=== PATIENT | female | born 1990 | race American Indian/Alaskan Native ===

== ENCOUNTER 2020-01-17 17:58 | Inpatient (IN) | payer OTHER ==
[2020-01-17] MEDS ORDERED: SODIUM CHLORIDE 0.9% 500 ML 500 ML IV ONE (18:25)
[2020-01-17] MEDS ORDERED: ACETAMINOPHEN 325 MG TAB PO ONE (18:28)
[2020-01-17 18:54] LABS: Basophils % (Auto) 0.3 % (0.0-1.8); Hematocrit 39.6 % (30.3-42.9); Hemoglobin 12.7 gm/dl (10.1-14.3); Lymphocytes % (Auto) 9.3 % (13.4-35.0); Mean Corpuscular HGB Conc 32 % (30-34); Mean Corpuscular Volume 81 fl (79-97); Monocytes # (Auto) 0.4 K/mm3 (0.0-0.8); Monocytes % (Auto) 3.7 % (0.0-7.3); Platelet Count 268 K/mm3 (140-440); Red Blood Count 4.92 M/mm3 (3.65-5.03); Red Cell Distribution Width 13.2 % (13.2-15.2)
[2020-01-17 19:08] LABS: Alanine Aminotransferase 26 units/L (7-56); Albumin 4.1 g/dL (3.9-5); BUN/Creatinine Ratio 14; Blood Urea Nitrogen 13 mg/dL (7-17); Calcium 9.5 mg/dL (8.4-10.2); Hemolysis Index 0
[2020-01-17 19:09] LABS: INR 1.22 (0.87-1.13)
--- NOTE | 2020-01-17 19:49 | XRay Report ---
CHEST 2 VIEWS INDICATION / CLINICAL INFORMATION: possible Sepsis. COMPARISON: None available. FINDINGS: SUPPORT DEVICES: None. HEART / MEDIASTINUM: No significant abnormality. LUNGS / PLEURA: There is airspace opacification in the left upper lobe. No pneumothorax. ADDITIONAL FINDINGS: No significant additional findings. IMPRESSION: 1. Airspace opacity in the left upper lobe suggestive of pneumonia. Signer Name: Kolby Denny MD Signed: 01/17/2020 7:45 PM Workstation Name: [id number]
--- NOTE | 2020-01-17 19:49 | XRay Report ---
XR foot 3+V RT INDICATION / CLINICAL INFORMATION: MAIN: wound to big toe, fever, r/o osteomyelitis. COMPARISON: None available. FINDINGS: BONES/JOINT(S): No acute fracture or subluxation. No significant degenerative changes. No radiographi c evidence of osteomyelitis. Developmental accessory navicular noted. SOFT TISSUES: Skin wound in the great toe. No soft tissue gas or radiopaque foreign body. ADDITIONAL FINDINGS: None. Signer Name: Kolby Denny MD Signed: 01/17/2020 7:45 PM Workstation Name: [id number]
[2020-01-17] MEDS ORDERED: SODIUM CHLORIDE 0.9% 500 ML 500 ML ONE (22:01)
[2020-01-17] MEDS ORDERED: ACETAMINOPHEN 325 MG TAB ONE (22:01)
[2020-01-17] MEDS ORDERED: SODIUM CHLORIDE 0.9% 100 ML IVPB IV STA (22:10)
[2020-01-17] MEDS ORDERED: INSULIN REGULAR, HUMAN 100 UNITS/1 ML IV ONE (22:10)
[2020-01-17] MEDS ORDERED: TETANUS,DIPH,PERTUSS(ACELL) VACCINE 0.5 ML SYRINGE IM ONE (22:11)
--- NOTE | 2020-01-17 22:12 | Emergency Department Report ---
ED General Adult HPI - General Chief complaint: Wound/Laceration Stated complaint: SORE UNDER BIG TOE Time Seen by Provider: 01/17/20 22:01 Source: patient, RN notes reviewed Mode of arrival: Ambulatory Limitations: No Limitations - History of Present Illness Initial comments: The patient is a 29-year-old female. She is not known to myself previously. She has a history of morbid obesity and diabetes. She states that she is not today. She presents to the ER today with a complaint of subacute wound to the plantar aspect of her right great toe. She dropped boxes on the toe about a week and a half ago by accident. She was reportedly seen at an outpatient urgent care center, and she came to the ER today for persistent wound. She apparently received antibiotics. She is not sure of her tetanus vaccination status. There is no complaint of headache, neck pain, chest pain, abdominal pain, shortness of breath, fever and/or cough. As far as she knows, she denies exposure to coronavirus positive patients. The wound is constant, minimally painful, does not radiate anywhere, and does not have exacerbating or relieving factors. -: Gradual, days(s) Location: right, lower extremity Severity scale (0 -10): 0 Consistency: constant, other Improves with: other - Related Data Previous Rx's Medication Instructions Recorded Last Taken Type Azithromycin [Zithromax Z-MAGALY] 250 mg PO DAILY 4 Days #4 pkg 09/12/18 Unknown Rx Cetirizine HCl [ZyrTEC] 10 mg PO QAM 14 Days #14 capsule 09/12/18 Unknown Rx Fluticasone [Flonase] 1 spray NS QDAY 14 Days #1 bottle 09/12/18 Unknown Rx traMADoL [Ultram 50 MG tab] 50 mg PO Q6HR PRN #12 tablet 09/12/18 Unknown Rx Allergies Allergy/AdvReac Type Severity Reaction Status Date / Time No Known Allergies Allergy Verified 09/12/18 00:37 ED Review of Systems ROS: Stated complaint: SORE UNDER BIG TOE Other details as noted in HPI Comment: See history of present illness ED Past Medical Hx - Past Medical History Hx Diabetes: Yes Additional medical history: Obesity. Sinusitis - Surgical History Past Surgical History?: No - Social History Smoking Status: Never Smoker Substance Use Type: None - Medications Home Medications: Home Medications Medication Instructions Recorded Confirmed Last Taken Type Azithromycin [Zithromax Z-MAGALY] 250 mg PO DAILY 4 Days #4 pkg 09/12/18 Unknown Rx Cetirizine HCl [ZyrTEC] 10 mg PO QAM 14 Days #14 capsule 09/12/18 Unknown Rx Fluticasone [Flonase] 1 spray NS QDAY 14 Days #1 bottle 09/12/18 Unknown Rx traMADoL [Ultram 50 MG tab] 50 mg PO Q6HR PRN #12 tablet 09/12/18 Unknown Rx ED Physical Exam - General Limitations: No Limitations General appearance: alert, obese - Head Head exam: Present: atraumatic, normocephalic - Eye Eye exam: Present: normal appearance, EOMI. Absent: nystagmus - ENT ENT exam: Present: normal exam, normal orophraynx, mucous membranes moist, normal external ear exam - Neck Neck exam: Present: normal inspection, full ROM. Absent: tenderness, meningi smus - Respiratory Respiratory exam: Present: normal lung sounds bilaterally. Absent: respiratory distress - Cardiovascular Cardiovascular Exam: Present: normal rhythm, tachycardia, normal heart sounds. Absent: systolic murmur, diastolic murmur, rubs, gallop - GI/Abdominal GI/Abdominal exam: Present: soft. Absent: distended, guarding, rebound, rigid, pulsatile mass - Extremities Exam Extremities exam: Present: full ROM, other (2+ pulses noted in the bilateral upper and lower extremities. There is no palpable cord. negative Homans sign. Muscular compartments are soft. The pelvis is stable.). Absent: normal inspection (On the plantar aspect of the right great toe, there is a circumferential wound, approximately 1.5 x 1.5 cm. There is beefy tissue, without surrounding redness, pus or streaking. The toe itself is nontender.), pedal edema, calf tenderness - Back Exam Back exam: Present: normal inspection, full ROM. Absent: CVA tenderness (L), paraspinal tenderness, vertebral tenderness - Neurological Exam Neurological exam: Present: alert, other (There is no facial droop. The tongue is midline. Extraocular movements are intact bilaterally. There is 5 out of 5 strength in bilateral upper and lower extremities. Sensation is intact to light touch bilateral upper and lower extremities. There is a normal gait.). Absent: motor sensory deficit - Psychiatric Psychiatric exam: Present: normal affect, normal mood - Skin Skin exam: Present: warm ED Course Vital Signs 01/17/20 01/17/20 18:27 21:57 Temperature 103.0 F H 103.1 F H Pulse Rate 145 H Respiratory 20 Rate Blood Pressure 169/103 [Right] O2 Sat by Pulse 98 Oximetry - Reevaluation(s) Reevaluation #1: 01/17/20 22:09 Patient is morbidly obese, however, when ideal body weight is calculated, it translates as the followin lbs [place] Body Weight-->77.5643 Therefore, we will use 77.5643 kg as ideal body weight to dose our resuscitation fluid for sepsis. 01/17/20 22:40 ED Medical Decision Making - Lab Data Result diagrams: 01/17/20 18:28 01/17/20 18:28 Vital Signs 01/17/20 01/17/20 18:27 21:57 Temperature 103.0 F H 103.1 F H Pulse Rate 145 H Respiratory 20 Rate Blood Pressure 169/103 [Right] O2 Sat by Pulse 98 Oximetry Lab Results 01/17/20 01/17/20 01/17/20 Range/Units 18:28 18:28 18:28 WBC 11.0 (4.5-11.0) K/mm3 RBC 4.92 (3.65-5.03) M/mm3 Hgb 12.7 (10.1-14.3) gm/dl Hct 39.6 (30.3-42.9) % MCV 81 (79-97) fl MCH 26 L (28-32) pg MCHC 32 (30-34) % RDW 13.2 (13.2-15.2) % Plt Count 268 (140-440) K/mm3 Lymph % (Auto) 9.3 L (13.4-35.0) % Caldwell % (Auto) 3.7 (0.0-7.3) % Eos % (Auto) 0.0 (0.0-4.3) % Baso % (Auto) 0.3 (0.0-1.8) % Lymph # 1.0 L (1.2-5.4) K/mm3 Caldwell # 0.4 (0.0-0.8) K/mm3 Eos # 0.0 (0.0-0.4) K/mm3 Baso # 0.0 (0.0-0.1) K/mm3 Seg Neutrophils % 86.7 H (40.0-70.0) % Seg Neutrophils # 9.6 H (1.8-7.7) K/mm3 PT 15.6 H (12.2-14.9) Sec. INR 1.22 H (0.87-1.13) VBG pH (7.320-7.420) Sodium 126 L (137-145) mmol/L Potassium 4.0 (3.6-5.0) mmol/L Chloride 89.3 L (98-107) mmol/L Carbon Dioxide 19 L (22-30) mmol/L Anion Gap 22 mmol/L BUN 13 (7-17) mg/dL Creatinine 0.9 (0.7-1.2) mg/dL Estimated GFR > 60 ml/min BUN/Creatinine Ratio 14 % Glucose 397 H (65-100) mg/dL Lactic Acid (0.7-2.0) mmol/L Calcium 9.5 (8.4-10.2) mg/dL Total Bilirubin 0.40 (0.1-1.2) mg/dL AST 27 (5-40) units/L ALT 26 (7-56) units/L Alkaline Phosphatase 57 (35-129) units/L Total Protein 9.0 H (6.3-8.2) g/dL Albumin 4.1 (3.9-5) g/dL Albumin/Globulin Ratio 0.8 % 01/17/20 01/17/20 Range/Units 18:28 18:28 WBC (4.5-11.0) K/mm3 RBC (3.65-5.03) M/mm3 Hgb (10.1-14.3) gm/dl Hct (30.3-42.9) % MCV (79-97) fl MCH (28-32) pg MCHC (30-34) % RDW (13.2-15.2) % Plt Count (140-440) K/mm3 Lymph % (Auto) (13.4-35.0) % Caldwell % (Auto) (0.0-7.3) % Eos % (Auto) (0.0-4.3) % Baso % (Auto) (0.0-1.8) % Lymph # (1.2-5.4) K/mm3 Caldwell # (0.0-0.8) K/mm3 Eos # (0.0-0.4) K/mm3 Baso # (0.0-0.1) K/mm3 Seg Neutrophils % (40.0-70.0) % Seg Neutrophils # (1.8-7.7) K/mm3 PT (12.2-14.9) Sec. INR (0.87-1.13) VBG pH 7.409 (7.320-7.420) Sodium (137-145) mmol/L Potassium (3.6-5.0) mmol/L Chloride (98-107) mmol/L Carbon Dioxide (22-30) mmol/L Anion Gap mmol/L BUN (7-17) mg/dL Creatinine (0.7-1.2) mg/dL Estimated GFR ml/min BUN/Creatinine Ratio % Glucose (65-100) mg/dL Lactic Acid 3.40 H* (0.7-2.0) mmol/L Calcium (8.4-10.2) mg/dL Total Bilirubin (0.1-1.2) mg/dL AST (5-40) units/L ALT (7-56) units/L Alkaline Phosphatase (35-129) units/L Total Protein (6.3-8.2) g/dL Albumin (3.9-5) g/dL Albumin/Globulin Ratio % - EKG Data -: EKG Interpreted by De EKG shows normal: sinus rhythm Rate: tachycardia - EKG Data 01/17/20 22:37 Sinus rhythm, tachycardia, QTC prolonged, motion artifact, high left ventricular voltage, poor R wave progression, the EKG is abnormal, it is not a STEMI, there is no prior for comparison - Radiology Data Radiology results: report reviewed, image reviewed Print Report Referring Physician: ED DOC Patient Name: SANGEETHA SHIPMAN Date of : 1990 Sex: Female Report Date: 2020-01-17 Report Status: Finalized Findings [facility] [address] [place] [address] XRay Report Signed Patient: SANGEETHA SHIPMAN MR#: [id number] : 1990 Acct:[id number] Age/Sex: 29 / F ADM Date: 01/17/20 Loc: ED Attending Dr: Ordering Physician: BRITNEY BOCANEGRA Date of Service: 01/17/20 Procedure(s): XR foot 3+V RT Accession Number(s): [id number] cc: BRITNEY BOCANEGRA Fluoro Time In Minutes: XR foot 3+V RT INDICATION / CLINICAL INFORMATION: MAIN: wound to big toe, fever, r/o osteomyelitis. COMPARISON: None available. FINDINGS: BONES/JOINT(S): No acute fracture or subluxation. No significant degenerative changes. No radiographic evidence of osteomyelitis. Developmental accessory navicular noted. SOFT TISSUES: Skin wound in the great toe. No soft tissue gas or radiopaque foreign body. ADDITIONAL FINDINGS: None. Signer Name: Kolby Denny MD Signed: 01/17/2020 7:45 PM Workstation Name: [id number] Transcribed By: FRANKLIN Dictated By: Kolby Denny MD Electronically Authenticated By: Kolby Denny MD Signed Date/Time: 01/17/201944 DD/ 43 T D/TT: Report Date: 2020-01-17 Report Status: Finalized [facility] [address] [place] [address] XRay Report Signed Patient: SANGEETHA SHIPMAN MR#: [id number] : 1990 Acct:[id number] Age/Sex: 29 / F ADM Date: 01/17/20 Loc: ED Attending Dr: Ordering Physician: LORENZO PHILIP MD Date of Service: 01/17/20 Procedure(s): XR chest routine 2V Accession Number(s): [id number] cc: LORENZO PHILIP MD Fluoro Time In Minutes: CHEST 2 VIEWS INDICATION / CLINICAL INFORMATION: possible Sepsis. COMPARISON: None available. FINDINGS: SUPPORT DEVICES: None. HEART / MEDIASTINUM: No significant abnormality. LUNGS / PLEURA: There is airspace opacification in the left upper lobe. No pneumothorax. ADDITIONAL FIND INGS: No significant additional findings. IMPRESSION: 1. Airspace opacity in the left upper lobe suggestive of pneumonia. Signer Name: Kolby Denny MD Signed: 01/17/2020 7:45 PM Workstation Name: [id number] Transcribed By: FRANKLIN Dictated By: Kolby Denny MD Electronically Authenticated By: Kolby Denny MD Signed Date/Time: 01/17/201944 DD/ 44 TD/TT: - Medical Decision Making Differential diagnosis, including but not limited to: Subacute wound, diabetes, dehydration, hyperglycemia, subclinical pneumonia, urinary tract infection, bacteremia Assessment and plan: 29-year-old female with a primary complaint of subacute minimally painful wound to the plantar aspect of the right great toe. The wound itself does not appear to be superinfected. The patient does not endorse additional symptoms. However, she is found to be tachycardic, febrile, laboratory studies sent prior to my evaluation demonstrate hyperglycemia with pseudohyponatremia, minimal anion gap acidosis, and a left-sided pulmonary infiltrate. Given the magnitude of her abnormal vital signs, concomitant diabetes, metabolic derangement, patient meets criteria for hospitalization. We will treat her empirically for community-acquired pneumonia. She does not endorse any sick contacts or exposures to individuals with coronavirus. She is also given a tetanus vaccination. Explained plan of care to patient, who verbalized understanding. Case is presented to hospital physician, Dr. Taylor Zhu, who has accepted the patient to the medical service. Critical Care Time: Yes Critical care time in (mins) excluding proc time.: 35 Critical care attestation.: If time is entered above; I have spent that time in minutes in the direct care of this critically ill patient, excluding procedure time. ED Disposition Clinical Impression: SIRS (systemic inflammatory response syndrome), Hyponatremia, Hyperglycemia, Pneumonia, Open wound of great toe Disposition: OP ADMIT IP TO THIS HOSP Is pt being admited?: Yes Condition: Serious Instructions: Bacterial Pneumonia (ED) Referrals: PRIMARY CARE, [Primary Care Provider] - 3-5 Days
[2020-01-17] MEDS ORDERED: ONDANSETRON 4 MG/2 ML INJ IV PRN (23:06)
[2020-01-17] MEDS ORDERED: DEXTROSE 50% IN WATER (25GM) 50 ML SYRINGE IV PRN (23:06)
[2020-01-17] MEDS ORDERED: MAGNESIUM HYDROXIDE (MOM) ORAL LIQD UDC PO PRN (23:06)
[2020-01-17] MEDS ORDERED: SODIUM CHLORIDE 0.9% IV ONE (23:15)
--- NOTE | 2020-01-17 23:20 | History and Physical Report ---
History of Present Illness Date of examination: 01/17/20 Date of admission: 01/17/2020 Chief complaint: Right great Toe wound History of present illness: 29-year-old female with known history of diabetes mellitus presenting to the emergency room today complaining of pain on the right big toe. Patient had an injury to the right big toe about 2 to 3 weeks ago when an object fell on the toe. She has gone to an urgent care facility where she was given some antibiot ics namely Bactrim to the right big toe wound. She has noticed that the wound has not improved and she has been having progressive pain. She denies any fever or chills, no nausea vomiting, no cough or shortness of breath, no chest pain. She denies any sick contacts and no recent travel. Work-up in the emergency room reveals hyperglycemia chest x-ray also reveals a right-sided pneumonia with accompanying sepsis. Patient started on empiric IV antibiotics. Past History Past Medical History: diabetes Past Surgical History: No surgical history Social history: no significant social history Family history: hypertension (Mother has Hypertension) Medications and Allergies Allergies Allergy/AdvReac Type Severity Reaction Status Date / Time No Known Allergies Allergy Verified 09/12/18 00:37 Home Medications Medication Instructions Recorded Confirmed Last Taken Type glipiZIDE-Metformin 5-500 mg 500 mg PO BID 01/17/20 01/17/20 Unknown History Active Meds: Active Medications Levofloxacin/Dextrose (Levaquin 750mg/150ml) 750 mg in 150 mls @ 100 mls/hr IV ONCE ONE; Protocol Stop: 01/17/20 23:39 Last Admin: 01/17/20 22:38 Dose: 100 mls/hr Documented by: Sodium Chloride (Nacl 0.9% 1000 Ml) 2,350 mls @ 0 mls/hr IV ONCE ONE Stop: 01/17/20 23:16 Review of Systems Constitutional: no fever, no chills Cardiovascular: no chest pain, no palpitations Respiratory: no cough, no shortness of breath Gastrointestinal: no abdominal pain, no nausea, no vomiting, no diarrhea Genitourinary Female: no dysuria, no hematuria Musculoskeletal: other (Pain on great toe) Integumentary: no rash, no pruritis Neurological: no headaches, no confusion Exam - Constitutional Vitals: Temp Pulse Resp BP Pulse Ox 103.1 F H 126 H 37 H 117/84 98 01/17/20 21:57 01/17/20 23:00 01/17/20 23:00 01/17/20 23:00 01/17/20 23:00 General appearance: Present: no acute distress, well-nourished, obese - EENT Eyes: Present: PERRL, EOM intact ENT: hearing intact, clear oral mucosa, dentition normal - Neck Neck: Present: supple, normal ROM - Respiratory Respiratory effort: normal Respiratory: bilateral: CTA - Cardiovascular Rhythm: regular Heart Sounds: Present: S1 & S2 - Extremities Extremities: no ischemia, pulses intact, pulses symmetrical, No edema, Full ROM Extremity abnormal: ulceration (On plantar aspect of right great toe.) Peripheral Pulses: within normal limits - Abdominal General gastrointestinal: Present: soft, non-tender, non-distended - Integumentary Integumentary: Present: clear, warm, dry - Musculoskeletal Musculoskeletal: strength equal bilaterally - Psychiatric Psychiatric: appropriate mood/affect, intact judgment & insight, cooperative - Neurologic Neurologic: CNII-XII intact, moves all extremities Results - Labs CBC & Chem 7: 01/17/20 18:28 01/17/20 18:28 Labs: Abnormal lab results 01/17/20 01/17/20 01/17/20 Range/Units 18:28 18:28 18:28 MCH 26 L (28-32) pg Lymph % (Auto) 9.3 L (13.4-35.0) % Lymph # 1.0 L (1.2-5.4) K/mm3 Seg Neutrophils % 86.7 H (40.0-70.0) % Seg Neutrophils # 9.6 H (1.8-7.7) K/mm3 PT 15.6 H (12.2-14.9) Sec. INR 1.22 H (0.87-1.13) Sodium 126 L (137-145) mmol/L Chloride 89.3 L (98-107) mmol/L Carbon Dioxide 19 L (22-30) mmol/L Glucose 397 H (65-100) mg/dL Lactic Acid (0.7-2.0) mmol/L Total Protein 9.0 H (6.3-8.2) g/dL 01/17/20 Range/Units 18:28 MCH (28-32) pg Lymph % (Auto) (13.4-35.0) % Lymph # (1.2-5.4) K/mm3 Seg Neutrophils % (40.0-70.0) % Seg Neutrophils # (1.8-7.7) K/mm3 PT (12.2-14.9) Sec. INR (0.87-1.13) Sodium (137-145) mmol/L Chloride (98-107) mmol/L Carbon Dioxide (22-30) mmol/L Glucose (65-100) mg/dL Lactic Acid 3.40 H* (0.7-2.0) mmol/L Total Protein (6.3-8.2) g/dL Assessment and Plan - Patient Problems (1) Open wound of great toe Current Visit: Yes Status: Acute Plan to address problem: We will place a consult to wound care team for evaluation and recommendation. X-ray of the foot did not suggest any osteomyelitis. Patient was also given a tetanus injection. Will place patient on empiric IV antibiotics (2) Pneumonia Current Visit: Yes Status: Acute Plan to address problem: Patient placed on empiric IV antibiotics. We await blood culture result. (3) Hyperglycemia Current Visit: Yes Status: Acute Plan to address problem: We will monitor blood glucose closely. We will also placed on IV fluid. (4) Hyponatremia Current Visit: Yes Status: Acute Plan to address problem: Possibly secondary to the hyperglycemia. Will monitor chemistry. We will also continue IV fluid. (5) DVT prophylaxis Current Visit: Yes Status: Acute Plan to address problem: Patient placed on subcutaneous heparin (6) Full code status Current Visit: Yes Status: Acute
[2020-01-17 23:33] LABS: C-Reactive Protein 16.6 mg/dL (0.00-1.30)
[2020-01-17] MEDS ORDERED: SODIUM CHLORIDE 0.9% 100 ML IVPB IV SCH (23:45)
[2020-01-18] MEDS: INSULIN REGULAR, HUMAN 100 UNITS/1 ML SUB-Q SCH ×5 (00:39→23:03)
[2020-01-18] MEDS ORDERED: INSULIN REGULAR, HUMAN 100 UNITS/1 ML ONE (00:39)
[2020-01-18 01:07] LABS: Bilirubin,Urine NEG (Negative); Blood,Urine NEG (Negative); Color,Urine Yellow (Yellow); Hyaline Casts,Urine 1 /LPF; Mucus,Urine FEW /HPF; Urobilinogen,Urine < 2.0 mg/dL (<2.0)
[2020-01-18] MEDS ORDERED: MAGNESIUM SULFATE 2 GM/50 ML BAG IV ONE (01:44)
[2020-01-18] MEDS: ACETAMINOPHEN 325 MG TAB PO PRN ×3 (03:06→23:01)
[2020-01-18] MEDS ORDERED: VANCOMYCIN 2,000 MG in SODIUM CHLORIDE 0.9% 500 ML 500 ML IV SCH ×2 (06:00→18:00)
[2020-01-18] MEDS ORDERED: VANCOMYCIN PHARMACY TO DOSE IV SCH (06:00)
[2020-01-18] MEDS: HEPARIN 5,000 UNIT/1 ML VIAL SUB-Q SCH ×3 (06:28→23:02)
[2020-01-18] MEDS: SODIUM CHLORIDE 0.9% 1000 ML 1,000 ML IV SCH (08:56)
[2020-01-18] MEDS: cefTRIAXone/NS 2 GM/100 ML 2 GM/100 ML BAG IV SCH (09:00)
[2020-01-18] MEDS: AZITHROMYCIN 500 MG in SODIUM CHLORIDE 0.9% 250ML 250 ML IV SCH (09:00)
[2020-01-18 09:05] LABS: BUN/Creatinine Ratio 13; Blood Urea Nitrogen 10 mg/dL (7-17); Calcium 8.4 mg/dL (8.4-10.2); Hemolysis Index 5
[2020-01-18 09:14] LABS: Basophils % (Auto) 0.4 % (0.0-1.8); Eosinophils % (Auto) 0.1 % (0.0-4.3); Hematocrit 33.8 % (30.3-42.9); Lymphocytes # (Auto) 1.2 K/mm3 (1.2-5.4); Lymphocytes % (Auto) 16.6 % (13.4-35.0); Mean Corpuscular HGB Conc 33 % (30-34); Mean Corpuscular Volume 81 fl (79-97); Monocytes # (Auto) 0.2 K/mm3 (0.0-0.8); Monocytes % (Auto) 2.8 % (0.0-7.3); Platelet Count 219 K/mm3 (140-440); Red Blood Count 4.18 M/mm3 (3.65-5.03); Red Cell Distribution Width 12.7 % (13.2-15.2)
--- NOTE | 2020-01-18 13:57 | Progress Note ---
Assessment and Plan /Open wound of great toe, right X-ray of the foot did not suggest any osteomyelitis. Patient was also given a tetanus injection. Continue on empiric IV antibiotics Wound consult requested, will follow culture /Pneumonia, left upper lobe Patient placed on empiric IV antibiotics. We await blood culture result. /Possible sepsis with fever elevated lactic acid Likely from left upper lobe pneumonia and infected right diabetic wound Continue antibiotics for now, will consult ID /Diabetes mellitus type 2 with hyperglycemia We will monitor blood glucose closely. Continue on IV fluid. Place on SSI with regular Accu-Chek / Hyponatremia Possibly secondary to the hyperglycemia. Will monitor chemistry. We will also continue IV fluid. / DVT prophylaxis Patient placed on subcutaneous heparin / Full code status Physical exam: GENERAL: well-developed and obese -[place] female lying on bed appeared to be in no discomfort. HEENT: Normocephalic. Atraumatic. No conjunctival congestion or icterus. Patient has moist mucous membranes. NECK: Supple. Trachea midline. CHEST/LUNGS: Clear to auscultated bilaterally, breathing nonlabored. No wheezes crackles or rhonchi. HEART/CARDIOVASCULAR: Regular in rate and rhythm. S1 and S2 positive. ABDOMEN: Abdomen is soft, nontender. Patient has normal bowel sounds. SKIN: There is no rash. Warm and dry. NEURO: No focal motor deficit. Follows command. MUSCULOSKELETAL: No joint effusion or tenderness. EXTRIMITY: No edema, no cyanosis or clubbing. Right foot with wound dressing PSYCH: Cooperative. Subjective Date of service: 01/18/20 Interval history: Patient seen and examined. Medical records and medication list reviewed. No acute event overnight noted by the RN. Patient denies any chest pain or difficulty breathing. Patient is tolerating diet. Status post wound care today for her diabetes foot Discussed plan of care at bedside with patient. Objective - Constitutional Vitals: Vital Signs - 12hr 01/18/20 01/18/20 01/18/20 02:56 04:06 12:18 Temperature 101.5 F H 99.8 F H 100.7 F H Pulse Rate 108 H 109 H Respiratory 20 22 Rate Blood Pressure 175/92 Blood Pressure 150/89 [Right] O2 Sat by Pulse 98 95 Oximetry - Labs CBC & Chem 7: 01/19/20 13:09 01/18/20 08:30 Labs: Abnormal lab results 03/01/17/20 01/17/20 Range/Units 18:28 18:28 18:28 MCH 26 L (28-32) pg RDW (13.2-15.2) % Lymph % (Auto) 9.3 L (13.4-35.0) % Lymph # 1.0 L (1.2-5.4) K/mm3 Seg Neutrophils % 86.7 H (40.0-70.0) % Seg Neutrophils # 9.6 H (1.8-7.7) K/mm3 PT 15.6 H (12.2-14.9) Sec. INR 1.22 H (0.87-1.13) Sodium 126 L (137-145) mmol/L Chloride 89.3 L (98-107) mmol/L Carbon Dioxide 19 L (22-30) mmol/L Glucose 397 H (65-100) mg/dL POC Glucose (70-105) Hemoglobin A1c (4-6) % Lactic Acid (0.7-2.0) mmol/L Magnesium (1.7-2.3) mg/dL C-Reactive Protein (0.00-1.30) mg/dL Total Protein 9.0 H (6.3-8.2) g/dL 01/17/20 01/17/20 01/17/20 Range/Units 18:28 22:58 22:58 MCH (28-32) pg RDW (13.2-15.2) % Lymph % (Auto) (13.4-35.0) % Lymph # (1.2-5.4) K/mm3 Seg Neutrophils % (40.0-70.0) % Seg Neutrophils # (1.8-7.7) K/mm3 PT (12.2-14.9) Sec. INR (0.87-1.13) Sodium (137-145) mmol/L Chloride (98-107) mmol/L Carbon Dioxide (22-30) mmol/L Glucose (65-100) mg/dL POC Glucose (70-105) Hemoglobin A1c (4-6) % Lactic Acid 3.40 H* 2.30 H* (0.7-2.0) mmol/L Magnesium 1.50 L (1.7-2.3) mg/dL C-Reactive Protein 16.60 H (0.00-1.30) mg/dL Total Protein (6.3-8.2) g/dL 01/18/20 01/18/20 01/18/20 Range/Units 00:46 06:34 08:30 MCH 26 L (28-32) pg RDW 12.7 L (13.2-15.2) % Lymph % (Auto) (13.4-35.0) % Lymph # (1.2-5.4) K/mm3 Seg Neutrophils % 80.1 H (40.0-70.0) % Seg Neutrophils # (1.8-7.7) K/mm3 PT (12.2-14.9) Sec. INR (0.87-1.13) Sodium (137-145) mmol/L Chloride (98-107) mmol/L Carbon Dioxide (22-30) mmol/L Glucose (65-100) mg/dL POC Glucose 338 H 266 H (70-105) Hemoglobin A1c (4-6) % Lactic Acid (0.7-2.0) mmol/L Magnesium (1.7-2.3) mg/dL C-Reactive Protein (0.00-1.30) mg/dL Total Protein (6.3-8.2) g/dL 01/18/20 01/18/20 01/18/20 Range/Units 08:30 08:35 12:30 MCH (28-32) pg RDW (13.2-15.2) % Lymph % (Auto) (13.4-35.0) % Lymph # (1.2-5.4) K/mm3 Seg Neutrophils % (40.0-70.0) % Seg Neutrophils # (1.8-7.7) K/mm3 PT (12.2-14.9) Sec. INR (0.87-1.13) Sodium 135 L D (137-145) mmol/L Chloride (98-107) mmol/L Carbon Dioxide (22-30) mmol/L Glucose 250 H (65-100) mg/dL POC Glucose 224 H 213 H (70-105) Hemoglobin A1c (4-6) % Lactic Acid (0.7-2.0) mmol/L Magnesium (1.7-2.3) mg/dL C-Reactive Protein (0.00-1.30) mg/dL Total Protein (6.3-8.2) g/dL 01/18/20 Range/Units 12:47 MCH (28-32) pg RDW (13.2-15.2) % Lymph % (Auto) (13.4-35.0) % Lymph # (1.2-5.4) K/mm3 Seg Neutrophils % (40.0-70.0) % Seg Neutrophils # (1.8-7.7) K/mm3 PT (12.2-14.9) Sec. INR (0.87-1.13) Sodium (137-145) mmol/L Chloride (98-107) mmol/L Carbon Dioxide (22-30) mmol/L Glucose (65-100) mg/dL POC Glucose (70-105) Hemoglobin A1c 11.6 H (4-6) % Lactic Acid (0.7-2.0) mmol/L Magnesium (1.7-2.3) mg/dL C-Reactive Protein (0.00-1.30) mg/dL Total Protein (6.3-8.2) g/dL
[2020-01-18] MEDS: VANCOMYCIN 2,000 MG in SODIUM CHLORIDE 0.9% 500 ML 500 ML IV SCH (18:33)
[2020-01-18] MEDS: hydrALAZINE 20 MG/1 ML INJ IV PRN (23:02)
[2020-01-19] MEDS: SODIUM CHLORIDE 0.9% 1000 ML 1,000 ML IV SCH ×2 (02:07→13:15)
[2020-01-19] MEDS: VANCOMYCIN 2,000 MG in SODIUM CHLORIDE 0.9% 500 ML 500 ML IV SCH ×2 (06:17→17:33)
[2020-01-19] MEDS: INSULIN REGULAR, HUMAN 100 UNITS/1 ML SUB-Q SCH ×4 (06:17→22:08)
[2020-01-19] MEDS: HEPARIN 5,000 UNIT/1 ML VIAL SUB-Q SCH ×3 (06:18→22:03)
[2020-01-19] MEDS: hydrALAZINE 20 MG/1 ML INJ IV PRN ×3 (06:18→22:30)
[2020-01-19] MEDS: ACETAMINOPHEN 325 MG TAB PO PRN ×4 (09:16→22:05)
[2020-01-19] MEDS: cefTRIAXone/NS 2 GM/100 ML 2 GM/100 ML BAG IV SCH (09:21)
[2020-01-19] MEDS: AZITHROMYCIN 500 MG in SODIUM CHLORIDE 0.9% 250ML 250 ML IV SCH (09:21)
[2020-01-19] MEDS: amLODIPine 10 MG TAB PO SCH (11:53)
[2020-01-19] MEDS: hydrALAZINE 25 MG TAB PO SCH ×2 (13:15→22:06)
--- NOTE | 2020-01-19 14:02 | XRay Report ---
CHEST 1 VIEW INDICATION / CLINICAL INFORMATION: pna. COMPARISON: 01/17/2020 FINDINGS: Exam limited by very low lung volumes and AP, portable technique. No discernible change in heart size . No appreciable pleural fluid. No pneumothorax. Bibasilar atelectatic changes are present, and the d iaphragm is elevated. Left upper lung zone streaky opacity persists without definite change. IMPRESSION: Limited evaluation without definite change in comparison to 01/17/2020. Signer Name: Maico Larios MD Signed: 01/19/2020 1:58 PM Workstation Name: [id number]
[2020-01-19 14:13] LABS: Hematocrit 36.8 % (30.3-42.9); Hemoglobin 11.7 gm/dl (10.1-14.3); Mean Corpuscular HGB Conc 32 % (30-34); Mean Corpuscular Volume 82 fl (79-97); Platelet Count 230 K/mm3 (140-440); Red Blood Count 4.52 M/mm3 (3.65-5.03); Red Cell Distribution Width 13.2 % (13.2-15.2)
--- NOTE | 2020-01-19 15:02 | Progress Note ---
Assessment and Plan /Possible sepsis with high-grade fever elevated lactic acid Likely from left upper lobe pneumonia and infected right diabetic wound Also need to rule out COVID 19 Continue antibiotics for now, consulted ID /COVID -19 rule out -Continue to have high fever with low white count -Discussed with ID and wanted to rule out COVID19 for her -Placed on droplet precaution, ordered influenza test /Open wound of great toe, right X-ray of the foot did not suggest any osteomyelitis. Patient was also given a tetanus injection. Continue on empiric IV antibiotics Wound consult requested, will follow culture /Pneumonia, left upper lobe Patient placed on empiric IV antibiotics. We await blood culture result. /Diabetes mellitus type 2 with hyperglycemia We will monitor blood glucose closely. Continue on IV fluid. Place on SSI with regular Accu-Chek / Hyponatremia Possibly secondary to the hyperglycemia. Will monitor chemistry. We will also continue IV fluid. / DVT prophylaxis Patient placed on subcutaneous heparin / Full code status 01/18 continue to spike high-grade temp, need to rule out covid19, ordered for flu test, consulted ID Physical exam: GENERAL: well-developed and obese -[place] female lying on bed appeared to be in mild discomfort. Appears very lethargic HEENT: Normocephalic. Atraumatic. No conjunctival congestion or icterus. Patient has moist mucous membranes. NECK: Supple. Trachea midline. CHEST/LUNGS: Coarse breath sounds auscultated, breathing slightly labored. Posi tive for Rales, HEART/CARDIOVASCULAR: Regular in rate and rhythm. S1 and S2 positive. ABDOMEN: Abdomen is soft, nontender. Patient has normal bowel sounds. SKIN: There is no rash. Warm and dry. NEURO: No focal motor deficit. Follows command. MUSCULOSKELETAL: No joint effusion or tenderness. EXTRIMITY: No edema, no cyanosis or clubbing. Right foot with wound dressing PSYCH: Cooperative. Subjective Date of service: 01/19/20 Interval history: Patient seen and examined. Medical records and medication list reviewed. No acute event overnight noted by the RN. Patient continued to spike high-grade, discussed with ID Transfer the patient to isolation Discussed plan of care at bedside with patient. Objective - Constitutional Vitals: Vital Signs - 12hr 01/19/20 01/19/20 01/19/20 05:29 09:16 09:34 Temperature 100.8 F H 102.8 F H Pulse Rate 116 H Respiratory 20 18 Rate Blood Pressure 185/104 186/90 O2 Sat by Pulse 92 90 Oximetry 01/19/20 11:38 Temperature 99.7 F H Pulse Rate 117 H Respiratory 20 Rate Blood Pressure 160/93 O2 Sat by Pulse 92 Oximetry - Labs CBC & Chem 7: 01/19/20 13:09 01/18/20 08:30 Labs: Abnormal lab results 01/18/20 01/18/20 01/19/20 Range/Units 16:56 22:03 06:15 MCH (28-32) pg POC Glucose 270 H 239 H 248 H (70-105) 01/19/20 01/19/20 Range/Units 11:48 13:09 MCH 26 L (28-32) pg POC Glucose 268 H (70-105)
[2020-01-19] MEDS: MORPHINE 2 MG/1 ML INJ IV PRN (22:10)
[2020-01-20] MEDS: hydrALAZINE 20 MG/1 ML INJ IV PRN (05:09)
[2020-01-20] MEDS: MORPHINE 2 MG/1 ML INJ IV PRN ×2 (05:10→23:03)
[2020-01-20] MEDS: hydrALAZINE 25 MG TAB PO SCH ×3 (05:11→23:01)
[2020-01-20] MEDS: ACETAMINOPHEN 325 MG TAB PO PRN ×3 (05:12→23:03)
[2020-01-20] MEDS: HEPARIN 5,000 UNIT/1 ML VIAL SUB-Q SCH ×4 (05:12→23:02)
[2020-01-20] MEDS: VANCOMYCIN 2,000 MG in SODIUM CHLORIDE 0.9% 500 ML 500 ML IV SCH ×2 (05:16→23:00)
[2020-01-20] MEDS: INSULIN REGULAR, HUMAN 100 UNITS/1 ML SUB-Q SCH ×4 (09:55→23:04)
[2020-01-20] MEDS: cefTRIAXone/NS 2 GM/100 ML 2 GM/100 ML BAG IV SCH (09:56)
[2020-01-20] MEDS: amLODIPine 10 MG TAB PO SCH (10:00)
[2020-01-20] MEDS: carvediloL 6.25 MG TAB PO SCH ×2 (10:00→23:02)
--- NOTE | 2020-01-20 13:03 | Consultation ---
History of Present Illness - Reason for Consult Consult date: 01/20/20 - History of Present Illness 29-year-old female past medical history diabetes admitted to the hospital with pain in the right great toe. She also prior to the onset of the symptoms she had an object fall on the toe approximately 3 weeks prior to admission. After the development of the wound she went to an urgent care facility and was given Bactrim, however this did not improve the wound at that time and the pain is be en getting worse. She denies any purulent discharge, but does complain of a mild odor coming from the wound. She otherwise denies any shortness of breath, cough, or other symptoms. Persistently febrile, now 101.7 degrees with a white count of 8. She is currently tachycardic. She is currently receiving vancomycin and ceftriaxone. Her influenza test was negative. Imaging personally reviewed: Chest x-ray left upper lobe pneumonia Foot x-ray: No obvious osteomyelitis seen. Review of Systems: Bold if positive, otherwise negative General: fevers, chills, rigors HEENT: visual disturbance, diplopia, eye pain Respiratory: cough, sputum, hemoptysis, shortness of breath Cardiovascular: chest pain, syncope Gastrointestinal: nausea, vomiting, diarrhea, abdominal pain Genitourinary: dysuria, hematuria, flank pain Musculoskeletal: neck pain, back pain, joint pain, edema Neurologic: headaches, seizures Hematologic: easy bruising or bleeding Endocrine: night sweats, acute weight loss Skin: rash, jaundice, redness Psychiatric: suicidal, homicidal ideation Past History Past Medical History: diabetes Past Surgical History: No surgical history Social history: no significant social history Family history: hypertension (Mother has Hypertension) Medications and Allergies Allergies Allergy/AdvReac Type Severity Reaction Status Date / Time No Known Allergies Allergy Verified 09/12/18 00:37 Home Medications Medication Instructions Recorded Confirmed Last Taken Type glipiZIDE-Metformin 5-500 mg 500 mg PO BID 01/17/20 01/17/20 Unknown History Active Meds: Active Medications Acetaminophen (Tylenol) 650 mg PO Q4H PRN PRN Reason: Pain MILD(1-3)/Fever >100.5/COLLINS Last Admin: 01/20/20 05:12 Dose: 650 mg Documented by: Amlodipine Besylate (Amlodipine) 10 mg PO QDAY [facility] Last Admin: 01/20/20 10:00 Dose: 10 mg Documented by: Carvedilol (Coreg) 6.25 mg PO BID [facility] Last Admin: 01/20/20 10:00 Dose: 6.25 mg Documented by: Dextrose (D50w (25gm) Syringe) 0 ml IV Q30MIN PRN; Protocol PRN Reason: Hypoglycemia Heparin Sodium (Porcine) (Heparin) 5,000 unit SUB-Q Q8HR [facility] Last Admin: 01/20/20 05:12 Dose: 5,000 unit Documented by: Hydralazine HCl (Apresoline) 10 mg IV Q6H PRN PRN Reason: Hypertension Last Admin: 01/20/20 05:09 Dose: 10 mg Documented by: Hydralazine HCl (Apresoline) 50 mg PO Q8HR [facility] Last Admin: 01/20/20 05:11 Dose: 50 mg Documented by: Sodium Chloride (Nacl 0.9% 1000 Ml) 1,000 mls @ 125 mls/hr IV DIRECT [facility] Last Admin: 01/19/20 13:15 Dose: 125 mls/hr Documented by: Ceftriaxone Sodium (Rocephin/Ns 2 Gm/100 Ml) 2 gm in 100 mls @ 200 mls/hr IV Q24HR [facility]; Protocol Last Admin: 01/20/20 09:56 Dose: 200 mls/hr Documented by: Vancomycin HCl 2,000 mg/ (Sodium Chloride) 540 mls @ 250 mls/hr IV Q12HR@0600,1800 [facility] Last Admin: 01/20/20 05:16 Dose: 250 mls/hr Documented by: Insulin Human Regular (Humulin R) 0 units SUB-Q ACHS [facility]; Protocol Last Admin: 01/20/20 09:55 Dose: 3 units Documented by: Magnesium Hydroxide (Milk Of Magnesia) 30 ml PO Q4H PRN PRN Reason: Constipation Morphine Sulfate (Morphine) 2 mg IV Q4H PRN PRN Reason: Pain, Moderate (4-6) Last Admin: 01/20/20 05:10 Dose: 2 mg Documented by: Ondansetron HCl (Zofran) 4 mg IV Q8H PRN PRN Reason: Nausea And Vomiting Sodium Chloride (Sodium Chloride Flush Syringe 10 Ml) 10 ml IV BID [facility] Last Admin: 01/20/20 10:01 Dose: Not Given Documented by: Sodium Chloride (Sodium Chloride Flush Syringe 10 Ml) 10 ml IV PRN PRN PRN Reason: LINE FLUSH Physical Examination - Physical Exam Narrative exam: Physical Exam: Constitutional: Alert, cooperative. No acute distress Head, Ears, Nose: Normocephalic, atraumatic. External ears, nose normal Eyes: Conjunctivae/corneas clear. No icterus. No ptosis. Neck: Supple, no meningeal signs Oral: dentition fair, no thrush Cardiovascular: S1, S2 normal. Respiratory: Good air entry, clear to auscultation bilaterally GI: Soft, non-tender; bowel sounds normal. No peritoneal signs. Musculoskeletal: Right hallux wound, left foot callus Skin: No rash or abscess Hem/Lymphatic: No palpable cervical or supraclavicular nodes. No lymphangitis Psych: Mood ok. Affect normal Neurological: Awake, alert, oriented. No gross abnormality - Constitutional Vitals: Vital Signs Temp Pulse Resp BP Pulse Ox 101.7 F H 113 H 24 141/87 92 01/20/20 12:01 01/20/20 12:01 01/20/20 12:01 01/20/20 12:01 01/20/20 12:01 Temperature -Last 24 Hours Temperature 101.7 F Temperature 98.4 F Temperature 100.9 F Temperature 98.1 F Temperature 101.9 F Results - Labs CBC & Chem 7: 01/19/20 13:09 01/18/20 08:30 Labs: Abnormal lab results 01/19/20 01/19/20 01/19/20 Range/Units 13:09 17:44 21:09 MCH 26 L (28-32) pg POC Glucose 214 H 261 H (70-105) 01/20/20 01/20/20 Range/Units 09:03 12:10 MCH (28-32) pg POC Glucose 241 H 284 H (70-105) Assessment and Plan Cultures: Blood culture 01/17/2020 no growth to date Urine culture 01/17/2020 no growth to date A/P: 29-year-old female past medical history diabetes admitted with acute sepsis secondary to right foot wound versus pneumonia. #Acute sepsis: Present with fevers and tachycardia. Secondary to her foot wound versus pneumonia. #COVID-19 rule out: Given her nonresponse to broad-spectrum antibiotics, with a normal white count and persistent fevers with pneumonia on the x-ray and negative flu test, patient should be ruled out for COVID-19. D[address] with Dr. Manzo, who placed her back on contact and droplet precautions. Please ensure DPH survey is filled out. #Pneumonia: Would escalate ceftriaxone to cefepime in light of nonresponse during fevers. #Right foot wound: Would obtain MRI (patient should wear a mask during all transport during COVID-19 rule out) to rule out osteomyelitis or abscess in the toe in light of her ongoing fevers and elevated CRP #Diabetes: tight glycemic control for best outcomes. Recs: -Stop ceftriaxone -Start cefepime 2 g every 8 hours -continue vancomycin dosed per pharmacy -Obtain MRI of the right foot -Continue droplet and contact precautions -Please ensure DPH survey form filled out for COVID-19 rule out, follow-up test results. - Patient may be discharged when medically stable if testing swabs have been obtained. Upon discharge patient should self-quarantine at home until COVID testing returns. If negative, self-quarantine may end. If positive patient should self-quarantine for 14 days from symptom beginning. Public health and infection prevention will follow up with patients to notify them of their test results. Patients should return to hospital regardless if they have worsening fevers or respiratory status. Thank you for the consult, will continue to follow MD [facility] ([facility] M: [phone] O: [phone] F: [phone]
[2020-01-20] MEDS: CEFEPIME/NS 2 GM/100 ML 2 GM/100 ML BAG IV SCH ×2 (14:24→23:01)
[2020-01-20] MEDS: HYDROXYCHLOROQUINE 200 MG TAB PO SCH (14:24)
[2020-01-20] MEDS: SODIUM CHLORIDE 0.9% 1000 ML 1,000 ML IV SCH ×2 (14:29→23:00)
--- NOTE | 2020-01-20 14:32 | Progress Note ---
Assessment and Plan /Possible sepsis with high-grade fever elevated lactic acid Likely from left upper lobe pneumonia and infected right diabetic wound Also need to rule out COVID 19 Continue antibiotics for now, consulted ID /Acute hypoxic respiratory failure Due to underlying pneumonia, continue nebs and supplemental O2 /COVID -19 rule out -Continue to have high fever with low white count -Discussed with ID and wanted to rule out COVID19 for her -Placed on droplet precaution, negative influenza test /Open wound of great toe, right X-ray of the foot did not suggest any osteomyelitis. Patient was also given a tetanus injection. Continue on empiric IV antibiotics Wound consult requested, will follow culture /Pneumonia, left upper lobe Patient placed on empiric IV antibiotics. We await blood culture result. /Diabetes mellitus type 2 with hyperglycemia We will monitor blood glucose closely. Continue on IV fluid. Place on SSI with regular Accu-Chek / Hyponatremia Possibly secondary to the hyperglycemia. Will monitor chemistry. We will also continue IV fluid. / DVT prophylaxis Patient placed on subcutaneous heparin / Full code status 01/18 continue to spike high-grade temp, need to rule out covid19, ordered for flu test, consulted ID 01/19 filled out COVID 19 form, negative flu test, changed IV antibiotics to cefepime and vancomycin. Also started on Plaquenil Physical exam: GENERAL: well-developed and obese -[place] female lying on bed appeared to be in mild discomfort. Appears very lethargic HEENT: Normocephalic. Atraumatic. No conjunctival congestion or icterus. Patient has moist mucous membranes. NECK: Supple. Trachea midline. CHEST/LUNGS: Coarse breath sounds auscultated, breathing slightly labored. Positive for Rales, HEART/CARDIOVASCULAR: Regular in rate and rhythm. S1 and S2 positive. ABDOMEN: Abdomen is soft, nontender. Patient has normal bowel sounds. SKIN: There is no rash. Warm and dry. NEURO: No focal motor deficit. Follows command. MUSCULOSKELETAL: No joint effusion or tenderness. EXTRIMITY: No edema, no cyanosis or clubbing. Right foot with wound dressing PSYCH: Cooperative. Subjective Date of service: 01/20/20 Interval history: Patient seen and examined. Medical records and medication list reviewed. Patient continued to spike high-grade, discussed with ID Discussed plan of care at bedside with patient. Objective - Constitutional Vitals: Vital Signs - 12hr 0301/20/20 01/20/20 04:38 05:09 05:11 Temperature 100.9 F H Pulse Rate 130 H 130 H 130 H Respiratory 22 Rate Blood Pressure 166/94 166/94 Blood Pressure 166/94 [Right] O2 Sat by Pulse 91 Oximetry 01/20/20 01/20/20 01/20/20 05:39 10:00 12:01 Temperature 98.4 F 101.7 F H Pulse Rate 126 H 128 H 113 H Respiratory 18 24 Rate Blood Pressure 151/71 167/90 141/87 Blood Pressure [Right] O2 Sat by Pulse 91 92 Oximetry 01/20/20 13:09 Temperature Pulse Rate 113 H Respiratory Rate Blood Pressure 141/87 Blood Pressure [Right] O2 Sat by Pulse Oximetry - Labs CBC & Chem 7: 01/19/20 13:09 01/18/20 08:30 Labs: Abnormal lab results 01/19/20 01/19/20 01/20/20 Range/Units 17:44 21:09 09:03 POC Glucose 214 H 261 H 241 H (70-105) 01/20/20 Range/Units 12:10 POC Glucose 284 H (70-105)
[2020-01-21] MEDS: HYDROXYCHLOROQUINE 200 MG TAB PO SCH ×2 (02:45→17:01)
[2020-01-21] MEDS: VANCOMYCIN 2,000 MG in SODIUM CHLORIDE 0.9% 500 ML 500 ML IV SCH ×3 (06:12→22:44)
[2020-01-21] MEDS: CEFEPIME/NS 2 GM/100 ML 2 GM/100 ML BAG IV SCH ×3 (06:13→22:44)
[2020-01-21] MEDS: ACETAMINOPHEN 325 MG TAB PO PRN ×2 (06:14→17:39)
[2020-01-21] MEDS: HEPARIN 5,000 UNIT/1 ML VIAL SUB-Q SCH ×3 (06:14→22:42)
[2020-01-21] MEDS: hydrALAZINE 25 MG TAB PO SCH ×3 (06:14→22:43)
[2020-01-21] MEDS: MORPHINE 2 MG/1 ML INJ IV PRN (06:15)
[2020-01-21] MEDS: INSULIN REGULAR, HUMAN 100 UNITS/1 ML SUB-Q SCH ×4 (10:44→22:42)
[2020-01-21] MEDS: amLODIPine 10 MG TAB PO SCH (11:10)
[2020-01-21] MEDS: carvediloL 6.25 MG TAB PO SCH ×2 (11:11→22:43)
[2020-01-21 12:03] LABS: Hematocrit 36.2 % (30.3-42.9); Hemoglobin 11.6 gm/dl (10.1-14.3); Mean Corpuscular HGB Conc 32 % (30-34); Mean Corpuscular Volume 80 fl (79-97); Platelet Count 237 K/mm3 (140-440); Red Cell Distribution Width 13.4 % (13.2-15.2)
[2020-01-21 12:23] LABS: BUN/Creatinine Ratio 14; Blood Urea Nitrogen 10 mg/dL (7-17); Calcium 8.5 mg/dL (8.4-10.2); Hemolysis Index 10
--- NOTE | 2020-01-21 13:27 | Progress Note ---
Assessment and Plan /Sepsis with high-grade fever elevated lactic acid Likely from left upper lobe pneumonia and infected right diabetic wound Also need to rule out COVID 19 Continue antibiotics for now, consulted ID /Acute hypoxic respiratory failure Due to underlying pneumonia, continue nebs and supplemental O2 /COVID -19 rule out -Continue to have high fever with low white count -Discussed with ID and wanted to rule out COVID19 for her -Placed on droplet precaution, negative influenza test /Open wound of great toe, right X-ray of the foot did not suggest any osteomyelitis. Patient was also given a tetanus injection. Continue on empiric IV antibiotics Wound consult requested, MRI ordered- pending /Pneumonia, left upper lobe Patient placed on empiric IV antibiotics. We await blood culture result. /Diabetes mellitus type 2 with hyperglycemia We will monitor blood glucose closely. Continue on IV fluid. Place on SSI with regular Accu-Chek / Hyponatremia Possibly secondary to the hyperglycemia. Will monitor chemistry. We will also continue IV fluid. / DVT prophylaxis Patient placed on subcutaneous heparin / Full code status 01/18 continue to spike high-grade temp, need to rule out covid19, ordered for flu test, consulted ID 01/19 filled out COVID 19 form, negative flu test, changed IV antibiotics to cefepime and vancomycin. Also started on Plaquenil 01/20 spiking fever, COVID 19 result pending, cont plaquenil, pending MRI right foot Physical exam: GENERAL: well-developed and obese -[place] female lying on bed appeared to be in mild discomfort. Appears very lethargic HEENT: Normocephalic. Atraumatic. No conjunctival congestion or icterus. Patient has moist mucous membranes. NECK: Supple. Trachea midline. CHEST/LUNGS: Coarse breath sounds auscultated, breathing slightly labored. Positive for Rales, HEART/CARDIOVASCULAR: Regular in rate and rhythm. S1 and S2 positive. ABDOMEN: Abdomen is soft, nontender. Patient has normal bowel sounds. SKIN: There is no rash. Warm and dry. NEURO: No focal motor deficit. Follows command. MUSCULOSKELETAL: No joint effusion or tenderness. EXTRIMITY: No edema, no cyanosis or clubbing. Right foot with wound dressing PSYCH: Cooperative. Subjective Date of service: 01/21/20 Interval history: Patient seen and examined. Medical records and medication list reviewed. Patient continued to spike high-grade, discussed with ID Discussed plan of care at bedside with patient. pending COVID 19 result Objective - Constitutional Vitals: Vital Signs - 12hr 01/21/20 01/21/20 01/21/20 03:21 05:40 06:14 Temperature 99.7 F H Pulse Rate 116 H 113 H Respiratory 24 Rate Blood Pressure 184/95 184/95 O2 Sat by Pulse 91 93 Oximetry 01/21/20 01/21/20 01/21/20 06:15 10:56 11:08 Temperature 100.1 F H Pulse Rate 115 H Respiratory 20 Rate Blood Pressure 164/95 O2 Sat by Pulse 97 Oximetry 01/21/20 01/21/20 01/21/20 11:10 11:11 12:00 Temperature Pulse Rate 115 H 115 H Respiratory Rate Blood Pressure 164/95 164/95 O2 Sat by Pulse 95 Oximetry 01/21/20 12:15 Temperature 101.0 F H Pulse Rate 102 H Respiratory 22 Rate Blood Pressure 166/89 O2 Sat by Pulse 90 Oximetry - Labs CBC & Chem 7: 01/21/20 11:41 01/21/20 11:41 Labs: Abnormal lab results 01/20/20 01/20/20 01/20/20 Range/Units 17:00 19:43 22:39 MCH (28-32) pg Sodium (137-145) mmol/L Potassium (3.6-5.0) mmol/L Chloride (98-107) mmol/L Carbon Dioxide (22-30) mmol/L Glucose (65-100) mg/dL POC Glucose 272 H 248 H (70-105) Vancomycin Trough 4.0 L (5.0-20.0) ug/mL 01/21/20 01/21/20 01/21/20 Range/Units 09:29 11:41 11:41 MCH 26 L (28-32) pg Sodium 132 L (137-145) mmol/L Potassium 3.5 L (3.6-5.0) mmol/L Chloride 97.0 L (98-107) mmol/L Carbon Dioxide 19 L (22-30) mmol/L Glucose 274 H (65-100) mg/dL POC Glucose 238 H (70-105) Vancomycin Trough (5.0-20.0) ug/mL 01/21/20 Range/Units 12:27 MCH (28-32) pg Sodium (137-145) mmol/L Potassium (3.6-5.0) mmol/L Chloride (98-107) mmol/L Carbon Dioxide (22-30) mmol/L Glucose (65-100) mg/dL POC Glucose 264 H (70-105) Vancomycin Trough (5.0-20.0) ug/mL
--- NOTE | 2020-01-21 14:07 | Progress Note ---
Assessment and Plan Cultures: Blood culture 01/17/2020 no growth to date Urine culture 01/17/2020 no growth to date A/P: 29-year-old female past medical history diabetes admitted with acute sepsis secondary to right foot wound versus pneumonia. #Acute sepsis: Present with fevers and tachycardia. Secondary to her foot wound versus pneumonia. #COVID-19 rule out: Given her nonresponse to broad-spectrum antibiotics, with a normal white count and persistent fevers with pneumonia on the x-ray and negative flu test, patient should be ruled out for COVID-19. [address] with Dr[address] Manzo, who placed her back on contact and droplet precautions. Please ensure DPH survey is filled out. #Pneumonia: Would escalate ceftriaxone to cefepime in light of nonresponse during fevers. #Right foot wound: Would obtain MRI (patient should wear a mask during all transport during COVID-19 rule out) to rule out osteomyelitis or abscess in the toe in light of her ongoing fevers and elevated CRP #Diabetes: tight glycemic control for best outcomes. Recs: -Continue cefepime 2 g every 8 hours -continue vancomycin dosed per pharmacy -Obtain MRI of the right foot - pending COVID test results -Continue droplet and contact precautions -Please ensure DPH survey form filled out for COVID-19 rule out, follow-up test results. -She is still fevering despite broad spectrum antibiotics, furthering my clinical suspicion of COVID-19. She lacks significant risk factors for TB at 29 years old without significant travel. - Patient may be discharged when medically stable if testing swabs have been obtained. Upon discharge patient should self-quarantine at home until COVID testing returns. If negative, self-quarantine may end. If positive patient should self-quarantine for 14 days from symptom beginning. Public health and infection prevention will follow up with patients to notify them of their test results. Patients should return to hospital regardless if they have worsening fevers or respiratory status. Thank you for the consult, will continue to follow Yuki Beltrán MD [facility] ([facility] M: [phone] O: [phone] F: [phone] Subjective Date of service: 01/21/20 Interval history: Continues to be febrile with a normal white count. Reports some shortness of breath. Objective - Exam Narrative Exam: Physical Exam: Constitutional: Alert, cooperative. No acute distress Eyes: Conjunctivae/corneas clear. No icterus. No ptosis. Neck: Supple, no meningeal signs Oral: dentition fair, no thrush Cardiovascular: S1, S2 normal. Respiratory: Good air entry, clear to auscultation bilaterally GI: Soft, non-tender; bowel sounds normal. No peritoneal signs. Musculoskeletal: Right hallux wound, left foot callus Skin: No rash or abscess Hem/Lymphatic: No palpable cervical or supraclavicular nodes. No lymphangitis Psych: Mood ok. Affect normal Neurological: Awake, alert, oriented. No gross abnormality - Constitutional Vitals: Vital Signs Temp Pulse Resp BP Pulse Ox 101.0 F H 102 H 22 166/89 90 01/21/20 12:15 01/21/20 12:15 01/21/20 12:15 01/21/20 12:15 01/21/20 12:15 Temperature -Last 24 Hours Temperature 101.0 F Temperature 100.1 F Temperature 99.7 F Temperature 101.1 F Temperature 99.8 F - Labs CBC & Chem 7: 01/21/20 11:41 01/21/20 11:41 Labs: Abnormal lab results 01/20/20 01/20/20 01/20/20 Range/Units 17:00 19:43 22:39 MCH (28-32) pg Sodium (137-145) mmol/L Potassium (3.6-5.0) mmol/L Chloride (98-107) mmol/L Carbon Dioxide (22-30) mmol/L Glucose (65-100) mg/dL POC Glucose 272 H 248 H (70-105) Vancomycin Trough 4.0 L (5.0-20.0) ug/mL 01/21/20 01/21/20 01/21/20 Range/Units 09:29 11:41 11:41 MCH 26 L (28-32) pg Sodium 132 L (137-145) mmol/L Potassium 3.5 L (3.6-5.0) mmol/L Chloride 97.0 L (98-107) mmol/L Carbon Dioxide 19 L (22-30) mmol/L Glucose 274 H (65-100) mg/dL POC Glucose 238 H (70-105) Vancomycin Trough (5.0-20.0) ug/mL 01/21/20 Range/Units 12:27 MCH (28-32) pg Sodium (137-145) mmol/L Potassium (3.6-5.0) mmol/L Chloride (98-107) mmol/L Carbon Dioxide (22-30) mmol/L Glucose (65-100) mg/dL POC Glucose 264 H (70-105) Vancomycin Trough (5.0-20.0) ug/mL
[2020-01-21] MEDS: SODIUM CHLORIDE 0.9% 1000 ML 1,000 ML IV SCH (17:39)
[2020-01-22] MEDS: ACETAMINOPHEN 325 MG TAB PO PRN ×2 (00:22→06:15)
[2020-01-22] MEDS: HYDROXYCHLOROQUINE 200 MG TAB PO SCH ×3 (01:41→14:00)
[2020-01-22] MEDS: hydrALAZINE 25 MG TAB PO SCH ×3 (06:16→21:58)
[2020-01-22] MEDS: VANCOMYCIN 2,000 MG in SODIUM CHLORIDE 0.9% 500 ML 500 ML IV SCH ×3 (06:16→21:58)
[2020-01-22] MEDS: CEFEPIME/NS 2 GM/100 ML 2 GM/100 ML BAG IV SCH ×3 (06:17→21:57)
[2020-01-22] MEDS: HEPARIN 5,000 UNIT/1 ML VIAL SUB-Q SCH ×3 (06:23→21:57)
[2020-01-22] MEDS ORDERED: carvediloL 6.25 MG TAB PO SCH (08:34)
[2020-01-22] MEDS: INSULIN NPH/REGULAR 70/30 INJ SUB-Q SCH ×2 (09:30→17:36)
[2020-01-22] MEDS: carvediloL 12.5 MG TAB PO SCH ×2 (09:55→21:56)
[2020-01-22] MEDS: INSULIN REGULAR, HUMAN 100 UNITS/1 ML SUB-Q SCH ×4 (09:55→21:57)
[2020-01-22] MEDS: amLODIPine 10 MG TAB PO SCH (11:00)
--- NOTE | 2020-01-22 13:16 | Progress Note ---
Assessment and Plan Cultures: Blood culture 01/17/2020 no growth to date Urine culture 01/17/2020 no growth to date A/P: 29-year-old female past medical history diabetes admitted with acute sepsis secondary to right foot wound versus pneumonia. #Acute sepsis: Present with fevers and tachycardia. Secondary to her foot wound versus pneumonia. #COVID-19 rule out: Given her nonresponse to broad-spectrum antibiotics, with a normal white count and persistent fevers with pneumonia on the x-ray and negative flu test, patient should be ruled out for COVID-19. Discuss[address] with Dr[address] Manzo, who placed her back on contact and droplet precautions. Please ensure [facility] survey is filled out. #Pneumonia: Would escalate ceftriaxone to cefepime in light of nonresponse during fevers. #Right foot wound: Would obtain MRI (patient should wear a mask during all transport during COVID-19 rule out) to rule out osteomyelitis or abscess in the toe in light of her ongoing fevers and elevated CRP #Diabetes: tight glycemic control for best outcomes. Recs: -Continue cefepime 2 g every 8 hours -continue vancomycin dosed per pharmacy -Obtain MRI of the right foot - pending COVID test results. Given high concern for COVID-19, ok to defer for now. -Continue droplet and contact precautions -Follow up [facility] for test results for COVID-19 -She is still fevering despite broad spectrum antibiotics, furthering my clinical suspicion of COVID-19. She lacks significant risk factors for TB at 29 years old without significant travel. - Patient may be discharged when medically stable if testing swabs have been obtained. Upon discharge patient should self-quarantine at home until COVID testing returns. If negative, self-quarantine may end. If positive patient should self-quarantine for 14 days from symptom beginning. Public health and infection prevention will follow up with patients to notify them of their test results. Patients should return to hospital regardless if they have worsening fevers or respiratory status. Thank you for the consult, will continue to follow MD [facility] M: [phone] O: [phone] F: [phone] Subjective Date of service: 01/22/20 Interval history: Remains febrile despite broad spectrum antibiotics. Normal white count. Objective - Exam Narrative Exam: Physical Exam: Constitutional: Alert, cooperative. No acute distress Neck: Supple, no meningeal signs Oral: dentition fair, no thrush Cardiovascular: S1, S2 normal. Respiratory: Good air entry, clear to auscultation bilaterally GI: Soft, non-tender; bowel sounds normal. No peritoneal signs. Musculoskeletal: Right hallux wound, left foot callus Skin: No rash or abscess Hem/Lymphatic: No palpable cervical or supraclavicular nodes. No lymphangitis Psych: Mood ok. Affect normal Neurological: Awake, alert, oriented. No gross abnormality - Constitutional Vitals: Vital Signs Temp Pulse Resp BP Pulse Ox 100.0 F H 110 H 36 H 172/91 85 01/22/20 04:23 01/22/20 06:16 01/22/20 04:23 01/22/20 06:16 01/22/20 04:23 Temperature -Last 24 Hours Temperature 100.0 F Temperature 100.2 F Temperature 102.2 F - Labs CBC & Chem 7: 01/21/20 11:41 01/21/20 11:41 Labs: Abnormal lab results 01/21/20 01/21/20 01/22/20 Range/Units 16:55 22:39 09:05 POC Glucose 261 H 243 H 258 H (70-105) 01/22/20 Range/Units 12:57 POC Glucose 252 H (70-105)
--- NOTE | 2020-01-22 15:37 | Progress Note ---
Assessment and Plan /Sepsis with high-grade fever elevated lactic acid Likely from left upper lobe pneumonia and infected right diabetic wound Also need to rule out COVID 19 Continue antibiotics for now, consulted ID /Acute hypoxic respiratory failure Due to underlying pneumonia, continue nebs and supplemental O2 Patient currently on 100% FiO2 /COVID -19 rule out -Continue to have high fever with low white count -Discussed with ID and wanted to rule out COVID19 for her -Placed on droplet precaution, negative influenza test /Open wound of great toe, right X-ray of the foot did not suggest any osteomyelitis. Patient was also given a tetanus injection. Continue on empiric IV antibiotics Wound consult requested, MRI ordered- pending /Hypertension, uncontrolled Continue current medication, continue to adjust medications to keep systolic blood pressure less than 160 /Pneumonia, left upper lobe Patient placed on empiric IV antibiotics. Negative blood culture result. /Diabetes mellitus type 2 with hyperglycemia We will monitor blood glucose closely. Continue on IV fluid. Place on SSI with regular Accu-Chek / Hyponatremia Possibly secondary to the hyperglycemia. Will monitor chemistry. We will also continue IV fluid. / DVT prophylaxis Patient placed on subcutaneous heparin / Full code status 01/18 continue to spike high-grade temp, need to rule out covid19, ordered for flu test, consulted ID 01/19 filled out COVID 19 form, negative flu test, changed IV antibiotics to cefepime and vancomycin. Also started on Plaquenil 01/20 spiking fever, COVID 19 result pending, cont plaquenil, pending MRI right foot 01/21 refusing Plaquenil as she developed a rash, oxygen requirement increased to 100% FiO2, consulted pulmonary, pending covid 19 result. Pending MRI right foot The high probability of a clinically significant, sudden or life threatening deterioration of the [respiratory] system(s) required my full and direct attention, intervention and personal management. The aggregate critical care time was [] minutes. This time is in addition to time spent performing reported procedures but includes the following: [x] Data Review and interpretation [x] Patient assessment and monitoring of vital signs [x] Documentation [x] Medication orders and management Physical exam: GENERAL: well-developed and obese -[place] female lying on bed appeared to be in mild discomfort. Appears very lethargic HEENT: Normocephalic. Atraumatic. No conjunctival congestion or icterus. Patient has moist mucous membranes. NECK: Supple. Trachea midline. CHEST/LUNGS: Coarse breath sounds auscultated, breathing slightly labored. Positive for Rales, HEART/CARDIOVASCULAR: Regular in rate and rhythm. S1 and S2 positive. ABDOMEN: Abdomen is soft, nontender. Patient has normal bowel sounds. SKIN: Positive rash on her right thigh. Warm and dry. NEURO: No focal motor deficit. Follows command. MUSCULOSKELETAL: No joint effusion or tenderness. EXTRIMITY: No edema, no cyanosis or clubbing. Right foot with wound dressing PSYCH: Cooperative. Subjective Date of service: 01/22/20 Interval history: Patient seen and examined. Medical records and medication list reviewed. Patient continued to spike high-grade fever, developed a rash on her right thigh and the sweats she is refusing to take Plaquenil Discussed plan of care at bedside with patient. pending COVID 19 result, patient placed on 100% FiO2 Objective - Constitutional Vitals: Vital Signs - 12hr 01/22/20 01/22/20 01/22/20 04:23 06:16 11:52 Temperature 100.0 F H 98.5 F Pulse Rate 110 H 110 H 100 H Respiratory 36 H 22 Rate Blood Pressure 172/91 172/91 148/74 O2 Sat by Pulse 85 90 Oximetry - Labs CBC & Chem 7: 01/21/20 11:41 01/23/20 10:36 Labs: Abnormal lab results 01/21/20 01/21/20 01/22/20 Range/Units 16:55 22:39 09:05 POC Glucose 261 H 243 H 258 H (70-105) 01/22/20 Range/Units 12:57 POC Glucose 252 H (70-105)
[2020-01-22] MEDS: MORPHINE 2 MG/1 ML INJ IV PRN ×2 (17:36→21:58)
[2020-01-22] MEDS: SODIUM CHLORIDE 0.9% 1000 ML 1,000 ML IV SCH (17:38)
[2020-01-22] MEDS: hydrALAZINE 20 MG/1 ML INJ IV PRN (18:43)
--- NOTE | 2020-01-22 21:05 | Consultation ---
History of Present Illness Consult date: 01/22/20 Requesting physician: LICHA ALLISON Reason for consult: pneumonia (R/O COVID-19) History of present illness: PCCM CONSULT NOTE (Full dictation # [id number]) Please see dictated notes for full details Past History Past Medical History: diabetes Past Surgical History: No surgical history Social history: no significant social history Family history: hypertension (Mother has Hypertension) Medications and Allergies Allergies Allergy/AdvReac Type Severity Reaction Status Date / Time No Known Allergies Allergy Verified 09/12/18 00:37 Home Medications Medication Instructions Recorded Confirmed Last Taken Type glipiZIDE-Metformin 5-500 mg 500 mg PO BID 01/17/20 01/17/20 Unknown History Active Meds: Active Medications Acetaminophen (Tylenol) 650 mg PO Q4H PRN PRN Reason: Pain MILD(1-3)/Fever >100.5/COLLINS Last Admin: 01/22/20 06:15 Dose: 650 mg Documented by: Amlodipine Besylate (Amlodipine) 10 mg PO QDAY [facility] Last Admin: 01/22/20 11:00 Dose: 10 mg Documented by: Carvedilol (Coreg) 12.5 mg PO BID [facility] Last Admin: 01/22/20 09:55 Dose: 12.5 mg Documented by: Dextrose (D50w (25gm) Syringe) 0 ml IV Q30MIN PRN; Protocol PRN Reason: Hypoglycemia Heparin Sodium (Porcine) (Heparin) 5,000 unit SUB-Q Q8HR [facility] Last Admin: 01/22/20 13:32 Dose: 5,000 unit Documented by: Hydralazine HCl (Apresoline) 10 mg IV Q6H PRN PRN Reason: Hypertension Last Admin: 01/22/20 18:43 Dose: 10 mg Documented by: Hydralazine HCl (Apresoline) 50 mg PO Q8HR [facility] Last Admin: 01/22/20 13:32 Dose: 50 mg Documented by: Hydroxychloroquine Sulfate (Plaquenil) 200 mg PO Q12H [facility] Stop: 01/25/20 13:59 Last Admin: 01/22/20 14:00 Dose: Not Given Documented by: Sodium Chloride (Nacl 0.9% 1000 Ml) 1,000 mls @ 125 mls/hr IV DIRECT [facility] Last Admin: 01/22/20 17:38 Dose: 125 mls/hr Documented by: Cefepime HCl (Cefepime/Ns 2 Gm/100 Ml) 2 gm in 100 mls @ 200 mls/hr IV Q8HR [facility]; Protocol Last Admin: 01/22/20 13:30 Dose: 200 mls/hr Documented by: Vancomycin HCl 2,000 mg/ (Sodium Chloride) 540 mls @ 250 mls/hr IV Q8HR [facility] Last Admin: 01/22/20 15:32 Dose: 250 mls/hr Documented by: Insulin Human Isoph/Insulin Regular (Humulin 70/30) 8 unit SUB-Q BIDDIAB [facility] Last Admin: 01/22/20 17:36 Dose: 8 unit Documented by: Insulin Human Regular (Humulin R) 0 units SUB-Q ACHS [facility]; Protocol Last Admin: 01/22/20 17:35 Dose: 6 units Documented by: Magnesium Hydroxide (Milk Of Magnesia) 30 ml PO Q4H PRN PRN Reason: Constipation Morphine Sulfate (Morphine) 2 mg IV Q4H PRN PRN Reason: Pain, Moderate (4-6) Last Admin: 01/22/20 17:36 Dose: 2 mg Documented by: Ondansetron HCl (Zofran) 4 mg IV Q8H PRN PRN Reason: Nausea And Vomiting Sodium Chloride (Sodium Chloride Flush Syringe 10 Ml) 10 ml IV BID [facility] Last Admin: 01/22/20 09:56 Dose: 10 ml Documented by: Sodium Chloride (Sodium Chloride Flush Syringe 10 Ml) 10 ml IV PRN PRN PRN Reason: LINE FLUSH Physical Examination Vital signs: Vital Signs Temp Pulse Resp BP Pulse Ox 103.0 F H 145 H 20 169/103 98 01/17/20 18:27 01/17/20 18:27 01/17/20 18:27 01/17/20 18:27 01/17/20 18:27 Results - Laboratory Findings CBC and BMP: 01/21/20 11:41 01/23/20 10:36 PT/INR, D-dimer PT 15.6 Sec. (12.2-14.9) H 01/17/20 18:28 INR 1.22 (0.87-1.13) H 01/17/20 18:28 Abnormal lab findings: Abnormal Labs 03/19/20 03/19/20 03/19/20 18:28 18:28 18:28 MCH 26 L RDW Lymph % (Auto) 9.3 L Lymph # 1.0 L Seg Neutrophils % 86.7 H Seg Neutrophils # 9.6 H PT 15.6 H INR 1.22 H Sodium 126 L Potassium Chloride 89.3 L Carbon Dioxide 19 L Glucose 397 H POC Glucose Hemoglobin A1c Lactic Acid Magnesium C-Reactive Protein Total Protein 9.0 H Vancomycin Trough 01/17/20 01/17/20 01/17/20 18:28 22:58 22:58 MCH RDW Lymph % (Auto) Lymph # Seg Neutrophils % Seg Neutrophils # PT INR Sodium Potassium Chloride Carbon Dioxide Glucose POC Glucose Hemoglobin A1c Lactic Acid 3.40 H* 2.30 H* Magnesium 1.50 L C-Reactive Protein 16.60 H Total Protein Vancomycin Trough 01/18/20 01/18/20 01/18/20 00:46 06:34 08:30 MCH 26 L RDW 12.7 L Lymph % (Auto) Lymph # Seg Neutrophils % 80.1 H Seg Neutrophils # PT INR Sodium Potassium Chloride Carbon Dioxide Glucose POC Glucose 338 H 266 H Hemoglobin A1c Lactic Acid Magnesium C-Reactive Protein Total Protein Vancomycin Trough 01/18/20 01/18/20 01/18/20 08:30 08:35 12:30 MCH RDW Lymph % (Auto) Lymph # Seg Neutrophils % Seg Neutrophils # PT INR Sodium 135 L D Potassium Chloride Carbon Dioxide Glucose 250 H POC Glucose 224 H 213 H Hemoglobin A1c Lactic Acid Magnesium C-Reactive Protein Total Protein Vancomycin Trough 01/18/20 01/18/20 01/18/20 12:47 16:56 22:03 MCH RDW Lymph % (Auto) Lymph # Seg Neutrophils % Seg Neutrophils # PT INR Sodium Potassium Chloride Carbon Dioxide Glucose POC Glucose 270 H 239 H Hemoglobin A1c 11.6 H Lactic Acid Magnesium C-Reactive Protein Total Protein Vancomycin Trough 01/19/20 01/19/20 01/19/20 06:15 11:48 13:09 MCH 26 L RDW Lymph % (Auto) Lymph # Seg Neutrophils % Seg Neutrophils # PT INR Sodium Potassium Chloride Carbon Dioxide Glucose POC Glucose 248 H 268 H Hemoglobin A1c Lactic Acid Magnesium C-Reactive Protein Total Protein Vancomycin Trough 01/19/20 01/19/20 01/20/20 17:44 21:09 09:03 MCH RDW Lymph % (Auto) Lymph # Seg Neutrophils % Seg Neutrophils # PT INR Sodium Potassium Chloride Carbon Dioxide Glucose POC Glucose 214 H 261 H 241 H Hemoglobin A1c Lactic Acid Magnesium C-Reactive Protein Total Protein Vancomycin Trough 01/20/20 01/20/20 01/20/20 12:10 17:00 19:43 MCH RDW Lymph % (Auto) Lymph # Seg Neutrophils % Seg Neutrophils # PT INR Sodium Potassium Chloride Carbon Dioxide Glucose POC Glucose 284 H 272 H Hemoglobin A1c Lactic Acid Magnesium C-Reactive Protein Total Protein Vancomycin Trough 4.0 L 01/20/20 01/21/20 01/21/20 22:39 09:29 11:41 MCH 26 L RDW Lymph % (Auto) Lymph # Seg Neutrophils % Seg Neutrophils # PT INR Sodium Potassium Chloride Carbon Dioxide Glucose POC Glucose 248 H 238 H Hemoglobin A1c Lactic Acid Magnesium C-Reactive Protein Total Protein Vancomycin Trough 01/21/20 01/21/20 01/21/20 11:41 12:27 16:55 MCH RDW Lymph % (Auto) Lymph # Seg Neutrophils % Seg Neutrophils # PT INR Sodium 132 L Potassium 3.5 L Chloride 97.0 L Carbon Dioxide 19 L Glucose 274 H POC Glucose 264 H 261 H Hemoglobin A1c Lactic Acid Magnesium C-Reactive Protein Total Protein Vancomycin Trough 01/21/20 01/22/20 01/22/20 22:39 09:05 12:57 MCH RDW Lymph % (Auto) Lymph # Seg Neutrophils % Seg Neutrophils # PT INR Sodium Potassium Chloride Carbon Dioxide Glucose POC Glucose 243 H 258 H 252 H Hemoglobin A1c Lactic Acid Magnesium C-Reactive Protein Total Protein Vancomycin Trough 01/22/20 17:14 MCH RDW Lymph % (Auto) Lymph # Seg Neutrophils % Seg Neutrophils # PT INR Sodium Potassium Chloride Carbon Dioxide Glucose POC Glucose 306 H Hemoglobin A1c Lactic Acid Magnesium C-Reactive Protein Total Protein Vancomycin Trough
[2020-01-23] MEDS: HYDROXYCHLOROQUINE 200 MG TAB PO SCH ×2 (03:35→14:24)
[2020-01-23] MEDS: MORPHINE 2 MG/1 ML INJ IV PRN ×3 (05:09→22:35)
[2020-01-23] MEDS: hydrALAZINE 25 MG TAB PO SCH ×3 (05:09→22:34)
[2020-01-23] MEDS: CEFEPIME/NS 2 GM/100 ML 2 GM/100 ML BAG IV SCH ×3 (05:09→22:38)
[2020-01-23] MEDS: HEPARIN 5,000 UNIT/1 ML VIAL SUB-Q SCH ×3 (05:10→22:33)
[2020-01-23] MEDS: amLODIPine 10 MG TAB PO SCH (10:02)
[2020-01-23] MEDS: carvediloL 12.5 MG TAB PO SCH (10:03)
[2020-01-23] MEDS: SODIUM CHLORIDE 0.9% 1000 ML 1,000 ML IV SCH (10:05)
[2020-01-23] MEDS: INSULIN NPH/REGULAR 70/30 INJ SUB-Q SCH ×2 (10:07→17:31)
[2020-01-23 11:42] LABS: BUN/Creatinine Ratio 17; Blood Urea Nitrogen 12 mg/dL (7-17); Calcium 8.3 mg/dL (8.4-10.2); Hemolysis Index 4
--- NOTE | 2020-01-23 11:49 | Progress Note ---
Assessment and Plan /Sepsis with high-grade fever elevated lactic acid Likely from left upper lobe pneumonia and infected right diabetic wound Also need to rule out COVID 19 Continue antibiotics for now, consulted ID /Acute hypoxic respiratory failure Due to underlying pneumonia, continue nebs and supplemental O2 Patient currently on 80% FiO2 /COVID -19 rule out -Continue to have high fever with low white count -Discussed with ID and wanted to rule out COVID19 for her -Placed on droplet precaution, negative influenza test /Open wound of great toe, right X-ray of the foot did not suggest any osteomyelitis. Patient was also given a tetanus injection. Continue on empiric IV antibiotics Wound consult requested, MRI ordered- pending /Hypertension, uncontrolled Continue current medication, continue to adjust medications to keep systolic blood pressure less than 160 /Pneumonia, left upper lobe Patient placed on empiric IV antibiotics. Negative blood culture result. /Diabetes mellitus type 2 with hyperglycemia We will monitor blood glucose closely. Continue on IV fluid. Place on SSI with regular Accu-Chek / Hyponatremia Possibly secondary to the hyperglycemia. Will monitor chemistry. We will also continue IV fluid. / DVT prophylaxis Patient placed on subcutaneous heparin / Full code status 01/18 continue to spike high-grade temp, need to rule out covid19, ordered for flu test, consulted ID 01/19 filled out COVID 19 form, negative flu test, changed IV antibiotics to cefepime and vancomycin. Also started on Plaquenil 01/20 spiking fever, COVID 19 result pending, cont plaquenil, pending MRI right foot 01/21 refusing Plaquenil as she developed a rash, oxygen requirement increased to 100% FiO2, consulted pulmonary, pending covid 19 result. Pending MRI right foot 01/22 patient on 80% FiO2 today. The high probability of a clinically significant, sudden or life threatening deterioration of the [respiratory] system(s) required my full and direct attention, intervention and personal management. The aggregate critical care t clay was [] minutes. This time is in addition to time spent performing reported procedures but includes the following: [x] Data Review and interpretation [x] Patient assessment and monitoring of vital signs [x] Documentation [x] Medication orders and management Physical exam: GENERAL: well-developed and obese -[place] female lying on bed appeared to be in mild discomfort. Appears very lethargic HEENT: Normocephalic. Atraumatic. No conjunctival congestion or icterus. Patient has moist mucous membranes. NECK: Supple. Trachea midline. CHEST/LUNGS: Coarse breath sounds auscultated, breathing slightly labored. Positive for Rales, HEART/CARDIOVASCULAR: Regular in rate and rhythm. S1 and S2 positive. ABDOMEN: Abdomen is soft, nontender. Patient has normal bowel sounds. SKIN: Positive rash on her right/left thigh. Warm and dry. NEURO: No focal motor deficit. Follows command. MUSCULOSKELETAL: No joint effusion or tenderness. EXTRIMITY: No edema, no cyanosis or clubbing. Right foot with wound dressing PSYCH: Cooperative. Subjective Date of service: 01/23/20 Interval history: Patient seen and examined. Medical records and medication list reviewed. Patient continued to spike high-grade fever, developed a rash on her right thigh and the sweats she is refusing to take Plaquenil Discussed plan of care at bedside with patient. pending COVID 19 result, patient now on placed on 80% FiO2 Objective - Constitutional Vitals: Vital Signs - 12hr 01/23/20 01/23/20 01/23/20 00:40 02:00 04:29 Temperature 100.0 F H Pulse Rate 88 108 H Respiratory 32 H Rate Blood Pressure 154/68 Blood Pressure 158/84 [Right] O2 Sat by Pulse 88 92 Oximetry 01/23/20 01/23/20 01/23/20 09:46 11:03 11:07 Temperature 98.7 F Pulse Rate 119 H 94 H Respiratory 18 24 Rate Blood Pressure 167/98 151/83 Blood Pressure [Right] O2 Sat by Pulse 97 97 97 Oximetry - Labs CBC & Chem 7: 01/21/20 11:41 01/24/20 06:03 Labs: Abnormal lab results 01/22/20 01/22/20 01/22/20 Range/Units 12:57 17:14 21:30 Potassium (3.6-5.0) mmol/L Carbon Dioxide (22-30) mmol/L Glucose (65-100) mg/dL POC Glucose 252 H 306 H 217 H (70-105) Calcium (8.4-10.2) mg/dL 01/23/20 01/23/20 01/23/20 Range/Units 09:03 10:36 11:12 Potassium 3.0 L (3.6-5.0) mmol/L Carbon Dioxide 21 L (22-30) mmol/L Glucose 266 H (65-100) mg/dL POC Glucose 156 H 244 H (70-105) Calcium 8.3 L (8.4-10.2) mg/dL
[2020-01-23] MEDS ORDERED: carvediloL 12.5 MG TAB PO SCH (11:50)
[2020-01-23] MEDS ORDERED: carvediloL 12.5 MG TAB PO ONE (13:00)
[2020-01-23] MEDS: INSULIN REGULAR, HUMAN 100 UNITS/1 ML SUB-Q SCH ×4 (13:24→22:59)
[2020-01-23] MEDS: VANCOMYCIN 2,000 MG in SODIUM CHLORIDE 0.9% 500 ML 500 ML IV SCH ×2 (14:00→23:41)
[2020-01-23] MEDS ORDERED: POTASSIUM CHLORIDE 20 MEQ PACKET FEEDTUBE ONE (15:00)
[2020-01-23] MEDS ORDERED: POTASSIUM CHLORIDE ER 20 MEQ TAB PO ONE (15:00)
--- NOTE | 2020-01-23 21:14 | Progress Note ---
Assessment and Plan Severe Sepsis Left upper lobe pneumonia Diabetes II Morbid obesity Febrile illness R/O COVID-19 infection Diabetic foot ulcer Hyponatremia Lactic acidosis - prn CXR's - prn BIPAP (as a bridge to possible intubation) - continue HFNC via vapotherm system - continue contact and droplet precautions while awaiting Covid result - continue to wean supplemental oxygen to keep O2 sats > 90% - continue Bronchodilators (JURGEN) with pulm hygiene per RT - avoid nephrotoxins, renally dose all medications - prn analgesia per pain score - mobility protocols to prevent pressure ulcers - accuchecks with glycemic control per SSI for target blood glucose < 180 mg/dL - continued smoking abstinence strongly counseled at the bedside - home oxygen evaluation at discharge - GI & VTE prophylaxis - Flu & pneumovax per protocol - continue other care per attending / other consultants ... re-evaluate in am & prn Subjective Date of service: 01/23/20 Principal diagnosis: Severe Sepsis; LEV PNA; DM II; Morbid obesity; R/O COVID-19 infection Interval history: Patient is seen today for: Severe Sepsis; LEV pneumonia; Diabetes II; Morbid obesity; Febrile illness R/O COVID-19 infection; Diabetic foot ulcer; Hyponatremia; Lactic acidosis Seen and examined at bedside; 24hour events reviewed; nursing and respiratory care staff consulted; no adverse overnight events reported to me; rtesting peacefully in bed; looks and sounds stronger; she is still weak; still coughing; no hemoptysis; No chest pains or palpitations Objective Vital Signs - 12hr 01/23/20 01/23/20 01/23/20 09:46 11:03 11:07 Temperature 98.7 F Pulse Rate 119 H 94 H Respiratory 18 24 Rate Blood Pressure 167/98 151/83 O2 Sat by Pulse 97 97 97 Oximetry 01/23/20 01/23/20 01/23/20 13:28 13:29 14:15 Temperature Pulse Rate 94 H 94 H Respiratory Rate Blood Pressure 151/83 151/83 O2 Sat by Pulse 99 Oximetry 01/23/20 01/23/20 01/23/20 17:03 20:00 20:44 Temperature 99.5 F Pulse Rate 106 H Respiratory 26 H Rate Blood Pressure 166/87 O2 Sat by Pulse 92 95 92 Oximetry Constitutional: alert, other (young obese AAF, normocephalic with mildly increased resp effort at rest) Eyes: non-icteric ENT: oropharynx moist Neck: supple, no lymphadenopathy, no JVD Effort: mildly labored Ascultation: Bilateral: diminished breath sounds, rales (bases) Percussion: Bilateral: not dull Cardiovascular: regular rate and rhythm Gastrointestinal: normoactive bowel sounds, soft, non-tender, non-distended Integumentary: normal Extremities: no cyanosis, no edema, pulses normal, no ischemia or petechiae Neurologic: normal mental status, non-focal exam, pupils equal and round, CN II- XII normal Psychiatric: mood appropriate, affect normal CBC and BMP: 01/21/20 11:41 01/24/20 06:03 ABG, PT/INR, D-dimer: PT/INR, D-dimer PT 15.6 Sec. (12.2-14.9) H 01/17/20 18:28 INR 1.22 (0.87-1.13) H 01/17/20 18:28 Abnormal lab findings: Abnormal Labs 01/17/20 01/17/20 01/17/20 18:28 18:28 18:28 MCH 26 L RDW Lymph % (Auto) 9.3 L Lymph # 1.0 L Seg Neutrophils % 86.7 H Seg Neutrophils # 9.6 H PT 15.6 H INR 1.22 H Sodium 126 L Potassium Chloride 89.3 L Carbon Dioxide 19 L Glucose 397 H POC Glucose Hemoglobin A1c Lactic Acid Calcium Magnesium C-Reactive Protein Total Protein 9.0 H Vancomycin Trough 01/17/20 01/17/20 01/17/20 18:28 22:58 22:58 MCH RDW Lymph % (Auto) Lymph # Seg Neutrophils % Seg Neutrophils # PT INR Sodium Potassium Chloride Carbon Dioxide Glucose POC Glucose Hemoglobin A1c Lactic Acid 3.40 H* 2.30 H* Calcium Magnesium 1.50 L C-Reactive Protein 16.60 H Total Protein Vancomycin Trough 01/18/20 01/18/20 01/18/20 00:46 06:34 08:30 MCH 26 L RDW 12.7 L Lymph % (Auto) Lymph # Seg Neutrophils % 80.1 H Seg Neutrophils # PT INR Sodium Potassium Chloride Carbon Dioxide Glucose POC Glucose 338 H 266 H Hemoglobin A1c Lactic Acid Calcium Magnesium C-Reactive Protein Total Protein Vancomycin Trough 01/18/20 01/18/20 01/18/20 08:30 08:35 12:30 MCH RDW Lymph % (Auto) Lymph # Seg Neutrophils % Seg Neutrophils # PT INR Sodium 135 L D Potassium Chloride Carbon Dioxide Glucose 250 H POC Glucose 224 H 213 H Hemoglobin A1c Lactic Acid Calcium Magnesium C-Reactive Protein Total Protein Vancomycin Trough 01/18/20 01/18/20 01/18/20 12:47 16:56 22:03 MCH RDW Lymph % (Auto) Lymph # Seg Neutrophils % Seg Neutrophils # PT INR Sodium Potassium Chloride Carbon Dioxide Glucose POC Glucose 270 H 239 H Hemoglobin A1c 11.6 H Lactic Acid Calcium Magnesium C-Reactive Protein Total Protein Vancomycin Trough 01/19/20 01/19/20 01/19/20 06:15 11:48 13:09 MCH 26 L RDW Lymph % (Auto) Lymph # Seg Neutrophils % Seg Neutrophils # PT INR Sodium Potassium Chloride Carbon Dioxide Glucose POC Glucose 248 H 268 H Hemoglobin A1c Lactic Acid Calcium Magnesium C-Reactive Protein Total Protein Vancomycin Trough 01/19/20 01/19/20 01/20/20 17:44 21:09 09:03 MCH RDW Lymph % (Auto) Lymph # Seg Neutrophils % Seg Neutrophils # PT INR Sodium Potassium Chloride Carbon Dioxide Glucose POC Glucose 214 H 261 H 241 H Hemoglobin A1c Lactic Acid Calcium Magnesium C-Reactive Protein Total Protein Vancomycin Trough 01/20/20 01/20/20 01/20/20 12:10 17:00 19:43 MCH RDW Lymph % (Auto) Lymph # Seg Neutrophils % Seg Neutrophils # PT INR Sodium Potassium Chloride Carbon Dioxide Glucose POC Glucose 284 H 272 H Hemoglobin A1c Lactic Acid Calcium Magnesium C-Reactive Protein Total Protein Vancomycin Trough 4.0 L 01/20/20 01/21/20 01/21/20 22:39 09:29 11:41 MCH 26 L RDW Lymph % (Auto) Lymph # Seg Neutrophils % Seg Neutrophils # PT INR Sodium Potassium Chloride Carbon Dioxide Glucose POC Glucose 248 H 238 H Hemoglobin A1c Lactic Acid Calcium Magnesium C-Reactive Protein Total Protein Vancomycin Trough 01/21/20 01/21/20 01/21/20 11:41 12:27 16:55 MCH RDW Lymph % (Auto) Lymph # Seg Neutrophils % Seg Neutrophils # PT INR Sodium 132 L Potassium 3.5 L Chloride 97.0 L Carbon Dioxide 19 L Glucose 274 H POC Glucose 264 H 261 H Hemoglobin A1c Lactic Acid Calcium Magnesium C-Reactive Protein Total Protein Vancomycin Trough 01/21/20 01/22/20 01/22/20 22:39 09:05 12:57 MCH RDW Lymph % (Auto) Lymph # Seg Neutrophils % Seg Neutrophils # PT INR Sodium Potassium Chloride Carbon Dioxide Glucose POC Glucose 243 H 258 H 252 H Hemoglobin A1c Lactic Acid Calcium Magnesium C-Reactive Protein Total Protein Vancomycin Trough 01/22/20 01/22/20 01/23/20 17:14 21:30 09:03 MCH RDW Lymph % (Auto) Lymph # Seg Neutrophils % Seg Neutrophils # PT INR Sodium Potassium Chloride Carbon Dioxide Glucose POC Glucose 306 H 217 H 156 H Hemoglobin A1c Lactic Acid Calcium Magnesium C-Reactive Protein Total Protein Vancomycin Trough 01/23/20 01/23/20 01/23/20 10:36 11:12 17:11 MCH RDW Lymph % (Auto) Lymph # Seg Neutrophils % Seg Neutrophils # PT INR Sodium Potassium 3.0 L Chloride Carbon Dioxide 21 L Glucose 266 H POC Glucose 244 H 238 H Hemoglobin A1c Lactic Acid Calcium 8.3 L Magnesium C-Reactive Protein Total Protein Vancomycin Trough Chest x-ray: image reviewed Allied health notes reviewed: nursing
[2020-01-23] MEDS ORDERED: carvediloL 25 MG TAB PO SCH (22:00)
[2020-01-23] MEDS: carvediloL 25 MG TAB PO SCH (22:35)
[2020-01-24] MEDS: HYDROXYCHLOROQUINE 200 MG TAB PO SCH ×2 (01:34→14:19)
--- NOTE | 2020-01-24 05:18 | Consultation ---
PULMONARY CRITICAL CARE CONSULTATION NOTE CONSULTING PHYSICIAN: Dr. Manzo. REASON FOR CONSULTATION: Acute hypoxemic respiratory failure. CHIEF COMPLAINT AND HISTORY OF PRESENT ILLNESS: The patient is now 29-year-old -[place] female with past medical history of obesity essentially as well as a history of diabetes who came into the Emergency Room on or about of of this month complaining of a subacute wound in the plantar aspect of her right great toe. She stated she had dropped some boxes on the toe about a week and a half ago, she was seen as an outpatient in urgent care center. She received antibiotics, was not sure of her tetanus vaccination status. At the time, she denied headache, neck pain, chest pain, abdominal pain, shortness of breath, fevers or cough. She also described herself as a never smoker. She was admitted to the hospital with systemic inflammatory response syndrome, hyponatremia, hyperglycemia and pneumonia that was found on her chest x-ray and had been remaining under management in the hospital 3rd floor. While in the hospital, she developed persistent fevers. Infectious Disease consultation was placed. She was essentially diagnosed with sepsis. She had ruled out for influenza and it was felt that given her nonresponse to broad spectrum antibiotics, a normal white count, persistent fevers, pneumonia, negative flu test, she should be ruled out for COVID-19. We were ultimately consulted today to assist with management. When I stopped by to see her, she was resting in bed on high flow nasal cannula 100% FiO2 via Vapotherm system. I came rather late to the room, so she was drowsy. However, when I insisted on her responding to my questions, she would wake up more and respond appropriately. She denied any chest pains at that time. She admitted to some shortness of breath. She denied nausea, vomiting, or overt aspiration prior to admission or since admission. She denied contact with anyone with known COVID-19 infection. She denied travel out of the [place]. Otherwise, her history is as mentioned above. This really is as much of the history of this presentation as I have. PAST MEDICAL HISTORY: Diabetes, obesity. PAST SURGICAL HISTORY: As far as I can tell, she denies any. MEDICATIONS: She was on at the time I stopped by to see her were reviewed. Pertinent medications include the following: Tylenol 650 mg p.o. q. 4 hours p.r.n. mild pain or fevers, amlodipine 10 mg p.o. daily, Coreg 12.5 mg p.o. b.i.d., heparin 5000 units subcutaneous q. 8 hours, hydralazine 10 mg IV q. 6 hours p.r.n. elevated blood pressure as well as hydralazine 50 mg p.o. q. 8 hours. She was on Plaquenil 200 mg p.o. q. 12 hours, cefepime 2 g IV q. 8 hours, vancomycin 2 grams IV q. 8 hours, insulin via sliding scale as well as 70/30 insulin 8 units subcutaneous b.i.d. Morphine sulfate 2 mg IV q. 4 hours p.r.n. moderate pain, Zofran 4 mg IV q. 8 hours p.r.n. nausea and vomiting. ALLERGIES: No known drug allergies. DIET: Morbidly obese lady, BMI of 42.2 kilograms per meter squared. Denies acute weight loss or gain in the preceding few weeks to months. FAMILY AND SOCIAL HISTORY: There is a family history I believe of diabetes. She describes herself as a never smoker. Denies illicit drug use or abuse. Denies alcohol use or abuse. Family history otherwise noncontributory. REVIEW OF SYSTEMS: No loss of consciousness. No new onset seizures. No new onset focal weakness. No gross hematochezia or melena. No gross hematuria or dysuria. No hematemesis. No hemoptysis. She denies palpitations. She denies heat or cold intolerance. Denies polydipsia or polyuria. Complete 13-system review of systems obtained. Pertinent positives and/or negatives as in body of history above, otherwise they are noncontributory. PHYSICAL EXAMINATION: VITAL SIGNS: On examination at presentation in the Emergency Room, she was with a fever of 103.0 degrees Fahrenheit, pulse of 145, respiratory rate as high as 29 and blood pressure 169/103, O2 sats were 98%, inspired oxygen concentration at that time was not recorded. When I stopped by to see her, her O2 sats were 99% that was on 100% high flow nasal cannula. Unfortunately, I could not check the pulse oximeter at that time, her breathing was nonlabored. GENERAL: We have a young, morbidly obese -[place] female, normocephalic, atraumatic, talking to me with uninterrupted sentences, but with mildly increased respiratory effort at rest. HEAD, EYES, EARS, NOSE AND THROAT: She is anicteric. No conjunctival erythema. Oropharynx is moist. Mallampati #4 oropharynx. No gross jugular venous distention, no thyromegaly. She has a large neck circumference. Grossly, there were no palpable lymph nodes in the supraclavicular or submandibular lymph node chains. Neck was supple. LUNGS: Auscultation of both lung choi, really just diminished bilateral breath sounds. No active wheezing, no rhonchi at the time of my evaluation. HEART: Heart sounds 1 and 2 are heard. They were regular in rate and rhythm at the time of my evaluation without overt rubs or murmurs. ABDOMEN: Soft, full, protuberant, but not distended. Bowel sounds are positive, nontender, no palpable hepatosplenomegaly. EXTREMITIES: Without overt digital clubbing or cyanosis. No pedal edema. Pedal pulses were 2+ bilaterally. She had a wound dressing to her right foot. NEUROLOGIC: Pupils are equal, round, about 4 mm, reactive to light. Extraocular muscle movements were intact. She moved all 4 extremities spontaneously. PSYCHIATRIC: Her mood was depressed. Her affect was flat. LABORATORY DATA: From my review are as follows: Admission white cell count 11,000, hemoglobin 12.7, hematocrit 39.6, platelet count was 268. Lymphocyte count was low at 9.3. INR was 1.22. Serum sodium was 126, potassium 4.0, chloride 89, bicarbonate 19, BUN 13, creatinine 0.9, glucose was 397. Lactic acid level was 3.4 at presentation. The CRP level was significantly elevated at 16.6. Urinalysis was negative for nitrites and leukocyte esterase. Again, rapid Flu test was negative for influenza A and B. Most recent serum chemistries showed a serum bicarbonate of 19. Sugars were still running in the 200s. White count remained at 7700. Blood cultures, urine cultures, sputum culture, no growth to date. I have reviewed the chest x-ray. I have also reviewed the radiologist's interpretation. I do see some sort of perihilar predominant infiltrate, left hilar region, in particular, in the left upper lobe. The most recent chest x-ray, which was done a few days ago; it is a rotated film, rotated to the right; however, there is a persistent suggestion of a left upper lobe infiltrate/left perihilar infiltrate and I cannot rule out a right lower lobe infiltrate also. ASSESSMENT: 1. Sepsis syndrome, severe sepsis I should say at presentation. 2. Left upper lobe pneumonia at presentation. 3. Diabetes, poorly controlled. 4. Morbid obesity. 5. Febrile illness, possibly due to the pneumonia. 6. Diabetic foot ulcer. 7. Hyponatremia at presentation. 8. Lactic acidosis. PLAN: It certainly would have been beneficial to evaluate her better with a CT scan of her chest, however, with a possibility of a COVID-19 infection and the current state of understanding of the disease, I feel like I will be exposing healthcare and other ancillary staff to possible dissemination and for that reason we will continue to treat her with a chest x-ray picture. Hopefully, her oxygenation improves. If she does not wean from the supplemental oxygen in due course, then in short course I will order an arterial blood gas. For tonight, she will remain on 100% FiO2. I will avoid bilevel positive airway pressure ventilation therapy in light of the risk of aerosolization of a possible COVID-19 infection. We will continue to await the test results. We will continue anti-infective medications per the Infectious Disease physician's recommendations. Weight loss has been counseled. Continued tobacco abstinence has been counseled. Elective intubation or semi-elective intubation will be the route we will go if she does not improve on the high flow nasal cannula. Electrolytes will be followed and corrected as necessary. Conservative volume management strategies will be observed so as not to develop pulmonary edema. We will trend the procalcitonin level. Perhaps the elevated procalcitonin such as this is less likely a COVID infection. The data is still coming in. Magnesium will be supplemented. She is appropriately on DVT prophylaxis. She will be placed on GI prophylaxis. We will continue empiric hydroxychloroquine therapy. Flu and pneumonia vaccination will be addressed per protocol. Thank you very much for the consult Dr. Manzo. We will follow along and make further recommendations as picture progresses/becomes clearer. She is critically ill on life-sustaining interventions including the 100% oxygen via high flow nasal cannula and at risk of further decompensation including the risk of from cardiopulmonary system decompensation. At this time, I spent about 35 minutes of critical care time without overlap and excluding any procedural time that may be necessary. JOB# [id number] CHANNING/JÚNIOR HUBBARD
[2020-01-24] MEDS: HEPARIN 5,000 UNIT/1 ML VIAL SUB-Q SCH ×3 (05:40→21:56)
[2020-01-24] MEDS: hydrALAZINE 25 MG TAB PO SCH ×3 (05:41→21:58)
[2020-01-24] MEDS: MORPHINE 2 MG/1 ML INJ IV PRN ×4 (05:42→22:12)
[2020-01-24] MEDS: CEFEPIME/NS 2 GM/100 ML 2 GM/100 ML BAG IV SCH ×3 (05:42→21:56)
[2020-01-24] MEDS: VANCOMYCIN 2,000 MG in SODIUM CHLORIDE 0.9% 500 ML 500 ML IV SCH (06:39)
[2020-01-24 06:51] LABS: BUN/Creatinine Ratio 16; Blood Urea Nitrogen 11 mg/dL (7-17); Calcium 8.2 mg/dL (8.4-10.2); Hemolysis Index 2
[2020-01-24] MEDS: INSULIN NPH/REGULAR 70/30 INJ SUB-Q SCH (08:31)
[2020-01-24] MEDS: INSULIN REGULAR, HUMAN 100 UNITS/1 ML SUB-Q SCH ×3 (08:31→21:59)
[2020-01-24] MEDS: amLODIPine 10 MG TAB PO SCH (10:03)
[2020-01-24] MEDS: carvediloL 25 MG TAB PO SCH ×2 (10:03→21:58)
[2020-01-24] MEDS: FAMOTIDINE 20 MG TAB PO SCH (10:04)
[2020-01-24] MEDS ORDERED: INSULIN NPH/REGULAR 70/30 INJ SUB-Q SCH (10:59)
[2020-01-24] MEDS ORDERED: POTASSIUM CHLORIDE ER 20 MEQ TAB PO ONE (10:59)
[2020-01-24 13:10] LABS: ABG Base Excess -1.2 mmol/L (-2.0-3.0); ABG HCO3 22.2 mmol/L (20.0-26.0); ABG Methemoglobin 0.6 % (0.0-1.5); ABG PCO2 30.2 mm Hg; ABG PH 7.485 pH Units (7.350-7.450); ABG PO2 63.4 mm Hg (80.0-90.0)
[2020-01-24] MEDS: LISINOPRIL 20 MG TAB PO SCH (13:11)
[2020-01-24] MEDS: SODIUM CHLORIDE 0.9% 1000 ML 1,000 ML IV SCH (14:19)
--- NOTE | 2020-01-24 17:12 | Progress Note ---
Assessment and Plan /Sepsis with high-grade fever elevated lactic acid Likely from left upper lobe pneumonia and infected right diabetic wound Also need to rule out COVID 19 Continue antibiotics for now, consulted ID /Acute hypoxic respiratory failure Due to underlying pneumonia, continue nebs and supplemental O2 Patient currently on 80% FiO2 /COVID -19 rule out -Continue to have high fever with low white count -Discussed with ID and wanted to rule out COVID19 for her -Placed on droplet precaution, negative influenza test /Open wound of great toe, right X-ray of the foot did not suggest any osteomyelitis. Patient was also given a tetanus injection. Continue on empiric IV antibiotics Wound consult requested, MRI ordered- pending /Hypertension, uncontrolled Continue current medication, continue to adjust medications to keep systolic blood pressure less than 160 /Pneumonia, left upper lobe Patient placed on empiric IV antibiotics. Negative blood culture result. /Diabetes mellitus type 2 with hyperglycemia We will monitor blood glucose closely. Continue on IV fluid. Place on SSI with regular Accu-Chek / Hyponatremia Possibly secondary to the hyperglycemia. Will monitor chemistry. We will also continue IV fluid. / DVT prophylaxis Patient placed on subcutaneous heparin / Full code status 01/18 continue to spike high-grade temp, need to rule out covid19, ordered for flu test, consulted ID 01/19 filled out COVID 19 form, negative flu test, changed IV antibiotics to cefepime and vancomycin. Also started on Plaquenil 01/20 spiking fever, COVID 19 result pending, cont plaquenil, pending MRI right foot 01/21 refusing Plaquenil as she developed a rash, oxygen requirement increased to 100% FiO2, consulted pulmonary, pending covid 19 result. Pending MRI right foot 01/22 patient on 80% FiO2 today. 01/23 patient remained on 80% FiO2. Covid 19 test still pending. Unable to tolerate Plaquenil as she developed a rash The high probability of a clinically significant, sudden or life threatening deterioration of the [respiratory] system(s) required my full and direct attention, intervention and personal management. The aggregate critical care time was [25] minutes. This time is in addition to time spent performing reported procedures but includes the following: [x] Data Review and interpretation [x] Patient assessment and monitoring of vital signs [x] Documentation [x] Medication orders and management Physical exam: GENERAL: well-developed and obese -Lao female lying on bed appeared to be in mild discomfort. Appears very lethargic HEENT: Normocephalic. Atraumatic. No conjunctival congestion or icterus. Patient has moist mucous membranes. NECK: Supple. Trachea midline. CHEST/LUNGS: Coarse breath sounds auscultated, breathing slightly labored. Positive for Rales, HEART/CARDIOVASCULAR: Regular in rate and rhythm. S1 and S2 positive. ABDOMEN: Abdomen is soft, nontender. Patient has normal bowel sounds. SKIN: Positive rash on her right/left thigh. Warm and dry. NEURO: No focal motor deficit. Follows command. MUSCULOSKELETAL: No joint effusion or tenderness. EXTRIMITY: No edema, no cyanosis or clubbing. Right foot with wound dressing PSYCH: Cooperative. Subjective Date of service: 01/24/20 Principal diagnosis: Severe Sepsis; LEV PNA; DM II; Morbid obesity; R/O COVID-19 infection Interval history: Patient seen and examined. Medical records and medication list reviewed. Patient continued to spike high-grade fever, developed a rash on her right thigh and the sweats she is refusing to take Plaquenil Discussed plan of care at bedside with patient. pending COVID 19 result, patient now on placed on 80% FiO2 Objective - Constitutional Vitals: Vital Signs - 12hr 01/24/20 01/24/20 01/24/20 05:21 05:41 10:03 Temperature 99.1 F Pulse Rate 111 H 107 H 107 H Respiratory 22 Rate Blood Pressure 168/94 178/98 178/98 O2 Sat by Pulse 95 Oximetry 01/24/20 01/24/20 01/24/20 10:04 12:03 14:20 Temperature 98.5 F Pulse Rate Respiratory 20 20 20 Rate Blood Pressure 142/83 O2 Sat by Pulse Oximetry - Labs CBC & Chem 7: 01/21/20 11:41 01/24/20 06:03 Labs: Abnormal lab results 01/23/20 01/23/20 01/24/20 Range/Units 17:11 22:57 06:03 ABG pH (7.350-7.450) pH Units ABG pO2 (80.0-90.0) mm Hg ABG Hemoglobin (12.0-16.0) gm/dl Potassium 3.2 L (3.6-5.0) mmol/L Carbon Dioxide 19 L (22-30) mmol/L Glucose 231 H (65-100) mg/dL POC Glucose 238 H 228 H (70-105) Calcium 8.2 L (8.4-10.2) mg/dL 01/24/20 01/24/20 Range/Units 12:12 12:50 ABG pH 7.485 H (7.350-7.450) pH Units ABG pO2 63.4 L (80.0-90.0) mm Hg ABG Hemoglobin 5.0 L (12.0-16.0) gm/dl Potassium (3.6-5.0) mmol/L Carbon Dioxide (22-30) mmol/L Glucose (65-100) mg/dL POC Glucose 210 H (70-105) Calcium (8.4-10.2) mg/dL
[2020-01-25] MEDS: VANCOMYCIN 2,000 MG in SODIUM CHLORIDE 0.9% 500 ML 500 ML IV SCH ×6 (03:53→21:59)
[2020-01-25] MEDS: HEPARIN 5,000 UNIT/1 ML VIAL SUB-Q SCH ×3 (05:31→21:25)
[2020-01-25] MEDS: CEFEPIME/NS 2 GM/100 ML 2 GM/100 ML BAG IV SCH ×3 (05:31→21:24)
[2020-01-25] MEDS: hydrALAZINE 25 MG TAB PO SCH ×3 (05:34→22:10)
[2020-01-25] MEDS ORDERED: HYDROXYCHLOROQUINE 200 MG TAB PO SCH (06:00)
--- NOTE | 2020-01-25 08:32 | Progress Note ---
Assessment and Plan - Patient Problems (1) Pneumonia Current Visit: Yes Status: Acute Plan to address problem: Patient currently with a left lower lobe pneumonia. Treated with cefepime. Patient remains febrile. Actual source unknown foot versus lung disease. Versus acute viral illness. (2) SIRS (systemic inflammatory response syndrome) Current Visit: Yes Status: Acute (3) Open wound of great toe Current Visit: Yes Status: Acute Plan to address problem: Patient diabetic foot wound. Being treated local wound care plus vancomycin. (4) Hypertension Current Visit: Yes Status: Acute Plan to address problem: Blood pressure suboptimal on Coreg and amlodipine. We will follow-up in a.m. If remains suboptimal control will add agent. (5) Uncontrolled diabetes mellitus Current Visit: Yes Status: Acute Plan to address problem: Much better control since increasing NPH insulin to 12 units twice daily. (6) Hypokalemia Current Visit: Yes Status: Acute Plan to address problem: Persistent hypokalemia. We will treat IV today follow-up a.m. (7) COVID-19 virus detected Current Visit: Yes Status: Acute Plan to address problem: Patient continues to be on quarantine for [place] 19 detection. Most likely source of her fever. Patient at high risk given diabetes pneumonia and recent diabetic foot wound. Subjective Date of service: 01/25/20 Principal diagnosis: Severe Sepsis; LEV PNA; DM II; Morbid obesity; R/O COVID-19 infection Interval history: pt today remains febrile at 102. No new concerns overnight. Objective - Constitutional Vitals: Vital Signs - 12hr 01/24/20 01/24/20 01/24/20 21:31 21:58 22:33 Temperature 99.4 F Pulse Rate 137 H 137 H Respiratory 20 Rate Blood Pressure 195/92 195/92 O2 Sat by Pulse 96 94 Oximetry 01/25/20 01/25/20 01/25/20 02:00 05:10 05:34 Temperature 99.7 F H Pulse Rate 105 H 102 H Respiratory 22 Rate Blood Pressure 158/82 158/85 O2 Sat by Pulse 93 96 Oximetry General appearance: Present: mild distress - EENT Eyes: PERRL, EOM intact ENT: hearing intact, clear oral mucosa Ears: bilateral: normal - Respiratory Respiratory effort: normal Respiratory: bilateral: diminished Extremities: pulses intact, No edema, normal color, Full ROM - Gastrointestinal General gastrointestinal: Present: soft, non-tender, non-distended, normal bowel sounds - Musculoskeletal Musculoskeletal: other (Surgical site bandage.) - Psychiatric Psychiatric: memory intact, appropriate mood/affect, intact judgment & insight - Labs CBC & Chem 7: 01/26/20 05:40 01/26/20 05:40 Labs: Abnormal lab results 01/24/20 01/24/20 01/24/20 Range/Units 12:12 12:50 19:01 ABG pH 7.485 H (7.350-7.450) pH Units ABG pO2 63.4 L (80.0-90.0) mm Hg ABG Hemoglobin 5.0 L (12.0-16.0) gm/dl POC Glucose 210 H 183 H (70-105) 01/24/20 Range/Units 21:49 ABG pH (7.350-7.450) pH Units ABG pO2 (80.0-90.0) mm Hg ABG Hemoglobin (12.0-16.0) gm/dl POC Glucose 193 H (70-105)
[2020-01-25] MEDS: LISINOPRIL 20 MG TAB PO SCH (09:49)
[2020-01-25] MEDS: carvediloL 25 MG TAB PO SCH ×2 (09:49→21:25)
[2020-01-25] MEDS: amLODIPine 10 MG TAB PO SCH (09:50)
[2020-01-25] MEDS: FAMOTIDINE 20 MG TAB PO SCH (09:50)
[2020-01-25] MEDS: INSULIN NPH/REGULAR 70/30 INJ SUB-Q SCH ×2 (09:52→17:01)
[2020-01-25] MEDS: INSULIN REGULAR, HUMAN 100 UNITS/1 ML SUB-Q SCH ×4 (09:53→23:29)
--- NOTE | 2020-01-25 13:20 | Progress Note ---
Assessment and Plan Severe Sepsis Left upper lobe pneumonia Diabetes II Morbid obesity Febrile illness R/O COVID-19 infection Diabetic foot ulcer Hyponatremia Lactic acidosis - ABG with pO2 in low 60's but O2 sats 95% - prn CXR's - prn BIPAP (as a bridge to possible intubation) - continue HFNC via vapotherm system - continue contact and droplet precautions while awaiting Covid result - continue to wean supplemental oxygen to keep O2 sats > 90% - prn Bronchodilators (JURGEN) with pulm hygiene per RT - avoid nephrotoxins, renally dose all medications - prn analgesia per pain score - mobility protocols to prevent pressure ulcers - accuchecks with glycemic control per SSI for target blood glucose < 180 mg/dL - continued smoking abstinence strongly counseled at the bedside - home oxygen evaluation at discharge - GI & VTE prophylaxis - Flu & pneumovax per protocol - continue other care per attending / other consultants ... re-evaluate in am & prn Subjective Date of service: 01/25/20 Principal diagnosis: Severe Sepsis; LEV PNA; DM II; Morbid obesity; R/O COVID-19 infection Interval history: LATE ENTRY NOTE FOR DOS 01/24/2020 Patient is seen today for: Severe Sepsis; LEV pneumonia; Diabetes II; Morbid obesity; Febrile illness R/O COVID-19 infection; Diabetic foot ulcer; Hyponatremia; Lactic acidosis Seen and examined at bedside; 24hour events reviewed; nursing and respiratory care staff consulted; no adverse overnight events reported to me; rtesting peacefully in bed; looks even stronger; FiO2 at 80% but room to wean further. Objective Vital Signs - 12hr 01/25/20 01/25/20 01/25/20 02:00 05:10 05:34 Temperature 99.7 F H Pulse Rate 105 H 102 H Respiratory 22 Rate Blood Pressure 158/82 158/85 O2 Sat by Pulse 93 96 Oximetry 01/25/20 09:49 Temperature Pulse Rate Respiratory Rate Blood Pressure 158/85 O2 Sat by Pulse Oximetry Constitutional: alert, other (young obese AAF, normocephalic with mildly increased resp effort at rest) Eyes: non-icteric ENT: oropharynx moist Neck: supple, no lymphadenopathy, no JVD Effort: mildly labored Ascultation: Bilateral: diminished breath sounds, rales (bases) Percussion: Bilateral: not dull Cardiovascular: regular rate and rhythm Gastrointestinal: normoactive bowel sounds, soft, non-tender, non-distended Integumentary: normal Extremities: no cyanosis, no edema, pulses normal, no ischemia or petechiae Neurologic: normal mental status, non-focal exam, pupils equal and round, CN II- XII normal Psychiatric: mood appropriate, affect normal CBC and BMP: 01/21/20 11:41 01/24/20 06:03 ABG, PT/INR, D-dimer: ABG ABG pH 7.485 pH Units (7.350-7.450) H 01/24/20 12:50 ABG pCO2 30.2 mm Hg 01/24/20 12:50 ABG pO2 63.4 mm Hg (80.0-90.0) L 01/24/20 12:50 ABG O2 Saturation 98.0 % (95.0-99.0) 01/24/20 12:50 PT/INR, D-dimer PT 15.6 Sec. (12.2-14.9) H 01/17/20 18:28 INR 1.22 (0.87-1.13) H 01/17/20 18:28 Abnormal lab findings: Abnormal Labs 01/17/20 01/17/20 01/17/20 18:28 18:28 18:28 MCH 26 L RDW Lymph % (Auto) 9.3 L Lymph # 1.0 L Seg Neutrophils % 86.7 H Seg Neutrophils # 9.6 H PT 15.6 H INR 1.22 H ABG pH ABG pO2 ABG Hemoglobin Sodium 126 L Potassium Chloride 89.3 L Carbon Dioxide 19 L Glucose 397 H POC Glucose Hemoglobin A1c Lactic Acid Calcium Magnesium C-Reactive Protein Total Protein 9.0 H Vancomycin Trough 01/17/20 01/17/20 01/17/20 18:28 22:58 22:58 MCH RDW Lymph % (Auto) Lymph # Seg Neutrophils % Seg Neutrophils # PT INR ABG pH ABG pO2 ABG Hemoglobin Sodium Potassium Chloride Carbon Dioxide Glucose POC Glucose Hemoglobin A1c Lactic Acid 3.40 H* 2.30 H* Calcium Magnesium 1.50 L C-Reactive Protein 16.60 H Total Protein Vancomycin Trough 01/18/20 01/18/20 01/18/20 00:46 06:34 08:30 MCH 26 L RDW 12.7 L Lymph % (Auto) Lymph # Seg Neutrophils % 80.1 H Seg Neutrophils # PT INR ABG pH ABG pO2 ABG Hemoglobin Sodium Potassium Chloride Carbon Dioxide Glucose POC Glucose 338 H 266 H Hemoglobin A1c Lactic Acid Calcium Magnesium C-Reactive Protein Total Protein Vancomycin Trough 01/18/20 01/18/20 01/18/20 08:30 08:35 12:30 MCH RDW Lymph % (Auto) Lymph # Seg Neutrophils % Seg Neutrophils # PT INR ABG pH ABG pO2 ABG Hemoglobin Sodium 135 L D Potassium Chloride Carbon Dioxide Glucose 250 H POC Glucose 224 H 213 H Hemoglobin A1c Lactic Acid Calcium Magnesium C-Reactive Protein Total Protein Vancomycin Trough 01/18/20 01/18/20 01/18/20 12:47 16:56 22:03 MCH RDW Lymph % (Auto) Lymph # Seg Neutrophils % Seg Neutrophils # PT INR ABG pH ABG pO2 ABG Hemoglobin Sodium Potassium Chloride Carbon Dioxide Glucose POC Glucose 270 H 239 H Hemoglobin A1c 11.6 H Lactic Acid Calcium Magnesium C-Reactive Protein Total Protein Vancomycin Trough 01/19/20 01/19/20 01/19/20 06:15 11:48 13:09 MCH 26 L RDW Lymph % (Auto) Lymph # Seg Neutrophils % Seg Neutrophils # PT INR ABG pH ABG pO2 ABG Hemoglobin Sodium Potassium Chloride Carbon Dioxide Glucose POC Glucose 248 H 268 H Hemoglobin A1c Lactic Acid Calcium Magnesium C-Reactive Protein Total Protein Vancomycin Trough 01/19/20 01/19/20 01/20/20 17:44 21:09 09:03 MCH RDW Lymph % (Auto) Lymph # Seg Neutrophils % Seg Neutrophils # PT INR ABG pH ABG pO2 ABG Hemoglobin Sodium Potassium Chloride Carbon Dioxide Glucose POC Glucose 214 H 261 H 241 H Hemoglobin A1c Lactic Acid Calcium Magnesium C-Reactive Protein Total Protein Vancomycin Trough 01/20/20 01/20/20 01/20/20 12:10 17:00 19:43 MCH RDW Lymph % (Auto) Lymph # Seg Neutrophils % Seg Neutrophils # PT INR ABG pH ABG pO2 ABG Hemoglobin Sodium Potassium Chloride Carbon Dioxide Glucose POC Glucose 284 H 272 H Hemoglobin A1c Lactic Acid Calcium Magnesium C-Reactive Protein Total Protein Vancomycin Trough 4.0 L 01/20/20 01/21/20 01/21/20 22:39 09:29 11:41 MCH 26 L RDW Lymph % (Auto) Lymph # Seg Neutrophils % Seg Neutrophils # PT INR ABG pH ABG pO2 ABG Hemoglobin Sodium Potassium Chloride Carbon Dioxide Glucose POC Glucose 248 H 238 H Hemoglobin A1c Lactic Acid Calcium Magnesium C-Reactive Protein Total Protein Vancomycin Trough 01/21/20 01/21/20 01/21/20 11:41 12:27 16:55 MCH RDW Lymph % (Auto) Lymph # Seg Neutrophils % Seg Neutrophils # PT INR ABG pH ABG pO2 ABG Hemoglobin Sodium 132 L Potassium 3.5 L Chloride 97.0 L Carbon Dioxide 19 L Glucose 274 H POC Glucose 264 H 261 H Hemoglobin A1c Lactic Acid Calcium Magnesium C-Reactive Protein Total Protein Vancomycin Trough 01/21/20 01/22/20 01/22/20 22:39 09:05 12:57 MCH RDW Lymph % (Auto) Lymph # Seg Neutrophils % Seg Neutrophils # PT INR ABG pH ABG pO2 ABG Hemoglobin Sodium Potassium Chloride Carbon Dioxide Glucose POC Glucose 243 H 258 H 252 H Hemoglobin A1c Lactic Acid Calcium Magnesium C-Reactive Protein Total Protein Vancomycin Trough 01/22/20 01/22/20 01/23/20 17:14 21:30 09:03 MCH RDW Lymph % (Auto) Lymph # Seg Neutrophils % Seg Neutrophils # PT INR ABG pH ABG pO2 ABG Hemoglobin Sodium Potassium Chloride Carbon Dioxide Glucose POC Glucose 306 H 217 H 156 H Hemoglobin A1c Lactic Acid Calcium Magnesium C-Reactive Protein Total Protein Vancomycin Trough 01/23/20 01/23/20 01/23/20 10:36 11:12 17:11 MCH RDW Lymph % (Auto) Lymph # Seg Neutrophils % Seg Neutrophils # PT INR ABG pH ABG pO2 ABG Hemoglobin Sodium Potassium 3.0 L Chloride Carbon Dioxide 21 L Glucose 266 H POC Glucose 244 H 238 H Hemoglobin A1c Lactic Acid Calcium 8.3 L Magnesium C-Reactive Protein Total Protein Vancomycin Trough 01/23/20 01/24/20 01/24/20 22:57 06:03 12:12 MCH RDW Lymph % (Auto) Lymph # Seg Neutrophils % Seg Neutrophils # PT INR ABG pH ABG pO2 ABG Hemoglobin Sodium Potassium 3.2 L Chloride Carbon Dioxide 19 L Glucose 231 H POC Glucose 228 H 210 H Hemoglobin A1c Lactic Acid Calcium 8.2 L Magnesium C-Reactive Protein Total Protein Vancomycin Trough 01/24/20 01/24/20 01/24/20 12:50 19:01 21:49 MCH RDW Lymph % (Auto) Lymph # Seg Neutrophils % Seg Neutrophils # PT INR ABG pH 7.485 H ABG pO2 63.4 L ABG Hemoglobin 5.0 L Sodium Potassium Chloride Carbon Dioxide Glucose POC Glucose 183 H 193 H Hemoglobin A1c Lactic Acid Calcium Magnesium C-Reactive Protein Total Protein Vancomycin Trough 01/25/20 09:13 MCH RDW Lymph % (Auto) Lymph # Seg Neutrophils % Seg Neutrophils # PT INR ABG pH ABG pO2 ABG Hemoglobin Sodium Potassium Chloride Carbon Dioxide Glucose POC Glucose 196 H Hemoglobin A1c Lactic Acid Calcium Magnesium C-Reactive Protein Total Protein Vancomycin Trough Allied health notes reviewed: nursing
--- NOTE | 2020-01-25 13:22 | Progress Note ---
Assessment and Plan Severe Sepsis Left upper lobe pneumonia Diabetes II Morbid obesity Febrile illness R/O COVID-19 infection Diabetic foot ulcer Hyponatremia Lactic acidosis - continue contact and droplet precautions - continue to wean supplemental oxygen to keep O2 sats > 90% - prn CXR's - prn BIPAP (as a bridge to possible intubation) - continue HFNC via vapotherm system - prn Bronchodilators (JURGEN) with pulm hygiene per RT - avoid nephrotoxins, renally dose all medications - prn analgesia per pain score - mobility protocols to prevent pressure ulcers - accuchecks with glycemic control per SSI for target blood glucose < 180 mg/dL - continued smoking abstinence strongly counseled at the bedside - home oxygen evaluation at discharge - GI & VTE prophylaxis - Flu & pneumovax per protocol - continue other care per attending / other consultants ... re-evaluate in am & prn Subjective Date of service: 01/25/20 Principal diagnosis: Severe Sepsis; LEV PNA; DM II; Morbid obesity; R/O COVID-19 infection Interval history: Patient is seen today for: Severe Sepsis; LEV pneumonia; Diabetes II; Morbid obesity; Febrile illness R/O COVID-19 infection; Diabetic foot ulcer; Hyponatremia; Lactic acidosis Seen and examined at bedside; 24hour events reviewed; nursing and respiratory care staff consulted; no adverse overnight events reported to me; rtesting peacefully in bed; COVID result positive Objective Vital Signs - 12hr 01/25/20 01/25/20 01/25/20 02:00 05:10 05:34 Temperature 99.7 F H Pulse Rate 105 H 102 H Respiratory 22 Rate Blood Pressure 158/82 158/85 O2 Sat by Pulse 93 96 Oximetry 01/25/20 09:49 Temperature Pulse Rate Respiratory Rate Blood Pressure 158/85 O2 Sat by Pulse Oximetry Constitutional: alert, other (young obese AAF, normocephalic with mildly increased resp effort at rest) Eyes: non-icteric ENT: oropharynx moist Neck: supple, no lymphadenopathy, no JVD Effort: mildly labored Ascultation: Bilateral: diminished breath sounds, rales (bases) Percussion: Bilateral: not dull Cardiovascular: regular rate and rhythm Gastrointestinal: normoactive bowel sounds, soft, non-tender, non-distended Integumentary: normal Extremities: no cyanosis, no edema, pulses normal, no ischemia or petechiae Neurologic: normal mental status, non-focal exam, pupils equal and round, CN II- XII normal Psychiatric: mood appropriate, affect normal CBC and BMP: 01/26/20 05:40 01/28/20 10:00 ABG, PT/INR, D-dimer: ABG ABG pH 7.485 pH Units (7.350-7.450) H 01/24/20 12:50 ABG pCO2 30.2 mm Hg 01/24/20 12:50 ABG pO2 63.4 mm Hg (80.0-90.0) L 01/24/20 12:50 ABG O2 Saturation 98.0 % (95.0-99.0) 01/24/20 12:50 PT/INR, D-dimer PT 15.6 Sec. (12.2-14.9) H 01/17/20 18:28 INR 1.22 (0.87-1.13) H 01/17/20 18:28 Abnormal lab findings: Abnormal Labs 01/17/20 01/17/20 01/17/20 18:28 18:28 18:28 MCH 26 L RDW Lymph % (Auto) 9.3 L Lymph # 1.0 L Seg Neutrophils % 86.7 H Seg Neutrophils # 9.6 H PT 15.6 H INR 1.22 H ABG pH ABG pO2 ABG Hemoglobin Sodium 126 L Potassium Chloride 89.3 L Carbon Dioxide 19 L Glucose 397 H POC Glucose Hemoglobin A1c Lactic Acid Calcium Magnesium C-Reactive Protein Total Protein 9.0 H Vancomycin Trough 01/17/20 01/17/20 01/17/20 18:28 22:58 22:58 MCH RDW Lymph % (Auto) Lymph # Seg Neutrophils % Seg Neutrophils # PT INR ABG pH ABG pO2 ABG Hemoglobin Sodium Potassium Chloride Carbon Dioxide Glucose POC Glucose Hemoglobin A1c Lactic Acid 3.40 H* 2.30 H* Calcium Magnesium 1.50 L C-Reactive Protein 16.60 H Total Protein Vancomycin Trough 01/18/20 01/18/20 01/18/20 00:46 06:34 08:30 MCH 26 L RDW 12.7 L Lymph % (Auto) Lymph # Seg Neutrophils % 80.1 H Seg Neutrophils # PT INR ABG pH ABG pO2 ABG Hemoglobin Sodium Potassium Chloride Carbon Dioxide Glucose POC Glucose 338 H 266 H Hemoglobin A1c Lactic Acid Calcium Magnesium C-Reactive Protein Total Protein Vancomycin Trough 01/18/20 01/18/20 01/18/20 08:30 08:35 12:30 MCH RDW Lymph % (Auto) Lymph # Seg Neutrophils % Seg Neutrophils # PT INR ABG pH ABG pO2 ABG Hemoglobin Sodium 135 L D Potassium Chloride Carbon Dioxide Glucose 250 H POC Glucose 224 H 213 H Hemoglobin A1c Lactic Acid Calcium Magnesium C-Reactive Protein Total Protein Vancomycin Trough 01/18/20 01/18/20 01/18/20 12:47 16:56 22:03 MCH RDW Lymph % (Auto) Lymph # Seg Neutrophils % Seg Neutrophils # PT INR ABG pH ABG pO2 ABG Hemoglobin Sodium Potassium Chloride Carbon Dioxide Glucose POC Glucose 270 H 239 H Hemoglobin A1c 11.6 H Lactic Acid Calcium Magnesium C-Reactive Protein Total Protein Vancomycin Trough 01/19/20 01/19/20 01/19/20 06:15 11:48 13:09 MCH 26 L RDW Lymph % (Auto) Lymph # Seg Neutrophils % Seg Neutrophils # PT INR ABG pH ABG pO2 ABG Hemoglobin Sodium Potassium Chloride Carbon Dioxide Glucose POC Glucose 248 H 268 H Hemoglobin A1c Lactic Acid Calcium Magnesium C-Reactive Protein Total Protein Vancomycin Trough 01/19/20 01/19/20 01/20/20 17:44 21:09 09:03 MCH RDW Lymph % (Auto) Lymph # Seg Neutrophils % Seg Neutrophils # PT INR ABG pH ABG pO2 ABG Hemoglobin Sodium Potassium Chloride Carbon Dioxide Glucose POC Glucose 214 H 261 H 241 H Hemoglobin A1c Lactic Acid Calcium Magnesium C-Reactive Protein Total Protein Vancomycin Trough 01/20/20 01/20/20 01/20/20 12:10 17:00 19:43 MCH RDW Lymph % (Auto) Lymph # Seg Neutrophils % Seg Neutrophils # PT INR ABG pH ABG pO2 ABG Hemoglobin Sodium Potassium Chloride Carbon Dioxide Glucose POC Glucose 284 H 272 H Hemoglobin A1c Lactic Acid Calcium Magnesium C-Reactive Protein Total Protein Vancomycin Trough 4.0 L 01/20/20 01/21/20 01/21/20 22:39 09:29 11:41 MCH 26 L RDW Lymph % (Auto) Lymph # Seg Neutrophils % Seg Neutrophils # PT INR ABG pH ABG pO2 ABG Hemoglobin Sodium Potassium Chloride Carbon Dioxide Glucose POC Glucose 248 H 238 H Hemoglobin A1c Lactic Acid Calcium Magnesium C-Reactive Protein Total Protein Vancomycin Trough 01/21/20 01/21/20 01/21/20 11:41 12:27 16:55 MCH RDW Lymph % (Auto) Lymph # Seg Neutrophils % Seg Neutrophils # PT INR ABG pH ABG pO2 ABG Hemoglobin Sodium 132 L Potassium 3.5 L Chloride 97.0 L Carbon Dioxide 19 L Glucose 274 H POC Glucose 264 H 261 H Hemoglobin A1c Lactic Acid Calcium Magnesium C-Reactive Protein Total Protein Vancomycin Trough 01/21/20 01/22/20 01/22/20 22:39 09:05 12:57 MCH RDW Lymph % (Auto) Lymph # Seg Neutrophils % Seg Neutrophils # PT INR ABG pH ABG pO2 ABG Hemoglobin Sodium Potassium Chloride Carbon Dioxide Glucose POC Glucose 243 H 258 H 252 H Hemoglobin A1c Lactic Acid Calcium Magnesium C-Reactive Protein Total Protein Vancomycin Trough 01/22/20 01/22/20 01/23/20 17:14 21:30 09:03 MCH RDW Lymph % (Auto) Lymph # Seg Neutrophils % Seg Neutrophils # PT INR ABG pH ABG pO2 ABG Hemoglobin Sodium Potassium Chloride Carbon Dioxide Glucose POC Glucose 306 H 217 H 156 H Hemoglobin A1c Lactic Acid Calcium Magnesium C-Reactive Protein Total Protein Vancomycin Trough 01/23/20 01/23/20 01/23/20 10:36 11:12 17:11 MCH RDW Lymph % (Auto) Lymph # Seg Neutrophils % Seg Neutrophils # PT INR ABG pH ABG pO2 ABG Hemoglobin Sodium Potassium 3.0 L Chloride Carbon Dioxide 21 L Glucose 266 H POC Glucose 244 H 238 H Hemoglobin A1c Lactic Acid Calcium 8.3 L Magnesium C-Reactive Protein Total Protein Vancomycin Trough 01/23/20 01/24/20 01/24/20 22:57 06:03 12:12 MCH RDW Lymph % (Auto) Lymph # Seg Neutrophils % Seg Neutrophils # PT INR ABG pH ABG pO2 ABG Hemoglobin Sodium Potassium 3.2 L Chloride Carbon Dioxide 19 L Glucose 231 H POC Glucose 228 H 210 H Hemoglobin A1c Lactic Acid Calcium 8.2 L Magnesium C-Reactive Protein Total Protein Vancomycin Trough 01/24/20 01/24/20 01/24/20 12:50 19:01 21:49 MCH RDW Lymph % (Auto) Lymph # Seg Neutrophils % Seg Neutrophils # PT INR ABG pH 7.485 H ABG pO2 63.4 L ABG Hemoglobin 5.0 L Sodium Potassium Chloride Carbon Dioxide Glucose POC Glucose 183 H 193 H Hemoglobin A1c Lactic Acid Calcium Magnesium C-Reactive Protein Total Protein Vancomycin Trough 01/25/20 09:13 MCH RDW Lymph % (Auto) Lymph # Seg Neutrophils % Seg Neutrophils # PT INR ABG pH ABG pO2 ABG Hemoglobin Sodium Potassium Chloride Carbon Dioxide Glucose POC Glucose 196 H Hemoglobin A1c Lactic Acid Calcium Magnesium C-Reactive Protein Total Protein Vancomycin Trough Allied health notes reviewed: nursing
--- NOTE | 2020-01-25 14:00 | Progress Note ---
Assessment and Plan Cultures: Blood culture 01/17/2020 no growth to date Urine culture 01/17/2020 no growth to date A/P: 29-year-old female past medical history diabetes admitted with acute sepsis secondary to right foot wound versus pneumonia. #Acute sepsis: Present with fevers and tachycardia. Secondary to her foot wound versus pneumonia. #COVID-19: Coronavirus testing has returned positive. #Pneumonia: Would escalate ceftriaxone to cefepime in light of nonresponse during fevers. #Right foot wound: Will need MRI when more stable to rule out osteomyelitis of the toe. Continue empiric vancomycin and cefepime for now. #Diabetes: tight glycemic control for best outcomes. Recs: -Continue cefepime 2 g every 8 hours -continue vancomycin dosed per pharmacy -Obtain MRI of the right foot -not urgent given present situation, can defer for now while treating for COVID-19. -Continue droplet and contact precautions -Ordered ferritin, CRP, d-dimer for risk stratification. These may be elevated in the setting of her foot wound. Thank you for the consult, will continue to follow Yuki Beltrán MD [facility] ([facility] M: [phone] O: [phone] F: [phone] Subjective Date of service: 01/25/20 Principal diagnosis: Severe Sepsis; LEV PNA; DM II; Morbid obesity; R/O COVID-19 infection Interval history: Afebrile, resting on high flow oxygen. Coronavirus testing has returned positive. Objective - Exam Narrative Exam: Physical Exam: Constitutional: Alert, cooperative. No acute distress Oral: dentition fair, no thrush Cardiovascular: S1, S2 normal. Respiratory: Good air entry, clear to auscultation bilaterally GI: Soft, non-tender; bowel sounds normal. No peritoneal signs. Musculoskeletal: Right hallux wound, left foot callus Skin: No rash or abscess Hem/Lymphatic: No palpable cervical or supraclavicular nodes. No lymphangitis Psych: Mood ok. Affect normal Neurological: Awake, alert, oriented. No gross abnormality - Constitutional Vitals: Vital Signs Temp Pulse Resp BP Pulse Ox 99.7 F H 102 H 22 158/85 96 01/25/20 05:10 01/25/20 05:34 01/25/20 05:10 01/25/20 09:49 01/25/20 05:10 Temperature -Last 24 Hours Temperature 99.7 F Temperature 99.4 F Temperature 100.0 F - Labs CBC & Chem 7: 01/21/20 11:41 01/24/20 06:03 Labs: Abnormal lab results 01/24/20 01/24/20 01/25/20 Range/Units 19:01 21:49 09:13 POC Glucose 183 H 193 H 196 H (70-105)
[2020-01-25] MEDS: MORPHINE 2 MG/1 ML INJ IV PRN (14:53)
[2020-01-25] MEDS: ACETAMINOPHEN 325 MG TAB PO PRN (21:53)
[2020-01-26] MEDS: ACETAMINOPHEN 325 MG TAB PO PRN ×3 (01:53→22:31)
[2020-01-26] MEDS: VANCOMYCIN 2,000 MG in SODIUM CHLORIDE 0.9% 500 ML 500 ML IV SCH ×3 (05:24→21:34)
[2020-01-26] MEDS: hydrALAZINE 25 MG TAB PO SCH ×3 (05:31→21:32)
[2020-01-26] MEDS: HEPARIN 5,000 UNIT/1 ML VIAL SUB-Q SCH ×3 (05:33→21:31)
[2020-01-26 06:58] LABS: Hematocrit 32.8 % (30.3-42.9); Hemoglobin 10.6 gm/dl (10.1-14.3); Mean Corpuscular HGB Conc 32 % (30-34); Mean Corpuscular Volume 79 fl (79-97); Platelet Count 261 K/mm3 (140-440); Red Blood Count 4.15 M/mm3 (3.65-5.03); Red Cell Distribution Width 12.9 % (13.2-15.2)
[2020-01-26] MEDS: CEFEPIME/NS 2 GM/100 ML 2 GM/100 ML BAG IV SCH ×3 (07:01→21:34)
[2020-01-26 07:10] LABS: BUN/Creatinine Ratio 16; Blood Urea Nitrogen 13 mg/dL (7-17); Hemolysis Index 0
[2020-01-26] MEDS: INSULIN NPH/REGULAR 70/30 INJ SUB-Q SCH ×2 (09:23→17:23)
[2020-01-26] MEDS: POTASSIUM CHLORIDE 10 MEQ 10 MEQ/100 ML BAG IV SCH ×2 (09:23→10:43)
[2020-01-26] MEDS: LISINOPRIL 20 MG TAB PO SCH (09:24)
[2020-01-26] MEDS: carvediloL 25 MG TAB PO SCH ×2 (09:24→21:32)
[2020-01-26] MEDS: amLODIPine 10 MG TAB PO SCH (09:24)
[2020-01-26] MEDS: FAMOTIDINE 20 MG TAB PO SCH (09:25)
[2020-01-26] MEDS: MORPHINE 2 MG/1 ML INJ IV PRN ×2 (09:25→22:31)
[2020-01-26] MEDS: INSULIN REGULAR, HUMAN 100 UNITS/1 ML SUB-Q SCH ×4 (09:26→22:30)
[2020-01-26 10:44] LABS: Band Neutrophils # (Manual) 0.8 K/mm3; Basophils % (Manual) 0 % (0.0-1.8); Total Cells Counted 100
[2020-01-26 10:45] LABS: Platelet Estimate Consistent w Auto; RBC Morphology Normal
--- NOTE | 2020-01-26 14:04 | Progress Note ---
Assessment and Plan Severe Sepsis Left upper lobe pneumonia Diabetes II Morbid obesity Febrile illness POSITIVE COVID-19 infection Diabetic foot ulcer Hyponatremia Lactic acidosis - prn CXR AND ABG WILL ORDER FOR TUESDAY -CONTINUE TO MONITOR RESPIRATORY STATUS CLOSELY- she is at risk for acute decompensation - continue HFNC via vapotherm system - continue contact , airborne and droplet precautions fro POSITIVE COVID - continue to wean supplemental oxygen to keep O2 sats > 90% - prn Bronchodilators (JURGEN) with pulm hygiene per RT - avoid nephrotoxins, renally dose all medications - prn analgesia per pain score - mobility protocols to prevent pressure ulcers - accuchecks with glycemic control per SSI for target blood glucose < 180 mg/dL - GI & VTE prophylaxis - Flu & pneumovax per protocol - continue other care per attending / other consultants ... re-evaluate in am & prn Subjective Date of service: 01/26/20 Principal diagnosis: Severe Sepsis; LEV PNA; DM II; Morbid obesity; R/O COVID-19 infection Interval history: Patient is seen today for: Severe Sepsis; LEV pneumonia; Diabetes II; Morbid obesity; Febrile illness, POSITIVE COVID-19 infection; Diabetic foot ulcer; Hyponatremia; Lactic acidosis Seen and examined at bedside; 24hour events reviewed; nursing and respiratory care staff consulted; no adverse overnight events reported to me; resting peacefully in bed; looks even stronger; FiO2 at 50%on High flow oxygen. States she is feeling better No diarrhea, no vomiting, no fevers overnight Objective Vital Signs - 12hr 01/26/20 01/26/20 01/26/20 03:10 03:13 05:29 Temperature 100 F H Pulse Rate 91 H Respiratory Rate Blood Pressure O2 Sat by Pulse 94 96 Oximetry 01/26/20 01/26/20 01/26/20 05:31 05:35 09:15 Temperature 99.5 F Pulse Rate 96 H 100 H Respiratory Rate Blood Pressure 122/67 146/87 O2 Sat by Pulse Oximetry 01/26/20 01/26/20 01/26/20 09:24 12:54 13:11 Temperature 101.2 F H Pulse Rate 100 H 93 H 93 H Respiratory 22 Rate Blood Pressure 146/87 129/79 129/79 O2 Sat by Pulse 97 Oximetry Constitutional: alert, other (young obese AAF, normocephalic with mildly increased resp effort at rest) Eyes: non-icteric ENT: oropharynx moist Neck: supple, no lymphadenopathy, no JVD Effort: mildly labored Ascultation: Bilateral: diminished breath sounds, rales (bases) Percussion: Bilateral: not dull Cardiovascular: regular rate and rhythm Gastrointestinal: normoactive bowel sounds, soft, non-tender, non-distended Integumentary: normal Extremities: no cyanosis, no edema, pulses normal, no ischemia or petechiae Neurologic: normal mental status, non-focal exam, pupils equal and round, CN II- XII normal Psychiatric: mood appropriate, affect normal CBC and BMP: 01/26/20 05:40 01/27/20 05:14 ABG, PT/INR, D-dimer: ABG ABG pH 7.485 pH Units (7.350-7.450) H 01/24/20 12:50 ABG pCO2 30.2 mm Hg 01/24/20 12:50 ABG pO2 63.4 mm Hg (80.0-90.0) L 01/24/20 12:50 ABG O2 Saturation 98.0 % (95.0-99.0) 01/24/20 12:50 PT/INR, D-dimer PT 15.6 Sec. (12.2-14.9) H 01/17/20 18:28 INR 1.22 (0.87-1.13) H 01/17/20 18:28 D-Dimer 2624.11 ng/mlDDU (0-234) H 01/26/20 05:40 Abnormal lab findings: Abnormal Labs 01/17/20 01/17/20 01/17/20 18:28 18:28 18:28 WBC MCH 26 L RDW Lymph % (Auto) 9.3 L Lymph # 1.0 L Seg Neutrophils % 86.7 H Seg Neuts % (Manual) Lymphocytes % (Manual) Nucleated RBC % Seg Neutrophils # 9.6 H Seg Neutrophils # Man Lymphocytes # (Manual) PT 15.6 H INR 1.22 H D-Dimer ABG pH ABG pO2 ABG Hemoglobin Sodium 126 L Potassium Chloride 89.3 L Carbon Dioxide 19 L Glucose 397 H POC Glucose Hemoglobin A1c Lactic Acid Calcium Magnesium Ferritin C-Reactive Protein Total Protein 9.0 H Vancomycin Trough 01/17/20 01/17/20 01/17/20 18:28 22:58 22:58 WBC MCH RDW Lymph % (Auto) Lymph # Seg Neutrophils % Seg Neuts % (Manual) Lymphocytes % (Manual) Nucleated RBC % Seg Neutrophils # Seg Neutrophils # Man Lymphocytes # (Manual) PT INR D-Dimer ABG pH ABG pO2 ABG Hemoglobin Sodium Potassium Chloride Carbon Dioxide Glucose POC Glucose Hemoglobin A1c Lactic Acid 3.40 H* 2.30 H* Calcium Magnesium 1.50 L Ferritin C-Reactive Protein 16.60 H Total Protein Vancomycin Trough 01/18/20 01/18/20 01/18/20 00:46 06:34 08:30 WBC MCH 26 L RDW 12.7 L Lymph % (Auto) Lymph # Seg Neutrophils % 80.1 H Seg Neuts % (Manual) Lymphocytes % (Manual) Nucleated RBC % Seg Neutrophils # Seg Neutrophils # Man Lymphocytes # (Manual) PT INR D-Dimer ABG pH ABG pO2 ABG Hemoglobin Sodium Potassium Chloride Carbon Dioxide Glucose POC Glucose 338 H 266 H Hemoglobin A1c Lactic Acid Calcium Magnesium Ferritin C-Reactive Protein Total Protein Vancomycin Trough 01/18/20 01/18/20 01/18/20 08:30 08:35 12:30 WBC MCH RDW Lymph % (Auto) Lymph # Seg Neutrophils % Seg Neuts % (Manual) Lymphocytes % (Manual) Nucleated RBC % Seg Neutrophils # Seg Neutrophils # Man Lymphocytes # (Manual) PT INR D-Dimer ABG pH ABG pO2 ABG Hemoglobin Sodium 135 L D Potassium Chloride Carbon Dioxide Glucose 250 H POC Glucose 224 H 213 H Hemoglobin A1c Lactic Acid Calcium Magnesium Ferritin C-Reactive Protein Total Protein Vancomycin Trough 01/18/20 01/18/20 01/18/20 12:47 16:56 22:03 WBC MCH RDW Lymph % (Auto) Lymph # Seg Neutrophils % Seg Neuts % (Manual) Lymphocytes % (Manual) Nucleated RBC % Seg Neutrophils # Seg Neutrophils # Man Lymphocytes # (Manual) PT INR D-Dimer ABG pH ABG pO2 ABG Hemoglobin Sodium Potassium Chloride Carbon Dioxide Glucose POC Glucose 270 H 239 H Hemoglobin A1c 11.6 H Lactic Acid Calcium Magnesium Ferritin C-Reactive Protein Total Protein Vancomycin Trough 01/19/20 01/19/20 01/19/20 06:15 11:48 13:09 WBC MCH 26 L RDW Lymph % (Auto) Lymph # Seg Neutrophils % Seg Neuts % (Manual) Lymphocytes % (Manual) Nucleated RBC % Seg Neutrophils # Seg Neutrophils # Man Lymphocytes # (Manual) PT INR D-Dimer ABG pH ABG pO2 ABG Hemoglobin Sodium Potassium Chloride Carbon Dioxide Glucose POC Glucose 248 H 268 H Hemoglobin A1c Lactic Acid Calcium Magnesium Ferritin C-Reactive Protein Total Protein Vancomycin Trough 01/19/20 01/19/20 01/20/20 17:44 21:09 09:03 WBC MCH RDW Lymph % (Auto) Lymph # Seg Neutrophils % Seg Neuts % (Manual) Lymphocytes % (Manual) Nucleated RBC % Seg Neutrophils # Seg Neutrophils # Man Lymphocytes # (Manual) PT INR D-Dimer ABG pH ABG pO2 ABG Hemoglobin Sodium Potassium Chloride Carbon Dioxide Glucose POC Glucose 214 H 261 H 241 H Hemoglobin A1c Lactic Acid Calcium Magnesium Ferritin C-Reactive Protein Total Protein Vancomycin Trough 01/20/20 01/20/20 01/20/20 12:10 17:00 19:43 WBC MCH RDW Lymph % (Auto) Lymph # Seg Neutrophils % Seg Neuts % (Manual) Lymphocytes % (Manual) Nucleated RBC % Seg Neutrophils # Seg Neutrophils # Man Lymphocytes # (Manual) PT INR D-Dimer ABG pH ABG pO2 ABG Hemoglobin Sodium Potassium Chloride Carbon Dioxide Glucose POC Glucose 284 H 272 H Hemoglobin A1c Lactic Acid Calcium Magnesium Ferritin C-Reactive Protein Total Protein Vancomycin Trough 4.0 L 01/20/20 01/21/20 01/21/20 22:39 09:29 11:41 WBC MCH 26 L RDW Lymph % (Auto) Lymph # Seg Neutrophils % Seg Neuts % (Manual) Lymphocytes % (Manual) Nucleated RBC % Seg Neutrophils # Seg Neutrophils # Man Lymphocytes # (Manual) PT INR D-Dimer ABG pH ABG pO2 ABG Hemoglobin Sodium Potassium Chloride Carbon Dioxide Glucose POC Glucose 248 H 238 H Hemoglobin A1c Lactic Acid Calcium Magnesium Ferritin C-Reactive Protein Total Protein Vancomycin Trough 01/21/20 01/21/20 01/21/20 11:41 12:27 16:55 WBC MCH RDW Lymph % (Auto) Lymph # Seg Neutrophils % Seg Neuts % (Manual) Lymphocytes % (Manual) Nucleated RBC % Seg Neutrophils # Seg Neutrophils # Man Lymphocytes # (Manual) PT INR D-Dimer ABG pH ABG pO2 ABG Hemoglobin Sodium 132 L Potassium 3.5 L Chloride 97.0 L Carbon Dioxide 19 L Glucose 274 H POC Glucose 264 H 261 H Hemoglobin A1c Lactic Acid Calcium Magnesium Ferritin C-Reactive Protein Total Protein Vancomycin Trough 01/21/20 01/22/2020 22:39 09:05 12:57 WBC MCH RDW Lymph % (Auto) Lymph # Seg Neutrophils % Seg Neuts % (Manual) Lymphocytes % (Manual) Nucleated RBC % Seg Neutrophils # Seg Neutrophils # Man Lymphocytes # (Manual) PT INR D-Dimer ABG pH ABG pO2 ABG Hemoglobin Sodium Potassium Chloride Carbon Dioxide Glucose POC Glucose 243 H 258 H 252 H Hemoglobin A1c Lactic Acid Calcium Magnesium Ferritin C-Reactive Protein Total Protein Vancomycin Trough 01/22/20 01/22/20 01/23/20 17:14 21:30 09:03 WBC MCH RDW Lymph % (Auto) Lymph # Seg Neutrophils % Seg Neuts % (Manual) Lymphocytes % (Manual) Nucleated RBC % Seg Neutrophils # Seg Neutrophils # Man Lymphocytes # (Manual) PT INR D-Dimer ABG pH ABG pO2 ABG Hemoglobin Sodium Potassium Chloride Carbon Dioxide Glucose POC Glucose 306 H 217 H 156 H Hemoglobin A1c Lactic Acid Calcium Magnesium Ferritin C-Reactive Protein Total Protein Vancomycin Trough 01/23/20 01/23/20 01/23/20 10:36 11:12 17:11 WBC MCH RDW Lymph % (Auto) Lymph # Seg Neutrophils % Seg Neuts % (Manual) Lymphocytes % (Manual) Nucleated RBC % Seg Neutrophils # Seg Neutrophils # Man Lymphocytes # (Manual) PT INR D-Dimer ABG pH ABG pO2 ABG Hemoglobin Sodium Potassium 3.0 L Chloride Carbon Dioxide 21 L Glucose 266 H POC Glucose 244 H 238 H Hemoglobin A1c Lactic Acid Calcium 8.3 L Magnesium Ferritin C-Reactive Protein Total Protein Vancomycin Trough 01/23/20 01/24/20 01/24/20 22:57 06:03 12:12 WBC MCH RDW Lymph % (Auto) Lymph # Seg Neutrophils % Seg Neuts % (Manual) Lymphocytes % (Manual) Nucleated RBC % Seg Neutrophils # Seg Neutrophils # Man Lymphocytes # (Manual) PT INR D-Dimer ABG pH ABG pO2 ABG Hemoglobin Sodium Potassium 3.2 L Chloride Carbon Dioxide 19 L Glucose 231 H POC Glucose 228 H 210 H Hemoglobin A1c Lactic Acid Calcium 8.2 L Magnesium Ferritin C-Reactive Protein Total Protein Vancomycin Trough 01/24/20 01/24/20 01/24/20 12:50 19:01 21:49 WBC MCH RDW Lymph % (Auto) Lymph # Seg Neutrophils % Seg Neuts % (Manual) Lymphocytes % (Manual) Nucleated RBC % Seg Neutrophils # Seg Neutrophils # Man Lymphocytes # (Manual) PT INR D-Dimer ABG pH 7.485 H ABG pO2 63.4 L ABG Hemoglobin 5.0 L Sodium Potassium Chloride Carbon Dioxide Glucose POC Glucose 183 H 193 H Hemoglobin A1c Lactic Acid Calcium Magnesium Ferritin C-Reactive Protein Total Protein Vancomycin Trough 01/25/20 01/25/20 01/25/20 09:13 16:58 22:23 WBC MCH RDW Lymph % (Auto) Lymph # Seg Neutrophils % Seg Neuts % (Manual) Lymphocytes % (Manual) Nucleated RBC % Seg Neutrophils # Seg Neutrophils # Man Lymphocytes # (Manual) PT INR D-Dimer ABG pH ABG pO2 ABG Hemoglobin Sodium Potassium Chloride Carbon Dioxide Glucose POC Glucose 196 H 231 H 159 H Hemoglobin A1c Lactic Acid Calcium Magnesium Ferritin C-Reactive Protein Total Protein Vancomycin Trough 01/26/20 01/26/20 01/26/20 05:40 05:40 05:40 WBC 16.4 H MCH 26 L RDW 12.9 L Lymph % (Auto) Lymph # Seg Neutrophils % Seg Neuts % (Manual) 90.0 H Lymphocytes % (Manual) 1.0 L Nucleated RBC % 1.0 H Seg Neutrophils # Seg Neutrophils # Man 14.8 H Lymphocytes # (Manual) 0.2 L PT INR D-Dimer 2624.11 H ABG pH ABG pO2 ABG Hemoglobin Sodium 135 L Potassium 2.7 L* Chloride Carbon Dioxide 21 L Glucose 132 H POC Glucose Hemoglobin A1c Lactic Acid Calcium 8.0 L Magnesium Ferritin C-Reactive Protein Total Protein Vancomycin Trough 01/26/20 01/26/20 01/26/20 05:40 05:40 08:58 WBC MCH RDW Lymph % (Auto) Lymph # Seg Neutrophils % Seg Neuts % (Manual) Lymphocytes % (Manual) Nucleated RBC % Seg Neutrophils # Seg Neutrophils # Man Lymphocytes # (Manual) PT INR D-Dimer ABG pH ABG pO2 ABG Hemoglobin Sodium Potassium Chloride Carbon Dioxide Glucose POC Glucose 131 H Hemoglobin A1c Lactic Acid Calcium Magnesium Ferritin 2758.0 H C-Reactive Protein 26.90 H Total Protein Vancomycin Trough 01/26/20 13:00 WBC MCH RDW Lymph % (Auto) Lymph # Seg Neutrophils % Seg Neuts % (Manual) Lymphocytes % (Manual) Nucleated RBC % Seg Neutrophils # Seg Neutrophils # Man Lymphocytes # (Manual) PT INR D-Dimer ABG pH ABG pO2 ABG Hemoglobin Sodium Potassium Chloride Carbon Dioxide Glucose POC Glucose 136 H Hemoglobin A1c Lactic Acid Calcium Magnesium Ferritin C-Reactive Protein Total Protein Vancomycin Trough Chest x-ray: image reviewed Allied health notes reviewed: nursing
--- NOTE | 2020-01-26 14:41 | Progress Note ---
Assessment and Plan - Patient Problems (1) Pneumonia Current Visit: Yes Status: Acute Plan to address problem: Patient currently with a left lower lobe pneumonia. Treated with cefepime. Patient remains febrile. Actual source unknown foot versus lung disease. Versus acute viral illness. Still has persistent leukocytosis at 16. (2) SIRS (systemic inflammatory response syndrome) Current Visit: Yes Status: Acute (3) Open wound of great toe Current Visit: Yes Status: Acute Plan to address problem: Patient diabetic foot wound. Being treated local wound care plus vancomycin. When patient more stable obtain MRI. (4) Hypertension Current Visit: Yes Status: Acute Plan to address problem: Fair control with Coreg amlodipine. (5) Uncontrolled diabetes mellitus Current Visit: Yes Status: Acute Plan to address problem: Will need to improve glycemic control. Better since increasing 7030 to 12 units twice daily. Will advance tomorrow depending on results. (6) Hypokalemia Current Visit: Yes Status: Acute Plan to address problem: Hypokalemia we will treat IV today. Also given additional p.o. Recheck a.m. (7) COVID-19 virus detected Current Visit: Yes Status: Acute Plan to address problem: Patient continues to be on quarantine for [place] 19 detection. Most likely source of her fever. Patient at high risk given diabetes pneumonia and recent diabetic foot wound. Subjective Principal diagnosis: Severe Sepsis; LEV PNA; DM II; Morbid obesity; R/O COVID-19 infection Interval history: No new events overnight. Patient T-max 101. Pain control. Objective - Constitutional Vitals: Vital Signs - 12hr 01/26/20 01/26/20 01/26/20 03:10 03:13 05:29 Temperature 100 F H Pulse Rate 91 H Respiratory Rate Blood Pressure O2 Sat by Pulse 94 96 Oximetry 01/26/20 01/26/20 01/26/20 05:31 05:35 09:15 Temperature 99.5 F Pulse Rate 96 H 100 H Respiratory Rate Blood Pressure 122/67 146/87 O2 Sat by Pulse Oximetry 01/26/20 01/26/20 01/26/20 09:24 12:54 13:11 Temperature 101.2 F H Pulse Rate 100 H 93 H 93 H Respiratory 22 Rate Blood Pressure 146/87 129/79 129/79 O2 Sat by Pulse 97 Oximetry General appearance: Present: no acute distress - EENT Eyes: PERRL, EOM intact ENT: hearing intact, clear oral mucosa, dentition normal - Neck Neck: supple, normal ROM - Respiratory Respiratory: bilateral: diminished - Cardiovascular Rhythm: regular Extremities: pulses intact, No edema, normal color, Full ROM Extremity abnormal: other (Foot wound bandaged. Surgical site bandaged.) - Musculoskeletal Musculoskeletal: 1, strength equal bilaterally - Psychiatric Psychiatric: memory intact, appropriate mood/affect, intact judgment & insight - Labs CBC & Chem 7: 01/26/20 05:40 01/26/20 05:40 Labs: Abnormal lab results 01/25/20 01/25/20 01/26/20 Range/Units 16:58 22:23 05:40 WBC 16.4 H (4.5-11.0) K/mm3 MCH 26 L (28-32) pg RDW 12.9 L (13.2-15.2) % Seg Neuts % (Manual) 90.0 H (40.0-70.0) % Lymphocytes % (Manual) 1.0 L (13.4-35.0) % Nucleated RBC % 1.0 H (0.0-0.9) % Seg Neutrophils # Man 14.8 H (1.8-7.7) K/mm3 Lymphocytes # (Manual) 0.2 L (1.2-5.4) K/mm3 D-Dimer (0-234) ng/mlDDU Sodium (137-145) mmol/L Potassium (3.6-5.0) mmol/L Carbon Dioxide (22-30) mmol/L Glucose (65-100) mg/dL POC Glucose 231 H 159 H (70-105) Calcium (8.4-10.2) mg/dL Ferritin (13.0-400.0) ng/mL C-Reactive Protein (0.00-1.30) mg/dL 01/26/20 01/26/20 01/26/20 Range/Units 05:40 05:40 05:40 WBC (4.5-11.0) K/mm3 MCH (28-32) pg RDW (13.2-15.2) % Seg Neuts % (Manual) (40.0-70.0) % Lymphocytes % (Manual) (13.4-35.0) % Nucleated RBC % (0.0-0.9) % Seg Neutrophils # Man (1.8-7.7) K/mm3 Lymphocytes # (Manual) (1.2-5.4) K/mm3 D-Dimer 2624.11 H (0-234) ng/mlDDU Sodium 135 L (137-145) mmol/L Potassium 2.7 L* (3.6-5.0) mmol/L Carbon Dioxide 21 L (22-30) mmol/L Glucose 132 H (65-100) mg/dL POC Glucose (70-105) Calcium 8.0 L (8.4-10.2) mg/dL Ferritin 2758.0 H (13.0-400.0) ng/mL C-Reactive Protein (0.00-1.30) mg/dL 01/26/20 01/26/20 01/26/20 Range/Units 05:40 08:58 13:00 WBC (4.5-11.0) K/mm3 MCH (28-32) pg RDW (13.2-15.2) % Seg Neuts % (Manual) (40.0-70.0) % Lymphocytes % (Manual) (13.4-35.0) % Nucleated RBC % (0.0-0.9) % Seg Neutrophils # Man (1.8-7.7) K/mm3 Lymphocytes # (Manual) (1.2-5.4) K/mm3 D-Dimer (0-234) ng/mlDDU Sodium (137-145) mmol/L Potassium (3.6-5.0) mmol/L Carbon Dioxide (22-30) mmol/L Glucose (65-100) mg/dL POC Glucose 131 H 136 H (70-105) Calcium (8.4-10.2) mg/dL Ferritin (13.0-400.0) ng/mL C-Reactive Protein 26.90 H (0.00-1.30) mg/dL
[2020-01-26] MEDS ORDERED: POTASSIUM CHLORIDE ER 20 MEQ TAB PO ONE (14:42)
[2020-01-27] MEDS: CEFEPIME/NS 2 GM/100 ML 2 GM/100 ML BAG IV SCH ×3 (05:10→23:14)
[2020-01-27] MEDS: HEPARIN 5,000 UNIT/1 ML VIAL SUB-Q SCH ×3 (05:11→23:14)
[2020-01-27] MEDS: hydrALAZINE 25 MG TAB PO SCH ×3 (05:11→23:13)
[2020-01-27] MEDS: ACETAMINOPHEN 325 MG TAB PO PRN ×3 (05:11→19:27)
[2020-01-27] MEDS: VANCOMYCIN 2,000 MG in SODIUM CHLORIDE 0.9% 500 ML 500 ML IV SCH ×2 (06:56→15:47)
[2020-01-27 07:24] LABS: Calcium 7.6 mg/dL (8.4-10.2)
[2020-01-27] MEDS: INSULIN NPH/REGULAR 70/30 INJ SUB-Q SCH ×2 (08:05→17:06)
[2020-01-27] MEDS: INSULIN REGULAR, HUMAN 100 UNITS/1 ML SUB-Q SCH ×4 (08:24→22:50)
[2020-01-27] MEDS: FAMOTIDINE 20 MG TAB PO SCH (09:59)
[2020-01-27] MEDS: carvediloL 25 MG TAB PO SCH ×2 (09:59→23:13)
[2020-01-27] MEDS: LISINOPRIL 20 MG TAB PO SCH (09:59)
[2020-01-27] MEDS: amLODIPine 10 MG TAB PO SCH (10:00)
[2020-01-27] MEDS: MORPHINE 2 MG/1 ML INJ IV PRN (10:08)
--- NOTE | 2020-01-27 10:40 | Progress Note ---
Assessment and Plan Severe Sepsis Left upper lobe pneumonia Diabetes II Morbid obesity Febrile illness POSITIVE COVID-19 infection Diabetic foot ulcer Hyponatremia Lactic acidosis - prn CXR AND ABG WILL ORDER FOR TUESDAY -CONTINUE TO MONITOR RESPIRATORY STATUS CLOSELY- she is at risk for acute decompensation - continue HFNC via vapotherm system - continue contact , airborne and droplet precautions for POSITIVE COVID-19 -Order d-dimer, ferritin , CRP and LDH as biomarkers to evaluate/predict risk for preogression to ARDS - continue to wean supplemental oxygen to keep O2 sats > 90% - prn Bronchodilators (JURGEN) with pulm hygiene per RT - avoid nephrotoxins, renally dose all medications - prn analgesia per pain score - mobility protocols to prevent pressure ulcers - accuchecks with glycemic control per SSI for target blood glucose < 180 mg/dL - GI & VTE prophylaxis - Flu & pneumovax per protocol - continue other care per attending / other consultants ... re-evaluate in am & prn Subjective Date of service: 01/27/20 Principal diagnosis: Severe Sepsis; LEV PNA; DM II; Morbid obesity; R/O COVID-19 infection Interval history: Patient is seen today for: Severe Sepsis; LEV pneumonia; Diabetes II; Morbid obesity; Febrile illness, POSITIVE COVID-19 infection; Diabetic foot ulcer; Hyponatremia; Lactic acidosis Seen and examined at bedside; 24hour events reviewed; nursing and respiratory care staff consulted; no adverse overnight events reported to me; resting peacefully in bed; looks even stronger; FiO2 at 50% on High flow oxygen. States she is feeling better No diarrhea, no vomiting, no fevers overnight Objective Vital Signs - 12hr 01/27/20 01/27/20 01/27/20 03:53 05:11 08:00 Temperature 102.9 F H Pulse Rate 109 H 109 H Respiratory 28 H Rate Blood Pressure 115/58 115/58 O2 Sat by Pulse 93 98 Oximetry 01/27/20 08:13 Temperature Pulse Rate Respiratory 20 Rate Blood Pressure O2 Sat by Pulse 94 Oximetry Constitutional: alert, other (young obese AAF, normocephalic with mildly increased resp effort at rest) Eyes: non-icteric ENT: oropharynx moist Neck: supple, no lymphadenopathy, no JVD Effort: mildly labored Ascultation: Bilateral: diminished breath sounds, rales (bases) Percussion: Bilateral: not dull Cardiovascular: regular rate and rhythm Gastrointestinal: normoactive bowel sounds, soft, non-tender, non-distended Integumentary: normal Extremities: no cyanosis, no edema, pulses normal, no ischemia or petechiae Neurologic: normal mental status, non-focal exam, pupils equal and round, CN II- XII normal Psychiatric: mood appropriate, affect normal CBC and BMP: 01/29/20 07:29 01/29/20 07:29 ABG, PT/INR, D-dimer: ABG ABG pH 7.485 pH Units (7.350-7.450) H 01/24/20 12:50 ABG pCO2 30.2 mm Hg 01/24/20 12:50 ABG pO2 63.4 mm Hg (80.0-90.0) L 01/24/20 12:50 ABG O2 Saturation 98.0 % (95.0-99.0) 01/24/20 12:50 PT/INR, D-dimer PT 15.6 Sec. (12.2-14.9) H 01/17/20 18:28 INR 1.22 (0.87-1.13) H 01/17/20 18:28 D-Dimer 2624.11 ng/mlDDU (0-234) H 01/26/20 05:40 Abnormal lab findings: Abnormal Labs 01/17/20 01/17/20 01/17/20 18:28 18:28 18:28 WBC MCH 26 L RDW Lymph % (Auto) 9.3 L Lymph # 1.0 L Seg Neutrophils % 86.7 H Seg Neuts % (Manual) Lymphocytes % (Manual) Nucleated RBC % Seg Neutrophils # 9.6 H Seg Neutrophils # Man Lymphocytes # (Manual) PT 15.6 H INR 1.22 H D-Dimer ABG pH ABG pO2 ABG Hemoglobin Sodium 126 L Potassium Chloride 89.3 L Carbon Dioxide 19 L BUN Creatinine Glucose 397 H POC Glucose Hemoglobin A1c Lactic Acid Calcium Magnesium Ferritin C-Reactive Protein Total Protein 9.0 H Vancomycin Trough 01/17/20 01/17/20 01/17/20 18:28 22:58 22:58 WBC MCH RDW Lymph % (Auto) Lymph # Seg Neutrophils % Seg Neuts % (Manual) Lymphocytes % (Manual) Nucleated RBC % Seg Neutrophils # Seg Neutrophils # Man Lymphocytes # (Manual) PT INR D-Dimer ABG pH ABG pO2 ABG Hemoglobin Sodium Potassium Chloride Carbon Dioxide BUN Creatinine Glucose POC Glucose Hemoglobin A1c Lactic Acid 3.40 H* 2.30 H* Calcium Magnesium 1.50 L Ferritin C-Reactive Protein 16.60 H Total Protein Vancomycin Trough 01/18/20 01/18/20 01/18/20 00:46 06:34 08:30 WBC MCH 26 L RDW 12.7 L Lymph % (Auto) Lymph # Seg Neutrophils % 80.1 H Seg Neuts % (Manual) Lymphocytes % (Manual) Nucleated RBC % Seg Neutrophils # Seg Neutrophils # Man Lymphocytes # (Manual) PT INR D-Dimer ABG pH ABG pO2 ABG Hemoglobin Sodium Potassium Chloride Carbon Dioxide BUN Creatinine Glucose POC Glucose 338 H 266 H Hemoglobin A1c Lactic Acid Calcium Magnesium Ferritin C-Reactive Protein Total Protein Vancomycin Trough 01/18/20 01/18/20 01/18/20 08:30 08:35 12:30 WBC MCH RDW Lymph % (Auto) Lymph # Seg Neutrophils % Seg Neuts % (Manual) Lymphocytes % (Manual) Nucleated RBC % Seg Neutrophils # Seg Neutrophils # Man Lymphocytes # (Manual) PT INR D-Dimer ABG pH ABG pO2 ABG Hemoglobin Sodium 135 L D Potassium Chloride Carbon Dioxide BUN Creatinine Glucose 250 H POC Glucose 224 H 213 H Hemoglobin A1c Lactic Acid Calcium Magnesium Ferritin C-Reactive Protein Total Protein Vancomycin Trough 01/18/20 01/18/20 01/18/20 12:47 16:56 22:03 WBC MCH RDW Lymph % (Auto) Lymph # Seg Neutrophils % Seg Neuts % (Manual) Lymphocytes % (Manual) Nucleated RBC % Seg Neutrophils # Seg Neutrophils # Man Lymphocytes # (Manual) PT INR D-Dimer ABG pH ABG pO2 ABG Hemoglobin Sodium Potassium Chloride Carbon Dioxide BUN Creatinine Glucose POC Glucose 270 H 239 H Hemoglobin A1c 11.6 H Lactic Acid Calcium Magnesium Ferritin C-Reactive Protein Total Protein Vancomycin Trough 01/19/20 01/19/20 01/19/20 06:15 11:48 13:09 WBC MCH 26 L RDW Lymph % (Auto) Lymph # Seg Neutrophils % Seg Neuts % (Manual) Lymphocytes % (Manual) Nucleated RBC % Seg Neutrophils # Seg Neutrophils # Man Lymphocytes # (Manual) PT INR D-Dimer ABG pH ABG pO2 ABG Hemoglobin Sodium Potassium Chloride Carbon Dioxide BUN Creatinine Glucose POC Glucose 248 H 268 H Hemoglobin A1c Lactic Acid Calcium Magnesium Ferritin C-Reactive Protein Total Protein Vancomycin Trough 01/19/20 01/19/20 01/20/20 17:44 21:09 09:03 WBC MCH RDW Lymph % (Auto) Lymph # Seg Neutrophils % Seg Neuts % (Manual) Lymphocytes % (Manual) Nucleated RBC % Seg Neutrophils # Seg Neutrophils # Man Lymphocytes # (Manual) PT INR D-Dimer ABG pH ABG pO2 ABG Hemoglobin Sodium Potassium Chloride Carbon Dioxide BUN Creatinine Glucose POC Glucose 214 H 261 H 241 H Hemoglobin A1c Lactic Acid Calcium Magnesium Ferritin C-Reactive Protein Total Protein Vancomycin Trough 01/20/20 01/20/20 01/20/20 12:10 17:00 19:43 WBC MCH RDW Lymph % (Auto) Lymph # Seg Neutrophils % Seg Neuts % (Manual) Lymphocytes % (Manual) Nucleated RBC % Seg Neutrophils # Seg Neutrophils # Man Lymphocytes # (Manual) PT INR D-Dimer ABG pH ABG pO2 ABG Hemoglobin Sodium Potassium Chloride Carbon Dioxide BUN Creatinine Glucose POC Glucose 284 H 272 H Hemoglobin A1c Lactic Acid Calcium Magnesium Ferritin C-Reactive Protein Total Protein Vancomycin Trough 4.0 L 01/20/20 01/21/20 01/21/20 22:39 09:29 11:41 WBC MCH 26 L RDW Lymph % (Auto) Lymph # Seg Neutrophils % Seg Neuts % (Manual) Lymphocytes % (Manual) Nucleated RBC % Seg Neutrophils # Seg Neutrophils # Man Lymphocytes # (Manual) PT INR D-Dimer ABG pH ABG pO2 ABG Hemoglobin Sodium Potassium Chloride Carbon Dioxide BUN Creatinine Glucose POC Glucose 248 H 238 H Hemoglobin A1c Lactic Acid Calcium Magnesium Ferritin C-Reactive Protein Total Protein Vancomycin Trough 01/21/20 01/21/20 01/21/20 11:41 12:27 16:55 WBC MCH RDW Lymph % (Auto) Lymph # Seg Neutrophils % Seg Neuts % (Manual) Lymphocytes % (Manual) Nucleated RBC % Seg Neutrophils # Seg Neutrophils # Man Lymphocytes # (Manual) PT INR D-Dimer ABG pH ABG pO2 ABG Hemoglobin Sodium 132 L Potassium 3.5 L Chloride 97.0 L Carbon Dioxide 19 L BUN Creatinine Glucose 274 H POC Glucose 264 H 261 H Hemoglobin A1c Lactic Acid Calcium Magnesium Ferritin C-Reactive Protein Total Protein Vancomycin Trough 01/21/20 01/22/20 01/22/20 22:39 09:05 12:57 WBC MCH RDW Lymph % (Auto) Lymph # Seg Neutrophils % Seg Neuts % (Manual) Lymphocytes % (Manual) Nucleated RBC % Seg Neutrophils # Seg Neutrophils # Man Lymphocytes # (Manual) PT INR D-Dimer ABG pH ABG pO2 ABG Hemoglobin Sodium Potassium Chloride Carbon Dioxide BUN Creatinine Glucose POC Glucose 243 H 258 H 252 H Hemoglobin A1c Lactic Acid Calcium Magnesium Ferritin C-Reactive Protein Total Protein Vancomycin Trough 01/22/20 01/22/20 01/23/20 17:14 21:30 09:03 WBC MCH RDW Lymph % (Auto) Lymph # Seg Neutrophils % Seg Neuts % (Manual) Lymphocytes % (Manual) Nucleated RBC % Seg Neutrophils # Seg Neutrophils # Man Lymphocytes # (Manual) PT INR D-Dimer ABG pH ABG pO2 ABG Hemoglobin Sodium Potassium Chloride Carbon Dioxide BUN Creatinine Glucose POC Glucose 306 H 217 H 156 H Hemoglobin A1c Lactic Acid Calcium Magnesium Ferritin C-Reactive Protein Total Protein Vancomycin Trough 01/23/20 01/23/20 01/23/20 10:36 11:12 17:11 WBC MCH RDW Lymph % (Auto) Lymph # Seg Neutrophils % Seg Neuts % (Manual) Lymphocytes % (Manual) Nucleated RBC % Seg Neutrophils # Seg Neutrophils # Man Lymphocytes # (Manual) PT INR D-Dimer ABG pH ABG pO2 ABG Hemoglobin Sodium Potassium 3.0 L Chloride Carbon Dioxide 21 L BUN Creatinine Glucose 266 H POC Glucose 244 H 238 H Hemoglobin A1c Lactic Acid Calcium 8.3 L Magnesium Ferritin C-Reactive Protein Total Protein Vancomycin Trough 01/23/20 01/24/20 01/24/20 22:57 06:03 12:12 WBC MCH RDW Lymph % (Auto) Lymph # Seg Neutrophils % Seg Neuts % (Manual) Lymphocytes % (Manual) Nucleated RBC % Seg Neutrophils # Seg Neutrophils # Man Lymphocytes # (Manual) PT INR D-Dimer ABG pH ABG pO2 ABG Hemoglobin Sodium Potassium 3.2 L Chloride Carbon Dioxide 19 L BUN Creatinine Glucose 231 H POC Glucose 228 H 210 H Hemoglobin A1c Lactic Acid Calcium 8.2 L Magnesium Ferritin C-Reactive Protein Total Protein Vancomycin Trough 01/24/20 01/24/20 01/24/20 12:50 19:01 21:49 WBC MCH RDW Lymph % (Auto) Lymph # Seg Neutrophils % Seg Neuts % (Manual) Lymphocytes % (Manual) Nucleated RBC % Seg Neutrophils # Seg Neutrophils # Man Lymphocytes # (Manual) PT INR D-Dimer ABG pH 7.485 H ABG pO2 63.4 L ABG Hemoglobin 5.0 L Sodium Potassium Chloride Carbon Dioxide BUN Creatinine Glucose POC Glucose 183 H 193 H Hemoglobin A1c Lactic Acid Calcium Magnesium Ferritin C-Reactive Protein Total Protein Vancomycin Trough 01/25/20 01/25/20 01/25/20 09:13 16:58 22:23 WBC MCH RDW Lymph % (Auto) Lymph # Seg Neutrophils % Seg Neuts % (Manual) Lymphocytes % (Manual) Nucleated RBC % Seg Neutrophils # Seg Neutrophils # Man Lymphocytes # (Manual) PT INR D-Dimer ABG pH ABG pO2 ABG Hemoglobin Sodium Potassium Chloride Carbon Dioxide BUN Creatinine Glucose POC Glucose 196 H 231 H 159 H Hemoglobin A1c Lactic Acid Calcium Magnesium Ferritin C-Reactive Protein Total Protein Vancomycin Trough 01/26/20 01/26/20 01/26/20 05:40 05:40 05:40 WBC 16.4 H MCH 26 L RDW 12.9 L Lymph % (Auto) Lymph # Seg Neutrophils % Seg Neuts % (Manual) 90.0 H Lymphocytes % (Manual) 1.0 L Nucleated RBC % 1.0 H Seg Neutrophils # Seg Neutrophils # Man 14.8 H Lymphocytes # (Manual) 0.2 L PT INR D-Dimer 2624.11 H ABG pH ABG pO2 ABG Hemoglobin Sodium 135 L Potassium 2.7 L* Chloride Carbon Dioxide 21 L BUN Creatinine Glucose 132 H POC Glucose Hemoglobin A1c Lactic Acid Calcium 8.0 L Magnesium Ferritin C-Reactive Protein Total Protein Vancomycin Trough 01/26/20 01/26/20 01/26/20 05:40 05:40 08:58 WBC MCH RDW Lymph % (Auto) Lymph # Seg Neutrophils % Seg Neuts % (Manual) Lymphocytes % (Manual) Nucleated RBC % Seg Neutrophils # Seg Neutrophils # Man Lymphocytes # (Manual) PT INR D-Dimer ABG pH ABG pO2 ABG Hemoglobin Sodium Potassium Chloride Carbon Dioxide BUN Creatinine Glucose POC Glucose 131 H Hemoglobin A1c Lactic Acid Calcium Magnesium Ferritin 2758.0 H C-Reactive Protein 26.90 H Total Protein Vancomycin Trough 01/26/20 01/26/20 01/26/20 13:00 16:30 21:22 WBC MCH RDW Lymph % (Auto) Lymph # Seg Neutrophils % Seg Neuts % (Manual) Lymphocytes % (Manual) Nucleated RBC % Seg Neutrophils # Seg Neutrophils # Man Lymphocytes # (Manual) PT INR D-Dimer ABG pH ABG pO2 ABG Hemoglobin Sodium Potassium Chloride Carbon Dioxide BUN Creatinine Glucose POC Glucose 136 H 146 H 139 H Hemoglobin A1c Lactic Acid Calcium Magnesium Ferritin C-Reactive Protein Total Protein Vancomycin Trough 01/27/20 01/27/20 05:14 07:37 WBC MCH RDW Lymph % (Auto) Lymph # Seg Neutrophils % Seg Neuts % (Manual) Lymphocytes % (Manual) Nucleated RBC % Seg Neutrophils # Seg Neutrophils # Man Lymphocytes # (Manual) PT INR D-Dimer ABG pH ABG pO2 ABG Hemoglobin Sodium 135 L Potassium 3.4 L D Chloride Carbon Dioxide 17 L BUN 24 H Creatinine 1.4 H D Glucose 143 H POC Glucose 133 H Hemoglobin A1c Lactic Acid Calcium 7.6 L Magnesium Ferritin C-Reactive Protein Total Protein Vancomycin Trough Allied health notes reviewed: nursing
--- NOTE | 2020-01-27 16:27 | Progress Note ---
Assessment and Plan - Patient Problems (1) Pneumonia Current Visit: Yes Status: Acute Plan to address problem: Patient currently with a left lower lobe pneumonia. Treated with cefepime. Patient remains febrile. Actual source unknown foot versus lung disease. Versus acute viral illness. We will follow-up labs in a.m. (2) SIRS (systemic inflammatory response syndrome) Current Visit: Yes Status: Acute Plan to address problem: Continue supportive care and treatment for community-acquired pneumonia. Continues to be febrile. Most likely secondary to the acute viral illness. (3) Open wound of great toe Current Visit: Yes Status: Acute Plan to address problem: Patient diabetic foot wound. Being treated local wound care plus vancomycin. When patient more stable obtain MRI. (4) Hypertension Current Visit: Yes Status: Acute Plan to address problem: Fair control with Coreg amlodipine. (5) Uncontrolled diabetes mellitus Current Visit: Yes Status: Acute Plan to address problem: Optimal control of blood sugar. Continue present management. (6) Hypokalemia Current Visit: Yes Status: Acute Plan to address problem: Hypokalemia we will treat IV today. Also given additional p.o. Recheck a.m. (7) COVID-19 virus detected Current Visit: Yes Status: Acute Plan to address problem: Continue treatment with Plaquenil. Subjective Date of service: 01/27/20 Principal diagnosis: Severe Sepsis; LEV PNA; DM II; Morbid obesity; R/O COVID-19 infection Interval history: Patient at present remains febrile on high flow O2. Renal function did improve. Otherwise hospital course unremarkable. Temp 102.9. Objective - Constitutional Vitals: Vital Signs - 12hr 01/27/20 01/27/20 01/27/20 05:11 08:00 08:13 Temperature Pulse Rate 109 H Respiratory 20 Rate Blood Pressure 115/58 Blood Pressure [Left] O2 Sat by Pulse 98 94 Oximetry 01/27/20 01/27/20 01/27/20 10:02 11:56 12:44 Temperature 99.3 F 99.3 F Pulse Rate 107 H 89 88 Respiratory 20 20 98 H Rate Blood Pressure 142/74 107/53 Blood Pressure 107/53 [Left] O2 Sat by Pulse 97 99 Oximetry 01/27/20 13:29 Temperature Pulse Rate 94 H Respiratory Rate Blood Pressure 109/58 Blood Pressure [Left] O2 Sat by Pulse Oximetry General appearance: Present: no acute distress - EENT Eyes: PERRL Ears: bilateral: normal - Neck Neck: supple, normal ROM - Respiratory Respiratory effort: normal Respiratory: bilateral: diminished - Cardiovascular Rhythm: regular Heart Sounds: Present: S1 & S2. Absent: gallop, rub - Gastrointestinal General gastrointestinal: Present: soft, non-tender, non-distended, normal bowel sounds - Integumentary Integumentary: clear, warm, dry - Musculoskeletal Musculoskeletal: generalized weakness - Neurologic Neurologic: moves all extremities - Labs CBC & Chem 7: 01/26/20 05:40 01/27/20 05:14 Labs: Abnormal lab results 01/26/20 01/26/20 01/27/20 Range/Units 16:30 21:22 05:14 Sodium 135 L (137-145) mmol/L Potassium 3.4 L D (3.6-5.0) mmol/L Carbon Dioxide 17 L (22-30) mmol/L BUN 24 H (7-17) mg/dL Creatinine 1.4 H D (0.7-1.2) mg/dL Glucose 143 H (65-100) mg/dL POC Glucose 146 H 139 H (70-105) Calcium 7.6 L (8.4-10.2) mg/dL 01/27/20 01/27/20 Range/Units 07:37 12:05 Sodium (137-145) mmol/L Potassium (3.6-5.0) mmol/L Carbon Dioxide (22-30) mmol/L BUN (7-17) mg/dL Creatinine (0.7-1.2) mg/dL Glucose (65-100) mg/dL POC Glucose 133 H 141 H (70-105) Calcium (8.4-10.2) mg/dL
--- NOTE | 2020-01-27 22:25 | Progress Note ---
Assessment and Plan Cultures: Blood culture 01/17/2020 no growth to date Urine culture 01/17/2020 no growth to date A/P: 29-year-old female past medical history diabetes admitted with acute sepsis secondary to right foot wound versus pneumonia. #Acute sepsis: still fever. Secondary to her foot wound versus pneumonia. #Severe COVID-19 pneumonia: Coronavirus testing has returned positive. Very high inflammatory markers - ferritin 2758. Risk for cytokine storm secondary to COVID and high risk for ARDS #Right foot wound: Will need MRI when more stable to rule out osteomyelitis of the toe. Continue empiric vancomycin and cefepime for now. #Diabetes: tight glycemic control for best outcomes. #CIPRIANO: renally adjust abx #Morbid obesity Recs: Continuos pulse oximetry Pulmonary on board ContinueCOVID isolationprecautions per [facility] protocol Start hydroxychloroquine 400 mg PO BID for 1 day then 200 mg PO BID for 4 days (total 5 days) with zinc 220 mg PO qday Obtain serial Ferritin, LDH, D-Dimer, CRP every 48h Daily QT monitoring - stop plaqenil if QT interval >500 Obtain IL-6 (sent out) to evaluate cytokine release syndrome due to COVID and consider IV tocilizumab (Actemra) (off-label use) Continue cefepime 2 g every 8 hours Continue vancomycin dosed per pharmacy Obtain MRI of the right foot -not urgent given present situation, can defer for now while treating for COVID-19. Thank you for the consult, we will continue to follow. Janett Duffy MD Infectious Diseases Card Room Manager [facility] ([facility]) M [phone] O [phone] Subjective Date of service: 01/27/20 Principal diagnosis: Severe Sepsis; LEV PNA; DM II; Morbid obesity; R/O COVID-19 infection Interval history: Remains stable on FIO2 20L 50% still low grade fever Objective - Exam Narrative Exam: Constitutional: Alert, cooperative on HFO2 Oral: limited due to lack opf PPE Cardiovascular: Respiratory: GI: Soft, obese Musculoskeletal: Right hallux wound, left foot callus Skin: Hem/Lymphatic: Psych: Mood ok. Affect normal Neurological: Awake, alert, oriented. No gross abnormality - Constitutional Vitals: Vital Signs Temp Pulse Resp BP Pulse Ox 100.5 F H 95 H 22 116/59 96 01/27/20 21:27 01/27/20 21:27 01/27/20 21:27 01/27/20 21:27 01/27/20 21:27 Temperature -Last 24 Hours Temperature 100.5 F Temperature 99.3 F Temperature 99.3 F Temperature 102.9 F - Labs CBC & Chem 7: 01/26/20 05:40 01/27/20 05:14 Labs: Abnormal lab results 01/26/20 01/27/20 01/27/20 Range/Units 21:22 05:14 07:37 Sodium 135 L (137-145) mmol/L Potassium 3.4 L D (3.6-5.0) mmol/L Carbon Dioxide 17 L (22-30) mmol/L BUN 24 H (7-17) mg/dL Creatinine 1.4 H D (0.7-1.2) mg/dL Glucose 143 H (65-100) mg/dL POC Glucose 139 H 133 H (70-105) Calcium 7.6 L (8.4-10.2) mg/dL 01/27/20 01/27/20 Range/Units 12:05 17:37 Sodium (137-145) mmol/L Potassium (3.6-5.0) mmol/L Carbon Dioxide (22-30) mmol/L BUN (7-17) mg/dL Creatinine (0.7-1.2) mg/dL Glucose (65-100) mg/dL POC Glucose 141 H 153 H (70-105) Calcium (8.4-10.2) mg/dL
[2020-01-27] MEDS: HYDROXYCHLOROQUINE 200 MG TAB PO SCH (23:13)
[2020-01-28] MEDS: VANCOMYCIN 2,000 MG in SODIUM CHLORIDE 0.9% 500 ML 500 ML IV SCH (00:27)
[2020-01-28 02:15] LABS: C-Reactive Protein 15.6 mg/dL (0.00-1.30)
[2020-01-28] MEDS: HEPARIN 5,000 UNIT/1 ML VIAL SUB-Q SCH ×3 (05:46→23:10)
[2020-01-28] MEDS: CEFEPIME/NS 2 GM/100 ML 2 GM/100 ML BAG IV SCH ×2 (05:46→13:09)
[2020-01-28] MEDS: hydrALAZINE 25 MG TAB PO SCH ×3 (05:47→23:10)
[2020-01-28] MEDS: ACETAMINOPHEN 325 MG TAB PO PRN (05:47)
[2020-01-28] MEDS: INSULIN REGULAR, HUMAN 100 UNITS/1 ML SUB-Q SCH ×4 (07:30→23:09)
[2020-01-28] MEDS ORDERED: ZINC SULFATE 220 MG CAP PO SCH (10:00)
[2020-01-28] MEDS: INSULIN NPH/REGULAR 70/30 INJ SUB-Q SCH ×2 (10:18→17:21)
[2020-01-28] MEDS: HYDROXYCHLOROQUINE 200 MG TAB PO SCH ×2 (10:19→23:10)
[2020-01-28] MEDS: LISINOPRIL 20 MG TAB PO SCH (10:19)
[2020-01-28] MEDS: amLODIPine 10 MG TAB PO SCH (10:20)
[2020-01-28] MEDS: carvediloL 25 MG TAB PO SCH ×2 (10:20→23:09)
[2020-01-28] MEDS: FAMOTIDINE 20 MG TAB PO SCH (10:21)
[2020-01-28 11:26] LABS: Calcium 7.5 mg/dL (8.4-10.2)
[2020-01-28] MEDS ORDERED: VANCOMYCIN 2,000 MG in SODIUM CHLORIDE 0.9% 500 ML 500 ML IV SCH (12:00)
[2020-01-28] MEDS: MORPHINE 2 MG/1 ML INJ IV PRN (12:35)
--- NOTE | 2020-01-28 14:16 | Progress Note ---
Assessment and Plan Severe Sepsis Left upper lobe pneumonia Diabetes II Morbid obesity Febrile illness R/O COVID-19 infection Diabetic foot ulcer Hyponatremia Lactic acidosis - tentatively discharge home once FiO2 requirements </= 32% - continue contact and droplet precautions - continue to wean supplemental oxygen to keep O2 sats > 90% - prn CXR's - continue HFNC via vapotherm system - prn Bronchodilators (JURGEN) with pulm hygiene per RT - avoid nephrotoxins, renally dose all medications - prn analgesia per pain score - mobility protocols to prevent pressure ulcers - accuchecks with glycemic control per SSI for target blood glucose < 180 mg/dL - continued smoking abstinence strongly counseled at the bedside - home oxygen evaluation at discharge - GI & VTE prophylaxis - Flu & pneumovax per protocol - continue other care per attending / other consultants ... re-evaluate in am & prn Subjective Date of service: 01/28/20 Principal diagnosis: Severe Sepsis; LEV PNA; DM II; Morbid obesity; R/O COVID-19 infection Interval history: Patient is seen today for: Severe Sepsis; LEV pneumonia; Diabetes II; Morbid obesity; Febrile illness R/O COVID-19 infection; Diabetic foot ulcer; Hyponatremia; Lactic acidosis Seen and examined at bedside; 24hour events reviewed; nursing and respiratory care staff consulted; no adverse overnight events reported to me; rtesting peacefully in bed; denies hemoptysis; feels a little better; remains on HFNC @ 55% FiO2 Objective Vital Signs - 12hr 01/28/20 01/28/20 01/28/20 03:37 04:50 07:20 Temperature 101.1 F H 99.9 F H Pulse Rate 105 H Respiratory 28 H 20 Rate Blood Pressure 132/83 O2 Sat by Pulse 96 95 Oximetry 01/28/20 01/28/20 01/28/20 08:00 10:19 10:20 Temperature Pulse Rate 105 H 105 H Respiratory Rate Blood Pressure 132/83 132/83 O2 Sat by Pulse 96 Oximetry 01/28/20 01/28/20 12:31 13:08 Temperature 99.9 F H Pulse Rate 89 Respiratory 22 Rate Blood Pressure 106/57 106/57 O2 Sat by Pulse 98 Oximetry Constitutional: alert, other (young obese AAF, normocephalic with mildly increased resp effort at rest) Eyes: non-icteric ENT: oropharynx moist Neck: supple, no lymphadenopathy, no JVD Effort: mildly labored Ascultation: Bilateral: diminished breath sounds, rales (scant in bases) Percussion: Bilateral: not dull Cardiovascular: regular rate and rhythm Gastrointestinal: normoactive bowel sounds, soft, non-tender, non-distended Integumentary: normal Extremities: no cyanosis, no edema, pulses normal, no ischemia or petechiae Neurologic: normal mental status, non-focal exam, pupils equal and round, CN II- XII normal Psychiatric: mood appropriate, affect normal CBC and BMP: 01/29/20 07:29 01/29/20 07:29 ABG, PT/INR, D-dimer: ABG ABG pH 7.485 pH Units (7.350-7.450) H 01/24/20 12:50 ABG pCO2 30.2 mm Hg 01/24/20 12:50 ABG pO2 63.4 mm Hg (80.0-90.0) L 01/24/20 12:50 ABG O2 Saturation 98.0 % (95.0-99.0) 01/24/20 12:50 PT/INR, D-dimer PT 15.6 Sec. (12.2-14.9) H 01/17/20 18:28 INR 1.22 (0.87-1.13) H 01/17/20 18:28 D-Dimer 2675.43 ng/mlDDU (0-234) H 01/27/20 23:53 Abnormal lab findings: Abnormal Labs 01/17/20 01/17/20 01/17/20 18:28 18:28 18:28 WBC MCH 26 L RDW Lymph % (Auto) 9.3 L Lymph # 1.0 L Seg Neutrophils % 86.7 H Seg Neuts % (Manual) Lymphocytes % (Manual) Nucleated RBC % Seg Neutrophils # 9.6 H Seg Neutrophils # Man Lymphocytes # (Manual) PT 15.6 H INR 1.22 H D-Dimer ABG pH ABG pO2 ABG Hemoglobin Sodium 126 L Potassium Chloride 89.3 L Carbon Dioxide 19 L BUN Creatinine Glucose 397 H POC Glucose Hemoglobin A1c Lactic Acid Calcium Magnesium Ferritin Lactate Dehydrogenase C-Reactive Protein Total Protein 9.0 H Vancomycin Trough Random Vancomycin 01/17/20 01/17/20 01/17/20 18:28 22:58 22:58 WBC MCH RDW Lymph % (Auto) Lymph # Seg Neutrophils % Seg Neuts % (Manual) Lymphocytes % (Manual) Nucleated RBC % Seg Neutrophils # Seg Neutrophils # Man Lymphocytes # (Manual) PT INR D-Dimer ABG pH ABG pO2 ABG Hemoglobin Sodium Potassium Chloride Carbon Dioxide BUN Creatinine Glucose POC Glucose Hemoglobin A1c Lactic Acid 3.40 H* 2.30 H* Calcium Magnesium 1.50 L Ferritin Lactate Dehydrogenase C-Reactive Protein 16.60 H Total Protein Vancomycin Trough Random Vancomycin 01/18/20 01/18/20 01/18/20 00:46 06:34 08:30 WBC MCH 26 L RDW 12.7 L Lymph % (Auto) Lymph # Seg Neutrophils % 80.1 H Seg Neuts % (Manual) Lymphocytes % (Manual) Nucleated RBC % Seg Neutrophils # Seg Neutrophils # Man Lymphocytes # (Manual) PT INR D-Dimer ABG pH ABG pO2 ABG Hemoglobin Sodium Potassium Chloride Carbon Dioxide BUN Creatinine Glucose POC Glucose 338 H 266 H Hemoglobin A1c Lactic Acid Calcium Magnesium Ferritin Lactate Dehydrogenase C-Reactive Protein Total Protein Vancomycin Trough Random Vancomycin 01/18/20 01/18/20 01/18/20 08:30 08:35 12:30 WBC MCH RDW Lymph % (Auto) Lymph # Seg Neutrophils % Seg Neuts % (Manual) Lymphocytes % (Manual) Nucleated RBC % Seg Neutrophils # Seg Neutrophils # Man Lymphocytes # (Manual) PT INR D-Dimer ABG pH ABG pO2 ABG Hemoglobin Sodium 135 L D Potassium Chloride Carbon Dioxide BUN Creatinine Glucose 250 H POC Glucose 224 H 213 H Hemoglobin A1c Lactic Acid Calcium Magnesium Ferritin Lactate Dehydrogenase C-Reactive Protein Total Protein Vancomycin Trough Random Vancomycin 01/18/20 01/18/20 01/18/20 12:47 16:56 22:03 WBC MCH RDW Lymph % (Auto) Lymph # Seg Neutrophils % Seg Neuts % (Manual) Lymphocytes % (Manual) Nucleated RBC % Seg Neutrophils # Seg Neutrophils # Man Lymphocytes # (Manual) PT INR D-Dimer ABG pH ABG pO2 ABG Hemoglobin Sodium Potassium Chloride Carbon Dioxide BUN Creatinine Glucose POC Glucose 270 H 239 H Hemoglobin A1c 11.6 H Lactic Acid Calcium Magnesium Ferritin Lactate Dehydrogenase C-Reactive Protein Total Protein Vancomycin Trough Random Vancomycin 01/19/20 01/19/20 01/19/20 06:15 11:48 13:09 WBC MCH 26 L RDW Lymph % (Auto) Lymph # Seg Neutrophils % Seg Neuts % (Manual) Lymphocytes % (Manual) Nucleated RBC % Seg Neutrophils # Seg Neutrophils # Man Lymphocytes # (Manual) PT INR D-Dimer ABG pH ABG pO2 ABG Hemoglobin Sodium Potassium Chloride Carbon Dioxide BUN Creatinine Glucose POC Glucose 248 H 268 H Hemoglobin A1c Lactic Acid Calcium Magnesium Ferritin Lactate Dehydrogenase C-Reactive Protein Total Protein Vancomycin Trough Random Vancomycin 01/19/20 01/19/20 01/20/20 17:44 21:09 09:03 WBC MCH RDW Lymph % (Auto) Lymph # Seg Neutrophils % Seg Neuts % (Manual) Lymphocytes % (Manual) Nucleated RBC % Seg Neutrophils # Seg Neutrophils # Man Lymphocytes # (Manual) PT INR D-Dimer ABG pH ABG pO2 ABG Hemoglobin Sodium Potassium Chloride Carbon Dioxide BUN Creatinine Glucose POC Glucose 214 H 261 H 241 H Hemoglobin A1c Lactic Acid Calcium Magnesium Ferritin Lactate Dehydrogenase C-Reactive Protein Total Protein Vancomycin Trough Random Vancomycin 01/20/20 01/20/20 01/20/20 12:10 17:00 19:43 WBC MCH RDW Lymph % (Auto) Lymph # Seg Neutrophils % Seg Neuts % (Manual) Lymphocytes % (Manual) Nucleated RBC % Seg Neutrophils # Seg Neutrophils # Man Lymphocytes # (Manual) PT INR D-Dimer ABG pH ABG pO2 ABG Hemoglobin Sodium Potassium Chloride Carbon Dioxide BUN Creatinine Glucose POC Glucose 284 H 272 H Hemoglobin A1c Lactic Acid Calcium Magnesium Ferritin Lactate Dehydrogenase C-Reactive Protein Total Protein Vancomycin Trough 4.0 L Random Vancomycin 01/20/20 01/21/20 01/21/20 22:39 09:29 11:41 WBC MCH 26 L RDW Lymph % (Auto) Lymph # Seg Neutrophils % Seg Neuts % (Manual) Lymphocytes % (Manual) Nucleated RBC % Seg Neutrophils # Seg Neutrophils # Man Lymphocytes # (Manual) PT INR D-Dimer ABG pH ABG pO2 ABG Hemoglobin Sodium Potassium Chloride Carbon Dioxide BUN Creatinine Glucose POC Glucose 248 H 238 H Hemoglobin A1c Lactic Acid Calcium Magnesium Ferritin Lactate Dehydrogenase C-Reactive Protein Total Protein Vancomycin Trough Random Vancomycin 01/21/20 01/21/20 01/21/20 11:41 12:27 16:55 WBC MCH RDW Lymph % (Auto) Lymph # Seg Neutrophils % Seg Neuts % (Manual) Lymphocytes % (Manual) Nucleated RBC % Seg Neutrophils # Seg Neutrophils # Man Lymphocytes # (Manual) PT INR D-Dimer ABG pH ABG pO2 ABG Hemoglobin Sodium 132 L Potassium 3.5 L Chloride 97.0 L Carbon Dioxide 19 L BUN Creatinine Glucose 274 H POC Glucose 264 H 261 H Hemoglobin A1c Lactic Acid Calcium Magnesium Ferritin Lactate Dehydrogenase C-Reactive Protein Total Protein Vancomycin Trough Random Vancomycin 01/21/20 01/22/20 01/22/20 22:39 09:05 12:57 WBC MCH RDW Lymph % (Auto) Lymph # Seg Neutrophils % Seg Neuts % (Manual) Lymphocytes % (Manual) Nucleated RBC % Seg Neutrophils # Seg Neutrophils # Man Lymphocytes # (Manual) PT INR D-Dimer ABG pH ABG pO2 ABG Hemoglobin Sodium Potassium Chloride Carbon Dioxide BUN Creatinine Glucose POC Glucose 243 H 258 H 252 H Hemoglobin A1c Lactic Acid Calcium Magnesium Ferritin Lactate Dehydrogenase C-Reactive Protein Total Protein Vancomycin Trough Random Vancomycin 01/22/20 01/22/20 01/23/20 17:14 21:30 09:03 WBC MCH RDW Lymph % (Auto) Lymph # Seg Neutrophils % Seg Neuts % (Manual) Lymphocytes % (Manual) Nucleated RBC % Seg Neutrophils # Seg Neutrophils # Man Lymphocytes # (Manual) PT INR D-Dimer ABG pH ABG pO2 ABG Hemoglobin Sodium Potassium Chloride Carbon Dioxide BUN Creatinine Glucose POC Glucose 306 H 217 H 156 H Hemoglobin A1c Lactic Acid Calcium Magnesium Ferritin Lactate Dehydrogenase C-Reactive Protein Total Protein Vancomycin Trough Random Vancomycin 01/23/20 01/23/20 01/23/20 10:36 11:12 17:11 WBC MCH RDW Lymph % (Auto) Lymph # Seg Neutrophils % Seg Neuts % (Manual) Lymphocytes % (Manual) Nucleated RBC % Seg Neutrophils # Seg Neutrophils # Man Lymphocytes # (Manual) PT INR D-Dimer ABG pH ABG pO2 ABG Hemoglobin Sodium Potassium 3.0 L Chloride Carbon Dioxide 21 L BUN Creatinine Glucose 266 H POC Glucose 244 H 238 H Hemoglobin A1c Lactic Acid Calcium 8.3 L Magnesium Ferritin Lactate Dehydrogenase C-Reactive Protein Total Protein Vancomycin Trough Random Vancomycin 01/23/20 01/24/20 01/24/20 22:57 06:03 12:12 WBC MCH RDW Lymph % (Auto) Lymph # Seg Neutrophils % Seg Neuts % (Manual) Lymphocytes % (Manual) Nucleated RBC % Seg Neutrophils # Seg Neutrophils # Man Lymphocytes # (Manual) PT INR D-Dimer ABG pH ABG pO2 ABG Hemoglobin Sodium Potassium 3.2 L Chloride Carbon Dioxide 19 L BUN Creatinine Glucose 231 H POC Glucose 228 H 210 H Hemoglobin A1c Lactic Acid Calcium 8.2 L Magnesium Ferritin Lactate Dehydrogenase C-Reactive Protein Total Protein Vancomycin Trough Random Vancomycin 01/24/20 01/24/20 01/24/20 12:50 19:01 21:49 WBC MCH RDW Lymph % (Auto) Lymph # Seg Neutrophils % Seg Neuts % (Manual) Lymphocytes % (Manual) Nucleated RBC % Seg Neutrophils # Seg Neutrophils # Man Lymphocytes # (Manual) PT INR D-Dimer ABG pH 7.485 H ABG pO2 63.4 L ABG Hemoglobin 5.0 L Sodium Potassium Chloride Carbon Dioxide BUN Creatinine Glucose POC Glucose 183 H 193 H Hemoglobin A1c Lactic Acid Calcium Magnesium Ferritin Lactate Dehydrogenase C-Reactive Protein Total Protein Vancomycin Trough Random Vancomycin 01/25/20 01/25/20 01/25/20 09:13 16:58 22:23 WBC MCH RDW Lymph % (Auto) Lymph # Seg Neutrophils % Seg Neuts % (Manual) Lymphocytes % (Manual) Nucleated RBC % Seg Neutrophils # Seg Neutrophils # Man Lymphocytes # (Manual) PT INR D-Dimer ABG pH ABG pO2 ABG Hemoglobin Sodium Potassium Chloride Carbon Dioxide BUN Creatinine Glucose POC Glucose 196 H 231 H 159 H Hemoglobin A1c Lactic Acid Calcium Magnesium Ferritin Lactate Dehydrogenase C-Reactive Protein Total Protein Vancomycin Trough Random Vancomycin 01/26/20 01/26/20 01/26/20 05:40 05:40 05:40 WBC 16.4 H MCH 26 L RDW 12.9 L Lymph % (Auto) Lymph # Seg Neutrophils % Seg Neuts % (Manual) 90.0 H Lymphocytes % (Manual) 1.0 L Nucleated RBC % 1.0 H Seg Neutrophils # Seg Neutrophils # Man 14.8 H Lymphocytes # (Manual) 0.2 L PT INR D-Dimer 2624.11 H ABG pH ABG pO2 ABG Hemoglobin Sodium 135 L Potassium 2.7 L* Chloride Carbon Dioxide 21 L BUN Creatinine Glucose 132 H POC Glucose Hemoglobin A1c Lactic Acid Calcium 8.0 L Magnesium Ferritin Lactate Dehydrogenase C-Reactive Protein Total Protein Vancomycin Trough Random Vancomycin 01/26/20 01/26/20 01/26/20 05:40 05:40 08:58 WBC MCH RDW Lymph % (Auto) Lymph # Seg Neutrophils % Seg Neuts % (Manual) Lymphocytes % (Manual) Nucleated RBC % Seg Neutrophils # Seg Neutrophils # Man Lymphocytes # (Manual) PT INR D-Dimer ABG pH ABG pO2 ABG Hemoglobin Sodium Potassium Chloride Carbon Dioxide BUN Creatinine Glucose POC Glucose 131 H Hemoglobin A1c Lactic Acid Calcium Magnesium Ferritin 2758.0 H Lactate Dehydrogenase C-Reactive Protein 26.90 H Total Protein Vancomycin Trough Random Vancomycin 01/26/20 01/26/20 01/26/20 13:00 16:30 21:22 WBC MCH RDW Lymph % (Auto) Lymph # Seg Neutrophils % Seg Neuts % (Manual) Lymphocytes % (Manual) Nucleated RBC % Seg Neutrophils # Seg Neutrophils # Man Lymphocytes # (Manual) PT INR D-Dimer ABG pH ABG pO2 ABG Hemoglobin Sodium Potassium Chloride Carbon Dioxide BUN Creatinine Glucose POC Glucose 136 H 146 H 139 H Hemoglobin A1c Lactic Acid Calcium Magnesium Ferritin Lactate Dehydrogenase C-Reactive Protein Total Protein Vancomycin Trough Random Vancomycin 01/27/20 01/27/20 01/27/20 05:14 07:37 12:05 WBC MCH RDW Lymph % (Auto) Lymph # Seg Neutrophils % Seg Neuts % (Manual) Lymphocytes % (Manual) Nucleated RBC % Seg Neutrophils # Seg Neutrophils # Man Lymphocytes # (Manual) PT INR D-Dimer ABG pH ABG pO2 ABG Hemoglobin Sodium 135 L Potassium 3.4 L D Chloride Carbon Dioxide 17 L BUN 24 H Creatinine 1.4 H D Glucose 143 H POC Glucose 133 H 141 H Hemoglobin A1c Lactic Acid Calcium 7.6 L Magnesium Ferritin Lactate Dehydrogenase C-Reactive Protein Total Protein Vancomycin Trough Random Vancomycin 01/27/20 01/27/20 01/27/20 17:37 22:14 23:53 WBC MCH RDW Lymph % (Auto) Lymph # Seg Neutrophils % Seg Neuts % (Manual) Lymphocytes % (Manual) Nucleated RBC % Seg Neutrophils # Seg Neutrophils # Man Lymphocytes # (Manual) PT INR D-Dimer 2675.43 H ABG pH ABG pO2 ABG Hemoglobin Sodium Potassium Chloride Carbon Dioxide BUN Creatinine Glucose POC Glucose 153 H 124 H Hemoglobin A1c Lactic Acid Calcium Magnesium Ferritin Lactate Dehydrogenase C-Reactive Protein Total Protein Vancomycin Trough Random Vancomycin 01/27/20 01/27/20 01/28/20 23:53 23:53 08:36 WBC MCH RDW Lymph % (Auto) Lymph # Seg Neutrophils % Seg Neuts % (Manual) Lymphocytes % (Manual) Nucleated RBC % Seg Neutrophils # Seg Neutrophils # Man Lymphocytes # (Manual) PT INR D-Dimer ABG pH ABG pO2 ABG Hemoglobin Sodium Potassium Chloride Carbon Dioxide BUN Creatinine Glucose POC Glucose 165 H Hemoglobin A1c Lactic Acid Calcium Magnesium Ferritin 3523.0 H Lactate Dehydrogenase 1132 H C-Reactive Protein 15.60 H Total Protein Vancomycin Trough Random Vancomycin 01/28/20 01/28/20 01/28/20 10:00 10:00 12:42 WBC MCH RDW Lymph % (Auto) Lymph # Seg Neutrophils % Seg Neuts % (Manual) Lymphocytes % (Manual) Nucleated RBC % Seg Neutrophils # Seg Neutrophils # Man Lymphocytes # (Manual) PT INR D-Dimer ABG pH ABG pO2 ABG Hemoglobin Sodium 131 L Potassium 3.5 L Chloride Carbon Dioxide 16 L BUN 51 H Creatinine 3.5 H D Glucose 180 H POC Glucose 188 H Hemoglobin A1c Lactic Acid Calcium 7.5 L Magnesium Ferritin Lactate Dehydrogenase C-Reactive Protein Total Protein Vancomycin Trough Random Vancomycin 65.8 H Allied health notes reviewed: nursing
--- NOTE | 2020-01-28 17:25 | Progress Note ---
Assessment and Plan Assessment and plan: 29-year-old female with known history of diabetes mellitus presenting to the emergency room today complaining of pain on the right big toe. Patient had an injury to the right big toe about 2 to 3 weeks ago when an object fell on the toe. She has gone to an urgent care facility where she was given some antibiotics namely Bactrim to the right big toe wound. She has noticed that the wound has not improved and she has been having progressive pain. She denies any fever or chills, no nausea vomiting, no cough or shortness of breath, no chest pain. She denies any sick contacts and no recent travel. Work-up in the emergency room reveals hyperglycemia chest x-ray also reveals a right-sided pneumonia with accompanying sepsis. Patient started on empiric IV antibiotics. - Patient Problems (1) Pneumonia Current Visit: Yes Status: Acute Plan to address problem: Patient currently with a left lower lobe pneumonia. Treated with cefepime. Patient remains febrile. Actual source unknown foot versus lung disease. Versus acute viral illness. We will follow-up labs in a.m. Still febrile. (2) SIRS (systemic inflammatory response syndrome) Current Visit: Yes Status: Acute Plan to address problem: Continue supportive care and treatment for community-acquired pneumonia. Continues to be febrile. Most likely secondary to the acute viral illness. (3) Open wound of great toe Current Visit: Yes Status: Acute Plan to address problem: Patient diabetic foot wound. Being treated local wound care plus vancomycin. When patient more stable obtain MRI. (4) Hypertension Current Visit: Yes Status: Acute Plan to address problem: Fair control with Coreg amlodipine. (5) Uncontrolled diabetes mellitus Current Visit: Yes Status: Acute Plan to address problem: Optimal control of blood sugar. Continue present management. (6) Hypokalemia Current Visit: Yes Status: Acute Plan to address problem: Hypokalemia we will treat IV today. Also given additional p.o. Recheck a.m. (7) COVID-19 virus detected Current Visit: Yes Status: Acute Plan to address problem: Continue treatment with Plaquenil. Continuos pulse oximetry and exercise oximetry (2 min walking in the room, if ok ok to d/c) f/u COVID test - pending Continue COVID isolation precautions per [facility] protocol Continue cefepime total 3 days Continue azithromycin total 5 days ok to change to po Obtain serial Ferritin, LDH, D-Dimer, CRP every 48h Home quarantine for 14 days from initial symptoms (own bedroom, toilet, utensils), educate that viral shedding may last 21 days (8) poor p.o. intake: Encourage p.o. intake. We will also change insulin to sliding scale at this point to prevent hypoglycemia. 9) acute on chronic respiratory failure question underlining morbid obesity hypoventilation syndrome Continues on high flow oxygen. 10) acute kidney injury secondary to vasomotor nephropathy: Nephrology consult. Start gentle hydration. History Interval history: Patient seen and examined resting appears lethargic per nursing staff poor appetite. Lower extremity edema bilaterally more on the right than left. Denies any pain. Mildly short of breath Hospitalist Physical - Physical exam Narrative exam: VITAL SIGNS: Reviewed. GENERAL: The patient appears normally developed, lethargic, morbidly obese, Vital signs as documented. HEAD: No signs of head trauma. EYES: Pupils are equal. Extraocular motions intact. EARS: Hearing grossly intact. MOUTH: Oropharynx is normal. NECK: No adenopathy, no JVD. CHEST: Chest with diminished breath sounds bilaterally. No wheezes, rales, or rhonchi. CARDIAC: Regular rate and rhythm. S1 and S2, without murmurs, gallops, or rubs. VASCULAR: + Edema. Peripheral pulses normal and equal in all extremities. ABDOMEN: Soft, non tender and non distended. No rebound or guarding, and no masses palpated. Bowel Sounds normal. MUSCULOSKELETAL: Right hallux wound, left foot callus, Good range of motion of all major joints. Extremities without clubbing, cyanosis +edema. NEUROLOGIC EXAM: Alert and oriented x 3 No focal sensory or strength deficits. Speech normal. Follows commands. PSYCHIATRIC: Mood normal. SKIN: Right hallux wound, left foot callus, detail exam as documented in skin assessment - Constitutional Vitals: Temp Pulse Resp BP Pulse Ox 99.9 F H 89 22 106/57 95 01/28/20 12:31 01/28/20 12:31 01/28/20 12:31 01/28/20 13:08 01/28/20 14:00 General appearance: Present: no acute distress Results - Labs CBC & Chem 7: 01/26/20 05:40 01/28/20 10:00 Labs: Laboratory Last Values WBC 16.4 K/mm3 (4.5-11.0) H 01/26/20 05:40 RBC 4.15 M/mm3 (3.65-5.03) 01/26/20 05:40 Hgb 10.6 gm/dl (10.1-14.3) 01/26/20 05:40 Hct 32.8 % (30.3-42.9) 01/26/20 05:40 MCV 79 fl (79-97) 01/26/20 05:40 MCH 26 pg (28-32) L 01/26/20 05:40 MCHC 32 % (30-34) 01/26/20 05:40 RDW 12.9 % (13.2-15.2) L 01/26/20 05:40 Plt Count 261 K/mm3 (140-440) 01/26/20 05:40 Lymph % (Auto) 16.6 % (13.4-35.0) 01/18/20 08:30 [place] % (Auto) 2.8 % (0.0-7.3) 01/18/20 08:30 Eos % (Auto) 0.1 % (0.0-4.3) 01/18/20 08:30 Baso % (Auto) 0.4 % (0.0-1.8) 01/18/20 08:30 Lymph # 1.2 K/mm3 (1.2-5.4) 01/18/20 08:30 [place] # 0.2 K/mm3 (0.0-0.8) 01/18/20 08:30 Eos # 0.0 K/mm3 (0.0-0.4) 01/18/20 08:30 Baso # 0.0 K/mm3 (0.0-0.1) 01/18/20 08:30 Add Manual Diff Complete 01/26/20 05:40 Total Counted 100 01/26/20 05:40 Seg Neutrophils % [employer] Machine [employer]ic 01/26/20 05:40 Seg Neuts % (Manual) 90.0 % (40.0-70.0) H 01/26/20 05:40 Band Neutrophils % 5.0 % 01/26/20 05:40 Lymphocytes % (Manual) 1.0 % (13.4-35.0) L 01/26/20 05:40 Reactive Lymphs % (Man) 0 % 01/26/20 05:40 Monocytes % (Manual) 2.0 % (0.0-7.3) 01/26/20 05:40 Eosinophils % (Manual) 2.0 % (0.0-4.3) 01/26/20 05:40 Basophils % (Manual) 0 % (0.0-1.8) 01/26/20 05:40 Metamyelocytes % 0 % 01/26/20 05:40 Myelocytes % 0 % 01/26/20 05:40 Promyelocytes % 0 % 01/26/20 05:40 Blast Cells % 0 % 01/26/20 05:40 Nucleated RBC % 1.0 % (0.0-0.9) H 01/26/20 05:40 Seg Neutrophils # 5.9 K/mm3 (1.8-7.7) 01/18/20 08:30 Seg Neutrophils # Man 14.8 K/mm3 (1.8-7.7) H 01/26/20 05:40 Band Neutrophils # 0.8 K/mm3 01/26/20 05:40 Lymphocytes # (Manual) 0.2 K/mm3 (1.2-5.4) L 01/26/20 05:40 Abs React Lymphs (Man) 0.0 K/mm3 01/26/20 05:40 Monocytes # (Manual) 0.3 K/mm3 (0.0-0.8) 01/26/20 05:40 Eosinophils # (Manual) 0.3 K/mm3 (0.0-0.4) 01/26/20 05:40 Basophils # (Manual) 0.0 K/mm3 (0.0-0.1) 01/26/20 05:40 Metamyelocytes # 0.0 K/mm3 01/26/20 05:40 Myelocytes # 0.0 K/mm3 01/26/20 05:40 Promyelocytes # 0.0 K/mm3 01/26/20 05:40 Blast Cells # 0.0 K/mm3 01/26/20 05:40 WBC Morphology Not Reportable 01/26/20 05:40 Hypersegmented Neuts Not Reportable 01/26/20 05:40 Hyposegmented Neuts Not Reportable 01/26/20 05:40 Hypogranular Neuts Not Reportable 01/26/20 05:40 Smudge Cells Not Reportable 01/26/20 05:40 Toxic Granulation Not Reportable 01/26/20 05:40 Toxic Vacuolation Not Reportable 01/26/20 05:40 Dohle Bodies Not Reportable 01/26/20 05:40 Pelger-Huet Anomaly Not Reportable 01/26/20 05:40 Barbie Rods Not Reportable 01/26/20 05:40 Platelet Estimate Consistent w auto 01/26/20 05:40 Clumped Platelets Not Reportable 01/26/20 05:40 Plt Clumps, EDTA Not Reportable 01/26/20 05:40 Large Platelets Not Reportable 01/26/20 05:40 Giant Platelets Not Reportable 01/26/20 05:40 Platelet Satelliting Not Reportable 01/26/20 05:40 Plt Morphology Comment Not Reportable 01/26/20 05:40 RBC Morphology Normal 01/26/20 05:40 Dimorphic RBCs Not Reportable 01/26/20 05:40 Polychromasia Not Reportable 01/26/20 05:40 Hypochromasia Not Reportable 01/26/20 05:40 Poikilocytosis Not Reportable 01/26/20 05:40 Anisocytosis Not Reportable 01/26/20 05:40 Microcytosis Not Reportable 01/26/20 05:40 Macrocytosis Not Reportable 01/26/20 05:40 Spherocytes Not Reportable 01/26/20 05:40 Pappenheimer Bodies Not Reportable 01/26/20 05:40 Sickle Cells Not Reportable 01/26/20 05:40 Target Cells Not Reportable 01/26/20 05:40 Tear Drop Cells Not Reportable 01/26/20 05:40 Ovalocytes Not Reportable 01/26/20 05:40 Helmet Cells Not Reportable 01/26/20 05:40 [place] Bodies Not Reportable 01/26/20 05:40 Reading Rings Not Reportable 01/26/20 05:40 Pauline Cells Not Reportable 01/26/20 05:40 Bite Cells Not Reportable 01/26/20 05:40 Crenated Cell Not Reportable 01/26/20 05:40 Elliptocytes Not Reportable 01/26/20 05:40 Acanthocytes (Spur) Not Reportable 01/26/20 05:40 Rouleaux Not Reportable 01/26/20 05:40 Hemoglobin C Crystals Not Reportable 01/26/20 05:40 Schistocytes Not Reportable 01/26/20 05:40 Malaria parasites Not Reportable 01/26/20 05:40 ESR 70 mm/Hr (0-20) 01/17/20 22:58 Ras Bodies Not Reportable 01/26/20 05:40 Hem Pathologist Commnt No 01/26/20 05:40 PT 15.6 Sec. (12.2-14.9) H 01/17/20 18:28 INR 1.22 (0.87-1.13) H 01/17/20 18:28 D-Dimer 2675.43 ng/mlDDU (0-234) H 01/27/20 23:53 ABG pH 7.485 pH Units (7.350-7.450) H 01/24/20 12:50 ABG pCO2 30.2 mm Hg 01/24/20 12:50 ABG pO2 63.4 mm Hg (80.0-90.0) L 01/24/20 12:50 ABG HCO3 22.2 mmol/L (20.0-26.0) 01/24/20 12:50 ABG O2 Saturation 98.0 % (95.0-99.0) 01/24/20 12:50 ABG O2 Content 6.9 (0.0-44) 01/24/20 12:50 ABG Base Excess -1.2 mmol/L (-2.0-3.0) 01/24/20 12:50 ABG Hemoglobin 5.0 gm/dl (12.0-16.0) L 01/24/20 12:50 ABG Carboxyhemoglobin 1.2 % (0.0-5.0) 01/24/20 12:50 ABG Methemoglobin 0.6 % (0.0-1.5) 01/24/20 12:50 VBG pH 7.409 (7.320-7.420) 01/17/20 18:28 Oxyhemoglobin 96.2 % (95.0-99.0) 01/24/20 12:50 FiO2 80 % 01/24/20 12:50 Sodium 131 mmol/L (137-145) L 01/28/20 10:00 Potassium 3.5 mmol/L (3.6-5.0) L 01/28/20 10:00 Chloride 99.9 mmol/L (98-107) 01/28/20 10:00 Carbon Dioxide 16 mmol/L (22-30) L 01/28/20 10:00 Anion Gap 19 mmol/L 01/28/20 10:00 BUN 51 mg/dL (7-17) H 01/28/20 10:00 Creatinine 3.5 mg/dL (0.7-1.2) H D 01/28/20 10:00 Estimated GFR 19 ml/min 01/28/20 10:00 BUN/Creatinine Ratio 15 % 01/28/20 10:00 Glucose 180 mg/dL (65-100) H 01/28/20 10:00 POC Glucose 161 (70-105) H 01/28/20 17:27 Hemoglobin A1c 11.6 % (4-6) H 01/18/20 12:47 Lactic Acid 1.30 mmol/L (0.7-2.0) 01/18/20 08:30 Calcium 7.5 mg/dL (8.4-10.2) L 01/28/20 10:00 Magnesium 1.50 mg/dL (1.7-2.3) L 01/17/20 22:58 Ferritin 3523.0 ng/mL (13.0-400.0) H 01/27/20 23:53 Total Bilirubin 0.40 mg/dL (0.1-1.2) 01/17/20 18:28 AST 27 units/L (5-40) 01/17/20 18:28 ALT 26 units/L (7-56) 01/17/20 18:28 Alkaline Phosphatase 57 units/L (35-129) 01/17/20 18:28 Lactate Dehydrogenase 1132 units/L (91-180) H 01/27/20 23:53 Total Creatine Kinase 122 units/L (30-135) 01/17/20 22:58 C-Reactive Protein 15.60 mg/dL (0.00-1.30) H 01/27/20 23:53 Total Protein 9.0 g/dL (6.3-8.2) H 01/17/20 18:28 Albumin 4.1 g/dL (3.9-5) 01/17/20 18:28 Albumin/Globulin Ratio 0.8 % 01/17/20 18:28 Procalcitonin 0.27 ng/mL (<0.15) 01/23/20 10:36 Urine Color Yellow (Yellow) 01/18/20 00:32 Urine Turbidity Slightly-cloudy (Clear) 01/18/20 00:32 Urine pH 5.0 (5.0-7.0) 01/18/20 00:32 Ur Specific [place] 1.011 (1.003-1.030) 01/18/20 00:32 Urine Protein 100 mg/dl mg/dL (Negative) 01/18/20 00:32 Urine Glucose (UA) >=500 mg/dL (Negative) 01/18/20 00:32 Urine Ketones Tr mg/dL (Negative) 01/18/20 00:32 Urine Blood Neg (Negative) 01/18/20 00:32 Urine Nitrite Neg (Negative) 01/18/20 00:32 Urine Bilirubin Neg (Negative) 01/18/20 00:32 Urine Urobilinogen < 2.0 mg/dL (<2.0) 01/18/20 00:32 Ur Leukocyte Esterase Neg (Negative) 01/18/20 00:32 Urine WBC (Auto) 2.0 /HPF (0.0-6.0) 01/18/20 00:32 Urine RBC (Auto) 4.0 /HPF (0.0-6.0) 01/18/20 00:32 U Epithel Cells (Auto) 2.0 /HPF (0-13.0) 01/18/20 00:32 Hyaline Casts 1 /LPF 01/18/20 00:32 Urine Mucus Few /HPF 01/18/20 00:32 Urine Yeast (Budding) Few /HPF 01/18/20 00:32 Vancomycin Trough 5.7 ug/mL (5.0-20.0) 01/25/20 13:06 Random Vancomycin 65.8 ug/mL (0-40.0) H 01/28/20 10:00 Influenza A (Rapid) Negative (Negative) 01/19/20 01:10 Influenza B (Rapid) Negative (Negative) 01/19/20 01:10 AFB Identification 01/20/20 04:00 Miscellaneous Test See scanned result 01/18/20 Unknown [place]/IV: Voiding Method Toilet IV Catheter Type [right ac] Peripheral IV IV Catheter Type [Right Hand] Peripheral IV IV Catheter Type [Right Upper INT / Saline Lock arm] IV Catheter Type [Left Hand] INT / Saline Lock Active Medications - Current Medications Current Medications: Generic Name Dose Route Start Last Admin Trade Name Freq PRN Reason Stop Dose Admin Acetaminophen 650 mg 01/17/20 23:06 01/28/20 05:47 Tylenol PO 650 mg Q4H PRN Administration Pain MILD(1-3)/Fever >100.5/COLLINS Amlodipine Besylate 10 mg 01/19/20 12:00 01/28/20 10:20 Amlodipine PO 10 mg QDAY COBY Administration Carvedilol 25 mg 01/23/20 22:00 01/28/20 10:20 Coreg PO 25 mg Q12HR COBY Administration Dextrose 0 ml 01/17/20 23:06 D50w (25gm) Syringe IV Q30MIN PRN Hypoglycemia Protocol Famotidine 20 mg 01/24/20 10:00 01/28/20 10:21 Pepcid PO 20 mg QDAY COBY Administration Heparin Sodium (Porcine) 5,000 unit 01/18/20 06:00 01/28/20 14:23 Heparin SUB-Q 5,000 unit Q8HR COBY Administration Hydralazine HCl 10 mg 01/18/20 22:14 01/22/20 18:43 Apresoline IV 10 mg Q6H PRN Administration Hypertension Hydralazine HCl 50 mg 01/19/20 14:00 01/28/20 13:08 Apresoline PO Not Given Q8HR COBY Hydroxychloroquine Sulfate 200 mg 01/28/20 23:00 Plaquenil PO 02/01/20 22:59 BID COBY Sodium Chloride 1,000 mls @ 125 mls/hr 01/17/20 23:15 01/24/20 14:19 Nacl 0.9% 1000 Ml IV 125 mls/hr DIRECT COBY Administration Cefepime HCl 2 gm in 100 mls @ 200 mls/hr 01/29/20 10:00 Cefepime/Ns 2 Gm/100 Ml IV Q24HR COBY Protocol Sodium Chloride 1,000 mls @ 75 mls/hr 01/28/20 17:30 Nacl 0.9% 1000 Ml IV DIRECT COBY Insulin Human Isoph/Insulin Regular 12 unit 01/25/20 09:00 01/28/20 17:21 Humulin 70/30 SUB-Q Not Given BIDDIAB COBY Insulin Human Regular 0 units 01/19/20 11:30 01/28/20 16:30 Humulin R SUB-Q 2 units ACHS COBY Administration Protocol Lisinopril 20 mg 01/24/20 12:00 01/28/20 10:19 Zestril PO 20 mg QDAY COBY Administration Magnesium Hydroxide 30 ml 01/17/20 23:06 Milk Of Magnesia PO Q4H PRN Constipation Morphine Sulfate 2 mg 01/17/20 23:06 01/28/20 12:35 Morphine IV 2 mg Q4H PRN Administration Pain, Moderate (4-6) Ondansetron HCl 4 mg 01/17/20 23:06 Zofran IV Q8H PRN Nausea And Vomiting Sodium Chloride 10 ml 01/18/20 10:00 01/28/20 10:20 Sodium Chloride Flush Syringe 10 Ml IV 10 ml BID COBY Administration Sodium Chloride 10 ml 01/17/20 23:06 Sodium Chloride Flush Syringe 10 Ml IV PRN PRN LINE FLUSH Zinc Sulfate 220 mg 01/28/20 10:00 01/28/20 10:18 Zinc Sulfate PO 220 mg QDAY COBY Administration Nutrition/Malnutrition Assess - Dietary Evaluation Nutrition/Malnutrition Findings: Nutrition Notes Start: 01/18/20 13:13 Freq: Status: Active Protocol: Document 01/24/20 12:43 LM (Rec: 01/24/20 12:48 LM [id number]) Nutrition Notes Initial or Follow up Reassessment Current Diagnosis Diabetes,Sepsis Other Pertinent Diagnosis suspected COVID-19, LEV pneu, (R) great toe wound Labs/Tests K 3.2 BG 231 Pertinent Medications Humulin Height 6 ft Weight 141 kg [place] Body Weight (kg) 72.72 BMI 42.1 Weight Status Morbidly Obese Subjective/Other Information Pt stated that she is eating as much as she can. pt stated she ate 2 bowls of cereal this AM. Pt does not like ONS, will d/c. Encouraged pt to eat so she can get better. Burn Absent Trauma Absent Minimum of two criteria No physical signs of malnutrition #2 Nutrition Diagnosis Inadequate protein-energy intake Diagnosis Progress(for reassessment Continues documentation) #1 Nutrition Diagnosis Increased nutrient needs ( specify in comment below) Diagnosis Progress(for reassessment Continues documentation) Is patient on ventilator? No Is Patient Ambulatory and/or Out of Bed Yes REE-(Lester-St. Jeor-ambulatory/OOB) [ 2914.600 NUTR.MSJOOB] Kcal/Kg value to use for calculation 15 Approximate Energy Requirements Using 2115 kcal/Kg Calculation Used for Recommendations Kcal/kg Additional Notes Pro needs 1.25-1.5g/kg adjBW: 134-161g/day Fluid needs 1ml/kcal Nutrition Intervention Change Diet Order: Continue current diet order Add Supplement/Snack (indicate name/kcal D/C /protein ) Goal #1 PO intake of meals plus ONS to meet at least 75% of nutrient needs Goal #2 Wound healing Anticipated Discharge Needs: consistent CHO Follow-Up By: 01/29/20 Additional Comments F/U for PO intakes
--- NOTE | 2020-01-28 18:37 | Progress Note ---
Assessment and Plan Cultures: Blood culture 01/17/2020 no growth to date Urine culture 01/17/2020 no growth to date Sputum normal resp dulce A/P: 29-year-old female past medical history diabetes admitted with acute sepsis secondary to right foot wound versus pneumonia. #Acute sepsis: still fever. Secondary to her foot wound versus pneumonia. #Severe COVID-19 pneumonia: Coronavirus testing has returned positive. Very high inflammatory markers - ferritin 2758. Risk for cytokine storm secondary to COVID and high risk for ARDS #Right foot wound: Will need MRI when more stable to rule out osteomyelitis of the toe. Continue empiric vancomycin and cefepime for now. #Diabetes: tight glycemic control for best outcomes. #CIPRIANO: renally adjust abx #Morbid obesity Recs: Continuos pulse oximetry ContinueCOVID isolationprecautions per [facility] protocol Continue hydroxychloroquine 400 mg PO BID for 1 day then 200 mg PO BID for 4 days (total 5 days) with zinc 220 mg PO qday Obtain serial Ferritin, LDH, D-Dimer, CRP every 48h Daily EKG - QT monitoring - stop plaqenil if QT interval >500 Obtain IL-6 (sent out) to evaluate cytokine release syndrome due to COVID and consider IV tocilizumab (Actemra) (off-label use) Continue cefepime 2 g every 8 hours Stop vancomycin - sputum grew normal resp dulce Obtain MRI of the right foot -not urgent given present situation, can defer for now while treating for COVID-19. Thank you for the consult, we will continue to follow. Janett Duffy MD Infectious Diseases Food Preparation Kitchen Aide [facility] ([facility]) M [phone] O [phone] Subjective Date of service: 01/28/20 Principal diagnosis: Severe Sepsis; LEV PNA; DM II; Morbid obesity; R/O COVID-19 infection Interval history: Remains stable on FIO2 10L 40% still low grade fever Objective - Exam Narrative Exam: Constitutional: Alert, cooperative on HFO2 Oral: limited due to lack opf PPE Cardiovascular: Respiratory: GI: Soft, obese Musculoskeletal: Right hallux wound, left foot callus Skin: Hem/Lymphatic: Psych: Mood ok. Affect normal Neurological: Awake, alert, oriented. No gross abnormality - Constitutional Vitals: Vital Signs Temp Pulse Resp BP Pulse Ox 99.9 F H 89 22 106/57 95 01/28/20 12:31 01/28/20 12:31 01/28/20 12:31 01/28/20 13:08 01/28/20 14:00 Temperature -Last 24 Hours Temperature 99.9 F Temperature 99.9 F Temperature 101.1 F Temperature 100.5 F - Labs CBC & Chem 7: 01/26/20 05:40 01/28/20 10:00 Labs: Abnormal lab results 01/27/20 01/27/20 01/27/20 Range/Units 22:14 23:53 23:53 D-Dimer 2675.43 H (0-234) ng/mlDDU Sodium (137-145) mmol/L Potassium (3.6-5.0) mmol/L Carbon Dioxide (22-30) mmol/L BUN (7-17) mg/dL Creatinine (0.7-1.2) mg/dL Glucose (65-100) mg/dL POC Glucose 124 H (70-105) Calcium (8.4-10.2) mg/dL Ferritin (13.0-400.0) ng/mL Lactate Dehydrogenase 1132 H (91-180) units/L C-Reactive Protein 15.60 H (0.00-1.30) mg/dL Random Vancomycin (0-40.0) ug/mL 01/27/20 01/28/20 01/28/20 Range/Units 23:53 08:36 10:00 D-Dimer (0-234) ng/mlDDU Sodium 131 L (137-145) mmol/L Potassium 3.5 L (3.6-5.0) mmol/L Carbon Dioxide 16 L (22-30) mmol/L BUN 51 H (7-17) mg/dL Creatinine 3.5 H D (0.7-1.2) mg/dL Glucose 180 H (65-100) mg/dL POC Glucose 165 H (70-105) Calcium 7.5 L (8.4-10.2) mg/dL Ferritin 3523.0 H (13.0-400.0) ng/mL Lactate Dehydrogenase (91-180) units/L C-Reactive Protein (0.00-1.30) mg/dL Random Vancomycin (0-40.0) ug/mL 03/30/20 03/30/20 03/30/20 Range/Units 10:00 12:42 17:27 D-Dimer (0-234) ng/mlDDU Sodium (137-145) mmol/L Potassium (3.6-5.0) mmol/L Carbon Dioxide (22-30) mmol/L BUN (7-17) mg/dL Creatinine (0.7-1.2) mg/dL Glucose (65-100) mg/dL POC Glucose 188 H 161 H (70-105) Calcium (8.4-10.2) mg/dL Ferritin (13.0-400.0) ng/mL Lactate Dehydrogenase (91-180) units/L C-Reactive Protein (0.00-1.30) mg/dL Random Vancomycin 65.8 H (0-40.0) ug/mL
[2020-01-28] MEDS: SODIUM CHLORIDE 0.9% 1000 ML 1,000 ML IV SCH (23:09)
[2020-01-29] MEDS: hydrALAZINE 25 MG TAB PO SCH ×2 (06:31→14:00)
[2020-01-29] MEDS: ACETAMINOPHEN 325 MG TAB PO PRN ×2 (06:34→22:43)
[2020-01-29] MEDS: SODIUM CHLORIDE 0.9% 1000 ML 1,000 ML IV SCH (06:34)
[2020-01-29] MEDS: HEPARIN 5,000 UNIT/1 ML VIAL SUB-Q SCH ×3 (06:34→22:05)
[2020-01-29 07:48] LABS: Hematocrit 29.5 % (30.3-42.9); Hemoglobin 9.6 gm/dl (10.1-14.3); Mean Corpuscular HGB Conc 32 % (30-34); Mean Corpuscular Volume 79 fl (79-97); Platelet Count 187 K/mm3 (140-440); Red Blood Count 3.72 M/mm3 (3.65-5.03); Red Cell Distribution Width 13.7 % (13.2-15.2)
[2020-01-29 08:14] LABS: Calcium 7.6 mg/dL (8.4-10.2)
[2020-01-29] MEDS: INSULIN REGULAR, HUMAN 100 UNITS/1 ML SUB-Q SCH ×4 (08:32→22:05)
[2020-01-29] MEDS: INSULIN NPH/REGULAR 70/30 INJ SUB-Q SCH ×2 (08:56→17:00)
[2020-01-29] MEDS: amLODIPine 10 MG TAB PO SCH (11:17)
[2020-01-29] MEDS: CEFEPIME/NS 2 GM/100 ML 2 GM/100 ML BAG IV SCH (11:18)
[2020-01-29] MEDS: ZINC SULFATE 220 MG CAP PO SCH (11:19)
[2020-01-29] MEDS: FAMOTIDINE 20 MG TAB PO SCH (11:20)
[2020-01-29] MEDS: carvediloL 25 MG TAB PO SCH ×2 (11:20→22:06)
[2020-01-29] MEDS: HYDROXYCHLOROQUINE 200 MG TAB PO SCH ×2 (11:21→22:05)
[2020-01-29 13:03] LABS: C-Reactive Protein 13.3 mg/dL (0.00-1.30)
--- NOTE | 2020-01-29 14:32 | Progress Note ---
Assessment and Plan Severe Sepsis Left upper lobe pneumonia Diabetes II Morbid obesity Febrile illness (COVID-19 infection) Diabetic foot ulcer Hyponatremia Lactic acidosis - continue contact, droplet and airborne precautions - continue surgical evaluation re: ? abscess as source of fevers - tentatively discharge home once FiO2 requirements </= 32% - continue to wean supplemental oxygen to keep O2 sats > 90% - prn CXR's - continue HFNC via vapotherm system - prn Bronchodilators (JURGEN) with pulm hygiene per RT - avoid nephrotoxins, renally dose all medications - prn analgesia per pain score - mobility protocols to prevent pressure ulcers - accuchecks with glycemic control per SSI for target blood glucose < 180 mg/dL - continued smoking abstinence strongly counseled at the bedside - home oxygen evaluation at discharge - GI & VTE prophylaxis - Flu & pneumovax per protocol - continue other care per attending / other consultants ... re-evaluate in am & prn Subjective Date of service: 01/29/20 Principal diagnosis: Severe Sepsis; LEV PNA; DM II; Morbid obesity; R/O COVID-19 infection Interval history: Patient is seen today for: Severe Sepsis; LEV pneumonia; Diabetes II; Morbid obesity; Febrile illness R/O COVID-19 infection; Diabetic foot ulcer; Hyponatre carmelita; Lactic acidosis Seen and examined at bedside; 24hour events reviewed; nursing and respiratory care staff consulted; no adverse overnight events reported to me; rtesting peacefully in bed; still with mostly low grade fevers; COVID is positive; No N/V; denies chest pains; no hemoptysis Objective Vital Signs - 12hr 01/29/20 01/29/20 01/29/20 05:53 10:14 10:22 Temperature 97.7 F Pulse Rate 81 Respiratory 24 Rate Blood Pressure 112/63 O2 Sat by Pulse 99 98 98 Oximetry 01/29/20 01/29/20 11:17 11:20 Temperature Pulse Rate 69 69 Respiratory Rate Blood Pressure 111/64 111/64 O2 Sat by Pulse Oximetry Constitutional: alert, other (young obese AAF, normocephalic with mildly increased resp effort at rest) Eyes: non-icteric ENT: oropharynx moist Neck: supple, no lymphadenopathy, no JVD Effort: mildly labored Ascultation: Bilateral: diminished breath sounds, rales (scant in bases) Percussion: Bilateral: not dull Cardiovascular: regular rate and rhythm Gastrointestinal: normoactive bowel sounds, soft, non-tender, non-distended Integumentary: normal Extremities: no cyanosis, no edema, pulses normal, no ischemia or petechiae Neurologic: normal mental status, non-focal exam, pupils equal and round, CN II- XII normal Psychiatric: mood appropriate, affect normal CBC and BMP: 01/29/20 07:29 01/30/20 05:19 ABG, PT/INR, D-dimer: ABG ABG pH 7.485 pH Units (7.350-7.450) H 01/24/20 12:50 ABG pCO2 30.2 mm Hg 01/24/20 12:50 ABG pO2 63.4 mm Hg (80.0-90.0) L 01/24/20 12:50 ABG O2 Saturation 98.0 % (95.0-99.0) 01/24/20 12:50 PT/INR, D-dimer PT 15.6 Sec. (12.2-14.9) H 01/17/20 18:28 INR 1.22 (0.87-1.13) H 01/17/20 18:28 D-Dimer 1499 ng/mlDDU (0-234) H 01/29/20 11:54 Abnormal lab findings: Abnormal Labs 01/17/20 01/17/20 01/17/20 18:28 18:28 18:28 WBC Hgb Hct MCH 26 L RDW Lymph % (Auto) 9.3 L Lymph # 1.0 L Seg Neutrophils % 86.7 H Seg Neuts % (Manual) Lymphocytes % (Manual) Nucleated RBC % Seg Neutrophils # 9.6 H Seg Neutrophils # Man Lymphocytes # (Manual) PT 15.6 H INR 1.22 H D-Dimer ABG pH ABG pO2 ABG Hemoglobin Sodium 126 L Potassium Chloride 89.3 L Carbon Dioxide 19 L BUN Creatinine Glucose 397 H POC Glucose Hemoglobin A1c Lactic Acid Calcium Magnesium Ferritin Lactate Dehydrogenase C-Reactive Protein Total Protein 9.0 H Vancomycin Trough Random Vancomycin 01/17/20 01/17/20 01/17/20 18:28 22:58 22:58 WBC Hgb Hct MCH RDW Lymph % (Auto) Lymph # Seg Neutrophils % Seg Neuts % (Manual) Lymphocytes % (Manual) Nucleated RBC % Seg Neutrophils # Seg Neutrophils # Man Lymphocytes # (Manual) PT INR D-Dimer ABG pH ABG pO2 ABG Hemoglobin Sodium Potassium Chloride Carbon Dioxide BUN Creatinine Glucose POC Glucose Hemoglobin A1c Lactic Acid 3.40 H* 2.30 H* Calcium Magnesium 1.50 L Ferritin Lactate Dehydrogenase C-Reactive Protein 16.60 H Total Protein Vancomycin Trough Random Vancomycin 01/18/20 01/18/20 01/18/20 00:46 06:34 08:30 WBC Hgb Hct MCH 26 L RDW 12.7 L Lymph % (Auto) Lymph # Seg Neutrophils % 80.1 H Seg Neuts % (Manual) Lymphocytes % (Manual) Nucleated RBC % Seg Neutrophils # Seg Neutrophils # Man Lymphocytes # (Manual) PT INR D-Dimer ABG pH ABG pO2 ABG Hemoglobin Sodium Potassium Chloride Carbon Dioxide BUN Creatinine Glucose POC Glucose 338 H 266 H Hemoglobin A1c Lactic Acid Calcium Magnesium Ferritin Lactate Dehydrogenase C-Reactive Protein Total Protein Vancomycin Trough Random Vancomycin 01/18/20 01/18/20 01/18/20 08:30 08:35 12:30 WBC Hgb Hct MCH RDW Lymph % (Auto) Lymph # Seg Neutrophils % Seg Neuts % (Manual) Lymphocytes % (Manual) Nucleated RBC % Seg Neutrophils # Seg Neutrophils # Man Lymphocytes # (Manual) PT INR D-Dimer ABG pH ABG pO2 ABG Hemoglobin Sodium 135 L D Potassium Chloride Carbon Dioxide BUN Creatinine Glucose 250 H POC Glucose 224 H 213 H Hemoglobin A1c Lactic Acid Calcium Magnesium Ferritin Lactate Dehydrogenase C-Reactive Protein Total Protein Vancomycin Trough Random Vancomycin 01/18/20 01/18/20 01/18/20 12:47 16:56 22:03 WBC Hgb Hct MCH RDW Lymph % (Auto) Lymph # Seg Neutrophils % Seg Neuts % (Manual) Lymphocytes % (Manual) Nucleated RBC % Seg Neutrophils # Seg Neutrophils # Man Lymphocytes # (Manual) PT INR D-Dimer ABG pH ABG pO2 ABG Hemoglobin Sodium Potassium Chloride Carbon Dioxide BUN Creatinine Glucose POC Glucose 270 H 239 H Hemoglobin A1c 11.6 H Lactic Acid Calcium Magnesium Ferritin Lactate Dehydrogenase C-Reactive Protein Total Protein Vancomycin Trough Random Vancomycin 01/19/20 01/19/20 01/19/20 06:15 11:48 13:09 WBC Hgb Hct MCH 26 L RDW Lymph % (Auto) Lymph # Seg Neutrophils % Seg Neuts % (Manual) Lymphocytes % (Manual) Nucleated RBC % Seg Neutrophils # Seg Neutrophils # Man Lymphocytes # (Manual) PT INR D-Dimer ABG pH ABG pO2 ABG Hemoglobin Sodium Potassium Chloride Carbon Dioxide BUN Creatinine Glucose POC Glucose 248 H 268 H Hemoglobin A1c Lactic Acid Calcium Magnesium Ferritin Lactate Dehydrogenase C-Reactive Protein Total Protein Vancomycin Trough Random Vancomycin 01/19/20 01/19/20 01/20/20 17:44 21:09 09:03 WBC Hgb Hct MCH RDW Lymph % (Auto) Lymph # Seg Neutrophils % Seg Neuts % (Manual) Lymphocytes % (Manual) Nucleated RBC % Seg Neutrophils # Seg Neutrophils # Man Lymphocytes # (Manual) PT INR D-Dimer ABG pH ABG pO2 ABG Hemoglobin Sodium Potassium Chloride Carbon Dioxide BUN Creatinine Glucose POC Glucose 214 H 261 H 241 H Hemoglobin A1c Lactic Acid Calcium Magnesium Ferritin Lactate Dehydrogenase C-Reactive Protein Total Protein Vancomycin Trough Random Vancomycin 01/20/20 01/20/20 01/20/20 12:10 17:00 19:43 WBC Hgb Hct MCH RDW Lymph % (Auto) Lymph # Seg Neutrophils % Seg Neuts % (Manual) Lymphocytes % (Manual) Nucleated RBC % Seg Neutrophils # Seg Neutrophils # Man Lymphocytes # (Manual) PT INR D-Dimer ABG pH ABG pO2 ABG Hemoglobin Sodium Potassium Chloride Carbon Dioxide BUN Creatinine Glucose POC Glucose 284 H 272 H Hemoglobin A1c Lactic Acid Calcium Magnesium Ferritin Lactate Dehydrogenase C-Reactive Protein Total Protein Vancomycin Trough 4.0 L Random Vancomycin 01/20/20 01/21/20 01/21/20 22:39 09:29 11:41 WBC Hgb Hct MCH 26 L RDW Lymph % (Auto) Lymph # Seg Neutrophils % Seg Neuts % (Manual) Lymphocytes % (Manual) Nucleated RBC % Seg Neutrophils # Seg Neutrophils # Man Lymphocytes # (Manual) PT INR D-Dimer ABG pH ABG pO2 ABG Hemoglobin Sodium Potassium Chloride Carbon Dioxide BUN Creatinine Glucose POC Glucose 248 H 238 H Hemoglobin A1c Lactic Acid Calcium Magnesium Ferritin Lactate Dehydrogenase C-Reactive Protein Total Protein Vancomycin Trough Random Vancomycin 01/21/20 01/21/20 01/21/20 11:41 12:27 16:55 WBC Hgb Hct MCH RDW Lymph % (Auto) Lymph # Seg Neutrophils % Seg Neuts % (Manual) Lymphocytes % (Manual) Nucleated RBC % Seg Neutrophils # Seg Neutrophils # Man Lymphocytes # (Manual) PT INR D-Dimer ABG pH ABG pO2 ABG Hemoglobin Sodium 132 L Potassium 3.5 L Chloride 97.0 L Carbon Dioxide 19 L BUN Creatinine Glucose 274 H POC Glucose 264 H 261 H Hemoglobin A1c Lactic Acid Calcium Magnesium Ferritin Lactate Dehydrogenase C-Reactive Protein Total Protein Vancomycin Trough Random Vancomycin 01/21/20 01/22/20 01/22/20 22:39 09:05 12:57 WBC Hgb Hct MCH RDW Lymph % (Auto) Lymph # Seg Neutrophils % Seg Neuts % (Manual) Lymphocytes % (Manual) Nucleated RBC % Seg Neutrophils # Seg Neutrophils # Man Lymphocytes # (Manual) PT INR D-Dimer ABG pH ABG pO2 ABG Hemoglobin Sodium Potassium Chloride Carbon Dioxide BUN Creatinine Glucose POC Glucose 243 H 258 H 252 H Hemoglobin A1c Lactic Acid Calcium Magnesium Ferritin Lactate Dehydrogenase C-Reactive Protein Total Protein Vancomycin Trough Random Vancomycin 01/22/20 01/22/20 01/23/20 17:14 21:30 09:03 WBC Hgb Hct MCH RDW Lymph % (Auto) Lymph # Seg Neutrophils % Seg Neuts % (Manual) Lymphocytes % (Manual) Nucleated RBC % Seg Neutrophils # Seg Neutrophils # Man Lymphocytes # (Manual) PT INR D-Dimer ABG pH ABG pO2 ABG Hemoglobin Sodium Potassium Chloride Carbon Dioxide BUN Creatinine Glucose POC Glucose 306 H 217 H 156 H Hemoglobin A1c Lactic Acid Calcium Magnesium Ferritin Lactate Dehydrogenase C-Reactive Protein Total Protein Vancomycin Trough Random Vancomycin 01/23/20 01/23/20 01/23/20 10:36 11:12 17:11 WBC Hgb Hct MCH RDW Lymph % (Auto) Lymph # Seg Neutrophils % Seg Neuts % (Manual) Lymphocytes % (Manual) Nucleated RBC % Seg Neutrophils # Seg Neutrophils # Man Lymphocytes # (Manual) PT INR D-Dimer ABG pH ABG pO2 ABG Hemoglobin Sodium Potassium 3.0 L Chloride Carbon Dioxide 21 L BUN Creatinine Glucose 266 H POC Glucose 244 H 238 H Hemoglobin A1c Lactic Acid Calcium 8.3 L Magnesium Ferritin Lactate Dehydrogenase C-Reactive Protein Total Protein Vancomycin Trough Random Vancomycin 01/23/20 01/24/20 01/24/20 22:57 06:03 12:12 WBC Hgb Hct MCH RDW Lymph % (Auto) Lymph # Seg Neutrophils % Seg Neuts % (Manual) Lymphocytes % (Manual) Nucleated RBC % Seg Neutrophils # Seg Neutrophils # Man Lymphocytes # (Manual) PT INR D-Dimer ABG pH ABG pO2 ABG Hemoglobin Sodium Potassium 3.2 L Chloride Carbon Dioxide 19 L BUN Creatinine Glucose 231 H POC Glucose 228 H 210 H Hemoglobin A1c Lactic Acid Calcium 8.2 L Magnesium Ferritin Lactate Dehydrogenase C-Reactive Protein Total Protein Vancomycin Trough Random Vancomycin 01/24/20 01/24/20 01/24/20 12:50 19:01 21:49 WBC Hgb Hct MCH RDW Lymph % (Auto) Lymph # Seg Neutrophils % Seg Neuts % (Manual) Lymphocytes % (Manual) Nucleated RBC % Seg Neutrophils # Seg Neutrophils # Man Lymphocytes # (Manual) PT INR D-Dimer ABG pH 7.485 H ABG pO2 63.4 L ABG Hemoglobin 5.0 L Sodium Potassium Chloride Carbon Dioxide BUN Creatinine Glucose POC Glucose 183 H 193 H Hemoglobin A1c Lactic Acid Calcium Magnesium Ferritin Lactate Dehydrogenase C-Reactive Protein Total Protein Vancomycin Trough Random Vancomycin 01/25/20 01/25/20 01/25/20 09:13 16:58 22:23 WBC Hgb Hct MCH RDW Lymph % (Auto) Lymph # Seg Neutrophils % Seg Neuts % (Manual) Lymphocytes % (Manual) Nucleated RBC % Seg Neutrophils # Seg Neutrophils # Man Lymphocytes # (Manual) PT INR D-Dimer ABG pH ABG pO2 ABG Hemoglobin Sodium Potassium Chloride Carbon Dioxide BUN Creatinine Glucose POC Glucose 196 H 231 H 159 H Hemoglobin A1c Lactic Acid Calcium Magnesium Ferritin Lactate Dehydrogenase C-Reactive Protein Total Protein Vancomycin Trough Random Vancomycin 01/26/20 01/26/20 01/26/20 05:40 05:40 05:40 WBC 16.4 H Hgb Hct MCH 26 L RDW 12.9 L Lymph % (Auto) Lymph # Seg Neutrophils % Seg Neuts % (Manual) 90.0 H Lymphocytes % (Manual) 1.0 L Nucleated RBC % 1.0 H Seg Neutrophils # Seg Neutrophils # Man 14.8 H Lymphocytes # (Manual) 0.2 L PT INR D-Dimer 2624.11 H ABG pH ABG pO2 ABG Hemoglobin Sodium 135 L Potassium 2.7 L* Chloride Carbon Dioxide 21 L BUN Creatinine Glucose 132 H POC Glucose Hemoglobin A1c Lactic Acid Calcium 8.0 L Magnesium Ferritin Lactate Dehydrogenase C-Reactive Protein Total Protein Vancomycin Trough Random Vancomycin 01/26/20 01/26/20 01/26/20 05:40 05:40 08:58 WBC Hgb Hct MCH RDW Lymph % (Auto) Lymph # Seg Neutrophils % Seg Neuts % (Manual) Lymphocytes % (Manual) Nucleated RBC % Seg Neutrophils # Seg Neutrophils # Man Lymphocytes # (Manual) PT INR D-Dimer ABG pH ABG pO2 ABG Hemoglobin Sodium Potassium Chloride Carbon Dioxide BUN Creatinine Glucose POC Glucose 131 H Hemoglobin A1c Lactic Acid Calcium Magnesium Ferritin 2758.0 H Lactate Dehydrogenase C-Reactive Protein 26.90 H Total Protein Vancomycin Trough Random Vancomycin 01/26/20 01/26/20 01/26/20 13:00 16:30 21:22 WBC Hgb Hct MCH RDW Lymph % (Auto) Lymph # Seg Neutrophils % Seg Neuts % (Manual) Lymphocytes % (Manual) Nucleated RBC % Seg Neutrophils # Seg Neutrophils # Man Lymphocytes # (Manual) PT INR D-Dimer ABG pH ABG pO2 ABG Hemoglobin Sodium Potassium Chloride Carbon Dioxide BUN Creatinine Glucose POC Glucose 136 H 146 H 139 H Hemoglobin A1c Lactic Acid Calcium Magnesium Ferritin Lactate Dehydrogenase C-Reactive Protein Total Protein Vancomycin Trough Random Vancomycin 01/27/20 01/27/20 01/27/20 05:14 07:37 12:05 WBC Hgb Hct MCH RDW Lymph % (Auto) Lymph # Seg Neutrophils % Seg Neuts % (Manual) Lymphocytes % (Manual) Nucleated RBC % Seg Neutrophils # Seg Neutrophils # Man Lymphocytes # (Manual) PT INR D-Dimer ABG pH ABG pO2 ABG Hemoglobin Sodium 135 L Potassium 3.4 L D Chloride Carbon Dioxide 17 L BUN 24 H Creatinine 1.4 H D Glucose 143 H POC Glucose 133 H 141 H Hemoglobin A1c Lactic Acid Calcium 7.6 L Magnesium Ferritin Lactate Dehydrogenase C-Reactive Protein Total Protein Vancomycin Trough Random Vancomycin 01/27/20 01/27/20 01/27/20 17:37 22:14 23:53 WBC Hgb Hct MCH RDW Lymph % (Auto) Lymph # Seg Neutrophils % Seg Neuts % (Manual) Lymphocytes % (Manual) Nucleated RBC % Seg Neutrophils # Seg Neutrophils # Man Lymphocytes # (Manual) PT INR D-Dimer 2675.43 H ABG pH ABG pO2 ABG Hemoglobin Sodium Potassium Chloride Carbon Dioxide BUN Creatinine Glucose POC Glucose 153 H 124 H Hemoglobin A1c Lactic Acid Calcium Magnesium Ferritin Lactate Dehydrogenase C-Reactive Protein Total Protein Vancomycin Trough Random Vancomycin 01/27/20 01/27/20 01/28/20 23:53 23:53 08:36 WBC Hgb Hct MCH RDW Lymph % (Auto) Lymph # Seg Neutrophils % Seg Neuts % (Manual) Lymphocytes % (Manual) Nucleated RBC % Seg Neutrophils # Seg Neutrophils # Man Lymphocytes # (Manual) PT INR D-Dimer ABG pH ABG pO2 ABG Hemoglobin Sodium Potassium Chloride Carbon Dioxide BUN Creatinine Glucose POC Glucose 165 H Hemoglobin A1c Lactic Acid Calcium Magnesium Ferritin 3523.0 H Lactate Dehydrogenase 1132 H C-Reactive Protein 15.60 H Total Protein Vancomycin Trough Random Vancomycin 01/28/20 01/28/20 01/28/20 10:00 10:00 12:42 WBC Hgb Hct MCH RDW Lymph % (Auto) Lymph # Seg Neutrophils % Seg Neuts % (Manual) Lymphocytes % (Manual) Nucleated RBC % Seg Neutrophils # Seg Neutrophils # Man Lymphocytes # (Manual) PT INR D-Dimer ABG pH ABG pO2 ABG Hemoglobin Sodium 131 L Potassium 3.5 L Chloride Carbon Dioxide 16 L BUN 51 H Creatinine 3.5 H D Glucose 180 H POC Glucose 188 H Hemoglobin A1c Lactic Acid Calcium 7.5 L Magnesium Ferritin Lactate Dehydrogenase C-Reactive Protein Total Protein Vancomycin Trough Random Vancomycin 65.8 H 01/28/20 01/28/20 01/29/20 17:27 22:06 07:29 WBC 17.0 H Hgb 9.6 L Hct 29.5 L MCH 26 L RDW Lymph % (Auto) Lymph # Seg Neutrophils % Seg Neuts % (Manual) Lymphocytes % (Manual) Nucleated RBC % Seg Neutrophils # Seg Neutrophils # Man Lymphocytes # (Manual) PT INR D-Dimer ABG pH ABG pO2 ABG Hemoglobin Sodium Potassium Chloride Carbon Dioxide BUN Creatinine Glucose POC Glucose 161 H 158 H Hemoglobin A1c Lactic Acid Calcium Magnesium Ferritin Lactate Dehydrogenase C-Reactive Protein Total Protein Vancomycin Trough Random Vancomycin 01/29/20 01/29/20 01/29/20 07:29 11:54 11:54 WBC Hgb Hct MCH RDW Lymph % (Auto) Lymph # Seg Neutrophils % Seg Neuts % (Manual) Lymphocytes % (Manual) Nucleated RBC % Seg Neutrophils # Seg Neutrophils # Man Lymphocytes # (Manual) PT INR D-Dimer 1499 H ABG pH ABG pO2 ABG Hemoglobin Sodium 133 L Potassium Chloride Carbon Dioxide 15 L BUN 69 H Creatinine 4.1 H Glucose 161 H POC Glucose Hemoglobin A1c Lactic Acid Calcium 7.6 L Magnesium Ferritin > 2000.0 H Lactate Dehydrogenase C-Reactive Protein Total Protein Vancomycin Trough Random Vancomycin 01/29/20 11:54 WBC Hgb Hct MCH RDW Lymph % (Auto) Lymph # Seg Neutrophils % Seg Neuts % (Manual) Lymphocytes % (Manual) Nucleated RBC % Seg Neutrophils # Seg Neutrophils # Man Lymphocytes # (Manual) PT INR D-Dimer ABG pH ABG pO2 ABG Hemoglobin Sodium Potassium Chloride Carbon Dioxide BUN Creatinine Glucose POC Glucose Hemoglobin A1c Lactic Acid Calcium Magnesium Ferritin Lactate Dehydrogenase 946 H C-Reactive Protein 13.30 H Total Protein Vancomycin Trough Random Vancomycin Allied health notes reviewed: nursing
--- NOTE | 2020-01-29 16:05 | Progress Note ---
Assessment and Plan Assessment and plan: 29-year-old female with known history of diabetes mellitus presenting to the emergency room today complaining of pain on the right big toe. Patient had an injury to the right big toe about 2 to 3 weeks ago when an object fell on the toe. She has gone to an urgent care facility where she was given some antibiotics namely Bactrim to the right big toe wound. She has noticed that the wound has not improved and she has been having progressive pain. She denies any fever or chills, no nausea vomiting, no cough or shortness of breath, no chest pain. She denies any sick contacts and no recent travel. Work-up in the emergency room reveals hyperglycemia chest x-ray also reveals a right-sided pneumonia with accompanying sepsis. Patient started on empiric IV antibiotics. 01/28: In addition to treatment as noted below patient was noted to have indurated area in the left thigh, Concerning for abscess development. Will obtain CT of the lower extremity - Patient Problems (1) Pneumonia Current Visit: Yes Status: Acute Plan to address problem: Patient currently with a left lower lobe pneumonia. Treated with cefepime. Patient remains febrile. Actual source unknown foot versus lung disease. Versus acute viral illness. We will follow-up labs in a.m. Still febrile. (2) SIRS (systemic inflammatory response syndrome) Current Visit: Yes Status: Acute Plan to address problem: Continue supportive care and treatment for community-acquired pneumonia. Continues to be febrile. Most likely secondary to the acute viral illness. (3) Open wound of great toe Current Visit: Yes Status: Acute Plan to address problem: Patient diabetic foot wound. Being treated local wound care plus vancomycin. When patient more stable obtain MRI. (4) Hypertension Current Visit: Yes Status: Acute Plan to address problem: Fair control with Coreg amlodipine. (5) Uncontrolled diabetes mellitus Current Visit: Yes Status: Acute Plan to address problem: Optimal control of blood sugar. Continue present management. (6) Hypokalemia Current Visit: Yes Status: Acute Plan to address problem: Hypokalemia we will treat IV today. Also given additional p.o. Recheck a.m. (7) COVID-19 virus detected Current Visit: Yes Status: Acute Plan to address problem: Continue treatment with Plaquenil. Continuos pulse oximetry and exercise oximetry (2 min walking in the room, if ok ok to d/c) f/u COVID test - pending Continue COVID isolation precautions per PSYCHIATRIC protocol Continue cefepime total 3 days Continue azithromycin total 5 days ok to change to po Obtain serial Ferritin, LDH, D-Dimer, CRP every 48h Home quarantine for 14 days from initial symptoms (own bedroom, toilet, utensils), educate that viral shedding may last 21 days (8) poor p.o. intake: Encourage p.o. intake. We will also change insulin to sl iding scale at this point to prevent hypoglycemia. 9) acute on chronic respiratory failure question underlining morbid obesity hypoventilation syndrome Continues on high flow oxygen. 10) acute kidney injury secondary to vasomotor nephropathy: Nephrology consult. Continue gentle hydration. History Interval history: Patient seen and examined resting appears lethargic per nursing staff poor appetite. This morning noted to have tenderness and induration with excoriation of the left thigh close to the groin concerning for possible abscess. She denies shortness of breath but reports neck pain which she states is chronic Hospitalist Physical - Physical exam Narrative exam: VITAL SIGNS: Reviewed. GENERAL: The patient appears normally developed, lethargic, morbidly obese, Vital signs as documented. HEAD: No signs of head trauma. EYES: Pupils are equal. Extraocular motions intact. EARS: Hearing grossly intact. MOUTH: Oropharynx is normal. NECK: No adenopathy, no JVD. CHEST: Chest with diminished breath sounds bilaterally. No wheezes, rales, or rhonchi. CARDIAC: Regular rate and rhythm. S1 and S2, without murmurs, gallops, or rubs. VASCULAR: + Edema. Peripheral pulses normal and equal in all extremities. ABDOMEN: Soft, non tender and non distended. No rebound or guarding, and no masses palpated. Bowel Sounds normal. MUSCULOSKELETAL: Maceration in the left thigh with induration right hallux wound, left foot callus, Good range of motion of all major joints. Extremities without clubbing, cyanosis +edema. NEUROLOGIC EXAM: Alert and oriented x 3 No focal sensory or strength deficits. Speech normal. Follows commands. PSYCHIATRIC: Mood normal. SKIN: Right hallux wound, left foot callus, detail exam as documented in skin assessment - Constitutional Vitals: Temp Pulse Resp BP Pulse Ox 97.8 F 74 20 94/63 99 01/29/20 12:47 01/29/20 14:00 01/29/20 12:47 01/29/20 14:00 01/29/20 12:47 General appearance: Present: no acute distress Results - Labs CBC & Chem 7: 01/29/20 07:29 01/29/20 07:29 Labs: Laboratory Last Values WBC 17.0 K/mm3 (4.5-11.0) H 01/29/20 07:29 RBC 3.72 M/mm3 (3.65-5.03) 01/29/20 07:29 Hgb 9.6 gm/dl (10.1-14.3) L 01/29/20 07:29 Hct 29.5 % (30.3-42.9) L 01/29/20 07:29 MCV 79 fl (79-97) 01/29/20 07:29 MCH 26 pg (28-32) L 01/29/20 07:29 MCHC 32 % (30-34) 01/29/20 07:29 RDW 13.7 % (13.2-15.2) 01/29/20 07:29 Plt Count 187 K/mm3 (140-440) 01/29/20 07:29 Lymph % (Auto) 16.6 % (13.4-35.0) 01/18/20 08:30 [place] % (Auto) 2.8 % (0.0-7.3) 01/18/20 08:30 Eos % (Auto) 0.1 % (0.0-4.3) 01/18/20 08:30 Baso % (Auto) 0.4 % (0.0-1.8) 01/18/20 08:30 Lymph # 1.2 K/mm3 (1.2-5.4) 01/18/20 08:30 [place] # 0.2 K/mm3 (0.0-0.8) 01/18/20 08:30 Eos # 0.0 K/mm3 (0.0-0.4) 01/18/20 08:30 Baso # 0.0 K/mm3 (0.0-0.1) 01/18/20 08:30 Add Manual Diff Complete 01/26/20 05:40 Total Counted 100 01/26/20 05:40 Seg Neutrophils % Health Service Coordinator 01/26/20 05:40 Seg Neuts % (Manual) 90.0 % (40.0-70.0) H 01/26/20 05:40 Band Neutrophils % 5.0 % 01/26/20 05:40 Lymphocytes % (Manual) 1.0 % (13.4-35.0) L 01/26/20 05:40 Reactive Lymphs % (Man) 0 % 01/26/20 05:40 Monocytes % (Manual) 2.0 % (0.0-7.3) 01/26/20 05:40 Eosinophils % (Manual) 2.0 % (0.0-4.3) 01/26/20 05:40 Basophils % (Manual) 0 % (0.0-1.8) 01/26/20 05:40 Metamyelocytes % 0 % 01/26/20 05:40 Myelocytes % 0 % 01/26/20 05:40 Promyelocytes % 0 % 01/26/20 05:40 Blast Cells % 0 % 01/26/20 05:40 Nucleated RBC % 1.0 % (0.0-0.9) H 01/26/20 05:40 Seg Neutrophils # 5.9 K/mm3 (1.8-7.7) 01/18/20 08:30 Seg Neutrophils # Man 14.8 K/mm3 (1.8-7.7) H 01/26/20 05:40 Band Neutrophils # 0.8 K/mm3 01/26/20 05:40 Lymphocytes # (Manual) 0.2 K/mm3 (1.2-5.4) L 01/26/20 05:40 Abs React Lymphs (Man) 0.0 K/mm3 01/26/20 05:40 Monocytes # (Manual) 0.3 K/mm3 (0.0-0.8) 01/26/20 05:40 Eosinophils # (Manual) 0.3 K/mm3 (0.0-0.4) 01/26/20 05:40 Basophils # (Manual) 0.0 K/mm3 (0.0-0.1) 01/26/20 05:40 Metamyelocytes # 0.0 K/mm3 01/26/20 05:40 Myelocytes # 0.0 K/mm3 01/26/20 05:40 Promyelocytes # 0.0 K/mm3 01/26/20 05:40 Blast Cells # 0.0 K/mm3 01/26/20 05:40 WBC Morphology Not Reportable 01/26/20 05:40 Hypersegmented Neuts Not Reportable 01/26/20 05:40 Hyposegmented Neuts Not Reportable 01/26/20 05:40 Hypogranular Neuts Not Reportable 01/26/20 05:40 Smudge Cells Not Reportable 01/26/20 05:40 Toxic Granulation Not Reportable 01/26/20 05:40 Toxic Vacuolation Not Reportable 01/26/20 05:40 Dohle Bodies Not Reportable 01/26/20 05:40 Pelger-Huet Anomaly Not Reportable 01/26/20 05:40 Barbie Rods Not Reportable 01/26/20 05:40 Platelet Estimate Consistent w auto 01/26/20 05:40 Clumped Platelets Not Reportable 01/26/20 05:40 Plt Clumps, EDTA Not Reportable 01/26/20 05:40 Large Platelets Not Reportable 01/26/20 05:40 Giant Platelets Not Reportable 01/26/20 05:40 Platelet Satelliting Not Reportable 01/26/20 05:40 Plt Morphology Comment Not Reportable 01/26/20 05:40 RBC Morphology Normal 01/26/20 05:40 Dimorphic RBCs Not Reportable 01/26/20 05:40 Polychromasia Not Reportable 01/26/20 05:40 Hypochromasia Not Reportable 01/26/20 05:40 Poikilocytosis Not Reportable 01/26/20 05:40 Anisocytosis Not Reportable 01/26/20 05:40 Microcytosis Not Reportable 01/26/20 05:40 Macrocytosis Not Reportable 01/26/20 05:40 Spherocytes Not Reportable 01/26/20 05:40 Pappenheimer Bodies Not Reportable 01/26/20 05:40 Sickle Cells Not Reportable 01/26/20 05:40 Target Cells Not Reportable 01/26/20 05:40 Tear Drop Cells Not Reportable 01/26/20 05:40 Ovalocytes Not Reportable 01/26/20 05:40 Helmet Cells Not Reportable 01/26/20 05:40 [place] Bodies Not Reportable 01/26/20 05:40 Adrian Rings Not Reportable 01/26/20 05:40 [place] Cells Not Reportable 01/26/20 05:40 Bite Cells Not Reportable 01/26/20 05:40 Crenated Cell Not Reportable 01/26/20 05:40 Elliptocytes Not Reportable 01/26/20 05:40 Acanthocytes (Spur) Not Reportable 01/26/20 05:40 Rouleaux Not Reportable 01/26/20 05:40 Hemoglobin C Crystals Not Reportable 01/26/20 05:40 Schistocytes Not Reportable 01/26/20 05:40 Malaria parasites Not Reportable 01/26/20 05:40 ESR 70 mm/Hr (0-20) 01/17/20 22:58 Ras Bodies Not Reportable 01/26/20 05:40 Hem Pathologist Commnt No 01/26/20 05:40 PT 15.6 Sec. (12.2-14.9) H 01/17/20 18:28 INR 1.22 (0.87-1.13) H 01/17/20 18:28 D-Dimer 1499 ng/mlDDU (0-234) H 01/29/20 11:54 ABG pH 7.485 pH Units (7.350-7.450) H 01/24/20 12:50 ABG pCO2 30.2 mm Hg 01/24/20 12:50 ABG pO2 63.4 mm Hg (80.0-90.0) L 01/24/20 12:50 ABG HCO3 22.2 mmol/L (20.0-26.0) 01/24/20 12:50 ABG O2 Saturation 98.0 % (95.0-99.0) 01/24/20 12:50 ABG O2 Content 6.9 (0.0-44) 01/24/20 12:50 ABG Base Excess -1.2 mmol/L (-2.0-3.0) 01/24/20 12:50 ABG Hemoglobin 5.0 gm/dl (12.0-16.0) L 01/24/20 12:50 ABG Carboxyhemoglobin 1.2 % (0.0-5.0) 01/24/20 12:50 ABG Methemoglobin 0.6 % (0.0-1.5) 01/24/20 12:50 VBG pH 7.409 (7.320-7.420) 01/17/20 18:28 Oxyhemoglobin 96.2 % (95.0-99.0) 01/24/20 12:50 FiO2 80 % 01/24/20 12:50 Sodium 133 mmol/L (137-145) L 01/29/20 07:29 Potassium 3.9 mmol/L (3.6-5.0) 01/29/20 07:29 Chloride 100.2 mmol/L (98-107) 01/29/20 07:29 Carbon Dioxide 15 mmol/L (22-30) L 01/29/20 07:29 Anion Gap 22 mmol/L 01/29/20 07:29 BUN 69 mg/dL (7-17) H 01/29/20 07:29 Creatinine 4.1 mg/dL (0.7-1.2) H 01/29/20 07:29 Estimated GFR 15 ml/min 01/29/20 07:29 BUN/Creatinine Ratio 17 % 01/29/20 07:29 Glucose 161 mg/dL (65-100) H 01/29/20 07:29 POC Glucose 170 (70-105) H 01/29/20 08:20 Hemoglobin A1c 11.6 % (4-6) H 01/18/20 12:47 Lactic Acid 1.30 mmol/L (0.7-2.0) 01/18/20 08:30 Calcium 7.6 mg/dL (8.4-10.2) L 01/29/20 07:29 Magnesium 1.50 mg/dL (1.7-2.3) L 01/17/20 22:58 Ferritin > 2000.0 ng/mL (13.0-400.0) H 01/29/20 11:54 Total Bilirubin 0.40 mg/dL (0.1-1.2) 01/17/20 18:28 AST 27 units/L (5-40) 01/17/20 18:28 ALT 26 units/L (7-56) 01/17/20 18:28 Alkaline Phosphatase 57 units/L (35-129) 01/17/20 18:28 Lactate Dehydrogenase 946 units/L (91-180) H 01/29/20 11:54 Total Creatine Kinase 122 units/L (30-135) 01/17/20 22:58 C-Reactive Protein 13.30 mg/dL (0.00-1.30) H 01/29/20 11:54 Total Protein 9.0 g/dL (6.3-8.2) H 01/17/20 18:28 Albumin 4.1 g/dL (3.9-5) 01/17/20 18:28 Albumin/Globulin Ratio 0.8 % 01/17/20 18:28 Procalcitonin 0.27 ng/mL (<0.15) 01/23/20 10:36 Urine Color Yellow (Yellow) 01/18/20 00:32 Urine Turbidity Slightly-cloudy (Clear) 01/18/20 00:32 Urine pH 5.0 (5.0-7.0) 01/18/20 00:32 Ur Specific [place] 1.011 (1.003-1.030) 01/18/20 00:32 Urine Protein 100 mg/dl mg/dL (Negative) 01/18/20 00:32 Urine Glucose (UA) >=500 mg/dL (Negative) 01/18/20 00:32 Urine Ketones Tr mg/dL (Negative) 01/18/20 00:32 Urine Blood Neg (Negative) 01/18/20 00:32 Urine Nitrite Neg (Negative) 01/18/20 00:32 Urine Bilirubin Neg (Negative) 01/18/20 00:32 Urine Urobilinogen < 2.0 mg/dL (<2.0) 01/18/20 00:32 Ur Leukocyte Esterase Neg (Negative) 01/18/20 00:32 Urine WBC (Auto) 2.0 /HPF (0.0-6.0) 01/18/20 00:32 Urine RBC (Auto) 4.0 /HPF (0.0-6.0) 01/18/20 00:32 U Epithel Cells (Auto) 2.0 /HPF (0-13.0) 01/18/20 00:32 Hyaline Casts 1 /LPF 01/18/20 00:32 Urine Mucus Few /HPF 01/18/20 00:32 Urine Yeast (Budding) Few /HPF 01/18/20 00:32 Vancomycin Trough 5.7 ug/mL (5.0-20.0) 01/25/20 13:06 Random Vancomycin 65.8 ug/mL (0-40.0) H 01/28/20 10:00 Influenza A (Rapid) Negative (Negative) 01/19/20 01:10 Influenza B (Rapid) Negative (Negative) 01/19/20 01:10 AFB Identification 01/20/20 04:00 Miscellaneous Test See scanned result 01/18/20 Unknown Goldstein/IV: Voiding Method Toilet IV Catheter Type [right ac] Peripheral IV IV Catheter Type [Right Wrist] INT / Saline Lock IV Catheter Type [Right Hand] INT / Saline Lock IV Catheter Type [Right Upper INT / Saline Lock arm] IV Catheter Type [Left Hand] INT / Saline Lock Active Medications - Current Medications Current Medications: Generic Name Dose Route Start Last Admin Trade Name Freq PRN Reason Stop Dose Admin Acetaminophen 650 mg 01/17/20 23:06 01/29/20 06:34 Tylenol PO 650 mg Q4H PRN Administration Pain MILD(1-3)/Fever >100.5/COLLINS Amlodipine Besylate 10 mg 01/19/20 12:00 01/29/20 11:17 Amlodipine PO Not Given QDAY COBY Carvedilol 25 mg 01/23/20 22:00 01/29/20 11:20 Coreg PO 25 mg Q12HR COBY Administration Dextrose 0 ml 01/17/20 23:06 D50w (25gm) Syringe IV Q30MIN PRN Hypoglycemia Protocol Famotidine 20 mg 01/24/20 10:00 01/29/20 11:20 Pepcid PO 20 mg QDAY COBY Administration Heparin Sodium (Porcine) 5,000 unit 01/18/20 06:00 01/29/20 14:00 Heparin SUB-Q 5,000 unit Q8HR COBY Administration Hydralazine HCl 10 mg 01/18/20 22:14 01/22/20 18:43 Apresoline IV 10 mg Q6H PRN Administration Hypertension Hydralazine HCl 50 mg 01/19/20 14:00 01/29/20 14:00 Apresoline PO Not Given Q8HR COBY Hydroxychloroquine Sulfate 200 mg 01/28/20 23:00 01/29/20 11:21 Plaquenil PO 02/01/20 22:59 200 mg BID COBY Administration Cefepime HCl 2 gm in 100 mls @ 200 mls/hr 01/29/20 10:00 01/29/20 11:18 Cefepime/Ns 2 Gm/100 Ml IV 200 mls/hr Q24HR COBY Administration Protocol Sodium Chloride 1,000 mls @ 75 mls/hr 01/28/20 17:30 01/29/20 06:34 Nacl 0.9% 1000 Ml IV 75 mls/hr DIRECT COBY Administration Insulin Human Isoph/Insulin Regular 12 unit 01/25/20 09:00 01/29/20 08:56 Humulin 70/30 SUB-Q Not Given BIDDIAB COBY Insulin Human Regular 0 units 01/19/20 11:30 01/29/20 11:30 Humulin R SUB-Q Not Given ACHS [facility] Protocol Magnesium Hydroxide 30 ml 01/17/20 23:06 Milk Of Magnesia PO Q4H PRN Constipation Morphine Sulfate 2 mg 01/17/20 23:06 01/28/20 12:35 Morphine IV 2 mg Q4H PRN Administration Pain, Moderate (4-6) Nystatin 1 applic 01/29/20 14:00 Nystop TP BID COBY Ondansetron HCl 4 mg 01/17/20 23:06 Zofran IV Q8H PRN Nausea And Vomiting Sodium Chloride 10 ml 01/18/20 10:00 01/29/20 11:20 Sodium Chloride Flush Syringe 10 Ml IV 10 ml BID COBY Administration Sodium Chloride 10 ml 01/17/20 23:06 Sodium Chloride Flush Syringe 10 Ml IV PRN PRN LINE FLUSH Zinc Sulfate 220 mg 01/29/20 12:00 01/29/20 11:19 Zinc Sulfate PO 220 mg DAILY@1200 COBY Administration Nutrition/Malnutrition Assess - Dietary Evaluation Nutrition/Malnutrition Findings: Nutrition Notes Start: 01/18/20 13:13 Freq: Status: Active Protocol: Document 01/29/20 12:28 LM (Rec: 01/29/20 12:36 LM [id number]) Nutrition Notes Initial or Follow up Reassessment Current Diagnosis Diabetes,Sepsis Other Pertinent Diagnosis COVID-19 positive, LEV pnue, ( R) great toe wound Current Diet Consistent CHO Labs/Tests Na 133 BUN 69 Cr 4.1 BG 161 Pertinent Medications Humulin NaCl at 75ml/hr Height 6 ft Weight 141 kg [place] Body Weight (kg) 72.72 BMI 42.1 Weight Status Morbidly Obese Subjective/Other Information Pt was difficult to understand as pt not feeling well. Pt could not say how much of breakfast she ate. 0% intake of breakfast documented in chart. Spoke to pt about trying ONS to provide more nutrition for her and pt agreed. Will also add soup to prefeences. Burn Absent Trauma Absent Minimum of two criteria No physical signs of malnutrition #2 Nutrition Diagnosis Inadequate protein-energy intake Diagnosis Progress(for reassessment Continues documentation) #1 Nutrition Diagnosis Increased nutrient needs ( specify in comment below) Diagnosis Progress(for reassessment Continues documentation) Is patient on ventilator? No Is Patient Ambulatory and/or Out of Bed Yes REE-([place] Jeor-ambulatory/OOB) [ 2914.600 NUTR.MSJOOB] Kcal/Kg value to use for calculation 15 Approximate Energy Requirements Using 2115 kcal/Kg Calculation Used for Recommendations Kcal/kg Additional Notes Pro needs 1.25-1.5g/kg adjBW: 134-161g/day Fluid needs 1ml/kcal Nutrition Intervention Change Diet Order: Continue current diet order Add Supplement/Snack (indicate name/kcal Ensure Enlive BID /protein ) Provides kCal: 700 Provides Protein (gm) 40 Goal #1 PO intake of meals plus ONS to meet at least 75% of nutrient needs Goal #2 Wound healing Anticipated Discharge Needs: consistent CHO Follow-Up By: 01/31/20 Additional Comments F/U for PO/ONS intakes
--- NOTE | 2020-01-29 16:44 | Progress Note ---
Assessment and Plan Cultures: Blood culture 01/17/2020 no growth to date Urine culture 01/17/2020 no growth to date Sputum normal resp dulce A/P: 29-year-old female past medical history diabetes admitted with acute sepsis secondary to right foot wound versus pneumonia. #Acute sepsis: fever resolved, now leukoctosis increasing. Secondary to her foot wound versus pneumonia. #Severe COVID-19 pneumonia: Coronavirus testing has returned positive. Very high inflammatory markers - ferritin 2758. Ferritin elevated, CRP/LDH improving. Risk for cytokine storm secondary to COVID and high risk for ARDS #Acute respiratory failure: improving, now on [place] O2 #Right foot wound: Will need MRI when more stable to rule out osteomyelitis of the toe. Continue empiric vancomycin and cefepime for now. #Diabetes: tight glycemic control for best outcomes. #CIPRIANO: renally adjust abx #Morbid obesity Recs: Continuos pulse oximetry ContinueCOVID isolationprecautions per [facility] protocol Continue hydroxychloroquine 200 mg PO BID for 4 days (total 5 days) with zinc 220 mg PO qday Obtain serial Ferritin, LDH, D-Dimer, CRP every 48h Daily EKG - QT monitoring - stop plaqenil if QT interval >500 Obtain IL-6 (sent out) to evaluate cytokine release syndrome due to COVID and consider IV tocilizumab (Actemra) (off-label use) Continue cefepime 2 g every 8 hours Obtain MRI of the right foot -not urgent given present situation, can defer for now while treating for COVID-19. Thank you for the consult, we will continue to follow. Janett Duffy MD Infectious Diseases Condenser Operator [facility] ([facility]) M [phone] O [phone] Subjective Date of service: 01/29/20 Principal diagnosis: Severe Sepsis; LEV PNA; DM II; Morbid obesity; R/O COVID-19 infection Interval history: Remains better, now on [place] O2 3 L, no fever Objective - Exam Narrative Exam: Constitutional: Alert, cooperative on HFO2 Oral: limited due to lack opf PPE Cardiovascular: Respiratory: GI: Soft, obese Musculoskeletal: Right hallux wound, left foot callus Skin: Hem/Lymphatic: Psych: Mood ok. Affect normal Neurological: Awake, alert, oriented. No gross abnormality - Constitutional Vitals: Vital Signs Temp Pulse Resp BP Pulse Ox 97.7 F 79 24 97/57 100 01/29/20 16:03 01/29/20 16:03 01/29/20 16:03 01/29/20 16:03 01/29/20 16:03 Temperature -Last 24 Hours Temperature 97.7 F Temperature 97.8 F Temperature 97.7 F Temperature 98.3 F Temperature 99.3 F - Labs CBC & Chem 7: 01/29/20 07:29 01/29/20 07:29 Labs: Abnormal lab results 01/28/20 01/28/20 01/29/20 Range/Units 17:27 22:06 07:29 WBC 17.0 H (4.5-11.0) K/mm3 Hgb 9.6 L (10.1-14.3) gm/dl Hct 29.5 L (30.3-42.9) % MCH 26 L (28-32) pg D-Dimer (0-234) ng/mlDDU Sodium (137-145) mmol/L Carbon Dioxide (22-30) mmol/L BUN (7-17) mg/dL Creatinine (0.7-1.2) mg/dL Glucose (65-100) mg/dL POC Glucose 161 H 158 H (70-105) Calcium (8.4-10.2) mg/dL Ferritin (13.0-400.0) ng/mL Lactate Dehydrogenase (91-180) units/L C-Reactive Protein (0.00-1.30) mg/dL 01/29/20 01/29/20 01/29/20 Range/Units 07:29 08:20 11:54 WBC (4.5-11.0) K/mm3 Hgb (10.1-14.3) gm/dl Hct (30.3-42.9) % MCH (28-32) pg D-Dimer (0-234) ng/mlDDU Sodium 133 L (137-145) mmol/L Carbon Dioxide 15 L (22-30) mmol/L BUN 69 H (7-17) mg/dL Creatinine 4.1 H (0.7-1.2) mg/dL Glucose 161 H (65-100) mg/dL POC Glucose 170 H (70-105) Calcium 7.6 L (8.4-10.2) mg/dL Ferritin > 2000.0 H (13.0-400.0) ng/mL Lactate Dehydrogenase (91-180) units/L C-Reactive Protein (0.00-1.30) mg/dL 01/29/20 01/29/20 Range/Units 11:54 11:54 WBC (4.5-11.0) K/mm3 Hgb (10.1-14.3) gm/dl Hct (30.3-42.9) % MCH (28-32) pg D-Dimer 1499 H (0-234) ng/mlDDU Sodium (137-145) mmol/L Carbon Dioxide (22-30) mmol/L BUN (7-17) mg/dL Creatinine (0.7-1.2) mg/dL Glucose (65-100) mg/dL POC Glucose (70-105) Calcium (8.4-10.2) mg/dL Ferritin (13.0-400.0) ng/mL Lactate Dehydrogenase 946 H (91-180) units/L C-Reactive Protein 13.30 H (0.00-1.30) mg/dL
[2020-01-29] MEDS: NYSTATIN POWDER 15 GM TP SCH ×2 (18:07→22:06)
--- NOTE | 2020-01-29 18:31 | Consultation ---
History of Present Illness - Reason for Consult Consult date: 01/29/20 acute renal failure Requesting physician: DARYA TAPIA - History of Present Illness This is a 29yo F with past medical history of T2DM, obesity, who presents to [facility] with complaints of R big toe pain. As per patient a object fell on ther R big toe about 2-3weeks ago, she went to urgent care facility and was treated with Bactrim, however wound has not improved and pain persisted. In ER Foot XR s howed no obvious osteomyelitis, however CXR showed left upper lobe pneumonia. Patient was admitted for IV ABXs treatment. Pt initially did not have fever or chills, denied nausea vomiting, no cough or shortness of breath, no chest pain. She denies any sick contacts and no recent travel. However hospital course was complicated by persistent fever despite empiric IV ABXs treatment. Further work up was obtained, incl, influenza which was negative, however COVID19 came back positive. Initial inflammatory parameters were significantly elevated, incl. ferritin > 3000ng/ml, LDH > 1000U/L, CRP > 26mg/dl, pt was initiated on hydroxychloroquine/Azithromycin along with cefepime. Course was complicated by acute renal failure with BUN/Cr rising rapidly for the last 3 days upto 69/4.1mg/dl from admission Cr of 0.7mg/dl, renal consult is requested for management of CIPRIANO. Pt denies prior history of renal disease, no recent NSAIDs use or IV contrast exposure. Past History Past Medical History: diabetes Past Surgical History: No surgical history Social history: no significant social history Family history: hypertension (Mother has Hypertension) Medications and Allergies Allergies Allergy/AdvReac Type Severity Reaction Status Date / Time No Known Allergies Allergy Verified 09/12/18 00:37 Home Medications Medication Instructions Recorded Confirmed Last Taken Type glipiZIDE-Metformin 5-500 mg 500 mg PO BID 01/17/20 01/17/20 Unknown History Active Meds: Active Medications Acetaminophen (Tylenol) 650 mg PO Q4H PRN PRN Reason: Pain MILD(1-3)/Fever >100.5/COLLINS Last Admin: 01/29/20 06:34 Dose: 650 mg Documented by: Amlodipine Besylate (Amlodipine) 10 mg PO QDAY COBY Last Admin: 01/29/20 11:17 Dose: Not Given Documented by: Carvedilol (Coreg) 25 mg PO Q12HR [facility] Last Admin: 01/29/20 11:20 Dose: 25 mg Documented by: Dextrose (D50w (25gm) Syringe) 0 ml IV Q30MIN PRN; Protocol PRN Reason: Hypoglycemia Famotidine (Pepcid) 20 mg PO QDAY [facility] Last Admin: 01/29/20 11:20 Dose: 20 mg Documented by: Heparin Sodium (Porcine) (Heparin) 5,000 unit SUB-Q Q8HR [facility] Last Admin: 01/29/20 14:00 Dose: 5,000 unit Documented by: Hydralazine HCl (Apresoline) 10 mg IV Q6H PRN PRN Reason: Hypertension Last Admin: 01/22/20 18:43 Dose: 10 mg Documented by: Hydralazine HCl (Apresoline) 50 mg PO Q8HR [facility] Last Admin: 01/29/20 14:00 Dose: Not Given Documented by: Hydroxychloroquine Sulfate (Plaquenil) 200 mg PO BID [facility] Stop: 02/01/20 22:59 Last Admin: 01/29/20 11:21 Dose: 200 mg Documented by: Cefepime HCl (Cefepime/Ns 2 Gm/100 Ml) 2 gm in 100 mls @ 200 mls/hr IV Q24HR [facility]; Protocol Last Admin: 01/29/20 11:18 Dose: 200 mls/hr Documented by: Sodium Chloride (Nacl 0.9% 1000 Ml) 1,000 mls @ 75 mls/hr IV DIRECT [facility] Last Admin: 01/29/20 06:34 Dose: 75 mls/hr Documented by: Insulin Human Isoph/Insulin Regular (Humulin 70/30) 12 unit SUB-Q BIDDIAB [facility] Last Admin: 01/29/20 17:00 Dose: Not Given Documented by: Insulin Human Regular (Humulin R) 0 units SUB-Q ACHS [facility]; Protocol Last Admin: 01/29/20 16:30 Dose: Not Given Documented by: Magnesium Hydroxide (Milk Of Magnesia) 30 ml PO Q4H PRN PRN Reason: Constipation Morphine Sulfate (Morphine) 2 mg IV Q4H PRN PRN Reason: Pain, Moderate (4-6) Last Admin: 01/28/20 12:35 Dose: 2 mg Documented by: Nystatin (Nystop) 1 applic TP BID [facility] Last Admin: 01/29/20 18:07 Dose: Not Given Documented by: Ondansetron HCl (Zofran) 4 mg IV Q8H PRN PRN Reason: Nausea And Vomiting Sodium Chloride (Sodium Chloride Flush Syringe 10 Ml) 10 ml IV BID [facility] Last Admin: 01/29/20 11:20 Dose: 10 ml Documented by: Sodium Chloride (Sodium Chloride Flush Syringe 10 Ml) 10 ml IV PRN PRN PRN Reason: LINE FLUSH Zinc Sulfate (Zinc Sulfate) 220 mg PO DAILY@1200 [facility] Last Admin: 01/29/20 11:19 Dose: 220 mg Documented by: Review of Systems All systems: negative Constitutional: fever, chills, fatigue, weakness, malaise, poor appetite Exam - Vital Signs Vital signs: Vital Signs Temp Pulse Resp BP Pulse Ox 103.0 F H 145 H 20 169/103 98 01/17/20 18:27 01/17/20 18:27 01/17/20 18:27 01/17/20 18:27 01/17/20 18:27 - General Appearance General appearance: well-developed, well-nourished, appears stated age, obese EENT: ATNC, PERRL, mucous membranes moist Neck: Present: neck supple Respiratory: Decreased Breath Sounds Heart: regular, S1S2 Gastrointestinal: Present: normoactive bowel sounds, obese Integumentary: no rash, other (no edema ) Neurologic: no focal deficit, alert and oriented x3, strength 5/5, CN 3-12 intact Psychiatric: mood/affect appropriate, cooperative Results - Lab Results 01/29/20 07:29 01/29/20 07:29 Most recent lab results ABG pH 7.485 pH Units (7.350-7.450) H 01/24/20 12:50 ABG pCO2 30.2 mm Hg 01/24/20 12:50 ABG pO2 63.4 mm Hg (80.0-90.0) L 01/24/20 12:50 ABG HCO3 22.2 mmol/L (20.0-26.0) 01/24/20 12:50 ABG O2 Saturation 98.0 % (95.0-99.0) 01/24/20 12:50 Calcium 7.6 mg/dL (8.4-10.2) L 01/29/20 07:29 Magnesium 1.50 mg/dL (1.7-2.3) L 01/17/20 22:58 Laboratory Tests 01/26/20 01/26/20 01/26/20 05:40 05:40 05:40 D-Dimer 2624.11 H Ferritin 2758.0 H Lactate Dehydrogenase C-Reactive Protein 26.90 H Random Vancomycin 01/27/20 01/27/20 01/27/20 23:53 23:53 23:53 D-Dimer 2675.43 H Ferritin 3523.0 H Lactate Dehydrogenase 1132 H C-Reactive Protein 15.60 H Random Vancomycin 01/28/20 01/29/20 01/29/20 10:00 11:54 11:54 D-Dimer 1499 H Ferritin > 2000.0 H Lactate Dehydrogenase C-Reactive Protein Random Vancomycin 65.8 H 01/29/20 11:54 D-Dimer Ferritin Lactate Dehydrogenase 946 H C-Reactive Protein 13.30 H Random Vancomycin Assessment and Plan - Patient Problems (1) Acute kidney injury (CIPRIANO) with acute tubular necrosis (ATN) Current Visit: Yes Status: Acute Plan to address problem: Acute kidney injury most likely secondary to acute tubular necrosis in the setting of severe sepsis secondary to COVID pneumonia. Acute vancomycin toxicity to be considered as differential. Pt remains at high risk for cytokine storm and ARDS given severely elevated inflammatory parameters, if renal function declines further and patient develops oliguria will need to consider renal replacement therapy. BP remains boderline low, will d/c antihypertensives, cont IV NS at 125ml/hr, check repeat UA, urine lytes, urine P/C ratio. cont ABXs as per ID. Supportive care for ATN avoid nephrtoxins ( jassi. hold vanco and redose when trough is < 15) aviod IV contrast/NSAIDS. Will monitor lytes/renal parameters closely and make further recommendations. (2) Acidosis Current Visit: Yes Status: Acute Plan to address problem: start Na bicarb 1300mg po bid. if worsening met acidosis seen will cosider IV bicarb. Low threshold for renal replacement therapy if refractory met acidosis develops. (3) COVID-19 virus detected Current Visit: Yes Status: Acute Plan to address problem: management as per ID (4) Pneumonia Current Visit: Yes Status: Acute Plan to address problem: on empiric treatment with hydroxychloroquin/Azithromycin along with cefepime, dose renally adjusted. (5) Type 2 diabetes mellitus with hyperglycemia Current Visit: Yes Status: Acute Plan to address problem: DM mangement as per primary attending
[2020-01-29] MEDS: SODIUM BICARBONATE 650 MG TAB PO SCH (22:04)
[2020-01-30] MEDS: SODIUM CHLORIDE 0.9% 1000 ML 1,000 ML IV SCH (02:53)
[2020-01-30 06:06] LABS: Albumin 1.8 g/dL (3.9-5); Calcium 7.6 mg/dL (8.4-10.2)
[2020-01-30] MEDS: HEPARIN 5,000 UNIT/1 ML VIAL SUB-Q SCH ×3 (06:50→21:36)
[2020-01-30] MEDS: INSULIN REGULAR, HUMAN 100 UNITS/1 ML SUB-Q SCH ×4 (08:50→22:00)
[2020-01-30] MEDS: MORPHINE 2 MG/1 ML INJ IV PRN ×2 (08:51→20:39)
--- NOTE | 2020-01-30 09:21 | Progress Note ---
Assessment and Plan Assessment and plan: 29-year-old female with known history of diabetes mellitus presenting to the emergency room today complaining of pain on the right big toe. Patient had an injury to the right big toe about 2 to 3 weeks ago when an object fell on the toe. She has gone to an urgent care facility where she was given some antibiotics namely Bactrim to the right big toe wound. She has noticed that the wound has not improved and she has been having progressive pain. She denies any fever or chills, no nausea vomiting, no cough or shortness of breath, no chest pain. She denies any sick contacts and no recent travel. Work-up in the emergency room reveals hyperglycemia chest x-ray also reveals a left-sided pneumonia with accompanying sepsis. Patient started on empiric IV antibiotics. She is also given a tetanus vacc ination. Per the ED doctor the wound itself did not appear overtly superinfected. Although however the patient was tachycardic and febrile and as part of sepsis work-up as her labs indicated hyperglycemia with pseudohyponatremia, minimal anion gap acidosis, and a left-sided pulmonary infiltrate. Given the magnitude of her abnormal vital signs, concomitant diabetes, metabolic derangement, daily maciel meets criteria for hospitalization. We will treat her empirically for community-acquired pneumonia. She does not endorse any sick contacts or exposures to individuals with coronavirus. Nevertheless her test was sent and patient returned COVID positive. January 24 the patient results for COVID 19 came back positive. 01/28: In addition to treatment as noted below patient was noted to have indura cruz area in the left thigh, Concerning for abscess development. Will obtain CT of the lower extremity 01/29: Patient noted hypotensive. She is refusing her p.o. week to be placed she sustained a fall overnight while trying to walk to the bathroom. CT of the lower extremity still pending we will proceed with consult to surgeons. We will discontinue all blood pressure medications give a bolus of fluid while mindful of possible developing ARDS. We will also obtain repeated chest x-ray as patient appears more toxic today. COVID 19 induced pneumonia Multiple Organ Failure Severe Sepsis Diabetic foot wound nonhealing Acute on chronic respiratory failure with possible morbid obesity hypoventilation syndrome Acute kidney injury secondary to vasomotor nephropathy Metabolic Acidosis Hypokalemia Presumed thigh abscess. Hyponatremia Diabetes mellitus with uncontrolled blood sugar Morbid obesity Hypertension monitor closely for septic shock Malnutrition: Decreased p.o. intake Severe Protein calorie Plan -Continue current work-up as dictated by infectious disease doctors will include Plaquenil and zinc combination. -Very high inflammatory markers - ferritin 2758. Ferritin elevated, CRP/LDH improving. Risk for cytokine storm secondary to COVID and high risk for ARDS -Patient may need to be on BiPAP if respiratory status is not improving and she continues to get weaker. -Patient will likely need dialysis this has been discussed with family. -Patient started on vancomycin. While awaiting CT. -Continue isolation and droplet precautions. Continuous pulse oximetry and telemetry. -Obtain surgical consultation for thigh -Tight diabetic control -To the wound care -MRI of the right foot outpatient deferred due to COVID 19 treatment and nonemergent at this time -Replace electrolytes as needed -We will give a bolus of fluid while awaiting nephrology input -Obtain serial Ferritin, LDH, D-Dimer, CRP every 48h -Daily EKG - QT monitoring - stop plaqenil if QT interval >500 -Obtain IL-6 (sent out) to evaluate cytokine release syndrome due to COVID and consider IV tocilizumab (Actemra) (off-label use) -Weight loss recommendations on discharge The high probability of a clinically significant, sudden or life threatening deterioration of the [pulmonary, renal, ] system(s) required my full and direct attention, intervention and personal management. The aggregate critical care time was [35] minutes. This time is in addition to time spent performing reported procedures but includes the following: [x] Data Review and interpretation [x] Patient assessment and monitoring of vital signs [x] Documentation [x] Medication orders and management History Interval history: Patient seen and examined resting appears lethargic per nursing staff poor appetite. She unfortunately continues to decline. I did speak with the family today advised them of patient's status. They also spoke with office machinery or equipment installer about impending dialysis. Patient again refusing CT scan very agitated despite attempt to give sedative medication. While she understands the need for return she states that she is comfortable. Hospitalist Physical - Physical exam Narrative exam: VITAL SIGNS: Reviewed. GENERAL: The patient appears normally developed, lethargic, morbidly obese, Vital signs as documented. HEAD: No signs of head trauma. EYES: Pupils are equal. Extraocular motions intact. EARS: Hearing grossly intact. MOUTH: Oropharynx is normal. NECK: No adenopathy, no JVD. CHEST: Chest with diminished breath sounds bilaterally. No wheezes, rales, or rhonchi. CARDIAC: Regular rate and rhythm. S1 and S2, without murmurs, gallops, or rubs. VASCULAR: + Edema. Peripheral pulses normal and equal in all extremities. ABDOMEN: Soft, non tender and non distended. No rebound or guarding, and no masses palpated. Bowel Sounds normal. MUSCULOSKELETAL: Maceration in the left thigh with induration persist. Right hallux wound, left foot callus, Good range of motion of all major joints. Extremities without clubbing, cyanosis +edema. NEUROLOGIC EXAM: Alert and oriented x 3 No focal sensory or strength deficits. Speech normal. Follows commands. PSYCHIATRIC: Mood normal. SKIN: Right hallux wound, left foot callus, detail exam as documented in skin assessment - Constitutional Vitals: Temp Pulse Resp BP Pulse Ox 99.6 F 78 22 99/53 98 01/30/20 06:04 01/30/20 06:04 01/30/20 06:04 01/30/20 06:04 01/30/20 07:47 General appearance: Present: no acute distress Results - Labs CBC & Chem 7: 01/29/20 07:29 01/30/20 05:19 Labs: Laboratory Last Values WBC 17.0 K/mm3 (4.5-11.0) H 01/29/20 07:29 RBC 3.72 M/mm3 (3.65-5.03) 01/29/20 07:29 Hgb 9.6 gm/dl (10.1-14.3) L 01/29/20 07:29 Hct 29.5 % (30.3-42.9) L 01/29/20 07:29 MCV 79 fl (79-97) 01/29/20 07:29 MCH 26 pg (28-32) L 01/29/20 07:29 MCHC 32 % (30-34) 01/29/20 07:29 RDW 13.7 % (13.2-15.2) 01/29/20 07:29 Plt Count 187 K/mm3 (140-440) 01/29/20 07:29 Lymph % (Auto) 16.6 % (13.4-35.0) 01/18/20 08:30 Travis % (Auto) 2.8 % (0.0-7.3) 01/18/20 08:30 Eos % (Auto) 0.1 % (0.0-4.3) 01/18/20 08:30 Baso % (Auto) 0.4 % (0.0-1.8) 01/18/20 08:30 Lymph # 1.2 K/mm3 (1.2-5.4) 01/18/20 08:30 Travis # 0.2 K/mm3 (0.0-0.8) 01/18/20 08:30 Eos # 0.0 K/mm3 (0.0-0.4) 01/18/20 08:30 Baso # 0.0 K/mm3 (0.0-0.1) 01/18/20 08:30 Add Manual Diff Complete 01/26/20 05:40 Total Counted 100 01/26/20 05:40 Seg Neutrophils % Director Financial Planning 01/26/20 05:40 Seg Neuts % (Manual) 90.0 % (40.0-70.0) H 01/26/20 05:40 Band Neutrophils % 5.0 % 01/26/20 05:40 Lymphocytes % (Manual) 1.0 % (13.4-35.0) L 01/26/20 05:40 Reactive Lymphs % (Man) 0 % 01/26/20 05:40 Monocytes % (Manual) 2.0 % (0.0-7.3) 01/26/20 05:40 Eosinophils % (Manual) 2.0 % (0.0-4.3) 01/26/20 05:40 Basophils % (Manual) 0 % (0.0-1.8) 01/26/20 05:40 Metamyelocytes % 0 % 01/26/20 05:40 Myelocytes % 0 % 01/26/20 05:40 Promyelocytes % 0 % 01/26/20 05:40 Blast Cells % 0 % 01/26/20 05:40 Nucleated RBC % 1.0 % (0.0-0.9) H 01/26/20 05:40 Seg Neutrophils # 5.9 K/mm3 (1.8-7.7) 01/18/20 08:30 Seg Neutrophils # Man 14.8 K/mm3 (1.8-7.7) H 01/26/20 05:40 Band Neutrophils # 0.8 K/mm3 01/26/20 05:40 Lymphocytes # (Manual) 0.2 K/mm3 (1.2-5.4) L 01/26/20 05:40 Abs React Lymphs (Man) 0.0 K/mm3 01/26/20 05:40 Monocytes # (Manual) 0.3 K/mm3 (0.0-0.8) 01/26/20 05:40 Eosinophils # (Manual) 0.3 K/mm3 (0.0-0.4) 01/26/20 05:40 Basophils # (Manual) 0.0 K/mm3 (0.0-0.1) 01/26/20 05:40 Metamyelocytes # 0.0 K/mm3 01/26/20 05:40 Myelocytes # 0.0 K/mm3 01/26/20 05:40 Promyelocytes # 0.0 K/mm3 01/26/20 05:40 Blast Cells # 0.0 K/mm3 01/26/20 05:40 WBC Morphology Not Reportable 01/26/20 05:40 Hypersegmented Neuts Not Reportable 01/26/20 05:40 Hyposegmented Neuts Not Reportable 01/26/20 05:40 Hypogranular Neuts Not Reportable 01/26/20 05:40 Smudge Cells Not Reportable 01/26/20 05:40 Toxic Granulation Not Reportable 01/26/20 05:40 Toxic Vacuolation Not Reportable 01/26/20 05:40 Dohle Bodies Not Reportable 01/26/20 05:40 Pelger-Huet Anomaly Not Reportable 01/26/20 05:40 Barbie Rods Not Reportable 01/26/20 05:40 Platelet Estimate Consistent w auto 01/26/20 05:40 Clumped Platelets Not Reportable 01/26/20 05:40 Plt Clumps, EDTA Not Reportable 01/26/20 05:40 Large Platelets Not Reportable 01/26/20 05:40 Giant Platelets Not Reportable 01/26/20 05:40 Platelet Satelliting Not Reportable 01/26/20 05:40 Plt Morphology Comment Not Reportable 01/26/20 05:40 RBC Morphology Normal 01/26/20 05:40 Dimorphic RBCs Not Reportable 01/26/20 05:40 Polychromasia Not Reportable 01/26/20 05:40 Hypochromasia Not Reportable 01/26/20 05:40 Poikilocytosis Not Reportable 01/26/20 05:40 Anisocytosis Not Reportable 01/26/20 05:40 Microcytosis Not Reportable 01/26/20 05:40 Macrocytosis Not Reportable 01/26/20 05:40 Spherocytes Not Reportable 01/26/20 05:40 Pappenheimer Bodies Not Reportable 01/26/20 05:40 Sickle Cells Not Reportable 01/26/20 05:40 Target Cells Not Reportable 01/26/20 05:40 Tear Drop Cells Not Reportable 01/26/20 05:40 Ovalocytes Not Reportable 01/26/20 05:40 Helmet Cells Not Reportable 01/26/20 05:40 [place] Bodies Not Reportable 01/26/20 05:40 [place] Rings Not Reportable 01/26/20 05:40 [place] Cells Not Reportable 01/26/20 05:40 Bite Cells Not Reportable 01/26/20 05:40 Crenated Cell Not Reportable 01/26/20 05:40 Elliptocytes Not Reportable 01/26/20 05:40 Acanthocytes (Spur) Not Reportable 01/26/20 05:40 Rouleaux Not Reportable 01/26/20 05:40 Hemoglobin C Crystals Not Reportable 01/26/20 05:40 Schistocytes Not Reportable 01/26/20 05:40 Malaria parasites Not Reportable 01/26/20 05:40 ESR 70 mm/Hr (0-20) 01/17/20 22:58 Ras Bodies Not Reportable 01/26/20 05:40 Hem Pathologist Commnt No 01/26/20 05:40 PT 15.6 Sec. (12.2-14.9) H 01/17/20 18:28 INR 1.22 (0.87-1.13) H 01/17/20 18:28 D-Dimer 1499 ng/mlDDU (0-234) H 01/29/20 11:54 ABG pH 7.485 pH Units (7.350-7.450) H 01/24/20 12:50 ABG pCO2 30.2 mm Hg 01/24/20 12:50 ABG pO2 63.4 mm Hg (80.0-90.0) L 01/24/20 12:50 ABG HCO3 22.2 mmol/L (20.0-26.0) 01/24/20 12:50 ABG O2 Saturation 98.0 % (95.0-99.0) 01/24/20 12:50 ABG O2 Content 6.9 (0.0-44) 01/24/20 12:50 ABG Base Excess -1.2 mmol/L (-2.0-3.0) 01/24/20 12:50 ABG Hemoglobin 5.0 gm/dl (12.0-16.0) L 01/24/20 12:50 ABG Carboxyhemoglobin 1.2 % (0.0-5.0) 01/24/20 12:50 ABG Methemoglobin 0.6 % (0.0-1.5) 01/24/20 12:50 VBG pH 7.409 (7.320-7.420) 01/17/20 18:28 Oxyhemoglobin 96.2 % (95.0-99.0) 01/24/20 12:50 FiO2 80 % 01/24/20 12:50 Sodium 134 mmol/L (137-145) L 01/30/20 05:19 Potassium 3.6 mmol/L (3.6-5.0) 01/30/20 05:19 Chloride 99.6 mmol/L (98-107) 01/30/20 05:19 Carbon Dioxide 14 mmol/L (22-30) L 01/30/20 05:19 Anion Gap 24 mmol/L 01/30/20 05:19 BUN 87 mg/dL (7-17) H 01/30/20 05:19 Creatinine 4.4 mg/dL (0.7-1.2) H 01/30/20 05:19 Estimated GFR 14 ml/min 01/30/20 05:19 BUN/Creatinine Ratio 20 % 01/30/20 05:19 Glucose 172 mg/dL (65-100) H 01/30/20 05:19 POC Glucose 153 (70-105) H 01/30/20 08:04 Hemoglobin A1c 11.6 % (4-6) H 01/18/20 12:47 Lactic Acid 1.30 mmol/L (0.7-2.0) 01/18/20 08:30 Calcium 7.6 mg/dL (8.4-10.2) L 01/30/20 05:19 Magnesium 1.50 mg/dL (1.7-2.3) L 01/17/20 22:58 Ferritin > 2000.0 ng/mL (13.0-400.0) H 01/29/20 11:54 Total Bilirubin 0.40 mg/dL (0.1-1.2) 01/30/20 05:19 AST 152 units/L (5-40) H 01/30/20 05:19 ALT 124 units/L (7-56) H 01/30/20 05:19 Alkaline Phosphatase 121 units/L (35-129) 01/30/20 05:19 Lactate Dehydrogenase 946 units/L (91-180) H 01/29/20 11:54 Total Creatine Kinase 122 units/L (30-135) 01/17/20 22:58 C-Reactive Protein 13.30 mg/dL (0.00-1.30) H 01/29/20 11:54 Total Protein 5.5 g/dL (6.3-8.2) L 01/30/20 05:19 Albumin 1.8 g/dL (3.9-5) L 01/30/20 05:19 Albumin/Globulin Ratio 0.5 % 01/30/20 05:19 Procalcitonin 0.27 ng/mL (<0.15) 01/23/20 10:36 Urine Color Yellow (Yellow) 01/18/20 00:32 Urine Turbidity Slightly-cloudy (Clear) 01/18/20 00:32 Urine pH 5.0 (5.0-7.0) 01/18/20 00:32 Ur Specific [place] 1.011 (1.003-1.030) 01/18/20 00:32 Urine Protein 100 mg/dl mg/dL (Negative) 01/18/20 00:32 Urine Glucose (UA) >=500 mg/dL (Negative) 01/18/20 00:32 Urine Ketones Tr mg/dL (Negative) 01/18/20 00:32 Urine Blood Neg (Negative) 01/18/20 00:32 Urine Nitrite Neg (Negative) 01/18/20 00:32 Urine Bilirubin Neg (Negative) 01/18/20 00:32 Urine Urobilinogen < 2.0 mg/dL (<2.0) 01/18/20 00:32 Ur Leukocyte Esterase Neg (Negative) 01/18/20 00:32 Urine WBC (Auto) 2.0 /HPF (0.0-6.0) 01/18/20 00:32 Urine RBC (Auto) 4.0 /HPF (0.0-6.0) 01/18/20 00:32 U Epithel Cells (Auto) 2.0 /HPF (0-13.0) 01/18/20 00:32 Hyaline Casts 1 /LPF 01/18/20 00:32 Urine Mucus Few /HPF 01/18/20 00:32 Urine Yeast (Budding) Few /HPF 01/18/20 00:32 Vancomycin Trough 45.4 ug/mL (5.0-20.0) H 01/30/20 05:19 Random Vancomycin 65.8 ug/mL (0-40.0) H 01/28/20 10:00 Influenza A (Rapid) Negative (Negative) 01/19/20 01:10 Influenza B (Rapid) Negative (Negative) 01/19/20 01:10 AFB Identification 01/20/20 04:00 Miscellaneous Test See scanned result 01/18/20 Unknown Goldstein/IV: Voiding Method Incontinent IV Catheter Type [right ac] Peripheral IV IV Catheter Type [Right Peripheral IV Forearm] IV Catheter Type [Right Wrist] INT / Saline Lock IV Catheter Type [Right Hand] INT / Saline Lock IV Catheter Type [Right Upper INT / Saline Lock arm] IV Catheter Type [Left Hand] INT / Saline Lock Active Medications - Current Medications Current Medications: Generic Name Dose Route Start Last Admin Trade Name Freq PRN Reason Stop Dose Admin Acetaminophen 650 mg 01/17/20 23:06 01/29/20 22:43 Tylenol PO 650 mg Q4H PRN Administration Pain MILD(1-3)/Fever >100.5/COLLINS Dextrose 0 ml 01/17/20 23:06 D50w (25gm) Syringe IV Q30MIN PRN Hypoglycemia Protocol Famotidine 20 mg 01/24/20 10:00 01/29/20 11:20 Pepcid PO 20 mg QDAY COBY Administration Heparin Sodium (Porcine) 5,000 unit 01/18/20 06:00 01/30/20 06:50 Heparin SUB-Q 5,000 unit Q8HR COBY Administration Hydralazine HCl 10 mg 01/18/20 22:14 01/22/20 18:43 Apresoline IV 10 mg Q6H PRN Administration Hypertension Hydroxychloroquine Sulfate 200 mg 01/28/20 23:00 01/29/20 22:05 Plaquenil PO 02/01/20 22:59 200 mg BID COBY Administration Cefepime HCl 2 gm in 100 mls @ 200 mls/hr 01/29/20 10:00 01/29/20 11:18 Cefepime/Ns 2 Gm/100 Ml IV 200 mls/hr Q24HR COBY Administration Protocol Sodium Chloride 1,000 mls @ 125 mls/hr 01/28/20 17:30 01/30/20 02:53 Nacl 0.9% 1000 Ml IV 125 mls/hr DIRECT COBY Infusion Sodium Chloride 1,000 mls @ 999 mls/hr 01/30/20 09:16 Nacl 0.9% 1000 Ml IV 01/30/20 10:16 BOLUS ONE Insulin Human Isoph/Insulin Regular 12 unit 01/25/20 09:00 01/29/20 17:00 Humulin 70/30 SUB-Q Not Given [facility]AB [facility] Insulin Human Regular 0 units 01/19/20 11:30 01/30/20 08:50 Humulin R SUB-Q 2 units ACHS COBY Administration Protocol Magnesium Hydroxide 30 ml 01/17/20 23:06 Milk Of Magnesia PO Q4H PRN Constipation Morphine Sulfate 2 mg 01/17/20 23:06 01/30/20 08:51 Morphine IV 2 mg Q4H PRN Administration Pain, Moderate (4-6) Nystatin 1 applic 01/29/20 14:00 01/29/20 22:06 Nystop TP 1 applic BID COBY Administration Ondansetron HCl 4 mg 01/17/20 23:06 Zofran IV Q8H PRN Nausea And Vomiting Sodium Bicarbonate 1,300 mg 01/29/20 22:00 01/29/20 22:04 Sodium Bicarbonate PO 1,300 mg BID COBY Administration Sodium Chloride 10 ml 01/18/20 10:00 01/29/20 22:07 Sodium Chloride Flush Syringe 10 Ml IV 10 ml BID COBY Administration Sodium Chloride 10 ml 01/17/20 23:06 Sodium Chloride Flush Syringe 10 Ml IV PRN PRN LINE FLUSH Zinc Sulfate 220 mg 01/29/20 12:00 01/29/20 11:19 Zinc Sulfate PO 02/01/20 20:00 220 mg DAILY@1200 COBY Administration Nutrition/Malnutrition Assess - Dietary Evaluation Nutrition/Malnutrition Findings: Nutrition Notes Start: 01/18/20 13:13 Freq: Status: Active Protocol: Document 01/29/20 12:28 LM (Rec: 01/29/20 12:36 LM [id number]) Nutrition Notes Initial or Follow up Reassessment Current Diagnosis Diabetes,Sepsis Other Pertinent Diagnosis COVID-19 positive, LEV pnue, ( R) great toe wound Current Diet Consistent CHO Labs/Tests Na 133 BUN 69 Cr 4.1 BG 161 Pertinent Medications Humulin NaCl at 75ml/hr Height 6 ft Weight 141 kg [place] Body Weight (kg) 72.72 BMI 42.1 Weight Status Morbidly Obese Subjective/Other Information Pt was difficult to understand as pt not feeling well. Pt could not say how much of breakfast she ate. 0% intake of breakfast documented in chart. Spoke to pt about trying ONS to provide more nutrition for her and pt agreed. Will also add soup to prefeences. Burn Absent Trauma Absent Minimum of two criteria No physical signs of malnutrition #2 Nutrition Diagnosis Inadequate protein-energy intake Diagnosis Progress(for reassessment Continues documentation) #1 Nutrition Diagnosis Increased nutrient needs ( specify in comment below) Diagnosis Progress(for reassessment Continues documentation) Is patient on ventilator? No Is Patient Ambulatory and/or Out of Bed Yes REE-([facility]-ambulatory/OOB) [ 2914.600 [id number]] Kcal/Kg value to use for calculation 15 Approximate Energy Requirements Using 2115 kcal/Kg Calculation Used for Recommendations Kcal/kg Additional Notes Pro needs 1.25-1.5g/kg adjBW: 134-161g/day Fluid needs 1ml/kcal Nutrition Intervention Change Diet Order: Continue current diet order Add Supplement/Snack (indicate name/kcal Ensure Enlive BID /protein ) Provides kCal: 700 Provides Protein (gm) 40 Goal #1 PO intake of meals plus ONS to meet at least 75% of nutrient needs Goal #2 Wound healing Anticipated Discharge Needs: consistent CHO Follow-Up By: 01/31/20 Additional Comments F/U for PO/ONS intakes
[2020-01-30] MEDS ORDERED: SODIUM CHLORIDE 0.9% 1000 ML 1,000 ML IV ONE (09:30)
[2020-01-30] MEDS: SODIUM BICARBONATE 650 MG TAB PO SCH ×2 (10:32→21:36)
[2020-01-30] MEDS: FAMOTIDINE 20 MG TAB PO SCH (10:32)
[2020-01-30] MEDS: CEFEPIME/NS 2 GM/100 ML 2 GM/100 ML BAG IV SCH (10:33)
[2020-01-30] MEDS: HYDROXYCHLOROQUINE 200 MG TAB PO SCH ×2 (10:33→21:37)
[2020-01-30] MEDS: INSULIN NPH/REGULAR 70/30 INJ SUB-Q SCH ×2 (10:38→18:48)
[2020-01-30] MEDS: NYSTATIN POWDER 15 GM TP SCH ×2 (10:40→22:00)
--- NOTE | 2020-01-30 11:03 | Consultation ---
History of Present Illness Consult date: 01/30/20 Reason for consult: other (left thigh abscess) - History of present illness History of present illness: 29 year old diabetic female presented about 2 weeks ago with right great toe wound. Upon work up and evaluation she has been diagnosed with pneumonia and resulted COVID+. During this admission she has been found to have a left upper thigh swelling that may have underlying abscess. She has been having change in mentation as of late and uncooperative and agitated. She did not cooperate to allow a CT scan to be done. She is currently none verbal but occasionally follows simple commands. She does not offer any details into the history of this thigh wound. Past History Past Medical History: diabetes Past Surgical History: No surgical history Social history: no significant social history Family history: hypertension (Mother has Hypertension) Medications and Allergies Allergies Allergy/AdvReac Type Severity Reaction Status Date / Time No Known Allergies Allergy Verified 09/12/18 00:37 Home Medications Medication Instructions Recorded Confirmed Last Taken Type glipiZIDE-Metformin 5-500 mg 500 mg PO BID 01/17/20 01/17/20 Unknown History Active Meds: Active Medications Acetaminophen (Tylenol) 650 mg PO Q4H PRN PRN Reason: Pain MILD(1-3)/Fever >100.5/COLLINS Last Admin: 01/29/20 22:43 Dose: 650 mg Documented by: Dextrose (D50w (25gm) Syringe) 0 ml IV Q30MIN PRN; Protocol PRN Reason: Hypoglycemia Famotidine (Pepcid) 20 mg PO QDAY [facility] Last Admin: 01/30/20 10:32 Dose: 20 mg Documented by: Heparin Sodium (Porcine) (Heparin) 5,000 unit SUB-Q Q8HR [facility] Last Admin: 01/30/20 06:50 Dose: 5,000 unit Documented by: Hydralazine HCl (Apresoline) 10 mg IV Q6H PRN PRN Reason: Hypertension Last Admin: 01/22/20 18:43 Dose: 10 mg Documented by: Hydroxychloroquine Sulfate (Plaquenil) 200 mg PO BID [facility] Stop: 02/01/20 22:59 Last Admin: 01/30/20 10:33 Dose: 200 mg Documented by: Cefepime HCl (Cefepime/Ns 2 Gm/100 Ml) 2 gm in 100 mls @ 200 mls/hr IV Q24HR [facility]; Protocol Last Admin: 01/30/20 10:33 Dose: 200 mls/hr Documented by: Sodium Chloride (Nacl 0.9% 1000 Ml) 1,000 mls @ 125 mls/hr IV DIRECT [facility] Last Infusion: 01/30/20 02:53 Dose: 125 mls/hr Documented by: Insulin Human Isoph/Insulin Regular (Humulin 70/30) 12 unit SUB-Q BIDDIAB [facility] Last Admin: 01/30/20 10:38 Dose: 12 unit Documented by: Insulin Human Regular (Humulin R) 0 units SUB-Q ACHS [facility]; Protocol Last Admin: 01/30/20 08:50 Dose: 2 units Documented by: Magnesium Hydroxide (Milk Of Magnesia) 30 ml PO Q4H PRN PRN Reason: Constipation Morphine Sulfate (Morphine) 2 mg IV Q4H PRN PRN Reason: Pain, Moderate (4-6) Last Admin: 01/30/20 08:51 Dose: 2 mg Documented by: Nystatin (Nystop) 1 applic TP BID [facility] Last Admin: 01/30/20 10:40 Dose: 1 applic Documented by: Ondansetron HCl (Zofran) 4 mg IV Q8H PRN PRN Reason: Nausea And Vomiting Sodium Bicarbonate (Sodium Bicarbonate) 1,300 mg PO BID [facility] Last Admin: 01/30/20 10:32 Dose: 1,300 mg Documented by: Sodium Chloride (Sodium Chloride Flush Syringe 10 Ml) 10 ml IV BID [facility] Last Admin: 01/30/20 10:34 Dose: 10 ml Documented by: Sodium Chloride (Sodium Chloride Flush Syringe 10 Ml) 10 ml IV PRN PRN PRN Reason: LINE FLUSH Zinc Sulfate (Zinc Sulfate) 220 mg PO DAILY@1200 [facility] Stop: 02/01/20 20:00 Last Admin: 01/29/20 11:19 Dose: 220 mg Documented by: Review of Systems ROS unobtainable: due to mental status Exam Vital Signs Temp Pulse Resp BP Pulse Ox 103.0 F H 145 H 20 169/103 98 01/17/20 18:27 01/17/20 18:27 01/17/20 18:27 01/17/20 18:27 01/17/20 18:27 - General physical appearance Positive: moderate distress, obese - Respiratory Positive: normal expansion, normal respiratory effort - Cardiovascular Heart Sounds: Present: S1 & S2 - Abdomen Abdomen: Present: soft. Absent: tender - Integumentary other (suboptimal view as patient would not follow requests to allow full visualisation of left thigh. I was able to see a large flucutant desquamating wound on her left upper inner thigh. i could not appreciate any drainage or odor. ) Results - Labs 01/29/20 07:29 01/30/20 05:19 Abnormal lab results 01/29/20 01/29/20 01/29/20 Range/Units 08:20 11:54 11:54 D-Dimer 1499 H (0-234) ng/mlDDU Sodium (137-145) mmol/L Carbon Dioxide (22-30) mmol/L BUN (7-17) mg/dL Creatinine (0.7-1.2) mg/dL Glucose (65-100) mg/dL POC Glucose 170 H (70-105) Calcium (8.4-10.2) mg/dL Ferritin > 2000.0 H (13.0-400.0) ng/mL AST (5-40) units/L ALT (7-56) units/L Lactate Dehydrogenase (91-180) units/L C-Reactive Protein (0.00-1.30) mg/dL Total Protein (6.3-8.2) g/dL Albumin (3.9-5) g/dL Vancomycin Trough (5.0-20.0) ug/mL 01/29/20 01/29/20 01/29/20 Range/Units 11:54 12:55 16:19 D-Dimer (0-234) ng/mlDDU Sodium (137-145) mmol/L Carbon Dioxide (22-30) mmol/L BUN (7-17) mg/dL Creatinine (0.7-1.2) mg/dL Glucose (65-100) mg/dL POC Glucose 142 H 146 H (70-105) Calcium (8.4-10.2) mg/dL Ferritin (13.0-400.0) ng/mL AST (5-40) units/L ALT (7-56) units/L Lactate Dehydrogenase 946 H (91-180) units/L C-Reactive Protein 13.30 H (0.00-1.30) mg/dL Total Protein (6.3-8.2) g/dL Albumin (3.9-5) g/dL Vancomycin Trough (5.0-20.0) ug/mL 01/29/20 01/30/20 01/30/20 Range/Units 22:13 05:19 05:19 D-Dimer (0-234) ng/mlDDU Sodium 134 L (137-145) mmol/L Carbon Dioxide 14 L (22-30) mmol/L BUN 87 H (7-17) mg/dL Creatinine 4.4 H (0.7-1.2) mg/dL Glucose 172 H (65-100) mg/dL POC Glucose 142 H (70-105) Calcium 7.6 L (8.4-10.2) mg/dL Ferritin (13.0-400.0) ng/mL AST 152 H (5-40) units/L ALT 124 H (7-56) units/L Lactate Dehydrogenase (91-180) units/L C-Reactive Protein (0.00-1.30) mg/dL Total Protein 5.5 L (6.3-8.2) g/dL Albumin 1.8 L (3.9-5) g/dL Vancomycin Trough 45.4 H (5.0-20.0) ug/mL 01/30/20 Range/Units 08:04 D-Dimer (0-234) ng/mlDDU Sodium (137-145) mmol/L Carbon Dioxide (22-30) mmol/L BUN (7-17) mg/dL Creatinine (0.7-1.2) mg/dL Glucose (65-100) mg/dL POC Glucose 153 H (70-105) Calcium (8.4-10.2) mg/dL Ferritin (13.0-400.0) ng/mL AST (5-40) units/L ALT (7-56) units/L Lactate Dehydrogenase (91-180) units/L C-Reactive Protein (0.00-1.30) mg/dL Total Protein (6.3-8.2) g/dL Albumin (3.9-5) g/dL Vancomycin Trough (5.0-20.0) ug/mL Diabetes panel 01/30/20 Range/Units 05:19 Sodium 134 L (137-145) mmol/L Potassium 3.6 (3.6-5.0) mmol/L Chloride 99.6 (98-107) mmol/L Carbon Dioxide 14 L (22-30) mmol/L BUN 87 H (7-17) mg/dL Creatinine 4.4 H (0.7-1.2) mg/dL Glucose 172 H (65-100) mg/dL Calcium 7.6 L (8.4-10.2) mg/dL AST 152 H (5-40) units/L ALT 124 H (7-56) units/L Alkaline Phosphatase 121 (35-129) units/L Total Protein 5.5 L (6.3-8.2) g/dL Albumin 1.8 L (3.9-5) g/dL Calcium panel 01/30/20 Range/Units 05:19 Calcium 7.6 L (8.4-10.2) mg/dL Albumin 1.8 L (3.9-5) g/dL Pituitary panel 01/30/20 Range/Units 05:19 Sodium 134 L (137-145) mmol/L Potassium 3.6 (3.6-5.0) mmol/L Chloride 99.6 (98-107) mmol/L Carbon Dioxide 14 L (22-30) mmol/L BUN 87 H (7-17) mg/dL Creatinine 4.4 H (0.7-1.2) mg/dL Glucose 172 H (65-100) mg/dL Calcium 7.6 L (8.4-10.2) mg/dL Adrenal panel 01/30/20 Range/Units 05:19 Sodium 134 L (137-145) mmol/L Potassium 3.6 (3.6-5.0) mmol/L Chloride 99.6 (98-107) mmol/L Carbon Dioxide 14 L (22-30) mmol/L BUN 87 H (7-17) mg/dL Creatinine 4.4 H (0.7-1.2) mg/dL Glucose 172 H (65-100) mg/dL Calcium 7.6 L (8.4-10.2) mg/dL Total Bilirubin 0.40 (0.1-1.2) mg/dL AST 152 H (5-40) units/L ALT 124 H (7-56) units/L Alkaline Phosphatase 121 (35-129) units/L Total Protein 5.5 L (6.3-8.2) g/dL Albumin 1.8 L (3.9-5) g/dL Assessment and Plan Left thigh wound concerning for abscess. May be contributing to her septic picture. Since unable to get CT scan to better evaluate the area, will take to OR for examination under anesthesia and probable incision and drainage. i spoke with Dr. Medrano (anesthesia) about her COVID+ status so that the OR could properly prepare and make the appropriate plans to safely take care of the patient, and decrease risk of COVID exposure to staff and others in the area. i spoke with the patients and mother who will give telephone consent for the patient since she currently is showing altered mental status. She remains hemodynamically stable. will take to Or tomorrow. continue abx
--- NOTE | 2020-01-30 13:33 | Progress Note ---
Assessment and Plan - Patient Problems (1) Acute kidney injury (CIPRIANO) with acute tubular necrosis (ATN) Current Visit: Yes Status: Acute Plan to address problem: Acute kidney injury most likely secondary to acute tubular necrosis in the setting of severe sepsis secondary to COVID19 pneumonia. Acute vancomycin toxicity to be considered as differential. Pt remains at high risk for cytokine storm and ARDS given severely elevated inflammatory parametersno emergent indication for HD at present, however low threshold for HD, if renal function declines further and patient develops oliguria, worsening fluid overload, met acidosis. Discussed with patient's spouse regarding indication, risks and benefits of HD who understands and agrees with HD. BP remains boderline low, hold antihypertensives, cont IV NS boluses along with maintenance IV NS at 125ml/hr, to maintain MAP > 65mmhg. check repeat UA, urine lytes, urine P/C ratio. cont ABXs as per ID. Supportive care for ATN avoid nephrotoxins ( hold vanco and redose when trough is < 15) aviod IV contrast/NSAIDS. Will monitor lytes/renal parameters closely and make further recommendations. (2) Acidosis Current Visit: Yes Status: Acute Plan to address problem: start Na bicarb 1300mg po bid. if worsening met acidosis seen will cosider IV bicarb. Low threshold for renal replacement therapy if refractory met acidosis develops. (3) COVID-19 virus detected Current Visit: Yes Status: Acute Plan to address problem: management as per ID (4) Pneumonia Current Visit: Yes Status: Acute Plan to address problem: on empiric treatment with hydroxychloroquin/Azithromycin along with cefepime, dose renally adjusted. (5) Type 2 diabetes mellitus with hyperglycemia Current Visit: Yes Status: Acute Plan to address problem: DM mangement as per primary attending Subjective Date of service: 01/30/20 Principal diagnosis: Severe Sepsis; LEV PNA; DM II; Morbid obesity; R/O COVID-19 infection Interval history: patient is awake, however with waxing and waning mental status, following simple commands. Objective - Vital Signs Vital signs: Vital Signs - 12hr 01/30/20 01/30/20 01/30/20 04:43 06:04 07:47 Temperature 99.6 F Pulse Rate 95 H 78 Respiratory 22 22 Rate Blood Pressure 99/53 Blood Pressure 122/68 [Right] O2 Sat by Pulse 98 98 98 Oximetry - General Appearance General appearance: well-developed, appears stated age, moderate distress EENT: ATNC, PERRL, mucous membranes moist Neck: no JVD Respiratory: Present: Rales, Decreased Breath Sounds Cardiology: regular, S1S2 Gastrointestinal: normoactive bowel sounds, obese Integumentary: no rash, other (no edema ) Neurologic: no focal deficit, confused, disoriented - Lab 01/29/20 07:29 01/30/20 05:19 Most recent lab results ABG pH 7.485 pH Units (7.350-7.450) H 01/24/20 12:50 ABG pCO2 30.2 mm Hg 01/24/20 12:50 ABG pO2 63.4 mm Hg (80.0-90.0) L 01/24/20 12:50 ABG HCO3 22.2 mmol/L (20.0-26.0) 01/24/20 12:50 ABG O2 Saturation 98.0 % (95.0-99.0) 01/24/20 12:50 Calcium 7.6 mg/dL (8.4-10.2) L 01/30/20 05:19 Magnesium 1.50 mg/dL (1.7-2.3) L 01/17/20 22:58 Medications & Allergies - Medications Allergies/Adverse Reactions: Allergies No Known Allergies Allergy (Verified 09/12/18 00:37) Home Medications: Home Medications Medication Instructions Recorded Confirmed Last Taken Type glipiZIDE-Metformin 5-500 mg 500 mg PO BID 01/17/20 01/17/20 Unknown History Active Medications: Generic Name Dose Route Start Last Admin Trade Name Efrem PRN Reason Stop Dose Admin Acetaminophen 650 mg 01/17/20 23:06 01/29/20 22:43 Tylenol PO 650 mg Q4H PRN Administration Pain MILD(1-3)/Fever >100.5/COLLINS Dextrose 0 ml 01/17/20 23:06 D50w (25gm) Syringe IV Q30MIN PRN Hypoglycemia Protocol Famotidine 20 mg 01/24/20 10:00 01/30/20 10:32 Pepcid PO 20 mg QDAY [facility] Administration Heparin Sodium (Porcine) 5,000 unit 01/18/20 06:00 01/30/20 06:50 Heparin SUB-Q 5,000 unit Q8HR [facility] Administration Hydralazine HCl 10 mg 01/18/20 22:14 01/22/20 18:43 Apresoline IV 10 mg Q6H PRN Administration Hypertension Hydroxychloroquine Sulfate 200 mg 01/28/20 23:00 01/30/20 10:33 Plaquenil PO 02/01/20 22:59 200 mg BID [facility] Administration Cefepime HCl 2 gm in 100 mls @ 200 mls/hr 01/29/20 10:00 01/30/20 10:33 Cefepime/Ns 2 Gm/100 Ml IV 200 mls/hr Q24HR [facility] Administration Protocol Sodium Chloride 1,000 mls @ 125 mls/hr 01/28/20 17:30 01/30/20 02:53 Nacl 0.9% 1000 Ml IV 125 mls/hr DIRECT [facility] Infusion Insulin Human Isoph/Insulin Regular 12 unit 01/25/20 09:00 01/30/20 10:38 Humulin 70/30 SUB-Q 12 unit BIDDIAB [facility] Administration Insulin Human Regular 0 units 01/19/20 11:30 01/30/20 12:48 Humulin R SUB-Q Not Given ACHS [facility] Protocol Magnesium Hydroxide 30 ml 01/17/20 23:06 Milk Of Magnesia PO Q4H PRN Constipation Morphine Sulfate 2 mg 01/17/20 23:06 01/30/20 08:51 Morphine IV 2 mg Q4H PRN Administration Pain, Moderate (4-6) Nystatin 1 applic 01/29/20 14:00 01/30/20 10:40 Nystop TP 1 applic BID [facility] Administration Ondansetron HCl 4 mg 01/17/20 23:06 Zofran IV Q8H PRN Nausea And Vomiting Sodium Bicarbonate 1,300 mg 01/29/20 22:00 01/30/20 10:32 Sodium Bicarbonate PO 1,300 mg BID [facility] Administration Sodium Chloride 10 ml 01/18/20 10:00 01/30/20 10:34 Sodium Chloride Flush Syringe 10 Ml IV 10 ml BID [facility] Administration Sodium Chloride 10 ml 01/17/20 23:06 Sodium Chloride Flush Syringe 10 Ml IV PRN PRN LINE FLUSH Zinc Sulfate 220 mg 01/29/20 12:00 01/29/20 11:19 Zinc Sulfate PO 02/01/20 20:00 220 mg DAILY@1200 [facility] Administration
[2020-01-30] MEDS ORDERED: LORazepam 2 MG/ML VIAL IV ONE (13:51)
--- NOTE | 2020-01-30 14:15 | Progress Note ---
Assessment and Plan Severe Sepsis Left upper lobe pneumonia Diabetes II Morbid obesity Febrile illness (COVID-19 infection) Diabetic foot ulcer Hyponatremia Lactic acidosis - continue contact, droplet and airborne precautions - continue surgical evaluation re: ? abscess as source of fevers - tentatively discharge home once FiO2 requirements </= 32% and other issues resolved - continue to wean supplemental oxygen to keep O2 sats > 90% - prn CXR's - continue HFNC via vapotherm system - prn Bronchodilators (JURGEN) with pulm hygiene per RT - avoid nephrotoxins, renally dose all medications - prn analgesia per pain score - mobility protocols to prevent pressure ulcers - accuchecks with glycemic control per SSI for target blood glucose < 180 mg/dL - continued smoking abstinence strongly counseled at the bedside - home oxygen evaluation at discharge - GI & VTE prophylaxis - Flu & pneumovax per protocol - continue other care per attending / other consultants ... re-evaluate in am & prn Subjective Date of service: 01/30/20 Principal diagnosis: Severe Sepsis; LEV PNA; DM II; Morbid obesity; R/O COVID-19 infection Interval history: Patient is seen today for: Severe Sepsis; LEV pneumonia; Diabetes II; Morbid obesity; Febrile illness R/O COVID-19 infection; Diabetic foot ulcer; Hyponatremia; Lactic acidosis Seen and examined at bedside; 24hour events reviewed; nursing and respiratory care staff consulted; no adverse overnight events reported to me; resting peacefully in bed; surgery evaluation ongoing; remains on supplemental oxygen; refusing certain interventions / unable to tolerate Objective Vital Signs - 12hr 01/30/20 01/30/20 01/30/20 04:43 06:04 07:47 Temperature 99.6 F Pulse Rate 95 H 78 Respiratory 22 22 Rate Blood Pressure 99/53 Blood Pressure 122/68 [Right] O2 Sat by Pulse 98 98 98 Oximetry 01/30/20 12:14 Temperature 99.0 F Pulse Rate 77 Respiratory 24 Rate Blood Pressure 112/75 Blood Pressure [Right] O2 Sat by Pulse 96 Oximetry Constitutional: alert, other (young obese AAF, normocephalic with mildly increased resp effort at rest) Eyes: non-icteric ENT: oropharynx moist Neck: supple, no lymphadenopathy, no JVD Effort: mildly labored Ascultation: Bilateral: diminished breath sounds, rales (scant in bases) Percussion: Bilateral: not dull Cardiovascular: regular rate and rhythm Gastrointestinal: normoactive bowel sounds, soft, non-tender, non-distended Integumentary: normal Extremities: no cyanosis, no edema, pulses normal, no ischemia or petechiae Neurologic: normal mental status, non-focal exam, pupils equal and round, CN II- XII normal Psychiatric: mood appropriate, affect normal CBC and BMP: 01/31/20 03:49 01/31/20 03:49 ABG, PT/INR, D-dimer: ABG ABG pH 7.485 pH Units (7.350-7.450) H 01/24/20 12:50 ABG pCO2 30.2 mm Hg 01/24/20 12:50 ABG pO2 63.4 mm Hg (80.0-90.0) L 01/24/20 12:50 ABG O2 Saturation 98.0 % (95.0-99.0) 01/24/20 12:50 PT/INR, D-dimer PT 15.6 Sec. (12.2-14.9) H 01/17/20 18:28 INR 1.22 (0.87-1.13) H 01/17/20 18:28 D-Dimer 1499 ng/mlDDU (0-234) H 01/29/20 11:54 Abnormal lab findings: Abnormal Labs 01/17/20 01/17/20 01/17/20 18:28 18:28 18:28 WBC Hgb Hct MCH 26 L RDW Lymph % (Auto) 9.3 L Lymph # 1.0 L Seg Neutrophils % 86.7 H Seg Neuts % (Manual) Lymphocytes % (Manual) Nucleated RBC % Seg Neutrophils # 9.6 H Seg Neutrophils # Man Lymphocytes # (Manual) PT 15.6 H INR 1.22 H D-Dimer ABG pH ABG pO2 ABG Hemoglobin Sodium 126 L Potassium Chloride 89.3 L Carbon Dioxide 19 L BUN Creatinine Glucose 397 H POC Glucose Hemoglobin A1c Lactic Acid Calcium Magnesium Ferritin AST ALT Lactate Dehydrogenase C-Reactive Protein Total Protein 9.0 H Albumin Vancomycin Trough Random Vancomycin 01/17/20 01/17/20 01/17/20 18:28 22:58 22:58 WBC Hgb Hct MCH RDW Lymph % (Auto) Lymph # Seg Neutrophils % Seg Neuts % (Manual) Lymphocytes % (Manual) Nucleated RBC % Seg Neutrophils # Seg Neutrophils # Man Lymphocytes # (Manual) PT INR D-Dimer ABG pH ABG pO2 ABG Hemoglobin Sodium Potassium Chloride Carbon Dioxide BUN Creatinine Glucose POC Glucose Hemoglobin A1c Lactic Acid 3.40 H* 2.30 H* Calcium Magnesium 1.50 L Ferritin AST ALT Lactate Dehydrogenase C-Reactive Protein 16.60 H Total Protein Albumin Vancomycin Trough Random Vancomycin 01/18/20 01/18/20 01/18/20 00:46 06:34 08:30 WBC Hgb Hct MCH 26 L RDW 12.7 L Lymph % (Auto) Lymph # Seg Neutrophils % 80.1 H Seg Neuts % (Manual) Lymphocytes % (Manual) Nucleated RBC % Seg Neutrophils # Seg Neutrophils # Man Lymphocytes # (Manual) PT INR D-Dimer ABG pH ABG pO2 ABG Hemoglobin Sodium Potassium Chloride Carbon Dioxide BUN Creatinine Glucose POC Glucose 338 H 266 H Hemoglobin A1c Lactic Acid Calcium Magnesium Ferritin AST ALT Lactate Dehydrogenase C-Reactive Protein Total Protein Albumin Vancomycin Trough Random Vancomycin 01/18/20 01/18/20 01/18/20 08:30 08:35 12:30 WBC Hgb Hct MCH RDW Lymph % (Auto) Lymph # Seg Neutrophils % Seg Neuts % (Manual) Lymphocytes % (Manual) Nucleated RBC % Seg Neutrophils # Seg Neutrophils # Man Lymphocytes # (Manual) PT INR D-Dimer ABG pH ABG pO2 ABG Hemoglobin Sodium 135 L D Potassium Chloride Carbon Dioxide BUN Creatinine Glucose 250 H POC Glucose 224 H 213 H Hemoglobin A1c Lactic Acid Calcium Magnesium Ferritin AST ALT Lactate Dehydrogenase C-Reactive Protein Total Protein Albumin Vancomycin Trough Random Vancomycin 01/18/20 01/18/20 01/18/20 12:47 16:56 22:03 WBC Hgb Hct MCH RDW Lymph % (Auto) Lymph # Seg Neutrophils % Seg Neuts % (Manual) Lymphocytes % (Manual) Nucleated RBC % Seg Neutrophils # Seg Neutrophils # Man Lymphocytes # (Manual) PT INR D-Dimer ABG pH ABG pO2 ABG Hemoglobin Sodium Potassium Chloride Carbon Dioxide BUN Creatinine Glucose POC Glucose 270 H 239 H Hemoglobin A1c 11.6 H Lactic Acid Calcium Magnesium Ferritin AST ALT Lactate Dehydrogenase C-Reactive Protein Total Protein Albumin Vancomycin Trough Random Vancomycin 01/19/20 01/19/20 01/19/20 06:15 11:48 13:09 WBC Hgb Hct MCH 26 L RDW Lymph % (Auto) Lymph # Seg Neutrophils % Seg Neuts % (Manual) Lymphocytes % (Manual) Nucleated RBC % Seg Neutrophils # Seg Neutrophils # Man Lymphocytes # (Manual) PT INR D-Dimer ABG pH ABG pO2 ABG Hemoglobin Sodium Potassium Chloride Carbon Dioxide BUN Creatinine Glucose POC Glucose 248 H 268 H Hemoglobin A1c Lactic Acid Calcium Magnesium Ferritin AST ALT Lactate Dehydrogenase C-Reactive Protein Total Protein Albumin Vancomycin Trough Random Vancomycin 01/19/20 01/19/20 01/20/20 17:44 21:09 09:03 WBC Hgb Hct MCH RDW Lymph % (Auto) Lymph # Seg Neutrophils % Seg Neuts % (Manual) Lymphocytes % (Manual) Nucleated RBC % Seg Neutrophils # Seg Neutrophils # Man Lymphocytes # (Manual) PT INR D-Dimer ABG pH ABG pO2 ABG Hemoglobin Sodium Potassium Chloride Carbon Dioxide BUN Creatinine Glucose POC Glucose 214 H 261 H 241 H Hemoglobin A1c Lactic Acid Calcium Magnesium Ferritin AST ALT Lactate Dehydrogenase C-Reactive Protein Total Protein Albumin Vancomycin Trough Random Vancomycin 01/20/20 01/20/20 01/20/20 12:10 17:00 19:43 WBC Hgb Hct MCH RDW Lymph % (Auto) Lymph # Seg Neutrophils % Seg Neuts % (Manual) Lymphocytes % (Manual) Nucleated RBC % Seg Neutrophils # Seg Neutrophils # Man Lymphocytes # (Manual) PT INR D-Dimer ABG pH ABG pO2 ABG Hemoglobin Sodium Potassium Chloride Carbon Dioxide BUN Creatinine Glucose POC Glucose 284 H 272 H Hemoglobin A1c Lactic Acid Calcium Magnesium Ferritin AST ALT Lactate Dehydrogenase C-Reactive Protein Total Protein Albumin Vancomycin Trough 4.0 L Random Vancomycin 01/20/20 01/21/20 01/21/20 22:39 09:29 11:41 WBC Hgb Hct MCH 26 L RDW Lymph % (Auto) Lymph # Seg Neutrophils % Seg Neuts % (Manual) Lymphocytes % (Manual) Nucleated RBC % Seg Neutrophils # Seg Neutrophils # Man Lymphocytes # (Manual) PT INR D-Dimer ABG pH ABG pO2 ABG Hemoglobin Sodium Potassium Chloride Carbon Dioxide BUN Creatinine Glucose POC Glucose 248 H 238 H Hemoglobin A1c Lactic Acid Calcium Magnesium Ferritin AST ALT Lactate Dehydrogenase C-Reactive Protein Total Protein Albumin Vancomycin Trough Random Vancomycin 01/21/20 01/21/20 01/21/20 11:41 12:27 16:55 WBC Hgb Hct MCH RDW Lymph % (Auto) Lymph # Seg Neutrophils % Seg Neuts % (Manual) Lymphocytes % (Manual) Nucleated RBC % Seg Neutrophils # Seg Neutrophils # Man Lymphocytes # (Manual) PT INR D-Dimer ABG pH ABG pO2 ABG Hemoglobin Sodium 132 L Potassium 3.5 L Chloride 97.0 L Carbon Dioxide 19 L BUN Creatinine Glucose 274 H POC Glucose 264 H 261 H Hemoglobin A1c Lactic Acid Calcium Magnesium Ferritin AST ALT Lactate Dehydrogenase C-Reactive Protein Total Protein Albumin Vancomycin Trough Random Vancomycin 01/21/20 01/22/20 01/22/20 22:39 09:05 12:57 WBC Hgb Hct MCH RDW Lymph % (Auto) Lymph # Seg Neutrophils % Seg Neuts % (Manual) Lymphocytes % (Manual) Nucleated RBC % Seg Neutrophils # Seg Neutrophils # Man Lymphocytes # (Manual) PT INR D-Dimer ABG pH ABG pO2 ABG Hemoglobin Sodium Potassium Chloride Carbon Dioxide BUN Creatinine Glucose POC Glucose 243 H 258 H 252 H Hemoglobin A1c Lactic Acid Calcium Magnesium Ferritin AST ALT Lactate Dehydrogenase C-Reactive Protein Total Protein Albumin Vancomycin Trough Random Vancomycin 01/22/20 01/22/20 01/23/20 17:14 21:30 09:03 WBC Hgb Hct MCH RDW Lymph % (Auto) Lymph # Seg Neutrophils % Seg Neuts % (Manual) Lymphocytes % (Manual) Nucleated RBC % Seg Neutrophils # Seg Neutrophils # Man Lymphocytes # (Manual) PT INR D-Dimer ABG pH ABG pO2 ABG Hemoglobin Sodium Potassium Chloride Carbon Dioxide BUN Creatinine Glucose POC Glucose 306 H 217 H 156 H Hemoglobin A1c Lactic Acid Calcium Magnesium Ferritin AST ALT Lactate Dehydrogenase C-Reactive Protein Total Protein Albumin Vancomycin Trough Random Vancomycin 01/23/20 01/23/20 01/23/20 10:36 11:12 17:11 WBC Hgb Hct MCH RDW Lymph % (Auto) Lymph # Seg Neutrophils % Seg Neuts % (Manual) Lymphocytes % (Manual) Nucleated RBC % Seg Neutrophils # Seg Neutrophils # Man Lymphocytes # (Manual) PT INR D-Dimer ABG pH ABG pO2 ABG Hemoglobin Sodium Potassium 3.0 L Chloride Carbon Dioxide 21 L BUN Creatinine Glucose 266 H POC Glucose 244 H 238 H Hemoglobin A1c Lactic Acid Calcium 8.3 L Magnesium Ferritin AST ALT Lactate Dehydrogenase C-Reactive Protein Total Protein Albumin Vancomycin Trough Random Vancomycin 01/23/20 01/24/20 01/24/20 22:57 06:03 12:12 WBC Hgb Hct MCH RDW Lymph % (Auto) Lymph # Seg Neutrophils % Seg Neuts % (Manual) Lymphocytes % (Manual) Nucleated RBC % Seg Neutrophils # Seg Neutrophils # Man Lymphocytes # (Manual) PT INR D-Dimer ABG pH ABG pO2 ABG Hemoglobin Sodium Potassium 3.2 L Chloride Carbon Dioxide 19 L BUN Creatinine Glucose 231 H POC Glucose 228 H 210 H Hemoglobin A1c Lactic Acid Calcium 8.2 L Magnesium Ferritin AST ALT Lactate Dehydrogenase C-Reactive Protein Total Protein Albumin Vancomycin Trough Random Vancomycin 01/24/20 01/24/20 01/24/20 12:50 19:01 21:49 WBC Hgb Hct MCH RDW Lymph % (Auto) Lymph # Seg Neutrophils % Seg Neuts % (Manual) Lymphocytes % (Manual) Nucleated RBC % Seg Neutrophils # Seg Neutrophils # Man Lymphocytes # (Manual) PT INR D-Dimer ABG pH 7.485 H ABG pO2 63.4 L ABG Hemoglobin 5.0 L Sodium Potassium Chloride Carbon Dioxide BUN Creatinine Glucose POC Glucose 183 H 193 H Hemoglobin A1c Lactic Acid Calcium Magnesium Ferritin AST ALT Lactate Dehydrogenase C-Reactive Protein Total Protein Albumin Vancomycin Trough Random Vancomycin 01/25/20 01/25/20 01/25/20 09:13 16:58 22:23 WBC Hgb Hct MCH RDW Lymph % (Auto) Lymph # Seg Neutrophils % Seg Neuts % (Manual) Lymphocytes % (Manual) Nucleated RBC % Seg Neutrophils # Seg Neutrophils # Man Lymphocytes # (Manual) PT INR D-Dimer ABG pH ABG pO2 ABG Hemoglobin Sodium Potassium Chloride Carbon Dioxide BUN Creatinine Glucose POC Glucose 196 H 231 H 159 H Hemoglobin A1c Lactic Acid Calcium Magnesium Ferritin AST ALT Lactate Dehydrogenase C-Reactive Protein Total Protein Albumin Vancomycin Trough Random Vancomycin 01/26/20 01/26/20 01/26/20 05:40 05:40 05:40 WBC 16.4 H Hgb Hct MCH 26 L RDW 12.9 L Lymph % (Auto) Lymph # Seg Neutrophils % Seg Neuts % (Manual) 90.0 H Lymphocytes % (Manual) 1.0 L Nucleated RBC % 1.0 H Seg Neutrophils # Seg Neutrophils # Man 14.8 H Lymphocytes # (Manual) 0.2 L PT INR D-Dimer 2624.11 H ABG pH ABG pO2 ABG Hemoglobin Sodium 135 L Potassium 2.7 L* Chloride Carbon Dioxide 21 L BUN Creatinine Glucose 132 H POC Glucose Hemoglobin A1c Lactic Acid Calcium 8.0 L Magnesium Ferritin AST ALT Lactate Dehydrogenase C-Reactive Protein Total Protein Albumin Vancomycin Trough Random Vancomycin 01/26/20 01/26/20 01/26/20 05:40 05:40 08:58 WBC Hgb Hct MCH RDW Lymph % (Auto) Lymph # Seg Neutrophils % Seg Neuts % (Manual) Lymphocytes % (Manual) Nucleated RBC % Seg Neutrophils # Seg Neutrophils # Man Lymphocytes # (Manual) PT INR D-Dimer ABG pH ABG pO2 ABG Hemoglobin Sodium Potassium Chloride Carbon Dioxide BUN Creatinine Glucose POC Glucose 131 H Hemoglobin A1c Lactic Acid Calcium Magnesium Ferritin 2758.0 H AST ALT Lactate Dehydrogenase C-Reactive Protein 26.90 H Total Protein Albumin Vancomycin Trough Random Vancomycin 01/26/20 01/26/20 01/26/20 13:00 16:30 21:22 WBC Hgb Hct MCH RDW Lymph % (Auto) Lymph # Seg Neutrophils % Seg Neuts % (Manual) Lymphocytes % (Manual) Nucleated RBC % Seg Neutrophils # Seg Neutrophils # Man Lymphocytes # (Manual) PT INR D-Dimer ABG pH ABG pO2 ABG Hemoglobin Sodium Potassium Chloride Carbon Dioxide BUN Creatinine Glucose POC Glucose 136 H 146 H 139 H Hemoglobin A1c Lactic Acid Calcium Magnesium Ferritin AST ALT Lactate Dehydrogenase C-Reactive Protein Total Protein Albumin Vancomycin Trough Random Vancomycin 01/27/20 01/27/20 01/27/20 05:14 07:37 12:05 WBC Hgb Hct MCH RDW Lymph % (Auto) Lymph # Seg Neutrophils % Seg Neuts % (Manual) Lymphocytes % (Manual) Nucleated RBC % Seg Neutrophils # Seg Neutrophils # Man Lymphocytes # (Manual) PT INR D-Dimer ABG pH ABG pO2 ABG Hemoglobin Sodium 135 L Potassium 3.4 L D Chloride Carbon Dioxide 17 L BUN 24 H Creatinine 1.4 H D Glucose 143 H POC Glucose 133 H 141 H Hemoglobin A1c Lactic Acid Calcium 7.6 L Magnesium Ferritin AST ALT Lactate Dehydrogenase C-Reactive Protein Total Protein Albumin Vancomycin Trough Random Vancomycin 01/27/20 01/27/20 01/27/20 17:37 22:14 23:53 WBC Hgb Hct MCH RDW Lymph % (Auto) Lymph # Seg Neutrophils % Seg Neuts % (Manual) Lymphocytes % (Manual) Nucleated RBC % Seg Neutrophils # Seg Neutrophils # Man Lymphocytes # (Manual) PT INR D-Dimer 2675.43 H ABG pH ABG pO2 ABG Hemoglobin Sodium Potassium Chloride Carbon Dioxide BUN Creatinine Glucose POC Glucose 153 H 124 H Hemoglobin A1c Lactic Acid Calcium Magnesium Ferritin AST ALT Lactate Dehydrogenase C-Reactive Protein Total Protein Albumin Vancomycin Trough Random Vancomycin 01/27/20 01/27/20 01/28/20 23:53 23:53 08:36 WBC Hgb Hct MCH RDW Lymph % (Auto) Lymph # Seg Neutrophils % Seg Neuts % (Manual) Lymphocytes % (Manual) Nucleated RBC % Seg Neutrophils # Seg Neutrophils # Man Lymphocytes # (Manual) PT INR D-Dimer ABG pH ABG pO2 ABG Hemoglobin Sodium Potassium Chloride Carbon Dioxide BUN Creatinine Glucose POC Glucose 165 H Hemoglobin A1c Lactic Acid Calcium Magnesium Ferritin 3523.0 H AST ALT Lactate Dehydrogenase 1132 H C-Reactive Protein 15.60 H Total Protein Albumin Vancomycin Trough Random Vancomycin 01/28/20 01/28/20 01/28/20 10:00 10:00 12:42 WBC Hgb Hct MCH RDW Lymph % (Auto) Lymph # Seg Neutrophils % Seg Neuts % (Manual) Lymphocytes % (Manual) Nucleated RBC % Seg Neutrophils # Seg Neutrophils # Man Lymphocytes # (Manual) PT INR D-Dimer ABG pH ABG pO2 ABG Hemoglobin Sodium 131 L Potassium 3.5 L Chloride Carbon Dioxide 16 L BUN 51 H Creatinine 3.5 H D Glucose 180 H POC Glucose 188 H Hemoglobin A1c Lactic Acid Calcium 7.5 L Magnesium Ferritin AST ALT Lactate Dehydrogenase C-Reactive Protein Total Protein Albumin Vancomycin Trough Random Vancomycin 65.8 H 01/28/20 01/28/20 01/29/20 17:27 22:06 07:29 WBC 17.0 H Hgb 9.6 L Hct 29.5 L MCH 26 L RDW Lymph % (Auto) Lymph # Seg Neutrophils % Seg Neuts % (Manual) Lymphocytes % (Manual) Nucleated RBC % Seg Neutrophils # Seg Neutrophils # Man Lymphocytes # (Manual) PT INR D-Dimer ABG pH ABG pO2 ABG Hemoglobin Sodium Potassium Chloride Carbon Dioxide BUN Creatinine Glucose POC Glucose 161 H 158 H Hemoglobin A1c Lactic Acid Calcium Magnesium Ferritin AST ALT Lactate Dehydrogenase C-Reactive Protein Total Protein Albumin Vancomycin Trough Random Vancomycin 01/29/20 01/29/20 01/29/20 07:29 08:20 11:54 WBC Hgb Hct MCH RDW Lymph % (Auto) Lymph # Seg Neutrophils % Seg Neuts % (Manual) Lymphocytes % (Manual) Nucleated RBC % Seg Neutrophils # Seg Neutrophils # Man Lymphocytes # (Manual) PT INR D-Dimer ABG pH ABG pO2 ABG Hemoglobin Sodium 133 L Potassium Chloride Carbon Dioxide 15 L BUN 69 H Creatinine 4.1 H Glucose 161 H POC Glucose 170 H Hemoglobin A1c Lactic Acid Calcium 7.6 L Magnesium Ferritin > 2000.0 H AST ALT Lactate Dehydrogenase C-Reactive Protein Total Protein Albumin Vancomycin Trough Random Vancomycin 01/29/20 01/29/20 01/29/20 11:54 11:54 12:55 WBC Hgb Hct MCH RDW Lymph % (Auto) Lymph # Seg Neutrophils % Seg Neuts % (Manual) Lymphocytes % (Manual) Nucleated RBC % Seg Neutrophils # Seg Neutrophils # Man Lymphocytes # (Manual) PT INR D-Dimer 1499 H ABG pH ABG pO2 ABG Hemoglobin Sodium Potassium Chloride Carbon Dioxide BUN Creatinine Glucose POC Glucose 142 H Hemoglobin A1c Lactic Acid Calcium Magnesium Ferritin AST ALT Lactate Dehydrogenase 946 H C-Reactive Protein 13.30 H Total Protein Albumin Vancomycin Trough Random Vancomycin 01/29/20 01/29/20 01/30/20 16:19 22:13 05:19 WBC Hgb Hct MCH RDW Lymph % (Auto) Lymph # Seg Neutrophils % Seg Neuts % (Manual) Lymphocytes % (Manual) Nucleated RBC % Seg Neutrophils # Seg Neutrophils # Man Lymphocytes # (Manual) PT INR D-Dimer ABG pH ABG pO2 ABG Hemoglobin Sodium Potassium Chloride Carbon Dioxide BUN Creatinine Glucose POC Glucose 146 H 142 H Hemoglobin A1c Lactic Acid Calcium Magnesium Ferritin AST ALT Lactate Dehydrogenase C-Reactive Protein Total Protein Albumin Vancomycin Trough 45.4 H Random Vancomycin 01/30/20 01/30/20 01/30/20 05:19 08:04 12:21 WBC Hgb Hct MCH RDW Lymph % (Auto) Lymph # Seg Neutrophils % Seg Neuts % (Manual) Lymphocytes % (Manual) Nucleated RBC % Seg Neutrophils # Seg Neutrophils # Man Lymphocytes # (Manual) PT INR D-Dimer ABG pH ABG pO2 ABG Hemoglobin Sodium 134 L Potassium Chloride Carbon Dioxide 14 L BUN 87 H Creatinine 4.4 H Glucose 172 H POC Glucose 153 H 147 H Hemoglobin A1c Lactic Acid Calcium 7.6 L Magnesium Ferritin AST 152 H ALT 124 H Lactate Dehydrogenase C-Reactive Protein Total Protein 5.5 L Albumin 1.8 L Vancomycin Trough Random Vancomycin Allied health notes reviewed: nursing
[2020-01-30] MEDS: ZINC SULFATE 220 MG CAP PO SCH (14:16)
--- NOTE | 2020-01-30 14:57 | Event Note ---
Date: 01/30/20 Was consulted to see patient with questionable thigh abscess. She has been found to be COVID+ and had been scheduled to get a CT scan since yesterday to evaluate the area to determine if there is an abscess and if it needs to be surgically drained. I was to see and evaluate the patient after the CT was performed. Part of the delay in getting the CT completed was figuring out when to bring her down since the scanner would need to be down for two hours in order to disinfect it. I was urgently called to CT scan while the patient was in there because she was being extremely uncooperative and posing some danger to herself and the equipment maintenance technician staff. I went to talk to the patient who despite expressing understanding for the need for the exam, which would facilitate surgical evaluation she refused to be still to allow the scan to be completed. she was taking off her mask, coughing, swinging her arms around and refused to lie still on her back. It was decided the procedure could not be performed and she was taken back to her room. I spoke with Dr. Hernandes about her current state and cannot properly evaluate her at this time. Will attempt re-evaluation at another time. Recommending continue abx.
--- NOTE | 2020-01-30 15:46 | Progress Note ---
Assessment and Plan Cultures: Blood culture 01/17/2020 no growth to date Urine culture 01/17/2020 no growth to date Sputum normal resp dulce A/P: 29-year-old female past medical history diabetes admitted with acute sepsis secondary to right foot wound versus pneumonia. #Acute sepsis: fever resolved, now leukoctosis increasing. Secondary to her left tight abscess versus pneumonia. #Severe COVID-19 pneumonia: Coronavirus testing has returned positive. Very high inflammatory markers - ferritin 2758. Ferritin elevated, CRP/LDH improving. Risk for cytokine storm secondary to COVID and high risk for ARDS #Acute respiratory failure: improving, now on NC O2. Refusing plaquenil and other meds #Left thigh abscess: surgery on board #Right foot wound: Will need MRI when more stable to rule out osteomyelitis of the toe. Continue empiric vancomycin and cefepime for now. #Diabetes: tight glycemic control for best outcomes. #CIPRIANO: renally adjust abx #Morbid obesity Recs: surgery on board, I believe likely needs I+D restart vancomycin for left thigh abscess Continue cefepime 2 g every 8 hours Continuos pulse oximetry ContinueCOVID isolationprecautions per [facility] protocol Continue hydroxychloroquine 200 mg PO BID for 4 days (total 5 days) with zinc 220 mg PO qday Day 3 of 5 Obtain serial Ferritin, LDH, D-Dimer, CRP every 48h Daily EKG - QT monitoring - stop plaqenil if QT interval >500 Obtain IL-6 (sent out) to evaluate cytokine release syndrome due to COVID and consider IV tocilizumab (Actemra) (off-label use) Obtain MRI of the right foot -not urgent given present situation, can defer for now while treating for COVID-19. Thank you for the consult, we will continue to follow. Janett Duffy MD Infectious Diseases [facility] ([facility]) M [phone] O [phone] Subjective Date of service: 01/30/20 Principal diagnosis: Severe Sepsis; LEV PNA; DM II; Morbid obesity; R/O COVID-19 infection Interval history: Remains agitated refusing meds, on NC O2 3 L, no fever x 24h Objective - Exam Narrative Exam: Constitutional: Alert, cooperative on HFO2 Oral: limited due to lack opf PPE Cardiovascular: Respiratory: GI: Soft, obese Musculoskeletal: Right hallux wound, left foot callus. Left thigh large induration, skin sloughing Skin: Hem/Lymphatic: Psych: Mood ok. Affect normal Neurological: Awake, alert, oriented. No gross abnormality - Constitutional Vitals: Vital Signs Temp Pulse Resp BP Pulse Ox 99.0 F 77 24 112/75 98 01/30/20 12:14 01/30/20 12:14 01/30/20 12:14 01/30/20 12:14 01/30/20 14:25 Temperature -Last 24 Hours Temperature 99.0 F Temperature 99.6 F Temperature 97.4 F Temperature 97.7 F - Labs CBC & Chem 7: 01/29/20 07:29 01/30/20 05:19 Labs: Abnormal lab results 01/29/20 01/29/20 01/29/20 Range/Units 12:55 16:19 22:13 Sodium (137-145) mmol/L Carbon Dioxide (22-30) mmol/L BUN (7-17) mg/dL Creatinine (0.7-1.2) mg/dL Glucose (65-100) mg/dL POC Glucose 142 H 146 H 142 H (70-105) Calcium (8.4-10.2) mg/dL AST (5-40) units/L ALT (7-56) units/L Total Protein (6.3-8.2) g/dL Albumin (3.9-5) g/dL Vancomycin Trough (5.0-20.0) ug/mL 01/30/20 01/30/20 01/30/20 Range/Units 05:19 05:19 08:04 Sodium 134 L (137-145) mmol/L Carbon Dioxide 14 L (22-30) mmol/L BUN 87 H (7-17) mg/dL Creatinine 4.4 H (0.7-1.2) mg/dL Glucose 172 H (65-100) mg/dL POC Glucose 153 H (70-105) Calcium 7.6 L (8.4-10.2) mg/dL AST 152 H (5-40) units/L ALT 124 H (7-56) units/L Total Protein 5.5 L (6.3-8.2) g/dL Albumin 1.8 L (3.9-5) g/dL Vancomycin Trough 45.4 H (5.0-20.0) ug/mL 01/30/20 Range/Units 12:21 Sodium (137-145) mmol/L Carbon Dioxide (22-30) mmol/L BUN (7-17) mg/dL Creatinine (0.7-1.2) mg/dL Glucose (65-100) mg/dL POC Glucose 147 H (70-105) Calcium (8.4-10.2) mg/dL AST (5-40) units/L ALT (7-56) units/L Total Protein (6.3-8.2) g/dL Albumin (3.9-5) g/dL Vancomycin Trough (5.0-20.0) ug/mL
[2020-01-30] MEDS ORDERED: VANCOMYCIN/NS 1 GM/250 ML 1 GM/250 ML BAG IV SCH (16:00)
[2020-01-30] MEDS ORDERED: VANCOMYCIN PHARMACY TO DOSE IV SCH (17:00)
[2020-01-31 05:37] LABS: Hematocrit 31.7 % (30.3-42.9); Hemoglobin 10.1 gm/dl (10.1-14.3); Mean Corpuscular HGB Conc 32 % (30-34); Mean Corpuscular Volume 79 fl (79-97); Platelet Count 219 K/mm3 (140-440); Red Blood Count 3.99 M/mm3 (3.65-5.03); Red Cell Distribution Width 14.2 % (13.2-15.2)
[2020-01-31] MEDS: HEPARIN 5,000 UNIT/1 ML VIAL SUB-Q SCH ×3 (05:46→22:56)
[2020-01-31 05:57] LABS: Albumin 1.7 g/dL (3.9-5); Calcium 7.6 mg/dL (8.4-10.2)
[2020-01-31 06:02] LABS: C-Reactive Protein 11.1 mg/dL (0.00-1.30)
[2020-01-31] MEDS ORDERED: SODIUM CHLORIDE 0.9% 100 ML IV PRN (07:12)
[2020-01-31] MEDS: INSULIN NPH/REGULAR 70/30 INJ SUB-Q SCH ×2 (08:14→18:04)
[2020-01-31] MEDS ORDERED: VANCOMYCIN PHARMACY TO DOSE IV SCH (09:00)
[2020-01-31] MEDS ORDERED: [UNRECOGNIZED DRUG - REMARK] IV ONE (09:00)
[2020-01-31] MEDS ORDERED: HEPARIN/NS 5000 UNIT/500ML 500 ML IR ONE (09:08)
[2020-01-31] MEDS: INSULIN REGULAR, HUMAN 100 UNITS/1 ML SUB-Q SCH ×4 (09:14→22:56)
[2020-01-31] MEDS: fentaNYL 100 MCG/2 ML INJ ONE ×2 (09:33→09:50)
[2020-01-31] MEDS: MIDAZOLAM 2 MG/2 ML INJ ONE ×2 (09:33→09:45)
[2020-01-31] MEDS: SODIUM CHLORIDE 0.9% 250ML 250 ML ONE (09:34)
[2020-01-31] MEDS: LIDOCAINE 1%/EPINEPHRINE 1:100,000 VIAL (20 ML) INFILTRATI ONE ×2 (09:34→09:56)
[2020-01-31] MEDS: SODIUM CHLORIDE 0.9% 1000 ML 1,000 ML IV SCH ×2 (09:45→12:59)
[2020-01-31] MEDS: HEPARIN 10,000 UNITS/10 ML VIAL ONE ×2 (11:02→11:03)
[2020-01-31] MEDS: CEFEPIME/NS 2 GM/100 ML 2 GM/100 ML BAG IV SCH ×2 (11:07→12:58)
[2020-01-31] MEDS: FAMOTIDINE 20 MG TAB PO SCH (11:08)
[2020-01-31] MEDS: HYDROXYCHLOROQUINE 200 MG TAB PO SCH ×2 (11:08→22:57)
[2020-01-31] MEDS: SODIUM BICARBONATE 650 MG TAB PO SCH ×2 (11:08→22:56)
[2020-01-31] MEDS: NYSTATIN POWDER 15 GM TP SCH ×2 (11:08→22:56)
--- NOTE | 2020-01-31 11:11 | Operative Report ---
Operative Report Operative Report: Exam: Ultrasound-guided placement of Vas-Cath Clinical indication: Patient with Coban 19, acute renal failure with volume retention Date: 01/31/2020 Procedure: Following an explanation of the risks, benefits and alternatives; written informed consent was obtained from the patient's spouse as the patient has altered mental status. The patient was brought to the angiographic suite. Following the administration of 1 mg of Versed for anxiolysis, the patient was prepped and draped exposing the right groin. Initial ultrasound evaluation of the right groin demonstrated a patent right common femoral vein. 1% lidocaine was used for anesthesia. Under ultrasound guidance, the right common femoral vein was cannulated with a 7 cm 18-gauge needle. A 0.035 guidewire was advanced centrally. The needle was removed and following serial dilation over the guidewire, a 30 cm dialysis catheter with the pigtail was advanced over the guidewire centrally. The guidewire was removed. Nonpulsatile blood return from all 3 ports. The dialysis ports were flushed and locked with appropriate volumes of heparin. The pigtail was flushed with sterile saline. The catheter was securely fastened to the skin surface using 2-0 Ethilon suture and a sterile dressing applied. The patient tolerated the procedure well. There were no immediate postprocedure complications. Conscious sedation was not utilized secondary to patient's altered mental status. Continuous cardiopulmonary monitoring was utilized under the guidance of radiologic nursing. Impression: Ultrasound-guided placement of 30 cm Vas-Cath via the right common femoral vein with pigtail.
--- NOTE | 2020-01-31 13:59 | Progress Note ---
Assessment and Plan Assessment and plan: 29-year-old female with known history of diabetes mellitus presenting to the emergency room today complaining of pain on the right big toe. Patient had an injury to the right big toe about 2 to 3 weeks ago when an object fell on the toe. She has gone to an urgent care facility where she was given some antibiotics namely Bactrim to the right big toe wound. She has noticed that the wound has not improved and she has been having progressive pain. She denies any fever or chills, no nausea vomiting, no cough or shortness of breath, no chest pain. She denies any sick contacts and no recent travel. Work-up in the emergency room reveals hyperglycemia chest x-ray also reveals a left-sided pneumonia with accompanying sepsis. Patient started on empiric IV antibiotics. She is also given a tetanus vacc ination. Per the ED doctor the wound itself did not appear overtly superinfected. Although however the patient was tachycardic and febrile and as part of sepsis work-up as her labs indicated hyperglycemia with pseudohyponatremia, minimal anion gap acidosis, and a left-sided pulmonary infiltrate. Given the magnitude of her abnormal vital signs, concomitant diabetes, metabolic derangement, daily maciel meets criteria for hospitalization. We will treat her empirically for community-acquired pneumonia. She does not endorse any sick contacts or exposures to individuals with coronavirus. Nevertheless her test was sent and patient returned COVID positive. January 24 the patient results for COVID 19 came back positive. 01/28: In addition to treatment as noted below patient was noted to have indura cruz area in the left thigh, Concerning for abscess development. Will obtain CT of the lower extremity 01/29: Patient noted hypotensive. She is refusing her p.o. week to be placed she sustained a fall overnight while trying to walk to the bathroom. CT of the lower extremity still pending we will proceed with consult to surgeons. We will discontinue all blood pressure medications give a bolus of fluid while mindful of possible developing ARDS. We will also obtain repeated chest x-ray as patient appears more toxic today. COVID 19 induced pneumonia Multiple Organ Failure Severe Sepsis Diabetic foot wound nonhealing Acute on chronic respiratory failure with possible morbid obesity hypoventilation syndrome Acute kidney injury secondary to vasomotor nephropathy Metabolic Acidosis Hypokalemia Presumed thigh abscess. Hyponatremia Diabetes mellitus with uncontrolled blood sugar Morbid obesity Hypertension monitor closely for septic shock Malnutrition: Decreased p.o. intake Severe Protein calorie Plan -Continue current work-up as dictated by infectious disease doctors will include Plaquenil and zinc combination. -Patient to begin dialysis today right-sided common femoral catheter placed for dialysis. -Very high inflammatory markers - ferritin 2758. Ferritin elevated, CRP/LDH improving. Risk for cytokine storm secondary to COVID and high risk for ARDS -Patient may need to be on BiPAP if respiratory status is not improving and she continues to get weaker. -Patient will likely need dialysis this has been discussed with family. -Patient started on vancomycin. While awaiting CT. -Continue isolation and droplet precautions. Continuous pulse oximetry and telemetry. -Obtain surgical consultation for thigh -Tight diabetic control -To the wound care -MRI of the right foot outpatient deferred due to COVID 19 treatment and nonemergent at this time -Replace electrolytes as needed -We will give a bolus of fluid while awaiting nephrology input -Obtain serial Ferritin, LDH, D-Dimer, CRP every 48h -Daily EKG - QT monitoring - stop plaqenil if QT interval >500 -Obtain IL-6 (sent out) to evaluate cytokine release syndrome due to COVID and consider IV tocilizumab (Actemra) (off-label use) -Weight loss recommendations on discharge Family updated The high probability of a clinically significant, sudden or life threatening deterioration of the [pulmonary, renal, ] system(s) required my full and direct attention, intervention and personal management. The aggregate critical care time was [35] minutes. This time is in addition to time spent performing reported procedures but includes the following: [x] Data Review and interpretation [x] Patient assessment and monitoring of vital signs [x] Documentation [x] Medication orders and management History Interval history: Patient seen and examined still lethargic, obtain Dialysis Catheter today and is expected to start on this consider temporary dialysis today. Also she will be going for I&D of the thigh abscess today. Hospitalist Physical - Physical exam Narrative exam: VITAL SIGNS: Reviewed. GENERAL: The patient appears normally developed, lethargic, morbidly obese, Vital signs as documented. HEAD: No signs of head trauma. EYES: Pupils are equal. Extraocular motions intact. EARS: Hearing grossly intact. MOUTH: Oropharynx is normal. NECK: No adenopathy, no JVD. CHEST: Chest with diminished breath sounds bilaterally. No wheezes, rales, or rhonchi. CARDIAC: Regular rate and rhythm. S1 and S2, without murmurs, gallops, or rubs. VASCULAR: + Edema. Peripheral pulses normal and equal in all extremities. ABDOMEN: Soft, non tender and non distended. No rebound or guarding, and no masses palpated. Bowel Sounds normal. MUSCULOSKELETAL: Maceration in the left thigh with induration persist. Right hallux wound, left foot callus, Good range of motion of all major joints. E xtremities without clubbing, cyanosis +edema. NEUROLOGIC EXAM: Lethargic but awake and oriented x 3 No focal sensory or strength deficits. Speech normal. Follows commands. PSYCHIATRIC: Mood normal. SKIN: Right hallux wound, left foot callus, detail exam as documented in skin assessment - Constitutional Vitals: Temp Pulse Resp BP Pulse Ox 97.4 F L 80 18 101/59 99 01/31/20 05:05 01/31/20 05:05 01/31/20 05:05 01/31/20 05:05 01/31/20 10:14 General appearance: Present: no acute distress Results - Labs CBC & Chem 7: 01/31/20 03:49 01/31/20 03:49 Labs: Laboratory Last Values WBC 16.1 K/mm3 (4.5-11.0) H 01/31/20 03:49 RBC 3.99 M/mm3 (3.65-5.03) 01/31/20 03:49 Hgb 10.1 gm/dl (10.1-14.3) 01/31/20 03:49 Hct 31.7 % (30.3-42.9) 01/31/20 03:49 MCV 79 fl (79-97) 01/31/20 03:49 MCH 25 pg (28-32) L 01/31/20 03:49 MCHC 32 % (30-34) 01/31/20 03:49 RDW 14.2 % (13.2-15.2) 01/31/20 03:49 Plt Count 219 K/mm3 (140-440) 01/31/20 03:49 Lymph % (Auto) 16.6 % (13.4-35.0) 01/18/20 08:30 [place] % (Auto) 2.8 % (0.0-7.3) 01/18/20 08:30 Eos % (Auto) 0.1 % (0.0-4.3) 01/18/20 08:30 Baso % (Auto) 0.4 % (0.0-1.8) 01/18/20 08:30 Lymph # 1.2 K/mm3 (1.2-5.4) 01/18/20 08:30 [place] # 0.2 K/mm3 (0.0-0.8) 01/18/20 08:30 Eos # 0.0 K/mm3 (0.0-0.4) 01/18/20 08:30 Baso # 0.0 K/mm3 (0.0-0.1) 01/18/20 08:30 Add Manual Diff Complete 01/26/20 05:40 Total Counted 100 01/26/20 05:40 Seg Neutrophils % [place] [employer] 01/26/20 05:40 Seg Neuts % (Manual) 90.0 % (40.0-70.0) H 01/26/20 05:40 Band Neutrophils % 5.0 % 01/26/20 05:40 Lymphocytes % (Manual) 1.0 % (13.4-35.0) L 01/26/20 05:40 Reactive Lymphs % (Man) 0 % 01/26/20 05:40 Monocytes % (Manual) 2.0 % (0.0-7.3) 01/26/20 05:40 Eosinophils % (Manual) 2.0 % (0.0-4.3) 01/26/20 05:40 Basophils % (Manual) 0 % (0.0-1.8) 01/26/20 05:40 Metamyelocytes % 0 % 01/26/20 05:40 Myelocytes % 0 % 01/26/20 05:40 Promyelocytes % 0 % 01/26/20 05:40 Blast Cells % 0 % 01/26/20 05:40 Nucleated RBC % 1.0 % (0.0-0.9) H 01/26/20 05:40 Seg Neutrophils # 5.9 K/mm3 (1.8-7.7) 01/18/20 08:30 Seg Neutrophils # Man 14.8 K/mm3 (1.8-7.7) H 01/26/20 05:40 Band Neutrophils # 0.8 K/mm3 01/26/20 05:40 Lymphocytes # (Manual) 0.2 K/mm3 (1.2-5.4) L 01/26/20 05:40 Abs React Lymphs (Man) 0.0 K/mm3 01/26/20 05:40 Monocytes # (Manual) 0.3 K/mm3 (0.0-0.8) 01/26/20 05:40 Eosinophils # (Manual) 0.3 K/mm3 (0.0-0.4) 01/26/20 05:40 Basophils # (Manual) 0.0 K/mm3 (0.0-0.1) 01/26/20 05:40 Metamyelocytes # 0.0 K/mm3 01/26/20 05:40 Myelocytes # 0.0 K/mm3 01/26/20 05:40 Promyelocytes # 0.0 K/mm3 01/26/20 05:40 Blast Cells # 0.0 K/mm3 01/26/20 05:40 WBC Morphology Not Reportable 01/26/20 05:40 Hypersegmented Neuts Not Reportable 01/26/20 05:40 Hyposegmented Neuts Not Reportable 01/26/20 05:40 Hypogranular Neuts Not Reportable 01/26/20 05:40 Smudge Cells Not Reportable 01/26/20 05:40 Toxic Granulation Not Reportable 01/26/20 05:40 Toxic Vacuolation Not Reportable 01/26/20 05:40 Dohle Bodies Not Reportable 01/26/20 05:40 Pelger-Huet Anomaly Not Reportable 01/26/20 05:40 Barbie Rods Not Reportable 01/26/20 05:40 Platelet Estimate Consistent w auto 01/26/20 05:40 Clumped Platelets Not Reportable 01/26/20 05:40 Plt Clumps, EDTA Not Reportable 01/26/20 05:40 Large Platelets Not Reportable 01/26/20 05:40 Giant Platelets Not Reportable 01/26/20 05:40 Platelet Satelliting Not Reportable 01/26/20 05:40 Plt Morphology Comment Not Reportable 01/26/20 05:40 RBC Morphology Normal 01/26/20 05:40 Dimorphic RBCs Not Reportable 01/26/20 05:40 Polychromasia Not Reportable 01/26/20 05:40 Hypochromasia Not Reportable 01/26/20 05:40 Poikilocytosis Not Reportable 01/26/20 05:40 Anisocytosis Not Reportable 01/26/20 05:40 Microcytosis Not Reportable 01/26/20 05:40 Macrocytosis Not Reportable 01/26/20 05:40 Spherocytes Not Reportable 01/26/20 05:40 Pappenheimer Bodies Not Reportable 01/26/20 05:40 Sickle Cells Not Reportable 01/26/20 05:40 Target Cells Not Reportable 01/26/20 05:40 Tear Drop Cells Not Reportable 01/26/20 05:40 Ovalocytes Not Reportable 01/26/20 05:40 Helmet Cells Not Reportable 01/26/20 05:40 [place]urst Bodies Not Reportable 01/26/20 05:40 Boomer Rings Not Reportable 01/26/20 05:40 [place] Cells Not Reportable 01/26/20 05:40 Bite Cells Not Reportable 01/26/20 05:40 Crenated Cell Not Reportable 01/26/20 05:40 Elliptocytes Not Reportable 01/26/20 05:40 Acanthocytes (Spur) Not Reportable 01/26/20 05:40 Rouleaux Not Reportable 01/26/20 05:40 Hemoglobin C Crystals Not Reportable 01/26/20 05:40 Schistocytes Not Reportable 01/26/20 05:40 Malaria parasites Not Reportable 01/26/20 05:40 ESR 70 mm/Hr (0-20) 01/17/20 22:58 Ras Bodies Not Reportable 01/26/20 05:40 Hem Pathologist Commnt No 01/26/20 05:40 PT 15.6 Sec. (12.2-14.9) H 01/17/20 18:28 INR 1.22 (0.87-1.13) H 01/17/20 18:28 D-Dimer 801.37 ng/mlDDU (0-234) H 01/31/20 03:49 ABG pH 7.485 pH Units (7.350-7.450) H 01/24/20 12:50 ABG pCO2 30.2 mm Hg 01/24/20 12:50 ABG pO2 63.4 mm Hg (80.0-90.0) L 01/24/20 12:50 ABG HCO3 22.2 mmol/L (20.0-26.0) 01/24/20 12:50 ABG O2 Saturation 98.0 % (95.0-99.0) 01/24/20 12:50 ABG O2 Content 6.9 (0.0-44) 01/24/20 12:50 ABG Base Excess -1.2 mmol/L (-2.0-3.0) 01/24/20 12:50 ABG Hemoglobin 5.0 gm/dl (12.0-16.0) L 01/24/20 12:50 ABG Carboxyhemoglobin 1.2 % (0.0-5.0) 01/24/20 12:50 ABG Methemoglobin 0.6 % (0.0-1.5) 01/24/20 12:50 VBG pH 7.409 (7.320-7.420) 01/17/20 18:28 Oxyhemoglobin 96.2 % (95.0-99.0) 01/24/20 12:50 FiO2 80 % 01/24/20 12:50 Sodium 134 mmol/L (137-145) L 01/31/20 03:49 Potassium 3.9 mmol/L (3.6-5.0) 01/31/20 03:49 Chloride 106.0 mmol/L (98-107) 01/31/20 03:49 Carbon Dioxide 13 mmol/L (22-30) L 01/31/20 03:49 Anion Gap 19 mmol/L 01/31/20 03:49 BUN 97 mg/dL (7-17) H 01/31/20 03:49 Creatinine 4.8 mg/dL (0.7-1.2) H 01/31/20 03:49 Estimated GFR 13 ml/min 01/31/20 03:49 BUN/Creatinine Ratio 20 % 01/31/20 03:49 Glucose 123 mg/dL (65-100) H 01/31/20 03:49 POC Glucose 136 (70-105) H 01/31/20 11:48 Hemoglobin A1c 11.6 % (4-6) H 01/18/20 12:47 Lactic Acid 1.30 mmol/L (0.7-2.0) 01/18/20 08:30 Calcium 7.6 mg/dL (8.4-10.2) L 01/31/20 03:49 Magnesium 1.50 mg/dL (1.7-2.3) L 01/17/20 22:58 Ferritin 3101.0 ng/mL (13.0-400.0) H 01/31/20 03:49 Total Bilirubin 0.50 mg/dL (0.1-1.2) 01/31/20 03:49 AST 112 units/L (5-40) H 01/31/20 03:49 ALT 112 units/L (7-56) H 01/31/20 03:49 Alkaline Phosphatase 145 units/L (35-129) H 01/31/20 03:49 Lactate Dehydrogenase 896 units/L (91-180) H 01/31/20 03:49 Total Creatine Kinase 122 units/L (30-135) 01/17/20 22:58 C-Reactive Protein 11.10 mg/dL (0.00-1.30) H 01/31/20 03:49 Total Protein 5.5 g/dL (6.3-8.2) L 01/31/20 03:49 Albumin 1.7 g/dL (3.9-5) L 01/31/20 03:49 Albumin/Globulin Ratio 0.4 % 01/31/20 03:49 Procalcitonin 0.27 ng/mL (<0.15) 01/23/20 10:36 HCG, Qual Negative (Negative) 01/31/20 03:49 Urine Color Yellow (Yellow) 01/18/20 00:32 Urine Turbidity Slightly-cloudy (Clear) 01/18/20 00:32 Urine pH 5.0 (5.0-7.0) 01/18/20 00:32 Ur Specific [place] 1.011 (1.003-1.030) 01/18/20 00:32 Urine Protein 100 mg/dl mg/dL (Negative) 01/18/20 00:32 Urine Glucose (UA) >=500 mg/dL (Negative) 01/18/20 00:32 Urine Ketones Tr mg/dL (Negative) 01/18/20 00:32 Urine Blood Neg (Negative) 01/18/20 00:32 Urine Nitrite Neg (Negative) 01/18/20 00:32 Urine Bilirubin Neg (Negative) 01/18/20 00:32 Urine Urobilinogen < 2.0 mg/dL (<2.0) 01/18/20 00:32 Ur Leukocyte Esterase Neg (Negative) 01/18/20 00:32 Urine WBC (Auto) 2.0 /HPF (0.0-6.0) 01/18/20 00:32 Urine RBC (Auto) 4.0 /HPF (0.0-6.0) 01/18/20 00:32 U Epithel Cells (Auto) 2.0 /HPF (0-13.0) 01/18/20 00:32 Hyaline Casts 1 /LPF 01/18/20 00:32 Urine Mucus Few /HPF 01/18/20 00:32 Urine Yeast (Budding) Few /HPF 01/18/20 00:32 Vancomycin Trough 45.4 ug/mL (5.0-20.0) H 01/30/20 05:19 Random Vancomycin 65.8 ug/mL (0-40.0) H 01/28/20 10:00 Influenza A (Rapid) Negative (Negative) 01/19/20 01:10 Influenza B (Rapid) Negative (Negative) 01/19/20 01:10 AFB Identification 01/20/20 04:00 Miscellaneous Test See scanned result 01/18/20 Unknown [place]/IV: Voiding Method Incontinent IV Catheter Type [right ac] Peripheral IV IV Catheter Type [Right Peripheral IV Forearm] IV Catheter Type [Right Wrist] INT / Saline Lock IV Catheter Type [Right Hand] INT / Saline Lock IV Catheter Type [Right Upper INT / Saline Lock arm] IV Catheter Type [Left Hand] INT / Saline Lock Active Medications - Current Medications Current Medications: Generic Name Dose Route Start Last Admin Trade Name Freq PRN Reason Stop Dose Admin Acetaminophen 650 mg 01/17/20 23:06 01/29/20 22:43 Tylenol PO 650 mg Q4H PRN Administration Pain MILD(1-3)/Fever >100.5/COLLINS Dextrose 0 ml 01/17/20 23:06 D50w (25gm) Syringe IV Q30MIN PRN Hypoglycemia Protocol Famotidine 20 mg 01/24/20 10:00 01/31/20 11:08 Pepcid PO Not Given QDAY COBY Heparin Sodium (Porcine) 5,000 unit 01/18/20 06:00 01/31/20 05:46 Heparin SUB-Q 5,000 unit Q8HR COBY Administration Hydralazine HCl 10 mg 01/18/20 22:14 01/22/20 18:43 Apresoline IV 10 mg Q6H PRN Administration Hypertension Hydroxychloroquine Sulfate 200 mg 01/28/20 23:00 01/31/20 11:08 Plaquenil PO 02/01/20 22:59 Not Given BID COBY Cefepime HCl 2 gm in 100 mls @ 200 mls/hr 01/29/20 10:00 01/31/20 12:58 Cefepime/Ns 2 Gm/100 Ml IV 200 mls/hr Q24HR COBY Administration Protocol Sodium Chloride 1,000 mls @ 125 mls/hr 01/28/20 17:30 01/31/20 12:59 Nacl 0.9% 1000 Ml IV 125 mls/hr DIRECT COBY Administration Sodium Chloride 100 mls @ 999 mls/hr 01/31/20 07:12 Nacl 0.9% IV KIRSTEN PRN Hypotension Insulin Human Isoph/Insulin Regular 12 unit 01/25/20 09:00 01/31/20 08:14 Humulin 70/30 SUB-Q Not Given BIDDIAB COBY Insulin Human Regular 0 units 01/19/20 11:30 01/31/20 09:14 Humulin R SUB-Q Not Given ACHS [facility] Protocol Magnesium Hydroxide 30 ml 01/17/20 23:06 Milk Of Magnesia PO Q4H PRN Constipation Morphine Sulfate 2 mg 01/17/20 23:06 01/30/20 20:39 Morphine IV 2 mg Q4H PRN Administration Pain, Moderate (4-6) Nystatin 1 applic 01/29/20 14:00 01/31/20 11:08 Nystop TP Not Given BID [facility] Ondansetron HCl 4 mg 01/17/20 23:06 01/30/20 20:47 Zofran IV 4 mg Q8H PRN Administration Nausea And Vomiting Sodium Bicarbonate 1,300 mg 01/29/20 22:00 01/31/20 11:08 Sodium Bicarbonate PO Not Given BID COBY Sodium Chloride 10 ml 01/18/20 10:00 01/31/20 11:08 Sodium Chloride Flush Syringe 10 Ml IV Not Given BID COBY Sodium Chloride 10 ml 01/17/20 23:06 Sodium Chloride Flush Syringe 10 Ml IV PRN PRN LINE FLUSH Zinc Sulfate 220 mg 01/29/20 12:00 01/30/20 14:16 Zinc Sulfate PO 02/01/20 20:00 Not Given DAILY@1200 [facility] Nutrition/Malnutrition Assess - Dietary Evaluation Nutrition/Malnutrition Findings: Nutrition Notes Start: 01/18/20 13:13 Freq: Status: Active Protocol: Document 01/31/20 13:40 LM (Rec: 01/31/20 13:48 LM [id number]) Nutrition Notes Initial or Follow up Brief Note Current Diagnosis Diabetes,Sepsis Other Pertinent Diagnosis COVID-19 positive, LEV pnue, ( R) great toe wound Current Diet NPO Labs/Tests Na 134 BUN 97 Cr 4.8 Pertinent Medications NaCl at 125ml/hr Height 6 ft Weight 147.9 kg [place] Body Weight (kg) 72.72 BMI 44.1 Weight change and time frame wt gain notes Weight Status Morbidly Obese Subjective/Other Information Unable to speak to pt. Per RN notes pt in r&d lab technician for procedure. Noticed 0% intakes in chart recordeed yesterday. Percent of energy/protein needs met: 0%/0% Burn Absent Trauma Absent Minimum of two criteria No physical signs of malnutrition #2 Nutrition Diagnosis Inadequate protein-energy intake Diagnosis Progress(for reassessment Continues documentation) #1 Nutrition Diagnosis Increased nutrient needs ( specify in comment below) Diagnosis Progress(for reassessment Continues documentation) Is patient on ventilator? No Is Patient Ambulatory and/or Out of Bed Yes REE-([place] Jeor-ambulatory/OOB) [ 3004.300 [id number]] Kcal/Kg value to use for calculation 14 Approximate Energy Requirements Using 1 kcal/Kg Calculation Used for Recommendations Kcal/kg Additional Notes Pro needs 1.25-1.5g/kg adjBW: 134-161g/day Fluid needs 1ml/kcal Nutrition Intervention Change Diet Order: diet advancement when medically feasuble Goal #1 diet advancement Anticipated Discharge Needs: consistent CHO Follow-Up By: 02/04/20 Additional Comments F/U for diet advancement/ intakes, ONS needs
--- NOTE | 2020-01-31 14:27 | Progress Note ---
Assessment and Plan Severe Sepsis Left upper lobe pneumonia Diabetes II Morbid obesity Febrile illness POSITIVE COVID-19 infection Diabetic foot ulcer Hyponatremia Lactic acidosis CIPRIANO- on HD Thigh abscess COVID 19 induced pneumonia -CONTINUE TO MONITOR RESPIRATORY STATUS CLOSELY- she is at risk for acute decompensation HD to be done now and then patient is to proceed to OR for I and D I anticipate she will require on going mechanical ventilatory support post procedure -Very high inflammatory markers - ferritin 2758; CRP/LDH trending down Risk for cytokine storm secondary to COVID and high risk for ARDS -Recommend the discontinuation of Vancomycin and use of other antibiotics that cover MRSA- Anecdotal evidence that COVID 19 patients appear to do worse with Vancomycin -Conservative fluid management- use vasopressors including midodrine to support blood pressure. -ABG, CXR in am -Aspiration precautions -Accuchecks with glycemic control, keep blood glucose 140-180 mg/dL while critically ill -Avoid hypoglycemia -Avoid nephrotoxins, adjust and dose all medications fro GFR and CrCL -VTE prophylaxis -Wound care -Replace electrolytes as needed -Serial Ferritin, LDH, D-Dimer, CRP every 48h -Daily EKG - QT monitoring - stop plaqenil if QT interval >500 -Obtain IL-6 (sent out) to evaluate cytokine release syndrome due to COVID and consider IV tocilizumab (Actemra) (off-label use)- per ID recommendations -COVID-19 precautions per [facility] protocol -All other care per Attending and consultants CONDITION: CRITICAL PROGNOSIS: GUARDED CODE STATUS: FULL CODE The high probability of a clinically significant, sudden or life threatening deterioration of the [pulmonary, renal, neurology, endocrine ] system(s) required my full and direct attention, intervention and personal management. The aggregate critical care time was [35] minutes. This time is in addition to time spent performing reported procedures but includes the following: [x] Data Review and interpretation [x] Patient assessment and monitoring of vital signs [x] Documentation [x] Medication orders and management Subjective Date of service: 01/31/20 Principal diagnosis: Severe Sepsis; LEV PNA; DM II; Morbid obesity; R/O COVID-19 infection Interval history: Patient is seen today for: Severe Sepsis; LEV pneumonia; Diabetes II; Morbid obesity; Febrile illness, POSITIVE COVID-19 infection; Diabetic foot ulcer; Hyponatremia; Lactic acidosis Seen and examined at bedside; 24hour events reviewed; nursing and respiratory care staff consulted; no adverse overnight events reported to me;agitation with confusion; FiO2 at 50% on High flow oxygen. RIght femoral trialysis catheter, about to initiate HD. Scheduled for ID today of large left thigh abscess; generalized edema No diarrhea, no vomiting, no fevers overnight Objective Vital Signs - 12hr 01/31/20 01/31/20 01/31/20 05:05 10:14 13:55 Temperature 97.4 F L Pulse Rate 80 84 Respiratory 18 Rate Blood Pressure 101/59 133/77 O2 Sat by Pulse 96 99 Oximetry 01/31/20 01/31/20 14:00 14:15 Temperature Pulse Rate 76 83 Respiratory Rate Blood Pressure 144/64 144/69 O2 Sat by Pulse Oximetry Constitutional: agitated, appears uncomfortable, other (young obese AAF, normocephalic with mildly increased resp effort at rest) Eyes: non-icteric ENT: oropharynx moist Neck: supple, no lymphadenopathy, no JVD Effort: mildly labored Ascultation: Bilateral: diminished breath sounds, rales (scant in bases) Percussion: Bilateral: not dull Cardiovascular: regular rate and rhythm Gastrointestinal: normoactive bowel sounds, soft, non-tender, non-distended Integumentary: normal Extremities: no cyanosis, no edema, pulses normal, no ischemia or petechiae, edema Neurologic: non-focal exam, pupils equal and round, other (confusion with agitation) Psychiatric: other (unable to assess) CBC and BMP: 01/31/20 03:49 01/31/20 03:49 ABG, PT/INR, D-dimer: ABG ABG pH 7.485 pH Units (7.350-7.450) H 01/24/20 12:50 ABG pCO2 30.2 mm Hg 01/24/20 12:50 ABG pO2 63.4 mm Hg (80.0-90.0) L 01/24/20 12:50 ABG O2 Saturation 98.0 % (95.0-99.0) 01/24/20 12:50 PT/INR, D-dimer PT 15.6 Sec. (12.2-14.9) H 01/17/20 18:28 INR 1.22 (0.87-1.13) H 01/17/20 18:28 D-Dimer 801.37 ng/mlDDU (0-234) H 01/31/20 03:49 Abnormal lab findings: Abnormal Labs 01/17/20 01/17/20 01/17/20 18:28 18:28 18:28 WBC Hgb Hct MCH 26 L RDW Lymph % (Auto) 9.3 L Lymph # 1.0 L Seg Neutrophils % 86.7 H Seg Neuts % (Manual) Lymphocytes % (Manual) Nucleated RBC % Seg Neutrophils # 9.6 H Seg Neutrophils # Man Lymphocytes # (Manual) PT 15.6 H INR 1.22 H D-Dimer ABG pH ABG pO2 ABG Hemoglobin Sodium 126 L Potassium Chloride 89.3 L Carbon Dioxide 19 L BUN Creatinine Glucose 397 H POC Glucose Hemoglobin A1c Lactic Acid Calcium Magnesium Ferritin AST ALT Alkaline Phosphatase Lactate Dehydrogenase C-Reactive Protein Total Protein 9.0 H Albumin Vancomycin Trough Random Vancomycin 01/17/20 01/17/20 01/17/20 18:28 22:58 22:58 WBC Hgb Hct MCH RDW Lymph % (Auto) Lymph # Seg Neutrophils % Seg Neuts % (Manual) Lymphocytes % (Manual) Nucleated RBC % Seg Neutrophils # Seg Neutrophils # Man Lymphocytes # (Manual) PT INR D-Dimer ABG pH ABG pO2 ABG Hemoglobin Sodium Potassium Chloride Carbon Dioxide BUN Creatinine Glucose POC Glucose Hemoglobin A1c Lactic Acid 3.40 H* 2.30 H* Calcium Magnesium 1.50 L Ferritin AST ALT Alkaline Phosphatase Lactate Dehydrogenase C-Reactive Protein 16.60 H Total Protein Albumin Vancomycin Trough Random Vancomycin 01/18/20 01/18/20 01/18/20 00:46 06:34 08:30 WBC Hgb Hct MCH 26 L RDW 12.7 L Lymph % (Auto) Lymph # Seg Neutrophils % 80.1 H Seg Neuts % (Manual) Lymphocytes % (Manual) Nucleated RBC % Seg Neutrophils # Seg Neutrophils # Man Lymphocytes # (Manual) PT INR D-Dimer ABG pH ABG pO2 ABG Hemoglobin Sodium Potassium Chloride Carbon Dioxide BUN Creatinine Glucose POC Glucose 338 H 266 H Hemoglobin A1c Lactic Acid Calcium Magnesium Ferritin AST ALT Alkaline Phosphatase Lactate Dehydrogenase C-Reactive Protein Total Protein Albumin Vancomycin Trough Random Vancomycin 01/18/20 01/18/20 01/18/20 08:30 08:35 12:30 WBC Hgb Hct MCH RDW Lymph % (Auto) Lymph # Seg Neutrophils % Seg Neuts % (Manual) Lymphocytes % (Manual) Nucleated RBC % Seg Neutrophils # Seg Neutrophils # Man Lymphocytes # (Manual) PT INR D-Dimer ABG pH ABG pO2 ABG Hemoglobin Sodium 135 L D Potassium Chloride Carbon Dioxide BUN Creatinine Glucose 250 H POC Glucose 224 H 213 H Hemoglobin A1c Lactic Acid Calcium Magnesium Ferritin AST ALT Alkaline Phosphatase Lactate Dehydrogenase C-Reactive Protein Total Protein Albumin Vancomycin Trough Random Vancomycin 01/18/20 01/18/20 01/18/20 12:47 16:56 22:03 WBC Hgb Hct MCH RDW Lymph % (Auto) Lymph # Seg Neutrophils % Seg Neuts % (Manual) Lymphocytes % (Manual) Nucleated RBC % Seg Neutrophils # Seg Neutrophils # Man Lymphocytes # (Manual) PT INR D-Dimer ABG pH ABG pO2 ABG Hemoglobin Sodium Potassium Chloride Carbon Dioxide BUN Creatinine Glucose POC Glucose 270 H 239 H Hemoglobin A1c 11.6 H Lactic Acid Calcium Magnesium Ferritin AST ALT Alkaline Phosphatase Lactate Dehydrogenase C-Reactive Protein Total Protein Albumin Vancomycin Trough Random Vancomycin 01/19/20 01/19/20 01/19/20 06:15 11:48 13:09 WBC Hgb Hct MCH 26 L RDW Lymph % (Auto) Lymph # Seg Neutrophils % Seg Neuts % (Manual) Lymphocytes % (Manual) Nucleated RBC % Seg Neutrophils # Seg Neutrophils # Man Lymphocytes # (Manual) PT INR D-Dimer ABG pH ABG pO2 ABG Hemoglobin Sodium Potassium Chloride Carbon Dioxide BUN Creatinine Glucose POC Glucose 248 H 268 H Hemoglobin A1c Lactic Acid Calcium Magnesium Ferritin AST ALT Alkaline Phosphatase Lactate Dehydrogenase C-Reactive Protein Total Protein Albumin Vancomycin Trough Random Vancomycin 01/19/20 01/19/20 01/20/20 17:44 21:09 09:03 WBC Hgb Hct MCH RDW Lymph % (Auto) Lymph # Seg Neutrophils % Seg Neuts % (Manual) Lymphocytes % (Manual) Nucleated RBC % Seg Neutrophils # Seg Neutrophils # Man Lymphocytes # (Manual) PT INR D-Dimer ABG pH ABG pO2 ABG Hemoglobin Sodium Potassium Chloride Carbon Dioxide BUN Creatinine Glucose POC Glucose 214 H 261 H 241 H Hemoglobin A1c Lactic Acid Calcium Magnesium Ferritin AST ALT Alkaline Phosphatase Lactate Dehydrogenase C-Reactive Protein Total Protein Albumin Vancomycin Trough Random Vancomycin 01/20/20 01/20/20 01/20/20 12:10 17:00 19:43 WBC Hgb Hct MCH RDW Lymph % (Auto) Lymph # Seg Neutrophils % Seg Neuts % (Manual) Lymphocytes % (Manual) Nucleated RBC % Seg Neutrophils # Seg Neutrophils # Man Lymphocytes # (Manual) PT INR D-Dimer ABG pH ABG pO2 ABG Hemoglobin Sodium Potassium Chloride Carbon Dioxide BUN Creatinine Glucose POC Glucose 284 H 272 H Hemoglobin A1c Lactic Acid Calcium Magnesium Ferritin AST ALT Alkaline Phosphatase Lactate Dehydrogenase C-Reactive Protein Total Protein Albumin Vancomycin Trough 4.0 L Random Vancomycin 01/20/20 01/21/20 01/21/20 22:39 09:29 11:41 WBC Hgb Hct MCH 26 L RDW Lymph % (Auto) Lymph # Seg Neutrophils % Seg Neuts % (Manual) Lymphocytes % (Manual) Nucleated RBC % Seg Neutrophils # Seg Neutrophils # Man Lymphocytes # (Manual) PT INR D-Dimer ABG pH ABG pO2 ABG Hemoglobin Sodium Potassium Chloride Carbon Dioxide BUN Creatinine Glucose POC Glucose 248 H 238 H Hemoglobin A1c Lactic Acid Calcium Magnesium Ferritin AST ALT Alkaline Phosphatase Lactate Dehydrogenase C-Reactive Protein Total Protein Albumin Vancomycin Trough Random Vancomycin 01/21/20 01/21/20 01/21/20 11:41 12:27 16:55 WBC Hgb Hct MCH RDW Lymph % (Auto) Lymph # Seg Neutrophils % Seg Neuts % (Manual) Lymphocytes % (Manual) Nucleated RBC % Seg Neutrophils # Seg Neutrophils # Man Lymphocytes # (Manual) PT INR D-Dimer ABG pH ABG pO2 ABG Hemoglobin Sodium 132 L Potassium 3.5 L Chloride 97.0 L Carbon Dioxide 19 L BUN Creatinine Glucose 274 H POC Glucose 264 H 261 H Hemoglobin A1c Lactic Acid Calcium Magnesium Ferritin AST ALT Alkaline Phosphatase Lactate Dehydrogenase C-Reactive Protein Total Protein Albumin Vancomycin Trough Random Vancomycin 01/21/20 01/22/20 01/22/20 22:39 09:05 12:57 WBC Hgb Hct MCH RDW Lymph % (Auto) Lymph # Seg Neutrophils % Seg Neuts % (Manual) Lymphocytes % (Manual) Nucleated RBC % Seg Neutrophils # Seg Neutrophils # Man Lymphocytes # (Manual) PT INR D-Dimer ABG pH ABG pO2 ABG Hemoglobin Sodium Potassium Chloride Carbon Dioxide BUN Creatinine Glucose POC Glucose 243 H 258 H 252 H Hemoglobin A1c Lactic Acid Calcium Magnesium Ferritin AST ALT Alkaline Phosphatase Lactate Dehydrogenase C-Reactive Protein Total Protein Albumin Vancomycin Trough Random Vancomycin 01/22/20 01/22/20 01/23/20 17:14 21:30 09:03 WBC Hgb Hct MCH RDW Lymph % (Auto) Lymph # Seg Neutrophils % Seg Neuts % (Manual) Lymphocytes % (Manual) Nucleated RBC % Seg Neutrophils # Seg Neutrophils # Man Lymphocytes # (Manual) PT INR D-Dimer ABG pH ABG pO2 ABG Hemoglobin Sodium Potassium Chloride Carbon Dioxide BUN Creatinine Glucose POC Glucose 306 H 217 H 156 H Hemoglobin A1c Lactic Acid Calcium Magnesium Ferritin AST ALT Alkaline Phosphatase Lactate Dehydrogenase C-Reactive Protein Total Protein Albumin Vancomycin Trough Random Vancomycin 01/23/20 01/23/20 01/23/20 10:36 11:12 17:11 WBC Hgb Hct MCH RDW Lymph % (Auto) Lymph # Seg Neutrophils % Seg Neuts % (Manual) Lymphocytes % (Manual) Nucleated RBC % Seg Neutrophils # Seg Neutrophils # Man Lymphocytes # (Manual) PT INR D-Dimer ABG pH ABG pO2 ABG Hemoglobin Sodium Potassium 3.0 L Chloride Carbon Dioxide 21 L BUN Creatinine Glucose 266 H POC Glucose 244 H 238 H Hemoglobin A1c Lactic Acid Calcium 8.3 L Magnesium Ferritin AST ALT Alkaline Phosphatase Lactate Dehydrogenase C-Reactive Protein Total Protein Albumin Vancomycin Trough Random Vancomycin 01/23/20 01/24/20 01/24/20 22:57 06:03 12:12 WBC Hgb Hct MCH RDW Lymph % (Auto) Lymph # Seg Neutrophils % Seg Neuts % (Manual) Lymphocytes % (Manual) Nucleated RBC % Seg Neutrophils # Seg Neutrophils # Man Lymphocytes # (Manual) PT INR D-Dimer ABG pH ABG pO2 ABG Hemoglobin Sodium Potassium 3.2 L Chloride Carbon Dioxide 19 L BUN Creatinine Glucose 231 H POC Glucose 228 H 210 H Hemoglobin A1c Lactic Acid Calcium 8.2 L Magnesium Ferritin AST ALT Alkaline Phosphatase Lactate Dehydrogenase C-Reactive Protein Total Protein Albumin Vancomycin Trough Random Vancomycin 01/24/20 01/24/20 01/24/20 12:50 19:01 21:49 WBC Hgb Hct MCH RDW Lymph % (Auto) Lymph # Seg Neutrophils % Seg Neuts % (Manual) Lymphocytes % (Manual) Nucleated RBC % Seg Neutrophils # Seg Neutrophils # Man Lymphocytes # (Manual) PT INR D-Dimer ABG pH 7.485 H ABG pO2 63.4 L ABG Hemoglobin 5.0 L Sodium Potassium Chloride Carbon Dioxide BUN Creatinine Glucose POC Glucose 183 H 193 H Hemoglobin A1c Lactic Acid Calcium Magnesium Ferritin AST ALT Alkaline Phosphatase Lactate Dehydrogenase C-Reactive Protein Total Protein Albumin Vancomycin Trough Random Vancomycin 01/25/20 01/25/20 01/25/20 09:13 16:58 22:23 WBC Hgb Hct MCH RDW Lymph % (Auto) Lymph # Seg Neutrophils % Seg Neuts % (Manual) Lymphocytes % (Manual) Nucleated RBC % Seg Neutrophils # Seg Neutrophils # Man Lymphocytes # (Manual) PT INR D-Dimer ABG pH ABG pO2 ABG Hemoglobin Sodium Potassium Chloride Carbon Dioxide BUN Creatinine Glucose POC Glucose 196 H 231 H 159 H Hemoglobin A1c Lactic Acid Calcium Magnesium Ferritin AST ALT Alkaline Phosphatase Lactate Dehydrogenase C-Reactive Protein Total Protein Albumin Vancomycin Trough Random Vancomycin 01/26/20 01/26/20 01/26/20 05:40 05:40 05:40 WBC 16.4 H Hgb Hct MCH 26 L RDW 12.9 L Lymph % (Auto) Lymph # Seg Neutrophils % Seg Neuts % (Manual) 90.0 H Lymphocytes % (Manual) 1.0 L Nucleated RBC % 1.0 H Seg Neutrophils # Seg Neutrophils # Man 14.8 H Lymphocytes # (Manual) 0.2 L PT INR D-Dimer 2624.11 H ABG pH ABG pO2 ABG Hemoglobin Sodium 135 L Potassium 2.7 L* Chloride Carbon Dioxide 21 L BUN Creatinine Glucose 132 H POC Glucose Hemoglobin A1c Lactic Acid Calcium 8.0 L Magnesium Ferritin AST ALT Alkaline Phosphatase Lactate Dehydrogenase C-Reactive Protein Total Protein Albumin Vancomycin Trough Random Vancomycin 01/26/20 01/26/20 01/26/20 05:40 05:40 08:58 WBC Hgb Hct MCH RDW Lymph % (Auto) Lymph # Seg Neutrophils % Seg Neuts % (Manual) Lymphocytes % (Manual) Nucleated RBC % Seg Neutrophils # Seg Neutrophils # Man Lymphocytes # (Manual) PT INR D-Dimer ABG pH ABG pO2 ABG Hemoglobin Sodium Potassium Chloride Carbon Dioxide BUN Creatinine Glucose POC Glucose 131 H Hemoglobin A1c Lactic Acid Calcium Magnesium Ferritin 2758.0 H AST ALT Alkaline Phosphatase Lactate Dehydrogenase C-Reactive Protein 26.90 H Total Protein Albumin Vancomycin Trough Random Vancomycin 01/26/20 01/26/20 01/26/20 13:00 16:30 21:22 WBC Hgb Hct MCH RDW Lymph % (Auto) Lymph # Seg Neutrophils % Seg Neuts % (Manual) Lymphocytes % (Manual) Nucleated RBC % Seg Neutrophils # Seg Neutrophils # Man Lymphocytes # (Manual) PT INR D-Dimer ABG pH ABG pO2 ABG Hemoglobin Sodium Potassium Chloride Carbon Dioxide BUN Creatinine Glucose POC Glucose 136 H 146 H 139 H Hemoglobin A1c Lactic Acid Calcium Magnesium Ferritin AST ALT Alkaline Phosphatase Lactate Dehydrogenase C-Reactive Protein Total Protein Albumin Vancomycin Trough Random Vancomycin 01/27/20 01/27/20 01/27/20 05:14 07:37 12:05 WBC Hgb Hct MCH RDW Lymph % (Auto) Lymph # Seg Neutrophils % Seg Neuts % (Manual) Lymphocytes % (Manual) Nucleated RBC % Seg Neutrophils # Seg Neutrophils # Man Lymphocytes # (Manual) PT INR D-Dimer ABG pH ABG pO2 ABG Hemoglobin Sodium 135 L Potassium 3.4 L D Chloride Carbon Dioxide 17 L BUN 24 H Creatinine 1.4 H D Glucose 143 H POC Glucose 133 H 141 H Hemoglobin A1c Lactic Acid Calcium 7.6 L Magnesium Ferritin AST ALT Alkaline Phosphatase Lactate Dehydrogenase C-Reactive Protein Total Protein Albumin Vancomycin Trough Random Vancomycin 01/27/20 01/27/20 01/27/20 17:37 22:14 23:53 WBC Hgb Hct MCH RDW Lymph % (Auto) Lymph # Seg Neutrophils % Seg Neuts % (Manual) Lymphocytes % (Manual) Nucleated RBC % Seg Neutrophils # Seg Neutrophils # Man Lymphocytes # (Manual) PT INR D-Dimer 2675.43 H ABG pH ABG pO2 ABG Hemoglobin Sodium Potassium Chloride Carbon Dioxide BUN Creatinine Glucose POC Glucose 153 H 124 H Hemoglobin A1c Lactic Acid Calcium Magnesium Ferritin AST ALT Alkaline Phosphatase Lactate Dehydrogenase C-Reactive Protein Total Protein Albumin Vancomycin Trough Random Vancomycin 01/27/20 01/27/20 01/28/20 23:53 23:53 08:36 WBC Hgb Hct MCH RDW Lymph % (Auto) Lymph # Seg Neutrophils % Seg Neuts % (Manual) Lymphocytes % (Manual) Nucleated RBC % Seg Neutrophils # Seg Neutrophils # Man Lymphocytes # (Manual) PT INR D-Dimer ABG pH ABG pO2 ABG Hemoglobin Sodium Potassium Chloride Carbon Dioxide BUN Creatinine Glucose POC Glucose 165 H Hemoglobin A1c Lactic Acid Calcium Magnesium Ferritin 3523.0 H AST ALT Alkaline Phosphatase Lactate Dehydrogenase 1132 H C-Reactive Protein 15.60 H Total Protein Albumin Vancomycin Trough Random Vancomycin 01/28/20 01/28/20 01/28/20 10:00 10:00 12:42 WBC Hgb Hct MCH RDW Lymph % (Auto) Lymph # Seg Neutrophils % Seg Neuts % (Manual) Lymphocytes % (Manual) Nucleated RBC % Seg Neutrophils # Seg Neutrophils # Man Lymphocytes # (Manual) PT INR D-Dimer ABG pH ABG pO2 ABG Hemoglobin Sodium 131 L Potassium 3.5 L Chloride Carbon Dioxide 16 L BUN 51 H Creatinine 3.5 H D Glucose 180 H POC Glucose 188 H Hemoglobin A1c Lactic Acid Calcium 7.5 L Magnesium Ferritin AST ALT Alkaline Phosphatase Lactate Dehydrogenase C-Reactive Protein Total Protein Albumin Vancomycin Trough Random Vancomycin 65.8 H 01/28/20 01/28/20 01/29/20 17:27 22:06 07:29 WBC 17.0 H Hgb 9.6 L Hct 29.5 L MCH 26 L RDW Lymph % (Auto) Lymph # Seg Neutrophils % Seg Neuts % (Manual) Lymphocytes % (Manual) Nucleated RBC % Seg Neutrophils # Seg Neutrophils # Man Lymphocytes # (Manual) PT INR D-Dimer ABG pH ABG pO2 ABG Hemoglobin Sodium Potassium Chloride Carbon Dioxide BUN Creatinine Glucose POC Glucose 161 H 158 H Hemoglobin A1c Lactic Acid Calcium Magnesium Ferritin AST ALT Alkaline Phosphatase Lactate Dehydrogenase C-Reactive Protein Total Protein Albumin Vancomycin Trough Random Vancomycin 01/29/20 01/29/20 01/29/20 07:29 08:20 11:54 WBC Hgb Hct MCH RDW Lymph % (Auto) Lymph # Seg Neutrophils % Seg Neuts % (Manual) Lymphocytes % (Manual) Nucleated RBC % Seg Neutrophils # Seg Neutrophils # Man Lymphocytes # (Manual) PT INR D-Dimer ABG pH ABG pO2 ABG Hemoglobin Sodium 133 L Potassium Chloride Carbon Dioxide 15 L BUN 69 H Creatinine 4.1 H Glucose 161 H POC Glucose 170 H Hemoglobin A1c Lactic Acid Calcium 7.6 L Magnesium Ferritin > 2000.0 H AST ALT Alkaline Phosphatase Lactate Dehydrogenase C-Reactive Protein Total Protein Albumin Vancomycin Trough Random Vancomycin 01/29/20 01/29/20 01/29/20 11:54 11:54 12:55 WBC Hgb Hct MCH RDW Lymph % (Auto) Lymph # Seg Neutrophils % Seg Neuts % (Manual) Lymphocytes % (Manual) Nucleated RBC % Seg Neutrophils # Seg Neutrophils # Man Lymphocytes # (Manual) PT INR D-Dimer 1499 H ABG pH ABG pO2 ABG Hemoglobin Sodium Potassium Chloride Carbon Dioxide BUN Creatinine Glucose POC Glucose 142 H Hemoglobin A1c Lactic Acid Calcium Magnesium Ferritin AST ALT Alkaline Phosphatase Lactate Dehydrogenase 946 H C-Reactive Protein 13.30 H Total Protein Albumin Vancomycin Trough Random Vancomycin 01/29/20 01/29/20 01/30/20 16:19 22:13 05:19 WBC Hgb Hct MCH RDW Lymph % (Auto) Lymph # Seg Neutrophils % Seg Neuts % (Manual) Lymphocytes % (Manual) Nucleated RBC % Seg Neutrophils # Seg Neutrophils # Man Lymphocytes # (Manual) PT INR D-Dimer ABG pH ABG pO2 ABG Hemoglobin Sodium Potassium Chloride Carbon Dioxide BUN Creatinine Glucose POC Glucose 146 H 142 H Hemoglobin A1c Lactic Acid Calcium Magnesium Ferritin AST ALT Alkaline Phosphatase Lactate Dehydrogenase C-Reactive Protein Total Protein Albumin Vancomycin Trough 45.4 H Random Vancomycin 01/30/20 01/30/20 01/30/20 05:19 08:04 12:21 WBC Hgb Hct MCH RDW Lymph % (Auto) Lymph # Seg Neutrophils % Seg Neuts % (Manual) Lymphocytes % (Manual) Nucleated RBC % Seg Neutrophils # Seg Neutrophils # Man Lymphocytes # (Manual) PT INR D-Dimer ABG pH ABG pO2 ABG Hemoglobin Sodium 134 L Potassium Chloride Carbon Dioxide 14 L BUN 87 H Creatinine 4.4 H Glucose 172 H POC Glucose 153 H 147 H Hemoglobin A1c Lactic Acid Calcium 7.6 L Magnesium Ferritin AST 152 H ALT 124 H Alkaline Phosphatase Lactate Dehydrogenase C-Reactive Protein Total Protein 5.5 L Albumin 1.8 L Vancomycin Trough Random Vancomycin 01/30/20 01/30/20 01/31/20 16:51 22:54 03:49 WBC Hgb Hct MCH RDW Lymph % (Auto) Lymph # Seg Neutrophils % Seg Neuts % (Manual) Lymphocytes % (Manual) Nucleated RBC % Seg Neutrophils # Seg Neutrophils # Man Lymphocytes # (Manual) PT INR D-Dimer 801.37 H ABG pH ABG pO2 ABG Hemoglobin Sodium Potassium Chloride Carbon Dioxide BUN Creatinine Glucose POC Glucose 119 H 129 H Hemoglobin A1c Lactic Acid Calcium Magnesium Ferritin AST ALT Alkaline Phosphatase Lactate Dehydrogenase C-Reactive Protein Total Protein Albumin Vancomycin Trough Random Vancomycin 01/31/20 01/31/20 01/31/20 03:49 03:49 03:49 WBC 16.1 H Hgb Hct MCH 25 L RDW Lymph % (Auto) Lymph # Seg Neutrophils % Seg Neuts % (Manual) Lymphocytes % (Manual) Nucleated RBC % Seg Neutrophils # Seg Neutrophils # Man Lymphocytes # (Manual) PT INR D-Dimer ABG pH ABG pO2 ABG Hemoglobin Sodium 134 L Potassium Chloride Carbon Dioxide 13 L BUN 97 H Creatinine 4.8 H Glucose 123 H POC Glucose Hemoglobin A1c Lactic Acid Calcium 7.6 L Magnesium Ferritin 3101.0 H AST 112 H ALT 112 H Alkaline Phosphatase 145 H Lactate Dehydrogenase 896 H C-Reactive Protein 11.10 H Total Protein 5.5 L Albumin 1.7 L Vancomycin Trough Random Vancomycin 01/31/20 01/31/20 08:00 11:48 WBC Hgb Hct MCH RDW Lymph % (Auto) Lymph # Seg Neutrophils % Seg Neuts % (Manual) Lymphocytes % (Manual) Nucleated RBC % Seg Neutrophils # Seg Neutrophils # Man Lymphocytes # (Manual) PT INR D-Dimer ABG pH ABG pO2 ABG Hemoglobin Sodium Potassium Chloride Carbon Dioxide BUN Creatinine Glucose POC Glucose 133 H 136 H Hemoglobin A1c Lactic Acid Calcium Magnesium Ferritin AST ALT Alkaline Phosphatase Lactate Dehydrogenase C-Reactive Protein Total Protein Albumin Vancomycin Trough Random Vancomycin Allied health notes reviewed: nursing
[2020-01-31] MEDS ORDERED: GLYCOPYRROLATE 0.4 MG/2 ML INJ ONE (16:08)
[2020-01-31] MEDS ORDERED: LIDOCAINE MPF (2%) 20 MG/1 ML VIAL 5 ML ONE (16:08)
[2020-01-31] MEDS ORDERED: SUCCINYLCHOLINE CHLORIDE 200 MG/10 ML INJ MDV ONE (16:08)
[2020-01-31] MEDS ORDERED: PHENYLEPHRINE/NS 1,000 MCG/10 ML SYRINGE (OR USE) IV ONE (16:08)
[2020-01-31] MEDS ORDERED: ONDANSETRON 4 MG/2 ML INJ ONE (16:08)
[2020-01-31] MEDS ORDERED: ROCURONIUM 50 MG/5 ML INJ IV ONE (16:08)
[2020-01-31] MEDS ORDERED: propofoL 200 MG/20 ML VIAL IV ONE (16:09)
[2020-01-31] MEDS ORDERED: fentaNYL 250 MCG/5 ML INJ ONE (16:09)
--- NOTE | 2020-01-31 16:24 | Progress Note ---
Assessment and Plan - Patient Problems (1) Acute kidney injury (CIPRIANO) with acute tubular necrosis (ATN) Current Visit: Yes Status: Acute Plan to address problem: Acute kidney injury most likely secondary to acute tubular necrosis in the setting of severe sepsis secondary to COVID19 pneumonia. Acute vancomycin toxicity to be considered as differential. Pt remains at high risk for cytokine storm and ARDS given severely elevated inflammatory parameters. indication for HD at present, with worsening azotemia, change in mental status possible uremic encephalopathy along with progressive fluid overload, met acidosis. Discussed with patient's spouse regarding indication, risks and benefits of HD who understands and agrees with HD. IR consulted for vascath placement, initiation of HD today. BP remains boderline low, hold antihypertensives, cont IV NS boluses along with maintenance IV NS at 125ml/hr, to maintain MAP > 65mmhg. cont ABXs as per ID. Supportive care for ATN avoid nephrotoxins ( hold vanco and redose when trough is < 15) aviod IV contrast/NSAIDS. Will monitor lytes/renal parameters closely and make further recommendations. (2) Acidosis Current Visit: Yes Status: Acute Plan to address problem: cont Na bicarb 1300mg po bid. to correct met acidosis with HD (3) COVID-19 virus detected Current Visit: Yes Status: Acute Plan to address problem: management as per ID (4) Pneumonia Current Visit: Yes Status: Acute Plan to address problem: on empiric treatment with hydroxychloroquin/Azithromycin along with cefepime, dose renally adjusted. (5) Type 2 diabetes mellitus with hyperglycemia Current Visit: Yes Status: Acute Plan to address problem: DM mangement as per primary attending (6) Metabolic encephalopathy Current Visit: Yes Status: Acute Subjective Date of service: 01/31/20 Principal diagnosis: Severe Sepsis; LEV PNA; DM II; Morbid obesity; R/O COVID-19 infection Interval history: patient is awake, however with waxing and waning mental status, appearing more toxic today. Cannot consent to HD since pt appears confused, disoriented. discussed with HD with her spouse and verbal consent obtained. Objective - Vital Signs Vital signs: Vital Signs - 12hr 01/31/20 01/31/20 01/31/20 05:05 10:14 11:41 Temperature 97.4 F L Pulse Rate 80 82 Respiratory 18 20 Rate Blood Pressure 101/59 95/56 O2 Sat by Pulse 96 99 95 Oximetry 01/31/20 01/31/20 01/31/20 13:50 13:55 14:00 Temperature 97.0 F L Pulse Rate 95 H 84 76 Respiratory 18 Rate Blood Pressure 118/78 133/77 144/64 O2 Sat by Pulse Oximetry 01/31/20 01/31/20 01/31/20 14:15 14:30 14:45 Temperature Pulse Rate 83 85 84 Respiratory Rate Blood Pressure 144/69 121/62 116/66 O2 Sat by Pulse Oximetry 01/31/20 01/31/20 01/31/20 15:00 15:15 15:30 Temperature Pulse Rate 84 87 92 H Respiratory Rate Blood Pressure 111/62 118/61 94/58 O2 Sat by Pulse Oximetry 01/31/20 01/31/20 15:45 16:00 Temperature Pulse Rate 88 91 H Respiratory Rate Blood Pressure 108/53 115/50 O2 Sat by Pulse Oximetry - General Appearance General appearance: well-developed, well-nourished, appears stated age, obese EENT: ATNC, PERRL, mucous membranes moist Neck: no JVD Respiratory: Present: Decreased Breath Sounds Cardiology: regular, S1S2 Gastrointestinal: normoactive bowel sounds, obese Integumentary: no rash, other (no edema ) Neurologic: no focal deficit, confused, disoriented, strength 5/5, CN 3-12 intact - Lab 01/31/20 03:49 01/31/20 03:49 Most recent lab results ABG pH 7.485 pH Units (7.350-7.450) H 01/24/20 12:50 ABG pCO2 30.2 mm Hg 01/24/20 12:50 ABG pO2 63.4 mm Hg (80.0-90.0) L 01/24/20 12:50 ABG HCO3 22.2 mmol/L (20.0-26.0) 01/24/20 12:50 ABG O2 Saturation 98.0 % (95.0-99.0) 01/24/20 12:50 Calcium 7.6 mg/dL (8.4-10.2) L 01/31/20 03:49 Magnesium 1.50 mg/dL (1.7-2.3) L 01/17/20 22:58 Medications & Allergies - Medications Allergies/Adverse Reactions: Allergies No Known Allergies Allergy (Verified 09/12/18 00:37) Home Medications: Home Medications Medication Instructions Recorded Confirmed Last Taken Type glipiZIDE-Metformin 5-500 mg 500 mg PO BID 01/17/20 01/17/20 Unknown History Active Medications: Generic Name Dose Route Start Last Admin Trade Name Freq PRN Reason Stop Dose Admin Acetaminophen 650 mg 01/17/20 23:06 01/29/20 22:43 Tylenol PO 650 mg Q4H PRN Administration Pain MILD(1-3)/Fever >100.5/COLLINS Dextrose 0 ml 01/17/20 23:06 D50w (25gm) Syringe IV Q30MIN PRN Hypoglycemia Protocol Famotidine 20 mg 01/24/20 10:00 01/31/20 11:08 Pepcid PO Not Given QDAY COBY Heparin Sodium (Porcine) 5,000 unit 01/18/20 06:00 01/31/20 05:46 Heparin SUB-Q 5,000 unit Q8HR COBY Administration Hydralazine HCl 10 mg 01/18/20 22:14 01/22/20 18:43 Apresoline IV 10 mg Q6H PRN Administration Hypertension Hydroxychloroquine Sulfate 200 mg 01/28/20 23:00 01/31/20 11:08 Plaquenil PO 02/01/20 22:59 Not Given BID COBY Cefepime HCl 2 gm in 100 mls @ 200 mls/hr 01/29/20 10:00 01/31/20 12:58 Cefepime/Ns 2 Gm/100 Ml IV 200 mls/hr Q24HR COBY Administration Protocol Sodium Chloride 1,000 mls @ 125 mls/hr 01/28/20 17:30 01/31/20 12:59 Nacl 0.9% 1000 Ml IV 125 mls/hr DIRECT COBY Administration Sodium Chloride 100 mls @ 999 mls/hr 01/31/20 07:12 Nacl 0.9% IV KIRSTEN PRN Hypotension Insulin Human Isoph/Insulin Regular 12 unit 01/25/20 09:00 01/31/20 08:14 Humulin 70/30 SUB-Q Not Given BIDDIAB COBY Insulin Human Regular 0 units 01/19/20 11:30 01/31/20 09:14 Humulin R SUB-Q Not Given ACHS COBY Protocol Magnesium Hydroxide 30 ml 01/17/20 23:06 Milk Of Magnesia PO Q4H PRN Constipation Morphine Sulfate 2 mg 01/17/20 23:06 01/30/20 20:39 Morphine IV 2 mg Q4H PRN Administration Pain, Moderate (4-6) Nystatin 1 applic 01/29/20 14:00 01/31/20 11:08 Nystop TP Not Given BID [facility] Ondansetron HCl 4 mg 01/17/20 23:06 01/30/20 20:47 Zofran IV 4 mg Q8H PRN Administration Nausea And Vomiting Sodium Bicarbonate 1,300 mg 01/29/20 22:00 01/31/20 11:08 Sodium Bicarbonate PO Not Given BID [facility] Sodium Chloride 10 ml 01/18/20 10:00 01/31/20 11:08 Sodium Chloride Flush Syringe 10 Ml IV Not Given BID [facility] Sodium Chloride 10 ml 01/17/20 23:06 Sodium Chloride Flush Syringe 10 Ml IV PRN PRN LINE FLUSH Zinc Sulfate 220 mg 01/29/20 12:00 01/30/20 14:16 Zinc Sulfate PO 02/01/20 20:00 Not Given DAILY@1200 [facility]
[2020-01-31] MEDS: ZINC SULFATE 220 MG CAP PO SCH (17:07)
[2020-01-31] MEDS ORDERED: LIDOCAINE (1%) 10 MG/1 ML VIAL 20 ML MDV ONE (17:50)
[2020-01-31] MEDS ORDERED: BUPIVACAINE/PF (0.5%) 5 MG/1 ML 30 ML VIAL INFILTRATI ONE ×2 (17:50→18:00)
[2020-01-31] MEDS ORDERED: HYDROGEN PEROXIDE 118 ML SOLUTION ONE (17:54)
[2020-01-31] MEDS ORDERED: SODIUM CHLORIDE 0.9% IRR 1,500 ML BOTTLE IR ONE (18:00)
[2020-01-31] MEDS ORDERED: EPINEPHrine/PF (1:1,000) 1 MG/1 ML INJ IV ONE (18:00)
[2020-01-31] MEDS ORDERED: LIDOCAINE (1%) 10 MG/1 ML VIAL 20 ML MDV INFILTRATI ONE (18:00)
[2020-01-31] MEDS ORDERED: EPINEPHrine 1:10,000 1 MG/10 ML SYRINGE ONE ×2 (18:01→19:56)
[2020-01-31] MEDS ORDERED: SODIUM CHLORIDE 0.9% 100 ML ONE (18:02)
[2020-01-31] MEDS ORDERED: MIDAZOLAM 5 MG/5 ML INJ MDV IV ONE (19:52)
[2020-01-31] MEDS ORDERED: SODIUM CHLORIDE 0.9% 200 ML ONE (19:59)
[2020-01-31] MEDS ORDERED: SODIUM BICARB 8.4% 50 MEQ/50 ML VIAL IV ONE (19:59)
[2020-01-31] MEDS ORDERED: NORepinephrine/NS 4 MG-250 ML 4 MG/250 ML BAG IV ONE (20:00)
[2020-01-31] MEDS ORDERED: SODIUM BICARB 8.4% 50 MEQ/50 ML SYRINGE IV ONE (20:00)
--- NOTE | 2020-01-31 20:00 | Operative Report ---
Operative Report Operative Report: Date: January 31, 2020 Surgeon: Kaur Lynch MD Procedure: incision and drainage of left thigh abscess Preop diagnosis: Left thigh abscess Postop diagnosis: Same as preop Anesthesia:GETA Complications: None immediate EBL: 50 mL Indication: 29-year-old female presented to ED 2 weeks ago with nonhealing toe ulcer. On this admission was found to have pneumonia and be coronavirus positive. Over the last several days patient was noted to have left thigh swelling concerning for abscess. I was consulted yesterday for evaluation. Patient was unable to have CAT scan due to agitation and altered mental status likely due to sepsis. Patient has renal insufficiency, borderline hypotension, leukocytosis of 17,000. It was felt that this thigh wound or abscess were the likely major source of infection and the cause of her overall sepsis. Consent was obtained over the phone from her as the patient continues to have altered mental status for communication. Details of procedure: Patient was brought into an OR suite that was set up with airborne droplet precautions. All personnel with the patient were wearing N95 masks and appropriate PPE. Patient was intubated on her patient bed, and then transferred to the OR bed. Patient was then placed in stirrups in her thigh and perineal area were prepped and draped in sterile fashion. There was noted to be a 4 x 4 centimeter area of desquamated tissue and skin in her medial upper/posterior thigh. This area had obvious fluctuance. There was significant induration and swelling advancing superiorly to the anterior portion of her thigh with a 2 x 2 centimeter segment of blistered skin. Over the area of fluctuance the skin was incised and there was immediate expression of foul- smelling copious purulent material. This was suctioned. The overlying skin measuring about 10 x 6 cm was excised as it was not seen as being viable. An abscess cavity was observed to extend all the way to her anterior thigh along the medial aspect. At his furthest dimension it measured approximately 20 cm from the closest skin edge. The cavity was about 2cm deep from the skin surface. Purulent fatty tissue, fibrinous exudate was sharply excised. The muscle was intact and there were no signs of gross necrotizing fasciitis. There was gross manipulation of the subcutaneous tissue, and breaking up the abscess cavity pockets until no more purulent material or liquid could be expressed. The cavity and wound bed was then irrigated with a pulse lavage followed by hydrogen peroxide. The cavity was inspected hemostasis was adequate, there was no gross evidence of nonviable tissue. The cavity and wound bed were then packed with iodoform gauze, and Betadine soaked Kerlix followed by sterile dressing. The patient was awoken and extubated and will be recovered in the operating room. All counts were correct. Specimens: Necrotic skin sent to pathology for evaluation and culture
[2020-01-31] MEDS ORDERED: SODIUM CHLORIDE*PRIMING MACHINE ONLY FOR DIALYSIS MC ONE (20:37)
[2020-01-31] MEDS ORDERED: MINERAL OIL/PETROLATUM, WHITE OPHTH OINT 3.5 GM OU PRN (21:48)
[2020-01-31] MEDS ORDERED: fentaNYL 100 MCG/2 ML INJ IV PRN (21:48)
[2020-01-31] MEDS ORDERED: LIP THERAPY VASELINE TP PRN (21:48)
--- NOTE | 2020-01-31 22:05 | Event Note ---
Date: 01/31/20 Patient extubated immediately post op and recovered in OR given COVID19+ status. Initial vitals were normotensive without pressor support, SpO2 mid-low 90s on NRB. However, after approx. 30mins of recovery, patient had precipitous drop in SpO2 and BP, with lowest noted to be mid-70s despite 100% O2 and CPAP with anesthesia face mask. Patient was re-intubated and SpO2 improved to >90% on 100% FiO2. Hypotension persisted despite small bolus dose of pressors. Norepinephrine gtt started at 20mcg/min via R groin trialysis catheter. Patient received ICU bed assignment and was transported to ICU w/ AMBU/filter, monitors, and accompanied by anesthesia staff and SENIOR CUSTOMER SERVICE REPRESENTATIVE. BP improved and stabilized and norepinephrine gtt was ultimately titrated down to 10mcg/min by arrival to ICU. Placed on vent by RT. CXR ordered. Sedation orders per ICU MD. Handoff given to ICU team. See anes record.
--- NOTE | 2020-01-31 22:06 | Post Anesthesia Evaluation ---
- Post Anesthesia Evaluation Patient Participated: No Airway Patent: Yes (intubated) Stable Respiratory Function: Yes Nausea/Vomiting: No Pain Manageable: Yes Adequeate Hydration: Yes Anesthesia Complications: No Patient on Ventilator: Yes (500x20, FiO2 60%, Peep 6)
--- NOTE | 2020-01-31 22:14 | Anesthesia Consultation ---
Anesthesia Consult and Med Hx Date of service: 01/31/20 - Airway Intubation Access Assessment: Possibly Difficult (uncooperative with airway exam) - Pre-Operative Health Status ASA Pre-Surgery Classification: ASA4, Emergency Proposed Anesthetic Plan: General - Pulmonary Hx Respiratory Symptoms: Yes (PNA 2/2 COVID-19; 4L NC on arrival to OR) Home Oxygen Therapy: No Hx Pneumonia: Yes - Cardiovascular System Hx Hypertension: Yes Hx Heart Attack/AMI: No Hx Percutaneous Transluminal Coronary Angioplasty (PTCA): No Hx Cardia Arrhythmia: No - Central Nervous System CVA: No Hx Psychiatric Problems: No (?encephalopathy) - Endocrine Hx Renal Disease: Yes (acute renal failure not yet on HD but expected in near future) Hx Non-Insulin Dependent Diabetes: Yes - Hematic Hx Anemia: Yes - Other Systems Hx Obesity: Yes (BMI 44) - Additional Comments Anesthesia Medical History Comments: COVID-19+ with worsening leukocytosis, encephalopathy, and recent labile BP concerning for sepsis 2/2 left thigh ab scess. O2 requirements decreasing in recent days and was on room air yesterday. Had several low pressure readings last 2 days but improved today after IVF. OR and anesthesia staff preparing for airborne, droplet, and contact precautions intraoperatively. Discussed anesthetic plan and risks, including risk of postop mechanical ventilation and/or ICU admission given overall clinical picture with patient's prior to procedure. She verbalized understanding and gave consent for anesthesia.
--- NOTE | 2020-01-31 22:14 | Anesthesia Day of Surgery ---
Anesthesia Day of Surgery - Day of Surgery Patient Examined: Yes Patient H&P Reviewed: Yes Patient is NPO: Yes
--- NOTE | 2020-01-31 22:44 | XRay Report ---
CHEST 1 VIEW 10:18 PM INDICATION / CLINICAL INFORMATION: ETT placement. COMPARISON: 01/19/20. FINDINGS: SUPPORT DEVICES: There is a new endotracheal tube with the tip approximately 5 cm above the luis. HEART / MEDIASTINUM: Unchanged. LUNGS / PLEURA: Patchy parenchymal disease in the left mid to lower lung and in the right lower lung is again identified, but has shown significant improvement. There is a possible small right pleural e ffusion. No pneumothorax. ADDITIONAL FINDINGS: No significant additional findings. IMPRESSION: 1. Endotracheal tube in good position. 2. Bilateral parenchymal opacities have improved since 01/19/20. Signer Name: Milind Cano MD Signed: 01/31/2020 10:39 PM Workstation Name: [id number]
[2020-01-31 22:45] LABS: ABG Base Excess -11.6 mmol/L (-2.0-3.0); ABG HCO3 15.2 mmol/L (20.0-26.0); ABG PCO2 37.5 mm Hg; ABG PH 7.226 pH Units (7.350-7.450); ABG PO2 77.9 mm Hg (80.0-90.0)
[2020-01-31] MEDS: fentaNYL DRIP Premix 2,000 MCG/100 ML BAG IV SCH (22:47)
[2020-01-31 22:48] LABS: ABG Methemoglobin 0.7 % (0.0-1.5); ABG Oxygen Saturation 93.5 % (95.0-99.0)
[2020-01-31] MEDS: NORepinephrine/NS 4 MG-250 ML 4 MG/250 ML BAG IV SCH (23:09)
--- NOTE | 2020-02-01 01:15 | Event Note ---
Date: 02/01/20 Post I and D with decompensation post operatively. Arrived to the ICU on MVS. Discussed with RT and RN Acidemia on ABG Minute ventilation adjusted, follow up ABG ordered CXR ordered VAP bundle addressed, orders placed.
[2020-02-01] MEDS: NORepinephrine/NS 4 MG-250 ML 4 MG/250 ML BAG IV SCH ×4 (03:02→19:28)
--- NOTE | 2020-02-01 05:27 | XRay Report ---
CHEST 1 VIEW 4:01 AM INDICATION / CLINICAL INFORMATION: Follow-up respiratory failure. COMPARISON: Yesterday. FINDINGS: SUPPORT DEVICES: The position of the endotracheal tube has not changed. There is a new nasogastric tu be with the tip not well seen. HEART / MEDIASTINUM: Unchanged. LUNGS / PLEURA: There is moderately severe diffuse bilateral parenchymal disease, left greater than r ight, mildly increased. No pneumothorax. ADDITIONAL FINDINGS: No significant additional findings. IMPRESSION: Increasing bilateral pleuroparenchymal disease. Signer Name: Milind Cano MD Signed: 02/01/2020 5:23 AM Workstation Name: [id number]
--- NOTE | 2020-02-01 05:28 | XRay Report ---
ABDOMEN 1 VIEW 4:04 AM INDICATION / CLINICAL INFORMATION: NG tube placement. COMPARISON: None available. FINDINGS: TUBES / LINES: There is a nasogastric tube with the tip overlying the proximal stomach and the proxim al sidehole near the gastroesophageal junction. BOWEL GAS PATTERN: No significant abnormality. FREE AIR / EXTRALUMINAL GAS: None seen. ADDITIONAL FINDINGS: No significant additional findings. IMPRESSION: Nasogastric tube tip overlies the proximal stomach. The tube should be advanced further i nto the stomach. Signer Name: Milind Cano MD Signed: 02/01/2020 5:24 AM Workstation Name: [email or web address]
[2020-02-01 05:29] LABS: Hematocrit 28.1 % (30.3-42.9); Mean Corpuscular HGB Conc 32 % (30-34); Mean Corpuscular Volume 80 fl (79-97); Platelet Count 225 K/mm3 (140-440); Red Blood Count 3.53 M/mm3 (3.65-5.03); Red Cell Distribution Width 14.6 % (13.2-15.2)
[2020-02-01] MEDS: HEPARIN 5,000 UNIT/1 ML VIAL SUB-Q SCH ×3 (06:00→21:29)
[2020-02-01 06:20] LABS: ABG Base Excess -11.2 mmol/L (-2.0-3.0); ABG HCO3 14.2 mmol/L (20.0-26.0); ABG Methemoglobin 0.7 % (0.0-1.5); ABG Oxygen Saturation 98.1 % (95.0-99.0); ABG PCO2 30.3 mm Hg; ABG PH 7.29 pH Units (7.350-7.450)
[2020-02-01] MEDS: SODIUM CHLORIDE 0.9% 250ML 250 ML ONE (08:08)
--- NOTE | 2020-02-01 08:41 | Progress Note ---
Assessment and Plan Assessment and plan: 29-year-old female with known history of diabetes mellitus presenting to the emergency room today complaining of pain on the right big toe. Patient had an injury to the right big toe about 2 to 3 weeks ago when an object fell on the toe. She has gone to an urgent care facility where she was given some antibiotics namely Bactrim to the right big toe wound. She has noticed that the wound has not improved and she has been having progressive pain. She denies any fever or chills, no nausea vomiting, no cough or shortness of breath, no chest pain. She denies any sick contacts and no recent travel. Work-up in the emergency room reveals hyperglycemia chest x-ray also reveals a left-sided pneumonia with accompanying sepsis. Patient started on empiric IV antibiotics. She is also given a tetanus vacc ination. Per the ED doctor the wound itself did not appear overtly superinfected. Although however the patient was tachycardic and febrile and as part of sepsis work-up as her labs indicated hyperglycemia with pseudohyponatremia, minimal anion gap acidosis, and a left-sided pulmonary infiltrate. Given the magnitude of her abnormal vital signs, concomitant diabetes, metabolic derangement, daily maciel meets criteria for hospitalization. We will treat her empirically for community-acquired pneumonia. She does not endorse any sick contacts or exposures to individuals with coronavirus. Nevertheless her test was sent and patient returned COVID positive. January 24 the patient results for COVID 19 came back positive. 01/28: In addition to treatment as noted below patient was noted to have indura cruz area in the left thigh, Concerning for abscess development. Will obtain CT of the lower extremity 01/29: Patient noted hypotensive. She is refusing her p.o. week to be placed she sustained a fall overnight while trying to walk to the bathroom. CT of the lower extremity still pending we will proceed with consult to surgeons. We will discontinue all blood pressure medications give a bolus of fluid while mindful of possible developing ARDS. We will also obtain repeated chest x-ray as patient appears more toxic today. 01/31: Patient reintubated about 30 minutes after surgical procedure due to decompensation with hypotension and hypoxemia despite 100% oxygen and CPAP. Patient remains currently on the vent. We will continue dialysis. While wirer helper assist with managing ventilator. We will continue to adjust blood sugar for better control. Patient is critically ill this has been conveyed to the family prior. COVID 19 induced pneumonia Acute on chronic respiratory failure with postoperative decompensation now requiring mechanical ventilation Acute metabolic encephalopathy Left thigh abscess status post I&D Multiple Organ Failure Severe Sepsis Diabetic foot wound nonhealing Morbid obesity hypoventilation syndrome Acute kidney injury secondary to vasomotor nephropathy Metabolic Acidosis Hypokalemia-resolved Presumed thigh abscess. Anemia Hyponatremia-resolving Diabetes mellitus with uncontrolled blood sugar Morbid obesity Hypertension monitor closely for septic shock Malnutrition: Decreased p.o. intake Severe Protein calorie Plan -Continue current work-up as dictated by infectious disease doctors will include Plaquenil and zinc combination. -Per surgery POD#1 s/p extensive I&D of left thigh abscess with sepsis and showing signs of multisystem organ insufficiency requiring ventilator support, possible dialysis, and vasopressers. wound vac was placed with wound care nurse. Next vac change scheduled for Tuesday. Continue abx and supportive care. -right-sided common femoral catheter placed for dialysis. -Very high inflammatory markers - ferritin [id number]. Ferritin elevated, CRP/LDH improving. Risk for cytokine storm secondary to COVID and high risk for ARDS -Patient may need to be on BiPAP if respiratory status is not improving and she continues to get weaker. -Continue vancomycin . -Follow culture from surgical procedure -Continue isolation and droplet precautions. Continuous pulse oximetry and telemetry. -Tight diabetic control -To the wound care -MRI of the right foot outpatient deferred due to COVID 19 treatment and nonem ergent at this time -Replace electrolytes as needed -Obtain serial Ferritin, LDH, D-Dimer, CRP every 48h -Daily EKG - QT monitoring - stop plaqenil if QT interval >500 -Obtain IL-6 (sent out) to evaluate cytokine release syndrome due to COVID and consider IV tocilizumab (Actemra) (off-label use) -Weight loss recommendations on discharge Family updated The high probability of a clinically significant, sudden or life threatening deterioration of the [pulmonary, renal, ] system(s) required my full and direct attention, intervention and personal management. The aggregate critical care time was [35] minutes. This time is in addition to time spent performing reported procedures but includes the following: [x] Data Review and interpretation [x] Patient assessment and monitoring of vital signs [x] Documentation [x] Medication orders and management History Interval history: Patient seen and examined intubated overnight post i/d Hospitalist Physical - Physical exam Narrative exam: VITAL SIGNS: Reviewed. GENERAL: The patient appears normally developed, on mechanical ventilator Vital signs as documented. HEAD: No signs of head trauma. EYES: unable to examin MOUTH: ETT in place CHEST: unable to examin, observed from window rise of chest wall CARDIAC: unable to examin, telemetry denotes, SR MUSCULOSKELETAL: dressing around site of I/D Extremities without clubbing, cyanosis +edema. NEUROLOGIC EXAM: SEDATED Exam is limited due to PPE deficiency. - Constitutional Vitals: Temp Pulse Resp BP Pulse Ox 98.9 F 92 H 25 H 96/47 100 02/01/20 03:29 02/01/20 08:31 02/01/20 08:01 02/01/20 08:31 02/01/20 08:31 General appearance: Present: no acute distress Results - Labs CBC & Chem 7: 02/01/20 03:49 02/01/20 03:49 Labs: Laboratory Last Values WBC 19.3 K/mm3 (4.5-11.0) H 02/01/20 03:49 RBC 3.53 M/mm3 (3.65-5.03) L 02/01/20 03:49 Hgb 9.0 gm/dl (10.1-14.3) L 02/01/20 03:49 Hct 28.1 % (30.3-42.9) L 02/01/20 03:49 MCV 80 fl (79-97) 02/01/20 03:49 MCH 26 pg (28-32) L 02/01/20 03:49 MCHC 32 % (30-34) 02/01/20 03:49 RDW 14.6 % (13.2-15.2) 02/01/20 03:49 Plt Count 225 K/mm3 (140-440) 02/01/20 03:49 Lymph % (Auto) 16.6 % (13.4-35.0) 01/18/20 08:30 [place] % (Auto) 2.8 % (0.0-7.3) 01/18/20 08:30 Eos % (Auto) 0.1 % (0.0-4.3) 01/18/20 08:30 Baso % (Auto) 0.4 % (0.0-1.8) 01/18/20 08:30 Lymph # 1.2 K/mm3 (1.2-5.4) 01/18/20 08:30 [place] # 0.2 K/mm3 (0.0-0.8) 01/18/20 08:30 Eos # 0.0 K/mm3 (0.0-0.4) 01/18/20 08:30 Baso # 0.0 K/mm3 (0.0-0.1) 01/18/20 08:30 Add Manual Diff Complete 01/26/20 05:40 Total Counted 100 01/26/20 05:40 Seg Neutrophils % Surveying Technician 01/26/20 05:40 Seg Neuts % (Manual) 90.0 % (40.0-70.0) H 01/26/20 05:40 Band Neutrophils % 5.0 % 01/26/20 05:40 Lymphocytes % (Manual) 1.0 % (13.4-35.0) L 01/26/20 05:40 Reactive Lymphs % (Man) 0 % 01/26/20 05:40 Monocytes % (Manual) 2.0 % (0.0-7.3) 01/26/20 05:40 Eosinophils % (Manual) 2.0 % (0.0-4.3) 01/26/20 05:40 Basophils % (Manual) 0 % (0.0-1.8) 01/26/20 05:40 Metamyelocytes % 0 % 01/26/20 05:40 Myelocytes % 0 % 01/26/20 05:40 Promyelocytes % 0 % 01/26/20 05:40 Blast Cells % 0 % 01/26/20 05:40 Nucleated RBC % 1.0 % (0.0-0.9) H 01/26/20 05:40 Seg Neutrophils # 5.9 K/mm3 (1.8-7.7) 01/18/20 08:30 Seg Neutrophils # Man 14.8 K/mm3 (1.8-7.7) H 01/26/20 05:40 Band Neutrophils # 0.8 K/mm3 01/26/20 05:40 Lymphocytes # (Manual) 0.2 K/mm3 (1.2-5.4) L 01/26/20 05:40 Abs React Lymphs (Man) 0.0 K/mm3 01/26/20 05:40 Monocytes # (Manual) 0.3 K/mm3 (0.0-0.8) 01/26/20 05:40 Eosinophils # (Manual) 0.3 K/mm3 (0.0-0.4) 01/26/20 05:40 Basophils # (Manual) 0.0 K/mm3 (0.0-0.1) 01/26/20 05:40 Metamyelocytes # 0.0 K/mm3 01/26/20 05:40 Myelocytes # 0.0 K/mm3 01/26/20 05:40 Promyelocytes # 0.0 K/mm3 01/26/20 05:40 Blast Cells # 0.0 K/mm3 01/26/20 05:40 WBC Morphology Not Reportable 01/26/20 05:40 Hypersegmented Neuts Not Reportable 01/26/20 05:40 Hyposegmented Neuts Not Reportable 01/26/20 05:40 Hypogranular Neuts Not Reportable 01/26/20 05:40 Smudge Cells Not Reportable 01/26/20 05:40 Toxic Granulation Not Reportable 01/26/20 05:40 Toxic Vacuolation Not Reportable 01/26/20 05:40 Dohle Bodies Not Reportable 01/26/20 05:40 Pelger-Huet Anomaly Not Reportable 01/26/20 05:40 Barbie Rods Not Reportable 01/26/20 05:40 Platelet Estimate Consistent w auto 01/26/20 05:40 Clumped Platelets Not Reportable 01/26/20 05:40 Plt Clumps, EDTA Not Reportable 01/26/20 05:40 Large Platelets Not Reportable 01/26/20 05:40 Giant Platelets Not Reportable 01/26/20 05:40 Platelet Satelliting Not Reportable 01/26/20 05:40 Plt Morphology Comment Not Reportable 01/26/20 05:40 RBC Morphology Normal 01/26/20 05:40 Dimorphic RBCs Not Reportable 01/26/20 05:40 Polychromasia Not Reportable 01/26/20 05:40 Hypochromasia Not Reportable 01/26/20 05:40 Poikilocytosis Not Reportable 01/26/20 05:40 Anisocytosis Not Reportable 01/26/20 05:40 Microcytosis Not Reportable 01/26/20 05:40 Macrocytosis Not Reportable 01/26/20 05:40 Spherocytes Not Reportable 01/26/20 05:40 Pappenheimer Bodies Not Reportable 01/26/20 05:40 Sickle Cells Not Reportable 01/26/20 05:40 Target Cells Not Reportable 01/26/20 05:40 Tear Drop Cells Not Reportable 01/26/20 05:40 Ovalocytes Not Reportable 01/26/20 05:40 Helmet Cells Not Reportable 01/26/20 05:40 [place] Bodies Not Reportable 01/26/20 05:40 [place] Rings Not Reportable 01/26/20 05:40 [place] Cells Not Reportable 01/26/20 05:40 Bite Cells Not Reportable 01/26/20 05:40 Crenated Cell Not Reportable 01/26/20 05:40 Elliptocytes Not Reportable 01/26/20 05:40 Acanthocytes (Spur) Not Reportable 01/26/20 05:40 Rouleaux Not Reportable 01/26/20 05:40 Hemoglobin C Crystals Not Reportable 01/26/20 05:40 Schistocytes Not Reportable 01/26/20 05:40 Malaria parasites Not Reportable 01/26/20 05:40 ESR 70 mm/Hr (0-20) 01/17/20 22:58 Ras Bodies Not Reportable 01/26/20 05:40 Hem Pathologist Commnt No 01/26/20 05:40 PT 15.6 Sec. (12.2-14.9) H 01/17/20 18:28 INR 1.22 (0.87-1.13) H 01/17/20 18:28 D-Dimer 801.37 ng/mlDDU (0-234) H 01/31/20 03:49 ABG pH 7.290 pH Units (7.350-7.450) L 02/01/20 04:30 ABG pCO2 30.3 mm Hg 02/01/20 04:30 ABG pO2 120.0 mm Hg (80.0-90.0) H 02/01/20 04:30 ABG HCO3 14.2 mmol/L (20.0-26.0) L 02/01/20 04:30 ABG O2 Saturation 98.1 % (95.0-99.0) 02/01/20 04:30 ABG O2 Content 12.8 (0.0-44) 02/01/20 04:30 ABG Base Excess -11.2 mmol/L (-2.0-3.0) L 02/01/20 04:30 ABG Hemoglobin 9.3 gm/dl (12.0-16.0) L 02/01/20 04:30 ABG Carboxyhemoglobin 1.4 % (0.0-5.0) 02/01/20 04:30 ABG Methemoglobin 0.7 % (0.0-1.5) 02/01/20 04:30 VBG pH 7.409 (7.320-7.420) 01/17/20 18:28 Oxyhemoglobin 96.1 % (95.0-99.0) 02/01/20 04:30 FiO2 50 % 02/01/20 04:30 Sodium 135 mmol/L (137-145) L 02/01/20 03:49 Potassium 4.6 mmol/L (3.6-5.0) 02/01/20 03:49 Chloride 100.9 mmol/L (98-107) 02/01/20 03:49 Carbon Dioxide 13 mmol/L (22-30) L 02/01/20 03:49 Anion Gap 26 mmol/L 02/01/20 03:49 BUN 79 mg/dL (7-17) H 02/01/20 03:49 Creatinine 4.1 mg/dL (0.7-1.2) H 02/01/20 03:49 Estimated GFR 15 ml/min 02/01/20 03:49 BUN/Creatinine Ratio 19 % 02/01/20 03:49 Glucose 198 mg/dL (65-100) H 02/01/20 03:49 POC Glucose 179 (70-105) H 01/31/20 21:37 Hemoglobin A1c 11.6 % (4-6) H 01/18/20 12:47 Lactic Acid 1.30 mmol/L (0.7-2.0) 01/18/20 08:30 Calcium 7.0 mg/dL (8.4-10.2) L 02/01/20 03:49 Magnesium 1.50 mg/dL (1.7-2.3) L 01/17/20 22:58 Ferritin 3101.0 ng/mL (13.0-400.0) H 01/31/20 03:49 Total Bilirubin 0.50 mg/dL (0.1-1.2) 01/31/20 03:49 AST 112 units/L (5-40) H 01/31/20 03:49 ALT 112 units/L (7-56) H 01/31/20 03:49 Alkaline Phosphatase 145 units/L (35-129) H 01/31/20 03:49 Lactate Dehydrogenase 896 units/L (91-180) H 01/31/20 03:49 Total Creatine Kinase 122 units/L (30-135) 01/17/20 22:58 C-Reactive Protein 11.10 mg/dL (0.00-1.30) H 01/31/20 03:49 Total Protein 5.5 g/dL (6.3-8.2) L 01/31/20 03:49 Albumin 1.7 g/dL (3.9-5) L 01/31/20 03:49 Albumin/Globulin Ratio 0.4 % 01/31/20 03:49 Procalcitonin 0.27 ng/mL (<0.15) 01/23/20 10:36 HCG, Qual Negative (Negative) 01/31/20 03:49 Urine Color Yellow (Yellow) 01/18/20 00:32 Urine Turbidity Slightly-cloudy (Clear) 01/18/20 00:32 Urine pH 5.0 (5.0-7.0) 01/18/20 00:32 Ur Specific [place] 1.011 (1.003-1.030) 01/18/20 00:32 Urine Protein 100 mg/dl mg/dL (Negative) 01/18/20 00:32 Urine Glucose (UA) >=500 mg/dL (Negative) 01/18/20 00:32 Urine Ketones Tr mg/dL (Negative) 01/18/20 00:32 Urine Blood Neg (Negative) 01/18/20 00:32 Urine Nitrite Neg (Negative) 01/18/20 00:32 Urine Bilirubin Neg (Negative) 01/18/20 00:32 Urine Urobilinogen < 2.0 mg/dL (<2.0) 01/18/20 00:32 Ur Leukocyte Esterase Neg (Negative) 01/18/20 00:32 Urine WBC (Auto) 2.0 /HPF (0.0-6.0) 01/18/20 00:32 Urine RBC (Auto) 4.0 /HPF (0.0-6.0) 01/18/20 00:32 U Epithel Cells (Auto) 2.0 /HPF (0-13.0) 01/18/20 00:32 Hyaline Casts 1 /LPF 01/18/20 00:32 Urine Mucus Few /HPF 01/18/20 00:32 Urine Yeast (Budding) Few /HPF 01/18/20 00:32 Vancomycin Trough 45.4 ug/mL (5.0-20.0) H 01/30/20 05:19 Random Vancomycin 30.6 ug/mL (0-40.0) 02/01/20 03:49 Influenza A (Rapid) Negative (Negative) 01/19/20 01:10 Influenza B (Rapid) Negative (Negative) 01/19/20 01:10 AFB Identification 01/20/20 04:00 Miscellaneous Test See scanned result 01/18/20 Unknown Microbiology: Microbiology 01/31/20 Unknown Thigh - Left Surgical Biopsy Culture - Preliminary Goldstein/IV: Voiding Method Incontinent IV Catheter Type [right ac] Peripheral IV IV Catheter Type [Right vascath Femoral] IV Catheter Type [Right Peripheral IV Forearm] IV Catheter Type [Right Wrist] INT / Saline Lock IV Catheter Type [Right Hand] INT / Saline Lock IV Catheter Type [Right Upper INT / Saline Lock arm] IV Catheter Type [Left Hand] INT / Saline Lock Active Medications - Current Medications Current Medications: Generic Name Dose Route Start Last Admin Trade Name Freq PRN Reason Stop Dose Admin Acetaminophen 650 mg 01/17/20 23:06 01/29/20 22:43 Tylenol PO 650 mg Q4H PRN Administration Pain MILD(1-3)/Fever >100.5/COLLINS Dextrose 0 ml 01/17/20 23:06 D50w (25gm) Syringe IV Q30MIN PRN Hypoglycemia Protocol Famotidine 20 mg 01/24/20 10:00 01/31/20 11:08 Pepcid PO Not Given QDAY COBY Fentanyl 50 mcg 01/31/20 21:48 Sublimaze IV Q10MIN PRN ANALGESIA Heparin Sodium (Porcine) 5,000 unit 01/18/20 06:00 02/01/20 06:00 Heparin SUB-Q 5,000 unit Q8HR COBY Administration Hydralazine HCl 10 mg 01/18/20 22:14 01/22/20 18:43 Apresoline IV 10 mg Q6H PRN Administration Hypertension Hydrophilic Ointment 1 applic 01/31/20 21:48 Vaseline Lip Therapy TP Q2HR PRN Dry Lips Hydroxychloroquine Sulfate 200 mg 01/28/20 23:00 01/31/20 22:57 Plaquenil PO 02/01/20 22:59 200 mg BID COBY Administration Cefepime HCl 2 gm in 100 mls @ 200 mls/hr 01/29/20 10:00 01/31/20 12:58 Cefepime/Ns 2 Gm/100 Ml IV 200 mls/hr Q24HR COBY Administration Protocol Sodium Chloride 100 mls @ 999 mls/hr 01/31/20 07:12 Nacl 0.9% IV KIRSTEN PRN Hypotension Fentanyl Citrate 2,000 mcg in 100 mls @ 7.395 mls/hr 01/31/20 22:00 01/31/20 23:10 Fentanyl Drip Premix IV 1 mcg/kg/hr TITR COBY 7.395 mls/hr Titration Protocol 1 MCG/KG/HR Norepinephrine 4 mg in 250 mls @ 7.5 mls/hr 01/31/20 23:45 02/01/20 06:45 Levophed Drip 4 Mg/Ns 250 Ml IV 12 mcg/min TITR COBY 45 mls/hr Titration Protocol 2 MCG/MIN Insulin Human Isoph/Insulin Regular 12 unit 01/25/20 09:00 01/31/20 18:04 Humulin 70/30 SUB-Q Not Given BIDDIAB [facility] Insulin Human Regular 0 units 02/01/20 12:00 Humulin R SUB-Q Q6HR [facility] Protocol Magnesium Hydroxide 30 ml 01/17/20 23:06 Milk Of Magnesia PO Q4H PRN Constipation Morphine Sulfate 2 mg 01/17/20 23:06 01/30/20 20:39 Morphine IV 2 mg Q4H PRN Administration Pain, Moderate (4-6) Multi-Ingred Cream/Lotion/Oil/Oint 1 applic 01/31/20 21:48 Artificial Tears Ophth Oint OU Q4HR PRN Dry Eye(s) Nystatin 1 applic 01/29/20 14:00 01/31/20 22:56 Nystop TP 1 applic BID COBY Administration Ondansetron HCl 4 mg 01/17/20 23:06 01/30/20 20:47 Zofran IV 4 mg Q8H PRN Administration Nausea And Vomiting Sodium Bicarbonate 1,300 mg 01/29/20 22:00 01/31/20 22:56 Sodium Bicarbonate PO 1,300 mg BID COBY Administration Sodium Chloride 10 ml 01/18/20 10:00 01/31/20 22:59 Sodium Chloride Flush Syringe 10 Ml IV 10 ml BID COBY Administration Sodium Chloride 10 ml 01/17/20 23:06 Sodium Chloride Flush Syringe 10 Ml IV PRN PRN LINE FLUSH Zinc Sulfate 220 mg 01/29/20 12:00 01/31/20 17:07 Zinc Sulfate PO 02/01/20 20:00 Not Given DAILY@1200 [facility] Nutrition/Malnutrition Assess - Dietary Evaluation Nutrition/Malnutrition Findings: Nutrition Notes Start: 01/18/20 13:13 Freq: Status: Active Protocol: Document 01/31/20 13:40 LM (Rec: 01/31/20 13:48 LM [id number]) Nutrition Notes Initial or Follow up Brief Note Current Diagnosis Diabetes,Sepsis Other Pertinent Diagnosis COVID-19 positive, LEV pnue, ( R) great toe wound Current Diet NPO Labs/Tests Na 134 BUN 97 Cr 4.8 Pertinent Medications NaCl at 125ml/hr Height 6 ft Weight 147.9 kg [place] Body Weight (kg) 72.72 BMI 44.1 Weight change and time frame wt gain notes Weight Status Morbidly Obese Subjective/Other Information Unable to speak to pt. Per RN notes pt in labor operator for procedure. Noticed 0% intakes in chart recordeed yesterday. Percent of energy/protein needs met: 0%/0% Burn Absent Trauma Absent Minimum of two criteria No physical signs of malnutrition #2 Nutrition Diagnosis Inadequate protein-energy intake Diagnosis Progress(for reassessment Continues documentation) #1 Nutrition Diagnosis Increased nutrient needs ( specify in comment below) Diagnosis Progress(for reassessment Continues documentation) Is patient on ventilator? No Is Patient Ambulatory and/or Out of Bed Yes REE-([place]-St. Jeor-ambulatory/OOB) [ [id number] [id number]] Kcal/Kg value to use for calculation 14 Approximate Energy Requirements Using 1 kcal/Kg Calculation Used for Recommendations Kcal/kg Additional Notes Pro needs 1.25-1.5g/kg adjBW: 134-161g/day Fluid needs 1ml/kcal Nutrition Intervention Change Diet Order: diet advancement when medically feasuble Goal #1 diet advancement Anticipated Discharge Needs: consistent CHO Follow-Up By: 02/04/20 Additional Comments F/U for diet advancement/ intakes, ONS needs
[2020-02-01] MEDS: HYDROXYCHLOROQUINE 200 MG TAB PO SCH ×2 (09:06→21:30)
[2020-02-01] MEDS: FAMOTIDINE 20 MG TAB PO SCH (09:06)
[2020-02-01] MEDS: NYSTATIN POWDER 15 GM TP SCH ×2 (09:06→21:30)
[2020-02-01] MEDS: SODIUM BICARBONATE 650 MG TAB PO SCH (09:06)
[2020-02-01] MEDS: CEFEPIME/NS 2 GM/100 ML 2 GM/100 ML BAG IV SCH (09:07)
[2020-02-01] MEDS: fentaNYL DRIP Premix 2,000 MCG/100 ML BAG IV SCH (09:35)
[2020-02-01] MEDS ORDERED: SODIUM BICARBONATE 325 MG TAB FEEDTUBE PRN (09:53)
[2020-02-01] MEDS ORDERED: SIMPLE SYRUP 15 ML FEEDTUBE PRN ×2 (09:53)
[2020-02-01] MEDS ORDERED: LIPASE 10,500/PROTEASE 25,000/AMYLASE 43,750 (UNITS) DR CAP FEEDTUBE PRN (09:53)
[2020-02-01] MEDS: INSULIN NPH/REGULAR 70/30 INJ SUB-Q SCH ×2 (10:08→17:52)
[2020-02-01] MEDS ORDERED: SODIUM CHLORIDE 0.9% 100 ML IV PRN (10:26)
--- NOTE | 2020-02-01 10:37 | Progress Note ---
Assessment and Plan Severe Sepsis with septic shock; SOFA >2 Acute hypoxemic respiratory failure on MVS Left upper lobe pneumonia ; COVID 19 induced pneumonia Diabetes II Morbid obesity Febrile illness POSITIVE COVID-19 infection Diabetic foot ulcer Lactic acidosis CIPRIANO-secondary to ATN, vasomotor nephropathy on HD Thigh abscess s/p I and D -VAP bundle addressed -Lung protective measures, Monitor airway pressures -Wean vasopressor support for MAP>65 -Daily SAT and SBT as tolerated and per protocol -Titrate sedation to RASS of -1 -Adjust minute ventilation for better gas exchange, give 2 amps of Bicarbonate- pH 7.2 -Increase RR to 30, follow up ABG at 2pm -Very high inflammatory markers - ferritin 2758; CRP/LDH Risk for cytokine storm secondary to COVID and high risk for ARDS -Serial Ferritin, LDH, D-Dimer, CRP every 48h -Daily EKG - QT monitoring - stop plaqenil if QT interval >500 -Recommend the discontinuation of Vancomycin and use of other antibiotics that cover MRSA- Anecdotal evidence that COVID 19 patients appear to do worse with Vancomycin -Conservative fluid management- use vasopressors including midodrine to support blood pressure. -ABG, CXR in am -Aspiration precautions, HOB >40 -Accuchecks with glycemic control, keep blood glucose 140-180 mg/dL while critically ill -Avoid hypoglycemia -Avoid nephrotoxins, adjust and dose all medications for GFR and CrCL -Supportive HD per renal service -VTE prophylaxis- heparin -Stress ulcer prophylaxis- Famotidine -Wound care per Surgery service -Replace electrolytes as needed -Obtain IL-6 (sent out) to evaluate cytokine release syndrome due to COVID and consider IV tocilizumab (Actemra) (off-label use)- per ID recommendations -COVID-19 precautions per [facility] protocol -All other care per Attending and consultants CONDITION: CRITICAL PROGNOSIS: GUARDED CODE STATUS: FULL CODE The high probability of a clinically significant, sudden or life threatening deterioration of the pulmonary, cardiovascular, renal, neurology, system(s) required my full and direct attention, intervention and personal management. The aggregate critical care time was [45] minutes. This time is in addition to time spent performing reported procedures but includes the following: [x] Data Review and interpretation [x] Patient assessment and monitoring of vital signs [x] Documentation [x] Medication orders and management Subjective Date of service: 02/01/20 Principal diagnosis: Severe Sepsis; LEV PNA; DM II; Morbid obesity; R/O COVID-19 infection Interval history: Patient is seen today for: Severe Sepsis with septic shock ; LEV pneumonia; Acute hypoxemic respiratory failure on MVS; Diabetes II; Morbid obesity; Febrile illness; POSITIVE COVID-19 infection; Diabetic foot ulcer; Hyponatremia; Lactic acidosis Seen and examined at bedside; 24hour events reviewed; nursing and respiratory care staff consulted; no adverse overnight events reported to me; POD#1 s/p extensive I&D of left thigh abscess with sepsis and showing signs of multi-system organ failure; critically ill orally intubated on MVS; on HD , and vasopressor support. Norepinephrine at 14mcg; Fentanyl at 1mcg. No urine output, has a right femoral trialysis catheter. Currently on Zosyn, received one dose of Vancomycin- therapeutic level is markedly increased. pH 7.29- metabolic acidosis. Vitals, labs, medications, chart and imaging reviewed. Objective Vital Signs - 12hr 01/31/20 01/31/20 01/31/20 22:45 23:00 23:15 Temperature Pulse Rate 92 H 89 88 Respiratory 30 H 27 H 23 Rate Blood Pressure 118/68 118/65 113/59 O2 Sat by Pulse 99 99 99 Oximetry 01/31/20 01/31/20 02/01/20 23:31 23:45 00:00 Temperature 98.8 F Pulse Rate 82 82 81 Respiratory 22 21 20 Rate Blood Pressure 95/51 92/52 90/49 O2 Sat by Pulse 100 100 100 Oximetry 02/01/20 02/01/20 02/01/20 00:15 00:30 00:45 Temperature Pulse Rate 81 82 80 Respiratory 20 20 26 H Rate Blood Pressure 94/50 95/51 96/49 O2 Sat by Pulse 100 100 100 Oximetry 02/01/20 02/01/20 02/01/20 01:00 01:15 01:30 Temperature Pulse Rate 80 80 82 Respiratory 25 H 25 H 25 H Rate Blood Pressure 94/52 99/53 108/62 O2 Sat by Pulse 100 100 100 Oximetry 02/01/20 02/01/20 02/01/20 01:45 02:00 02:15 Temperature Pulse Rate 79 82 81 Respiratory 25 H 25 H 25 H Rate Blood Pressure 106/53 98/52 92/50 O2 Sat by Pulse 100 100 100 Oximetry 02/01/20 02/01/20 02/01/20 02:30 02:45 03:00 Temperature Pulse Rate 81 80 79 Respiratory 25 H 25 H 25 H Rate Blood Pressure 82/42 77/40 86/40 O2 Sat by Pulse 100 100 100 Oximetry 02/01/20 02/01/20 02/01/20 03:15 03:29 03:30 Temperature 98.9 F Pulse Rate 79 79 Respiratory 25 H 25 H Rate Blood Pressure 90/46 92/49 O2 Sat by Pulse 100 100 Oximetry 02/01/20 02/01/20 02/01/20 03:45 04:01 04:15 Temperature Pulse Rate 79 82 80 Respiratory 24 25 H 25 H Rate Blood Pressure 88/46 98/53 93/46 O2 Sat by Pulse 100 100 100 Oximetry 02/01/20 02/01/20 02/01/20 04:30 04:45 05:00 Temperature Pulse Rate 80 80 80 Respiratory 25 H 25 H 25 H Rate Blood Pressure 93/47 91/44 93/46 O2 Sat by Pulse 100 100 100 Oximetry 02/01/20 02/01/20 02/01/20 05:15 05:30 05:35 Temperature Pulse Rate 80 81 80 Respiratory 25 H 25 H Rate Blood Pressure 91/45 97/46 O2 Sat by Pulse 100 100 100 Oximetry 02/01/20 02/01/20 02/01/20 05:45 06:01 06:15 Temperature Pulse Rate 81 82 82 Respiratory 25 H 25 H 25 H Rate Blood Pressure 90/48 96/46 96/48 O2 Sat by Pulse 100 100 100 Oximetry 02/01/20 02/01/20 02/01/20 06:30 06:45 07:00 Temperature Pulse Rate 82 83 82 Respiratory 25 H 25 H 26 H Rate Blood Pressure 92/48 83/40 84/39 O2 Sat by Pulse 100 100 100 Oximetry 02/01/20 02/01/20 02/01/20 07:15 07:30 07:45 Temperature Pulse Rate 81 82 83 Respiratory 25 H 25 H 25 H Rate Blood Pressure 92/48 96/48 96/47 O2 Sat by Pulse 100 100 100 Oximetry 02/01/20 02/01/20 02/01/20 08:01 08:15 08:31 Temperature Pulse Rate 92 H 92 H 86 Respiratory 25 H 29 H 25 H Rate Blood Pressure 96/47 96/47 96/47 O2 Sat by Pulse 100 100 Oximetry 02/01/20 02/01/20 02/01/20 08:45 09:01 09:15 Temperature Pulse Rate 84 85 88 Respiratory 25 H 25 H 26 H Rate Blood Pressure 81/38 103/48 111/56 O2 Sat by Pulse 100 99 Oximetry 02/01/20 02/01/20 02/01/20 09:30 09:45 10:01 Temperature Pulse Rate 90 84 84 Respiratory 20 25 H 25 H Rate Blood Pressure 101/61 103/53 102/50 O2 Sat by Pulse 98 98 99 Oximetry 02/01/20 10:15 Temperature Pulse Rate 85 Respiratory 25 H Rate Blood Pressure 98/47 O2 Sat by Pulse 99 Oximetry Constitutional: other (young obese AAF, normocephalic, orally intubated on MVS) Eyes: non-icteric ENT: oropharynx dry Neck: supple, no lymphadenopathy, no JVD Effort: mildly labored Ascultation: Bilateral: diminished breath sounds, rales (scant in bases) Percussion: Bilateral: not dull Cardiovascular: regular rate and rhythm, other (S1,S2) Gastrointestinal: normoactive bowel sounds, soft, non-tender, non-distended Integumentary: other (Thigh abscess s/p I and D) Extremities: no cyanosis, no edema, pulses normal, no ischemia or petechiae Neurologic: pupils equal and round, other (sedated, encephalopathic) Psychiatric: other (unable to assess) CBC and BMP: 02/02/20 04:30 02/02/20 04:30 ABG, PT/INR, D-dimer: ABG ABG pH 7.290 pH Units (7.350-7.450) L 02/01/20 04:30 ABG pCO2 30.3 mm Hg 02/01/20 04:30 ABG pO2 120.0 mm Hg (80.0-90.0) H 02/01/20 04:30 ABG O2 Saturation 98.1 % (95.0-99.0) 02/01/20 04:30 PT/INR, D-dimer PT 15.6 Sec. (12.2-14.9) H 01/17/20 18:28 INR 1.22 (0.87-1.13) H 03/19/20 18:28 D-Dimer 801.37 ng/mlDDU (0-234) H 01/31/20 03:49 Abnormal lab findings: Abnormal Labs 01/17/20 01/17/20 01/17/20 18:28 18:28 18:28 WBC RBC Hgb Hct MCH 26 L RDW Lymph % (Auto) 9.3 L Lymph # 1.0 L Seg Neutrophils % 86.7 H Seg Neuts % (Manual) Lymphocytes % (Manual) Nucleated RBC % Seg Neutrophils # 9.6 H Seg Neutrophils # Man Lymphocytes # (Manual) PT 15.6 H INR 1.22 H D-Dimer ABG pH ABG pO2 ABG HCO3 ABG O2 Saturation ABG Base Excess ABG Hemoglobin Oxyhemoglobin Sodium 126 L Potassium Chloride 89.3 L Carbon Dioxide 19 L BUN Creatinine Glucose 397 H POC Glucose Hemoglobin A1c Lactic Acid Calcium Magnesium Ferritin AST ALT Alkaline Phosphatase Lactate Dehydrogenase C-Reactive Protein Total Protein 9.0 H Albumin Vancomycin Trough Random Vancomycin 01/17/20 01/17/20 01/17/20 18:28 22:58 22:58 WBC RBC Hgb Hct MCH RDW Lymph % (Auto) Lymph # Seg Neutrophils % Seg Neuts % (Manual) Lymphocytes % (Manual) Nucleated RBC % Seg Neutrophils # Seg Neutrophils # Man Lymphocytes # (Manual) PT INR D-Dimer ABG pH ABG pO2 ABG HCO3 ABG O2 Saturation ABG Base Excess ABG Hemoglobin Oxyhemoglobin Sodium Potassium Chloride Carbon Dioxide BUN Creatinine Glucose POC Glucose Hemoglobin A1c Lactic Acid 3.40 H* 2.30 H* Calcium Magnesium 1.50 L Ferritin AST ALT Alkaline Phosphatase Lactate Dehydrogenase C-Reactive Protein 16.60 H Total Protein Albumin Vancomycin Trough Random Vancomycin 01/18/20 01/18/20 01/18/20 00:46 06:34 08:30 WBC RBC Hgb Hct MCH 26 L RDW 12.7 L Lymph % (Auto) Lymph # Seg Neutrophils % 80.1 H Seg Neuts % (Manual) Lymphocytes % (Manual) Nucleated RBC % Seg Neutrophils # Seg Neutrophils # Man Lymphocytes # (Manual) PT INR D-Dimer ABG pH ABG pO2 ABG HCO3 ABG O2 Saturation ABG Base Excess ABG Hemoglobin Oxyhemoglobin Sodium Potassium Chloride Carbon Dioxide BUN Creatinine Glucose POC Glucose 338 H 266 H Hemoglobin A1c Lactic Acid Calcium Magnesium Ferritin AST ALT Alkaline Phosphatase Lactate Dehydrogenase C-Reactive Protein Total Protein Albumin Vancomycin Trough Random Vancomycin 01/18/20 01/18/20 01/18/20 08:30 08:35 12:30 WBC RBC Hgb Hct MCH RDW Lymph % (Auto) Lymph # Seg Neutrophils % Seg Neuts % (Manual) Lymphocytes % (Manual) Nucleated RBC % Seg Neutrophils # Seg Neutrophils # Man Lymphocytes # (Manual) PT INR D-Dimer ABG pH ABG pO2 ABG HCO3 ABG O2 Saturation ABG Base Excess ABG Hemoglobin Oxyhemoglobin Sodium 135 L D Potassium Chloride Carbon Dioxide BUN Creatinine Glucose 250 H POC Glucose 224 H 213 H Hemoglobin A1c Lactic Acid Calcium Magnesium Ferritin AST ALT Alkaline Phosphatase Lactate Dehydrogenase C-Reactive Protein Total Protein Albumin Vancomycin Trough Random Vancomycin 01/18/20 01/18/20 01/18/20 12:47 16:56 22:03 WBC RBC Hgb Hct MCH RDW Lymph % (Auto) Lymph # Seg Neutrophils % Seg Neuts % (Manual) Lymphocytes % (Manual) Nucleated RBC % Seg Neutrophils # Seg Neutrophils # Man Lymphocytes # (Manual) PT INR D-Dimer ABG pH ABG pO2 ABG HCO3 ABG O2 Saturation ABG Base Excess ABG Hemoglobin Oxyhemoglobin Sodium Potassium Chloride Carbon Dioxide BUN Creatinine Glucose POC Glucose 270 H 239 H Hemoglobin A1c 11.6 H Lactic Acid Calcium Magnesium Ferritin AST ALT Alkaline Phosphatase Lactate Dehydrogenase C-Reactive Protein Total Protein Albumin Vancomycin Trough Random Vancomycin 01/19/20 01/19/20 01/19/20 06:15 11:48 13:09 WBC RBC Hgb Hct MCH 26 L RDW Lymph % (Auto) Lymph # Seg Neutrophils % Seg Neuts % (Manual) Lymphocytes % (Manual) Nucleated RBC % Seg Neutrophils # Seg Neutrophils # Man Lymphocytes # (Manual) PT INR D-Dimer ABG pH ABG pO2 ABG HCO3 ABG O2 Saturation ABG Base Excess ABG Hemoglobin Oxyhemoglobin Sodium Potassium Chloride Carbon Dioxide BUN Creatinine Glucose POC Glucose 248 H 268 H Hemoglobin A1c Lactic Acid Calcium Magnesium Ferritin AST ALT Alkaline Phosphatase Lactate Dehydrogenase C-Reactive Protein Total Protein Albumin Vancomycin Trough Random Vancomycin 01/19/20 01/19/20 01/20/20 17:44 21:09 09:03 WBC RBC Hgb Hct MCH RDW Lymph % (Auto) Lymph # Seg Neutrophils % Seg Neuts % (Manual) Lymphocytes % (Manual) Nucleated RBC % Seg Neutrophils # Seg Neutrophils # Man Lymphocytes # (Manual) PT INR D-Dimer ABG pH ABG pO2 ABG HCO3 ABG O2 Saturation ABG Base Excess ABG Hemoglobin Oxyhemoglobin Sodium Potassium Chloride Carbon Dioxide BUN Creatinine Glucose POC Glucose 214 H 261 H 241 H Hemoglobin A1c Lactic Acid Calcium Magnesium Ferritin AST ALT Alkaline Phosphatase Lactate Dehydrogenase C-Reactive Protein Total Protein Albumin Vancomycin Trough Random Vancomycin 01/20/20 01/20/20 01/20/20 12:10 17:00 19:43 WBC RBC Hgb Hct MCH RDW Lymph % (Auto) Lymph # Seg Neutrophils % Seg Neuts % (Manual) Lymphocytes % (Manual) Nucleated RBC % Seg Neutrophils # Seg Neutrophils # Man Lymphocytes # (Manual) PT INR D-Dimer ABG pH ABG pO2 ABG HCO3 ABG O2 Saturation ABG Base Excess ABG Hemoglobin Oxyhemoglobin Sodium Potassium Chloride Carbon Dioxide BUN Creatinine Glucose POC Glucose 284 H 272 H Hemoglobin A1c Lactic Acid Calcium Magnesium Ferritin AST ALT Alkaline Phosphatase Lactate Dehydrogenase C-Reactive Protein Total Protein Albumin Vancomycin Trough 4.0 L Random Vancomycin 01/20/20 01/21/20 01/21/20 22:39 09:29 11:41 WBC RBC Hgb Hct MCH 26 L RDW Lymph % (Auto) Lymph # Seg Neutrophils % Seg Neuts % (Manual) Lymphocytes % (Manual) Nucleated RBC % Seg Neutrophils # Seg Neutrophils # Man Lymphocytes # (Manual) PT INR D-Dimer ABG pH ABG pO2 ABG HCO3 ABG O2 Saturation ABG Base Excess ABG Hemoglobin Oxyhemoglobin Sodium Potassium Chloride Carbon Dioxide BUN Creatinine Glucose POC Glucose 248 H 238 H Hemoglobin A1c Lactic Acid Calcium Magnesium Ferritin AST ALT Alkaline Phosphatase Lactate Dehydrogenase C-Reactive Protein Total Protein Albumin Vancomycin Trough Random Vancomycin 01/21/20 01/21/20 01/21/20 11:41 12:27 16:55 WBC RBC Hgb Hct MCH RDW Lymph % (Auto) Lymph # Seg Neutrophils % Seg Neuts % (Manual) Lymphocytes % (Manual) Nucleated RBC % Seg Neutrophils # Seg Neutrophils # Man Lymphocytes # (Manual) PT INR D-Dimer ABG pH ABG pO2 ABG HCO3 ABG O2 Saturation ABG Base Excess ABG Hemoglobin Oxyhemoglobin Sodium 132 L Potassium 3.5 L Chloride 97.0 L Carbon Dioxide 19 L BUN Creatinine Glucose 274 H POC Glucose 264 H 261 H Hemoglobin A1c Lactic Acid Calcium Magnesium Ferritin AST ALT Alkaline Phosphatase Lactate Dehydrogenase C-Reactive Protein Total Protein Albumin Vancomycin Trough Random Vancomycin 01/21/20 01/22/20 01/22/20 22:39 09:05 12:57 WBC RBC Hgb Hct MCH RDW Lymph % (Auto) Lymph # Seg Neutrophils % Seg Neuts % (Manual) Lymphocytes % (Manual) Nucleated RBC % Seg Neutrophils # Seg Neutrophils # Man Lymphocytes # (Manual) PT INR D-Dimer ABG pH ABG pO2 ABG HCO3 ABG O2 Saturation ABG Base Excess ABG Hemoglobin Oxyhemoglobin Sodium Potassium Chloride Carbon Dioxide BUN Creatinine Glucose POC Glucose 243 H 258 H 252 H Hemoglobin A1c Lactic Acid Calcium Magnesium Ferritin AST ALT Alkaline Phosphatase Lactate Dehydrogenase C-Reactive Protein Total Protein Albumin Vancomycin Trough Random Vancomycin 01/22/20 01/22/20 01/23/20 17:14 21:30 09:03 WBC RBC Hgb Hct MCH RDW Lymph % (Auto) Lymph # Seg Neutrophils % Seg Neuts % (Manual) Lymphocytes % (Manual) Nucleated RBC % Seg Neutrophils # Seg Neutrophils # Man Lymphocytes # (Manual) PT INR D-Dimer ABG pH ABG pO2 ABG HCO3 ABG O2 Saturation ABG Base Excess ABG Hemoglobin Oxyhemoglobin Sodium Potassium Chloride Carbon Dioxide BUN Creatinine Glucose POC Glucose 306 H 217 H 156 H Hemoglobin A1c Lactic Acid Calcium Magnesium Ferritin AST ALT Alkaline Phosphatase Lactate Dehydrogenase C-Reactive Protein Total Protein Albumin Vancomycin Trough Random Vancomycin 01/23/20 01/23/20 01/23/20 10:36 11:12 17:11 WBC RBC Hgb Hct MCH RDW Lymph % (Auto) Lymph # Seg Neutrophils % Seg Neuts % (Manual) Lymphocytes % (Manual) Nucleated RBC % Seg Neutrophils # Seg Neutrophils # Man Lymphocytes # (Manual) PT INR D-Dimer ABG pH ABG pO2 ABG HCO3 ABG O2 Saturation ABG Base Excess ABG Hemoglobin Oxyhemoglobin Sodium Potassium 3.0 L Chloride Carbon Dioxide 21 L BUN Creatinine Glucose 266 H POC Glucose 244 H 238 H Hemoglobin A1c Lactic Acid Calcium 8.3 L Magnesium Ferritin AST ALT Alkaline Phosphatase Lactate Dehydrogenase C-Reactive Protein Total Protein Albumin Vancomycin Trough Random Vancomycin 01/23/20 01/24/20 01/24/20 22:57 06:03 12:12 WBC RBC Hgb Hct MCH RDW Lymph % (Auto) Lymph # Seg Neutrophils % Seg Neuts % (Manual) Lymphocytes % (Manual) Nucleated RBC % Seg Neutrophils # Seg Neutrophils # Man Lymphocytes # (Manual) PT INR D-Dimer ABG pH ABG pO2 ABG HCO3 ABG O2 Saturation ABG Base Excess ABG Hemoglobin Oxyhemoglobin Sodium Potassium 3.2 L Chloride Carbon Dioxide 19 L BUN Creatinine Glucose 231 H POC Glucose 228 H 210 H Hemoglobin A1c Lactic Acid Calcium 8.2 L Magnesium Ferritin AST ALT Alkaline Phosphatase Lactate Dehydrogenase C-Reactive Protein Total Protein Albumin Vancomycin Trough Random Vancomycin 01/24/20 01/24/20 01/24/20 12:50 19:01 21:49 WBC RBC Hgb Hct MCH RDW Lymph % (Auto) Lymph # Seg Neutrophils % Seg Neuts % (Manual) Lymphocytes % (Manual) Nucleated RBC % Seg Neutrophils # Seg Neutrophils # Man Lymphocytes # (Manual) PT INR D-Dimer ABG pH 7.485 H ABG pO2 63.4 L ABG HCO3 ABG O2 Saturation ABG Base Excess ABG Hemoglobin 5.0 L Oxyhemoglobin Sodium Potassium Chloride Carbon Dioxide BUN Creatinine Glucose POC Glucose 183 H 193 H Hemoglobin A1c Lactic Acid Calcium Magnesium Ferritin AST ALT Alkaline Phosphatase Lactate Dehydrogenase C-Reactive Protein Total Protein Albumin Vancomycin Trough Random Vancomycin 01/25/20 01/25/20 01/25/20 09:13 16:58 22:23 WBC RBC Hgb Hct MCH RDW Lymph % (Auto) Lymph # Seg Neutrophils % Seg Neuts % (Manual) Lymphocytes % (Manual) Nucleated RBC % Seg Neutrophils # Seg Neutrophils # Man Lymphocytes # (Manual) PT INR D-Dimer ABG pH ABG pO2 ABG HCO3 ABG O2 Saturation ABG Base Excess ABG Hemoglobin Oxyhemoglobin Sodium Potassium Chloride Carbon Dioxide BUN Creatinine Glucose POC Glucose 196 H 231 H 159 H Hemoglobin A1c Lactic Acid Calcium Magnesium Ferritin AST ALT Alkaline Phosphatase Lactate Dehydrogenase C-Reactive Protein Total Protein Albumin Vancomycin Trough Random Vancomycin 01/26/20 01/26/20 01/26/20 05:40 05:40 05:40 WBC 16.4 H RBC Hgb Hct MCH 26 L RDW 12.9 L Lymph % (Auto) Lymph # Seg Neutrophils % Seg Neuts % (Manual) 90.0 H Lymphocytes % (Manual) 1.0 L Nucleated RBC % 1.0 H Seg Neutrophils # Seg Neutrophils # Man 14.8 H Lymphocytes # (Manual) 0.2 L PT INR D-Dimer 2624.11 H ABG pH ABG pO2 ABG HCO3 ABG O2 Saturation ABG Base Excess ABG Hemoglobin Oxyhemoglobin Sodium 135 L Potassium 2.7 L* Chloride Carbon Dioxide 21 L BUN Creatinine Glucose 132 H POC Glucose Hemoglobin A1c Lactic Acid Calcium 8.0 L Magnesium Ferritin AST ALT Alkaline Phosphatase Lactate Dehydrogenase C-Reactive Protein Total Protein Albumin Vancomycin Trough Random Vancomycin 01/26/20 01/26/20 01/26/20 05:40 05:40 08:58 WBC RBC Hgb Hct MCH RDW Lymph % (Auto) Lymph # Seg Neutrophils % Seg Neuts % (Manual) Lymphocytes % (Manual) Nucleated RBC % Seg Neutrophils # Seg Neutrophils # Man Lymphocytes # (Manual) PT INR D-Dimer ABG pH ABG pO2 ABG HCO3 ABG O2 Saturation ABG Base Excess ABG Hemoglobin Oxyhemoglobin Sodium Potassium Chloride Carbon Dioxide BUN Creatinine Glucose POC Glucose 131 H Hemoglobin A1c Lactic Acid Calcium Magnesium Ferritin 2758.0 H AST ALT Alkaline Phosphatase Lactate Dehydrogenase C-Reactive Protein 26.90 H Total Protein Albumin Vancomycin Trough Random Vancomycin 01/26/20 01/26/20 01/26/20 13:00 16:30 21:22 WBC RBC Hgb Hct MCH RDW Lymph % (Auto) Lymph # Seg Neutrophils % Seg Neuts % (Manual) Lymphocytes % (Manual) Nucleated RBC % Seg Neutrophils # Seg Neutrophils # Man Lymphocytes # (Manual) PT INR D-Dimer ABG pH ABG pO2 ABG HCO3 ABG O2 Saturation ABG Base Excess ABG Hemoglobin Oxyhemoglobin Sodium Potassium Chloride Carbon Dioxide BUN Creatinine Glucose POC Glucose 136 H 146 H 139 H Hemoglobin A1c Lactic Acid Calcium Magnesium Ferritin AST ALT Alkaline Phosphatase Lactate Dehydrogenase C-Reactive Protein Total Protein Albumin Vancomycin Trough Random Vancomycin 01/27/20 01/27/20 01/27/20 05:14 07:37 12:05 WBC RBC Hgb Hct MCH RDW Lymph % (Auto) Lymph # Seg Neutrophils % Seg Neuts % (Manual) Lymphocytes % (Manual) Nucleated RBC % Seg Neutrophils # Seg Neutrophils # Man Lymphocytes # (Manual) PT INR D-Dimer ABG pH ABG pO2 ABG HCO3 ABG O2 Saturation ABG Base Excess ABG Hemoglobin Oxyhemoglobin Sodium 135 L Potassium 3.4 L D Chloride Carbon Dioxide 17 L BUN 24 H Creatinine 1.4 H D Glucose 143 H POC Glucose 133 H 141 H Hemoglobin A1c Lactic Acid Calcium 7.6 L Magnesium Ferritin AST ALT Alkaline Phosphatase Lactate Dehydrogenase C-Reactive Protein Total Protein Albumin Vancomycin Trough Random Vancomycin 01/27/20 01/27/20 01/27/20 17:37 22:14 23:53 WBC RBC Hgb Hct MCH RDW Lymph % (Auto) Lymph # Seg Neutrophils % Seg Neuts % (Manual) Lymphocytes % (Manual) Nucleated RBC % Seg Neutrophils # Seg Neutrophils # Man Lymphocytes # (Manual) PT INR D-Dimer 2675.43 H ABG pH ABG pO2 ABG HCO3 ABG O2 Saturation ABG Base Excess ABG Hemoglobin Oxyhemoglobin Sodium Potassium Chloride Carbon Dioxide BUN Creatinine Glucose POC Glucose 153 H 124 H Hemoglobin A1c Lactic Acid Calcium Magnesium Ferritin AST ALT Alkaline Phosphatase Lactate Dehydrogenase C-Reactive Protein Total Protein Albumin Vancomycin Trough Random Vancomycin 01/27/20 01/27/20 01/28/20 23:53 23:53 08:36 WBC RBC Hgb Hct MCH RDW Lymph % (Auto) Lymph # Seg Neutrophils % Seg Neuts % (Manual) Lymphocytes % (Manual) Nucleated RBC % Seg Neutrophils # Seg Neutrophils # Man Lymphocytes # (Manual) PT INR D-Dimer ABG pH ABG pO2 ABG HCO3 ABG O2 Saturation ABG Base Excess ABG Hemoglobin Oxyhemoglobin Sodium Potassium Chloride Carbon Dioxide BUN Creatinine Glucose POC Glucose 165 H Hemoglobin A1c Lactic Acid Calcium Magnesium Ferritin 3523.0 H AST ALT Alkaline Phosphatase Lactate Dehydrogenase 1132 H C-Reactive Protein 15.60 H Total Protein Albumin Vancomycin Trough Random Vancomycin 01/28/20 01/28/20 01/28/20 10:00 10:00 12:42 WBC RBC Hgb Hct MCH RDW Lymph % (Auto) Lymph # Seg Neutrophils % Seg Neuts % (Manual) Lymphocytes % (Manual) Nucleated RBC % Seg Neutrophils # Seg Neutrophils # Man Lymphocytes # (Manual) PT INR D-Dimer ABG pH ABG pO2 ABG HCO3 ABG O2 Saturation ABG Base Excess ABG Hemoglobin Oxyhemoglobin Sodium 131 L Potassium 3.5 L Chloride Carbon Dioxide 16 L BUN 51 H Creatinine 3.5 H D Glucose 180 H POC Glucose 188 H Hemoglobin A1c Lactic Acid Calcium 7.5 L Magnesium Ferritin AST ALT Alkaline Phosphatase Lactate Dehydrogenase C-Reactive Protein Total Protein Albumin Vancomycin Trough Random Vancomycin 65.8 H 01/28/20 01/28/20 01/29/20 17:27 22:06 07:29 WBC 17.0 H RBC Hgb 9.6 L Hct 29.5 L MCH 26 L RDW Lymph % (Auto) Lymph # Seg Neutrophils % Seg Neuts % (Manual) Lymphocytes % (Manual) Nucleated RBC % Seg Neutrophils # Seg Neutrophils # Man Lymphocytes # (Manual) PT INR D-Dimer ABG pH ABG pO2 ABG HCO3 ABG O2 Saturation ABG Base Excess ABG Hemoglobin Oxyhemoglobin Sodium Potassium Chloride Carbon Dioxide BUN Creatinine Glucose POC Glucose 161 H 158 H Hemoglobin A1c Lactic Acid Calcium Magnesium Ferritin AST ALT Alkaline Phosphatase Lactate Dehydrogenase C-Reactive Protein Total Protein Albumin Vancomycin Trough Random Vancomycin 01/29/20 01/29/20 01/29/20 07:29 08:20 11:54 WBC RBC Hgb Hct MCH RDW Lymph % (Auto) Lymph # Seg Neutrophils % Seg Neuts % (Manual) Lymphocytes % (Manual) Nucleated RBC % Seg Neutrophils # Seg Neutrophils # Man Lymphocytes # (Manual) PT INR D-Dimer ABG pH ABG pO2 ABG HCO3 ABG O2 Saturation ABG Base Excess ABG Hemoglobin Oxyhemoglobin Sodium 133 L Potassium Chloride Carbon Dioxide 15 L BUN 69 H Creatinine 4.1 H Glucose 161 H POC Glucose 170 H Hemoglobin A1c Lactic Acid Calcium 7.6 L Magnesium Ferritin > 2000.0 H AST ALT Alkaline Phosphatase Lactate Dehydrogenase C-Reactive Protein Total Protein Albumin Vancomycin Trough Random Vancomycin 01/29/20 01/29/20 01/29/20 11:54 11:54 12:55 WBC RBC Hgb Hct MCH RDW Lymph % (Auto) Lymph # Seg Neutrophils % Seg Neuts % (Manual) Lymphocytes % (Manual) Nucleated RBC % Seg Neutrophils # Seg Neutrophils # Man Lymphocytes # (Manual) PT INR D-Dimer 1499 H ABG pH ABG pO2 ABG HCO3 ABG O2 Saturation ABG Base Excess ABG Hemoglobin Oxyhemoglobin Sodium Potassium Chloride Carbon Dioxide BUN Creatinine Glucose POC Glucose 142 H Hemoglobin A1c Lactic Acid Calcium Magnesium Ferritin AST ALT Alkaline Phosphatase Lactate Dehydrogenase 946 H C-Reactive Protein 13.30 H Total Protein Albumin Vancomycin Trough Random Vancomycin 01/29/20 01/29/20 01/30/20 16:19 22:13 05:19 WBC RBC Hgb Hct MCH RDW Lymph % (Auto) Lymph # Seg Neutrophils % Seg Neuts % (Manual) Lymphocytes % (Manual) Nucleated RBC % Seg Neutrophils # Seg Neutrophils # Man Lymphocytes # (Manual) PT INR D-Dimer ABG pH ABG pO2 ABG HCO3 ABG O2 Saturation ABG Base Excess ABG Hemoglobin Oxyhemoglobin Sodium Potassium Chloride Carbon Dioxide BUN Creatinine Glucose POC Glucose 146 H 142 H Hemoglobin A1c Lactic Acid Calcium Magnesium Ferritin AST ALT Alkaline Phosphatase Lactate Dehydrogenase C-Reactive Protein Total Protein Albumin Vancomycin Trough 45.4 H Random Vancomycin 01/30/20 01/30/20 01/30/20 05:19 08:04 12:21 WBC RBC Hgb Hct MCH RDW Lymph % (Auto) Lymph # Seg Neutrophils % Seg Neuts % (Manual) Lymphocytes % (Manual) Nucleated RBC % Seg Neutrophils # Seg Neutrophils # Man Lymphocytes # (Manual) PT INR D-Dimer ABG pH ABG pO2 ABG HCO3 ABG O2 Saturation ABG Base Excess ABG Hemoglobin Oxyhemoglobin Sodium 134 L Potassium Chloride Carbon Dioxide 14 L BUN 87 H Creatinine 4.4 H Glucose 172 H POC Glucose 153 H 147 H Hemoglobin A1c Lactic Acid Calcium 7.6 L Magnesium Ferritin AST 152 H ALT 124 H Alkaline Phosphatase Lactate Dehydrogenase C-Reactive Protein Total Protein 5.5 L Albumin 1.8 L Vancomycin Trough Random Vancomycin 01/30/20 01/30/20 01/31/20 16:51 22:54 03:49 WBC RBC Hgb Hct MCH RDW Lymph % (Auto) Lymph # Seg Neutrophils % Seg Neuts % (Manual) Lymphocytes % (Manual) Nucleated RBC % Seg Neutrophils # Seg Neutrophils # Man Lymphocytes # (Manual) PT INR D-Dimer 801.37 H ABG pH ABG pO2 ABG HCO3 ABG O2 Saturation ABG Base Excess ABG Hemoglobin Oxyhemoglobin Sodium Potassium Chloride Carbon Dioxide BUN Creatinine Glucose POC Glucose 119 H 129 H Hemoglobin A1c Lactic Acid Calcium Magnesium Ferritin AST ALT Alkaline Phosphatase Lactate Dehydrogenase C-Reactive Protein Total Protein Albumin Vancomycin Trough Random Vancomycin 01/31/20 01/31/20 01/31/20 03:49 03:49 03:49 WBC 16.1 H RBC Hgb Hct MCH 25 L RDW Lymph % (Auto) Lymph # Seg Neutrophils % Seg Neuts % (Manual) Lymphocytes % (Manual) Nucleated RBC % Seg Neutrophils # Seg Neutrophils # Man Lymphocytes # (Manual) PT INR D-Dimer ABG pH ABG pO2 ABG HCO3 ABG O2 Saturation ABG Base Excess ABG Hemoglobin Oxyhemoglobin Sodium 134 L Potassium Chloride Carbon Dioxide 13 L BUN 97 H Creatinine 4.8 H Glucose 123 H POC Glucose Hemoglobin A1c Lactic Acid Calcium 7.6 L Magnesium Ferritin 3101.0 H AST 112 H ALT 112 H Alkaline Phosphatase 145 H Lactate Dehydrogenase 896 H C-Reactive Protein 11.10 H Total Protein 5.5 L Albumin 1.7 L Vancomycin Trough Random Vancomycin 01/31/20 01/31/20 01/31/20 08:00 11:48 16:14 WBC RBC Hgb Hct MCH RDW Lymph % (Auto) Lymph # Seg Neutrophils % Seg Neuts % (Manual) Lymphocytes % (Manual) Nucleated RBC % Seg Neutrophils # Seg Neutrophils # Man Lymphocytes # (Manual) PT INR D-Dimer ABG pH ABG pO2 ABG HCO3 ABG O2 Saturation ABG Base Excess ABG Hemoglobin Oxyhemoglobin Sodium Potassium Chloride Carbon Dioxide BUN Creatinine Glucose POC Glucose 133 H 136 H 151 H Hemoglobin A1c Lactic Acid Calcium Magnesium Ferritin AST ALT Alkaline Phosphatase Lactate Dehydrogenase C-Reactive Protein Total Protein Albumin Vancomycin Trough Random Vancomycin 01/31/20 01/31/20 02/01/20 21:37 22:35 03:49 WBC 19.3 H RBC 3.53 L Hgb 9.0 L Hct 28.1 L MCH 26 L RDW Lymph % (Auto) Lymph # Seg Neutrophils % Seg Neuts % (Manual) Lymphocytes % (Manual) Nucleated RBC % Seg Neutrophils # Seg Neutrophils # Man Lymphocytes # (Manual) PT INR D-Dimer ABG pH 7.226 L ABG pO2 77.9 L ABG HCO3 15.2 L ABG O2 Saturation 93.5 L ABG Base Excess -11.6 L ABG Hemoglobin Oxyhemoglobin 91.5 L Sodium Potassium Chloride Carbon Dioxide BUN Creatinine Glucose POC Glucose 179 H Hemoglobin A1c Lactic Acid Calcium Magnesium Ferritin AST ALT Alkaline Phosphatase Lactate Dehydrogenase C-Reactive Protein Total Protein Albumin Vancomycin Trough Random Vancomycin 02/01/20 02/01/20 03:49 04:30 WBC RBC Hgb Hct MCH RDW Lymph % (Auto) Lymph # Seg Neutrophils % Seg Neuts % (Manual) Lymphocytes % (Manual) Nucleated RBC % Seg Neutrophils # Seg Neutrophils # Man Lymphocytes # (Manual) PT INR D-Dimer ABG pH 7.290 L ABG pO2 120.0 H ABG HCO3 14.2 L ABG O2 Saturation ABG Base Excess -11.2 L ABG Hemoglobin 9.3 L Oxyhemoglobin Sodium 135 L Potassium Chloride Carbon Dioxide 13 L BUN 79 H Creatinine 4.1 H Glucose 198 H POC Glucose Hemoglobin A1c Lactic Acid Calcium 7.0 L Magnesium Ferritin AST ALT Alkaline Phosphatase Lactate Dehydrogenase C-Reactive Protein Total Protein Albumin Vancomycin Trough Random Vancomycin Chest x-ray: image reviewed Allied health notes reviewed: nursing
[2020-02-01] MEDS ORDERED: SODIUM BICARB 8.4% 50 MEQ/50 ML SYRINGE IV ONE (12:00)
[2020-02-01 12:30] LABS: Hepatitis B Surface Antigen Non-Reactive (Negative); Hepatitis C Virus Antibody Non-Reactive (NonReactive)
[2020-02-01] MEDS: INSULIN REGULAR, HUMAN 100 UNITS/1 ML SUB-Q SCH ×2 (12:44→17:52)
[2020-02-01] MEDS: ZINC SULFATE 220 MG CAP PO SCH (12:46)
--- NOTE | 2020-02-01 13:33 | Progress Note ---
Assessment and Plan - Patient Problems (1) Acute kidney injury (CIPRIANO) with acute tubular necrosis (ATN) Current Visit: Yes Status: Acute Plan to address problem: Acute kidney injury most likely secondary to acute tubular necrosis in the setting of severe sepsis secondary to COVID19 pneumonia. Acute vancomycin toxicity to be considered as differential. Pt remains at high risk for cytokine storm and ARDS given severely elevated inflammatory parameters. Pt was initiated on HD on 01/31/20 due to progressive renal failure, azotemia, uremic encephalopathy, worsening respiratory failure. Will arrange second HD today. Supportive care for ATN avoid nephrotoxins ( hold vanco and redose when trough is < 15 if indicated) aviod IV contrast/NSAIDS. Will monitor lytes/renal parameters closely and make further recommendations. (2) Acidosis Current Visit: Yes Status: Acute Plan to address problem: to be corrected with HD (3) COVID-19 virus detected Current Visit: Yes Status: Acute Plan to address problem: management as per ID (4) Acute respiratory failure with hypoxia Current Visit: Yes Status: Acute Plan to address problem: CXR shows increasing bilateral pleuroparenchymal disease, another HD arranged today with UF of 2L today. ventilator management as per ICU team (5) Pneumonia Current Visit: Yes Status: Acute Plan to address problem: on empiric treatment with hydroxychloroquin/Azithromycin along with cefepime, dose renally adjusted. (6) Type 2 diabetes mellitus with hyperglycemia Current Visit: Yes Status: Acute Plan to address problem: DM mangement as per primary attending (7) Metabolic encephalopathy Current Visit: Yes Status: Acute Plan to address problem: uremic enecphalopathy contributing, initiated on HD (8) Abscess of left thigh Current Visit: Yes Status: Acute Plan to address problem: s/p I&D, cont ABXs treatment as per ID recommendations Subjective Date of service: 02/01/20 Principal diagnosis: Severe Sepsis; LEV PNA; DM II; Morbid obesity; R/O COVID-19 infection Interval history: pt is intubated, sedated, now transferred to the ICU. Objective - Vital Signs Vital signs: Vital Signs - 12hr 02/01/20 02/01/20 02/01/20 01:30 01:45 02:00 Temperature Pulse Rate 82 79 82 Pulse Rate [ From Monitor] Respiratory 25 H 25 H 25 H Rate Blood Pressure 108/62 106/53 98/52 O2 Sat by Pulse 100 100 100 Oximetry 04/03/20 04/03/20 04/03/20 02:15 02:30 02:45 Temperature Pulse Rate 81 81 80 Pulse Rate [ From Monitor] Respiratory 25 H 25 H 25 H Rate Blood Pressure 92/50 82/42 77/40 O2 Sat by Pulse 100 100 100 Oximetry 02/01/20 02/01/20 02/01/20 03:00 03:15 03:29 Temperature 98.9 F Pulse Rate 79 79 Pulse Rate [ From Monitor] Respiratory 25 H 25 H Rate Blood Pressure 86/40 90/46 O2 Sat by Pulse 100 100 Oximetry 02/01/20 02/01/20 02/01/20 03:30 03:45 04:01 Temperature Pulse Rate 79 79 82 Pulse Rate [ From Monitor] Respiratory 25 H 24 25 H Rate Blood Pressure 92/49 88/46 98/53 O2 Sat by Pulse 100 100 100 Oximetry 02/01/20 02/01/20 02/01/20 04:15 04:30 04:45 Temperature Pulse Rate 80 80 80 Pulse Rate [ From Monitor] Respiratory 25 H 25 H 25 H Rate Blood Pressure 93/46 93/47 91/44 O2 Sat by Pulse 100 100 100 Oximetry 02/01/20 02/01/20 02/01/20 05:00 05:15 05:30 Temperature Pulse Rate 80 80 81 Pulse Rate [ From Monitor] Respiratory 25 H 25 H 25 H Rate Blood Pressure 93/46 91/45 97/46 O2 Sat by Pulse 100 100 100 Oximetry 02/01/20 02/01/20 02/01/20 05:35 05:45 06:01 Temperature Pulse Rate 80 81 82 Pulse Rate [ From Monitor] Respiratory 25 H 25 H Rate Blood Pressure 90/48 96/46 O2 Sat by Pulse 100 100 100 Oximetry 02/01/20 02/01/20 02/01/20 06:15 06:30 06:45 Temperature Pulse Rate 82 82 83 Pulse Rate [ From Monitor] Respiratory 25 H 25 H 25 H Rate Blood Pressure 96/48 92/48 83/40 O2 Sat by Pulse 100 100 100 Oximetry 02/01/20 02/01/20 02/01/20 07:00 07:15 07:30 Temperature Pulse Rate 82 81 82 Pulse Rate [ From Monitor] Respiratory 26 H 25 H 25 H Rate Blood Pressure 84/39 92/48 96/48 O2 Sat by Pulse 100 100 100 Oximetry 02/01/20 02/01/20 02/01/20 07:45 08:00 08:01 Temperature 98.3 F Pulse Rate 83 92 H Pulse Rate [ 92 H From Monitor] Respiratory 25 H 25 H 25 H Rate Blood Pressure 96/47 96/47 O2 Sat by Pulse 100 100 100 Oximetry 02/01/20 02/01/20 02/01/20 08:15 08:31 08:45 Temperature Pulse Rate 92 H 86 84 Pulse Rate [ From Monitor] Respiratory 29 H 25 H 25 H Rate Blood Pressure 96/47 96/47 81/38 O2 Sat by Pulse 100 Oximetry 02/01/20 02/01/20 02/01/20 09:01 09:15 09:30 Temperature Pulse Rate 85 88 90 Pulse Rate [ From Monitor] Respiratory 25 H 26 H 20 Rate Blood Pressure 103/48 111/56 101/61 O2 Sat by Pulse 100 99 98 Oximetry 02/01/20 02/01/20 02/01/20 09:45 10:01 10:15 Temperature Pulse Rate 84 84 85 Pulse Rate [ From Monitor] Respiratory 25 H 25 H 25 H Rate Blood Pressure 103/53 102/50 98/47 O2 Sat by Pulse 98 99 99 Oximetry 02/01/20 02/01/20 02/01/20 10:30 10:45 11:00 Temperature Pulse Rate 86 85 94 H Pulse Rate [ From Monitor] Respiratory 25 H 26 H 14 Rate Blood Pressure 104/52 107/52 106/58 O2 Sat by Pulse 99 99 98 Oximetry 02/01/20 02/01/20 02/01/20 11:15 11:24 11:31 Temperature 99.9 F H Pulse Rate 84 85 Pulse Rate [ From Monitor] Respiratory 30 H 30 H Rate Blood Pressure 100/54 105/54 O2 Sat by Pulse 99 99 Oximetry 02/01/20 02/01/20 02/01/20 11:45 12:01 12:15 Temperature Pulse Rate 88 88 93 H Pulse Rate [ From Monitor] Respiratory 30 H 30 H 20 Rate Blood Pressure 114/59 110/60 115/62 O2 Sat by Pulse 99 99 98 Oximetry 02/01/20 12:31 Temperature Pulse Rate 91 H Pulse Rate [ From Monitor] Respiratory 30 H Rate Blood Pressure 104/59 O2 Sat by Pulse 98 Oximetry - General Appearance General appearance: well-developed, sedated on ventilator, intubated EENT: ATNC, mucous membranes moist Neck: no JVD Respiratory: Present: Decreased Breath Sounds Cardiology: regular, S1S2 Gastrointestinal: normoactive bowel sounds Integumentary: no rash, other (no edema ) Neurologic: other (intubated. sedated ) - Lab 02/01/20 03:49 02/01/20 03:49 Most recent lab results ABG pH 7.290 pH Units (7.350-7.450) L 02/01/20 04:30 ABG pCO2 30.3 mm Hg 02/01/20 04:30 ABG pO2 120.0 mm Hg (80.0-90.0) H 02/01/20 04:30 ABG HCO3 14.2 mmol/L (20.0-26.0) L 02/01/20 04:30 ABG O2 Saturation 98.1 % (95.0-99.0) 02/01/20 04:30 Calcium 7.0 mg/dL (8.4-10.2) L 02/01/20 03:49 Magnesium 1.50 mg/dL (1.7-2.3) L 01/17/20 22:58 Medications & Allergies - Medications Allergies/Adverse Reactions: Allergies No Known Allergies Allergy (Verified 09/12/18 00:37) Home Medications: Home Medications Medication Instructions Recorded Confirmed Last Taken Type glipiZIDE-Metformin 5-500 mg 500 mg PO BID 01/17/20 01/17/20 Unknown History Active Medications: Generic Name Dose Route Start Last Admin Trade Name Freq PRN Reason Stop Dose Admin Acetaminophen 650 mg 01/17/20 23:06 01/29/20 22:43 Tylenol PO 650 mg Q4H PRN Administration Pain MILD(1-3)/Fever >100.5/COLLINS Lipase/Protease/Amylase 1 each 02/01/20 09:[address] 10,500 Unit FEEDTUBE PRN PRN For Clogged Feeding Tube Dextrose 0 ml 01/17/20 23:06 D50w (25gm) Syringe IV Q30MIN PRN Hypoglycemia Protocol Famotidine 20 mg 01/24/20 10:00 02/01/20 09:06 Pepcid PO 20 mg QDAY COBY Administration Fentanyl 50 mcg 01/31/20 21:48 Sublimaze IV Q10MIN PRN ANALGESIA Heparin Sodium (Porcine) 5,000 unit 01/18/20 06:00 02/01/20 06:00 Heparin SUB-Q 5,000 unit Q8HR COBY Administration Hydralazine HCl 10 mg 01/18/20 22:14 01/22/20 18:43 Apresoline IV 10 mg Q6H PRN Administration Hypertension Hydrophilic Ointment 1 applic 01/31/20 21:48 Vaseline Lip Therapy TP Q2HR PRN Dry Lips Hydroxychloroquine Sulfate 200 mg 01/28/20 23:00 02/01/20 09:06 Plaquenil PO 02/01/20 22:59 200 mg BID COBY Administration Fentanyl Citrate 2,000 mcg in 100 mls @ 7.395 mls/hr 01/31/20 22:00 02/01/20 11:27 Fentanyl Drip Premix IV 0 mcg/kg/hr TITR COBY 0 mls/hr Titration Protocol 1 MCG/KG/HR Norepinephrine 4 mg in 250 mls @ 7.5 mls/hr 01/31/20 23:45 02/01/20 09:26 Levophed Drip 4 Mg/Ns 250 Ml IV 14 mcg/min TITR COBY 52.5 mls/hr Administration Protocol 2 MCG/MIN Sodium Chloride 100 mls @ 999 mls/hr 02/01/20 10:26 Nacl 0.9% IV KIRSTEN PRN Hypotension Piperacillin Sod/Tazobactam Sod 2.25 gm in 50 mls @ 100 mls/hr 02/01/20 14:00 Zosyn/Ns 2.25 Gm/50ml IV Q8HR COUNTS INCLUDE 234 BEDS AT THE [facility] Protocol Insulin Human Isoph/Insulin Regular 12 unit 01/25/20 09:00 02/01/20 10:08 Humulin 70/30 SUB-Q Not Given BIDDIAB COUNTS INCLUDE 234 BEDS AT THE [facility] Insulin Human Regular 0 units 02/01/20 12:00 02/01/20 12:44 Humulin R SUB-Q 2 units Q6HR COUNTS INCLUDE 234 BEDS AT THE [facility] Administration Protocol Magnesium Hydroxide 30 ml 01/17/20 23:06 Milk Of Magnesia PO Q4H PRN Constipation Morphine Sulfate 2 mg 01/17/20 23:06 01/30/20 20:39 Morphine IV 2 mg Q4H PRN Administration Pain, Moderate (4-6) Multi-Ingred Cream/Lotion/Oil/Oint 1 applic 01/31/20 21:48 Artificial Tears Ophth Oint OU Q4HR PRN Dry Eye(s) Nystatin 1 applic 01/29/20 14:00 02/01/20 09:06 Nystop TP 1 applic BID COBY Administration Ondansetron HCl 4 mg 01/17/20 23:06 01/30/20 20:47 Zofran IV 4 mg Q8H PRN Administration Nausea And Vomiting Simple Syrup 15 ml 02/01/20 09:53 Simple Syrup FEEDTUBE PRN PRN Hypoglycemia Simple Syrup 30 ml 02/01/20 09:53 Simple Syrup FEEDTUBE PRN PRN Hypoglycemia Sodium Bicarbonate 1,300 mg 01/29/20 22:00 02/01/20 09:06 Sodium Bicarbonate PO 1,300 mg BID COBY Administration Sodium Bicarbonate 325 mg 02/01/20 09:53 Sodium Bicarbonate FEEDTUBE PRN PRN For Clogged Feeding Tube Sodium Chloride 10 ml 01/18/20 10:00 02/01/20 09:07 Sodium Chloride Flush Syringe 10 Ml IV 10 ml BID COBY Administration Sodium Chloride 10 ml 01/17/20 23:06 Sodium Chloride Flush Syringe 10 Ml IV PRN PRN LINE FLUSH Zinc Sulfate 220 mg 01/29/20 12:00 02/01/20 12:46 Zinc Sulfate PO 02/01/20 20:00 220 mg DAILY@1200 COBY Administration
--- NOTE | 2020-02-01 13:40 | Progress Note ---
Assessment and Plan POD#1 s/p extensive I&D of left thigh abscess with sepsis and showing signs of multisystem organ insufficiency requiring ventilator support, possible dialysis, and vasopressers. wound vac was placed with wound care nurse. Next vac change scheduled for Tuesday. Continue abx and supportive care. Subjective Date of service: 02/01/20 Narrative: no acute events overnight. Pt continues to be on the vent and requiring pressers. Objective Vital Signs - 12hr 02/01/20 02/01/20 02/01/20 01:45 02:00 02:15 Temperature Pulse Rate 79 82 81 Pulse Rate [ From Monitor] Respiratory 25 H 25 H 25 H Rate Blood Pressure 106/53 98/52 92/50 O2 Sat by Pulse 100 100 100 Oximetry 02/01/20 02/01/20 02/01/20 02:30 02:45 03:00 Temperature Pulse Rate 81 80 79 Pulse Rate [ From Monitor] Respiratory 25 H 25 H 25 H Rate Blood Pressure 82/42 77/40 86/40 O2 Sat by Pulse 100 100 100 Oximetry 02/01/20 02/01/20 02/01/20 03:15 03:29 03:30 Temperature 98.9 F Pulse Rate 79 79 Pulse Rate [ From Monitor] Respiratory 25 H 25 H Rate Blood Pressure 90/46 92/49 O2 Sat by Pulse 100 100 Oximetry 02/01/20 02/01/20 02/01/20 03:45 04:01 04:15 Temperature Pulse Rate 79 82 80 Pulse Rate [ From Monitor] Respiratory 24 25 H 25 H Rate Blood Pressure 88/46 98/53 93/46 O2 Sat by Pulse 100 100 100 Oximetry 02/01/20 02/01/20 02/01/20 04:30 04:45 05:00 Temperature Pulse Rate 80 80 80 Pulse Rate [ From Monitor] Respiratory 25 H 25 H 25 H Rate Blood Pressure 93/47 91/44 93/46 O2 Sat by Pulse 100 100 100 Oximetry 02/01/20 02/01/20 02/01/20 05:15 05:30 05:35 Temperature Pulse Rate 80 81 80 Pulse Rate [ From Monitor] Respiratory 25 H 25 H Rate Blood Pressure 91/45 97/46 O2 Sat by Pulse 100 100 100 Oximetry 02/01/20 02/01/20 02/01/20 05:45 06:01 06:15 Temperature Pulse Rate 81 82 82 Pulse Rate [ From Monitor] Respiratory 25 H 25 H 25 H Rate Blood Pressure 90/48 96/46 96/48 O2 Sat by Pulse 100 100 100 Oximetry 02/01/20 02/01/20 02/01/20 06:30 06:45 07:00 Temperature Pulse Rate 82 83 82 Pulse Rate [ From Monitor] Respiratory 25 H 25 H 26 H Rate Blood Pressure 92/48 83/40 84/39 O2 Sat by Pulse 100 100 100 Oximetry 02/01/20 02/01/20 02/01/20 07:15 07:30 07:45 Temperature Pulse Rate 81 82 83 Pulse Rate [ From Monitor] Respiratory 25 H 25 H 25 H Rate Blood Pressure 92/48 96/48 96/47 O2 Sat by Pulse 100 100 100 Oximetry 02/01/20 02/01/20 02/01/20 08:00 08:01 08:15 Temperature 98.3 F Pulse Rate 92 H 92 H Pulse Rate [ 92 H From Monitor] Respiratory 25 H 25 H 29 H Rate Blood Pressure 96/47 96/47 O2 Sat by Pulse 100 100 Oximetry 02/01/20 02/01/20 02/01/20 08:31 08:45 09:01 Temperature Pulse Rate 86 84 85 Pulse Rate [ From Monitor] Respiratory 25 H 25 H 25 H Rate Blood Pressure 96/47 81/38 103/48 O2 Sat by Pulse 100 100 Oximetry 02/01/20 02/01/20 02/01/20 09:15 09:30 09:45 Temperature Pulse Rate 88 90 84 Pulse Rate [ From Monitor] Respiratory 26 H 20 25 H Rate Blood Pressure 111/56 101/61 103/53 O2 Sat by Pulse 99 98 98 Oximetry 02/01/20 02/01/20 02/01/20 10:01 10:15 10:30 Temperature Pulse Rate 84 85 86 Pulse Rate [ From Monitor] Respiratory 25 H 25 H 25 H Rate Blood Pressure 102/50 98/47 104/52 O2 Sat by Pulse 99 99 99 Oximetry 02/01/20 02/01/20 02/01/20 10:45 11:00 11:15 Temperature Pulse Rate 85 94 H 84 Pulse Rate [ From Monitor] Respiratory 26 H 14 30 H Rate Blood Pressure 107/52 106/58 100/54 O2 Sat by Pulse 99 98 99 Oximetry 04/03/20 04/03/20 04/03/20 11:24 11:31 11:45 Temperature 99.9 F H Pulse Rate 85 88 Pulse Rate [ From Monitor] Respiratory 30 H 30 H Rate Blood Pressure 105/54 114/59 O2 Sat by Pulse 99 99 Oximetry 02/01/20 02/01/20 02/01/20 12:01 12:15 12:31 Temperature Pulse Rate 88 93 H 91 H Pulse Rate [ From Monitor] Respiratory 30 H 20 30 H Rate Blood Pressure 110/60 115/62 104/59 O2 Sat by Pulse 99 98 98 Oximetry - General physical appearance no distress, other (non-coommunicative on vent. responds to painful stimuli) - Integumentary other (wound examined and found to have no purulent drainage, no non viable tissue, or odor. A wound vac was placed with good suction at 125mmHg continuous. ) - Labs 02/01/20 03:49 02/01/20 03:49 Diabetes panel 02/01/20 Range/Units 03:49 Sodium 135 L (137-145) mmol/L Potassium 4.6 (3.6-5.0) mmol/L Chloride 100.9 (98-107) mmol/L Carbon Dioxide 13 L (22-30) mmol/L BUN 79 H (7-17) mg/dL Creatinine 4.1 H (0.7-1.2) mg/dL Glucose 198 H (65-100) mg/dL Calcium 7.0 L (8.4-10.2) mg/dL Calcium panel 02/01/20 Range/Units 03:49 Calcium 7.0 L (8.4-10.2) mg/dL Pituitary panel 02/01/20 Range/Units 03:49 Sodium 135 L (137-145) mmol/L Potassium 4.6 (3.6-5.0) mmol/L Chloride 100.9 (98-107) mmol/L Carbon Dioxide 13 L (22-30) mmol/L BUN 79 H (7-17) mg/dL Creatinine 4.1 H (0.7-1.2) mg/dL Glucose 198 H (65-100) mg/dL Calcium 7.0 L (8.4-10.2) mg/dL Adrenal panel 02/01/20 Range/Units 03:49 Sodium 135 L (137-145) mmol/L Potassium 4.6 (3.6-5.0) mmol/L Chloride 100.9 (98-107) mmol/L Carbon Dioxide 13 L (22-30) mmol/L BUN 79 H (7-17) mg/dL Creatinine 4.1 H (0.7-1.2) mg/dL Glucose 198 H (65-100) mg/dL Calcium 7.0 L (8.4-10.2) mg/dL
[2020-02-01] MEDS: PIPERACIL-TAZO 2.25 GM/50 ML 2.25 GM/50 ML BAG IV SCH ×2 (14:32→21:29)
--- NOTE | 2020-02-01 16:32 | Progress Note ---
Assessment and Plan Cultures: Blood culture 01/17/2020 no growth to date Urine culture 01/17/2020 no growth to date Sputum normal resp dulce A/P: 29-year-old female past medical history diabetes admitted with acute sepsis secondary to right foot wound versus pneumonia. #Acute sepsis: fever resolved, now leukoctosis increasing. Secondary to her left tight abscess versus pneumonia. #Severe COVID-19 pneumonia: Coronavirus testing has returned positive. Very high inflammatory markers - ferritin [id number]. Ferritin elevated, CRP/LDH improving. Risk for cytokine storm secondary to COVID and high risk for ARDS #Acute respiratory failure: now intubated #Left thigh abscess: surgery on board #Right foot wound: Will need MRI when more stable to rule out osteomyelitis of the toe. Continue empiric vancomycin and cefepime for now. #Diabetes: tight glycemic control for best outcomes. #CIPRIANO: renally adjust abx, worsening #Morbid obesity Recs: f/u OR culture Continue vancomycin for left thigh abscess -renally adjusted Add zosyn renally adjusted Stop cefepime Continuos pulse oximetry ContinueCOVID isolationprecautions per [facility] protocol Continue hydroxychloroquine 200 mg PO BID for 4 days (total 5 days) with zinc 220 mg PO qday Day 3 of 5 Obtain serial Ferritin, LDH, D-Dimer, CRP every 48h Daily EKG - QT monitoring - stop plaqenil if QT interval >500 Thank you for the consult, we will continue to follow. Janett Duffy MD Infectious Diseases [employer] [place] [employer] [facility] ([facility]) M [phone] O [phone] Subjective Date of service: 02/01/20 Principal diagnosis: Severe Sepsis; LEV PNA; DM II; Morbid obesity; R/O COVID-19 infection Interval history: transferred to ICU after OR intubated Objective - Exam Narrative Exam: Constitutional: sedated intuabted Oral: limited due to lack opf PPE Cardiovascular: Respiratory: GI: Soft, obese Musculoskeletal: Right hallux wound, left foot callus. Left thigh large induration, skin sloughing Skin: Hem/Lymphatic: Psych: Mood ok. Affect normal Neurological: Awake, alert, oriented. No gross abnormality - Constitutional Vitals: Vital Signs Temp Pulse Resp BP Pulse Ox 99.9 F H 100 H 34 H 114/54 100 02/01/20 11:24 02/01/20 16:01 02/01/20 16:01 02/01/20 16:01 02/01/20 16:01 Temperature -Last 24 Hours Temperature 99.9 F Temperature 98.3 F Temperature 98.9 F Temperature 98.8 F Temperature 97.4 F - Labs CBC & Chem 7: 02/01/20 03:49 02/01/20 03:49 Labs: Abnormal lab results 01/31/20 01/31/20 02/01/20 Range/Units 21:37 22:35 03:49 WBC 19.3 H (4.5-11.0) K/mm3 RBC 3.53 L (3.65-5.03) M/mm3 Hgb 9.0 L (10.1-14.3) gm/dl Hct 28.1 L (30.3-42.9) % MCH 26 L (28-32) pg ABG pH 7.226 L (7.350-7.450) pH Units ABG pO2 77.9 L (80.0-90.0) mm Hg ABG HCO3 15.2 L (20.0-26.0) mmol/L ABG O2 Saturation 93.5 L (95.0-99.0) % ABG Base Excess -11.6 L (-2.0-3.0) mmol/L ABG Hemoglobin (12.0-16.0) gm/dl Oxyhemoglobin 91.5 L (95.0-99.0) % Sodium (137-145) mmol/L Carbon Dioxide (22-30) mmol/L BUN (7-17) mg/dL Creatinine (0.7-1.2) mg/dL Glucose (65-100) mg/dL POC Glucose 179 H (70-105) Calcium (8.4-10.2) mg/dL 02/01/20 02/01/20 02/01/20 Range/Units 03:49 04:30 08:13 WBC (4.5-11.0) K/mm3 RBC (3.65-5.03) M/mm3 Hgb (10.1-14.3) gm/dl Hct (30.3-42.9) % MCH (28-32) pg ABG pH 7.290 L (7.350-7.450) pH Units ABG pO2 120.0 H (80.0-90.0) mm Hg ABG HCO3 14.2 L (20.0-26.0) mmol/L ABG O2 Saturation (95.0-99.0) % ABG Base Excess -11.2 L (-2.0-3.0) mmol/L ABG Hemoglobin 9.3 L (12.0-16.0) gm/dl Oxyhemoglobin (95.0-99.0) % Sodium 135 L (137-145) mmol/L Carbon Dioxide 13 L (22-30) mmol/L BUN 79 H (7-17) mg/dL Creatinine 4.1 H (0.7-1.2) mg/dL Glucose 198 H (65-100) mg/dL POC Glucose 153 H (70-105) Calcium 7.0 L (8.4-10.2) mg/dL 02/01/20 Range/Units 11:29 WBC (4.5-11.0) K/mm3 RBC (3.65-5.03) M/mm3 Hgb (10.1-14.3) gm/dl Hct (30.3-42.9) % MCH (28-32) pg ABG pH (7.350-7.450) pH Units ABG pO2 (80.0-90.0) mm Hg ABG HCO3 (20.0-26.0) mmol/L ABG O2 Saturation (95.0-99.0) % ABG Base Excess (-2.0-3.0) mmol/L ABG Hemoglobin (12.0-16.0) gm/dl Oxyhemoglobin (95.0-99.0) % Sodium (137-145) mmol/L Carbon Dioxide (22-30) mmol/L BUN (7-17) mg/dL Creatinine (0.7-1.2) mg/dL Glucose (65-100) mg/dL POC Glucose 181 H (70-105) Calcium (8.4-10.2) mg/dL
[2020-02-01] MEDS ORDERED: SODIUM CHLORIDE*PRIMING MACHINE ONLY FOR DIALYSIS MC ONE (21:25)
[2020-02-02] MEDS: fentaNYL DRIP Premix 2,000 MCG/100 ML BAG IV SCH ×2 (00:47→16:31)
[2020-02-02] MEDS: INSULIN REGULAR, HUMAN 100 UNITS/1 ML SUB-Q SCH ×5 (00:49→23:40)
[2020-02-02] MEDS: NORepinephrine/NS 4 MG-250 ML 4 MG/250 ML BAG IV SCH ×3 (00:49→12:56)
--- NOTE | 2020-02-02 03:15 | XRay Report ---
CHEST 1 VIEW INDICATION / CLINICAL INFORMATION: follow up respiratory failure. COMPARISON: 02/01/2020 FINDINGS: SUPPORT DEVICES: Stable, satisfactory device positioning. HEART / MEDIASTINUM: Stable. LUNGS / PLEURA: Bilateral pleural-parenchymal opacities have improved. Faint residual left upper lobe airspace disease. No pneumothorax. ADDITIONAL FINDINGS: No significant additional findings. IMPRESSION: 1. Radiographic improvement of the chest. Signer Name: Colin Quevedo MD Signed: 02/02/2020 3:10 AM Workstation Name: [facility] [employer]
[2020-02-02 04:53] LABS: ABG HCO3 20.5 mmol/L (20.0-26.0); ABG Methemoglobin 0.5 % (0.0-1.5); ABG Oxygen Saturation 97.2 % (95.0-99.0); ABG PCO2 30.3 mm Hg; ABG PH 7.447 pH Units (7.350-7.450); ABG PO2 86.3 mm Hg (80.0-90.0)
[2020-02-02 05:28] LABS: Hematocrit 24.9 % (30.3-42.9); Hemoglobin 8.4 gm/dl (10.1-14.3); Mean Corpuscular HGB Conc 34 % (30-34); Mean Corpuscular Volume 77 fl (79-97); Platelet Count 270 K/mm3 (140-440); Red Blood Count 3.24 M/mm3 (3.65-5.03)
[2020-02-02 05:48] LABS: C-Reactive Protein 11.5 mg/dL (0.00-1.30); Calcium 7.2 mg/dL (8.4-10.2)
[2020-02-02] MEDS: HEPARIN 5,000 UNIT/1 ML VIAL SUB-Q SCH ×3 (06:09→21:41)
[2020-02-02] MEDS: PIPERACIL-TAZO 2.25 GM/50 ML 2.25 GM/50 ML BAG IV SCH ×3 (06:09→21:44)
[2020-02-02] MEDS: INSULIN NPH/REGULAR 70/30 INJ SUB-Q SCH ×2 (09:00→17:57)
[2020-02-02] MEDS ORDERED: SODIUM CHLORIDE 0.9% 100 ML IV PRN (09:01)
[2020-02-02] MEDS: FAMOTIDINE 20 MG TAB PO SCH (09:23)
[2020-02-02] MEDS: NYSTATIN POWDER 15 GM TP SCH ×2 (09:23→21:44)
--- NOTE | 2020-02-02 10:10 | Progress Note ---
Assessment and Plan Assessment and plan: 29-year-old female with known history of diabetes mellitus presenting to the emergency room today complaining of pain on the right big toe. Patient had an injury to the right big toe about 2 to 3 weeks ago when an object fell on the toe. She has gone to an urgent care facility where she was given some antibiotics namely Bactrim to the right big toe wound. She has noticed that the wound has not improved and she has been having progressive pain. She denies any fever or chills, no nausea vomiting, no cough or shortness of breath, no chest pain. She denies any sick contacts and no recent travel. Work-up in the emergency room reveals hyperglycemia chest x-ray also reveals a left-sided pneumonia with accompanying sepsis. Patient started on empiric IV antibiotics. She is also given a tetanus vacc ination. Per the ED doctor the wound itself did not appear overtly superinfected. Although however the patient was tachycardic and febrile and as part of sepsis work-up as her labs indicated hyperglycemia with pseudohyponatremia, minimal anion gap acidosis, and a left-sided pulmonary infiltrate. Given the magnitude of her abnormal vital signs, concomitant diabetes, metabolic derangement, daily maciel meets criteria for hospitalization. We will treat her empirically for community-acquired pneumonia. She does not endorse any sick contacts or exposures to individuals with coronavirus. Nevertheless her test was sent and patient returned COVID positive. January 24 the patient results for COVID 19 came back positive. 01/28: In addition to treatment as noted below patient was noted to have indura cruz area in the left thigh, Concerning for abscess development. Will obtain CT of the lower extremity 01/29: Patient noted hypotensive. She is refusing her p.o. week to be placed she sustained a fall overnight while trying to walk to the bathroom. CT of the lower extremity still pending we will proceed with consult to surgeons. We will discontinue all blood pressure medications give a bolus of fluid while mindful of possible developing ARDS. We will also obtain repeated chest x-ray as patient appears more toxic today. 01/31: Patient reintubated about 30 minutes after surgical procedure due to decompensation with hypotension and hypoxemia despite 100% oxygen and CPAP. Patient remains currently on the vent. We will continue dialysis. While it support specialist assist with managing ventilator. We will continue to adjust blood sugar for better control. Patient is critically ill this has been conveyed to the family prior. /: Mild improvement in inflammatory markers and chest x-ray. Otherwise patient still remains on mechanical ventilation still at high risk for ARDS mitigation processes are in place and plan. Continue aggressive management. She unfortunately still with low-grade intermittent fevers. Despite improvement in WBC. COVID 19 induced pneumonia Acute on chronic respiratory failure with postoperative decompensation now requiring mechanical ventilation Acute metabolic encephalopathy Left thigh abscess status post I&D Multiple Organ Failure Severe Sepsis Diabetic foot wound nonhealing Morbid obesity hypoventilation syndrome Acute kidney injury secondary to vasomotor nephropathy Metabolic Acidosis Hypokalemia-resolved Presumed thigh abscess. Anemia Hyponatremia-resolving Diabetes mellitus with uncontrolled blood sugar Morbid obesity Hypertension monitor closely for septic shock Malnutrition: Decreased p.o. intake Severe Protein calorie Plan -Continue current work-up as dictated by infectious disease doctors will include Plaquenil and zinc combination. -Per surgery POD#2 s/p extensive I&D of left thigh abscess with sepsis and showing signs of multisystem organ insufficiency requiring ventilator support, possible dialysis, and vasopressers. wound vac was placed with wound care nurse. Next vac change scheduled for Tuesday. Continue abx and supportive care. -right-sided common femoral catheter placed for dialysis. -Very high inflammatory markers - ferritin [id number]. Ferritin elevated, CRP/LDH improving. Risk for cytokine storm secondary to COVID and high risk for ARDS -Patient may need to be on BiPAP if respiratory status is not improving and she continues to get weaker. -Continue vancomycin . -Follow culture from surgical procedure -Continue isolation and droplet precautions. Continuous pulse oximetry and telemetry. -Tight diabetic control -To the wound care -MRI of the right foot outpatient deferred due to COVID 19 treatment and nonemergent at this time -Replace electrolytes as needed -Obtain serial Ferritin, LDH, D-Dimer, CRP every 48h -Daily EKG - QT monitoring - stop plaqenil if QT interval >500 -Obtain IL-6 (sent out) to evaluate cytokine release syndrome due to COVID -Weight loss recommendations on discharge Family updated The high probability of a clinically significant, sudden or life threatening det erioration of the [pulmonary, renal, ] system(s) required my full and direct attention, intervention and personal management. The aggregate critical care time was [35] minutes. This time is in addition to time spent performing reported procedures but includes the following: [x] Data Review and interpretation [x] Patient assessment and monitoring of vital signs [x] Documentation [x] Medication orders and management History Interval history: Patient seen and examined remains intubated, but improving hemodynamics with reduction noted in levophed. Hospitalist Physical - Physical exam Narrative exam: VITAL SIGNS: Reviewed. GENERAL: The patient appears normally developed, on mechanical ventilator Vital signs as documented. HEAD: No signs of head trauma. EYES: unable to examin MOUTH: ETT in place CHEST: unable to examin, observed from window rise of chest wall CARDIAC: unable to examin, telemetry denotes, SR MUSCULOSKELETAL: dressing around site of I/D Extremities without clubbing, cyanosis +edema. NEUROLOGIC EXAM: SEDATED Exam is limited due to PPE deficiency. - Constitutional Vitals: Temp Pulse Resp BP Pulse Ox 99.8 F H 77 30 H 147/72 99 02/02/20 08:00 02/02/20 09:59 02/02/20 09:45 02/02/20 09:45 02/02/20 09:45 General appearance: Present: no acute distress Results - Labs CBC & Chem 7: 02/02/20 04:30 02/02/20 04:30 Labs: Laboratory Last Values WBC 17.3 K/mm3 (4.5-11.0) H 02/02/20 04:30 RBC 3.24 M/mm3 (3.65-5.03) L 02/02/20 04:30 Hgb 8.4 gm/dl (10.1-14.3) L 02/02/20 04:30 Hct 24.9 % (30.3-42.9) L 02/02/20 04:30 MCV 77 fl (79-97) L 02/02/20 04:30 MCH 26 pg (28-32) L 02/02/20 04:30 MCHC 34 % (30-34) 02/02/20 04:30 RDW 14.0 % (13.2-15.2) 02/02/20 04:30 Plt Count 270 K/mm3 (140-440) 02/02/20 04:30 Lymph % (Auto) 16.6 % (13.4-35.0) 01/18/20 08:30 Jerauld % (Auto) 2.8 % (0.0-7.3) 01/18/20 08:30 Eos % (Auto) 0.1 % (0.0-4.3) 01/18/20 08:30 Baso % (Auto) 0.4 % (0.0-1.8) 01/18/20 08:30 Lymph # 1.2 K/mm3 (1.2-5.4) 01/18/20 08:30 Jerauld # 0.2 K/mm3 (0.0-0.8) 01/18/20 08:30 Eos # 0.0 K/mm3 (0.0-0.4) 01/18/20 08:30 Baso # 0.0 K/mm3 (0.0-0.1) 01/18/20 08:30 Add Manual Diff Complete 01/26/20 05:40 Total Counted 100 01/26/20 05:40 Seg Neutrophils % Batch Records Clerk 01/26/20 05:40 Seg Neuts % (Manual) 90.0 % (40.0-70.0) H 01/26/20 05:40 Band Neutrophils % 5.0 % 01/26/20 05:40 Lymphocytes % (Manual) 1.0 % (13.4-35.0) L 01/26/20 05:40 Reactive Lymphs % (Man) 0 % 01/26/20 05:40 Monocytes % (Manual) 2.0 % (0.0-7.3) 01/26/20 05:40 Eosinophils % (Manual) 2.0 % (0.0-4.3) 01/26/20 05:40 Basophils % (Manual) 0 % (0.0-1.8) 01/26/20 05:40 Metamyelocytes % 0 % 01/26/20 05:40 Myelocytes % 0 % 01/26/20 05:40 Promyelocytes % 0 % 01/26/20 05:40 Blast Cells % 0 % 01/26/20 05:40 Nucleated RBC % 1.0 % (0.0-0.9) H 01/26/20 05:40 Seg Neutrophils # 5.9 K/mm3 (1.8-7.7) 01/18/20 08:30 Seg Neutrophils # Man 14.8 K/mm3 (1.8-7.7) H 01/26/20 05:40 Band Neutrophils # 0.8 K/mm3 01/26/20 05:40 Lymphocytes # (Manual) 0.2 K/mm3 (1.2-5.4) L 01/26/20 05:40 Abs React Lymphs (Man) 0.0 K/mm3 01/26/20 05:40 Monocytes # (Manual) 0.3 K/mm3 (0.0-0.8) 01/26/20 05:40 Eosinophils # (Manual) 0.3 K/mm3 (0.0-0.4) 01/26/20 05:40 Basophils # (Manual) 0.0 K/mm3 (0.0-0.1) 01/26/20 05:40 Metamyelocytes # 0.0 K/mm3 01/26/20 05:40 Myelocytes # 0.0 K/mm3 01/26/20 05:40 Promyelocytes # 0.0 K/mm3 01/26/20 05:40 Blast Cells # 0.0 K/mm3 01/26/20 05:40 WBC Morphology Not Reportable 01/26/20 05:40 Hypersegmented Neuts Not Reportable 01/26/20 05:40 Hyposegmented Neuts Not Reportable 01/26/20 05:40 Hypogranular Neuts Not Reportable 01/26/20 05:40 Smudge Cells Not Reportable 01/26/20 05:40 Toxic Granulation Not Reportable 01/26/20 05:40 Toxic Vacuolation Not Reportable 01/26/20 05:40 Dohle Bodies Not Reportable 01/26/20 05:40 Pelger-Huet Anomaly Not Reportable 01/26/20 05:40 Barbie Rods Not Reportable 01/26/20 05:40 Platelet Estimate Consistent w auto 01/26/20 05:40 Clumped Platelets Not Reportable 01/26/20 05:40 Plt Clumps, EDTA Not Reportable 01/26/20 05:40 Large Platelets Not Reportable 01/26/20 05:40 Giant Platelets Not Reportable 01/26/20 05:40 Platelet Satelliting Not Reportable 01/26/20 05:40 Plt Morphology Comment Not Reportable 01/26/20 05:40 RBC Morphology Normal 01/26/20 05:40 Dimorphic RBCs Not Reportable 01/26/20 05:40 Polychromasia Not Reportable 01/26/20 05:40 Hypochromasia Not Reportable 01/26/20 05:40 Poikilocytosis Not Reportable 01/26/20 05:40 Anisocytosis Not Reportable 01/26/20 05:40 Microcytosis Not Reportable 01/26/20 05:40 Macrocytosis Not Reportable 01/26/20 05:40 Spherocytes Not Reportable 01/26/20 05:40 Pappenheimer Bodies Not Reportable 01/26/20 05:40 Sickle Cells Not Reportable 01/26/20 05:40 Target Cells Not Reportable 01/26/20 05:40 Tear Drop Cells Not Reportable 01/26/20 05:40 Ovalocytes Not Reportable 01/26/20 05:40 Helmet Cells Not Reportable 01/26/20 05:40 [place] Bodies Not Reportable 01/26/20 05:40 Bryan Rings Not Reportable 01/26/20 05:40 Gifford Cells Not Reportable 01/26/20 05:40 Bite Cells Not Reportable 01/26/20 05:40 Crenated Cell Not Reportable 01/26/20 05:40 Elliptocytes Not Reportable 01/26/20 05:40 Acanthocytes (Spur) Not Reportable 01/26/20 05:40 Rouleaux Not Reportable 01/26/20 05:40 Hemoglobin C Crystals Not Reportable 01/26/20 05:40 Schistocytes Not Reportable 01/26/20 05:40 Malaria parasites Not Reportable 01/26/20 05:40 ESR 70 mm/Hr (0-20) 01/17/20 22:58 Ras Bodies Not Reportable 01/26/20 05:40 Hem Pathologist Commnt No 01/26/20 05:40 PT 15.6 Sec. (12.2-14.9) H 01/17/20 18:28 INR 1.22 (0.87-1.13) H 01/17/20 18:28 D-Dimer 795.93 ng/mlDDU (0-234) H 02/02/20 04:30 ABG pH 7.447 pH Units (7.350-7.450) 02/02/20 04:17 ABG pCO2 30.3 mm Hg 02/02/20 04:17 ABG pO2 86.3 mm Hg (80.0-90.0) 02/02/20 04:17 ABG HCO3 20.5 mmol/L (20.0-26.0) 02/02/20 04:17 ABG O2 Saturation 97.2 % (95.0-99.0) 02/02/20 04:17 ABG O2 Content 11.5 (0.0-44) 02/02/20 04:17 ABG Base Excess -3.0 mmol/L (-2.0-3.0) L 02/02/20 04:17 ABG Hemoglobin 8.5 gm/dl (12.0-16.0) L 02/02/20 04:17 ABG Carboxyhemoglobin 1.2 % (0.0-5.0) 02/02/20 04:17 ABG Methemoglobin 0.5 % (0.0-1.5) 02/02/20 04:17 VBG pH 7.409 (7.320-7.420) 01/17/20 18:28 Oxyhemoglobin 95.4 % (95.0-99.0) 02/02/20 04:17 FiO2 50 % 02/02/20 04:17 Sodium 141 mmol/L (137-145) 02/02/20 04:30 Potassium 3.8 mmol/L (3.6-5.0) 02/02/20 04:30 Chloride 105.7 mmol/L (98-107) 02/02/20 04:30 Carbon Dioxide 17 mmol/L (22-30) L 02/02/20 04:30 Anion Gap 22 mmol/L 02/02/20 04:30 BUN 61 mg/dL (7-17) H 02/02/20 04:30 Creatinine 4.1 mg/dL (0.7-1.2) H 02/02/20 04:30 Estimated GFR 15 ml/min 02/02/20 04:30 BUN/Creatinine Ratio 15 % 02/02/20 04:30 Glucose 244 mg/dL (65-100) H 02/02/20 04:30 POC Glucose 274 (70-105) H 02/02/20 05:34 Hemoglobin A1c 11.6 % (4-6) H 01/18/20 12:47 Lactic Acid 1.30 mmol/L (0.7-2.0) 01/18/20 08:30 Calcium 7.2 mg/dL (8.4-10.2) L 02/02/20 04:30 Magnesium 1.50 mg/dL (1.7-2.3) L 01/17/20 22:58 Ferritin 1978.0 ng/mL (13.0-400.0) H 02/02/20 04:30 Total Bilirubin 0.50 mg/dL (0.1-1.2) 01/31/20 03:49 AST 112 units/L (5-40) H 01/31/20 03:49 ALT 112 units/L (7-56) H 01/31/20 03:49 Alkaline Phosphatase 145 units/L (35-129) H 01/31/20 03:49 Lactate Dehydrogenase 841 units/L (91-180) H 02/02/20 04:30 Total Creatine Kinase 122 units/L (30-135) 01/17/20 22:58 C-Reactive Protein 11.50 mg/dL (0.00-1.30) H 02/02/20 04:30 Total Protein 5.5 g/dL (6.3-8.2) L 01/31/20 03:49 Albumin 1.7 g/dL (3.9-5) L 01/31/20 03:49 Albumin/Globulin Ratio 0.4 % 01/31/20 03:49 Procalcitonin 0.27 ng/mL (<0.15) 01/23/20 10:36 HCG, Qual Negative (Negative) 01/31/20 03:49 Urine Color Yellow (Yellow) 01/18/20 00:32 Urine Turbidity Slightly-cloudy (Clear) 01/18/20 00:32 Urine pH 5.0 (5.0-7.0) 01/18/20 00:32 Ur Specific [place] 1.011 (1.003-1.030) 01/18/20 00:32 Urine Protein 100 mg/dl mg/dL (Negative) 01/18/20 00:32 Urine Glucose (UA) >=500 mg/dL (Negative) 01/18/20 00:32 Urine Ketones Tr mg/dL (Negative) 01/18/20 00:32 Urine Blood Neg (Negative) 01/18/20 00:32 Urine Nitrite Neg (Negative) 01/18/20 00:32 Urine Bilirubin Neg (Negative) 01/18/20 00:32 Urine Urobilinogen < 2.0 mg/dL (<2.0) 01/18/20 00:32 Ur Leukocyte Esterase Neg (Negative) 01/18/20 00:32 Urine WBC (Auto) 2.0 /HPF (0.0-6.0) 01/18/20 00:32 Urine RBC (Auto) 4.0 /HPF (0.0-6.0) 01/18/20 00:32 U Epithel Cells (Auto) 2.0 /HPF (0-13.0) 01/18/20 00:32 Hyaline Casts 1 /LPF 01/18/20 00:32 Urine Mucus Few /HPF 01/18/20 00:32 Urine Yeast (Budding) Few /HPF 01/18/20 00:32 Vancomycin Trough 45.4 ug/mL (5.0-20.0) H 01/30/20 05:19 Random Vancomycin 30.6 ug/mL (0-40.0) 02/01/20 03:49 Hepatitis A IgM Ab Non-reactive (NonReactive) 02/01/20 10:57 Hep Bs Antigen Non-reactive (Negative) 02/01/20 10:57 Hep B Core IgM Ab Non-reactive (NonReactive) 02/01/20 10:57 Hepatitis C Antibody Non-reactive (NonReactive) 02/01/20 10:57 Influenza A (Rapid) Negative (Negative) 01/19/20 01:10 Influenza B (Rapid) Negative (Negative) 01/19/20 01:10 AFB Identification 01/20/20 04:00 Miscellaneous Test See scanned result 01/18/20 Unknown Goldstein/IV: Voiding Method External Female Catheter IV Catheter Type [right ac] Peripheral IV IV Catheter Type [Right vascath Femoral] IV Catheter Type [Right Peripheral IV Forearm] IV Catheter Type [Right Wrist] INT / Saline Lock IV Catheter Type [Right Hand] INT / Saline Lock IV Catheter Type [Right Upper INT / Saline Lock arm] IV Catheter Type [Left Hand] INT / Saline Lock Active Medications - Current Medications Current Medications: Generic Name Dose Route Start Last Admin Trade Name Freq PRN Reason Stop Dose Admin Acetaminophen 650 mg 01/17/20 23:06 01/29/20 22:43 Tylenol PO 650 mg Q4H PRN Administration Pain MILD(1-3)/Fever >100.5/COLLINS Lipase/Protease/Amylase 1 each 02/01/20 09:[address] 10,500 Unit FEEDTUBE PRN PRN For Clogged Feeding Tube Dextrose 0 ml 01/17/20 23:06 D50w (25gm) Syringe IV Q30MIN PRN Hypoglycemia Protocol Famotidine 20 mg 01/24/20 10:00 02/02/20 09:23 Pepcid PO 20 mg QDAY COBY Administration Fentanyl 50 mcg 01/31/20 21:48 Sublimaze IV Q10MIN PRN ANALGESIA Heparin Sodium (Porcine) 5,000 unit 01/18/20 06:00 02/02/20 06:09 Heparin SUB-Q 5,000 unit Q8HR COBY Administration Hydralazine HCl 10 mg 01/18/20 22:14 01/22/20 18:43 Apresoline IV 10 mg Q6H PRN Administration Hypertension Hydrophilic Ointment 1 applic 01/31/20 21:48 Vaseline Lip Therapy TP Q2HR PRN Dry Lips Fentanyl Citrate 2,000 mcg in 100 mls @ 7.395 mls/hr 01/31/20 22:00 02/02/20 00:47 Fentanyl Drip Premix IV 1 mcg/kg/hr TITR COBY 7.395 mls/hr Administration Protocol 1 MCG/KG/HR Norepinephrine 4 mg in 250 mls @ 7.5 mls/hr 01/31/20 23:45 02/02/20 06:09 Levophed Drip 4 Mg/Ns 250 Ml IV 14 mcg/min TITR COBY 52.5 mls/hr Administration Protocol 2 MCG/MIN Sodium Chloride 100 mls @ 999 mls/hr 02/01/20 10:26 Nacl 0.9% IV KIRSTEN PRN Hypotension Piperacillin Sod/Tazobactam Sod 2.25 gm in 50 mls @ 100 mls/hr 02/01/20 14:00 02/02/20 06:09 Zosyn/Ns 2.25 Gm/50ml IV 100 mls/hr Q8HR COBY Administration Protocol Insulin Human Isoph/Insulin Regular 12 unit 01/25/20 09:00 02/02/20 09:00 Humulin 70/30 SUB-Q 12 unit BIDDIAB COBY Administration Insulin Human Regular 0 units 02/01/20 12:00 02/02/20 06:09 Humulin R SUB-Q 4 units Q6HR COBY Administration Protocol Magnesium Hydroxide 30 ml 01/17/20 23:06 Milk Of Magnesia PO Q4H PRN Constipation Morphine Sulfate 2 mg 01/17/20 23:06 01/30/20 20:39 Morphine IV 2 mg Q4H PRN Administration Pain, Moderate (4-6) Multi-Ingred Cream/Lotion/Oil/Oint 1 applic 01/31/20 21:48 Artificial Tears Ophth Oint OU Q4HR PRN Dry Eye(s) Nystatin 1 applic 01/29/20 14:00 02/02/20 09:23 Nystop TP 1 applic BID COBY Administration Ondansetron HCl 4 mg 01/17/20 23:06 01/30/20 20:47 Zofran IV 4 mg Q8H PRN Administration Nausea And Vomiting Simple Syrup 15 ml 02/01/20 09:53 Simple Syrup FEEDTUBE PRN PRN Hypoglycemia Simple Syrup 30 ml 02/01/20 09:53 Simple Syrup FEEDTUBE PRN PRN Hypoglycemia Sodium Bicarbonate 325 mg 02/01/20 09:53 Sodium Bicarbonate FEEDTUBE PRN PRN For Clogged Feeding Tube Sodium Chloride 10 ml 01/18/20 10:00 02/02/20 09:23 Sodium Chloride Flush Syringe 10 Ml IV 10 ml BID COBY Administration Sodium Chloride 10 ml 01/17/20 23:06 Sodium Chloride Flush Syringe 10 Ml IV PRN PRN LINE FLUSH Nutrition/Malnutrition Assess - Dietary Evaluation Nutrition/Malnutrition Findings: Nutrition Notes Start: 01/18/20 13:13 Freq: Status: Active Protocol: Document 02/01/20 08:31 LM (Rec: 02/01/20 08:41 LM [id number]) Nutrition Notes Need for Assessment generated from: MD Order Initial or Follow up Reassessment Current Diagnosis Diabetes,Sepsis Other Pertinent Diagnosis COVID-19 positive, LEV pnue, ( R) great toe wound Current Diet NPO Labs/Tests Na 135 BG 198 Pertinent Medications Levophed Height 6 ft Weight 147.9 kg [place] Body Weight (kg) 72.72 BMI 44.1 Weight Status Morbidly Obese Subjective/Other Information MD consult to evaluate nutritional intake and TF. Pt extubated on 01/31/20. Already following pt. Burn Absent Trauma Absent Current % PO Negligible Minimum of two criteria No physical signs of malnutrition #3 Nutrition Diagnosis Inadequate oral intake Etiology Mechanical vent As Evidenced by Signs and Symptoms Pt unable to consume PO #2 Nutrition Diagnosis Inadequate protein-energy intake Diagnosis Progress(for reassessment Continues documentation) #1 Nutrition Diagnosis Increased nutrient needs ( specify in comment below) Diagnosis Progress(for reassessment Continues documentation) Is patient on ventilator? Yes Is Patient Ambulatory and/or Out of Bed Yes REE-([place]-St. Jeor-ambulatory/OOB) [ 3004.300 [id number]] Kcal/Kg value to use for calculation 14 Approximate Energy Requirements Using 1 kcal/Kg Calculation Used for Recommendations Kcal/kg Additional Notes Protein: 183g (up to 2.5g/kg using IBW 73kg Fluid needs 1ml/kcal Nutrition Intervention Change Diet Order: TF Nutrition Support: Vital HP 1.0 at 75ml/hr Flush 50 ml q6h for hyponatremia Flush 50 ml q4h once resolved Kcal 1,800 Protein (gm) 158 Fluid (mL) 1,505 Goal #1 TF start/tolerance Anticipated Discharge Needs: unable to determine at this time Follow-Up By: 02/04/20 Additional Comments F/U for TF start/tolerance
--- NOTE | 2020-02-02 16:27 | Progress Note ---
Assessment and Plan Acute Hypoxemic Respiratory failure Severe Sepsis COVID-19 infection Left upper lobe pneumonia Diabetes II Morbid obesity Febrile illness Diabetic foot ulcer Hyponatremia Lactic acidosis - Very high inflammatory markers - ferritin 2758; CRP/LDH trending down (At risk for cytokine storm secondary to COVID and high risk for ARDS) - Conservative fluid management (use vasopressors including midodrine to support blood pressure). - ABG, CXR reviewed - VAP bundle addressed (continue aspiration precautions) - continue to wean supplemental oxygen to keep O2 sats > 90% - continue daily SAT's and SBT assessment - continue Bronchodilators (JURGEN) with pulm hygiene per RT - sedation target for RASS 0 to -1 - Accuchecks with glycemic control, keep blood glucose 140-180 mg/dL while critically ill (Avoid hypoglycemia) - Avoid nephrotoxins, adjust and dose all medications fro GFR and CrCL - continue GI & VTE prophylaxis - continue wound care per RN / WCT - continue QT monitoring while on plaqenil (Stop if QT interval > 500) - Follow IL-6 (sent out) to evaluate cytokine release syndrome due to COVID and consider IV tocilizumab (Actemra) (off-label use)- per ID recommendations - COVID-19 precautions per [facility] protocol - continue contact, droplet and airborne precautions - continue surgical evaluation re: ? abscess as source of fevers - prn analgesia per CPOT score - mobility protocols to prevent pressure ulcers - continued smoking abstinence strongly counseled at the bedside prior to decomp ensation - GI & VTE prophylaxis - Flu & pneumovax per protocol - continue other care per attending / other consultants ... re-evaluate in am & prn CONDITION: CRITICAL PROGNOSIS: GUARDED CODE STATUS: FULL CODE The high probability of a clinically significant, sudden or life threatening deterioration of the [pulmonary, renal, neurology, endocrine ] system(s) required my full and direct attention, intervention and personal management. The aggregate critical care time was [35] minutes. This time is in addition to time spent performing reported procedures but includes the following: [x] Data Review and interpretation [x] Patient assessment and monitoring of vital signs [x] Documentation [x] Medication orders and management Subjective Date of service: 02/02/20 Principal diagnosis: Severe Sepsis; LEV PNA; DM II; COVID-19 infection; CIPRIANO Interval history: Patient is seen today for: Acute Hypoxemic Respiratory failure; Severe Sepsis; LEV pneumonia; Diabetes II; Morbid obesity; COVID-19 infection; Diabetic foot ulcer; Hyponatremia; Lactic acidosis Seen and examined at bedside; 24hour events reviewed; nursing and respiratory care staff consulted; no adverse overnight events reported to me; resting peacefully in bed; now on MVS; Objective Vital Signs - 12hr 02/02/20 02/02/20 02/02/20 04:30 04:45 05:01 Temperature Pulse Rate 85 81 82 Pulse Rate [ From Monitor] Respiratory 30 H 30 H 30 H Rate Blood Pressure 139/65 141/68 141/70 O2 Sat by Pulse 100 99 97 Oximetry O2 Sat by Pulse Oximetry [ Anterior Bilateral Throughout] 02/02/20 02/02/20 02/02/20 05:15 05:31 05:45 Temperature Pulse Rate 84 84 82 Pulse Rate [ From Monitor] Respiratory 30 H 30 H 30 H Rate Blood Pressure 150/70 145/69 152/72 O2 Sat by Pulse 99 99 99 Oximetry O2 Sat by Pulse Oximetry [ Anterior Bilateral Throughout] 02/02/20 02/02/20 02/02/20 06:00 06:01 06:15 Temperature Pulse Rate 75 87 74 Pulse Rate [ From Monitor] Respiratory 30 H 30 H Rate Blood Pressure 120/58 126/66 O2 Sat by Pulse 99 99 Oximetry O2 Sat by Pulse Oximetry [ Anterior Bilateral Throughout] 02/02/20 02/02/20 02/02/20 06:31 06:45 07:01 Temperature Pulse Rate 77 75 81 Pulse Rate [ From Monitor] Respiratory 30 H 30 H 29 H Rate Blood Pressure 154/72 160/76 158/76 O2 Sat by Pulse 98 99 97 Oximetry O2 Sat by Pulse Oximetry [ Anterior Bilateral Throughout] 02/02/20 02/02/20 02/02/20 07:15 07:31 07:45 Temperature Pulse Rate 84 77 76 Pulse Rate [ From Monitor] Respiratory 30 H 30 H 30 H Rate Blood Pressure 159/74 157/74 157/73 O2 Sat by Pulse 99 97 99 Oximetry O2 Sat by Pulse Oximetry [ Anterior Bilateral Throughout] 02/02/20 02/02/20 02/02/20 08:00 08:01 08:15 Temperature 99.8 F H Pulse Rate 76 87 Pulse Rate [ 78 From Monitor] Respiratory 30 H 30 H 12 Rate Blood Pressure 155/77 158/80 O2 Sat by Pulse 99 97 98 Oximetry O2 Sat by Pulse Oximetry [ Anterior Bilateral Throughout] 02/02/20 02/02/20 02/02/20 08:24 08:31 08:45 Temperature Pulse Rate 89 87 84 Pulse Rate [ From Monitor] Respiratory 20 30 H Rate Blood Pressure 183/87 183/87 142/67 O2 Sat by Pulse 99 98 98 Oximetry O2 Sat by Pulse Oximetry [ Anterior Bilateral Throughout] 02/02/20 02/02/20 02/02/20 09:01 09:15 09:31 Temperature Pulse Rate 82 80 81 Pulse Rate [ From Monitor] Respiratory 30 H 30 H 30 H Rate Blood Pressure 144/73 150/72 146/71 O2 Sat by Pulse 98 99 99 Oximetry O2 Sat by Pulse Oximetry [ Anterior Bilateral Throughout] 02/02/20 02/02/20 02/02/20 09:45 09:59 10:01 Temperature Pulse Rate 80 77 78 Pulse Rate [ From Monitor] Respiratory 30 H 30 H Rate Blood Pressure 147/72 147/75 O2 Sat by Pulse 99 99 Oximetry O2 Sat by Pulse Oximetry [ Anterior Bilateral Throughout] 02/02/20 02/02/20 02/02/20 10:15 10:20 10:31 Temperature 99.8 F H Pulse Rate 78 76 76 Pulse Rate [ From Monitor] Respiratory 30 H 18 30 H Rate Blood Pressure 150/74 150/74 150/74 O2 Sat by Pulse 99 100 Oximetry O2 Sat by Pulse 100 Oximetry [ Anterior Bilateral Throughout] 02/02/20 02/02/20 02/02/20 10:45 11:01 11:15 Temperature Pulse Rate 77 81 81 Pulse Rate [ From Monitor] Respiratory 30 H 30 H 30 H Rate Blood Pressure 147/75 142/71 119/68 O2 Sat by Pulse 100 99 100 Oximetry O2 Sat by Pulse Oximetry [ Anterior Bilateral Throughout] 02/02/20 02/02/20 02/02/20 11:31 11:45 12:00 Temperature 99.1 F Pulse Rate 80 81 81 Pulse Rate [ 80 From Monitor] Respiratory 30 H 30 H 30 H Rate Blood Pressure 121/68 122/68 O2 Sat by Pulse 100 100 100 Oximetry O2 Sat by Pulse Oximetry [ Anterior Bilateral Throughout] 02/02/20 02/02/20 02/02/20 12:01 12:15 12:26 Temperature Pulse Rate 82 82 81 Pulse Rate [ From Monitor] Respiratory 30 H 30 H Rate Blood Pressure 119/66 119/66 O2 Sat by Pulse 100 100 100 Oximetry O2 Sat by Pulse Oximetry [ Anterior Bilateral Throughout] 02/02/20 02/02/20 02/02/20 12:31 12:45 13:00 Temperature Pulse Rate 83 84 82 Pulse Rate [ From Monitor] Respiratory 30 H 18 15 Rate Blood Pressure 119/66 119/66 115/73 O2 Sat by Pulse 100 99 Oximetry O2 Sat by Pulse Oximetry [ Anterior Bilateral Throughout] 02/02/20 02/02/20 02/02/20 13:15 13:30 13:45 Temperature Pulse Rate 82 79 79 Pulse Rate [ From Monitor] Respiratory 30 H 30 H 30 H Rate Blood Pressure 99/54 122/63 111/59 O2 Sat by Pulse 100 100 100 Oximetry O2 Sat by Pulse Oximetry [ Anterior Bilateral Throughout] 02/02/20 02/02/20 02/02/20 14:00 14:15 14:32 Temperature Pulse Rate 87 78 81 Pulse Rate [ From Monitor] Respiratory 30 H 30 H Rate Blood Pressure 122/67 125/68 124/64 O2 Sat by Pulse 100 100 99 Oximetry O2 Sat by Pulse Oximetry [ Anterior Bilateral Throughout] Constitutional: alert, other (young obese AAF, normocephalic with mildly increased resp effort at rest) Eyes: non-icteric ENT: oropharynx moist Neck: supple, no lymphadenopathy, no JVD Effort: mildly labored Ascultation: Bilateral: diminished breath sounds, rales (scant in bases) Percussion: Bilateral: not dull Cardiovascular: regular rate and rhythm Gastrointestinal: normoactive bowel sounds, soft, non-tender, non-distended Integumentary: normal Extremities: no cyanosis, no edema, pulses normal, no ischemia or petechiae Neurologic: normal mental status, non-focal exam, pupils equal and round, CN II- XII normal Psychiatric: mood appropriate, affect normal CBC and BMP: 02/02/20 04:30 02/02/20 04:30 ABG, PT/INR, D-dimer: ABG ABG pH 7.447 pH Units (7.350-7.450) 02/02/20 04:17 ABG pCO2 30.3 mm Hg 02/02/20 04:17 ABG pO2 86.3 mm Hg (80.0-90.0) 02/02/20 04:17 ABG O2 Saturation 97.2 % (95.0-99.0) 02/02/20 04:17 PT/INR, D-dimer PT 15.6 Sec. (12.2-14.9) H 01/17/20 18:28 INR 1.22 (0.87-1.13) H 01/17/20 18:28 D-Dimer 795.93 ng/mlDDU (0-234) H 02/02/20 04:30 Abnormal lab findings: Abnormal Labs 01/17/20 01/17/20 01/17/20 18:28 18:28 18:28 WBC RBC Hgb Hct MCV MCH 26 L RDW Lymph % (Auto) 9.3 L Lymph # 1.0 L Seg Neutrophils % 86.7 H Seg Neuts % (Manual) Lymphocytes % (Manual) Nucleated RBC % Seg Neutrophils # 9.6 H Seg Neutrophils # Man Lymphocytes # (Manual) PT 15.6 H INR 1.22 H D-Dimer ABG pH ABG pO2 ABG HCO3 ABG O2 Saturation ABG Base Excess ABG Hemoglobin Oxyhemoglobin Sodium 126 L Potassium Chloride 89.3 L Carbon Dioxide 19 L BUN Creatinine Glucose 397 H POC Glucose Hemoglobin A1c Lactic Acid Calcium Magnesium Ferritin AST ALT Alkaline Phosphatase Lactate Dehydrogenase C-Reactive Protein Total Protein 9.0 H Albumin Vancomycin Trough Random Vancomycin 01/17/20 01/17/20 01/17/20 18:28 22:58 22:58 WBC RBC Hgb Hct MCV MCH RDW Lymph % (Auto) Lymph # Seg Neutrophils % Seg Neuts % (Manual) Lymphocytes % (Manual) Nucleated RBC % Seg Neutrophils # Seg Neutrophils # Man Lymphocytes # (Manual) PT INR D-Dimer ABG pH ABG pO2 ABG HCO3 ABG O2 Saturation ABG Base Excess ABG Hemoglobin Oxyhemoglobin Sodium Potassium Chloride Carbon Dioxide BUN Creatinine Glucose POC Glucose Hemoglobin A1c Lactic Acid 3.40 H* 2.30 H* Calcium Magnesium 1.50 L Ferritin AST ALT Alkaline Phosphatase Lactate Dehydrogenase C-Reactive Protein 16.60 H Total Protein Albumin Vancomycin Trough Random Vancomycin 01/18/20 01/18/20 01/18/20 00:46 06:34 08:30 WBC RBC Hgb Hct MCV MCH 26 L RDW 12.7 L Lymph % (Auto) Lymph # Seg Neutrophils % 80.1 H Seg Neuts % (Manual) Lymphocytes % (Manual) Nucleated RBC % Seg Neutrophils # Seg Neutrophils # Man Lymphocytes # (Manual) PT INR D-Dimer ABG pH ABG pO2 ABG HCO3 ABG O2 Saturation ABG Base Excess ABG Hemoglobin Oxyhemoglobin Sodium Potassium Chloride Carbon Dioxide BUN Creatinine Glucose POC Glucose 338 H 266 H Hemoglobin A1c Lactic Acid Calcium Magnesium Ferritin AST ALT Alkaline Phosphatase Lactate Dehydrogenase C-Reactive Protein Total Protein Albumin Vancomycin Trough Random Vancomycin 01/18/20 01/18/20 01/18/20 08:30 08:35 12:30 WBC RBC Hgb Hct MCV MCH RDW Lymph % (Auto) Lymph # Seg Neutrophils % Seg Neuts % (Manual) Lymphocytes % (Manual) Nucleated RBC % Seg Neutrophils # Seg Neutrophils # Man Lymphocytes # (Manual) PT INR D-Dimer ABG pH ABG pO2 ABG HCO3 ABG O2 Saturation ABG Base Excess ABG Hemoglobin Oxyhemoglobin Sodium 135 L D Potassium Chloride Carbon Dioxide BUN Creatinine Glucose 250 H POC Glucose 224 H 213 H Hemoglobin A1c Lactic Acid Calcium Magnesium Ferritin AST ALT Alkaline Phosphatase Lactate Dehydrogenase C-Reactive Protein Total Protein Albumin Vancomycin Trough Random Vancomycin 01/18/20 01/18/20 01/18/20 12:47 16:56 22:03 WBC RBC Hgb Hct MCV MCH RDW Lymph % (Auto) Lymph # Seg Neutrophils % Seg Neuts % (Manual) Lymphocytes % (Manual) Nucleated RBC % Seg Neutrophils # Seg Neutrophils # Man Lymphocytes # (Manual) PT INR D-Dimer ABG pH ABG pO2 ABG HCO3 ABG O2 Saturation ABG Base Excess ABG Hemoglobin Oxyhemoglobin Sodium Potassium Chloride Carbon Dioxide BUN Creatinine Glucose POC Glucose 270 H 239 H Hemoglobin A1c 11.6 H Lactic Acid Calcium Magnesium Ferritin AST ALT Alkaline Phosphatase Lactate Dehydrogenase C-Reactive Protein Total Protein Albumin Vancomycin Trough Random Vancomycin 01/19/20 01/19/20 01/19/20 06:15 11:48 13:09 WBC RBC Hgb Hct MCV MCH 26 L RDW Lymph % (Auto) Lymph # Seg Neutrophils % Seg Neuts % (Manual) Lymphocytes % (Manual) Nucleated RBC % Seg Neutrophils # Seg Neutrophils # Man Lymphocytes # (Manual) PT INR D-Dimer ABG pH ABG pO2 ABG HCO3 ABG O2 Saturation ABG Base Excess ABG Hemoglobin Oxyhemoglobin Sodium Potassium Chloride Carbon Dioxide BUN Creatinine Glucose POC Glucose 248 H 268 H Hemoglobin A1c Lactic Acid Calcium Magnesium Ferritin AST ALT Alkaline Phosphatase Lactate Dehydrogenase C-Reactive Protein Total Protein Albumin Vancomycin Trough Random Vancomycin 01/19/20 01/19/20 01/20/20 17:44 21:09 09:03 WBC RBC Hgb Hct MCV MCH RDW Lymph % (Auto) Lymph # Seg Neutrophils % Seg Neuts % (Manual) Lymphocytes % (Manual) Nucleated RBC % Seg Neutrophils # Seg Neutrophils # Man Lymphocytes # (Manual) PT INR D-Dimer ABG pH ABG pO2 ABG HCO3 ABG O2 Saturation ABG Base Excess ABG Hemoglobin Oxyhemoglobin Sodium Potassium Chloride Carbon Dioxide BUN Creatinine Glucose POC Glucose 214 H 261 H 241 H Hemoglobin A1c Lactic Acid Calcium Magnesium Ferritin AST ALT Alkaline Phosphatase Lactate Dehydrogenase C-Reactive Protein Total Protein Albumin Vancomycin Trough Random Vancomycin 01/20/20 01/20/20 01/20/20 12:10 17:00 19:43 WBC RBC Hgb Hct MCV MCH RDW Lymph % (Auto) Lymph # Seg Neutrophils % Seg Neuts % (Manual) Lymphocytes % (Manual) Nucleated RBC % Seg Neutrophils # Seg Neutrophils # Man Lymphocytes # (Manual) PT INR D-Dimer ABG pH ABG pO2 ABG HCO3 ABG O2 Saturation ABG Base Excess ABG Hemoglobin Oxyhemoglobin Sodium Potassium Chloride Carbon Dioxide BUN Creatinine Glucose POC Glucose 284 H 272 H Hemoglobin A1c Lactic Acid Calcium Magnesium Ferritin AST ALT Alkaline Phosphatase Lactate Dehydrogenase C-Reactive Protein Total Protein Albumin Vancomycin Trough 4.0 L Random Vancomycin 01/20/20 01/21/20 01/21/20 22:39 09:29 11:41 WBC RBC Hgb Hct MCV MCH 26 L RDW Lymph % (Auto) Lymph # Seg Neutrophils % Seg Neuts % (Manual) Lymphocytes % (Manual) Nucleated RBC % Seg Neutrophils # Seg Neutrophils # Man Lymphocytes # (Manual) PT INR D-Dimer ABG pH ABG pO2 ABG HCO3 ABG O2 Saturation ABG Base Excess ABG Hemoglobin Oxyhemoglobin Sodium Potassium Chloride Carbon Dioxide BUN Creatinine Glucose POC Glucose 248 H 238 H Hemoglobin A1c Lactic Acid Calcium Magnesium Ferritin AST ALT Alkaline Phosphatase Lactate Dehydrogenase C-Reactive Protein Total Protein Albumin Vancomycin Trough Random Vancomycin 01/21/20 01/21/20 01/21/20 11:41 12:27 16:55 WBC RBC Hgb Hct MCV MCH RDW Lymph % (Auto) Lymph # Seg Neutrophils % Seg Neuts % (Manual) Lymphocytes % (Manual) Nucleated RBC % Seg Neutrophils # Seg Neutrophils # Man Lymphocytes # (Manual) PT INR D-Dimer ABG pH ABG pO2 ABG HCO3 ABG O2 Saturation ABG Base Excess ABG Hemoglobin Oxyhemoglobin Sodium 132 L Potassium 3.5 L Chloride 97.0 L Carbon Dioxide 19 L BUN Creatinine Glucose 274 H POC Glucose 264 H 261 H Hemoglobin A1c Lactic Acid Calcium Magnesium Ferritin AST ALT Alkaline Phosphatase Lactate Dehydrogenase C-Reactive Protein Total Protein Albumin Vancomycin Trough Random Vancomycin 01/21/20 01/22/20 01/22/20 22:39 09:05 12:57 WBC RBC Hgb Hct MCV MCH RDW Lymph % (Auto) Lymph # Seg Neutrophils % Seg Neuts % (Manual) Lymphocytes % (Manual) Nucleated RBC % Seg Neutrophils # Seg Neutrophils # Man Lymphocytes # (Manual) PT INR D-Dimer ABG pH ABG pO2 ABG HCO3 ABG O2 Saturation ABG Base Excess ABG Hemoglobin Oxyhemoglobin Sodium Potassium Chloride Carbon Dioxide BUN Creatinine Glucose POC Glucose 243 H 258 H 252 H Hemoglobin A1c Lactic Acid Calcium Magnesium Ferritin AST ALT Alkaline Phosphatase Lactate Dehydrogenase C-Reactive Protein Total Protein Albumin Vancomycin Trough Random Vancomycin 01/22/20 01/22/20 01/23/20 17:14 21:30 09:03 WBC RBC Hgb Hct MCV MCH RDW Lymph % (Auto) Lymph # Seg Neutrophils % Seg Neuts % (Manual) Lymphocytes % (Manual) Nucleated RBC % Seg Neutrophils # Seg Neutrophils # Man Lymphocytes # (Manual) PT INR D-Dimer ABG pH ABG pO2 ABG HCO3 ABG O2 Saturation ABG Base Excess ABG Hemoglobin Oxyhemoglobin Sodium Potassium Chloride Carbon Dioxide BUN Creatinine Glucose POC Glucose 306 H 217 H 156 H Hemoglobin A1c Lactic Acid Calcium Magnesium Ferritin AST ALT Alkaline Phosphatase Lactate Dehydrogenase C-Reactive Protein Total Protein Albumin Vancomycin Trough Random Vancomycin 01/23/20 01/23/20 01/23/20 10:36 11:12 17:11 WBC RBC Hgb Hct MCV MCH RDW Lymph % (Auto) Lymph # Seg Neutrophils % Seg Neuts % (Manual) Lymphocytes % (Manual) Nucleated RBC % Seg Neutrophils # Seg Neutrophils # Man Lymphocytes # (Manual) PT INR D-Dimer ABG pH ABG pO2 ABG HCO3 ABG O2 Saturation ABG Base Excess ABG Hemoglobin Oxyhemoglobin Sodium Potassium 3.0 L Chloride Carbon Dioxide 21 L BUN Creatinine Glucose 266 H POC Glucose 244 H 238 H Hemoglobin A1c Lactic Acid Calcium 8.3 L Magnesium Ferritin AST ALT Alkaline Phosphatase Lactate Dehydrogenase C-Reactive Protein Total Protein Albumin Vancomycin Trough Random Vancomycin 01/23/20 01/24/20 01/24/20 22:57 06:03 12:12 WBC RBC Hgb Hct MCV MCH RDW Lymph % (Auto) Lymph # Seg Neutrophils % Seg Neuts % (Manual) Lymphocytes % (Manual) Nucleated RBC % Seg Neutrophils # Seg Neutrophils # Man Lymphocytes # (Manual) PT INR D-Dimer ABG pH ABG pO2 ABG HCO3 ABG O2 Saturation ABG Base Excess ABG Hemoglobin Oxyhemoglobin Sodium Potassium 3.2 L Chloride Carbon Dioxide 19 L BUN Creatinine Glucose 231 H POC Glucose 228 H 210 H Hemoglobin A1c Lactic Acid Calcium 8.2 L Magnesium Ferritin AST ALT Alkaline Phosphatase Lactate Dehydrogenase C-Reactive Protein Total Protein Albumin Vancomycin Trough Random Vancomycin 01/24/20 01/24/20 01/24/20 12:50 19:01 21:49 WBC RBC Hgb Hct MCV MCH RDW Lymph % (Auto) Lymph # Seg Neutrophils % Seg Neuts % (Manual) Lymphocytes % (Manual) Nucleated RBC % Seg Neutrophils # Seg Neutrophils # Man Lymphocytes # (Manual) PT INR D-Dimer ABG pH 7.485 H ABG pO2 63.4 L ABG HCO3 ABG O2 Saturation ABG Base Excess ABG Hemoglobin 5.0 L Oxyhemoglobin Sodium Potassium Chloride Carbon Dioxide BUN Creatinine Glucose POC Glucose 183 H 193 H Hemoglobin A1c Lactic Acid Calcium Magnesium Ferritin AST ALT Alkaline Phosphatase Lactate Dehydrogenase C-Reactive Protein Total Protein Albumin Vancomycin Trough Random Vancomycin 01/25/20 01/25/20 01/25/20 09:13 16:58 22:23 WBC RBC Hgb Hct MCV MCH RDW Lymph % (Auto) Lymph # Seg Neutrophils % Seg Neuts % (Manual) Lymphocytes % (Manual) Nucleated RBC % Seg Neutrophils # Seg Neutrophils # Man Lymphocytes # (Manual) PT INR D-Dimer ABG pH ABG pO2 ABG HCO3 ABG O2 Saturation ABG Base Excess ABG Hemoglobin Oxyhemoglobin Sodium Potassium Chloride Carbon Dioxide BUN Creatinine Glucose POC Glucose 196 H 231 H 159 H Hemoglobin A1c Lactic Acid Calcium Magnesium Ferritin AST ALT Alkaline Phosphatase Lactate Dehydrogenase C-Reactive Protein Total Protein Albumin Vancomycin Trough Random Vancomycin 01/26/20 01/26/20 01/26/20 05:40 05:40 05:40 WBC 16.4 H RBC Hgb Hct MCV MCH 26 L RDW 12.9 L Lymph % (Auto) Lymph # Seg Neutrophils % Seg Neuts % (Manual) 90.0 H Lymphocytes % (Manual) 1.0 L Nucleated RBC % 1.0 H Seg Neutrophils # Seg Neutrophils # Man 14.8 H Lymphocytes # (Manual) 0.2 L PT INR D-Dimer 2624.11 H ABG pH ABG pO2 ABG HCO3 ABG O2 Saturation ABG Base Excess ABG Hemoglobin Oxyhemoglobin Sodium 135 L Potassium 2.7 L* Chloride Carbon Dioxide 21 L BUN Creatinine Glucose 132 H POC Glucose Hemoglobin A1c Lactic Acid Calcium 8.0 L Magnesium Ferritin AST ALT Alkaline Phosphatase Lactate Dehydrogenase C-Reactive Protein Total Protein Albumin Vancomycin Trough Random Vancomycin 01/26/20 01/26/20 01/26/20 05:40 05:40 08:58 WBC RBC Hgb Hct MCV MCH RDW Lymph % (Auto) Lymph # Seg Neutrophils % Seg Neuts % (Manual) Lymphocytes % (Manual) Nucleated RBC % Seg Neutrophils # Seg Neutrophils # Man Lymphocytes # (Manual) PT INR D-Dimer ABG pH ABG pO2 ABG HCO3 ABG O2 Saturation ABG Base Excess ABG Hemoglobin Oxyhemoglobin Sodium Potassium Chloride Carbon Dioxide BUN Creatinine Glucose POC Glucose 131 H Hemoglobin A1c Lactic Acid Calcium Magnesium Ferritin 2758.0 H AST ALT Alkaline Phosphatase Lactate Dehydrogenase C-Reactive Protein 26.90 H Total Protein Albumin Vancomycin Trough Random Vancomycin 01/26/20 01/26/20 01/26/20 13:00 16:30 21:22 WBC RBC Hgb Hct MCV MCH RDW Lymph % (Auto) Lymph # Seg Neutrophils % Seg Neuts % (Manual) Lymphocytes % (Manual) Nucleated RBC % Seg Neutrophils # Seg Neutrophils # Man Lymphocytes # (Manual) PT INR D-Dimer ABG pH ABG pO2 ABG HCO3 ABG O2 Saturation ABG Base Excess ABG Hemoglobin Oxyhemoglobin Sodium Potassium Chloride Carbon Dioxide BUN Creatinine Glucose POC Glucose 136 H 146 H 139 H Hemoglobin A1c Lactic Acid Calcium Magnesium Ferritin AST ALT Alkaline Phosphatase Lactate Dehydrogenase C-Reactive Protein Total Protein Albumin Vancomycin Trough Random Vancomycin 01/27/20 01/27/20 01/27/20 05:14 07:37 12:05 WBC RBC Hgb Hct MCV MCH RDW Lymph % (Auto) Lymph # Seg Neutrophils % Seg Neuts % (Manual) Lymphocytes % (Manual) Nucleated RBC % Seg Neutrophils # Seg Neutrophils # Man Lymphocytes # (Manual) PT INR D-Dimer ABG pH ABG pO2 ABG HCO3 ABG O2 Saturation ABG Base Excess ABG Hemoglobin Oxyhemoglobin Sodium 135 L Potassium 3.4 L D Chloride Carbon Dioxide 17 L BUN 24 H Creatinine 1.4 H D Glucose 143 H POC Glucose 133 H 141 H Hemoglobin A1c Lactic Acid Calcium 7.6 L Magnesium Ferritin AST ALT Alkaline Phosphatase Lactate Dehydrogenase C-Reactive Protein Total Protein Albumin Vancomycin Trough Random Vancomycin 01/27/20 01/27/20 01/27/20 17:37 22:14 23:53 WBC RBC Hgb Hct MCV MCH RDW Lymph % (Auto) Lymph # Seg Neutrophils % Seg Neuts % (Manual) Lymphocytes % (Manual) Nucleated RBC % Seg Neutrophils # Seg Neutrophils # Man Lymphocytes # (Manual) PT INR D-Dimer 2675.43 H ABG pH ABG pO2 ABG HCO3 ABG O2 Saturation ABG Base Excess ABG Hemoglobin Oxyhemoglobin Sodium Potassium Chloride Carbon Dioxide BUN Creatinine Glucose POC Glucose 153 H 124 H Hemoglobin A1c Lactic Acid Calcium Magnesium Ferritin AST ALT Alkaline Phosphatase Lactate Dehydrogenase C-Reactive Protein Total Protein Albumin Vancomycin Trough Random Vancomycin 01/27/20 01/27/20 01/28/20 23:53 23:53 08:36 WBC RBC Hgb Hct MCV MCH RDW Lymph % (Auto) Lymph # Seg Neutrophils % Seg Neuts % (Manual) Lymphocytes % (Manual) Nucleated RBC % Seg Neutrophils # Seg Neutrophils # Man Lymphocytes # (Manual) PT INR D-Dimer ABG pH ABG pO2 ABG HCO3 ABG O2 Saturation ABG Base Excess ABG Hemoglobin Oxyhemoglobin Sodium Potassium Chloride Carbon Dioxide BUN Creatinine Glucose POC Glucose 165 H Hemoglobin A1c Lactic Acid Calcium Magnesium Ferritin 3523.0 H AST ALT Alkaline Phosphatase Lactate Dehydrogenase 1132 H C-Reactive Protein 15.60 H Total Protein Albumin Vancomycin Trough Random Vancomycin 01/28/20 01/28/20 01/28/20 10:00 10:00 12:42 WBC RBC Hgb Hct MCV MCH RDW Lymph % (Auto) Lymph # Seg Neutrophils % Seg Neuts % (Manual) Lymphocytes % (Manual) Nucleated RBC % Seg Neutrophils # Seg Neutrophils # Man Lymphocytes # (Manual) PT INR D-Dimer ABG pH ABG pO2 ABG HCO3 ABG O2 Saturation ABG Base Excess ABG Hemoglobin Oxyhemoglobin Sodium 131 L Potassium 3.5 L Chloride Carbon Dioxide 16 L BUN 51 H Creatinine 3.5 H D Glucose 180 H POC Glucose 188 H Hemoglobin A1c Lactic Acid Calcium 7.5 L Magnesium Ferritin AST ALT Alkaline Phosphatase Lactate Dehydrogenase C-Reactive Protein Total Protein Albumin Vancomycin Trough Random Vancomycin 65.8 H 01/28/20 01/28/20 01/29/20 17:27 22:06 07:29 WBC 17.0 H RBC Hgb 9.6 L Hct 29.5 L MCV MCH 26 L RDW Lymph % (Auto) Lymph # Seg Neutrophils % Seg Neuts % (Manual) Lymphocytes % (Manual) Nucleated RBC % Seg Neutrophils # Seg Neutrophils # Man Lymphocytes # (Manual) PT INR D-Dimer ABG pH ABG pO2 ABG HCO3 ABG O2 Saturation ABG Base Excess ABG Hemoglobin Oxyhemoglobin Sodium Potassium Chloride Carbon Dioxide BUN Creatinine Glucose POC Glucose 161 H 158 H Hemoglobin A1c Lactic Acid Calcium Magnesium Ferritin AST ALT Alkaline Phosphatase Lactate Dehydrogenase C-Reactive Protein Total Protein Albumin Vancomycin Trough Random Vancomycin 01/29/20 01/29/20 01/29/20 07:29 08:20 11:54 WBC RBC Hgb Hct MCV MCH RDW Lymph % (Auto) Lymph # Seg Neutrophils % Seg Neuts % (Manual) Lymphocytes % (Manual) Nucleated RBC % Seg Neutrophils # Seg Neutrophils # Man Lymphocytes # (Manual) PT INR D-Dimer ABG pH ABG pO2 ABG HCO3 ABG O2 Saturation ABG Base Excess ABG Hemoglobin Oxyhemoglobin Sodium 133 L Potassium Chloride Carbon Dioxide 15 L BUN 69 H Creatinine 4.1 H Glucose 161 H POC Glucose 170 H Hemoglobin A1c Lactic Acid Calcium 7.6 L Magnesium Ferritin > 2000.0 H AST ALT Alkaline Phosphatase Lactate Dehydrogenase C-Reactive Protein Total Protein Albumin Vancomycin Trough Random Vancomycin 01/29/20 01/29/20 01/29/20 11:54 11:54 12:55 WBC RBC Hgb Hct MCV MCH RDW Lymph % (Auto) Lymph # Seg Neutrophils % Seg Neuts % (Manual) Lymphocytes % (Manual) Nucleated RBC % Seg Neutrophils # Seg Neutrophils # Man Lymphocytes # (Manual) PT INR D-Dimer 1499 H ABG pH ABG pO2 ABG HCO3 ABG O2 Saturation ABG Base Excess ABG Hemoglobin Oxyhemoglobin Sodium Potassium Chloride Carbon Dioxide BUN Creatinine Glucose POC Glucose 142 H Hemoglobin A1c Lactic Acid Calcium Magnesium Ferritin AST ALT Alkaline Phosphatase Lactate Dehydrogenase 946 H C-Reactive Protein 13.30 H Total Protein Albumin Vancomycin Trough Random Vancomycin 01/29/20 01/29/20 01/30/20 16:19 22:13 05:19 WBC RBC Hgb Hct MCV MCH RDW Lymph % (Auto) Lymph # Seg Neutrophils % Seg Neuts % (Manual) Lymphocytes % (Manual) Nucleated RBC % Seg Neutrophils # Seg Neutrophils # Man Lymphocytes # (Manual) PT INR D-Dimer ABG pH ABG pO2 ABG HCO3 ABG O2 Saturation ABG Base Excess ABG Hemoglobin Oxyhemoglobin Sodium Potassium Chloride Carbon Dioxide BUN Creatinine Glucose POC Glucose 146 H 142 H Hemoglobin A1c Lactic Acid Calcium Magnesium Ferritin AST ALT Alkaline Phosphatase Lactate Dehydrogenase C-Reactive Protein Total Protein Albumin Vancomycin Trough 45.4 H Random Vancomycin 01/30/20 01/30/20 01/30/20 05:19 08:04 12:21 WBC RBC Hgb Hct MCV MCH RDW Lymph % (Auto) Lymph # Seg Neutrophils % Seg Neuts % (Manual) Lymphocytes % (Manual) Nucleated RBC % Seg Neutrophils # Seg Neutrophils # Man Lymphocytes # (Manual) PT INR D-Dimer ABG pH ABG pO2 ABG HCO3 ABG O2 Saturation ABG Base Excess ABG Hemoglobin Oxyhemoglobin Sodium 134 L Potassium Chloride Carbon Dioxide 14 L BUN 87 H Creatinine 4.4 H Glucose 172 H POC Glucose 153 H 147 H Hemoglobin A1c Lactic Acid Calcium 7.6 L Magnesium Ferritin AST 152 H ALT 124 H Alkaline Phosphatase Lactate Dehydrogenase C-Reactive Protein Total Protein 5.5 L Albumin 1.8 L Vancomycin Trough Random Vancomycin 01/30/20 01/30/20 01/31/20 16:51 22:54 03:49 WBC RBC Hgb Hct MCV MCH RDW Lymph % (Auto) Lymph # Seg Neutrophils % Seg Neuts % (Manual) Lymphocytes % (Manual) Nucleated RBC % Seg Neutrophils # Seg Neutrophils # Man Lymphocytes # (Manual) PT INR D-Dimer 801.37 H ABG pH ABG pO2 ABG HCO3 ABG O2 Saturation ABG Base Excess ABG Hemoglobin Oxyhemoglobin Sodium Potassium Chloride Carbon Dioxide BUN Creatinine Glucose POC Glucose 119 H 129 H Hemoglobin A1c Lactic Acid Calcium Magnesium Ferritin AST ALT Alkaline Phosphatase Lactate Dehydrogenase C-Reactive Protein Total Protein Albumin Vancomycin Trough Random Vancomycin 01/31/20 01/31/20 01/31/20 03:49 03:49 03:49 WBC 16.1 H RBC Hgb Hct MCV MCH 25 L RDW Lymph % (Auto) Lymph # Seg Neutrophils % Seg Neuts % (Manual) Lymphocytes % (Manual) Nucleated RBC % Seg Neutrophils # Seg Neutrophils # Man Lymphocytes # (Manual) PT INR D-Dimer ABG pH ABG pO2 ABG HCO3 ABG O2 Saturation ABG Base Excess ABG Hemoglobin Oxyhemoglobin Sodium 134 L Potassium Chloride Carbon Dioxide 13 L BUN 97 H Creatinine 4.8 H Glucose 123 H POC Glucose Hemoglobin A1c Lactic Acid Calcium 7.6 L Magnesium Ferritin 3101.0 H AST 112 H ALT 112 H Alkaline Phosphatase 145 H Lactate Dehydrogenase 896 H C-Reactive Protein 11.10 H Total Protein 5.5 L Albumin 1.7 L Vancomycin Trough Random Vancomycin 01/31/20 01/31/20 01/31/20 08:00 11:48 16:14 WBC RBC Hgb Hct MCV MCH RDW Lymph % (Auto) Lymph # Seg Neutrophils % Seg Neuts % (Manual) Lymphocytes % (Manual) Nucleated RBC % Seg Neutrophils # Seg Neutrophils # Man Lymphocytes # (Manual) PT INR D-Dimer ABG pH ABG pO2 ABG HCO3 ABG O2 Saturation ABG Base Excess ABG Hemoglobin Oxyhemoglobin Sodium Potassium Chloride Carbon Dioxide BUN Creatinine Glucose POC Glucose 133 H 136 H 151 H Hemoglobin A1c Lactic Acid Calcium Magnesium Ferritin AST ALT Alkaline Phosphatase Lactate Dehydrogenase C-Reactive Protein Total Protein Albumin Vancomycin Trough Random Vancomycin 01/31/20 01/31/20 02/01/20 21:37 22:35 03:49 WBC 19.3 H RBC 3.53 L Hgb 9.0 L Hct 28.1 L MCV MCH 26 L RDW Lymph % (Auto) Lymph # Seg Neutrophils % Seg Neuts % (Manual) Lymphocytes % (Manual) Nucleated RBC % Seg Neutrophils # Seg Neutrophils # Man Lymphocytes # (Manual) PT INR D-Dimer ABG pH 7.226 L ABG pO2 77.9 L ABG HCO3 15.2 L ABG O2 Saturation 93.5 L ABG Base Excess -11.6 L ABG Hemoglobin Oxyhemoglobin 91.5 L Sodium Potassium Chloride Carbon Dioxide BUN Creatinine Glucose POC Glucose 179 H Hemoglobin A1c Lactic Acid Calcium Magnesium Ferritin AST ALT Alkaline Phosphatase Lactate Dehydrogenase C-Reactive Protein Total Protein Albumin Vancomycin Trough Random Vancomycin 02/01/20 02/01/20 02/01/20 03:49 04:30 08:13 WBC RBC Hgb Hct MCV MCH RDW Lymph % (Auto) Lymph # Seg Neutrophils % Seg Neuts % (Manual) Lymphocytes % (Manual) Nucleated RBC % Seg Neutrophils # Seg Neutrophils # Man Lymphocytes # (Manual) PT INR D-Dimer ABG pH 7.290 L ABG pO2 120.0 H ABG HCO3 14.2 L ABG O2 Saturation ABG Base Excess -11.2 L ABG Hemoglobin 9.3 L Oxyhemoglobin Sodium 135 L Potassium Chloride Carbon Dioxide 13 L BUN 79 H Creatinine 4.1 H Glucose 198 H POC Glucose 153 H Hemoglobin A1c Lactic Acid Calcium 7.0 L Magnesium Ferritin AST ALT Alkaline Phosphatase Lactate Dehydrogenase C-Reactive Protein Total Protein Albumin Vancomycin Trough Random Vancomycin 02/01/20 02/02/20 02/02/20 11:29 00:05 04:17 WBC RBC Hgb Hct MCV MCH RDW Lymph % (Auto) Lymph # Seg Neutrophils % Seg Neuts % (Manual) Lymphocytes % (Manual) Nucleated RBC % Seg Neutrophils # Seg Neutrophils # Man Lymphocytes # (Manual) PT INR D-Dimer ABG pH ABG pO2 ABG HCO3 ABG O2 Saturation ABG Base Excess -3.0 L ABG Hemoglobin 8.5 L Oxyhemoglobin Sodium Potassium Chloride Carbon Dioxide BUN Creatinine Glucose POC Glucose 181 H 214 H Hemoglobin A1c Lactic Acid Calcium Magnesium Ferritin AST ALT Alkaline Phosphatase Lactate Dehydrogenase C-Reactive Protein Total Protein Albumin Vancomycin Trough Random Vancomycin 02/02/20 02/02/20 02/02/20 04:30 04:30 04:30 WBC RBC Hgb Hct MCV MCH RDW Lymph % (Auto) Lymph # Seg Neutrophils % Seg Neuts % (Manual) Lymphocytes % (Manual) Nucleated RBC % Seg Neutrophils # Seg Neutrophils # Man Lymphocytes # (Manual) PT INR D-Dimer 795.93 H ABG pH ABG pO2 ABG HCO3 ABG O2 Saturation ABG Base Excess ABG Hemoglobin Oxyhemoglobin Sodium Potassium Chloride Carbon Dioxide 17 L BUN 61 H Creatinine 4.1 H Glucose 244 H POC Glucose Hemoglobin A1c Lactic Acid Calcium 7.2 L Magnesium Ferritin 1978.0 H AST ALT Alkaline Phosphatase Lactate Dehydrogenase 841 H C-Reactive Protein 11.50 H Total Protein Albumin Vancomycin Trough Random Vancomycin 02/02/20 02/02/20 02/02/20 04:30 05:34 12:26 WBC 17.3 H RBC 3.24 L Hgb 8.4 L Hct 24.9 L MCV 77 L MCH 26 L RDW Lymph % (Auto) Lymph # Seg Neutrophils % Seg Neuts % (Manual) Lymphocytes % (Manual) Nucleated RBC % Seg Neutrophils # Seg Neutrophils # Man Lymphocytes # (Manual) PT INR D-Dimer ABG pH ABG pO2 ABG HCO3 ABG O2 Saturation ABG Base Excess ABG Hemoglobin Oxyhemoglobin Sodium Potassium Chloride Carbon Dioxide BUN Creatinine Glucose POC Glucose 274 H 254 H Hemoglobin A1c Lactic Acid Calcium Magnesium Ferritin AST ALT Alkaline Phosphatase Lactate Dehydrogenase C-Reactive Protein Total Protein Albumin Vancomycin Trough Random Vancomycin Allied health notes reviewed: nursing
[2020-02-02] MEDS ORDERED: SODIUM CHLORIDE*PRIMING MACHINE ONLY FOR DIALYSIS MC ONE (17:04)
--- NOTE | 2020-02-02 20:05 | Progress Note ---
Assessment and Plan - Patient Problems (1) Acute kidney injury (CIPRIANO) with acute tubular necrosis (ATN) Current Visit: Yes Status: Acute Plan to address problem: patient dialysis dependent. Next planned hemodialysis will be on Tuesday. We will continue to reevaluate on a daily basis (2) Acute respiratory failure with hypoxia Current Visit: Yes Status: Acute Plan to address problem: ventilator management by pulmonary (3) Type 2 diabetes mellitus with hyperglycemia Current Visit: Yes Status: Acute Plan to address problem: sugar control by primary attending (4) Pneumonia due to COVID-19 virus Current Visit: Yes Status: Acute Plan to address problem: continue antibiotics Subjective Date of service: 02/02/20 Principal diagnosis: Severe Sepsis; LEV PNA; DM II; COVID-19 infection; CIPRIANO Interval history: patient seen lying in bed. Intubated on ventilator. Receiving dialysis with 2.5 L ultrafiltration Objective - Exam Narrative Exam: in no acute distress HEENT: Normocephalic atraumatic, pupils equal round reactive to light Normal oropharynx, Neck: Supple, no venous distention, no goiter CVS: S1S2 RRR Adkins Adkins, rub or gallop Lungs: Clear to auscultation, no use of accessory muscles of respiration Abdomen: Full, soft, nontender, no organomegaly no bruit, bowel sounds are present Extremities: No edema, no cyanosis or clubbing Urinary: Deferred Musculo-skeletal: No joint deformities or swelling Neuro: Awake, alert, no focal deficits - Vital Signs Vital signs: Vital Signs - 12hr 02/02/20 02/02/20 02/02/20 08:15 08:24 08:31 Temperature Pulse Rate 87 89 87 Pulse Rate [ From Monitor] Respiratory 12 20 Rate Blood Pressure 158/80 183/87 183/87 O2 Sat by Pulse 98 99 98 Oximetry O2 Sat by Pulse Oximetry [ Anterior Bilateral Throughout] 02/02/20 02/02/20 02/02/20 08:45 09:01 09:15 Temperature Pulse Rate 84 82 80 Pulse Rate [ From Monitor] Respiratory 30 H 30 H 30 H Rate Blood Pressure 142/67 144/73 150/72 O2 Sat by Pulse 98 98 99 Oximetry O2 Sat by Pulse Oximetry [ Anterior Bilateral Throughout] 02/02/20 02/02/20 02/02/20 09:31 09:45 09:59 Temperature Pulse Rate 81 80 77 Pulse Rate [ From Monitor] Respiratory 30 H 30 H Rate Blood Pressure 146/71 147/72 O2 Sat by Pulse 99 99 Oximetry O2 Sat by Pulse Oximetry [ Anterior Bilateral Throughout] 02/02/20 02/02/20 02/02/20 10:01 10:15 10:20 Temperature 99.8 F H Pulse Rate 78 78 76 Pulse Rate [ From Monitor] Respiratory 30 H 30 H 18 Rate Blood Pressure 147/75 150/74 150/74 O2 Sat by Pulse 99 99 Oximetry O2 Sat by Pulse 100 Oximetry [ Anterior Bilateral Throughout] 02/02/20 02/02/20 02/02/20 10:30 10:31 10:45 Temperature Pulse Rate 76 76 77 Pulse Rate [ From Monitor] Respiratory 30 H 30 H Rate Blood Pressure 147/75 150/74 138/78 O2 Sat by Pulse 100 100 Oximetry O2 Sat by Pulse Oximetry [ Anterior Bilateral Throughout] 02/02/20 02/02/20 02/02/20 11:00 11:01 11:15 Temperature Pulse Rate 81 81 80 Pulse Rate [ From Monitor] Respiratory 30 H 30 H Rate Blood Pressure 142/71 142/71 119/58 O2 Sat by Pulse 99 100 Oximetry O2 Sat by Pulse Oximetry [ Anterior Bilateral Throughout] 02/02/20 02/02/20 02/02/20 11:30 11:31 11:45 Temperature Pulse Rate 81 80 81 Pulse Rate [ From Monitor] Respiratory 30 H 30 H Rate Blood Pressure 121/69 121/68 121/68 O2 Sat by Pulse 100 100 Oximetry O2 Sat by Pulse Oximetry [ Anterior Bilateral Throughout] 02/02/20 02/02/20 02/02/20 12:00 12:01 12:15 Temperature 99.1 F Pulse Rate 81 82 81 Pulse Rate [ 80 From Monitor] Respiratory 30 H 30 H 30 H Rate Blood Pressure 122/68 119/66 119/66 O2 Sat by Pulse 100 100 100 Oximetry O2 Sat by Pulse Oximetry [ Anterior Bilateral Throughout] 02/02/20 02/02/20 02/02/20 12:26 12:30 12:31 Temperature Pulse Rate 81 84 83 Pulse Rate [ From Monitor] Respiratory 30 H Rate Blood Pressure 124/66 119/66 O2 Sat by Pulse 100 Oximetry O2 Sat by Pulse Oximetry [ Anterior Bilateral Throughout] 02/02/20 02/02/20 02/02/20 12:45 13:00 13:15 Temperature Pulse Rate 81 82 82 Pulse Rate [ From Monitor] Respiratory 18 15 30 H Rate Blood Pressure 120/65 115/73 99/54 O2 Sat by Pulse 100 99 100 Oximetry O2 Sat by Pulse Oximetry [ Anterior Bilateral Throughout] 02/02/20 02/02/20 02/02/20 13:20 13:30 13:45 Temperature 99.7 F H Pulse Rate 83 82 79 Pulse Rate [ From Monitor] Respiratory 18 30 H Rate Blood Pressure 98/54 122/63 111/59 O2 Sat by Pulse 100 100 Oximetry O2 Sat by Pulse 100 Oximetry [ Anterior Bilateral Throughout] 02/02/20 02/02/20 02/02/20 14:00 14:15 14:30 Temperature Pulse Rate 87 78 79 Pulse Rate [ From Monitor] Respiratory 30 H 30 H 30 H Rate Blood Pressure 122/67 125/68 124/64 O2 Sat by Pulse 100 100 100 Oximetry O2 Sat by Pulse Oximetry [ Anterior Bilateral Throughout] 02/02/20 02/02/20 02/02/20 14:32 14:45 15:00 Temperature Pulse Rate 81 88 81 Pulse Rate [ From Monitor] Respiratory 30 H 30 H Rate Blood Pressure 124/64 140/63 121/60 O2 Sat by Pulse 99 98 98 Oximetry O2 Sat by Pulse Oximetry [ Anterior Bilateral Throughout] 02/02/20 02/02/20 02/02/20 15:15 15:30 15:45 Temperature Pulse Rate 78 76 76 Pulse Rate [ From Monitor] Respiratory 30 H 30 H 30 H Rate Blood Pressure 128/63 130/63 121/63 O2 Sat by Pulse 98 98 98 Oximetry O2 Sat by Pulse Oximetry [ Anterior Bilateral Throughout] 02/02/20 02/02/20 02/02/20 16:00 16:15 16:31 Temperature 99.6 F Pulse Rate 78 77 100 H Pulse Rate [ 77 From Monitor] Respiratory 30 H 30 H 28 H Rate Blood Pressure 130/65 132/66 175/71 O2 Sat by Pulse 98 99 99 Oximetry O2 Sat by Pulse Oximetry [ Anterior Bilateral Throughout] 02/02/20 02/02/20 02/02/20 16:45 17:00 17:15 Temperature Pulse Rate 88 83 80 Pulse Rate [ From Monitor] Respiratory 30 H 30 H 30 H Rate Blood Pressure 123/63 126/66 122/66 O2 Sat by Pulse 95 96 96 Oximetry O2 Sat by Pulse Oximetry [ Anterior Bilateral Throughout] 02/02/20 02/02/20 02/02/20 17:30 17:45 17:53 Temperature Pulse Rate 78 81 79 Pulse Rate [ From Monitor] Respiratory 30 H 30 H Rate Blood Pressure 126/67 128/67 129/68 O2 Sat by Pulse 96 98 98 Oximetry O2 Sat by Pulse Oximetry [ Anterior Bilateral Throughout] 02/02/20 02/02/20 02/02/20 18:00 18:15 18:30 Temperature Pulse Rate 81 79 77 Pulse Rate [ From Monitor] Respiratory 30 H 30 H 30 H Rate Blood Pressure 121/70 117/63 120/63 O2 Sat by Pulse 98 98 98 Oximetry O2 Sat by Pulse Oximetry [ Anterior Bilateral Throughout] 02/02/20 02/02/20 02/02/20 18:45 19:00 19:15 Temperature Pulse Rate 78 78 79 Pulse Rate [ From Monitor] Respiratory 30 H 30 H 30 H Rate Blood Pressure 122/63 121/64 124/63 O2 Sat by Pulse 98 98 98 Oximetry O2 Sat by Pulse Oximetry [ Anterior Bilateral Throughout] 02/02/20 02/02/20 02/02/20 19:30 19:40 19:45 Temperature Pulse Rate 79 77 81 Pulse Rate [ From Monitor] Respiratory 30 H 30 H Rate Blood Pressure 123/63 118/63 O2 Sat by Pulse 98 98 Oximetry O2 Sat by Pulse Oximetry [ Anterior Bilateral Throughout] - Lab 02/02/20 04:30 02/02/20 04:30 Most recent lab results ABG pH 7.447 pH Units (7.350-7.450) 02/02/20 04:17 ABG pCO2 30.3 mm Hg 02/02/20 04:17 ABG pO2 86.3 mm Hg (80.0-90.0) 02/02/20 04:17 ABG HCO3 20.5 mmol/L (20.0-26.0) 02/02/20 04:17 ABG O2 Saturation 97.2 % (95.0-99.0) 02/02/20 04:17 Calcium 7.2 mg/dL (8.4-10.2) L 02/02/20 04:30 Magnesium 1.50 mg/dL (1.7-2.3) L 01/17/20 22:58 Medications & Allergies - Medications Allergies/Adverse Reactions: Allergies No Known Allergies Allergy (Verified 09/12/18 00:37) Home Medications: Home Medications Medication Instructions Recorded Confirmed Last Taken Type glipiZIDE-Metformin 5-500 mg 500 mg PO BID 01/17/20 01/17/20 Unknown History Active Medications: Generic Name Dose Route Start Last Admin Trade Name Freq PRN Reason Stop Dose Admin Acetaminophen 650 mg 01/17/20 23:06 01/29/20 22:43 Tylenol PO 650 mg Q4H PRN Administration Pain MILD(1-3)/Fever >100.5/COLLINS Lipase/Protease/Amylase 1 each 02/01/20 09:[address] 10,500 Unit FEEDTUBE PRN PRN For Clogged Feeding Tube Dextrose 0 ml 01/17/20 23:06 D50w (25gm) Syringe IV Q30MIN PRN Hypoglycemia Protocol Famotidine 20 mg 01/24/20 10:00 02/02/20 09:23 Pepcid PO 20 mg QDAY COBY Administration Fentanyl 50 mcg 01/31/20 21:48 Sublimaze IV Q10MIN PRN ANALGESIA Heparin Sodium (Porcine) 5,000 unit 01/18/20 06:00 02/02/20 13:01 Heparin SUB-Q 5,000 unit Q8HR COBY Administration Hydralazine HCl 10 mg 01/18/20 22:14 01/22/20 18:43 Apresoline IV 10 mg Q6H PRN Administration Hypertension Hydrophilic Ointment 1 applic 01/31/20 21:48 Vaseline Lip Therapy TP Q2HR PRN Dry Lips Fentanyl Citrate 2,000 mcg in 100 mls @ 7.395 mls/hr 01/31/20 22:00 02/02/20 16:31 Fentanyl Drip Premix IV 2 mcg/kg/hr TITR COBY 14.79 mls/hr Administration Protocol 1 MCG/KG/HR Norepinephrine 4 mg in 250 mls @ 7.5 mls/hr 01/31/20 23:45 02/02/20 16:32 Levophed Drip 4 Mg/Ns 250 Ml IV 2 mcg/min TITR COBY 7.5 mls/hr Titration Protocol 2 MCG/MIN Sodium Chloride 100 mls @ 999 mls/hr 02/01/20 10:26 Nacl 0.9% IV KIRSTEN PRN Hypotension Piperacillin Sod/Tazobactam Sod 2.25 gm in 50 mls @ 100 mls/hr 02/01/20 14:00 02/02/20 13:01 Zosyn/Ns 2.25 Gm/50ml IV 100 mls/hr Q8HR COBY Administration Protocol Insulin Human Isoph/Insulin Regular 15 unit 02/02/20 17:00 02/02/20 17:57 Humulin 70/30 SUB-Q 15 unit BIDDIAB COBY Administration Insulin Human Regular 0 units 02/01/20 12:00 02/02/20 17:57 Humulin R SUB-Q 4 units Q6HR COBY Administration Protocol Magnesium Hydroxide 30 ml 01/17/20 23:06 Milk Of Magnesia PO Q4H PRN Constipation Morphine Sulfate 2 mg 01/17/20 23:06 01/30/20 20:39 Morphine IV 2 mg Q4H PRN Administration Pain, Moderate (4-6) Multi-Ingred Cream/Lotion/Oil/Oint 1 applic 01/31/20 21:48 Artificial Tears Ophth Oint OU Q4HR PRN Dry Eye(s) Nystatin 1 applic 01/29/20 14:00 02/02/20 09:23 Nystop TP 1 applic BID COBY Administration Ondansetron HCl 4 mg 01/17/20 23:06 01/30/20 20:47 Zofran IV 4 mg Q8H PRN Administration Nausea And Vomiting Simple Syrup 15 ml 02/01/20 09:53 Simple Syrup FEEDTUBE PRN PRN Hypoglycemia Simple Syrup 30 ml 02/01/20 09:53 Simple Syrup FEEDTUBE PRN PRN Hypoglycemia Sodium Bicarbonate 325 mg 02/01/20 09:53 Sodium Bicarbonate FEEDTUBE PRN PRN For Clogged Feeding Tube Sodium Chloride 10 ml 01/18/20 10:00 02/02/20 09:23 Sodium Chloride Flush Syringe 10 Ml IV 10 ml BID COBY Administration Sodium Chloride 10 ml 01/17/20 23:06 Sodium Chloride Flush Syringe 10 Ml IV PRN PRN LINE FLUSH
[2020-02-03 05:05] LABS: ABG Base Excess 0.5 mmol/L (-2.0-3.0); ABG HCO3 22.9 mmol/L (20.0-26.0); ABG Methemoglobin 0.5 % (0.0-1.5); ABG Oxygen Saturation 96.9 % (95.0-99.0); ABG PCO2 28.7 mm Hg; ABG PH 7.52 pH Units (7.350-7.450); ABG PO2 73.8 mm Hg (80.0-90.0)
[2020-02-03] MEDS: HEPARIN 5,000 UNIT/1 ML VIAL SUB-Q SCH ×3 (05:09→21:16)
[2020-02-03] MEDS: PIPERACIL-TAZO 2.25 GM/50 ML 2.25 GM/50 ML BAG IV SCH ×3 (05:17→21:23)
[2020-02-03] MEDS: INSULIN REGULAR, HUMAN 100 UNITS/1 ML SUB-Q SCH ×4 (05:21→23:43)
--- NOTE | 2020-02-03 07:05 | XRay Report ---
CHEST 1 VIEW INDICATION / CLINICAL INFORMATION: follow up respiratory failure. COMPARISON: 02/02/2020 FINDINGS: SUPPORT DEVICES: Stable, satisfactory device positioning. HEART / MEDIASTINUM: Stable. LUNGS / PLEURA: Atelectasis in the right lower lung has completely resolved. There is mild residual opacity in the left upper lobe. No pneumothorax. ADDITIONAL FINDINGS: No significant additional findings. IMPRESSION: 1. Mild residual disease in the left upper lobe. Signer Name: Colin Quevedo MD Signed: 02/03/2020 7:00 AM Workstation Name: [id number]
[2020-02-03] MEDS: NYSTATIN POWDER 15 GM TP SCH ×2 (09:20→21:24)
[2020-02-03] MEDS: FAMOTIDINE 20 MG TAB PO SCH (09:20)
[2020-02-03] MEDS: INSULIN NPH/REGULAR 70/30 INJ SUB-Q SCH ×2 (09:20→17:50)
--- NOTE | 2020-02-03 09:54 | Progress Note ---
Assessment and Plan Cultures: Blood culture 01/17/2020 no growth to date Urine culture 01/17/2020 no growth to date Sputum normal resp dulce OR culture no growth today A/P: 29-year-old female past medical history diabetes admitted with acute sepsis secondary to right foot wound versus pneumonia. #Acute sepsis: fever resolved, now leukoctosis improving. Secondary to her left tight abscess versus pneumonia. #Severe COVID-19 pneumonia: Coronavirus testing has returned positive. Very high inflammatory markers - ferritin [id number]. Ferritin improving. Risk for cytokine storm secondary to COVID and high risk for ARDS #Acute respiratory failure: intubated now on CPAP #Left thigh abscess: surgery on board #Right foot wound: Will need MRI when more stable to rule out osteomyelitis of the toe. Continue empiric vancomycin and cefepime for now. #Diabetes: tight glycemic control for best outcomes. #CIPRIANO: renally adjust abx, worsening #Morbid obesity Recs: f/u OR culture Stop vancomycin Continue zosyn renally adjusted Day 3 of 7 Continuos pulse oximetry ContinueCOVID isolationprecautions per [facility] protocol Stop hydroxychloroquine 200 mg PO BID for 4 days (total 5 days) with zinc 220 mg PO qday Day 5 of 5 Obtain serial Ferritin, LDH, D-Dimer, CRP every 48h Daily EKG - QT monitoring - stop plaqenil if QT interval >500 May need prolonged O2 supplementation - home O2 Thank you for the consult, we will continue to follow. Janett Duffy MD Infectious Diseases Instructional Services Specialist [facility] ([facility]) M [phone] O [phone] Subjective Date of service: 02/03/20 Principal diagnosis: Severe Sepsis; LEV PNA; DM II; COVID-19 infection; CIPRIANO Interval history: Remains intubated no fever for 48h Objective - Exam Narrative Exam: Constitutional: sedated intuabted Oral: limited due to lack opf PPE Cardiovascular: Respiratory: GI: Soft, obese Musculoskeletal: Right hallux wound, left foot callus. Left thigh large induration, skin sloughing Skin: Hem/Lymphatic: Psych: Mood ok. Affect normal Neurological: Awake, alert, oriented. No gross abnormality - Constitutional Vitals: Vital Signs Temp Pulse Resp BP Pulse Ox 99.5 F 93 H 22 135/66 100 02/03/20 08:00 02/03/20 09:00 02/03/20 09:00 02/03/20 09:00 02/03/20 09:00 Temperature -Last 24 Hours Temperature 99.5 F Temperature 99.6 F Temperature 99.6 F Temperature 99.6 F Temperature 99.6 F Temperature 99.6 F Temperature 99.7 F Temperature 99.1 F Temperature 99.8 F - Labs CBC & Chem 7: 02/02/20 04:30 02/02/20 04:30 Labs: Abnormal lab results 01/28/20 02/02/20 02/02/20 Range/Units 10:00 12:26 18:06 ABG pH (7.350-7.450) pH Units ABG pO2 (80.0-90.0) mm Hg ABG Hemoglobin (12.0-16.0) gm/dl POC Glucose 254 H 285 H (70-105) Miscellaneous Test Flexitest 1 H 02/02/20 02/03/20 02/03/20 Range/Units 23:37 04:40 04:56 ABG pH 7.520 H (7.350-7.450) pH Units ABG pO2 73.8 L (80.0-90.0) mm Hg ABG Hemoglobin 8.6 L (12.0-16.0) gm/dl POC Glucose 239 H 227 H (70-105) Miscellaneous Test
[2020-02-03 11:01] LABS: ABG Base Excess -0.8 mmol/L (-2.0-3.0); ABG HCO3 23.4 mmol/L (20.0-26.0); ABG Methemoglobin 0.4 % (0.0-1.5); ABG Oxygen Saturation 97.4 % (95.0-99.0); ABG PCO2 36.4 mm Hg; ABG PH 7.425 pH Units (7.350-7.450); ABG PO2 92.5 mm Hg (80.0-90.0)
[2020-02-03] MEDS: fentaNYL DRIP Premix 2,000 MCG/100 ML BAG IV SCH (13:24)
--- NOTE | 2020-02-03 13:31 | Progress Note ---
Assessment and Plan Assessment and plan: 29-year-old female with known history of diabetes mellitus presenting to the emergency room today complaining of pain on the right big toe. Patient had an injury to the right big toe about 2 to 3 weeks ago when an object fell on the toe. She has gone to an urgent care facility where she was given some antibiotics namely Bactrim to the right big toe wound. She has noticed that the wound has not improved and she has been having progressive pain. She denies any fever or chills, no nausea vomiting, no cough or shortness of breath, no chest pain. She denies any sick contacts and no recent travel. Work-up in the emergency room reveals hyperglycemia chest x-ray also reveals a left-sided pneumonia with accompanying sepsis. Patient started on empiric IV antibiotics. She is also given a tetanus vacc ination. Per the ED doctor the wound itself did not appear overtly superinfected. Although however the patient was tachycardic and febrile and as part of sepsis work-up as her labs indicated hyperglycemia with pseudohyponatremia, minimal anion gap acidosis, and a left-sided pulmonary infiltrate. Given the magnitude of her abnormal vital signs, concomitant diabetes, metabolic derangement, daily maciel meets criteria for hospitalization. We will treat her empirically for community-acquired pneumonia. She does not endorse any sick contacts or exposures to individuals with coronavirus. Nevertheless her test was sent and patient returned COVID positive. January 24 the patient results for COVID 19 came back positive. 01/28: In addition to treatment as noted below patient was noted to have indura cruz area in the left thigh, Concerning for abscess development. Will obtain CT of the lower extremity 01/29: Patient noted hypotensive. She is refusing her p.o. week to be placed she sustained a fall overnight while trying to walk to the bathroom. CT of the lower extremity still pending we will proceed with consult to surgeons. We will discontinue all blood pressure medications give a bolus of fluid while mindful of possible developing ARDS. We will also obtain repeated chest x-ray as patient appears more toxic today. 01/31: Patient reintubated about 30 minutes after surgical procedure due to decompensation with hypotension and hypoxemia despite 100% oxygen and CPAP. Patient remains currently on the vent. We will continue dialysis. While rib stiffener and heel dipper assist with managing ventilator. We will continue to adjust blood sugar for better control. Patient is critically ill this has been conveyed to the family prior. 02/01: Mild improvement in inflammatory markers and chest x-ray. Otherwise patient still remains on mechanical ventilation still at high risk for ARDS mitigation processes are in place and plan. Continue aggressive management. She unfortunately still with low-grade intermittent fevers. Despite improvement in WBC. 02/02: Clinically stable wound VAC remains in place and functioning. Trial of CPAP today. Will recheck labs in a.m. inflammatory markers continue to improve ferritin is down to the 1900 range. COVID 19 induced pneumonia Acute on chronic respiratory failure with postoperative decompensation now requiring mechanical ventilation Acute metabolic encephalopathy Left thigh abscess status post I&D Multiple Organ Failure Severe Sepsis Diabetic foot wound nonhealing Morbid obesity hypoventilation syndrome Acute kidney injury secondary to vasomotor nephropathy Metabolic Acidosis Hypokalemia-resolved Presumed thigh abscess. Anemia Hyponatremia-resolving Diabetes mellitus with uncontrolled blood sugar Morbid obesity Hypertension monitor closely for septic shock Malnutrition: Decreased p.o. intake Severe Protein calorie Plan -Continue current work-up as dictated by infectious disease doctors will include Plaquenil and zinc combination. -Per surgery POD#2 s/p extensive I&D of left thigh abscess with sepsis and showing signs of multisystem organ insufficiency requiring ventilator support, possible dialysis, and vasopressers. wound vac was placed with wound care nurse. Next vac change scheduled for Tuesday. Continue abx and supportive care. -right-sided common femoral catheter placed for dialysis. -Very high inflammatory markers - ferritin [id number]. Ferritin elevated, CRP/LDH improving. Risk for cytokine storm secondary to COVID and high risk for ARDS -Patient may need to be on BiPAP if respiratory status is not improving and she continues to get weaker. -Continue vancomycin . -Follow culture from surgical procedure -Continue isolation and droplet precautions. Continuous pulse oximetry and telemetry. -Tight diabetic control -To the wound care -MRI of the right foot outpatient deferred due to COVID 19 treatment and nonemergent at this time -Replace electrolytes as needed -Obtain serial Ferritin, LDH, D-Dimer, CRP every 48h -Daily EKG - QT monitoring - stop plaqenil if QT interval >500 -Obtain IL-6 (sent out) to evaluate cytokine release syndrome due to COVID -Weight loss recommendations on discharge Family updated The high probability of a clinically significant, sudden or life threatening deterioration of the [pulmonary, renal, ] system(s) required my full and direct attention, intervention and personal management. The aggregate critical care time was [35] minutes. This time is in addition to time spent performing reported procedures but includes the following: [x] Data Review and interpretation [x] Patient assessment and monitoring of vital signs [x] Documentation [x] Medication orders and management History Interval history: Patient seen and examined remains intubated, today been tried on CPAP cultures remain with no growth Hospitalist Physical - Physical exam Narrative exam: VITAL SIGNS: Reviewed. GENERAL: The patient appears normally developed, on mechanical ventilator Vital signs as documented. HEAD: No signs of head trauma. EYES: unable to examin MOUTH: ETT in place CHEST: unable to examin, observed from window rise of chest wall CARDIAC: unable to examin, telemetry denotes, SR MUSCULOSKELETAL: dressing around site of I/D and wound VAC is in place Extremities without clubbing, cyanosis +edema. NEUROLOGIC EXAM: SEDATED Exam is limited due to PPE deficiency. - Constitutional Vitals: Temp Pulse Resp BP Pulse Ox 98.9 F 91 H 26 H 142/71 100 02/03/20 12:00 02/03/20 13:00 02/03/20 13:00 02/03/20 13:00 02/03/20 13:00 General appearance: Present: no acute distress Results - Labs CBC & Chem 7: 02/02/20 04:30 02/02/20 04:30 Labs: Laboratory Last Values WBC 17.3 K/mm3 (4.5-11.0) H 02/02/20 04:30 RBC 3.24 M/mm3 (3.65-5.03) L 02/02/20 04:30 Hgb 8.4 gm/dl (10.1-14.3) L 02/02/20 04:30 Hct 24.9 % (30.3-42.9) L 02/02/20 04:30 MCV 77 fl (79-97) L 02/02/20 04:30 MCH 26 pg (28-32) L 02/02/20 04:30 MCHC 34 % (30-34) 02/02/20 04:30 RDW 14.0 % (13.2-15.2) 02/02/20 04:30 Plt Count 270 K/mm3 (140-440) 02/02/20 04:30 Lymph % (Auto) 16.6 % (13.4-35.0) 01/18/20 08:30 [place] % (Auto) 2.8 % (0.0-7.3) 01/18/20 08:30 Eos % (Auto) 0.1 % (0.0-4.3) 01/18/20 08:30 Baso % (Auto) 0.4 % (0.0-1.8) 01/18/20 08:30 Lymph # 1.2 K/mm3 (1.2-5.4) 01/18/20 08:30 [place] # 0.2 K/mm3 (0.0-0.8) 01/18/20 08:30 Eos # 0.0 K/mm3 (0.0-0.4) 01/18/20 08:30 Baso # 0.0 K/mm3 (0.0-0.1) 01/18/20 08:30 Add Manual Diff Complete 01/26/20 05:40 Total Counted 100 01/26/20 05:40 Seg Neutrophils % Scale Attendant 01/26/20 05:40 Seg Neuts % (Manual) 90.0 % (40.0-70.0) H 01/26/20 05:40 Band Neutrophils % 5.0 % 01/26/20 05:40 Lymphocytes % (Manual) 1.0 % (13.4-35.0) L 01/26/20 05:40 Reactive Lymphs % (Man) 0 % 01/26/20 05:40 Monocytes % (Manual) 2.0 % (0.0-7.3) 01/26/20 05:40 Eosinophils % (Manual) 2.0 % (0.0-4.3) 01/26/20 05:40 Basophils % (Manual) 0 % (0.0-1.8) 01/26/20 05:40 Metamyelocytes % 0 % 01/26/20 05:40 Myelocytes % 0 % 01/26/20 05:40 Promyelocytes % 0 % 01/26/20 05:40 Blast Cells % 0 % 01/26/20 05:40 Nucleated RBC % 1.0 % (0.0-0.9) H 01/26/20 05:40 Seg Neutrophils # 5.9 K/mm3 (1.8-7.7) 01/18/20 08:30 Seg Neutrophils # Man 14.8 K/mm3 (1.8-7.7) H 01/26/20 05:40 Band Neutrophils # 0.8 K/mm3 01/26/20 05:40 Lymphocytes # (Manual) 0.2 K/mm3 (1.2-5.4) L 01/26/20 05:40 Abs React Lymphs (Man) 0.0 K/mm3 01/26/20 05:40 Monocytes # (Manual) 0.3 K/mm3 (0.0-0.8) 01/26/20 05:40 Eosinophils # (Manual) 0.3 K/mm3 (0.0-0.4) 01/26/20 05:40 Basophils # (Manual) 0.0 K/mm3 (0.0-0.1) 01/26/20 05:40 Metamyelocytes # 0.0 K/mm3 01/26/20 05:40 Myelocytes # 0.0 K/mm3 01/26/20 05:40 Promyelocytes # 0.0 K/mm3 01/26/20 05:40 Blast Cells # 0.0 K/mm3 01/26/20 05:40 WBC Morphology Not Reportable 01/26/20 05:40 Hypersegmented Neuts Not Reportable 01/26/20 05:40 Hyposegmented Neuts Not Reportable 01/26/20 05:40 Hypogranular Neuts Not Reportable 01/26/20 05:40 Smudge Cells Not Reportable 01/26/20 05:40 Toxic Granulation Not Reportable 01/26/20 05:40 Toxic Vacuolation Not Reportable 01/26/20 05:40 Dohle Bodies Not Reportable 01/26/20 05:40 Pelger-Huet Anomaly Not Reportable 01/26/20 05:40 Barbie Rods Not Reportable 01/26/20 05:40 Platelet Estimate Consistent w auto 01/26/20 05:40 Clumped Platelets Not Reportable 01/26/20 05:40 Plt Clumps, EDTA Not Reportable 01/26/20 05:40 Large Platelets Not Reportable 01/26/20 05:40 Giant Platelets Not Reportable 01/26/20 05:40 Platelet Satelliting Not Reportable 01/26/20 05:40 Plt Morphology Comment Not Reportable 01/26/20 05:40 RBC Morphology Normal 01/26/20 05:40 Dimorphic RBCs Not Reportable 01/26/20 05:40 Polychromasia Not Reportable 01/26/20 05:40 Hypochromasia Not Reportable 01/26/20 05:40 Poikilocytosis Not Reportable 01/26/20 05:40 Anisocytosis Not Reportable 01/26/20 05:40 Microcytosis Not Reportable 01/26/20 05:40 Macrocytosis Not Reportable 01/26/20 05:40 Spherocytes Not Reportable 01/26/20 05:40 Pappenheimer Bodies Not Reportable 01/26/20 05:40 Sickle Cells Not Reportable 01/26/20 05:40 Target Cells Not Reportable 01/26/20 05:40 Tear Drop Cells Not Reportable 01/26/20 05:40 Ovalocytes Not Reportable 01/26/20 05:40 Helmet Cells Not Reportable 01/26/20 05:40 [place] Bodies Not Reportable 01/26/20 05:40 [place] Rings Not Reportable 01/26/20 05:40 [place] Cells Not Reportable 01/26/20 05:40 Bite Cells Not Reportable 01/26/20 05:40 Crenated Cell Not Reportable 01/26/20 05:40 Elliptocytes Not Reportable 01/26/20 05:40 Acanthocytes (Spur) Not Reportable 01/26/20 05:40 Rouleaux Not Reportable 01/26/20 05:40 Hemoglobin C Crystals Not Reportable 01/26/20 05:40 Schistocytes Not Reportable 01/26/20 05:40 Malaria parasites Not Reportable 01/26/20 05:40 ESR 70 mm/Hr (0-20) 01/17/20 22:58 Ras Bodies Not Reportable 01/26/20 05:40 Hem Pathologist Commnt No 01/26/20 05:40 PT 15.6 Sec. (12.2-14.9) H 01/17/20 18:28 INR 1.22 (0.87-1.13) H 01/17/20 18:28 D-Dimer 795.93 ng/mlDDU (0-234) H 02/02/20 04:30 ABG pH 7.425 pH Units (7.350-7.450) 02/03/20 10:41 ABG pCO2 36.4 mm Hg 02/03/20 10:41 ABG pO2 92.5 mm Hg (80.0-90.0) H 02/03/20 10:41 ABG HCO3 23.4 mmol/L (20.0-26.0) 02/03/20 10:41 ABG O2 Saturation 97.4 % (95.0-99.0) 02/03/20 10:41 ABG O2 Content 10.8 (0.0-44) 02/03/20 10:41 ABG Base Excess -0.8 mmol/L (-2.0-3.0) 02/03/20 10:41 ABG Hemoglobin 7.9 gm/dl (12.0-16.0) L 02/03/20 10:41 ABG Carboxyhemoglobin 1.6 % (0.0-5.0) 02/03/20 10:41 ABG Methemoglobin 0.4 % (0.0-1.5) 02/03/20 10:41 VBG pH 7.409 (7.320-7.420) 01/17/20 18:28 Oxyhemoglobin 95.4 % (95.0-99.0) 02/03/20 10:41 FiO2 40 % 02/03/20 10:41 Sodium 141 mmol/L (137-145) 02/02/20 04:30 Potassium 3.8 mmol/L (3.6-5.0) 02/02/20 04:30 Chloride 105.7 mmol/L (98-107) 02/02/20 04:30 Carbon Dioxide 17 mmol/L (22-30) L 02/02/20 04:30 Anion Gap 22 mmol/L 02/02/20 04:30 BUN 61 mg/dL (7-17) H 02/02/20 04:30 Creatinine 4.1 mg/dL (0.7-1.2) H 02/02/20 04:30 Estimated GFR 15 ml/min 02/02/20 04:30 BUN/Creatinine Ratio 15 % 02/02/20 04:30 Glucose 244 mg/dL (65-100) H 02/02/20 04:30 POC Glucose 268 (70-105) H 02/03/20 12:09 Hemoglobin A1c 11.6 % (4-6) H 01/18/20 12:47 Lactic Acid 1.30 mmol/L (0.7-2.0) 01/18/20 08:30 Calcium 7.2 mg/dL (8.4-10.2) L 02/02/20 04:30 Magnesium 1.50 mg/dL (1.7-2.3) L 01/17/20 22:58 Ferritin 1978.0 ng/mL (13.0-400.0) H 02/02/20 04:30 Total Bilirubin 0.50 mg/dL (0.1-1.2) 01/31/20 03:49 AST 112 units/L (5-40) H 01/31/20 03:49 ALT 112 units/L (7-56) H 01/31/20 03:49 Alkaline Phosphatase 145 units/L (35-129) H 01/31/20 03:49 Lactate Dehydrogenase 841 units/L (91-180) H 02/02/20 04:30 Total Creatine Kinase 122 units/L (30-135) 01/17/20 22:58 C-Reactive Protein 11.50 mg/dL (0.00-1.30) H 02/02/20 04:30 Total Protein 5.5 g/dL (6.3-8.2) L 01/31/20 03:49 Albumin 1.7 g/dL (3.9-5) L 01/31/20 03:49 Albumin/Globulin Ratio 0.4 % 01/31/20 03:49 Procalcitonin 0.27 ng/mL (<0.15) 01/23/20 10:36 HCG, Qual Negative (Negative) 01/31/20 03:49 Urine Color Yellow (Yellow) 01/18/20 00:32 Urine Turbidity Slightly-cloudy (Clear) 01/18/20 00:32 Urine pH 5.0 (5.0-7.0) 01/18/20 00:32 Ur Specific [place] 1.011 (1.003-1.030) 01/18/20 00:32 Urine Protein 100 mg/dl mg/dL (Negative) 01/18/20 00:32 Urine Glucose (UA) >=500 mg/dL (Negative) 01/18/20 00:32 Urine Ketones Tr mg/dL (Negative) 01/18/20 00:32 Urine Blood Neg (Negative) 01/18/20 00:32 Urine Nitrite Neg (Negative) 01/18/20 00:32 Urine Bilirubin Neg (Negative) 01/18/20 00:32 Urine Urobilinogen < 2.0 mg/dL (<2.0) 01/18/20 00:32 Ur Leukocyte Esterase Neg (Negative) 01/18/20 00:32 Urine WBC (Auto) 2.0 /HPF (0.0-6.0) 01/18/20 00:32 Urine RBC (Auto) 4.0 /HPF (0.0-6.0) 01/18/20 00:32 U Epithel Cells (Auto) 2.0 /HPF (0-13.0) 01/18/20 00:32 Hyaline Casts 1 /LPF 01/18/20 00:32 Urine Mucus Few /HPF 01/18/20 00:32 Urine Yeast (Budding) Few /HPF 01/18/20 00:32 Vancomycin Trough 45.4 ug/mL (5.0-20.0) H 01/30/20 05:19 Random Vancomycin 30.6 ug/mL (0-40.0) 02/01/20 03:49 Hepatitis A IgM Ab Non-reactive (NonReactive) 02/01/20 10:57 Hep Bs Antigen Non-reactive (Negative) 02/01/20 10:57 Hep B Core IgM Ab Non-reactive (NonReactive) 02/01/20 10:57 Hepatitis C Antibody Non-reactive (NonReactive) 02/01/20 10:57 Influenza A (Rapid) Negative (Negative) 01/19/20 01:10 Influenza B (Rapid) Negative (Negative) 01/19/20 01:10 AFB Identification 01/20/20 04:00 Miscellaneous Test Flexitest 1 H 01/28/20 10:00 Microbiology: Microbiology 01/31/20 Unknown Thigh - Left Surgical Biopsy Culture - Preliminary Goldstein/IV: Voiding Method Condom Catheter IV Catheter Type [right ac] Peripheral IV IV Catheter Type [Right vascath Femoral] IV Catheter Type [Right Peripheral IV Forearm] IV Catheter Type [Right Wrist] INT / Saline Lock IV Catheter Type [Right Hand] INT / Saline Lock IV Catheter Type [Right Upper INT / Saline Lock arm] IV Catheter Type [Left Hand] INT / Saline Lock Active Medications - Current Medications Current Medications: Generic Name Dose Route Start Last Admin Trade Name Freq PRN Reason Stop Dose Admin Acetaminophen 650 mg 01/17/20 23:06 01/29/20 22:43 Tylenol PO 650 mg Q4H PRN Administration Pain MILD(1-3)/Fever >100.5/COLLINS Lipase/Protease/Amylase 1 each 02/01/20 09:[address] 10,500 Unit FEEDTUBE PRN PRN For Clogged Feeding Tube Dextrose 0 ml 01/17/20 23:06 D50w (25gm) Syringe IV Q30MIN PRN Hypoglycemia Protocol Famotidine 20 mg 01/24/20 10:00 02/03/20 09:20 Pepcid PO 20 mg QDAY COBY Administration Fentanyl 50 mcg 01/31/20 21:48 Sublimaze IV Q10MIN PRN ANALGESIA Heparin Sodium (Porcine) 5,000 unit 01/18/20 06:00 02/03/20 13:14 Heparin SUB-Q 5,000 unit Q8HR COBY Administration Hydralazine HCl 10 mg 01/18/20 22:14 01/22/20 18:43 Apresoline IV 10 mg Q6H PRN Administration Hypertension Hydrophilic Ointment 1 applic 01/31/20 21:48 Vaseline Lip Therapy TP Q2HR PRN Dry Lips Fentanyl Citrate 2,000 mcg in 100 mls @ 7.395 mls/hr 01/31/20 22:00 02/03/20 13:24 Fentanyl Drip Premix IV 0.14 mcg/kg/hr TITR COBY 1 mls/hr Administration Protocol 1 MCG/KG/HR Norepinephrine 4 mg in 250 mls @ 7.5 mls/hr 01/31/20 23:45 02/02/20 20:15 Levophed Drip 4 Mg/Ns 250 Ml IV 0 mcg/min TITR COBY 0 mls/hr Titration Protocol 2 MCG/MIN Sodium Chloride 100 mls @ 999 mls/hr 02/01/20 10:26 Nacl 0.9% IV KIRSTEN PRN Hypotension Piperacillin Sod/Tazobactam Sod 2.25 gm in 50 mls @ 100 mls/hr 02/01/20 14:00 02/03/20 13:14 Zosyn/Ns 2.25 Gm/50ml IV 02/07/20 23:59 100 mls/hr Q8HR COBY Administration Protocol Insulin Human Isoph/Insulin Regular 15 unit 02/02/20 17:00 02/03/20 09:20 Humulin 70/30 SUB-Q 15 unit BIDDIAB COBY Administration Insulin Human Regular 0 units 02/01/20 12:00 02/03/20 12:00 Humulin R SUB-Q 4 units Q6HR COBY Administration Protocol Magnesium Hydroxide 30 ml 01/17/20 23:06 Milk Of Magnesia PO Q4H PRN Constipation Morphine Sulfate 2 mg 01/17/20 23:06 01/30/20 20:39 Morphine IV 2 mg Q4H PRN Administration Pain, Moderate (4-6) Multi-Ingred Cream/Lotion/Oil/Oint 1 applic 01/31/20 21:48 Artificial Tears Ophth Oint OU Q4HR PRN Dry Eye(s) Nystatin 1 applic 01/29/20 14:00 02/03/20 09:20 Nystop TP 1 applic BID COBY Administration Ondansetron HCl 4 mg 01/17/20 23:06 01/30/20 20:47 Zofran IV 4 mg Q8H PRN Administration Nausea And Vomiting Simple Syrup 15 ml 02/01/20 09:53 Simple Syrup FEEDTUBE PRN PRN Hypoglycemia Simple Syrup 30 ml 02/01/20 09:53 Simple Syrup FEEDTUBE PRN PRN Hypoglycemia Sodium Bicarbonate 325 mg 02/01/20 09:53 Sodium Bicarbonate FEEDTUBE PRN PRN For Clogged Feeding Tube Sodium Chloride 10 ml 01/18/20 10:00 02/03/20 09:20 Sodium Chloride Flush Syringe 10 Ml IV 10 ml BID COBY Administration Sodium Chloride 10 ml 01/17/20 23:06 02/03/20 05:18 Sodium Chloride Flush Syringe 10 Ml IV 10 ml PRN PRN Administration LINE FLUSH Nutrition/Malnutrition Assess - Dietary Evaluation Nutrition/Malnutrition Findings: Nutrition Notes Start: 01/18/20 13:13 Freq: Status: Active Protocol: Document 02/01/20 08:31 LM (Rec: 02/01/20 08:41 LM [id number]) Nutrition Notes Need for Assessment generated from: MD Order Initial or Follow up Reassessment Current Diagnosis Diabetes,Sepsis Other Pertinent Diagnosis COVID-19 positive, LEV pnue, ( R) great toe wound Current Diet NPO Labs/Tests Na 135 BG 198 Pertinent Medications Levophed Height 6 ft Weight 147.9 kg [place] Body Weight (kg) 72.72 BMI 44.1 Weight Status Morbidly Obese Subjective/Other Information MD consult to evaluate nutritional intake and TF. Pt extubated on 01/31/20. Already following pt. Burn Absent Trauma Absent Current % PO Negligible Minimum of two criteria No physical signs of malnutrition #3 Nutrition Diagnosis Inadequate oral intake Etiology Mechanical vent As Evidenced by Signs and Symptoms Pt unable to consume PO #2 Nutrition Diagnosis Inadequate protein-energy intake Diagnosis Progress(for reassessment Continues documentation) #1 Nutrition Diagnosis Increased nutrient needs ( specify in comment below) Diagnosis Progress(for reassessment Continues documentation) Is patient on ventilator? Yes Is Patient Ambulatory and/or Out of Bed Yes [facility] [ 3004.300 [id number]] Kcal/Kg value to use for calculation 14 Approximate Energy Requirements Using 2071 kcal/Kg Calculation Used for Recommendations Kcal/kg Additional Notes Protein: 183g (up to 2.5g/kg using IBW 73kg Fluid needs 1ml/kcal Nutrition Intervention Change Diet Order: TF Nutrition Support: Vital HP 1.0 at 75ml/hr Flush 50 ml q6h for hyponatremia Flush 50 ml q4h once resolved Kcal 1,800 Protein (gm) 158 Fluid (mL) 1,505 Goal #1 TF start/tolerance Anticipated Discharge Needs: unable to determine at this time Follow-Up By: 02/04/20 Additional Comments F/U for TF start/tolerance
--- NOTE | 2020-02-03 14:40 | XRay Report ---
ABDOMEN 2 VIEW(S) INDICATION / CLINICAL INFORMATION: NGT placement. COMPARISON: 2 days prior FINDINGS: TUBES / LINES: NG tube curled in the proximal stomach. BOWEL GAS PATTERN: Mild gaseous distention of bowel loops in the visualized upper abdomen. FREE AIR / EXTRALUMINAL GAS: None seen. ADDITIONAL FINDINGS: No significant additional findings. IMPRESSION: 1. NG tube as above. Signer Name: Raleigh Layne MD Signed: 02/03/2020 2:36 PM Workstation Name: [id number] [employer]
--- NOTE | 2020-02-03 15:07 | Progress Note ---
Assessment and Plan - Patient Problems (1) Acute kidney injury (CIPRIANO) with acute tubular necrosis (ATN) Current Visit: Yes Status: Acute Plan to address problem: Patient dialysis dependent. kidney indices stable. Next planned hemodialysis will be tomorrow. We will continue to reevaluate on a daily basis (2) Acute respiratory failure with hypoxia Current Visit: Yes Status: Acute Plan to address problem: ventilator management by pulmonary. Wean ongoing (3) Type 2 diabetes mellitus with hyperglycemia Current Visit: Yes Status: Acute Plan to address problem: sugar control by primary attending (4) Pneumonia due to COVID-19 virus Current Visit: Yes Status: Acute Plan to address problem: continue antibiotics Subjective Date of service: 02/03/20 Principal diagnosis: Severe Sepsis; LEV PNA; DM II; COVID-19 infection; CIPRIANO Interval history: patient seen lying in bed. Intubated on ventilator. Awake, following my movements. On CPAP Objective - Exam Narrative Exam: obese young -[place] female lying in bed in no acute distress HEENT: Normocephalic atraumatic, pupils equal round reactive to light ETT intact Neck: Supple, no venous distention, no goiter CVS: S1S2 RRR Adkins Adkins, rub or gallop Lungs: Clear to auscultation, Abdomen: Obese soft, nontender, no organomegaly no bruit, bowel sounds are present Extremities: Mild edema, no cyanosis or clubbing Urinary: Deferred Musculo-skeletal: No joint deformities or swelling Neuro: Awake, following my movements - Vital Signs Vital signs: Vital Signs - 12hr 02/03/20 02/03/20 02/03/20 03:15 03:30 03:45 Temperature 99.6 F Pulse Rate 110 H 97 H 88 Pulse Rate [ 79 From Monitor] Respiratory 28 H 17 30 H Rate Blood Pressure 116/64 123/65 114/54 O2 Sat by Pulse 100 100 98 Oximetry 02/03/20 02/03/20 02/03/20 04:00 04:15 04:30 Temperature Pulse Rate 87 85 83 Pulse Rate [ From Monitor] Respiratory 30 H 30 H 30 H Rate Blood Pressure 109/57 111/54 116/62 O2 Sat by Pulse 98 98 98 Oximetry 02/03/20 02/03/20 02/03/20 04:45 05:00 05:15 Temperature Pulse Rate 81 83 83 Pulse Rate [ From Monitor] Respiratory 30 H 30 H 30 H Rate Blood Pressure 118/62 125/65 122/62 O2 Sat by Pulse 99 98 98 Oximetry 02/03/20 02/03/20 02/03/20 05:30 05:31 05:35 Temperature 99.6 F Pulse Rate 82 74 Pulse Rate [ 79 From Monitor] Respiratory 30 H Rate Blood Pressure 123/64 123/64 O2 Sat by Pulse 98 97 Oximetry 02/03/20 02/03/20 02/03/20 05:45 06:00 06:15 Temperature Pulse Rate 81 78 85 Pulse Rate [ From Monitor] Respiratory 30 H 30 H 30 H Rate Blood Pressure 122/63 125/64 150/75 O2 Sat by Pulse 97 98 99 Oximetry 02/03/20 02/03/20 02/03/20 06:30 06:45 07:00 Temperature Pulse Rate 81 81 80 Pulse Rate [ From Monitor] Respiratory 31 H 25 H 29 H Rate Blood Pressure 125/65 126/66 130/68 O2 Sat by Pulse 99 99 99 Oximetry 02/03/20 02/03/20 02/03/20 07:15 07:30 07:45 Temperature Pulse Rate 68 79 84 Pulse Rate [ From Monitor] Respiratory 30 H 30 H 30 H Rate Blood Pressure 126/66 129/66 127/68 O2 Sat by Pulse 99 99 99 Oximetry 02/03/20 02/03/20 02/03/20 08:00 08:04 08:07 Temperature 99.5 F Pulse Rate 80 92 H 95 H Pulse Rate [ 90 From Monitor] Respiratory 13 19 Rate Blood Pressure 145/80 145/80 145/80 O2 Sat by Pulse 100 100 100 Oximetry 02/03/20 02/03/20 02/03/20 08:15 08:30 08:45 Temperature Pulse Rate 92 H 93 H 92 H Pulse Rate [ From Monitor] Respiratory 22 23 22 Rate Blood Pressure 151/74 135/65 137/66 O2 Sat by Pulse 100 100 100 Oximetry 02/03/20 02/03/20 02/03/20 09:00 09:15 09:30 Temperature Pulse Rate 93 H 87 99 H Pulse Rate [ From Monitor] Respiratory 22 23 23 Rate Blood Pressure 135/66 132/66 O2 Sat by Pulse 100 100 100 Oximetry 02/03/20 02/03/20 02/03/20 09:46 10:00 10:16 Temperature Pulse Rate 87 88 85 Pulse Rate [ From Monitor] Respiratory 23 24 23 Rate Blood Pressure 133/64 139/67 133/67 O2 Sat by Pulse 98 98 98 Oximetry 02/03/20 02/03/20 02/03/20 10:30 10:42 10:46 Temperature Pulse Rate 88 88 87 Pulse Rate [ From Monitor] Respiratory 25 H 23 26 H Rate Blood Pressure 135/66 142/70 142/70 O2 Sat by Pulse 99 98 99 Oximetry 02/03/20 02/03/20 02/03/20 11:00 11:16 11:30 Temperature Pulse Rate 91 H 85 92 H Pulse Rate [ From Monitor] Respiratory 25 H 21 17 Rate Blood Pressure 134/67 139/70 141/69 O2 Sat by Pulse 99 99 99 Oximetry 02/03/20 02/03/20 02/03/20 11:46 12:00 12:16 Temperature 98.9 F Pulse Rate 83 86 84 Pulse Rate [ 86 From Monitor] Respiratory 21 23 24 Rate Blood Pressure 135/70 142/69 134/67 O2 Sat by Pulse 100 99 100 Oximetry 02/03/20 02/03/20 02/03/20 12:30 12:46 13:00 Temperature Pulse Rate 84 85 91 H Pulse Rate [ From Monitor] Respiratory 22 21 26 H Rate Blood Pressure 135/69 141/73 142/71 O2 Sat by Pulse 99 100 100 Oximetry 02/03/20 02/03/20 02/03/20 13:16 13:30 13:32 Temperature Pulse Rate 134 H 120 H 121 H Pulse Rate [ From Monitor] Respiratory 20 36 H Rate Blood Pressure 175/83 141/72 141/72 O2 Sat by Pulse 98 96 95 Oximetry 02/03/20 02/03/20 02/03/20 13:46 14:00 14:16 Temperature Pulse Rate 112 H 95 H 92 H Pulse Rate [ From Monitor] Respiratory 30 H 30 H 30 H Rate Blood Pressure 154/73 118/61 127/65 O2 Sat by Pulse 96 95 96 Oximetry - Lab 02/02/20 04:30 02/02/20 04:30 Most recent lab results ABG pH 7.425 pH Units (7.350-7.450) 02/03/20 10:41 ABG pCO2 36.4 mm Hg 02/03/20 10:41 ABG pO2 92.5 mm Hg (80.0-90.0) H 02/03/20 10:41 ABG HCO3 23.4 mmol/L (20.0-26.0) 02/03/20 10:41 ABG O2 Saturation 97.4 % (95.0-99.0) 02/03/20 10:41 Calcium 7.2 mg/dL (8.4-10.2) L 02/02/20 04:30 Magnesium 1.50 mg/dL (1.7-2.3) L 01/17/20 22:58 Medications & Allergies - Medications Allergies/Adverse Reactions: Allergies No Known Allergies Allergy (Verified 09/12/18 00:37) Home Medications: Home Medications Medication Instructions Recorded Confirmed Last Taken Type glipiZIDE-Metformin 5-500 mg 500 mg PO BID 01/17/20 01/17/20 Unknown History Active Medications: Generic Name Dose Route Start Last Admin Trade Name Freq PRN Reason Stop Dose Admin Acetaminophen 650 mg 01/17/20 23:06 01/29/20 22:43 Tylenol PO 650 mg Q4H PRN Administration Pain MILD(1-3)/Fever >100.5/COLLINS Lipase/Protease/Amylase 1 each 02/01/20 09:[address] 10,500 Unit FEEDTUBE PRN PRN For Clogged Feeding Tube Dextrose 0 ml 01/17/20 23:06 D50w (25gm) Syringe IV Q30MIN PRN Hypoglycemia Protocol Famotidine 20 mg 01/24/20 10:00 02/03/20 09:20 Pepcid PO 20 mg QDAY COBY Administration Fentanyl 50 mcg 01/31/20 21:48 Sublimaze IV Q10MIN PRN ANALGESIA Heparin Sodium (Porcine) 5,000 unit 01/18/20 06:00 02/03/20 13:14 Heparin SUB-Q 5,000 unit Q8HR COBY Administration Hydralazine HCl 10 mg 01/18/20 22:14 01/22/20 18:43 Apresoline IV 10 mg Q6H PRN Administration Hypertension Hydrophilic Ointment 1 applic 01/31/20 21:48 Vaseline Lip Therapy TP Q2HR PRN Dry Lips Fentanyl Citrate 2,000 mcg in 100 mls @ 7.395 mls/hr 01/31/20 22:00 02/03/20 13:24 Fentanyl Drip Premix IV 0.14 mcg/kg/hr TITR COBY 1 mls/hr Administration Protocol 1 MCG/KG/HR Norepinephrine 4 mg in 250 mls @ 7.5 mls/hr 01/31/20 23:45 02/02/20 20:15 Levophed Drip 4 Mg/Ns 250 Ml IV 0 mcg/min TITR COBY 0 mls/hr Titration Protocol 2 MCG/MIN Sodium Chloride 100 mls @ 999 mls/hr 02/01/20 10:26 Nacl 0.9% IV KIRSTEN PRN Hypotension Piperacillin Sod/Tazobactam Sod 2.25 gm in 50 mls @ 100 mls/hr 02/01/20 14:00 02/03/20 13:14 Zosyn/Ns 2.25 Gm/50ml IV 02/07/20 23:59 100 mls/hr Q8HR [facility] Administration Protocol Insulin Human Isoph/Insulin Regular 15 unit 02/02/20 17:00 02/03/20 09:20 Humulin 70/30 SUB-Q 15 unit BIDDIAB [facility] Administration Insulin Human Regular 0 units 02/01/20 12:00 02/03/20 12:00 Humulin R SUB-Q 4 units Q6HR [facility] Administration Protocol Magnesium Hydroxide 30 ml 01/17/20 23:06 Milk Of Magnesia PO Q4H PRN Constipation Morphine Sulfate 2 mg 01/17/20 23:06 01/30/20 20:39 Morphine IV 2 mg Q4H PRN Administration Pain, Moderate (4-6) Multi-Ingred Cream/Lotion/Oil/Oint 1 applic 01/31/20 21:48 Artificial Tears Ophth Oint OU Q4HR PRN Dry Eye(s) Nystatin 1 applic 01/29/20 14:00 02/03/20 09:20 Nystop TP 1 applic BID COBY Administration Ondansetron HCl 4 mg 01/17/20 23:06 01/30/20 20:47 Zofran IV 4 mg Q8H PRN Administration Nausea And Vomiting Simple Syrup 15 ml 02/01/20 09:53 Simple Syrup FEEDTUBE PRN PRN Hypoglycemia Simple Syrup 30 ml 02/01/20 09:53 Simple Syrup FEEDTUBE PRN PRN Hypoglycemia Sodium Bicarbonate 325 mg 02/01/20 09:53 Sodium Bicarbonate FEEDTUBE PRN PRN For Clogged Feeding Tube Sodium Chloride 10 ml 01/18/20 10:00 02/03/20 09:20 Sodium Chloride Flush Syringe 10 Ml IV 10 ml BID COBY Administration Sodium Chloride 10 ml 01/17/20 23:06 02/03/20 05:18 Sodium Chloride Flush Syringe 10 Ml IV 10 ml PRN PRN Administration LINE FLUSH
--- NOTE | 2020-02-03 16:16 | Progress Note ---
Assessment and Plan Acute Hypoxemic Respiratory failure Severe Sepsis COVID-19 infection Left upper lobe pneumonia Diabetes II Morbid obesity Febrile illness Diabetic foot ulcer Hyponatremia Lactic acidosis - VAP bundle addressed (continue aspiration precautions) - continue to wean supplemental oxygen to keep O2 sats > 90% - continue daily SAT's and SBT assessment - continue Bronchodilators (JURGEN) with pulm hygiene per RT - continue to wean per pulmonary driven protocols - COVID-19 precautions per [facility] protocol - continue contact, droplet and airborne precautions - continue QT monitoring while on plaqenil (Stop if QT interval > 500) - Follow IL-6 (sent out) to evaluate cytokine release syndrome due to COVID and consider IV tocilizumab (Actemra) (off-label use)- per ID recommendations - Very high inflammatory markers - ferritin 2758; CRP/LDH trending down (At risk for cytokine storm secondary to COVID and high risk for ARDS) - Conservative fluid management (use vasopressors including midodrine to support blood pressure). - ABG, CXR reviewed - sedation target for RASS 0 to -1 - Accuchecks with glycemic control, keep blood glucose 140-180 mg/dL while critically ill (Avoid hypoglycemia) - Avoid nephrotoxins, adjust and dose all medications fro GFR and CrCL - continue GI & VTE prophylaxis - continue wound care per RN / WCT - continue surgical evaluation - prn analgesia per CPOT score - mobility protocols to prevent pressure ulcers - continued smoking abstinence strongly counseled at the bedside prior to decompensation - GI & VTE prophylaxis - Flu & pneumovax per protocol - continue other care per attending / other consultants ... re-evaluate in am & prn CONDITION: CRITICAL PROGNOSIS: GUARDED CODE STATUS: FULL CODE The high probability of a clinically significant, sudden or life threatening deterioration of the [pulmonary, renal, neurology, endocrine ] system(s) required my full and direct attention, intervention and personal management. The aggregate critical care time was [32] minutes. This time is in addition to time spent performing reported procedures but includes the following: [x] Data Review and interpretation [x] Patient assessment and monitoring of vital signs [x] Documentation [x] Medication orders and management Subjective Date of service: 02/03/20 Principal diagnosis: Severe Sepsis; LEV PNA; DM II; COVID-19 infection; CIPRIANO Interval history: Patient is seen today for: Acute Hypoxemic Respiratory failure; Severe Sepsis; LEV pneumonia; Diabetes II; Morbid obesity; COVID-19 infection; Diabetic foot ulcer; Hyponatremia; Lactic acidosis Seen and examined at bedside; 24hour events reviewed; nursing and respiratory care staff consulted; no adverse overnight events reported to me; resting peacefully in bed; now on MVS; trolerated bedside SBT for a short time; sedasted; no N/V/F/C PUI?: No COVID19: Positive Objective Vital Signs - 12hr 02/03/20 02/03/20 02/03/20 04:30 04:45 05:00 Temperature Pulse Rate 83 81 83 Pulse Rate [ From Monitor] Respiratory 30 H 30 H 30 H Rate Blood Pressure 116/62 118/62 125/65 O2 Sat by Pulse 98 99 98 Oximetry 02/03/20 02/03/20 02/03/20 05:15 05:30 05:31 Temperature Pulse Rate 83 82 74 Pulse Rate [ 79 From Monitor] Respiratory 30 H 30 H Rate Blood Pressure 122/62 123/64 123/64 O2 Sat by Pulse 98 98 97 Oximetry 02/03/20 02/03/20 02/03/20 05:35 05:45 06:00 Temperature 99.6 F Pulse Rate 81 78 Pulse Rate [ From Monitor] Respiratory 30 H 30 H Rate Blood Pressure 122/63 125/64 O2 Sat by Pulse 97 98 Oximetry 02/03/20 02/03/20 02/03/20 06:15 06:30 06:45 Temperature Pulse Rate 85 81 81 Pulse Rate [ From Monitor] Respiratory 30 H 31 H 25 H Rate Blood Pressure 150/75 125/65 126/66 O2 Sat by Pulse 99 99 99 Oximetry 02/03/20 02/03/20 02/03/20 07:00 07:15 07:30 Temperature Pulse Rate 80 68 79 Pulse Rate [ From Monitor] Respiratory 29 H 30 H 30 H Rate Blood Pressure 130/68 126/66 129/66 O2 Sat by Pulse 99 99 99 Oximetry 02/03/20 02/03/20 02/03/20 07:45 08:00 08:04 Temperature 99.5 F Pulse Rate 84 80 92 H Pulse Rate [ 90 From Monitor] Respiratory 30 H 13 Rate Blood Pressure 127/68 145/80 145/80 O2 Sat by Pulse 99 100 100 Oximetry 02/03/20 02/03/20 02/03/20 08:07 08:15 08:30 Temperature Pulse Rate 95 H 92 H 93 H Pulse Rate [ From Monitor] Respiratory 19 22 23 Rate Blood Pressure 145/80 151/74 135/65 O2 Sat by Pulse 100 100 100 Oximetry 02/03/20 02/03/20 02/03/20 08:45 09:00 09:15 Temperature Pulse Rate 92 H 93 H 87 Pulse Rate [ From Monitor] Respiratory 22 22 23 Rate Blood Pressure 137/66 135/66 132/66 O2 Sat by Pulse 100 100 100 Oximetry 02/03/20 02/03/20 02/03/20 09:30 09:46 10:00 Temperature Pulse Rate 99 H 87 88 Pulse Rate [ From Monitor] Respiratory 23 23 24 Rate Blood Pressure 133/64 139/67 O2 Sat by Pulse 100 98 98 Oximetry 02/03/20 02/03/20 02/03/20 10:16 10:30 10:42 Temperature Pulse Rate 85 88 88 Pulse Rate [ From Monitor] Respiratory 23 25 H 23 Rate Blood Pressure 133/67 135/66 142/70 O2 Sat by Pulse 98 99 98 Oximetry 02/03/20 02/03/20 02/03/20 10:46 11:00 11:16 Temperature Pulse Rate 87 91 H 85 Pulse Rate [ From Monitor] Respiratory 26 H 25 H 21 Rate Blood Pressure 142/70 134/67 139/70 O2 Sat by Pulse 99 99 99 Oximetry 02/03/20 02/03/20 02/03/20 11:30 11:46 12:00 Temperature 98.9 F Pulse Rate 92 H 83 86 Pulse Rate [ 86 From Monitor] Respiratory 17 21 23 Rate Blood Pressure 141/69 135/70 142/69 O2 Sat by Pulse 99 100 99 Oximetry 02/03/20 02/03/20 02/03/20 12:16 12:30 12:46 Temperature Pulse Rate 84 84 85 Pulse Rate [ From Monitor] Respiratory 24 22 21 Rate Blood Pressure 134/67 135/69 141/73 O2 Sat by Pulse 100 99 100 Oximetry 02/03/20 02/03/20 02/03/20 13:00 13:16 13:30 Temperature Pulse Rate 91 H 134 H 120 H Pulse Rate [ From Monitor] Respiratory 26 H 20 36 H Rate Blood Pressure 142/71 175/83 141/72 O2 Sat by Pulse 100 98 96 Oximetry 02/03/20 02/03/2020 13:32 13:46 14:00 Temperature Pulse Rate 121 H 112 H 95 H Pulse Rate [ From Monitor] Respiratory 30 H 30 H Rate Blood Pressure 141/72 154/73 118/61 O2 Sat by Pulse 95 96 95 Oximetry 02/03/20 02/03/20 02/03/20 14:16 14:30 14:46 Temperature Pulse Rate 92 H 88 85 Pulse Rate [ From Monitor] Respiratory 30 H 30 H 30 H Rate Blood Pressure 127/65 114/58 115/60 O2 Sat by Pulse 96 96 97 Oximetry 02/03/20 02/03/20 02/03/20 15:00 15:16 15:30 Temperature Pulse Rate 83 84 82 Pulse Rate [ From Monitor] Respiratory 30 H 30 H 30 H Rate Blood Pressure 120/63 122/67 128/69 O2 Sat by Pulse 98 98 99 Oximetry 02/03/20 02/03/20 15:46 16:00 Temperature Pulse Rate 83 78 Pulse Rate [ 83 From Monitor] Respiratory 30 H 30 H Rate Blood Pressure 129/71 132/72 O2 Sat by Pulse 100 100 Oximetry Constitutional: alert, other (young obese AAF, normocephalic with mildly increased resp effort at rest) Eyes: non-icteric ENT: oropharynx moist, other (ETT 23 cm UZAIR) Neck: supple, no lymphadenopathy, no JVD Effort: mildly labored Ascultation: Bilateral: diminished breath sounds, rales (scant in bases) Percussion: Bilateral: not dull Cardiovascular: regular rate and rhythm Gastrointestinal: normoactive bowel sounds, soft, non-tender, non-distended Integumentary: normal Extremities: no cyanosis, no edema, pulses normal, no ischemia or petechiae Neurologic: normal mental status, non-focal exam, pupils equal and round, CN II- XII normal Psychiatric: mood appropriate, affect normal CBC and BMP: 02/07/20 05:05 02/07/20 05:05 ABG, PT/INR, D-dimer: ABG ABG pH 7.425 pH Units (7.350-7.450) 02/03/20 10:41 ABG pCO2 36.4 mm Hg 02/03/20 10:41 ABG pO2 92.5 mm Hg (80.0-90.0) H 02/03/20 10:41 ABG O2 Saturation 97.4 % (95.0-99.0) 02/03/20 10:41 PT/INR, D-dimer PT 15.6 Sec. (12.2-14.9) H 01/17/20 18:28 INR 1.22 (0.87-1.13) H 01/17/20 18:28 D-Dimer 795.93 ng/mlDDU (0-234) H 02/02/20 04:30 Abnormal lab findings: Abnormal Labs 01/17/20 01/17/20 01/17/20 18:28 18:28 18:28 WBC RBC Hgb Hct MCV MCH 26 L RDW Lymph % (Auto) 9.3 L Lymph # 1.0 L Seg Neutrophils % 86.7 H Seg Neuts % (Manual) Lymphocytes % (Manual) Nucleated RBC % Seg Neutrophils # 9.6 H Seg Neutrophils # Man Lymphocytes # (Manual) PT 15.6 H INR 1.22 H D-Dimer ABG pH ABG pO2 ABG HCO3 ABG O2 Saturation ABG Base Excess ABG Hemoglobin Oxyhemoglobin Sodium 126 L Potassium Chloride 89.3 L Carbon Dioxide 19 L BUN Creatinine Glucose 397 H POC Glucose Hemoglobin A1c Lactic Acid Calcium Magnesium Ferritin AST ALT Alkaline Phosphatase Lactate Dehydrogenase C-Reactive Protein Total Protein 9.0 H Albumin Vancomycin Trough Random Vancomycin Miscellaneous Test 01/17/20 01/17/20 01/17/20 18:28 22:58 22:58 WBC RBC Hgb Hct MCV MCH RDW Lymph % (Auto) Lymph # Seg Neutrophils % Seg Neuts % (Manual) Lymphocytes % (Manual) Nucleated RBC % Seg Neutrophils # Seg Neutrophils # Man Lymphocytes # (Manual) PT INR D-Dimer ABG pH ABG pO2 ABG HCO3 ABG O2 Saturation ABG Base Excess ABG Hemoglobin Oxyhemoglobin Sodium Potassium Chloride Carbon Dioxide BUN Creatinine Glucose POC Glucose Hemoglobin A1c Lactic Acid 3.40 H* 2.30 H* Calcium Magnesium 1.50 L Ferritin AST ALT Alkaline Phosphatase Lactate Dehydrogenase C-Reactive Protein 16.60 H Total Protein Albumin Vancomycin Trough Random Vancomycin Miscellaneous Test 01/18/20 01/18/20 01/18/20 00:46 06:34 08:30 WBC RBC Hgb Hct MCV MCH 26 L RDW 12.7 L Lymph % (Auto) Lymph # Seg Neutrophils % 80.1 H Seg Neuts % (Manual) Lymphocytes % (Manual) Nucleated RBC % Seg Neutrophils # Seg Neutrophils # Man Lymphocytes # (Manual) PT INR D-Dimer ABG pH ABG pO2 ABG HCO3 ABG O2 Saturation ABG Base Excess ABG Hemoglobin Oxyhemoglobin Sodium Potassium Chloride Carbon Dioxide BUN Creatinine Glucose POC Glucose 338 H 266 H Hemoglobin A1c Lactic Acid Calcium Magnesium Ferritin AST ALT Alkaline Phosphatase Lactate Dehydrogenase C-Reactive Protein Total Protein Albumin Vancomycin Trough Random Vancomycin Miscellaneous Test 01/18/20 01/18/20 01/18/20 08:30 08:35 12:30 WBC RBC Hgb Hct MCV MCH RDW Lymph % (Auto) Lymph # Seg Neutrophils % Seg Neuts % (Manual) Lymphocytes % (Manual) Nucleated RBC % Seg Neutrophils # Seg Neutrophils # Man Lymphocytes # (Manual) PT INR D-Dimer ABG pH ABG pO2 ABG HCO3 ABG O2 Saturation ABG Base Excess ABG Hemoglobin Oxyhemoglobin Sodium 135 L D Potassium Chloride Carbon Dioxide BUN Creatinine Glucose 250 H POC Glucose 224 H 213 H Hemoglobin A1c Lactic Acid Calcium Magnesium Ferritin AST ALT Alkaline Phosphatase Lactate Dehydrogenase C-Reactive Protein Total Protein Albumin Vancomycin Trough Random Vancomycin Miscellaneous Test 01/18/20 01/18/20 01/18/20 12:47 16:56 22:03 WBC RBC Hgb Hct MCV MCH RDW Lymph % (Auto) Lymph # Seg Neutrophils % Seg Neuts % (Manual) Lymphocytes % (Manual) Nucleated RBC % Seg Neutrophils # Seg Neutrophils # Man Lymphocytes # (Manual) PT INR D-Dimer ABG pH ABG pO2 ABG HCO3 ABG O2 Saturation ABG Base Excess ABG Hemoglobin Oxyhemoglobin Sodium Potassium Chloride Carbon Dioxide BUN Creatinine Glucose POC Glucose 270 H 239 H Hemoglobin A1c 11.6 H Lactic Acid Calcium Magnesium Ferritin AST ALT Alkaline Phosphatase Lactate Dehydrogenase C-Reactive Protein Total Protein Albumin Vancomycin Trough Random Vancomycin Miscellaneous Test 01/19/20 01/19/20 01/19/20 06:15 11:48 13:09 WBC RBC Hgb Hct MCV MCH 26 L RDW Lymph % (Auto) Lymph # Seg Neutrophils % Seg Neuts % (Manual) Lymphocytes % (Manual) Nucleated RBC % Seg Neutrophils # Seg Neutrophils # Man Lymphocytes # (Manual) PT INR D-Dimer ABG pH ABG pO2 ABG HCO3 ABG O2 Saturation ABG Base Excess ABG Hemoglobin Oxyhemoglobin Sodium Potassium Chloride Carbon Dioxide BUN Creatinine Glucose POC Glucose 248 H 268 H Hemoglobin A1c Lactic Acid Calcium Magnesium Ferritin AST ALT Alkaline Phosphatase Lactate Dehydrogenase C-Reactive Protein Total Protein Albumin Vancomycin Trough Random Vancomycin Miscellaneous Test 01/19/20 01/19/20 01/20/20 17:44 21:09 09:03 WBC RBC Hgb Hct MCV MCH RDW Lymph % (Auto) Lymph # Seg Neutrophils % Seg Neuts % (Manual) Lymphocytes % (Manual) Nucleated RBC % Seg Neutrophils # Seg Neutrophils # Man Lymphocytes # (Manual) PT INR D-Dimer ABG pH ABG pO2 ABG HCO3 ABG O2 Saturation ABG Base Excess ABG Hemoglobin Oxyhemoglobin Sodium Potassium Chloride Carbon Dioxide BUN Creatinine Glucose POC Glucose 214 H 261 H 241 H Hemoglobin A1c Lactic Acid Calcium Magnesium Ferritin AST ALT Alkaline Phosphatase Lactate Dehydrogenase C-Reactive Protein Total Protein Albumin Vancomycin Trough Random Vancomycin Miscellaneous Test 01/20/20 01/20/20 01/20/20 12:10 17:00 19:43 WBC RBC Hgb Hct MCV MCH RDW Lymph % (Auto) Lymph # Seg Neutrophils % Seg Neuts % (Manual) Lymphocytes % (Manual) Nucleated RBC % Seg Neutrophils # Seg Neutrophils # Man Lymphocytes # (Manual) PT INR D-Dimer ABG pH ABG pO2 ABG HCO3 ABG O2 Saturation ABG Base Excess ABG Hemoglobin Oxyhemoglobin Sodium Potassium Chloride Carbon Dioxide BUN Creatinine Glucose POC Glucose 284 H 272 H Hemoglobin A1c Lactic Acid Calcium Magnesium Ferritin AST ALT Alkaline Phosphatase Lactate Dehydrogenase C-Reactive Protein Total Protein Albumin Vancomycin Trough 4.0 L Random Vancomycin Miscellaneous Test 01/20/20 01/21/20 01/21/20 22:39 09:29 11:41 WBC RBC Hgb Hct MCV MCH 26 L RDW Lymph % (Auto) Lymph # Seg Neutrophils % Seg Neuts % (Manual) Lymphocytes % (Manual) Nucleated RBC % Seg Neutrophils # Seg Neutrophils # Man Lymphocytes # (Manual) PT INR D-Dimer ABG pH ABG pO2 ABG HCO3 ABG O2 Saturation ABG Base Excess ABG Hemoglobin Oxyhemoglobin Sodium Potassium Chloride Carbon Dioxide BUN Creatinine Glucose POC Glucose 248 H 238 H Hemoglobin A1c Lactic Acid Calcium Magnesium Ferritin AST ALT Alkaline Phosphatase Lactate Dehydrogenase C-Reactive Protein Total Protein Albumin Vancomycin Trough Random Vancomycin Miscellaneous Test 01/21/20 01/21/20 01/21/20 11:41 12:27 16:55 WBC RBC Hgb Hct MCV MCH RDW Lymph % (Auto) Lymph # Seg Neutrophils % Seg Neuts % (Manual) Lymphocytes % (Manual) Nucleated RBC % Seg Neutrophils # Seg Neutrophils # Man Lymphocytes # (Manual) PT INR D-Dimer ABG pH ABG pO2 ABG HCO3 ABG O2 Saturation ABG Base Excess ABG Hemoglobin Oxyhemoglobin Sodium 132 L Potassium 3.5 L Chloride 97.0 L Carbon Dioxide 19 L BUN Creatinine Glucose 274 H POC Glucose 264 H 261 H Hemoglobin A1c Lactic Acid Calcium Magnesium Ferritin AST ALT Alkaline Phosphatase Lactate Dehydrogenase C-Reactive Protein Total Protein Albumin Vancomycin Trough Random Vancomycin Miscellaneous Test 01/21/20 01/22/20 01/22/20 22:39 09:05 12:57 WBC RBC Hgb Hct MCV MCH RDW Lymph % (Auto) Lymph # Seg Neutrophils % Seg Neuts % (Manual) Lymphocytes % (Manual) Nucleated RBC % Seg Neutrophils # Seg Neutrophils # Man Lymphocytes # (Manual) PT INR D-Dimer ABG pH ABG pO2 ABG HCO3 ABG O2 Saturation ABG Base Excess ABG Hemoglobin Oxyhemoglobin Sodium Potassium Chloride Carbon Dioxide BUN Creatinine Glucose POC Glucose 243 H 258 H 252 H Hemoglobin A1c Lactic Acid Calcium Magnesium Ferritin AST ALT Alkaline Phosphatase Lactate Dehydrogenase C-Reactive Protein Total Protein Albumin Vancomycin Trough Random Vancomycin Miscellaneous Test 01/22/20 01/22/20 01/23/20 17:14 21:30 09:03 WBC RBC Hgb Hct MCV MCH RDW Lymph % (Auto) Lymph # Seg Neutrophils % Seg Neuts % (Manual) Lymphocytes % (Manual) Nucleated RBC % Seg Neutrophils # Seg Neutrophils # Man Lymphocytes # (Manual) PT INR D-Dimer ABG pH ABG pO2 ABG HCO3 ABG O2 Saturation ABG Base Excess ABG Hemoglobin Oxyhemoglobin Sodium Potassium Chloride Carbon Dioxide BUN Creatinine Glucose POC Glucose 306 H 217 H 156 H Hemoglobin A1c Lactic Acid Calcium Magnesium Ferritin AST ALT Alkaline Phosphatase Lactate Dehydrogenase C-Reactive Protein Total Protein Albumin Vancomycin Trough Random Vancomycin Miscellaneous Test 01/23/20 01/23/20 01/23/20 10:36 11:12 17:11 WBC RBC Hgb Hct MCV MCH RDW Lymph % (Auto) Lymph # Seg Neutrophils % Seg Neuts % (Manual) Lymphocytes % (Manual) Nucleated RBC % Seg Neutrophils # Seg Neutrophils # Man Lymphocytes # (Manual) PT INR D-Dimer ABG pH ABG pO2 ABG HCO3 ABG O2 Saturation ABG Base Excess ABG Hemoglobin Oxyhemoglobin Sodium Potassium 3.0 L Chloride Carbon Dioxide 21 L BUN Creatinine Glucose 266 H POC Glucose 244 H 238 H Hemoglobin A1c Lactic Acid Calcium 8.3 L Magnesium Ferritin AST ALT Alkaline Phosphatase Lactate Dehydrogenase C-Reactive Protein Total Protein Albumin Vancomycin Trough Random Vancomycin Miscellaneous Test 01/23/20 01/24/20 01/24/20 22:57 06:03 12:12 WBC RBC Hgb Hct MCV MCH RDW Lymph % (Auto) Lymph # Seg Neutrophils % Seg Neuts % (Manual) Lymphocytes % (Manual) Nucleated RBC % Seg Neutrophils # Seg Neutrophils # Man Lymphocytes # (Manual) PT INR D-Dimer ABG pH ABG pO2 ABG HCO3 ABG O2 Saturation ABG Base Excess ABG Hemoglobin Oxyhemoglobin Sodium Potassium 3.2 L Chloride Carbon Dioxide 19 L BUN Creatinine Glucose 231 H POC Glucose 228 H 210 H Hemoglobin A1c Lactic Acid Calcium 8.2 L Magnesium Ferritin AST ALT Alkaline Phosphatase Lactate Dehydrogenase C-Reactive Protein Total Protein Albumin Vancomycin Trough Random Vancomycin Miscellaneous Test 01/24/20 01/24/20 01/24/20 12:50 19:01 21:49 WBC RBC Hgb Hct MCV MCH RDW Lymph % (Auto) Lymph # Seg Neutrophils % Seg Neuts % (Manual) Lymphocytes % (Manual) Nucleated RBC % Seg Neutrophils # Seg Neutrophils # Man Lymphocytes # (Manual) PT INR D-Dimer ABG pH 7.485 H ABG pO2 63.4 L ABG HCO3 ABG O2 Saturation ABG Base Excess ABG Hemoglobin 5.0 L Oxyhemoglobin Sodium Potassium Chloride Carbon Dioxide BUN Creatinine Glucose POC Glucose 183 H 193 H Hemoglobin A1c Lactic Acid Calcium Magnesium Ferritin AST ALT Alkaline Phosphatase Lactate Dehydrogenase C-Reactive Protein Total Protein Albumin Vancomycin Trough Random Vancomycin Miscellaneous Test 01/25/20 01/25/20 01/25/20 09:13 16:58 22:23 WBC RBC Hgb Hct MCV MCH RDW Lymph % (Auto) Lymph # Seg Neutrophils % Seg Neuts % (Manual) Lymphocytes % (Manual) Nucleated RBC % Seg Neutrophils # Seg Neutrophils # Man Lymphocytes # (Manual) PT INR D-Dimer ABG pH ABG pO2 ABG HCO3 ABG O2 Saturation ABG Base Excess ABG Hemoglobin Oxyhemoglobin Sodium Potassium Chloride Carbon Dioxide BUN Creatinine Glucose POC Glucose 196 H 231 H 159 H Hemoglobin A1c Lactic Acid Calcium Magnesium Ferritin AST ALT Alkaline Phosphatase Lactate Dehydrogenase C-Reactive Protein Total Protein Albumin Vancomycin Trough Random Vancomycin Miscellaneous Test 01/26/20 01/26/20 01/26/20 05:40 05:40 05:40 WBC 16.4 H RBC Hgb Hct MCV MCH 26 L RDW 12.9 L Lymph % (Auto) Lymph # Seg Neutrophils % Seg Neuts % (Manual) 90.0 H Lymphocytes % (Manual) 1.0 L Nucleated RBC % 1.0 H Seg Neutrophils # Seg Neutrophils # Man 14.8 H Lymphocytes # (Manual) 0.2 L PT INR D-Dimer 2624.11 H ABG pH ABG pO2 ABG HCO3 ABG O2 Saturation ABG Base Excess ABG Hemoglobin Oxyhemoglobin Sodium 135 L Potassium 2.7 L* Chloride Carbon Dioxide 21 L BUN Creatinine Glucose 132 H POC Glucose Hemoglobin A1c Lactic Acid Calcium 8.0 L Magnesium Ferritin AST ALT Alkaline Phosphatase Lactate Dehydrogenase C-Reactive Protein Total Protein Albumin Vancomycin Trough Random Vancomycin Miscellaneous Test 01/26/20 01/26/20 01/26/20 05:40 05:40 08:58 WBC RBC Hgb Hct MCV MCH RDW Lymph % (Auto) Lymph # Seg Neutrophils % Seg Neuts % (Manual) Lymphocytes % (Manual) Nucleated RBC % Seg Neutrophils # Seg Neutrophils # Man Lymphocytes # (Manual) PT INR D-Dimer ABG pH ABG pO2 ABG HCO3 ABG O2 Saturation ABG Base Excess ABG Hemoglobin Oxyhemoglobin Sodium Potassium Chloride Carbon Dioxide BUN Creatinine Glucose POC Glucose 131 H Hemoglobin A1c Lactic Acid Calcium Magnesium Ferritin 2758.0 H AST ALT Alkaline Phosphatase Lactate Dehydrogenase C-Reactive Protein 26.90 H Total Protein Albumin Vancomycin Trough Random Vancomycin Miscellaneous Test 01/26/20 01/26/20 01/26/20 13:00 16:30 21:22 WBC RBC Hgb Hct MCV MCH RDW Lymph % (Auto) Lymph # Seg Neutrophils % Seg Neuts % (Manual) Lymphocytes % (Manual) Nucleated RBC % Seg Neutrophils # Seg Neutrophils # Man Lymphocytes # (Manual) PT INR D-Dimer ABG pH ABG pO2 ABG HCO3 ABG O2 Saturation ABG Base Excess ABG Hemoglobin Oxyhemoglobin Sodium Potassium Chloride Carbon Dioxide BUN Creatinine Glucose POC Glucose 136 H 146 H 139 H Hemoglobin A1c Lactic Acid Calcium Magnesium Ferritin AST ALT Alkaline Phosphatase Lactate Dehydrogenase C-Reactive Protein Total Protein Albumin Vancomycin Trough Random Vancomycin Miscellaneous Test 01/27/20 01/27/20 01/27/20 05:14 07:37 12:05 WBC RBC Hgb Hct MCV MCH RDW Lymph % (Auto) Lymph # Seg Neutrophils % Seg Neuts % (Manual) Lymphocytes % (Manual) Nucleated RBC % Seg Neutrophils # Seg Neutrophils # Man Lymphocytes # (Manual) PT INR D-Dimer ABG pH ABG pO2 ABG HCO3 ABG O2 Saturation ABG Base Excess ABG Hemoglobin Oxyhemoglobin Sodium 135 L Potassium 3.4 L D Chloride Carbon Dioxide 17 L BUN 24 H Creatinine 1.4 H D Glucose 143 H POC Glucose 133 H 141 H Hemoglobin A1c Lactic Acid Calcium 7.6 L Magnesium Ferritin AST ALT Alkaline Phosphatase Lactate Dehydrogenase C-Reactive Protein Total Protein Albumin Vancomycin Trough Random Vancomycin Miscellaneous Test 01/27/20 01/27/20 01/27/20 17:37 22:14 23:53 WBC RBC Hgb Hct MCV MCH RDW Lymph % (Auto) Lymph # Seg Neutrophils % Seg Neuts % (Manual) Lymphocytes % (Manual) Nucleated RBC % Seg Neutrophils # Seg Neutrophils # Man Lymphocytes # (Manual) PT INR D-Dimer 2675.43 H ABG pH ABG pO2 ABG HCO3 ABG O2 Saturation ABG Base Excess ABG Hemoglobin Oxyhemoglobin Sodium Potassium Chloride Carbon Dioxide BUN Creatinine Glucose POC Glucose 153 H 124 H Hemoglobin A1c Lactic Acid Calcium Magnesium Ferritin AST ALT Alkaline Phosphatase Lactate Dehydrogenase C-Reactive Protein Total Protein Albumin Vancomycin Trough Random Vancomycin Miscellaneous Test 01/27/20 01/27/20 01/28/20 23:53 23:53 08:36 WBC RBC Hgb Hct MCV MCH RDW Lymph % (Auto) Lymph # Seg Neutrophils % Seg Neuts % (Manual) Lymphocytes % (Manual) Nucleated RBC % Seg Neutrophils # Seg Neutrophils # Man Lymphocytes # (Manual) PT INR D-Dimer ABG pH ABG pO2 ABG HCO3 ABG O2 Saturation ABG Base Excess ABG Hemoglobin Oxyhemoglobin Sodium Potassium Chloride Carbon Dioxide BUN Creatinine Glucose POC Glucose 165 H Hemoglobin A1c Lactic Acid Calcium Magnesium Ferritin 3523.0 H AST ALT Alkaline Phosphatase Lactate Dehydrogenase 1132 H C-Reactive Protein 15.60 H Total Protein Albumin Vancomycin Trough Random Vancomycin Miscellaneous Test 01/28/20 01/28/20 01/28/20 10:00 10:00 10:00 WBC RBC Hgb Hct MCV MCH RDW Lymph % (Auto) Lymph # Seg Neutrophils % Seg Neuts % (Manual) Lymphocytes % (Manual) Nucleated RBC % Seg Neutrophils # Seg Neutrophils # Man Lymphocytes # (Manual) PT INR D-Dimer ABG pH ABG pO2 ABG HCO3 ABG O2 Saturation ABG Base Excess ABG Hemoglobin Oxyhemoglobin Sodium 131 L Potassium 3.5 L Chloride Carbon Dioxide 16 L BUN 51 H Creatinine 3.5 H D Glucose 180 H POC Glucose Hemoglobin A1c Lactic Acid Calcium 7.5 L Magnesium Ferritin AST ALT Alkaline Phosphatase Lactate Dehydrogenase C-Reactive Protein Total Protein Albumin Vancomycin Trough Random Vancomycin 65.8 H Miscellaneous Test Flexitest 1 H 01/28/20 01/28/20 01/28/20 12:42 17:27 22:06 WBC RBC Hgb Hct MCV MCH RDW Lymph % (Auto) Lymph # Seg Neutrophils % Seg Neuts % (Manual) Lymphocytes % (Manual) Nucleated RBC % Seg Neutrophils # Seg Neutrophils # Man Lymphocytes # (Manual) PT INR D-Dimer ABG pH ABG pO2 ABG HCO3 ABG O2 Saturation ABG Base Excess ABG Hemoglobin Oxyhemoglobin Sodium Potassium Chloride Carbon Dioxide BUN Creatinine Glucose POC Glucose 188 H 161 H 158 H Hemoglobin A1c Lactic Acid Calcium Magnesium Ferritin AST ALT Alkaline Phosphatase Lactate Dehydrogenase C-Reactive Protein Total Protein Albumin Vancomycin Trough Random Vancomycin Miscellaneous Test 01/29/20 01/29/20 01/29/20 07:29 07:29 08:20 WBC 17.0 H RBC Hgb 9.6 L Hct 29.5 L MCV MCH 26 L RDW Lymph % (Auto) Lymph # Seg Neutrophils % Seg Neuts % (Manual) Lymphocytes % (Manual) Nucleated RBC % Seg Neutrophils # Seg Neutrophils # Man Lymphocytes # (Manual) PT INR D-Dimer ABG pH ABG pO2 ABG HCO3 ABG O2 Saturation ABG Base Excess ABG Hemoglobin Oxyhemoglobin Sodium 133 L Potassium Chloride Carbon Dioxide 15 L BUN 69 H Creatinine 4.1 H Glucose 161 H POC Glucose 170 H Hemoglobin A1c Lactic Acid Calcium 7.6 L Magnesium Ferritin AST ALT Alkaline Phosphatase Lactate Dehydrogenase C-Reactive Protein Total Protein Albumin Vancomycin Trough Random Vancomycin Miscellaneous Test 01/29/20 01/29/20 01/29/20 11:54 11:54 11:54 WBC RBC Hgb Hct MCV MCH RDW Lymph % (Auto) Lymph # Seg Neutrophils % Seg Neuts % (Manual) Lymphocytes % (Manual) Nucleated RBC % Seg Neutrophils # Seg Neutrophils # Man Lymphocytes # (Manual) PT INR D-Dimer 1499 H ABG pH ABG pO2 ABG HCO3 ABG O2 Saturation ABG Base Excess ABG Hemoglobin Oxyhemoglobin Sodium Potassium Chloride Carbon Dioxide BUN Creatinine Glucose POC Glucose Hemoglobin A1c Lactic Acid Calcium Magnesium Ferritin > 2000.0 H AST ALT Alkaline Phosphatase Lactate Dehydrogenase 946 H C-Reactive Protein 13.30 H Total Protein Albumin Vancomycin Trough Random Vancomycin Miscellaneous Test 01/29/20 01/29/20 01/29/20 12:55 16:19 22:13 WBC RBC Hgb Hct MCV MCH RDW Lymph % (Auto) Lymph # Seg Neutrophils % Seg Neuts % (Manual) Lymphocytes % (Manual) Nucleated RBC % Seg Neutrophils # Seg Neutrophils # Man Lymphocytes # (Manual) PT INR D-Dimer ABG pH ABG pO2 ABG HCO3 ABG O2 Saturation ABG Base Excess ABG Hemoglobin Oxyhemoglobin Sodium Potassium Chloride Carbon Dioxide BUN Creatinine Glucose POC Glucose 142 H 146 H 142 H Hemoglobin A1c Lactic Acid Calcium Magnesium Ferritin AST ALT Alkaline Phosphatase Lactate Dehydrogenase C-Reactive Protein Total Protein Albumin Vancomycin Trough Random Vancomycin Miscellaneous Test 01/30/20 01/30/20 01/30/20 05:19 05:19 08:04 WBC RBC Hgb Hct MCV MCH RDW Lymph % (Auto) Lymph # Seg Neutrophils % Seg Neuts % (Manual) Lymphocytes % (Manual) Nucleated RBC % Seg Neutrophils # Seg Neutrophils # Man Lymphocytes # (Manual) PT INR D-Dimer ABG pH ABG pO2 ABG HCO3 ABG O2 Saturation ABG Base Excess ABG Hemoglobin Oxyhemoglobin Sodium 134 L Potassium Chloride Carbon Dioxide 14 L BUN 87 H Creatinine 4.4 H Glucose 172 H POC Glucose 153 H Hemoglobin A1c Lactic Acid Calcium 7.6 L Magnesium Ferritin AST 152 H ALT 124 H Alkaline Phosphatase Lactate Dehydrogenase C-Reactive Protein Total Protein 5.5 L Albumin 1.8 L Vancomycin Trough 45.4 H Random Vancomycin Miscellaneous Test 01/30/20 01/30/20 01/30/20 12:21 16:51 22:54 WBC RBC Hgb Hct MCV MCH RDW Lymph % (Auto) Lymph # Seg Neutrophils % Seg Neuts % (Manual) Lymphocytes % (Manual) Nucleated RBC % Seg Neutrophils # Seg Neutrophils # Man Lymphocytes # (Manual) PT INR D-Dimer ABG pH ABG pO2 ABG HCO3 ABG O2 Saturation ABG Base Excess ABG Hemoglobin Oxyhemoglobin Sodium Potassium Chloride Carbon Dioxide BUN Creatinine Glucose POC Glucose 147 H 119 H 129 H Hemoglobin A1c Lactic Acid Calcium Magnesium Ferritin AST ALT Alkaline Phosphatase Lactate Dehydrogenase C-Reactive Protein Total Protein Albumin Vancomycin Trough Random Vancomycin Miscellaneous Test 01/31/20 01/31/20 01/31/20 03:49 03:49 03:49 WBC RBC Hgb Hct MCV MCH RDW Lymph % (Auto) Lymph # Seg Neutrophils % Seg Neuts % (Manual) Lymphocytes % (Manual) Nucleated RBC % Seg Neutrophils # Seg Neutrophils # Man Lymphocytes # (Manual) PT INR D-Dimer 801.37 H ABG pH ABG pO2 ABG HCO3 ABG O2 Saturation ABG Base Excess ABG Hemoglobin Oxyhemoglobin Sodium 134 L Potassium Chloride Carbon Dioxide 13 L BUN 97 H Creatinine 4.8 H Glucose 123 H POC Glucose Hemoglobin A1c Lactic Acid Calcium 7.6 L Magnesium Ferritin 3101.0 H AST 112 H ALT 112 H Alkaline Phosphatase 145 H Lactate Dehydrogenase 896 H C-Reactive Protein 11.10 H Total Protein 5.5 L Albumin 1.7 L Vancomycin Trough Random Vancomycin Miscellaneous Test 01/31/20 01/31/20 01/31/20 03:49 08:00 11:48 WBC 16.1 H RBC Hgb Hct MCV MCH 25 L RDW Lymph % (Auto) Lymph # Seg Neutrophils % Seg Neuts % (Manual) Lymphocytes % (Manual) Nucleated RBC % Seg Neutrophils # Seg Neutrophils # Man Lymphocytes # (Manual) PT INR D-Dimer ABG pH ABG pO2 ABG HCO3 ABG O2 Saturation ABG Base Excess ABG Hemoglobin Oxyhemoglobin Sodium Potassium Chloride Carbon Dioxide BUN Creatinine Glucose POC Glucose 133 H 136 H Hemoglobin A1c Lactic Acid Calcium Magnesium Ferritin AST ALT Alkaline Phosphatase Lactate Dehydrogenase C-Reactive Protein Total Protein Albumin Vancomycin Trough Random Vancomycin Miscellaneous Test 01/31/20 01/31/20 01/31/20 16:14 21:37 22:35 WBC RBC Hgb Hct MCV MCH RDW Lymph % (Auto) Lymph # Seg Neutrophils % Seg Neuts % (Manual) Lymphocytes % (Manual) Nucleated RBC % Seg Neutrophils # Seg Neutrophils # Man Lymphocytes # (Manual) PT INR D-Dimer ABG pH 7.226 L ABG pO2 77.9 L ABG HCO3 15.2 L ABG O2 Saturation 93.5 L ABG Base Excess -11.6 L ABG Hemoglobin Oxyhemoglobin 91.5 L Sodium Potassium Chloride Carbon Dioxide BUN Creatinine Glucose POC Glucose 151 H 179 H Hemoglobin A1c Lactic Acid Calcium Magnesium Ferritin AST ALT Alkaline Phosphatase Lactate Dehydrogenase C-Reactive Protein Total Protein Albumin Vancomycin Trough Random Vancomycin Miscellaneous Test 02/01/20 02/01/20 02/01/20 03:49 03:49 04:30 WBC 19.3 H RBC 3.53 L Hgb 9.0 L Hct 28.1 L MCV MCH 26 L RDW Lymph % (Auto) Lymph # Seg Neutrophils % Seg Neuts % (Manual) Lymphocytes % (Manual) Nucleated RBC % Seg Neutrophils # Seg Neutrophils # Man Lymphocytes # (Manual) PT INR D-Dimer ABG pH 7.290 L ABG pO2 120.0 H ABG HCO3 14.2 L ABG O2 Saturation ABG Base Excess -11.2 L ABG Hemoglobin 9.3 L Oxyhemoglobin Sodium 135 L Potassium Chloride Carbon Dioxide 13 L BUN 79 H Creatinine 4.1 H Glucose 198 H POC Glucose Hemoglobin A1c Lactic Acid Calcium 7.0 L Magnesium Ferritin AST ALT Alkaline Phosphatase Lactate Dehydrogenase C-Reactive Protein Total Protein Albumin Vancomycin Trough Random Vancomycin Miscellaneous Test 02/01/20 02/01/20 02/02/20 08:13 11:29 00:05 WBC RBC Hgb Hct MCV MCH RDW Lymph % (Auto) Lymph # Seg Neutrophils % Seg Neuts % (Manual) Lymphocytes % (Manual) Nucleated RBC % Seg Neutrophils # Seg Neutrophils # Man Lymphocytes # (Manual) PT INR D-Dimer ABG pH ABG pO2 ABG HCO3 ABG O2 Saturation ABG Base Excess ABG Hemoglobin Oxyhemoglobin Sodium Potassium Chloride Carbon Dioxide BUN Creatinine Glucose POC Glucose 153 H 181 H 214 H Hemoglobin A1c Lactic Acid Calcium Magnesium Ferritin AST ALT Alkaline Phosphatase Lactate Dehydrogenase C-Reactive Protein Total Protein Albumin Vancomycin Trough Random Vancomycin Miscellaneous Test 02/02/20 02/02/20 02/02/20 04:17 04:30 04:30 WBC RBC Hgb Hct MCV MCH RDW Lymph % (Auto) Lymph # Seg Neutrophils % Seg Neuts % (Manual) Lymphocytes % (Manual) Nucleated RBC % Seg Neutrophils # Seg Neutrophils # Man Lymphocytes # (Manual) PT INR D-Dimer 795.93 H ABG pH ABG pO2 ABG HCO3 ABG O2 Saturation ABG Base Excess -3.0 L ABG Hemoglobin 8.5 L Oxyhemoglobin Sodium Potassium Chloride Carbon Dioxide BUN Creatinine Glucose POC Glucose Hemoglobin A1c Lactic Acid Calcium Magnesium Ferritin 1978.0 H AST ALT Alkaline Phosphatase Lactate Dehydrogenase C-Reactive Protein Total Protein Albumin Vancomycin Trough Random Vancomycin Miscellaneous Test 02/02/20 02/02/20 02/02/20 04:30 04:30 05:34 WBC 17.3 H RBC 3.24 L Hgb 8.4 L Hct 24.9 L MCV 77 L MCH 26 L RDW Lymph % (Auto) Lymph # Seg Neutrophils % Seg Neuts % (Manual) Lymphocytes % (Manual) Nucleated RBC % Seg Neutrophils # Seg Neutrophils # Man Lymphocytes # (Manual) PT INR D-Dimer ABG pH ABG pO2 ABG HCO3 ABG O2 Saturation ABG Base Excess ABG Hemoglobin Oxyhemoglobin Sodium Potassium Chloride Carbon Dioxide 17 L BUN 61 H Creatinine 4.1 H Glucose 244 H POC Glucose 274 H Hemoglobin A1c Lactic Acid Calcium 7.2 L Magnesium Ferritin AST ALT Alkaline Phosphatase Lactate Dehydrogenase 841 H C-Reactive Protein 11.50 H Total Protein Albumin Vancomycin Trough Random Vancomycin Miscellaneous Test 02/02/20 02/02/20 02/02/20 12:26 18:06 23:37 WBC RBC Hgb Hct MCV MCH RDW Lymph % (Auto) Lymph # Seg Neutrophils % Seg Neuts % (Manual) Lymphocytes % (Manual) Nucleated RBC % Seg Neutrophils # Seg Neutrophils # Man Lymphocytes # (Manual) PT INR D-Dimer ABG pH ABG pO2 ABG HCO3 ABG O2 Saturation ABG Base Excess ABG Hemoglobin Oxyhemoglobin Sodium Potassium Chloride Carbon Dioxide BUN Creatinine Glucose POC Glucose 254 H 285 H 239 H Hemoglobin A1c Lactic Acid Calcium Magnesium Ferritin AST ALT Alkaline Phosphatase Lactate Dehydrogenase C-Reactive Protein Total Protein Albumin Vancomycin Trough Random Vancomycin Miscellaneous Test 02/03/20 02/03/20 02/03/20 04:40 04:56 10:41 WBC RBC Hgb Hct MCV MCH RDW Lymph % (Auto) Lymph # Seg Neutrophils % Seg Neuts % (Manual) Lymphocytes % (Manual) Nucleated RBC % Seg Neutrophils # Seg Neutrophils # Man Lymphocytes # (Manual) PT INR D-Dimer ABG pH 7.520 H ABG pO2 73.8 L 92.5 H ABG HCO3 ABG O2 Saturation ABG Base Excess ABG Hemoglobin 8.6 L 7.9 L Oxyhemoglobin Sodium Potassium Chloride Carbon Dioxide BUN Creatinine Glucose POC Glucose 227 H Hemoglobin A1c Lactic Acid Calcium Magnesium Ferritin AST ALT Alkaline Phosphatase Lactate Dehydrogenase C-Reactive Protein Total Protein Albumin Vancomycin Trough Random Vancomycin Miscellaneous Test 02/03/20 12:09 WBC RBC Hgb Hct MCV MCH RDW Lymph % (Auto) Lymph # Seg Neutrophils % Seg Neuts % (Manual) Lymphocytes % (Manual) Nucleated RBC % Seg Neutrophils # Seg Neutrophils # Man Lymphocytes # (Manual) PT INR D-Dimer ABG pH ABG pO2 ABG HCO3 ABG O2 Saturation ABG Base Excess ABG Hemoglobin Oxyhemoglobin Sodium Potassium Chloride Carbon Dioxide BUN Creatinine Glucose POC Glucose 268 H Hemoglobin A1c Lactic Acid Calcium Magnesium Ferritin AST ALT Alkaline Phosphatase Lactate Dehydrogenase C-Reactive Protein Total Protein Albumin Vancomycin Trough Random Vancomycin Miscellaneous Test Chest x-ray: image reviewed Allied health notes reviewed: nursing
[2020-02-04] MEDS: fentaNYL DRIP Premix 2,000 MCG/100 ML BAG IV SCH ×2 (03:46→18:52)
--- NOTE | 2020-02-04 03:47 | XRay Report ---
CHEST 1 VIEW INDICATION / CLINICAL INFORMATION: follow up respiratory failure. COMPARISON: 02/03/2020 FINDINGS: SUPPORT DEVICES: Stable, satisfactory device positioning. HEART / MEDIASTINUM: Stable. LUNGS / PLEURA: The left upper lobe opacity has improved. There are hazy densities in both lower hemithoraces, atelectasis versus pleural effusion No pneumotho rax. ADDITIONAL FINDINGS: No significant additional findings. IMPRESSION: 1. Mild bibasilar pleural-parenchymal opacities. Signer Name: Colin Quevedo MD Signed: 02/04/2020 3:43 AM Workstation Name: [id number]
[2020-02-04 04:22] LABS: ABG Base Excess -1.6 mmol/L (-2.0-3.0); ABG HCO3 21.2 mmol/L (20.0-26.0); ABG Methemoglobin 0.6 % (0.0-1.5); ABG Oxygen Saturation 98.1 % (95.0-99.0); ABG PCO2 28.8 mm Hg; ABG PH 7.484 pH Units (7.350-7.450); ABG PO2 104.8 mm Hg (80.0-90.0)
[2020-02-04] MEDS: HEPARIN 5,000 UNIT/1 ML VIAL SUB-Q SCH ×3 (05:04→21:42)
[2020-02-04] MEDS: PIPERACIL-TAZO 2.25 GM/50 ML 2.25 GM/50 ML BAG IV SCH ×2 (05:06→18:52)
[2020-02-04] MEDS: INSULIN REGULAR, HUMAN 100 UNITS/1 ML SUB-Q SCH ×5 (05:07→18:53)
[2020-02-04 05:33] LABS: Hemoglobin 7.4 gm/dl (10.1-14.3); Mean Corpuscular HGB Conc 32 % (30-34); Mean Corpuscular Volume 79 fl (79-97); Platelet Count 195 K/mm3 (140-440); Red Blood Count 2.92 M/mm3 (3.65-5.03); Red Cell Distribution Width 13.5 % (13.2-15.2)
[2020-02-04 06:22] LABS: C-Reactive Protein 6.2 mg/dL (0.00-1.30); Calcium 8.3 mg/dL (8.4-10.2)
--- NOTE | 2020-02-04 08:21 | Progress Note ---
Assessment and Plan Assessment and plan: 29-year-old female with known history of diabetes mellitus presenting to the emergency room today complaining of pain on the right big toe. Patient had an injury to the right big toe about 2 to 3 weeks ago when an object fell on the toe. She has gone to an urgent care facility where she was given some antibiotics namely Bactrim to the right big toe wound. She has noticed that the wound has not improved and she has been having progressive pain. She denies any fever or chills, no nausea vomiting, no cough or shortness of breath, no chest pain. She denies any sick contacts and no recent travel. Work-up in the emergency room reveals hyperglycemia chest x-ray also reveals a left-sided pneumonia with accompanying sepsis. Patient started on empiric IV antibiotics. She is also given a tetanus vacc ination. Per the ED doctor the wound itself did not appear overtly superinfected. Although however the patient was tachycardic and febrile and as part of sepsis work-up as her labs indicated hyperglycemia with pseudohyponatremia, minimal anion gap acidosis, and a left-sided pulmonary infiltrate. Given the magnitude of her abnormal vital signs, concomitant diabetes, metabolic derangement, daily maciel meets criteria for hospitalization. We will treat her empirically for community-acquired pneumonia. She does not endorse any sick contacts or exposures to individuals with coronavirus. Nevertheless her test was sent and patient returned COVID positive. January 24 the patient results for COVID 19 came back positive. 01/28: In addition to treatment as noted below patient was noted to have indura cruz area in the left thigh, Concerning for abscess development. Will obtain CT of the lower extremity 01/29: Patient noted hypotensive. She is refusing her p.o. week to be placed she sustained a fall overnight while trying to walk to the bathroom. CT of the lower extremity still pending we will proceed with consult to surgeons. We will discontinue all blood pressure medications give a bolus of fluid while mindful of possible developing ARDS. We will also obtain repeated chest x-ray as patient appears more toxic today. 01/31: Patient reintubated about 30 minutes after surgical procedure due to decompensation with hypotension and hypoxemia despite 100% oxygen and CPAP. Patient remains currently on the vent. We will continue dialysis. While fire inspector assist with managing ventilator. We will continue to adjust blood sugar for better control. Patient is critically ill this has been conveyed to the family prior. 02/01: Mild improvement in inflammatory markers and chest x-ray. Otherwise patient still remains on mechanical ventilation still at high risk for ARDS mitigation processes are in place and plan. Continue aggressive management. She unfortunately still with low-grade intermittent fevers. Despite improvement in WBC. 02/02: Clinically stable wound VAC remains in place and functioning. Trial of CPAP today. Will recheck labs in a.m. inflammatory markers continue to improve ferritin is down to the 1900 range. 02/03: Inflammatory markers appear to be improving. There is some mild trickling down of hemoglobin we will continue to monitor this. Patient continues to tolerate dialysis. COVID 19 induced pneumonia Acute on chronic respiratory failure with postoperative decompensation now requi ring mechanical ventilation Acute metabolic encephalopathy Left thigh abscess status post I&D Multiple Organ Failure Severe Sepsis Diabetic foot wound nonhealing Morbid obesity hypoventilation syndrome Acute kidney injury secondary to vasomotor nephropathy Metabolic Acidosis Hypokalemia-resolved Presumed thigh abscess. Anemia Hyponatremia-resolving Diabetes mellitus with uncontrolled blood sugar Morbid obesity Hypertension monitor closely for septic shock Malnutrition: Decreased p.o. intake Severe Protein calorie Plan -Continue current work-up as dictated by infectious disease doctors will include Plaquenil and zinc combination. -Per surgery POD#2 s/p extensive I&D of left thigh abscess with sepsis and showing signs of multisystem organ insufficiency requiring ventilator support, possible dialysis, and vasopressers. wound vac was placed with wound care nurse. Next vac change scheduled for Tuesday. Continue abx and supportive care. -right-sided common femoral catheter placed for dialysis. -Very high inflammatory markers - ferritin [id number]. Ferritin elevated, CRP/LDH improving. Risk for cytokine storm secondary to COVID and high risk for ARDS -Patient may need to be on BiPAP if respiratory status is not improving and she continues to get weaker. -Continue vancomycin . -Follow culture from surgical procedure -Continue isolation and droplet precautions. Continuous pulse oximetry and telemetry. -Tight diabetic control -To the wound care -MRI of the right foot outpatient deferred due to COVID 19 treatment and nonemergent at this time -Replace electrolytes as needed -Obtain serial Ferritin, LDH, D-Dimer, CRP every 48h -Daily EKG - QT monitoring - stop plaqenil if QT interval >500 -Obtain IL-6 (sent out) to evaluate cytokine release syndrome due to COVID -Weight loss recommendations on discharge Family updated The high probability of a clinically significant, sudden or life threatening deterioration of the [pulmonary, renal, ] system(s) required my full and direct attention, intervention and personal management. The aggregate critical care time was [35] minutes. This time is in addition to time spent performing reported procedures but includes the following: [x] Data Review and interpretation [x] Patient assessment and monitoring of vital signs [x] Documentation [x] Medication orders and management Hospitalist Physical - Constitutional Vitals: Temp Pulse Resp BP Pulse Ox 98.6 F 67 30 H 134/71 100 02/04/20 04:00 02/04/20 05:30 02/04/20 05:30 02/04/20 05:30 02/04/20 05:30 General appearance: Present: no acute distress Results - Labs CBC & Chem 7: 02/04/20 04:42 02/04/20 04:42 Labs: Laboratory Last Values WBC 13.7 K/mm3 (4.5-11.0) H 02/04/20 04:42 RBC 2.92 M/mm3 (3.65-5.03) L 02/04/20 04:42 Hgb 7.4 gm/dl (10.1-14.3) L 02/04/20 04:42 Hct 23.0 % (30.3-42.9) L 02/04/20 04:42 MCV 79 fl (79-97) 02/04/20 04:42 MCH 25 pg (28-32) L 02/04/20 04:42 MCHC 32 % (30-34) 02/04/20 04:42 RDW 13.5 % (13.2-15.2) 02/04/20 04:42 Plt Count 195 K/mm3 (140-440) 02/04/20 04:42 Lymph % (Auto) 16.6 % (13.4-35.0) 01/18/20 08:30 Appling % (Auto) 2.8 % (0.0-7.3) 01/18/20 08:30 Eos % (Auto) 0.1 % (0.0-4.3) 01/18/20 08:30 Baso % (Auto) 0.4 % (0.0-1.8) 01/18/20 08:30 Lymph # 1.2 K/mm3 (1.2-5.4) 01/18/20 08:30 App[place] # 0.2 K/mm3 (0.0-0.8) 01/18/20 08:30 Eos # 0.0 K/mm3 (0.0-0.4) 01/18/20 08:30 Baso # 0.0 K/mm3 (0.0-0.1) 01/18/20 08:30 Add Manual Diff Complete 01/26/20 05:40 Total Counted 100 01/26/20 05:40 Seg Neutrophils % Relish Blender 01/26/20 05:40 Seg Neuts % (Manual) 90.0 % (40.0-70.0) H 01/26/20 05:40 Band Neutrophils % 5.0 % 01/26/20 05:40 Lymphocytes % (Manual) 1.0 % (13.4-35.0) L 01/26/20 05:40 Reactive Lymphs % (Man) 0 % 01/26/20 05:40 Monocytes % (Manual) 2.0 % (0.0-7.3) 01/26/20 05:40 Eosinophils % (Manual) 2.0 % (0.0-4.3) 01/26/20 05:40 Basophils % (Manual) 0 % (0.0-1.8) 01/26/20 05:40 Metamyelocytes % 0 % 01/26/20 05:40 Myelocytes % 0 % 01/26/20 05:40 Promyelocytes % 0 % 01/26/20 05:40 Blast Cells % 0 % 01/26/20 05:40 Nucleated RBC % 1.0 % (0.0-0.9) H 01/26/20 05:40 Seg Neutrophils # 5.9 K/mm3 (1.8-7.7) 01/18/20 08:30 Seg Neutrophils # Man 14.8 K/mm3 (1.8-7.7) H 01/26/20 05:40 Band Neutrophils # 0.8 K/mm3 01/26/20 05:40 Lymphocytes # (Manual) 0.2 K/mm3 (1.2-5.4) L 01/26/20 05:40 Abs React Lymphs (Man) 0.0 K/mm3 01/26/20 05:40 Monocytes # (Manual) 0.3 K/mm3 (0.0-0.8) 01/26/20 05:40 Eosinophils # (Manual) 0.3 K/mm3 (0.0-0.4) 01/26/20 05:40 Basophils # (Manual) 0.0 K/mm3 (0.0-0.1) 01/26/20 05:40 Metamyelocytes # 0.0 K/mm3 01/26/20 05:40 Myelocytes # 0.0 K/mm3 01/26/20 05:40 Promyelocytes # 0.0 K/mm3 01/26/20 05:40 Blast Cells # 0.0 K/mm3 01/26/20 05:40 WBC Morphology Not Reportable 01/26/20 05:40 Hypersegmented Neuts Not Reportable 01/26/20 05:40 Hyposegmented Neuts Not Reportable 01/26/20 05:40 Hypogranular Neuts Not Reportable 01/26/20 05:40 Smudge Cells Not Reportable 01/26/20 05:40 Toxic Granulation Not Reportable 01/26/20 05:40 Toxic Vacuolation Not Reportable 01/26/20 05:40 Dohle Bodies Not Reportable 01/26/20 05:40 Pelger-Huet Anomaly Not Reportable 01/26/20 05:40 Barbie Rods Not Reportable 01/26/20 05:40 Platelet Estimate Consistent w auto 01/26/20 05:40 Clumped Platelets Not Reportable 01/26/20 05:40 Plt Clumps, EDTA Not Reportable 01/26/20 05:40 Large Platelets Not Reportable 01/26/20 05:40 Giant Platelets Not Reportable 01/26/20 05:40 Platelet Satelliting Not Reportable 01/26/20 05:40 Plt Morphology Comment Not Reportable 01/26/20 05:40 RBC Morphology Normal 01/26/20 05:40 Dimorphic RBCs Not Reportable 01/26/20 05:40 Polychromasia Not Reportable 01/26/20 05:40 Hypochromasia Not Reportable 01/26/20 05:40 Poikilocytosis Not Reportable 01/26/20 05:40 Anisocytosis Not Reportable 01/26/20 05:40 Microcytosis Not Reportable 01/26/20 05:40 Macrocytosis Not Reportable 01/26/20 05:40 Spherocytes Not Reportable 01/26/20 05:40 Pappenheimer Bodies Not Reportable 01/26/20 05:40 Sickle Cells Not Reportable 01/26/20 05:40 Target Cells Not Reportable 01/26/20 05:40 Tear Drop Cells Not Reportable 01/26/20 05:40 Ovalocytes Not Reportable 01/26/20 05:40 Helmet Cells Not Reportable 01/26/20 05:40 Abernathy-Clarence Bodies Not Reportable 01/26/20 05:40 Colcord Rings Not Reportable 01/26/20 05:40 Pauline Cells Not Reportable 01/26/20 05:40 Bite Cells Not Reportable 01/26/20 05:40 Crenated Cell Not Reportable 01/26/20 05:40 Elliptocytes Not Reportable 01/26/20 05:40 Acanthocytes (Spur) Not Reportable 01/26/20 05:40 Rouleaux Not Reportable 01/26/20 05:40 Hemoglobin C Crystals Not Reportable 01/26/20 05:40 Schistocytes Not Reportable 01/26/20 05:40 Malaria parasites Not Reportable 01/26/20 05:40 ESR 70 mm/Hr (0-20) 01/17/20 22:58 Ras Bodies Not Reportable 01/26/20 05:40 Hem Pathologist Commnt No 01/26/20 05:40 PT 15.6 Sec. (12.2-14.9) H 01/17/20 18:28 INR 1.22 (0.87-1.13) H 01/17/20 18:28 D-Dimer 694.19 ng/mlDDU (0-234) H 02/04/20 04:42 ABG pH 7.484 pH Units (7.350-7.450) H 02/04/20 Unknown ABG pCO2 28.8 mm Hg 02/04/20 Unknown ABG pO2 104.8 mm Hg (80.0-90.0) H 02/04/20 Unknown ABG HCO3 21.2 mmol/L (20.0-26.0) 02/04/20 Unknown ABG O2 Saturation 98.1 % (95.0-99.0) 02/04/20 Unknown ABG O2 Content 13.0 (0.0-44) 02/04/20 Unknown ABG Base Excess -1.6 mmol/L (-2.0-3.0) 02/04/20 Unknown ABG Hemoglobin 9.5 gm/dl (12.0-16.0) L 02/04/20 Unknown ABG Carboxyhemoglobin 1.3 % (0.0-5.0) 02/04/20 Unknown ABG Methemoglobin 0.6 % (0.0-1.5) 02/04/20 Unknown VBG pH 7.409 (7.320-7.420) 01/17/20 18:28 Oxyhemoglobin 96.2 % (95.0-99.0) 02/04/20 Unknown FiO2 40 % 02/04/20 Unknown Sodium 140 mmol/L (137-145) 02/04/20 04:42 Potassium 4.0 mmol/L (3.6-5.0) 02/04/20 04:42 Chloride 102.4 mmol/L (98-107) 02/04/20 04:42 Carbon Dioxide 17 mmol/L (22-30) L 02/04/20 04:42 Anion Gap 25 mmol/L 02/04/20 04:42 BUN 80 mg/dL (7-17) H 02/04/20 04:42 Creatinine 5.8 mg/dL (0.7-1.2) H 02/04/20 04:42 Estimated GFR 10 ml/min 02/04/20 04:42 BUN/Creatinine Ratio 14 % 02/04/20 04:42 Glucose 209 mg/dL (65-100) H 02/04/20 04:42 POC Glucose 216 (70-105) H 02/04/20 04:31 Hemoglobin A1c 11.6 % (4-6) H 01/18/20 12:47 Lactic Acid 1.30 mmol/L (0.7-2.0) 01/18/20 08:30 Calcium 8.3 mg/dL (8.4-10.2) L D 02/04/20 04:42 Magnesium 1.50 mg/dL (1.7-2.3) L 01/17/20 22:58 Ferritin 1660.0 ng/mL (13.0-400.0) H 02/04/20 04:42 Total Bilirubin 0.50 mg/dL (0.1-1.2) 01/31/20 03:49 AST 112 units/L (5-40) H 01/31/20 03:49 ALT 112 units/L (7-56) H 01/31/20 03:49 Alkaline Phosphatase 145 units/L (35-129) H 01/31/20 03:49 Lactate Dehydrogenase 972 units/L (91-180) H 02/04/20 04:42 Total Creatine Kinase 122 units/L (30-135) 01/17/20 22:58 C-Reactive Protein 6.20 mg/dL (0.00-1.30) H 02/04/20 04:42 Total Protein 5.5 g/dL (6.3-8.2) L 01/31/20 03:49 Albumin 1.7 g/dL (3.9-5) L 01/31/20 03:49 Albumin/Globulin Ratio 0.4 % 01/31/20 03:49 Procalcitonin 0.27 ng/mL (<0.15) 01/23/20 10:36 HCG, Qual Negative (Negative) 01/31/20 03:49 Urine Color Yellow (Yellow) 01/18/20 00:32 Urine Turbidity Slightly-cloudy (Clear) 01/18/20 00:32 Urine pH 5.0 (5.0-7.0) 01/18/20 00:32 Ur Specific Beeler 1.011 (1.003-1.030) 01/18/20 00:32 Urine Protein 100 mg/dl mg/dL (Negative) 01/18/20 00:32 Urine Glucose (UA) >=500 mg/dL (Negative) 01/18/20 00:32 Urine Ketones Tr mg/dL (Negative) 01/18/20 00:32 Urine Blood Neg (Negative) 01/18/20 00:32 Urine Nitrite Neg (Negative) 01/18/20 00:32 Urine Bilirubin Neg (Negative) 01/18/20 00:32 Urine Urobilinogen < 2.0 mg/dL (<2.0) 01/18/20 00:32 Ur Leukocyte Esterase Neg (Negative) 01/18/20 00:32 Urine WBC (Auto) 2.0 /HPF (0.0-6.0) 01/18/20 00:32 Urine RBC (Auto) 4.0 /HPF (0.0-6.0) 01/18/20 00:32 U Epithel Cells (Auto) 2.0 /HPF (0-13.0) 01/18/20 00:32 Hyaline Casts 1 /LPF 01/18/20 00:32 Urine Mucus Few /HPF 01/18/20 00:32 Urine Yeast (Budding) Few /HPF 01/18/20 00:32 Vancomycin Trough 45.4 ug/mL (5.0-20.0) H 01/30/20 05:19 Random Vancomycin 30.6 ug/mL (0-40.0) 02/01/20 03:49 Hepatitis A IgM Ab Non-reactive (NonReactive) 02/01/20 10:57 Hep Bs Antigen Non-reactive (Negative) 02/01/20 10:57 Hep B Core IgM Ab Non-reactive (NonReactive) 02/01/20 10:57 Hepatitis C Antibody Non-reactive (NonReactive) 02/01/20 10:57 Influenza A (Rapid) Negative (Negative) 01/19/20 01:10 Influenza B (Rapid) Negative (Negative) 01/19/20 01:10 AFB Identification 01/20/20 04:00 Miscellaneous Test Flexitest 1 H 01/28/20 10:00 Microbiology: Microbiology 01/31/20 Unknown Thigh - Left Surgical Biopsy Culture - Preliminary Goldstein/IV: Voiding Method Condom Catheter IV Catheter Type [right ac] Peripheral IV IV Catheter Type [Right vascath Femoral] IV Catheter Type [Right Peripheral IV Forearm] IV Catheter Type [Right Wrist] INT / Saline Lock IV Catheter Type [Right Hand] INT / Saline Lock IV Catheter Type [Right Upper INT / Saline Lock arm] IV Catheter Type [Left Hand] INT / Saline Lock Active Medications - Current Medications Current Medications: Generic Name Dose Route Start Last Admin Trade Name Freq PRN Reason Stop Dose Admin Acetaminophen 650 mg 01/17/20 23:06 01/29/20 22:43 Tylenol PO 650 mg Q4H PRN Administration Pain MILD(1-3)/Fever >100.5/COLLINS Lipase/Protease/Amylase 1 each 02/01/20 09:53 Pancreacee 10,500 Unit FEEDTUBE PRN PRN For Clogged Feeding Tube Dextrose 0 ml 01/17/20 23:06 D50w (25gm) Syringe IV Q30MIN PRN Hypoglycemia Protocol Famotidine 20 mg 01/24/20 10:00 02/03/20 09:20 Pepcid PO 20 mg QDAY COBY Administration Fentanyl 50 mcg 01/31/20 21:48 Sublimaze IV Q10MIN PRN ANALGESIA Heparin Sodium (Porcine) 5,000 unit 01/18/20 06:00 02/04/20 05:04 Heparin SUB-Q 5,000 unit Q8HR COBY Administration Hydralazine HCl 10 mg 01/18/20 22:14 01/22/20 18:43 Apresoline IV 10 mg Q6H PRN Administration Hypertension Hydrophilic Ointment 1 applic 01/31/20 21:48 Vaseline Lip Therapy TP Q2HR PRN Dry Lips Fentanyl Citrate 2,000 mcg in 100 mls @ 7.395 mls/hr 01/31/20 22:00 02/04/20 03:46 Fentanyl Drip Premix IV 1 mcg/kg/hr TITR COBY 7.395 mls/hr Administration Protocol 1 MCG/KG/HR Norepinephrine 4 mg in 250 mls @ 7.5 mls/hr 01/31/20 23:45 02/02/20 20:15 Levophed Drip 4 Mg/Ns 250 Ml IV 0 mcg/min TITR COBY 0 mls/hr Titration Protocol 2 MCG/MIN Sodium Chloride 100 mls @ 999 mls/hr 02/01/20 10:26 Nacl 0.9% IV KIRSTEN PRN Hypotension Piperacillin Sod/Tazobactam Sod 2.25 gm in 50 mls @ 100 mls/hr 02/01/20 14:00 02/04/20 05:06 Zosyn/Ns 2.25 Gm/50ml IV 02/07/20 23:59 100 mls/hr Q8HR [facility] Administration Protocol Insulin Human Isoph/Insulin Regular 20 unit 02/04/20 08:16 Humulin 70/30 SUB-Q BIDDIAB [facility] Insulin Human Regular 0 units 02/01/20 12:00 02/04/20 05:07 Humulin R SUB-Q 3 units Q6HR [facility] Administration Protocol Magnesium Hydroxide 30 ml 01/17/20 23:06 Milk Of Magnesia PO Q4H PRN Constipation Morphine Sulfate 2 mg 01/17/20 23:06 01/30/20 20:39 Morphine IV 2 mg Q4H PRN Administration Pain, Moderate (4-6) Multi-Ingred Cream/Lotion/Oil/Oint 1 applic 01/31/20 21:48 Artificial Tears Ophth Oint OU Q4HR PRN Dry Eye(s) Nystatin 1 applic 01/29/20 14:00 02/03/20 21:24 Nystop TP 1 applic BID COBY Administration Ondansetron HCl 4 mg 01/17/20 23:06 01/30/20 20:47 Zofran IV 4 mg Q8H PRN Administration Nausea And Vomiting Simple Syrup 15 ml 02/01/20 09:53 Simple Syrup FEEDTUBE PRN PRN Hypoglycemia Simple Syrup 30 ml 02/01/20 09:53 Simple Syrup FEEDTUBE PRN PRN Hypoglycemia Sodium Bicarbonate 325 mg 02/01/20 09:53 Sodium Bicarbonate FEEDTUBE PRN PRN For Clogged Feeding Tube Sodium Chloride 10 ml 01/18/20 10:00 02/03/20 21:23 Sodium Chloride Flush Syringe 10 Ml IV 10 ml BID COBY Administration Sodium Chloride 10 ml 01/17/20 23:06 02/04/20 05:07 Sodium Chloride Flush Syringe 10 Ml IV 10 ml PRN PRN Administration LINE FLUSH Nutrition/Malnutrition Assess - Dietary Evaluation Nutrition/Malnutrition Findings: Nutrition Notes Start: 01/18/20 13:13 Freq: Status: Active Protocol: Document 02/01/20 08:31 LM (Rec: 02/01/20 08:41 LM [id number]) Nutrition Notes Need for Assessment generated from: MD Order Initial or Follow up Reassessment Current Diagnosis Diabetes,Sepsis Other Pertinent Diagnosis COVID-19 positive, LEV pnue, ( R) great toe wound Current Diet NPO Labs/Tests Na 135 BG 198 Pertinent Medications Levophed Height 6 ft Weight 147.9 kg Elsie Body Weight (kg) 72.72 BMI 44.1 Weight Status Morbidly Obese Subjective/Other Information MD consult to evaluate nutritional intake and TF. Pt extubated on 01/31/20. Already following pt. Burn Absent Trauma Absent Current % PO Negligible Minimum of two criteria No physical signs of malnutrition #3 Nutrition Diagnosis Inadequate oral intake Etiology Mechanical vent As Evidenced by Signs and Symptoms Pt unable to consume PO #2 Nutrition Diagnosis Inadequate protein-energy intake Diagnosis Progress(for reassessment Continues documentation) #1 Nutrition Diagnosis Increased nutrient needs ( specify in comment below) Diagnosis Progress(for reassessment Continues documentation) Is patient on ventilator? Yes Is Patient Ambulatory and/or Out of Bed Yes REE-([place]-St. Jeor-ambulatory/OOB) [ 3004.300 [id number]] Kcal/Kg value to use for calculation 14 Approximate Energy Requirements Using 2071 kcal/Kg Calculation Used for Recommendations Kcal/kg Additional Notes Protein: 183g (up to 2.5g/kg using IBW 73kg Fluid needs 1ml/kcal Nutrition Intervention Change Diet Order: TF Nutrition Support: Vital HP 1.0 at 75ml/hr Flush 50 ml q6h for hyponatremia Flush 50 ml q4h once resolved Kcal 1,800 Protein (gm) 158 Fluid (mL) 1,505 Goal #1 TF start/tolerance Anticipated Discharge Needs: unable to determine at this time Follow-Up By: 02/04/20 Additional Comments F/U for TF start/tolerance
[2020-02-04] MEDS ORDERED: INSULIN NPH/REGULAR 70/30 INJ SUB-Q ONE (09:00)
[2020-02-04] MEDS ORDERED: SODIUM CHLORIDE 0.9% 100 ML IV PRN (09:10)
--- NOTE | 2020-02-04 09:40 | Progress Note ---
Assessment and Plan Severe Sepsis with septic shock; SOFA >2 Acute hypoxemic respiratory failure on MVS Left upper lobe pneumonia ; COVID 19 induced pneumonia Diabetes II Morbid obesity Febrile illness POSITIVE COVID-19 infection Diabetic foot ulcer Lactic acidosis CIPRIANO-secondary to ATN, vasomotor nephropathy on HD Thigh abscess s/p I and D More awake and alert, with improvements in oxygenation and radiographically SBT today post HD SBT in the morning, if she tolerates it well, get weaning parameters, will plan to liberate from MVS if she meets criteria Stop fentanyl and use intermittent dosing Adjusted insulin therapy in discussion with clinical pharmacist for better glycemic control- increased lantus and scheduled insulin Continue all critical care as documented below -VAP bundle addressed -Lung protective measures, Monitor airway pressures -Daily SAT and SBT as tolerated and per protocol -Titrate sedation to RASS of -1 -Very high inflammatory markers - ferritin 2758; CRP/LDH -much improved Risk for cytokine storm secondary to COVID and high risk for ARDS IL-6 elevated 105 -Serial Ferritin, LDH, D-Dimer, CRP every 48h -Conservative fluid management- use vasopressors including midodrine to support blood pressure as indicated. -ABG, CXR in am -Aspiration precautions, HOB >40 -Accuchecks with glycemic control, keep blood glucose 140-180 mg/dL while critically ill -Avoid hypoglycemia -Avoid nephrotoxins, adjust and dose all medications for GFR and CrCL -Supportive HD per renal service -VTE prophylaxis- heparin -Stress ulcer prophylaxis- Famotidine -Wound care per Surgery service- has a wound vac -Replace electrolytes as needed -COVID-19 precautions per [facility] protocol -All other care per Attending and consultants CONDITION: CRITICAL PROGNOSIS: GUARDED CODE STATUS: FULL CODE The high probability of a clinically significant, sudden or life threatening deterioration of the pulmonary, cardiovascular, renal, neurology, system(s) required my full and direct attention, intervention and personal management. The aggregate critical care time was [35] minutes. This time is in addition to time spent performing reported procedures but includes the following: [x] Data Review and interpretation [x] Patient assessment and monitoring of vital signs [x] Documentation [x] Medication orders and management Subjective Date of service: 02/04/20 Principal diagnosis: Severe Sepsis; LEV PNA; DM II; Morbid obesity; R/O COVID-19 infection Interval history: Patient is seen today for: Severe Sepsis with septic shock ; LEV pneumonia; Acute hypoxemic respiratory failure on MVS; Diabetes II; Morbid obesity; Febrile illness; POSITIVE COVID-19 infection; Diabetic foot ulcer; Hyponatremia; Lactic acidosis Seen and examined at bedside; 24hour events reviewed; nursing and respiratory care staff consulted; no adverse overnight events reported to me; 02/01/2020 POD#1 s/p extensive I&D of left thigh abscess with sepsis and showing signs of multi-system organ failure; critically ill orally intubated on MVS; on HD , and vasopressor support. Norepinephrine at 14mcg; Fentanyl at 1mcg. No urine output, has a right femoral trialysis catheter. Currently on Zosyn, received one dose of Vancomycin- therapeutic level is markedly increased. pH 7.29- metabolic acidosis. 02/04/2020 Vitals, labs, medications, chart and imaging reviewed. Remains orally intubated ETT 7.5cm at 22cm at the [facility] 14/450/6/40% ..pA02 104.8 Poor glycemic control with blood glucose>200 On Zosyn D4/7 Ferritin down to 1660, D-dimer down to 694, CRP down to 6.2, sligh elevation of LDH to 972 Fentanyl at 1mcg with RASS -1 Norepinephrine off ( 02/02/2020) CXR alveolar infiltrates improving For HD today Objective Vital Signs - 12hr 02/03/20 02/03/20 02/03/20 21:46 22:00 22:12 Temperature Pulse Rate 80 78 78 Pulse Rate [ From Monitor] Respiratory 30 H 30 H 30 H Rate Blood Pressure 130/67 129/66 129/67 O2 Sat by Pulse 99 99 99 Oximetry 02/03/20 02/03/20 02/03/20 22:16 22:30 22:46 Temperature Pulse Rate 77 79 77 Pulse Rate [ From Monitor] Respiratory 30 H 30 H 30 H Rate Blood Pressure 129/67 133/71 130/68 O2 Sat by Pulse 99 100 100 Oximetry 02/03/20 02/03/20 02/03/20 23:00 23:16 23:30 Temperature Pulse Rate 75 77 70 Pulse Rate [ From Monitor] Respiratory 30 H 30 H 30 H Rate Blood Pressure 131/69 133/70 139/76 O2 Sat by Pulse 100 100 100 Oximetry 02/03/20 02/03/20 02/04/20 23:46 23:50 00:00 Temperature 98.8 F Pulse Rate 72 72 Pulse Rate [ 83 From Monitor] Respiratory 30 H 30 H 30 H Rate Blood Pressure 131/72 131/69 O2 Sat by Pulse 100 100 100 Oximetry 02/04/20 02/04/20 02/04/20 00:16 00:30 00:46 Temperature Pulse Rate 74 72 71 Pulse Rate [ From Monitor] Respiratory 30 H 30 H 30 H Rate Blood Pressure 133/72 136/73 134/72 O2 Sat by Pulse 100 100 100 Oximetry 02/04/20 02/04/20 02/04/20 00:55 01:00 01:16 Temperature Pulse Rate 72 71 71 Pulse Rate [ From Monitor] Respiratory 30 H 30 H Rate Blood Pressure 138/69 130/71 126/70 O2 Sat by Pulse 100 100 100 Oximetry 02/04/20 02/04/20 02/04/20 01:25 01:30 01:46 Temperature Pulse Rate 71 72 71 Pulse Rate [ 83 From Monitor] Respiratory 30 H 30 H 30 H Rate Blood Pressure 123/67 125/68 O2 Sat by Pulse 100 100 100 Oximetry 02/04/20 02/04/20 02/04/20 02:00 02:16 02:30 Temperature Pulse Rate 83 70 70 Pulse Rate [ From Monitor] Respiratory 30 H 30 H 30 H Rate Blood Pressure 148/76 135/67 129/69 O2 Sat by Pulse 100 100 100 Oximetry 02/04/20 02/04/20 02/04/20 02:46 03:00 03:16 Temperature Pulse Rate 69 67 71 Pulse Rate [ From Monitor] Respiratory 30 H 30 H 30 H Rate Blood Pressure 127/66 129/66 124/65 O2 Sat by Pulse 100 100 100 Oximetry 02/04/20 02/04/20 02/04/20 03:30 03:46 04:00 Temperature 98.6 F Pulse Rate 71 77 75 Pulse Rate [ From Monitor] Respiratory 30 H 30 H 30 H Rate Blood Pressure 123/66 133/68 147/75 O2 Sat by Pulse 100 100 100 Oximetry 02/04/20 02/04/20 02/04/20 04:16 04:30 04:46 Temperature Pulse Rate 69 67 72 Pulse Rate [ From Monitor] Respiratory 30 H 30 H 30 H Rate Blood Pressure 147/75 129/65 131/71 O2 Sat by Pulse 100 100 100 Oximetry 02/04/20 02/04/20 02/04/20 05:00 05:01 05:15 Temperature Pulse Rate 71 78 68 Pulse Rate [ 83 From Monitor] Respiratory 30 H 30 H Rate Blood Pressure 129/69 135/72 O2 Sat by Pulse 99 100 100 Oximetry 02/04/20 02/04/20 02/04/20 05:16 05:30 05:46 Temperature Pulse Rate 68 67 67 Pulse Rate [ From Monitor] Respiratory 30 H 30 H 30 H Rate Blood Pressure 135/75 134/71 130/68 O2 Sat by Pulse 100 100 100 Oximetry 02/04/20 02/04/20 02/04/20 06:00 06:16 06:30 Temperature Pulse Rate 69 72 69 Pulse Rate [ From Monitor] Respiratory 30 H 30 H 30 H Rate Blood Pressure 141/72 132/68 132/68 O2 Sat by Pulse 100 100 100 Oximetry 02/04/20 02/04/20 02/04/20 06:46 07:00 07:16 Temperature Pulse Rate 69 71 73 Pulse Rate [ From Monitor] Respiratory 30 H 30 H 30 H Rate Blood Pressure 132/72 132/72 127/67 O2 Sat by Pulse 100 100 100 Oximetry 02/04/20 02/04/20 02/04/20 07:30 07:46 08:00 Temperature 98.8 F Pulse Rate 68 69 92 H Pulse Rate [ From Monitor] Respiratory 30 H 30 H 30 H Rate Blood Pressure 131/74 140/73 138/73 O2 Sat by Pulse 100 100 100 Oximetry 02/04/20 08:30 Temperature Pulse Rate 93 H Pulse Rate [ From Monitor] Respiratory 17 Rate Blood Pressure 154/98 O2 Sat by Pulse 100 Oximetry Constitutional: other (young obese AAF, normocephalic, orally intubated on MVS) Eyes: non-icteric ENT: oropharynx dry Neck: supple, no lymphadenopathy, no JVD Effort: mildly labored Ascultation: Bilateral: diminished breath sounds, rales (scant in bases) Percussion: Bilateral: not dull Cardiovascular: regular rate and rhythm, other (S1,S2) Gastrointestinal: normoactive bowel sounds, soft, non-tender, non-distended Integumentary: other (Thigh abscess s/p I and D) Extremities: no cyanosis, no edema, pulses normal, no ischemia or petechiae Neurologic: pupils equal and round, other (sedated, encephalopathic) Psychiatric: other (unable to assess) CBC and BMP: 02/05/20 03:51 02/05/20 03:51 ABG, PT/INR, D-dimer: ABG ABG pH 7.484 pH Units (7.350-7.450) H 02/04/20 Unknown ABG pCO2 28.8 mm Hg 02/04/20 Unknown ABG pO2 104.8 mm Hg (80.0-90.0) H 02/04/20 Unknown ABG O2 Saturation 98.1 % (95.0-99.0) 02/04/20 Unknown PT/INR, D-dimer PT 15.6 Sec. (12.2-14.9) H 01/17/20 18:28 INR 1.22 (0.87-1.13) H 01/17/20 18:28 D-Dimer 694.19 ng/mlDDU (0-234) H 02/04/20 04:42 Abnormal lab findings: Abnormal Labs 01/17/20 01/17/20 01/17/20 18:28 18:28 18:28 WBC RBC Hgb Hct MCV MCH 26 L RDW Lymph % (Auto) 9.3 L Lymph # 1.0 L Seg Neutrophils % 86.7 H Seg Neuts % (Manual) Lymphocytes % (Manual) Nucleated RBC % Seg Neutrophils # 9.6 H Seg Neutrophils # Man Lymphocytes # (Manual) PT 15.6 H INR 1.22 H D-Dimer ABG pH ABG pO2 ABG HCO3 ABG O2 Saturation ABG Base Excess ABG Hemoglobin Oxyhemoglobin Sodium 126 L Potassium Chloride 89.3 L Carbon Dioxide 19 L BUN Creatinine Glucose 397 H POC Glucose Hemoglobin A1c Lactic Acid Calcium Magnesium Ferritin AST ALT Alkaline Phosphatase Lactate Dehydrogenase C-Reactive Protein Total Protein 9.0 H Albumin Vancomycin Trough Random Vancomycin Miscellaneous Test 01/17/20 01/17/20 01/17/20 18:28 22:58 22:58 WBC RBC Hgb Hct MCV MCH RDW Lymph % (Auto) Lymph # Seg Neutrophils % Seg Neuts % (Manual) Lymphocytes % (Manual) Nucleated RBC % Seg Neutrophils # Seg Neutrophils # Man Lymphocytes # (Manual) PT INR D-Dimer ABG pH ABG pO2 ABG HCO3 ABG O2 Saturation ABG Base Excess ABG Hemoglobin Oxyhemoglobin Sodium Potassium Chloride Carbon Dioxide BUN Creatinine Glucose POC Glucose Hemoglobin A1c Lactic Acid 3.40 H* 2.30 H* Calcium Magnesium 1.50 L Ferritin AST ALT Alkaline Phosphatase Lactate Dehydrogenase C-Reactive Protein 16.60 H Total Protein Albumin Vancomycin Trough Random Vancomycin Miscellaneous Test 01/18/20 01/18/20 01/18/20 00:46 06:34 08:30 WBC RBC Hgb Hct MCV MCH 26 L RDW 12.7 L Lymph % (Auto) Lymph # Seg Neutrophils % 80.1 H Seg Neuts % (Manual) Lymphocytes % (Manual) Nucleated RBC % Seg Neutrophils # Seg Neutrophils # Man Lymphocytes # (Manual) PT INR D-Dimer ABG pH ABG pO2 ABG HCO3 ABG O2 Saturation ABG Base Excess ABG Hemoglobin Oxyhemoglobin Sodium Potassium Chloride Carbon Dioxide BUN Creatinine Glucose POC Glucose 338 H 266 H Hemoglobin A1c Lactic Acid Calcium Magnesium Ferritin AST ALT Alkaline Phosphatase Lactate Dehydrogenase C-Reactive Protein Total Protein Albumin Vancomycin Trough Random Vancomycin Miscellaneous Test 01/18/20 01/18/20 01/18/20 08:30 08:35 12:30 WBC RBC Hgb Hct MCV MCH RDW Lymph % (Auto) Lymph # Seg Neutrophils % Seg Neuts % (Manual) Lymphocytes % (Manual) Nucleated RBC % Seg Neutrophils # Seg Neutrophils # Man Lymphocytes # (Manual) PT INR D-Dimer ABG pH ABG pO2 ABG HCO3 ABG O2 Saturation ABG Base Excess ABG Hemoglobin Oxyhemoglobin Sodium 135 L D Potassium Chloride Carbon Dioxide BUN Creatinine Glucose 250 H POC Glucose 224 H 213 H Hemoglobin A1c Lactic Acid Calcium Magnesium Ferritin AST ALT Alkaline Phosphatase Lactate Dehydrogenase C-Reactive Protein Total Protein Albumin Vancomycin Trough Random Vancomycin Miscellaneous Test 01/18/20 01/18/20 01/18/20 12:47 16:56 22:03 WBC RBC Hgb Hct MCV MCH RDW Lymph % (Auto) Lymph # Seg Neutrophils % Seg Neuts % (Manual) Lymphocytes % (Manual) Nucleated RBC % Seg Neutrophils # Seg Neutrophils # Man Lymphocytes # (Manual) PT INR D-Dimer ABG pH ABG pO2 ABG HCO3 ABG O2 Saturation ABG Base Excess ABG Hemoglobin Oxyhemoglobin Sodium Potassium Chloride Carbon Dioxide BUN Creatinine Glucose POC Glucose 270 H 239 H Hemoglobin A1c 11.6 H Lactic Acid Calcium Magnesium Ferritin AST ALT Alkaline Phosphatase Lactate Dehydrogenase C-Reactive Protein Total Protein Albumin Vancomycin Trough Random Vancomycin Miscellaneous Test 01/19/20 01/19/20 01/19/20 06:15 11:48 13:09 WBC RBC Hgb Hct MCV MCH 26 L RDW Lymph % (Auto) Lymph # Seg Neutrophils % Seg Neuts % (Manual) Lymphocytes % (Manual) Nucleated RBC % Seg Neutrophils # Seg Neutrophils # Man Lymphocytes # (Manual) PT INR D-Dimer ABG pH ABG pO2 ABG HCO3 ABG O2 Saturation ABG Base Excess ABG Hemoglobin Oxyhemoglobin Sodium Potassium Chloride Carbon Dioxide BUN Creatinine Glucose POC Glucose 248 H 268 H Hemoglobin A1c Lactic Acid Calcium Magnesium Ferritin AST ALT Alkaline Phosphatase Lactate Dehydrogenase C-Reactive Protein Total Protein Albumin Vancomycin Trough Random Vancomycin Miscellaneous Test 01/19/20 01/19/20 01/20/20 17:44 21:09 09:03 WBC RBC Hgb Hct MCV MCH RDW Lymph % (Auto) Lymph # Seg Neutrophils % Seg Neuts % (Manual) Lymphocytes % (Manual) Nucleated RBC % Seg Neutrophils # Seg Neutrophils # Man Lymphocytes # (Manual) PT INR D-Dimer ABG pH ABG pO2 ABG HCO3 ABG O2 Saturation ABG Base Excess ABG Hemoglobin Oxyhemoglobin Sodium Potassium Chloride Carbon Dioxide BUN Creatinine Glucose POC Glucose 214 H 261 H 241 H Hemoglobin A1c Lactic Acid Calcium Magnesium Ferritin AST ALT Alkaline Phosphatase Lactate Dehydrogenase C-Reactive Protein Total Protein Albumin Vancomycin Trough Random Vancomycin Miscellaneous Test 01/20/20 01/20/20 01/20/20 12:10 17:00 19:43 WBC RBC Hgb Hct MCV MCH RDW Lymph % (Auto) Lymph # Seg Neutrophils % Seg Neuts % (Manual) Lymphocytes % (Manual) Nucleated RBC % Seg Neutrophils # Seg Neutrophils # Man Lymphocytes # (Manual) PT INR D-Dimer ABG pH ABG pO2 ABG HCO3 ABG O2 Saturation ABG Base Excess ABG Hemoglobin Oxyhemoglobin Sodium Potassium Chloride Carbon Dioxide BUN Creatinine Glucose POC Glucose 284 H 272 H Hemoglobin A1c Lactic Acid Calcium Magnesium Ferritin AST ALT Alkaline Phosphatase Lactate Dehydrogenase C-Reactive Protein Total Protein Albumin Vancomycin Trough 4.0 L Random Vancomycin Miscellaneous Test 01/20/20 01/21/20 01/21/20 22:39 09:29 11:41 WBC RBC Hgb Hct MCV MCH 26 L RDW Lymph % (Auto) Lymph # Seg Neutrophils % Seg Neuts % (Manual) Lymphocytes % (Manual) Nucleated RBC % Seg Neutrophils # Seg Neutrophils # Man Lymphocytes # (Manual) PT INR D-Dimer ABG pH ABG pO2 ABG HCO3 ABG O2 Saturation ABG Base Excess ABG Hemoglobin Oxyhemoglobin Sodium Potassium Chloride Carbon Dioxide BUN Creatinine Glucose POC Glucose 248 H 238 H Hemoglobin A1c Lactic Acid Calcium Magnesium Ferritin AST ALT Alkaline Phosphatase Lactate Dehydrogenase C-Reactive Protein Total Protein Albumin Vancomycin Trough Random Vancomycin Miscellaneous Test 01/21/20 01/21/20 01/21/20 11:41 12:27 16:55 WBC RBC Hgb Hct MCV MCH RDW Lymph % (Auto) Lymph # Seg Neutrophils % Seg Neuts % (Manual) Lymphocytes % (Manual) Nucleated RBC % Seg Neutrophils # Seg Neutrophils # Man Lymphocytes # (Manual) PT INR D-Dimer ABG pH ABG pO2 ABG HCO3 ABG O2 Saturation ABG Base Excess ABG Hemoglobin Oxyhemoglobin Sodium 132 L Potassium 3.5 L Chloride 97.0 L Carbon Dioxide 19 L BUN Creatinine Glucose 274 H POC Glucose 264 H 261 H Hemoglobin A1c Lactic Acid Calcium Magnesium Ferritin AST ALT Alkaline Phosphatase Lactate Dehydrogenase C-Reactive Protein Total Protein Albumin Vancomycin Trough Random Vancomycin Miscellaneous Test 01/21/20 01/22/20 01/22/20 22:39 09:05 12:57 WBC RBC Hgb Hct MCV MCH RDW Lymph % (Auto) Lymph # Seg Neutrophils % Seg Neuts % (Manual) Lymphocytes % (Manual) Nucleated RBC % Seg Neutrophils # Seg Neutrophils # Man Lymphocytes # (Manual) PT INR D-Dimer ABG pH ABG pO2 ABG HCO3 ABG O2 Saturation ABG Base Excess ABG Hemoglobin Oxyhemoglobin Sodium Potassium Chloride Carbon Dioxide BUN Creatinine Glucose POC Glucose 243 H 258 H 252 H Hemoglobin A1c Lactic Acid Calcium Magnesium Ferritin AST ALT Alkaline Phosphatase Lactate Dehydrogenase C-Reactive Protein Total Protein Albumin Vancomycin Trough Random Vancomycin Miscellaneous Test 01/22/20 01/22/20 01/23/20 17:14 21:30 09:03 WBC RBC Hgb Hct MCV MCH RDW Lymph % (Auto) Lymph # Seg Neutrophils % Seg Neuts % (Manual) Lymphocytes % (Manual) Nucleated RBC % Seg Neutrophils # Seg Neutrophils # Man Lymphocytes # (Manual) PT INR D-Dimer ABG pH ABG pO2 ABG HCO3 ABG O2 Saturation ABG Base Excess ABG Hemoglobin Oxyhemoglobin Sodium Potassium Chloride Carbon Dioxide BUN Creatinine Glucose POC Glucose 306 H 217 H 156 H Hemoglobin A1c Lactic Acid Calcium Magnesium Ferritin AST ALT Alkaline Phosphatase Lactate Dehydrogenase C-Reactive Protein Total Protein Albumin Vancomycin Trough Random Vancomycin Miscellaneous Test 01/23/20 01/23/20 01/23/20 10:36 11:12 17:11 WBC RBC Hgb Hct MCV MCH RDW Lymph % (Auto) Lymph # Seg Neutrophils % Seg Neuts % (Manual) Lymphocytes % (Manual) Nucleated RBC % Seg Neutrophils # Seg Neutrophils # Man Lymphocytes # (Manual) PT INR D-Dimer ABG pH ABG pO2 ABG HCO3 ABG O2 Saturation ABG Base Excess ABG Hemoglobin Oxyhemoglobin Sodium Potassium 3.0 L Chloride Carbon Dioxide 21 L BUN Creatinine Glucose 266 H POC Glucose 244 H 238 H Hemoglobin A1c Lactic Acid Calcium 8.3 L Magnesium Ferritin AST ALT Alkaline Phosphatase Lactate Dehydrogenase C-Reactive Protein Total Protein Albumin Vancomycin Trough Random Vancomycin Miscellaneous Test 01/23/20 01/24/20 01/24/20 22:57 06:03 12:12 WBC RBC Hgb Hct MCV MCH RDW Lymph % (Auto) Lymph # Seg Neutrophils % Seg Neuts % (Manual) Lymphocytes % (Manual) Nucleated RBC % Seg Neutrophils # Seg Neutrophils # Man Lymphocytes # (Manual) PT INR D-Dimer ABG pH ABG pO2 ABG HCO3 ABG O2 Saturation ABG Base Excess ABG Hemoglobin Oxyhemoglobin Sodium Potassium 3.2 L Chloride Carbon Dioxide 19 L BUN Creatinine Glucose 231 H POC Glucose 228 H 210 H Hemoglobin A1c Lactic Acid Calcium 8.2 L Magnesium Ferritin AST ALT Alkaline Phosphatase Lactate Dehydrogenase C-Reactive Protein Total Protein Albumin Vancomycin Trough Random Vancomycin Miscellaneous Test 01/24/20 01/24/20 01/24/20 12:50 19:01 21:49 WBC RBC Hgb Hct MCV MCH RDW Lymph % (Auto) Lymph # Seg Neutrophils % Seg Neuts % (Manual) Lymphocytes % (Manual) Nucleated RBC % Seg Neutrophils # Seg Neutrophils # Man Lymphocytes # (Manual) PT INR D-Dimer ABG pH 7.485 H ABG pO2 63.4 L ABG HCO3 ABG O2 Saturation ABG Base Excess ABG Hemoglobin 5.0 L Oxyhemoglobin Sodium Potassium Chloride Carbon Dioxide BUN Creatinine Glucose POC Glucose 183 H 193 H Hemoglobin A1c Lactic Acid Calcium Magnesium Ferritin AST ALT Alkaline Phosphatase Lactate Dehydrogenase C-Reactive Protein Total Protein Albumin Vancomycin Trough Random Vancomycin Miscellaneous Test 01/25/20 01/25/20 01/25/20 09:13 16:58 22:23 WBC RBC Hgb Hct MCV MCH RDW Lymph % (Auto) Lymph # Seg Neutrophils % Seg Neuts % (Manual) Lymphocytes % (Manual) Nucleated RBC % Seg Neutrophils # Seg Neutrophils # Man Lymphocytes # (Manual) PT INR D-Dimer ABG pH ABG pO2 ABG HCO3 ABG O2 Saturation ABG Base Excess ABG Hemoglobin Oxyhemoglobin Sodium Potassium Chloride Carbon Dioxide BUN Creatinine Glucose POC Glucose 196 H 231 H 159 H Hemoglobin A1c Lactic Acid Calcium Magnesium Ferritin AST ALT Alkaline Phosphatase Lactate Dehydrogenase C-Reactive Protein Total Protein Albumin Vancomycin Trough Random Vancomycin Miscellaneous Test 01/26/20 01/26/20 01/26/20 05:40 05:40 05:40 WBC 16.4 H RBC Hgb Hct MCV MCH 26 L RDW 12.9 L Lymph % (Auto) Lymph # Seg Neutrophils % Seg Neuts % (Manual) 90.0 H Lymphocytes % (Manual) 1.0 L Nucleated RBC % 1.0 H Seg Neutrophils # Seg Neutrophils # Man 14.8 H Lymphocytes # (Manual) 0.2 L PT INR D-Dimer 2624.11 H ABG pH ABG pO2 ABG HCO3 ABG O2 Saturation ABG Base Excess ABG Hemoglobin Oxyhemoglobin Sodium 135 L Potassium 2.7 L* Chloride Carbon Dioxide 21 L BUN Creatinine Glucose 132 H POC Glucose Hemoglobin A1c Lactic Acid Calcium 8.0 L Magnesium Ferritin AST ALT Alkaline Phosphatase Lactate Dehydrogenase C-Reactive Protein Total Protein Albumin Vancomycin Trough Random Vancomycin Miscellaneous Test 01/26/20 01/26/20 01/26/20 05:40 05:40 08:58 WBC RBC Hgb Hct MCV MCH RDW Lymph % (Auto) Lymph # Seg Neutrophils % Seg Neuts % (Manual) Lymphocytes % (Manual) Nucleated RBC % Seg Neutrophils # Seg Neutrophils # Man Lymphocytes # (Manual) PT INR D-Dimer ABG pH ABG pO2 ABG HCO3 ABG O2 Saturation ABG Base Excess ABG Hemoglobin Oxyhemoglobin Sodium Potassium Chloride Carbon Dioxide BUN Creatinine Glucose POC Glucose 131 H Hemoglobin A1c Lactic Acid Calcium Magnesium Ferritin 2758.0 H AST ALT Alkaline Phosphatase Lactate Dehydrogenase C-Reactive Protein 26.90 H Total Protein Albumin Vancomycin Trough Random Vancomycin Miscellaneous Test 01/26/20 01/26/20 01/26/20 13:00 16:30 21:22 WBC RBC Hgb Hct MCV MCH RDW Lymph % (Auto) Lymph # Seg Neutrophils % Seg Neuts % (Manual) Lymphocytes % (Manual) Nucleated RBC % Seg Neutrophils # Seg Neutrophils # Man Lymphocytes # (Manual) PT INR D-Dimer ABG pH ABG pO2 ABG HCO3 ABG O2 Saturation ABG Base Excess ABG Hemoglobin Oxyhemoglobin Sodium Potassium Chloride Carbon Dioxide BUN Creatinine Glucose POC Glucose 136 H 146 H 139 H Hemoglobin A1c Lactic Acid Calcium Magnesium Ferritin AST ALT Alkaline Phosphatase Lactate Dehydrogenase C-Reactive Protein Total Protein Albumin Vancomycin Trough Random Vancomycin Miscellaneous Test 01/27/20 01/27/20 01/27/20 05:14 07:37 12:05 WBC RBC Hgb Hct MCV MCH RDW Lymph % (Auto) Lymph # Seg Neutrophils % Seg Neuts % (Manual) Lymphocytes % (Manual) Nucleated RBC % Seg Neutrophils # Seg Neutrophils # Man Lymphocytes # (Manual) PT INR D-Dimer ABG pH ABG pO2 ABG HCO3 ABG O2 Saturation ABG Base Excess ABG Hemoglobin Oxyhemoglobin Sodium 135 L Potassium 3.4 L D Chloride Carbon Dioxide 17 L BUN 24 H Creatinine 1.4 H D Glucose 143 H POC Glucose 133 H 141 H Hemoglobin A1c Lactic Acid Calcium 7.6 L Magnesium Ferritin AST ALT Alkaline Phosphatase Lactate Dehydrogenase C-Reactive Protein Total Protein Albumin Vancomycin Trough Random Vancomycin Miscellaneous Test 01/27/20 01/27/20 01/27/20 17:37 22:14 23:53 WBC RBC Hgb Hct MCV MCH RDW Lymph % (Auto) Lymph # Seg Neutrophils % Seg Neuts % (Manual) Lymphocytes % (Manual) Nucleated RBC % Seg Neutrophils # Seg Neutrophils # Man Lymphocytes # (Manual) PT INR D-Dimer 2675.43 H ABG pH ABG pO2 ABG HCO3 ABG O2 Saturation ABG Base Excess ABG Hemoglobin Oxyhemoglobin Sodium Potassium Chloride Carbon Dioxide BUN Creatinine Glucose POC Glucose 153 H 124 H Hemoglobin A1c Lactic Acid Calcium Magnesium Ferritin AST ALT Alkaline Phosphatase Lactate Dehydrogenase C-Reactive Protein Total Protein Albumin Vancomycin Trough Random Vancomycin Miscellaneous Test 01/27/20 01/27/20 01/28/20 23:53 23:53 08:36 WBC RBC Hgb Hct MCV MCH RDW Lymph % (Auto) Lymph # Seg Neutrophils % Seg Neuts % (Manual) Lymphocytes % (Manual) Nucleated RBC % Seg Neutrophils # Seg Neutrophils # Man Lymphocytes # (Manual) PT INR D-Dimer ABG pH ABG pO2 ABG HCO3 ABG O2 Saturation ABG Base Excess ABG Hemoglobin Oxyhemoglobin Sodium Potassium Chloride Carbon Dioxide BUN Creatinine Glucose POC Glucose 165 H Hemoglobin A1c Lactic Acid Calcium Magnesium Ferritin 3523.0 H AST ALT Alkaline Phosphatase Lactate Dehydrogenase 1132 H C-Reactive Protein 15.60 H Total Protein Albumin Vancomycin Trough Random Vancomycin Miscellaneous Test 01/28/20 01/28/20 01/28/20 10:00 10:00 10:00 WBC RBC Hgb Hct MCV MCH RDW Lymph % (Auto) Lymph # Seg Neutrophils % Seg Neuts % (Manual) Lymphocytes % (Manual) Nucleated RBC % Seg Neutrophils # Seg Neutrophils # Man Lymphocytes # (Manual) PT INR D-Dimer ABG pH ABG pO2 ABG HCO3 ABG O2 Saturation ABG Base Excess ABG Hemoglobin Oxyhemoglobin Sodium 131 L Potassium 3.5 L Chloride Carbon Dioxide 16 L BUN 51 H Creatinine 3.5 H D Glucose 180 H POC Glucose Hemoglobin A1c Lactic Acid Calcium 7.5 L Magnesium Ferritin AST ALT Alkaline Phosphatase Lactate Dehydrogenase C-Reactive Protein Total Protein Albumin Vancomycin Trough Random Vancomycin 65.8 H Miscellaneous Test Flexitest 1 H 01/28/20 01/28/20 01/28/20 12:42 17:27 22:06 WBC RBC Hgb Hct MCV MCH RDW Lymph % (Auto) Lymph # Seg Neutrophils % Seg Neuts % (Manual) Lymphocytes % (Manual) Nucleated RBC % Seg Neutrophils # Seg Neutrophils # Man Lymphocytes # (Manual) PT INR D-Dimer ABG pH ABG pO2 ABG HCO3 ABG O2 Saturation ABG Base Excess ABG Hemoglobin Oxyhemoglobin Sodium Potassium Chloride Carbon Dioxide BUN Creatinine Glucose POC Glucose 188 H 161 H 158 H Hemoglobin A1c Lactic Acid Calcium Magnesium Ferritin AST ALT Alkaline Phosphatase Lactate Dehydrogenase C-Reactive Protein Total Protein Albumin Vancomycin Trough Random Vancomycin Miscellaneous Test 01/29/20 01/29/20 01/29/20 07:29 07:29 08:20 WBC 17.0 H RBC Hgb 9.6 L Hct 29.5 L MCV MCH 26 L RDW Lymph % (Auto) Lymph # Seg Neutrophils % Seg Neuts % (Manual) Lymphocytes % (Manual) Nucleated RBC % Seg Neutrophils # Seg Neutrophils # Man Lymphocytes # (Manual) PT INR D-Dimer ABG pH ABG pO2 ABG HCO3 ABG O2 Saturation ABG Base Excess ABG Hemoglobin Oxyhemoglobin Sodium 133 L Potassium Chloride Carbon Dioxide 15 L BUN 69 H Creatinine 4.1 H Glucose 161 H POC Glucose 170 H Hemoglobin A1c Lactic Acid Calcium 7.6 L Magnesium Ferritin AST ALT Alkaline Phosphatase Lactate Dehydrogenase C-Reactive Protein Total Protein Albumin Vancomycin Trough Random Vancomycin Miscellaneous Test 01/29/20 01/29/20 01/29/20 11:54 11:54 11:54 WBC RBC Hgb Hct MCV MCH RDW Lymph % (Auto) Lymph # Seg Neutrophils % Seg Neuts % (Manual) Lymphocytes % (Manual) Nucleated RBC % Seg Neutrophils # Seg Neutrophils # Man Lymphocytes # (Manual) PT INR D-Dimer 1499 H ABG pH ABG pO2 ABG HCO3 ABG O2 Saturation ABG Base Excess ABG Hemoglobin Oxyhemoglobin Sodium Potassium Chloride Carbon Dioxide BUN Creatinine Glucose POC Glucose Hemoglobin A1c Lactic Acid Calcium Magnesium Ferritin > 2000.0 H AST ALT Alkaline Phosphatase Lactate Dehydrogenase 946 H C-Reactive Protein 13.30 H Total Protein Albumin Vancomycin Trough Random Vancomycin Miscellaneous Test 01/29/20 01/29/20 01/29/20 12:55 16:19 22:13 WBC RBC Hgb Hct MCV MCH RDW Lymph % (Auto) Lymph # Seg Neutrophils % Seg Neuts % (Manual) Lymphocytes % (Manual) Nucleated RBC % Seg Neutrophils # Seg Neutrophils # Man Lymphocytes # (Manual) PT INR D-Dimer ABG pH ABG pO2 ABG HCO3 ABG O2 Saturation ABG Base Excess ABG Hemoglobin Oxyhemoglobin Sodium Potassium Chloride Carbon Dioxide BUN Creatinine Glucose POC Glucose 142 H 146 H 142 H Hemoglobin A1c Lactic Acid Calcium Magnesium Ferritin AST ALT Alkaline Phosphatase Lactate Dehydrogenase C-Reactive Protein Total Protein Albumin Vancomycin Trough Random Vancomycin Miscellaneous Test 01/30/20 01/30/20 01/30/20 05:19 05:19 08:04 WBC RBC Hgb Hct MCV MCH RDW Lymph % (Auto) Lymph # Seg Neutrophils % Seg Neuts % (Manual) Lymphocytes % (Manual) Nucleated RBC % Seg Neutrophils # Seg Neutrophils # Man Lymphocytes # (Manual) PT INR D-Dimer ABG pH ABG pO2 ABG HCO3 ABG O2 Saturation ABG Base Excess ABG Hemoglobin Oxyhemoglobin Sodium 134 L Potassium Chloride Carbon Dioxide 14 L BUN 87 H Creatinine 4.4 H Glucose 172 H POC Glucose 153 H Hemoglobin A1c Lactic Acid Calcium 7.6 L Magnesium Ferritin AST 152 H ALT 124 H Alkaline Phosphatase Lactate Dehydrogenase C-Reactive Protein Total Protein 5.5 L Albumin 1.8 L Vancomycin Trough 45.4 H Random Vancomycin Miscellaneous Test 01/30/20 01/30/20 01/30/20 12:21 16:51 22:54 WBC RBC Hgb Hct MCV MCH RDW Lymph % (Auto) Lymph # Seg Neutrophils % Seg Neuts % (Manual) Lymphocytes % (Manual) Nucleated RBC % Seg Neutrophils # Seg Neutrophils # Man Lymphocytes # (Manual) PT INR D-Dimer ABG pH ABG pO2 ABG HCO3 ABG O2 Saturation ABG Base Excess ABG Hemoglobin Oxyhemoglobin Sodium Potassium Chloride Carbon Dioxide BUN Creatinine Glucose POC Glucose 147 H 119 H 129 H Hemoglobin A1c Lactic Acid Calcium Magnesium Ferritin AST ALT Alkaline Phosphatase Lactate Dehydrogenase C-Reactive Protein Total Protein Albumin Vancomycin Trough Random Vancomycin Miscellaneous Test 01/31/20 01/31/20 01/31/20 03:49 03:49 03:49 WBC RBC Hgb Hct MCV MCH RDW Lymph % (Auto) Lymph # Seg Neutrophils % Seg Neuts % (Manual) Lymphocytes % (Manual) Nucleated RBC % Seg Neutrophils # Seg Neutrophils # Man Lymphocytes # (Manual) PT INR D-Dimer 801.37 H ABG pH ABG pO2 ABG HCO3 ABG O2 Saturation ABG Base Excess ABG Hemoglobin Oxyhemoglobin Sodium 134 L Potassium Chloride Carbon Dioxide 13 L BUN 97 H Creatinine 4.8 H Glucose 123 H POC Glucose Hemoglobin A1c Lactic Acid Calcium 7.6 L Magnesium Ferritin 3101.0 H AST 112 H ALT 112 H Alkaline Phosphatase 145 H Lactate Dehydrogenase 896 H C-Reactive Protein 11.10 H Total Protein 5.5 L Albumin 1.7 L Vancomycin Trough Random Vancomycin Miscellaneous Test 01/31/20 01/31/20 01/31/20 03:49 08:00 11:48 WBC 16.1 H RBC Hgb Hct MCV MCH 25 L RDW Lymph % (Auto) Lymph # Seg Neutrophils % Seg Neuts % (Manual) Lymphocytes % (Manual) Nucleated RBC % Seg Neutrophils # Seg Neutrophils # Man Lymphocytes # (Manual) PT INR D-Dimer ABG pH ABG pO2 ABG HCO3 ABG O2 Saturation ABG Base Excess ABG Hemoglobin Oxyhemoglobin Sodium Potassium Chloride Carbon Dioxide BUN Creatinine Glucose POC Glucose 133 H 136 H Hemoglobin A1c Lactic Acid Calcium Magnesium Ferritin AST ALT Alkaline Phosphatase Lactate Dehydrogenase C-Reactive Protein Total Protein Albumin Vancomycin Trough Random Vancomycin Miscellaneous Test 01/31/20 01/31/20 01/31/20 16:14 21:37 22:35 WBC RBC Hgb Hct MCV MCH RDW Lymph % (Auto) Lymph # Seg Neutrophils % Seg Neuts % (Manual) Lymphocytes % (Manual) Nucleated RBC % Seg Neutrophils # Seg Neutrophils # Man Lymphocytes # (Manual) PT INR D-Dimer ABG pH 7.226 L ABG pO2 77.9 L ABG HCO3 15.2 L ABG O2 Saturation 93.5 L ABG Base Excess -11.6 L ABG Hemoglobin Oxyhemoglobin 91.5 L Sodium Potassium Chloride Carbon Dioxide BUN Creatinine Glucose POC Glucose 151 H 179 H Hemoglobin A1c Lactic Acid Calcium Magnesium Ferritin AST ALT Alkaline Phosphatase Lactate Dehydrogenase C-Reactive Protein Total Protein Albumin Vancomycin Trough Random Vancomycin Miscellaneous Test 02/01/20 02/01/20 02/01/20 03:49 03:49 04:30 WBC 19.3 H RBC 3.53 L Hgb 9.0 L Hct 28.1 L MCV MCH 26 L RDW Lymph % (Auto) Lymph # Seg Neutrophils % Seg Neuts % (Manual) Lymphocytes % (Manual) Nucleated RBC % Seg Neutrophils # Seg Neutrophils # Man Lymphocytes # (Manual) PT INR D-Dimer ABG pH 7.290 L ABG pO2 120.0 H ABG HCO3 14.2 L ABG O2 Saturation ABG Base Excess -11.2 L ABG Hemoglobin 9.3 L Oxyhemoglobin Sodium 135 L Potassium Chloride Carbon Dioxide 13 L BUN 79 H Creatinine 4.1 H Glucose 198 H POC Glucose Hemoglobin A1c Lactic Acid Calcium 7.0 L Magnesium Ferritin AST ALT Alkaline Phosphatase Lactate Dehydrogenase C-Reactive Protein Total Protein Albumin Vancomycin Trough Random Vancomycin Miscellaneous Test 02/01/20 02/01/20 02/02/20 08:13 11:29 00:05 WBC RBC Hgb Hct MCV MCH RDW Lymph % (Auto) Lymph # Seg Neutrophils % Seg Neuts % (Manual) Lymphocytes % (Manual) Nucleated RBC % Seg Neutrophils # Seg Neutrophils # Man Lymphocytes # (Manual) PT INR D-Dimer ABG pH ABG pO2 ABG HCO3 ABG O2 Saturation ABG Base Excess ABG Hemoglobin Oxyhemoglobin Sodium Potassium Chloride Carbon Dioxide BUN Creatinine Glucose POC Glucose 153 H 181 H 214 H Hemoglobin A1c Lactic Acid Calcium Magnesium Ferritin AST ALT Alkaline Phosphatase Lactate Dehydrogenase C-Reactive Protein Total Protein Albumin Vancomycin Trough Random Vancomycin Miscellaneous Test 02/02/20 02/02/20 02/02/20 04:17 04:30 04:30 WBC RBC Hgb Hct MCV MCH RDW Lymph % (Auto) Lymph # Seg Neutrophils % Seg Neuts % (Manual) Lymphocytes % (Manual) Nucleated RBC % Seg Neutrophils # Seg Neutrophils # Man Lymphocytes # (Manual) PT INR D-Dimer 795.93 H ABG pH ABG pO2 ABG HCO3 ABG O2 Saturation ABG Base Excess -3.0 L ABG Hemoglobin 8.5 L Oxyhemoglobin Sodium Potassium Chloride Carbon Dioxide BUN Creatinine Glucose POC Glucose Hemoglobin A1c Lactic Acid Calcium Magnesium Ferritin 1978.0 H AST ALT Alkaline Phosphatase Lactate Dehydrogenase C-Reactive Protein Total Protein Albumin Vancomycin Trough Random Vancomycin Miscellaneous Test 02/02/20 02/02/20 02/02/20 04:30 04:30 05:34 WBC 17.3 H RBC 3.24 L Hgb 8.4 L Hct 24.9 L MCV 77 L MCH 26 L RDW Lymph % (Auto) Lymph # Seg Neutrophils % Seg Neuts % (Manual) Lymphocytes % (Manual) Nucleated RBC % Seg Neutrophils # Seg Neutrophils # Man Lymphocytes # (Manual) PT INR D-Dimer ABG pH ABG pO2 ABG HCO3 ABG O2 Saturation ABG Base Excess ABG Hemoglobin Oxyhemoglobin Sodium Potassium Chloride Carbon Dioxide 17 L BUN 61 H Creatinine 4.1 H Glucose 244 H POC Glucose 274 H Hemoglobin A1c Lactic Acid Calcium 7.2 L Magnesium Ferritin AST ALT Alkaline Phosphatase Lactate Dehydrogenase 841 H C-Reactive Protein 11.50 H Total Protein Albumin Vancomycin Trough Random Vancomycin Miscellaneous Test 02/02/20 02/02/20 02/02/20 12:26 18:06 23:37 WBC RBC Hgb Hct MCV MCH RDW Lymph % (Auto) Lymph # Seg Neutrophils % Seg Neuts % (Manual) Lymphocytes % (Manual) Nucleated RBC % Seg Neutrophils # Seg Neutrophils # Man Lymphocytes # (Manual) PT INR D-Dimer ABG pH ABG pO2 ABG HCO3 ABG O2 Saturation ABG Base Excess ABG Hemoglobin Oxyhemoglobin Sodium Potassium Chloride Carbon Dioxide BUN Creatinine Glucose POC Glucose 254 H 285 H 239 H Hemoglobin A1c Lactic Acid Calcium Magnesium Ferritin AST ALT Alkaline Phosphatase Lactate Dehydrogenase C-Reactive Protein Total Protein Albumin Vancomycin Trough Random Vancomycin Miscellaneous Test 02/03/20 02/03/20 02/03/20 04:40 04:56 10:41 WBC RBC Hgb Hct MCV MCH RDW Lymph % (Auto) Lymph # Seg Neutrophils % Seg Neuts % (Manual) Lymphocytes % (Manual) Nucleated RBC % Seg Neutrophils # Seg Neutrophils # Man Lymphocytes # (Manual) PT INR D-Dimer ABG pH 7.520 H ABG pO2 73.8 L 92.5 H ABG HCO3 ABG O2 Saturation ABG Base Excess ABG Hemoglobin 8.6 L 7.9 L Oxyhemoglobin Sodium Potassium Chloride Carbon Dioxide BUN Creatinine Glucose POC Glucose 227 H Hemoglobin A1c Lactic Acid Calcium Magnesium Ferritin AST ALT Alkaline Phosphatase Lactate Dehydrogenase C-Reactive Protein Total Protein Albumin Vancomycin Trough Random Vancomycin Miscellaneous Test 02/03/20 02/03/20 02/03/20 12:09 17:23 23:41 WBC RBC Hgb Hct MCV MCH RDW Lymph % (Auto) Lymph # Seg Neutrophils % Seg Neuts % (Manual) Lymphocytes % (Manual) Nucleated RBC % Seg Neutrophils # Seg Neutrophils # Man Lymphocytes # (Manual) PT INR D-Dimer ABG pH ABG pO2 ABG HCO3 ABG O2 Saturation ABG Base Excess ABG Hemoglobin Oxyhemoglobin Sodium Potassium Chloride Carbon Dioxide BUN Creatinine Glucose POC Glucose 268 H 255 H 239 H Hemoglobin A1c Lactic Acid Calcium Magnesium Ferritin AST ALT Alkaline Phosphatase Lactate Dehydrogenase C-Reactive Protein Total Protein Albumin Vancomycin Trough Random Vancomycin Miscellaneous Test 02/04/20 02/04/20 02/04/20 04:31 04:42 04:42 WBC RBC Hgb Hct MCV MCH RDW Lymph % (Auto) Lymph # Seg Neutrophils % Seg Neuts % (Manual) Lymphocytes % (Manual) Nucleated RBC % Seg Neutrophils # Seg Neutrophils # Man Lymphocytes # (Manual) PT INR D-Dimer 694.19 H ABG pH ABG pO2 ABG HCO3 ABG O2 Saturation ABG Base Excess ABG Hemoglobin Oxyhemoglobin Sodium Potassium Chloride Carbon Dioxide BUN Creatinine Glucose POC Glucose 216 H Hemoglobin A1c Lactic Acid Calcium Magnesium Ferritin 1660.0 H AST ALT Alkaline Phosphatase Lactate Dehydrogenase C-Reactive Protein Total Protein Albumin Vancomycin Trough Random Vancomycin Miscellaneous Test 02/04/20 02/04/20 02/04/20 04:42 04:42 Unknown WBC 13.7 H RBC 2.92 L Hgb 7.4 L Hct 23.0 L MCV MCH 25 L RDW Lymph % (Auto) Lymph # Seg Neutrophils % Seg Neuts % (Manual) Lymphocytes % (Manual) Nucleated RBC % Seg Neutrophils # Seg Neutrophils # Man Lymphocytes # (Manual) PT INR D-Dimer ABG pH 7.484 H ABG pO2 104.8 H ABG HCO3 ABG O2 Saturation ABG Base Excess ABG Hemoglobin 9.5 L Oxyhemoglobin Sodium Potassium Chloride Carbon Dioxide 17 L BUN 80 H Creatinine 5.8 H Glucose 209 H POC Glucose Hemoglobin A1c Lactic Acid Calcium 8.3 L D Magnesium Ferritin AST ALT Alkaline Phosphatase Lactate Dehydrogenase 972 H C-Reactive Protein 6.20 H Total Protein Albumin Vancomycin Trough Random Vancomycin Miscellaneous Test Allied health notes reviewed: nursing
[2020-02-04] MEDS: INSULIN NPH/REGULAR 70/30 INJ SUB-Q SCH ×2 (10:37→18:54)
[2020-02-04] MEDS: FAMOTIDINE 20 MG TAB PO SCH (10:38)
[2020-02-04] MEDS: NYSTATIN POWDER 15 GM TP SCH ×2 (10:38→21:42)
--- NOTE | 2020-02-04 11:20 | Progress Note ---
Assessment and Plan - Patient Problems (1) Acute kidney injury (CIPRIANO) with acute tubular necrosis (ATN) Current Visit: Yes Status: Acute Plan to address problem: No signs of renal recovery noted at present time. Will plan to maintain on MWF inpatient HD schedule, and assess daily for need of extra isolated UF sessions in order to optimize her volume control. (2) Acute respiratory failure with hypoxia Current Visit: Yes Status: Acute Plan to address problem: Remains intubated. Management per pulmonology. (3) Pneumonia due to COVID-19 virus Current Visit: Yes Status: Acute Plan to address problem: Management per ID recommendations. (4) Type 2 diabetes mellitus with hyperglycemia Current Visit: Yes Status: Acute Plan to address problem: DM management per primary attending Subjective Date of service: 02/04/20 Principal diagnosis: Severe Sepsis; LEV PNA; DM II; Morbid obesity; R/O COVID-19 infection Interval history: No acute changes from a renal standpoint. No signs of renal recovery at present time. Will plan for HD today. Objective - Vital Signs Vital signs: Vital Signs - 12hr 02/03/20 02/03/20 02/03/20 23:30 23:46 23:50 Temperature 98.8 F Pulse Rate 70 72 Pulse Rate [ 83 From Monitor] Respiratory 30 H 30 H 30 H Rate Blood Pressure 139/76 131/72 O2 Sat by Pulse 100 100 100 Oximetry 02/04/20 02/04/20 02/04/20 00:00 00:16 00:30 Temperature Pulse Rate 72 74 72 Pulse Rate [ From Monitor] Respiratory 30 H 30 H 30 H Rate Blood Pressure 131/69 133/72 136/73 O2 Sat by Pulse 100 100 100 Oximetry 02/04/20 02/04/20 02/04/20 00:46 00:55 01:00 Temperature Pulse Rate 71 72 71 Pulse Rate [ From Monitor] Respiratory 30 H 30 H Rate Blood Pressure 134/72 138/69 130/71 O2 Sat by Pulse 100 100 100 Oximetry 02/04/20 02/04/20 02/04/20 01:16 01:25 01:30 Temperature Pulse Rate 71 71 72 Pulse Rate [ 83 From Monitor] Respiratory 30 H 30 H 30 H Rate Blood Pressure 126/70 123/67 O2 Sat by Pulse 100 100 100 Oximetry 02/04/20 02/04/20 02/04/20 01:46 02:00 02:16 Temperature Pulse Rate 71 83 70 Pulse Rate [ From Monitor] Respiratory 30 H 30 H 30 H Rate Blood Pressure 125/68 148/76 135/67 O2 Sat by Pulse 100 100 100 Oximetry 02/04/20 02/04/20 02/04/20 02:30 02:46 03:00 Temperature Pulse Rate 70 69 67 Pulse Rate [ From Monitor] Respiratory 30 H 30 H 30 H Rate Blood Pressure 129/69 127/66 129/66 O2 Sat by Pulse 100 100 100 Oximetry 02/04/20 02/04/20 02/04/20 03:16 03:30 03:46 Temperature Pulse Rate 71 71 77 Pulse Rate [ From Monitor] Respiratory 30 H 30 H 30 H Rate Blood Pressure 124/65 123/66 133/68 O2 Sat by Pulse 100 100 100 Oximetry 02/04/20 02/04/20 02/04/20 04:00 04:16 04:30 Temperature 98.6 F Pulse Rate 75 69 67 Pulse Rate [ From Monitor] Respiratory 30 H 30 H 30 H Rate Blood Pressure 147/75 147/75 129/65 O2 Sat by Pulse 100 100 100 Oximetry 02/04/20 02/04/20 02/04/20 04:46 05:00 05:01 Temperature Pulse Rate 72 71 78 Pulse Rate [ From Monitor] Respiratory 30 H 30 H Rate Blood Pressure 131/71 129/69 135/72 O2 Sat by Pulse 100 99 100 Oximetry 02/04/20 02/04/20 02/04/20 05:15 05:16 05:30 Temperature Pulse Rate 68 68 67 Pulse Rate [ 83 From Monitor] Respiratory 30 H 30 H 30 H Rate Blood Pressure 135/75 134/71 O2 Sat by Pulse 100 100 100 Oximetry 02/04/20 02/04/20 02/04/20 05:46 06:00 06:16 Temperature Pulse Rate 67 69 72 Pulse Rate [ From Monitor] Respiratory 30 H 30 H 30 H Rate Blood Pressure 130/68 141/72 132/68 O2 Sat by Pulse 100 100 100 Oximetry 02/04/20 02/04/20 02/04/20 06:30 06:46 07:00 Temperature Pulse Rate 69 69 71 Pulse Rate [ From Monitor] Respiratory 30 H 30 H 30 H Rate Blood Pressure 132/68 132/72 132/72 O2 Sat by Pulse 100 100 100 Oximetry 02/04/20 02/04/2002/03/20 07:16 07:30 07:46 Temperature Pulse Rate 73 68 69 Pulse Rate [ From Monitor] Respiratory 30 H 30 H 30 H Rate Blood Pressure 127/67 131/74 140/73 O2 Sat by Pulse 100 100 100 Oximetry 02/04/20 02/04/20 02/04/20 08:00 08:16 08:30 Temperature 98.8 F Pulse Rate 92 H 70 89 Pulse Rate [ 91 H From Monitor] Respiratory 21 30 H 11 L Rate Blood Pressure 138/73 136/68 134/70 O2 Sat by Pulse 99 100 100 Oximetry 02/04/20 02/04/20 02/04/20 08:46 09:00 09:16 Temperature Pulse Rate 88 92 H 88 Pulse Rate [ From Monitor] Respiratory 18 19 16 Rate Blood Pressure 156/75 150/73 158/75 O2 Sat by Pulse 100 100 100 Oximetry 02/04/20 02/04/20 02/04/20 09:30 09:46 10:00 Temperature Pulse Rate 86 94 H 100 H Pulse Rate [ From Monitor] Respiratory 20 21 19 Rate Blood Pressure 157/68 145/70 148/69 O2 Sat by Pulse 100 100 99 Oximetry 02/04/20 02/04/20 02/04/20 10:16 10:30 10:46 Temperature Pulse Rate 86 91 H 86 Pulse Rate [ From Monitor] Respiratory 21 22 19 Rate Blood Pressure 133/66 131/68 141/69 O2 Sat by Pulse 99 99 99 Oximetry 02/04/20 11:00 Temperature Pulse Rate 88 Pulse Rate [ From Monitor] Respiratory 20 Rate Blood Pressure 148/69 O2 Sat by Pulse 100 Oximetry - General Appearance General appearance: obese, intubated EENT: ATNC Neck: no JVD Respiratory: Present: Decreased Breath Sounds Cardiology: regular, S1S2 Gastrointestinal: normal Integumentary: no rash Musculoskeletal: deferred - Lab 02/04/20 04:42 02/04/20 04:42 Most recent lab results ABG pH 7.484 pH Units (7.350-7.450) H 02/04/20 Unknown ABG pCO2 28.8 mm Hg 02/04/20 Unknown ABG pO2 104.8 mm Hg (80.0-90.0) H 02/04/20 Unknown ABG HCO3 21.2 mmol/L (20.0-26.0) 02/04/20 Unknown ABG O2 Saturation 98.1 % (95.0-99.0) 02/04/20 Unknown Calcium 8.3 mg/dL (8.4-10.2) L D 02/04/20 04:42 Magnesium 1.50 mg/dL (1.7-2.3) L 01/17/20 22:58 - Allied health notes Allied health notes reviewed: nursing Medications & Allergies - Medications Allergies/Adverse Reactions: Allergies No Known Allergies Allergy (Verified 09/12/18 00:37) Home Medications: Home Medications Medication Instructions Recorded Confirmed Last Taken Type glipiZIDE-Metformin 5-500 mg 500 mg PO BID 01/17/20 01/17/20 Unknown History Active Medications: Generic Name Dose Route Start Last Admin Trade Name Freq PRN Reason Stop Dose Admin Acetaminophen 650 mg 01/17/20 23:06 01/29/20 22:43 Tylenol PO 650 mg Q4H PRN Administration Pain MILD(1-3)/Fever >100.5/COLLINS Lipase/Protease/Amylase 1 each 02/01/20 09:[address] 10,500 Unit FEEDTUBE PRN PRN For Clogged Feeding Tube Dextrose 0 ml 01/17/20 23:06 D50w (25gm) Syringe IV Q30MIN PRN Hypoglycemia Protocol Famotidine 20 mg 01/24/20 10:00 02/04/20 10:38 Pepcid PO 20 mg QDAY COBY Administration Fentanyl 50 mcg 01/31/20 21:48 Sublimaze IV Q10MIN PRN ANALGESIA Heparin Sodium (Porcine) 5,000 unit 01/18/20 06:00 02/04/20 05:04 Heparin SUB-Q 5,000 unit Q8HR COBY Administration Hydralazine HCl 10 mg 01/18/20 22:14 01/22/20 18:43 Apresoline IV 10 mg Q6H PRN Administration Hypertension Hydrophilic Ointment 1 applic 01/31/20 21:48 Vaseline Lip Therapy TP Q2HR PRN Dry Lips Fentanyl Citrate 2,000 mcg in 100 mls @ 7.395 mls/hr 01/31/20 22:00 02/04/20 03:46 Fentanyl Drip Premix IV 1 mcg/kg/hr TITR COBY 7.395 mls/hr Administration Protocol 1 MCG/KG/HR Norepinephrine 4 mg in 250 mls @ 7.5 mls/hr 01/31/20 23:45 02/02/20 20:15 Levophed Drip 4 Mg/Ns 250 Ml IV 0 mcg/min TITR COBY 0 mls/hr Titration Protocol 2 MCG/MIN Sodium Chloride 100 mls @ 999 mls/hr 02/01/20 10:26 Nacl 0.9% IV KIRSTEN PRN Hypotension Piperacillin Sod/Tazobactam Sod 2.25 gm in 50 mls @ 100 mls/hr 02/01/20 14:00 02/04/20 05:06 Zosyn/Ns 2.25 Gm/50ml IV 02/07/20 23:59 100 mls/hr Q8HR COBY Administration Protocol Sodium Chloride 100 mls @ 999 mls/hr 02/04/20 09:10 Nacl 0.9% IV KIRSTEN PRN Hypotension Insulin Human Isoph/Insulin Regular 20 unit 02/04/20 17:00 Humulin 70/30 SUB-Q BIDDIAB COBY Insulin Human Regular 0 units 02/01/20 12:00 02/04/20 05:07 Humulin R SUB-Q 3 units Q6HR [facility] Administration Protocol Insulin Human Regular 5 units 02/04/20 12:00 Humulin R SUB-Q Q6HR COBY Magnesium Hydroxide 30 ml 01/17/20 23:06 Milk Of Magnesia PO Q4H PRN Constipation Morphine Sulfate 2 mg 01/17/20 23:06 01/30/20 20:39 Morphine IV 2 mg Q4H PRN Administration Pain, Moderate (4-6) Multi-Ingred Cream/Lotion/Oil/Oint 1 applic 01/31/20 21:48 Artificial Tears Ophth Oint OU Q4HR PRN Dry Eye(s) Nystatin 1 applic 01/29/20 14:00 02/04/20 10:38 Nystop TP 1 applic BID COBY Administration Ondansetron HCl 4 mg 01/17/20 23:06 01/30/20 20:47 Zofran IV 4 mg Q8H PRN Administration Nausea And Vomiting Simple Syrup 15 ml 02/01/20 09:53 Simple Syrup FEEDTUBE PRN PRN Hypoglycemia Simple Syrup 30 ml 02/01/20 09:53 Simple Syrup FEEDTUBE PRN PRN Hypoglycemia Sodium Bicarbonate 325 mg 02/01/20 09:53 Sodium Bicarbonate FEEDTUBE PRN PRN For Clogged Feeding Tube Sodium Chloride 10 ml 01/18/20 10:00 02/04/20 10:37 Sodium Chloride Flush Syringe 10 Ml IV 10 ml BID CBOY Administration Sodium Chloride 10 ml 01/17/20 23:06 02/04/20 05:07 Sodium Chloride Flush Syringe 10 Ml IV 10 ml PRN PRN Administration LINE FLUSH
--- NOTE | 2020-02-04 16:38 | Progress Note ---
Assessment and Plan Cultures: Blood culture 01/17/2020 no growth to date Urine culture 01/17/2020 no growth to date Sputum normal resp dulce OR culture no growth today A/P: 29-year-old female past medical history diabetes admitted with acute sepsis secondary to right foot wound versus pneumonia. #Acute sepsis: fever resolved, now leukoctosis improving. Secondary to her left tight abscess versus pneumonia. #Severe COVID-19 pneumonia: Coronavirus testing has returned positive. Very high inflammatory markers - ferritin [id number]. Ferritin improving. Risk for cytokine storm secondary to COVID and high risk for ARDS. IL-6 elevated 105. #Acute respiratory failure: intubated now on CPAP #Left thigh abscess: surgery on board #Right foot wound: Will need MRI when more stable to rule out osteomyelitis of the toe. Continue empiric vancomycin and cefepime for now. #Diabetes: tight glycemic control for best outcomes. #CIPRIANO: renally adjust abx, worsening on HD #Morbid obesity Recs: Continue zosyn renally adjusted Day 4 7 Continuos pulse oximetry ContinueCOVID isolationprecautions per [facility] protocol S/p plaquenil Day May need home O2 supplementation will follow Janett Duffy MD Infectious Diseases [employer] [facility] ([facility]) M [phone] O [phone] Subjective Date of service: 02/04/20 Principal diagnosis: Severe Sepsis; LEV PNA; DM II; Morbid obesity; R/O COVID-19 infection Interval history: Remains intubated no fever Objective - Exam Narrative Exam: Constitutional: sedated intuabted Oral: limited due to lack opf PPE Cardiovascular: Respiratory: GI: Soft, obese Musculoskeletal: Right hallux wound, left foot callus. Left thigh large induration, skin sloughing Skin: Hem/Lymphatic: Psych: sedated Neurological: sedated - Constitutional Vitals: Vital Signs Temp Pulse Resp BP Pulse Ox 97.8 F 80 19 121/69 100 02/04/20 15:31 02/04/20 16:30 02/04/20 15:31 02/04/20 16:30 02/04/20 16:26 Temperature -Last 24 Hours Temperature 97.8 F Temperature 97.8 F Temperature 98.8 F Temperature 98.6 F Temperature 98.8 F Temperature 98.9 F - Labs CBC & Chem 7: 02/04/20 04:42 02/04/20 04:42 Labs: Abnormal lab results 02/03/20 02/03/20 02/04/20 Range/Units 17:23 23:41 04:31 WBC (4.5-11.0) K/mm3 RBC (3.65-5.03) M/mm3 Hgb (10.1-14.3) gm/dl Hct (30.3-42.9) % MCH (28-32) pg D-Dimer (0-234) ng/mlDDU ABG pH (7.350-7.450) pH Units ABG pO2 (80.0-90.0) mm Hg ABG Hemoglobin (12.0-16.0) gm/dl Carbon Dioxide (22-30) mmol/L BUN (7-17) mg/dL Creatinine (0.7-1.2) mg/dL Glucose (65-100) mg/dL POC Glucose 255 H 239 H 216 H (70-105) Calcium (8.4-10.2) mg/dL Ferritin (13.0-400.0) ng/mL Lactate Dehydrogenase (91-180) units/L C-Reactive Protein (0.00-1.30) mg/dL 02/04/20 02/04/20 02/04/20 Range/Units 04:42 04:42 04:42 WBC (4.5-11.0) K/mm3 RBC (3.65-5.03) M/mm3 Hgb (10.1-14.3) gm/dl Hct (30.3-42.9) % MCH (28-32) pg D-Dimer 694.19 H (0-234) ng/mlDDU ABG pH (7.350-7.450) pH Units ABG pO2 (80.0-90.0) mm Hg ABG Hemoglobin (12.0-16.0) gm/dl Carbon Dioxide 17 L (22-30) mmol/L BUN 80 H (7-17) mg/dL Creatinine 5.8 H (0.7-1.2) mg/dL Glucose 209 H (65-100) mg/dL POC Glucose (70-105) Calcium 8.3 L D (8.4-10.2) mg/dL Ferritin 1660.0 H (13.0-400.0) ng/mL Lactate Dehydrogenase 972 H (91-180) units/L C-Reactive Protein 6.20 H (0.00-1.30) mg/dL 02/04/20 02/04/20 02/04/20 Range/Units 04:42 12:03 Unknown WBC 13.7 H (4.5-11.0) K/mm3 RBC 2.92 L (3.65-5.03) M/mm3 Hgb 7.4 L (10.1-14.3) gm/dl Hct 23.0 L (30.3-42.9) % MCH 25 L (28-32) pg D-Dimer (0-234) ng/mlDDU ABG pH 7.484 H (7.350-7.450) pH Units ABG pO2 104.8 H (80.0-90.0) mm Hg ABG Hemoglobin 9.5 L (12.0-16.0) gm/dl Carbon Dioxide (22-30) mmol/L BUN (7-17) mg/dL Creatinine (0.7-1.2) mg/dL Glucose (65-100) mg/dL POC Glucose 248 H (70-105) Calcium (8.4-10.2) mg/dL Ferritin (13.0-400.0) ng/mL Lactate Dehydrogenase (91-180) units/L C-Reactive Protein (0.00-1.30) mg/dL
--- NOTE | 2020-02-04 17:37 | Progress Note ---
Assessment and Plan Assessment and plan: 29-year-old female with known history of diabetes mellitus presenting to the emergency room today complaining of pain on the right big toe. Patient had an injury to the right big toe about 2 to 3 weeks ago when an object fell on the toe. She has gone to an urgent care facility where she was given some antibiotics namely Bactrim to the right big toe wound. She has noticed that the wound has not improved and she has been having progressive pain. She denies any fever or chills, no nausea vomiting, no cough or shortness of breath, no chest pain. She denies any sick contacts and no recent travel. Work-up in the emergency room reveals hyperglycemia chest x-ray also reveals a left-sided pneumonia with accompanying sepsis. Patient started on empiric IV antibiotics. She is also given a tetanus vacc ination. Per the ED doctor the wound itself did not appear overtly superinfected. Although however the patient was tachycardic and febrile and as part of sepsis work-up as her labs indicated hyperglycemia with pseudohyponatremia, minimal anion gap acidosis, and a left-sided pulmonary infiltrate. Given the magnitude of her abnormal vital signs, concomitant diabetes, metabolic derangement, daily maciel meets criteria for hospitalization. We will treat her empirically for community-acquired pneumonia. She does not endorse any sick contacts or exposures to individuals with coronavirus. Nevertheless her test was sent and patient returned COVID positive. January 24 the patient results for COVID 19 came back positive. 01/28: In addition to treatment as noted below patient was noted to have indura cruz area in the left thigh, Concerning for abscess development. Will obtain CT of the lower extremity 01/29: Patient noted hypotensive. She is refusing her p.o. week to be placed she sustained a fall overnight while trying to walk to the bathroom. CT of the lower extremity still pending we will proceed with consult to surgeons. We will discontinue all blood pressure medications give a bolus of fluid while mindful of possible developing ARDS. We will also obtain repeated chest x-ray as patient appears more toxic today. 01/31: Patient reintubated about 30 minutes after surgical procedure due to decompensation with hypotension and hypoxemia despite 100% oxygen and CPAP. Patient remains currently on the vent. We will continue dialysis. While oil recovery unit operator assist with managing ventilator. We will continue to adjust blood sugar for better control. Patient is critically ill this has been conveyed to the family prior. 02/01: Mild improvement in inflammatory markers and chest x-ray. Otherwise patient still remains on mechanical ventilation still at high risk for ARDS mitigation processes are in place and plan. Continue aggressive management. She unfortunately still with low-grade intermittent fevers. Despite improvement in WBC. 02/02: Clinically stable wound VAC remains in place and functioning. Trial of CPAP today. Will recheck labs in a.m. inflammatory markers continue to improve ferritin is down to the 1900 range. 02/03: Inflammatory markers appear to be improving. There is some mild trickling down of hemoglobin we will continue to monitor this. Patient continues to tolerate dialysis. COVID 19 induced pneumonia Acute on chronic respiratory failure with postoperative decompensation now requi ring mechanical ventilation Acute metabolic encephalopathy Left thigh abscess status post I&D Multiple Organ Failure Severe Sepsis Diabetic foot wound nonhealing Morbid obesity hypoventilation syndrome Acute kidney injury secondary to vasomotor nephropathy Metabolic Acidosis Hypokalemia-resolved Presumed thigh abscess. Anemia Hyponatremia-resolving Diabetes mellitus with uncontrolled blood sugar Morbid obesity Hypertension monitor closely for septic shock Malnutrition: Decreased p.o. intake Severe Protein calorie ?Bundle Branch block- await EKG Plan -Continue current work-up as dictated by infectious disease doctors will include Plaquenil and zinc combination. -s/p extensive I&D of left thigh abscess with sepsis and showing signs of multis ystem organ insufficiency requiring ventilator support, possible dialysis, and vasopressers. wound vac was placed with wound care nurse. Next vac change scheduled for Tuesday. Continue abx and supportive care. -right-sided common femoral catheter placed for dialysis. -Very high inflammatory markers - ferritin [id number]. Ferritin elevated, CRP/LDH improving. Risk for cytokine storm secondary to COVID and high risk for ARDS -Patient may need to be on BiPAP if respiratory status is not improving and she continues to get weaker. -Continue vancomycin . -Follow culture from surgical procedure -Continue isolation and droplet precautions. Continuous pulse oximetry and telemetry. -Tight diabetic control -To the wound care -MRI of the right foot outpatient deferred due to COVID 19 treatment and nonemergent at this time -Replace electrolytes as needed -Obtain serial Ferritin, LDH, D-Dimer, CRP every 48h -Daily EKG - QT monitoring - stop plaqenil if QT interval >500 -Obtain IL-6 (sent out) to evaluate cytokine release syndrome due to COVID -Weight loss recommendations on discharge Family updated The high probability of a clinically significant, sudden or life threatening deterioration of the [pulmonary, renal, ] system(s) required my full and direct attention, intervention and personal management. The aggregate critical care time was [35] minutes. This time is in addition to time spent performing reported procedures but includes the following: [x] Data Review and interpretation [x] Patient assessment and monitoring of vital signs [x] Documentation [x] Medication orders and management History Interval history: Patient seen and examined remains intubated, continues to tolerated daily trail of CPAP, tires after few hrs, but follows command. there was concern of Bundle branch block. Stat EKG ordered, awaiting result Hospitalist Physical - Physical exam Narrative exam: VITAL SIGNS: Reviewed. GENERAL: The patient appears normally developed, on mechanical ventilator Vital signs as documented. HEAD: No signs of head trauma. EYES: unable to examin MOUTH: ETT in place CHEST: unable to examin, observed from window rise of chest wall CARDIAC: unable to examin, telemetry denotes, SR MUSCULOSKELETAL: dressing around site of I/D and wound VAC is in place Extremities without clubbing, cyanosis +edema. NEUROLOGIC EXAM: SEDATED Exam is limited due to PPE deficiency. - Constitutional Vitals: Temp Pulse Resp BP Pulse Ox 97.8 F 79 30 H 111/63 100 02/04/20 15:31 02/04/20 17:15 02/04/20 17:00 02/04/20 17:15 02/04/20 17:00 General appearance: Present: no acute distress Results - Labs CBC & Chem 7: 02/04/20 04:42 02/04/20 04:42 Labs: Laboratory Last Values WBC 13.7 K/mm3 (4.5-11.0) H 02/04/20 04:42 RBC 2.92 M/mm3 (3.65-5.03) L 02/04/20 04:42 Hgb 7.4 gm/dl (10.1-14.3) L 02/04/20 04:42 Hct 23.0 % (30.3-42.9) L 02/04/20 04:42 MCV 79 fl (79-97) 02/04/20 04:42 MCH 25 pg (28-32) L 02/04/20 04:42 MCHC 32 % (30-34) 02/04/20 04:42 RDW 13.5 % (13.2-15.2) 02/04/20 04:42 Plt Count 195 K/mm3 (140-440) 02/04/20 04:42 Lymph % (Auto) 16.6 % (13.4-35.0) 01/18/20 08:30 [place] % (Auto) 2.8 % (0.0-7.3) 01/18/20 08:30 Eos % (Auto) 0.1 % (0.0-4.3) 01/18/20 08:30 Baso % (Auto) 0.4 % (0.0-1.8) 01/18/20 08:30 Lymph # 1.2 K/mm3 (1.2-5.4) 01/18/20 08:30 [place] # 0.2 K/mm3 (0.0-0.8) 01/18/20 08:30 Eos # 0.0 K/mm3 (0.0-0.4) 01/18/20 08:30 Baso # 0.0 K/mm3 (0.0-0.1) 01/18/20 08:30 Add Manual Diff Complete 01/26/20 05:40 Total Counted 100 01/26/20 05:40 Seg Neutrophils % Poultry Husbandman 01/26/20 05:40 Seg Neuts % (Manual) 90.0 % (40.0-70.0) H 01/26/20 05:40 Band Neutrophils % 5.0 % 01/26/20 05:40 Lymphocytes % (Manual) 1.0 % (13.4-35.0) L 01/26/20 05:40 Reactive Lymphs % (Man) 0 % 01/26/20 05:40 Monocytes % (Manual) 2.0 % (0.0-7.3) 01/26/20 05:40 Eosinophils % (Manual) 2.0 % (0.0-4.3) 01/26/20 05:40 Basophils % (Manual) 0 % (0.0-1.8) 01/26/20 05:40 Metamyelocytes % 0 % 01/26/20 05:40 Myelocytes % 0 % 01/26/20 05:40 Promyelocytes % 0 % 01/26/20 05:40 Blast Cells % 0 % 01/26/20 05:40 Nucleated RBC % 1.0 % (0.0-0.9) H 01/26/20 05:40 Seg Neutrophils # 5.9 K/mm3 (1.8-7.7) 01/18/20 08:30 Seg Neutrophils # Man 14.8 K/mm3 (1.8-7.7) H 01/26/20 05:40 Band Neutrophils # 0.8 K/mm3 01/26/20 05:40 Lymphocytes # (Manual) 0.2 K/mm3 (1.2-5.4) L 01/26/20 05:40 Abs React Lymphs (Man) 0.0 K/mm3 01/26/20 05:40 Monocytes # (Manual) 0.3 K/mm3 (0.0-0.8) 01/26/20 05:40 Eosinophils # (Manual) 0.3 K/mm3 (0.0-0.4) 01/26/20 05:40 Basophils # (Manual) 0.0 K/mm3 (0.0-0.1) 01/26/20 05:40 Metamyelocytes # 0.0 K/mm3 01/26/20 05:40 Myelocytes # 0.0 K/mm3 01/26/20 05:40 Promyelocytes # 0.0 K/mm3 01/26/20 05:40 Blast Cells # 0.0 K/mm3 01/26/20 05:40 WBC Morphology Not Reportable 01/26/20 05:40 Hypersegmented Neuts Not Reportable 01/26/20 05:40 Hyposegmented Neuts Not Reportable 01/26/20 05:40 Hypogranular Neuts Not Reportable 01/26/20 05:40 Smudge Cells Not Reportable 01/26/20 05:40 Toxic Granulation Not Reportable 01/26/20 05:40 Toxic Vacuolation Not Reportable 01/26/20 05:40 Dohle Bodies Not Reportable 01/26/20 05:40 Pelger-Huet Anomaly Not Reportable 01/26/20 05:40 Barbie Rods Not Reportable 01/26/20 05:40 Platelet Estimate Consistent w auto 01/26/20 05:40 Clumped Platelets Not Reportable 01/26/20 05:40 Plt Clumps, EDTA Not Reportable 01/26/20 05:40 Large Platelets Not Reportable 01/26/20 05:40 Giant Platelets Not Reportable 01/26/20 05:40 Platelet Satelliting Not Reportable 01/26/20 05:40 Plt Morphology Comment Not Reportable 01/26/20 05:40 RBC Morphology Normal 01/26/20 05:40 Dimorphic RBCs Not Reportable 01/26/20 05:40 Polychromasia Not Reportable 01/26/20 05:40 Hypochromasia Not Reportable 01/26/20 05:40 Poikilocytosis Not Reportable 01/26/20 05:40 Anisocytosis Not Reportable 01/26/20 05:40 Microcytosis Not Reportable 01/26/20 05:40 Macrocytosis Not Reportable 01/26/20 05:40 Spherocytes Not Reportable 01/26/20 05:40 Pappenheimer Bodies Not Reportable 01/26/20 05:40 Sickle Cells Not Reportable 01/26/20 05:40 Target Cells Not Reportable 01/26/20 05:40 Tear Drop Cells Not Reportable 01/26/20 05:40 Ovalocytes Not Reportable 01/26/20 05:40 Helmet Cells Not Reportable 01/26/20 05:40 [place] Bodies Not Reportable 01/26/20 05:40 [place] Rings Not Reportable 01/26/20 05:40 Pauline Cells Not Reportable 01/26/20 05:40 Bite Cells Not Reportable 01/26/20 05:40 Crenated Cell Not Reportable 01/26/20 05:40 Elliptocytes Not Reportable 01/26/20 05:40 Acanthocytes (Spur) Not Reportable 01/26/20 05:40 Rouleaux Not Reportable 01/26/20 05:40 Hemoglobin C Crystals Not Reportable 01/26/20 05:40 Schistocytes Not Reportable 01/26/20 05:40 Malaria parasites Not Reportable 01/26/20 05:40 ESR 70 mm/Hr (0-20) 01/17/20 22:58 Ras Bodies Not Reportable 01/26/20 05:40 Hem Pathologist Commnt No 01/26/20 05:40 PT 15.6 Sec. (12.2-14.9) H 01/17/20 18:28 INR 1.22 (0.87-1.13) H 01/17/20 18:28 D-Dimer 694.19 ng/mlDDU (0-234) H 02/04/20 04:42 ABG pH 7.484 pH Units (7.350-7.450) H 02/04/20 Unknown ABG pCO2 28.8 mm Hg 02/04/20 Unknown ABG pO2 104.8 mm Hg (80.0-90.0) H 02/04/20 Unknown ABG HCO3 21.2 mmol/L (20.0-26.0) 02/04/20 Unknown ABG O2 Saturation 98.1 % (95.0-99.0) 02/04/20 Unknown ABG O2 Content 13.0 (0.0-44) 02/04/20 Unknown ABG Base Excess -1.6 mmol/L (-2.0-3.0) 02/04/20 Unknown ABG Hemoglobin 9.5 gm/dl (12.0-16.0) L 02/04/20 Unknown ABG Carboxyhemoglobin 1.3 % (0.0-5.0) 02/04/20 Unknown ABG Methemoglobin 0.6 % (0.0-1.5) 02/04/20 Unknown VBG pH 7.409 (7.320-7.420) 01/17/20 18:28 Oxyhemoglobin 96.2 % (95.0-99.0) 02/04/20 Unknown FiO2 40 % 02/04/20 Unknown Sodium 140 mmol/L (137-145) 02/04/20 04:42 Potassium 4.0 mmol/L (3.6-5.0) 02/04/20 04:42 Chloride 102.4 mmol/L (98-107) 02/04/20 04:42 Carbon Dioxide 17 mmol/L (22-30) L 02/04/20 04:42 Anion Gap 25 mmol/L 02/04/20 04:42 BUN 80 mg/dL (7-17) H 02/04/20 04:42 Creatinine 5.8 mg/dL (0.7-1.2) H 02/04/20 04:42 Estimated GFR 10 ml/min 02/04/20 04:42 BUN/Creatinine Ratio 14 % 02/04/20 04:42 Glucose 209 mg/dL (65-100) H 02/04/20 04:42 POC Glucose 248 (70-105) H 02/04/20 12:03 Hemoglobin A1c 11.6 % (4-6) H 01/18/20 12:47 Lactic Acid 1.30 mmol/L (0.7-2.0) 01/18/20 08:30 Calcium 8.3 mg/dL (8.4-10.2) L D 02/04/20 04:42 Magnesium 1.50 mg/dL (1.7-2.3) L 01/17/20 22:58 Ferritin 1660.0 ng/mL (13.0-400.0) H 02/04/20 04:42 Total Bilirubin 0.50 mg/dL (0.1-1.2) 01/31/20 03:49 AST 112 units/L (5-40) H 01/31/20 03:49 ALT 112 units/L (7-56) H 01/31/20 03:49 Alkaline Phosphatase 145 units/L (35-129) H 01/31/20 03:49 Lactate Dehydrogenase 972 units/L (91-180) H 02/04/20 04:42 Total Creatine Kinase 122 units/L (30-135) 01/17/20 22:58 C-Reactive Protein 6.20 mg/dL (0.00-1.30) H 02/04/20 04:42 Total Protein 5.5 g/dL (6.3-8.2) L 01/31/20 03:49 Albumin 1.7 g/dL (3.9-5) L 01/31/20 03:49 Albumin/Globulin Ratio 0.4 % 01/31/20 03:49 Procalcitonin 0.27 ng/mL (<0.15) 01/23/20 10:36 HCG, Qual Negative (Negative) 01/31/20 03:49 Urine Color Yellow (Yellow) 01/18/20 00:32 Urine Turbidity Slightly-cloudy (Clear) 01/18/20 00:32 Urine pH 5.0 (5.0-7.0) 01/18/20 00:32 Ur Specific [place] 1.011 (1.003-1.030) 01/18/20 00:32 Urine Protein 100 mg/dl mg/dL (Negative) 01/18/20 00:32 Urine Glucose (UA) >=500 mg/dL (Negative) 01/18/20 00:32 Urine Ketones Tr mg/dL (Negative) 01/18/20 00:32 Urine Blood Neg (Negative) 01/18/20 00:32 Urine Nitrite Neg (Negative) 01/18/20 00:32 Urine Bilirubin Neg (Negative) 01/18/20 00:32 Urine Urobilinogen < 2.0 mg/dL (<2.0) 01/18/20 00:32 Ur Leukocyte Esterase Neg (Negative) 01/18/20 00:32 Urine WBC (Auto) 2.0 /HPF (0.0-6.0) 01/18/20 00:32 Urine RBC (Auto) 4.0 /HPF (0.0-6.0) 01/18/20 00:32 U Epithel Cells (Auto) 2.0 /HPF (0-13.0) 01/18/20 00:32 Hyaline Casts 1 /LPF 01/18/20 00:32 Urine Mucus Few /HPF 01/18/20 00:32 Urine Yeast (Budding) Few /HPF 01/18/20 00:32 Vancomycin Trough 45.4 ug/mL (5.0-20.0) H 01/30/20 05:19 Random Vancomycin 30.6 ug/mL (0-40.0) 02/01/20 03:49 Hepatitis A IgM Ab Non-reactive (NonReactive) 02/01/20 10:57 Hep Bs Antigen Non-reactive (Negative) 02/01/20 10:57 Hep B Core IgM Ab Non-reactive (NonReactive) 02/01/20 10:57 Hepatitis C Antibody Non-reactive (NonReactive) 02/01/20 10:57 Influenza A (Rapid) Negative (Negative) 01/19/20 01:10 Influenza B (Rapid) Negative (Negative) 01/19/20 01:10 AFB Identification 01/20/20 04:00 Miscellaneous Test Flexitest 1 H 01/28/20 10:00 Microbiology: Microbiology 01/31/20 Unknown Thigh - Left Surgical Biopsy Culture - Preliminary Goldstein/IV: Voiding Method Condom Catheter IV Catheter Type [right ac] Peripheral IV IV Catheter Type [Right trialysis Femoral] IV Catheter Type [Right Peripheral IV Forearm] IV Catheter Type [Right Wrist] INT / Saline Lock IV Catheter Type [Right Hand] INT / Saline Lock IV Catheter Type [Right Upper INT / Saline Lock arm] IV Catheter Type [Left Hand] INT / Saline Lock Active Medications - Current Medications Current Medications: Generic Name Dose Route Start Last Admin Trade Name Freq PRN Reason Stop Dose Admin Acetaminophen 650 mg 01/17/20 23:06 01/29/20 22:43 Tylenol PO 650 mg Q4H PRN Administration Pain MILD(1-3)/Fever >100.5/COLLINS Lipase/Protease/Amylase 1 each 02/01/20 09:[address] 10,500 Unit FEEDTUBE PRN PRN For Clogged Feeding Tube Dextrose 0 ml 01/17/20 23:06 D50w (25gm) Syringe IV Q30MIN PRN Hypoglycemia Protocol Famotidine 20 mg 01/24/20 10:00 02/04/20 10:38 Pepcid PO 20 mg QDAY COBY Administration Fentanyl 50 mcg 01/31/20 21:48 Sublimaze IV Q10MIN PRN ANALGESIA Heparin Sodium (Porcine) 5,000 unit 01/18/20 06:00 02/04/20 15:36 Heparin SUB-Q 5,000 unit Q8HR COBY Administration Hydralazine HCl 10 mg 01/18/20 22:14 01/22/20 18:43 Apresoline IV 10 mg Q6H PRN Administration Hypertension Hydrophilic Ointment 1 applic 01/31/20 21:48 Vaseline Lip Therapy TP Q2HR PRN Dry Lips Fentanyl Citrate 2,000 mcg in 100 mls @ 7.395 mls/hr 01/31/20 22:00 02/04/20 03:46 Fentanyl Drip Premix IV 1 mcg/kg/hr TITR COBY 7.395 mls/hr Administration Protocol 1 MCG/KG/HR Norepinephrine 4 mg in 250 mls @ 7.5 mls/hr 01/31/20 23:45 02/02/20 20:15 Levophed Drip 4 Mg/Ns 250 Ml IV 0 mcg/min TITR COBY 0 mls/hr Titration Protocol 2 MCG/MIN Sodium Chloride 100 mls @ 999 mls/hr 02/01/20 10:26 Nacl 0.9% IV KIRSTEN PRN Hypotension Piperacillin Sod/Tazobactam Sod 2.25 gm in 50 mls @ 100 mls/hr 02/01/20 14:00 02/04/20 05:06 Zosyn/Ns 2.25 Gm/50ml IV 02/07/20 23:59 100 mls/hr Q8HR COBY Administration Protocol Sodium Chloride 100 mls @ 999 mls/hr 02/04/20 09:10 Nacl 0.9% IV KIRSTEN PRN Hypotension Insulin Human Isoph/Insulin Regular 20 unit 02/04/20 17:00 Humulin 70/30 SUB-Q BIDDIAB COBY Insulin Human Regular 0 units 02/01/20 12:00 02/04/20 15:35 Humulin R SUB-Q 4 units Q6HR COBY Administration Protocol Insulin Human Regular 5 units 02/04/20 12:00 02/04/20 15:36 Humulin R SUB-Q 5 units Q6HR COBY Administration Magnesium Hydroxide 30 ml 01/17/20 23:06 Milk Of Magnesia PO Q4H PRN Constipation Morphine Sulfate 2 mg 01/17/20 23:06 01/30/20 20:39 Morphine IV 2 mg Q4H PRN Administration Pain, Moderate (4-6) Multi-Ingred Cream/Lotion/Oil/Oint 1 applic 01/31/20 21:48 Artificial Tears Ophth Oint OU Q4HR PRN Dry Eye(s) Nystatin 1 applic 01/29/20 14:00 02/04/20 10:38 Nystop TP 1 applic BID COBY Administration Ondansetron HCl 4 mg 01/17/20 23:06 01/30/20 20:47 Zofran IV 4 mg Q8H PRN Administration Nausea And Vomiting Simple Syrup 15 ml 02/01/20 09:53 Simple Syrup FEEDTUBE PRN PRN Hypoglycemia Simple Syrup 30 ml 02/01/20 09:53 Simple Syrup FEEDTUBE PRN PRN Hypoglycemia Sodium Bicarbonate 325 mg 02/01/20 09:53 Sodium Bicarbonate FEEDTUBE PRN PRN For Clogged Feeding Tube Sodium Chloride 10 ml 01/18/20 10:00 02/04/20 10:37 Sodium Chloride Flush Syringe 10 Ml IV 10 ml BID COBY Administration Sodium Chloride 10 ml 01/17/20 23:06 02/04/20 05:07 Sodium Chloride Flush Syringe 10 Ml IV 10 ml PRN PRN Administration LINE FLUSH Nutrition/Malnutrition Assess - Dietary Evaluation Nutrition/Malnutrition Findings: Nutrition Notes Start: 01/18/20 13:13 Freq: Status: Active Protocol: Document 02/04/20 12:57 LM (Rec: 02/04/20 13:02 LM [id number]) Nutrition Notes Initial or Follow up Reassessment Current Diagnosis Diabetes,Sepsis Other Pertinent Diagnosis COVID-19 positive, LEV pnue, ( R) great toe wound Current Diet Vital HP 1.0 at 75ml/hr Labs/Tests Na 140 BUN 80 Cr 5.8 BG 209 Pertinent Medications Humulin Height 6 ft Weight 147.9 kg [place] Body Weight (kg) 72.72 BMI 44.1 Weight Status Morbidly Obese Subjective/Other Information Per RN pt is tolerating TF at goal. Na now in normal range. Percent of energy/protein needs met: 87%/86% Burn Absent Trauma Absent Current % PO Negligible Minimum of two criteria No physical signs of malnutrition #3 Nutrition Diagnosis Inadequate oral intake Diagnosis Progress(for reassessment Continues documentation) #2 Nutrition Diagnosis Inadequate protein-energy intake Diagnosis Progress(for reassessment Continues documentation) #1 Nutrition Diagnosis Increased nutrient needs ( specify in comment below) Diagnosis Progress(for reassessment Continues documentation) Is patient on ventilator? Yes Is Patient Ambulatory and/or Out of Bed Yes REE-([place]. Jeor-ambulatory/OOB) [ 3004.300 [id number]] Kcal/Kg value to use for calculation 14 Approximate Energy Requirements Using 1 kcal/Kg Calculation Used for Recommendations Kcal/kg Additional Notes Protein: 183g (up to 2.5g/kg using IBW 73kg Fluid needs 1ml/kcal Nutrition Intervention Change Diet Order: Continue TF Nutrition Support: Vital HP 1.0 at 75ml/hr Flush 50 ml q4h Kcal 1,800 Protein (gm) 158 Fluid (mL) 1,505 Goal #1 TF tolerance Goal #2 Meet at least 75% of energy and protein needs via TF Goal #3 Wound healing Anticipated Discharge Needs: unable to determine at this time Follow-Up By: 02/11/20 Additional Comments F/U for TF tolerance
[2020-02-04] MEDS ORDERED: SODIUM CHLORIDE*PRIMING MACHINE ONLY FOR DIALYSIS MC ONE (21:38)
[2020-02-05] MEDS: PIPERACIL-TAZO 2.25 GM/50 ML 2.25 GM/50 ML BAG IV SCH ×4 (00:14→21:51)
[2020-02-05] MEDS: INSULIN REGULAR, HUMAN 100 UNITS/1 ML SUB-Q SCH ×10 (00:15→23:49)
--- NOTE | 2020-02-05 03:45 | XRay Report ---
CHEST 1 VIEW INDICATION / CLINICAL INFORMATION: follow up respiratory failure. COMPARISON: 02/04/2020 FINDINGS: SUPPORT DEVICES: The endotracheal tube remains in satisfactory position. HEART / MEDIASTINUM: No significant abnormality. LUNGS / PLEURA: Mild hazy opacity is seen in both lower thoraces, no new disease. No pneumothorax. ADDITIONAL FINDINGS: No significant additional findings. IMPRESSION: 1. Bibasilar inhomogeneous densities are unchanged. Signer Name: Colin Quevedo MD Signed: 02/05/2020 3:40 AM Workstation Name: [id number]
[2020-02-05 04:08] LABS: Hematocrit 23.4 % (30.3-42.9); Hemoglobin 7.6 gm/dl (10.1-14.3); Mean Corpuscular HGB Conc 33 % (30-34); Mean Corpuscular Volume 79 fl (79-97); Platelet Count 184 K/mm3 (140-440); Red Blood Count 2.98 M/mm3 (3.65-5.03); Red Cell Distribution Width 13.4 % (13.2-15.2)
[2020-02-05 04:30] LABS: Calcium 8.3 mg/dL (8.4-10.2)
[2020-02-05 05:42] LABS: ABG Base Excess -0.1 mmol/L (-2.0-3.0); ABG HCO3 22.9 mmol/L (20.0-26.0); ABG Methemoglobin 0.4 % (0.0-1.5); ABG Oxygen Saturation 98.3 % (95.0-99.0); ABG PCO2 30.2 mm Hg; ABG PH 7.497 pH Units (7.350-7.450); ABG PO2 111.6 mm Hg (80.0-90.0)
[2020-02-05] MEDS: HEPARIN 5,000 UNIT/1 ML VIAL SUB-Q SCH ×3 (05:59→21:48)
[2020-02-05] MEDS: fentaNYL DRIP Premix 2,000 MCG/100 ML BAG IV SCH (06:08)
[2020-02-05] MEDS: FAMOTIDINE 20 MG TAB PO SCH (09:07)
[2020-02-05] MEDS: INSULIN NPH/REGULAR 70/30 INJ SUB-Q SCH ×2 (09:07→18:57)
[2020-02-05] MEDS: NYSTATIN POWDER 15 GM TP SCH ×2 (09:09→21:43)
[2020-02-05] MEDS ORDERED: SODIUM CHLORIDE 0.9% 100 ML IV PRN (11:31)
[2020-02-05] MEDS: MORPHINE 2 MG/1 ML INJ IV PRN (11:49)
[2020-02-05] MEDS ORDERED: fentaNYL 100 MCG/2 ML INJ IV PRN (12:00)
--- NOTE | 2020-02-05 13:48 | Progress Note ---
Assessment and Plan 29 year old diabetic female with sepsis and multi system organ failure. Sources of sepsis include pneumonia COVID+ and left thigh abscess that required extensive incision and drainage. stable with intermittent low grade fever showing overall clinical improvement with decreasing leukocytosis. 1. next wound vac change scheduled for tuesday, continue abx 2. continue supportive measures for renal failure and pneumonia per primary Subjective Date of service: 02/05/20 Patient Reports: Positive: other Narrative: Pt self extubated this morning. She continues to be non-verbal but follows simple commands at times. Objective Vital Signs - 12hr 02/05/20 02/05/20 02/05/20 01:45 02:00 02:16 Temperature Pulse Rate 78 76 83 Pulse Rate [ From Monitor] Respiratory 30 H 30 H 27 H Rate Blood Pressure 112/55 113/55 140/84 O2 Sat by Pulse 100 100 100 Oximetry 02/05/20 02/05/20 02/05/20 02:30 02:45 03:00 Temperature Pulse Rate 82 80 82 Pulse Rate [ From Monitor] Respiratory 30 H 30 H 22 Rate Blood Pressure 118/60 119/59 127/68 O2 Sat by Pulse 100 100 100 Oximetry 02/05/20 02/05/20 02/05/20 03:15 03:30 03:45 Temperature Pulse Rate 88 81 Pulse Rate [ From Monitor] Respiratory 24 30 H Rate Blood Pressure 128/62 125/67 114/60 O2 Sat by Pulse 100 100 100 Oximetry 02/05/20 02/05/20 02/05/20 04:00 04:15 04:30 Temperature 100 F H Pulse Rate 81 86 81 Pulse Rate [ 81 From Monitor] Respiratory 30 H 30 H 27 H Rate Blood Pressure 117/61 113/59 116/62 O2 Sat by Pulse 100 100 100 Oximetry 02/05/20 02/05/20 02/05/20 04:45 04:52 05:00 Temperature Pulse Rate 77 85 84 Pulse Rate [ From Monitor] Respiratory 30 H 29 H Rate Blood Pressure 121/63 121/63 120/62 O2 Sat by Pulse 100 100 100 Oximetry 02/05/20 02/05/20 02/05/20 05:15 05:30 05:45 Temperature Pulse Rate 79 80 79 Pulse Rate [ From Monitor] Respiratory 29 H 24 29 H Rate Blood Pressure 123/64 124/67 130/66 O2 Sat by Pulse 100 100 100 Oximetry 02/05/20 02/05/20 02/05/20 06:00 06:15 06:30 Temperature Pulse Rate 77 82 78 Pulse Rate [ From Monitor] Respiratory 29 H 30 H 30 H Rate Blood Pressure 128/64 127/62 126/62 O2 Sat by Pulse 100 100 100 Oximetry 02/05/20 02/05/20 02/05/20 06:45 07:00 07:15 Temperature Pulse Rate 79 85 75 Pulse Rate [ From Monitor] Respiratory 30 H 27 H 30 H Rate Blood Pressure 123/63 120/61 113/65 O2 Sat by Pulse 100 100 100 Oximetry 02/05/20 02/05/20 02/05/20 07:30 07:45 08:00 Temperature 100.1 F H Pulse Rate 83 82 82 Pulse Rate [ From Monitor] Respiratory 30 H 30 H 30 H Rate Blood Pressure 118/67 128/65 137/67 O2 Sat by Pulse 100 100 100 Oximetry 02/05/20 02/05/20 02/05/20 08:16 08:30 08:45 Temperature Pulse Rate 89 90 91 H Pulse Rate [ From Monitor] Respiratory 26 H 30 H 30 H Rate Blood Pressure 138/61 130/60 137/68 O2 Sat by Pulse 100 100 100 Oximetry 02/05/20 02/05/20 09:07 09:10 Temperature Pulse Rate 113 H Pulse Rate [ From Monitor] Respiratory Rate Blood Pressure 154/85 O2 Sat by Pulse 100 100 Oximetry - General physical appearance no distress - Respiratory normal expansion, normal respiratory effort - Integumentary other (wound vac removed with wound care nurse. wound bed clean with no purulent drainage. skin edges in tact. desquamation on anterior thigh. vac replaced with good suction) - Labs 02/05/20 03:51 02/05/20 03:51 Diabetes panel 02/05/20 Range/Units 03:51 Sodium 141 (137-145) mmol/L Potassium 3.9 (3.6-5.0) mmol/L Chloride 101.8 (98-107) mmol/L Carbon Dioxide 19 L (22-30) mmol/L BUN 65 H (7-17) mg/dL Creatinine 5.9 H (0.7-1.2) mg/dL Glucose 167 H (65-100) mg/dL Calcium 8.3 L (8.4-10.2) mg/dL Calcium panel 02/05/20 Range/Units 03:51 Calcium 8.3 L (8.4-10.2) mg/dL Pituitary panel 02/05/20 Range/Units 03:51 Sodium 141 (137-145) mmol/L Potassium 3.9 (3.6-5.0) mmol/L Chloride 101.8 (98-107) mmol/L Carbon Dioxide 19 L (22-30) mmol/L BUN 65 H (7-17) mg/dL Creatinine 5.9 H (0.7-1.2) mg/dL Glucose 167 H (65-100) mg/dL Calcium 8.3 L (8.4-10.2) mg/dL Adrenal panel 02/05/20 Range/Units 03:51 Sodium 141 (137-145) mmol/L Potassium 3.9 (3.6-5.0) mmol/L Chloride 101.8 (98-107) mmol/L Carbon Dioxide 19 L (22-30) mmol/L BUN 65 H (7-17) mg/dL Creatinine 5.9 H (0.7-1.2) mg/dL Glucose 167 H (65-100) mg/dL Calcium 8.3 L (8.4-10.2) mg/dL
--- NOTE | 2020-02-05 14:33 | Progress Note ---
Assessment and Plan Severe Sepsis with septic shock; SOFA >2 Acute hypoxemic respiratory failure s/p MVS Left upper lobe pneumonia ; COVID 19 induced pneumonia Diabetes II Morbid obesity Febrile illness POSITIVE COVID-19 infection Diabetic foot ulcer Lactic acidosis CIPRIANO-secondary to ATN, vasomotor nephropathy on HD Thigh abscess s/p I and D More awake and alert, with improvements in oxygenation and radiographically Supplemtnal oxygen Swallow evaluation -Very high inflammatory markers - ferritin 2758; CRP/LDH -much improved Risk for cytokine storm secondary to COVID and high risk for ARDS IL-6 elevated 105 -Serial Ferritin, LDH, D-Dimer, CRP every 48h -Conservative fluid management- use vasopressors including midodrine to support blood pressure as indicated. -ABG, CXR in am -Aspiration precautions, HOB >40 -Accuchecks with glycemic control, keep blood glucose 140-180 mg/dL while critically ill -Avoid hypoglycemia -Avoid nephrotoxins, adjust and dose all medications for GFR and CrCL -Supportive HD per renal service -VTE prophylaxis- heparin -Stress ulcer prophylaxis- Famotidine -Wound care per Surgery service- has a wound vac -Replace electrolytes as needed -COVID-19 precautions per [facility] protocol -All other care per Attending and consultants CONDITION: CRITICAL PROGNOSIS: GUARDED CODE STATUS: FULL CODE Subjective Date of service: 02/05/20 Principal diagnosis: Severe Sepsis; LEV PNA; DM II; Morbid obesity; R/O COVID-19 infection Interval history: Patient is seen today for: Severe Sepsis with septic shock ; LEV pneumonia; Acute hypoxemic respiratory failure on MVS; Diabetes II; Morbid obesity; Febrile illness; POSITIVE COVID-19 infection; Diabetic foot ulcer; Hyponatremia; Lactic acidosis Seen and examined at bedside; 24hour events reviewed; nursing and respiratory care staff consulted; no adverse overnight events reported to me; 02/01/2020 POD#1 s/p extensive I&D of left thigh abscess with sepsis and showing signs of multi-system organ failure; critically ill orally intubated on MVS; on HD , and vasopressor support. Norepinephrine at 14mcg; Fentanyl at 1mcg. No urine output, has a right femoral trialysis catheter. Currently on Zosyn, received one dose of Vancomycin- therapeutic level is markedly increased. pH 7.29- metabolic acidosis. 02/04/2020 Vitals, labs, medications, chart and imaging reviewed. Remains orally intubated ETT 7.5cm at 22cm at the [facility] AC-PRVC 14/450/6/40% ..pA02 104.8 Poor glycemic control with blood glucose>200 On Zosyn D4/7 Ferritin down to 1660, D-dimer down to 694, CRP down to 6.2, sligh elevation of LDH to 972 Fentanyl at 1mcg with RASS -1 Norepinephrine off ( 02/02/2020) CXR alveolar infiltrates improving For HD today 02/05/2020 Self extubated, doing well on supplemental oxygen via Venturi mask at 35% Discussed with renal re extra session of Objective Vital Signs - 12hr 02/05/20 02/05/20 02/05/20 02:45 03:00 03:15 Temperature Pulse Rate 80 82 Pulse Rate [ From Monitor] Respiratory 30 H 22 Rate Blood Pressure 119/59 127/68 128/62 O2 Sat by Pulse 100 100 100 Oximetry 02/05/20 02/05/20 02/05/20 03:30 03:45 04:00 Temperature 100 F H Pulse Rate 88 81 81 Pulse Rate [ 81 From Monitor] Respiratory 24 30 H 30 H Rate Blood Pressure 125/67 114/60 117/61 O2 Sat by Pulse 100 100 100 Oximetry 02/05/20 02/05/20 02/05/20 04:15 04:30 04:45 Temperature Pulse Rate 86 81 77 Pulse Rate [ From Monitor] Respiratory 30 H 27 H 30 H Rate Blood Pressure 113/59 116/62 121/63 O2 Sat by Pulse 100 100 100 Oximetry 02/05/20 02/05/20 02/05/20 04:52 05:00 05:15 Temperature Pulse Rate 85 84 79 Pulse Rate [ From Monitor] Respiratory 29 H 29 H Rate Blood Pressure 121/63 120/62 123/64 O2 Sat by Pulse 100 100 100 Oximetry 02/05/20 02/05/20 02/05/20 05:30 05:45 06:00 Temperature Pulse Rate 80 79 77 Pulse Rate [ From Monitor] Respiratory 24 29 H 29 H Rate Blood Pressure 124/67 130/66 128/64 O2 Sat by Pulse 100 100 100 Oximetry 02/05/20 02/05/20 02/05/20 06:15 06:30 06:45 Temperature Pulse Rate 82 78 79 Pulse Rate [ From Monitor] Respiratory 30 H 30 H 30 H Rate Blood Pressure 127/62 126/62 123/63 O2 Sat by Pulse 100 100 100 Oximetry 02/05/20 02/05/20 02/05/20 07:00 07:15 07:30 Temperature Pulse Rate 85 75 83 Pulse Rate [ From Monitor] Respiratory 27 H 30 H 30 H Rate Blood Pressure 120/61 113/65 118/67 O2 Sat by Pulse 100 100 100 Oximetry 02/05/20 02/05/20 02/05/20 07:45 08:00 08:16 Temperature 100.1 F H Pulse Rate 82 82 89 Pulse Rate [ From Monitor] Respiratory 30 H 30 H 26 H Rate Blood Pressure 128/65 137/67 138/61 O2 Sat by Pulse 100 100 100 Oximetry 02/05/20 02/05/20 02/05/20 08:30 08:45 09:07 Temperature Pulse Rate 90 91 H 113 H Pulse Rate [ From Monitor] Respiratory 30 H 30 H Rate Blood Pressure 130/60 137/68 154/85 O2 Sat by Pulse 100 100 100 Oximetry 02/05/20 09:10 Temperature Pulse Rate Pulse Rate [ From Monitor] Respiratory Rate Blood Pressure O2 Sat by Pulse 100 Oximetry Constitutional: other (young obese AAF, normocephalic, extubated on supplemtnal oxygen via Venturi mask) Eyes: non-icteric ENT: oropharynx dry Neck: supple, no lymphadenopathy, no JVD Effort: mildly labored Ascultation: Bilateral: diminished breath sounds, rales (scant in bases) Percussion: Bilateral: not dull Cardiovascular: regular rate and rhythm, other (S1,S2) Gastrointestinal: normoactive bowel sounds, soft, non-tender, non-distended Integumentary: other (Thigh abscess s/p I and D) Extremities: no cyanosis, no edema, pulses normal, no ischemia or petechiae Neurologic: normal mental status, non-focal exam, pupils equal and round, CN II- XII normal, motor strength normal and Psychiatric: mood appropriate, affect normal CBC and BMP: 02/09/20 05:27 02/09/20 05:27 ABG, PT/INR, D-dimer: ABG ABG pH 7.497 pH Units (7.350-7.450) H 02/05/20 Unknown ABG pCO2 30.2 mm Hg 02/05/20 Unknown ABG pO2 111.6 mm Hg (80.0-90.0) H 02/05/20 Unknown ABG O2 Saturation 98.3 % (95.0-99.0) 02/05/20 Unknown PT/INR, D-dimer PT 15.6 Sec. (12.2-14.9) H 01/17/20 18:28 INR 1.22 (0.87-1.13) H 01/17/20 18:28 D-Dimer 694.19 ng/mlDDU (0-234) H 02/04/20 04:42 Abnormal lab findings: Abnormal Labs 01/17/20 01/17/20 01/17/20 18:28 18:28 18:28 WBC RBC Hgb Hct MCV MCH 26 L RDW Lymph % (Auto) 9.3 L Lymph # 1.0 L Seg Neutrophils % 86.7 H Seg Neuts % (Manual) Lymphocytes % (Manual) Nucleated RBC % Seg Neutrophils # 9.6 H Seg Neutrophils # Man Lymphocytes # (Manual) PT 15.6 H INR 1.22 H D-Dimer ABG pH ABG pO2 ABG HCO3 ABG O2 Saturation ABG Base Excess ABG Hemoglobin Oxyhemoglobin Sodium 126 L Potassium Chloride 89.3 L Carbon Dioxide 19 L BUN Creatinine Glucose 397 H POC Glucose Hemoglobin A1c Lactic Acid Calcium Magnesium Ferritin AST ALT Alkaline Phosphatase Lactate Dehydrogenase C-Reactive Protein Total Protein 9.0 H Albumin Vancomycin Trough Random Vancomycin Miscellaneous Test 01/17/20 01/17/20 01/17/20 18:28 22:58 22:58 WBC RBC Hgb Hct MCV MCH RDW Lymph % (Auto) Lymph # Seg Neutrophils % Seg Neuts % (Manual) Lymphocytes % (Manual) Nucleated RBC % Seg Neutrophils # Seg Neutrophils # Man Lymphocytes # (Manual) PT INR D-Dimer ABG pH ABG pO2 ABG HCO3 ABG O2 Saturation ABG Base Excess ABG Hemoglobin Oxyhemoglobin Sodium Potassium Chloride Carbon Dioxide BUN Creatinine Glucose POC Glucose Hemoglobin A1c Lactic Acid 3.40 H* 2.30 H* Calcium Magnesium 1.50 L Ferritin AST ALT Alkaline Phosphatase Lactate Dehydrogenase C-Reactive Protein 16.60 H Total Protein Albumin Vancomycin Trough Random Vancomycin Miscellaneous Test 01/18/20 01/18/20 01/18/20 00:46 06:34 08:30 WBC RBC Hgb Hct MCV MCH 26 L RDW 12.7 L Lymph % (Auto) Lymph # Seg Neutrophils % 80.1 H Seg Neuts % (Manual) Lymphocytes % (Manual) Nucleated RBC % Seg Neutrophils # Seg Neutrophils # Man Lymphocytes # (Manual) PT INR D-Dimer ABG pH ABG pO2 ABG HCO3 ABG O2 Saturation ABG Base Excess ABG Hemoglobin Oxyhemoglobin Sodium Potassium Chloride Carbon Dioxide BUN Creatinine Glucose POC Glucose 338 H 266 H Hemoglobin A1c Lactic Acid Calcium Magnesium Ferritin AST ALT Alkaline Phosphatase Lactate Dehydrogenase C-Reactive Protein Total Protein Albumin Vancomycin Trough Random Vancomycin Miscellaneous Test 01/18/20 01/18/20 01/18/20 08:30 08:35 12:30 WBC RBC Hgb Hct MCV MCH RDW Lymph % (Auto) Lymph # Seg Neutrophils % Seg Neuts % (Manual) Lymphocytes % (Manual) Nucleated RBC % Seg Neutrophils # Seg Neutrophils # Man Lymphocytes # (Manual) PT INR D-Dimer ABG pH ABG pO2 ABG HCO3 ABG O2 Saturation ABG Base Excess ABG Hemoglobin Oxyhemoglobin Sodium 135 L D Potassium Chloride Carbon Dioxide BUN Creatinine Glucose 250 H POC Glucose 224 H 213 H Hemoglobin A1c Lactic Acid Calcium Magnesium Ferritin AST ALT Alkaline Phosphatase Lactate Dehydrogenase C-Reactive Protein Total Protein Albumin Vancomycin Trough Random Vancomycin Miscellaneous Test 01/18/20 01/18/20 01/18/20 12:47 16:56 22:03 WBC RBC Hgb Hct MCV MCH RDW Lymph % (Auto) Lymph # Seg Neutrophils % Seg Neuts % (Manual) Lymphocytes % (Manual) Nucleated RBC % Seg Neutrophils # Seg Neutrophils # Man Lymphocytes # (Manual) PT INR D-Dimer ABG pH ABG pO2 ABG HCO3 ABG O2 Saturation ABG Base Excess ABG Hemoglobin Oxyhemoglobin Sodium Potassium Chloride Carbon Dioxide BUN Creatinine Glucose POC Glucose 270 H 239 H Hemoglobin A1c 11.6 H Lactic Acid Calcium Magnesium Ferritin AST ALT Alkaline Phosphatase Lactate Dehydrogenase C-Reactive Protein Total Protein Albumin Vancomycin Trough Random Vancomycin Miscellaneous Test 01/19/20 01/19/20 01/19/20 06:15 11:48 13:09 WBC RBC Hgb Hct MCV MCH 26 L RDW Lymph % (Auto) Lymph # Seg Neutrophils % Seg Neuts % (Manual) Lymphocytes % (Manual) Nucleated RBC % Seg Neutrophils # Seg Neutrophils # Man Lymphocytes # (Manual) PT INR D-Dimer ABG pH ABG pO2 ABG HCO3 ABG O2 Saturation ABG Base Excess ABG Hemoglobin Oxyhemoglobin Sodium Potassium Chloride Carbon Dioxide BUN Creatinine Glucose POC Glucose 248 H 268 H Hemoglobin A1c Lactic Acid Calcium Magnesium Ferritin AST ALT Alkaline Phosphatase Lactate Dehydrogenase C-Reactive Protein Total Protein Albumin Vancomycin Trough Random Vancomycin Miscellaneous Test 01/19/20 01/19/20 01/20/20 17:44 21:09 09:03 WBC RBC Hgb Hct MCV MCH RDW Lymph % (Auto) Lymph # Seg Neutrophils % Seg Neuts % (Manual) Lymphocytes % (Manual) Nucleated RBC % Seg Neutrophils # Seg Neutrophils # Man Lymphocytes # (Manual) PT INR D-Dimer ABG pH ABG pO2 ABG HCO3 ABG O2 Saturation ABG Base Excess ABG Hemoglobin Oxyhemoglobin Sodium Potassium Chloride Carbon Dioxide BUN Creatinine Glucose POC Glucose 214 H 261 H 241 H Hemoglobin A1c Lactic Acid Calcium Magnesium Ferritin AST ALT Alkaline Phosphatase Lactate Dehydrogenase C-Reactive Protein Total Protein Albumin Vancomycin Trough Random Vancomycin Miscellaneous Test 01/20/20 01/20/20 01/20/20 12:10 17:00 19:43 WBC RBC Hgb Hct MCV MCH RDW Lymph % (Auto) Lymph # Seg Neutrophils % Seg Neuts % (Manual) Lymphocytes % (Manual) Nucleated RBC % Seg Neutrophils # Seg Neutrophils # Man Lymphocytes # (Manual) PT INR D-Dimer ABG pH ABG pO2 ABG HCO3 ABG O2 Saturation ABG Base Excess ABG Hemoglobin Oxyhemoglobin Sodium Potassium Chloride Carbon Dioxide BUN Creatinine Glucose POC Glucose 284 H 272 H Hemoglobin A1c Lactic Acid Calcium Magnesium Ferritin AST ALT Alkaline Phosphatase Lactate Dehydrogenase C-Reactive Protein Total Protein Albumin Vancomycin Trough 4.0 L Random Vancomycin Miscellaneous Test 01/20/20 01/21/20 01/21/20 22:39 09:29 11:41 WBC RBC Hgb Hct MCV MCH 26 L RDW Lymph % (Auto) Lymph # Seg Neutrophils % Seg Neuts % (Manual) Lymphocytes % (Manual) Nucleated RBC % Seg Neutrophils # Seg Neutrophils # Man Lymphocytes # (Manual) PT INR D-Dimer ABG pH ABG pO2 ABG HCO3 ABG O2 Saturation ABG Base Excess ABG Hemoglobin Oxyhemoglobin Sodium Potassium Chloride Carbon Dioxide BUN Creatinine Glucose POC Glucose 248 H 238 H Hemoglobin A1c Lactic Acid Calcium Magnesium Ferritin AST ALT Alkaline Phosphatase Lactate Dehydrogenase C-Reactive Protein Total Protein Albumin Vancomycin Trough Random Vancomycin Miscellaneous Test 01/21/20 01/21/20 01/21/20 11:41 12:27 16:55 WBC RBC Hgb Hct MCV MCH RDW Lymph % (Auto) Lymph # Seg Neutrophils % Seg Neuts % (Manual) Lymphocytes % (Manual) Nucleated RBC % Seg Neutrophils # Seg Neutrophils # Man Lymphocytes # (Manual) PT INR D-Dimer ABG pH ABG pO2 ABG HCO3 ABG O2 Saturation ABG Base Excess ABG Hemoglobin Oxyhemoglobin Sodium 132 L Potassium 3.5 L Chloride 97.0 L Carbon Dioxide 19 L BUN Creatinine Glucose 274 H POC Glucose 264 H 261 H Hemoglobin A1c Lactic Acid Calcium Magnesium Ferritin AST ALT Alkaline Phosphatase Lactate Dehydrogenase C-Reactive Protein Total Protein Albumin Vancomycin Trough Random Vancomycin Miscellaneous Test 01/21/20 01/22/20 01/22/20 22:39 09:05 12:57 WBC RBC Hgb Hct MCV MCH RDW Lymph % (Auto) Lymph # Seg Neutrophils % Seg Neuts % (Manual) Lymphocytes % (Manual) Nucleated RBC % Seg Neutrophils # Seg Neutrophils # Man Lymphocytes # (Manual) PT INR D-Dimer ABG pH ABG pO2 ABG HCO3 ABG O2 Saturation ABG Base Excess ABG Hemoglobin Oxyhemoglobin Sodium Potassium Chloride Carbon Dioxide BUN Creatinine Glucose POC Glucose 243 H 258 H 252 H Hemoglobin A1c Lactic Acid Calcium Magnesium Ferritin AST ALT Alkaline Phosphatase Lactate Dehydrogenase C-Reactive Protein Total Protein Albumin Vancomycin Trough Random Vancomycin Miscellaneous Test 01/22/20 01/22/20 01/23/20 17:14 21:30 09:03 WBC RBC Hgb Hct MCV MCH RDW Lymph % (Auto) Lymph # Seg Neutrophils % Seg Neuts % (Manual) Lymphocytes % (Manual) Nucleated RBC % Seg Neutrophils # Seg Neutrophils # Man Lymphocytes # (Manual) PT INR D-Dimer ABG pH ABG pO2 ABG HCO3 ABG O2 Saturation ABG Base Excess ABG Hemoglobin Oxyhemoglobin Sodium Potassium Chloride Carbon Dioxide BUN Creatinine Glucose POC Glucose 306 H 217 H 156 H Hemoglobin A1c Lactic Acid Calcium Magnesium Ferritin AST ALT Alkaline Phosphatase Lactate Dehydrogenase C-Reactive Protein Total Protein Albumin Vancomycin Trough Random Vancomycin Miscellaneous Test 01/23/20 01/23/20 01/23/20 10:36 11:12 17:11 WBC RBC Hgb Hct MCV MCH RDW Lymph % (Auto) Lymph # Seg Neutrophils % Seg Neuts % (Manual) Lymphocytes % (Manual) Nucleated RBC % Seg Neutrophils # Seg Neutrophils # Man Lymphocytes # (Manual) PT INR D-Dimer ABG pH ABG pO2 ABG HCO3 ABG O2 Saturation ABG Base Excess ABG Hemoglobin Oxyhemoglobin Sodium Potassium 3.0 L Chloride Carbon Dioxide 21 L BUN Creatinine Glucose 266 H POC Glucose 244 H 238 H Hemoglobin A1c Lactic Acid Calcium 8.3 L Magnesium Ferritin AST ALT Alkaline Phosphatase Lactate Dehydrogenase C-Reactive Protein Total Protein Albumin Vancomycin Trough Random Vancomycin Miscellaneous Test 01/23/20 01/24/20 01/24/20 22:57 06:03 12:12 WBC RBC Hgb Hct MCV MCH RDW Lymph % (Auto) Lymph # Seg Neutrophils % Seg Neuts % (Manual) Lymphocytes % (Manual) Nucleated RBC % Seg Neutrophils # Seg Neutrophils # Man Lymphocytes # (Manual) PT INR D-Dimer ABG pH ABG pO2 ABG HCO3 ABG O2 Saturation ABG Base Excess ABG Hemoglobin Oxyhemoglobin Sodium Potassium 3.2 L Chloride Carbon Dioxide 19 L BUN Creatinine Glucose 231 H POC Glucose 228 H 210 H Hemoglobin A1c Lactic Acid Calcium 8.2 L Magnesium Ferritin AST ALT Alkaline Phosphatase Lactate Dehydrogenase C-Reactive Protein Total Protein Albumin Vancomycin Trough Random Vancomycin Miscellaneous Test 01/24/20 01/24/20 01/24/20 12:50 19:01 21:49 WBC RBC Hgb Hct MCV MCH RDW Lymph % (Auto) Lymph # Seg Neutrophils % Seg Neuts % (Manual) Lymphocytes % (Manual) Nucleated RBC % Seg Neutrophils # Seg Neutrophils # Man Lymphocytes # (Manual) PT INR D-Dimer ABG pH 7.485 H ABG pO2 63.4 L ABG HCO3 ABG O2 Saturation ABG Base Excess ABG Hemoglobin 5.0 L Oxyhemoglobin Sodium Potassium Chloride Carbon Dioxide BUN Creatinine Glucose POC Glucose 183 H 193 H Hemoglobin A1c Lactic Acid Calcium Magnesium Ferritin AST ALT Alkaline Phosphatase Lactate Dehydrogenase C-Reactive Protein Total Protein Albumin Vancomycin Trough Random Vancomycin Miscellaneous Test 01/25/20 01/25/20 01/25/20 09:13 16:58 22:23 WBC RBC Hgb Hct MCV MCH RDW Lymph % (Auto) Lymph # Seg Neutrophils % Seg Neuts % (Manual) Lymphocytes % (Manual) Nucleated RBC % Seg Neutrophils # Seg Neutrophils # Man Lymphocytes # (Manual) PT INR D-Dimer ABG pH ABG pO2 ABG HCO3 ABG O2 Saturation ABG Base Excess ABG Hemoglobin Oxyhemoglobin Sodium Potassium Chloride Carbon Dioxide BUN Creatinine Glucose POC Glucose 196 H 231 H 159 H Hemoglobin A1c Lactic Acid Calcium Magnesium Ferritin AST ALT Alkaline Phosphatase Lactate Dehydrogenase C-Reactive Protein Total Protein Albumin Vancomycin Trough Random Vancomycin Miscellaneous Test 01/26/20 01/26/20 01/26/20 05:40 05:40 05:40 WBC 16.4 H RBC Hgb Hct MCV MCH 26 L RDW 12.9 L Lymph % (Auto) Lymph # Seg Neutrophils % Seg Neuts % (Manual) 90.0 H Lymphocytes % (Manual) 1.0 L Nucleated RBC % 1.0 H Seg Neutrophils # Seg Neutrophils # Man 14.8 H Lymphocytes # (Manual) 0.2 L PT INR D-Dimer 2624.11 H ABG pH ABG pO2 ABG HCO3 ABG O2 Saturation ABG Base Excess ABG Hemoglobin Oxyhemoglobin Sodium 135 L Potassium 2.7 L* Chloride Carbon Dioxide 21 L BUN Creatinine Glucose 132 H POC Glucose Hemoglobin A1c Lactic Acid Calcium 8.0 L Magnesium Ferritin AST ALT Alkaline Phosphatase Lactate Dehydrogenase C-Reactive Protein Total Protein Albumin Vancomycin Trough Random Vancomycin Miscellaneous Test 01/26/20 01/26/20 01/26/20 05:40 05:40 08:58 WBC RBC Hgb Hct MCV MCH RDW Lymph % (Auto) Lymph # Seg Neutrophils % Seg Neuts % (Manual) Lymphocytes % (Manual) Nucleated RBC % Seg Neutrophils # Seg Neutrophils # Man Lymphocytes # (Manual) PT INR D-Dimer ABG pH ABG pO2 ABG HCO3 ABG O2 Saturation ABG Base Excess ABG Hemoglobin Oxyhemoglobin Sodium Potassium Chloride Carbon Dioxide BUN Creatinine Glucose POC Glucose 131 H Hemoglobin A1c Lactic Acid Calcium Magnesium Ferritin 2758.0 H AST ALT Alkaline Phosphatase Lactate Dehydrogenase C-Reactive Protein 26.90 H Total Protein Albumin Vancomycin Trough Random Vancomycin Miscellaneous Test 01/26/20 01/26/20 01/26/20 13:00 16:30 21:22 WBC RBC Hgb Hct MCV MCH RDW Lymph % (Auto) Lymph # Seg Neutrophils % Seg Neuts % (Manual) Lymphocytes % (Manual) Nucleated RBC % Seg Neutrophils # Seg Neutrophils # Man Lymphocytes # (Manual) PT INR D-Dimer ABG pH ABG pO2 ABG HCO3 ABG O2 Saturation ABG Base Excess ABG Hemoglobin Oxyhemoglobin Sodium Potassium Chloride Carbon Dioxide BUN Creatinine Glucose POC Glucose 136 H 146 H 139 H Hemoglobin A1c Lactic Acid Calcium Magnesium Ferritin AST ALT Alkaline Phosphatase Lactate Dehydrogenase C-Reactive Protein Total Protein Albumin Vancomycin Trough Random Vancomycin Miscellaneous Test 01/27/20 01/27/20 01/27/20 05:14 07:37 12:05 WBC RBC Hgb Hct MCV MCH RDW Lymph % (Auto) Lymph # Seg Neutrophils % Seg Neuts % (Manual) Lymphocytes % (Manual) Nucleated RBC % Seg Neutrophils # Seg Neutrophils # Man Lymphocytes # (Manual) PT INR D-Dimer ABG pH ABG pO2 ABG HCO3 ABG O2 Saturation ABG Base Excess ABG Hemoglobin Oxyhemoglobin Sodium 135 L Potassium 3.4 L D Chloride Carbon Dioxide 17 L BUN 24 H Creatinine 1.4 H D Glucose 143 H POC Glucose 133 H 141 H Hemoglobin A1c Lactic Acid Calcium 7.6 L Magnesium Ferritin AST ALT Alkaline Phosphatase Lactate Dehydrogenase C-Reactive Protein Total Protein Albumin Vancomycin Trough Random Vancomycin Miscellaneous Test 01/27/20 01/27/20 01/27/20 17:37 22:14 23:53 WBC RBC Hgb Hct MCV MCH RDW Lymph % (Auto) Lymph # Seg Neutrophils % Seg Neuts % (Manual) Lymphocytes % (Manual) Nucleated RBC % Seg Neutrophils # Seg Neutrophils # Man Lymphocytes # (Manual) PT INR D-Dimer 2675.43 H ABG pH ABG pO2 ABG HCO3 ABG O2 Saturation ABG Base Excess ABG Hemoglobin Oxyhemoglobin Sodium Potassium Chloride Carbon Dioxide BUN Creatinine Glucose POC Glucose 153 H 124 H Hemoglobin A1c Lactic Acid Calcium Magnesium Ferritin AST ALT Alkaline Phosphatase Lactate Dehydrogenase C-Reactive Protein Total Protein Albumin Vancomycin Trough Random Vancomycin Miscellaneous Test 01/27/20 01/27/20 01/28/20 23:53 23:53 08:36 WBC RBC Hgb Hct MCV MCH RDW Lymph % (Auto) Lymph # Seg Neutrophils % Seg Neuts % (Manual) Lymphocytes % (Manual) Nucleated RBC % Seg Neutrophils # Seg Neutrophils # Man Lymphocytes # (Manual) PT INR D-Dimer ABG pH ABG pO2 ABG HCO3 ABG O2 Saturation ABG Base Excess ABG Hemoglobin Oxyhemoglobin Sodium Potassium Chloride Carbon Dioxide BUN Creatinine Glucose POC Glucose 165 H Hemoglobin A1c Lactic Acid Calcium Magnesium Ferritin 3523.0 H AST ALT Alkaline Phosphatase Lactate Dehydrogenase 1132 H C-Reactive Protein 15.60 H Total Protein Albumin Vancomycin Trough Random Vancomycin Miscellaneous Test 01/28/20 01/28/20 01/28/20 10:00 10:00 10:00 WBC RBC Hgb Hct MCV MCH RDW Lymph % (Auto) Lymph # Seg Neutrophils % Seg Neuts % (Manual) Lymphocytes % (Manual) Nucleated RBC % Seg Neutrophils # Seg Neutrophils # Man Lymphocytes # (Manual) PT INR D-Dimer ABG pH ABG pO2 ABG HCO3 ABG O2 Saturation ABG Base Excess ABG Hemoglobin Oxyhemoglobin Sodium 131 L Potassium 3.5 L Chloride Carbon Dioxide 16 L BUN 51 H Creatinine 3.5 H D Glucose 180 H POC Glucose Hemoglobin A1c Lactic Acid Calcium 7.5 L Magnesium Ferritin AST ALT Alkaline Phosphatase Lactate Dehydrogenase C-Reactive Protein Total Protein Albumin Vancomycin Trough Random Vancomycin 65.8 H Miscellaneous Test Flexitest 1 H 01/28/20 01/28/20 01/28/20 12:42 17:27 22:06 WBC RBC Hgb Hct MCV MCH RDW Lymph % (Auto) Lymph # Seg Neutrophils % Seg Neuts % (Manual) Lymphocytes % (Manual) Nucleated RBC % Seg Neutrophils # Seg Neutrophils # Man Lymphocytes # (Manual) PT INR D-Dimer ABG pH ABG pO2 ABG HCO3 ABG O2 Saturation ABG Base Excess ABG Hemoglobin Oxyhemoglobin Sodium Potassium Chloride Carbon Dioxide BUN Creatinine Glucose POC Glucose 188 H 161 H 158 H Hemoglobin A1c Lactic Acid Calcium Magnesium Ferritin AST ALT Alkaline Phosphatase Lactate Dehydrogenase C-Reactive Protein Total Protein Albumin Vancomycin Trough Random Vancomycin Miscellaneous Test 01/29/20 01/29/20 01/29/20 07:29 07:29 08:20 WBC 17.0 H RBC Hgb 9.6 L Hct 29.5 L MCV MCH 26 L RDW Lymph % (Auto) Lymph # Seg Neutrophils % Seg Neuts % (Manual) Lymphocytes % (Manual) Nucleated RBC % Seg Neutrophils # Seg Neutrophils # Man Lymphocytes # (Manual) PT INR D-Dimer ABG pH ABG pO2 ABG HCO3 ABG O2 Saturation ABG Base Excess ABG Hemoglobin Oxyhemoglobin Sodium 133 L Potassium Chloride Carbon Dioxide 15 L BUN 69 H Creatinine 4.1 H Glucose 161 H POC Glucose 170 H Hemoglobin A1c Lactic Acid Calcium 7.6 L Magnesium Ferritin AST ALT Alkaline Phosphatase Lactate Dehydrogenase C-Reactive Protein Total Protein Albumin Vancomycin Trough Random Vancomycin Miscellaneous Test 01/29/20 01/29/20 01/29/20 11:54 11:54 11:54 WBC RBC Hgb Hct MCV MCH RDW Lymph % (Auto) Lymph # Seg Neutrophils % Seg Neuts % (Manual) Lymphocytes % (Manual) Nucleated RBC % Seg Neutrophils # Seg Neutrophils # Man Lymphocytes # (Manual) PT INR D-Dimer 1499 H ABG pH ABG pO2 ABG HCO3 ABG O2 Saturation ABG Base Excess ABG Hemoglobin Oxyhemoglobin Sodium Potassium Chloride Carbon Dioxide BUN Creatinine Glucose POC Glucose Hemoglobin A1c Lactic Acid Calcium Magnesium Ferritin > 2000.0 H AST ALT Alkaline Phosphatase Lactate Dehydrogenase 946 H C-Reactive Protein 13.30 H Total Protein Albumin Vancomycin Trough Random Vancomycin Miscellaneous Test 01/29/20 01/29/20 01/29/20 12:55 16:19 22:13 WBC RBC Hgb Hct MCV MCH RDW Lymph % (Auto) Lymph # Seg Neutrophils % Seg Neuts % (Manual) Lymphocytes % (Manual) Nucleated RBC % Seg Neutrophils # Seg Neutrophils # Man Lymphocytes # (Manual) PT INR D-Dimer ABG pH ABG pO2 ABG HCO3 ABG O2 Saturation ABG Base Excess ABG Hemoglobin Oxyhemoglobin Sodium Potassium Chloride Carbon Dioxide BUN Creatinine Glucose POC Glucose 142 H 146 H 142 H Hemoglobin A1c Lactic Acid Calcium Magnesium Ferritin AST ALT Alkaline Phosphatase Lactate Dehydrogenase C-Reactive Protein Total Protein Albumin Vancomycin Trough Random Vancomycin Miscellaneous Test 01/30/20 01/30/20 01/30/20 05:19 05:19 08:04 WBC RBC Hgb Hct MCV MCH RDW Lymph % (Auto) Lymph # Seg Neutrophils % Seg Neuts % (Manual) Lymphocytes % (Manual) Nucleated RBC % Seg Neutrophils # Seg Neutrophils # Man Lymphocytes # (Manual) PT INR D-Dimer ABG pH ABG pO2 ABG HCO3 ABG O2 Saturation ABG Base Excess ABG Hemoglobin Oxyhemoglobin Sodium 134 L Potassium Chloride Carbon Dioxide 14 L BUN 87 H Creatinine 4.4 H Glucose 172 H POC Glucose 153 H Hemoglobin A1c Lactic Acid Calcium 7.6 L Magnesium Ferritin AST 152 H ALT 124 H Alkaline Phosphatase Lactate Dehydrogenase C-Reactive Protein Total Protein 5.5 L Albumin 1.8 L Vancomycin Trough 45.4 H Random Vancomycin Miscellaneous Test 01/30/20 01/30/20 01/30/20 12:21 16:51 22:54 WBC RBC Hgb Hct MCV MCH RDW Lymph % (Auto) Lymph # Seg Neutrophils % Seg Neuts % (Manual) Lymphocytes % (Manual) Nucleated RBC % Seg Neutrophils # Seg Neutrophils # Man Lymphocytes # (Manual) PT INR D-Dimer ABG pH ABG pO2 ABG HCO3 ABG O2 Saturation ABG Base Excess ABG Hemoglobin Oxyhemoglobin Sodium Potassium Chloride Carbon Dioxide BUN Creatinine Glucose POC Glucose 147 H 119 H 129 H Hemoglobin A1c Lactic Acid Calcium Magnesium Ferritin AST ALT Alkaline Phosphatase Lactate Dehydrogenase C-Reactive Protein Total Protein Albumin Vancomycin Trough Random Vancomycin Miscellaneous Test 01/31/20 01/31/20 01/31/20 03:49 03:49 03:49 WBC RBC Hgb Hct MCV MCH RDW Lymph % (Auto) Lymph # Seg Neutrophils % Seg Neuts % (Manual) Lymphocytes % (Manual) Nucleated RBC % Seg Neutrophils # Seg Neutrophils # Man Lymphocytes # (Manual) PT INR D-Dimer 801.37 H ABG pH ABG pO2 ABG HCO3 ABG O2 Saturation ABG Base Excess ABG Hemoglobin Oxyhemoglobin Sodium 134 L Potassium Chloride Carbon Dioxide 13 L BUN 97 H Creatinine 4.8 H Glucose 123 H POC Glucose Hemoglobin A1c Lactic Acid Calcium 7.6 L Magnesium Ferritin 3101.0 H AST 112 H ALT 112 H Alkaline Phosphatase 145 H Lactate Dehydrogenase 896 H C-Reactive Protein 11.10 H Total Protein 5.5 L Albumin 1.7 L Vancomycin Trough Random Vancomycin Miscellaneous Test 01/31/20 01/31/20 01/31/20 03:49 08:00 11:48 WBC 16.1 H RBC Hgb Hct MCV MCH 25 L RDW Lymph % (Auto) Lymph # Seg Neutrophils % Seg Neuts % (Manual) Lymphocytes % (Manual) Nucleated RBC % Seg Neutrophils # Seg Neutrophils # Man Lymphocytes # (Manual) PT INR D-Dimer ABG pH ABG pO2 ABG HCO3 ABG O2 Saturation ABG Base Excess ABG Hemoglobin Oxyhemoglobin Sodium Potassium Chloride Carbon Dioxide BUN Creatinine Glucose POC Glucose 133 H 136 H Hemoglobin A1c Lactic Acid Calcium Magnesium Ferritin AST ALT Alkaline Phosphatase Lactate Dehydrogenase C-Reactive Protein Total Protein Albumin Vancomycin Trough Random Vancomycin Miscellaneous Test 01/31/20 01/31/20 01/31/20 16:14 21:37 22:35 WBC RBC Hgb Hct MCV MCH RDW Lymph % (Auto) Lymph # Seg Neutrophils % Seg Neuts % (Manual) Lymphocytes % (Manual) Nucleated RBC % Seg Neutrophils # Seg Neutrophils # Man Lymphocytes # (Manual) PT INR D-Dimer ABG pH 7.226 L ABG pO2 77.9 L ABG HCO3 15.2 L ABG O2 Saturation 93.5 L ABG Base Excess -11.6 L ABG Hemoglobin Oxyhemoglobin 91.5 L Sodium Potassium Chloride Carbon Dioxide BUN Creatinine Glucose POC Glucose 151 H 179 H Hemoglobin A1c Lactic Acid Calcium Magnesium Ferritin AST ALT Alkaline Phosphatase Lactate Dehydrogenase C-Reactive Protein Total Protein Albumin Vancomycin Trough Random Vancomycin Miscellaneous Test 02/01/20 02/01/20 02/01/20 03:49 03:49 04:30 WBC 19.3 H RBC 3.53 L Hgb 9.0 L Hct 28.1 L MCV MCH 26 L RDW Lymph % (Auto) Lymph # Seg Neutrophils % Seg Neuts % (Manual) Lymphocytes % (Manual) Nucleated RBC % Seg Neutrophils # Seg Neutrophils # Man Lymphocytes # (Manual) PT INR D-Dimer ABG pH 7.290 L ABG pO2 120.0 H ABG HCO3 14.2 L ABG O2 Saturation ABG Base Excess -11.2 L ABG Hemoglobin 9.3 L Oxyhemoglobin Sodium 135 L Potassium Chloride Carbon Dioxide 13 L BUN 79 H Creatinine 4.1 H Glucose 198 H POC Glucose Hemoglobin A1c Lactic Acid Calcium 7.0 L Magnesium Ferritin AST ALT Alkaline Phosphatase Lactate Dehydrogenase C-Reactive Protein Total Protein Albumin Vancomycin Trough Random Vancomycin Miscellaneous Test 02/01/20 02/01/20 02/02/20 08:13 11:29 00:05 WBC RBC Hgb Hct MCV MCH RDW Lymph % (Auto) Lymph # Seg Neutrophils % Seg Neuts % (Manual) Lymphocytes % (Manual) Nucleated RBC % Seg Neutrophils # Seg Neutrophils # Man Lymphocytes # (Manual) PT INR D-Dimer ABG pH ABG pO2 ABG HCO3 ABG O2 Saturation ABG Base Excess ABG Hemoglobin Oxyhemoglobin Sodium Potassium Chloride Carbon Dioxide BUN Creatinine Glucose POC Glucose 153 H 181 H 214 H Hemoglobin A1c Lactic Acid Calcium Magnesium Ferritin AST ALT Alkaline Phosphatase Lactate Dehydrogenase C-Reactive Protein Total Protein Albumin Vancomycin Trough Random Vancomycin Miscellaneous Test 02/02/20 02/02/20 02/02/20 04:17 04:30 04:30 WBC RBC Hgb Hct MCV MCH RDW Lymph % (Auto) Lymph # Seg Neutrophils % Seg Neuts % (Manual) Lymphocytes % (Manual) Nucleated RBC % Seg Neutrophils # Seg Neutrophils # Man Lymphocytes # (Manual) PT INR D-Dimer 795.93 H ABG pH ABG pO2 ABG HCO3 ABG O2 Saturation ABG Base Excess -3.0 L ABG Hemoglobin 8.5 L Oxyhemoglobin Sodium Potassium Chloride Carbon Dioxide BUN Creatinine Glucose POC Glucose Hemoglobin A1c Lactic Acid Calcium Magnesium Ferritin 1978.0 H AST ALT Alkaline Phosphatase Lactate Dehydrogenase C-Reactive Protein Total Protein Albumin Vancomycin Trough Random Vancomycin Miscellaneous Test 02/02/20 02/02/2002/01/20 04:30 04:30 05:34 WBC 17.3 H RBC 3.24 L Hgb 8.4 L Hct 24.9 L MCV 77 L MCH 26 L RDW Lymph % (Auto) Lymph # Seg Neutrophils % Seg Neuts % (Manual) Lymphocytes % (Manual) Nucleated RBC % Seg Neutrophils # Seg Neutrophils # Man Lymphocytes # (Manual) PT INR D-Dimer ABG pH ABG pO2 ABG HCO3 ABG O2 Saturation ABG Base Excess ABG Hemoglobin Oxyhemoglobin Sodium Potassium Chloride Carbon Dioxide 17 L BUN 61 H Creatinine 4.1 H Glucose 244 H POC Glucose 274 H Hemoglobin A1c Lactic Acid Calcium 7.2 L Magnesium Ferritin AST ALT Alkaline Phosphatase Lactate Dehydrogenase 841 H C-Reactive Protein 11.50 H Total Protein Albumin Vancomycin Trough Random Vancomycin Miscellaneous Test 02/02/20 02/02/20 02/02/20 12:26 18:06 23:37 WBC RBC Hgb Hct MCV MCH RDW Lymph % (Auto) Lymph # Seg Neutrophils % Seg Neuts % (Manual) Lymphocytes % (Manual) Nucleated RBC % Seg Neutrophils # Seg Neutrophils # Man Lymphocytes # (Manual) PT INR D-Dimer ABG pH ABG pO2 ABG HCO3 ABG O2 Saturation ABG Base Excess ABG Hemoglobin Oxyhemoglobin Sodium Potassium Chloride Carbon Dioxide BUN Creatinine Glucose POC Glucose 254 H 285 H 239 H Hemoglobin A1c Lactic Acid Calcium Magnesium Ferritin AST ALT Alkaline Phosphatase Lactate Dehydrogenase C-Reactive Protein Total Protein Albumin Vancomycin Trough Random Vancomycin Miscellaneous Test 02/03/20 02/03/20 02/03/20 04:40 04:56 10:41 WBC RBC Hgb Hct MCV MCH RDW Lymph % (Auto) Lymph # Seg Neutrophils % Seg Neuts % (Manual) Lymphocytes % (Manual) Nucleated RBC % Seg Neutrophils # Seg Neutrophils # Man Lymphocytes # (Manual) PT INR D-Dimer ABG pH 7.520 H ABG pO2 73.8 L 92.5 H ABG HCO3 ABG O2 Saturation ABG Base Excess ABG Hemoglobin 8.6 L 7.9 L Oxyhemoglobin Sodium Potassium Chloride Carbon Dioxide BUN Creatinine Glucose POC Glucose 227 H Hemoglobin A1c Lactic Acid Calcium Magnesium Ferritin AST ALT Alkaline Phosphatase Lactate Dehydrogenase C-Reactive Protein Total Protein Albumin Vancomycin Trough Random Vancomycin Miscellaneous Test 02/03/20 02/03/20 02/03/20 12:09 17:23 23:41 WBC RBC Hgb Hct MCV MCH RDW Lymph % (Auto) Lymph # Seg Neutrophils % Seg Neuts % (Manual) Lymphocytes % (Manual) Nucleated RBC % Seg Neutrophils # Seg Neutrophils # Man Lymphocytes # (Manual) PT INR D-Dimer ABG pH ABG pO2 ABG HCO3 ABG O2 Saturation ABG Base Excess ABG Hemoglobin Oxyhemoglobin Sodium Potassium Chloride Carbon Dioxide BUN Creatinine Glucose POC Glucose 268 H 255 H 239 H Hemoglobin A1c Lactic Acid Calcium Magnesium Ferritin AST ALT Alkaline Phosphatase Lactate Dehydrogenase C-Reactive Protein Total Protein Albumin Vancomycin Trough Random Vancomycin Miscellaneous Test 02/04/20 02/04/20 02/04/20 04:31 04:42 04:42 WBC RBC Hgb Hct MCV MCH RDW Lymph % (Auto) Lymph # Seg Neutrophils % Seg Neuts % (Manual) Lymphocytes % (Manual) Nucleated RBC % Seg Neutrophils # Seg Neutrophils # Man Lymphocytes # (Manual) PT INR D-Dimer 694.19 H ABG pH ABG pO2 ABG HCO3 ABG O2 Saturation ABG Base Excess ABG Hemoglobin Oxyhemoglobin Sodium Potassium Chloride Carbon Dioxide BUN Creatinine Glucose POC Glucose 216 H Hemoglobin A1c Lactic Acid Calcium Magnesium Ferritin 1660.0 H AST ALT Alkaline Phosphatase Lactate Dehydrogenase C-Reactive Protein Total Protein Albumin Vancomycin Trough Random Vancomycin Miscellaneous Test 02/04/20 02/04/20 02/04/20 04:42 04:42 12:03 WBC 13.7 H RBC 2.92 L Hgb 7.4 L Hct 23.0 L MCV MCH 25 L RDW Lymph % (Auto) Lymph # Seg Neutrophils % Seg Neuts % (Manual) Lymphocytes % (Manual) Nucleated RBC % Seg Neutrophils # Seg Neutrophils # Man Lymphocytes # (Manual) PT INR D-Dimer ABG pH ABG pO2 ABG HCO3 ABG O2 Saturation ABG Base Excess ABG Hemoglobin Oxyhemoglobin Sodium Potassium Chloride Carbon Dioxide 17 L BUN 80 H Creatinine 5.8 H Glucose 209 H POC Glucose 248 H Hemoglobin A1c Lactic Acid Calcium 8.3 L D Magnesium Ferritin AST ALT Alkaline Phosphatase Lactate Dehydrogenase 972 H C-Reactive Protein 6.20 H Total Protein Albumin Vancomycin Trough Random Vancomycin Miscellaneous Test 02/04/20 02/04/20 02/04/20 17:42 23:48 Unknown WBC RBC Hgb Hct MCV MCH RDW Lymph % (Auto) Lymph # Seg Neutrophils % Seg Neuts % (Manual) Lymphocytes % (Manual) Nucleated RBC % Seg Neutrophils # Seg Neutrophils # Man Lymphocytes # (Manual) PT INR D-Dimer ABG pH 7.484 H ABG pO2 104.8 H ABG HCO3 ABG O2 Saturation ABG Base Excess ABG Hemoglobin 9.5 L Oxyhemoglobin Sodium Potassium Chloride Carbon Dioxide BUN Creatinine Glucose POC Glucose 209 H 166 H Hemoglobin A1c Lactic Acid Calcium Magnesium Ferritin AST ALT Alkaline Phosphatase Lactate Dehydrogenase C-Reactive Protein Total Protein Albumin Vancomycin Trough Random Vancomycin Miscellaneous Test 02/05/20 02/05/20 02/05/20 03:51 03:51 05:43 WBC 13.9 H RBC 2.98 L Hgb 7.6 L Hct 23.4 L MCV MCH 26 L RDW Lymph % (Auto) Lymph # Seg Neutrophils % Seg Neuts % (Manual) Lymphocytes % (Manual) Nucleated RBC % Seg Neutrophils # Seg Neutrophils # Man Lymphocytes # (Manual) PT INR D-Dimer ABG pH ABG pO2 ABG HCO3 ABG O2 Saturation ABG Base Excess ABG Hemoglobin Oxyhemoglobin Sodium Potassium Chloride Carbon Dioxide 19 L BUN 65 H Creatinine 5.9 H Glucose 167 H POC Glucose 148 H Hemoglobin A1c Lactic Acid Calcium 8.3 L Magnesium Ferritin AST ALT Alkaline Phosphatase Lactate Dehydrogenase C-Reactive Protein Total Protein Albumin Vancomycin Trough Random Vancomycin Miscellaneous Test 02/05/20 02/05/20 12:34 Unknown WBC RBC Hgb Hct MCV MCH RDW Lymph % (Auto) Lymph # Seg Neutrophils % Seg Neuts % (Manual) Lymphocytes % (Manual) Nucleated RBC % Seg Neutrophils # Seg Neutrophils # Man Lymphocytes # (Manual) PT INR D-Dimer ABG pH 7.497 H ABG pO2 111.6 H ABG HCO3 ABG O2 Saturation ABG Base Excess ABG Hemoglobin 7.4 L Oxyhemoglobin Sodium Potassium Chloride Carbon Dioxide BUN Creatinine Glucose POC Glucose 267 H Hemoglobin A1c Lactic Acid Calcium Magnesium Ferritin AST ALT Alkaline Phosphatase Lactate Dehydrogenase C-Reactive Protein Total Protein Albumin Vancomycin Trough Random Vancomycin Miscellaneous Test Allied health notes reviewed: nursing
--- NOTE | 2020-02-05 15:28 | Progress Note ---
Assessment and Plan Cultures: Blood culture 01/17/2020 no growth to date Urine culture 01/17/2020 no growth to date Sputum normal resp dulce OR culture no growth today A/P: 29-year-old female past medical history diabetes admitted with acute sepsis secondary to right foot wound versus pneumonia. #Acute sepsis: noted low grade fever, now leukoctosis improving. Secondary to her left tight abscess versus pneumonia. #Severe COVID-19 pneumonia: Coronavirus testing has returned positive. Very high inflammatory markers - ferritin [id number]. Markers down. IL-6 elevated 105. S/p plaquenil Day 5 of 5 #Acute respiratory failure:self extubated #Left thigh abscess: surgery on board s/p I+D #Right foot wound: Will need MRI when more stable to rule out osteomyelitis of the toe. Continue empiric vancomycin and cefepime for now. #Diabetes: uncontrolled #CIPRIANO: renally adjust abx, worsening on HD #Morbid obesity Recs: Continue zosyn renally adjusted Day Continuos pulse oximetry ContinueCOVID isolationprecautions per [facility] protocol May need home O2 supplementation will follow Janett Duffy MD Infectious Diseases [employer] [facility], [place], [facility] ([facility]) M [phone] O [phone] Subjective Date of service: 02/05/20 Principal diagnosis: Severe Sepsis; LEV PNA; DM II; Morbid obesity; R/O COVID-19 infection Interval history: Alert self extubated on NC 02 temp 100.1 Objective - Exam Narrative Exam: Constitutional: alert in NAD on NC Oral: limited due to lack opf PPE Cardiovascular: Respiratory: GI: Soft, obese Musculoskeletal: Right hallux wound, left foot callus. Left thigh large induration, skin sloughing Skin: Hem/Lymphatic: Psych: alert Neurological: alert - Constitutional Vitals: Vital Signs Temp Pulse Resp BP Pulse Ox 100.1 F H 113 H 30 H 154/85 100 02/05/20 08:00 02/05/20 09:07 02/05/20 08:45 02/05/20 09:07 02/05/20 09:10 Temperature -Last 24 Hours Temperature 100.1 F Temperature 100 F Temperature 99.6 F Temperature 100 F Temperature 99.0 F Temperature 98.4 F - Labs CBC & Chem 7: 02/05/20 03:51 02/05/20 03:51 Labs: Abnormal lab results 02/04/20 02/04/20 02/05/20 Range/Units 17:42 23:48 03:51 WBC 13.9 H (4.5-11.0) K/mm3 RBC 2.98 L (3.65-5.03) M/mm3 Hgb 7.6 L (10.1-14.3) gm/dl Hct 23.4 L (30.3-42.9) % MCH 26 L (28-32) pg ABG pH (7.350-7.450) pH Units ABG pO2 (80.0-90.0) mm Hg ABG Hemoglobin (12.0-16.0) gm/dl Carbon Dioxide (22-30) mmol/L BUN (7-17) mg/dL Creatinine (0.7-1.2) mg/dL Glucose (65-100) mg/dL POC Glucose 209 H 166 H (70-105) Calcium (8.4-10.2) mg/dL 02/05/20 02/05/20 02/05/20 Range/Units 03:51 05:43 12:34 WBC (4.5-11.0) K/mm3 RBC (3.65-5.03) M/mm3 Hgb (10.1-14.3) gm/dl Hct (30.3-42.9) % MCH (28-32) pg ABG pH (7.350-7.450) pH Units ABG pO2 (80.0-90.0) mm Hg ABG Hemoglobin (12.0-16.0) gm/dl Carbon Dioxide 19 L (22-30) mmol/L BUN 65 H (7-17) mg/dL Creatinine 5.9 H (0.7-1.2) mg/dL Glucose 167 H (65-100) mg/dL POC Glucose 148 H 267 H (70-105) Calcium 8.3 L (8.4-10.2) mg/dL 02/05/20 Range/Units Unknown WBC (4.5-11.0) K/mm3 RBC (3.65-5.03) M/mm3 Hgb (10.1-14.3) gm/dl Hct (30.3-42.9) % MCH (28-32) pg ABG pH 7.497 H (7.350-7.450) pH Units ABG pO2 111.6 H (80.0-90.0) mm Hg ABG Hemoglobin 7.4 L (12.0-16.0) gm/dl Carbon Dioxide (22-30) mmol/L BUN (7-17) mg/dL Creatinine (0.7-1.2) mg/dL Glucose (65-100) mg/dL POC Glucose (70-105) Calcium (8.4-10.2) mg/dL
--- NOTE | 2020-02-05 16:35 | Progress Note ---
Assessment and Plan - Patient Problems (1) Acute kidney injury (CIPRIANO) with acute tubular necrosis (ATN) Current Visit: Yes Status: Acute Plan to address problem: No signs of renal recovery noted at present time. Will plan to maintain on MWF inpatient HD schedule, and assess daily for need of extra isolated UF sessions in order to optimize her volume control. (2) Acute respiratory failure with hypoxia Current Visit: Yes Status: Acute Plan to address problem: Patient self extubated. Management per pulmonology. Will do extra isolated UF session today to further optimize her volume/respiratory status. (3) Pneumonia due to COVID-19 virus Current Visit: Yes Status: Acute Plan to address problem: Management per ID recommendations. (4) Type 2 diabetes mellitus with hyperglycemia Current Visit: Yes Status: Acute Plan to address problem: DM management per primary attending Subjective Date of service: 02/05/20 Principal diagnosis: Severe Sepsis; LEV PNA; DM II; Morbid obesity; R/O COVID-19 infection Interval history: Patient self extubated. Plan for isolated UF session to optimize her volume status. Objective - Vital Signs Vital signs: Vital Signs - 12hr 02/05/20 02/05/20 02/05/20 04:45 04:52 05:00 Temperature Pulse Rate 77 85 84 Respiratory 30 H 29 H Rate Blood Pressure 121/63 121/63 120/62 O2 Sat by Pulse 100 100 100 Oximetry 02/05/20 02/05/20 02/05/20 05:15 05:30 05:45 Temperature Pulse Rate 79 80 79 Respiratory 29 H 24 29 H Rate Blood Pressure 123/64 124/67 130/66 O2 Sat by Pulse 100 100 100 Oximetry 02/05/20 02/05/20 02/05/20 06:00 06:15 06:30 Temperature Pulse Rate 77 82 78 Respiratory 29 H 30 H 30 H Rate Blood Pressure 128/64 127/62 126/62 O2 Sat by Pulse 100 100 100 Oximetry 02/05/20 02/05/20 02/05/20 06:45 07:00 07:15 Temperature Pulse Rate 79 85 75 Respiratory 30 H 27 H 30 H Rate Blood Pressure 123/63 120/61 113/65 O2 Sat by Pulse 100 100 100 Oximetry 02/05/20 02/05/20 02/05/20 07:30 07:45 08:00 Temperature 100.1 F H Pulse Rate 83 82 82 Respiratory 30 H 30 H 30 H Rate Blood Pressure 118/67 128/65 137/67 O2 Sat by Pulse 100 100 100 Oximetry 02/05/20 02/05/20 02/05/20 08:16 08:30 08:45 Temperature Pulse Rate 89 90 91 H Respiratory 26 H 30 H 30 H Rate Blood Pressure 138/61 130/60 137/68 O2 Sat by Pulse 100 100 100 Oximetry 02/05/20 02/05/20 02/05/20 09:00 09:07 09:10 Temperature Pulse Rate 147 H 113 H Respiratory 18 Rate Blood Pressure 137/68 154/85 O2 Sat by Pulse 100 100 100 Oximetry 02/05/20 02/05/20 02/05/20 09:15 09:30 09:45 Temperature Pulse Rate 105 H 110 H 111 H Respiratory 30 H 25 H 31 H Rate Blood Pressure 137/66 149/67 135/63 O2 Sat by Pulse 100 100 100 Oximetry 02/05/20 02/05/20 02/05/20 10:00 10:15 10:30 Temperature Pulse Rate 105 H 104 H 100 H Respiratory 31 H 30 H 31 H Rate Blood Pressure 133/67 130/66 125/66 O2 Sat by Pulse 100 100 100 Oximetry 02/05/20 02/05/20 02/05/20 10:45 11:00 11:15 Temperature Pulse Rate 96 H 95 H 92 H Respiratory 34 H 34 H 34 H Rate Blood Pressure 131/62 125/62 129/64 O2 Sat by Pulse 97 96 97 Oximetry 02/05/20 02/05/20 02/05/20 11:30 11:45 12:00 Temperature Pulse Rate 102 H 101 H 99 H Respiratory 24 28 H 17 Rate Blood Pressure 133/69 131/63 137/64 O2 Sat by Pulse 97 98 100 Oximetry 02/05/20 02/05/20 02/05/20 12:15 12:30 12:45 Temperature Pulse Rate 94 H 98 H 90 Respiratory 26 H 21 26 H Rate Blood Pressure 143/71 144/68 142/73 O2 Sat by Pulse 100 97 100 Oximetry 02/05/20 02/05/20 02/05/20 13:00 13:15 13:30 Temperature Pulse Rate 88 89 Respiratory 29 H 28 H Rate Blood Pressure 139/71 129/67 128/63 O2 Sat by Pulse 100 100 100 Oximetry 04/05/1902/05/20 02/05/20 13:45 14:00 14:15 Temperature Pulse Rate 91 H 96 H 91 H Respiratory 29 H 24 30 H Rate Blood Pressure 134/63 129/60 123/61 O2 Sat by Pulse 100 100 100 Oximetry 02/05/20 02/05/20 02/05/20 14:30 14:45 15:00 Temperature Pulse Rate 89 92 H 89 Respiratory 30 H 31 H 30 H Rate Blood Pressure 123/66 135/69 125/61 O2 Sat by Pulse 100 100 99 Oximetry 02/05/20 02/05/20 02/05/20 15:15 15:30 15:45 Temperature Pulse Rate 87 87 86 Respiratory 31 H 30 H 28 H Rate Blood Pressure 124/64 126/66 126/66 O2 Sat by Pulse 100 100 100 Oximetry 02/05/20 02/05/20 16:00 16:15 Temperature Pulse Rate 89 89 Respiratory 27 H 30 H Rate Blood Pressure 135/66 137/65 O2 Sat by Pulse 100 100 Oximetry - General Appearance General appearance: appears stated age EENT: ATNC Neck: no JVD Respiratory: Present: Decreased Breath Sounds Cardiology: regular Gastrointestinal: normal Integumentary: no rash Musculoskeletal: deferred - Lab 02/05/20 03:51 02/05/20 03:51 Most recent lab results ABG pH 7.497 pH Units (7.350-7.450) H 02/05/20 Unknown ABG pCO2 30.2 mm Hg 02/05/20 Unknown ABG pO2 111.6 mm Hg (80.0-90.0) H 02/05/20 Unknown ABG HCO3 22.9 mmol/L (20.0-26.0) 02/05/20 Unknown ABG O2 Saturation 98.3 % (95.0-99.0) 02/05/20 Unknown Calcium 8.3 mg/dL (8.4-10.2) L 02/05/20 03:51 Magnesium 1.50 mg/dL (1.7-2.3) L 01/17/20 22:58 Medications & Allergies - Medications Allergies/Adverse Reactions: Allergies No Known Allergies Allergy (Verified 09/12/18 00:37) Home Medications: Home Medications Medication Instructions Recorded Confirmed Last Taken Type glipiZIDE-Metformin 5-500 mg 500 mg PO BID 01/17/20 01/17/20 Unknown History Active Medications: Generic Name Dose Route Start Last Admin Trade Name Freq PRN Reason Stop Dose Admin Acetaminophen 650 mg 01/17/20 23:06 01/29/20 22:43 Tylenol PO 650 mg Q4H PRN Administration Pain MILD(1-3)/Fever >100.5/COLLINS Lipase/Protease/Amylase 1 each 02/01/20 09:[address] 10,500 Unit FEEDTUBE PRN PRN For Clogged Feeding Tube Dextrose 0 ml 01/17/20 23:06 D50w (25gm) Syringe IV Q30MIN PRN Hypoglycemia Protocol Famotidine 20 mg 01/24/20 10:00 02/05/20 09:07 Pepcid PO 20 mg QDAY COBY Administration Fentanyl 12.5 mcg 02/05/20 12:00 Sublimaze IV Q4H PRN AGITATION/ANXIETY Heparin Sodium (Porcine) 5,000 unit 01/18/20 06:00 02/05/20 13:09 Heparin SUB-Q 5,000 unit Q8HR COBY Administration Hydralazine HCl 10 mg 01/18/20 22:14 01/22/20 18:43 Apresoline IV 10 mg Q6H PRN Administration Hypertension Hydrophilic Ointment 1 applic 01/31/20 21:48 Vaseline Lip Therapy TP Q2HR PRN Dry Lips Norepinephrine 4 mg in 250 mls @ 7.5 mls/hr 01/31/20 23:45 02/02/20 20:15 Levophed Drip 4 Mg/Ns 250 Ml IV 0 mcg/min TITR COBY 0 mls/hr Titration Protocol 2 MCG/MIN Piperacillin Sod/Tazobactam Sod 2.25 gm in 50 mls @ 100 mls/hr 02/01/20 14:00 02/05/20 13:09 Zosyn/Ns 2.25 Gm/50ml IV 02/07/20 23:59 100 mls/hr Q8HR COBY Administration Protocol Sodium Chloride 100 mls @ 999 mls/hr 02/04/20 09:10 Nacl 0.9% IV KIRSTEN PRN Hypotension Sodium Chloride 100 mls @ 999 mls/hr 02/05/20 11:31 Nacl 0.9% IV KIRSTEN PRN Hypotension Insulin Human Isoph/Insulin Regular 20 unit 02/04/20 17:00 02/05/20 09:07 Humulin 70/30 SUB-Q 20 unit BIDDIAB COBY Administration Insulin Human Regular 0 units 02/01/20 12:00 02/05/20 12:25 Humulin R SUB-Q 6 units Q6HR COBY Administration Protocol Insulin Human Regular 5 units 02/04/20 12:00 02/05/20 12:25 Humulin R SUB-Q 5 units Q6HR COBY Administration Magnesium Hydroxide 30 ml 01/17/20 23:06 Milk Of Magnesia PO Q4H PRN Constipation Morphine Sulfate 2 mg 01/17/20 23:06 02/05/20 11:49 Morphine IV 2 mg Q4H PRN Administration Pain, Moderate (4-6) Multi-Ingred Cream/Lotion/Oil/Oint 1 applic 01/31/20 21:48 Artificial Tears Ophth Oint OU Q4HR PRN Dry Eye(s) Nystatin 1 applic 01/29/20 14:00 02/05/20 09:09 Nystop TP 1 applic BID COBY Administration Ondansetron HCl 4 mg 01/17/20 23:06 01/30/20 20:47 Zofran IV 4 mg Q8H PRN Administration Nausea And Vomiting Simple Syrup 15 ml 02/01/20 09:53 Simple Syrup FEEDTUBE PRN PRN Hypoglycemia Simple Syrup 30 ml 02/01/20 09:53 Simple Syrup FEEDTUBE PRN PRN Hypoglycemia Sodium Bicarbonate 325 mg 02/01/20 09:53 Sodium Bicarbonate FEEDTUBE PRN PRN For Clogged Feeding Tube Sodium Chloride 10 ml 01/18/20 10:00 02/05/20 09:08 Sodium Chloride Flush Syringe 10 Ml IV 10 ml BID COBY Administration Sodium Chloride 10 ml 01/17/20 23:06 02/04/20 05:07 Sodium Chloride Flush Syringe 10 Ml IV 10 ml PRN PRN Administration LINE FLUSH
--- NOTE | 2020-02-05 17:10 | Progress Note ---
Assessment and Plan Assessment and plan: 29-year-old female with known history of diabetes mellitus presenting to the emergency room today complaining of pain on the right big toe. Patient had an injury to the right big toe about 2 to 3 weeks ago when an object fell on the toe. She has gone to an urgent care facility where she was given some antibiotics namely Bactrim to the right big toe wound. She has noticed that the wound has not improved and she has been having progressive pain. She denies any fever or chills, no nausea vomiting, no cough or shortness of breath, no chest pain. She denies any sick contacts and no recent travel. Work-up in the emergency room reveals hyperglycemia chest x-ray also reveals a left-sided pneumonia with accompanying sepsis. Patient started on empiric IV antibiotics. She is also given a tetanus vacc ination. Per the ED doctor the wound itself did not appear overtly superinfected. Although however the patient was tachycardic and febrile and as part of sepsis work-up as her labs indicated hyperglycemia with pseudohyponatremia, minimal anion gap acidosis, and a left-sided pulmonary infiltrate. Given the magnitude of her abnormal vital signs, concomitant diabetes, metabolic derangement, daily maciel meets criteria for hospitalization. We will treat her empirically for community-acquired pneumonia. She does not endorse any sick contacts or exposures to individuals with coronavirus. Nevertheless her test was sent and patient returned COVID positive. January 24 the patient results for COVID 19 came back positive. 01/28: In addition to treatment as noted below patient was noted to have indura cruz area in the left thigh, Concerning for abscess development. Will obtain CT of the lower extremity 01/29: Patient noted hypotensive. She is refusing her p.o. week to be placed she sustained a fall overnight while trying to walk to the bathroom. CT of the lower extremity still pending we will proceed with consult to surgeons. We will discontinue all blood pressure medications give a bolus of fluid while mindful of possible developing ARDS. We will also obtain repeated chest x-ray as patient appears more toxic today. 01/31: Patient reintubated about 30 minutes after surgical procedure due to decompensation with hypotension and hypoxemia despite 100% oxygen and CPAP. Patient remains currently on the vent. We will continue dialysis. While beef pluck trimmer assist with managing ventilator. We will continue to adjust blood sugar for better control. Patient is critically ill this has been conveyed to the family prior. 02/01: Mild improvement in inflammatory markers and chest x-ray. Otherwise patient still remains on mechanical ventilation still at high risk for ARDS mitigation processes are in place and plan. Continue aggressive management. She unfortunately still with low-grade intermittent fevers. Despite improvement in WBC. 02/02: Clinically stable wound VAC remains in place and functioning. Trial of CPAP today. Will recheck labs in a.m. inflammatory markers continue to improve ferritin is down to the 1900 range. 02/03: Inflammatory markers appear to be improving. There is some mild trickling down of hemoglobin we will continue to monitor this. Patient continues to tolerate dialysis. 02/04: Extubated, updated family. Continue aggressive management, wound care nurse dressed wound change dressing noted today good viable wound bed noted. As patient continues to improve we will consider transfer to [facility] in a.m. Infl ammatory markers now improving. COVID 19 induced pneumonia Acute on chronic respiratory failure with postoperative decompensation now requiring mechanical ventilation Acute metabolic encephalopathy Left thigh abscess status post I&D Multiple Organ Failure Severe Sepsis Diabetic foot wound nonhealing Morbid obesity hypoventilation syndrome Acute kidney injury secondary to vasomotor nephropathy Metabolic Acidosis Hypokalemia-resolved Presumed thigh abscess. Anemia Hyponatremia-resolving Diabetes mellitus with uncontrolled blood sugar Morbid obesity Hypertension monitor closely for septic shock Malnutrition: Decreased p.o. intake Severe Protein calorie ?Bundle Branch block- await EKG Plan -Continue current work-up as dictated by infectious disease doctors will include Plaquenil and zinc combination. -s/p extensive I&D of left thigh abscess with sepsis and showing signs of multisystem organ insufficiency requiring ventilator support, possible dialysis, and vasopressers. wound vac was placed with wound care nurse. Next vac change scheduled for Tuesday. Continue abx and supportive care. -right-sided common femoral catheter placed for dialysis. -Very high inflammatory markers - ferritin . Ferritin elevated, CRP/LDH improving. Risk for cytokine storm secondary to COVID and high risk for ARDS -Patient may need to be on BiPAP if respiratory status is not improving and she continues to get weaker. -Vancomycin has been discontinued. -Follow culture from surgical procedure -Continue isolation and droplet precautions. Continuous pulse oximetry and telemetry. -Tight diabetic control -To the wound care -MRI of the right foot outpatient deferred due to COVID 19 treatment and noneme rgent at this time -Replace electrolytes as needed -Obtain serial Ferritin, LDH, D-Dimer, CRP every 48h -Daily EKG - QT monitoring - stop plaqenil if QT interval >500 -Obtain IL-6 (sent out) to evaluate cytokine release syndrome due to COVID -Weight loss recommendations on discharge Family updated The high probability of a clinically significant, sudden or life threatening deterioration of the [pulmonary, renal, ] system(s) required my full and direct attention, intervention and personal management. The aggregate critical care time was [35] minutes. This time is in addition to time spent performing reported procedures but includes the following: [x] Data Review and interpretation [x] Patient assessment and monitoring of vital signs [x] Documentation [x] Medication orders and management History Interval history: Patient seen and examined remains, extubated, Hospitalist Physical - Physical exam Narrative exam: VITAL SIGNS: Reviewed. GENERAL: The patient appears normally developed, on mechanical ventilator Vital signs as documented. HEAD: No signs of head trauma. EYES: unable to examine MOUTH: orophyreanglea area normal CHEST: unable to examin, observed from window rise of chest wall CARDIAC: unable to examin, telemetry denotes, SR MUSCULOSKELETAL: dressing around site of I/D and wound VAC is in place Extremities without clubbing, cyanosis +edema. NEUROLOGIC EXAM: SEDATED Exam is limited due to PPE deficiency. - Constitutional Vitals: Temp Pulse Resp BP Pulse Ox 100.1 F H 89 30 H 137/65 100 02/05/20 08:00 02/05/20 16:15 02/05/20 16:15 02/05/20 16:15 02/05/20 16:15 General appearance: Present: no acute distress Results - Labs CBC & Chem 7: 02/05/20 03:51 02/05/20 03:51 Labs: Laboratory Last Values WBC 13.9 K/mm3 (4.5-11.0) H 02/05/20 03:51 RBC 2.98 M/mm3 (3.65-5.03) L 02/05/20 03:51 Hgb 7.6 gm/dl (10.1-14.3) L 02/05/20 03:51 Hct 23.4 % (30.3-42.9) L 02/05/20 03:51 MCV 79 fl (79-97) 02/05/20 03:51 MCH 26 pg (28-32) L 02/05/20 03:51 MCHC 33 % (30-34) 02/05/20 03:51 RDW 13.4 % (13.2-15.2) 02/05/20 03:51 Plt Count 184 K/mm3 (140-440) 02/05/20 03:51 Lymph % (Auto) 16.6 % (13.4-35.0) 01/18/20 08:30 [place] % (Auto) 2.8 % (0.0-7.3) 01/18/20 08:30 Eos % (Auto) 0.1 % (0.0-4.3) 01/18/20 08:30 Baso % (Auto) 0.4 % (0.0-1.8) 01/18/20 08:30 Lymph # 1.2 K/mm3 (1.2-5.4) 01/18/20 08:30 Greenlee # 0.2 K/mm3 (0.0-0.8) 01/18/20 08:30 Eos # 0.0 K/mm3 (0.0-0.4) 01/18/20 08:30 Baso # 0.0 K/mm3 (0.0-0.1) 01/18/20 08:30 Add Manual Diff Complete 01/26/20 05:40 Total Counted 100 01/26/20 05:40 Seg Neutrophils % [place] Operator 01/26/20 05:40 Seg Neuts % (Manual) 90.0 % (40.0-70.0) H 01/26/20 05:40 Band Neutrophils % 5.0 % 01/26/20 05:40 Lymphocytes % (Manual) 1.0 % (13.4-35.0) L 01/26/20 05:40 Reactive Lymphs % (Man) 0 % 01/26/20 05:40 Monocytes % (Manual) 2.0 % (0.0-7.3) 01/26/20 05:40 Eosinophils % (Manual) 2.0 % (0.0-4.3) 01/26/20 05:40 Basophils % (Manual) 0 % (0.0-1.8) 01/26/20 05:40 Metamyelocytes % 0 % 01/26/20 05:40 Myelocytes % 0 % 01/26/20 05:40 Promyelocytes % 0 % 01/26/20 05:40 Blast Cells % 0 % 01/26/20 05:40 Nucleated RBC % 1.0 % (0.0-0.9) H 01/26/20 05:40 Seg Neutrophils # 5.9 K/mm3 (1.8-7.7) 01/18/20 08:30 Seg Neutrophils # Man 14.8 K/mm3 (1.8-7.7) H 01/26/20 05:40 Band Neutrophils # 0.8 K/mm3 01/26/20 05:40 Lymphocytes # (Manual) 0.2 K/mm3 (1.2-5.4) L 01/26/20 05:40 Abs React Lymphs (Man) 0.0 K/mm3 01/26/20 05:40 Monocytes # (Manual) 0.3 K/mm3 (0.0-0.8) 01/26/20 05:40 Eosinophils # (Manual) 0.3 K/mm3 (0.0-0.4) 01/26/20 05:40 Basophils # (Manual) 0.0 K/mm3 (0.0-0.1) 01/26/20 05:40 Metamyelocytes # 0.0 K/mm3 01/26/20 05:40 Myelocytes # 0.0 K/mm3 01/26/20 05:40 Promyelocytes # 0.0 K/mm3 01/26/20 05:40 Blast Cells # 0.0 K/mm3 01/26/20 05:40 WBC Morphology Not Reportable 01/26/20 05:40 Hypersegmented Neuts Not Reportable 01/26/20 05:40 Hyposegmented Neuts Not Reportable 01/26/20 05:40 Hypogranular Neuts Not Reportable 01/26/20 05:40 Smudge Cells Not Reportable 01/26/20 05:40 Toxic Granulation Not Reportable 01/26/20 05:40 Toxic Vacuolation Not Reportable 01/26/20 05:40 Dohle Bodies Not Reportable 01/26/20 05:40 Pelger-Huet Anomaly Not Reportable 01/26/20 05:40 Barbie Rods Not Reportable 01/26/20 05:40 Platelet Estimate Consistent w auto 01/26/20 05:40 Clumped Platelets Not Reportable 01/26/20 05:40 Plt Clumps, EDTA Not Reportable 01/26/20 05:40 Large Platelets Not Reportable 01/26/20 05:40 Giant Platelets Not Reportable 01/26/20 05:40 Platelet Satelliting Not Reportable 01/26/20 05:40 Plt Morphology Comment Not Reportable 01/26/20 05:40 RBC Morphology Normal 01/26/20 05:40 Dimorphic RBCs Not Reportable 01/26/20 05:40 Polychromasia Not Reportable 01/26/20 05:40 Hypochromasia Not Reportable 01/26/20 05:40 Poikilocytosis Not Reportable 01/26/20 05:40 Anisocytosis Not Reportable 01/26/20 05:40 Microcytosis Not Reportable 01/26/20 05:40 Macrocytosis Not Reportable 01/26/20 05:40 Spherocytes Not Reportable 01/26/20 05:40 Pappenheimer Bodies Not Reportable 01/26/20 05:40 Sickle Cells Not Reportable 01/26/20 05:40 Target Cells Not Reportable 01/26/20 05:40 Tear Drop Cells Not Reportable 01/26/20 05:40 Ovalocytes Not Reportable 01/26/20 05:40 Helmet Cells Not Reportable 01/26/20 05:40 [place] Bodies Not Reportable 01/26/20 05:40 [place] Rings Not Reportable 01/26/20 05:40 [place] Cells Not Reportable 01/26/20 05:40 Bite Cells Not Reportable 01/26/20 05:40 Crenated Cell Not Reportable 01/26/20 05:40 Elliptocytes Not Reportable 01/26/20 05:40 Acanthocytes (Spur) Not Reportable 01/26/20 05:40 Rouleaux Not Reportable 01/26/20 05:40 Hemoglobin C Crystals Not Reportable 01/26/20 05:40 Schistocytes Not Reportable 01/26/20 05:40 Malaria parasites Not Reportable 01/26/20 05:40 ESR 70 mm/Hr (0-20) 01/17/20 22:58 Ras Bodies Not Reportable 01/26/20 05:40 Hem Pathologist Commnt No 01/26/20 05:40 PT 15.6 Sec. (12.2-14.9) H 01/17/20 18:28 INR 1.22 (0.87-1.13) H 01/17/20 18:28 D-Dimer 694.19 ng/mlDDU (0-234) H 02/04/20 04:42 ABG pH 7.497 pH Units (7.350-7.450) H 02/05/20 Unknown ABG pCO2 30.2 mm Hg 02/05/20 Unknown ABG pO2 111.6 mm Hg (80.0-90.0) H 02/05/20 Unknown ABG HCO3 22.9 mmol/L (20.0-26.0) 02/05/20 Unknown ABG O2 Saturation 98.3 % (95.0-99.0) 02/05/20 Unknown ABG O2 Content 10.3 (0.0-44) 02/05/20 Unknown ABG Base Excess -0.1 mmol/L (-2.0-3.0) 02/05/20 Unknown ABG Hemoglobin 7.4 gm/dl (12.0-16.0) L 02/05/20 Unknown ABG Carboxyhemoglobin 1.3 % (0.0-5.0) 02/05/20 Unknown ABG Methemoglobin 0.4 % (0.0-1.5) 02/05/20 Unknown VBG pH 7.409 (7.320-7.420) 01/17/20 18:28 Oxyhemoglobin 96.7 % (95.0-99.0) 02/05/20 Unknown FiO2 40 % 02/05/20 Unknown Sodium 141 mmol/L (137-145) 02/05/20 03:51 Potassium 3.9 mmol/L (3.6-5.0) 02/05/20 03:51 Chloride 101.8 mmol/L (98-107) 02/05/20 03:51 Carbon Dioxide 19 mmol/L (22-30) L 02/05/20 03:51 Anion Gap 24 mmol/L 02/05/20 03:51 BUN 65 mg/dL (7-17) H 02/05/20 03:51 Creatinine 5.9 mg/dL (0.7-1.2) H 02/05/20 03:51 Estimated GFR 10 ml/min 02/05/20 03:51 BUN/Creatinine Ratio 11 % 02/05/20 03:51 Glucose 167 mg/dL (65-100) H 02/05/20 03:51 POC Glucose 267 (70-105) H 02/05/20 12:34 Hemoglobin A1c 11.6 % (4-6) H 01/18/20 12:47 Lactic Acid 1.30 mmol/L (0.7-2.0) 01/18/20 08:30 Calcium 8.3 mg/dL (8.4-10.2) L 02/05/20 03:51 Magnesium 1.50 mg/dL (1.7-2.3) L 01/17/20 22:58 Ferritin 1660.0 ng/mL (13.0-400.0) H 02/04/20 04:42 Total Bilirubin 0.50 mg/dL (0.1-1.2) 01/31/20 03:49 AST 112 units/L (5-40) H 01/31/20 03:49 ALT 112 units/L (7-56) H 01/31/20 03:49 Alkaline Phosphatase 145 units/L (35-129) H 01/31/20 03:49 Lactate Dehydrogenase 972 units/L (91-180) H 02/04/20 04:42 Total Creatine Kinase 122 units/L (30-135) 01/17/20 22:58 C-Reactive Protein 6.20 mg/dL (0.00-1.30) H 02/04/20 04:42 Total Protein 5.5 g/dL (6.3-8.2) L 01/31/20 03:49 Albumin 1.7 g/dL (3.9-5) L 01/31/20 03:49 Albumin/Globulin Ratio 0.4 % 01/31/20 03:49 Procalcitonin 0.27 ng/mL (<0.15) 01/23/20 10:36 HCG, Qual Negative (Negative) 01/31/20 03:49 Urine Color Yellow (Yellow) 01/18/20 00:32 Urine Turbidity Slightly-cloudy (Clear) 01/18/20 00:32 Urine pH 5.0 (5.0-7.0) 01/18/20 00:32 Ur Specific [place] 1.011 (1.003-1.030) 01/18/20 00:32 Urine Protein 100 mg/dl mg/dL (Negative) 01/18/20 00:32 Urine Glucose (UA) >=500 mg/dL (Negative) 01/18/20 00:32 Urine Ketones Tr mg/dL (Negative) 01/18/20 00:32 Urine Blood Neg (Negative) 01/18/20 00:32 Urine Nitrite Neg (Negative) 01/18/20 00:32 Urine Bilirubin Neg (Negative) 01/18/20 00:32 Urine Urobilinogen < 2.0 mg/dL (<2.0) 01/18/20 00:32 Ur Leukocyte Esterase Neg (Negative) 01/18/20 00:32 Urine WBC (Auto) 2.0 /HPF (0.0-6.0) 01/18/20 00:32 Urine RBC (Auto) 4.0 /HPF (0.0-6.0) 01/18/20 00:32 U Epithel Cells (Auto) 2.0 /HPF (0-13.0) 01/18/20 00:32 Hyaline Casts 1 /LPF 01/18/20 00:32 Urine Mucus Few /HPF 01/18/20 00:32 Urine Yeast (Budding) Few /HPF 01/18/20 00:32 Vancomycin Trough 45.4 ug/mL (5.0-20.0) H 01/30/20 05:19 Random Vancomycin 30.6 ug/mL (0-40.0) 02/01/20 03:49 Hepatitis A IgM Ab Non-reactive (NonReactive) 02/01/20 10:57 Hep Bs Antigen Non-reactive (Negative) 02/01/20 10:57 Hep B Core IgM Ab Non-reactive (NonReactive) 02/01/20 10:57 Hepatitis C Antibody Non-reactive (NonReactive) 02/01/20 10:57 Influenza A (Rapid) Negative (Negative) 01/19/20 01:10 Influenza B (Rapid) Negative (Negative) 01/19/20 01:10 AFB Identification 01/20/20 04:00 Miscellaneous Test Flexitest 1 H 01/28/20 10:00 Microbiology: Microbiology 01/31/20 Unknown Thigh - Left Surgical Biopsy Culture - Preliminary Goldstein/IV: Voiding Method Condom Catheter IV Catheter Type [right ac] Peripheral IV IV Catheter Type [Right trialysis Femoral] IV Catheter Type [Right Peripheral IV Forearm] IV Catheter Type [Right Wrist] INT / Saline Lock IV Catheter Type [Right Hand] INT / Saline Lock IV Catheter Type [Right Upper INT / Saline Lock arm] IV Catheter Type [Left Hand] INT / Saline Lock Active Medications - Current Medications Current Medications: Generic Name Dose Route Start Last Admin Trade Name Freq PRN Reason Stop Dose Admin Acetaminophen 650 mg 01/17/20 23:06 01/29/20 22:43 Tylenol PO 650 mg Q4H PRN Administration Pain MILD(1-3)/Fever >100.5/COLLINS Lipase/Protease/Amylase 1 each 02/01/20 09:[address] 10,500 Unit FEEDTUBE PRN PRN For Clogged Feeding Tube Dextrose 0 ml 01/17/20 23:06 D50w (25gm) Syringe IV Q30MIN PRN Hypoglycemia Protocol Famotidine 20 mg 01/24/20 10:00 02/05/20 09:07 Pepcid PO 20 mg QDAY COBY Administration Fentanyl 12.5 mcg 02/05/20 12:00 Sublimaze IV Q4H PRN AGITATION/ANXIETY Heparin Sodium (Porcine) 5,000 unit 01/18/20 06:00 02/05/20 13:09 Heparin SUB-Q 5,000 unit Q8HR COBY Administration Hydralazine HCl 10 mg 01/18/20 22:14 01/22/20 18:43 Apresoline IV 10 mg Q6H PRN Administration Hypertension Hydrophilic Ointment 1 applic 01/31/20 21:48 Vaseline Lip Therapy TP Q2HR PRN Dry Lips Norepinephrine 4 mg in 250 mls @ 7.5 mls/hr 01/31/20 23:45 02/02/20 20:15 Levophed Drip 4 Mg/Ns 250 Ml IV 0 mcg/min TITR COBY 0 mls/hr Titration Protocol 2 MCG/MIN Piperacillin Sod/Tazobactam Sod 2.25 gm in 50 mls @ 100 mls/hr 02/01/20 14:00 02/05/20 13:09 Zosyn/Ns 2.25 Gm/50ml IV 02/07/20 23:59 100 mls/hr Q8HR COBY Administration Protocol Sodium Chloride 100 mls @ 999 mls/hr 02/04/20 09:10 Nacl 0.9% IV KIRSTEN PRN Hypotension Sodium Chloride 100 mls @ 999 mls/hr 02/05/20 11:31 Nacl 0.9% IV KIRSTEN PRN Hypotension Insulin Human Isoph/Insulin Regular 20 unit 02/04/20 17:00 02/05/20 09:07 Humulin 70/30 SUB-Q 20 unit BIDDIAB COBY Administration Insulin Human Regular 0 units 02/01/20 12:00 02/05/20 12:25 Humulin R SUB-Q 6 units Q6HR COBY Administration Protocol Insulin Human Regular 5 units 02/04/20 12:00 02/05/20 12:25 Humulin R SUB-Q 5 units Q6HR COBY Administration Magnesium Hydroxide 30 ml 01/17/20 23:06 Milk Of Magnesia PO Q4H PRN Constipation Morphine Sulfate 2 mg 01/17/20 23:06 02/05/20 11:49 Morphine IV 2 mg Q4H PRN Administration Pain, Moderate (4-6) Multi-Ingred Cream/Lotion/Oil/Oint 1 applic 01/31/20 21:48 Artificial Tears Ophth Oint OU Q4HR PRN Dry Eye(s) Nystatin 1 applic 01/29/20 14:00 02/05/20 09:09 Nystop TP 1 applic BID COBY Administration Ondansetron HCl 4 mg 01/17/20 23:06 01/30/20 20:47 Zofran IV 4 mg Q8H PRN Administration Nausea And Vomiting Simple Syrup 15 ml 02/01/20 09:53 Simple Syrup FEEDTUBE PRN PRN Hypoglycemia Simple Syrup 30 ml 02/01/20 09:53 Simple Syrup FEEDTUBE PRN PRN Hypoglycemia Sodium Bicarbonate 325 mg 02/01/20 09:53 Sodium Bicarbonate FEEDTUBE PRN PRN For Clogged Feeding Tube Sodium Chloride 10 ml 01/18/20 10:00 02/05/20 09:08 Sodium Chloride Flush Syringe 10 Ml IV 10 ml BID COBY Administration Sodium Chloride 10 ml 01/17/20 23:06 02/04/20 05:07 Sodium Chloride Flush Syringe 10 Ml IV 10 ml PRN PRN Administration LINE FLUSH Nutrition/Malnutrition Assess - Dietary Evaluation Nutrition/Malnutrition Findings: Nutrition Notes Start: 01/18/20 13:13 Freq: Status: Active Protocol: Document 02/04/20 12:57 LM (Rec: 02/04/20 13:02 LM [id number]) Nutrition Notes Initial or Follow up Reassessment Current Diagnosis Diabetes,Sepsis Other Pertinent Diagnosis COVID-19 positive, LEV pnue, ( R) great toe wound Current Diet Vital HP 1.0 at 75ml/hr Labs/Tests Na 140 BUN 80 Cr 5.8 BG 209 Pertinent Medications Humulin Height 6 ft Weight 147.9 kg [place] Body Weight (kg) 72.72 BMI 44.1 Weight Status Morbidly Obese Subjective/Other Information Per RN pt is tolerating TF at goal. Na now in normal range. Percent of energy/protein needs met: 87%/86% Burn Absent Trauma Absent Current % PO Negligible Minimum of two criteria No physical signs of malnutrition #3 Nutrition Diagnosis Inadequate oral intake Diagnosis Progress(for reassessment Continues documentation) #2 Nutrition Diagnosis Inadequate protein-energy intake Diagnosis Progress(for reassessment Continues documentation) #1 Nutrition Diagnosis Increased nutrient needs ( specify in comment below) Diagnosis Progress(for reassessment Continues documentation) Is patient on ventilator? Yes Is Patient Ambulatory and/or Out of Bed Yes REE-(Herkimer-St. Jeor-ambulatory/OOB) [ 3004.300 [id number]] Kcal/Kg value to use for calculation 14 Approximate Energy Requirements Using 1 kcal/Kg Calculation Used for Recommendations Kcal/kg Additional Notes Protein: 183g (up to 2.5g/kg using IBW 73kg Fluid needs 1ml/kcal Nutrition Intervention Change Diet Order: Continue TF Nutrition Support: Vital HP 1.0 at 75ml/hr Flush 50 ml q4h Kcal 1,800 Protein (gm) 158 Fluid (mL) 1,505 Goal #1 TF tolerance Goal #2 Meet at least 75% of energy and protein needs via TF Goal #3 Wound healing Anticipated Discharge Needs: unable to determine at this time Follow-Up By: 02/11/20 Additional Comments F/U for TF tolerance
[2020-02-06 04:19] LABS: Hematocrit 25.7 % (30.3-42.9); Mean Corpuscular HGB Conc 31 % (30-34); Mean Corpuscular Volume 81 fl (79-97); Platelet Count 169 K/mm3 (140-440); Red Blood Count 3.16 M/mm3 (3.65-5.03); Red Cell Distribution Width 13.6 % (13.2-15.2)
[2020-02-06 04:36] LABS: C-Reactive Protein 0.5 mg/dL (0.00-1.30); Calcium 8.4 mg/dL (8.4-10.2)
[2020-02-06] MEDS: PIPERACIL-TAZO 2.25 GM/50 ML 2.25 GM/50 ML BAG IV SCH ×3 (05:40→23:06)
[2020-02-06] MEDS: HEPARIN 5,000 UNIT/1 ML VIAL SUB-Q SCH ×3 (05:40→23:07)
[2020-02-06] MEDS: INSULIN REGULAR, HUMAN 100 UNITS/1 ML SUB-Q SCH ×8 (06:07→23:09)
[2020-02-06] MEDS: INSULIN NPH/REGULAR 70/30 INJ SUB-Q SCH ×2 (09:06→23:06)
[2020-02-06] MEDS: FAMOTIDINE 20 MG TAB PO SCH (09:06)
[2020-02-06] MEDS: NYSTATIN POWDER 15 GM TP SCH ×2 (09:07→23:14)
--- NOTE | 2020-02-06 09:54 | Progress Note ---
Assessment and Plan - Patient Problems (1) Acute kidney injury (CIPRIANO) with acute tubular necrosis (ATN) Current Visit: Yes Status: Acute Plan to address problem: No signs of renal recovery noted at present time. Will plan to maintain on [facility] inpatient HD schedule, and assess daily for need of extra isolated UF sessions in order to optimize her volume control. Tolerated isolated UF session yesterday with removal of 3L UF. (2) Acute respiratory failure with hypoxia Current Visit: Yes Status: Acute Plan to address problem: Patient self extubated. Management per pulmonology. s/p extra isolated UF session yesterday to further optimize her volume/respi ratory status. (3) Pneumonia due to COVID-19 virus Current Visit: Yes Status: Acute Plan to address problem: Management per ID recommendations. (4) Type 2 diabetes mellitus with hyperglycemia Current Visit: Yes Status: Acute Plan to address problem: DM management per primary attending Subjective Principal diagnosis: Severe Sepsis; LEV PNA; DM II; Morbid obesity; R/O COVID-19 infection Interval history: Patient self extubated. s/p isolated UF session to optimize her volume status, with removal of 3L UF. Tolerated well, and plan for HD today per [facility] inpatient schedule. COVID19: Positive Objective - Vital Signs Vital signs: Vital Signs - 12hr 02/05/20 02/05/20 02/05/20 22:00 22:15 22:30 Temperature Pulse Rate 81 83 84 Pulse Rate [ 85 From Monitor] Respiratory 28 H 27 H 28 H Rate Blood Pressure 134/66 120/67 129/64 O2 Sat by Pulse 99 100 99 Oximetry 02/05/20 02/05/20 02/05/20 22:45 23:00 23:15 Temperature Pulse Rate 86 86 86 Pulse Rate [ From Monitor] Respiratory 27 H 30 H 31 H Rate Blood Pressure 128/63 129/61 126/60 O2 Sat by Pulse 99 100 100 Oximetry 02/05/20 02/05/20 02/05/20 23:30 23:45 23:46 Temperature Pulse Rate 84 82 83 Pulse Rate [ From Monitor] Respiratory 31 H 24 29 H Rate Blood Pressure 128/63 135/65 135/65 O2 Sat by Pulse 100 100 100 Oximetry 02/06/20 02/06/20 02/06/20 00:00 00:16 00:30 Temperature 99.3 F Pulse Rate 84 83 81 Pulse Rate [ From Monitor] Respiratory 24 32 H 29 H Rate Blood Pressure 126/61 126/61 126/61 O2 Sat by Pulse 100 100 100 Oximetry 02/06/20 02/06/20 02/06/20 00:46 01:00 01:16 Temperature Pulse Rate 84 84 82 Pulse Rate [ 82 From Monitor] Respiratory 33 H 20 32 H Rate Blood Pressure 126/61 128/66 128/66 O2 Sat by Pulse 100 100 100 Oximetry 02/06/20 02/06/20 02/06/20 01:30 01:46 02:00 Temperature Pulse Rate 84 84 76 Pulse Rate [ From Monitor] Respiratory 32 H 32 H 28 H Rate Blood Pressure 128/66 128/66 118/67 O2 Sat by Pulse 100 100 100 Oximetry 02/06/20 02/06/20 02/06/20 03:00 03:14 04:00 Temperature 99.0 F Pulse Rate 84 79 Pulse Rate [ 87 From Monitor] Respiratory 28 H 29 H Rate Blood Pressure 122/68 137/71 O2 Sat by Pulse 100 100 Oximetry 02/06/20 02/06/20 02/06/20 05:00 06:00 07:00 Temperature Pulse Rate 87 88 84 Pulse Rate [ From Monitor] Respiratory 31 H 19 39 H Rate Blood Pressure 137/71 147/72 128/63 O2 Sat by Pulse 100 98 100 Oximetry 02/06/20 02/06/20 02/06/20 08:00 08:38 09:00 Temperature 99.7 F H Pulse Rate 88 90 Pulse Rate [ From Monitor] Respiratory 37 H 28 H Rate Blood Pressure 139/67 139/67 O2 Sat by Pulse 100 98 100 Oximetry - General Appearance General appearance: well-developed, obese EENT: ATNC Neck: no JVD Respiratory: Present: Decreased Breath Sounds Cardiology: regular Gastrointestinal: normal Integumentary: no rash Neurologic: other (remain lethargic ) Musculoskeletal: deferred - Lab 02/06/20 03:38 02/06/20 03:38 Most recent lab results ABG pH 7.497 pH Units (7.350-7.450) H 02/05/20 Unknown ABG pCO2 30.2 mm Hg 02/05/20 Unknown ABG pO2 111.6 mm Hg (80.0-90.0) H 02/05/20 Unknown ABG HCO3 22.9 mmol/L (20.0-26.0) 02/05/20 Unknown ABG O2 Saturation 98.3 % (95.0-99.0) 02/05/20 Unknown Calcium 8.4 mg/dL (8.4-10.2) 02/06/20 03:38 Magnesium 1.50 mg/dL (1.7-2.3) L 01/17/20 22:58 - Allied health notes Allied health notes reviewed: nursing Medications & Allergies - Medications Allergies/Adverse Reactions: Allergies No Known Allergies Allergy (Verified 09/12/18 00:37) Home Medications: Home Medications Medication Instructions Recorded Confirmed Last Taken Type glipiZIDE-Metformin 5-500 mg 500 mg PO BID 01/17/20 01/17/20 Unknown History Active Medications: Generic Name Dose Route Start Last Admin Trade Name Freq PRN Reason Stop Dose Admin Acetaminophen 650 mg 01/17/20 23:06 01/29/20 22:43 Tylenol PO 650 mg Q4H PRN Administration Pain MILD(1-3)/Fever >100.5/COLLINS Lipase/Protease/Amylase 1 each 02/01/20 09:[address] 10,500 Unit FEEDTUBE PRN PRN For Clogged Feeding Tube Dextrose 0 ml 01/17/20 23:06 D50w (25gm) Syringe IV Q30MIN PRN Hypoglycemia Protocol Famotidine 20 mg 01/24/20 10:00 02/06/20 09:06 Pepcid PO 20 mg QDAY COBY Administration Fentanyl 12.5 mcg 02/05/20 12:00 Sublimaze IV Q4H PRN AGITATION/ANXIETY Heparin Sodium (Porcine) 5,000 unit 01/18/20 06:00 02/06/20 05:40 Heparin SUB-Q 5,000 unit Q8HR COBY Administration Hydralazine HCl 10 mg 01/18/20 22:14 01/22/20 18:43 Apresoline IV 10 mg Q6H PRN Administration Hypertension Hydrophilic Ointment 1 applic 01/31/20 21:48 Vaseline Lip Therapy TP Q2HR PRN Dry Lips Norepinephrine 4 mg in 250 mls @ 7.5 mls/hr 01/31/20 23:45 02/02/20 20:15 Levophed Drip 4 Mg/Ns 250 Ml IV 0 mcg/min TITR COBY 0 mls/hr Titration Protocol 2 MCG/MIN Piperacillin Sod/Tazobactam Sod 2.25 gm in 50 mls @ 100 mls/hr 02/01/20 14:00 02/06/20 05:40 Zosyn/Ns 2.25 Gm/50ml IV 02/07/20 23:59 100 mls/hr Q8HR COBY Administration Protocol Sodium Chloride 100 mls @ 999 mls/hr 02/04/20 09:10 Nacl 0.9% IV KIRSTEN PRN Hypotension Sodium Chloride 100 mls @ 999 mls/hr 02/05/20 11:31 Nacl 0.9% IV KIRSTEN PRN Hypotension Insulin Human Isoph/Insulin Regular 20 unit 02/04/20 17:00 02/06/20 09:06 Humulin 70/30 SUB-Q 02/06/20 12:00 20 unit BIDDIAB COBY Administration Insulin Human Isoph/Insulin Regular 5 unit 02/06/20 10:00 02/06/20 09:05 Humulin 70/30 SUB-Q 02/06/20 10:01 5 unit ONCE ONE Administration Insulin Human Isoph/Insulin Regular 25 unit 02/06/20 22:00 Humulin 70/30 SUB-Q BID COBY Insulin Human Regular 0 units 02/01/20 12:00 02/06/20 06:07 Humulin R SUB-Q 4 units Q6HR COBY Administration Protocol Insulin Human Regular 5 units 02/04/20 12:00 02/06/20 06:08 Humulin R SUB-Q 5 units Q6HR COBY Administration Magnesium Hydroxide 30 ml 01/17/20 23:06 Milk Of Magnesia PO Q4H PRN Constipation Morphine Sulfate 2 mg 01/17/20 23:06 02/05/20 11:49 Morphine IV 2 mg Q4H PRN Administration Pain, Moderate (4-6) Multi-Ingred Cream/Lotion/Oil/Oint 1 applic 01/31/20 21:48 Artificial Tears Ophth Oint OU Q4HR PRN Dry Eye(s) Nystatin 1 applic 01/29/20 14:00 02/06/20 09:07 Nystop TP 1 applic BID COBY Administration Ondansetron HCl 4 mg 01/17/20 23:06 01/30/20 20:47 Zofran IV 4 mg Q8H PRN Administration Nausea And Vomiting Simple Syrup 15 ml 02/01/20 09:53 Simple Syrup FEEDTUBE PRN PRN Hypoglycemia Simple Syrup 30 ml 02/01/20 09:53 Simple Syrup FEEDTUBE PRN PRN Hypoglycemia Sodium Bicarbonate 325 mg 02/01/20 09:53 Sodium Bicarbonate FEEDTUBE PRN PRN For Clogged Feeding Tube Sodium Chloride 10 ml 01/18/20 10:00 02/06/20 09:06 Sodium Chloride Flush Syringe 10 Ml IV 10 ml BID COBY Administration Sodium Chloride 10 ml 01/17/20 23:06 02/04/20 05:07 Sodium Chloride Flush Syringe 10 Ml IV 10 ml PRN PRN Administration LINE FLUSH
[2020-02-06] MEDS ORDERED: INSULIN NPH/REGULAR 70/30 INJ SUB-Q ONE (10:00)
--- NOTE | 2020-02-06 11:18 | Progress Note ---
Assessment and Plan Severe Sepsis with septic shock; SOFA >2 Acute hypoxemic respiratory failure s/p MVS Left upper lobe pneumonia ; COVID 19 induced pneumonia Diabetes II Morbid obesity Febrile illness POSITIVE COVID-19 infection Diabetic foot ulcer Lactic acidosis CIPRIANO-secondary to ATN, vasomotor nephropathy on HD Thigh abscess s/p I and D _Wean supplemental oxygen fro O2 sast >92% -Very high inflammatory markers - ferritin 2758; CRP/LDH -much improved IL-6 elevated 105 -Serial Ferritin, LDH, D-Dimer, CRP -Conservative fluid management -ABG, CXR prn -Aspiration precautions, HOB >40 -Accuchecks with glycemic control, keep blood glucose 140-180 mg/dL while critically ill -Avoid hypoglycemia -Avoid nephrotoxins, adjust and dose all medications for GFR and CrCL -Supportive HD per renal service -VTE prophylaxis- heparin -Stress ulcer prophylaxis- Famotidine -Wound care per Surgery service- has a wound vac -Replace electrolytes as needed -COVID-19 precautions per [facility] protocol -All other care per Attending and consultants -Can transfer out of the ICU for ongoing care CONDITION: CRITICAL PROGNOSIS: GUARDED CODE STATUS: FULL CODE Subjective Date of service: 02/06/20 Principal diagnosis: Severe Sepsis; LEV PNA; DM II; Morbid obesity; R/O COVID-19 infection Interval history: Patient is seen today for: Severe Sepsis with septic shock ; LEV pneumonia; Acute hypoxemic respiratory failure s/p MVS; Diabetes II; Morbid obesity; Febrile illness; POSITIVE COVID-19 infection; Diabetic foot ulcer; Hyponatremia; Lactic acidosis Seen and examined at bedside; 24hour events reviewed; nursing and respiratory care staff consulted; no adverse overnight events reported to me; 02/01/2020 POD#1 s/p extensive I&D of left thigh abscess with sepsis and showing signs of multi-system organ failure; critically ill orally intubated on MVS; on HD , and vasopressor support. Norepinephrine at 14mcg; Fentanyl at 1mcg. No urine output, has a right femoral trialysis catheter. Currently on Zosyn, received one dose of Vancomycin- therapeutic level is markedly increased. pH 7.29- metabolic acidosis. 02/04/2020 Vitals, labs, medications, chart and imaging reviewed. Remains orally intubated ETT 7.5cm at 22cm at the [facility] /6/40% ..pA02 104.8 Poor glycemic control with blood glucose>200 On Zosyn D4/7 Ferritin down to 1660, D-dimer down to 694, CRP down to 6.2, sligh elevation of LDH to 972 Fentanyl at 1mcg with RASS -1 Norepinephrine off ( 02/02/2020) CXR alveolar infiltrates improving For HD today 02/06/2020 -Remains on supplemental oxygen. Asking when she can go home. Denies any chest pain or shortness of breath No diarrhea or vomiting. Scheduled for HD today. Wound vac to thigh COVID19: Positive Objective Vital Signs - 12hr 02/05/20 02/05/20 02/05/20 23:30 23:45 23:46 Temperature Pulse Rate 84 82 83 Pulse Rate [ From Monitor] Respiratory 31 H 24 29 H Rate Blood Pressure 128/63 135/65 135/65 O2 Sat by Pulse 100 100 100 Oximetry 02/06/20 02/06/20 02/06/20 00:00 00:16 00:30 Temperature 99.3 F Pulse Rate 84 83 81 Pulse Rate [ From Monitor] Respiratory 24 32 H 29 H Rate Blood Pressure 126/61 126/61 126/61 O2 Sat by Pulse 100 100 100 Oximetry 02/06/20 02/06/20 02/06/20 00:46 01:00 01:16 Temperature Pulse Rate 84 84 82 Pulse Rate [ 82 From Monitor] Respiratory 33 H 20 32 H Rate Blood Pressure 126/61 128/66 128/66 O2 Sat by Pulse 100 100 100 Oximetry 02/06/20 02/06/20 02/06/20 01:30 01:46 02:00 Temperature Pulse Rate 84 84 76 Pulse Rate [ From Monitor] Respiratory 32 H 32 H 28 H Rate Blood Pressure 128/66 128/66 118/67 O2 Sat by Pulse 100 100 100 Oximetry 02/06/20 02/06/20 02/06/20 03:00 03:14 04:00 Temperature 99.0 F Pulse Rate 84 79 Pulse Rate [ 87 From Monitor] Respiratory 28 H 29 H Rate Blood Pressure 122/68 137/71 O2 Sat by Pulse 100 100 Oximetry 02/06/20 02/06/20 02/06/20 05:00 06:00 07:00 Temperature Pulse Rate 87 88 84 Pulse Rate [ From Monitor] Respiratory 31 H 19 39 H Rate Blood Pressure 137/71 147/72 128/63 O2 Sat by Pulse 100 98 100 Oximetry 02/06/20 02/06/20 02/06/20 08:00 08:38 09:00 Temperature 99.7 F H Pulse Rate 88 90 Pulse Rate [ 88 From Monitor] Respiratory 37 H 28 H Rate Blood Pressure 139/67 139/67 O2 Sat by Pulse 100 98 100 Oximetry 02/06/20 10:00 Temperature Pulse Rate 91 H Pulse Rate [ From Monitor] Respiratory 15 Rate Blood Pressure 137/63 O2 Sat by Pulse 99 Oximetry Constitutional: other (young obese AAF, normocephalic, awake, alert on oxygen via NC at 4L) Eyes: non-icteric ENT: oropharynx dry Neck: supple, no lymphadenopathy, no JVD Effort: mildly labored Ascultation: Bilateral: diminished breath sounds, rales (scant in bases) Percussion: Bilateral: not dull Cardiovascular: regular rate and rhythm, other (S1,S2) Gastrointestinal: normoactive bowel sounds, soft, non-tender, non-distended Integumentary: other (Thigh abscess s/p I and D with wound vac) Extremities: no cyanosis, no edema, pulses normal, no ischemia or petechiae Neurologic: normal mental status, non-focal exam, pupils equal and round, CN II- XII normal, motor strength normal and Psychiatric: mood appropriate, affect normal CBC and BMP: 02/09/20 05:27 02/09/20 05:27 ABG, PT/INR, D-dimer: ABG ABG pH 7.497 pH Units (7.350-7.450) H 02/05/20 Unknown ABG pCO2 30.2 mm Hg 02/05/20 Unknown ABG pO2 111.6 mm Hg (80.0-90.0) H 02/05/20 Unknown ABG O2 Saturation 98.3 % (95.0-99.0) 02/05/20 Unknown PT/INR, D-dimer PT 15.6 Sec. (12.2-14.9) H 01/17/20 18:28 INR 1.22 (0.87-1.13) H 01/17/20 18:28 D-Dimer 1067.61 ng/mlDDU (0-234) H 02/06/20 03:38 Abnormal lab findings: Abnormal Labs 01/17/20 01/17/20 01/17/20 18:28 18:28 18:28 WBC RBC Hgb Hct MCV MCH 26 L RDW Lymph % (Auto) 9.3 L Lymph # 1.0 L Seg Neutrophils % 86.7 H Seg Neuts % (Manual) Lymphocytes % (Manual) Nucleated RBC % Seg Neutrophils # 9.6 H Seg Neutrophils # Man Lymphocytes # (Manual) PT 15.6 H INR 1.22 H D-Dimer ABG pH ABG pO2 ABG HCO3 ABG O2 Saturation ABG Base Excess ABG Hemoglobin Oxyhemoglobin Sodium 126 L Potassium Chloride 89.3 L Carbon Dioxide 19 L BUN Creatinine Glucose 397 H POC Glucose Hemoglobin A1c Lactic Acid Calcium Magnesium Ferritin AST ALT Alkaline Phosphatase Lactate Dehydrogenase C-Reactive Protein Total Protein 9.0 H Albumin Vancomycin Trough Random Vancomycin Miscellaneous Test 01/17/20 01/17/20 01/17/20 18:28 22:58 22:58 WBC RBC Hgb Hct MCV MCH RDW Lymph % (Auto) Lymph # Seg Neutrophils % Seg Neuts % (Manual) Lymphocytes % (Manual) Nucleated RBC % Seg Neutrophils # Seg Neutrophils # Man Lymphocytes # (Manual) PT INR D-Dimer ABG pH ABG pO2 ABG HCO3 ABG O2 Saturation ABG Base Excess ABG Hemoglobin Oxyhemoglobin Sodium Potassium Chloride Carbon Dioxide BUN Creatinine Glucose POC Glucose Hemoglobin A1c Lactic Acid 3.40 H* 2.30 H* Calcium Magnesium 1.50 L Ferritin AST ALT Alkaline Phosphatase Lactate Dehydrogenase C-Reactive Protein 16.60 H Total Protein Albumin Vancomycin Trough Random Vancomycin Miscellaneous Test 01/18/20 01/18/20 01/18/20 00:46 06:34 08:30 WBC RBC Hgb Hct MCV MCH 26 L RDW 12.7 L Lymph % (Auto) Lymph # Seg Neutrophils % 80.1 H Seg Neuts % (Manual) Lymphocytes % (Manual) Nucleated RBC % Seg Neutrophils # Seg Neutrophils # Man Lymphocytes # (Manual) PT INR D-Dimer ABG pH ABG pO2 ABG HCO3 ABG O2 Saturation ABG Base Excess ABG Hemoglobin Oxyhemoglobin Sodium Potassium Chloride Carbon Dioxide BUN Creatinine Glucose POC Glucose 338 H 266 H Hemoglobin A1c Lactic Acid Calcium Magnesium Ferritin AST ALT Alkaline Phosphatase Lactate Dehydrogenase C-Reactive Protein Total Protein Albumin Vancomycin Trough Random Vancomycin Miscellaneous Test 01/18/20 01/18/20 01/18/20 08:30 08:35 12:30 WBC RBC Hgb Hct MCV MCH RDW Lymph % (Auto) Lymph # Seg Neutrophils % Seg Neuts % (Manual) Lymphocytes % (Manual) Nucleated RBC % Seg Neutrophils # Seg Neutrophils # Man Lymphocytes # (Manual) PT INR D-Dimer ABG pH ABG pO2 ABG HCO3 ABG O2 Saturation ABG Base Excess ABG Hemoglobin Oxyhemoglobin Sodium 135 L D Potassium Chloride Carbon Dioxide BUN Creatinine Glucose 250 H POC Glucose 224 H 213 H Hemoglobin A1c Lactic Acid Calcium Magnesium Ferritin AST ALT Alkaline Phosphatase Lactate Dehydrogenase C-Reactive Protein Total Protein Albumin Vancomycin Trough Random Vancomycin Miscellaneous Test 01/18/20 01/18/20 01/18/20 12:47 16:56 22:03 WBC RBC Hgb Hct MCV MCH RDW Lymph % (Auto) Lymph # Seg Neutrophils % Seg Neuts % (Manual) Lymphocytes % (Manual) Nucleated RBC % Seg Neutrophils # Seg Neutrophils # Man Lymphocytes # (Manual) PT INR D-Dimer ABG pH ABG pO2 ABG HCO3 ABG O2 Saturation ABG Base Excess ABG Hemoglobin Oxyhemoglobin Sodium Potassium Chloride Carbon Dioxide BUN Creatinine Glucose POC Glucose 270 H 239 H Hemoglobin A1c 11.6 H Lactic Acid Calcium Magnesium Ferritin AST ALT Alkaline Phosphatase Lactate Dehydrogenase C-Reactive Protein Total Protein Albumin Vancomycin Trough Random Vancomycin Miscellaneous Test 01/19/20 01/19/20 01/19/20 06:15 11:48 13:09 WBC RBC Hgb Hct MCV MCH 26 L RDW Lymph % (Auto) Lymph # Seg Neutrophils % Seg Neuts % (Manual) Lymphocytes % (Manual) Nucleated RBC % Seg Neutrophils # Seg Neutrophils # Man Lymphocytes # (Manual) PT INR D-Dimer ABG pH ABG pO2 ABG HCO3 ABG O2 Saturation ABG Base Excess ABG Hemoglobin Oxyhemoglobin Sodium Potassium Chloride Carbon Dioxide BUN Creatinine Glucose POC Glucose 248 H 268 H Hemoglobin A1c Lactic Acid Calcium Magnesium Ferritin AST ALT Alkaline Phosphatase Lactate Dehydrogenase C-Reactive Protein Total Protein Albumin Vancomycin Trough Random Vancomycin Miscellaneous Test 01/19/20 01/19/20 01/20/20 17:44 21:09 09:03 WBC RBC Hgb Hct MCV MCH RDW Lymph % (Auto) Lymph # Seg Neutrophils % Seg Neuts % (Manual) Lymphocytes % (Manual) Nucleated RBC % Seg Neutrophils # Seg Neutrophils # Man Lymphocytes # (Manual) PT INR D-Dimer ABG pH ABG pO2 ABG HCO3 ABG O2 Saturation ABG Base Excess ABG Hemoglobin Oxyhemoglobin Sodium Potassium Chloride Carbon Dioxide BUN Creatinine Glucose POC Glucose 214 H 261 H 241 H Hemoglobin A1c Lactic Acid Calcium Magnesium Ferritin AST ALT Alkaline Phosphatase Lactate Dehydrogenase C-Reactive Protein Total Protein Albumin Vancomycin Trough Random Vancomycin Miscellaneous Test 01/20/20 01/20/20 01/20/20 12:10 17:00 19:43 WBC RBC Hgb Hct MCV MCH RDW Lymph % (Auto) Lymph # Seg Neutrophils % Seg Neuts % (Manual) Lymphocytes % (Manual) Nucleated RBC % Seg Neutrophils # Seg Neutrophils # Man Lymphocytes # (Manual) PT INR D-Dimer ABG pH ABG pO2 ABG HCO3 ABG O2 Saturation ABG Base Excess ABG Hemoglobin Oxyhemoglobin Sodium Potassium Chloride Carbon Dioxide BUN Creatinine Glucose POC Glucose 284 H 272 H Hemoglobin A1c Lactic Acid Calcium Magnesium Ferritin AST ALT Alkaline Phosphatase Lactate Dehydrogenase C-Reactive Protein Total Protein Albumin Vancomycin Trough 4.0 L Random Vancomycin Miscellaneous Test 01/20/20 01/21/20 01/21/20 22:39 09:29 11:41 WBC RBC Hgb Hct MCV MCH 26 L RDW Lymph % (Auto) Lymph # Seg Neutrophils % Seg Neuts % (Manual) Lymphocytes % (Manual) Nucleated RBC % Seg Neutrophils # Seg Neutrophils # Man Lymphocytes # (Manual) PT INR D-Dimer ABG pH ABG pO2 ABG HCO3 ABG O2 Saturation ABG Base Excess ABG Hemoglobin Oxyhemoglobin Sodium Potassium Chloride Carbon Dioxide BUN Creatinine Glucose POC Glucose 248 H 238 H Hemoglobin A1c Lactic Acid Calcium Magnesium Ferritin AST ALT Alkaline Phosphatase Lactate Dehydrogenase C-Reactive Protein Total Protein Albumin Vancomycin Trough Random Vancomycin Miscellaneous Test 01/21/20 01/21/20 01/21/20 11:41 12:27 16:55 WBC RBC Hgb Hct MCV MCH RDW Lymph % (Auto) Lymph # Seg Neutrophils % Seg Neuts % (Manual) Lymphocytes % (Manual) Nucleated RBC % Seg Neutrophils # Seg Neutrophils # Man Lymphocytes # (Manual) PT INR D-Dimer ABG pH ABG pO2 ABG HCO3 ABG O2 Saturation ABG Base Excess ABG Hemoglobin Oxyhemoglobin Sodium 132 L Potassium 3.5 L Chloride 97.0 L Carbon Dioxide 19 L BUN Creatinine Glucose 274 H POC Glucose 264 H 261 H Hemoglobin A1c Lactic Acid Calcium Magnesium Ferritin AST ALT Alkaline Phosphatase Lactate Dehydrogenase C-Reactive Protein Total Protein Albumin Vancomycin Trough Random Vancomycin Miscellaneous Test 01/21/20 01/22/20 01/22/20 22:39 09:05 12:57 WBC RBC Hgb Hct MCV MCH RDW Lymph % (Auto) Lymph # Seg Neutrophils % Seg Neuts % (Manual) Lymphocytes % (Manual) Nucleated RBC % Seg Neutrophils # Seg Neutrophils # Man Lymphocytes # (Manual) PT INR D-Dimer ABG pH ABG pO2 ABG HCO3 ABG O2 Saturation ABG Base Excess ABG Hemoglobin Oxyhemoglobin Sodium Potassium Chloride Carbon Dioxide BUN Creatinine Glucose POC Glucose 243 H 258 H 252 H Hemoglobin A1c Lactic Acid Calcium Magnesium Ferritin AST ALT Alkaline Phosphatase Lactate Dehydrogenase C-Reactive Protein Total Protein Albumin Vancomycin Trough Random Vancomycin Miscellaneous Test 01/22/20 01/22/20 01/23/20 17:14 21:30 09:03 WBC RBC Hgb Hct MCV MCH RDW Lymph % (Auto) Lymph # Seg Neutrophils % Seg Neuts % (Manual) Lymphocytes % (Manual) Nucleated RBC % Seg Neutrophils # Seg Neutrophils # Man Lymphocytes # (Manual) PT INR D-Dimer ABG pH ABG pO2 ABG HCO3 ABG O2 Saturation ABG Base Excess ABG Hemoglobin Oxyhemoglobin Sodium Potassium Chloride Carbon Dioxide BUN Creatinine Glucose POC Glucose 306 H 217 H 156 H Hemoglobin A1c Lactic Acid Calcium Magnesium Ferritin AST ALT Alkaline Phosphatase Lactate Dehydrogenase C-Reactive Protein Total Protein Albumin Vancomycin Trough Random Vancomycin Miscellaneous Test 01/23/20 01/23/20 01/23/20 10:36 11:12 17:11 WBC RBC Hgb Hct MCV MCH RDW Lymph % (Auto) Lymph # Seg Neutrophils % Seg Neuts % (Manual) Lymphocytes % (Manual) Nucleated RBC % Seg Neutrophils # Seg Neutrophils # Man Lymphocytes # (Manual) PT INR D-Dimer ABG pH ABG pO2 ABG HCO3 ABG O2 Saturation ABG Base Excess ABG Hemoglobin Oxyhemoglobin Sodium Potassium 3.0 L Chloride Carbon Dioxide 21 L BUN Creatinine Glucose 266 H POC Glucose 244 H 238 H Hemoglobin A1c Lactic Acid Calcium 8.3 L Magnesium Ferritin AST ALT Alkaline Phosphatase Lactate Dehydrogenase C-Reactive Protein Total Protein Albumin Vancomycin Trough Random Vancomycin Miscellaneous Test 01/23/20 01/24/20 01/24/20 22:57 06:03 12:12 WBC RBC Hgb Hct MCV MCH RDW Lymph % (Auto) Lymph # Seg Neutrophils % Seg Neuts % (Manual) Lymphocytes % (Manual) Nucleated RBC % Seg Neutrophils # Seg Neutrophils # Man Lymphocytes # (Manual) PT INR D-Dimer ABG pH ABG pO2 ABG HCO3 ABG O2 Saturation ABG Base Excess ABG Hemoglobin Oxyhemoglobin Sodium Potassium 3.2 L Chloride Carbon Dioxide 19 L BUN Creatinine Glucose 231 H POC Glucose 228 H 210 H Hemoglobin A1c Lactic Acid Calcium 8.2 L Magnesium Ferritin AST ALT Alkaline Phosphatase Lactate Dehydrogenase C-Reactive Protein Total Protein Albumin Vancomycin Trough Random Vancomycin Miscellaneous Test 01/24/20 01/24/20 01/24/20 12:50 19:01 21:49 WBC RBC Hgb Hct MCV MCH RDW Lymph % (Auto) Lymph # Seg Neutrophils % Seg Neuts % (Manual) Lymphocytes % (Manual) Nucleated RBC % Seg Neutrophils # Seg Neutrophils # Man Lymphocytes # (Manual) PT INR D-Dimer ABG pH 7.485 H ABG pO2 63.4 L ABG HCO3 ABG O2 Saturation ABG Base Excess ABG Hemoglobin 5.0 L Oxyhemoglobin Sodium Potassium Chloride Carbon Dioxide BUN Creatinine Glucose POC Glucose 183 H 193 H Hemoglobin A1c Lactic Acid Calcium Magnesium Ferritin AST ALT Alkaline Phosphatase Lactate Dehydrogenase C-Reactive Protein Total Protein Albumin Vancomycin Trough Random Vancomycin Miscellaneous Test 01/25/20 01/25/20 01/25/20 09:13 16:58 22:23 WBC RBC Hgb Hct MCV MCH RDW Lymph % (Auto) Lymph # Seg Neutrophils % Seg Neuts % (Manual) Lymphocytes % (Manual) Nucleated RBC % Seg Neutrophils # Seg Neutrophils # Man Lymphocytes # (Manual) PT INR D-Dimer ABG pH ABG pO2 ABG HCO3 ABG O2 Saturation ABG Base Excess ABG Hemoglobin Oxyhemoglobin Sodium Potassium Chloride Carbon Dioxide BUN Creatinine Glucose POC Glucose 196 H 231 H 159 H Hemoglobin A1c Lactic Acid Calcium Magnesium Ferritin AST ALT Alkaline Phosphatase Lactate Dehydrogenase C-Reactive Protein Total Protein Albumin Vancomycin Trough Random Vancomycin Miscellaneous Test 01/26/20 01/26/20 01/26/20 05:40 05:40 05:40 WBC 16.4 H RBC Hgb Hct MCV MCH 26 L RDW 12.9 L Lymph % (Auto) Lymph # Seg Neutrophils % Seg Neuts % (Manual) 90.0 H Lymphocytes % (Manual) 1.0 L Nucleated RBC % 1.0 H Seg Neutrophils # Seg Neutrophils # Man 14.8 H Lymphocytes # (Manual) 0.2 L PT INR D-Dimer 2624.11 H ABG pH ABG pO2 ABG HCO3 ABG O2 Saturation ABG Base Excess ABG Hemoglobin Oxyhemoglobin Sodium 135 L Potassium 2.7 L* Chloride Carbon Dioxide 21 L BUN Creatinine Glucose 132 H POC Glucose Hemoglobin A1c Lactic Acid Calcium 8.0 L Magnesium Ferritin AST ALT Alkaline Phosphatase Lactate Dehydrogenase C-Reactive Protein Total Protein Albumin Vancomycin Trough Random Vancomycin Miscellaneous Test 01/26/20 01/26/20 01/26/20 05:40 05:40 08:58 WBC RBC Hgb Hct MCV MCH RDW Lymph % (Auto) Lymph # Seg Neutrophils % Seg Neuts % (Manual) Lymphocytes % (Manual) Nucleated RBC % Seg Neutrophils # Seg Neutrophils # Man Lymphocytes # (Manual) PT INR D-Dimer ABG pH ABG pO2 ABG HCO3 ABG O2 Saturation ABG Base Excess ABG Hemoglobin Oxyhemoglobin Sodium Potassium Chloride Carbon Dioxide BUN Creatinine Glucose POC Glucose 131 H Hemoglobin A1c Lactic Acid Calcium Magnesium Ferritin 2758.0 H AST ALT Alkaline Phosphatase Lactate Dehydrogenase C-Reactive Protein 26.90 H Total Protein Albumin Vancomycin Trough Random Vancomycin Miscellaneous Test 01/26/20 01/26/20 01/26/20 13:00 16:30 21:22 WBC RBC Hgb Hct MCV MCH RDW Lymph % (Auto) Lymph # Seg Neutrophils % Seg Neuts % (Manual) Lymphocytes % (Manual) Nucleated RBC % Seg Neutrophils # Seg Neutrophils # Man Lymphocytes # (Manual) PT INR D-Dimer ABG pH ABG pO2 ABG HCO3 ABG O2 Saturation ABG Base Excess ABG Hemoglobin Oxyhemoglobin Sodium Potassium Chloride Carbon Dioxide BUN Creatinine Glucose POC Glucose 136 H 146 H 139 H Hemoglobin A1c Lactic Acid Calcium Magnesium Ferritin AST ALT Alkaline Phosphatase Lactate Dehydrogenase C-Reactive Protein Total Protein Albumin Vancomycin Trough Random Vancomycin Miscellaneous Test 01/27/20 01/27/20 01/27/20 05:14 07:37 12:05 WBC RBC Hgb Hct MCV MCH RDW Lymph % (Auto) Lymph # Seg Neutrophils % Seg Neuts % (Manual) Lymphocytes % (Manual) Nucleated RBC % Seg Neutrophils # Seg Neutrophils # Man Lymphocytes # (Manual) PT INR D-Dimer ABG pH ABG pO2 ABG HCO3 ABG O2 Saturation ABG Base Excess ABG Hemoglobin Oxyhemoglobin Sodium 135 L Potassium 3.4 L D Chloride Carbon Dioxide 17 L BUN 24 H Creatinine 1.4 H D Glucose 143 H POC Glucose 133 H 141 H Hemoglobin A1c Lactic Acid Calcium 7.6 L Magnesium Ferritin AST ALT Alkaline Phosphatase Lactate Dehydrogenase C-Reactive Protein Total Protein Albumin Vancomycin Trough Random Vancomycin Miscellaneous Test 01/27/20 01/27/20 01/27/20 17:37 22:14 23:53 WBC RBC Hgb Hct MCV MCH RDW Lymph % (Auto) Lymph # Seg Neutrophils % Seg Neuts % (Manual) Lymphocytes % (Manual) Nucleated RBC % Seg Neutrophils # Seg Neutrophils # Man Lymphocytes # (Manual) PT INR D-Dimer 2675.43 H ABG pH ABG pO2 ABG HCO3 ABG O2 Saturation ABG Base Excess ABG Hemoglobin Oxyhemoglobin Sodium Potassium Chloride Carbon Dioxide BUN Creatinine Glucose POC Glucose 153 H 124 H Hemoglobin A1c Lactic Acid Calcium Magnesium Ferritin AST ALT Alkaline Phosphatase Lactate Dehydrogenase C-Reactive Protein Total Protein Albumin Vancomycin Trough Random Vancomycin Miscellaneous Test 01/27/20 01/27/20 01/28/20 23:53 23:53 08:36 WBC RBC Hgb Hct MCV MCH RDW Lymph % (Auto) Lymph # Seg Neutrophils % Seg Neuts % (Manual) Lymphocytes % (Manual) Nucleated RBC % Seg Neutrophils # Seg Neutrophils # Man Lymphocytes # (Manual) PT INR D-Dimer ABG pH ABG pO2 ABG HCO3 ABG O2 Saturation ABG Base Excess ABG Hemoglobin Oxyhemoglobin Sodium Potassium Chloride Carbon Dioxide BUN Creatinine Glucose POC Glucose 165 H Hemoglobin A1c Lactic Acid Calcium Magnesium Ferritin 3523.0 H AST ALT Alkaline Phosphatase Lactate Dehydrogenase 1132 H C-Reactive Protein 15.60 H Total Protein Albumin Vancomycin Trough Random Vancomycin Miscellaneous Test 01/28/20 01/28/20 01/28/20 10:00 10:00 10:00 WBC RBC Hgb Hct MCV MCH RDW Lymph % (Auto) Lymph # Seg Neutrophils % Seg Neuts % (Manual) Lymphocytes % (Manual) Nucleated RBC % Seg Neutrophils # Seg Neutrophils # Man Lymphocytes # (Manual) PT INR D-Dimer ABG pH ABG pO2 ABG HCO3 ABG O2 Saturation ABG Base Excess ABG Hemoglobin Oxyhemoglobin Sodium 131 L Potassium 3.5 L Chloride Carbon Dioxide 16 L BUN 51 H Creatinine 3.5 H D Glucose 180 H POC Glucose Hemoglobin A1c Lactic Acid Calcium 7.5 L Magnesium Ferritin AST ALT Alkaline Phosphatase Lactate Dehydrogenase C-Reactive Protein Total Protein Albumin Vancomycin Trough Random Vancomycin 65.8 H Miscellaneous Test Flexitest 1 H 01/28/20 01/28/20 01/28/20 12:42 17:27 22:06 WBC RBC Hgb Hct MCV MCH RDW Lymph % (Auto) Lymph # Seg Neutrophils % Seg Neuts % (Manual) Lymphocytes % (Manual) Nucleated RBC % Seg Neutrophils # Seg Neutrophils # Man Lymphocytes # (Manual) PT INR D-Dimer ABG pH ABG pO2 ABG HCO3 ABG O2 Saturation ABG Base Excess ABG Hemoglobin Oxyhemoglobin Sodium Potassium Chloride Carbon Dioxide BUN Creatinine Glucose POC Glucose 188 H 161 H 158 H Hemoglobin A1c Lactic Acid Calcium Magnesium Ferritin AST ALT Alkaline Phosphatase Lactate Dehydrogenase C-Reactive Protein Total Protein Albumin Vancomycin Trough Random Vancomycin Miscellaneous Test 01/29/20 01/29/20 01/29/20 07:29 07:29 08:20 WBC 17.0 H RBC Hgb 9.6 L Hct 29.5 L MCV MCH 26 L RDW Lymph % (Auto) Lymph # Seg Neutrophils % Seg Neuts % (Manual) Lymphocytes % (Manual) Nucleated RBC % Seg Neutrophils # Seg Neutrophils # Man Lymphocytes # (Manual) PT INR D-Dimer ABG pH ABG pO2 ABG HCO3 ABG O2 Saturation ABG Base Excess ABG Hemoglobin Oxyhemoglobin Sodium 133 L Potassium Chloride Carbon Dioxide 15 L BUN 69 H Creatinine 4.1 H Glucose 161 H POC Glucose 170 H Hemoglobin A1c Lactic Acid Calcium 7.6 L Magnesium Ferritin AST ALT Alkaline Phosphatase Lactate Dehydrogenase C-Reactive Protein Total Protein Albumin Vancomycin Trough Random Vancomycin Miscellaneous Test 01/29/20 01/29/20 01/29/20 11:54 11:54 11:54 WBC RBC Hgb Hct MCV MCH RDW Lymph % (Auto) Lymph # Seg Neutrophils % Seg Neuts % (Manual) Lymphocytes % (Manual) Nucleated RBC % Seg Neutrophils # Seg Neutrophils # Man Lymphocytes # (Manual) PT INR D-Dimer 1499 H ABG pH ABG pO2 ABG HCO3 ABG O2 Saturation ABG Base Excess ABG Hemoglobin Oxyhemoglobin Sodium Potassium Chloride Carbon Dioxide BUN Creatinine Glucose POC Glucose Hemoglobin A1c Lactic Acid Calcium Magnesium Ferritin > 2000.0 H AST ALT Alkaline Phosphatase Lactate Dehydrogenase 946 H C-Reactive Protein 13.30 H Total Protein Albumin Vancomycin Trough Random Vancomycin Miscellaneous Test 01/29/20 01/29/20 01/29/20 12:55 16:19 22:13 WBC RBC Hgb Hct MCV MCH RDW Lymph % (Auto) Lymph # Seg Neutrophils % Seg Neuts % (Manual) Lymphocytes % (Manual) Nucleated RBC % Seg Neutrophils # Seg Neutrophils # Man Lymphocytes # (Manual) PT INR D-Dimer ABG pH ABG pO2 ABG HCO3 ABG O2 Saturation ABG Base Excess ABG Hemoglobin Oxyhemoglobin Sodium Potassium Chloride Carbon Dioxide BUN Creatinine Glucose POC Glucose 142 H 146 H 142 H Hemoglobin A1c Lactic Acid Calcium Magnesium Ferritin AST ALT Alkaline Phosphatase Lactate Dehydrogenase C-Reactive Protein Total Protein Albumin Vancomycin Trough Random Vancomycin Miscellaneous Test 01/30/20 01/30/20 01/30/20 05:19 05:19 08:04 WBC RBC Hgb Hct MCV MCH RDW Lymph % (Auto) Lymph # Seg Neutrophils % Seg Neuts % (Manual) Lymphocytes % (Manual) Nucleated RBC % Seg Neutrophils # Seg Neutrophils # Man Lymphocytes # (Manual) PT INR D-Dimer ABG pH ABG pO2 ABG HCO3 ABG O2 Saturation ABG Base Excess ABG Hemoglobin Oxyhemoglobin Sodium 134 L Potassium Chloride Carbon Dioxide 14 L BUN 87 H Creatinine 4.4 H Glucose 172 H POC Glucose 153 H Hemoglobin A1c Lactic Acid Calcium 7.6 L Magnesium Ferritin AST 152 H ALT 124 H Alkaline Phosphatase Lactate Dehydrogenase C-Reactive Protein Total Protein 5.5 L Albumin 1.8 L Vancomycin Trough 45.4 H Random Vancomycin Miscellaneous Test 01/30/20 01/30/20 01/30/20 12:21 16:51 22:54 WBC RBC Hgb Hct MCV MCH RDW Lymph % (Auto) Lymph # Seg Neutrophils % Seg Neuts % (Manual) Lymphocytes % (Manual) Nucleated RBC % Seg Neutrophils # Seg Neutrophils # Man Lymphocytes # (Manual) PT INR D-Dimer ABG pH ABG pO2 ABG HCO3 ABG O2 Saturation ABG Base Excess ABG Hemoglobin Oxyhemoglobin Sodium Potassium Chloride Carbon Dioxide BUN Creatinine Glucose POC Glucose 147 H 119 H 129 H Hemoglobin A1c Lactic Acid Calcium Magnesium Ferritin AST ALT Alkaline Phosphatase Lactate Dehydrogenase C-Reactive Protein Total Protein Albumin Vancomycin Trough Random Vancomycin Miscellaneous Test 01/31/20 01/31/20 01/31/20 03:49 03:49 03:49 WBC RBC Hgb Hct MCV MCH RDW Lymph % (Auto) Lymph # Seg Neutrophils % Seg Neuts % (Manual) Lymphocytes % (Manual) Nucleated RBC % Seg Neutrophils # Seg Neutrophils # Man Lymphocytes # (Manual) PT INR D-Dimer 801.37 H ABG pH ABG pO2 ABG HCO3 ABG O2 Saturation ABG Base Excess ABG Hemoglobin Oxyhemoglobin Sodium 134 L Potassium Chloride Carbon Dioxide 13 L BUN 97 H Creatinine 4.8 H Glucose 123 H POC Glucose Hemoglobin A1c Lactic Acid Calcium 7.6 L Magnesium Ferritin 3101.0 H AST 112 H ALT 112 H Alkaline Phosphatase 145 H Lactate Dehydrogenase 896 H C-Reactive Protein 11.10 H Total Protein 5.5 L Albumin 1.7 L Vancomycin Trough Random Vancomycin Miscellaneous Test 01/31/20 01/31/20 01/31/20 03:49 08:00 11:48 WBC 16.1 H RBC Hgb Hct MCV MCH 25 L RDW Lymph % (Auto) Lymph # Seg Neutrophils % Seg Neuts % (Manual) Lymphocytes % (Manual) Nucleated RBC % Seg Neutrophils # Seg Neutrophils # Man Lymphocytes # (Manual) PT INR D-Dimer ABG pH ABG pO2 ABG HCO3 ABG O2 Saturation ABG Base Excess ABG Hemoglobin Oxyhemoglobin Sodium Potassium Chloride Carbon Dioxide BUN Creatinine Glucose POC Glucose 133 H 136 H Hemoglobin A1c Lactic Acid Calcium Magnesium Ferritin AST ALT Alkaline Phosphatase Lactate Dehydrogenase C-Reactive Protein Total Protein Albumin Vancomycin Trough Random Vancomycin Miscellaneous Test 01/31/20 01/31/20 01/31/20 16:14 21:37 22:35 WBC RBC Hgb Hct MCV MCH RDW Lymph % (Auto) Lymph # Seg Neutrophils % Seg Neuts % (Manual) Lymphocytes % (Manual) Nucleated RBC % Seg Neutrophils # Seg Neutrophils # Man Lymphocytes # (Manual) PT INR D-Dimer ABG pH 7.226 L ABG pO2 77.9 L ABG HCO3 15.2 L ABG O2 Saturation 93.5 L ABG Base Excess -11.6 L ABG Hemoglobin Oxyhemoglobin 91.5 L Sodium Potassium Chloride Carbon Dioxide BUN Creatinine Glucose POC Glucose 151 H 179 H Hemoglobin A1c Lactic Acid Calcium Magnesium Ferritin AST ALT Alkaline Phosphatase Lactate Dehydrogenase C-Reactive Protein Total Protein Albumin Vancomycin Trough Random Vancomycin Miscellaneous Test 02/01/20 02/01/20 02/01/20 03:49 03:49 04:30 WBC 19.3 H RBC 3.53 L Hgb 9.0 L Hct 28.1 L MCV MCH 26 L RDW Lymph % (Auto) Lymph # Seg Neutrophils % Seg Neuts % (Manual) Lymphocytes % (Manual) Nucleated RBC % Seg Neutrophils # Seg Neutrophils # Man Lymphocytes # (Manual) PT INR D-Dimer ABG pH 7.290 L ABG pO2 120.0 H ABG HCO3 14.2 L ABG O2 Saturation ABG Base Excess -11.2 L ABG Hemoglobin 9.3 L Oxyhemoglobin Sodium 135 L Potassium Chloride Carbon Dioxide 13 L BUN 79 H Creatinine 4.1 H Glucose 198 H POC Glucose Hemoglobin A1c Lactic Acid Calcium 7.0 L Magnesium Ferritin AST ALT Alkaline Phosphatase Lactate Dehydrogenase C-Reactive Protein Total Protein Albumin Vancomycin Trough Random Vancomycin Miscellaneous Test 02/01/20 02/01/20 02/02/20 08:13 11:29 00:05 WBC RBC Hgb Hct MCV MCH RDW Lymph % (Auto) Lymph # Seg Neutrophils % Seg Neuts % (Manual) Lymphocytes % (Manual) Nucleated RBC % Seg Neutrophils # Seg Neutrophils # Man Lymphocytes # (Manual) PT INR D-Dimer ABG pH ABG pO2 ABG HCO3 ABG O2 Saturation ABG Base Excess ABG Hemoglobin Oxyhemoglobin Sodium Potassium Chloride Carbon Dioxide BUN Creatinine Glucose POC Glucose 153 H 181 H 214 H Hemoglobin A1c Lactic Acid Calcium Magnesium Ferritin AST ALT Alkaline Phosphatase Lactate Dehydrogenase C-Reactive Protein Total Protein Albumin Vancomycin Trough Random Vancomycin Miscellaneous Test 02/02/20 02/02/20 02/02/20 04:17 04:30 04:30 WBC RBC Hgb Hct MCV MCH RDW Lymph % (Auto) Lymph # Seg Neutrophils % Seg Neuts % (Manual) Lymphocytes % (Manual) Nucleated RBC % Seg Neutrophils # Seg Neutrophils # Man Lymphocytes # (Manual) PT INR D-Dimer 795.93 H ABG pH ABG pO2 ABG HCO3 ABG O2 Saturation ABG Base Excess -3.0 L ABG Hemoglobin 8.5 L Oxyhemoglobin Sodium Potassium Chloride Carbon Dioxide BUN Creatinine Glucose POC Glucose Hemoglobin A1c Lactic Acid Calcium Magnesium Ferritin 1978.0 H AST ALT Alkaline Phosphatase Lactate Dehydrogenase C-Reactive Protein Total Protein Albumin Vancomycin Trough Random Vancomycin Miscellaneous Test 02/02/20 02/02/20 02/02/20 04:30 04:30 05:34 WBC 17.3 H RBC 3.24 L Hgb 8.4 L Hct 24.9 L MCV 77 L MCH 26 L RDW Lymph % (Auto) Lymph # Seg Neutrophils % Seg Neuts % (Manual) Lymphocytes % (Manual) Nucleated RBC % Seg Neutrophils # Seg Neutrophils # Man Lymphocytes # (Manual) PT INR D-Dimer ABG pH ABG pO2 ABG HCO3 ABG O2 Saturation ABG Base Excess ABG Hemoglobin Oxyhemoglobin Sodium Potassium Chloride Carbon Dioxide 17 L BUN 61 H Creatinine 4.1 H Glucose 244 H POC Glucose 274 H Hemoglobin A1c Lactic Acid Calcium 7.2 L Magnesium Ferritin AST ALT Alkaline Phosphatase Lactate Dehydrogenase 841 H C-Reactive Protein 11.50 H Total Protein Albumin Vancomycin Trough Random Vancomycin Miscellaneous Test 02/02/20 02/02/20 02/02/20 12:26 18:06 23:37 WBC RBC Hgb Hct MCV MCH RDW Lymph % (Auto) Lymph # Seg Neutrophils % Seg Neuts % (Manual) Lymphocytes % (Manual) Nucleated RBC % Seg Neutrophils # Seg Neutrophils # Man Lymphocytes # (Manual) PT INR D-Dimer ABG pH ABG pO2 ABG HCO3 ABG O2 Saturation ABG Base Excess ABG Hemoglobin Oxyhemoglobin Sodium Potassium Chloride Carbon Dioxide BUN Creatinine Glucose POC Glucose 254 H 285 H 239 H Hemoglobin A1c Lactic Acid Calcium Magnesium Ferritin AST ALT Alkaline Phosphatase Lactate Dehydrogenase C-Reactive Protein Total Protein Albumin Vancomycin Trough Random Vancomycin Miscellaneous Test 02/03/20 02/03/20 02/03/20 04:40 04:56 10:41 WBC RBC Hgb Hct MCV MCH RDW Lymph % (Auto) Lymph # Seg Neutrophils % Seg Neuts % (Manual) Lymphocytes % (Manual) Nucleated RBC % Seg Neutrophils # Seg Neutrophils # Man Lymphocytes # (Manual) PT INR D-Dimer ABG pH 7.520 H ABG pO2 73.8 L 92.5 H ABG HCO3 ABG O2 Saturation ABG Base Excess ABG Hemoglobin 8.6 L 7.9 L Oxyhemoglobin Sodium Potassium Chloride Carbon Dioxide BUN Creatinine Glucose POC Glucose 227 H Hemoglobin A1c Lactic Acid Calcium Magnesium Ferritin AST ALT Alkaline Phosphatase Lactate Dehydrogenase C-Reactive Protein Total Protein Albumin Vancomycin Trough Random Vancomycin Miscellaneous Test 02/03/20 02/03/20 02/03/20 12:09 17:23 23:41 WBC RBC Hgb Hct MCV MCH RDW Lymph % (Auto) Lymph # Seg Neutrophils % Seg Neuts % (Manual) Lymphocytes % (Manual) Nucleated RBC % Seg Neutrophils # Seg Neutrophils # Man Lymphocytes # (Manual) PT INR D-Dimer ABG pH ABG pO2 ABG HCO3 ABG O2 Saturation ABG Base Excess ABG Hemoglobin Oxyhemoglobin Sodium Potassium Chloride Carbon Dioxide BUN Creatinine Glucose POC Glucose 268 H 255 H 239 H Hemoglobin A1c Lactic Acid Calcium Magnesium Ferritin AST ALT Alkaline Phosphatase Lactate Dehydrogenase C-Reactive Protein Total Protein Albumin Vancomycin Trough Random Vancomycin Miscellaneous Test 02/04/20 02/04/20 02/04/20 04:31 04:42 04:42 WBC RBC Hgb Hct MCV MCH RDW Lymph % (Auto) Lymph # Seg Neutrophils % Seg Neuts % (Manual) Lymphocytes % (Manual) Nucleated RBC % Seg Neutrophils # Seg Neutrophils # Man Lymphocytes # (Manual) PT INR D-Dimer 694.19 H ABG pH ABG pO2 ABG HCO3 ABG O2 Saturation ABG Base Excess ABG Hemoglobin Oxyhemoglobin Sodium Potassium Chloride Carbon Dioxide BUN Creatinine Glucose POC Glucose 216 H Hemoglobin A1c Lactic Acid Calcium Magnesium Ferritin 1660.0 H AST ALT Alkaline Phosphatase Lactate Dehydrogenase C-Reactive Protein Total Protein Albumin Vancomycin Trough Random Vancomycin Miscellaneous Test 02/04/20 02/04/20 02/04/20 04:42 04:42 12:03 WBC 13.7 H RBC 2.92 L Hgb 7.4 L Hct 23.0 L MCV MCH 25 L RDW Lymph % (Auto) Lymph # Seg Neutrophils % Seg Neuts % (Manual) Lymphocytes % (Manual) Nucleated RBC % Seg Neutrophils # Seg Neutrophils # Man Lymphocytes # (Manual) PT INR D-Dimer ABG pH ABG pO2 ABG HCO3 ABG O2 Saturation ABG Base Excess ABG Hemoglobin Oxyhemoglobin Sodium Potassium Chloride Carbon Dioxide 17 L BUN 80 H Creatinine 5.8 H Glucose 209 H POC Glucose 248 H Hemoglobin A1c Lactic Acid Calcium 8.3 L D Magnesium Ferritin AST ALT Alkaline Phosphatase Lactate Dehydrogenase 972 H C-Reactive Protein 6.20 H Total Protein Albumin Vancomycin Trough Random Vancomycin Miscellaneous Test 02/04/20 02/04/20 02/04/20 17:42 23:48 Unknown WBC RBC Hgb Hct MCV MCH RDW Lymph % (Auto) Lymph # Seg Neutrophils % Seg Neuts % (Manual) Lymphocytes % (Manual) Nucleated RBC % Seg Neutrophils # Seg Neutrophils # Man Lymphocytes # (Manual) PT INR D-Dimer ABG pH 7.484 H ABG pO2 104.8 H ABG HCO3 ABG O2 Saturation ABG Base Excess ABG Hemoglobin 9.5 L Oxyhemoglobin Sodium Potassium Chloride Carbon Dioxide BUN Creatinine Glucose POC Glucose 209 H 166 H Hemoglobin A1c Lactic Acid Calcium Magnesium Ferritin AST ALT Alkaline Phosphatase Lactate Dehydrogenase C-Reactive Protein Total Protein Albumin Vancomycin Trough Random Vancomycin Miscellaneous Test 02/05/20 02/05/20 02/05/20 03:51 03:51 05:43 WBC 13.9 H RBC 2.98 L Hgb 7.6 L Hct 23.4 L MCV MCH 26 L RDW Lymph % (Auto) Lymph # Seg Neutrophils % Seg Neuts % (Manual) Lymphocytes % (Manual) Nucleated RBC % Seg Neutrophils # Seg Neutrophils # Man Lymphocytes # (Manual) PT INR D-Dimer ABG pH ABG pO2 ABG HCO3 ABG O2 Saturation ABG Base Excess ABG Hemoglobin Oxyhemoglobin Sodium Potassium Chloride Carbon Dioxide 19 L BUN 65 H Creatinine 5.9 H Glucose 167 H POC Glucose 148 H Hemoglobin A1c Lactic Acid Calcium 8.3 L Magnesium Ferritin AST ALT Alkaline Phosphatase Lactate Dehydrogenase C-Reactive Protein Total Protein Albumin Vancomycin Trough Random Vancomycin Miscellaneous Test 02/05/20 02/05/20 02/05/20 12:34 18:55 23:48 WBC RBC Hgb Hct MCV MCH RDW Lymph % (Auto) Lymph # Seg Neutrophils % Seg Neuts % (Manual) Lymphocytes % (Manual) Nucleated RBC % Seg Neutrophils # Seg Neutrophils # Man Lymphocytes # (Manual) PT INR D-Dimer ABG pH ABG pO2 ABG HCO3 ABG O2 Saturation ABG Base Excess ABG Hemoglobin Oxyhemoglobin Sodium Potassium Chloride Carbon Dioxide BUN Creatinine Glucose POC Glucose 267 H 166 H 241 H Hemoglobin A1c Lactic Acid Calcium Magnesium Ferritin AST ALT Alkaline Phosphatase Lactate Dehydrogenase C-Reactive Protein Total Protein Albumin Vancomycin Trough Random Vancomycin Miscellaneous Test 02/05/20 02/06/20 02/06/20 Unknown 03:38 03:38 WBC RBC Hgb Hct MCV MCH RDW Lymph % (Auto) Lymph # Seg Neutrophils % Seg Neuts % (Manual) Lymphocytes % (Manual) Nucleated RBC % Seg Neutrophils # Seg Neutrophils # Man Lymphocytes # (Manual) PT INR D-Dimer 1067.61 H ABG pH 7.497 H ABG pO2 111.6 H ABG HCO3 ABG O2 Saturation ABG Base Excess ABG Hemoglobin 7.4 L Oxyhemoglobin Sodium Potassium Chloride Carbon Dioxide BUN Creatinine Glucose POC Glucose Hemoglobin A1c Lactic Acid Calcium Magnesium Ferritin 1277.0 H AST ALT Alkaline Phosphatase Lactate Dehydrogenase C-Reactive Protein Total Protein Albumin Vancomycin Trough Random Vancomycin Miscellaneous Test 02/06/20 02/06/20 02/06/20 03:38 03:38 06:04 WBC 13.8 H RBC 3.16 L Hgb 8.0 L Hct 25.7 L MCV MCH 25 L RDW Lymph % (Auto) Lymph # Seg Neutrophils % Seg Neuts % (Manual) Lymphocytes % (Manual) Nucleated RBC % Seg Neutrophils # Seg Neutrophils # Man Lymphocytes # (Manual) PT INR D-Dimer ABG pH ABG pO2 ABG HCO3 ABG O2 Saturation ABG Base Excess ABG Hemoglobin Oxyhemoglobin Sodium Potassium Chloride Carbon Dioxide 21 L BUN 66 H Creatinine 6.0 H Glucose 213 H POC Glucose 232 H Hemoglobin A1c Lactic Acid Calcium Magnesium Ferritin AST ALT Alkaline Phosphatase Lactate Dehydrogenase 48 L C-Reactive Protein Total Protein Albumin Vancomycin Trough Random Vancomycin Miscellaneous Test Allied health notes reviewed: nursing
--- NOTE | 2020-02-06 14:19 | Progress Note ---
Assessment and Plan Cultures: Blood culture 01/17/2020 no growth to date Urine culture 01/17/2020 no growth to date Sputum normal resp dulce OR culture no growth today A/P: 29-year-old female past medical history diabetes admitted with acute sepsis secondary to right foot wound versus pneumonia. #Acute sepsis: nfeer resolved, now leukoctosis improving. Secondary to her left tight abscess versus pneumonia. #Severe COVID-19 pneumonia: Coronavirus testing has returned positive. Very high inflammatory markers - ferritin 2758. Markers down. IL-6 elevated 105. S/p plaquenil Day 5 #Acute respiratory failure:self extubated on venturi mask #Left thigh abscess: surgery on board s/p I+D #Right foot wound: Will need MRI when more stable to rule out osteomyelitis of the toe #Diabetes: uncontrolled #CIPRIANO: renally adjust abx, worsening on HD #Morbid obesity Recs: Continue zosyn renally adjusted Day Continuos pulse oximetry ContinueCOVID isolationprecautions per [facility] protocol will follow Janett Duffy MD Infectious Diseases [employer] Picture [employer] [facility] ([facility]) M [phone] O [phone] Subjective Date of service: 02/06/20 Principal diagnosis: Severe Sepsis; LEV PNA; DM II; Morbid obesity; R/O COVID-19 infection Interval history: Alert self extubated on 02/04 no fever on 24h, on venturi mask 15L 40% PUI?: No COVID19: Positive Objective - Exam Narrative Exam: Constitutional: alert on venturi mask Oral: limited due to lack opf PPE Cardiovascular: Respiratory: GI: Soft, obese Musculoskeletal: Right hallux wound, left foot callus. Left thigh surgical wound Skin: Hem/Lymphatic: Psych: alert Neurological: alert - Constitutional Vitals: Vital Signs Temp Pulse Resp BP Pulse Ox 99.7 F H 91 H 15 137/63 99 02/06/20 08:00 02/06/20 10:00 02/06/20 10:00 02/06/20 10:00 02/06/20 10:00 Temperature -Last 24 Hours Temperature 99.7 F Temperature 99.0 F Temperature 99.3 F Temperature 98.9 F Temperature 98.5 F Temperature 98.5 F Temperature 98.5 F - Labs CBC & Chem 7: 02/06/20 03:38 02/06/20 03:38 Labs: Abnormal lab results 02/05/20 02/05/20 02/06/20 Range/Units 18:55 23:48 03:38 WBC (4.5-11.0) K/mm3 RBC (3.65-5.03) M/mm3 Hgb (10.1-14.3) gm/dl Hct (30.3-42.9) % MCH (28-32) pg D-Dimer 1067.61 H (0-234) ng/mlDDU Carbon Dioxide (22-30) mmol/L BUN (7-17) mg/dL Creatinine (0.7-1.2) mg/dL Glucose (65-100) mg/dL POC Glucose 166 H 241 H (70-105) Ferritin (13.0-400.0) ng/mL Lactate Dehydrogenase (91-180) units/L 02/06/20 02/06/20 02/06/20 Range/Units 03:38 03:38 03:38 WBC 13.8 H (4.5-11.0) K/mm3 RBC 3.16 L (3.65-5.03) M/mm3 Hgb 8.0 L (10.1-14.3) gm/dl Hct 25.7 L (30.3-42.9) % MCH 25 L (28-32) pg D-Dimer (0-234) ng/mlDDU Carbon Dioxide 21 L (22-30) mmol/L BUN 66 H (7-17) mg/dL Creatinine 6.0 H (0.7-1.2) mg/dL Glucose 213 H (65-100) mg/dL POC Glucose (70-105) Ferritin 1277.0 H (13.0-400.0) ng/mL Lactate Dehydrogenase 48 L (91-180) units/L 02/06/20 Range/Units 06:04 WBC (4.5-11.0) K/mm3 RBC (3.65-5.03) M/mm3 Hgb (10.1-14.3) gm/dl Hct (30.3-42.9) % MCH (28-32) pg D-Dimer (0-234) ng/mlDDU Carbon Dioxide (22-30) mmol/L BUN (7-17) mg/dL Creatinine (0.7-1.2) mg/dL Glucose (65-100) mg/dL POC Glucose 232 H (70-105) Ferritin (13.0-400.0) ng/mL Lactate Dehydrogenase (91-180) units/L
--- NOTE | 2020-02-06 15:34 | Progress Note ---
Assessment and Plan Assessment and plan: 29-year-old female with known history of diabetes mellitus presenting to the emergency room today complaining of pain on the right big toe. Patient had an injury to the right big toe about 2 to 3 weeks ago when an object fell on the toe. She has gone to an urgent care facility where she was given some antibiotics namely Bactrim to the right big toe wound. She has noticed that the wound has not improved and she has been having progressive pain. She denies any fever or chills, no nausea vomiting, no cough or shortness of breath, no chest pain. She denies any sick contacts and no recent travel. Work-up in the emergency room reveals hyperglycemia chest x-ray also reveals a left-sided pneumonia with accompanying sepsis. Patient started on empiric IV antibiotics. She is also given a tetanus vacc ination. Per the ED doctor the wound itself did not appear overtly superinfected. Although however the patient was tachycardic and febrile and as part of sepsis work-up as her labs indicated hyperglycemia with pseudohyponatremia, minimal anion gap acidosis, and a left-sided pulmonary infiltrate. Given the magnitude of her abnormal vital signs, concomitant diabetes, metabolic derangement, daily maciel meets criteria for hospitalization. We will treat her empirically for community-acquired pneumonia. She does not endorse any sick contacts or exposures to individuals with coronavirus. Nevertheless her test was sent and patient returned COVID positive. January 24 the patient results for COVID 19 came back positive. 01/28: In addition to treatment as noted below patient was noted to have indura cruz area in the left thigh, Concerning for abscess development. Will obtain CT of the lower extremity 01/29: Patient noted hypotensive. She is refusing her p.o. week to be placed she sustained a fall overnight while trying to walk to the bathroom. CT of the lower extremity still pending we will proceed with consult to surgeons. We will discontinue all blood pressure medications give a bolus of fluid while mindful of possible developing ARDS. We will also obtain repeated chest x-ray as patient appears more toxic today. 01/31: Patient reintubated about 30 minutes after surgical procedure due to decompensation with hypotension and hypoxemia despite 100% oxygen and CPAP. Patient remains currently on the vent. We will continue dialysis. While real estate analyst assist with managing ventilator. We will continue to adjust blood sugar for better control. Patient is critically ill this has been conveyed to the family prior. 02/01: Mild improvement in inflammatory markers and chest x-ray. Otherwise patient still remains on mechanical ventilation still at high risk for ARDS mitigation processes are in place and plan. Continue aggressive management. She unfortunately still with low-grade intermittent fevers. Despite improvement in WBC. 02/02: Clinically stable wound VAC remains in place and functioning. Trial of CPAP today. Will recheck labs in a.m. inflammatory markers continue to improve ferritin is down to the 1900 range. 02/03: Inflammatory markers appear to be improving. There is some mild trickling down of hemoglobin we will continue to monitor this. Patient continues to tolerate dialysis. 02/04: Extubated, updated family. Continue aggressive management, wound care nurse dressed wound change dressing noted today good viable wound bed noted. As patient continues to improve we will consider transfer to [facility] in a.m. Infl ammatory markers now improving. 02/05: Continues to improve, awaiting to have speech testing done. Patient doing well on oxygen post extubation. Continue aggressive wound management. Discussed with CM about transfer to [facility] if they will accept because patient has a long recovery ahead. COVID 19 induced pneumonia Acute on chronic respiratory failure with postoperative decompensation now requiring mechanical ventilation Acute metabolic encephalopathy Left thigh abscess status post I&D Multiple Organ Failure Severe Sepsis Diabetic foot wound nonhealing Morbid obesity hypoventilation syndrome Acute kidney injury secondary to vasomotor nephropathy Metabolic Acidosis Hypokalemia-resolved Presumed thigh abscess. Anemia Hyponatremia-resolving Diabetes mellitus with uncontrolled blood sugar Morbid obesity Hypertension monitor closely for septic shock Malnutrition: Decreased p.o. intake Severe Protein calorie ?Bundle Branch block- await EKG Plan -Continue current work-up as dictated by infectious disease doctors will include Plaquenil and zinc combination. -s/p extensive I&D of left thigh abscess with sepsis and showing signs of multisystem organ insufficiency requiring ventilator support, possible dialysis, and vasopressers. wound vac was placed with wound care nurse. Next vac change scheduled for Tuesday. Continue abx and supportive care. -right-sided common femoral catheter placed for dialysis. -Very high inflammatory markers - ferritin . Ferritin elevated, CRP/LDH improving. Risk for cytokine storm secondary to COVID and high risk for ARDS -Patient may need to be on BiPAP if respiratory status is not improving and she continues to get weaker. -Vancomycin has been discontinued. -Follow culture from surgical procedure -Continue isolation and droplet precautions. Continuous pulse oximetry and telemetry. -Tight diabetic control -To the wound care -MRI of the right foot outpatient deferred due to COVID 19 treatment and nonemergent at this time -Replace electrolytes as needed -Obtain serial Ferritin, LDH, D-Dimer, CRP every 48h -Daily EKG - QT monitoring - stop plaqenil if QT interval >500 -Obtain IL-6 (sent out) to evaluate cytokine release syndrome due to COVID -Weight loss recommendations on discharge Family updated The high probability of a clinically significant, sudden or life threatening deterioration of the [pulmonary, renal, ] system(s) required my full and direct attention, intervention and personal management. The aggregate critical care time was [35] minutes. This time is in addition to time spent performing reported procedures but includes the following: [x] Data Review and interpretation [x] Patient assessment and monitoring of vital signs [x] Documentation [x] Medication orders and management History Interval history: Patient seen and examined remains, self extubated yesterday and is stable at this time, will transfer to floor. PUI?: No COVID19: Positive Hospitalist Physical - Physical exam Narrative exam: VITAL SIGNS: Reviewed. GENERAL: The patient appears normally developed, on mechanical ventilator Vital signs as documented. HEAD: No signs of head trauma. EYES: unable to examine MOUTH: orophyrangyael site is normal CHEST: unable to examine, observed from window rise of chest wall CARDIAC: unable to examine, telemetry denotes, SR MUSCULOSKELETAL: dressing around site of I/D and wound VAC is in place Extremities without clubbing, cyanosis +edema. NEUROLOGIC EXAM: SEDATED Exam is limited due to PPE deficiency. - Constitutional Vitals: Temp Pulse Resp BP Pulse Ox 99.7 F H 91 H 15 137/63 99 02/06/20 08:00 02/06/20 10:00 02/06/20 10:00 02/06/20 10:00 02/06/20 10:00 General appearance: Present: no acute distress Results - Labs CBC & Chem 7: 02/06/20 03:38 02/06/20 03:38 Labs: Laboratory Last Values WBC 13.8 K/mm3 (4.5-11.0) H 02/06/20 03:38 RBC 3.16 M/mm3 (3.65-5.03) L 02/06/20 03:38 Hgb 8.0 gm/dl (10.1-14.3) L 02/06/20 03:38 Hct 25.7 % (30.3-42.9) L 02/06/20 03:38 MCV 81 fl (79-97) 02/06/20 03:38 MCH 25 pg (28-32) L 02/06/20 03:38 MCHC 31 % (30-34) 02/06/20 03:38 RDW 13.6 % (13.2-15.2) 02/06/20 03:38 Plt Count 169 K/mm3 (140-440) 02/06/20 03:38 Lymph % (Auto) 16.6 % (13.4-35.0) 01/18/20 08:30 [place] % (Auto) 2.8 % (0.0-7.3) 01/18/20 08:30 Eos % (Auto) 0.1 % (0.0-4.3) 01/18/20 08:30 Baso % (Auto) 0.4 % (0.0-1.8) 01/18/20 08:30 Lymph # 1.2 K/mm3 (1.2-5.4) 01/18/20 08:30 [place] # 0.2 K/mm3 (0.0-0.8) 01/18/20 08:30 Eos # 0.0 K/mm3 (0.0-0.4) 01/18/20 08:30 Baso # 0.0 K/mm3 (0.0-0.1) 01/18/20 08:30 Add Manual Diff Complete 01/26/20 05:40 Total Counted 100 01/26/20 05:40 Seg Neutrophils % Blow Down Helper 01/26/20 05:40 Seg Neuts % (Manual) 90.0 % (40.0-70.0) H 01/26/20 05:40 Band Neutrophils % 5.0 % 01/26/20 05:40 Lymphocytes % (Manual) 1.0 % (13.4-35.0) L 01/26/20 05:40 Reactive Lymphs % (Man) 0 % 01/26/20 05:40 Monocytes % (Manual) 2.0 % (0.0-7.3) 01/26/20 05:40 Eosinophils % (Manual) 2.0 % (0.0-4.3) 01/26/20 05:40 Basophils % (Manual) 0 % (0.0-1.8) 01/26/20 05:40 Metamyelocytes % 0 % 01/26/20 05:40 Myelocytes % 0 % 01/26/20 05:40 Promyelocytes % 0 % 01/26/20 05:40 Blast Cells % 0 % 01/26/20 05:40 Nucleated RBC % 1.0 % (0.0-0.9) H 01/26/20 05:40 Seg Neutrophils # 5.9 K/mm3 (1.8-7.7) 01/18/20 08:30 Seg Neutrophils # Man 14.8 K/mm3 (1.8-7.7) H 01/26/20 05:40 Band Neutrophils # 0.8 K/mm3 01/26/20 05:40 Lymphocytes # (Manual) 0.2 K/mm3 (1.2-5.4) L 01/26/20 05:40 Abs React Lymphs (Man) 0.0 K/mm3 01/26/20 05:40 Monocytes # (Manual) 0.3 K/mm3 (0.0-0.8) 01/26/20 05:40 Eosinophils # (Manual) 0.3 K/mm3 (0.0-0.4) 01/26/20 05:40 Basophils # (Manual) 0.0 K/mm3 (0.0-0.1) 01/26/20 05:40 Metamyelocytes # 0.0 K/mm3 01/26/20 05:40 Myelocytes # 0.0 K/mm3 01/26/20 05:40 Promyelocytes # 0.0 K/mm3 01/26/20 05:40 Blast Cells # 0.0 K/mm3 01/26/20 05:40 WBC Morphology Not Reportable 01/26/20 05:40 Hypersegmented Neuts Not Reportable 01/26/20 05:40 Hyposegmented Neuts Not Reportable 01/26/20 05:40 Hypogranular Neuts Not Reportable 01/26/20 05:40 Smudge Cells Not Reportable 01/26/20 05:40 Toxic Granulation Not Reportable 01/26/20 05:40 Toxic Vacuolation Not Reportable 01/26/20 05:40 Dohle Bodies Not Reportable 01/26/20 05:40 Pelger-Huet Anomaly Not Reportable 01/26/20 05:40 Barbie Rods Not Reportable 01/26/20 05:40 Platelet Estimate Consistent w auto 01/26/20 05:40 Clumped Platelets Not Reportable 01/26/20 05:40 Plt Clumps, EDTA Not Reportable 01/26/20 05:40 Large Platelets Not Reportable 01/26/20 05:40 Giant Platelets Not Reportable 01/26/20 05:40 Platelet Satelliting Not Reportable 01/26/20 05:40 Plt Morphology Comment Not Reportable 01/26/20 05:40 RBC Morphology Normal 01/26/20 05:40 Dimorphic RBCs Not Reportable 01/26/20 05:40 Polychromasia Not Reportable 01/26/20 05:40 Hypochromasia Not Reportable 01/26/20 05:40 Poikilocytosis Not Reportable 01/26/20 05:40 Anisocytosis Not Reportable 01/26/20 05:40 Microcytosis Not Reportable 01/26/20 05:40 Macrocytosis Not Reportable 01/26/20 05:40 Spherocytes Not Reportable 01/26/20 05:40 Pappenheimer Bodies Not Reportable 01/26/20 05:40 Sickle Cells Not Reportable 01/26/20 05:40 Target Cells Not Reportable 01/26/20 05:40 Tear Drop Cells Not Reportable 01/26/20 05:40 Ovalocytes Not Reportable 01/26/20 05:40 Helmet Cells Not Reportable 01/26/20 05:40 [place] Bodies Not Reportable 01/26/20 05:40 [place] Rings Not Reportable 01/26/20 05:40 Pauline Cells Not Reportable 01/26/20 05:40 Bite Cells Not Reportable 01/26/20 05:40 Crenated Cell Not Reportable 01/26/20 05:40 Elliptocytes Not Reportable 01/26/20 05:40 Acanthocytes (Spur) Not Reportable 01/26/20 05:40 Rouleaux Not Reportable 01/26/20 05:40 Hemoglobin C Crystals Not Reportable 01/26/20 05:40 Schistocytes Not Reportable 01/26/20 05:40 Malaria parasites Not Reportable 01/26/20 05:40 ESR 70 mm/Hr (0-20) 01/17/20 22:58 Ras Bodies Not Reportable 01/26/20 05:40 Hem Pathologist Commnt No 01/26/20 05:40 PT 15.6 Sec. (12.2-14.9) H 01/17/20 18:28 INR 1.22 (0.87-1.13) H 01/17/20 18:28 D-Dimer 1067.61 ng/mlDDU (0-234) H 02/06/20 03:38 ABG pH 7.497 pH Units (7.350-7.450) H 02/05/20 Unknown ABG pCO2 30.2 mm Hg 02/05/20 Unknown ABG pO2 111.6 mm Hg (80.0-90.0) H 02/05/20 Unknown ABG HCO3 22.9 mmol/L (20.0-26.0) 02/05/20 Unknown ABG O2 Saturation 98.3 % (95.0-99.0) 02/05/20 Unknown ABG O2 Content 10.3 (0.0-44) 02/05/20 Unknown ABG Base Excess -0.1 mmol/L (-2.0-3.0) 02/05/20 Unknown ABG Hemoglobin 7.4 gm/dl (12.0-16.0) L 02/05/20 Unknown ABG Carboxyhemoglobin 1.3 % (0.0-5.0) 02/05/20 Unknown ABG Methemoglobin 0.4 % (0.0-1.5) 02/05/20 Unknown VBG pH 7.409 (7.320-7.420) 01/17/20 18:28 Oxyhemoglobin 96.7 % (95.0-99.0) 02/05/20 Unknown FiO2 40 % 02/05/20 Unknown Sodium 138 mmol/L (137-145) 02/06/20 03:38 Potassium 4.4 mmol/L (3.6-5.0) 02/06/20 03:38 Chloride 98.5 mmol/L (98-107) 02/06/20 03:38 Carbon Dioxide 21 mmol/L (22-30) L 02/06/20 03:38 Anion Gap 23 mmol/L 02/06/20 03:38 BUN 66 mg/dL (7-17) H 02/06/20 03:38 Creatinine 6.0 mg/dL (0.7-1.2) H 02/06/20 03:38 Estimated GFR 10 ml/min 02/06/20 03:38 BUN/Creatinine Ratio 11 % 02/06/20 03:38 Glucose 213 mg/dL (65-100) H 02/06/20 03:38 POC Glucose 232 (70-105) H 02/06/20 06:04 Hemoglobin A1c 11.6 % (4-6) H 01/18/20 12:47 Lactic Acid 1.30 mmol/L (0.7-2.0) 01/18/20 08:30 Calcium 8.4 mg/dL (8.4-10.2) 02/06/20 03:38 Magnesium 1.50 mg/dL (1.7-2.3) L 01/17/20 22:58 Ferritin 1277.0 ng/mL (13.0-400.0) H 02/06/20 03:38 Total Bilirubin 0.50 mg/dL (0.1-1.2) 01/31/20 03:49 AST 112 units/L (5-40) H 01/31/20 03:49 ALT 112 units/L (7-56) H 01/31/20 03:49 Alkaline Phosphatase 145 units/L (35-129) H 01/31/20 03:49 Lactate Dehydrogenase 48 units/L (91-180) L 02/06/20 03:38 Total Creatine Kinase 122 units/L (30-135) 01/17/20 22:58 C-Reactive Protein 0.50 mg/dL (0.00-1.30) 02/06/20 03:38 Total Protein 5.5 g/dL (6.3-8.2) L 01/31/20 03:49 Albumin 1.7 g/dL (3.9-5) L 01/31/20 03:49 Albumin/Globulin Ratio 0.4 % 01/31/20 03:49 Procalcitonin 0.27 ng/mL (<0.15) 01/23/20 10:36 HCG, Qual Negative (Negative) 01/31/20 03:49 Urine Color Yellow (Yellow) 01/18/20 00:32 Urine Turbidity Slightly-cloudy (Clear) 01/18/20 00:32 Urine pH 5.0 (5.0-7.0) 01/18/20 00:32 Ur Specific [place] 1.011 (1.003-1.030) 01/18/20 00:32 Urine Protein 100 mg/dl mg/dL (Negative) 01/18/20 00:32 Urine Glucose (UA) >=500 mg/dL (Negative) 01/18/20 00:32 Urine Ketones Tr mg/dL (Negative) 01/18/20 00:32 Urine Blood Neg (Negative) 01/18/20 00:32 Urine Nitrite Neg (Negative) 01/18/20 00:32 Urine Bilirubin Neg (Negative) 01/18/20 00:32 Urine Urobilinogen < 2.0 mg/dL (<2.0) 01/18/20 00:32 Ur Leukocyte Esterase Neg (Negative) 01/18/20 00:32 Urine WBC (Auto) 2.0 /HPF (0.0-6.0) 01/18/20 00:32 Urine RBC (Auto) 4.0 /HPF (0.0-6.0) 01/18/20 00:32 U Epithel Cells (Auto) 2.0 /HPF (0-13.0) 01/18/20 00:32 Hyaline Casts 1 /LPF 01/18/20 00:32 Urine Mucus Few /HPF 01/18/20 00:32 Urine Yeast (Budding) Few /HPF 01/18/20 00:32 Vancomycin Trough 45.4 ug/mL (5.0-20.0) H 01/30/20 05:19 Random Vancomycin 30.6 ug/mL (0-40.0) 02/01/20 03:49 Hepatitis A IgM Ab Non-reactive (NonReactive) 02/01/20 10:57 Hep Bs Antigen Non-reactive (Negative) 02/01/20 10:57 Hep B Core IgM Ab Non-reactive (NonReactive) 02/01/20 10:57 Hepatitis C Antibody Non-reactive (NonReactive) 02/01/20 10:57 Influenza A (Rapid) Negative (Negative) 01/19/20 01:10 Influenza B (Rapid) Negative (Negative) 01/19/20 01:10 AFB Identification 01/20/20 04:00 Miscellaneous Test Flexitest 1 H 01/28/20 10:00 Microbiology: Microbiology 01/31/20 Unknown Thigh - Left Surgical Biopsy Culture - Preliminary Goldstein/IV: Voiding Method Condom Catheter IV Catheter Type [right ac] Peripheral IV IV Catheter Type [Right trialysis Femoral] IV Catheter Type [Right Peripheral IV Forearm] IV Catheter Type [Right Wrist] INT / Saline Lock IV Catheter Type [Right Hand] INT / Saline Lock IV Catheter Type [Right Upper INT / Saline Lock arm] IV Catheter Type [Left Hand] INT / Saline Lock Active Medications - Current Medications Current Medications: Generic Name Dose Route Start Last Admin Trade Name Freq PRN Reason Stop Dose Admin Acetaminophen 650 mg 01/17/20 23:06 01/29/20 22:43 Tylenol PO 650 mg Q4H PRN Administration Pain MILD(1-3)/Fever >100.5/COLLINS Lipase/Protease/Amylase 1 each 02/01/20 09:[address] 10,500 Unit FEEDTUBE PRN PRN For Clogged Feeding Tube Dextrose 0 ml 01/17/20 23:06 D50w (25gm) Syringe IV Q30MIN PRN Hypoglycemia Protocol Famotidine 20 mg 01/24/20 10:00 02/06/20 09:06 Pepcid PO 20 mg QDAY COBY Administration Fentanyl 12.5 mcg 02/05/20 12:00 Sublimaze IV Q4H PRN AGITATION/ANXIETY Heparin Sodium (Porcine) 5,000 unit 01/18/20 06:00 02/06/20 14:37 Heparin SUB-Q 5,000 unit Q8HR COBY Administration Hydralazine HCl 10 mg 01/18/20 22:14 01/22/20 18:43 Apresoline IV 10 mg Q6H PRN Administration Hypertension Hydrophilic Ointment 1 applic 01/31/20 21:48 Vaseline Lip Therapy TP Q2HR PRN Dry Lips Norepinephrine 4 mg in 250 mls @ 7.5 mls/hr 01/31/20 23:45 02/02/20 20:15 Levophed Drip 4 Mg/Ns 250 Ml IV 0 mcg/min TITR COBY 0 mls/hr Titration Protocol 2 MCG/MIN Piperacillin Sod/Tazobactam Sod 2.25 gm in 50 mls @ 100 mls/hr 02/01/20 14:00 02/06/20 05:40 Zosyn/Ns 2.25 Gm/50ml IV 02/07/20 23:59 100 mls/hr Q8HR COBY Administration Protocol Sodium Chloride 100 mls @ 999 mls/hr 02/05/20 11:31 Nacl 0.9% IV KIRSTEN PRN Hypotension Insulin Human Isoph/Insulin Regular 25 unit 02/06/20 22:00 Humulin 70/30 SUB-Q BID COBY Insulin Human Regular 0 units 02/01/20 12:00 02/06/20 12:16 Humulin R SUB-Q 4 units Q6HR COBY Administration Protocol Insulin Human Regular 5 units 02/04/20 12:00 02/06/20 12:17 Humulin R SUB-Q 5 units Q6HR COBY Administration Magnesium Hydroxide 30 ml 01/17/20 23:06 Milk Of Magnesia PO Q4H PRN Constipation Morphine Sulfate 2 mg 01/17/20 23:06 02/05/20 11:49 Morphine IV 2 mg Q4H PRN Administration Pain, Moderate (4-6) Multi-Ingred Cream/Lotion/Oil/Oint 1 applic 01/31/20 21:48 Artificial Tears Ophth Oint OU Q4HR PRN Dry Eye(s) Nystatin 1 applic 01/29/20 14:00 02/06/20 09:07 Nystop TP 1 applic BID COBY Administration Ondansetron HCl 4 mg 01/17/20 23:06 01/30/20 20:47 Zofran IV 4 mg Q8H PRN Administration Nausea And Vomiting Simple Syrup 15 ml 02/01/20 09:53 Simple Syrup FEEDTUBE PRN PRN Hypoglycemia Simple Syrup 30 ml 02/01/20 09:53 Simple Syrup FEEDTUBE PRN PRN Hypoglycemia Sodium Bicarbonate 325 mg 02/01/20 09:53 Sodium Bicarbonate FEEDTUBE PRN PRN For Clogged Feeding Tube Sodium Chloride 10 ml 01/18/20 10:00 02/06/20 09:06 Sodium Chloride Flush Syringe 10 Ml IV 10 ml BID COBY Administration Sodium Chloride 10 ml 01/17/20 23:06 02/04/20 05:07 Sodium Chloride Flush Syringe 10 Ml IV 10 ml PRN PRN Administration LINE FLUSH Nutrition/Malnutrition Assess - Dietary Evaluation Nutrition/Malnutrition Findings: Nutrition Notes Start: 01/18/20 13:13 Freq: Status: Active Protocol: Document 02/04/20 12:57 LM (Rec: 02/04/20 13:02 LM [id number]) Nutrition Notes Initial or Follow up Reassessment Current Diagnosis Diabetes,Sepsis Other Pertinent Diagnosis COVID-19 positive, LEV pnue, ( R) great toe wound Current Diet Vital HP 1.0 at 75ml/hr Labs/Tests Na 140 BUN 80 Cr 5.8 BG 209 Pertinent Medications Humulin Height 6 ft Weight 147.9 kg [place] Body Weight (kg) 72.72 BMI 44.1 Weight Status Morbidly Obese Subjective/Other Information Per RN pt is tolerating TF at goal. Na now in normal range. Percent of energy/protein needs met: 87%/86% Burn Absent Trauma Absent Current % PO Negligible Minimum of two criteria No physical signs of malnutrition #3 Nutrition Diagnosis Inadequate oral intake Diagnosis Progress(for reassessment Continues documentation) #2 Nutrition Diagnosis Inadequate protein-energy intake Diagnosis Progress(for reassessment Continues documentation) #1 Nutrition Diagnosis Increased nutrient needs ( specify in comment below) Diagnosis Progress(for reassessment Continues documentation) Is patient on ventilator? Yes Is Patient Ambulatory and/or Out of Bed Yes REE-(Upson-St. Jeor-ambulatory/OOB) [ 3004.300 [id number]] Kcal/Kg value to use for calculation 14 Approximate Energy Requirements Using 1 kcal/Kg Calculation Used for Recommendations Kcal/kg Additional Notes Protein: 183g (up to 2.5g/kg using IBW 73kg Fluid needs 1ml/kcal Nutrition Intervention Change Diet Order: Continue TF Nutrition Support: Vital HP 1.0 at 75ml/hr Flush 50 ml q4h Kcal 1,800 Protein (gm) 158 Fluid (mL) 1,505 Goal #1 TF tolerance Goal #2 Meet at least 75% of energy and protein needs via TF Goal #3 Wound healing Anticipated Discharge Needs: unable to determine at this time Follow-Up By: 02/11/20 Additional Comments F/U for TF tolerance
[2020-02-07 05:41] LABS: Hematocrit 26.6 % (30.3-42.9); Hemoglobin 8.3 gm/dl (10.1-14.3); Mean Corpuscular HGB Conc 31 % (30-34); Mean Corpuscular Volume 81 fl (79-97); Platelet Count 173 K/mm3 (140-440); Red Cell Distribution Width 13.3 % (13.2-15.2)
[2020-02-07] MEDS: PIPERACIL-TAZO 2.25 GM/50 ML 2.25 GM/50 ML BAG IV SCH ×4 (05:55→22:58)
[2020-02-07] MEDS: INSULIN REGULAR, HUMAN 100 UNITS/1 ML SUB-Q SCH ×6 (05:55→17:18)
[2020-02-07] MEDS: HEPARIN 5,000 UNIT/1 ML VIAL SUB-Q SCH ×3 (05:56→22:56)
[2020-02-07 06:07] LABS: Calcium 8.6 mg/dL (8.4-10.2)
--- NOTE | 2020-02-07 08:03 | Progress Note ---
Assessment and Plan Assessment and plan: 29-year-old female with known history of diabetes mellitus presenting to the emergency room today complaining of pain on the right big toe. Patient had an injury to the right big toe about 2 to 3 weeks ago when an object fell on the toe. She has gone to an urgent care facility where she was given some antibiotics namely Bactrim to the right big toe wound. She has noticed that the wound has not improved and she has been having progressive pain. She denies any fever or chills, no nausea vomiting, no cough or shortness of breath, no chest pain. She denies any sick contacts and no recent travel. Work-up in the emergency room reveals hyperglycemia chest x-ray also reveals a left-sided pneumonia with accompanying sepsis. Patient started on empiric IV antibiotics. She is also given a tetanus vacc ination. Per the ED doctor the wound itself did not appear overtly superinfected. Although however the patient was tachycardic and febrile and as part of sepsis work-up as her labs indicated hyperglycemia with pseudohyponatremia, minimal anion gap acidosis, and a left-sided pulmonary infiltrate. Given the magnitude of her abnormal vital signs, concomitant diabetes, metabolic derangement, daily maciel meets criteria for hospitalization. We will treat her empirically for community-acquired pneumonia. She does not endorse any sick contacts or exposures to individuals with coronavirus. Nevertheless her test was sent and patient returned COVID positive. January 24 the patient results for COVID 19 came back positive. 01/28: In addition to treatment as noted below patient was noted to have indura cruz area in the left thigh, Concerning for abscess development. Will obtain CT of the lower extremity 01/29: Patient noted hypotensive. She is refusing her p.o. week to be placed she sustained a fall overnight while trying to walk to the bathroom. CT of the lower extremity still pending we will proceed with consult to surgeons. We will discontinue all blood pressure medications give a bolus of fluid while mindful of possible developing ARDS. We will also obtain repeated chest x-ray as patient appears more toxic today. 01/31: Patient reintubated about 30 minutes after surgical procedure due to decompensation with hypotension and hypoxemia despite 100% oxygen and CPAP. Patient remains currently on the vent. We will continue dialysis. While learning design specialist assist with managing ventilator. We will continue to adjust blood sugar for better control. Patient is critically ill this has been conveyed to the family prior. 02/01: Mild improvement in inflammatory markers and chest x-ray. Otherwise patient still remains on mechanical ventilation still at high risk for ARDS mitigation processes are in place and plan. Continue aggressive management. She unfortunately still with low-grade intermittent fevers. Despite improvement in WBC. 02/02: Clinically stable wound VAC remains in place and functioning. Trial of CPAP today. Will recheck labs in a.m. inflammatory markers continue to improve ferritin is down to the 1900 range. 02/03: Inflammatory markers appear to be improving. There is some mild trickling down of hemoglobin we will continue to monitor this. Patient continues to tolerate dialysis. 02/04: Extubated, updated family. Continue aggressive management, wound care nurse dressed wound change dressing noted today good viable wound bed noted. As patient continues to improve we will consider transfer to [facility] in a.m. Infl ammatory markers now improving. 02/05: Continues to improve, awaiting to have speech testing done. Patient doing well on oxygen post extubation. Continue aggressive wound management. Discussed with CM about transfer to [facility] if they will accept because patient has a long recovery ahead. 02/06 : On 2 L nasal cannula oxygen , saturating 94-95% Discussed extensively with Ms. Anh Varma at [phone] She has numerous questions and concerns , addressed all of them discharge planning per case management. possible LTAC placement COVID 19 induced pneumonia Acute on chronic respiratory failure with postoperative decompensation now requiring mechanical ventilation Acute metabolic encephalopathy Left thigh abscess status post I&D Multiple Organ Failure Severe Sepsis Diabetic foot wound nonhealing Morbid obesity hypoventilation syndrome Acute kidney injury secondary to vasomotor nephropathy Metabolic Acidosis Hypokalemia-resolved Presumed thigh abscess. Anemia Hyponatremia-resolving Diabetes mellitus with uncontrolled blood sugar Morbid obesity Hypertension monitor closely for septic shock Malnutrition: Decreased p.o. intake Severe Protein calorie ?Bundle Branch block- await EKG Plan -Continue current work-up as dictated by infectious disease doctors will include Plaquenil and zinc combination. -s/p extensive I&D of left thigh abscess with sepsis and showing signs of multisystem organ insufficiency requiring ventilator support, possible dialysis, and vasopressers. wound vac was placed with wound care nurse. Next vac change scheduled for Tuesday. Continue abx and supportive care. -right-sided common femoral catheter placed for dialysis. -Very high inflammatory markers - ferritin . Ferritin elevated, CRP/LDH improving. Risk for cytokine storm secondary to COVID and high risk for ARDS -Patient may need to be on BiPAP if respiratory status is not improving and she continues to get weaker. -Vancomycin has been discontinued. -Follow culture from surgical procedure -Continue isolation and droplet precautions. Continuous pulse oximetry and telemetry. -Tight diabetic control -To the wound care -MRI of the right foot outpatient deferred due to COVID 19 treatment and no nemergent at this time -Replace electrolytes as needed -Obtain serial Ferritin, LDH, D-Dimer, CRP every 48h -Daily EKG - QT monitoring - stop plaqenil if QT interval >500 -Obtain IL-6 (sent out) to evaluate cytokine release syndrome due to COVID -Weight loss recommendations on discharge Family updated The high probability of a clinically significant, sudden or life threatening deterioration of the [pulmonary, renal, ] system(s) required my full and direct attention, intervention and personal management. The aggregate critical care time was [35] minutes. This time is in addition to time spent performing reported procedures but includes the following: [x] Data Review and interpretation [x] Patient assessment and monitoring of vital signs [x] Documentation [x] Medication orders and management History Interval history: Patient seen and examined at the bedside Isolation precautions, PPE protocols observed Patient complains of mild shortness of breath and generalized weakness Alert and awake, responds appropriately Mild distress Vital signs reviewed PUI?: No COVID19: Positive Hospitalist Physical - Constitutional Vitals: Temp Pulse Resp BP Pulse Ox 99.0 F 88 18 146/81 95 02/07/20 05:15 02/07/20 05:15 02/07/20 05:15 02/07/20 05:15 02/07/20 05:15 General appearance: Present: mild distress, well-nourished, obese (Morbidly obese) - EENT Eyes: Present: PERRL, EOM intact - Neck Neck: Present: supple, normal ROM - Respiratory Respiratory effort: normal Respiratory: bilateral: diminished, rhonchi, negative: rales, wheezing - Cardiovascular Rhythm: regular Heart Sounds: Present: S1 & S2 - Extremities Extremities: no ischemia, No edema - Abdominal General gastrointestinal: soft, non-tender, non-distended, normal bowel sounds - Integumentary Integumentary: Present: clear, warm - Psychiatric Psychiatric: appropriate mood/affect, cooperative - Neurologic Neurologic: moves all extremities Results - Labs CBC & Chem 7: 02/07/20 05:05 02/07/20 05:05 Labs: Laboratory Last Values WBC 15.0 K/mm3 (4.5-11.0) H 02/07/20 05:05 RBC 3.30 M/mm3 (3.65-5.03) L 02/07/20 05:05 Hgb 8.3 gm/dl (10.1-14.3) L 02/07/20 05:05 Hct 26.6 % (30.3-42.9) L 02/07/20 05:05 MCV 81 fl (79-97) 02/07/20 05:05 MCH 25 pg (28-32) L 02/07/20 05:05 MCHC 31 % (30-34) 02/07/20 05:05 RDW 13.3 % (13.2-15.2) 02/07/20 05:05 Plt Count 173 K/mm3 (140-440) 02/07/20 05:05 Lymph % (Auto) 16.6 % (13.4-35.0) 01/18/20 08:30 Arthur % (Auto) 2.8 % (0.0-7.3) 01/18/20 08:30 Eos % (Auto) 0.1 % (0.0-4.3) 01/18/20 08:30 Baso % (Auto) 0.4 % (0.0-1.8) 01/18/20 08:30 Lymph # 1.2 K/mm3 (1.2-5.4) 01/18/20 08:30 Arthur # 0.2 K/mm3 (0.0-0.8) 01/18/20 08:30 Eos # 0.0 K/mm3 (0.0-0.4) 01/18/20 08:30 Baso # 0.0 K/mm3 (0.0-0.1) 01/18/20 08:30 Add Manual Diff Complete 01/26/20 05:40 Total Counted 100 01/26/20 05:40 Seg Neutrophils % Chief Engineer Production 01/26/20 05:40 Seg Neuts % (Manual) 90.0 % (40.0-70.0) H 01/26/20 05:40 Band Neutrophils % 5.0 % 01/26/20 05:40 Lymphocytes % (Manual) 1.0 % (13.4-35.0) L 01/26/20 05:40 Reactive Lymphs % (Man) 0 % 01/26/20 05:40 Monocytes % (Manual) 2.0 % (0.0-7.3) 01/26/20 05:40 Eosinophils % (Manual) 2.0 % (0.0-4.3) 01/26/20 05:40 Basophils % (Manual) 0 % (0.0-1.8) 01/26/20 05:40 Metamyelocytes % 0 % 01/26/20 05:40 Myelocytes % 0 % 01/26/20 05:40 Promyelocytes % 0 % 01/26/20 05:40 Blast Cells % 0 % 01/26/20 05:40 Nucleated RBC % 1.0 % (0.0-0.9) H 01/26/20 05:40 Seg Neutrophils # 5.9 K/mm3 (1.8-7.7) 01/18/20 08:30 Seg Neutrophils # Man 14.8 K/mm3 (1.8-7.7) H 01/26/20 05:40 Band Neutrophils # 0.8 K/mm3 01/26/20 05:40 Lymphocytes # (Manual) 0.2 K/mm3 (1.2-5.4) L 01/26/20 05:40 Abs React Lymphs (Man) 0.0 K/mm3 01/26/20 05:40 Monocytes # (Manual) 0.3 K/mm3 (0.0-0.8) 01/26/20 05:40 Eosinophils # (Manual) 0.3 K/mm3 (0.0-0.4) 01/26/20 05:40 Basophils # (Manual) 0.0 K/mm3 (0.0-0.1) 01/26/20 05:40 Metamyelocytes # 0.0 K/mm3 01/26/20 05:40 Myelocytes # 0.0 K/mm3 01/26/20 05:40 Promyelocytes # 0.0 K/mm3 01/26/20 05:40 Blast Cells # 0.0 K/mm3 01/26/20 05:40 WBC Morphology Not Reportable 01/26/20 05:40 Hypersegmented Neuts Not Reportable 01/26/20 05:40 Hyposegmented Neuts Not Reportable 01/26/20 05:40 Hypogranular Neuts Not Reportable 01/26/20 05:40 Smudge Cells Not Reportable 01/26/20 05:40 Toxic Granulation Not Reportable 01/26/20 05:40 Toxic Vacuolation Not Reportable 01/26/20 05:40 Dohle Bodies Not Reportable 01/26/20 05:40 Pelger-Huet Anomaly Not Reportable 01/26/20 05:40 Barbie Rods Not Reportable 01/26/20 05:40 Platelet Estimate Consistent w auto 01/26/20 05:40 Clumped Platelets Not Reportable 01/26/20 05:40 Plt Clumps, EDTA Not Reportable 01/26/20 05:40 Large Platelets Not Reportable 01/26/20 05:40 Giant Platelets Not Reportable 01/26/20 05:40 Platelet Satelliting Not Reportable 01/26/20 05:40 Plt Morphology Comment Not Reportable 01/26/20 05:40 RBC Morphology Normal 01/26/20 05:40 Dimorphic RBCs Not Reportable 01/26/20 05:40 Polychromasia Not Reportable 01/26/20 05:40 Hypochromasia Not Reportable 01/26/20 05:40 Poikilocytosis Not Reportable 01/26/20 05:40 Anisocytosis Not Reportable 01/26/20 05:40 Microcytosis Not Reportable 01/26/20 05:40 Macrocytosis Not Reportable 01/26/20 05:40 Spherocytes Not Reportable 01/26/20 05:40 Pappenheimer Bodies Not Reportable 01/26/20 05:40 Sickle Cells Not Reportable 01/26/20 05:40 Target Cells Not Reportable 01/26/20 05:40 Tear Drop Cells Not Reportable 01/26/20 05:40 Ovalocytes Not Reportable 01/26/20 05:40 Helmet Cells Not Reportable 01/26/20 05:40 Abernathy-Raysal Bodies Not Reportable 01/26/20 05:40 Tropic Rings Not Reportable 01/26/20 05:40 Pauline Cells Not Reportable 01/26/20 05:40 Bite Cells Not Reportable 01/26/20 05:40 Crenated Cell Not Reportable 01/26/20 05:40 Elliptocytes Not Reportable 01/26/20 05:40 Acanthocytes (Spur) Not Reportable 01/26/20 05:40 Rouleaux Not Reportable 01/26/20 05:40 Hemoglobin C Crystals Not Reportable 01/26/20 05:40 Schistocytes Not Reportable 01/26/20 05:40 Malaria parasites Not Reportable 01/26/20 05:40 ESR 70 mm/Hr (0-20) 01/17/20 22:58 Ras Bodies Not Reportable 01/26/20 05:40 Hem Pathologist Commnt No 01/26/20 05:40 PT 15.6 Sec. (12.2-14.9) H 01/17/20 18:28 INR 1.22 (0.87-1.13) H 01/17/20 18:28 D-Dimer 1067.61 ng/mlDDU (0-234) H 02/06/20 03:38 ABG pH 7.497 pH Units (7.350-7.450) H 02/05/20 Unknown ABG pCO2 30.2 mm Hg 02/05/20 Unknown ABG pO2 111.6 mm Hg (80.0-90.0) H 02/05/20 Unknown ABG HCO3 22.9 mmol/L (20.0-26.0) 02/05/20 Unknown ABG O2 Saturation 98.3 % (95.0-99.0) 02/05/20 Unknown ABG O2 Content 10.3 (0.0-44) 02/05/20 Unknown ABG Base Excess -0.1 mmol/L (-2.0-3.0) 02/05/20 Unknown ABG Hemoglobin 7.4 gm/dl (12.0-16.0) L 02/05/20 Unknown ABG Carboxyhemoglobin 1.3 % (0.0-5.0) 02/05/20 Unknown ABG Methemoglobin 0.4 % (0.0-1.5) 02/05/20 Unknown VBG pH 7.409 (7.320-7.420) 01/17/20 18:28 Oxyhemoglobin 96.7 % (95.0-99.0) 02/05/20 Unknown FiO2 40 % 02/05/20 Unknown Sodium 141 mmol/L (137-145) 02/07/20 05:05 Potassium 4.0 mmol/L (3.6-5.0) 02/07/20 05:05 Chloride 98.2 mmol/L (98-107) 02/07/20 05:05 Carbon Dioxide 22 mmol/L (22-30) 02/07/20 05:05 Anion Gap 25 mmol/L 02/07/20 05:05 BUN 63 mg/dL (7-17) H 02/07/20 05:05 Creatinine 6.1 mg/dL (0.7-1.2) H 02/07/20 05:05 Estimated GFR 10 ml/min 02/07/20 05:05 BUN/Creatinine Ratio 10 % 02/07/20 05:05 Glucose 231 mg/dL (65-100) H 02/07/20 05:05 POC Glucose 192 (70-105) H 02/07/20 05:24 Hemoglobin A1c 11.6 % (4-6) H 01/18/20 12:47 Lactic Acid 1.30 mmol/L (0.7-2.0) 01/18/20 08:30 Calcium 8.6 mg/dL (8.4-10.2) 02/07/20 05:05 Magnesium 1.50 mg/dL (1.7-2.3) L 01/17/20 22:58 Ferritin 1277.0 ng/mL (13.0-400.0) H 02/06/20 03:38 Total Bilirubin 0.50 mg/dL (0.1-1.2) 01/31/20 03:49 AST 112 units/L (5-40) H 01/31/20 03:49 ALT 112 units/L (7-56) H 01/31/20 03:49 Alkaline Phosphatase 145 units/L (35-129) H 01/31/20 03:49 Lactate Dehydrogenase 48 units/L (91-180) L 02/06/20 03:38 Total Creatine Kinase 122 units/L (30-135) 01/17/20 22:58 C-Reactive Protein 0.50 mg/dL (0.00-1.30) 02/06/20 03:38 Total Protein 5.5 g/dL (6.3-8.2) L 01/31/20 03:49 Albumin 1.7 g/dL (3.9-5) L 01/31/20 03:49 Albumin/Globulin Ratio 0.4 % 01/31/20 03:49 Procalcitonin 0.27 ng/mL (<0.15) 01/23/20 10:36 HCG, Qual Negative (Negative) 01/31/20 03:49 Urine Color Yellow (Yellow) 01/18/20 00:32 Urine Turbidity Slightly-cloudy (Clear) 01/18/20 00:32 Urine pH 5.0 (5.0-7.0) 01/18/20 00:32 Ur Specific [place] 1.011 (1.003-1.030) 01/18/20 00:32 Urine Protein 100 mg/dl mg/dL (Negative) 01/18/20 00:32 Urine Glucose (UA) >=500 mg/dL (Negative) 01/18/20 00:32 Urine Ketones Tr mg/dL (Negative) 01/18/20 00:32 Urine Blood Neg (Negative) 01/18/20 00:32 Urine Nitrite Neg (Negative) 01/18/20 00:32 Urine Bilirubin Neg (Negative) 01/18/20 00:32 Urine Urobilinogen < 2.0 mg/dL (<2.0) 01/18/20 00:32 Ur Leukocyte Esterase Neg (Negative) 01/18/20 00:32 Urine WBC (Auto) 2.0 /HPF (0.0-6.0) 01/18/20 00:32 Urine RBC (Auto) 4.0 /HPF (0.0-6.0) 01/18/20 00:32 U Epithel Cells (Auto) 2.0 /HPF (0-13.0) 01/18/20 00:32 Hyaline Casts 1 /LPF 01/18/20 00:32 Urine Mucus Few /HPF 01/18/20 00:32 Urine Yeast (Budding) Few /HPF 01/18/20 00:32 Vancomycin Trough 45.4 ug/mL (5.0-20.0) H 01/30/20 05:19 Random Vancomycin 30.6 ug/mL (0-40.0) 02/01/20 03:49 Hepatitis A IgM Ab Non-reactive (NonReactive) 02/01/20 10:57 Hep Bs Antigen Non-reactive (Negative) 02/01/20 10:57 Hep B Core IgM Ab Non-reactive (NonReactive) 02/01/20 10:57 Hepatitis C Antibody Non-reactive (NonReactive) 02/01/20 10:57 Influenza A (Rapid) Negative (Negative) 01/19/20 01:10 Influenza B (Rapid) Negative (Negative) 01/19/20 01:10 AFB Identification 01/20/20 04:00 Miscellaneous Test Flexitest 1 H 01/28/20 10:00 Microbiology: Microbiology 01/31/20 Unknown Thigh - Left Surgical Biopsy Culture - Preliminary Goldstein/IV: Voiding Method Diaper IV Catheter Type [right ac] Peripheral IV IV Catheter Type [Right trialysis Femoral] IV Catheter Type [Right Peripheral IV Forearm] IV Catheter Type [Right Wrist] INT / Saline Lock IV Catheter Type [Right Hand] INT / Saline Lock IV Catheter Type [Right Upper INT / Saline Lock arm] IV Catheter Type [Left Hand] INT / Saline Lock Active Medications - Current Medications Current Medications: Generic Name Dose Route Start Last Admin Trade Name Freq PRN Reason Stop Dose Admin Acetaminophen 650 mg 01/17/20 23:06 01/29/20 22:43 Tylenol PO 650 mg Q4H PRN Administration Pain MILD(1-3)/Fever >100.5/COLLINS Lipase/Protease/Amylase 1 each 02/01/20 09:53 Pancreaze 10,500 Unit FEEDTUBE PRN PRN For Clogged Feeding Tube Dextrose 0 ml 01/17/20 23:06 D50w (25gm) Syringe IV Q30MIN PRN Hypoglycemia Protocol Famotidine 20 mg 01/24/20 10:00 02/06/20 09:06 Pepcid PO 20 mg QDAY COBY Administration Fentanyl 12.5 mcg 02/05/20 12:00 Sublimaze IV Q4H PRN AGITATION/ANXIETY Heparin Sodium (Porcine) 5,000 unit 01/18/20 06:00 02/07/20 05:56 Heparin SUB-Q 5,000 unit Q8HR COBY Administration Hydralazine HCl 10 mg 01/18/20 22:14 01/22/20 18:43 Apresoline IV 10 mg Q6H PRN Administration Hypertension Hydrophilic Ointment 1 applic 01/31/20 21:48 Vaseline Lip Therapy TP Q2HR PRN Dry Lips Norepinephrine 4 mg in 250 mls @ 7.5 mls/hr 01/31/20 23:45 02/02/20 20:15 Levophed Drip 4 Mg/Ns 250 Ml IV 0 mcg/min TITR COBY 0 mls/hr Titration Protocol 2 MCG/MIN Piperacillin Sod/Tazobactam Sod 2.25 gm in 50 mls @ 100 mls/hr 02/01/20 14:00 02/07/20 05:55 Zosyn/Ns 2.25 Gm/50ml IV 02/07/20 23:59 100 mls/hr Q8HR COBY Administration Protocol Sodium Chloride 100 mls @ 999 mls/hr 02/05/20 11:31 Nacl 0.9% IV KIRSTEN PRN Hypotension Insulin Human Isoph/Insulin Regular 25 unit 02/06/20 22:00 02/06/20 23:06 Humulin 70/30 SUB-Q 25 unit BID COBY Administration Insulin Human Regular 0 units 02/01/20 12:00 02/07/20 05:55 Humulin R SUB-Q 3 units Q6HR COBY Administration Protocol Insulin Human Regular 5 units 02/04/20 12:00 02/07/20 05:56 Humulin R SUB-Q 5 units Q6HR COBY Administration Magnesium Hydroxide 30 ml 01/17/20 23:06 Milk Of Magnesia PO Q4H PRN Constipation Morphine Sulfate 2 mg 01/17/20 23:06 02/05/20 11:49 Morphine IV 2 mg Q4H PRN Administration Pain, Moderate (4-6) Multi-Ingred Cream/Lotion/Oil/Oint 1 applic 01/31/20 21:48 Artificial Tears Ophth Oint OU Q4HR PRN Dry Eye(s) Nystatin 1 applic 01/29/20 14:00 02/06/20 23:14 Nystop TP 1 applic BID COBY Administration Ondansetron HCl 4 mg 01/17/20 23:06 01/30/20 20:47 Zofran IV 4 mg Q8H PRN Administration Nausea And Vomiting Simple Syrup 15 ml 02/01/20 09:53 Simple Syrup FEEDTUBE PRN PRN Hypoglycemia Simple Syrup 30 ml 02/01/20 09:53 Simple Syrup FEEDTUBE PRN PRN Hypoglycemia Sodium Bicarbonate 325 mg 02/01/20 09:53 Sodium Bicarbonate FEEDTUBE PRN PRN For Clogged Feeding Tube Sodium Chloride 10 ml 01/18/20 10:00 02/06/20 23:13 Sodium Chloride Flush Syringe 10 Ml IV 10 ml BID COBY Administration Sodium Chloride 10 ml 01/17/20 23:06 02/04/20 05:07 Sodium Chloride Flush Syringe 10 Ml IV 10 ml PRN PRN Administration LINE FLUSH Nutrition/Malnutrition Assess - Dietary Evaluation Nutrition/Malnutrition Findings: Nutrition Notes Start: 01/18/20 13:13 Freq: Status: Active Protocol: Document 02/04/20 12:57 LM (Rec: 02/04/20 13:02 LM [id number]) Nutrition Notes Initial or Follow up Reassessment Current Diagnosis Diabetes,Sepsis Other Pertinent Diagnosis COVID-19 positive, LEV pnue, ( R) great toe wound Current Diet Vital HP 1.0 at 75ml/hr Labs/Tests Na 140 BUN 80 Cr 5.8 BG 209 Pertinent Medications Humulin Height 6 ft Weight 147.9 kg [place] Body Weight (kg) 72.72 BMI 44.1 Weight Status Morbidly Obese Subjective/Other Information Per RN pt is tolerating TF at goal. Na now in normal range. Percent of energy/protein needs met: 87%/86% Burn Absent Trauma Absent Current % PO Negligible Minimum of two criteria No physical signs of malnutrition #3 Nutrition Diagnosis Inadequate oral intake Diagnosis Progress(for reassessment Continues documentation) #2 Nutrition Diagnosis Inadequate protein-energy intake Diagnosis Progress(for reassessment Continues documentation) #1 Nutrition Diagnosis Increased nutrient needs ( specify in comment below) Diagnosis Progress(for reassessment Continues documentation) Is patient on ventilator? Yes Is Patient Ambulatory and/or Out of Bed Yes REE-([place]-St. Jeor-ambulatory/OOB) [ 3004.300 [id number]] Kcal/Kg value to use for calculation 14 Approximate Energy Requirements Using 1 kcal/Kg Calculation Used for Recommendations Kcal/kg Additional Notes Protein: 183g (up to 2.5g/kg using IBW 73kg Fluid needs 1ml/kcal Nutrition Intervention Change Diet Order: Continue TF Nutrition Support: Vital HP 1.0 at 75ml/hr Flush 50 ml q4h Kcal 1,800 Protein (gm) 158 Fluid (mL) 1,505 Goal #1 TF tolerance Goal #2 Meet at least 75% of energy and protein needs via TF Goal #3 Wound healing Anticipated Discharge Needs: unable to determine at this time Follow-Up By: 02/11/20 Additional Comments F/U for TF tolerance
[2020-02-07] MEDS: INSULIN NPH/REGULAR 70/30 INJ SUB-Q SCH ×2 (11:05→22:57)
[2020-02-07] MEDS: FAMOTIDINE 20 MG TAB PO SCH (11:06)
[2020-02-07] MEDS: NYSTATIN POWDER 15 GM TP SCH ×2 (11:13→22:58)
--- NOTE | 2020-02-07 14:02 | Progress Note ---
Assessment and Plan Acute Hypoxemic Respiratory failure Severe Sepsis COVID-19 infection Left upper lobe pneumonia Diabetes II Morbid obesity Febrile illness Diabetic foot ulcer Hyponatremia Lactic acidosis - continue to wean supplemental oxygen to keep O2 sats > 90% - COVID-19 precautions per [facility] protocol - continue contact, droplet and airborne precautions - off Plaquenil - Follow IL-6 (sent out) to evaluate cytokine release syndrome due to COVID and consider IV tocilizumab (Actemra) (off-label use)- per ID recommendations - Very high inflammatory markers - ferritin 2758; CRP/LDH trending down (At risk for cytokine storm secondary to COVID and high risk for ARDS) - Conservative fluid management (use vasopressors including midodrine to support blood pressure). - Accuchecks with glycemic control, keep blood glucose < 180 mg/dL (Avoid hypoglycemia) - Avoid nephrotoxins, adjust and dose all medications fro GFR and CrCL - continue GI & VTE prophylaxis - continue wound care per RN / WCT - continue surgical evaluation - prn analgesia per pain score - mobility protocols to prevent pressure ulcers - continued smoking abstinence strongly counseled at the bedside prior to decompensation - GI & VTE prophylaxis - Flu & pneumovax per protocol - continue other care per attending / other consultants ... re-evaluate in am & prn CONDITION: FAIR PROGNOSIS: IMPROVED CODE STATUS: FULL CODE Subjective Date of service: 02/07/20 Principal diagnosis: Severe Sepsis; LEV PNA; DM II; COVID-19 infection; CIPRIANO Interval history: Patient is seen today for: Acute Hypoxemic Respiratory failure; Severe Sepsis; LEV pneumonia; Diabetes II; Morbid obesity; COVID-19 infection; Diabetic foot ulcer; Hyponatremia; Lactic acidosis Seen and examined at bedside; 24hour events reviewed; nursing and respiratory care staff consulted; no adverse overnight events reported to me; resting peacefully in bed; extubated and back on medical floor; denies acute chest pains or palpitations PUI?: No COVID19: Positive Objective Vital Signs - 12hr 02/07/20 02/07/20 02/07/20 05:15 10:00 11:56 Temperature 99.0 F 98.1 F Pulse Rate 88 84 Respiratory 18 24 Rate Blood Pressure 146/81 133/78 O2 Sat by Pulse 95 95 96 Oximetry Constitutional: alert, other (young obese AAF, normocephalic with mildly increased resp effort at rest) Eyes: non-icteric ENT: oropharynx moist, other (extubated) Neck: supple, no lymphadenopathy, no JVD Effort: mildly labored Ascultation: Bilateral: diminished breath sounds, rales (scant in bases) Percussion: Bilateral: not dull Cardiovascular: regular rate and rhythm Gastrointestinal: normoactive bowel sounds, soft, non-tender, non-distended Integumentary: normal Extremities: no cyanosis, no edema, pulses normal, no ischemia or petechiae Neurologic: normal mental status, non-focal exam, pupils equal and round, CN II- XII normal Psychiatric: mood appropriate, affect normal CBC and BMP: 02/07/20 05:05 02/07/20 05:05 ABG, PT/INR, D-dimer: ABG ABG pH 7.497 pH Units (7.350-7.450) H 02/05/20 Unknown ABG pCO2 30.2 mm Hg 02/05/20 Unknown ABG pO2 111.6 mm Hg (80.0-90.0) H 02/05/20 Unknown ABG O2 Saturation 98.3 % (95.0-99.0) 02/05/20 Unknown PT/INR, D-dimer PT 15.6 Sec. (12.2-14.9) H 01/17/20 18:28 INR 1.22 (0.87-1.13) H 01/17/20 18:28 D-Dimer 1067.61 ng/mlDDU (0-234) H 02/06/20 03:38 Abnormal lab findings: Abnormal Labs 01/17/20 01/17/20 01/17/20 18:28 18:28 18:28 WBC RBC Hgb Hct MCV MCH 26 L RDW Lymph % (Auto) 9.3 L Lymph # 1.0 L Seg Neutrophils % 86.7 H Seg Neuts % (Manual) Lymphocytes % (Manual) Nucleated RBC % Seg Neutrophils # 9.6 H Seg Neutrophils # Man Lymphocytes # (Manual) PT 15.6 H INR 1.22 H D-Dimer ABG pH ABG pO2 ABG HCO3 ABG O2 Saturation ABG Base Excess ABG Hemoglobin Oxyhemoglobin Sodium 126 L Potassium Chloride 89.3 L Carbon Dioxide 19 L BUN Creatinine Glucose 397 H POC Glucose Hemoglobin A1c Lactic Acid Calcium Magnesium Ferritin AST ALT Alkaline Phosphatase Lactate Dehydrogenase C-Reactive Protein Total Protein 9.0 H Albumin Vancomycin Trough Random Vancomycin Miscellaneous Test 01/17/20 01/17/20 01/17/20 18:28 22:58 22:58 WBC RBC Hgb Hct MCV MCH RDW Lymph % (Auto) Lymph # Seg Neutrophils % Seg Neuts % (Manual) Lymphocytes % (Manual) Nucleated RBC % Seg Neutrophils # Seg Neutrophils # Man Lymphocytes # (Manual) PT INR D-Dimer ABG pH ABG pO2 ABG HCO3 ABG O2 Saturation ABG Base Excess ABG Hemoglobin Oxyhemoglobin Sodium Potassium Chloride Carbon Dioxide BUN Creatinine Glucose POC Glucose Hemoglobin A1c Lactic Acid 3.40 H* 2.30 H* Calcium Magnesium 1.50 L Ferritin AST ALT Alkaline Phosphatase Lactate Dehydrogenase C-Reactive Protein 16.60 H Total Protein Albumin Vancomycin Trough Random Vancomycin Miscellaneous Test 01/18/20 01/18/20 01/18/20 00:46 06:34 08:30 WBC RBC Hgb Hct MCV MCH 26 L RDW 12.7 L Lymph % (Auto) Lymph # Seg Neutrophils % 80.1 H Seg Neuts % (Manual) Lymphocytes % (Manual) Nucleated RBC % Seg Neutrophils # Seg Neutrophils # Man Lymphocytes # (Manual) PT INR D-Dimer ABG pH ABG pO2 ABG HCO3 ABG O2 Saturation ABG Base Excess ABG Hemoglobin Oxyhemoglobin Sodium Potassium Chloride Carbon Dioxide BUN Creatinine Glucose POC Glucose 338 H 266 H Hemoglobin A1c Lactic Acid Calcium Magnesium Ferritin AST ALT Alkaline Phosphatase Lactate Dehydrogenase C-Reactive Protein Total Protein Albumin Vancomycin Trough Random Vancomycin Miscellaneous Test 01/18/20 01/18/20 01/18/20 08:30 08:35 12:30 WBC RBC Hgb Hct MCV MCH RDW Lymph % (Auto) Lymph # Seg Neutrophils % Seg Neuts % (Manual) Lymphocytes % (Manual) Nucleated RBC % Seg Neutrophils # Seg Neutrophils # Man Lymphocytes # (Manual) PT INR D-Dimer ABG pH ABG pO2 ABG HCO3 ABG O2 Saturation ABG Base Excess ABG Hemoglobin Oxyhemoglobin Sodium 135 L D Potassium Chloride Carbon Dioxide BUN Creatinine Glucose 250 H POC Glucose 224 H 213 H Hemoglobin A1c Lactic Acid Calcium Magnesium Ferritin AST ALT Alkaline Phosphatase Lactate Dehydrogenase C-Reactive Protein Total Protein Albumin Vancomycin Trough Random Vancomycin Miscellaneous Test 01/18/20 01/18/20 01/18/20 12:47 16:56 22:03 WBC RBC Hgb Hct MCV MCH RDW Lymph % (Auto) Lymph # Seg Neutrophils % Seg Neuts % (Manual) Lymphocytes % (Manual) Nucleated RBC % Seg Neutrophils # Seg Neutrophils # Man Lymphocytes # (Manual) PT INR D-Dimer ABG pH ABG pO2 ABG HCO3 ABG O2 Saturation ABG Base Excess ABG Hemoglobin Oxyhemoglobin Sodium Potassium Chloride Carbon Dioxide BUN Creatinine Glucose POC Glucose 270 H 239 H Hemoglobin A1c 11.6 H Lactic Acid Calcium Magnesium Ferritin AST ALT Alkaline Phosphatase Lactate Dehydrogenase C-Reactive Protein Total Protein Albumin Vancomycin Trough Random Vancomycin Miscellaneous Test 01/19/20 01/19/20 01/19/20 06:15 11:48 13:09 WBC RBC Hgb Hct MCV MCH 26 L RDW Lymph % (Auto) Lymph # Seg Neutrophils % Seg Neuts % (Manual) Lymphocytes % (Manual) Nucleated RBC % Seg Neutrophils # Seg Neutrophils # Man Lymphocytes # (Manual) PT INR D-Dimer ABG pH ABG pO2 ABG HCO3 ABG O2 Saturation ABG Base Excess ABG Hemoglobin Oxyhemoglobin Sodium Potassium Chloride Carbon Dioxide BUN Creatinine Glucose POC Glucose 248 H 268 H Hemoglobin A1c Lactic Acid Calcium Magnesium Ferritin AST ALT Alkaline Phosphatase Lactate Dehydrogenase C-Reactive Protein Total Protein Albumin Vancomycin Trough Random Vancomycin Miscellaneous Test 01/19/20 01/19/20 01/20/20 17:44 21:09 09:03 WBC RBC Hgb Hct MCV MCH RDW Lymph % (Auto) Lymph # Seg Neutrophils % Seg Neuts % (Manual) Lymphocytes % (Manual) Nucleated RBC % Seg Neutrophils # Seg Neutrophils # Man Lymphocytes # (Manual) PT INR D-Dimer ABG pH ABG pO2 ABG HCO3 ABG O2 Saturation ABG Base Excess ABG Hemoglobin Oxyhemoglobin Sodium Potassium Chloride Carbon Dioxide BUN Creatinine Glucose POC Glucose 214 H 261 H 241 H Hemoglobin A1c Lactic Acid Calcium Magnesium Ferritin AST ALT Alkaline Phosphatase Lactate Dehydrogenase C-Reactive Protein Total Protein Albumin Vancomycin Trough Random Vancomycin Miscellaneous Test 01/20/20 01/20/20 01/20/20 12:10 17:00 19:43 WBC RBC Hgb Hct MCV MCH RDW Lymph % (Auto) Lymph # Seg Neutrophils % Seg Neuts % (Manual) Lymphocytes % (Manual) Nucleated RBC % Seg Neutrophils # Seg Neutrophils # Man Lymphocytes # (Manual) PT INR D-Dimer ABG pH ABG pO2 ABG HCO3 ABG O2 Saturation ABG Base Excess ABG Hemoglobin Oxyhemoglobin Sodium Potassium Chloride Carbon Dioxide BUN Creatinine Glucose POC Glucose 284 H 272 H Hemoglobin A1c Lactic Acid Calcium Magnesium Ferritin AST ALT Alkaline Phosphatase Lactate Dehydrogenase C-Reactive Protein Total Protein Albumin Vancomycin Trough 4.0 L Random Vancomycin Miscellaneous Test 01/20/20 01/21/20 01/21/20 22:39 09:29 11:41 WBC RBC Hgb Hct MCV MCH 26 L RDW Lymph % (Auto) Lymph # Seg Neutrophils % Seg Neuts % (Manual) Lymphocytes % (Manual) Nucleated RBC % Seg Neutrophils # Seg Neutrophils # Man Lymphocytes # (Manual) PT INR D-Dimer ABG pH ABG pO2 ABG HCO3 ABG O2 Saturation ABG Base Excess ABG Hemoglobin Oxyhemoglobin Sodium Potassium Chloride Carbon Dioxide BUN Creatinine Glucose POC Glucose 248 H 238 H Hemoglobin A1c Lactic Acid Calcium Magnesium Ferritin AST ALT Alkaline Phosphatase Lactate Dehydrogenase C-Reactive Protein Total Protein Albumin Vancomycin Trough Random Vancomycin Miscellaneous Test 01/21/20 01/21/20 01/21/20 11:41 12:27 16:55 WBC RBC Hgb Hct MCV MCH RDW Lymph % (Auto) Lymph # Seg Neutrophils % Seg Neuts % (Manual) Lymphocytes % (Manual) Nucleated RBC % Seg Neutrophils # Seg Neutrophils # Man Lymphocytes # (Manual) PT INR D-Dimer ABG pH ABG pO2 ABG HCO3 ABG O2 Saturation ABG Base Excess ABG Hemoglobin Oxyhemoglobin Sodium 132 L Potassium 3.5 L Chloride 97.0 L Carbon Dioxide 19 L BUN Creatinine Glucose 274 H POC Glucose 264 H 261 H Hemoglobin A1c Lactic Acid Calcium Magnesium Ferritin AST ALT Alkaline Phosphatase Lactate Dehydrogenase C-Reactive Protein Total Protein Albumin Vancomycin Trough Random Vancomycin Miscellaneous Test 01/21/20 01/22/20 01/22/20 22:39 09:05 12:57 WBC RBC Hgb Hct MCV MCH RDW Lymph % (Auto) Lymph # Seg Neutrophils % Seg Neuts % (Manual) Lymphocytes % (Manual) Nucleated RBC % Seg Neutrophils # Seg Neutrophils # Man Lymphocytes # (Manual) PT INR D-Dimer ABG pH ABG pO2 ABG HCO3 ABG O2 Saturation ABG Base Excess ABG Hemoglobin Oxyhemoglobin Sodium Potassium Chloride Carbon Dioxide BUN Creatinine Glucose POC Glucose 243 H 258 H 252 H Hemoglobin A1c Lactic Acid Calcium Magnesium Ferritin AST ALT Alkaline Phosphatase Lactate Dehydrogenase C-Reactive Protein Total Protein Albumin Vancomycin Trough Random Vancomycin Miscellaneous Test 01/22/20 01/22/20 01/23/20 17:14 21:30 09:03 WBC RBC Hgb Hct MCV MCH RDW Lymph % (Auto) Lymph # Seg Neutrophils % Seg Neuts % (Manual) Lymphocytes % (Manual) Nucleated RBC % Seg Neutrophils # Seg Neutrophils # Man Lymphocytes # (Manual) PT INR D-Dimer ABG pH ABG pO2 ABG HCO3 ABG O2 Saturation ABG Base Excess ABG Hemoglobin Oxyhemoglobin Sodium Potassium Chloride Carbon Dioxide BUN Creatinine Glucose POC Glucose 306 H 217 H 156 H Hemoglobin A1c Lactic Acid Calcium Magnesium Ferritin AST ALT Alkaline Phosphatase Lactate Dehydrogenase C-Reactive Protein Total Protein Albumin Vancomycin Trough Random Vancomycin Miscellaneous Test 01/23/20 01/23/20 01/23/20 10:36 11:12 17:11 WBC RBC Hgb Hct MCV MCH RDW Lymph % (Auto) Lymph # Seg Neutrophils % Seg Neuts % (Manual) Lymphocytes % (Manual) Nucleated RBC % Seg Neutrophils # Seg Neutrophils # Man Lymphocytes # (Manual) PT INR D-Dimer ABG pH ABG pO2 ABG HCO3 ABG O2 Saturation ABG Base Excess ABG Hemoglobin Oxyhemoglobin Sodium Potassium 3.0 L Chloride Carbon Dioxide 21 L BUN Creatinine Glucose 266 H POC Glucose 244 H 238 H Hemoglobin A1c Lactic Acid Calcium 8.3 L Magnesium Ferritin AST ALT Alkaline Phosphatase Lactate Dehydrogenase C-Reactive Protein Total Protein Albumin Vancomycin Trough Random Vancomycin Miscellaneous Test 01/23/20 01/24/20 01/24/20 22:57 06:03 12:12 WBC RBC Hgb Hct MCV MCH RDW Lymph % (Auto) Lymph # Seg Neutrophils % Seg Neuts % (Manual) Lymphocytes % (Manual) Nucleated RBC % Seg Neutrophils # Seg Neutrophils # Man Lymphocytes # (Manual) PT INR D-Dimer ABG pH ABG pO2 ABG HCO3 ABG O2 Saturation ABG Base Excess ABG Hemoglobin Oxyhemoglobin Sodium Potassium 3.2 L Chloride Carbon Dioxide 19 L BUN Creatinine Glucose 231 H POC Glucose 228 H 210 H Hemoglobin A1c Lactic Acid Calcium 8.2 L Magnesium Ferritin AST ALT Alkaline Phosphatase Lactate Dehydrogenase C-Reactive Protein Total Protein Albumin Vancomycin Trough Random Vancomycin Miscellaneous Test 01/24/20 01/24/20 01/24/20 12:50 19:01 21:49 WBC RBC Hgb Hct MCV MCH RDW Lymph % (Auto) Lymph # Seg Neutrophils % Seg Neuts % (Manual) Lymphocytes % (Manual) Nucleated RBC % Seg Neutrophils # Seg Neutrophils # Man Lymphocytes # (Manual) PT INR D-Dimer ABG pH 7.485 H ABG pO2 63.4 L ABG HCO3 ABG O2 Saturation ABG Base Excess ABG Hemoglobin 5.0 L Oxyhemoglobin Sodium Potassium Chloride Carbon Dioxide BUN Creatinine Glucose POC Glucose 183 H 193 H Hemoglobin A1c Lactic Acid Calcium Magnesium Ferritin AST ALT Alkaline Phosphatase Lactate Dehydrogenase C-Reactive Protein Total Protein Albumin Vancomycin Trough Random Vancomycin Miscellaneous Test 01/25/20 01/25/20 01/25/20 09:13 16:58 22:23 WBC RBC Hgb Hct MCV MCH RDW Lymph % (Auto) Lymph # Seg Neutrophils % Seg Neuts % (Manual) Lymphocytes % (Manual) Nucleated RBC % Seg Neutrophils # Seg Neutrophils # Man Lymphocytes # (Manual) PT INR D-Dimer ABG pH ABG pO2 ABG HCO3 ABG O2 Saturation ABG Base Excess ABG Hemoglobin Oxyhemoglobin Sodium Potassium Chloride Carbon Dioxide BUN Creatinine Glucose POC Glucose 196 H 231 H 159 H Hemoglobin A1c Lactic Acid Calcium Magnesium Ferritin AST ALT Alkaline Phosphatase Lactate Dehydrogenase C-Reactive Protein Total Protein Albumin Vancomycin Trough Random Vancomycin Miscellaneous Test 01/26/20 01/26/20 01/26/20 05:40 05:40 05:40 WBC 16.4 H RBC Hgb Hct MCV MCH 26 L RDW 12.9 L Lymph % (Auto) Lymph # Seg Neutrophils % Seg Neuts % (Manual) 90.0 H Lymphocytes % (Manual) 1.0 L Nucleated RBC % 1.0 H Seg Neutrophils # Seg Neutrophils # Man 14.8 H Lymphocytes # (Manual) 0.2 L PT INR D-Dimer 2624.11 H ABG pH ABG pO2 ABG HCO3 ABG O2 Saturation ABG Base Excess ABG Hemoglobin Oxyhemoglobin Sodium 135 L Potassium 2.7 L* Chloride Carbon Dioxide 21 L BUN Creatinine Glucose 132 H POC Glucose Hemoglobin A1c Lactic Acid Calcium 8.0 L Magnesium Ferritin AST ALT Alkaline Phosphatase Lactate Dehydrogenase C-Reactive Protein Total Protein Albumin Vancomycin Trough Random Vancomycin Miscellaneous Test 01/26/20 01/26/20 01/26/20 05:40 05:40 08:58 WBC RBC Hgb Hct MCV MCH RDW Lymph % (Auto) Lymph # Seg Neutrophils % Seg Neuts % (Manual) Lymphocytes % (Manual) Nucleated RBC % Seg Neutrophils # Seg Neutrophils # Man Lymphocytes # (Manual) PT INR D-Dimer ABG pH ABG pO2 ABG HCO3 ABG O2 Saturation ABG Base Excess ABG Hemoglobin Oxyhemoglobin Sodium Potassium Chloride Carbon Dioxide BUN Creatinine Glucose POC Glucose 131 H Hemoglobin A1c Lactic Acid Calcium Magnesium Ferritin 2758.0 H AST ALT Alkaline Phosphatase Lactate Dehydrogenase C-Reactive Protein 26.90 H Total Protein Albumin Vancomycin Trough Random Vancomycin Miscellaneous Test 01/26/20 01/26/20 01/26/20 13:00 16:30 21:22 WBC RBC Hgb Hct MCV MCH RDW Lymph % (Auto) Lymph # Seg Neutrophils % Seg Neuts % (Manual) Lymphocytes % (Manual) Nucleated RBC % Seg Neutrophils # Seg Neutrophils # Man Lymphocytes # (Manual) PT INR D-Dimer ABG pH ABG pO2 ABG HCO3 ABG O2 Saturation ABG Base Excess ABG Hemoglobin Oxyhemoglobin Sodium Potassium Chloride Carbon Dioxide BUN Creatinine Glucose POC Glucose 136 H 146 H 139 H Hemoglobin A1c Lactic Acid Calcium Magnesium Ferritin AST ALT Alkaline Phosphatase Lactate Dehydrogenase C-Reactive Protein Total Protein Albumin Vancomycin Trough Random Vancomycin Miscellaneous Test 01/27/20 01/27/20 01/27/20 05:14 07:37 12:05 WBC RBC Hgb Hct MCV MCH RDW Lymph % (Auto) Lymph # Seg Neutrophils % Seg Neuts % (Manual) Lymphocytes % (Manual) Nucleated RBC % Seg Neutrophils # Seg Neutrophils # Man Lymphocytes # (Manual) PT INR D-Dimer ABG pH ABG pO2 ABG HCO3 ABG O2 Saturation ABG Base Excess ABG Hemoglobin Oxyhemoglobin Sodium 135 L Potassium 3.4 L D Chloride Carbon Dioxide 17 L BUN 24 H Creatinine 1.4 H D Glucose 143 H POC Glucose 133 H 141 H Hemoglobin A1c Lactic Acid Calcium 7.6 L Magnesium Ferritin AST ALT Alkaline Phosphatase Lactate Dehydrogenase C-Reactive Protein Total Protein Albumin Vancomycin Trough Random Vancomycin Miscellaneous Test 01/27/20 01/27/20 01/27/20 17:37 22:14 23:53 WBC RBC Hgb Hct MCV MCH RDW Lymph % (Auto) Lymph # Seg Neutrophils % Seg Neuts % (Manual) Lymphocytes % (Manual) Nucleated RBC % Seg Neutrophils # Seg Neutrophils # Man Lymphocytes # (Manual) PT INR D-Dimer 2675.43 H ABG pH ABG pO2 ABG HCO3 ABG O2 Saturation ABG Base Excess ABG Hemoglobin Oxyhemoglobin Sodium Potassium Chloride Carbon Dioxide BUN Creatinine Glucose POC Glucose 153 H 124 H Hemoglobin A1c Lactic Acid Calcium Magnesium Ferritin AST ALT Alkaline Phosphatase Lactate Dehydrogenase C-Reactive Protein Total Protein Albumin Vancomycin Trough Random Vancomycin Miscellaneous Test 01/27/20 01/27/20 01/28/20 23:53 23:53 08:36 WBC RBC Hgb Hct MCV MCH RDW Lymph % (Auto) Lymph # Seg Neutrophils % Seg Neuts % (Manual) Lymphocytes % (Manual) Nucleated RBC % Seg Neutrophils # Seg Neutrophils # Man Lymphocytes # (Manual) PT INR D-Dimer ABG pH ABG pO2 ABG HCO3 ABG O2 Saturation ABG Base Excess ABG Hemoglobin Oxyhemoglobin Sodium Potassium Chloride Carbon Dioxide BUN Creatinine Glucose POC Glucose 165 H Hemoglobin A1c Lactic Acid Calcium Magnesium Ferritin 3523.0 H AST ALT Alkaline Phosphatase Lactate Dehydrogenase 1132 H C-Reactive Protein 15.60 H Total Protein Albumin Vancomycin Trough Random Vancomycin Miscellaneous Test 01/28/20 01/28/20 01/28/20 10:00 10:00 10:00 WBC RBC Hgb Hct MCV MCH RDW Lymph % (Auto) Lymph # Seg Neutrophils % Seg Neuts % (Manual) Lymphocytes % (Manual) Nucleated RBC % Seg Neutrophils # Seg Neutrophils # Man Lymphocytes # (Manual) PT INR D-Dimer ABG pH ABG pO2 ABG HCO3 ABG O2 Saturation ABG Base Excess ABG Hemoglobin Oxyhemoglobin Sodium 131 L Potassium 3.5 L Chloride Carbon Dioxide 16 L BUN 51 H Creatinine 3.5 H D Glucose 180 H POC Glucose Hemoglobin A1c Lactic Acid Calcium 7.5 L Magnesium Ferritin AST ALT Alkaline Phosphatase Lactate Dehydrogenase C-Reactive Protein Total Protein Albumin Vancomycin Trough Random Vancomycin 65.8 H Miscellaneous Test Flexitest 1 H 01/28/20 01/28/20 01/28/20 12:42 17:27 22:06 WBC RBC Hgb Hct MCV MCH RDW Lymph % (Auto) Lymph # Seg Neutrophils % Seg Neuts % (Manual) Lymphocytes % (Manual) Nucleated RBC % Seg Neutrophils # Seg Neutrophils # Man Lymphocytes # (Manual) PT INR D-Dimer ABG pH ABG pO2 ABG HCO3 ABG O2 Saturation ABG Base Excess ABG Hemoglobin Oxyhemoglobin Sodium Potassium Chloride Carbon Dioxide BUN Creatinine Glucose POC Glucose 188 H 161 H 158 H Hemoglobin A1c Lactic Acid Calcium Magnesium Ferritin AST ALT Alkaline Phosphatase Lactate Dehydrogenase C-Reactive Protein Total Protein Albumin Vancomycin Trough Random Vancomycin Miscellaneous Test 01/29/20 01/29/20 01/29/20 07:29 07:29 08:20 WBC 17.0 H RBC Hgb 9.6 L Hct 29.5 L MCV MCH 26 L RDW Lymph % (Auto) Lymph # Seg Neutrophils % Seg Neuts % (Manual) Lymphocytes % (Manual) Nucleated RBC % Seg Neutrophils # Seg Neutrophils # Man Lymphocytes # (Manual) PT INR D-Dimer ABG pH ABG pO2 ABG HCO3 ABG O2 Saturation ABG Base Excess ABG Hemoglobin Oxyhemoglobin Sodium 133 L Potassium Chloride Carbon Dioxide 15 L BUN 69 H Creatinine 4.1 H Glucose 161 H POC Glucose 170 H Hemoglobin A1c Lactic Acid Calcium 7.6 L Magnesium Ferritin AST ALT Alkaline Phosphatase Lactate Dehydrogenase C-Reactive Protein Total Protein Albumin Vancomycin Trough Random Vancomycin Miscellaneous Test 01/29/20 01/29/20 01/29/20 11:54 11:54 11:54 WBC RBC Hgb Hct MCV MCH RDW Lymph % (Auto) Lymph # Seg Neutrophils % Seg Neuts % (Manual) Lymphocytes % (Manual) Nucleated RBC % Seg Neutrophils # Seg Neutrophils # Man Lymphocytes # (Manual) PT INR D-Dimer 1499 H ABG pH ABG pO2 ABG HCO3 ABG O2 Saturation ABG Base Excess ABG Hemoglobin Oxyhemoglobin Sodium Potassium Chloride Carbon Dioxide BUN Creatinine Glucose POC Glucose Hemoglobin A1c Lactic Acid Calcium Magnesium Ferritin > 2000.0 H AST ALT Alkaline Phosphatase Lactate Dehydrogenase 946 H C-Reactive Protein 13.30 H Total Protein Albumin Vancomycin Trough Random Vancomycin Miscellaneous Test 01/29/20 01/29/20 01/29/20 12:55 16:19 22:13 WBC RBC Hgb Hct MCV MCH RDW Lymph % (Auto) Lymph # Seg Neutrophils % Seg Neuts % (Manual) Lymphocytes % (Manual) Nucleated RBC % Seg Neutrophils # Seg Neutrophils # Man Lymphocytes # (Manual) PT INR D-Dimer ABG pH ABG pO2 ABG HCO3 ABG O2 Saturation ABG Base Excess ABG Hemoglobin Oxyhemoglobin Sodium Potassium Chloride Carbon Dioxide BUN Creatinine Glucose POC Glucose 142 H 146 H 142 H Hemoglobin A1c Lactic Acid Calcium Magnesium Ferritin AST ALT Alkaline Phosphatase Lactate Dehydrogenase C-Reactive Protein Total Protein Albumin Vancomycin Trough Random Vancomycin Miscellaneous Test 01/30/20 01/30/20 01/30/20 05:19 05:19 08:04 WBC RBC Hgb Hct MCV MCH RDW Lymph % (Auto) Lymph # Seg Neutrophils % Seg Neuts % (Manual) Lymphocytes % (Manual) Nucleated RBC % Seg Neutrophils # Seg Neutrophils # Man Lymphocytes # (Manual) PT INR D-Dimer ABG pH ABG pO2 ABG HCO3 ABG O2 Saturation ABG Base Excess ABG Hemoglobin Oxyhemoglobin Sodium 134 L Potassium Chloride Carbon Dioxide 14 L BUN 87 H Creatinine 4.4 H Glucose 172 H POC Glucose 153 H Hemoglobin A1c Lactic Acid Calcium 7.6 L Magnesium Ferritin AST 152 H ALT 124 H Alkaline Phosphatase Lactate Dehydrogenase C-Reactive Protein Total Protein 5.5 L Albumin 1.8 L Vancomycin Trough 45.4 H Random Vancomycin Miscellaneous Test 01/30/20 01/30/20 01/30/20 12:21 16:51 22:54 WBC RBC Hgb Hct MCV MCH RDW Lymph % (Auto) Lymph # Seg Neutrophils % Seg Neuts % (Manual) Lymphocytes % (Manual) Nucleated RBC % Seg Neutrophils # Seg Neutrophils # Man Lymphocytes # (Manual) PT INR D-Dimer ABG pH ABG pO2 ABG HCO3 ABG O2 Saturation ABG Base Excess ABG Hemoglobin Oxyhemoglobin Sodium Potassium Chloride Carbon Dioxide BUN Creatinine Glucose POC Glucose 147 H 119 H 129 H Hemoglobin A1c Lactic Acid Calcium Magnesium Ferritin AST ALT Alkaline Phosphatase Lactate Dehydrogenase C-Reactive Protein Total Protein Albumin Vancomycin Trough Random Vancomycin Miscellaneous Test 01/31/20 01/31/20 01/31/20 03:49 03:49 03:49 WBC RBC Hgb Hct MCV MCH RDW Lymph % (Auto) Lymph # Seg Neutrophils % Seg Neuts % (Manual) Lymphocytes % (Manual) Nucleated RBC % Seg Neutrophils # Seg Neutrophils # Man Lymphocytes # (Manual) PT INR D-Dimer 801.37 H ABG pH ABG pO2 ABG HCO3 ABG O2 Saturation ABG Base Excess ABG Hemoglobin Oxyhemoglobin Sodium 134 L Potassium Chloride Carbon Dioxide 13 L BUN 97 H Creatinine 4.8 H Glucose 123 H POC Glucose Hemoglobin A1c Lactic Acid Calcium 7.6 L Magnesium Ferritin 3101.0 H AST 112 H ALT 112 H Alkaline Phosphatase 145 H Lactate Dehydrogenase 896 H C-Reactive Protein 11.10 H Total Protein 5.5 L Albumin 1.7 L Vancomycin Trough Random Vancomycin Miscellaneous Test 01/31/20 01/31/20 01/31/20 03:49 08:00 11:48 WBC 16.1 H RBC Hgb Hct MCV MCH 25 L RDW Lymph % (Auto) Lymph # Seg Neutrophils % Seg Neuts % (Manual) Lymphocytes % (Manual) Nucleated RBC % Seg Neutrophils # Seg Neutrophils # Man Lymphocytes # (Manual) PT INR D-Dimer ABG pH ABG pO2 ABG HCO3 ABG O2 Saturation ABG Base Excess ABG Hemoglobin Oxyhemoglobin Sodium Potassium Chloride Carbon Dioxide BUN Creatinine Glucose POC Glucose 133 H 136 H Hemoglobin A1c Lactic Acid Calcium Magnesium Ferritin AST ALT Alkaline Phosphatase Lactate Dehydrogenase C-Reactive Protein Total Protein Albumin Vancomycin Trough Random Vancomycin Miscellaneous Test 01/31/20 01/31/20 01/31/20 16:14 21:37 22:35 WBC RBC Hgb Hct MCV MCH RDW Lymph % (Auto) Lymph # Seg Neutrophils % Seg Neuts % (Manual) Lymphocytes % (Manual) Nucleated RBC % Seg Neutrophils # Seg Neutrophils # Man Lymphocytes # (Manual) PT INR D-Dimer ABG pH 7.226 L ABG pO2 77.9 L ABG HCO3 15.2 L ABG O2 Saturation 93.5 L ABG Base Excess -11.6 L ABG Hemoglobin Oxyhemoglobin 91.5 L Sodium Potassium Chloride Carbon Dioxide BUN Creatinine Glucose POC Glucose 151 H 179 H Hemoglobin A1c Lactic Acid Calcium Magnesium Ferritin AST ALT Alkaline Phosphatase Lactate Dehydrogenase C-Reactive Protein Total Protein Albumin Vancomycin Trough Random Vancomycin Miscellaneous Test 02/01/20 02/01/20 02/01/20 03:49 03:49 04:30 WBC 19.3 H RBC 3.53 L Hgb 9.0 L Hct 28.1 L MCV MCH 26 L RDW Lymph % (Auto) Lymph # Seg Neutrophils % Seg Neuts % (Manual) Lymphocytes % (Manual) Nucleated RBC % Seg Neutrophils # Seg Neutrophils # Man Lymphocytes # (Manual) PT INR D-Dimer ABG pH 7.290 L ABG pO2 120.0 H ABG HCO3 14.2 L ABG O2 Saturation ABG Base Excess -11.2 L ABG Hemoglobin 9.3 L Oxyhemoglobin Sodium 135 L Potassium Chloride Carbon Dioxide 13 L BUN 79 H Creatinine 4.1 H Glucose 198 H POC Glucose Hemoglobin A1c Lactic Acid Calcium 7.0 L Magnesium Ferritin AST ALT Alkaline Phosphatase Lactate Dehydrogenase C-Reactive Protein Total Protein Albumin Vancomycin Trough Random Vancomycin Miscellaneous Test 02/01/20 02/01/20 02/02/20 08:13 11:29 00:05 WBC RBC Hgb Hct MCV MCH RDW Lymph % (Auto) Lymph # Seg Neutrophils % Seg Neuts % (Manual) Lymphocytes % (Manual) Nucleated RBC % Seg Neutrophils # Seg Neutrophils # Man Lymphocytes # (Manual) PT INR D-Dimer ABG pH ABG pO2 ABG HCO3 ABG O2 Saturation ABG Base Excess ABG Hemoglobin Oxyhemoglobin Sodium Potassium Chloride Carbon Dioxide BUN Creatinine Glucose POC Glucose 153 H 181 H 214 H Hemoglobin A1c Lactic Acid Calcium Magnesium Ferritin AST ALT Alkaline Phosphatase Lactate Dehydrogenase C-Reactive Protein Total Protein Albumin Vancomycin Trough Random Vancomycin Miscellaneous Test 02/02/20 02/02/20 02/02/20 04:17 04:30 04:30 WBC RBC Hgb Hct MCV MCH RDW Lymph % (Auto) Lymph # Seg Neutrophils % Seg Neuts % (Manual) Lymphocytes % (Manual) Nucleated RBC % Seg Neutrophils # Seg Neutrophils # Man Lymphocytes # (Manual) PT INR D-Dimer 795.93 H ABG pH ABG pO2 ABG HCO3 ABG O2 Saturation ABG Base Excess -3.0 L ABG Hemoglobin 8.5 L Oxyhemoglobin Sodium Potassium Chloride Carbon Dioxide BUN Creatinine Glucose POC Glucose Hemoglobin A1c Lactic Acid Calcium Magnesium Ferritin 1978.0 H AST ALT Alkaline Phosphatase Lactate Dehydrogenase C-Reactive Protein Total Protein Albumin Vancomycin Trough Random Vancomycin Miscellaneous Test 02/02/20 02/02/20 02/02/20 04:30 04:30 05:34 WBC 17.3 H RBC 3.24 L Hgb 8.4 L Hct 24.9 L MCV 77 L MCH 26 L RDW Lymph % (Auto) Lymph # Seg Neutrophils % Seg Neuts % (Manual) Lymphocytes % (Manual) Nucleated RBC % Seg Neutrophils # Seg Neutrophils # Man Lymphocytes # (Manual) PT INR D-Dimer ABG pH ABG pO2 ABG HCO3 ABG O2 Saturation ABG Base Excess ABG Hemoglobin Oxyhemoglobin Sodium Potassium Chloride Carbon Dioxide 17 L BUN 61 H Creatinine 4.1 H Glucose 244 H POC Glucose 274 H Hemoglobin A1c Lactic Acid Calcium 7.2 L Magnesium Ferritin AST ALT Alkaline Phosphatase Lactate Dehydrogenase 841 H C-Reactive Protein 11.50 H Total Protein Albumin Vancomycin Trough Random Vancomycin Miscellaneous Test 02/02/20 02/02/20 02/02/20 12:26 18:06 23:37 WBC RBC Hgb Hct MCV MCH RDW Lymph % (Auto) Lymph # Seg Neutrophils % Seg Neuts % (Manual) Lymphocytes % (Manual) Nucleated RBC % Seg Neutrophils # Seg Neutrophils # Man Lymphocytes # (Manual) PT INR D-Dimer ABG pH ABG pO2 ABG HCO3 ABG O2 Saturation ABG Base Excess ABG Hemoglobin Oxyhemoglobin Sodium Potassium Chloride Carbon Dioxide BUN Creatinine Glucose POC Glucose 254 H 285 H 239 H Hemoglobin A1c Lactic Acid Calcium Magnesium Ferritin AST ALT Alkaline Phosphatase Lactate Dehydrogenase C-Reactive Protein Total Protein Albumin Vancomycin Trough Random Vancomycin Miscellaneous Test 02/03/20 02/03/20 02/03/20 04:40 04:56 10:41 WBC RBC Hgb Hct MCV MCH RDW Lymph % (Auto) Lymph # Seg Neutrophils % Seg Neuts % (Manual) Lymphocytes % (Manual) Nucleated RBC % Seg Neutrophils # Seg Neutrophils # Man Lymphocytes # (Manual) PT INR D-Dimer ABG pH 7.520 H ABG pO2 73.8 L 92.5 H ABG HCO3 ABG O2 Saturation ABG Base Excess ABG Hemoglobin 8.6 L 7.9 L Oxyhemoglobin Sodium Potassium Chloride Carbon Dioxide BUN Creatinine Glucose POC Glucose 227 H Hemoglobin A1c Lactic Acid Calcium Magnesium Ferritin AST ALT Alkaline Phosphatase Lactate Dehydrogenase C-Reactive Protein Total Protein Albumin Vancomycin Trough Random Vancomycin Miscellaneous Test 02/03/20 02/03/20 02/03/20 12:09 17:23 23:41 WBC RBC Hgb Hct MCV MCH RDW Lymph % (Auto) Lymph # Seg Neutrophils % Seg Neuts % (Manual) Lymphocytes % (Manual) Nucleated RBC % Seg Neutrophils # Seg Neutrophils # Man Lymphocytes # (Manual) PT INR D-Dimer ABG pH ABG pO2 ABG HCO3 ABG O2 Saturation ABG Base Excess ABG Hemoglobin Oxyhemoglobin Sodium Potassium Chloride Carbon Dioxide BUN Creatinine Glucose POC Glucose 268 H 255 H 239 H Hemoglobin A1c Lactic Acid Calcium Magnesium Ferritin AST ALT Alkaline Phosphatase Lactate Dehydrogenase C-Reactive Protein Total Protein Albumin Vancomycin Trough Random Vancomycin Miscellaneous Test 02/04/20 02/04/20 02/04/20 04:31 04:42 04:42 WBC RBC Hgb Hct MCV MCH RDW Lymph % (Auto) Lymph # Seg Neutrophils % Seg Neuts % (Manual) Lymphocytes % (Manual) Nucleated RBC % Seg Neutrophils # Seg Neutrophils # Man Lymphocytes # (Manual) PT INR D-Dimer 694.19 H ABG pH ABG pO2 ABG HCO3 ABG O2 Saturation ABG Base Excess ABG Hemoglobin Oxyhemoglobin Sodium Potassium Chloride Carbon Dioxide BUN Creatinine Glucose POC Glucose 216 H Hemoglobin A1c Lactic Acid Calcium Magnesium Ferritin 1660.0 H AST ALT Alkaline Phosphatase Lactate Dehydrogenase C-Reactive Protein Total Protein Albumin Vancomycin Trough Random Vancomycin Miscellaneous Test 02/04/20 02/04/20 02/04/20 04:42 04:42 12:03 WBC 13.7 H RBC 2.92 L Hgb 7.4 L Hct 23.0 L MCV MCH 25 L RDW Lymph % (Auto) Lymph # Seg Neutrophils % Seg Neuts % (Manual) Lymphocytes % (Manual) Nucleated RBC % Seg Neutrophils # Seg Neutrophils # Man Lymphocytes # (Manual) PT INR D-Dimer ABG pH ABG pO2 ABG HCO3 ABG O2 Saturation ABG Base Excess ABG Hemoglobin Oxyhemoglobin Sodium Potassium Chloride Carbon Dioxide 17 L BUN 80 H Creatinine 5.8 H Glucose 209 H POC Glucose 248 H Hemoglobin A1c Lactic Acid Calcium 8.3 L D Magnesium Ferritin AST ALT Alkaline Phosphatase Lactate Dehydrogenase 972 H C-Reactive Protein 6.20 H Total Protein Albumin Vancomycin Trough Random Vancomycin Miscellaneous Test 02/04/20 02/04/20 02/04/20 17:42 23:48 Unknown WBC RBC Hgb Hct MCV MCH RDW Lymph % (Auto) Lymph # Seg Neutrophils % Seg Neuts % (Manual) Lymphocytes % (Manual) Nucleated RBC % Seg Neutrophils # Seg Neutrophils # Man Lymphocytes # (Manual) PT INR D-Dimer ABG pH 7.484 H ABG pO2 104.8 H ABG HCO3 ABG O2 Saturation ABG Base Excess ABG Hemoglobin 9.5 L Oxyhemoglobin Sodium Potassium Chloride Carbon Dioxide BUN Creatinine Glucose POC Glucose 209 H 166 H Hemoglobin A1c Lactic Acid Calcium Magnesium Ferritin AST ALT Alkaline Phosphatase Lactate Dehydrogenase C-Reactive Protein Total Protein Albumin Vancomycin Trough Random Vancomycin Miscellaneous Test 02/05/20 02/05/20 02/05/20 03:51 03:51 05:43 WBC 13.9 H RBC 2.98 L Hgb 7.6 L Hct 23.4 L MCV MCH 26 L RDW Lymph % (Auto) Lymph # Seg Neutrophils % Seg Neuts % (Manual) Lymphocytes % (Manual) Nucleated RBC % Seg Neutrophils # Seg Neutrophils # Man Lymphocytes # (Manual) PT INR D-Dimer ABG pH ABG pO2 ABG HCO3 ABG O2 Saturation ABG Base Excess ABG Hemoglobin Oxyhemoglobin Sodium Potassium Chloride Carbon Dioxide 19 L BUN 65 H Creatinine 5.9 H Glucose 167 H POC Glucose 148 H Hemoglobin A1c Lactic Acid Calcium 8.3 L Magnesium Ferritin AST ALT Alkaline Phosphatase Lactate Dehydrogenase C-Reactive Protein Total Protein Albumin Vancomycin Trough Random Vancomycin Miscellaneous Test 02/05/20 02/05/20 02/05/20 12:34 18:55 23:48 WBC RBC Hgb Hct MCV MCH RDW Lymph % (Auto) Lymph # Seg Neutrophils % Seg Neuts % (Manual) Lymphocytes % (Manual) Nucleated RBC % Seg Neutrophils # Seg Neutrophils # Man Lymphocytes # (Manual) PT INR D-Dimer ABG pH ABG pO2 ABG HCO3 ABG O2 Saturation ABG Base Excess ABG Hemoglobin Oxyhemoglobin Sodium Potassium Chloride Carbon Dioxide BUN Creatinine Glucose POC Glucose 267 H 166 H 241 H Hemoglobin A1c Lactic Acid Calcium Magnesium Ferritin AST ALT Alkaline Phosphatase Lactate Dehydrogenase C-Reactive Protein Total Protein Albumin Vancomycin Trough Random Vancomycin Miscellaneous Test 02/05/20 02/06/20 02/06/20 Unknown 03:38 03:38 WBC RBC Hgb Hct MCV MCH RDW Lymph % (Auto) Lymph # Seg Neutrophils % Seg Neuts % (Manual) Lymphocytes % (Manual) Nucleated RBC % Seg Neutrophils # Seg Neutrophils # Man Lymphocytes # (Manual) PT INR D-Dimer 1067.61 H ABG pH 7.497 H ABG pO2 111.6 H ABG HCO3 ABG O2 Saturation ABG Base Excess ABG Hemoglobin 7.4 L Oxyhemoglobin Sodium Potassium Chloride Carbon Dioxide BUN Creatinine Glucose POC Glucose Hemoglobin A1c Lactic Acid Calcium Magnesium Ferritin 1277.0 H AST ALT Alkaline Phosphatase Lactate Dehydrogenase C-Reactive Protein Total Protein Albumin Vancomycin Trough Random Vancomycin Miscellaneous Test 02/06/20 02/06/20 02/06/20 03:38 03:38 06:04 WBC 13.8 H RBC 3.16 L Hgb 8.0 L Hct 25.7 L MCV MCH 25 L RDW Lymph % (Auto) Lymph # Seg Neutrophils % Seg Neuts % (Manual) Lymphocytes % (Manual) Nucleated RBC % Seg Neutrophils # Seg Neutrophils # Man Lymphocytes # (Manual) PT INR D-Dimer ABG pH ABG pO2 ABG HCO3 ABG O2 Saturation ABG Base Excess ABG Hemoglobin Oxyhemoglobin Sodium Potassium Chloride Carbon Dioxide 21 L BUN 66 H Creatinine 6.0 H Glucose 213 H POC Glucose 232 H Hemoglobin A1c Lactic Acid Calcium Magnesium Ferritin AST ALT Alkaline Phosphatase Lactate Dehydrogenase 48 L C-Reactive Protein Total Protein Albumin Vancomycin Trough Random Vancomycin Miscellaneous Test 02/06/20 02/06/20 02/06/20 11:54 17:34 22:20 WBC RBC Hgb Hct MCV MCH RDW Lymph % (Auto) Lymph # Seg Neutrophils % Seg Neuts % (Manual) Lymphocytes % (Manual) Nucleated RBC % Seg Neutrophils # Seg Neutrophils # Man Lymphocytes # (Manual) PT INR D-Dimer ABG pH ABG pO2 ABG HCO3 ABG O2 Saturation ABG Base Excess ABG Hemoglobin Oxyhemoglobin Sodium Potassium Chloride Carbon Dioxide BUN Creatinine Glucose POC Glucose 230 H 220 H 262 H Hemoglobin A1c Lactic Acid Calcium Magnesium Ferritin AST ALT Alkaline Phosphatase Lactate Dehydrogenase C-Reactive Protein Total Protein Albumin Vancomycin Trough Random Vancomycin Miscellaneous Test 02/07/20 02/07/20 02/07/20 05:05 05:05 05:24 WBC 15.0 H RBC 3.30 L Hgb 8.3 L Hct 26.6 L MCV MCH 25 L RDW Lymph % (Auto) Lymph # Seg Neutrophils % Seg Neuts % (Manual) Lymphocytes % (Manual) Nucleated RBC % Seg Neutrophils # Seg Neutrophils # Man Lymphocytes # (Manual) PT INR D-Dimer ABG pH ABG pO2 ABG HCO3 ABG O2 Saturation ABG Base Excess ABG Hemoglobin Oxyhemoglobin Sodium Potassium Chloride Carbon Dioxide BUN 63 H Creatinine 6.1 H Glucose 231 H POC Glucose 192 H Hemoglobin A1c Lactic Acid Calcium Magnesium Ferritin AST ALT Alkaline Phosphatase Lactate Dehydrogenase C-Reactive Protein Total Protein Albumin Vancomycin Trough Random Vancomycin Miscellaneous Test 02/07/20 12:07 WBC RBC Hgb Hct MCV MCH RDW Lymph % (Auto) Lymph # Seg Neutrophils % Seg Neuts % (Manual) Lymphocytes % (Manual) Nucleated RBC % Seg Neutrophils # Seg Neutrophils # Man Lymphocytes # (Manual) PT INR D-Dimer ABG pH ABG pO2 ABG HCO3 ABG O2 Saturation ABG Base Excess ABG Hemoglobin Oxyhemoglobin Sodium Potassium Chloride Carbon Dioxide BUN Creatinine Glucose POC Glucose 218 H Hemoglobin A1c Lactic Acid Calcium Magnesium Ferritin AST ALT Alkaline Phosphatase Lactate Dehydrogenase C-Reactive Protein Total Protein Albumin Vancomycin Trough Random Vancomycin Miscellaneous Test Allied health notes reviewed: nursing
--- NOTE | 2020-02-07 15:03 | Progress Note ---
Assessment and Plan - Patient Problems (1) Acute kidney injury (CIPRIANO) with acute tubular necrosis (ATN) Current Visit: Yes Status: Acute Plan to address problem: No signs of renal recovery noted at present time. Will plan to maintain on MW inpatient HD schedule, and assess daily for need of extra isolated UF sessions in order to optimize her volume control. No acute HD needs today. (2) Acute respiratory failure with hypoxia Current Visit: Yes Status: Acute Plan to address problem: Patient self extubated. Management per pulmonology. Stable on NC. (3) Pneumonia due to COVID-19 virus Current Visit: Yes Status: Acute Plan to address problem: Management per ID recommendations. (4) Type 2 diabetes mellitus with hyperglycemia Current Visit: Yes Status: Acute Plan to address problem: DM management per primary attending Subjective Date of service: 02/07/20 Principal diagnosis: Severe Sepsis; LEV PNA; DM II; COVID-19 infection; CIPRIANO Interval history: Transferred to medical floor. Received HD yesterday with removal of 2.5L UF. No issues with HD session per HD staff. Plan for next session tomorrow. No signs of renal recovery yet. PUI?: No COVID19: Positive Objective - Vital Signs Vital signs: Vital Signs - 12hr 02/07/20 02/07/20 02/07/20 05:15 10:00 11:56 Temperature 99.0 F 98.1 F Pulse Rate 88 84 Respiratory 18 24 Rate Blood Pressure 146/81 133/78 O2 Sat by Pulse 95 95 96 Oximetry - General Appearance General appearance: appears stated age EENT: ATNC Neck: no JVD Respiratory: Present: Decreased Breath Sounds Cardiology: regular Gastrointestinal: normal Integumentary: no rash Neurologic: no focal deficit Musculoskeletal: deferred - Lab 02/07/20 05:05 02/07/20 05:05 Most recent lab results ABG pH 7.497 pH Units (7.350-7.450) H 02/05/20 Unknown ABG pCO2 30.2 mm Hg 02/05/20 Unknown ABG pO2 111.6 mm Hg (80.0-90.0) H 02/05/20 Unknown ABG HCO3 22.9 mmol/L (20.0-26.0) 02/05/20 Unknown ABG O2 Saturation 98.3 % (95.0-99.0) 02/05/20 Unknown Calcium 8.6 mg/dL (8.4-10.2) 02/07/20 05:05 Magnesium 1.50 mg/dL (1.7-2.3) L 01/17/20 22:58 - Allied health notes Allied health notes reviewed: nursing Medications & Allergies - Medications Allergies/Adverse Reactions: Allergies No Known Allergies Allergy (Verified 09/12/18 00:37) Home Medications: Home Medications Medication Instructions Recorded Confirmed Last Taken Type glipiZIDE-Metformin 5-500 mg 500 mg PO BID 01/17/20 01/17/20 Unknown History Active Medications: Generic Name Dose Route Start Last Admin Trade Name Freq PRN Reason Stop Dose Admin Acetaminophen 650 mg 01/17/20 23:06 01/29/20 22:43 Tylenol PO 650 mg Q4H PRN Administration Pain MILD(1-3)/Fever >100.5/COLLINS Lipase/Protease/Amylase 1 each 02/01/20 09:[address] 10,500 Unit FEEDTUBE PRN PRN For Clogged Feeding Tube Dextrose 0 ml 01/17/20 23:06 D50w (25gm) Syringe IV Q30MIN PRN Hypoglycemia Protocol Famotidine 20 mg 01/24/20 10:00 02/07/20 11:06 Pepcid PO 20 mg QDAY COBY Administration Heparin Sodium (Porcine) 5,000 unit 01/18/20 06:00 02/07/20 14:35 Heparin SUB-Q 5,000 unit Q8HR COBY Administration Hydralazine HCl 10 mg 01/18/20 22:14 01/22/20 18:43 Apresoline IV 10 mg Q6H PRN Administration Hypertension Hydrophilic Ointment 1 applic 01/31/20 21:48 Vaseline Lip Therapy TP Q2HR PRN Dry Lips Piperacillin Sod/Tazobactam Sod 2.25 gm in 50 mls @ 100 mls/hr 02/01/20 14:00 02/07/20 06:25 Zosyn/Ns 2.25 Gm/50ml IV 02/07/20 23:59 Infused Q8HR COBY Infusion Protocol Sodium Chloride 100 mls @ 999 mls/hr 02/05/20 11:31 Nacl 0.9% IV KIRSTEN PRN Hypotension Insulin Human Isoph/Insulin Regular 25 unit 02/06/20 22:00 02/07/20 11:05 Humulin 70/30 SUB-Q 25 unit BID COBY Administration Insulin Human Regular 0 units 02/01/20 12:00 02/07/20 12:29 Humulin R SUB-Q 4 units Q6HR COBY Administration Protocol Insulin Human Regular 5 units 02/04/20 12:00 02/07/20 12:30 Humulin R SUB-Q 5 units Q6HR COBY Administration Magnesium Hydroxide 30 ml 01/17/20 23:06 Milk Of Magnesia PO Q4H PRN Constipation Morphine Sulfate 2 mg 01/17/20 23:06 02/05/20 11:49 Morphine IV 2 mg Q4H PRN Administration Pain, Moderate (4-6) Multi-Ingred Cream/Lotion/Oil/Oint 1 applic 01/31/20 21:48 Artificial Tears Ophth Oint OU Q4HR PRN Dry Eye(s) Nystatin 1 applic 01/29/20 14:00 02/07/20 11:13 Nystop TP 1 applic BID COBY Administration Ondansetron HCl 4 mg 01/17/20 23:06 01/30/20 20:47 Zofran IV 4 mg Q8H PRN Administration Nausea And Vomiting Simple Syrup 15 ml 02/01/20 09:53 Simple Syrup FEEDTUBE PRN PRN Hypoglycemia Simple Syrup 30 ml 02/01/20 09:53 Simple Syrup FEEDTUBE PRN PRN Hypoglycemia Sodium Bicarbonate 325 mg 02/01/20 09:53 Sodium Bicarbonate FEEDTUBE PRN PRN For Clogged Feeding Tube Sodium Chloride 10 ml 01/18/20 10:00 02/07/20 11:08 Sodium Chloride Flush Syringe 10 Ml IV 10 ml BID COBY Administration Sodium Chloride 10 ml 01/17/20 23:06 02/04/20 05:07 Sodium Chloride Flush Syringe 10 Ml IV 10 ml PRN PRN Administration LINE FLUSH
--- NOTE | 2020-02-07 15:06 | Progress Note ---
Assessment and Plan Cultures: Blood culture 01/17/2020 no growth to date Urine culture 01/17/2020 no growth to date Sputum normal resp dulce OR culture no growth today A/P: 29-year-old female past medical history diabetes admitted with acute sepsis secondary to right foot wound versus pneumonia. #Acute sepsis: fever resolved, now leukoctosis improving. Secondary to her left tight abscess versus pneumonia. #Severe COVID-19 pneumonia: Coronavirus testing has returned positive. Very high inflammatory markers - ferritin 2758. Markers down. IL-6 elevated 105. S/p plaquenil Day 5 #Acute respiratory failure:self extubated on venturi mask, now on NC O2 #Left thigh abscess: surgery on board s/p I+D with wound VAC #Right foot wound: Will need MRI when more stable to rule out osteomyelitis of the toe #Diabetes: uncontrolled #CIPRIANO: renally adjust abx, worsening on HD #Morbid obesity Recs: Stop zosyn renally adjusted Day 7 Continuos pulse oximetry and exercise oxymetry - 2 min walking as possible PT ContinueCOVID isolationprecautions per [facility] protocol Right foot toe infection stable, deferred MRI for now will follow Janett Duffy MD Infectious Diseases Telephone Information Supervisor [facility] ([facility]) M [phone] O [phone] Subjective Date of service: 02/07/20 Principal diagnosis: Severe Sepsis; LEV PNA; DM II; COVID-19 infection; CIPRIANO Interval history: Alert talking slightly sleepy no fever on 48h, poor appetite on NC 2 L PUI?: No COVID19: Positive Objective - Exam Narrative Exam: Constitutional: alert on NC O2 Oral: limited due to lack opf PPE Cardiovascular: Respiratory: GI: Soft, obese Musculoskeletal: Right hallux wound, left foot callus. Left thigh wound VAC Skin: Hem/Lymphatic: Psych: alert Neurological: alert - Constitutional Vitals: Vital Signs Temp Pulse Resp BP Pulse Ox 98.1 F 84 24 133/78 96 02/07/20 11:56 02/07/20 11:56 02/07/20 11:56 02/07/20 11:56 02/07/20 11:56 Temperature -Last 24 Hours Temperature 98.1 F Temperature 99.0 F Temperature 98.7 F Temperature 99.0 F Temperature 99.1 F - Labs CBC & Chem 7: 02/07/20 05:05 02/07/20 05:05 Labs: Abnormal lab results 02/06/20 02/06/20 02/06/20 Range/Units 11:54 17:34 22:20 WBC (4.5-11.0) K/mm3 RBC (3.65-5.03) M/mm3 Hgb (10.1-14.3) gm/dl Hct (30.3-42.9) % MCH (28-32) pg BUN (7-17) mg/dL Creatinine (0.7-1.2) mg/dL Glucose (65-100) mg/dL POC Glucose 230 H 220 H 262 H (70-105) 02/07/20 02/07/20 02/07/20 Range/Units 05:05 05:05 05:24 WBC 15.0 H (4.5-11.0) K/mm3 RBC 3.30 L (3.65-5.03) M/mm3 Hgb 8.3 L (10.1-14.3) gm/dl Hct 26.6 L (30.3-42.9) % MCH 25 L (28-32) pg BUN 63 H (7-17) mg/dL Creatinine 6.1 H (0.7-1.2) mg/dL Glucose 231 H (65-100) mg/dL POC Glucose 192 H (70-105) 02/07/20 Range/Units 12:07 WBC (4.5-11.0) K/mm3 RBC (3.65-5.03) M/mm3 Hgb (10.1-14.3) gm/dl Hct (30.3-42.9) % MCH (28-32) pg BUN (7-17) mg/dL Creatinine (0.7-1.2) mg/dL Glucose (65-100) mg/dL POC Glucose 218 H (70-105)
[2020-02-08] MEDS: INSULIN REGULAR, HUMAN 100 UNITS/1 ML SUB-Q SCH ×8 (00:47→17:46)
[2020-02-08] MEDS: HEPARIN 5,000 UNIT/1 ML VIAL SUB-Q SCH ×3 (05:16→23:38)
[2020-02-08 05:54] LABS: C-Reactive Protein 5.5 mg/dL (0.00-1.30)
[2020-02-08] MEDS: FAMOTIDINE 20 MG TAB PO SCH (09:41)
[2020-02-08] MEDS: NYSTATIN POWDER 15 GM TP SCH ×2 (09:42→23:38)
[2020-02-08] MEDS: INSULIN NPH/REGULAR 70/30 INJ SUB-Q SCH ×3 (09:52→23:45)
[2020-02-08] MEDS ORDERED: SODIUM CHLORIDE 0.9% 100 ML IV PRN (10:14)
--- NOTE | 2020-02-08 14:08 | Progress Note ---
Assessment and Plan - Patient Problems (1) Acute kidney injury (CIPRIANO) with acute tubular necrosis (ATN) Current Visit: Yes Status: Acute Plan to address problem: No signs of renal recovery noted at present time. Will plan to maintain on MWF inpatient HD schedule, and assess daily for need of extra isolated UF sessions in order to optimize her volume control. Plan for HD today. As she has not shown signs of recovery, would recommend that we plan for permcath placement next week in anticipation for outpatient HD needs. (2) Acute respiratory failure with hypoxia Current Visit: Yes Status: Acute Plan to address problem: Patient self extubated. Management per pulmonology. Stable on NC. (3) Pneumonia due to COVID-19 virus Current Visit: Yes Status: Acute Plan to address problem: Management per ID recommendations. (4) Type 2 diabetes mellitus with hyperglycemia Current Visit: Yes Status: Acute Plan to address problem: DM management per primary attending Subjective Date of service: 02/08/20 Principal diagnosis: Severe Sepsis; LEV PNA; DM II; COVID-19 infection; CIPRIANO Interval history: No acute changes, remains on 3L O2 via NC. Plan for HD today. PUI?: No COVID19: Positive Objective - Vital Signs Vital signs: Vital Signs - 12hr 02/08/20 02/08/20 06:23 11:39 Temperature 99.2 F 98.4 F Pulse Rate 90 89 Respiratory 20 22 Rate Blood Pressure 143/79 161/91 O2 Sat by Pulse 100 100 Oximetry - General Appearance General appearance: appears stated age EENT: ATNC Neck: no JVD Respiratory: Present: Decreased Breath Sounds Cardiology: regular Gastrointestinal: normal Integumentary: no rash Neurologic: no focal deficit Musculoskeletal: deferred - Lab 02/07/20 05:05 02/07/20 05:05 Most recent lab results ABG pH 7.497 pH Units (7.350-7.450) H 02/05/20 Unknown ABG pCO2 30.2 mm Hg 02/05/20 Unknown ABG pO2 111.6 mm Hg (80.0-90.0) H 02/05/20 Unknown ABG HCO3 22.9 mmol/L (20.0-26.0) 02/05/20 Unknown ABG O2 Saturation 98.3 % (95.0-99.0) 02/05/20 Unknown Calcium 8.6 mg/dL (8.4-10.2) 02/07/20 05:05 Magnesium 1.50 mg/dL (1.7-2.3) L 01/17/20 22:58 - Allied health notes Allied health notes reviewed: nursing Medications & Allergies - Medications Allergies/Adverse Reactions: Allergies No Known Allergies Allergy (Verified 09/12/18 00:37) Home Medications: Home Medications Medication Instructions Recorded Confirmed Last Taken Type glipiZIDE-Metformin 5-500 mg 500 mg PO BID 01/17/20 01/17/20 Unknown History Active Medications: Generic Name Dose Route Start Last Admin Trade Name Freq PRN Reason Stop Dose Admin Acetaminophen 650 mg 01/17/20 23:06 01/29/20 22:43 Tylenol PO 650 mg Q4H PRN Administration Pain MILD(1-3)/Fever >100.5/COLLINS Lipase/Protease/Amylase 1 each 02/01/20 09:[address] 10,500 Unit FEEDTUBE PRN PRN For Clogged Feeding Tube Dextrose 0 ml 01/17/20 23:06 D50w (25gm) Syringe IV Q30MIN PRN Hypoglycemia Protocol Famotidine 20 mg 01/24/20 10:00 02/08/20 09:41 Pepcid PO 20 mg QDAY COBY Administration Heparin Sodium (Porcine) 5,000 unit 01/18/20 06:00 02/08/20 13:41 Heparin SUB-Q 5,000 unit Q8HR COBY Administration Hydralazine HCl 10 mg 01/18/20 22:14 01/22/20 18:43 Apresoline IV 10 mg Q6H PRN Administration Hypertension Hydrophilic Ointment 1 applic 01/31/20 21:48 Vaseline Lip Therapy TP Q2HR PRN Dry Lips Sodium Chloride 100 mls @ 999 mls/hr 02/05/20 11:31 Nacl 0.9% IV KIRSTEN PRN Hypotension Insulin Human Isoph/Insulin Regular 25 unit 02/06/20 22:00 02/08/20 09:52 Humulin 70/30 SUB-Q Not Given BID COBY Insulin Human Regular 0 units 02/01/20 12:00 02/08/20 13:41 Humulin R SUB-Q 3 units Q6HR COBY Administration Protocol Insulin Human Regular 5 units 02/04/20 12:00 02/08/20 12:27 Humulin R SUB-Q Not Given Q6HR COBY Magnesium Hydroxide 30 ml 01/17/20 23:06 Milk Of Magnesia PO Q4H PRN Constipation Morphine Sulfate 2 mg 01/17/20 23:06 02/05/20 11:49 Morphine IV 2 mg Q4H PRN Administration Pain, Moderate (4-6) Multi-Ingred Cream/Lotion/Oil/Oint 1 applic 01/31/20 21:48 Artificial Tears Ophth Oint OU Q4HR PRN Dry Eye(s) Nystatin 1 applic 01/29/20 14:00 02/08/20 09:42 Nystop TP 1 applic BID COBY Administration Ondansetron HCl 4 mg 01/17/20 23:06 01/30/20 20:47 Zofran IV 4 mg Q8H PRN Administration Nausea And Vomiting Simple Syrup 15 ml 02/01/20 09:53 Simple Syrup FEEDTUBE PRN PRN Hypoglycemia Simple Syrup 30 ml 02/01/20 09:53 Simple Syrup FEEDTUBE PRN PRN Hypoglycemia Sodium Bicarbonate 325 mg 02/01/20 09:53 Sodium Bicarbonate FEEDTUBE PRN PRN For Clogged Feeding Tube Sodium Chloride 10 ml 01/18/20 10:00 02/08/20 09:41 Sodium Chloride Flush Syringe 10 Ml IV 10 ml BID COBY Administration Sodium Chloride 10 ml 01/17/20 23:06 02/04/20 05:07 Sodium Chloride Flush Syringe 10 Ml IV 10 ml PRN PRN Administration LINE FLUSH
--- NOTE | 2020-02-08 15:01 | Progress Note ---
Assessment and Plan 29 year old female with sepsis, COVID-19 pneumonia, renal failure, and s/p incision, drainage, and debridement of left thigh abscess. stable and afebrile with bump in leukocystosis. 1. no additional surgical intervention needed at this time for left thigh wound. Will continue wound vac changes with the next scheduled vac change on Tuesday. Continue abx per ID recs. Subjective Date of service: 02/08/20 Patient Reports: Positive: other (no acute events overnight). Negative: nausea Objective Vital Signs - 12hr 02/08/20 02/08/20 06:23 11:39 Temperature 99.2 F 98.4 F Pulse Rate 90 89 Respiratory 20 22 Rate Blood Pressure 143/79 161/91 O2 Sat by Pulse 100 100 Oximetry - General physical appearance other (Pt is more alert and talkative than usual. Cooperative with wound vac change) - Respiratory normal expansion, normal respiratory effort - Integumentary other (Wound vac changed. wound bed with good granulation tissue. no purulent drainage. no odor. non draining eschars at the superior anterior thigh. (left)) - Labs 02/07/20 05:05 02/07/20 05:05
--- NOTE | 2020-02-08 15:51 | Progress Note ---
Assessment and Plan Acute Hypoxemic Respiratory failure Severe Sepsis COVID-19 infection Left upper lobe pneumonia Diabetes II Morbid obesity Febrile illness Diabetic foot ulcer Hyponatremia Lactic acidosis - no new issues; continue care as below - continue to wean supplemental oxygen to keep O2 sats > 90% - COVID-19 precautions per [facility] protocol - continue contact, droplet and airborne precautions - off Plaquenil - Follow IL-6 (sent out) to evaluate cytokine release syndrome due to COVID and consider IV tocilizumab (Actemra) (off-label use)- per ID recommendations - Very high inflammatory markers - ferritin 2758; CRP/LDH trending down (At risk for cytokine storm secondary to COVID and high risk for ARDS) - Conservative fluid management (use vasopressors including midodrine to support blood pressure). - Accuchecks with glycemic control, keep blood glucose < 180 mg/dL (Avoid hypoglycemia) - Avoid nephrotoxins, adjust and dose all medications fro GFR and CrCL - continue GI & VTE prophylaxis - continue wound care per RN / WCT - continue surgical evaluation - prn analgesia per pain score - mobility protocols to prevent pressure ulcers - continued smoking abstinence strongly counseled at the bedside prior to decom pensation - GI & VTE prophylaxis - Flu & pneumovax per protocol - continue other care per attending / other consultants ... re-evaluate in am & prn CONDITION: FAIR PROGNOSIS: IMPROVED CODE STATUS: FULL CODE Subjective Date of service: 02/08/20 Principal diagnosis: Severe Sepsis; LEV PNA; DM II; COVID-19 infection; CIPRIANO Interval history: Patient is seen today for: Acute Hypoxemic Respiratory failure; Severe Sepsis; LEV pneumonia; Diabetes II; Morbid obesity; COVID-19 infection; Diabetic foot ulcer; Hyponatremia; Lactic acidosis Seen and examined at bedside; 24hour events reviewed; nursing and respiratory care staff consulted; no adverse overnight events reported to me; resting peacefully in bed; remains on supplemental oxygen; no hemoptysis PUI?: No COVID19: Positive Objective Vital Signs - 12hr 02/08/20 02/08/20 02/08/20 06:23 11:39 15:09 Temperature 99.2 F 98.4 F Pulse Rate 90 89 85 Respiratory 20 22 Rate Blood Pressure 143/79 161/91 170/89 O2 Sat by Pulse 100 100 Oximetry 02/08/20 02/08/20 02/08/20 15:15 15:30 15:44 Temperature Pulse Rate 84 88 86 Respiratory Rate Blood Pressure 163/90 163/87 167/97 O2 Sat by Pulse Oximetry Constitutional: alert, other (young obese AAF, normocephalic with mildly increased resp effort at rest) Eyes: non-icteric ENT: oropharynx moist, other (extubated) Neck: supple, no lymphadenopathy, no JVD Effort: mildly labored Ascultation: Bilateral: diminished breath sounds, rales (scant in bases) Percussion: Bilateral: not dull Cardiovascular: regular rate and rhythm Gastrointestinal: normoactive bowel sounds, soft, non-tender, non-distended Integumentary: normal Extremities: no cyanosis, no edema, pulses normal, no ischemia or petechiae Neurologic: normal mental status, non-focal exam, pupils equal and round, CN II- XII normal Psychiatric: mood appropriate, affect normal CBC and BMP: 02/09/20 05:27 02/09/20 05:27 ABG, PT/INR, D-dimer: ABG ABG pH 7.497 pH Units (7.350-7.450) H 02/05/20 Unknown ABG pCO2 30.2 mm Hg 02/05/20 Unknown ABG pO2 111.6 mm Hg (80.0-90.0) H 02/05/20 Unknown ABG O2 Saturation 98.3 % (95.0-99.0) 02/05/20 Unknown PT/INR, D-dimer PT 15.6 Sec. (12.2-14.9) H 01/17/20 18:28 INR 1.22 (0.87-1.13) H 01/17/20 18:28 D-Dimer 1210.49 ng/mlDDU (0-234) H 02/08/20 04:57 Abnormal lab findings: Abnormal Labs 01/17/20 01/17/20 01/17/20 18:28 18:28 18:28 WBC RBC Hgb Hct MCV MCH 26 L RDW Lymph % (Auto) 9.3 L Lymph # 1.0 L Seg Neutrophils % 86.7 H Seg Neuts % (Manual) Lymphocytes % (Manual) Nucleated RBC % Seg Neutrophils # 9.6 H Seg Neutrophils # Man Lymphocytes # (Manual) PT 15.6 H INR 1.22 H D-Dimer ABG pH ABG pO2 ABG HCO3 ABG O2 Saturation ABG Base Excess ABG Hemoglobin Oxyhemoglobin Sodium 126 L Potassium Chloride 89.3 L Carbon Dioxide 19 L BUN Creatinine Glucose 397 H POC Glucose Hemoglobin A1c Lactic Acid Calcium Magnesium Ferritin AST ALT Alkaline Phosphatase Lactate Dehydrogenase C-Reactive Protein Total Protein 9.0 H Albumin Vancomycin Trough Random Vancomycin Miscellaneous Test 01/17/20 01/17/20 01/17/20 18:28 22:58 22:58 WBC RBC Hgb Hct MCV MCH RDW Lymph % (Auto) Lymph # Seg Neutrophils % Seg Neuts % (Manual) Lymphocytes % (Manual) Nucleated RBC % Seg Neutrophils # Seg Neutrophils # Man Lymphocytes # (Manual) PT INR D-Dimer ABG pH ABG pO2 ABG HCO3 ABG O2 Saturation ABG Base Excess ABG Hemoglobin Oxyhemoglobin Sodium Potassium Chloride Carbon Dioxide BUN Creatinine Glucose POC Glucose Hemoglobin A1c Lactic Acid 3.40 H* 2.30 H* Calcium Magnesium 1.50 L Ferritin AST ALT Alkaline Phosphatase Lactate Dehydrogenase C-Reactive Protein 16.60 H Total Protein Albumin Vancomycin Trough Random Vancomycin Miscellaneous Test 01/18/20 01/18/20 01/18/20 00:46 06:34 08:30 WBC RBC Hgb Hct MCV MCH 26 L RDW 12.7 L Lymph % (Auto) Lymph # Seg Neutrophils % 80.1 H Seg Neuts % (Manual) Lymphocytes % (Manual) Nucleated RBC % Seg Neutrophils # Seg Neutrophils # Man Lymphocytes # (Manual) PT INR D-Dimer ABG pH ABG pO2 ABG HCO3 ABG O2 Saturation ABG Base Excess ABG Hemoglobin Oxyhemoglobin Sodium Potassium Chloride Carbon Dioxide BUN Creatinine Glucose POC Glucose 338 H 266 H Hemoglobin A1c Lactic Acid Calcium Magnesium Ferritin AST ALT Alkaline Phosphatase Lactate Dehydrogenase C-Reactive Protein Total Protein Albumin Vancomycin Trough Random Vancomycin Miscellaneous Test 01/18/20 01/18/20 01/18/20 08:30 08:35 12:30 WBC RBC Hgb Hct MCV MCH RDW Lymph % (Auto) Lymph # Seg Neutrophils % Seg Neuts % (Manual) Lymphocytes % (Manual) Nucleated RBC % Seg Neutrophils # Seg Neutrophils # Man Lymphocytes # (Manual) PT INR D-Dimer ABG pH ABG pO2 ABG HCO3 ABG O2 Saturation ABG Base Excess ABG Hemoglobin Oxyhemoglobin Sodium 135 L D Potassium Chloride Carbon Dioxide BUN Creatinine Glucose 250 H POC Glucose 224 H 213 H Hemoglobin A1c Lactic Acid Calcium Magnesium Ferritin AST ALT Alkaline Phosphatase Lactate Dehydrogenase C-Reactive Protein Total Protein Albumin Vancomycin Trough Random Vancomycin Miscellaneous Test 01/18/20 01/18/20 01/18/20 12:47 16:56 22:03 WBC RBC Hgb Hct MCV MCH RDW Lymph % (Auto) Lymph # Seg Neutrophils % Seg Neuts % (Manual) Lymphocytes % (Manual) Nucleated RBC % Seg Neutrophils # Seg Neutrophils # Man Lymphocytes # (Manual) PT INR D-Dimer ABG pH ABG pO2 ABG HCO3 ABG O2 Saturation ABG Base Excess ABG Hemoglobin Oxyhemoglobin Sodium Potassium Chloride Carbon Dioxide BUN Creatinine Glucose POC Glucose 270 H 239 H Hemoglobin A1c 11.6 H Lactic Acid Calcium Magnesium Ferritin AST ALT Alkaline Phosphatase Lactate Dehydrogenase C-Reactive Protein Total Protein Albumin Vancomycin Trough Random Vancomycin Miscellaneous Test 01/19/20 01/19/20 01/19/20 06:15 11:48 13:09 WBC RBC Hgb Hct MCV MCH 26 L RDW Lymph % (Auto) Lymph # Seg Neutrophils % Seg Neuts % (Manual) Lymphocytes % (Manual) Nucleated RBC % Seg Neutrophils # Seg Neutrophils # Man Lymphocytes # (Manual) PT INR D-Dimer ABG pH ABG pO2 ABG HCO3 ABG O2 Saturation ABG Base Excess ABG Hemoglobin Oxyhemoglobin Sodium Potassium Chloride Carbon Dioxide BUN Creatinine Glucose POC Glucose 248 H 268 H Hemoglobin A1c Lactic Acid Calcium Magnesium Ferritin AST ALT Alkaline Phosphatase Lactate Dehydrogenase C-Reactive Protein Total Protein Albumin Vancomycin Trough Random Vancomycin Miscellaneous Test 01/19/20 01/19/20 01/20/20 17:44 21:09 09:03 WBC RBC Hgb Hct MCV MCH RDW Lymph % (Auto) Lymph # Seg Neutrophils % Seg Neuts % (Manual) Lymphocytes % (Manual) Nucleated RBC % Seg Neutrophils # Seg Neutrophils # Man Lymphocytes # (Manual) PT INR D-Dimer ABG pH ABG pO2 ABG HCO3 ABG O2 Saturation ABG Base Excess ABG Hemoglobin Oxyhemoglobin Sodium Potassium Chloride Carbon Dioxide BUN Creatinine Glucose POC Glucose 214 H 261 H 241 H Hemoglobin A1c Lactic Acid Calcium Magnesium Ferritin AST ALT Alkaline Phosphatase Lactate Dehydrogenase C-Reactive Protein Total Protein Albumin Vancomycin Trough Random Vancomycin Miscellaneous Test 01/20/20 01/20/20 01/20/20 12:10 17:00 19:43 WBC RBC Hgb Hct MCV MCH RDW Lymph % (Auto) Lymph # Seg Neutrophils % Seg Neuts % (Manual) Lymphocytes % (Manual) Nucleated RBC % Seg Neutrophils # Seg Neutrophils # Man Lymphocytes # (Manual) PT INR D-Dimer ABG pH ABG pO2 ABG HCO3 ABG O2 Saturation ABG Base Excess ABG Hemoglobin Oxyhemoglobin Sodium Potassium Chloride Carbon Dioxide BUN Creatinine Glucose POC Glucose 284 H 272 H Hemoglobin A1c Lactic Acid Calcium Magnesium Ferritin AST ALT Alkaline Phosphatase Lactate Dehydrogenase C-Reactive Protein Total Protein Albumin Vancomycin Trough 4.0 L Random Vancomycin Miscellaneous Test 01/20/20 01/21/20 01/21/20 22:39 09:29 11:41 WBC RBC Hgb Hct MCV MCH 26 L RDW Lymph % (Auto) Lymph # Seg Neutrophils % Seg Neuts % (Manual) Lymphocytes % (Manual) Nucleated RBC % Seg Neutrophils # Seg Neutrophils # Man Lymphocytes # (Manual) PT INR D-Dimer ABG pH ABG pO2 ABG HCO3 ABG O2 Saturation ABG Base Excess ABG Hemoglobin Oxyhemoglobin Sodium Potassium Chloride Carbon Dioxide BUN Creatinine Glucose POC Glucose 248 H 238 H Hemoglobin A1c Lactic Acid Calcium Magnesium Ferritin AST ALT Alkaline Phosphatase Lactate Dehydrogenase C-Reactive Protein Total Protein Albumin Vancomycin Trough Random Vancomycin Miscellaneous Test 01/21/20 01/21/20 01/21/20 11:41 12:27 16:55 WBC RBC Hgb Hct MCV MCH RDW Lymph % (Auto) Lymph # Seg Neutrophils % Seg Neuts % (Manual) Lymphocytes % (Manual) Nucleated RBC % Seg Neutrophils # Seg Neutrophils # Man Lymphocytes # (Manual) PT INR D-Dimer ABG pH ABG pO2 ABG HCO3 ABG O2 Saturation ABG Base Excess ABG Hemoglobin Oxyhemoglobin Sodium 132 L Potassium 3.5 L Chloride 97.0 L Carbon Dioxide 19 L BUN Creatinine Glucose 274 H POC Glucose 264 H 261 H Hemoglobin A1c Lactic Acid Calcium Magnesium Ferritin AST ALT Alkaline Phosphatase Lactate Dehydrogenase C-Reactive Protein Total Protein Albumin Vancomycin Trough Random Vancomycin Miscellaneous Test 01/21/20 01/22/20 01/22/20 22:39 09:05 12:57 WBC RBC Hgb Hct MCV MCH RDW Lymph % (Auto) Lymph # Seg Neutrophils % Seg Neuts % (Manual) Lymphocytes % (Manual) Nucleated RBC % Seg Neutrophils # Seg Neutrophils # Man Lymphocytes # (Manual) PT INR D-Dimer ABG pH ABG pO2 ABG HCO3 ABG O2 Saturation ABG Base Excess ABG Hemoglobin Oxyhemoglobin Sodium Potassium Chloride Carbon Dioxide BUN Creatinine Glucose POC Glucose 243 H 258 H 252 H Hemoglobin A1c Lactic Acid Calcium Magnesium Ferritin AST ALT Alkaline Phosphatase Lactate Dehydrogenase C-Reactive Protein Total Protein Albumin Vancomycin Trough Random Vancomycin Miscellaneous Test 01/22/20 01/22/20 01/23/20 17:14 21:30 09:03 WBC RBC Hgb Hct MCV MCH RDW Lymph % (Auto) Lymph # Seg Neutrophils % Seg Neuts % (Manual) Lymphocytes % (Manual) Nucleated RBC % Seg Neutrophils # Seg Neutrophils # Man Lymphocytes # (Manual) PT INR D-Dimer ABG pH ABG pO2 ABG HCO3 ABG O2 Saturation ABG Base Excess ABG Hemoglobin Oxyhemoglobin Sodium Potassium Chloride Carbon Dioxide BUN Creatinine Glucose POC Glucose 306 H 217 H 156 H Hemoglobin A1c Lactic Acid Calcium Magnesium Ferritin AST ALT Alkaline Phosphatase Lactate Dehydrogenase C-Reactive Protein Total Protein Albumin Vancomycin Trough Random Vancomycin Miscellaneous Test 01/23/20 01/23/20 01/23/20 10:36 11:12 17:11 WBC RBC Hgb Hct MCV MCH RDW Lymph % (Auto) Lymph # Seg Neutrophils % Seg Neuts % (Manual) Lymphocytes % (Manual) Nucleated RBC % Seg Neutrophils # Seg Neutrophils # Man Lymphocytes # (Manual) PT INR D-Dimer ABG pH ABG pO2 ABG HCO3 ABG O2 Saturation ABG Base Excess ABG Hemoglobin Oxyhemoglobin Sodium Potassium 3.0 L Chloride Carbon Dioxide 21 L BUN Creatinine Glucose 266 H POC Glucose 244 H 238 H Hemoglobin A1c Lactic Acid Calcium 8.3 L Magnesium Ferritin AST ALT Alkaline Phosphatase Lactate Dehydrogenase C-Reactive Protein Total Protein Albumin Vancomycin Trough Random Vancomycin Miscellaneous Test 01/23/20 01/24/20 01/24/20 22:57 06:03 12:12 WBC RBC Hgb Hct MCV MCH RDW Lymph % (Auto) Lymph # Seg Neutrophils % Seg Neuts % (Manual) Lymphocytes % (Manual) Nucleated RBC % Seg Neutrophils # Seg Neutrophils # Man Lymphocytes # (Manual) PT INR D-Dimer ABG pH ABG pO2 ABG HCO3 ABG O2 Saturation ABG Base Excess ABG Hemoglobin Oxyhemoglobin Sodium Potassium 3.2 L Chloride Carbon Dioxide 19 L BUN Creatinine Glucose 231 H POC Glucose 228 H 210 H Hemoglobin A1c Lactic Acid Calcium 8.2 L Magnesium Ferritin AST ALT Alkaline Phosphatase Lactate Dehydrogenase C-Reactive Protein Total Protein Albumin Vancomycin Trough Random Vancomycin Miscellaneous Test 01/24/20 01/24/20 01/24/20 12:50 19:01 21:49 WBC RBC Hgb Hct MCV MCH RDW Lymph % (Auto) Lymph # Seg Neutrophils % Seg Neuts % (Manual) Lymphocytes % (Manual) Nucleated RBC % Seg Neutrophils # Seg Neutrophils # Man Lymphocytes # (Manual) PT INR D-Dimer ABG pH 7.485 H ABG pO2 63.4 L ABG HCO3 ABG O2 Saturation ABG Base Excess ABG Hemoglobin 5.0 L Oxyhemoglobin Sodium Potassium Chloride Carbon Dioxide BUN Creatinine Glucose POC Glucose 183 H 193 H Hemoglobin A1c Lactic Acid Calcium Magnesium Ferritin AST ALT Alkaline Phosphatase Lactate Dehydrogenase C-Reactive Protein Total Protein Albumin Vancomycin Trough Random Vancomycin Miscellaneous Test 01/25/20 01/25/20 01/25/20 09:13 16:58 22:23 WBC RBC Hgb Hct MCV MCH RDW Lymph % (Auto) Lymph # Seg Neutrophils % Seg Neuts % (Manual) Lymphocytes % (Manual) Nucleated RBC % Seg Neutrophils # Seg Neutrophils # Man Lymphocytes # (Manual) PT INR D-Dimer ABG pH ABG pO2 ABG HCO3 ABG O2 Saturation ABG Base Excess ABG Hemoglobin Oxyhemoglobin Sodium Potassium Chloride Carbon Dioxide BUN Creatinine Glucose POC Glucose 196 H 231 H 159 H Hemoglobin A1c Lactic Acid Calcium Magnesium Ferritin AST ALT Alkaline Phosphatase Lactate Dehydrogenase C-Reactive Protein Total Protein Albumin Vancomycin Trough Random Vancomycin Miscellaneous Test 01/26/20 01/26/20 01/26/20 05:40 05:40 05:40 WBC 16.4 H RBC Hgb Hct MCV MCH 26 L RDW 12.9 L Lymph % (Auto) Lymph # Seg Neutrophils % Seg Neuts % (Manual) 90.0 H Lymphocytes % (Manual) 1.0 L Nucleated RBC % 1.0 H Seg Neutrophils # Seg Neutrophils # Man 14.8 H Lymphocytes # (Manual) 0.2 L PT INR D-Dimer 2624.11 H ABG pH ABG pO2 ABG HCO3 ABG O2 Saturation ABG Base Excess ABG Hemoglobin Oxyhemoglobin Sodium 135 L Potassium 2.7 L* Chloride Carbon Dioxide 21 L BUN Creatinine Glucose 132 H POC Glucose Hemoglobin A1c Lactic Acid Calcium 8.0 L Magnesium Ferritin AST ALT Alkaline Phosphatase Lactate Dehydrogenase C-Reactive Protein Total Protein Albumin Vancomycin Trough Random Vancomycin Miscellaneous Test 01/26/20 01/26/20 01/26/20 05:40 05:40 08:58 WBC RBC Hgb Hct MCV MCH RDW Lymph % (Auto) Lymph # Seg Neutrophils % Seg Neuts % (Manual) Lymphocytes % (Manual) Nucleated RBC % Seg Neutrophils # Seg Neutrophils # Man Lymphocytes # (Manual) PT INR D-Dimer ABG pH ABG pO2 ABG HCO3 ABG O2 Saturation ABG Base Excess ABG Hemoglobin Oxyhemoglobin Sodium Potassium Chloride Carbon Dioxide BUN Creatinine Glucose POC Glucose 131 H Hemoglobin A1c Lactic Acid Calcium Magnesium Ferritin 2758.0 H AST ALT Alkaline Phosphatase Lactate Dehydrogenase C-Reactive Protein 26.90 H Total Protein Albumin Vancomycin Trough Random Vancomycin Miscellaneous Test 01/26/20 01/26/20 01/26/20 13:00 16:30 21:22 WBC RBC Hgb Hct MCV MCH RDW Lymph % (Auto) Lymph # Seg Neutrophils % Seg Neuts % (Manual) Lymphocytes % (Manual) Nucleated RBC % Seg Neutrophils # Seg Neutrophils # Man Lymphocytes # (Manual) PT INR D-Dimer ABG pH ABG pO2 ABG HCO3 ABG O2 Saturation ABG Base Excess ABG Hemoglobin Oxyhemoglobin Sodium Potassium Chloride Carbon Dioxide BUN Creatinine Glucose POC Glucose 136 H 146 H 139 H Hemoglobin A1c Lactic Acid Calcium Magnesium Ferritin AST ALT Alkaline Phosphatase Lactate Dehydrogenase C-Reactive Protein Total Protein Albumin Vancomycin Trough Random Vancomycin Miscellaneous Test 01/27/20 01/27/20 01/27/20 05:14 07:37 12:05 WBC RBC Hgb Hct MCV MCH RDW Lymph % (Auto) Lymph # Seg Neutrophils % Seg Neuts % (Manual) Lymphocytes % (Manual) Nucleated RBC % Seg Neutrophils # Seg Neutrophils # Man Lymphocytes # (Manual) PT INR D-Dimer ABG pH ABG pO2 ABG HCO3 ABG O2 Saturation ABG Base Excess ABG Hemoglobin Oxyhemoglobin Sodium 135 L Potassium 3.4 L D Chloride Carbon Dioxide 17 L BUN 24 H Creatinine 1.4 H D Glucose 143 H POC Glucose 133 H 141 H Hemoglobin A1c Lactic Acid Calcium 7.6 L Magnesium Ferritin AST ALT Alkaline Phosphatase Lactate Dehydrogenase C-Reactive Protein Total Protein Albumin Vancomycin Trough Random Vancomycin Miscellaneous Test 01/27/20 01/27/20 01/27/20 17:37 22:14 23:53 WBC RBC Hgb Hct MCV MCH RDW Lymph % (Auto) Lymph # Seg Neutrophils % Seg Neuts % (Manual) Lymphocytes % (Manual) Nucleated RBC % Seg Neutrophils # Seg Neutrophils # Man Lymphocytes # (Manual) PT INR D-Dimer 2675.43 H ABG pH ABG pO2 ABG HCO3 ABG O2 Saturation ABG Base Excess ABG Hemoglobin Oxyhemoglobin Sodium Potassium Chloride Carbon Dioxide BUN Creatinine Glucose POC Glucose 153 H 124 H Hemoglobin A1c Lactic Acid Calcium Magnesium Ferritin AST ALT Alkaline Phosphatase Lactate Dehydrogenase C-Reactive Protein Total Protein Albumin Vancomycin Trough Random Vancomycin Miscellaneous Test 01/27/20 01/27/20 01/28/20 23:53 23:53 08:36 WBC RBC Hgb Hct MCV MCH RDW Lymph % (Auto) Lymph # Seg Neutrophils % Seg Neuts % (Manual) Lymphocytes % (Manual) Nucleated RBC % Seg Neutrophils # Seg Neutrophils # Man Lymphocytes # (Manual) PT INR D-Dimer ABG pH ABG pO2 ABG HCO3 ABG O2 Saturation ABG Base Excess ABG Hemoglobin Oxyhemoglobin Sodium Potassium Chloride Carbon Dioxide BUN Creatinine Glucose POC Glucose 165 H Hemoglobin A1c Lactic Acid Calcium Magnesium Ferritin 3523.0 H AST ALT Alkaline Phosphatase Lactate Dehydrogenase 1132 H C-Reactive Protein 15.60 H Total Protein Albumin Vancomycin Trough Random Vancomycin Miscellaneous Test 01/28/20 01/28/20 01/28/20 10:00 10:00 10:00 WBC RBC Hgb Hct MCV MCH RDW Lymph % (Auto) Lymph # Seg Neutrophils % Seg Neuts % (Manual) Lymphocytes % (Manual) Nucleated RBC % Seg Neutrophils # Seg Neutrophils # Man Lymphocytes # (Manual) PT INR D-Dimer ABG pH ABG pO2 ABG HCO3 ABG O2 Saturation ABG Base Excess ABG Hemoglobin Oxyhemoglobin Sodium 131 L Potassium 3.5 L Chloride Carbon Dioxide 16 L BUN 51 H Creatinine 3.5 H D Glucose 180 H POC Glucose Hemoglobin A1c Lactic Acid Calcium 7.5 L Magnesium Ferritin AST ALT Alkaline Phosphatase Lactate Dehydrogenase C-Reactive Protein Total Protein Albumin Vancomycin Trough Random Vancomycin 65.8 H Miscellaneous Test Flexitest 1 H 01/28/20 01/28/20 01/28/20 12:42 17:27 22:06 WBC RBC Hgb Hct MCV MCH RDW Lymph % (Auto) Lymph # Seg Neutrophils % Seg Neuts % (Manual) Lymphocytes % (Manual) Nucleated RBC % Seg Neutrophils # Seg Neutrophils # Man Lymphocytes # (Manual) PT INR D-Dimer ABG pH ABG pO2 ABG HCO3 ABG O2 Saturation ABG Base Excess ABG Hemoglobin Oxyhemoglobin Sodium Potassium Chloride Carbon Dioxide BUN Creatinine Glucose POC Glucose 188 H 161 H 158 H Hemoglobin A1c Lactic Acid Calcium Magnesium Ferritin AST ALT Alkaline Phosphatase Lactate Dehydrogenase C-Reactive Protein Total Protein Albumin Vancomycin Trough Random Vancomycin Miscellaneous Test 01/29/20 01/29/20 01/29/20 07:29 07:29 08:20 WBC 17.0 H RBC Hgb 9.6 L Hct 29.5 L MCV MCH 26 L RDW Lymph % (Auto) Lymph # Seg Neutrophils % Seg Neuts % (Manual) Lymphocytes % (Manual) Nucleated RBC % Seg Neutrophils # Seg Neutrophils # Man Lymphocytes # (Manual) PT INR D-Dimer ABG pH ABG pO2 ABG HCO3 ABG O2 Saturation ABG Base Excess ABG Hemoglobin Oxyhemoglobin Sodium 133 L Potassium Chloride Carbon Dioxide 15 L BUN 69 H Creatinine 4.1 H Glucose 161 H POC Glucose 170 H Hemoglobin A1c Lactic Acid Calcium 7.6 L Magnesium Ferritin AST ALT Alkaline Phosphatase Lactate Dehydrogenase C-Reactive Protein Total Protein Albumin Vancomycin Trough Random Vancomycin Miscellaneous Test 01/29/20 01/29/20 01/29/20 11:54 11:54 11:54 WBC RBC Hgb Hct MCV MCH RDW Lymph % (Auto) Lymph # Seg Neutrophils % Seg Neuts % (Manual) Lymphocytes % (Manual) Nucleated RBC % Seg Neutrophils # Seg Neutrophils # Man Lymphocytes # (Manual) PT INR D-Dimer 1499 H ABG pH ABG pO2 ABG HCO3 ABG O2 Saturation ABG Base Excess ABG Hemoglobin Oxyhemoglobin Sodium Potassium Chloride Carbon Dioxide BUN Creatinine Glucose POC Glucose Hemoglobin A1c Lactic Acid Calcium Magnesium Ferritin > 2000.0 H AST ALT Alkaline Phosphatase Lactate Dehydrogenase 946 H C-Reactive Protein 13.30 H Total Protein Albumin Vancomycin Trough Random Vancomycin Miscellaneous Test 01/29/20 01/29/20 01/29/20 12:55 16:19 22:13 WBC RBC Hgb Hct MCV MCH RDW Lymph % (Auto) Lymph # Seg Neutrophils % Seg Neuts % (Manual) Lymphocytes % (Manual) Nucleated RBC % Seg Neutrophils # Seg Neutrophils # Man Lymphocytes # (Manual) PT INR D-Dimer ABG pH ABG pO2 ABG HCO3 ABG O2 Saturation ABG Base Excess ABG Hemoglobin Oxyhemoglobin Sodium Potassium Chloride Carbon Dioxide BUN Creatinine Glucose POC Glucose 142 H 146 H 142 H Hemoglobin A1c Lactic Acid Calcium Magnesium Ferritin AST ALT Alkaline Phosphatase Lactate Dehydrogenase C-Reactive Protein Total Protein Albumin Vancomycin Trough Random Vancomycin Miscellaneous Test 01/30/20 01/30/20 01/30/20 05:19 05:19 08:04 WBC RBC Hgb Hct MCV MCH RDW Lymph % (Auto) Lymph # Seg Neutrophils % Seg Neuts % (Manual) Lymphocytes % (Manual) Nucleated RBC % Seg Neutrophils # Seg Neutrophils # Man Lymphocytes # (Manual) PT INR D-Dimer ABG pH ABG pO2 ABG HCO3 ABG O2 Saturation ABG Base Excess ABG Hemoglobin Oxyhemoglobin Sodium 134 L Potassium Chloride Carbon Dioxide 14 L BUN 87 H Creatinine 4.4 H Glucose 172 H POC Glucose 153 H Hemoglobin A1c Lactic Acid Calcium 7.6 L Magnesium Ferritin AST 152 H ALT 124 H Alkaline Phosphatase Lactate Dehydrogenase C-Reactive Protein Total Protein 5.5 L Albumin 1.8 L Vancomycin Trough 45.4 H Random Vancomycin Miscellaneous Test 01/30/20 01/30/20 01/30/20 12:21 16:51 22:54 WBC RBC Hgb Hct MCV MCH RDW Lymph % (Auto) Lymph # Seg Neutrophils % Seg Neuts % (Manual) Lymphocytes % (Manual) Nucleated RBC % Seg Neutrophils # Seg Neutrophils # Man Lymphocytes # (Manual) PT INR D-Dimer ABG pH ABG pO2 ABG HCO3 ABG O2 Saturation ABG Base Excess ABG Hemoglobin Oxyhemoglobin Sodium Potassium Chloride Carbon Dioxide BUN Creatinine Glucose POC Glucose 147 H 119 H 129 H Hemoglobin A1c Lactic Acid Calcium Magnesium Ferritin AST ALT Alkaline Phosphatase Lactate Dehydrogenase C-Reactive Protein Total Protein Albumin Vancomycin Trough Random Vancomycin Miscellaneous Test 01/31/20 01/31/20 01/31/20 03:49 03:49 03:49 WBC RBC Hgb Hct MCV MCH RDW Lymph % (Auto) Lymph # Seg Neutrophils % Seg Neuts % (Manual) Lymphocytes % (Manual) Nucleated RBC % Seg Neutrophils # Seg Neutrophils # Man Lymphocytes # (Manual) PT INR D-Dimer 801.37 H ABG pH ABG pO2 ABG HCO3 ABG O2 Saturation ABG Base Excess ABG Hemoglobin Oxyhemoglobin Sodium 134 L Potassium Chloride Carbon Dioxide 13 L BUN 97 H Creatinine 4.8 H Glucose 123 H POC Glucose Hemoglobin A1c Lactic Acid Calcium 7.6 L Magnesium Ferritin 3101.0 H AST 112 H ALT 112 H Alkaline Phosphatase 145 H Lactate Dehydrogenase 896 H C-Reactive Protein 11.10 H Total Protein 5.5 L Albumin 1.7 L Vancomycin Trough Random Vancomycin Miscellaneous Test 01/31/20 01/31/20 01/31/20 03:49 08:00 11:48 WBC 16.1 H RBC Hgb Hct MCV MCH 25 L RDW Lymph % (Auto) Lymph # Seg Neutrophils % Seg Neuts % (Manual) Lymphocytes % (Manual) Nucleated RBC % Seg Neutrophils # Seg Neutrophils # Man Lymphocytes # (Manual) PT INR D-Dimer ABG pH ABG pO2 ABG HCO3 ABG O2 Saturation ABG Base Excess ABG Hemoglobin Oxyhemoglobin Sodium Potassium Chloride Carbon Dioxide BUN Creatinine Glucose POC Glucose 133 H 136 H Hemoglobin A1c Lactic Acid Calcium Magnesium Ferritin AST ALT Alkaline Phosphatase Lactate Dehydrogenase C-Reactive Protein Total Protein Albumin Vancomycin Trough Random Vancomycin Miscellaneous Test 01/31/20 01/31/20 01/31/20 16:14 21:37 22:35 WBC RBC Hgb Hct MCV MCH RDW Lymph % (Auto) Lymph # Seg Neutrophils % Seg Neuts % (Manual) Lymphocytes % (Manual) Nucleated RBC % Seg Neutrophils # Seg Neutrophils # Man Lymphocytes # (Manual) PT INR D-Dimer ABG pH 7.226 L ABG pO2 77.9 L ABG HCO3 15.2 L ABG O2 Saturation 93.5 L ABG Base Excess -11.6 L ABG Hemoglobin Oxyhemoglobin 91.5 L Sodium Potassium Chloride Carbon Dioxide BUN Creatinine Glucose POC Glucose 151 H 179 H Hemoglobin A1c Lactic Acid Calcium Magnesium Ferritin AST ALT Alkaline Phosphatase Lactate Dehydrogenase C-Reactive Protein Total Protein Albumin Vancomycin Trough Random Vancomycin Miscellaneous Test 02/01/20 02/01/20 02/01/20 03:49 03:49 04:30 WBC 19.3 H RBC 3.53 L Hgb 9.0 L Hct 28.1 L MCV MCH 26 L RDW Lymph % (Auto) Lymph # Seg Neutrophils % Seg Neuts % (Manual) Lymphocytes % (Manual) Nucleated RBC % Seg Neutrophils # Seg Neutrophils # Man Lymphocytes # (Manual) PT INR D-Dimer ABG pH 7.290 L ABG pO2 120.0 H ABG HCO3 14.2 L ABG O2 Saturation ABG Base Excess -11.2 L ABG Hemoglobin 9.3 L Oxyhemoglobin Sodium 135 L Potassium Chloride Carbon Dioxide 13 L BUN 79 H Creatinine 4.1 H Glucose 198 H POC Glucose Hemoglobin A1c Lactic Acid Calcium 7.0 L Magnesium Ferritin AST ALT Alkaline Phosphatase Lactate Dehydrogenase C-Reactive Protein Total Protein Albumin Vancomycin Trough Random Vancomycin Miscellaneous Test 02/01/20 02/01/20 02/02/20 08:13 11:29 00:05 WBC RBC Hgb Hct MCV MCH RDW Lymph % (Auto) Lymph # Seg Neutrophils % Seg Neuts % (Manual) Lymphocytes % (Manual) Nucleated RBC % Seg Neutrophils # Seg Neutrophils # Man Lymphocytes # (Manual) PT INR D-Dimer ABG pH ABG pO2 ABG HCO3 ABG O2 Saturation ABG Base Excess ABG Hemoglobin Oxyhemoglobin Sodium Potassium Chloride Carbon Dioxide BUN Creatinine Glucose POC Glucose 153 H 181 H 214 H Hemoglobin A1c Lactic Acid Calcium Magnesium Ferritin AST ALT Alkaline Phosphatase Lactate Dehydrogenase C-Reactive Protein Total Protein Albumin Vancomycin Trough Random Vancomycin Miscellaneous Test 02/02/20 02/02/20 02/02/20 04:17 04:30 04:30 WBC RBC Hgb Hct MCV MCH RDW Lymph % (Auto) Lymph # Seg Neutrophils % Seg Neuts % (Manual) Lymphocytes % (Manual) Nucleated RBC % Seg Neutrophils # Seg Neutrophils # Man Lymphocytes # (Manual) PT INR D-Dimer 795.93 H ABG pH ABG pO2 ABG HCO3 ABG O2 Saturation ABG Base Excess -3.0 L ABG Hemoglobin 8.5 L Oxyhemoglobin Sodium Potassium Chloride Carbon Dioxide BUN Creatinine Glucose POC Glucose Hemoglobin A1c Lactic Acid Calcium Magnesium Ferritin 1978.0 H AST ALT Alkaline Phosphatase Lactate Dehydrogenase C-Reactive Protein Total Protein Albumin Vancomycin Trough Random Vancomycin Miscellaneous Test 02/02/20 02/02/20 02/02/20 04:30 04:30 05:34 WBC 17.3 H RBC 3.24 L Hgb 8.4 L Hct 24.9 L MCV 77 L MCH 26 L RDW Lymph % (Auto) Lymph # Seg Neutrophils % Seg Neuts % (Manual) Lymphocytes % (Manual) Nucleated RBC % Seg Neutrophils # Seg Neutrophils # Man Lymphocytes # (Manual) PT INR D-Dimer ABG pH ABG pO2 ABG HCO3 ABG O2 Saturation ABG Base Excess ABG Hemoglobin Oxyhemoglobin Sodium Potassium Chloride Carbon Dioxide 17 L BUN 61 H Creatinine 4.1 H Glucose 244 H POC Glucose 274 H Hemoglobin A1c Lactic Acid Calcium 7.2 L Magnesium Ferritin AST ALT Alkaline Phosphatase Lactate Dehydrogenase 841 H C-Reactive Protein 11.50 H Total Protein Albumin Vancomycin Trough Random Vancomycin Miscellaneous Test 02/02/20 02/02/20 02/02/20 12:26 18:06 23:37 WBC RBC Hgb Hct MCV MCH RDW Lymph % (Auto) Lymph # Seg Neutrophils % Seg Neuts % (Manual) Lymphocytes % (Manual) Nucleated RBC % Seg Neutrophils # Seg Neutrophils # Man Lymphocytes # (Manual) PT INR D-Dimer ABG pH ABG pO2 ABG HCO3 ABG O2 Saturation ABG Base Excess ABG Hemoglobin Oxyhemoglobin Sodium Potassium Chloride Carbon Dioxide BUN Creatinine Glucose POC Glucose 254 H 285 H 239 H Hemoglobin A1c Lactic Acid Calcium Magnesium Ferritin AST ALT Alkaline Phosphatase Lactate Dehydrogenase C-Reactive Protein Total Protein Albumin Vancomycin Trough Random Vancomycin Miscellaneous Test 02/03/20 02/03/20 02/03/20 04:40 04:56 10:41 WBC RBC Hgb Hct MCV MCH RDW Lymph % (Auto) Lymph # Seg Neutrophils % Seg Neuts % (Manual) Lymphocytes % (Manual) Nucleated RBC % Seg Neutrophils # Seg Neutrophils # Man Lymphocytes # (Manual) PT INR D-Dimer ABG pH 7.520 H ABG pO2 73.8 L 92.5 H ABG HCO3 ABG O2 Saturation ABG Base Excess ABG Hemoglobin 8.6 L 7.9 L Oxyhemoglobin Sodium Potassium Chloride Carbon Dioxide BUN Creatinine Glucose POC Glucose 227 H Hemoglobin A1c Lactic Acid Calcium Magnesium Ferritin AST ALT Alkaline Phosphatase Lactate Dehydrogenase C-Reactive Protein Total Protein Albumin Vancomycin Trough Random Vancomycin Miscellaneous Test 02/03/20 02/03/20 02/03/20 12:09 17:23 23:41 WBC RBC Hgb Hct MCV MCH RDW Lymph % (Auto) Lymph # Seg Neutrophils % Seg Neuts % (Manual) Lymphocytes % (Manual) Nucleated RBC % Seg Neutrophils # Seg Neutrophils # Man Lymphocytes # (Manual) PT INR D-Dimer ABG pH ABG pO2 ABG HCO3 ABG O2 Saturation ABG Base Excess ABG Hemoglobin Oxyhemoglobin Sodium Potassium Chloride Carbon Dioxide BUN Creatinine Glucose POC Glucose 268 H 255 H 239 H Hemoglobin A1c Lactic Acid Calcium Magnesium Ferritin AST ALT Alkaline Phosphatase Lactate Dehydrogenase C-Reactive Protein Total Protein Albumin Vancomycin Trough Random Vancomycin Miscellaneous Test 02/04/20 02/04/20 02/04/20 04:31 04:42 04:42 WBC RBC Hgb Hct MCV MCH RDW Lymph % (Auto) Lymph # Seg Neutrophils % Seg Neuts % (Manual) Lymphocytes % (Manual) Nucleated RBC % Seg Neutrophils # Seg Neutrophils # Man Lymphocytes # (Manual) PT INR D-Dimer 694.19 H ABG pH ABG pO2 ABG HCO3 ABG O2 Saturation ABG Base Excess ABG Hemoglobin Oxyhemoglobin Sodium Potassium Chloride Carbon Dioxide BUN Creatinine Glucose POC Glucose 216 H Hemoglobin A1c Lactic Acid Calcium Magnesium Ferritin 1660.0 H AST ALT Alkaline Phosphatase Lactate Dehydrogenase C-Reactive Protein Total Protein Albumin Vancomycin Trough Random Vancomycin Miscellaneous Test 02/04/20 02/04/20 02/04/20 04:42 04:42 12:03 WBC 13.7 H RBC 2.92 L Hgb 7.4 L Hct 23.0 L MCV MCH 25 L RDW Lymph % (Auto) Lymph # Seg Neutrophils % Seg Neuts % (Manual) Lymphocytes % (Manual) Nucleated RBC % Seg Neutrophils # Seg Neutrophils # Man Lymphocytes # (Manual) PT INR D-Dimer ABG pH ABG pO2 ABG HCO3 ABG O2 Saturation ABG Base Excess ABG Hemoglobin Oxyhemoglobin Sodium Potassium Chloride Carbon Dioxide 17 L BUN 80 H Creatinine 5.8 H Glucose 209 H POC Glucose 248 H Hemoglobin A1c Lactic Acid Calcium 8.3 L D Magnesium Ferritin AST ALT Alkaline Phosphatase Lactate Dehydrogenase 972 H C-Reactive Protein 6.20 H Total Protein Albumin Vancomycin Trough Random Vancomycin Miscellaneous Test 02/04/20 02/04/20 02/04/20 17:42 23:48 Unknown WBC RBC Hgb Hct MCV MCH RDW Lymph % (Auto) Lymph # Seg Neutrophils % Seg Neuts % (Manual) Lymphocytes % (Manual) Nucleated RBC % Seg Neutrophils # Seg Neutrophils # Man Lymphocytes # (Manual) PT INR D-Dimer ABG pH 7.484 H ABG pO2 104.8 H ABG HCO3 ABG O2 Saturation ABG Base Excess ABG Hemoglobin 9.5 L Oxyhemoglobin Sodium Potassium Chloride Carbon Dioxide BUN Creatinine Glucose POC Glucose 209 H 166 H Hemoglobin A1c Lactic Acid Calcium Magnesium Ferritin AST ALT Alkaline Phosphatase Lactate Dehydrogenase C-Reactive Protein Total Protein Albumin Vancomycin Trough Random Vancomycin Miscellaneous Test 02/05/20 02/05/20 02/05/20 03:51 03:51 05:43 WBC 13.9 H RBC 2.98 L Hgb 7.6 L Hct 23.4 L MCV MCH 26 L RDW Lymph % (Auto) Lymph # Seg Neutrophils % Seg Neuts % (Manual) Lymphocytes % (Manual) Nucleated RBC % Seg Neutrophils # Seg Neutrophils # Man Lymphocytes # (Manual) PT INR D-Dimer ABG pH ABG pO2 ABG HCO3 ABG O2 Saturation ABG Base Excess ABG Hemoglobin Oxyhemoglobin Sodium Potassium Chloride Carbon Dioxide 19 L BUN 65 H Creatinine 5.9 H Glucose 167 H POC Glucose 148 H Hemoglobin A1c Lactic Acid Calcium 8.3 L Magnesium Ferritin AST ALT Alkaline Phosphatase Lactate Dehydrogenase C-Reactive Protein Total Protein Albumin Vancomycin Trough Random Vancomycin Miscellaneous Test 02/05/20 02/05/20 02/05/20 12:34 18:55 23:48 WBC RBC Hgb Hct MCV MCH RDW Lymph % (Auto) Lymph # Seg Neutrophils % Seg Neuts % (Manual) Lymphocytes % (Manual) Nucleated RBC % Seg Neutrophils # Seg Neutrophils # Man Lymphocytes # (Manual) PT INR D-Dimer ABG pH ABG pO2 ABG HCO3 ABG O2 Saturation ABG Base Excess ABG Hemoglobin Oxyhemoglobin Sodium Potassium Chloride Carbon Dioxide BUN Creatinine Glucose POC Glucose 267 H 166 H 241 H Hemoglobin A1c Lactic Acid Calcium Magnesium Ferritin AST ALT Alkaline Phosphatase Lactate Dehydrogenase C-Reactive Protein Total Protein Albumin Vancomycin Trough Random Vancomycin Miscellaneous Test 02/05/20 02/06/20 02/06/20 Unknown 03:38 03:38 WBC RBC Hgb Hct MCV MCH RDW Lymph % (Auto) Lymph # Seg Neutrophils % Seg Neuts % (Manual) Lymphocytes % (Manual) Nucleated RBC % Seg Neutrophils # Seg Neutrophils # Man Lymphocytes # (Manual) PT INR D-Dimer 1067.61 H ABG pH 7.497 H ABG pO2 111.6 H ABG HCO3 ABG O2 Saturation ABG Base Excess ABG Hemoglobin 7.4 L Oxyhemoglobin Sodium Potassium Chloride Carbon Dioxide BUN Creatinine Glucose POC Glucose Hemoglobin A1c Lactic Acid Calcium Magnesium Ferritin 1277.0 H AST ALT Alkaline Phosphatase Lactate Dehydrogenase C-Reactive Protein Total Protein Albumin Vancomycin Trough Random Vancomycin Miscellaneous Test 02/06/20 02/06/20 02/06/20 03:38 03:38 06:04 WBC 13.8 H RBC 3.16 L Hgb 8.0 L Hct 25.7 L MCV MCH 25 L RDW Lymph % (Auto) Lymph # Seg Neutrophils % Seg Neuts % (Manual) Lymphocytes % (Manual) Nucleated RBC % Seg Neutrophils # Seg Neutrophils # Man Lymphocytes # (Manual) PT INR D-Dimer ABG pH ABG pO2 ABG HCO3 ABG O2 Saturation ABG Base Excess ABG Hemoglobin Oxyhemoglobin Sodium Potassium Chloride Carbon Dioxide 21 L BUN 66 H Creatinine 6.0 H Glucose 213 H POC Glucose 232 H Hemoglobin A1c Lactic Acid Calcium Magnesium Ferritin AST ALT Alkaline Phosphatase Lactate Dehydrogenase 48 L C-Reactive Protein Total Protein Albumin Vancomycin Trough Random Vancomycin Miscellaneous Test 02/06/20 02/06/20 02/06/20 11:54 17:34 22:20 WBC RBC Hgb Hct MCV MCH RDW Lymph % (Auto) Lymph # Seg Neutrophils % Seg Neuts % (Manual) Lymphocytes % (Manual) Nucleated RBC % Seg Neutrophils # Seg Neutrophils # Man Lymphocytes # (Manual) PT INR D-Dimer ABG pH ABG pO2 ABG HCO3 ABG O2 Saturation ABG Base Excess ABG Hemoglobin Oxyhemoglobin Sodium Potassium Chloride Carbon Dioxide BUN Creatinine Glucose POC Glucose 230 H 220 H 262 H Hemoglobin A1c Lactic Acid Calcium Magnesium Ferritin AST ALT Alkaline Phosphatase Lactate Dehydrogenase C-Reactive Protein Total Protein Albumin Vancomycin Trough Random Vancomycin Miscellaneous Test 02/07/20 02/07/20 02/07/20 05:05 05:05 05:24 WBC 15.0 H RBC 3.30 L Hgb 8.3 L Hct 26.6 L MCV MCH 25 L RDW Lymph % (Auto) Lymph # Seg Neutrophils % Seg Neuts % (Manual) Lymphocytes % (Manual) Nucleated RBC % Seg Neutrophils # Seg Neutrophils # Man Lymphocytes # (Manual) PT INR D-Dimer ABG pH ABG pO2 ABG HCO3 ABG O2 Saturation ABG Base Excess ABG Hemoglobin Oxyhemoglobin Sodium Potassium Chloride Carbon Dioxide BUN 63 H Creatinine 6.1 H Glucose 231 H POC Glucose 192 H Hemoglobin A1c Lactic Acid Calcium Magnesium Ferritin AST ALT Alkaline Phosphatase Lactate Dehydrogenase C-Reactive Protein Total Protein Albumin Vancomycin Trough Random Vancomycin Miscellaneous Test 02/07/20 02/07/20 02/07/20 12:07 16:45 22:44 WBC RBC Hgb Hct MCV MCH RDW Lymph % (Auto) Lymph # Seg Neutrophils % Seg Neuts % (Manual) Lymphocytes % (Manual) Nucleated RBC % Seg Neutrophils # Seg Neutrophils # Man Lymphocytes # (Manual) PT INR D-Dimer ABG pH ABG pO2 ABG HCO3 ABG O2 Saturation ABG Base Excess ABG Hemoglobin Oxyhemoglobin Sodium Potassium Chloride Carbon Dioxide BUN Creatinine Glucose POC Glucose 218 H 191 H 172 H Hemoglobin A1c Lactic Acid Calcium Magnesium Ferritin AST ALT Alkaline Phosphatase Lactate Dehydrogenase C-Reactive Protein Total Protein Albumin Vancomycin Trough Random Vancomycin Miscellaneous Test 02/08/20 02/08/20 02/08/20 04:57 04:57 04:57 WBC RBC Hgb Hct MCV MCH RDW Lymph % (Auto) Lymph # Seg Neutrophils % Seg Neuts % (Manual) Lymphocytes % (Manual) Nucleated RBC % Seg Neutrophils # Seg Neutrophils # Man Lymphocytes # (Manual) PT INR D-Dimer 1210.49 H ABG pH ABG pO2 ABG HCO3 ABG O2 Saturation ABG Base Excess ABG Hemoglobin Oxyhemoglobin Sodium Potassium Chloride Carbon Dioxide BUN Creatinine Glucose POC Glucose Hemoglobin A1c Lactic Acid Calcium Magnesium Ferritin 850.8 H AST ALT Alkaline Phosphatase Lactate Dehydrogenase 864 H C-Reactive Protein 5.50 H Total Protein Albumin Vancomycin Trough Random Vancomycin Miscellaneous Test 02/08/20 02/08/20 06:33 11:50 WBC RBC Hgb Hct MCV MCH RDW Lymph % (Auto) Lymph # Seg Neutrophils % Seg Neuts % (Manual) Lymphocytes % (Manual) Nucleated RBC % Seg Neutrophils # Seg Neutrophils # Man Lymphocytes # (Manual) PT INR D-Dimer ABG pH ABG pO2 ABG HCO3 ABG O2 Saturation ABG Base Excess ABG Hemoglobin Oxyhemoglobin Sodium Potassium Chloride Carbon Dioxide BUN Creatinine Glucose POC Glucose 178 H 166 H Hemoglobin A1c Lactic Acid Calcium Magnesium Ferritin AST ALT Alkaline Phosphatase Lactate Dehydrogenase C-Reactive Protein Total Protein Albumin Vancomycin Trough Random Vancomycin Miscellaneous Test Allied health notes reviewed: nursing
--- NOTE | 2020-02-08 16:45 | Progress Note ---
Assessment and Plan Cultures: Blood culture 01/17/2020 no growth to date Urine culture 01/17/2020 no growth to date Sputum normal resp dulce OR culture no growth today A/P: 29-year-old female past medical history diabetes admitted with acute sepsis secondary to right foot wound versus pneumonia. #Acute sepsis: fever resolved, now leukocytosis up again. Secondary to her left tight abscess versus pneumonia. #Severe COVID-19 pneumonia: Coronavirus testing has returned positive. Very high inflammatory markers - ferritin 2758. Markers down. IL-6 elevated 105. S/p plaquenil Day 5 #Acute respiratory failure:self extubated, was on venturi mask, now on NC O2 2L #Left thigh abscess: surgery on board s/p I+D with wound VAC #Right foot wound: Will need MRI when more stable to rule out osteomyelitis of the toe #Diabetes: uncontrolled #CIPRIANO: renally adjust abx, worsening on HD #Morbid obesity Recs: S/p zosyn renally adjusted Day 7 Continuos pulse oximetry and exercise oxymetry - 2 min walking as possible PT ContinueCOVID isolationprecautions per [facility] protocol Right foot toe infection stable, deferred MRI for now May need home O2 supplementation Dr Montero roundlanie on Tuesday Janett Duffy MD Infectious Diseases [place] [facility] ([facility]) M [phone] O [phone] Subjective Date of service: 02/08/20 Principal diagnosis: Severe Sepsis; LEV PNA; DM II; COVID-19 infection; CIPRIANO Interval history: Alert talking slightly sleepy no fever on 48h, poor appetite on NC 2 L PUI?: No COVID19: Positive Objective - Exam Narrative Exam: Constitutional: alert on NC O2 Oral: limited due to lack opf PPE Cardiovascular: Respiratory: GI: Soft, obese Musculoskeletal: Right hallux wound, left foot callus. Left thigh wound VAC Skin: Hem/Lymphatic: Psych: alert Neurological: alert - Constitutional Vitals: Vital Signs Temp Pulse Resp BP Pulse Ox 98.4 F 90 22 170/101 100 02/08/20 11:39 02/08/20 16:30 02/08/20 11:39 02/08/20 16:30 02/08/20 11:39 Temperature -Last 24 Hours Temperature 98.4 F Temperature 98 F Temperature 99.2 F Temperature 98.6 F - Labs CBC & Chem 7: 02/07/20 05:05 02/07/20 05:05 Labs: Abnormal lab results 02/07/20 02/07/20 02/08/20 Range/Units 16:45 22:44 04:57 D-Dimer 1210.49 H (0-234) ng/mlDDU POC Glucose 191 H 172 H (70-105) Ferritin (13.0-400.0) ng/mL Lactate Dehydrogenase (91-180) units/L C-Reactive Protein (0.00-1.30) mg/dL 02/08/20 02/08/20 02/08/20 Range/Units 04:57 04:57 06:33 D-Dimer (0-234) ng/mlDDU POC Glucose 178 H (70-105) Ferritin 850.8 H (13.0-400.0) ng/mL Lactate Dehydrogenase 864 H (91-180) units/L C-Reactive Protein 5.50 H (0.00-1.30) mg/dL 02/08/20 Range/Units 11:50 D-Dimer (0-234) ng/mlDDU POC Glucose 166 H (70-105) Ferritin (13.0-400.0) ng/mL Lactate Dehydrogenase (91-180) units/L C-Reactive Protein (0.00-1.30) mg/dL
--- NOTE | 2020-02-08 18:04 | Progress Note ---
Assessment and Plan Assessment and plan: January 24 the patient results for COVID 19 came back positive. 01/28: In addition to treatment as noted below patient was noted to have indurated area in the left thigh, Concerning for abscess development. Will obtain CT of the lower extremity 01/29: Patient noted hypotensive. She is refusing her p.o. week to be placed she sustained a fall overnight while trying to walk to the bathroom. CT of the lower extremity still pending we will proceed with consult to surgeons. We will discontinue all blood pressure medications give a bolus of fluid while mindful of possible developing ARDS. We will also obtain repeated chest x-ray as patient appears more toxic today. 01/31: Patient reintubated about 30 minutes after surgical procedure due to decompensation with hypotension and hypoxemia despite 100% oxygen and CPAP. Patient remains currently on the vent. We will continue dialysis. While stand up comedian assist with managing ventilator. We will continue to adjust blood sugar for better control. Patient is critically ill this has been conveyed to the family prior. 02/01: Mild improvement in inflammatory markers and chest x-ray. Otherwise patient still remains on mechanical ventilation still at high risk for ARDS mitigation processes are in place and plan. Continue aggressive management. She unfortunately still with low-grade intermittent fevers. Despite improvement in WBC. 02/02: Clinically stable wound VAC remains in place and functioning. Trial of CPAP today. Will recheck labs in a.m. inflammatory markers continue to improve ferritin is down to the 1900 range. 02/03: Inflammatory markers appear to be improving. There is some mild trickling down of hemoglobin we will continue to monitor this. Patient continues to tolerate dialysis. 02/04: Extubated, updated family. Continue aggressive management, wound care nurse dressed wound change dressing noted today good viable wound bed noted. As patient continues to improve we will consider transfer to [facility] in a.m. Inflammatory markers now improving. 02/05: Continues to improve, awaiting to have speech testing done. Patient doing well on oxygen post extubation. Continue aggressive wound management. Discussed with CM about transfer [facility] if [facility] will accept because patient has a long recovery ahead. 02/06 : On 2 L nasal cannula oxygen , saturating 94-95% Discussed extensively with Ms. Anh Varma at [phone] She has numerous questions and concerns , addressed all of them discharge planning per case management. possible LTAC placement 02/07: Awaiting LTAC placement, LTAC requires 2 neg Covid 19 tests to consider admission. Will check with ID --COVID 19 induced pneumonia Acute on chronic respiratory failure requiring mechanical ventilation s/p extubation, continue nasal cannula oxygen --Severe Sepsis/due to cough with pneumonia --Multiple Organ involvement/poor prognosis --Acute metabolic encephalopathy; Multifactorial, supportive care --Left thigh abscess status post I&D --Diabetic foot wound nonhealing --Morbid obesity hypoventilation syndrome --Acute kidney injury secondary to vasomotor nephropathy HD MWF, nephrology following --Anemia; of chronic kidney disease Closely monitor H&H and transfuse as needed --Hyponatremia-resolved, monitor electrolytes --Type II diabetes mellitus with uncontrolled blood sugar Accu-Chek sliding scale coverage ADA diet and insulin --Morbid obesity; BMI 44.8 --Hypertension monitor closely for septic shock --Severe protein calorie malnutrition: Secondary to underlying disease process Nutrition supplements nutrition consult --Dysphagia; patient needs PEG placement --DC planning; per case management -Outpatient HD chair scheduling -PEG tube placement -Possible LTAC placement -LTAC requires 2neg Covid tests Monitor closely and adjust the management as needed The high probability of a clinically significant, sudden or life threatening deterioration of the [pulmonary, renal, infectious, GI, metabolic, endocrine] system(s) required my full and direct attention, intervention and personal management. The aggregate critical care time was [33] minutes. This time is in addition to time spent performing reported procedures but includes the following: [x] Data Review and interpretation [x] Patient assessment and monitoring of vital signs [x] Documentation [x] Medication orders and management History Interval history: Patient remains critically ill Awaiting LTAC placement Covid 19 positive, in contact and droplet isolation Vital signs reviewed PUI?: Yes COVID19: Positive Hospitalist Physical - Physical exam Narrative exam: Limited exam due to shortage of PPE Discussed with deputy court clerk, agree with the nephrology physical exam - Constitutional Vitals: Temp Pulse Resp BP Pulse Ox 98.3 F 107 H 24 155/86 97 02/08/20 17:07 02/08/20 18:00 02/08/20 17:07 02/08/20 18:00 02/08/20 17:07 General appearance: Present: mild distress, well-nourished, obese (Morbidly obese) - EENT Eyes: Present: PERRL ENT: other - Neck Neck: Present: supple, normal ROM - Respiratory Respiratory effort: normal, other Respiratory: bilateral: diminished, rhonchi, negative: rales, wheezing - Cardiovascular Rhythm: other Heart Sounds: Present: S1 & S2 Results - Labs CBC & Chem 7: 02/09/20 05:27 02/09/20 05:27 Labs: Laboratory Last Values WBC 15.0 K/mm3 (4.5-11.0) H 02/07/20 05:05 RBC 3.30 M/mm3 (3.65-5.03) L 02/07/20 05:05 Hgb 8.3 gm/dl (10.1-14.3) L 02/07/20 05:05 Hct 26.6 % (30.3-42.9) L 02/07/20 05:05 MCV 81 fl (79-97) 02/07/20 05:05 MCH 25 pg (28-32) L 02/07/20 05:05 MCHC 31 % (30-34) 02/07/20 05:05 RDW 13.3 % (13.2-15.2) 02/07/20 05:05 Plt Count 173 K/mm3 (140-440) 02/07/20 05:05 Lymph % (Auto) 16.6 % (13.4-35.0) 01/18/20 08:30 Howell % (Auto) 2.8 % (0.0-7.3) 01/18/20 08:30 Eos % (Auto) 0.1 % (0.0-4.3) 01/18/20 08:30 Baso % (Auto) 0.4 % (0.0-1.8) 01/18/20 08:30 Lymph # 1.2 K/mm3 (1.2-5.4) 01/18/20 08:30 Howell # 0.2 K/mm3 (0.0-0.8) 01/18/20 08:30 Eos # 0.0 K/mm3 (0.0-0.4) 01/18/20 08:30 Baso # 0.0 K/mm3 (0.0-0.1) 01/18/20 08:30 Add Manual Diff Complete 01/26/20 05:40 Total Counted 100 01/26/20 05:40 Seg Neutrophils % Senior Qa Tester 01/26/20 05:40 Seg Neuts % (Manual) 90.0 % (40.0-70.0) H 01/26/20 05:40 Band Neutrophils % 5.0 % 01/26/20 05:40 Lymphocytes % (Manual) 1.0 % (13.4-35.0) L 01/26/20 05:40 Reactive Lymphs % (Man) 0 % 01/26/20 05:40 Monocytes % (Manual) 2.0 % (0.0-7.3) 01/26/20 05:40 Eosinophils % (Manual) 2.0 % (0.0-4.3) 01/26/20 05:40 Basophils % (Manual) 0 % (0.0-1.8) 01/26/20 05:40 Metamyelocytes % 0 % 01/26/20 05:40 Myelocytes % 0 % 01/26/20 05:40 Promyelocytes % 0 % 01/26/20 05:40 Blast Cells % 0 % 01/26/20 05:40 Nucleated RBC % 1.0 % (0.0-0.9) H 01/26/20 05:40 Seg Neutrophils # 5.9 K/mm3 (1.8-7.7) 01/18/20 08:30 Seg Neutrophils # Man 14.8 K/mm3 (1.8-7.7) H 01/26/20 05:40 Band Neutrophils # 0.8 K/mm3 01/26/20 05:40 Lymphocytes # (Manual) 0.2 K/mm3 (1.2-5.4) L 01/26/20 05:40 Abs React Lymphs (Man) 0.0 K/mm3 01/26/20 05:40 Monocytes # (Manual) 0.3 K/mm3 (0.0-0.8) 01/26/20 05:40 Eosinophils # (Manual) 0.3 K/mm3 (0.0-0.4) 01/26/20 05:40 Basophils # (Manual) 0.0 K/mm3 (0.0-0.1) 01/26/20 05:40 Metamyelocytes # 0.0 K/mm3 01/26/20 05:40 Myelocytes # 0.0 K/mm3 01/26/20 05:40 Promyelocytes # 0.0 K/mm3 01/26/20 05:40 Blast Cells # 0.0 K/mm3 01/26/20 05:40 WBC Morphology Not Reportable 01/26/20 05:40 Hypersegmented Neuts Not Reportable 01/26/20 05:40 Hyposegmented Neuts Not Reportable 01/26/20 05:40 Hypogranular Neuts Not Reportable 01/26/20 05:40 Smudge Cells Not Reportable 01/26/20 05:40 Toxic Granulation Not Reportable 01/26/20 05:40 Toxic Vacuolation Not Reportable 01/26/20 05:40 Dohle Bodies Not Reportable 01/26/20 05:40 Pelger-Huet Anomaly Not Reportable 01/26/20 05:40 Barbie Rods Not Reportable 01/26/20 05:40 Platelet Estimate Consistent w auto 01/26/20 05:40 Clumped Platelets Not Reportable 01/26/20 05:40 Plt Clumps, EDTA Not Reportable 01/26/20 05:40 Large Platelets Not Reportable 01/26/20 05:40 Giant Platelets Not Reportable 01/26/20 05:40 Platelet Satelliting Not Reportable 01/26/20 05:40 Plt Morphology Comment Not Reportable 01/26/20 05:40 RBC Morphology Normal 01/26/20 05:40 Dimorphic RBCs Not Reportable 01/26/20 05:40 Polychromasia Not Reportable 01/26/20 05:40 Hypochromasia Not Reportable 01/26/20 05:40 Poikilocytosis Not Reportable 01/26/20 05:40 Anisocytosis Not Reportable 01/26/20 05:40 Microcytosis Not Reportable 01/26/20 05:40 Macrocytosis Not Reportable 01/26/20 05:40 Spherocytes Not Reportable 01/26/20 05:40 Pappenheimer Bodies Not Reportable 01/26/20 05:40 Sickle Cells Not Reportable 01/26/20 05:40 Target Cells Not Reportable 01/26/20 05:40 Tear Drop Cells Not Reportable 01/26/20 05:40 Ovalocytes Not Reportable 01/26/20 05:40 Helmet Cells Not Reportable 01/26/20 05:40 Abernathy-Ritchie Bodies Not Reportable 01/26/20 05:40 [place] Rings Not Reportable 01/26/20 05:40 Garrison Cells Not Reportable 01/26/20 05:40 Bite Cells Not Reportable 01/26/20 05:40 Crenated Cell Not Reportable 01/26/20 05:40 Elliptocytes Not Reportable 01/26/20 05:40 Acanthocytes (Spur) Not Reportable 01/26/20 05:40 Rouleaux Not Reportable 01/26/20 05:40 Hemoglobin C Crystals Not Reportable 01/26/20 05:40 Schistocytes Not Reportable 01/26/20 05:40 Malaria parasites Not Reportable 01/26/20 05:40 ESR 70 mm/Hr (0-20) 01/17/20 22:58 Ras Bodies Not Reportable 01/26/20 05:40 Hem Pathologist Commnt No 01/26/20 05:40 PT 15.6 Sec. (12.2-14.9) H 01/17/20 18:28 INR 1.22 (0.87-1.13) H 01/17/20 18:28 D-Dimer 1210.49 ng/mlDDU (0-234) H 02/08/20 04:57 ABG pH 7.497 pH Units (7.350-7.450) H 02/05/20 Unknown ABG pCO2 30.2 mm Hg 02/05/20 Unknown ABG pO2 111.6 mm Hg (80.0-90.0) H 02/05/20 Unknown ABG HCO3 22.9 mmol/L (20.0-26.0) 02/05/20 Unknown ABG O2 Saturation 98.3 % (95.0-99.0) 02/05/20 Unknown ABG O2 Content 10.3 (0.0-44) 02/05/20 Unknown ABG Base Excess -0.1 mmol/L (-2.0-3.0) 02/05/20 Unknown ABG Hemoglobin 7.4 gm/dl (12.0-16.0) L 02/05/20 Unknown ABG Carboxyhemoglobin 1.3 % (0.0-5.0) 02/05/20 Unknown ABG Methemoglobin 0.4 % (0.0-1.5) 02/05/20 Unknown VBG pH 7.409 (7.320-7.420) 01/17/20 18:28 Oxyhemoglobin 96.7 % (95.0-99.0) 02/05/20 Unknown FiO2 40 % 02/05/20 Unknown Sodium 141 mmol/L (137-145) 02/07/20 05:05 Potassium 4.0 mmol/L (3.6-5.0) 02/07/20 05:05 Chloride 98.2 mmol/L (98-107) 02/07/20 05:05 Carbon Dioxide 22 mmol/L (22-30) 02/07/20 05:05 Anion Gap 25 mmol/L 02/07/20 05:05 BUN 63 mg/dL (7-17) H 02/07/20 05:05 Creatinine 6.1 mg/dL (0.7-1.2) H 02/07/20 05:05 Estimated GFR 10 ml/min 02/07/20 05:05 BUN/Creatinine Ratio 10 % 02/07/20 05:05 Glucose 231 mg/dL (65-100) H 02/07/20 05:05 POC Glucose 170 (70-105) H 02/08/20 17:06 Hemoglobin A1c 11.6 % (4-6) H 01/18/20 12:47 Lactic Acid 1.30 mmol/L (0.7-2.0) 01/18/20 08:30 Calcium 8.6 mg/dL (8.4-10.2) 02/07/20 05:05 Magnesium 1.50 mg/dL (1.7-2.3) L 01/17/20 22:58 Ferritin 850.8 ng/mL (13.0-400.0) H 02/08/20 04:57 Total Bilirubin 0.50 mg/dL (0.1-1.2) 01/31/20 03:49 AST 112 units/L (5-40) H 01/31/20 03:49 ALT 112 units/L (7-56) H 01/31/20 03:49 Alkaline Phosphatase 145 units/L (35-129) H 01/31/20 03:49 Lactate Dehydrogenase 864 units/L (91-180) H 02/08/20 04:57 Total Creatine Kinase 122 units/L (30-135) 01/17/20 22:58 C-Reactive Protein 5.50 mg/dL (0.00-1.30) H 02/08/20 04:57 Total Protein 5.5 g/dL (6.3-8.2) L 01/31/20 03:49 Albumin 1.7 g/dL (3.9-5) L 01/31/20 03:49 Albumin/Globulin Ratio 0.4 % 01/31/20 03:49 Procalcitonin 0.27 ng/mL (<0.15) 01/23/20 10:36 HCG, Qual Negative (Negative) 01/31/20 03:49 Urine Color Yellow (Yellow) 01/18/20 00:32 Urine Turbidity Slightly-cloudy (Clear) 01/18/20 00:32 Urine pH 5.0 (5.0-7.0) 01/18/20 00:32 Ur Specific [place] 1.011 (1.003-1.030) 01/18/20 00:32 Urine Protein 100 mg/dl mg/dL (Negative) 01/18/20 00:32 Urine Glucose (UA) >=500 mg/dL (Negative) 01/18/20 00:32 Urine Ketones Tr mg/dL (Negative) 01/18/20 00:32 Urine Blood Neg (Negative) 01/18/20 00:32 Urine Nitrite Neg (Negative) 01/18/20 00:32 Urine Bilirubin Neg (Negative) 01/18/20 00:32 Urine Urobilinogen < 2.0 mg/dL (<2.0) 01/18/20 00:32 Ur Leukocyte Esterase Neg (Negative) 01/18/20 00:32 Urine WBC (Auto) 2.0 /HPF (0.0-6.0) 01/18/20 00:32 Urine RBC (Auto) 4.0 /HPF (0.0-6.0) 01/18/20 00:32 U Epithel Cells (Auto) 2.0 /HPF (0-13.0) 01/18/20 00:32 Hyaline Casts 1 /LPF 01/18/20 00:32 Urine Mucus Few /HPF 01/18/20 00:32 Urine Yeast (Budding) Few /HPF 01/18/20 00:32 Vancomycin Trough 45.4 ug/mL (5.0-20.0) H 01/30/20 05:19 Random Vancomycin 30.6 ug/mL (0-40.0) 02/01/20 03:49 Hepatitis A IgM Ab Non-reactive (NonReactive) 02/01/20 10:57 Hep Bs Antigen Non-reactive (Negative) 02/01/20 10:57 Hep B Core IgM Ab Non-reactive (NonReactive) 02/01/20 10:57 Hepatitis C Antibody Non-reactive (NonReactive) 02/01/20 10:57 Influenza A (Rapid) Negative (Negative) 01/19/20 01:10 Influenza B (Rapid) Negative (Negative) 01/19/20 01:10 AFB Identification 01/20/20 04:00 Miscellaneous Test Flexitest 1 H 01/28/20 10:00 Goldstein/IV: Voiding Method Diaper IV Catheter Type [right ac] INT / Saline Lock IV Catheter Type [Right trialysis Femoral] IV Catheter Type [Right Peripheral IV Forearm] IV Catheter Type [Right Wrist] INT / Saline Lock IV Catheter Type [Right Hand] INT / Saline Lock IV Catheter Type [Right Upper INT / Saline Lock arm] IV Catheter Type [Left Hand] INT / Saline Lock Active Medications - Current Medications Current Medications: Generic Name Dose Route Start Last Admin Trade Name Freq PRN Reason Stop Dose Admin Acetaminophen 650 mg 01/17/20 23:06 01/29/20 22:43 Tylenol PO 650 mg Q4H PRN Administration Pain MILD(1-3)/Fever >100.5/COLLINS Lipase/Protease/Amylase 1 each 02/01/20 09:53 Pancreaze 10,500 Unit FEEDTUBE PRN PRN For Clogged Feeding Tube Dextrose 0 ml 01/17/20 23:06 D50w (25gm) Syringe IV Q30MIN PRN Hypoglycemia Protocol Famotidine 20 mg 01/24/20 10:00 02/08/20 09:41 Pepcid PO 20 mg QDAY COBY Administration Heparin Sodium (Porcine) 5,000 unit 01/18/20 06:00 02/08/20 13:41 Heparin SUB-Q 5,000 unit Q8HR COBY Administration Hydralazine HCl 10 mg 01/18/20 22:14 01/22/20 18:43 Apresoline IV 10 mg Q6H PRN Administration Hypertension Hydrophilic Ointment 1 applic 01/31/20 21:48 Vaseline Lip Therapy TP Q2HR PRN Dry Lips Sodium Chloride 100 mls @ 999 mls/hr 02/05/20 11:31 Nacl 0.9% IV KIRSTEN PRN Hypotension Insulin Human Isoph/Insulin Regular 25 unit 02/06/20 22:00 02/08/20 09:52 Humulin 70/30 SUB-Q Not Given BID COBY Insulin Human Regular 0 units 02/01/20 12:00 02/08/20 17:46 Humulin R SUB-Q 3 units Q6HR COBY Administration Protocol Insulin Human Regular 5 units 02/04/20 12:00 02/08/20 17:06 Humulin R SUB-Q Not Given Q6HR COBY Magnesium Hydroxide 30 ml 01/17/20 23:06 Milk Of Magnesia PO Q4H PRN Constipation Morphine Sulfate 2 mg 01/17/20 23:06 02/05/20 11:49 Morphine IV 2 mg Q4H PRN Administration Pain, Moderate (4-6) Multi-Ingred Cream/Lotion/Oil/Oint 1 applic 01/31/20 21:48 Artificial Tears Ophth Oint OU Q4HR PRN Dry Eye(s) Nystatin 1 applic 01/29/20 14:00 02/08/20 09:42 Nystop TP 1 applic BID COBY Administration Ondansetron HCl 4 mg 01/17/20 23:06 01/30/20 20:47 Zofran IV 4 mg Q8H PRN Administration Nausea And Vomiting Simple Syrup 15 ml 02/01/20 09:53 Simple Syrup FEEDTUBE PRN PRN Hypoglycemia Simple Syrup 30 ml 02/01/20 09:53 Simple Syrup FEEDTUBE PRN PRN Hypoglycemia Sodium Bicarbonate 325 mg 02/01/20 09:53 Sodium Bicarbonate FEEDTUBE PRN PRN For Clogged Feeding Tube Sodium Chloride 10 ml 01/18/20 10:00 02/08/20 09:41 Sodium Chloride Flush Syringe 10 Ml IV 10 ml BID COBY Administration Sodium Chloride 10 ml 01/17/20 23:06 02/04/20 05:07 Sodium Chloride Flush Syringe 10 Ml IV 10 ml PRN PRN Administration LINE FLUSH Nutrition/Malnutrition Assess - Dietary Evaluation Nutrition/Malnutrition Findings: Nutrition Notes Start: 01/18/20 13:13 Freq: Status: Active Protocol: Document 02/04/20 12:57 LM (Rec: 02/04/20 13:02 LM [id number]) Nutrition Notes Initial or Follow up Reassessment Current Diagnosis Diabetes,Sepsis Other Pertinent Diagnosis COVID-19 positive, LEV pnue, ( R) great toe wound Current Diet Vital HP 1.0 at 75ml/hr Labs/Tests Na 140 BUN 80 Cr 5.8 BG 209 Pertinent Medications Humulin Height 6 ft Weight 147.9 kg [place] Body Weight (kg) 72.72 BMI 44.1 Weight Status Morbidly Obese Subjective/Other Information Per RN pt is tolerating TF at goal. Na now in normal range. Percent of energy/protein needs met: 87%/86% Burn Absent Trauma Absent Current % PO Negligible Minimum of two criteria No physical signs of malnutrition #3 Nutrition Diagnosis Inadequate oral intake Diagnosis Progress(for reassessment Continues documentation) #2 Nutrition Diagnosis Inadequate protein-energy intake Diagnosis Progress(for reassessment Continues documentation) #1 Nutrition Diagnosis Increased nutrient needs ( specify in comment below) Diagnosis Progress(for reassessment Continues documentation) Is patient on ventilator? Yes Is Patient Ambulatory and/or Out of Bed Yes REE-(Amite-St. Jeor-ambulatory/OOB) [ 3004.300 [id number]] Kcal/Kg value to use for calculation 14 Approximate Energy Requirements Using 1 kcal/Kg Calculation Used for Recommendations Kcal/kg Additional Notes Protein: 183g (up to 2.5g/kg using IBW 73kg Fluid needs 1ml/kcal Nutrition Intervention Change Diet Order: Continue TF Nutrition Support: Vital HP 1.0 at 75ml/hr Flush 50 ml q4h Kcal 1,800 Protein (gm) 158 Fluid (mL) 1,505 Goal #1 TF tolerance Goal #2 Meet at least 75% of energy and protein needs via TF Goal #3 Wound healing Anticipated Discharge Needs: unable to determine at this time Follow-Up By: 02/11/20 Additional Comments F/U for TF tolerance
[2020-02-09] MEDS: INSULIN REGULAR, HUMAN 100 UNITS/1 ML SUB-Q SCH ×10 (03:04→22:06)
[2020-02-09] MEDS: HEPARIN 5,000 UNIT/1 ML VIAL SUB-Q SCH ×3 (05:36→21:28)
[2020-02-09 05:57] LABS: Basophils % (Auto) 0.5 % (0.0-1.8); Eosinophils # (Auto) 0.4 K/mm3 (0.0-0.4); Eosinophils % (Auto) 4.5 % (0.0-4.3); Hematocrit 25.6 % (30.3-42.9); Hemoglobin 8.4 gm/dl (10.1-14.3); Lymphocytes # (Auto) 1.1 K/mm3 (1.2-5.4); Mean Corpuscular HGB Conc 33 % (30-34); Mean Corpuscular Volume 80 fl (79-97); Monocytes % (Auto) 11.8 % (0.0-7.3); Platelet Count 186 K/mm3 (140-440); Red Cell Distribution Width 13.7 % (13.2-15.2)
[2020-02-09 06:45] LABS: Calcium 8.6 mg/dL (8.4-10.2)
[2020-02-09] MEDS: FAMOTIDINE 20 MG TAB PO SCH (09:44)
[2020-02-09] MEDS: INSULIN NPH/REGULAR 70/30 INJ SUB-Q SCH ×2 (09:45→22:05)
[2020-02-09] MEDS: NYSTATIN POWDER 15 GM TP SCH ×2 (09:47→21:29)
--- NOTE | 2020-02-09 13:10 | Progress Note ---
Assessment and Plan - Patient Problems (1) Acute kidney injury (CIPRIANO) with acute tubular necrosis (ATN) Current Visit: Yes Status: Acute Plan to address problem: No signs of renal recovery noted at present time. Will plan to maintain on MW inpatient HD schedule, and assess daily for need of extra isolated UF sessions in order to optimize her volume control. Plan for HD today. As she has not shown signs of recovery, would recommend that we plan for permcath placement next week in anticipation for outpatient HD needs. (2) Acute respiratory failure with hypoxia Current Visit: Yes Status: Acute Plan to address problem: Patient self extubated. Management per pulmonology. Stable on NC. (3) Pneumonia due to COVID-19 virus Current Visit: Yes Status: Acute Plan to address problem: Management per ID recommendations. (4) Type 2 diabetes mellitus with hyperglycemia Current Visit: Yes Status: Acute Plan to address problem: DM management per primary attending Subjective Date of service: 02/09/20 Principal diagnosis: Severe Sepsis; LEV PNA; DM II; COVID-19 infection; CIPRIANO Interval history: Patient had a fall this am when she was trying to sit up at t he side of the bed. She has been stable otherwise, and per RN even when she is not on O2 her sats are ~ 96%. Plan for next HD session on Tuesday. PUI?: No COVID19: Positive Objective - Vital Signs Vital signs: Vital Signs - 12hr 02/09/20 02/09/20 02/09/20 04:53 09:18 10:54 Temperature 98.2 F Pulse Rate 82 83 Respiratory 20 20 Rate Blood Pressure 141/79 156/92 O2 Sat by Pulse 100 98 100 Oximetry - General Appearance General appearance: appears stated age EENT: ATNC Neck: no JVD Respiratory: Present: Decreased Breath Sounds Cardiology: regular Gastrointestinal: normal Integumentary: no rash Musculoskeletal: deferred - Lab 02/09/20 05:27 02/09/20 05:27 Most recent lab results ABG pH 7.497 pH Units (7.350-7.450) H 02/05/20 Unknown ABG pCO2 30.2 mm Hg 02/05/20 Unknown ABG pO2 111.6 mm Hg (80.0-90.0) H 02/05/20 Unknown ABG HCO3 22.9 mmol/L (20.0-26.0) 02/05/20 Unknown ABG O2 Saturation 98.3 % (95.0-99.0) 02/05/20 Unknown Calcium 8.6 mg/dL (8.4-10.2) 02/09/20 05:27 Magnesium 1.50 mg/dL (1.7-2.3) L 01/17/20 22:58 - Allied health notes Allied health notes reviewed: nursing Medications & Allergies - Medications Allergies/Adverse Reactions: Allergies No Known Allergies Allergy (Verified 09/12/18 00:37) Home Medications: Home Medications Medication Instructions Recorded Confirmed Last Taken Type glipiZIDE-Metformin 5-500 mg 500 mg PO BID 01/17/20 01/17/20 Unknown History Active Medications: Generic Name Dose Route Start Last Admin Trade Name Freq PRN Reason Stop Dose Admin Acetaminophen 650 mg 01/17/20 23:06 01/29/20 22:43 Tylenol PO 650 mg Q4H PRN Administration Pain MILD(1-3)/Fever >100.5/COLLINS Lipase/Protease/Amylase 1 each 02/01/20 09:[address] 10,500 Unit FEEDTUBE PRN PRN For Clogged Feeding Tube Dextrose 0 ml 01/17/20 23:06 D50w (25gm) Syringe IV Q30MIN PRN Hypoglycemia Protocol Famotidine 20 mg 01/24/20 10:00 02/09/20 09:44 Pepcid PO 20 mg QDAY COBY Administration Heparin Sodium (Porcine) 5,000 unit 01/18/20 06:00 02/09/20 05:36 Heparin SUB-Q 5,000 unit Q8HR COBY Administration Hydralazine HCl 10 mg 01/18/20 22:14 01/22/20 18:43 Apresoline IV 10 mg Q6H PRN Administration Hypertension Hydrophilic Ointment 1 applic 01/31/20 21:48 Vaseline Lip Therapy TP Q2HR PRN Dry Lips Sodium Chloride 100 mls @ 999 mls/hr 02/05/20 11:31 Nacl 0.9% IV KIRSTEN PRN Hypotension Insulin Human Isoph/Insulin Regular 25 unit 02/06/20 22:00 02/09/20 09:45 Humulin 70/30 SUB-Q Not Given BID COBY Insulin Human Regular 0 units 02/01/20 12:00 02/09/20 12:38 Humulin R SUB-Q Not Given Q6HR [facility] Protocol Insulin Human Regular 5 units 02/04/20 12:00 02/09/20 12:39 Humulin R SUB-Q Not Given Q6HR [facility] Magnesium Hydroxide 30 ml 01/17/20 23:06 Milk Of Magnesia PO Q4H PRN Constipation Morphine Sulfate 2 mg 01/17/20 23:06 02/05/20 11:49 Morphine IV 2 mg Q4H PRN Administration Pain, Moderate (4-6) Multi-Ingred Cream/Lotion/Oil/Oint 1 applic 01/31/20 21:48 Artificial Tears Ophth Oint OU Q4HR PRN Dry Eye(s) Nystatin 1 applic 01/29/20 14:00 02/09/20 09:47 Nystop TP 1 applic BID COBY Administration Ondansetron HCl 4 mg 01/17/20 23:06 01/30/20 20:47 Zofran IV 4 mg Q8H PRN Administration Nausea And Vomiting Simple Syrup 15 ml 02/01/20 09:53 Simple Syrup FEEDTUBE PRN PRN Hypoglycemia Simple Syrup 30 ml 02/01/20 09:53 Simple Syrup FEEDTUBE PRN PRN Hypoglycemia Sodium Bicarbonate 325 mg 02/01/20 09:53 Sodium Bicarbonate FEEDTUBE PRN PRN For Clogged Feeding Tube Sodium Chloride 10 ml 01/18/20 10:00 02/09/20 09:44 Sodium Chloride Flush Syringe 10 Ml IV 10 ml BID COBY Administration Sodium Chloride 10 ml 01/17/20 23:06 02/04/20 05:07 Sodium Chloride Flush Syringe 10 Ml IV 10 ml PRN PRN Administration LINE FLUSH
--- NOTE | 2020-02-09 14:12 | Progress Note ---
Assessment and Plan Acute Hypoxemic Respiratory failure Severe Sepsis COVID-19 infection Left upper lobe pneumonia Diabetes II Morbid obesity Febrile illness Diabetic foot ulcer Hyponatremia Lactic acidosis - continue to wean supplemental oxygen to keep O2 sats > 90% - COVID-19 precautions per [facility] protocol - continue contact, droplet and airborne precautions -Wound vac and wound care -Complete antibiotics per ID -Aspiration precautions -Nutrtional support - Accuchecks with glycemic control, keep blood glucose < 180 mg/dL (Avoid hypoglycemia) - Avoid nephrotoxins, adjust and dose all medications fro GFR and CrCL - continue GI & VTE prophylaxis - continue wound care per RN / WCT, wound vac - prn analgesia per pain score - mobility protocols to prevent pressure ulcers - GI & VTE prophylaxis - Flu & pneumovax per protocol - continue other care per attending / other consultants Discharge planning per primary service CONDITION: FAIR PROGNOSIS: IMPROVED CODE STATUS: FULL CODE Subjective Date of service: 02/09/20 Principal diagnosis: Severe Sepsis; LEV PNA; DM II; COVID-19 infection; CIPRIANO Interval history: Patient is seen today for: Severe Sepsis with septic shock ; LEV pneumonia; Acute hypoxemic respiratory failures/p MVS; Diabetes II; Morbid obesity; Febrile illness; POSITIVE COVID-19 infection; Diabetic foot ulcer; Hyponatremia; Lactic acidosis 02/01/2020 POD#1 s/p extensive I&D of left thigh abscess with sepsis and showing signs of multi-system organ failure; critically ill orally intubated on MVS; on HD , and vasopressor support. Norepinephrine at 14mcg; Fentanyl at 1mcg. No urine output, has a right femoral trialysis catheter. Currently on Zosyn, received one dose of Vancomycin- therapeutic level is markedly increased. pH 7.29- metabolic acidosis. 02/04/2020 Vitals, labs, medications, chart and imaging reviewed. Remains orally intubated ETT 7.5cm at 22cm at the [facility] 14//% ..pA02 104.8 Poor glycemic control with blood glucose>200 On Zosyn D4/7 Ferritin down to 1660, D-dimer down to 694, CRP down to 6.2, sligh elevation of LDH to 972 Fentanyl at 1mcg with RASS -1 Norepinephrine off ( 02/02/2020) CXR alveolar infiltrates improving For HD today 02/09/12 Seen and examined at bedside; 24hour events reviewed; nursing and respiratory care staff consulted; no adverse overnight events reported to me; No new issues. PUI?: No COVID19: Positive Objective - Exam Narrative Exam: Limited exam due to shortage of PPE Vital Signs - 12hr 02/09/20 02/09/20 02/09/20 04:53 09:18 10:54 Temperature 98.2 F Pulse Rate 82 83 Respiratory 20 20 Rate Blood Pressure 141/79 156/92 O2 Sat by Pulse 100 98 100 Oximetry Ascultation: Bilateral: diminished breath sounds, rales (scant in bases) Percussion: Bilateral: not dull CBC and BMP: 02/09/20 05:27 02/09/20 05:27 ABG, PT/INR, D-dimer: ABG ABG pH 7.497 pH Units (7.350-7.450) H 02/05/20 Unknown ABG pCO2 30.2 mm Hg 02/05/20 Unknown ABG pO2 111.6 mm Hg (80.0-90.0) H 02/05/20 Unknown ABG O2 Saturation 98.3 % (95.0-99.0) 02/05/20 Unknown PT/INR, D-dimer PT 15.6 Sec. (12.2-14.9) H 01/17/20 18:28 INR 1.22 (0.87-1.13) H 01/17/20 18:28 D-Dimer 1210.49 ng/mlDDU (0-234) H 02/08/20 04:57 Abnormal lab findings: Abnormal Labs 01/17/20 01/17/20 01/17/20 18:28 18:28 18:28 WBC RBC Hgb Hct MCV MCH 26 L RDW Lymph % (Auto) 9.3 L [place] % (Auto) Eos % (Auto) Lymph # 1.0 L [place] # Seg Neutrophils % 86.7 H Seg Neuts % (Manual) Lymphocytes % (Manual) Nucleated RBC % Seg Neutrophils # 9.6 H Seg Neutrophils # Man Lymphocytes # (Manual) PT 15.6 H INR 1.22 H D-Dimer ABG pH ABG pO2 ABG HCO3 ABG O2 Saturation ABG Base Excess ABG Hemoglobin Oxyhemoglobin Sodium 126 L Potassium Chloride 89.3 L Carbon Dioxide 19 L BUN Creatinine Glucose 397 H POC Glucose Hemoglobin A1c Lactic Acid Calcium Magnesium Ferritin AST ALT Alkaline Phosphatase Lactate Dehydrogenase C-Reactive Protein Total Protein 9.0 H Albumin Vancomycin Trough Random Vancomycin Miscellaneous Test 01/17/20 01/17/20 01/17/20 18:28 22:58 22:58 WBC RBC Hgb Hct MCV MCH RDW Lymph % (Auto) [place] % (Auto) Eos % (Auto) Lymph # [place] # Seg Neutrophils % Seg Neuts % (Manual) Lymphocytes % (Manual) Nucleated RBC % Seg Neutrophils # Seg Neutrophils # Man Lymphocytes # (Manual) PT INR D-Dimer ABG pH ABG pO2 ABG HCO3 ABG O2 Saturation ABG Base Excess ABG Hemoglobin Oxyhemoglobin Sodium Potassium Chloride Carbon Dioxide BUN Creatinine Glucose POC Glucose Hemoglobin A1c Lactic Acid 3.40 H* 2.30 H* Calcium Magnesium 1.50 L Ferritin AST ALT Alkaline Phosphatase Lactate Dehydrogenase C-Reactive Protein 16.60 H Total Protein Albumin Vancomycin Trough Random Vancomycin Miscellaneous Test 01/18/20 01/18/20 01/18/20 00:46 06:34 08:30 WBC RBC Hgb Hct MCV MCH 26 L RDW 12.7 L Lymph % (Auto) [place] % (Auto) Eos % (Auto) Lymph # [place] # Seg Neutrophils % 80.1 H Seg Neuts % (Manual) Lymphocytes % (Manual) Nucleated RBC % Seg Neutrophils # Seg Neutrophils # Man Lymphocytes # (Manual) PT INR D-Dimer ABG pH ABG pO2 ABG HCO3 ABG O2 Saturation ABG Base Excess ABG Hemoglobin Oxyhemoglobin Sodium Potassium Chloride Carbon Dioxide BUN Creatinine Glucose POC Glucose 338 H 266 H Hemoglobin A1c Lactic Acid Calcium Magnesium Ferritin AST ALT Alkaline Phosphatase Lactate Dehydrogenase C-Reactive Protein Total Protein Albumin Vancomycin Trough Random Vancomycin Miscellaneous Test 01/18/20 01/18/20 01/18/20 08:30 08:35 12:30 WBC RBC Hgb Hct MCV MCH RDW Lymph % (Auto) [place] % (Auto) Eos % (Auto) Lymph # [place] # Seg Neutrophils % Seg Neuts % (Manual) Lymphocytes % (Manual) Nucleated RBC % Seg Neutrophils # Seg Neutrophils # Man Lymphocytes # (Manual) PT INR D-Dimer ABG pH ABG pO2 ABG HCO3 ABG O2 Saturation ABG Base Excess ABG Hemoglobin Oxyhemoglobin Sodium 135 L D Potassium Chloride Carbon Dioxide BUN Creatinine Glucose 250 H POC Glucose 224 H 213 H Hemoglobin A1c Lactic Acid Calcium Magnesium Ferritin AST ALT Alkaline Phosphatase Lactate Dehydrogenase C-Reactive Protein Total Protein Albumin Vancomycin Trough Random Vancomycin Miscellaneous Test 01/18/20 01/18/20 01/18/20 12:47 16:56 22:03 WBC RBC Hgb Hct MCV MCH RDW Lymph % (Auto) [place] % (Auto) Eos % (Auto) Lymph # [place] # Seg Neutrophils % Seg Neuts % (Manual) Lymphocytes % (Manual) Nucleated RBC % Seg Neutrophils # Seg Neutrophils # Man Lymphocytes # (Manual) PT INR D-Dimer ABG pH ABG pO2 ABG HCO3 ABG O2 Saturation ABG Base Excess ABG Hemoglobin Oxyhemoglobin Sodium Potassium Chloride Carbon Dioxide BUN Creatinine Glucose POC Glucose 270 H 239 H Hemoglobin A1c 11.6 H Lactic Acid Calcium Magnesium Ferritin AST ALT Alkaline Phosphatase Lactate Dehydrogenase C-Reactive Protein Total Protein Albumin Vancomycin Trough Random Vancomycin Miscellaneous Test 01/19/20 01/19/20 01/19/20 06:15 11:48 13:09 WBC RBC Hgb Hct MCV MCH 26 L RDW Lymph % (Auto) [place] % (Auto) Eos % (Auto) Lymph # [place] # Seg Neutrophils % Seg Neuts % (Manual) Lymphocytes % (Manual) Nucleated RBC % Seg Neutrophils # Seg Neutrophils # Man Lymphocytes # (Manual) PT INR D-Dimer ABG pH ABG pO2 ABG HCO3 ABG O2 Saturation ABG Base Excess ABG Hemoglobin Oxyhemoglobin Sodium Potassium Chloride Carbon Dioxide BUN Creatinine Glucose POC Glucose 248 H 268 H Hemoglobin A1c Lactic Acid Calcium Magnesium Ferritin AST ALT Alkaline Phosphatase Lactate Dehydrogenase C-Reactive Protein Total Protein Albumin Vancomycin Trough Random Vancomycin Miscellaneous Test 01/19/20 01/19/20 01/20/20 17:44 21:09 09:03 WBC RBC Hgb Hct MCV MCH RDW Lymph % (Auto) [place] % (Auto) Eos % (Auto) Lymph # [place] # Seg Neutrophils % Seg Neuts % (Manual) Lymphocytes % (Manual) Nucleated RBC % Seg Neutrophils # Seg Neutrophils # Man Lymphocytes # (Manual) PT INR D-Dimer ABG pH ABG pO2 ABG HCO3 ABG O2 Saturation ABG Base Excess ABG Hemoglobin Oxyhemoglobin Sodium Potassium Chloride Carbon Dioxide BUN Creatinine Glucose POC Glucose 214 H 261 H 241 H Hemoglobin A1c Lactic Acid Calcium Magnesium Ferritin AST ALT Alkaline Phosphatase Lactate Dehydrogenase C-Reactive Protein Total Protein Albumin Vancomycin Trough Random Vancomycin Miscellaneous Test 01/20/20 01/20/20 01/20/20 12:10 17:00 19:43 WBC RBC Hgb Hct MCV MCH RDW Lymph % (Auto) [place] % (Auto) Eos % (Auto) Lymph # [place] # Seg Neutrophils % Seg Neuts % (Manual) Lymphocytes % (Manual) Nucleated RBC % Seg Neutrophils # Seg Neutrophils # Man Lymphocytes # (Manual) PT INR D-Dimer ABG pH ABG pO2 ABG HCO3 ABG O2 Saturation ABG Base Excess ABG Hemoglobin Oxyhemoglobin Sodium Potassium Chloride Carbon Dioxide BUN Creatinine Glucose POC Glucose 284 H 272 H Hemoglobin A1c Lactic Acid Calcium Magnesium Ferritin AST ALT Alkaline Phosphatase Lactate Dehydrogenase C-Reactive Protein Total Protein Albumin Vancomycin Trough 4.0 L Random Vancomycin Miscellaneous Test 01/20/20 01/21/20 01/21/20 22:39 09:29 11:41 WBC RBC Hgb Hct MCV MCH 26 L RDW Lymph % (Auto) [place] % (Auto) Eos % (Auto) Lymph # [place] # Seg Neutrophils % Seg Neuts % (Manual) Lymphocytes % (Manual) Nucleated RBC % Seg Neutrophils # Seg Neutrophils # Man Lymphocytes # (Manual) PT INR D-Dimer ABG pH ABG pO2 ABG HCO3 ABG O2 Saturation ABG Base Excess ABG Hemoglobin Oxyhemoglobin Sodium Potassium Chloride Carbon Dioxide BUN Creatinine Glucose POC Glucose 248 H 238 H Hemoglobin A1c Lactic Acid Calcium Magnesium Ferritin AST ALT Alkaline Phosphatase Lactate Dehydrogenase C-Reactive Protein Total Protein Albumin Vancomycin Trough Random Vancomycin Miscellaneous Test 01/21/20 01/21/20 01/21/20 11:41 12:27 16:55 WBC RBC Hgb Hct MCV MCH RDW Lymph % (Auto) [place] % (Auto) Eos % (Auto) Lymph # [place] # Seg Neutrophils % Seg Neuts % (Manual) Lymphocytes % (Manual) Nucleated RBC % Seg Neutrophils # Seg Neutrophils # Man Lymphocytes # (Manual) PT INR D-Dimer ABG pH ABG pO2 ABG HCO3 ABG O2 Saturation ABG Base Excess ABG Hemoglobin Oxyhemoglobin Sodium 132 L Potassium 3.5 L Chloride 97.0 L Carbon Dioxide 19 L BUN Creatinine Glucose 274 H POC Glucose 264 H 261 H Hemoglobin A1c Lactic Acid Calcium Magnesium Ferritin AST ALT Alkaline Phosphatase Lactate Dehydrogenase C-Reactive Protein Total Protein Albumin Vancomycin Trough Random Vancomycin Miscellaneous Test 01/21/20 01/22/20 01/22/20 22:39 09:05 12:57 WBC RBC Hgb Hct MCV MCH RDW Lymph % (Auto) [place] % (Auto) Eos % (Auto) Lymph # [place] # Seg Neutrophils % Seg Neuts % (Manual) Lymphocytes % (Manual) Nucleated RBC % Seg Neutrophils # Seg Neutrophils # Man Lymphocytes # (Manual) PT INR D-Dimer ABG pH ABG pO2 ABG HCO3 ABG O2 Saturation ABG Base Excess ABG Hemoglobin Oxyhemoglobin Sodium Potassium Chloride Carbon Dioxide BUN Creatinine Glucose POC Glucose 243 H 258 H 252 H Hemoglobin A1c Lactic Acid Calcium Magnesium Ferritin AST ALT Alkaline Phosphatase Lactate Dehydrogenase C-Reactive Protein Total Protein Albumin Vancomycin Trough Random Vancomycin Miscellaneous Test 01/22/20 01/22/20 01/23/20 17:14 21:30 09:03 WBC RBC Hgb Hct MCV MCH RDW Lymph % (Auto) [place] % (Auto) Eos % (Auto) Lymph # [place] # Seg Neutrophils % Seg Neuts % (Manual) Lymphocytes % (Manual) Nucleated RBC % Seg Neutrophils # Seg Neutrophils # Man Lymphocytes # (Manual) PT INR D-Dimer ABG pH ABG pO2 ABG HCO3 ABG O2 Saturation ABG Base Excess ABG Hemoglobin Oxyhemoglobin Sodium Potassium Chloride Carbon Dioxide BUN Creatinine Glucose POC Glucose 306 H 217 H 156 H Hemoglobin A1c Lactic Acid Calcium Magnesium Ferritin AST ALT Alkaline Phosphatase Lactate Dehydrogenase C-Reactive Protein Total Protein Albumin Vancomycin Trough Random Vancomycin Miscellaneous Test 01/23/20 01/23/20 01/23/20 10:36 11:12 17:11 WBC RBC Hgb Hct MCV MCH RDW Lymph % (Auto) [place] % (Auto) Eos % (Auto) Lymph # [place] # Seg Neutrophils % Seg Neuts % (Manual) Lymphocytes % (Manual) Nucleated RBC % Seg Neutrophils # Seg Neutrophils # Man Lymphocytes # (Manual) PT INR D-Dimer ABG pH ABG pO2 ABG HCO3 ABG O2 Saturation ABG Base Excess ABG Hemoglobin Oxyhemoglobin Sodium Potassium 3.0 L Chloride Carbon Dioxide 21 L BUN Creatinine Glucose 266 H POC Glucose 244 H 238 H Hemoglobin A1c Lactic Acid Calcium 8.3 L Magnesium Ferritin AST ALT Alkaline Phosphatase Lactate Dehydrogenase C-Reactive Protein Total Protein Albumin Vancomycin Trough Random Vancomycin Miscellaneous Test 01/23/20 01/24/20 01/24/20 22:57 06:03 12:12 WBC RBC Hgb Hct MCV MCH RDW Lymph % (Auto) [place] % (Auto) Eos % (Auto) Lymph # [place] # Seg Neutrophils % Seg Neuts % (Manual) Lymphocytes % (Manual) Nucleated RBC % Seg Neutrophils # Seg Neutrophils # Man Lymphocytes # (Manual) PT INR D-Dimer ABG pH ABG pO2 ABG HCO3 ABG O2 Saturation ABG Base Excess ABG Hemoglobin Oxyhemoglobin Sodium Potassium 3.2 L Chloride Carbon Dioxide 19 L BUN Creatinine Glucose 231 H POC Glucose 228 H 210 H Hemoglobin A1c Lactic Acid Calcium 8.2 L Magnesium Ferritin AST ALT Alkaline Phosphatase Lactate Dehydrogenase C-Reactive Protein Total Protein Albumin Vancomycin Trough Random Vancomycin Miscellaneous Test 01/24/20 01/24/20 01/24/20 12:50 19:01 21:49 WBC RBC Hgb Hct MCV MCH RDW Lymph % (Auto) [place] % (Auto) Eos % (Auto) Lymph # [place] # Seg Neutrophils % Seg Neuts % (Manual) Lymphocytes % (Manual) Nucleated RBC % Seg Neutrophils # Seg Neutrophils # Man Lymphocytes # (Manual) PT INR D-Dimer ABG pH 7.485 H ABG pO2 63.4 L ABG HCO3 ABG O2 Saturation ABG Base Excess ABG Hemoglobin 5.0 L Oxyhemoglobin Sodium Potassium Chloride Carbon Dioxide BUN Creatinine Glucose POC Glucose 183 H 193 H Hemoglobin A1c Lactic Acid Calcium Magnesium Ferritin AST ALT Alkaline Phosphatase Lactate Dehydrogenase C-Reactive Protein Total Protein Albumin Vancomycin Trough Random Vancomycin Miscellaneous Test 01/25/20 01/25/20 01/25/20 09:13 16:58 22:23 WBC RBC Hgb Hct MCV MCH RDW Lymph % (Auto) [place] % (Auto) Eos % (Auto) Lymph # [place] # Seg Neutrophils % Seg Neuts % (Manual) Lymphocytes % (Manual) Nucleated RBC % Seg Neutrophils # Seg Neutrophils # Man Lymphocytes # (Manual) PT INR D-Dimer ABG pH ABG pO2 ABG HCO3 ABG O2 Saturation ABG Base Excess ABG Hemoglobin Oxyhemoglobin Sodium Potassium Chloride Carbon Dioxide BUN Creatinine Glucose POC Glucose 196 H 231 H 159 H Hemoglobin A1c Lactic Acid Calcium Magnesium Ferritin AST ALT Alkaline Phosphatase Lactate Dehydrogenase C-Reactive Protein Total Protein Albumin Vancomycin Trough Random Vancomycin Miscellaneous Test 01/26/20 01/26/20 01/26/20 05:40 05:40 05:40 WBC 16.4 H RBC Hgb Hct MCV MCH 26 L RDW 12.9 L Lymph % (Auto) [place] % (Auto) Eos % (Auto) Lymph # [place] # Seg Neutrophils % Seg Neuts % (Manual) 90.0 H Lymphocytes % (Manual) 1.0 L Nucleated RBC % 1.0 H Seg Neutrophils # Seg Neutrophils # Man 14.8 H Lymphocytes # (Manual) 0.2 L PT INR D-Dimer 2624.11 H ABG pH ABG pO2 ABG HCO3 ABG O2 Saturation ABG Base Excess ABG Hemoglobin Oxyhemoglobin Sodium 135 L Potassium 2.7 L* Chloride Carbon Dioxide 21 L BUN Creatinine Glucose 132 H POC Glucose Hemoglobin A1c Lactic Acid Calcium 8.0 L Magnesium Ferritin AST ALT Alkaline Phosphatase Lactate Dehydrogenase C-Reactive Protein Total Protein Albumin Vancomycin Trough Random Vancomycin Miscellaneous Test 01/26/20 01/26/20 01/26/20 05:40 05:40 08:58 WBC RBC Hgb Hct MCV MCH RDW Lymph % (Auto) [place] % (Auto) Eos % (Auto) Lymph # [place] # Seg Neutrophils % Seg Neuts % (Manual) Lymphocytes % (Manual) Nucleated RBC % Seg Neutrophils # Seg Neutrophils # Man Lymphocytes # (Manual) PT INR D-Dimer ABG pH ABG pO2 ABG HCO3 ABG O2 Saturation ABG Base Excess ABG Hemoglobin Oxyhemoglobin Sodium Potassium Chloride Carbon Dioxide BUN Creatinine Glucose POC Glucose 131 H Hemoglobin A1c Lactic Acid Calcium Magnesium Ferritin 2758.0 H AST ALT Alkaline Phosphatase Lactate Dehydrogenase C-Reactive Protein 26.90 H Total Protein Albumin Vancomycin Trough Random Vancomycin Miscellaneous Test 01/26/20 01/26/20 01/26/20 13:00 16:30 21:22 WBC RBC Hgb Hct MCV MCH RDW Lymph % (Auto) [place] % (Auto) Eos % (Auto) Lymph # [place] # Seg Neutrophils % Seg Neuts % (Manual) Lymphocytes % (Manual) Nucleated RBC % Seg Neutrophils # Seg Neutrophils # Man Lymphocytes # (Manual) PT INR D-Dimer ABG pH ABG pO2 ABG HCO3 ABG O2 Saturation ABG Base Excess ABG Hemoglobin Oxyhemoglobin Sodium Potassium Chloride Carbon Dioxide BUN Creatinine Glucose POC Glucose 136 H 146 H 139 H Hemoglobin A1c Lactic Acid Calcium Magnesium Ferritin AST ALT Alkaline Phosphatase Lactate Dehydrogenase C-Reactive Protein Total Protein Albumin Vancomycin Trough Random Vancomycin Miscellaneous Test 01/27/20 01/27/20 01/27/20 05:14 07:37 12:05 WBC RBC Hgb Hct MCV MCH RDW Lymph % (Auto) [place] % (Auto) Eos % (Auto) Lymph # [place] # Seg Neutrophils % Seg Neuts % (Manual) Lymphocytes % (Manual) Nucleated RBC % Seg Neutrophils # Seg Neutrophils # Man Lymphocytes # (Manual) PT INR D-Dimer ABG pH ABG pO2 ABG HCO3 ABG O2 Saturation ABG Base Excess ABG Hemoglobin Oxyhemoglobin Sodium 135 L Potassium 3.4 L D Chloride Carbon Dioxide 17 L BUN 24 H Creatinine 1.4 H D Glucose 143 H POC Glucose 133 H 141 H Hemoglobin A1c Lactic Acid Calcium 7.6 L Magnesium Ferritin AST ALT Alkaline Phosphatase Lactate Dehydrogenase C-Reactive Protein Total Protein Albumin Vancomycin Trough Random Vancomycin Miscellaneous Test 01/27/20 01/27/20 01/27/20 17:37 22:14 23:53 WBC RBC Hgb Hct MCV MCH RDW Lymph % (Auto) [place] % (Auto) Eos % (Auto) Lymph # [place] # Seg Neutrophils % Seg Neuts % (Manual) Lymphocytes % (Manual) Nucleated RBC % Seg Neutrophils # Seg Neutrophils # Man Lymphocytes # (Manual) PT INR D-Dimer 2675.43 H ABG pH ABG pO2 ABG HCO3 ABG O2 Saturation ABG Base Excess ABG Hemoglobin Oxyhemoglobin Sodium Potassium Chloride Carbon Dioxide BUN Creatinine Glucose POC Glucose 153 H 124 H Hemoglobin A1c Lactic Acid Calcium Magnesium Ferritin AST ALT Alkaline Phosphatase Lactate Dehydrogenase C-Reactive Protein Total Protein Albumin Vancomycin Trough Random Vancomycin Miscellaneous Test 01/27/20 01/27/20 01/28/20 23:53 23:53 08:36 WBC RBC Hgb Hct MCV MCH RDW Lymph % (Auto) [place] % (Auto) Eos % (Auto) Lymph # [place] # Seg Neutrophils % Seg Neuts % (Manual) Lymphocytes % (Manual) Nucleated RBC % Seg Neutrophils # Seg Neutrophils # Man Lymphocytes # (Manual) PT INR D-Dimer ABG pH ABG pO2 ABG HCO3 ABG O2 Saturation ABG Base Excess ABG Hemoglobin Oxyhemoglobin Sodium Potassium Chloride Carbon Dioxide BUN Creatinine Glucose POC Glucose 165 H Hemoglobin A1c Lactic Acid Calcium Magnesium Ferritin 3523.0 H AST ALT Alkaline Phosphatase Lactate Dehydrogenase 1132 H C-Reactive Protein 15.60 H Total Protein Albumin Vancomycin Trough Random Vancomycin Miscellaneous Test 01/28/20 01/28/20 01/28/20 10:00 10:00 10:00 WBC RBC Hgb Hct MCV MCH RDW Lymph % (Auto) [place] % (Auto) Eos % (Auto) Lymph # [place] # Seg Neutrophils % Seg Neuts % (Manual) Lymphocytes % (Manual) Nucleated RBC % Seg Neutrophils # Seg Neutrophils # Man Lymphocytes # (Manual) PT INR D-Dimer ABG pH ABG pO2 ABG HCO3 ABG O2 Saturation ABG Base Excess ABG Hemoglobin Oxyhemoglobin Sodium 131 L Potassium 3.5 L Chloride Carbon Dioxide 16 L BUN 51 H Creatinine 3.5 H D Glucose 180 H POC Glucose Hemoglobin A1c Lactic Acid Calcium 7.5 L Magnesium Ferritin AST ALT Alkaline Phosphatase Lactate Dehydrogenase C-Reactive Protein Total Protein Albumin Vancomycin Trough Random Vancomycin 65.8 H Miscellaneous Test Flexitest 1 H 01/28/20 01/28/20 01/28/20 12:42 17:27 22:06 WBC RBC Hgb Hct MCV MCH RDW Lymph % (Auto) [place] % (Auto) Eos % (Auto) Lymph # [place] # Seg Neutrophils % Seg Neuts % (Manual) Lymphocytes % (Manual) Nucleated RBC % Seg Neutrophils # Seg Neutrophils # Man Lymphocytes # (Manual) PT INR D-Dimer ABG pH ABG pO2 ABG HCO3 ABG O2 Saturation ABG Base Excess ABG Hemoglobin Oxyhemoglobin Sodium Potassium Chloride Carbon Dioxide BUN Creatinine Glucose POC Glucose 188 H 161 H 158 H Hemoglobin A1c Lactic Acid Calcium Magnesium Ferritin AST ALT Alkaline Phosphatase Lactate Dehydrogenase C-Reactive Protein Total Protein Albumin Vancomycin Trough Random Vancomycin Miscellaneous Test 01/29/20 01/29/20 01/29/20 07:29 07:29 08:20 WBC 17.0 H RBC Hgb 9.6 L Hct 29.5 L MCV MCH 26 L RDW Lymph % (Auto) [place] % (Auto) Eos % (Auto) Lymph # [place] # Seg Neutrophils % Seg Neuts % (Manual) Lymphocytes % (Manual) Nucleated RBC % Seg Neutrophils # Seg Neutrophils # Man Lymphocytes # (Manual) PT INR D-Dimer ABG pH ABG pO2 ABG HCO3 ABG O2 Saturation ABG Base Excess ABG Hemoglobin Oxyhemoglobin Sodium 133 L Potassium Chloride Carbon Dioxide 15 L BUN 69 H Creatinine 4.1 H Glucose 161 H POC Glucose 170 H Hemoglobin A1c Lactic Acid Calcium 7.6 L Magnesium Ferritin AST ALT Alkaline Phosphatase Lactate Dehydrogenase C-Reactive Protein Total Protein Albumin Vancomycin Trough Random Vancomycin Miscellaneous Test 01/29/20 01/29/20 01/29/20 11:54 11:54 11:54 WBC RBC Hgb Hct MCV MCH RDW Lymph % (Auto) [place] % (Auto) Eos % (Auto) Lymph # [place] # Seg Neutrophils % Seg Neuts % (Manual) Lymphocytes % (Manual) Nucleated RBC % Seg Neutrophils # Seg Neutrophils # Man Lymphocytes # (Manual) PT INR D-Dimer 1499 H ABG pH ABG pO2 ABG HCO3 ABG O2 Saturation ABG Base Excess ABG Hemoglobin Oxyhemoglobin Sodium Potassium Chloride Carbon Dioxide BUN Creatinine Glucose POC Glucose Hemoglobin A1c Lactic Acid Calcium Magnesium Ferritin > 2000.0 H AST ALT Alkaline Phosphatase Lactate Dehydrogenase 946 H C-Reactive Protein 13.30 H Total Protein Albumin Vancomycin Trough Random Vancomycin Miscellaneous Test 01/29/20 01/29/20 01/29/20 12:55 16:19 22:13 WBC RBC Hgb Hct MCV MCH RDW Lymph % (Auto) [place] % (Auto) Eos % (Auto) Lymph # [place] # Seg Neutrophils % Seg Neuts % (Manual) Lymphocytes % (Manual) Nucleated RBC % Seg Neutrophils # Seg Neutrophils # Man Lymphocytes # (Manual) PT INR D-Dimer ABG pH ABG pO2 ABG HCO3 ABG O2 Saturation ABG Base Excess ABG Hemoglobin Oxyhemoglobin Sodium Potassium Chloride Carbon Dioxide BUN Creatinine Glucose POC Glucose 142 H 146 H 142 H Hemoglobin A1c Lactic Acid Calcium Magnesium Ferritin AST ALT Alkaline Phosphatase Lactate Dehydrogenase C-Reactive Protein Total Protein Albumin Vancomycin Trough Random Vancomycin Miscellaneous Test 01/30/20 01/30/20 01/30/20 05:19 05:19 08:04 WBC RBC Hgb Hct MCV MCH RDW Lymph % (Auto) [place] % (Auto) Eos % (Auto) Lymph # [place] # Seg Neutrophils % Seg Neuts % (Manual) Lymphocytes % (Manual) Nucleated RBC % Seg Neutrophils # Seg Neutrophils # Man Lymphocytes # (Manual) PT INR D-Dimer ABG pH ABG pO2 ABG HCO3 ABG O2 Saturation ABG Base Excess ABG Hemoglobin Oxyhemoglobin Sodium 134 L Potassium Chloride Carbon Dioxide 14 L BUN 87 H Creatinine 4.4 H Glucose 172 H POC Glucose 153 H Hemoglobin A1c Lactic Acid Calcium 7.6 L Magnesium Ferritin AST 152 H ALT 124 H Alkaline Phosphatase Lactate Dehydrogenase C-Reactive Protein Total Protein 5.5 L Albumin 1.8 L Vancomycin Trough 45.4 H Random Vancomycin Miscellaneous Test 01/30/20 01/30/20 01/30/20 12:21 16:51 22:54 WBC RBC Hgb Hct MCV MCH RDW Lymph % (Auto) [place] % (Auto) Eos % (Auto) Lymph # [place] # Seg Neutrophils % Seg Neuts % (Manual) Lymphocytes % (Manual) Nucleated RBC % Seg Neutrophils # Seg Neutrophils # Man Lymphocytes # (Manual) PT INR D-Dimer ABG pH ABG pO2 ABG HCO3 ABG O2 Saturation ABG Base Excess ABG Hemoglobin Oxyhemoglobin Sodium Potassium Chloride Carbon Dioxide BUN Creatinine Glucose POC Glucose 147 H 119 H 129 H Hemoglobin A1c Lactic Acid Calcium Magnesium Ferritin AST ALT Alkaline Phosphatase Lactate Dehydrogenase C-Reactive Protein Total Protein Albumin Vancomycin Trough Random Vancomycin Miscellaneous Test 01/31/20 01/31/20 01/31/20 03:49 03:49 03:49 WBC RBC Hgb Hct MCV MCH RDW Lymph % (Auto) [place] % (Auto) Eos % (Auto) Lymph # [place] # Seg Neutrophils % Seg Neuts % (Manual) Lymphocytes % (Manual) Nucleated RBC % Seg Neutrophils # Seg Neutrophils # Man Lymphocytes # (Manual) PT INR D-Dimer 801.37 H ABG pH ABG pO2 ABG HCO3 ABG O2 Saturation ABG Base Excess ABG Hemoglobin Oxyhemoglobin Sodium 134 L Potassium Chloride Carbon Dioxide 13 L BUN 97 H Creatinine 4.8 H Glucose 123 H POC Glucose Hemoglobin A1c Lactic Acid Calcium 7.6 L Magnesium Ferritin 3101.0 H AST 112 H ALT 112 H Alkaline Phosphatase 145 H Lactate Dehydrogenase 896 H C-Reactive Protein 11.10 H Total Protein 5.5 L Albumin 1.7 L Vancomycin Trough Random Vancomycin Miscellaneous Test 01/31/20 01/31/20 01/31/20 03:49 08:00 11:48 WBC 16.1 H RBC Hgb Hct MCV MCH 25 L RDW Lymph % (Auto) [place] % (Auto) Eos % (Auto) Lymph # [place] # Seg Neutrophils % Seg Neuts % (Manual) Lymphocytes % (Manual) Nucleated RBC % Seg Neutrophils # Seg Neutrophils # Man Lymphocytes # (Manual) PT INR D-Dimer ABG pH ABG pO2 ABG HCO3 ABG O2 Saturation ABG Base Excess ABG Hemoglobin Oxyhemoglobin Sodium Potassium Chloride Carbon Dioxide BUN Creatinine Glucose POC Glucose 133 H 136 H Hemoglobin A1c Lactic Acid Calcium Magnesium Ferritin AST ALT Alkaline Phosphatase Lactate Dehydrogenase C-Reactive Protein Total Protein Albumin Vancomycin Trough Random Vancomycin Miscellaneous Test 01/31/20 01/31/20 01/31/20 16:14 21:37 22:35 WBC RBC Hgb Hct MCV MCH RDW Lymph % (Auto) [place] % (Auto) Eos % (Auto) Lymph # [place] # Seg Neutrophils % Seg Neuts % (Manual) Lymphocytes % (Manual) Nucleated RBC % Seg Neutrophils # Seg Neutrophils # Man Lymphocytes # (Manual) PT INR D-Dimer ABG pH 7.226 L ABG pO2 77.9 L ABG HCO3 15.2 L ABG O2 Saturation 93.5 L ABG Base Excess -11.6 L ABG Hemoglobin Oxyhemoglobin 91.5 L Sodium Potassium Chloride Carbon Dioxide BUN Creatinine Glucose POC Glucose 151 H 179 H Hemoglobin A1c Lactic Acid Calcium Magnesium Ferritin AST ALT Alkaline Phosphatase Lactate Dehydrogenase C-Reactive Protein Total Protein Albumin Vancomycin Trough Random Vancomycin Miscellaneous Test 02/01/20 02/01/20 02/01/20 03:49 03:49 04:30 WBC 19.3 H RBC 3.53 L Hgb 9.0 L Hct 28.1 L MCV MCH 26 L RDW Lymph % (Auto) [place] % (Auto) Eos % (Auto) Lymph # [place] # Seg Neutrophils % Seg Neuts % (Manual) Lymphocytes % (Manual) Nucleated RBC % Seg Neutrophils # Seg Neutrophils # Man Lymphocytes # (Manual) PT INR D-Dimer ABG pH 7.290 L ABG pO2 120.0 H ABG HCO3 14.2 L ABG O2 Saturation ABG Base Excess -11.2 L ABG Hemoglobin 9.3 L Oxyhemoglobin Sodium 135 L Potassium Chloride Carbon Dioxide 13 L BUN 79 H Creatinine 4.1 H Glucose 198 H POC Glucose Hemoglobin A1c Lactic Acid Calcium 7.0 L Magnesium Ferritin AST ALT Alkaline Phosphatase Lactate Dehydrogenase C-Reactive Protein Total Protein Albumin Vancomycin Trough Random Vancomycin Miscellaneous Test 02/01/20 02/01/20 02/02/20 08:13 11:29 00:05 WBC RBC Hgb Hct MCV MCH RDW Lymph % (Auto) [place] % (Auto) Eos % (Auto) Lymph # [place] # Seg Neutrophils % Seg Neuts % (Manual) Lymphocytes % (Manual) Nucleated RBC % Seg Neutrophils # Seg Neutrophils # Man Lymphocytes # (Manual) PT INR D-Dimer ABG pH ABG pO2 ABG HCO3 ABG O2 Saturation ABG Base Excess ABG Hemoglobin Oxyhemoglobin Sodium Potassium Chloride Carbon Dioxide BUN Creatinine Glucose POC Glucose 153 H 181 H 214 H Hemoglobin A1c Lactic Acid Calcium Magnesium Ferritin AST ALT Alkaline Phosphatase Lactate Dehydrogenase C-Reactive Protein Total Protein Albumin Vancomycin Trough Random Vancomycin Miscellaneous Test 02/02/20 02/02/20 02/02/20 04:17 04:30 04:30 WBC RBC Hgb Hct MCV MCH RDW Lymph % (Auto) [place] % (Auto) Eos % (Auto) Lymph # [place] # Seg Neutrophils % Seg Neuts % (Manual) Lymphocytes % (Manual) Nucleated RBC % Seg Neutrophils # Seg Neutrophils # Man Lymphocytes # (Manual) PT INR D-Dimer 795.93 H ABG pH ABG pO2 ABG HCO3 ABG O2 Saturation ABG Base Excess -3.0 L ABG Hemoglobin 8.5 L Oxyhemoglobin Sodium Potassium Chloride Carbon Dioxide BUN Creatinine Glucose POC Glucose Hemoglobin A1c Lactic Acid Calcium Magnesium Ferritin 1978.0 H AST ALT Alkaline Phosphatase Lactate Dehydrogenase C-Reactive Protein Total Protein Albumin Vancomycin Trough Random Vancomycin Miscellaneous Test 02/02/20 02/02/20 02/02/20 04:30 04:30 05:34 WBC 17.3 H RBC 3.24 L Hgb 8.4 L Hct 24.9 L MCV 77 L MCH 26 L RDW Lymph % (Auto) [place] % (Auto) Eos % (Auto) Lymph # [place] # Seg Neutrophils % Seg Neuts % (Manual) Lymphocytes % (Manual) Nucleated RBC % Seg Neutrophils # Seg Neutrophils # Man Lymphocytes # (Manual) PT INR D-Dimer ABG pH ABG pO2 ABG HCO3 ABG O2 Saturation ABG Base Excess ABG Hemoglobin Oxyhemoglobin Sodium Potassium Chloride Carbon Dioxide 17 L BUN 61 H Creatinine 4.1 H Glucose 244 H POC Glucose 274 H Hemoglobin A1c Lactic Acid Calcium 7.2 L Magnesium Ferritin AST ALT Alkaline Phosphatase Lactate Dehydrogenase 841 H C-Reactive Protein 11.50 H Total Protein Albumin Vancomycin Trough Random Vancomycin Miscellaneous Test 02/02/20 02/02/20 02/02/20 12:26 18:06 23:37 WBC RBC Hgb Hct MCV MCH RDW Lymph % (Auto) [place] % (Auto) Eos % (Auto) Lymph # [place] # Seg Neutrophils % Seg Neuts % (Manual) Lymphocytes % (Manual) Nucleated RBC % Seg Neutrophils # Seg Neutrophils # Man Lymphocytes # (Manual) PT INR D-Dimer ABG pH ABG pO2 ABG HCO3 ABG O2 Saturation ABG Base Excess ABG Hemoglobin Oxyhemoglobin Sodium Potassium Chloride Carbon Dioxide BUN Creatinine Glucose POC Glucose 254 H 285 H 239 H Hemoglobin A1c Lactic Acid Calcium Magnesium Ferritin AST ALT Alkaline Phosphatase Lactate Dehydrogenase C-Reactive Protein Total Protein Albumin Vancomycin Trough Random Vancomycin Miscellaneous Test 02/03/20 02/03/20 02/03/20 04:40 04:56 10:41 WBC RBC Hgb Hct MCV MCH RDW Lymph % (Auto) [place] % (Auto) Eos % (Auto) Lymph # [place] # Seg Neutrophils % Seg Neuts % (Manual) Lymphocytes % (Manual) Nucleated RBC % Seg Neutrophils # Seg Neutrophils # Man Lymphocytes # (Manual) PT INR D-Dimer ABG pH 7.520 H ABG pO2 73.8 L 92.5 H ABG HCO3 ABG O2 Saturation ABG Base Excess ABG Hemoglobin 8.6 L 7.9 L Oxyhemoglobin Sodium Potassium Chloride Carbon Dioxide BUN Creatinine Glucose POC Glucose 227 H Hemoglobin A1c Lactic Acid Calcium Magnesium Ferritin AST ALT Alkaline Phosphatase Lactate Dehydrogenase C-Reactive Protein Total Protein Albumin Vancomycin Trough Random Vancomycin Miscellaneous Test 02/03/20 02/03/20 02/03/20 12:09 17:23 23:41 WBC RBC Hgb Hct MCV MCH RDW Lymph % (Auto) [place] % (Auto) Eos % (Auto) Lymph # [place] # Seg Neutrophils % Seg Neuts % (Manual) Lymphocytes % (Manual) Nucleated RBC % Seg Neutrophils # Seg Neutrophils # Man Lymphocytes # (Manual) PT INR D-Dimer ABG pH ABG pO2 ABG HCO3 ABG O2 Saturation ABG Base Excess ABG Hemoglobin Oxyhemoglobin Sodium Potassium Chloride Carbon Dioxide BUN Creatinine Glucose POC Glucose 268 H 255 H 239 H Hemoglobin A1c Lactic Acid Calcium Magnesium Ferritin AST ALT Alkaline Phosphatase Lactate Dehydrogenase C-Reactive Protein Total Protein Albumin Vancomycin Trough Random Vancomycin Miscellaneous Test 02/04/20 02/04/20 02/04/20 04:31 04:42 04:42 WBC RBC Hgb Hct MCV MCH RDW Lymph % (Auto) [place] % (Auto) Eos % (Auto) Lymph # [place] # Seg Neutrophils % Seg Neuts % (Manual) Lymphocytes % (Manual) Nucleated RBC % Seg Neutrophils # Seg Neutrophils # Man Lymphocytes # (Manual) PT INR D-Dimer 694.19 H ABG pH ABG pO2 ABG HCO3 ABG O2 Saturation ABG Base Excess ABG Hemoglobin Oxyhemoglobin Sodium Potassium Chloride Carbon Dioxide BUN Creatinine Glucose POC Glucose 216 H Hemoglobin A1c Lactic Acid Calcium Magnesium Ferritin 1660.0 H AST ALT Alkaline Phosphatase Lactate Dehydrogenase C-Reactive Protein Total Protein Albumin Vancomycin Trough Random Vancomycin Miscellaneous Test 02/04/20 02/04/20 02/04/20 04:42 04:42 12:03 WBC 13.7 H RBC 2.92 L Hgb 7.4 L Hct 23.0 L MCV MCH 25 L RDW Lymph % (Auto) [place] % (Auto) Eos % (Auto) Lymph # [place] # Seg Neutrophils % Seg Neuts % (Manual) Lymphocytes % (Manual) Nucleated RBC % Seg Neutrophils # Seg Neutrophils # Man Lymphocytes # (Manual) PT INR D-Dimer ABG pH ABG pO2 ABG HCO3 ABG O2 Saturation ABG Base Excess ABG Hemoglobin Oxyhemoglobin Sodium Potassium Chloride Carbon Dioxide 17 L BUN 80 H Creatinine 5.8 H Glucose 209 H POC Glucose 248 H Hemoglobin A1c Lactic Acid Calcium 8.3 L D Magnesium Ferritin AST ALT Alkaline Phosphatase Lactate Dehydrogenase 972 H C-Reactive Protein 6.20 H Total Protein Albumin Vancomycin Trough Random Vancomycin Miscellaneous Test 02/04/20 02/04/20 02/04/20 17:42 23:48 Unknown WBC RBC Hgb Hct MCV MCH RDW Lymph % (Auto) [place] % (Auto) Eos % (Auto) Lymph # [place] # Seg Neutrophils % Seg Neuts % (Manual) Lymphocytes % (Manual) Nucleated RBC % Seg Neutrophils # Seg Neutrophils # Man Lymphocytes # (Manual) PT INR D-Dimer ABG pH 7.484 H ABG pO2 104.8 H ABG HCO3 ABG O2 Saturation ABG Base Excess ABG Hemoglobin 9.5 L Oxyhemoglobin Sodium Potassium Chloride Carbon Dioxide BUN Creatinine Glucose POC Glucose 209 H 166 H Hemoglobin A1c Lactic Acid Calcium Magnesium Ferritin AST ALT Alkaline Phosphatase Lactate Dehydrogenase C-Reactive Protein Total Protein Albumin Vancomycin Trough Random Vancomycin Miscellaneous Test 02/05/20 02/05/20 02/05/20 03:51 03:51 05:43 WBC 13.9 H RBC 2.98 L Hgb 7.6 L Hct 23.4 L MCV MCH 26 L RDW Lymph % (Auto) [place] % (Auto) Eos % (Auto) Lymph # [place] # Seg Neutrophils % Seg Neuts % (Manual) Lymphocytes % (Manual) Nucleated RBC % Seg Neutrophils # Seg Neutrophils # Man Lymphocytes # (Manual) PT INR D-Dimer ABG pH ABG pO2 ABG HCO3 ABG O2 Saturation ABG Base Excess ABG Hemoglobin Oxyhemoglobin Sodium Potassium Chloride Carbon Dioxide 19 L BUN 65 H Creatinine 5.9 H Glucose 167 H POC Glucose 148 H Hemoglobin A1c Lactic Acid Calcium 8.3 L Magnesium Ferritin AST ALT Alkaline Phosphatase Lactate Dehydrogenase C-Reactive Protein Total Protein Albumin Vancomycin Trough Random Vancomycin Miscellaneous Test 02/05/20 02/05/20 02/05/20 12:34 18:55 23:48 WBC RBC Hgb Hct MCV MCH RDW Lymph % (Auto) [place] % (Auto) Eos % (Auto) Lymph # [place] # Seg Neutrophils % Seg Neuts % (Manual) Lymphocytes % (Manual) Nucleated RBC % Seg Neutrophils # Seg Neutrophils # Man Lymphocytes # (Manual) PT INR D-Dimer ABG pH ABG pO2 ABG HCO3 ABG O2 Saturation ABG Base Excess ABG Hemoglobin Oxyhemoglobin Sodium Potassium Chloride Carbon Dioxide BUN Creatinine Glucose POC Glucose 267 H 166 H 241 H Hemoglobin A1c Lactic Acid Calcium Magnesium Ferritin AST ALT Alkaline Phosphatase Lactate Dehydrogenase C-Reactive Protein Total Protein Albumin Vancomycin Trough Random Vancomycin Miscellaneous Test 02/05/20 02/06/20 02/06/20 Unknown 03:38 03:38 WBC RBC Hgb Hct MCV MCH RDW Lymph % (Auto) [place] % (Auto) Eos % (Auto) Lymph # [place] # Seg Neutrophils % Seg Neuts % (Manual) Lymphocytes % (Manual) Nucleated RBC % Seg Neutrophils # Seg Neutrophils # Man Lymphocytes # (Manual) PT INR D-Dimer 1067.61 H ABG pH 7.497 H ABG pO2 111.6 H ABG HCO3 ABG O2 Saturation ABG Base Excess ABG Hemoglobin 7.4 L Oxyhemoglobin Sodium Potassium Chloride Carbon Dioxide BUN Creatinine Glucose POC Glucose Hemoglobin A1c Lactic Acid Calcium Magnesium Ferritin 1277.0 H AST ALT Alkaline Phosphatase Lactate Dehydrogenase C-Reactive Protein Total Protein Albumin Vancomycin Trough Random Vancomycin Miscellaneous Test 02/06/20 02/06/20 02/06/20 03:38 03:38 06:04 WBC 13.8 H RBC 3.16 L Hgb 8.0 L Hct 25.7 L MCV MCH 25 L RDW Lymph % (Auto) [place] % (Auto) Eos % (Auto) Lymph # [place] # Seg Neutrophils % Seg Neuts % (Manual) Lymphocytes % (Manual) Nucleated RBC % Seg Neutrophils # Seg Neutrophils # Man Lymphocytes # (Manual) PT INR D-Dimer ABG pH ABG pO2 ABG HCO3 ABG O2 Saturation ABG Base Excess ABG Hemoglobin Oxyhemoglobin Sodium Potassium Chloride Carbon Dioxide 21 L BUN 66 H Creatinine 6.0 H Glucose 213 H POC Glucose 232 H Hemoglobin A1c Lactic Acid Calcium Magnesium Ferritin AST ALT Alkaline Phosphatase Lactate Dehydrogenase 48 L C-Reactive Protein Total Protein Albumin Vancomycin Trough Random Vancomycin Miscellaneous Test 02/06/20 02/06/20 02/06/20 11:54 17:34 22:20 WBC RBC Hgb Hct MCV MCH RDW Lymph % (Auto) [place] % (Auto) Eos % (Auto) Lymph # [place] # Seg Neutrophils % Seg Neuts % (Manual) Lymphocytes % (Manual) Nucleated RBC % Seg Neutrophils # Seg Neutrophils # Man Lymphocytes # (Manual) PT INR D-Dimer ABG pH ABG pO2 ABG HCO3 ABG O2 Saturation ABG Base Excess ABG Hemoglobin Oxyhemoglobin Sodium Potassium Chloride Carbon Dioxide BUN Creatinine Glucose POC Glucose 230 H 220 H 262 H Hemoglobin A1c Lactic Acid Calcium Magnesium Ferritin AST ALT Alkaline Phosphatase Lactate Dehydrogenase C-Reactive Protein Total Protein Albumin Vancomycin Trough Random Vancomycin Miscellaneous Test 02/07/20 02/07/20 02/07/20 05:05 05:05 05:24 WBC 15.0 H RBC 3.30 L Hgb 8.3 L Hct 26.6 L MCV MCH 25 L RDW Lymph % (Auto) [place] % (Auto) Eos % (Auto) Lymph # [place] # Seg Neutrophils % Seg Neuts % (Manual) Lymphocytes % (Manual) Nucleated RBC % Seg Neutrophils # Seg Neutrophils # Man Lymphocytes # (Manual) PT INR D-Dimer ABG pH ABG pO2 ABG HCO3 ABG O2 Saturation ABG Base Excess ABG Hemoglobin Oxyhemoglobin Sodium Potassium Chloride Carbon Dioxide BUN 63 H Creatinine 6.1 H Glucose 231 H POC Glucose 192 H Hemoglobin A1c Lactic Acid Calcium Magnesium Ferritin AST ALT Alkaline Phosphatase Lactate Dehydrogenase C-Reactive Protein Total Protein Albumin Vancomycin Trough Random Vancomycin Miscellaneous Test 02/07/20 02/07/20 02/07/20 12:07 16:45 22:44 WBC RBC Hgb Hct MCV MCH RDW Lymph % (Auto) [place] % (Auto) Eos % (Auto) Lymph # [place] # Seg Neutrophils % Seg Neuts % (Manual) Lymphocytes % (Manual) Nucleated RBC % Seg Neutrophils # Seg Neutrophils # Man Lymphocytes # (Manual) PT INR D-Dimer ABG pH ABG pO2 ABG HCO3 ABG O2 Saturation ABG Base Excess ABG Hemoglobin Oxyhemoglobin Sodium Potassium Chloride Carbon Dioxide BUN Creatinine Glucose POC Glucose 218 H 191 H 172 H Hemoglobin A1c Lactic Acid Calcium Magnesium Ferritin AST ALT Alkaline Phosphatase Lactate Dehydrogenase C-Reactive Protein Total Protein Albumin Vancomycin Trough Random Vancomycin Miscellaneous Test 02/08/20 02/08/20 02/08/20 04:57 04:57 04:57 WBC RBC Hgb Hct MCV MCH RDW Lymph % (Auto) [place] % (Auto) Eos % (Auto) Lymph # [place] # Seg Neutrophils % Seg Neuts % (Manual) Lymphocytes % (Manual) Nucleated RBC % Seg Neutrophils # Seg Neutrophils # Man Lymphocytes # (Manual) PT INR D-Dimer 1210.49 H ABG pH ABG pO2 ABG HCO3 ABG O2 Saturation ABG Base Excess ABG Hemoglobin Oxyhemoglobin Sodium Potassium Chloride Carbon Dioxide BUN Creatinine Glucose POC Glucose Hemoglobin A1c Lactic Acid Calcium Magnesium Ferritin 850.8 H AST ALT Alkaline Phosphatase Lactate Dehydrogenase 864 H C-Reactive Protein 5.50 H Total Protein Albumin Vancomycin Trough Random Vancomycin Miscellaneous Test 02/08/20 02/08/20 02/08/20 06:33 11:50 17:06 WBC RBC Hgb Hct MCV MCH RDW Lymph % (Auto) [place] % (Auto) Eos % (Auto) Lymph # [place] # Seg Neutrophils % Seg Neuts % (Manual) Lymphocytes % (Manual) Nucleated RBC % Seg Neutrophils # Seg Neutrophils # Man Lymphocytes # (Manual) PT INR D-Dimer ABG pH ABG pO2 ABG HCO3 ABG O2 Saturation ABG Base Excess ABG Hemoglobin Oxyhemoglobin Sodium Potassium Chloride Carbon Dioxide BUN Creatinine Glucose POC Glucose 178 H 166 H 170 H Hemoglobin A1c Lactic Acid Calcium Magnesium Ferritin AST ALT Alkaline Phosphatase Lactate Dehydrogenase C-Reactive Protein Total Protein Albumin Vancomycin Trough Random Vancomycin Miscellaneous Test 02/08/20 02/09/20 02/09/20 23:43 04:47 05:27 WBC RBC 3.20 L Hgb 8.4 L Hct 25.6 L MCV MCH 26 L RDW Lymph % (Auto) 13.0 L [place] % (Auto) 11.8 H Eos % (Auto) 4.5 H Lymph # 1.1 L [place] # 1.0 H Seg Neutrophils % 70.2 H Seg Neuts % (Manual) Lymphocytes % (Manual) Nucleated RBC % Seg Neutrophils # Seg Neutrophils # Man Lymphocytes # (Manual) PT INR D-Dimer ABG pH ABG pO2 ABG HCO3 ABG O2 Saturation ABG Base Excess ABG Hemoglobin Oxyhemoglobin Sodium Potassium Chloride Carbon Dioxide BUN Creatinine Glucose POC Glucose 110 H 154 H Hemoglobin A1c Lactic Acid Calcium Magnesium Ferritin AST ALT Alkaline Phosphatase Lactate Dehydrogenase C-Reactive Protein Total Protein Albumin Vancomycin Trough Random Vancomycin Miscellaneous Test 02/09/20 02/09/20 05:27 11:23 WBC RBC Hgb Hct MCV MCH RDW Lymph % (Auto) [place] % (Auto) Eos % (Auto) Lymph # [place] # Seg Neutrophils % Seg Neuts % (Manual) Lymphocytes % (Manual) Nucleated RBC % Seg Neutrophils # Seg Neutrophils # Man Lymphocytes # (Manual) PT INR D-Dimer ABG pH ABG pO2 ABG HCO3 ABG O2 Saturation ABG Base Excess ABG Hemoglobin Oxyhemoglobin Sodium Potassium Chloride 96.9 L Carbon Dioxide BUN 57 H Creatinine 5.9 H Glucose 165 H POC Glucose 177 H Hemoglobin A1c Lactic Acid Calcium Magnesium Ferritin AST ALT Alkaline Phosphatase Lactate Dehydrogenase C-Reactive Protein Total Protein Albumin Vancomycin Trough Random Vancomycin Miscellaneous Test
--- NOTE | 2020-02-09 18:20 | Progress Note ---
Assessment and Plan Assessment and plan: January 24 the patient results for COVID 19 came back positive. 01/28: In addition to treatment as noted below patient was noted to have indurated area in the left thigh, Concerning for abscess development. Will obtain CT of the lower extremity 01/29: Patient noted hypotensive. She is refusing her p.o. week to be placed she sustained a fall overnight while trying to walk to the bathroom. CT of the lower extremity still pending we will proceed with consult to surgeons. We will discontinue all blood pressure medications give a bolus of fluid while mindful of possible developing ARDS. We will also obtain repeated chest x-ray as patient appears more toxic today. 01/31: Patient reintubated about 30 minutes after surgical procedure due to decompensation with hypotension and hypoxemia despite 100% oxygen and CPAP. Patient remains currently on the vent. We will continue dialysis. While client finance analyst assist with managing ventilator. We will continue to adjust blood sugar for better control. Patient is critically ill this has been conveyed to the family prior. 02/01: Mild improvement in inflammatory markers and chest x-ray. Otherwise patient still remains on mechanical ventilation still at high risk for ARDS mitigation processes are in place and plan. Continue aggressive management. She unfortunately still with low-grade intermittent fevers. Despite improvement in WBC. 02/02: Clinically stable wound VAC remains in place and functioning. Trial of CPAP today. Will recheck labs in a.m. inflammatory markers continue to improve ferritin is down to the 1900 range. 02/03: Inflammatory markers appear to be improving. There is some mild trickling down of hemoglobin we will continue to monitor this. Patient continues to tolerate dialysis. 02/04: Extubated, updated family. Continue aggressive management, wound care nurse dressed wound change dressing noted today good viable wound bed noted. As patient continues to improve we will consider transfer to [facility] in a.m. Inflammatory markers now improving. 02/05: Continues to improve, awaiting to have speech testing done. Patient doing well on oxygen post extubation. Continue aggressive wound management. Discussed with CM about transfer to [facility] if [facility] will accept because patient has a long recovery ahead. 02/06 : On 2 L nasal cannula oxygen , saturating 94-95% Discussed extensively with Ms. Anh Varma at [phone] She has numerous questions and concerns , addressed all of them discharge planning per case management. possible LTAC placement 02/07: Awaiting LTAC placement, LTAC requires 2 neg Covid 19 tests to consider admission. Will check with ID --COVID 19 induced pneumonia Acute on chronic respiratory failure requiring mechanical ventilation s/p extubation, continue nasal cannula oxygen --Severe Sepsis/due to cough with pneumonia --Multiple Organ involvement/poor prognosis --Acute metabolic encephalopathy; Multifactorial, supportive care --Left thigh abscess status post I&D --Diabetic foot wound nonhealing --Morbid obesity hypoventilation syndrome --Acute kidney injury secondary to vasomotor nephropathy HD MWF, nephrology following --Anemia; of chronic kidney disease Closely monitor H&H and transfuse as needed --Hyponatremia-resolved, monitor electrolytes --Type II diabetes mellitus with uncontrolled blood sugar Accu-Chek sliding scale coverage ADA diet and insulin --Morbid obesity; BMI 44.8 --Hypertension monitor closely for septic shock --Severe protein calorie malnutrition: Secondary to underlying disease process Nutrition supplements nutrition consult --Dysphagia; patient needs PEG placement --DC planning; per case management -Outpatient HD chair scheduling -PEG tube placement -Possible LTAC placement -LTAC requires 2neg Covid tests Monitor closely and adjust the management as needed The high probability of a clinically significant, sudden or life threatening deterioration of the [pulmonary, renal, infectious, GI, metabolic, endocrine] system(s) required my full and direct attention, intervention and personal management. The aggregate critical care time was [33] minutes. This time is in addition to time spent performing reported procedures but includes the following: [x] Data Review and interpretation [x] Patient assessment and monitoring of vital signs [x] Documentation [x] Medication orders and management History Interval history: Covid positive, critically ill Awaiting LTAC placement Vital signs reviewed Patient's chart, tests, nurses and consultants evaluation Reviewed In contact and droplet isolation PUI?: No COVID19: Positive Hospitalist Physical - Physical exam Narrative exam: Limited exam due to shortage of PPE Agree with physical exam of consultants/nurse - Constitutional Vitals: Temp Pulse Resp BP Pulse Ox 98.2 F 83 20 156/92 100 02/09/20 10:54 02/09/20 10:54 02/09/20 10:54 02/09/20 10:54 02/09/20 10:54 General appearance: Present: mild distress, well-nourished, obese (Morbidly obese) - EENT ENT: other - Neck Neck: Present: other (Not done not done) - Respiratory Respiratory effort: other (No PPE) - Extremities Extremity abnormal: other - Abdominal General gastrointestinal: other - Psychiatric Psychiatric: other (Not done) Results - Labs CBC & Chem 7: 02/09/20 05:27 02/09/20 05:27 Labs: Laboratory Last Values WBC 8.6 K/mm3 (4.5-11.0) 02/09/20 05:27 RBC 3.20 M/mm3 (3.65-5.03) L 02/09/20 05:27 Hgb 8.4 gm/dl (10.1-14.3) L 02/09/20 05:27 Hct 25.6 % (30.3-42.9) L 02/09/20 05:27 MCV 80 fl (79-97) 02/09/20 05:27 MCH 26 pg (28-32) L 02/09/20 05:27 MCHC 33 % (30-34) 02/09/20 05:27 RDW 13.7 % (13.2-15.2) 02/09/20 05:27 Plt Count 186 K/mm3 (140-440) 02/09/20 05:27 Lymph % (Auto) 13.0 % (13.4-35.0) L 02/09/20 05:27 Riley % (Auto) 11.8 % (0.0-7.3) H 02/09/20 05:27 Eos % (Auto) 4.5 % (0.0-4.3) H 02/09/20 05:27 Baso % (Auto) 0.5 % (0.0-1.8) 02/09/20 05:27 Lymph # 1.1 K/mm3 (1.2-5.4) L 02/09/20 05:27 Riley # 1.0 K/mm3 (0.0-0.8) H 02/09/20 05:27 Eos # 0.4 K/mm3 (0.0-0.4) 02/09/20 05:27 Baso # 0.0 K/mm3 (0.0-0.1) 02/09/20 05:27 Add Manual Diff Complete 01/26/20 05:40 Total Counted 100 01/26/20 05:40 Seg Neutrophils % 70.2 % (40.0-70.0) H 02/09/20 05:27 Seg Neuts % (Manual) 90.0 % (40.0-70.0) H 01/26/20 05:40 Band Neutrophils % 5.0 % 01/26/20 05:40 Lymphocytes % (Manual) 1.0 % (13.4-35.0) L 01/26/20 05:40 Reactive Lymphs % (Man) 0 % 01/26/20 05:40 Monocytes % (Manual) 2.0 % (0.0-7.3) 01/26/20 05:40 Eosinophils % (Manual) 2.0 % (0.0-4.3) 01/26/20 05:40 Basophils % (Manual) 0 % (0.0-1.8) 01/26/20 05:40 Metamyelocytes % 0 % 01/26/20 05:40 Myelocytes % 0 % 01/26/20 05:40 Promyelocytes % 0 % 01/26/20 05:40 Blast Cells % 0 % 01/26/20 05:40 Nucleated RBC % 1.0 % (0.0-0.9) H 01/26/20 05:40 Seg Neutrophils # 6.0 K/mm3 (1.8-7.7) 02/09/20 05:27 Seg Neutrophils # Man 14.8 K/mm3 (1.8-7.7) H 01/26/20 05:40 Band Neutrophils # 0.8 K/mm3 01/26/20 05:40 Lymphocytes # (Manual) 0.2 K/mm3 (1.2-5.4) L 01/26/20 05:40 Abs React Lymphs (Man) 0.0 K/mm3 01/26/20 05:40 Monocytes # (Manual) 0.3 K/mm3 (0.0-0.8) 01/26/20 05:40 Eosinophils # (Manual) 0.3 K/mm3 (0.0-0.4) 01/26/20 05:40 Basophils # (Manual) 0.0 K/mm3 (0.0-0.1) 01/26/20 05:40 Metamyelocytes # 0.0 K/mm3 01/26/20 05:40 Myelocytes # 0.0 K/mm3 01/26/20 05:40 Promyelocytes # 0.0 K/mm3 01/26/20 05:40 Blast Cells # 0.0 K/mm3 01/26/20 05:40 WBC Morphology Not Reportable 01/26/20 05:40 Hypersegmented Neuts Not Reportable 01/26/20 05:40 Hyposegmented Neuts Not Reportable 01/26/20 05:40 Hypogranular Neuts Not Reportable 01/26/20 05:40 Smudge Cells Not Reportable 01/26/20 05:40 Toxic Granulation Not Reportable 01/26/20 05:40 Toxic Vacuolation Not Reportable 01/26/20 05:40 Dohle Bodies Not Reportable 01/26/20 05:40 Pelger-Huet Anomaly Not Reportable 01/26/20 05:40 Barbie Rods Not Reportable 01/26/20 05:40 Platelet Estimate Consistent w auto 01/26/20 05:40 Clumped Platelets Not Reportable 01/26/20 05:40 Plt Clumps, EDTA Not Reportable 01/26/20 05:40 Large Platelets Not Reportable 01/26/20 05:40 Giant Platelets Not Reportable 01/26/20 05:40 Platelet Satelliting Not Reportable 01/26/20 05:40 Plt Morphology Comment Not Reportable 01/26/20 05:40 RBC Morphology Normal 01/26/20 05:40 Dimorphic RBCs Not Reportable 01/26/20 05:40 Polychromasia Not Reportable 01/26/20 05:40 Hypochromasia Not Reportable 01/26/20 05:40 Poikilocytosis Not Reportable 01/26/20 05:40 Anisocytosis Not Reportable 01/26/20 05:40 Microcytosis Not Reportable 01/26/20 05:40 Macrocytosis Not Reportable 01/26/20 05:40 Spherocytes Not Reportable 01/26/20 05:40 Pappenheimer Bodies Not Reportable 01/26/20 05:40 Sickle Cells Not Reportable 01/26/20 05:40 Target Cells Not Reportable 01/26/20 05:40 Tear Drop Cells Not Reportable 01/26/20 05:40 Ovalocytes Not Reportable 01/26/20 05:40 Helmet Cells Not Reportable 01/26/20 05:40 Abernathy-Spurgeon Bodies Not Reportable 01/26/20 05:40 [place] Rings Not Reportable 01/26/20 05:40 Pauline Cells Not Reportable 01/26/20 05:40 Bite Cells Not Reportable 01/26/20 05:40 Crenated Cell Not Reportable 01/26/20 05:40 Elliptocytes Not Reportable 01/26/20 05:40 Acanthocytes (Spur) Not Reportable 01/26/20 05:40 Rouleaux Not Reportable 01/26/20 05:40 Hemoglobin C Crystals Not Reportable 01/26/20 05:40 Schistocytes Not Reportable 01/26/20 05:40 Malaria parasites Not Reportable 01/26/20 05:40 ESR 70 mm/Hr (0-20) 01/17/20 22:58 Ras Bodies Not Reportable 01/26/20 05:40 Hem Pathologist Commnt No 01/26/20 05:40 PT 15.6 Sec. (12.2-14.9) H 01/17/20 18:28 INR 1.22 (0.87-1.13) H 01/17/20 18:28 D-Dimer 1210.49 ng/mlDDU (0-234) H 02/08/20 04:57 ABG pH 7.497 pH Units (7.350-7.450) H 02/05/20 Unknown ABG pCO2 30.2 mm Hg 02/05/20 Unknown ABG pO2 111.6 mm Hg (80.0-90.0) H 02/05/20 Unknown ABG HCO3 22.9 mmol/L (20.0-26.0) 02/05/20 Unknown ABG O2 Saturation 98.3 % (95.0-99.0) 02/05/20 Unknown ABG O2 Content 10.3 (0.0-44) 02/05/20 Unknown ABG Base Excess -0.1 mmol/L (-2.0-3.0) 02/05/20 Unknown ABG Hemoglobin 7.4 gm/dl (12.0-16.0) L 02/05/20 Unknown ABG Carboxyhemoglobin 1.3 % (0.0-5.0) 02/05/20 Unknown ABG Methemoglobin 0.4 % (0.0-1.5) 02/05/20 Unknown VBG pH 7.409 (7.320-7.420) 01/17/20 18:28 Oxyhemoglobin 96.7 % (95.0-99.0) 02/05/20 Unknown FiO2 40 % 02/05/20 Unknown Sodium 139 mmol/L (137-145) 02/09/20 05:27 Potassium 4.4 mmol/L (3.6-5.0) 02/09/20 05:27 Chloride 96.9 mmol/L (98-107) L 02/09/20 05:27 Carbon Dioxide 22 mmol/L (22-30) 02/09/20 05:27 Anion Gap 25 mmol/L 02/09/20 05:27 BUN 57 mg/dL (7-17) H 02/09/20 05:27 Creatinine 5.9 mg/dL (0.7-1.2) H 02/09/20 05:27 Estimated GFR 10 ml/min 02/09/20 05:27 BUN/Creatinine Ratio 10 % 02/09/20 05:27 Glucose 165 mg/dL (65-100) H 02/09/20 05:27 POC Glucose 130 (70-105) H 02/09/20 17:33 Hemoglobin A1c 11.6 % (4-6) H 01/18/20 12:47 Lactic Acid 1.30 mmol/L (0.7-2.0) 01/18/20 08:30 Calcium 8.6 mg/dL (8.4-10.2) 02/09/20 05:27 Magnesium 1.50 mg/dL (1.7-2.3) L 01/17/20 22:58 Ferritin 850.8 ng/mL (13.0-400.0) H 02/08/20 04:57 Total Bilirubin 0.50 mg/dL (0.1-1.2) 01/31/20 03:49 AST 112 units/L (5-40) H 01/31/20 03:49 ALT 112 units/L (7-56) H 01/31/20 03:49 Alkaline Phosphatase 145 units/L (35-129) H 01/31/20 03:49 Lactate Dehydrogenase 864 units/L (91-180) H 02/08/20 04:57 Total Creatine Kinase 122 units/L (30-135) 01/17/20 22:58 C-Reactive Protein 5.50 mg/dL (0.00-1.30) H 02/08/20 04:57 Total Protein 5.5 g/dL (6.3-8.2) L 01/31/20 03:49 Albumin 1.7 g/dL (3.9-5) L 01/31/20 03:49 Albumin/Globulin Ratio 0.4 % 01/31/20 03:49 Procalcitonin 0.27 ng/mL (<0.15) 01/23/20 10:36 HCG, Qual Negative (Negative) 01/31/20 03:49 Urine Color Yellow (Yellow) 01/18/20 00:32 Urine Turbidity Slightly-cloudy (Clear) 01/18/20 00:32 Urine pH 5.0 (5.0-7.0) 01/18/20 00:32 Ur Specific [place] 1.011 (1.003-1.030) 01/18/20 00:32 Urine Protein 100 mg/dl mg/dL (Negative) 01/18/20 00:32 Urine Glucose (UA) >=500 mg/dL (Negative) 01/18/20 00:32 Urine Ketones Tr mg/dL (Negative) 01/18/20 00:32 Urine Blood Neg (Negative) 01/18/20 00:32 Urine Nitrite Neg (Negative) 01/18/20 00:32 Urine Bilirubin Neg (Negative) 01/18/20 00:32 Urine Urobilinogen < 2.0 mg/dL (<2.0) 01/18/20 00:32 Ur Leukocyte Esterase Neg (Negative) 01/18/20 00:32 Urine WBC (Auto) 2.0 /HPF (0.0-6.0) 01/18/20 00:32 Urine RBC (Auto) 4.0 /HPF (0.0-6.0) 01/18/20 00:32 U Epithel Cells (Auto) 2.0 /HPF (0-13.0) 01/18/20 00:32 Hyaline Casts 1 /LPF 01/18/20 00:32 Urine Mucus Few /HPF 01/18/20 00:32 Urine Yeast (Budding) Few /HPF 01/18/20 00:32 Vancomycin Trough 45.4 ug/mL (5.0-20.0) H 01/30/20 05:19 Random Vancomycin 30.6 ug/mL (0-40.0) 02/01/20 03:49 Hepatitis A IgM Ab Non-reactive (NonReactive) 02/01/20 10:57 Hep Bs Antigen Non-reactive (Negative) 02/01/20 10:57 Hep B Core IgM Ab Non-reactive (NonReactive) 02/01/20 10:57 Hepatitis C Antibody Non-reactive (NonReactive) 02/01/20 10:57 Influenza A (Rapid) Negative (Negative) 01/19/20 01:10 Influenza B (Rapid) Negative (Negative) 01/19/20 01:10 AFB Identification 01/20/20 04:00 Miscellaneous Test Flexitest 1 H 01/28/20 10:00 Goldstein/IV: Voiding Method Diaper IV Catheter Type [right ac] INT / Saline Lock IV Catheter Type [Right trialysis Femoral] IV Catheter Type [Right Peripheral IV Forearm] IV Catheter Type [Right Wrist] INT / Saline Lock IV Catheter Type [Right Hand] INT / Saline Lock IV Catheter Type [Right Upper INT / Saline Lock arm] IV Catheter Type [Left Hand] INT / Saline Lock Active Medications - Current Medications Current Medications: Generic Name Dose Route Start Last Admin Trade Name Freq PRN Reason Stop Dose Admin Acetaminophen 650 mg 01/17/20 23:06 01/29/20 22:43 Tylenol PO 650 mg Q4H PRN Administration Pain MILD(1-3)/Fever >100.5/COLLINS Lipase/Protease/Amylase 1 each 02/01/20 09:53 Pancretita Salidvar 10,500 Unit FEEDTUBE PRN PRN For Clogged Feeding Tube Dextrose 0 ml 01/17/20 23:06 D50w (25gm) Syringe IV Q30MIN PRN Hypoglycemia Protocol Famotidine 20 mg 01/24/20 10:00 02/09/20 09:44 Pepcid PO 20 mg QDAY COBY Administration Heparin Sodium (Porcine) 5,000 unit 01/18/20 06:00 02/09/20 13:19 Heparin SUB-Q 5,000 unit Q8HR COBY Administration Hydralazine HCl 10 mg 01/18/20 22:14 01/22/20 18:43 Apresoline IV 10 mg Q6H PRN Administration Hypertension Hydrophilic Ointment 1 applic 01/31/20 21:48 Vaseline Lip Therapy TP Q2HR PRN Dry Lips Sodium Chloride 100 mls @ 999 mls/hr 02/05/20 11:31 Nacl 0.9% IV KIRSTEN PRN Hypotension Insulin Human Isoph/Insulin Regular 25 unit 02/06/20 22:00 02/09/20 09:45 Humulin 70/30 SUB-Q Not Given BID [facility] Insulin Human Regular 0 units 02/01/20 12:00 02/09/20 17:28 Humulin R SUB-Q Not Given Q6HR [facility] Protocol Insulin Human Regular 5 units 02/04/20 12:00 02/09/20 17:29 Humulin R SUB-Q Not Given Q6HR [facility] Magnesium Hydroxide 30 ml 01/17/20 23:06 Milk Of Magnesia PO Q4H PRN Constipation Morphine Sulfate 2 mg 01/17/20 23:06 02/05/20 11:49 Morphine IV 2 mg Q4H PRN Administration Pain, Moderate (4-6) Multi-Ingred Cream/Lotion/Oil/Oint 1 applic 01/31/20 21:48 Artificial Tears Ophth Oint OU Q4HR PRN Dry Eye(s) Nystatin 1 applic 01/29/20 14:00 02/09/20 09:47 Nystop TP 1 applic BID COBY Administration Ondansetron HCl 4 mg 01/17/20 23:06 01/30/20 20:47 Zofran IV 4 mg Q8H PRN Administration Nausea And Vomiting Simple Syrup 15 ml 02/01/20 09:53 Simple Syrup FEEDTUBE PRN PRN Hypoglycemia Simple Syrup 30 ml 02/01/20 09:53 Simple Syrup FEEDTUBE PRN PRN Hypoglycemia Sodium Bicarbonate 325 mg 02/01/20 09:53 Sodium Bicarbonate FEEDTUBE PRN PRN For Clogged Feeding Tube Sodium Chloride 10 ml 01/18/20 10:00 02/09/20 09:44 Sodium Chloride Flush Syringe 10 Ml IV 10 ml BID COBY Administration Sodium Chloride 10 ml 01/17/20 23:06 02/04/20 05:07 Sodium Chloride Flush Syringe 10 Ml IV 10 ml PRN PRN Administration LINE FLUSH Nutrition/Malnutrition Assess - Dietary Evaluation Nutrition/Malnutrition Findings: Nutrition Notes Start: 01/18/20 13:13 Freq: Status: Active Protocol: Document 02/04/20 12:57 LM (Rec: 02/04/20 13:[address] [facility]-[id number]) Nutrition Notes Initial or Follow up Reassessment Current Diagnosis Diabetes,Sepsis Other Pertinent Diagnosis COVID-19 positive, LEV pnue, ( R) great toe wound Current Diet Vital HP 1.0 at 75ml/hr Labs/Tests Na 140 BUN 80 Cr 5.8 BG 209 Pertinent Medications Humulin Height 6 ft Weight 147.9 kg [place] Body Weight (kg) 72.72 BMI 44.1 Weight Status Morbidly Obese Subjective/Other Information Per RN pt is tolerating TF at goal. Na now in normal range. Percent of energy/protein needs met: 87%/86% Burn Absent Trauma Absent Current % PO Negligible Minimum of two criteria No physical signs of malnutrition #3 Nutrition Diagnosis Inadequate oral intake Diagnosis Progress(for reassessment Continues documentation) #2 Nutrition Diagnosis Inadequate protein-energy intake Diagnosis Progress(for reassessment Continues documentation) #1 Nutrition Diagnosis Increased nutrient needs ( specify in comment below) Diagnosis Progress(for reassessment Continues documentation) Is patient on ventilator? Yes Is Patient Ambulatory and/or Out of Bed Yes REE-([facility]-ambulatory/OOB) [ 3004.300 [id number]] Kcal/Kg value to use for calculation 14 Approximate Energy Requirements Using 1 kcal/Kg Calculation Used for Recommendations Kcal/kg Additional Notes Protein: 183g (up to 2.5g/kg using IBW 73kg Fluid needs 1ml/kcal Nutrition Intervention Change Diet Order: Continue TF Nutrition Support: Vital HP 1.0 at 75ml/hr Flush 50 ml q4h Kcal 1,800 Protein (gm) 158 Fluid (mL) 1,505 Goal #1 TF tolerance Goal #2 Meet at least 75% of energy and protein needs via TF Goal #3 Wound healing Anticipated Discharge Needs: unable to determine at this time Follow-Up By: 02/11/20 Additional Comments F/U for TF tolerance
[2020-02-10] MEDS: HEPARIN 5,000 UNIT/1 ML VIAL SUB-Q SCH ×3 (05:38→22:30)
[2020-02-10] MEDS: INSULIN REGULAR, HUMAN 100 UNITS/1 ML SUB-Q SCH ×8 (07:30→22:30)
[2020-02-10] MEDS: FAMOTIDINE 20 MG TAB PO SCH (09:17)
[2020-02-10] MEDS: INSULIN NPH/REGULAR 70/30 INJ SUB-Q SCH ×2 (09:18→22:30)
[2020-02-10] MEDS: NYSTATIN POWDER 15 GM TP SCH ×2 (09:22→22:30)
--- NOTE | 2020-02-10 11:04 | Progress Note ---
Assessment and Plan Acute Hypoxemic Respiratory failure Severe Sepsis COVID-19 infection Left upper lobe pneumonia Diabetes II Morbid obesity Febrile illness Diabetic foot ulcer Hyponatremia Lactic acidosis - continue to wean supplemental oxygen to keep O2 sats > 90% - COVID-19 precautions per [facility] protocol - continue contact, droplet and airborne precautions -Wound vac and wound care -Complete antibiotics per ID -Discharge planning -Aspiration precautions -Nutrtional support - Accuchecks with glycemic control, keep blood glucose < 180 mg/dL (Avoid hypoglycemia) - Avoid nephrotoxins, adjust and dose all medications fro GFR and CrCL - continue GI & VTE prophylaxis - continue wound care per RN / WCT, wound vac - prn analgesia per pain score - mobility protocols to prevent pressure ulcers - GI & VTE prophylaxis - Flu & pneumovax per protocol - continue other care per attending / other consultants CONDITION: FAIR PROGNOSIS: IMPROVED CODE STATUS: FULL CODE Subjective Date of service: 02/10/20 Principal diagnosis: Severe Sepsis; LEV PNA; DM II; COVID-19 infection; CIPRIANO Interval history: Patient is seen today for: Severe Sepsis with septic shock ; LEV pneumonia; Acute hypoxemic respiratory failures/p MVS; Diabetes II; Morbid obesity; Febrile illness; POSITIVE COVID-19 infection; Diabetic foot ulcer; Hyponatremia; Lactic acidosis Seen and examined at bedside; 24hour events reviewed; nursing and respiratory care staff consulted; no adverse overnight events reported to me; No new issues. PUI?: No COVID19: Positive Objective - Exam Narrative Exam: Limited exam due to shortage of PPE Vital Signs - 12hr 02/10/20 02/10/20 02/10/20 05:06 05:07 08:24 Temperature 98.0 F 98.0 F Pulse Rate 99 H 92 H Respiratory 20 16 Rate Blood Pressure 146/71 O2 Sat by Pulse 97 99 99 Oximetry Constitutional: alert Eyes: non-icteric ENT: oropharynx moist Neck: supple Effort: normal Ascultation: Bilateral: diminished breath sounds, rales (scant in bases) Percussion: Bilateral: not dull Cardiovascular: regular rate and rhythm Neurologic: non-focal exam Psychiatric: mood appropriate, affect normal CBC and BMP: 02/09/20 05:27 02/09/20 05:27 ABG, PT/INR, D-dimer: ABG ABG pH 7.497 pH Units (7.350-7.450) H 02/05/20 Unknown ABG pCO2 30.2 mm Hg 02/05/20 Unknown ABG pO2 111.6 mm Hg (80.0-90.0) H 02/05/20 Unknown ABG O2 Saturation 98.3 % (95.0-99.0) 02/05/20 Unknown PT/INR, D-dimer PT 15.6 Sec. (12.2-14.9) H 01/17/20 18:28 INR 1.22 (0.87-1.13) H 01/17/20 18:28 D-Dimer 1210.49 ng/mlDDU (0-234) H 02/08/20 04:57 Abnormal lab findings: Abnormal Labs 01/17/20 01/17/20 01/17/20 18:28 18:28 18:28 WBC RBC Hgb Hct MCV MCH 26 L RDW Lymph % (Auto) 9.3 L [place] % (Auto) Eos % (Auto) Lymph # 1.0 L [place] # Seg Neutrophils % 86.7 H Seg Neuts % (Manual) Lymphocytes % (Manual) Nucleated RBC % Seg Neutrophils # 9.6 H Seg Neutrophils # Man Lymphocytes # (Manual) PT 15.6 H INR 1.22 H D-Dimer ABG pH ABG pO2 ABG HCO3 ABG O2 Saturation ABG Base Excess ABG Hemoglobin Oxyhemoglobin Sodium 126 L Potassium Chloride 89.3 L Carbon Dioxide 19 L BUN Creatinine Glucose 397 H POC Glucose Hemoglobin A1c Lactic Acid Calcium Magnesium Ferritin AST ALT Alkaline Phosphatase Lactate Dehydrogenase C-Reactive Protein Total Protein 9.0 H Albumin Vancomycin Trough Random Vancomycin Miscellaneous Test 01/17/20 01/17/20 01/17/20 18:28 22:58 22:58 WBC RBC Hgb Hct MCV MCH RDW Lymph % (Auto) [place] % (Auto) Eos % (Auto) Lymph # [place] # Seg Neutrophils % Seg Neuts % (Manual) Lymphocytes % (Manual) Nucleated RBC % Seg Neutrophils # Seg Neutrophils # Man Lymphocytes # (Manual) PT INR D-Dimer ABG pH ABG pO2 ABG HCO3 ABG O2 Saturation ABG Base Excess ABG Hemoglobin Oxyhemoglobin Sodium Potassium Chloride Carbon Dioxide BUN Creatinine Glucose POC Glucose Hemoglobin A1c Lactic Acid 3.40 H* 2.30 H* Calcium Magnesium 1.50 L Ferritin AST ALT Alkaline Phosphatase Lactate Dehydrogenase C-Reactive Protein 16.60 H Total Protein Albumin Vancomycin Trough Random Vancomycin Miscellaneous Test 01/18/20 01/18/20 01/18/20 00:46 06:34 08:30 WBC RBC Hgb Hct MCV MCH 26 L RDW 12.7 L Lymph % (Auto) [place] % (Auto) Eos % (Auto) Lymph # [place] # Seg Neutrophils % 80.1 H Seg Neuts % (Manual) Lymphocytes % (Manual) Nucleated RBC % Seg Neutrophils # Seg Neutrophils # Man Lymphocytes # (Manual) PT INR D-Dimer ABG pH ABG pO2 ABG HCO3 ABG O2 Saturation ABG Base Excess ABG Hemoglobin Oxyhemoglobin Sodium Potassium Chloride Carbon Dioxide BUN Creatinine Glucose POC Glucose 338 H 266 H Hemoglobin A1c Lactic Acid Calcium Magnesium Ferritin AST ALT Alkaline Phosphatase Lactate Dehydrogenase C-Reactive Protein Total Protein Albumin Vancomycin Trough Random Vancomycin Miscellaneous Test 01/18/20 01/18/20 01/18/20 08:30 08:35 12:30 WBC RBC Hgb Hct MCV MCH RDW Lymph % (Auto) [place] % (Auto) Eos % (Auto) Lymph # [place] # Seg Neutrophils % Seg Neuts % (Manual) Lymphocytes % (Manual) Nucleated RBC % Seg Neutrophils # Seg Neutrophils # Man Lymphocytes # (Manual) PT INR D-Dimer ABG pH ABG pO2 ABG HCO3 ABG O2 Saturation ABG Base Excess ABG Hemoglobin Oxyhemoglobin Sodium 135 L D Potassium Chloride Carbon Dioxide BUN Creatinine Glucose 250 H POC Glucose 224 H 213 H Hemoglobin A1c Lactic Acid Calcium Magnesium Ferritin AST ALT Alkaline Phosphatase Lactate Dehydrogenase C-Reactive Protein Total Protein Albumin Vancomycin Trough Random Vancomycin Miscellaneous Test 01/18/20 01/18/20 01/18/20 12:47 16:56 22:03 WBC RBC Hgb Hct MCV MCH RDW Lymph % (Auto) [place] % (Auto) Eos % (Auto) Lymph # [place] # Seg Neutrophils % Seg Neuts % (Manual) Lymphocytes % (Manual) Nucleated RBC % Seg Neutrophils # Seg Neutrophils # Man Lymphocytes # (Manual) PT INR D-Dimer ABG pH ABG pO2 ABG HCO3 ABG O2 Saturation ABG Base Excess ABG Hemoglobin Oxyhemoglobin Sodium Potassium Chloride Carbon Dioxide BUN Creatinine Glucose POC Glucose 270 H 239 H Hemoglobin A1c 11.6 H Lactic Acid Calcium Magnesium Ferritin AST ALT Alkaline Phosphatase Lactate Dehydrogenase C-Reactive Protein Total Protein Albumin Vancomycin Trough Random Vancomycin Miscellaneous Test 01/19/20 01/19/20 01/19/20 06:15 11:48 13:09 WBC RBC Hgb Hct MCV MCH 26 L RDW Lymph % (Auto) [place] % (Auto) Eos % (Auto) Lymph # [place] # Seg Neutrophils % Seg Neuts % (Manual) Lymphocytes % (Manual) Nucleated RBC % Seg Neutrophils # Seg Neutrophils # Man Lymphocytes # (Manual) PT INR D-Dimer ABG pH ABG pO2 ABG HCO3 ABG O2 Saturation ABG Base Excess ABG Hemoglobin Oxyhemoglobin Sodium Potassium Chloride Carbon Dioxide BUN Creatinine Glucose POC Glucose 248 H 268 H Hemoglobin A1c Lactic Acid Calcium Magnesium Ferritin AST ALT Alkaline Phosphatase Lactate Dehydrogenase C-Reactive Protein Total Protein Albumin Vancomycin Trough Random Vancomycin Miscellaneous Test 01/19/20 01/19/20 01/20/20 17:44 21:09 09:03 WBC RBC Hgb Hct MCV MCH RDW Lymph % (Auto) [place] % (Auto) Eos % (Auto) Lymph # [place] # Seg Neutrophils % Seg Neuts % (Manual) Lymphocytes % (Manual) Nucleated RBC % Seg Neutrophils # Seg Neutrophils # Man Lymphocytes # (Manual) PT INR D-Dimer ABG pH ABG pO2 ABG HCO3 ABG O2 Saturation ABG Base Excess ABG Hemoglobin Oxyhemoglobin Sodium Potassium Chloride Carbon Dioxide BUN Creatinine Glucose POC Glucose 214 H 261 H 241 H Hemoglobin A1c Lactic Acid Calcium Magnesium Ferritin AST ALT Alkaline Phosphatase Lactate Dehydrogenase C-Reactive Protein Total Protein Albumin Vancomycin Trough Random Vancomycin Miscellaneous Test 01/20/20 01/20/20 01/20/20 12:10 17:00 19:43 WBC RBC Hgb Hct MCV MCH RDW Lymph % (Auto) [place] % (Auto) Eos % (Auto) Lymph # [place] # Seg Neutrophils % Seg Neuts % (Manual) Lymphocytes % (Manual) Nucleated RBC % Seg Neutrophils # Seg Neutrophils # Man Lymphocytes # (Manual) PT INR D-Dimer ABG pH ABG pO2 ABG HCO3 ABG O2 Saturation ABG Base Excess ABG Hemoglobin Oxyhemoglobin Sodium Potassium Chloride Carbon Dioxide BUN Creatinine Glucose POC Glucose 284 H 272 H Hemoglobin A1c Lactic Acid Calcium Magnesium Ferritin AST ALT Alkaline Phosphatase Lactate Dehydrogenase C-Reactive Protein Total Protein Albumin Vancomycin Trough 4.0 L Random Vancomycin Miscellaneous Test 01/20/20 01/21/20 01/21/20 22:39 09:29 11:41 WBC RBC Hgb Hct MCV MCH 26 L RDW Lymph % (Auto) [place] % (Auto) Eos % (Auto) Lymph # [place] # Seg Neutrophils % Seg Neuts % (Manual) Lymphocytes % (Manual) Nucleated RBC % Seg Neutrophils # Seg Neutrophils # Man Lymphocytes # (Manual) PT INR D-Dimer ABG pH ABG pO2 ABG HCO3 ABG O2 Saturation ABG Base Excess ABG Hemoglobin Oxyhemoglobin Sodium Potassium Chloride Carbon Dioxide BUN Creatinine Glucose POC Glucose 248 H 238 H Hemoglobin A1c Lactic Acid Calcium Magnesium Ferritin AST ALT Alkaline Phosphatase Lactate Dehydrogenase C-Reactive Protein Total Protein Albumin Vancomycin Trough Random Vancomycin Miscellaneous Test 01/21/20 01/21/20 01/21/20 11:41 12:27 16:55 WBC RBC Hgb Hct MCV MCH RDW Lymph % (Auto) [place] % (Auto) Eos % (Auto) Lymph # [place] # Seg Neutrophils % Seg Neuts % (Manual) Lymphocytes % (Manual) Nucleated RBC % Seg Neutrophils # Seg Neutrophils # Man Lymphocytes # (Manual) PT INR D-Dimer ABG pH ABG pO2 ABG HCO3 ABG O2 Saturation ABG Base Excess ABG Hemoglobin Oxyhemoglobin Sodium 132 L Potassium 3.5 L Chloride 97.0 L Carbon Dioxide 19 L BUN Creatinine Glucose 274 H POC Glucose 264 H 261 H Hemoglobin A1c Lactic Acid Calcium Magnesium Ferritin AST ALT Alkaline Phosphatase Lactate Dehydrogenase C-Reactive Protein Total Protein Albumin Vancomycin Trough Random Vancomycin Miscellaneous Test 01/21/20 01/22/20 01/22/20 22:39 09:05 12:57 WBC RBC Hgb Hct MCV MCH RDW Lymph % (Auto) [place] % (Auto) Eos % (Auto) Lymph # [place] # Seg Neutrophils % Seg Neuts % (Manual) Lymphocytes % (Manual) Nucleated RBC % Seg Neutrophils # Seg Neutrophils # Man Lymphocytes # (Manual) PT INR D-Dimer ABG pH ABG pO2 ABG HCO3 ABG O2 Saturation ABG Base Excess ABG Hemoglobin Oxyhemoglobin Sodium Potassium Chloride Carbon Dioxide BUN Creatinine Glucose POC Glucose 243 H 258 H 252 H Hemoglobin A1c Lactic Acid Calcium Magnesium Ferritin AST ALT Alkaline Phosphatase Lactate Dehydrogenase C-Reactive Protein Total Protein Albumin Vancomycin Trough Random Vancomycin Miscellaneous Test 01/22/20 01/22/20 01/23/20 17:14 21:30 09:03 WBC RBC Hgb Hct MCV MCH RDW Lymph % (Auto) [place] % (Auto) Eos % (Auto) Lymph # [place] # Seg Neutrophils % Seg Neuts % (Manual) Lymphocytes % (Manual) Nucleated RBC % Seg Neutrophils # Seg Neutrophils # Man Lymphocytes # (Manual) PT INR D-Dimer ABG pH ABG pO2 ABG HCO3 ABG O2 Saturation ABG Base Excess ABG Hemoglobin Oxyhemoglobin Sodium Potassium Chloride Carbon Dioxide BUN Creatinine Glucose POC Glucose 306 H 217 H 156 H Hemoglobin A1c Lactic Acid Calcium Magnesium Ferritin AST ALT Alkaline Phosphatase Lactate Dehydrogenase C-Reactive Protein Total Protein Albumin Vancomycin Trough Random Vancomycin Miscellaneous Test 01/23/20 01/23/20 01/23/20 10:36 11:12 17:11 WBC RBC Hgb Hct MCV MCH RDW Lymph % (Auto) [place] % (Auto) Eos % (Auto) Lymph # [place] # Seg Neutrophils % Seg Neuts % (Manual) Lymphocytes % (Manual) Nucleated RBC % Seg Neutrophils # Seg Neutrophils # Man Lymphocytes # (Manual) PT INR D-Dimer ABG pH ABG pO2 ABG HCO3 ABG O2 Saturation ABG Base Excess ABG Hemoglobin Oxyhemoglobin Sodium Potassium 3.0 L Chloride Carbon Dioxide 21 L BUN Creatinine Glucose 266 H POC Glucose 244 H 238 H Hemoglobin A1c Lactic Acid Calcium 8.3 L Magnesium Ferritin AST ALT Alkaline Phosphatase Lactate Dehydrogenase C-Reactive Protein Total Protein Albumin Vancomycin Trough Random Vancomycin Miscellaneous Test 01/23/20 01/24/20 01/24/20 22:57 06:03 12:12 WBC RBC Hgb Hct MCV MCH RDW Lymph % (Auto) [place] % (Auto) Eos % (Auto) Lymph # [place] # Seg Neutrophils % Seg Neuts % (Manual) Lymphocytes % (Manual) Nucleated RBC % Seg Neutrophils # Seg Neutrophils # Man Lymphocytes # (Manual) PT INR D-Dimer ABG pH ABG pO2 ABG HCO3 ABG O2 Saturation ABG Base Excess ABG Hemoglobin Oxyhemoglobin Sodium Potassium 3.2 L Chloride Carbon Dioxide 19 L BUN Creatinine Glucose 231 H POC Glucose 228 H 210 H Hemoglobin A1c Lactic Acid Calcium 8.2 L Magnesium Ferritin AST ALT Alkaline Phosphatase Lactate Dehydrogenase C-Reactive Protein Total Protein Albumin Vancomycin Trough Random Vancomycin Miscellaneous Test 01/24/20 01/24/20 01/24/20 12:50 19:01 21:49 WBC RBC Hgb Hct MCV MCH RDW Lymph % (Auto) [place] % (Auto) Eos % (Auto) Lymph # [place] # Seg Neutrophils % Seg Neuts % (Manual) Lymphocytes % (Manual) Nucleated RBC % Seg Neutrophils # Seg Neutrophils # Man Lymphocytes # (Manual) PT INR D-Dimer ABG pH 7.485 H ABG pO2 63.4 L ABG HCO3 ABG O2 Saturation ABG Base Excess ABG Hemoglobin 5.0 L Oxyhemoglobin Sodium Potassium Chloride Carbon Dioxide BUN Creatinine Glucose POC Glucose 183 H 193 H Hemoglobin A1c Lactic Acid Calcium Magnesium Ferritin AST ALT Alkaline Phosphatase Lactate Dehydrogenase C-Reactive Protein Total Protein Albumin Vancomycin Trough Random Vancomycin Miscellaneous Test 01/25/20 01/25/20 01/25/20 09:13 16:58 22:23 WBC RBC Hgb Hct MCV MCH RDW Lymph % (Auto) [place] % (Auto) Eos % (Auto) Lymph # [place] # Seg Neutrophils % Seg Neuts % (Manual) Lymphocytes % (Manual) Nucleated RBC % Seg Neutrophils # Seg Neutrophils # Man Lymphocytes # (Manual) PT INR D-Dimer ABG pH ABG pO2 ABG HCO3 ABG O2 Saturation ABG Base Excess ABG Hemoglobin Oxyhemoglobin Sodium Potassium Chloride Carbon Dioxide BUN Creatinine Glucose POC Glucose 196 H 231 H 159 H Hemoglobin A1c Lactic Acid Calcium Magnesium Ferritin AST ALT Alkaline Phosphatase Lactate Dehydrogenase C-Reactive Protein Total Protein Albumin Vancomycin Trough Random Vancomycin Miscellaneous Test 01/26/20 01/26/20 01/26/20 05:40 05:40 05:40 WBC 16.4 H RBC Hgb Hct MCV MCH 26 L RDW 12.9 L Lymph % (Auto) [place] % (Auto) Eos % (Auto) Lymph # [place] # Seg Neutrophils % Seg Neuts % (Manual) 90.0 H Lymphocytes % (Manual) 1.0 L Nucleated RBC % 1.0 H Seg Neutrophils # Seg Neutrophils # Man 14.8 H Lymphocytes # (Manual) 0.2 L PT INR D-Dimer 2624.11 H ABG pH ABG pO2 ABG HCO3 ABG O2 Saturation ABG Base Excess ABG Hemoglobin Oxyhemoglobin Sodium 135 L Potassium 2.7 L* Chloride Carbon Dioxide 21 L BUN Creatinine Glucose 132 H POC Glucose Hemoglobin A1c Lactic Acid Calcium 8.0 L Magnesium Ferritin AST ALT Alkaline Phosphatase Lactate Dehydrogenase C-Reactive Protein Total Protein Albumin Vancomycin Trough Random Vancomycin Miscellaneous Test 01/26/20 01/26/20 01/26/20 05:40 05:40 08:58 WBC RBC Hgb Hct MCV MCH RDW Lymph % (Auto) [place] % (Auto) Eos % (Auto) Lymph # [place] # Seg Neutrophils % Seg Neuts % (Manual) Lymphocytes % (Manual) Nucleated RBC % Seg Neutrophils # Seg Neutrophils # Man Lymphocytes # (Manual) PT INR D-Dimer ABG pH ABG pO2 ABG HCO3 ABG O2 Saturation ABG Base Excess ABG Hemoglobin Oxyhemoglobin Sodium Potassium Chloride Carbon Dioxide BUN Creatinine Glucose POC Glucose 131 H Hemoglobin A1c Lactic Acid Calcium Magnesium Ferritin 2758.0 H AST ALT Alkaline Phosphatase Lactate Dehydrogenase C-Reactive Protein 26.90 H Total Protein Albumin Vancomycin Trough Random Vancomycin Miscellaneous Test 01/26/20 01/26/20 01/26/20 13:00 16:30 21:22 WBC RBC Hgb Hct MCV MCH RDW Lymph % (Auto) [place] % (Auto) Eos % (Auto) Lymph # [place] # Seg Neutrophils % Seg Neuts % (Manual) Lymphocytes % (Manual) Nucleated RBC % Seg Neutrophils # Seg Neutrophils # Man Lymphocytes # (Manual) PT INR D-Dimer ABG pH ABG pO2 ABG HCO3 ABG O2 Saturation ABG Base Excess ABG Hemoglobin Oxyhemoglobin Sodium Potassium Chloride Carbon Dioxide BUN Creatinine Glucose POC Glucose 136 H 146 H 139 H Hemoglobin A1c Lactic Acid Calcium Magnesium Ferritin AST ALT Alkaline Phosphatase Lactate Dehydrogenase C-Reactive Protein Total Protein Albumin Vancomycin Trough Random Vancomycin Miscellaneous Test 01/27/20 01/27/20 01/27/20 05:14 07:37 12:05 WBC RBC Hgb Hct MCV MCH RDW Lymph % (Auto) [place] % (Auto) Eos % (Auto) Lymph # [place] # Seg Neutrophils % Seg Neuts % (Manual) Lymphocytes % (Manual) Nucleated RBC % Seg Neutrophils # Seg Neutrophils # Man Lymphocytes # (Manual) PT INR D-Dimer ABG pH ABG pO2 ABG HCO3 ABG O2 Saturation ABG Base Excess ABG Hemoglobin Oxyhemoglobin Sodium 135 L Potassium 3.4 L D Chloride Carbon Dioxide 17 L BUN 24 H Creatinine 1.4 H D Glucose 143 H POC Glucose 133 H 141 H Hemoglobin A1c Lactic Acid Calcium 7.6 L Magnesium Ferritin AST ALT Alkaline Phosphatase Lactate Dehydrogenase C-Reactive Protein Total Protein Albumin Vancomycin Trough Random Vancomycin Miscellaneous Test 01/27/20 01/27/20 01/27/20 17:37 22:14 23:53 WBC RBC Hgb Hct MCV MCH RDW Lymph % (Auto) [place] % (Auto) Eos % (Auto) Lymph # [place] # Seg Neutrophils % Seg Neuts % (Manual) Lymphocytes % (Manual) Nucleated RBC % Seg Neutrophils # Seg Neutrophils # Man Lymphocytes # (Manual) PT INR D-Dimer 2675.43 H ABG pH ABG pO2 ABG HCO3 ABG O2 Saturation ABG Base Excess ABG Hemoglobin Oxyhemoglobin Sodium Potassium Chloride Carbon Dioxide BUN Creatinine Glucose POC Glucose 153 H 124 H Hemoglobin A1c Lactic Acid Calcium Magnesium Ferritin AST ALT Alkaline Phosphatase Lactate Dehydrogenase C-Reactive Protein Total Protein Albumin Vancomycin Trough Random Vancomycin Miscellaneous Test 01/27/20 01/27/20 01/28/20 23:53 23:53 08:36 WBC RBC Hgb Hct MCV MCH RDW Lymph % (Auto) [place] % (Auto) Eos % (Auto) Lymph # [place] # Seg Neutrophils % Seg Neuts % (Manual) Lymphocytes % (Manual) Nucleated RBC % Seg Neutrophils # Seg Neutrophils # Man Lymphocytes # (Manual) PT INR D-Dimer ABG pH ABG pO2 ABG HCO3 ABG O2 Saturation ABG Base Excess ABG Hemoglobin Oxyhemoglobin Sodium Potassium Chloride Carbon Dioxide BUN Creatinine Glucose POC Glucose 165 H Hemoglobin A1c Lactic Acid Calcium Magnesium Ferritin 3523.0 H AST ALT Alkaline Phosphatase Lactate Dehydrogenase 1132 H C-Reactive Protein 15.60 H Total Protein Albumin Vancomycin Trough Random Vancomycin Miscellaneous Test 01/28/20 01/28/20 01/28/20 10:00 10:00 10:00 WBC RBC Hgb Hct MCV MCH RDW Lymph % (Auto) [place] % (Auto) Eos % (Auto) Lymph # [place] # Seg Neutrophils % Seg Neuts % (Manual) Lymphocytes % (Manual) Nucleated RBC % Seg Neutrophils # Seg Neutrophils # Man Lymphocytes # (Manual) PT INR D-Dimer ABG pH ABG pO2 ABG HCO3 ABG O2 Saturation ABG Base Excess ABG Hemoglobin Oxyhemoglobin Sodium 131 L Potassium 3.5 L Chloride Carbon Dioxide 16 L BUN 51 H Creatinine 3.5 H D Glucose 180 H POC Glucose Hemoglobin A1c Lactic Acid Calcium 7.5 L Magnesium Ferritin AST ALT Alkaline Phosphatase Lactate Dehydrogenase C-Reactive Protein Total Protein Albumin Vancomycin Trough Random Vancomycin 65.8 H Miscellaneous Test Flexitest 1 H 01/28/20 01/28/20 01/28/20 12:42 17:27 22:06 WBC RBC Hgb Hct MCV MCH RDW Lymph % (Auto) [place] % (Auto) Eos % (Auto) Lymph # [place] # Seg Neutrophils % Seg Neuts % (Manual) Lymphocytes % (Manual) Nucleated RBC % Seg Neutrophils # Seg Neutrophils # Man Lymphocytes # (Manual) PT INR D-Dimer ABG pH ABG pO2 ABG HCO3 ABG O2 Saturation ABG Base Excess ABG Hemoglobin Oxyhemoglobin Sodium Potassium Chloride Carbon Dioxide BUN Creatinine Glucose POC Glucose 188 H 161 H 158 H Hemoglobin A1c Lactic Acid Calcium Magnesium Ferritin AST ALT Alkaline Phosphatase Lactate Dehydrogenase C-Reactive Protein Total Protein Albumin Vancomycin Trough Random Vancomycin Miscellaneous Test 01/29/20 01/29/20 01/29/20 07:29 07:29 08:20 WBC 17.0 H RBC Hgb 9.6 L Hct 29.5 L MCV MCH 26 L RDW Lymph % (Auto) [place] % (Auto) Eos % (Auto) Lymph # [place] # Seg Neutrophils % Seg Neuts % (Manual) Lymphocytes % (Manual) Nucleated RBC % Seg Neutrophils # Seg Neutrophils # Man Lymphocytes # (Manual) PT INR D-Dimer ABG pH ABG pO2 ABG HCO3 ABG O2 Saturation ABG Base Excess ABG Hemoglobin Oxyhemoglobin Sodium 133 L Potassium Chloride Carbon Dioxide 15 L BUN 69 H Creatinine 4.1 H Glucose 161 H POC Glucose 170 H Hemoglobin A1c Lactic Acid Calcium 7.6 L Magnesium Ferritin AST ALT Alkaline Phosphatase Lactate Dehydrogenase C-Reactive Protein Total Protein Albumin Vancomycin Trough Random Vancomycin Miscellaneous Test 01/29/20 01/29/20 01/29/20 11:54 11:54 11:54 WBC RBC Hgb Hct MCV MCH RDW Lymph % (Auto) [place] % (Auto) Eos % (Auto) Lymph # [place] # Seg Neutrophils % Seg Neuts % (Manual) Lymphocytes % (Manual) Nucleated RBC % Seg Neutrophils # Seg Neutrophils # Man Lymphocytes # (Manual) PT INR D-Dimer 1499 H ABG pH ABG pO2 ABG HCO3 ABG O2 Saturation ABG Base Excess ABG Hemoglobin Oxyhemoglobin Sodium Potassium Chloride Carbon Dioxide BUN Creatinine Glucose POC Glucose Hemoglobin A1c Lactic Acid Calcium Magnesium Ferritin > 2000.0 H AST ALT Alkaline Phosphatase Lactate Dehydrogenase 946 H C-Reactive Protein 13.30 H Total Protein Albumin Vancomycin Trough Random Vancomycin Miscellaneous Test 01/29/20 01/29/20 01/29/20 12:55 16:19 22:13 WBC RBC Hgb Hct MCV MCH RDW Lymph % (Auto) [place] % (Auto) Eos % (Auto) Lymph # [place] # Seg Neutrophils % Seg Neuts % (Manual) Lymphocytes % (Manual) Nucleated RBC % Seg Neutrophils # Seg Neutrophils # Man Lymphocytes # (Manual) PT INR D-Dimer ABG pH ABG pO2 ABG HCO3 ABG O2 Saturation ABG Base Excess ABG Hemoglobin Oxyhemoglobin Sodium Potassium Chloride Carbon Dioxide BUN Creatinine Glucose POC Glucose 142 H 146 H 142 H Hemoglobin A1c Lactic Acid Calcium Magnesium Ferritin AST ALT Alkaline Phosphatase Lactate Dehydrogenase C-Reactive Protein Total Protein Albumin Vancomycin Trough Random Vancomycin Miscellaneous Test 01/30/20 01/30/20 01/30/20 05:19 05:19 08:04 WBC RBC Hgb Hct MCV MCH RDW Lymph % (Auto) [place] % (Auto) Eos % (Auto) Lymph # [place] # Seg Neutrophils % Seg Neuts % (Manual) Lymphocytes % (Manual) Nucleated RBC % Seg Neutrophils # Seg Neutrophils # Man Lymphocytes # (Manual) PT INR D-Dimer ABG pH ABG pO2 ABG HCO3 ABG O2 Saturation ABG Base Excess ABG Hemoglobin Oxyhemoglobin Sodium 134 L Potassium Chloride Carbon Dioxide 14 L BUN 87 H Creatinine 4.4 H Glucose 172 H POC Glucose 153 H Hemoglobin A1c Lactic Acid Calcium 7.6 L Magnesium Ferritin AST 152 H ALT 124 H Alkaline Phosphatase Lactate Dehydrogenase C-Reactive Protein Total Protein 5.5 L Albumin 1.8 L Vancomycin Trough 45.4 H Random Vancomycin Miscellaneous Test 01/30/20 01/30/20 01/30/20 12:21 16:51 22:54 WBC RBC Hgb Hct MCV MCH RDW Lymph % (Auto) [place] % (Auto) Eos % (Auto) Lymph # [place] # Seg Neutrophils % Seg Neuts % (Manual) Lymphocytes % (Manual) Nucleated RBC % Seg Neutrophils # Seg Neutrophils # Man Lymphocytes # (Manual) PT INR D-Dimer ABG pH ABG pO2 ABG HCO3 ABG O2 Saturation ABG Base Excess ABG Hemoglobin Oxyhemoglobin Sodium Potassium Chloride Carbon Dioxide BUN Creatinine Glucose POC Glucose 147 H 119 H 129 H Hemoglobin A1c Lactic Acid Calcium Magnesium Ferritin AST ALT Alkaline Phosphatase Lactate Dehydrogenase C-Reactive Protein Total Protein Albumin Vancomycin Trough Random Vancomycin Miscellaneous Test 01/31/20 01/31/20 01/31/20 03:49 03:49 03:49 WBC RBC Hgb Hct MCV MCH RDW Lymph % (Auto) [place] % (Auto) Eos % (Auto) Lymph # [place] # Seg Neutrophils % Seg Neuts % (Manual) Lymphocytes % (Manual) Nucleated RBC % Seg Neutrophils # Seg Neutrophils # Man Lymphocytes # (Manual) PT INR D-Dimer 801.37 H ABG pH ABG pO2 ABG HCO3 ABG O2 Saturation ABG Base Excess ABG Hemoglobin Oxyhemoglobin Sodium 134 L Potassium Chloride Carbon Dioxide 13 L BUN 97 H Creatinine 4.8 H Glucose 123 H POC Glucose Hemoglobin A1c Lactic Acid Calcium 7.6 L Magnesium Ferritin 3101.0 H AST 112 H ALT 112 H Alkaline Phosphatase 145 H Lactate Dehydrogenase 896 H C-Reactive Protein 11.10 H Total Protein 5.5 L Albumin 1.7 L Vancomycin Trough Random Vancomycin Miscellaneous Test 01/31/20 01/31/20 01/31/20 03:49 08:00 11:48 WBC 16.1 H RBC Hgb Hct MCV MCH 25 L RDW Lymph % (Auto) [place] % (Auto) Eos % (Auto) Lymph # [place] # Seg Neutrophils % Seg Neuts % (Manual) Lymphocytes % (Manual) Nucleated RBC % Seg Neutrophils # Seg Neutrophils # Man Lymphocytes # (Manual) PT INR D-Dimer ABG pH ABG pO2 ABG HCO3 ABG O2 Saturation ABG Base Excess ABG Hemoglobin Oxyhemoglobin Sodium Potassium Chloride Carbon Dioxide BUN Creatinine Glucose POC Glucose 133 H 136 H Hemoglobin A1c Lactic Acid Calcium Magnesium Ferritin AST ALT Alkaline Phosphatase Lactate Dehydrogenase C-Reactive Protein Total Protein Albumin Vancomycin Trough Random Vancomycin Miscellaneous Test 01/31/20 01/31/20 01/31/20 16:14 21:37 22:35 WBC RBC Hgb Hct MCV MCH RDW Lymph % (Auto) [place] % (Auto) Eos % (Auto) Lymph # [place] # Seg Neutrophils % Seg Neuts % (Manual) Lymphocytes % (Manual) Nucleated RBC % Seg Neutrophils # Seg Neutrophils # Man Lymphocytes # (Manual) PT INR D-Dimer ABG pH 7.226 L ABG pO2 77.9 L ABG HCO3 15.2 L ABG O2 Saturation 93.5 L ABG Base Excess -11.6 L ABG Hemoglobin Oxyhemoglobin 91.5 L Sodium Potassium Chloride Carbon Dioxide BUN Creatinine Glucose POC Glucose 151 H 179 H Hemoglobin A1c Lactic Acid Calcium Magnesium Ferritin AST ALT Alkaline Phosphatase Lactate Dehydrogenase C-Reactive Protein Total Protein Albumin Vancomycin Trough Random Vancomycin Miscellaneous Test 02/01/20 02/01/20 02/01/20 03:49 03:49 04:30 WBC 19.3 H RBC 3.53 L Hgb 9.0 L Hct 28.1 L MCV MCH 26 L RDW Lymph % (Auto) [place] % (Auto) Eos % (Auto) Lymph # [place] # Seg Neutrophils % Seg Neuts % (Manual) Lymphocytes % (Manual) Nucleated RBC % Seg Neutrophils # Seg Neutrophils # Man Lymphocytes # (Manual) PT INR D-Dimer ABG pH 7.290 L ABG pO2 120.0 H ABG HCO3 14.2 L ABG O2 Saturation ABG Base Excess -11.2 L ABG Hemoglobin 9.3 L Oxyhemoglobin Sodium 135 L Potassium Chloride Carbon Dioxide 13 L BUN 79 H Creatinine 4.1 H Glucose 198 H POC Glucose Hemoglobin A1c Lactic Acid Calcium 7.0 L Magnesium Ferritin AST ALT Alkaline Phosphatase Lactate Dehydrogenase C-Reactive Protein Total Protein Albumin Vancomycin Trough Random Vancomycin Miscellaneous Test 02/01/20 02/01/20 02/02/20 08:13 11:29 00:05 WBC RBC Hgb Hct MCV MCH RDW Lymph % (Auto) [place] % (Auto) Eos % (Auto) Lymph # [place] # Seg Neutrophils % Seg Neuts % (Manual) Lymphocytes % (Manual) Nucleated RBC % Seg Neutrophils # Seg Neutrophils # Man Lymphocytes # (Manual) PT INR D-Dimer ABG pH ABG pO2 ABG HCO3 ABG O2 Saturation ABG Base Excess ABG Hemoglobin Oxyhemoglobin Sodium Potassium Chloride Carbon Dioxide BUN Creatinine Glucose POC Glucose 153 H 181 H 214 H Hemoglobin A1c Lactic Acid Calcium Magnesium Ferritin AST ALT Alkaline Phosphatase Lactate Dehydrogenase C-Reactive Protein Total Protein Albumin Vancomycin Trough Random Vancomycin Miscellaneous Test 02/02/20 02/02/20 02/02/20 04:17 04:30 04:30 WBC RBC Hgb Hct MCV MCH RDW Lymph % (Auto) [place] % (Auto) Eos % (Auto) Lymph # [place] # Seg Neutrophils % Seg Neuts % (Manual) Lymphocytes % (Manual) Nucleated RBC % Seg Neutrophils # Seg Neutrophils # Man Lymphocytes # (Manual) PT INR D-Dimer 795.93 H ABG pH ABG pO2 ABG HCO3 ABG O2 Saturation ABG Base Excess -3.0 L ABG Hemoglobin 8.5 L Oxyhemoglobin Sodium Potassium Chloride Carbon Dioxide BUN Creatinine Glucose POC Glucose Hemoglobin A1c Lactic Acid Calcium Magnesium Ferritin 1978.0 H AST ALT Alkaline Phosphatase Lactate Dehydrogenase C-Reactive Protein Total Protein Albumin Vancomycin Trough Random Vancomycin Miscellaneous Test 02/02/20 02/02/20 02/02/20 04:30 04:30 05:34 WBC 17.3 H RBC 3.24 L Hgb 8.4 L Hct 24.9 L MCV 77 L MCH 26 L RDW Lymph % (Auto) [place] % (Auto) Eos % (Auto) Lymph # [place] # Seg Neutrophils % Seg Neuts % (Manual) Lymphocytes % (Manual) Nucleated RBC % Seg Neutrophils # Seg Neutrophils # Man Lymphocytes # (Manual) PT INR D-Dimer ABG pH ABG pO2 ABG HCO3 ABG O2 Saturation ABG Base Excess ABG Hemoglobin Oxyhemoglobin Sodium Potassium Chloride Carbon Dioxide 17 L BUN 61 H Creatinine 4.1 H Glucose 244 H POC Glucose 274 H Hemoglobin A1c Lactic Acid Calcium 7.2 L Magnesium Ferritin AST ALT Alkaline Phosphatase Lactate Dehydrogenase 841 H C-Reactive Protein 11.50 H Total Protein Albumin Vancomycin Trough Random Vancomycin Miscellaneous Test 02/02/20 02/02/20 02/02/20 12:26 18:06 23:37 WBC RBC Hgb Hct MCV MCH RDW Lymph % (Auto) [place] % (Auto) Eos % (Auto) Lymph # [place] # Seg Neutrophils % Seg Neuts % (Manual) Lymphocytes % (Manual) Nucleated RBC % Seg Neutrophils # Seg Neutrophils # Man Lymphocytes # (Manual) PT INR D-Dimer ABG pH ABG pO2 ABG HCO3 ABG O2 Saturation ABG Base Excess ABG Hemoglobin Oxyhemoglobin Sodium Potassium Chloride Carbon Dioxide BUN Creatinine Glucose POC Glucose 254 H 285 H 239 H Hemoglobin A1c Lactic Acid Calcium Magnesium Ferritin AST ALT Alkaline Phosphatase Lactate Dehydrogenase C-Reactive Protein Total Protein Albumin Vancomycin Trough Random Vancomycin Miscellaneous Test 02/03/20 02/03/20 02/03/20 04:40 04:56 10:41 WBC RBC Hgb Hct MCV MCH RDW Lymph % (Auto) [place] % (Auto) Eos % (Auto) Lymph # [place] # Seg Neutrophils % Seg Neuts % (Manual) Lymphocytes % (Manual) Nucleated RBC % Seg Neutrophils # Seg Neutrophils # Man Lymphocytes # (Manual) PT INR D-Dimer ABG pH 7.520 H ABG pO2 73.8 L 92.5 H ABG HCO3 ABG O2 Saturation ABG Base Excess ABG Hemoglobin 8.6 L 7.9 L Oxyhemoglobin Sodium Potassium Chloride Carbon Dioxide BUN Creatinine Glucose POC Glucose 227 H Hemoglobin A1c Lactic Acid Calcium Magnesium Ferritin AST ALT Alkaline Phosphatase Lactate Dehydrogenase C-Reactive Protein Total Protein Albumin Vancomycin Trough Random Vancomycin Miscellaneous Test 02/03/20 02/03/20 02/03/20 12:09 17:23 23:41 WBC RBC Hgb Hct MCV MCH RDW Lymph % (Auto) [place] % (Auto) Eos % (Auto) Lymph # [place] # Seg Neutrophils % Seg Neuts % (Manual) Lymphocytes % (Manual) Nucleated RBC % Seg Neutrophils # Seg Neutrophils # Man Lymphocytes # (Manual) PT INR D-Dimer ABG pH ABG pO2 ABG HCO3 ABG O2 Saturation ABG Base Excess ABG Hemoglobin Oxyhemoglobin Sodium Potassium Chloride Carbon Dioxide BUN Creatinine Glucose POC Glucose 268 H 255 H 239 H Hemoglobin A1c Lactic Acid Calcium Magnesium Ferritin AST ALT Alkaline Phosphatase Lactate Dehydrogenase C-Reactive Protein Total Protein Albumin Vancomycin Trough Random Vancomycin Miscellaneous Test 02/04/20 02/04/20 02/04/20 04:31 04:42 04:42 WBC RBC Hgb Hct MCV MCH RDW Lymph % (Auto) [place] % (Auto) Eos % (Auto) Lymph # [place] # Seg Neutrophils % Seg Neuts % (Manual) Lymphocytes % (Manual) Nucleated RBC % Seg Neutrophils # Seg Neutrophils # Man Lymphocytes # (Manual) PT INR D-Dimer 694.19 H ABG pH ABG pO2 ABG HCO3 ABG O2 Saturation ABG Base Excess ABG Hemoglobin Oxyhemoglobin Sodium Potassium Chloride Carbon Dioxide BUN Creatinine Glucose POC Glucose 216 H Hemoglobin A1c Lactic Acid Calcium Magnesium Ferritin 1660.0 H AST ALT Alkaline Phosphatase Lactate Dehydrogenase C-Reactive Protein Total Protein Albumin Vancomycin Trough Random Vancomycin Miscellaneous Test 02/04/20 02/04/20 02/04/20 04:42 04:42 12:03 WBC 13.7 H RBC 2.92 L Hgb 7.4 L Hct 23.0 L MCV MCH 25 L RDW Lymph % (Auto) [place] % (Auto) Eos % (Auto) Lymph # [place] # Seg Neutrophils % Seg Neuts % (Manual) Lymphocytes % (Manual) Nucleated RBC % Seg Neutrophils # Seg Neutrophils # Man Lymphocytes # (Manual) PT INR D-Dimer ABG pH ABG pO2 ABG HCO3 ABG O2 Saturation ABG Base Excess ABG Hemoglobin Oxyhemoglobin Sodium Potassium Chloride Carbon Dioxide 17 L BUN 80 H Creatinine 5.8 H Glucose 209 H POC Glucose 248 H Hemoglobin A1c Lactic Acid Calcium 8.3 L D Magnesium Ferritin AST ALT Alkaline Phosphatase Lactate Dehydrogenase 972 H C-Reactive Protein 6.20 H Total Protein Albumin Vancomycin Trough Random Vancomycin Miscellaneous Test 02/04/20 02/04/20 02/04/20 17:42 23:48 Unknown WBC RBC Hgb Hct MCV MCH RDW Lymph % (Auto) [place] % (Auto) Eos % (Auto) Lymph # [place] # Seg Neutrophils % Seg Neuts % (Manual) Lymphocytes % (Manual) Nucleated RBC % Seg Neutrophils # Seg Neutrophils # Man Lymphocytes # (Manual) PT INR D-Dimer ABG pH 7.484 H ABG pO2 104.8 H ABG HCO3 ABG O2 Saturation ABG Base Excess ABG Hemoglobin 9.5 L Oxyhemoglobin Sodium Potassium Chloride Carbon Dioxide BUN Creatinine Glucose POC Glucose 209 H 166 H Hemoglobin A1c Lactic Acid Calcium Magnesium Ferritin AST ALT Alkaline Phosphatase Lactate Dehydrogenase C-Reactive Protein Total Protein Albumin Vancomycin Trough Random Vancomycin Miscellaneous Test 02/05/20 02/05/20 02/05/20 03:51 03:51 05:43 WBC 13.9 H RBC 2.98 L Hgb 7.6 L Hct 23.4 L MCV MCH 26 L RDW Lymph % (Auto) [place] % (Auto) Eos % (Auto) Lymph # [place] # Seg Neutrophils % Seg Neuts % (Manual) Lymphocytes % (Manual) Nucleated RBC % Seg Neutrophils # Seg Neutrophils # Man Lymphocytes # (Manual) PT INR D-Dimer ABG pH ABG pO2 ABG HCO3 ABG O2 Saturation ABG Base Excess ABG Hemoglobin Oxyhemoglobin Sodium Potassium Chloride Carbon Dioxide 19 L BUN 65 H Creatinine 5.9 H Glucose 167 H POC Glucose 148 H Hemoglobin A1c Lactic Acid Calcium 8.3 L Magnesium Ferritin AST ALT Alkaline Phosphatase Lactate Dehydrogenase C-Reactive Protein Total Protein Albumin Vancomycin Trough Random Vancomycin Miscellaneous Test 02/05/20 02/05/20 02/05/20 12:34 18:55 23:48 WBC RBC Hgb Hct MCV MCH RDW Lymph % (Auto) [place] % (Auto) Eos % (Auto) Lymph # [place] # Seg Neutrophils % Seg Neuts % (Manual) Lymphocytes % (Manual) Nucleated RBC % Seg Neutrophils # Seg Neutrophils # Man Lymphocytes # (Manual) PT INR D-Dimer ABG pH ABG pO2 ABG HCO3 ABG O2 Saturation ABG Base Excess ABG Hemoglobin Oxyhemoglobin Sodium Potassium Chloride Carbon Dioxide BUN Creatinine Glucose POC Glucose 267 H 166 H 241 H Hemoglobin A1c Lactic Acid Calcium Magnesium Ferritin AST ALT Alkaline Phosphatase Lactate Dehydrogenase C-Reactive Protein Total Protein Albumin Vancomycin Trough Random Vancomycin Miscellaneous Test 02/05/20 02/06/20 02/06/20 Unknown 03:38 03:38 WBC RBC Hgb Hct MCV MCH RDW Lymph % (Auto) [place] % (Auto) Eos % (Auto) Lymph # [place] # Seg Neutrophils % Seg Neuts % (Manual) Lymphocytes % (Manual) Nucleated RBC % Seg Neutrophils # Seg Neutrophils # Man Lymphocytes # (Manual) PT INR D-Dimer 1067.61 H ABG pH 7.497 H ABG pO2 111.6 H ABG HCO3 ABG O2 Saturation ABG Base Excess ABG Hemoglobin 7.4 L Oxyhemoglobin Sodium Potassium Chloride Carbon Dioxide BUN Creatinine Glucose POC Glucose Hemoglobin A1c Lactic Acid Calcium Magnesium Ferritin 1277.0 H AST ALT Alkaline Phosphatase Lactate Dehydrogenase C-Reactive Protein Total Protein Albumin Vancomycin Trough Random Vancomycin Miscellaneous Test 02/06/20 02/06/20 02/06/20 03:38 03:38 06:04 WBC 13.8 H RBC 3.16 L Hgb 8.0 L Hct 25.7 L MCV MCH 25 L RDW Lymph % (Auto) [place] % (Auto) Eos % (Auto) Lymph # [place] # Seg Neutrophils % Seg Neuts % (Manual) Lymphocytes % (Manual) Nucleated RBC % Seg Neutrophils # Seg Neutrophils # Man Lymphocytes # (Manual) PT INR D-Dimer ABG pH ABG pO2 ABG HCO3 ABG O2 Saturation ABG Base Excess ABG Hemoglobin Oxyhemoglobin Sodium Potassium Chloride Carbon Dioxide 21 L BUN 66 H Creatinine 6.0 H Glucose 213 H POC Glucose 232 H Hemoglobin A1c Lactic Acid Calcium Magnesium Ferritin AST ALT Alkaline Phosphatase Lactate Dehydrogenase 48 L C-Reactive Protein Total Protein Albumin Vancomycin Trough Random Vancomycin Miscellaneous Test 02/06/20 02/06/20 02/06/20 11:54 17:34 22:20 WBC RBC Hgb Hct MCV MCH RDW Lymph % (Auto) [place] % (Auto) Eos % (Auto) Lymph # [place] # Seg Neutrophils % Seg Neuts % (Manual) Lymphocytes % (Manual) Nucleated RBC % Seg Neutrophils # Seg Neutrophils # Man Lymphocytes # (Manual) PT INR D-Dimer ABG pH ABG pO2 ABG HCO3 ABG O2 Saturation ABG Base Excess ABG Hemoglobin Oxyhemoglobin Sodium Potassium Chloride Carbon Dioxide BUN Creatinine Glucose POC Glucose 230 H 220 H 262 H Hemoglobin A1c Lactic Acid Calcium Magnesium Ferritin AST ALT Alkaline Phosphatase Lactate Dehydrogenase C-Reactive Protein Total Protein Albumin Vancomycin Trough Random Vancomycin Miscellaneous Test 02/07/20 02/07/20 02/07/20 05:05 05:05 05:24 WBC 15.0 H RBC 3.30 L Hgb 8.3 L Hct 26.6 L MCV MCH 25 L RDW Lymph % (Auto) [place] % (Auto) Eos % (Auto) Lymph # [place] # Seg Neutrophils % Seg Neuts % (Manual) Lymphocytes % (Manual) Nucleated RBC % Seg Neutrophils # Seg Neutrophils # Man Lymphocytes # (Manual) PT INR D-Dimer ABG pH ABG pO2 ABG HCO3 ABG O2 Saturation ABG Base Excess ABG Hemoglobin Oxyhemoglobin Sodium Potassium Chloride Carbon Dioxide BUN 63 H Creatinine 6.1 H Glucose 231 H POC Glucose 192 H Hemoglobin A1c Lactic Acid Calcium Magnesium Ferritin AST ALT Alkaline Phosphatase Lactate Dehydrogenase C-Reactive Protein Total Protein Albumin Vancomycin Trough Random Vancomycin Miscellaneous Test 02/07/20 02/07/20 02/07/20 12:07 16:45 22:44 WBC RBC Hgb Hct MCV MCH RDW Lymph % (Auto) [place] % (Auto) Eos % (Auto) Lymph # [place] # Seg Neutrophils % Seg Neuts % (Manual) Lymphocytes % (Manual) Nucleated RBC % Seg Neutrophils # Seg Neutrophils # Man Lymphocytes # (Manual) PT INR D-Dimer ABG pH ABG pO2 ABG HCO3 ABG O2 Saturation ABG Base Excess ABG Hemoglobin Oxyhemoglobin Sodium Potassium Chloride Carbon Dioxide BUN Creatinine Glucose POC Glucose 218 H 191 H 172 H Hemoglobin A1c Lactic Acid Calcium Magnesium Ferritin AST ALT Alkaline Phosphatase Lactate Dehydrogenase C-Reactive Protein Total Protein Albumin Vancomycin Trough Random Vancomycin Miscellaneous Test 02/08/20 02/08/20 02/08/20 04:57 04:57 04:57 WBC RBC Hgb Hct MCV MCH RDW Lymph % (Auto) [place] % (Auto) Eos % (Auto) Lymph # [place] # Seg Neutrophils % Seg Neuts % (Manual) Lymphocytes % (Manual) Nucleated RBC % Seg Neutrophils # Seg Neutrophils # Man Lymphocytes # (Manual) PT INR D-Dimer 1210.49 H ABG pH ABG pO2 ABG HCO3 ABG O2 Saturation ABG Base Excess ABG Hemoglobin Oxyhemoglobin Sodium Potassium Chloride Carbon Dioxide BUN Creatinine Glucose POC Glucose Hemoglobin A1c Lactic Acid Calcium Magnesium Ferritin 850.8 H AST ALT Alkaline Phosphatase Lactate Dehydrogenase 864 H C-Reactive Protein 5.50 H Total Protein Albumin Vancomycin Trough Random Vancomycin Miscellaneous Test 02/08/20 02/08/20 02/08/20 06:33 11:50 17:06 WBC RBC Hgb Hct MCV MCH RDW Lymph % (Auto) [place] % (Auto) Eos % (Auto) Lymph # [place] # Seg Neutrophils % Seg Neuts % (Manual) Lymphocytes % (Manual) Nucleated RBC % Seg Neutrophils # Seg Neutrophils # Man Lymphocytes # (Manual) PT INR D-Dimer ABG pH ABG pO2 ABG HCO3 ABG O2 Saturation ABG Base Excess ABG Hemoglobin Oxyhemoglobin Sodium Potassium Chloride Carbon Dioxide BUN Creatinine Glucose POC Glucose 178 H 166 H 170 H Hemoglobin A1c Lactic Acid Calcium Magnesium Ferritin AST ALT Alkaline Phosphatase Lactate Dehydrogenase C-Reactive Protein Total Protein Albumin Vancomycin Trough Random Vancomycin Miscellaneous Test 02/08/20 02/09/20 02/09/20 23:43 04:47 05:27 WBC RBC 3.20 L Hgb 8.4 L Hct 25.6 L MCV MCH 26 L RDW Lymph % (Auto) 13.0 L [place] % (Auto) 11.8 H Eos % (Auto) 4.5 H Lymph # 1.1 L [place] # 1.0 H Seg Neutrophils % 70.2 H Seg Neuts % (Manual) Lymphocytes % (Manual) Nucleated RBC % Seg Neutrophils # Seg Neutrophils # Man Lymphocytes # (Manual) PT INR D-Dimer ABG pH ABG pO2 ABG HCO3 ABG O2 Saturation ABG Base Excess ABG Hemoglobin Oxyhemoglobin Sodium Potassium Chloride Carbon Dioxide BUN Creatinine Glucose POC Glucose 110 H 154 H Hemoglobin A1c Lactic Acid Calcium Magnesium Ferritin AST ALT Alkaline Phosphatase Lactate Dehydrogenase C-Reactive Protein Total Protein Albumin Vancomycin Trough Random Vancomycin Miscellaneous Test 02/09/20 02/09/20 02/09/20 05:27 11:23 17:33 WBC RBC Hgb Hct MCV MCH RDW Lymph % (Auto) [place] % (Auto) Eos % (Auto) Lymph # [place] # Seg Neutrophils % Seg Neuts % (Manual) Lymphocytes % (Manual) Nucleated RBC % Seg Neutrophils # Seg Neutrophils # Man Lymphocytes # (Manual) PT INR D-Dimer ABG pH ABG pO2 ABG HCO3 ABG O2 Saturation ABG Base Excess ABG Hemoglobin Oxyhemoglobin Sodium Potassium Chloride 96.9 L Carbon Dioxide BUN 57 H Creatinine 5.9 H Glucose 165 H POC Glucose 177 H 130 H Hemoglobin A1c Lactic Acid Calcium Magnesium Ferritin AST ALT Alkaline Phosphatase Lactate Dehydrogenase C-Reactive Protein Total Protein Albumin Vancomycin Trough Random Vancomycin Miscellaneous Test 02/10/20 07:42 WBC RBC Hgb Hct MCV MCH RDW Lymph % (Auto) [place] % (Auto) Eos % (Auto) Lymph # [place] # Seg Neutrophils % Seg Neuts % (Manual) Lymphocytes % (Manual) Nucleated RBC % Seg Neutrophils # Seg Neutrophils # Man Lymphocytes # (Manual) PT INR D-Dimer ABG pH ABG pO2 ABG HCO3 ABG O2 Saturation ABG Base Excess ABG Hemoglobin Oxyhemoglobin Sodium Potassium Chloride Carbon Dioxide BUN Creatinine Glucose POC Glucose 115 H Hemoglobin A1c Lactic Acid Calcium Magnesium Ferritin AST ALT Alkaline Phosphatase Lactate Dehydrogenase C-Reactive Protein Total Protein Albumin Vancomycin Trough Random Vancomycin Miscellaneous Test Allied health notes reviewed: nursing
--- NOTE | 2020-02-10 17:44 | Progress Note ---
Assessment and Plan Assessment and plan: --Awaiting LTAC placement; However LTAC requires 2- Covid tests prior to LTAC placement Case management Assisting with discharge planning --Severe Sepsis/due to cough with pneumonia --Multiple Organ involvement/poor prognosis --COVID 19 induced pneumonia Acute on chronic respiratory failure requiring mechanical ventilation s/p extubation, continue nasal cannula oxygen --Acute metabolic encephalopathy; Multifactorial, supportive care --Left thigh abscess status post I&D --Diabetic foot wound nonhealing --Morbid obesity hypoventilation syndrome --Acute kidney injury secondary to vasomotor nephropathy HD MWF, nephrology following --Anemia; of chronic kidney disease Closely monitor H&H and transfuse as needed --Hyponatremia-resolved, monitor electrolytes --Type II diabetes mellitus with uncontrolled blood sugar Accu-Chek sliding scale coverage ADA diet and insulin --Morbid obesity; BMI 44.8 --Hypertension monitor closely for septic shock --Severe protein calorie malnutrition: Secondary to underlying disease process Nutrition supplements nutrition consult --Dysphagia; patient needs PEG placement --DC planning; per case management -Outpatient HD chair scheduling -PEG tube placement -Possible LTAC placement -LTAC requires 2neg Covid tests Monitor closely and adjust the management as needed The high probability of a clinically significant, sudden or life threatening deterioration of the [pulmonary, renal, infectious, GI, metabolic, endocrine] system(s) required my full and direct attention, intervention and personal management. The aggregate critical care time was [34] minutes. This time is in addition to time spent performing reported procedures but includes the following: [x] Data Review and interpretation [x] Patient assessment and monitoring of vital signs [x] Documentation [x] Medication orders and management History Interval history: Patient seen and examined this morning At the bedside, patient is Covid 19 positive Patient was in contact and droplet isolation Prior to entering the room, full PPE was used per [facility] C protocol Patient is critically ill looking, minimally communicative In mild distress Vital signs noted PUI?: No COVID19: Positive Hospitalist Physical - Constitutional Vitals: Temp Pulse Resp BP Pulse Ox 98.0 F 92 H 16 146/71 99 02/10/20 05:07 02/10/20 05:07 02/10/20 05:07 02/10/20 05:06 02/10/20 08:24 General appearance: Present: mild distress, well-nourished, obese (Morbidly obese) - EENT Eyes: Present: PERRL, EOM intact - Neck Neck: Present: supple, normal ROM - Respiratory Respiratory effort: normal Respiratory: bilateral: diminished, rhonchi, negative: rales, wheezing - Cardiovascular Rhythm: regular Heart Sounds: Present: S1 & S2 - Extremities Extremities: no ischemia, pulses intact - Abdominal General gastrointestinal: soft, non-tender, non-distended, normal bowel sounds - Integumentary Integumentary: Present: clear, warm - Psychiatric Psychiatric: appropriate mood/affect, cooperative - Neurologic Neurologic: moves all extremities Results - Labs CBC & Chem 7: 02/09/20 05:27 02/09/20 05:27 Labs: Laboratory Last Values WBC 8.6 K/mm3 (4.5-11.0) 02/09/20 05:27 RBC 3.20 M/mm3 (3.65-5.03) L 02/09/20 05:27 Hgb 8.4 gm/dl (10.1-14.3) L 02/09/20 05:27 Hct 25.6 % (30.3-42.9) L 02/09/20 05:27 MCV 80 fl (79-97) 02/09/20 05:27 MCH 26 pg (28-32) L 02/09/20 05:27 MCHC 33 % (30-34) 02/09/20 05:27 RDW 13.7 % (13.2-15.2) 02/09/20 05:27 Plt Count 186 K/mm3 (140-440) 02/09/20 05:27 Lymph % (Auto) 13.0 % (13.4-35.0) L 02/09/20 05:27 Greene % (Auto) 11.8 % (0.0-7.3) H 02/09/20 05:27 Eos % (Auto) 4.5 % (0.0-4.3) H 02/09/20 05:27 Baso % (Auto) 0.5 % (0.0-1.8) 02/09/20 05:27 Lymph # 1.1 K/mm3 (1.2-5.4) L 02/09/20 05:27 Greene # 1.0 K/mm3 (0.0-0.8) H 02/09/20 05:27 Eos # 0.4 K/mm3 (0.0-0.4) 02/09/20 05:27 Baso # 0.0 K/mm3 (0.0-0.1) 02/09/20 05:27 Add Manual Diff Complete 01/26/20 05:40 Total Counted 100 01/26/20 05:40 Seg Neutrophils % 70.2 % (40.0-70.0) H 02/09/20 05:27 Seg Neuts % (Manual) 90.0 % (40.0-70.0) H 01/26/20 05:40 Band Neutrophils % 5.0 % 01/26/20 05:40 Lymphocytes % (Manual) 1.0 % (13.4-35.0) L 01/26/20 05:40 Reactive Lymphs % (Man) 0 % 01/26/20 05:40 Monocytes % (Manual) 2.0 % (0.0-7.3) 01/26/20 05:40 Eosinophils % (Manual) 2.0 % (0.0-4.3) 01/26/20 05:40 Basophils % (Manual) 0 % (0.0-1.8) 01/26/20 05:40 Metamyelocytes % 0 % 01/26/20 05:40 Myelocytes % 0 % 01/26/20 05:40 Promyelocytes % 0 % 01/26/20 05:40 Blast Cells % 0 % 01/26/20 05:40 Nucleated RBC % 1.0 % (0.0-0.9) H 01/26/20 05:40 Seg Neutrophils # 6.0 K/mm3 (1.8-7.7) 02/09/20 05:27 Seg Neutrophils # Man 14.8 K/mm3 (1.8-7.7) H 01/26/20 05:40 Band Neutrophils # 0.8 K/mm3 01/26/20 05:40 Lymphocytes # (Manual) 0.2 K/mm3 (1.2-5.4) L 01/26/20 05:40 Abs React Lymphs (Man) 0.0 K/mm3 01/26/20 05:40 Monocytes # (Manual) 0.3 K/mm3 (0.0-0.8) 01/26/20 05:40 Eosinophils # (Manual) 0.3 K/mm3 (0.0-0.4) 01/26/20 05:40 Basophils # (Manual) 0.0 K/mm3 (0.0-0.1) 01/26/20 05:40 Metamyelocytes # 0.0 K/mm3 01/26/20 05:40 Myelocytes # 0.0 K/mm3 01/26/20 05:40 Promyelocytes # 0.0 K/mm3 01/26/20 05:40 Blast Cells # 0.0 K/mm3 01/26/20 05:40 WBC Morphology Not Reportable 01/26/20 05:40 Hypersegmented Neuts Not Reportable 01/26/20 05:40 Hyposegmented Neuts Not Reportable 01/26/20 05:40 Hypogranular Neuts Not Reportable 01/26/20 05:40 Smudge Cells Not Reportable 01/26/20 05:40 Toxic Granulation Not Reportable 01/26/20 05:40 Toxic Vacuolation Not Reportable 01/26/20 05:40 Dohle Bodies Not Reportable 01/26/20 05:40 Pelger-Huet Anomaly Not Reportable 01/26/20 05:40 Barbie Rods Not Reportable 01/26/20 05:40 Platelet Estimate Consistent w auto 01/26/20 05:40 Clumped Platelets Not Reportable 01/26/20 05:40 Plt Clumps, EDTA Not Reportable 01/26/20 05:40 Large Platelets Not Reportable 01/26/20 05:40 Giant Platelets Not Reportable 01/26/20 05:40 Platelet Satelliting Not Reportable 01/26/20 05:40 Plt Morphology Comment Not Reportable 01/26/20 05:40 RBC Morphology Normal 01/26/20 05:40 Dimorphic RBCs Not Reportable 01/26/20 05:40 Polychromasia Not Reportable 01/26/20 05:40 Hypochromasia Not Reportable 01/26/20 05:40 Poikilocytosis Not Reportable 01/26/20 05:40 Anisocytosis Not Reportable 01/26/20 05:40 Microcytosis Not Reportable 01/26/20 05:40 Macrocytosis Not Reportable 01/26/20 05:40 Spherocytes Not Reportable 01/26/20 05:40 Pappenheimer Bodies Not Reportable 01/26/20 05:40 Sickle Cells Not Reportable 01/26/20 05:40 Target Cells Not Reportable 01/26/20 05:40 Tear Drop Cells Not Reportable 01/26/20 05:40 Ovalocytes Not Reportable 01/26/20 05:40 Helmet Cells Not Reportable 01/26/20 05:40 [place] Bodies Not Reportable 01/26/20 05:40 [place] Rings Not Reportable 01/26/20 05:40 Pauline Cells Not Reportable 01/26/20 05:40 Bite Cells Not Reportable 01/26/20 05:40 Crenated Cell Not Reportable 01/26/20 05:40 Elliptocytes Not Reportable 01/26/20 05:40 Acanthocytes (Spur) Not Reportable 01/26/20 05:40 Rouleaux Not Reportable 01/26/20 05:40 Hemoglobin C Crystals Not Reportable 01/26/20 05:40 Schistocytes Not Reportable 01/26/20 05:40 Malaria parasites Not Reportable 01/26/20 05:40 ESR 70 mm/Hr (0-20) 01/17/20 22:58 Ras Bodies Not Reportable 01/26/20 05:40 Hem Pathologist Commnt No 01/26/20 05:40 PT 15.6 Sec. (12.2-14.9) H 01/17/20 18:28 INR 1.22 (0.87-1.13) H 01/17/20 18:28 D-Dimer 1210.49 ng/mlDDU (0-234) H 02/08/20 04:57 ABG pH 7.497 pH Units (7.350-7.450) H 02/05/20 Unknown ABG pCO2 30.2 mm Hg 02/05/20 Unknown ABG pO2 111.6 mm Hg (80.0-90.0) H 02/05/20 Unknown ABG HCO3 22.9 mmol/L (20.0-26.0) 02/05/20 Unknown ABG O2 Saturation 98.3 % (95.0-99.0) 02/05/20 Unknown ABG O2 Content 10.3 (0.0-44) 02/05/20 Unknown ABG Base Excess -0.1 mmol/L (-2.0-3.0) 02/05/20 Unknown ABG Hemoglobin 7.4 gm/dl (12.0-16.0) L 02/05/20 Unknown ABG Carboxyhemoglobin 1.3 % (0.0-5.0) 02/05/20 Unknown ABG Methemoglobin 0.4 % (0.0-1.5) 02/05/20 Unknown VBG pH 7.409 (7.320-7.420) 01/17/20 18:28 Oxyhemoglobin 96.7 % (95.0-99.0) 02/05/20 Unknown FiO2 40 % 02/05/20 Unknown Sodium 139 mmol/L (137-145) 02/09/20 05:27 Potassium 4.4 mmol/L (3.6-5.0) 02/09/20 05:27 Chloride 96.9 mmol/L (98-107) L 02/09/20 05:27 Carbon Dioxide 22 mmol/L (22-30) 02/09/20 05:27 Anion Gap 25 mmol/L 02/09/20 05:27 BUN 57 mg/dL (7-17) H 02/09/20 05:27 Creatinine 5.9 mg/dL (0.7-1.2) H 02/09/20 05:27 Estimated GFR 10 ml/min 02/09/20 05:27 BUN/Creatinine Ratio 10 % 02/09/20 05:27 Glucose 165 mg/dL (65-100) H 02/09/20 05:27 POC Glucose 122 (70-105) H 02/10/20 16:53 Hemoglobin A1c 11.6 % (4-6) H 01/18/20 12:47 Lactic Acid 1.30 mmol/L (0.7-2.0) 01/18/20 08:30 Calcium 8.6 mg/dL (8.4-10.2) 02/09/20 05:27 Magnesium 1.50 mg/dL (1.7-2.3) L 01/17/20 22:58 Ferritin 850.8 ng/mL (13.0-400.0) H 02/08/20 04:57 Total Bilirubin 0.50 mg/dL (0.1-1.2) 01/31/20 03:49 AST 112 units/L (5-40) H 01/31/20 03:49 ALT 112 units/L (7-56) H 01/31/20 03:49 Alkaline Phosphatase 145 units/L (35-129) H 01/31/20 03:49 Lactate Dehydrogenase 864 units/L (91-180) H 02/08/20 04:57 Total Creatine Kinase 122 units/L (30-135) 01/17/20 22:58 C-Reactive Protein 5.50 mg/dL (0.00-1.30) H 02/08/20 04:57 Total Protein 5.5 g/dL (6.3-8.2) L 01/31/20 03:49 Albumin 1.7 g/dL (3.9-5) L 01/31/20 03:49 Albumin/Globulin Ratio 0.4 % 01/31/20 03:49 Procalcitonin 0.27 ng/mL (<0.15) 01/23/20 10:36 HCG, Qual Negative (Negative) 01/31/20 03:49 Urine Color Yellow (Yellow) 01/18/20 00:32 Urine Turbidity Slightly-cloudy (Clear) 01/18/20 00:32 Urine pH 5.0 (5.0-7.0) 01/18/20 00:32 Ur Specific [place] 1.011 (1.003-1.030) 01/18/20 00:32 Urine Protein 100 mg/dl mg/dL (Negative) 01/18/20 00:32 Urine Glucose (UA) >=500 mg/dL (Negative) 01/18/20 00:32 Urine Ketones Tr mg/dL (Negative) 01/18/20 00:32 Urine Blood Neg (Negative) 01/18/20 00:32 Urine Nitrite Neg (Negative) 01/18/20 00:32 Urine Bilirubin Neg (Negative) 01/18/20 00:32 Urine Urobilinogen < 2.0 mg/dL (<2.0) 01/18/20 00:32 Ur Leukocyte Esterase Neg (Negative) 01/18/20 00:32 Urine WBC (Auto) 2.0 /HPF (0.0-6.0) 01/18/20 00:32 Urine RBC (Auto) 4.0 /HPF (0.0-6.0) 01/18/20 00:32 U Epithel Cells (Auto) 2.0 /HPF (0-13.0) 01/18/20 00:32 Hyaline Casts 1 /LPF 01/18/20 00:32 Urine Mucus Few /HPF 01/18/20 00:32 Urine Yeast (Budding) Few /HPF 01/18/20 00:32 Vancomycin Trough 45.4 ug/mL (5.0-20.0) H 01/30/20 05:19 Random Vancomycin 30.6 ug/mL (0-40.0) 02/01/20 03:49 Hepatitis A IgM Ab Non-reactive (NonReactive) 02/01/20 10:57 Hep Bs Antigen Non-reactive (Negative) 02/01/20 10:57 Hep B Core IgM Ab Non-reactive (NonReactive) 02/01/20 10:57 Hepatitis C Antibody Non-reactive (NonReactive) 02/01/20 10:57 Influenza A (Rapid) Negative (Negative) 01/19/20 01:10 Influenza B (Rapid) Negative (Negative) 01/19/20 01:10 AFB Identification 01/20/20 04:00 Miscellaneous Test Flexitest 1 H 01/28/20 10:00 Goldstein/IV: Voiding Method Incontinent IV Catheter Type [right ac] INT / Saline Lock IV Catheter Type [Right trialysis Femoral] IV Catheter Type [Right Peripheral IV Forearm] IV Catheter Type [Right Wrist] INT / Saline Lock IV Catheter Type [Right Hand] INT / Saline Lock IV Catheter Type [Right Upper INT / Saline Lock arm] IV Catheter Type [Left Hand] INT / Saline Lock Active Medications - Current Medications Current Medications: Generic Name Dose Route Start Last Admin Trade Name Piyushq PRN Reason Stop Dose Admin Acetaminophen 650 mg 01/17/20 23:06 01/29/20 22:43 Tylenol PO 650 mg Q4H PRN Administration Pain MILD(1-3)/Fever >100.5/COLLINS Lipase/Protease/Amylase 1 each 02/01/20 09:53 Pancretita Saldivar 10,500 Unit FEEDTUBE PRN PRN For Clogged Feeding Tube Dextrose 0 ml 01/17/20 23:06 D50w (25gm) Syringe IV Q30MIN PRN Hypoglycemia Protocol Famotidine 20 mg 01/24/20 10:00 02/10/20 09:17 Pepcid PO 20 mg QDAY COBY Administration Heparin Sodium (Porcine) 5,000 unit 01/18/20 06:00 02/10/20 14:51 Heparin SUB-Q 5,000 unit Q8HR COBY Administration Hydralazine HCl 10 mg 01/18/20 22:14 01/22/20 18:43 Apresoline IV 10 mg Q6H PRN Administration Hypertension Hydrophilic Ointment 1 applic 01/31/20 21:48 Vaseline Lip Therapy TP Q2HR PRN Dry Lips Sodium Chloride 100 mls @ 999 mls/hr 02/05/20 11:31 Nacl 0.9% IV KIRSTEN PRN Hypotension Insulin Human Isoph/Insulin Regular 25 unit 02/06/20 22:00 02/10/20 09:18 Humulin 70/30 SUB-Q Not Given BID [facility] Insulin Human Regular 5 units 02/09/20 22:00 02/10/20 16:30 Humulin R SUB-Q Not Given ACHS [facility] Insulin Human Regular 0 units 02/09/20 22:00 02/10/20 16:30 Humulin R SUB-Q Not Given ACHS [facility] Protocol Magnesium Hydroxide 30 ml 01/17/20 23:06 Milk Of Magnesia PO Q4H PRN Constipation Morphine Sulfate 2 mg 01/17/20 23:06 02/05/20 11:49 Morphine IV 2 mg Q4H PRN Administration Pain, Moderate (4-6) Multi-Ingred Cream/Lotion/Oil/Oint 1 applic 01/31/20 21:48 Artificial Tears Ophth Oint OU Q4HR PRN Dry Eye(s) Nystatin 1 applic 01/29/20 14:00 02/10/20 09:22 Nystop TP 1 applic BID COBY Administration Ondansetron HCl 4 mg 01/17/20 23:06 01/30/20 20:47 Zofran IV 4 mg Q8H PRN Administration Nausea And Vomiting Simple Syrup 15 ml 02/01/20 09:53 Simple Syrup FEEDTUBE PRN PRN Hypoglycemia Simple Syrup 30 ml 02/01/20 09:53 Simple Syrup FEEDTUBE PRN PRN Hypoglycemia Sodium Bicarbonate 325 mg 02/01/20 09:53 Sodium Bicarbonate FEEDTUBE PRN PRN For Clogged Feeding Tube Sodium Chloride 10 ml 01/18/20 10:00 02/10/20 09:17 Sodium Chloride Flush Syringe 10 Ml IV 10 ml BID COBY Administration Sodium Chloride 10 ml 01/17/20 23:06 02/04/20 05:07 Sodium Chloride Flush Syringe 10 Ml IV 10 ml PRN PRN Administration LINE FLUSH Nutrition/Malnutrition Assess - Dietary Evaluation Nutrition/Malnutrition Findings: Nutrition Notes Start: 01/18/20 13:13 Freq: Status: Active Protocol: Document 02/04/20 12:57 LM (Rec: 02/04/20 13:02 LM [id number]) Nutrition Notes Initial or Follow up Reassessment Current Diagnosis Diabetes,Sepsis Other Pertinent Diagnosis COVID-19 positive, LEV pnue, ( R) great toe wound Current Diet Vital HP 1.0 at 75ml/hr Labs/Tests Na 140 BUN 80 Cr 5.8 BG 209 Pertinent Medications Humulin Height 6 ft Weight 147.9 kg [place] Body Weight (kg) 72.72 BMI 44.1 Weight Status Morbidly Obese Subjective/Other Information Per RN pt is tolerating TF at goal. Na now in normal range. Percent of energy/protein needs met: 87%/86% Burn Absent Trauma Absent Current % PO Negligible Minimum of two criteria No physical signs of malnutrition #3 Nutrition Diagnosis Inadequate oral intake Diagnosis Progress(for reassessment Continues documentation) #2 Nutrition Diagnosis Inadequate protein-energy intake Diagnosis Progress(for reassessment Continues documentation) #1 Nutrition Diagnosis Increased nutrient needs ( specify in comment below) Diagnosis Progress(for reassessment Continues documentation) Is patient on ventilator? Yes Is Patient Ambulatory and/or Out of Bed Yes REE-([place]-St. Jeor-ambulatory/OOB) [ 3004.300 [id number]] Kcal/Kg value to use for calculation 14 Approximate Energy Requirements Using 1 kcal/Kg Calculation Used for Recommendations Kcal/kg Additional Notes Protein: 183g (up to 2.5g/kg using IBW 73kg Fluid needs 1ml/kcal Nutrition Intervention Change Diet Order: Continue TF Nutrition Support: Vital HP 1.0 at 75ml/hr Flush 50 ml q4h Kcal 1,800 Protein (gm) 158 Fluid (mL) 1,505 Goal #1 TF tolerance Goal #2 Meet at least 75% of energy and protein needs via TF Goal #3 Wound healing Anticipated Discharge Needs: unable to determine at this time Follow-Up By: 02/11/20 Additional Comments F/U for TF tolerance
[2020-02-11] MEDS: HEPARIN 5,000 UNIT/1 ML VIAL SUB-Q SCH ×3 (05:34→21:13)
[2020-02-11] MEDS: INSULIN REGULAR, HUMAN 100 UNITS/1 ML SUB-Q SCH ×8 (07:30→22:39)
[2020-02-11] MEDS: INSULIN NPH/REGULAR 70/30 INJ SUB-Q SCH (09:08)
[2020-02-11] MEDS: NYSTATIN POWDER 15 GM TP SCH ×2 (09:28→22:40)
[2020-02-11] MEDS: FAMOTIDINE 20 MG TAB PO SCH (09:29)
--- NOTE | 2020-02-11 11:55 | Progress Note ---
Assessment and Plan Assessment and plan: --Awaiting LTAC placement; However LTAC requires 2- Covid tests prior to LTAC placement Case management Assisting with discharge planning --COVID 19 induced pneumonia Acute on chronic respiratory failure requiring mechanical ventilation s/p extubation, continue nasal cannula oxygen --Acute metabolic encephalopathy; Multifactorial, supportive care --Left thigh abscess status post I&D --Diabetic foot wound nonhealing --Morbid obesity hypoventilation syndrome --Acute kidney injury secondary to vasomotor nephropathy Received HD MWF, now HD as needed basis per nephrology --Severe Sepsis/due to cough with pneumonia --Multiple Organ involvement/poor prognosis --Anemia; of chronic kidney disease Closely monitor H&H and transfuse as needed --Hyponatremia-resolved, monitor electrolytes --Type II diabetes mellitus with uncontrolled blood sugar Accu-Chek sliding scale coverage ADA diet and insulin --Morbid obesity; BMI 41.8 --Hypertension monitor closely for septic shock --Severe protein calorie malnutrition: Secondary to underlying disease process Nutrition supplements nutrition consult --DC planning; per case management -Outpatient HD chair scheduling -PEG tube placement -Possible LTAC placement -LTAC requires 2neg Covid tests DC planning per case management Plan of care reviewed with the patient and her nurse History Interval history: Patient COVID positive pneumonia In isolation, acute renal failure receiving hemodialysis per schedule Patient is critically ill, in mild distress Vital signs reviewed PUI?: No COVID19: Positive Hospitalist Physical - Physical exam Narrative exam: Limited exam due to isolation, shortness of PPE Physical exam in coordination with ID and pulmonary - Constitutional Vitals: Temp Pulse Resp BP Pulse Ox 97.9 F 83 24 169/96 98 02/11/20 11:08 02/11/20 11:45 02/11/20 11:08 02/11/20 11:45 02/10/20 21:30 General appearance: Present: mild distress, well-nourished, obese (Morbidly obese), other (Chronically ill and sick looking) - EENT Eyes: Present: PERRL, EOM intact ENT: hearing intact - Neck Neck: Present: supple - Respiratory Respiratory effort: labored Respiratory: bilateral: diminished, rhonchi, negative: rales, wheezing - Cardiovascular Rhythm: regular Heart Sounds: Present: S1 & S2 - Extremities Extremities: no ischemia, No edema - Abdominal General gastrointestinal: soft, non-tender, non-distended, normal bowel sounds - Integumentary Integumentary: Present: clear, warm - Psychiatric Psychiatric: appropriate mood/affect, cooperative - Neurologic Neurologic: moves all extremities Results - Labs CBC & Chem 7: 02/09/20 05:27 02/09/20 05:27 Labs: Laboratory Last Values WBC 8.6 K/mm3 (4.5-11.0) 02/09/20 05:27 RBC 3.20 M/mm3 (3.65-5.03) L 02/09/20 05:27 Hgb 8.4 gm/dl (10.1-14.3) L 02/09/20 05:27 Hct 25.6 % (30.3-42.9) L 02/09/20 05:27 MCV 80 fl (79-97) 02/09/20 05:27 MCH 26 pg (28-32) L 02/09/20 05:27 MCHC 33 % (30-34) 02/09/20 05:27 RDW 13.7 % (13.2-15.2) 02/09/20 05:27 Plt Count 186 K/mm3 (140-440) 02/09/20 05:27 Lymph % (Auto) 13.0 % (13.4-35.0) L 02/09/20 05:27 [place] % (Auto) 11.8 % (0.0-7.3) H 02/09/20 05:27 Eos % (Auto) 4.5 % (0.0-4.3) H 02/09/20 05:27 Baso % (Auto) 0.5 % (0.0-1.8) 02/09/20 05:27 Lymph # 1.1 K/mm3 (1.2-5.4) L 02/09/20 05:27 [place] # 1.0 K/mm3 (0.0-0.8) H 02/09/20 05:27 Eos # 0.4 K/mm3 (0.0-0.4) 02/09/20 05:27 Baso # 0.0 K/mm3 (0.0-0.1) 02/09/20 05:27 Add Manual Diff Complete 01/26/20 05:40 Total Counted 100 01/26/20 05:40 Seg Neutrophils % 70.2 % (40.0-70.0) H 02/09/20 05:27 Seg Neuts % (Manual) 90.0 % (40.0-70.0) H 01/26/20 05:40 Band Neutrophils % 5.0 % 01/26/20 05:40 Lymphocytes % (Manual) 1.0 % (13.4-35.0) L 01/26/20 05:40 Reactive Lymphs % (Man) 0 % 01/26/20 05:40 Monocytes % (Manual) 2.0 % (0.0-7.3) 01/26/20 05:40 Eosinophils % (Manual) 2.0 % (0.0-4.3) 01/26/20 05:40 Basophils % (Manual) 0 % (0.0-1.8) 01/26/20 05:40 Metamyelocytes % 0 % 01/26/20 05:40 Myelocytes % 0 % 01/26/20 05:40 Promyelocytes % 0 % 01/26/20 05:40 Blast Cells % 0 % 01/26/20 05:40 Nucleated RBC % 1.0 % (0.0-0.9) H 01/26/20 05:40 Seg Neutrophils # 6.0 K/mm3 (1.8-7.7) 02/09/20 05:27 Seg Neutrophils # Man 14.8 K/mm3 (1.8-7.7) H 01/26/20 05:40 Band Neutrophils # 0.8 K/mm3 01/26/20 05:40 Lymphocytes # (Manual) 0.2 K/mm3 (1.2-5.4) L 01/26/20 05:40 Abs React Lymphs (Man) 0.0 K/mm3 01/26/20 05:40 Monocytes # (Manual) 0.3 K/mm3 (0.0-0.8) 01/26/20 05:40 Eosinophils # (Manual) 0.3 K/mm3 (0.0-0.4) 01/26/20 05:40 Basophils # (Manual) 0.0 K/mm3 (0.0-0.1) 01/26/20 05:40 Metamyelocytes # 0.0 K/mm3 01/26/20 05:40 Myelocytes # 0.0 K/mm3 01/26/20 05:40 Promyelocytes # 0.0 K/mm3 01/26/20 05:40 Blast Cells # 0.0 K/mm3 01/26/20 05:40 WBC Morphology Not Reportable 01/26/20 05:40 Hypersegmented Neuts Not Reportable 01/26/20 05:40 Hyposegmented Neuts Not Reportable 01/26/20 05:40 Hypogranular Neuts Not Reportable 01/26/20 05:40 Smudge Cells Not Reportable 01/26/20 05:40 Toxic Granulation Not Reportable 01/26/20 05:40 Toxic Vacuolation Not Reportable 01/26/20 05:40 Dohle Bodies Not Reportable 01/26/20 05:40 Pelger-Huet Anomaly Not Reportable 01/26/20 05:40 Barbie Rods Not Reportable 01/26/20 05:40 Platelet Estimate Consistent w auto 01/26/20 05:40 Clumped Platelets Not Reportable 01/26/20 05:40 Plt Clumps, EDTA Not Reportable 01/26/20 05:40 Large Platelets Not Reportable 01/26/20 05:40 Giant Platelets Not Reportable 01/26/20 05:40 Platelet Satelliting Not Reportable 01/26/20 05:40 Plt Morphology Comment Not Reportable 01/26/20 05:40 RBC Morphology Normal 01/26/20 05:40 Dimorphic RBCs Not Reportable 01/26/20 05:40 Polychromasia Not Reportable 01/26/20 05:40 Hypochromasia Not Reportable 01/26/20 05:40 Poikilocytosis Not Reportable 01/26/20 05:40 Anisocytosis Not Reportable 01/26/20 05:40 Microcytosis Not Reportable 01/26/20 05:40 Macrocytosis Not Reportable 01/26/20 05:40 Spherocytes Not Reportable 01/26/20 05:40 Pappenheimer Bodies Not Reportable 01/26/20 05:40 Sickle Cells Not Reportable 01/26/20 05:40 Target Cells Not Reportable 01/26/20 05:40 Tear Drop Cells Not Reportable 01/26/20 05:40 Ovalocytes Not Reportable 01/26/20 05:40 Helmet Cells Not Reportable 01/26/20 05:40 [place] Bodies Not Reportable 01/26/20 05:40 [place] Rings Not Reportable 01/26/20 05:40 Pauline Cells Not Reportable 01/26/20 05:40 Bite Cells Not Reportable 01/26/20 05:40 Crenated Cell Not Reportable 01/26/20 05:40 Elliptocytes Not Reportable 01/26/20 05:40 Acanthocytes (Spur) Not Reportable 01/26/20 05:40 Rouleaux Not Reportable 01/26/20 05:40 Hemoglobin C Crystals Not Reportable 01/26/20 05:40 Schistocytes Not Reportable 01/26/20 05:40 Malaria parasites Not Reportable 01/26/20 05:40 ESR 70 mm/Hr (0-20) 01/17/20 22:58 Ras Bodies Not Reportable 01/26/20 05:40 Hem Pathologist Commnt No 01/26/20 05:40 PT 15.6 Sec. (12.2-14.9) H 01/17/20 18:28 INR 1.22 (0.87-1.13) H 01/17/20 18:28 D-Dimer 1210.49 ng/mlDDU (0-234) H 02/08/20 04:57 ABG pH 7.497 pH Units (7.350-7.450) H 02/05/20 Unknown ABG pCO2 30.2 mm Hg 02/05/20 Unknown ABG pO2 111.6 mm Hg (80.0-90.0) H 02/05/20 Unknown ABG HCO3 22.9 mmol/L (20.0-26.0) 02/05/20 Unknown ABG O2 Saturation 98.3 % (95.0-99.0) 02/05/20 Unknown ABG O2 Content 10.3 (0.0-44) 02/05/20 Unknown ABG Base Excess -0.1 mmol/L (-2.0-3.0) 02/05/20 Unknown ABG Hemoglobin 7.4 gm/dl (12.0-16.0) L 02/05/20 Unknown ABG Carboxyhemoglobin 1.3 % (0.0-5.0) 02/05/20 Unknown ABG Methemoglobin 0.4 % (0.0-1.5) 02/05/20 Unknown VBG pH 7.409 (7.320-7.420) 01/17/20 18:28 Oxyhemoglobin 96.7 % (95.0-99.0) 02/05/20 Unknown FiO2 40 % 02/05/20 Unknown Sodium 139 mmol/L (137-145) 02/09/20 05:27 Potassium 4.4 mmol/L (3.6-5.0) 02/09/20 05:27 Chloride 96.9 mmol/L (98-107) L 02/09/20 05:27 Carbon Dioxide 22 mmol/L (22-30) 02/09/20 05:27 Anion Gap 25 mmol/L 02/09/20 05:27 BUN 57 mg/dL (7-17) H 02/09/20 05:27 Creatinine 5.9 mg/dL (0.7-1.2) H 02/09/20 05:27 Estimated GFR 10 ml/min 02/09/20 05:27 BUN/Creatinine Ratio 10 % 02/09/20 05:27 Glucose 165 mg/dL (65-100) H 02/09/20 05:27 POC Glucose 112 (70-105) H 02/11/20 08:23 Hemoglobin A1c 11.6 % (4-6) H 01/18/20 12:47 Lactic Acid 1.30 mmol/L (0.7-2.0) 01/18/20 08:30 Calcium 8.6 mg/dL (8.4-10.2) 02/09/20 05:27 Magnesium 1.50 mg/dL (1.7-2.3) L 01/17/20 22:58 Ferritin 850.8 ng/mL (13.0-400.0) H 02/08/20 04:57 Total Bilirubin 0.50 mg/dL (0.1-1.2) 01/31/20 03:49 AST 112 units/L (5-40) H 01/31/20 03:49 ALT 112 units/L (7-56) H 01/31/20 03:49 Alkaline Phosphatase 145 units/L (35-129) H 01/31/20 03:49 Lactate Dehydrogenase 864 units/L (91-180) H 02/08/20 04:57 Total Creatine Kinase 122 units/L (30-135) 01/17/20 22:58 C-Reactive Protein 5.50 mg/dL (0.00-1.30) H 02/08/20 04:57 Total Protein 5.5 g/dL (6.3-8.2) L 01/31/20 03:49 Albumin 1.7 g/dL (3.9-5) L 01/31/20 03:49 Albumin/Globulin Ratio 0.4 % 01/31/20 03:49 Procalcitonin 0.27 ng/mL (<0.15) 01/23/20 10:36 HCG, Qual Negative (Negative) 01/31/20 03:49 Urine Color Yellow (Yellow) 01/18/20 00:32 Urine Turbidity Slightly-cloudy (Clear) 01/18/20 00:32 Urine pH 5.0 (5.0-7.0) 01/18/20 00:32 Ur Specific [place] 1.011 (1.003-1.030) 01/18/20 00:32 Urine Protein 100 mg/dl mg/dL (Negative) 01/18/20 00:32 Urine Glucose (UA) >=500 mg/dL (Negative) 01/18/20 00:32 Urine Ketones Tr mg/dL (Negative) 01/18/20 00:32 Urine Blood Neg (Negative) 01/18/20 00:32 Urine Nitrite Neg (Negative) 01/18/20 00:32 Urine Bilirubin Neg (Negative) 01/18/20 00:32 Urine Urobilinogen < 2.0 mg/dL (<2.0) 01/18/20 00:32 Ur Leukocyte Esterase Neg (Negative) 01/18/20 00:32 Urine WBC (Auto) 2.0 /HPF (0.0-6.0) 01/18/20 00:32 Urine RBC (Auto) 4.0 /HPF (0.0-6.0) 01/18/20 00:32 U Epithel Cells (Auto) 2.0 /HPF (0-13.0) 01/18/20 00:32 Hyaline Casts 1 /LPF 01/18/20 00:32 Urine Mucus Few /HPF 01/18/20 00:32 Urine Yeast (Budding) Few /HPF 01/18/20 00:32 Vancomycin Trough 45.4 ug/mL (5.0-20.0) H 01/30/20 05:19 Random Vancomycin 30.6 ug/mL (0-40.0) 02/01/20 03:49 Hepatitis A IgM Ab Non-reactive (NonReactive) 02/01/20 10:57 Hep Bs Antigen Non-reactive (Negative) 02/01/20 10:57 Hep B Core IgM Ab Non-reactive (NonReactive) 02/01/20 10:57 Hepatitis C Antibody Non-reactive (NonReactive) 02/01/20 10:57 Influenza A (Rapid) Negative (Negative) 01/19/20 01:10 Influenza B (Rapid) Negative (Negative) 01/19/20 01:10 AFB Identification 01/20/20 04:00 Miscellaneous Test Flexitest 1 H 01/28/20 10:00 Goldstein/IV: Voiding Method Incontinent IV Catheter Type [right ac] INT / Saline Lock IV Catheter Type [Right trialysis Femoral] IV Catheter Type [Right Peripheral IV Forearm] IV Catheter Type [Right Wrist] INT / Saline Lock IV Catheter Type [Right Hand] INT / Saline Lock IV Catheter Type [Right Upper INT / Saline Lock arm] IV Catheter Type [Left Hand] INT / Saline Lock Active Medications - Current Medications Current Medications: Generic Name Dose Route Start Last Admin Trade Name Freq PRN Reason Stop Dose Admin Acetaminophen 650 mg 01/17/20 23:06 01/29/20 22:43 Tylenol PO 650 mg Q4H PRN Administration Pain MILD(1-3)/Fever >100.5/COLLINS Lipase/Protease/Amylase 1 each 02/01/20 09:53 Pancreaze 10,500 Unit FEEDTUBE PRN PRN For Clogged Feeding Tube Dextrose 0 ml 01/17/20 23:06 D50w (25gm) Syringe IV Q30MIN PRN Hypoglycemia Protocol Famotidine 20 mg 01/24/20 10:00 02/11/20 09:29 Pepcid PO 20 mg QDAY COBY Administration Heparin Sodium (Porcine) 5,000 unit 01/18/20 06:00 02/11/20 05:34 Heparin SUB-Q 5,000 unit Q8HR COBY Administration Hydralazine HCl 10 mg 01/18/20 22:14 01/22/20 18:43 Apresoline IV 10 mg Q6H PRN Administration Hypertension Hydrophilic Ointment 1 applic 01/31/20 21:48 Vaseline Lip Therapy TP Q2HR PRN Dry Lips Sodium Chloride 100 mls @ 999 mls/hr 02/05/20 11:31 Nacl 0.9% IV KIRSTEN PRN Hypotension Insulin Human Isoph/Insulin Regular 25 unit 02/06/20 22:00 02/11/20 09:08 Humulin 70/30 SUB-Q Not Given BID COBY Insulin Human Regular 5 units 02/09/20 22:00 02/11/20 07:30 Humulin R SUB-Q Not Given ACHS [facility] Insulin Human Regular 0 units 02/09/20 22:00 02/11/20 07:30 Humulin R SUB-Q Not Given ACHS [facility] Protocol Magnesium Hydroxide 30 ml 01/17/20 23:06 Milk Of Magnesia PO Q4H PRN Constipation Morphine Sulfate 2 mg 01/17/20 23:06 02/05/20 11:49 Morphine IV 2 mg Q4H PRN Administration Pain, Moderate (4-6) Multi-Ingred Cream/Lotion/Oil/Oint 1 applic 01/31/20 21:48 Artificial Tears Ophth Oint OU Q4HR PRN Dry Eye(s) Nystatin 1 applic 01/29/20 14:00 02/11/20 09:28 Nystop TP 1 applic BID COBY Administration Ondansetron HCl 4 mg 01/17/20 23:06 01/30/20 20:47 Zofran IV 4 mg Q8H PRN Administration Nausea And Vomiting Simple Syrup 15 ml 02/01/20 09:53 Simple Syrup FEEDTUBE PRN PRN Hypoglycemia Simple Syrup 30 ml 02/01/20 09:53 Simple Syrup FEEDTUBE PRN PRN Hypoglycemia Sodium Bicarbonate 325 mg 02/01/20 09:53 Sodium Bicarbonate FEEDTUBE PRN PRN For Clogged Feeding Tube Sodium Chloride 10 ml 01/18/20 10:00 02/11/20 09:29 Sodium Chloride Flush Syringe 10 Ml IV 10 ml BID COBY Administration Sodium Chloride 10 ml 01/17/20 23:06 02/04/20 05:07 Sodium Chloride Flush Syringe 10 Ml IV 10 ml PRN PRN Administration LINE FLUSH Nutrition/Malnutrition Assess - Dietary Evaluation Nutrition/Malnutrition Findings: Nutrition Notes Start: 01/18/20 13:13 Freq: Status: Active Protocol: Document 02/04/20 12:57 LM (Rec: 02/04/20 13:02 LM [id number]) Nutrition Notes Initial or Follow up Reassessment Current Diagnosis Diabetes,Sepsis Other Pertinent Diagnosis COVID-19 positive, LEV pnue, ( R) great toe wound Current Diet Vital HP 1.0 at 75ml/hr Labs/Tests Na 140 BUN 80 Cr 5.8 BG 209 Pertinent Medications Humulin Height 6 ft Weight 147.9 kg [place] Body Weight (kg) 72.72 BMI 44.1 Weight Status Morbidly Obese Subjective/Other Information Per RN pt is tolerating TF at goal. Na now in normal range. Percent of energy/protein needs met: 87%/86% Burn Absent Trauma Absent Current % PO Negligible Minimum of two criteria No physical signs of malnutrition #3 Nutrition Diagnosis Inadequate oral intake Diagnosis Progress(for reassessment Continues documentation) #2 Nutrition Diagnosis Inadequate protein-energy intake Diagnosis Progress(for reassessment Continues documentation) #1 Nutrition Diagnosis Increased nutrient needs ( specify in comment below) Diagnosis Progress(for reassessment Continues documentation) Is patient on ventilator? Yes Is Patient Ambulatory and/or Out of Bed Yes REE-([facility]-ambulatory/OOB) [ 3004.300 [id number]] Kcal/Kg value to use for calculation 14 Approximate Energy Requirements Using 2071 kcal/Kg Calculation Used for Recommendations Kcal/kg Additional Notes Protein: 183g (up to 2.5g/kg using IBW 73kg Fluid needs 1ml/kcal Nutrition Intervention Change Diet Order: Continue TF Nutrition Support: Vital HP 1.0 at 75ml/hr Flush 50 ml q4h Kcal 1,800 Protein (gm) 158 Fluid (mL) 1,505 Goal #1 TF tolerance Goal #2 Meet at least 75% of energy and protein needs via TF Goal #3 Wound healing Anticipated Discharge Needs: unable to determine at this time Follow-Up By: 02/11/20 Additional Comments F/U for TF tolerance
--- NOTE | 2020-02-11 13:27 | Progress Note ---
Assessment and Plan Acute Hypoxemic Respiratory failure Severe Sepsis COVID-19 infection Left upper lobe pneumonia Diabetes II Morbid obesity Febrile illness Diabetic foot ulcer Hyponatremia Lactic acidosis - no new issues; continue care as below - continue to wean supplemental oxygen to keep O2 sats > 90% - COVID-19 precautions per [facility] protocol - continue contact, droplet and airborne precautions - off Plaquenil - Follow IL-6 (sent out) to evaluate cytokine release syndrome due to COVID and consider IV tocilizumab (Actemra) (off-label use)- per ID recommendations - Very high inflammatory markers - ferritin 2758; CRP/LDH trending down (At risk for cytokine storm secondary to COVID and high risk for ARDS) - Conservative fluid management (use vasopressors including midodrine to support blood pressure). - Accuchecks with glycemic control, keep blood glucose < 180 mg/dL (Avoid hypoglycemia) - Avoid nephrotoxins, adjust and dose all medications fro GFR and CrCL - continue GI & VTE prophylaxis - continue wound care per RN / WCT - continue surgical evaluation - prn analgesia per pain score - mobility protocols to prevent pressure ulcers - continued smoking abstinence strongly counseled at the bedside prior to decom pensation - GI & VTE prophylaxis - Flu & pneumovax per protocol - continue other care per attending / other consultants ... re-evaluate in am & prn CONDITION: FAIR PROGNOSIS: IMPROVED CODE STATUS: FULL CODE Subjective Date of service: 02/11/20 Principal diagnosis: Severe Sepsis; LEV PNA; DM II; COVID-19 infection; CIPRIANO Interval history: Patient is seen today for: Acute Hypoxemic Respiratory failure; Severe Sepsis; LEV pneumonia; Diabetes II; Morbid obesity; COVID-19 infection; Diabetic foot ulcer; Hyponatremia; Lactic acidosis Seen and examined at bedside; 24hour events reviewed; nursing and respiratory care staff consulted; no adverse overnight events reported to me; resting peacefully in bed; denies acute chest [pains or palpitations; off oxygen PUI?: No COVID19: Positive Objective Vital Signs - 12hr 02/11/20 02/11/20 02/11/20 11:08 11:19 11:30 Temperature 97.9 F Pulse Rate 81 80 81 Respiratory 24 Rate Blood Pressure 147/77 159/81 152/83 02/11/20 02/11/20 02/11/20 11:45 12:00 12:15 Temperature Pulse Rate 83 71 70 Respiratory Rate Blood Pressure 169/96 175/97 181/89 02/11/20 02/11/20 02/11/20 12:30 12:45 13:00 Temperature Pulse Rate 72 72 69 Respiratory Rate Blood Pressure 183/92 176/80 179/86 02/11/20 13:15 Temperature Pulse Rate 70 Respiratory Rate Blood Pressure 186/86 Constitutional: alert, other (young obese AAF, normocephalic with mildly increased resp effort at rest) Eyes: non-icteric ENT: oropharynx moist, other (extubated) Neck: supple, no lymphadenopathy, no JVD Effort: mildly labored Ascultation: Bilateral: diminished breath sounds, rales (scant in bases) Percussion: Bilateral: not dull Cardiovascular: regular rate and rhythm Gastrointestinal: normoactive bowel sounds, soft, non-tender, non-distended Integumentary: normal Extremities: no cyanosis, no edema, pulses normal, no ischemia or petechiae Neurologic: normal mental status, non-focal exam, pupils equal and round, CN II- XII normal Psychiatric: mood appropriate, affect normal CBC and BMP: 02/09/20 05:27 02/09/20 05:27 ABG, PT/INR, D-dimer: ABG ABG pH 7.497 pH Units (7.350-7.450) H 02/05/20 Unknown ABG pCO2 30.2 mm Hg 02/05/20 Unknown ABG pO2 111.6 mm Hg (80.0-90.0) H 02/05/20 Unknown ABG O2 Saturation 98.3 % (95.0-99.0) 02/05/20 Unknown PT/INR, D-dimer PT 15.6 Sec. (12.2-14.9) H 01/17/20 18:28 INR 1.22 (0.87-1.13) H 01/17/20 18:28 D-Dimer 1210.49 ng/mlDDU (0-234) H 02/08/20 04:57 Abnormal lab findings: Abnormal Labs 01/17/20 01/17/20 01/17/20 18:28 18:28 18:28 WBC RBC Hgb Hct MCV MCH 26 L RDW Lymph % (Auto) 9.3 L Edgar % (Auto) Eos % (Auto) Lymph # 1.0 L Edgar # Seg Neutrophils % 86.7 H Seg Neuts % (Manual) Lymphocytes % (Manual) Nucleated RBC % Seg Neutrophils # 9.6 H Seg Neutrophils # Man Lymphocytes # (Manual) PT 15.6 H INR 1.22 H D-Dimer ABG pH ABG pO2 ABG HCO3 ABG O2 Saturation ABG Base Excess ABG Hemoglobin Oxyhemoglobin Sodium 126 L Potassium Chloride 89.3 L Carbon Dioxide 19 L BUN Creatinine Glucose 397 H POC Glucose Hemoglobin A1c Lactic Acid Calcium Magnesium Ferritin AST ALT Alkaline Phosphatase Lactate Dehydrogenase C-Reactive Protein Total Protein 9.0 H Albumin Vancomycin Trough Random Vancomycin Miscellaneous Test 01/17/20 01/17/20 01/17/20 18:28 22:58 22:58 WBC RBC Hgb Hct MCV MCH RDW Lymph % (Auto) Edgar % (Auto) Eos % (Auto) Lymph # Edgar # Seg Neutrophils % Seg Neuts % (Manual) Lymphocytes % (Manual) Nucleated RBC % Seg Neutrophils # Seg Neutrophils # Man Lymphocytes # (Manual) PT INR D-Dimer ABG pH ABG pO2 ABG HCO3 ABG O2 Saturation ABG Base Excess ABG Hemoglobin Oxyhemoglobin Sodium Potassium Chloride Carbon Dioxide BUN Creatinine Glucose POC Glucose Hemoglobin A1c Lactic Acid 3.40 H* 2.30 H* Calcium Magnesium 1.50 L Ferritin AST ALT Alkaline Phosphatase Lactate Dehydrogenase C-Reactive Protein 16.60 H Total Protein Albumin Vancomycin Trough Random Vancomycin Miscellaneous Test 01/18/20 01/18/20 01/18/20 00:46 06:34 08:30 WBC RBC Hgb Hct MCV MCH 26 L RDW 12.7 L Lymph % (Auto) Edgar % (Auto) Eos % (Auto) Lymph # Edgar # Seg Neutrophils % 80.1 H Seg Neuts % (Manual) Lymphocytes % (Manual) Nucleated RBC % Seg Neutrophils # Seg Neutrophils # Man Lymphocytes # (Manual) PT INR D-Dimer ABG pH ABG pO2 ABG HCO3 ABG O2 Saturation ABG Base Excess ABG Hemoglobin Oxyhemoglobin Sodium Potassium Chloride Carbon Dioxide BUN Creatinine Glucose POC Glucose 338 H 266 H Hemoglobin A1c Lactic Acid Calcium Magnesium Ferritin AST ALT Alkaline Phosphatase Lactate Dehydrogenase C-Reactive Protein Total Protein Albumin Vancomycin Trough Random Vancomycin Miscellaneous Test 01/18/20 01/18/20 01/18/20 08:30 08:35 12:30 WBC RBC Hgb Hct MCV MCH RDW Lymph % (Auto) Edgar % (Auto) Eos % (Auto) Lymph # Edgar # Seg Neutrophils % Seg Neuts % (Manual) Lymphocytes % (Manual) Nucleated RBC % Seg Neutrophils # Seg Neutrophils # Man Lymphocytes # (Manual) PT INR D-Dimer ABG pH ABG pO2 ABG HCO3 ABG O2 Saturation ABG Base Excess ABG Hemoglobin Oxyhemoglobin Sodium 135 L D Potassium Chloride Carbon Dioxide BUN Creatinine Glucose 250 H POC Glucose 224 H 213 H Hemoglobin A1c Lactic Acid Calcium Magnesium Ferritin AST ALT Alkaline Phosphatase Lactate Dehydrogenase C-Reactive Protein Total Protein Albumin Vancomycin Trough Random Vancomycin Miscellaneous Test 01/18/20 01/18/20 01/18/20 12:47 16:56 22:03 WBC RBC Hgb Hct MCV MCH RDW Lymph % (Auto) Edgar % (Auto) Eos % (Auto) Lymph # Edgar # Seg Neutrophils % Seg Neuts % (Manual) Lymphocytes % (Manual) Nucleated RBC % Seg Neutrophils # Seg Neutrophils # Man Lymphocytes # (Manual) PT INR D-Dimer ABG pH ABG pO2 ABG HCO3 ABG O2 Saturation ABG Base Excess ABG Hemoglobin Oxyhemoglobin Sodium Potassium Chloride Carbon Dioxide BUN Creatinine Glucose POC Glucose 270 H 239 H Hemoglobin A1c 11.6 H Lactic Acid Calcium Magnesium Ferritin AST ALT Alkaline Phosphatase Lactate Dehydrogenase C-Reactive Protein Total Protein Albumin Vancomycin Trough Random Vancomycin Miscellaneous Test 01/19/20 01/19/20 01/19/20 06:15 11:48 13:09 WBC RBC Hgb Hct MCV MCH 26 L RDW Lymph % (Auto) Edgar % (Auto) Eos % (Auto) Lymph # Edgar # Seg Neutrophils % Seg Neuts % (Manual) Lymphocytes % (Manual) Nucleated RBC % Seg Neutrophils # Seg Neutrophils # Man Lymphocytes # (Manual) PT INR D-Dimer ABG pH ABG pO2 ABG HCO3 ABG O2 Saturation ABG Base Excess ABG Hemoglobin Oxyhemoglobin Sodium Potassium Chloride Carbon Dioxide BUN Creatinine Glucose POC Glucose 248 H 268 H Hemoglobin A1c Lactic Acid Calcium Magnesium Ferritin AST ALT Alkaline Phosphatase Lactate Dehydrogenase C-Reactive Protein Total Protein Albumin Vancomycin Trough Random Vancomycin Miscellaneous Test 01/19/20 01/19/20 01/20/20 17:44 21:09 09:03 WBC RBC Hgb Hct MCV MCH RDW Lymph % (Auto) Edgar % (Auto) Eos % (Auto) Lymph # Edgar # Seg Neutrophils % Seg Neuts % (Manual) Lymphocytes % (Manual) Nucleated RBC % Seg Neutrophils # Seg Neutrophils # Man Lymphocytes # (Manual) PT INR D-Dimer ABG pH ABG pO2 ABG HCO3 ABG O2 Saturation ABG Base Excess ABG Hemoglobin Oxyhemoglobin Sodium Potassium Chloride Carbon Dioxide BUN Creatinine Glucose POC Glucose 214 H 261 H 241 H Hemoglobin A1c Lactic Acid Calcium Magnesium Ferritin AST ALT Alkaline Phosphatase Lactate Dehydrogenase C-Reactive Protein Total Protein Albumin Vancomycin Trough Random Vancomycin Miscellaneous Test 01/20/20 01/20/20 01/20/20 12:10 17:00 19:43 WBC RBC Hgb Hct MCV MCH RDW Lymph % (Auto) Edgar % (Auto) Eos % (Auto) Lymph # Edgar # Seg Neutrophils % Seg Neuts % (Manual) Lymphocytes % (Manual) Nucleated RBC % Seg Neutrophils # Seg Neutrophils # Man Lymphocytes # (Manual) PT INR D-Dimer ABG pH ABG pO2 ABG HCO3 ABG O2 Saturation ABG Base Excess ABG Hemoglobin Oxyhemoglobin Sodium Potassium Chloride Carbon Dioxide BUN Creatinine Glucose POC Glucose 284 H 272 H Hemoglobin A1c Lactic Acid Calcium Magnesium Ferritin AST ALT Alkaline Phosphatase Lactate Dehydrogenase C-Reactive Protein Total Protein Albumin Vancomycin Trough 4.0 L Random Vancomycin Miscellaneous Test 01/20/20 01/21/20 01/21/20 22:39 09:29 11:41 WBC RBC Hgb Hct MCV MCH 26 L RDW Lymph % (Auto) Edgar % (Auto) Eos % (Auto) Lymph # Edgar # Seg Neutrophils % Seg Neuts % (Manual) Lymphocytes % (Manual) Nucleated RBC % Seg Neutrophils # Seg Neutrophils # Man Lymphocytes # (Manual) PT INR D-Dimer ABG pH ABG pO2 ABG HCO3 ABG O2 Saturation ABG Base Excess ABG Hemoglobin Oxyhemoglobin Sodium Potassium Chloride Carbon Dioxide BUN Creatinine Glucose POC Glucose 248 H 238 H Hemoglobin A1c Lactic Acid Calcium Magnesium Ferritin AST ALT Alkaline Phosphatase Lactate Dehydrogenase C-Reactive Protein Total Protein Albumin Vancomycin Trough Random Vancomycin Miscellaneous Test 01/21/20 01/21/20 01/21/20 11:41 12:27 16:55 WBC RBC Hgb Hct MCV MCH RDW Lymph % (Auto) Edgar % (Auto) Eos % (Auto) Lymph # Edgar # Seg Neutrophils % Seg Neuts % (Manual) Lymphocytes % (Manual) Nucleated RBC % Seg Neutrophils # Seg Neutrophils # Man Lymphocytes # (Manual) PT INR D-Dimer ABG pH ABG pO2 ABG HCO3 ABG O2 Saturation ABG Base Excess ABG Hemoglobin Oxyhemoglobin Sodium 132 L Potassium 3.5 L Chloride 97.0 L Carbon Dioxide 19 L BUN Creatinine Glucose 274 H POC Glucose 264 H 261 H Hemoglobin A1c Lactic Acid Calcium Magnesium Ferritin AST ALT Alkaline Phosphatase Lactate Dehydrogenase C-Reactive Protein Total Protein Albumin Vancomycin Trough Random Vancomycin Miscellaneous Test 01/21/20 01/22/20 01/22/20 22:39 09:05 12:57 WBC RBC Hgb Hct MCV MCH RDW Lymph % (Auto) Edgar % (Auto) Eos % (Auto) Lymph # Edgar # Seg Neutrophils % Seg Neuts % (Manual) Lymphocytes % (Manual) Nucleated RBC % Seg Neutrophils # Seg Neutrophils # Man Lymphocytes # (Manual) PT INR D-Dimer ABG pH ABG pO2 ABG HCO3 ABG O2 Saturation ABG Base Excess ABG Hemoglobin Oxyhemoglobin Sodium Potassium Chloride Carbon Dioxide BUN Creatinine Glucose POC Glucose 243 H 258 H 252 H Hemoglobin A1c Lactic Acid Calcium Magnesium Ferritin AST ALT Alkaline Phosphatase Lactate Dehydrogenase C-Reactive Protein Total Protein Albumin Vancomycin Trough Random Vancomycin Miscellaneous Test 01/22/20 01/22/20 01/23/20 17:14 21:30 09:03 WBC RBC Hgb Hct MCV MCH RDW Lymph % (Auto) Edgar % (Auto) Eos % (Auto) Lymph # Edgar # Seg Neutrophils % Seg Neuts % (Manual) Lymphocytes % (Manual) Nucleated RBC % Seg Neutrophils # Seg Neutrophils # Man Lymphocytes # (Manual) PT INR D-Dimer ABG pH ABG pO2 ABG HCO3 ABG O2 Saturation ABG Base Excess ABG Hemoglobin Oxyhemoglobin Sodium Potassium Chloride Carbon Dioxide BUN Creatinine Glucose POC Glucose 306 H 217 H 156 H Hemoglobin A1c Lactic Acid Calcium Magnesium Ferritin AST ALT Alkaline Phosphatase Lactate Dehydrogenase C-Reactive Protein Total Protein Albumin Vancomycin Trough Random Vancomycin Miscellaneous Test 01/23/20 01/23/20 01/23/20 10:36 11:12 17:11 WBC RBC Hgb Hct MCV MCH RDW Lymph % (Auto) Edgar % (Auto) Eos % (Auto) Lymph # Edgar # Seg Neutrophils % Seg Neuts % (Manual) Lymphocytes % (Manual) Nucleated RBC % Seg Neutrophils # Seg Neutrophils # Man Lymphocytes # (Manual) PT INR D-Dimer ABG pH ABG pO2 ABG HCO3 ABG O2 Saturation ABG Base Excess ABG Hemoglobin Oxyhemoglobin Sodium Potassium 3.0 L Chloride Carbon Dioxide 21 L BUN Creatinine Glucose 266 H POC Glucose 244 H 238 H Hemoglobin A1c Lactic Acid Calcium 8.3 L Magnesium Ferritin AST ALT Alkaline Phosphatase Lactate Dehydrogenase C-Reactive Protein Total Protein Albumin Vancomycin Trough Random Vancomycin Miscellaneous Test 01/23/20 01/24/20 01/24/20 22:57 06:03 12:12 WBC RBC Hgb Hct MCV MCH RDW Lymph % (Auto) Edgar % (Auto) Eos % (Auto) Lymph # Edgar # Seg Neutrophils % Seg Neuts % (Manual) Lymphocytes % (Manual) Nucleated RBC % Seg Neutrophils # Seg Neutrophils # Man Lymphocytes # (Manual) PT INR D-Dimer ABG pH ABG pO2 ABG HCO3 ABG O2 Saturation ABG Base Excess ABG Hemoglobin Oxyhemoglobin Sodium Potassium 3.2 L Chloride Carbon Dioxide 19 L BUN Creatinine Glucose 231 H POC Glucose 228 H 210 H Hemoglobin A1c Lactic Acid Calcium 8.2 L Magnesium Ferritin AST ALT Alkaline Phosphatase Lactate Dehydrogenase C-Reactive Protein Total Protein Albumin Vancomycin Trough Random Vancomycin Miscellaneous Test 01/24/20 01/24/20 01/24/20 12:50 19:01 21:49 WBC RBC Hgb Hct MCV MCH RDW Lymph % (Auto) Edgar % (Auto) Eos % (Auto) Lymph # Edgar # Seg Neutrophils % Seg Neuts % (Manual) Lymphocytes % (Manual) Nucleated RBC % Seg Neutrophils # Seg Neutrophils # Man Lymphocytes # (Manual) PT INR D-Dimer ABG pH 7.485 H ABG pO2 63.4 L ABG HCO3 ABG O2 Saturation ABG Base Excess ABG Hemoglobin 5.0 L Oxyhemoglobin Sodium Potassium Chloride Carbon Dioxide BUN Creatinine Glucose POC Glucose 183 H 193 H Hemoglobin A1c Lactic Acid Calcium Magnesium Ferritin AST ALT Alkaline Phosphatase Lactate Dehydrogenase C-Reactive Protein Total Protein Albumin Vancomycin Trough Random Vancomycin Miscellaneous Test 01/25/20 01/25/20 01/25/20 09:13 16:58 22:23 WBC RBC Hgb Hct MCV MCH RDW Lymph % (Auto) Edgar % (Auto) Eos % (Auto) Lymph # Edgar # Seg Neutrophils % Seg Neuts % (Manual) Lymphocytes % (Manual) Nucleated RBC % Seg Neutrophils # Seg Neutrophils # Man Lymphocytes # (Manual) PT INR D-Dimer ABG pH ABG pO2 ABG HCO3 ABG O2 Saturation ABG Base Excess ABG Hemoglobin Oxyhemoglobin Sodium Potassium Chloride Carbon Dioxide BUN Creatinine Glucose POC Glucose 196 H 231 H 159 H Hemoglobin A1c Lactic Acid Calcium Magnesium Ferritin AST ALT Alkaline Phosphatase Lactate Dehydrogenase C-Reactive Protein Total Protein Albumin Vancomycin Trough Random Vancomycin Miscellaneous Test 01/26/20 01/26/20 01/26/20 05:40 05:40 05:40 WBC 16.4 H RBC Hgb Hct MCV MCH 26 L RDW 12.9 L Lymph % (Auto) Edgar % (Auto) Eos % (Auto) Lymph # Edgar # Seg Neutrophils % Seg Neuts % (Manual) 90.0 H Lymphocytes % (Manual) 1.0 L Nucleated RBC % 1.0 H Seg Neutrophils # Seg Neutrophils # Man 14.8 H Lymphocytes # (Manual) 0.2 L PT INR D-Dimer 2624.11 H ABG pH ABG pO2 ABG HCO3 ABG O2 Saturation ABG Base Excess ABG Hemoglobin Oxyhemoglobin Sodium 135 L Potassium 2.7 L* Chloride Carbon Dioxide 21 L BUN Creatinine Glucose 132 H POC Glucose Hemoglobin A1c Lactic Acid Calcium 8.0 L Magnesium Ferritin AST ALT Alkaline Phosphatase Lactate Dehydrogenase C-Reactive Protein Total Protein Albumin Vancomycin Trough Random Vancomycin Miscellaneous Test 01/26/20 01/26/20 01/26/20 05:40 05:40 08:58 WBC RBC Hgb Hct MCV MCH RDW Lymph % (Auto) Edgar % (Auto) Eos % (Auto) Lymph # Edgar # Seg Neutrophils % Seg Neuts % (Manual) Lymphocytes % (Manual) Nucleated RBC % Seg Neutrophils # Seg Neutrophils # Man Lymphocytes # (Manual) PT INR D-Dimer ABG pH ABG pO2 ABG HCO3 ABG O2 Saturation ABG Base Excess ABG Hemoglobin Oxyhemoglobin Sodium Potassium Chloride Carbon Dioxide BUN Creatinine Glucose POC Glucose 131 H Hemoglobin A1c Lactic Acid Calcium Magnesium Ferritin 2758.0 H AST ALT Alkaline Phosphatase Lactate Dehydrogenase C-Reactive Protein 26.90 H Total Protein Albumin Vancomycin Trough Random Vancomycin Miscellaneous Test 01/26/20 01/26/20 01/26/20 13:00 16:30 21:22 WBC RBC Hgb Hct MCV MCH RDW Lymph % (Auto) Edgar % (Auto) Eos % (Auto) Lymph # Edgar # Seg Neutrophils % Seg Neuts % (Manual) Lymphocytes % (Manual) Nucleated RBC % Seg Neutrophils # Seg Neutrophils # Man Lymphocytes # (Manual) PT INR D-Dimer ABG pH ABG pO2 ABG HCO3 ABG O2 Saturation ABG Base Excess ABG Hemoglobin Oxyhemoglobin Sodium Potassium Chloride Carbon Dioxide BUN Creatinine Glucose POC Glucose 136 H 146 H 139 H Hemoglobin A1c Lactic Acid Calcium Magnesium Ferritin AST ALT Alkaline Phosphatase Lactate Dehydrogenase C-Reactive Protein Total Protein Albumin Vancomycin Trough Random Vancomycin Miscellaneous Test 01/27/20 01/27/20 01/27/20 05:14 07:37 12:05 WBC RBC Hgb Hct MCV MCH RDW Lymph % (Auto) Edgar % (Auto) Eos % (Auto) Lymph # Edgar # Seg Neutrophils % Seg Neuts % (Manual) Lymphocytes % (Manual) Nucleated RBC % Seg Neutrophils # Seg Neutrophils # Man Lymphocytes # (Manual) PT INR D-Dimer ABG pH ABG pO2 ABG HCO3 ABG O2 Saturation ABG Base Excess ABG Hemoglobin Oxyhemoglobin Sodium 135 L Potassium 3.4 L D Chloride Carbon Dioxide 17 L BUN 24 H Creatinine 1.4 H D Glucose 143 H POC Glucose 133 H 141 H Hemoglobin A1c Lactic Acid Calcium 7.6 L Magnesium Ferritin AST ALT Alkaline Phosphatase Lactate Dehydrogenase C-Reactive Protein Total Protein Albumin Vancomycin Trough Random Vancomycin Miscellaneous Test 01/27/20 01/27/20 01/27/20 17:37 22:14 23:53 WBC RBC Hgb Hct MCV MCH RDW Lymph % (Auto) Edgar % (Auto) Eos % (Auto) Lymph # Edgar # Seg Neutrophils % Seg Neuts % (Manual) Lymphocytes % (Manual) Nucleated RBC % Seg Neutrophils # Seg Neutrophils # Man Lymphocytes # (Manual) PT INR D-Dimer 2675.43 H ABG pH ABG pO2 ABG HCO3 ABG O2 Saturation ABG Base Excess ABG Hemoglobin Oxyhemoglobin Sodium Potassium Chloride Carbon Dioxide BUN Creatinine Glucose POC Glucose 153 H 124 H Hemoglobin A1c Lactic Acid Calcium Magnesium Ferritin AST ALT Alkaline Phosphatase Lactate Dehydrogenase C-Reactive Protein Total Protein Albumin Vancomycin Trough Random Vancomycin Miscellaneous Test 01/27/20 01/27/20 01/28/20 23:53 23:53 08:36 WBC RBC Hgb Hct MCV MCH RDW Lymph % (Auto) Edgar % (Auto) Eos % (Auto) Lymph # Edgar # Seg Neutrophils % Seg Neuts % (Manual) Lymphocytes % (Manual) Nucleated RBC % Seg Neutrophils # Seg Neutrophils # Man Lymphocytes # (Manual) PT INR D-Dimer ABG pH ABG pO2 ABG HCO3 ABG O2 Saturation ABG Base Excess ABG Hemoglobin Oxyhemoglobin Sodium Potassium Chloride Carbon Dioxide BUN Creatinine Glucose POC Glucose 165 H Hemoglobin A1c Lactic Acid Calcium Magnesium Ferritin 3523.0 H AST ALT Alkaline Phosphatase Lactate Dehydrogenase 1132 H C-Reactive Protein 15.60 H Total Protein Albumin Vancomycin Trough Random Vancomycin Miscellaneous Test 01/28/20 01/28/20 01/28/20 10:00 10:00 10:00 WBC RBC Hgb Hct MCV MCH RDW Lymph % (Auto) Edgar % (Auto) Eos % (Auto) Lymph # Edgar # Seg Neutrophils % Seg Neuts % (Manual) Lymphocytes % (Manual) Nucleated RBC % Seg Neutrophils # Seg Neutrophils # Man Lymphocytes # (Manual) PT INR D-Dimer ABG pH ABG pO2 ABG HCO3 ABG O2 Saturation ABG Base Excess ABG Hemoglobin Oxyhemoglobin Sodium 131 L Potassium 3.5 L Chloride Carbon Dioxide 16 L BUN 51 H Creatinine 3.5 H D Glucose 180 H POC Glucose Hemoglobin A1c Lactic Acid Calcium 7.5 L Magnesium Ferritin AST ALT Alkaline Phosphatase Lactate Dehydrogenase C-Reactive Protein Total Protein Albumin Vancomycin Trough Random Vancomycin 65.8 H Miscellaneous Test Flexitest 1 H 01/28/20 01/28/20 01/28/20 12:42 17:27 22:06 WBC RBC Hgb Hct MCV MCH RDW Lymph % (Auto) Edgar % (Auto) Eos % (Auto) Lymph # Edgar # Seg Neutrophils % Seg Neuts % (Manual) Lymphocytes % (Manual) Nucleated RBC % Seg Neutrophils # Seg Neutrophils # Man Lymphocytes # (Manual) PT INR D-Dimer ABG pH ABG pO2 ABG HCO3 ABG O2 Saturation ABG Base Excess ABG Hemoglobin Oxyhemoglobin Sodium Potassium Chloride Carbon Dioxide BUN Creatinine Glucose POC Glucose 188 H 161 H 158 H Hemoglobin A1c Lactic Acid Calcium Magnesium Ferritin AST ALT Alkaline Phosphatase Lactate Dehydrogenase C-Reactive Protein Total Protein Albumin Vancomycin Trough Random Vancomycin Miscellaneous Test 01/29/20 01/29/20 01/29/20 07:29 07:29 08:20 WBC 17.0 H RBC Hgb 9.6 L Hct 29.5 L MCV MCH 26 L RDW Lymph % (Auto) Edgar % (Auto) Eos % (Auto) Lymph # Edgar # Seg Neutrophils % Seg Neuts % (Manual) Lymphocytes % (Manual) Nucleated RBC % Seg Neutrophils # Seg Neutrophils # Man Lymphocytes # (Manual) PT INR D-Dimer ABG pH ABG pO2 ABG HCO3 ABG O2 Saturation ABG Base Excess ABG Hemoglobin Oxyhemoglobin Sodium 133 L Potassium Chloride Carbon Dioxide 15 L BUN 69 H Creatinine 4.1 H Glucose 161 H POC Glucose 170 H Hemoglobin A1c Lactic Acid Calcium 7.6 L Magnesium Ferritin AST ALT Alkaline Phosphatase Lactate Dehydrogenase C-Reactive Protein Total Protein Albumin Vancomycin Trough Random Vancomycin Miscellaneous Test 01/29/20 01/29/20 01/29/20 11:54 11:54 11:54 WBC RBC Hgb Hct MCV MCH RDW Lymph % (Auto) Edgar % (Auto) Eos % (Auto) Lymph # Edgar # Seg Neutrophils % Seg Neuts % (Manual) Lymphocytes % (Manual) Nucleated RBC % Seg Neutrophils # Seg Neutrophils # Man Lymphocytes # (Manual) PT INR D-Dimer 1499 H ABG pH ABG pO2 ABG HCO3 ABG O2 Saturation ABG Base Excess ABG Hemoglobin Oxyhemoglobin Sodium Potassium Chloride Carbon Dioxide BUN Creatinine Glucose POC Glucose Hemoglobin A1c Lactic Acid Calcium Magnesium Ferritin > 2000.0 H AST ALT Alkaline Phosphatase Lactate Dehydrogenase 946 H C-Reactive Protein 13.30 H Total Protein Albumin Vancomycin Trough Random Vancomycin Miscellaneous Test 01/29/20 01/29/20 01/29/20 12:55 16:19 22:13 WBC RBC Hgb Hct MCV MCH RDW Lymph % (Auto) Edgar % (Auto) Eos % (Auto) Lymph # Edgar # Seg Neutrophils % Seg Neuts % (Manual) Lymphocytes % (Manual) Nucleated RBC % Seg Neutrophils # Seg Neutrophils # Man Lymphocytes # (Manual) PT INR D-Dimer ABG pH ABG pO2 ABG HCO3 ABG O2 Saturation ABG Base Excess ABG Hemoglobin Oxyhemoglobin Sodium Potassium Chloride Carbon Dioxide BUN Creatinine Glucose POC Glucose 142 H 146 H 142 H Hemoglobin A1c Lactic Acid Calcium Magnesium Ferritin AST ALT Alkaline Phosphatase Lactate Dehydrogenase C-Reactive Protein Total Protein Albumin Vancomycin Trough Random Vancomycin Miscellaneous Test 01/30/20 01/30/20 01/30/20 05:19 05:19 08:04 WBC RBC Hgb Hct MCV MCH RDW Lymph % (Auto) Edgar % (Auto) Eos % (Auto) Lymph # Edgar # Seg Neutrophils % Seg Neuts % (Manual) Lymphocytes % (Manual) Nucleated RBC % Seg Neutrophils # Seg Neutrophils # Man Lymphocytes # (Manual) PT INR D-Dimer ABG pH ABG pO2 ABG HCO3 ABG O2 Saturation ABG Base Excess ABG Hemoglobin Oxyhemoglobin Sodium 134 L Potassium Chloride Carbon Dioxide 14 L BUN 87 H Creatinine 4.4 H Glucose 172 H POC Glucose 153 H Hemoglobin A1c Lactic Acid Calcium 7.6 L Magnesium Ferritin AST 152 H ALT 124 H Alkaline Phosphatase Lactate Dehydrogenase C-Reactive Protein Total Protein 5.5 L Albumin 1.8 L Vancomycin Trough 45.4 H Random Vancomycin Miscellaneous Test 01/30/20 01/30/20 01/30/20 12:21 16:51 22:54 WBC RBC Hgb Hct MCV MCH RDW Lymph % (Auto) Edgar % (Auto) Eos % (Auto) Lymph # Edgar # Seg Neutrophils % Seg Neuts % (Manual) Lymphocytes % (Manual) Nucleated RBC % Seg Neutrophils # Seg Neutrophils # Man Lymphocytes # (Manual) PT INR D-Dimer ABG pH ABG pO2 ABG HCO3 ABG O2 Saturation ABG Base Excess ABG Hemoglobin Oxyhemoglobin Sodium Potassium Chloride Carbon Dioxide BUN Creatinine Glucose POC Glucose 147 H 119 H 129 H Hemoglobin A1c Lactic Acid Calcium Magnesium Ferritin AST ALT Alkaline Phosphatase Lactate Dehydrogenase C-Reactive Protein Total Protein Albumin Vancomycin Trough Random Vancomycin Miscellaneous Test 01/31/20 01/31/20 01/31/20 03:49 03:49 03:49 WBC RBC Hgb Hct MCV MCH RDW Lymph % (Auto) Edgar % (Auto) Eos % (Auto) Lymph # Edgar # Seg Neutrophils % Seg Neuts % (Manual) Lymphocytes % (Manual) Nucleated RBC % Seg Neutrophils # Seg Neutrophils # Man Lymphocytes # (Manual) PT INR D-Dimer 801.37 H ABG pH ABG pO2 ABG HCO3 ABG O2 Saturation ABG Base Excess ABG Hemoglobin Oxyhemoglobin Sodium 134 L Potassium Chloride Carbon Dioxide 13 L BUN 97 H Creatinine 4.8 H Glucose 123 H POC Glucose Hemoglobin A1c Lactic Acid Calcium 7.6 L Magnesium Ferritin 3101.0 H AST 112 H ALT 112 H Alkaline Phosphatase 145 H Lactate Dehydrogenase 896 H C-Reactive Protein 11.10 H Total Protein 5.5 L Albumin 1.7 L Vancomycin Trough Random Vancomycin Miscellaneous Test 01/31/20 01/31/20 01/31/20 03:49 08:00 11:48 WBC 16.1 H RBC Hgb Hct MCV MCH 25 L RDW Lymph % (Auto) Edgar % (Auto) Eos % (Auto) Lymph # Edgar # Seg Neutrophils % Seg Neuts % (Manual) Lymphocytes % (Manual) Nucleated RBC % Seg Neutrophils # Seg Neutrophils # Man Lymphocytes # (Manual) PT INR D-Dimer ABG pH ABG pO2 ABG HCO3 ABG O2 Saturation ABG Base Excess ABG Hemoglobin Oxyhemoglobin Sodium Potassium Chloride Carbon Dioxide BUN Creatinine Glucose POC Glucose 133 H 136 H Hemoglobin A1c Lactic Acid Calcium Magnesium Ferritin AST ALT Alkaline Phosphatase Lactate Dehydrogenase C-Reactive Protein Total Protein Albumin Vancomycin Trough Random Vancomycin Miscellaneous Test 01/31/20 01/31/20 01/31/20 16:14 21:37 22:35 WBC RBC Hgb Hct MCV MCH RDW Lymph % (Auto) Edgar % (Auto) Eos % (Auto) Lymph # Edgar # Seg Neutrophils % Seg Neuts % (Manual) Lymphocytes % (Manual) Nucleated RBC % Seg Neutrophils # Seg Neutrophils # Man Lymphocytes # (Manual) PT INR D-Dimer ABG pH 7.226 L ABG pO2 77.9 L ABG HCO3 15.2 L ABG O2 Saturation 93.5 L ABG Base Excess -11.6 L ABG Hemoglobin Oxyhemoglobin 91.5 L Sodium Potassium Chloride Carbon Dioxide BUN Creatinine Glucose POC Glucose 151 H 179 H Hemoglobin A1c Lactic Acid Calcium Magnesium Ferritin AST ALT Alkaline Phosphatase Lactate Dehydrogenase C-Reactive Protein Total Protein Albumin Vancomycin Trough Random Vancomycin Miscellaneous Test 02/01/20 02/01/20 02/01/20 03:49 03:49 04:30 WBC 19.3 H RBC 3.53 L Hgb 9.0 L Hct 28.1 L MCV MCH 26 L RDW Lymph % (Auto) Edgar % (Auto) Eos % (Auto) Lymph # Edgar # Seg Neutrophils % Seg Neuts % (Manual) Lymphocytes % (Manual) Nucleated RBC % Seg Neutrophils # Seg Neutrophils # Man Lymphocytes # (Manual) PT INR D-Dimer ABG pH 7.290 L ABG pO2 120.0 H ABG HCO3 14.2 L ABG O2 Saturation ABG Base Excess -11.2 L ABG Hemoglobin 9.3 L Oxyhemoglobin Sodium 135 L Potassium Chloride Carbon Dioxide 13 L BUN 79 H Creatinine 4.1 H Glucose 198 H POC Glucose Hemoglobin A1c Lactic Acid Calcium 7.0 L Magnesium Ferritin AST ALT Alkaline Phosphatase Lactate Dehydrogenase C-Reactive Protein Total Protein Albumin Vancomycin Trough Random Vancomycin Miscellaneous Test 02/01/20 02/01/20 02/02/20 08:13 11:29 00:05 WBC RBC Hgb Hct MCV MCH RDW Lymph % (Auto) Edgar % (Auto) Eos % (Auto) Lymph # Edgar # Seg Neutrophils % Seg Neuts % (Manual) Lymphocytes % (Manual) Nucleated RBC % Seg Neutrophils # Seg Neutrophils # Man Lymphocytes # (Manual) PT INR D-Dimer ABG pH ABG pO2 ABG HCO3 ABG O2 Saturation ABG Base Excess ABG Hemoglobin Oxyhemoglobin Sodium Potassium Chloride Carbon Dioxide BUN Creatinine Glucose POC Glucose 153 H 181 H 214 H Hemoglobin A1c Lactic Acid Calcium Magnesium Ferritin AST ALT Alkaline Phosphatase Lactate Dehydrogenase C-Reactive Protein Total Protein Albumin Vancomycin Trough Random Vancomycin Miscellaneous Test 02/02/20 02/02/20 02/02/20 04:17 04:30 04:30 WBC RBC Hgb Hct MCV MCH RDW Lymph % (Auto) Edgar % (Auto) Eos % (Auto) Lymph # Edgar # Seg Neutrophils % Seg Neuts % (Manual) Lymphocytes % (Manual) Nucleated RBC % Seg Neutrophils # Seg Neutrophils # Man Lymphocytes # (Manual) PT INR D-Dimer 795.93 H ABG pH ABG pO2 ABG HCO3 ABG O2 Saturation ABG Base Excess -3.0 L ABG Hemoglobin 8.5 L Oxyhemoglobin Sodium Potassium Chloride Carbon Dioxide BUN Creatinine Glucose POC Glucose Hemoglobin A1c Lactic Acid Calcium Magnesium Ferritin 1978.0 H AST ALT Alkaline Phosphatase Lactate Dehydrogenase C-Reactive Protein Total Protein Albumin Vancomycin Trough Random Vancomycin Miscellaneous Test 02/02/20 02/02/20 02/02/20 04:30 04:30 05:34 WBC 17.3 H RBC 3.24 L Hgb 8.4 L Hct 24.9 L MCV 77 L MCH 26 L RDW Lymph % (Auto) Edgar % (Auto) Eos % (Auto) Lymph # Edgar # Seg Neutrophils % Seg Neuts % (Manual) Lymphocytes % (Manual) Nucleated RBC % Seg Neutrophils # Seg Neutrophils # Man Lymphocytes # (Manual) PT INR D-Dimer ABG pH ABG pO2 ABG HCO3 ABG O2 Saturation ABG Base Excess ABG Hemoglobin Oxyhemoglobin Sodium Potassium Chloride Carbon Dioxide 17 L BUN 61 H Creatinine 4.1 H Glucose 244 H POC Glucose 274 H Hemoglobin A1c Lactic Acid Calcium 7.2 L Magnesium Ferritin AST ALT Alkaline Phosphatase Lactate Dehydrogenase 841 H C-Reactive Protein 11.50 H Total Protein Albumin Vancomycin Trough Random Vancomycin Miscellaneous Test 02/02/20 02/02/20 02/02/20 12:26 18:06 23:37 WBC RBC Hgb Hct MCV MCH RDW Lymph % (Auto) Edgar % (Auto) Eos % (Auto) Lymph # Edgar # Seg Neutrophils % Seg Neuts % (Manual) Lymphocytes % (Manual) Nucleated RBC % Seg Neutrophils # Seg Neutrophils # Man Lymphocytes # (Manual) PT INR D-Dimer ABG pH ABG pO2 ABG HCO3 ABG O2 Saturation ABG Base Excess ABG Hemoglobin Oxyhemoglobin Sodium Potassium Chloride Carbon Dioxide BUN Creatinine Glucose POC Glucose 254 H 285 H 239 H Hemoglobin A1c Lactic Acid Calcium Magnesium Ferritin AST ALT Alkaline Phosphatase Lactate Dehydrogenase C-Reactive Protein Total Protein Albumin Vancomycin Trough Random Vancomycin Miscellaneous Test 02/03/20 02/03/20 02/03/20 04:40 04:56 10:41 WBC RBC Hgb Hct MCV MCH RDW Lymph % (Auto) Edgar % (Auto) Eos % (Auto) Lymph # Edgar # Seg Neutrophils % Seg Neuts % (Manual) Lymphocytes % (Manual) Nucleated RBC % Seg Neutrophils # Seg Neutrophils # Man Lymphocytes # (Manual) PT INR D-Dimer ABG pH 7.520 H ABG pO2 73.8 L 92.5 H ABG HCO3 ABG O2 Saturation ABG Base Excess ABG Hemoglobin 8.6 L 7.9 L Oxyhemoglobin Sodium Potassium Chloride Carbon Dioxide BUN Creatinine Glucose POC Glucose 227 H Hemoglobin A1c Lactic Acid Calcium Magnesium Ferritin AST ALT Alkaline Phosphatase Lactate Dehydrogenase C-Reactive Protein Total Protein Albumin Vancomycin Trough Random Vancomycin Miscellaneous Test 02/03/20 02/03/20 02/03/20 12:09 17:23 23:41 WBC RBC Hgb Hct MCV MCH RDW Lymph % (Auto) Edgar % (Auto) Eos % (Auto) Lymph # Edgar # Seg Neutrophils % Seg Neuts % (Manual) Lymphocytes % (Manual) Nucleated RBC % Seg Neutrophils # Seg Neutrophils # Man Lymphocytes # (Manual) PT INR D-Dimer ABG pH ABG pO2 ABG HCO3 ABG O2 Saturation ABG Base Excess ABG Hemoglobin Oxyhemoglobin Sodium Potassium Chloride Carbon Dioxide BUN Creatinine Glucose POC Glucose 268 H 255 H 239 H Hemoglobin A1c Lactic Acid Calcium Magnesium Ferritin AST ALT Alkaline Phosphatase Lactate Dehydrogenase C-Reactive Protein Total Protein Albumin Vancomycin Trough Random Vancomycin Miscellaneous Test 02/04/20 02/04/20 02/04/20 04:31 04:42 04:42 WBC RBC Hgb Hct MCV MCH RDW Lymph % (Auto) Edgar % (Auto) Eos % (Auto) Lymph # Edgar # Seg Neutrophils % Seg Neuts % (Manual) Lymphocytes % (Manual) Nucleated RBC % Seg Neutrophils # Seg Neutrophils # Man Lymphocytes # (Manual) PT INR D-Dimer 694.19 H ABG pH ABG pO2 ABG HCO3 ABG O2 Saturation ABG Base Excess ABG Hemoglobin Oxyhemoglobin Sodium Potassium Chloride Carbon Dioxide BUN Creatinine Glucose POC Glucose 216 H Hemoglobin A1c Lactic Acid Calcium Magnesium Ferritin 1660.0 H AST ALT Alkaline Phosphatase Lactate Dehydrogenase C-Reactive Protein Total Protein Albumin Vancomycin Trough Random Vancomycin Miscellaneous Test 02/04/20 02/04/20 02/04/20 04:42 04:42 12:03 WBC 13.7 H RBC 2.92 L Hgb 7.4 L Hct 23.0 L MCV MCH 25 L RDW Lymph % (Auto) Edgar % (Auto) Eos % (Auto) Lymph # Edgar # Seg Neutrophils % Seg Neuts % (Manual) Lymphocytes % (Manual) Nucleated RBC % Seg Neutrophils # Seg Neutrophils # Man Lymphocytes # (Manual) PT INR D-Dimer ABG pH ABG pO2 ABG HCO3 ABG O2 Saturation ABG Base Excess ABG Hemoglobin Oxyhemoglobin Sodium Potassium Chloride Carbon Dioxide 17 L BUN 80 H Creatinine 5.8 H Glucose 209 H POC Glucose 248 H Hemoglobin A1c Lactic Acid Calcium 8.3 L D Magnesium Ferritin AST ALT Alkaline Phosphatase Lactate Dehydrogenase 972 H C-Reactive Protein 6.20 H Total Protein Albumin Vancomycin Trough Random Vancomycin Miscellaneous Test 02/04/20 02/04/20 02/04/20 17:42 23:48 Unknown WBC RBC Hgb Hct MCV MCH RDW Lymph % (Auto) Edgar % (Auto) Eos % (Auto) Lymph # Edgar # Seg Neutrophils % Seg Neuts % (Manual) Lymphocytes % (Manual) Nucleated RBC % Seg Neutrophils # Seg Neutrophils # Man Lymphocytes # (Manual) PT INR D-Dimer ABG pH 7.484 H ABG pO2 104.8 H ABG HCO3 ABG O2 Saturation ABG Base Excess ABG Hemoglobin 9.5 L Oxyhemoglobin Sodium Potassium Chloride Carbon Dioxide BUN Creatinine Glucose POC Glucose 209 H 166 H Hemoglobin A1c Lactic Acid Calcium Magnesium Ferritin AST ALT Alkaline Phosphatase Lactate Dehydrogenase C-Reactive Protein Total Protein Albumin Vancomycin Trough Random Vancomycin Miscellaneous Test 02/05/20 02/05/20 02/05/20 03:51 03:51 05:43 WBC 13.9 H RBC 2.98 L Hgb 7.6 L Hct 23.4 L MCV MCH 26 L RDW Lymph % (Auto) Edgar % (Auto) Eos % (Auto) Lymph # Edgar # Seg Neutrophils % Seg Neuts % (Manual) Lymphocytes % (Manual) Nucleated RBC % Seg Neutrophils # Seg Neutrophils # Man Lymphocytes # (Manual) PT INR D-Dimer ABG pH ABG pO2 ABG HCO3 ABG O2 Saturation ABG Base Excess ABG Hemoglobin Oxyhemoglobin Sodium Potassium Chloride Carbon Dioxide 19 L BUN 65 H Creatinine 5.9 H Glucose 167 H POC Glucose 148 H Hemoglobin A1c Lactic Acid Calcium 8.3 L Magnesium Ferritin AST ALT Alkaline Phosphatase Lactate Dehydrogenase C-Reactive Protein Total Protein Albumin Vancomycin Trough Random Vancomycin Miscellaneous Test 02/05/20 02/05/20 02/05/20 12:34 18:55 23:48 WBC RBC Hgb Hct MCV MCH RDW Lymph % (Auto) Edgar % (Auto) Eos % (Auto) Lymph # Edgar # Seg Neutrophils % Seg Neuts % (Manual) Lymphocytes % (Manual) Nucleated RBC % Seg Neutrophils # Seg Neutrophils # Man Lymphocytes # (Manual) PT INR D-Dimer ABG pH ABG pO2 ABG HCO3 ABG O2 Saturation ABG Base Excess ABG Hemoglobin Oxyhemoglobin Sodium Potassium Chloride Carbon Dioxide BUN Creatinine Glucose POC Glucose 267 H 166 H 241 H Hemoglobin A1c Lactic Acid Calcium Magnesium Ferritin AST ALT Alkaline Phosphatase Lactate Dehydrogenase C-Reactive Protein Total Protein Albumin Vancomycin Trough Random Vancomycin Miscellaneous Test 02/05/20 02/06/20 02/06/20 Unknown 03:38 03:38 WBC RBC Hgb Hct MCV MCH RDW Lymph % (Auto) Edgar % (Auto) Eos % (Auto) Lymph # Edgar # Seg Neutrophils % Seg Neuts % (Manual) Lymphocytes % (Manual) Nucleated RBC % Seg Neutrophils # Seg Neutrophils # Man Lymphocytes # (Manual) PT INR D-Dimer 1067.61 H ABG pH 7.497 H ABG pO2 111.6 H ABG HCO3 ABG O2 Saturation ABG Base Excess ABG Hemoglobin 7.4 L Oxyhemoglobin Sodium Potassium Chloride Carbon Dioxide BUN Creatinine Glucose POC Glucose Hemoglobin A1c Lactic Acid Calcium Magnesium Ferritin 1277.0 H AST ALT Alkaline Phosphatase Lactate Dehydrogenase C-Reactive Protein Total Protein Albumin Vancomycin Trough Random Vancomycin Miscellaneous Test 02/06/20 02/06/20 02/06/20 03:38 03:38 06:04 WBC 13.8 H RBC 3.16 L Hgb 8.0 L Hct 25.7 L MCV MCH 25 L RDW Lymph % (Auto) Edgar % (Auto) Eos % (Auto) Lymph # Edgar # Seg Neutrophils % Seg Neuts % (Manual) Lymphocytes % (Manual) Nucleated RBC % Seg Neutrophils # Seg Neutrophils # Man Lymphocytes # (Manual) PT INR D-Dimer ABG pH ABG pO2 ABG HCO3 ABG O2 Saturation ABG Base Excess ABG Hemoglobin Oxyhemoglobin Sodium Potassium Chloride Carbon Dioxide 21 L BUN 66 H Creatinine 6.0 H Glucose 213 H POC Glucose 232 H Hemoglobin A1c Lactic Acid Calcium Magnesium Ferritin AST ALT Alkaline Phosphatase Lactate Dehydrogenase 48 L C-Reactive Protein Total Protein Albumin Vancomycin Trough Random Vancomycin Miscellaneous Test 02/06/20 02/06/20 02/06/20 11:54 17:34 22:20 WBC RBC Hgb Hct MCV MCH RDW Lymph % (Auto) Edgar % (Auto) Eos % (Auto) Lymph # Edgar # Seg Neutrophils % Seg Neuts % (Manual) Lymphocytes % (Manual) Nucleated RBC % Seg Neutrophils # Seg Neutrophils # Man Lymphocytes # (Manual) PT INR D-Dimer ABG pH ABG pO2 ABG HCO3 ABG O2 Saturation ABG Base Excess ABG Hemoglobin Oxyhemoglobin Sodium Potassium Chloride Carbon Dioxide BUN Creatinine Glucose POC Glucose 230 H 220 H 262 H Hemoglobin A1c Lactic Acid Calcium Magnesium Ferritin AST ALT Alkaline Phosphatase Lactate Dehydrogenase C-Reactive Protein Total Protein Albumin Vancomycin Trough Random Vancomycin Miscellaneous Test 02/07/20 02/07/20 02/07/20 05:05 05:05 05:24 WBC 15.0 H RBC 3.30 L Hgb 8.3 L Hct 26.6 L MCV MCH 25 L RDW Lymph % (Auto) Edgar % (Auto) Eos % (Auto) Lymph # Edgar # Seg Neutrophils % Seg Neuts % (Manual) Lymphocytes % (Manual) Nucleated RBC % Seg Neutrophils # Seg Neutrophils # Man Lymphocytes # (Manual) PT INR D-Dimer ABG pH ABG pO2 ABG HCO3 ABG O2 Saturation ABG Base Excess ABG Hemoglobin Oxyhemoglobin Sodium Potassium Chloride Carbon Dioxide BUN 63 H Creatinine 6.1 H Glucose 231 H POC Glucose 192 H Hemoglobin A1c Lactic Acid Calcium Magnesium Ferritin AST ALT Alkaline Phosphatase Lactate Dehydrogenase C-Reactive Protein Total Protein Albumin Vancomycin Trough Random Vancomycin Miscellaneous Test 02/07/20 02/07/20 02/07/20 12:07 16:45 22:44 WBC RBC Hgb Hct MCV MCH RDW Lymph % (Auto) Edgar % (Auto) Eos % (Auto) Lymph # Edgar # Seg Neutrophils % Seg Neuts % (Manual) Lymphocytes % (Manual) Nucleated RBC % Seg Neutrophils # Seg Neutrophils # Man Lymphocytes # (Manual) PT INR D-Dimer ABG pH ABG pO2 ABG HCO3 ABG O2 Saturation ABG Base Excess ABG Hemoglobin Oxyhemoglobin Sodium Potassium Chloride Carbon Dioxide BUN Creatinine Glucose POC Glucose 218 H 191 H 172 H Hemoglobin A1c Lactic Acid Calcium Magnesium Ferritin AST ALT Alkaline Phosphatase Lactate Dehydrogenase C-Reactive Protein Total Protein Albumin Vancomycin Trough Random Vancomycin Miscellaneous Test 02/08/20 02/08/20 02/08/20 04:57 04:57 04:57 WBC RBC Hgb Hct MCV MCH RDW Lymph % (Auto) Edgar % (Auto) Eos % (Auto) Lymph # Edgar # Seg Neutrophils % Seg Neuts % (Manual) Lymphocytes % (Manual) Nucleated RBC % Seg Neutrophils # Seg Neutrophils # Man Lymphocytes # (Manual) PT INR D-Dimer 1210.49 H ABG pH ABG pO2 ABG HCO3 ABG O2 Saturation ABG Base Excess ABG Hemoglobin Oxyhemoglobin Sodium Potassium Chloride Carbon Dioxide BUN Creatinine Glucose POC Glucose Hemoglobin A1c Lactic Acid Calcium Magnesium Ferritin 850.8 H AST ALT Alkaline Phosphatase Lactate Dehydrogenase 864 H C-Reactive Protein 5.50 H Total Protein Albumin Vancomycin Trough Random Vancomycin Miscellaneous Test 02/08/20 02/08/20 02/08/20 06:33 11:50 17:06 WBC RBC Hgb Hct MCV MCH RDW Lymph % (Auto) Edgar % (Auto) Eos % (Auto) Lymph # Edgar # Seg Neutrophils % Seg Neuts % (Manual) Lymphocytes % (Manual) Nucleated RBC % Seg Neutrophils # Seg Neutrophils # Man Lymphocytes # (Manual) PT INR D-Dimer ABG pH ABG pO2 ABG HCO3 ABG O2 Saturation ABG Base Excess ABG Hemoglobin Oxyhemoglobin Sodium Potassium Chloride Carbon Dioxide BUN Creatinine Glucose POC Glucose 178 H 166 H 170 H Hemoglobin A1c Lactic Acid Calcium Magnesium Ferritin AST ALT Alkaline Phosphatase Lactate Dehydrogenase C-Reactive Protein Total Protein Albumin Vancomycin Trough Random Vancomycin Miscellaneous Test 02/08/20 02/09/20 02/09/20 23:43 04:47 05:27 WBC RBC 3.20 L Hgb 8.4 L Hct 25.6 L MCV MCH 26 L RDW Lymph % (Auto) 13.0 L Edgar % (Auto) 11.8 H Eos % (Auto) 4.5 H Lymph # 1.1 L Edgar # 1.0 H Seg Neutrophils % 70.2 H Seg Neuts % (Manual) Lymphocytes % (Manual) Nucleated RBC % Seg Neutrophils # Seg Neutrophils # Man Lymphocytes # (Manual) PT INR D-Dimer ABG pH ABG pO2 ABG HCO3 ABG O2 Saturation ABG Base Excess ABG Hemoglobin Oxyhemoglobin Sodium Potassium Chloride Carbon Dioxide BUN Creatinine Glucose POC Glucose 110 H 154 H Hemoglobin A1c Lactic Acid Calcium Magnesium Ferritin AST ALT Alkaline Phosphatase Lactate Dehydrogenase C-Reactive Protein Total Protein Albumin Vancomycin Trough Random Vancomycin Miscellaneous Test 02/09/20 02/09/20 02/09/20 05:27 11:23 17:33 WBC RBC Hgb Hct MCV MCH RDW Lymph % (Auto) Edgar % (Auto) Eos % (Auto) Lymph # Edgar # Seg Neutrophils % Seg Neuts % (Manual) Lymphocytes % (Manual) Nucleated RBC % Seg Neutrophils # Seg Neutrophils # Man Lymphocytes # (Manual) PT INR D-Dimer ABG pH ABG pO2 ABG HCO3 ABG O2 Saturation ABG Base Excess ABG Hemoglobin Oxyhemoglobin Sodium Potassium Chloride 96.9 L Carbon Dioxide BUN 57 H Creatinine 5.9 H Glucose 165 H POC Glucose 177 H 130 H Hemoglobin A1c Lactic Acid Calcium Magnesium Ferritin AST ALT Alkaline Phosphatase Lactate Dehydrogenase C-Reactive Protein Total Protein Albumin Vancomycin Trough Random Vancomycin Miscellaneous Test 02/10/20 02/10/20 02/10/20 07:42 12:01 16:53 WBC RBC Hgb Hct MCV MCH RDW Lymph % (Auto) Edgar % (Auto) Eos % (Auto) Lymph # Edgar # Seg Neutrophils % Seg Neuts % (Manual) Lymphocytes % (Manual) Nucleated RBC % Seg Neutrophils # Seg Neutrophils # Man Lymphocytes # (Manual) PT INR D-Dimer ABG pH ABG pO2 ABG HCO3 ABG O2 Saturation ABG Base Excess ABG Hemoglobin Oxyhemoglobin Sodium Potassium Chloride Carbon Dioxide BUN Creatinine Glucose POC Glucose 115 H 127 H 122 H Hemoglobin A1c Lactic Acid Calcium Magnesium Ferritin AST ALT Alkaline Phosphatase Lactate Dehydrogenase C-Reactive Protein Total Protein Albumin Vancomycin Trough Random Vancomycin Miscellaneous Test 02/11/20 08:23 WBC RBC Hgb Hct MCV MCH RDW Lymph % (Auto) Edgar % (Auto) Eos % (Auto) Lymph # Edgar # Seg Neutrophils % Seg Neuts % (Manual) Lymphocytes % (Manual) Nucleated RBC % Seg Neutrophils # Seg Neutrophils # Man Lymphocytes # (Manual) PT INR D-Dimer ABG pH ABG pO2 ABG HCO3 ABG O2 Saturation ABG Base Excess ABG Hemoglobin Oxyhemoglobin Sodium Potassium Chloride Carbon Dioxide BUN Creatinine Glucose POC Glucose 112 H Hemoglobin A1c Lactic Acid Calcium Magnesium Ferritin AST ALT Alkaline Phosphatase Lactate Dehydrogenase C-Reactive Protein Total Protein Albumin Vancomycin Trough Random Vancomycin Miscellaneous Test Allied health notes reviewed: nursing
[2020-02-11] MEDS: hydrALAZINE 20 MG/1 ML INJ IV PRN (14:45)
--- NOTE | 2020-02-11 14:47 | Progress Note ---
Assessment and Plan Cultures: Blood culture 01/17/2020 no growth to date Urine culture 01/17/2020 no growth to date Sputum normal resp dulce OR culture no growth today A/P: 29-year-old female past medical history diabetes admitted with acute sepsis secondary to right foot wound versus pneumonia. #Acute sepsis: Secondary to her left thigh abscess versus pneumonia. #Severe COVID-19 pneumonia: S/p plaquenil Day 5 of 5 #Acute respiratory failure: self extubated, was on venturi mask, now on [place] O2 2L. #Left thigh abscess: surgery on board s/p I+D with wound VAC. Completed 7 days of Zosyn. #Right foot wound: Will need MRI when more stable to rule out osteomyelitis of the toe. #Diabetes: uncontrolled. #CIPRIANO: on HD. #Morbid obesity Recs: ContinueCOVID isolationprecautions per [facility] protocol Right foot toe infection stable, deferred MRI for now May need home O2 supplementation Mark Montero MD, FACP [facility] ([facility]) C: [phone] O: [phone] F: [phone] Subjective Date of service: 02/11/20 Principal diagnosis: Severe Sepsis; LEV PNA; DM II; COVID-19 infection; CIPRIANO Interval history: No fever. On oxygen, 2 liters NC. PUI?: No COVID19: Positive Objective - Exam Narrative Exam: Physical Exam (reviewed in chart due to PPE conservation) Constitutional: limited due to PPE conservation strategy Head, Ears, Nose: limited due to PPE conservation strategy Eyes: limited due to PPE conservation strategy Neck: limited due to PPE conservation strategy Oral: limited due to PPE conservation strategy Cardiovascular: limited due to PPE conservation strategy Respiratory: limited due to PPE conservation strategy GI: limited due to PPE conservation strategy Musculoskeletal: limited due to PPE conservation strategy Skin: limited due to PPE conservation strategy Hem/Lymphatic: limited due to PPE conservation strategy Psych: limited due to PPE conservation strategy Neurological: limited due to PPE conservation strategy - Constitutional Vitals: Vital Signs Temp Pulse Resp BP Pulse Ox 97.9 F 90 24 159/89 98 02/11/20 11:08 02/11/20 14:00 02/11/20 11:08 02/11/20 14:20 02/10/20 21:30 Temperature -Last 24 Hours Temperature 97.9 F Temperature 98.4 F Temperature 98.6 F - Labs CBC & Chem 7: 02/09/20 05:27 02/09/20 05:27 Labs: Abnormal lab results 02/10/20 02/11/20 Range/Units 16:53 08:23 POC Glucose 122 H 112 H (70-105)
--- NOTE | 2020-02-11 16:52 | Progress Note ---
Assessment and Plan - Patient Problems (1) Acute kidney injury (CIPRIANO) with acute tubular necrosis (ATN) Current Visit: Yes Status: Acute Plan to address problem: Patient dialysis dependent. kidney indices stable. need to start thinking of doing less for outpatient dialysis since your renal recovery yet. We will continue to reevaluate on a daily basis (2) Type 2 diabetes mellitus with hyperglycemia Current Visit: Yes Status: Acute Plan to address problem: Blood sugar control by primary attending (3) Pneumonia due to COVID-19 virus Current Visit: Yes Status: Acute Plan to address problem: patient has improved. (4) Abscess of left thigh Current Visit: Yes Status: Acute Plan to address problem: sepsis secondary to left thigh abscess. Status post drainage. Improved with antibiotics (5) Hypertension Current Visit: Yes Status: Acute Qualifiers: Qualified Code(s): I10 - Essential (primary) hypertension Plan to address problem: follow-up blood pressure on current medications Subjective Date of service: 02/11/20 Principal diagnosis: Severe Sepsis; LEV PNA; DM II; COVID-19 infection; CIPRIANO Interval history: patient seen sitting in a chair. She has no complaints. Denies any chest pain or shortness of breath. She is feeling better. PUI?: No COVID19: Positive Objective - Exam Narrative Exam: obese young -[place] female sitting on the chairin no acute distress HEENT: Normocephalic atraumatic, pupils equal round reactive to light ETT intact Neck: Supple, no venous distention, no goiter CVS: S1S2 RRR No murmur, rub or gallop Lungs: Clear to auscultation, Abdomen: Obese soft, nontender, no organomegaly no bruit, bowel sounds are present Extremities: Mild edema, no cyanosis or clubbing Urinary: Deferred Musculo-skeletal: No joint deformities or swelling, dressing right 1st toe Neuro: Awake, alert, no focal deficits - Vital Signs Vital signs: Vital Signs - 12hr 02/11/20 02/11/20 02/11/20 11:08 11:19 11:30 Temperature 97.9 F Pulse Rate 81 80 81 Respiratory 24 Rate Blood Pressure 147/77 159/81 152/83 02/11/20 02/11/20 02/11/20 11:45 12:00 12:15 Temperature Pulse Rate 83 71 70 Respiratory Rate Blood Pressure 169/96 175/97 181/89 02/11/20 02/11/20 02/11/20 12:30 12:45 13:00 Temperature Pulse Rate 72 72 69 Respiratory Rate Blood Pressure 183/92 176/80 179/86 02/11/20 02/11/20 02/11/20 13:15 13:30 13:45 Temperature Pulse Rate 70 86 88 Respiratory Rate Blood Pressure 186/86 170/79 169/97 02/11/20 02/11/20 02/11/20 14:00 14:20 14:45 Temperature Pulse Rate 90 82 Respiratory Rate Blood Pressure 163/83 159/89 175/92 - Lab 02/09/20 05:27 02/09/20 05:27 Most recent lab results ABG pH 7.497 pH Units (7.350-7.450) H 02/05/20 Unknown ABG pCO2 30.2 mm Hg 02/05/20 Unknown ABG pO2 111.6 mm Hg (80.0-90.0) H 02/05/20 Unknown ABG HCO3 22.9 mmol/L (20.0-26.0) 02/05/20 Unknown ABG O2 Saturation 98.3 % (95.0-99.0) 02/05/20 Unknown Calcium 8.6 mg/dL (8.4-10.2) 02/09/20 05:27 Magnesium 1.50 mg/dL (1.7-2.3) L 01/17/20 22:58 Medications & Allergies - Medications Allergies/Adverse Reactions: Allergies No Known Allergies Allergy (Verified 09/12/18 00:37) Home Medications: Home Medications Medication Instructions Recorded Confirmed Last Taken Type glipiZIDE-Metformin 5-500 mg 500 mg PO BID 01/17/20 01/17/20 Unknown History Active Medications: Generic Name Dose Route Start Last Admin Trade Name Freq PRN Reason Stop Dose Admin Acetaminophen 650 mg 01/17/20 23:06 01/29/20 22:43 Tylenol PO 650 mg Q4H PRN Administration Pain MILD(1-3)/Fever >100.5/COLLINS Lipase/Protease/Amylase 1 each 02/01/20 09:53 Pancretita Saldivar 10,500 Unit FEEDTUBE PRN PRN For Clogged Feeding Tube Dextrose 0 ml 01/17/20 23:06 D50w (25gm) Syringe IV Q30MIN PRN Hypoglycemia Protocol Famotidine 20 mg 01/24/20 10:00 02/11/20 09:29 Pepcid PO 20 mg QDAY COBY Administration Heparin Sodium (Porcine) 5,000 unit 01/18/20 06:00 02/11/20 14:46 Heparin SUB-Q 5,000 unit Q8HR COBY Administration Hydralazine HCl 10 mg 01/18/20 22:14 02/11/20 14:45 Apresoline IV 10 mg Q6H PRN Administration Hypertension Hydrophilic Ointment 1 applic 01/31/20 21:48 Vaseline Lip Therapy TP Q2HR PRN Dry Lips Sodium Chloride 100 mls @ 999 mls/hr 02/05/20 11:31 Nacl 0.9% IV KIRSTEN PRN Hypotension Insulin Human Regular 5 units 02/09/20 22:00 02/11/20 12:54 Humulin R SUB-Q Not Given ACHS COBY Insulin Human Regular 0 units 02/09/20 22:00 02/11/20 12:55 Humulin R SUB-Q Not Given ACHS [facility] Protocol Magnesium Hydroxide 30 ml 01/17/20 23:06 Milk Of Magnesia PO Q4H PRN Constipation Morphine Sulfate 2 mg 01/17/20 23:06 02/05/20 11:49 Morphine IV 2 mg Q4H PRN Administration Pain, Moderate (4-6) Multi-Ingred Cream/Lotion/Oil/Oint 1 applic 01/31/20 21:48 Artificial Tears Ophth Oint OU Q4HR PRN Dry Eye(s) Nystatin 1 applic 01/29/20 14:00 02/11/20 09:28 Nystop TP 1 applic BID COBY Administration Ondansetron HCl 4 mg 01/17/20 23:06 01/30/20 20:47 Zofran IV 4 mg Q8H PRN Administration Nausea And Vomiting Simple Syrup 15 ml 02/01/20 09:53 Simple Syrup FEEDTUBE PRN PRN Hypoglycemia Simple Syrup 30 ml 02/01/20 09:53 Simple Syrup FEEDTUBE PRN PRN Hypoglycemia Sodium Bicarbonate 325 mg 02/01/20 09:53 Sodium Bicarbonate FEEDTUBE PRN PRN For Clogged Feeding Tube Sodium Chloride 10 ml 01/18/20 10:00 02/11/20 09:29 Sodium Chloride Flush Syringe 10 Ml IV 10 ml BID COBY Administration Sodium Chloride 10 ml 01/17/20 23:06 02/04/20 05:07 Sodium Chloride Flush Syringe 10 Ml IV 10 ml PRN PRN Administration LINE FLUSH
[2020-02-11] MEDS: ACETAMINOPHEN 325 MG TAB PO PRN (21:12)
[2020-02-12] MEDS: HEPARIN 5,000 UNIT/1 ML VIAL SUB-Q SCH ×3 (05:23→22:16)
[2020-02-12] MEDS: INSULIN REGULAR, HUMAN 100 UNITS/1 ML SUB-Q SCH ×8 (07:30→22:37)
[2020-02-12] MEDS: hydrALAZINE 20 MG/1 ML INJ IV PRN (07:50)
[2020-02-12] MEDS ORDERED: LIP THERAPY VASELINE TP PRN (13:31)
--- NOTE | 2020-02-12 13:48 | Progress Note ---
Assessment and Plan s/p extensive left thigh abscess incision, drainage and skin excision. Wound healing well with wound vac therapy. afebrile, stable. Will fill out paper work for home wound vac therapy and out patient wound care. Due to her insurance she may not be able to be seen at outpatient wound clinic here. Wound care nurse spoke to patient about calling [facility] and see which outpatient wound care facilities she will be covered. COVID-19 positive - treatment and other abx being managed by ID DM - being managed by primary. Subjective Date of service: 02/12/20 Patient Reports: Positive: no new complaints, feels better (no acute events overnight. Pt able to communicate effectively. Denies pain. Wound vac was dislodged over the last 48 hours and had wet to dry dressing placed. ) Objective Vital Signs - 12hr 02/12/20 02/12/20 02/12/20 05:09 07:50 12:23 Temperature 98.5 F 97.0 F L Pulse Rate 85 85 81 Respiratory 20 20 Rate Blood Pressure 173/95 173/95 157/89 O2 Sat by Pulse 99 100 Oximetry - General physical appearance well developed, no distress, no pain - Respiratory normal expansion, normal respiratory effort - Integumentary other (anterior thigh eschars unroofed and debrided. fibrinous exudate excised. wound bed clean with good granulation tissue and no drainage, no odor, less tender. superfical epithelium sloughing) - Labs 02/09/20 05:27 02/09/20 05:27
--- NOTE | 2020-02-12 13:54 | Progress Note ---
Assessment and Plan - Patient Problems (1) Acute kidney injury (CIPRIANO) with acute tubular necrosis (ATN) Current Visit: Yes Status: Acute Plan to address problem: Patient dialysis dependent. kidney indices stable. Arrange outpatient dialysis since no renal recovery yet. We will continue to reevaluate on a daily basis (2) Type 2 diabetes mellitus with hyperglycemia Current Visit: Yes Status: Acute Plan to address problem: Blood sugar control by primary attending (3) Pneumonia due to COVID-19 virus Current Visit: Yes Status: Acute Plan to address problem: patient has improved. (4) Abscess of left thigh Current Visit: Yes Status: Acute Plan to address problem: sepsis secondary to left thigh abscess. Status post drainage. Improved with antibiotics (5) Hypertension Current Visit: Yes Status: Acute Qualifiers: Qualified Code(s): I10 - Essential (primary) hypertension Plan to address problem: follow-up blood pressure on current medications Subjective Date of service: 02/12/20 Principal diagnosis: Severe Sepsis; LEV PNA; DM II; COVID-19 infection; CIPRIANO Interval history: Patient not seen today due to PPE conservation. Discussed with hospital food service worker regarding arangements for Out Patient Dialysis PUI?: No COVID19: Positive Objective - Vital Signs Vital signs: Vital Signs - 12hr 02/12/20 02/12/20 02/12/20 05:09 07:50 12:23 Temperature 98.5 F 97.0 F L Pulse Rate 85 85 81 Respiratory 20 20 Rate Blood Pressure 173/95 173/95 157/89 O2 Sat by Pulse 99 100 Oximetry - Lab 02/09/20 05:27 02/09/20 05:27 Most recent lab results ABG pH 7.497 pH Units (7.350-7.450) H 02/05/20 Unknown ABG pCO2 30.2 mm Hg 02/05/20 Unknown ABG pO2 111.6 mm Hg (80.0-90.0) H 02/05/20 Unknown ABG HCO3 22.9 mmol/L (20.0-26.0) 02/05/20 Unknown ABG O2 Saturation 98.3 % (95.0-99.0) 02/05/20 Unknown Calcium 8.6 mg/dL (8.4-10.2) 02/09/20 05:27 Magnesium 1.50 mg/dL (1.7-2.3) L 01/17/20 22:58 Medications & Allergies - Medications Allergies/Adverse Reactions: Allergies No Known Allergies Allergy (Verified 09/12/18 00:37) Home Medications: Home Medications Medication Instructions Recorded Confirmed Last Taken Type glipiZIDE-Metformin 5-500 mg 500 mg PO BID 01/17/20 01/17/20 Unknown History Active Medications: Generic Name Dose Route Start Last Admin Trade Name Freq PRN Reason Stop Dose Admin Acetaminophen 650 mg 01/17/20 23:06 02/11/20 21:12 Tylenol PO 650 mg Q4H PRN Administration Pain MILD(1-3)/Fever >100.5/COLLINS Lipase/Protease/Amylase 1 each 02/01/20 09:[address] 10,500 Unit FEEDTUBE PRN PRN For Clogged Feeding Tube Dextrose 0 ml 01/17/20 23:06 D50w (25gm) Syringe IV Q30MIN PRN Hypoglycemia Protocol Famotidine 20 mg 01/24/20 10:00 02/11/20 09:29 Pepcid PO 20 mg QDAY COBY Administration Heparin Sodium (Porcine) 5,000 unit 01/18/20 06:00 02/12/20 05:23 Heparin SUB-Q 5,000 unit Q8HR COBY Administration Hydralazine HCl 10 mg 01/18/20 22:14 02/12/20 07:50 Apresoline IV 10 mg Q6H PRN Administration Hypertension Hydrophilic Ointment 1 applic 01/31/20 21:48 Vaseline Lip Therapy TP Q2HR PRN Dry Lips Hydrophilic Ointment 1 applic 02/12/20 13:31 Vaseline Lip Therapy TP DIRECT PRN Dry Lips Sodium Chloride 100 mls @ 999 mls/hr 02/05/20 11:31 Nacl 0.9% IV KIRSTEN PRN Hypotension Insulin Human Regular 5 units 02/09/20 22:00 02/12/20 07:30 Humulin R SUB-Q Not Given ACHS [facility] Insulin Human Regular 0 units 02/09/20 22:00 02/12/20 07:30 Humulin R SUB-Q Not Given ACHS [facility] Protocol Magnesium Hydroxide 30 ml 01/17/20 23:06 Milk Of Magnesia PO Q4H PRN Constipation Morphine Sulfate 2 mg 01/17/20 23:06 02/05/20 11:49 Morphine IV 2 mg Q4H PRN Administration Pain, Moderate (4-6) Multi-Ingred Cream/Lotion/Oil/Oint 1 applic 01/31/20 21:48 Artificial Tears Ophth Oint OU Q4HR PRN Dry Eye(s) Nystatin 1 applic 01/29/20 14:00 02/11/20 22:40 Nystop TP 1 applic BID COBY Administration Ondansetron HCl 4 mg 01/17/20 23:06 01/30/20 20:47 Zofran IV 4 mg Q8H PRN Administration Nausea And Vomiting Simple Syrup 15 ml 02/01/20 09:53 Simple Syrup FEEDTUBE PRN PRN Hypoglycemia Simple Syrup 30 ml 02/01/20 09:53 Simple Syrup FEEDTUBE PRN PRN Hypoglycemia Sodium Bicarbonate 325 mg 02/01/20 09:53 Sodium Bicarbonate FEEDTUBE PRN PRN For Clogged Feeding Tube Sodium Chloride 10 ml 01/18/20 10:00 02/11/20 21:12 Sodium Chloride Flush Syringe 10 Ml IV 10 ml BID COBY Administration Sodium Chloride 10 ml 01/17/20 23:06 02/04/20 05:07 Sodium Chloride Flush Syringe 10 Ml IV 10 ml PRN PRN Administration LINE FLUSH
--- NOTE | 2020-02-12 14:16 | Progress Note ---
Assessment and Plan Assessment and plan: --Awaiting LTAC placement; However LTAC requires 2- Covid tests prior to LTAC placement Case management Assisting with discharge planning --Severe Sepsis/due to cough with pneumonia --Multiple Organ involvement/poor prognosis --COVID 19 induced pneumonia Acute on chronic respiratory failure requiring mechanical ventilation s/p extubation, continue nasal cannula oxygen --Acute metabolic encephalopathy; Multifactorial, supportive care --Left thigh abscess status post I&D --Diabetic foot wound nonhealing --Morbid obesity hypoventilation syndrome --Acute kidney injury secondary to vasomotor nephropathy Received HD MWF, now HD as needed basis per nephrology --Anemia; of chronic kidney disease Closely monitor H&H and transfuse as needed --Hyponatremia-resolved, monitor electrolytes --Type II diabetes mellitus with uncontrolled blood sugar Accu-Chek sliding scale coverage ADA diet and insulin --Morbid obesity; BMI 44.8 --Hypertension monitor closely for septic shock --Severe protein calorie malnutrition: Secondary to underlying disease process Nutrition supplements nutrition consult --Dysphagia; patient needs PEG placement --DC planning; per case management -Outpatient HD chair scheduling -PEG tube placement -Possible LTAC placement -LTAC requires 2neg Covid tests Monitor closely and adjust the management as needed The high probability of a clinically significant, sudden or life threatening d eterioration of the [pulmonary, renal, infectious, GI, metabolic, endocrine] system(s) required my full and direct attention, intervention and personal management. The aggregate critical care time was [32] minutes. This time is in addition to time spent performing reported procedures but includes the following: [x] Data Review and interpretation [x] Patient assessment and monitoring of vital signs [x] Documentation [x] Medication orders and management History Interval history: Patient seen and examined at the bedside by me this afternoon Patient's chart and other records reviewed Droplet and contact isolation precautions observed PPE used during the entire evaluation of the patient Patient chronically ill looking Obese, Mild distress Vital signs reviewed PUI?: No COVID19: Positive Hospitalist Physical - Constitutional Vitals: Temp Pulse Resp BP Pulse Ox 97.0 F L 81 20 157/89 100 02/12/20 12:23 02/12/20 12:23 02/12/20 12:23 02/12/20 12:23 02/12/20 12:23 General appearance: Present: mild distress, well-nourished, obese (Morbidly obese) - EENT Eyes: Present: PERRL, EOM intact - Neck Neck: Present: supple, normal ROM - Respiratory Respiratory effort: normal Respiratory: bilateral: diminished, rhonchi, negative: rales, wheezing - Cardiovascular Rhythm: regular Heart Sounds: Present: S1 & S2 - Extremities Extremities: no ischemia, No edema - Abdominal General gastrointestinal: soft, non-tender, non-distended, normal bowel sounds - Integumentary Integumentary: Present: clear, warm - Psychiatric Psychiatric: other (Confused) - Neurologic Neurologic: moves all extremities Results - Labs CBC & Chem 7: 02/09/20 05:27 02/09/20 05:27 Labs: Laboratory Last Values WBC 8.6 K/mm3 (4.5-11.0) 02/09/20 05:27 RBC 3.20 M/mm3 (3.65-5.03) L 02/09/20 05:27 Hgb 8.4 gm/dl (10.1-14.3) L 02/09/20 05:27 Hct 25.6 % (30.3-42.9) L 02/09/20 05:27 MCV 80 fl (79-97) 02/09/20 05:27 MCH 26 pg (28-32) L 02/09/20 05:27 MCHC 33 % (30-34) 02/09/20 05:27 RDW 13.7 % (13.2-15.2) 02/09/20 05:27 Plt Count 186 K/mm3 (140-440) 02/09/20 05:27 Lymph % (Auto) 13.0 % (13.4-35.0) L 02/09/20 05:27 [place] % (Auto) 11.8 % (0.0-7.3) H 02/09/20 05:27 Eos % (Auto) 4.5 % (0.0-4.3) H 02/09/20 05:27 Baso % (Auto) 0.5 % (0.0-1.8) 02/09/20 05:27 Lymph # 1.1 K/mm3 (1.2-5.4) L 02/09/20 05:27 [place] # 1.0 K/mm3 (0.0-0.8) H 02/09/20 05:27 Eos # 0.4 K/mm3 (0.0-0.4) 02/09/20 05:27 Baso # 0.0 K/mm3 (0.0-0.1) 02/09/20 05:27 Add Manual Diff Complete 01/26/20 05:40 Total Counted 100 01/26/20 05:40 Seg Neutrophils % 70.2 % (40.0-70.0) H 02/09/20 05:27 Seg Neuts % (Manual) 90.0 % (40.0-70.0) H 01/26/20 05:40 Band Neutrophils % 5.0 % 01/26/20 05:40 Lymphocytes % (Manual) 1.0 % (13.4-35.0) L 01/26/20 05:40 Reactive Lymphs % (Man) 0 % 01/26/20 05:40 Monocytes % (Manual) 2.0 % (0.0-7.3) 01/26/20 05:40 Eosinophils % (Manual) 2.0 % (0.0-4.3) 01/26/20 05:40 Basophils % (Manual) 0 % (0.0-1.8) 01/26/20 05:40 Metamyelocytes % 0 % 01/26/20 05:40 Myelocytes % 0 % 01/26/20 05:40 Promyelocytes % 0 % 01/26/20 05:40 Blast Cells % 0 % 01/26/20 05:40 Nucleated RBC % 1.0 % (0.0-0.9) H 01/26/20 05:40 Seg Neutrophils # 6.0 K/mm3 (1.8-7.7) 02/09/20 05:27 Seg Neutrophils # Man 14.8 K/mm3 (1.8-7.7) H 01/26/20 05:40 Band Neutrophils # 0.8 K/mm3 01/26/20 05:40 Lymphocytes # (Manual) 0.2 K/mm3 (1.2-5.4) L 01/26/20 05:40 Abs React Lymphs (Man) 0.0 K/mm3 01/26/20 05:40 Monocytes # (Manual) 0.3 K/mm3 (0.0-0.8) 01/26/20 05:40 Eosinophils # (Manual) 0.3 K/mm3 (0.0-0.4) 01/26/20 05:40 Basophils # (Manual) 0.0 K/mm3 (0.0-0.1) 01/26/20 05:40 Metamyelocytes # 0.0 K/mm3 01/26/20 05:40 Myelocytes # 0.0 K/mm3 01/26/20 05:40 Promyelocytes # 0.0 K/mm3 01/26/20 05:40 Blast Cells # 0.0 K/mm3 01/26/20 05:40 WBC Morphology Not Reportable 01/26/20 05:40 Hypersegmented Neuts Not Reportable 01/26/20 05:40 Hyposegmented Neuts Not Reportable 01/26/20 05:40 Hypogranular Neuts Not Reportable 01/26/20 05:40 Smudge Cells Not Reportable 01/26/20 05:40 Toxic Granulation Not Reportable 01/26/20 05:40 Toxic Vacuolation Not Reportable 01/26/20 05:40 Dohle Bodies Not Reportable 01/26/20 05:40 Pelger-Huet Anomaly Not Reportable 01/26/20 05:40 Barbie Rods Not Reportable 01/26/20 05:40 Platelet Estimate Consistent w auto 01/26/20 05:40 Clumped Platelets Not Reportable 01/26/20 05:40 Plt Clumps, EDTA Not Reportable 01/26/20 05:40 Large Platelets Not Reportable 01/26/20 05:40 Giant Platelets Not Reportable 01/26/20 05:40 Platelet Satelliting Not Reportable 01/26/20 05:40 Plt Morphology Comment Not Reportable 01/26/20 05:40 RBC Morphology Normal 01/26/20 05:40 Dimorphic RBCs Not Reportable 01/26/20 05:40 Polychromasia Not Reportable 01/26/20 05:40 Hypochromasia Not Reportable 01/26/20 05:40 Poikilocytosis Not Reportable 01/26/20 05:40 Anisocytosis Not Reportable 01/26/20 05:40 Microcytosis Not Reportable 01/26/20 05:40 Macrocytosis Not Reportable 01/26/20 05:40 Spherocytes Not Reportable 01/26/20 05:40 Pappenheimer Bodies Not Reportable 01/26/20 05:40 Sickle Cells Not Reportable 01/26/20 05:40 Target Cells Not Reportable 01/26/20 05:40 Tear Drop Cells Not Reportable 01/26/20 05:40 Ovalocytes Not Reportable 01/26/20 05:40 Helmet Cells Not Reportable 01/26/20 05:40 Abernathy-Williams Bodies Not Reportable 01/26/20 05:40 [place] Rings Not Reportable 01/26/20 05:40 Williamson Cells Not Reportable 01/26/20 05:40 Bite Cells Not Reportable 01/26/20 05:40 Crenated Cell Not Reportable 01/26/20 05:40 Elliptocytes Not Reportable 01/26/20 05:40 Acanthocytes (Spur) Not Reportable 01/26/20 05:40 Rouleaux Not Reportable 01/26/20 05:40 Hemoglobin C Crystals Not Reportable 01/26/20 05:40 Schistocytes Not Reportable 01/26/20 05:40 Malaria parasites Not Reportable 01/26/20 05:40 ESR 70 mm/Hr (0-20) 01/17/20 22:58 Ras Bodies Not Reportable 01/26/20 05:40 Hem Pathologist Commnt No 01/26/20 05:40 PT 15.6 Sec. (12.2-14.9) H 01/17/20 18:28 INR 1.22 (0.87-1.13) H 01/17/20 18:28 D-Dimer 1210.49 ng/mlDDU (0-234) H 02/08/20 04:57 ABG pH 7.497 pH Units (7.350-7.450) H 02/05/20 Unknown ABG pCO2 30.2 mm Hg 02/05/20 Unknown ABG pO2 111.6 mm Hg (80.0-90.0) H 02/05/20 Unknown ABG HCO3 22.9 mmol/L (20.0-26.0) 02/05/20 Unknown ABG O2 Saturation 98.3 % (95.0-99.0) 02/05/20 Unknown ABG O2 Content 10.3 (0.0-44) 02/05/20 Unknown ABG Base Excess -0.1 mmol/L (-2.0-3.0) 02/05/20 Unknown ABG Hemoglobin 7.4 gm/dl (12.0-16.0) L 02/05/20 Unknown ABG Carboxyhemoglobin 1.3 % (0.0-5.0) 02/05/20 Unknown ABG Methemoglobin 0.4 % (0.0-1.5) 02/05/20 Unknown VBG pH 7.409 (7.320-7.420) 01/17/20 18:28 Oxyhemoglobin 96.7 % (95.0-99.0) 02/05/20 Unknown FiO2 40 % 02/05/20 Unknown Sodium 139 mmol/L (137-145) 02/09/20 05:27 Potassium 4.4 mmol/L (3.6-5.0) 02/09/20 05:27 Chloride 96.9 mmol/L (98-107) L 02/09/20 05:27 Carbon Dioxide 22 mmol/L (22-30) 02/09/20 05:27 Anion Gap 25 mmol/L 02/09/20 05:27 BUN 57 mg/dL (7-17) H 02/09/20 05:27 Creatinine 5.9 mg/dL (0.7-1.2) H 02/09/20 05:27 Estimated GFR 10 ml/min 02/09/20 05:27 BUN/Creatinine Ratio 10 % 02/09/20 05:27 Glucose 165 mg/dL (65-100) H 02/09/20 05:27 POC Glucose 94 (70-105) 02/12/20 07:52 Hemoglobin A1c 11.6 % (4-6) H 01/18/20 12:47 Lactic Acid 1.30 mmol/L (0.7-2.0) 01/18/20 08:30 Calcium 8.6 mg/dL (8.4-10.2) 02/09/20 05:27 Magnesium 1.50 mg/dL (1.7-2.3) L 01/17/20 22:58 Ferritin 850.8 ng/mL (13.0-400.0) H 02/08/20 04:57 Total Bilirubin 0.50 mg/dL (0.1-1.2) 01/31/20 03:49 AST 112 units/L (5-40) H 01/31/20 03:49 ALT 112 units/L (7-56) H 01/31/20 03:49 Alkaline Phosphatase 145 units/L (35-129) H 01/31/20 03:49 Lactate Dehydrogenase 864 units/L (91-180) H 02/08/20 04:57 Total Creatine Kinase 122 units/L (30-135) 01/17/20 22:58 C-Reactive Protein 5.50 mg/dL (0.00-1.30) H 02/08/20 04:57 Total Protein 5.5 g/dL (6.3-8.2) L 01/31/20 03:49 Albumin 1.7 g/dL (3.9-5) L 01/31/20 03:49 Albumin/Globulin Ratio 0.4 % 01/31/20 03:49 Procalcitonin 0.27 ng/mL (<0.15) 01/23/20 10:36 HCG, Qual Negative (Negative) 01/31/20 03:49 Urine Color Yellow (Yellow) 01/18/20 00:32 Urine Turbidity Slightly-cloudy (Clear) 01/18/20 00:32 Urine pH 5.0 (5.0-7.0) 01/18/20 00:32 Ur Specific [place] 1.011 (1.003-1.030) 01/18/20 00:32 Urine Protein 100 mg/dl mg/dL (Negative) 01/18/20 00:32 Urine Glucose (UA) >=500 mg/dL (Negative) 01/18/20 00:32 Urine Ketones Tr mg/dL (Negative) 01/18/20 00:32 Urine Blood Neg (Negative) 01/18/20 00:32 Urine Nitrite Neg (Negative) 01/18/20 00:32 Urine Bilirubin Neg (Negative) 01/18/20 00:32 Urine Urobilinogen < 2.0 mg/dL (<2.0) 01/18/20 00:32 Ur Leukocyte Esterase Neg (Negative) 01/18/20 00:32 Urine WBC (Auto) 2.0 /HPF (0.0-6.0) 01/18/20 00:32 Urine RBC (Auto) 4.0 /HPF (0.0-6.0) 01/18/20 00:32 U Epithel Cells (Auto) 2.0 /HPF (0-13.0) 01/18/20 00:32 Hyaline Casts 1 /LPF 01/18/20 00:32 Urine Mucus Few /HPF 01/18/20 00:32 Urine Yeast (Budding) Few /HPF 01/18/20 00:32 Vancomycin Trough 45.4 ug/mL (5.0-20.0) H 01/30/20 05:19 Random Vancomycin 30.6 ug/mL (0-40.0) 02/01/20 03:49 Hepatitis A IgM Ab Non-reactive (NonReactive) 02/01/20 10:57 Hep Bs Antigen Non-reactive (Negative) 02/01/20 10:57 Hep B Core IgM Ab Non-reactive (NonReactive) 02/01/20 10:57 Hepatitis C Antibody Non-reactive (NonReactive) 02/01/20 10:57 Influenza A (Rapid) Negative (Negative) 01/19/20 01:10 Influenza B (Rapid) Negative (Negative) 01/19/20 01:10 AFB Identification 01/20/20 04:00 Miscellaneous Test Flexitest 1 H 01/28/20 10:00 Microbiology: Microbiology 01/31/20 Unknown Thigh - Left Surgical Biopsy Culture - Final Tissierella Praeacuta Goldstein/IV: Voiding Method Incontinent IV Catheter Type [right ac] INT / Saline Lock IV Catheter Type [Right trialysis Femoral] IV Catheter Type [Right Peripheral IV Forearm] IV Catheter Type [Right Wrist] INT / Saline Lock IV Catheter Type [Right Hand] INT / Saline Lock IV Catheter Type [Right Upper INT / Saline Lock arm] IV Catheter Type [Left Hand] INT / Saline Lock Active Medications - Current Medications Current Medications: Generic Name Dose Route Start Last Admin Trade Name Freq PRN Reason Stop Dose Admin Acetaminophen 650 mg 01/17/20 23:06 02/11/20 21:12 Tylenol PO 650 mg Q4H PRN Administration Pain MILD(1-3)/Fever >100.5/COLLINS Lipase/Protease/Amylase 1 each 02/01/20 09:53 Pancreaze 10,500 Unit FEEDTUBE PRN PRN For Clogged Feeding Tube Dextrose 0 ml 01/17/20 23:06 D50w (25gm) Syringe IV Q30MIN PRN Hypoglycemia Protocol Famotidine 20 mg 01/24/20 10:00 02/11/20 09:29 Pepcid PO 20 mg QDAY COBY Administration Heparin Sodium (Porcine) 5,000 unit 01/18/20 06:00 02/12/20 05:23 Heparin SUB-Q 5,000 unit Q8HR COBY Administration Hydralazine HCl 10 mg 01/18/20 22:14 02/12/20 07:50 Apresoline IV 10 mg Q6H PRN Administration Hypertension Hydrophilic Ointment 1 applic 01/31/20 21:48 Vaseline Lip Therapy TP Q2HR PRN Dry Lips Hydrophilic Ointment 1 applic 02/12/20 13:31 Vaseline Lip Therapy TP DIRECT PRN Dry Lips Sodium Chloride 100 mls @ 999 mls/hr 02/05/20 11:31 Nacl 0.9% IV KIRSTEN PRN Hypotension Insulin Human Regular 5 units 02/09/20 22:00 02/12/20 07:30 Humulin R SUB-Q Not Given ACHS [facility] Insulin Human Regular 0 units 02/09/20 22:00 02/12/20 07:30 Humulin R SUB-Q Not Given ACHS [facility] Protocol Magnesium Hydroxide 30 ml 01/17/20 23:06 Milk Of Magnesia PO Q4H PRN Constipation Morphine Sulfate 2 mg 01/17/20 23:06 02/05/20 11:49 Morphine IV 2 mg Q4H PRN Administration Pain, Moderate (4-6) Multi-Ingred Cream/Lotion/Oil/Oint 1 applic 01/31/20 21:48 Artificial Tears Ophth Oint OU Q4HR PRN Dry Eye(s) Nystatin 1 applic 01/29/20 14:00 02/11/20 22:40 Nystop TP 1 applic BID COBY Administration Ondansetron HCl 4 mg 01/17/20 23:06 01/30/20 20:47 Zofran IV 4 mg Q8H PRN Administration Nausea And Vomiting Simple Syrup 15 ml 02/01/20 09:53 Simple Syrup FEEDTUBE PRN PRN Hypoglycemia Simple Syrup 30 ml 02/01/20 09:53 Simple Syrup FEEDTUBE PRN PRN Hypoglycemia Sodium Bicarbonate 325 mg 02/01/20 09:53 Sodium Bicarbonate FEEDTUBE PRN PRN For Clogged Feeding Tube Sodium Chloride 10 ml 01/18/20 10:00 02/11/20 21:12 Sodium Chloride Flush Syringe 10 Ml IV 10 ml BID COBY Administration Sodium Chloride 10 ml 01/17/20 23:06 02/04/20 05:07 Sodium Chloride Flush Syringe 10 Ml IV 10 ml PRN PRN Administration LINE FLUSH Nutrition/Malnutrition Assess - Dietary Evaluation Nutrition/Malnutrition Findings: Nutrition Notes Start: 01/18/20 13:13 Freq: Status: Active Protocol: Document 02/11/20 14:43 OH (Rec: 02/11/20 15:10 OH [id number]) Nutrition Notes Current Diagnosis CKD (stage V CKD) Other Pertinent Diagnosis COVID-19 positive, LEV pnue, ( R) great toe wound Current Diet MECHANICAL SOFT Labs/Tests Cr 5.9 GFR 10 k+ 4.4 Na 139 Glu 120 Pertinent Medications heparin humulin Height 6 ft Weight 138.6 kg [place] Body Weight (kg) 72.72 BMI 41.4 Weight Status Morbidly Obese Subjective/Other Information F/U. Pt. awaiting LTACH/REHAB placement. TF has been discontinued and pt only receiving mechanical soft diet . Percent of energy/protein needs met: <25/25% Burn Absent Trauma Absent Minimum of two criteria No physical signs of malnutrition Protein-Calorie Malnutrition Severe #3 Nutrition Diagnosis Inadequate oral intake #2 Nutrition Diagnosis Inadequate protein-energy intake Diagnosis Progress(for reassessment Continues documentation) #1 Nutrition Diagnosis Increased nutrient needs ( specify in comment below) Etiology ESRD, CHRONIC ILLNESS Diagnosis Progress(for reassessment Continues documentation) Is patient on ventilator? No Is Patient Ambulatory and/or Out of Bed No REE-([facility]-confined to bed) 2662.812 Kcal/Kg value to use for calculation 14 Approximate Energy Requirements Using 1940 kcal/Kg Calculation Used for Recommendations Kcal/kg Additional Notes PRO: 1-1.2 g/kg FLUID: 1 L/day or per MD Nutrition Intervention Change Diet Order: Mechanical soft renal Add Supplement/Snack (indicate name/kcal NEPRO TID /protein ) Provides kCal: 1,275 Provides Protein (gm) 57 Goal #1 Po intake to exceed 75% meal trays Goal #2 ONS tolerance Goal #3 Wound healing Anticipated Discharge Needs: renal diet education Follow-Up By: 02/13/20 Additional Comments ONS tolerance/po intake
[2020-02-12] MEDS: FAMOTIDINE 20 MG TAB PO SCH (14:26)
[2020-02-12] MEDS: NYSTATIN POWDER 15 GM TP SCH ×2 (14:27→22:34)
[2020-02-12] MEDS ORDERED: ALUM-MAG HYDROXIDE-SIMETHICONE 200-200-20MG/5ML ORAL LIQD 30 ML PO PRN (14:28)
[2020-02-12] MEDS ORDERED: ONDANSETRON 4 MG/2 ML INJ IV PRN (14:29)
--- NOTE | 2020-02-12 14:30 | Progress Note ---
Assessment and Plan Cultures: Blood culture 01/17/2020 no growth to date Urine culture 01/17/2020 no growth to date Sputum normal resp dulce OR culture no growth today A/P: 29-year-old female past medical history diabetes admitted with acute sepsis secondary to right foot wound versus pneumonia. #Acute sepsis: Secondary to her left thigh abscess versus pneumonia. #Severe COVID-19 pneumonia: S/p plaquenil Day 5 of 5 #Acute respiratory failure: self extubated, was on venturi mask, now on [place] O2 2L. #Left thigh abscess: surgery on board s/p I+D with wound VAC. Completed 7 days of Zosyn. Wound images show clean base. #Right foot wound: Will need MRI when more stable to rule out osteomyelitis of the toe. #Diabetes: uncontrolled. #CIPRIANO: on HD. #Morbid obesity Recs: Eval for home oxygen prior to discharge ContinueCOVID isolationprecautions per [facility] protocol OK for discharge from ID standpoint Will sign off. Please call with questions. Mark Montero MD, FACP [facility] ([facility]) C: [phone] O: [phone] F: [phone] Subjective Date of service: 02/12/20 Principal diagnosis: Severe Sepsis; LEV PNA; DM II; COVID-19 infection; CIPRIANO Interval history: Afebrile. ?Oxygen requirements improving. PUI?: No COVID19: Positive Objective - Exam Narrative Exam: Physical Exam (reviewed in chart due to PPE conservation) Constitutional: limited due to PPE conservation strategy Head, Ears, Nose: limited due to PPE conservation strategy Eyes: limited due to PPE conservation strategy Neck: limited due to PPE conservation strategy Oral: limited due to PPE conservation strategy Cardiovascular: limited due to PPE conservation strategy Respiratory: limited due to PPE conservation strategy GI: limited due to PPE conservation strategy Musculoskeletal: limited due to PPE conservation strategy Skin: limited due to PPE conservation strategy Hem/Lymphatic: limited due to PPE conservation strategy Psych: limited due to PPE conservation strategy Neurological: limited due to PPE conservation strategy - Constitutional Vitals: Vital Signs Temp Pulse Resp BP Pulse Ox 97.0 F L 81 20 157/89 100 02/12/20 12:23 02/12/20 12:23 02/12/20 12:23 02/12/20 12:23 02/12/20 12:23 Temperature -Last 24 Hours Temperature 97.0 F Temperature 98.5 F Temperature 98.8 F Temperature 98.8 F Temperature 98.8 F - Labs CBC & Chem 7: 02/09/20 05:27 02/09/20 05:27
--- NOTE | 2020-02-12 16:20 | Progress Note ---
Assessment and Plan Acute Hypoxemic Respiratory failure Severe Sepsis COVID-19 infection Left upper lobe pneumonia Diabetes II Morbid obesity Febrile illness Diabetic foot ulcer Hyponatremia Lactic acidosis - Increase PT/OT as tolerated / possible re: COVIOD - no new issues otherwisew; continue care as below - continue to wean supplemental oxygen to keep O2 sats > 90% - COVID-19 precautions per [facility] protocol - continue contact, droplet and airborne precautions - off Plaquenil - Follow IL-6 (sent out) to evaluate cytokine release syndrome due to COVID and consider IV tocilizumab (Actemra) (off-label use)- per ID recommendations - Very high inflammatory markers - ferritin 2758; CRP/LDH trending down (At risk for cytokine storm secondary to COVID and high risk for ARDS) - Conservative fluid management (use vasopressors including midodrine to support blood pressure). - Accuchecks with glycemic control, keep blood glucose < 180 mg/dL (Avoid hypoglycemia) - Avoid nephrotoxins, adjust and dose all medications fro GFR and CrCL - continue GI & VTE prophylaxis - continue wound care per RN / WCT - continue surgical evaluation - prn analgesia per pain score - mobility protocols to prevent pressure ulcers - continued smoking abstinence strongly counseled at the bedside prior to decompensation - GI & VTE prophylaxis - Flu & pneumovax per protocol - continue other care per attending / other consultants ... re-evaluate in am & prn CONDITION: FAIR PROGNOSIS: IMPROVED CODE STATUS: FULL CODE Subjective Date of service: 02/12/20 Principal diagnosis: Severe Sepsis; LEV PNA; DM II; COVID-19 infection; CIPRIANO Interval history: Patient is seen today for: Acute Hypoxemic Respiratory failure; Severe Sepsis; LEV pneumonia; Diabetes II; Morbid obesity; COVID-19 infection; Diabetic foot ulcer; Hyponatremia; Lactic acidosis Seen and examined at bedside; 24hour events reviewed; nursing and respiratory care staff consulted; no adverse overnight events reported to me; resting peacefully in bed; No N/V/F/C; denies acute chest pains or palpitations PUI?: No COVID19: Positive Objective Vital Signs - 12hr 02/12/20 02/12/20 02/12/20 05:09 07:50 12:23 Temperature 98.5 F 97.0 F L Pulse Rate 85 85 81 Respiratory 20 20 Rate Blood Pressure 173/95 173/95 157/89 O2 Sat by Pulse 99 100 Oximetry Constitutional: alert, other (young obese AAF, normocephalic with mildly increased resp effort at rest) Eyes: non-icteric ENT: oropharynx moist, other (extubated) Neck: supple, no lymphadenopathy, no JVD Effort: normal Ascultation: Bilateral: diminished breath sounds, rales (scant in bases) Percussion: Bilateral: not dull Cardiovascular: regular rate and rhythm Gastrointestinal: normoactive bowel sounds, soft, non-tender, non-distended Integumentary: other (left thigh abscess; R. Foot wound) Extremities: no cyanosis, no edema, pulses normal, no ischemia or petechiae, other Neurologic: normal mental status, non-focal exam, pupils equal and round, CN II- XII normal Psychiatric: mood appropriate, affect normal CBC and BMP: 02/09/20 05:27 02/09/20 05:27 ABG, PT/INR, D-dimer: ABG ABG pH 7.497 pH Units (7.350-7.450) H 02/05/20 Unknown ABG pCO2 30.2 mm Hg 02/05/20 Unknown ABG pO2 111.6 mm Hg (80.0-90.0) H 02/05/20 Unknown ABG O2 Saturation 98.3 % (95.0-99.0) 02/05/20 Unknown PT/INR, D-dimer PT 15.6 Sec. (12.2-14.9) H 01/17/20 18:28 INR 1.22 (0.87-1.13) H 01/17/20 18:28 D-Dimer 1210.49 ng/mlDDU (0-234) H 02/08/20 04:57 Abnormal lab findings: Abnormal Labs 01/17/20 01/17/20 01/17/20 18:28 18:28 18:28 WBC RBC Hgb Hct MCV MCH 26 L RDW Lymph % (Auto) 9.3 L [place] % (Auto) Eos % (Auto) Lymph # 1.0 L [place] # Seg Neutrophils % 86.7 H Seg Neuts % (Manual) Lymphocytes % (Manual) Nucleated RBC % Seg Neutrophils # 9.6 H Seg Neutrophils # Man Lymphocytes # (Manual) PT 15.6 H INR 1.22 H D-Dimer ABG pH ABG pO2 ABG HCO3 ABG O2 Saturation ABG Base Excess ABG Hemoglobin Oxyhemoglobin Sodium 126 L Potassium Chloride 89.3 L Carbon Dioxide 19 L BUN Creatinine Glucose 397 H POC Glucose Hemoglobin A1c Lactic Acid Calcium Magnesium Ferritin AST ALT Alkaline Phosphatase Lactate Dehydrogenase C-Reactive Protein Total Protein 9.0 H Albumin Vancomycin Trough Random Vancomycin Miscellaneous Test 01/17/20 01/17/20 01/17/20 18:28 22:58 22:58 WBC RBC Hgb Hct MCV MCH RDW Lymph % (Auto) [place] % (Auto) Eos % (Auto) Lymph # [place] # Seg Neutrophils % Seg Neuts % (Manual) Lymphocytes % (Manual) Nucleated RBC % Seg Neutrophils # Seg Neutrophils # Man Lymphocytes # (Manual) PT INR D-Dimer ABG pH ABG pO2 ABG HCO3 ABG O2 Saturation ABG Base Excess ABG Hemoglobin Oxyhemoglobin Sodium Potassium Chloride Carbon Dioxide BUN Creatinine Glucose POC Glucose Hemoglobin A1c Lactic Acid 3.40 H* 2.30 H* Calcium Magnesium 1.50 L Ferritin AST ALT Alkaline Phosphatase Lactate Dehydrogenase C-Reactive Protein 16.60 H Total Protein Albumin Vancomycin Trough Random Vancomycin Miscellaneous Test 01/18/20 01/18/20 01/18/20 00:46 06:34 08:30 WBC RBC Hgb Hct MCV MCH 26 L RDW 12.7 L Lymph % (Auto) [place] % (Auto) Eos % (Auto) Lymph # [place] # Seg Neutrophils % 80.1 H Seg Neuts % (Manual) Lymphocytes % (Manual) Nucleated RBC % Seg Neutrophils # Seg Neutrophils # Man Lymphocytes # (Manual) PT INR D-Dimer ABG pH ABG pO2 ABG HCO3 ABG O2 Saturation ABG Base Excess ABG Hemoglobin Oxyhemoglobin Sodium Potassium Chloride Carbon Dioxide BUN Creatinine Glucose POC Glucose 338 H 266 H Hemoglobin A1c Lactic Acid Calcium Magnesium Ferritin AST ALT Alkaline Phosphatase Lactate Dehydrogenase C-Reactive Protein Total Protein Albumin Vancomycin Trough Random Vancomycin Miscellaneous Test 01/18/20 01/18/20 01/18/20 08:30 08:35 12:30 WBC RBC Hgb Hct MCV MCH RDW Lymph % (Auto) [place] % (Auto) Eos % (Auto) Lymph # [place] # Seg Neutrophils % Seg Neuts % (Manual) Lymphocytes % (Manual) Nucleated RBC % Seg Neutrophils # Seg Neutrophils # Man Lymphocytes # (Manual) PT INR D-Dimer ABG pH ABG pO2 ABG HCO3 ABG O2 Saturation ABG Base Excess ABG Hemoglobin Oxyhemoglobin Sodium 135 L D Potassium Chloride Carbon Dioxide BUN Creatinine Glucose 250 H POC Glucose 224 H 213 H Hemoglobin A1c Lactic Acid Calcium Magnesium Ferritin AST ALT Alkaline Phosphatase Lactate Dehydrogenase C-Reactive Protein Total Protein Albumin Vancomycin Trough Random Vancomycin Miscellaneous Test 01/18/20 01/18/20 01/18/20 12:47 16:56 22:03 WBC RBC Hgb Hct MCV MCH RDW Lymph % (Auto) [place] % (Auto) Eos % (Auto) Lymph # [place] # Seg Neutrophils % Seg Neuts % (Manual) Lymphocytes % (Manual) Nucleated RBC % Seg Neutrophils # Seg Neutrophils # Man Lymphocytes # (Manual) PT INR D-Dimer ABG pH ABG pO2 ABG HCO3 ABG O2 Saturation ABG Base Excess ABG Hemoglobin Oxyhemoglobin Sodium Potassium Chloride Carbon Dioxide BUN Creatinine Glucose POC Glucose 270 H 239 H Hemoglobin A1c 11.6 H Lactic Acid Calcium Magnesium Ferritin AST ALT Alkaline Phosphatase Lactate Dehydrogenase C-Reactive Protein Total Protein Albumin Vancomycin Trough Random Vancomycin Miscellaneous Test 01/19/20 01/19/20 01/19/20 06:15 11:48 13:09 WBC RBC Hgb Hct MCV MCH 26 L RDW Lymph % (Auto) [place] % (Auto) Eos % (Auto) Lymph # [place] # Seg Neutrophils % Seg Neuts % (Manual) Lymphocytes % (Manual) Nucleated RBC % Seg Neutrophils # Seg Neutrophils # Man Lymphocytes # (Manual) PT INR D-Dimer ABG pH ABG pO2 ABG HCO3 ABG O2 Saturation ABG Base Excess ABG Hemoglobin Oxyhemoglobin Sodium Potassium Chloride Carbon Dioxide BUN Creatinine Glucose POC Glucose 248 H 268 H Hemoglobin A1c Lactic Acid Calcium Magnesium Ferritin AST ALT Alkaline Phosphatase Lactate Dehydrogenase C-Reactive Protein Total Protein Albumin Vancomycin Trough Random Vancomycin Miscellaneous Test 01/19/20 01/19/20 01/20/20 17:44 21:09 09:03 WBC RBC Hgb Hct MCV MCH RDW Lymph % (Auto) [place] % (Auto) Eos % (Auto) Lymph # [place] # Seg Neutrophils % Seg Neuts % (Manual) Lymphocytes % (Manual) Nucleated RBC % Seg Neutrophils # Seg Neutrophils # Man Lymphocytes # (Manual) PT INR D-Dimer ABG pH ABG pO2 ABG HCO3 ABG O2 Saturation ABG Base Excess ABG Hemoglobin Oxyhemoglobin Sodium Potassium Chloride Carbon Dioxide BUN Creatinine Glucose POC Glucose 214 H 261 H 241 H Hemoglobin A1c Lactic Acid Calcium Magnesium Ferritin AST ALT Alkaline Phosphatase Lactate Dehydrogenase C-Reactive Protein Total Protein Albumin Vancomycin Trough Random Vancomycin Miscellaneous Test 01/20/20 01/20/20 01/20/20 12:10 17:00 19:43 WBC RBC Hgb Hct MCV MCH RDW Lymph % (Auto) [place] % (Auto) Eos % (Auto) Lymph # [place] # Seg Neutrophils % Seg Neuts % (Manual) Lymphocytes % (Manual) Nucleated RBC % Seg Neutrophils # Seg Neutrophils # Man Lymphocytes # (Manual) PT INR D-Dimer ABG pH ABG pO2 ABG HCO3 ABG O2 Saturation ABG Base Excess ABG Hemoglobin Oxyhemoglobin Sodium Potassium Chloride Carbon Dioxide BUN Creatinine Glucose POC Glucose 284 H 272 H Hemoglobin A1c Lactic Acid Calcium Magnesium Ferritin AST ALT Alkaline Phosphatase Lactate Dehydrogenase C-Reactive Protein Total Protein Albumin Vancomycin Trough 4.0 L Random Vancomycin Miscellaneous Test 01/20/20 01/21/20 01/21/20 22:39 09:29 11:41 WBC RBC Hgb Hct MCV MCH 26 L RDW Lymph % (Auto) [place] % (Auto) Eos % (Auto) Lymph # [place] # Seg Neutrophils % Seg Neuts % (Manual) Lymphocytes % (Manual) Nucleated RBC % Seg Neutrophils # Seg Neutrophils # Man Lymphocytes # (Manual) PT INR D-Dimer ABG pH ABG pO2 ABG HCO3 ABG O2 Saturation ABG Base Excess ABG Hemoglobin Oxyhemoglobin Sodium Potassium Chloride Carbon Dioxide BUN Creatinine Glucose POC Glucose 248 H 238 H Hemoglobin A1c Lactic Acid Calcium Magnesium Ferritin AST ALT Alkaline Phosphatase Lactate Dehydrogenase C-Reactive Protein Total Protein Albumin Vancomycin Trough Random Vancomycin Miscellaneous Test 01/21/20 01/21/20 01/21/20 11:41 12:27 16:55 WBC RBC Hgb Hct MCV MCH RDW Lymph % (Auto) [place] % (Auto) Eos % (Auto) Lymph # [place] # Seg Neutrophils % Seg Neuts % (Manual) Lymphocytes % (Manual) Nucleated RBC % Seg Neutrophils # Seg Neutrophils # Man Lymphocytes # (Manual) PT INR D-Dimer ABG pH ABG pO2 ABG HCO3 ABG O2 Saturation ABG Base Excess ABG Hemoglobin Oxyhemoglobin Sodium 132 L Potassium 3.5 L Chloride 97.0 L Carbon Dioxide 19 L BUN Creatinine Glucose 274 H POC Glucose 264 H 261 H Hemoglobin A1c Lactic Acid Calcium Magnesium Ferritin AST ALT Alkaline Phosphatase Lactate Dehydrogenase C-Reactive Protein Total Protein Albumin Vancomycin Trough Random Vancomycin Miscellaneous Test 01/21/20 01/22/20 01/22/20 22:39 09:05 12:57 WBC RBC Hgb Hct MCV MCH RDW Lymph % (Auto) [place] % (Auto) Eos % (Auto) Lymph # [place] # Seg Neutrophils % Seg Neuts % (Manual) Lymphocytes % (Manual) Nucleated RBC % Seg Neutrophils # Seg Neutrophils # Man Lymphocytes # (Manual) PT INR D-Dimer ABG pH ABG pO2 ABG HCO3 ABG O2 Saturation ABG Base Excess ABG Hemoglobin Oxyhemoglobin Sodium Potassium Chloride Carbon Dioxide BUN Creatinine Glucose POC Glucose 243 H 258 H 252 H Hemoglobin A1c Lactic Acid Calcium Magnesium Ferritin AST ALT Alkaline Phosphatase Lactate Dehydrogenase C-Reactive Protein Total Protein Albumin Vancomycin Trough Random Vancomycin Miscellaneous Test 01/22/20 01/22/20 01/23/20 17:14 21:30 09:03 WBC RBC Hgb Hct MCV MCH RDW Lymph % (Auto) [place] % (Auto) Eos % (Auto) Lymph # [place] # Seg Neutrophils % Seg Neuts % (Manual) Lymphocytes % (Manual) Nucleated RBC % Seg Neutrophils # Seg Neutrophils # Man Lymphocytes # (Manual) PT INR D-Dimer ABG pH ABG pO2 ABG HCO3 ABG O2 Saturation ABG Base Excess ABG Hemoglobin Oxyhemoglobin Sodium Potassium Chloride Carbon Dioxide BUN Creatinine Glucose POC Glucose 306 H 217 H 156 H Hemoglobin A1c Lactic Acid Calcium Magnesium Ferritin AST ALT Alkaline Phosphatase Lactate Dehydrogenase C-Reactive Protein Total Protein Albumin Vancomycin Trough Random Vancomycin Miscellaneous Test 01/23/20 01/23/20 01/23/20 10:36 11:12 17:11 WBC RBC Hgb Hct MCV MCH RDW Lymph % (Auto) [place] % (Auto) Eos % (Auto) Lymph # [place] # Seg Neutrophils % Seg Neuts % (Manual) Lymphocytes % (Manual) Nucleated RBC % Seg Neutrophils # Seg Neutrophils # Man Lymphocytes # (Manual) PT INR D-Dimer ABG pH ABG pO2 ABG HCO3 ABG O2 Saturation ABG Base Excess ABG Hemoglobin Oxyhemoglobin Sodium Potassium 3.0 L Chloride Carbon Dioxide 21 L BUN Creatinine Glucose 266 H POC Glucose 244 H 238 H Hemoglobin A1c Lactic Acid Calcium 8.3 L Magnesium Ferritin AST ALT Alkaline Phosphatase Lactate Dehydrogenase C-Reactive Protein Total Protein Albumin Vancomycin Trough Random Vancomycin Miscellaneous Test 01/23/20 01/24/20 01/24/20 22:57 06:03 12:12 WBC RBC Hgb Hct MCV MCH RDW Lymph % (Auto) [place] % (Auto) Eos % (Auto) Lymph # [place] # Seg Neutrophils % Seg Neuts % (Manual) Lymphocytes % (Manual) Nucleated RBC % Seg Neutrophils # Seg Neutrophils # Man Lymphocytes # (Manual) PT INR D-Dimer ABG pH ABG pO2 ABG HCO3 ABG O2 Saturation ABG Base Excess ABG Hemoglobin Oxyhemoglobin Sodium Potassium 3.2 L Chloride Carbon Dioxide 19 L BUN Creatinine Glucose 231 H POC Glucose 228 H 210 H Hemoglobin A1c Lactic Acid Calcium 8.2 L Magnesium Ferritin AST ALT Alkaline Phosphatase Lactate Dehydrogenase C-Reactive Protein Total Protein Albumin Vancomycin Trough Random Vancomycin Miscellaneous Test 01/24/20 01/24/20 01/24/20 12:50 19:01 21:49 WBC RBC Hgb Hct MCV MCH RDW Lymph % (Auto) [place] % (Auto) Eos % (Auto) Lymph # [place] # Seg Neutrophils % Seg Neuts % (Manual) Lymphocytes % (Manual) Nucleated RBC % Seg Neutrophils # Seg Neutrophils # Man Lymphocytes # (Manual) PT INR D-Dimer ABG pH 7.485 H ABG pO2 63.4 L ABG HCO3 ABG O2 Saturation ABG Base Excess ABG Hemoglobin 5.0 L Oxyhemoglobin Sodium Potassium Chloride Carbon Dioxide BUN Creatinine Glucose POC Glucose 183 H 193 H Hemoglobin A1c Lactic Acid Calcium Magnesium Ferritin AST ALT Alkaline Phosphatase Lactate Dehydrogenase C-Reactive Protein Total Protein Albumin Vancomycin Trough Random Vancomycin Miscellaneous Test 01/25/20 01/25/20 01/25/20 09:13 16:58 22:23 WBC RBC Hgb Hct MCV MCH RDW Lymph % (Auto) [place] % (Auto) Eos % (Auto) Lymph # [place] # Seg Neutrophils % Seg Neuts % (Manual) Lymphocytes % (Manual) Nucleated RBC % Seg Neutrophils # Seg Neutrophils # Man Lymphocytes # (Manual) PT INR D-Dimer ABG pH ABG pO2 ABG HCO3 ABG O2 Saturation ABG Base Excess ABG Hemoglobin Oxyhemoglobin Sodium Potassium Chloride Carbon Dioxide BUN Creatinine Glucose POC Glucose 196 H 231 H 159 H Hemoglobin A1c Lactic Acid Calcium Magnesium Ferritin AST ALT Alkaline Phosphatase Lactate Dehydrogenase C-Reactive Protein Total Protein Albumin Vancomycin Trough Random Vancomycin Miscellaneous Test 01/26/20 01/26/20 01/26/20 05:40 05:40 05:40 WBC 16.4 H RBC Hgb Hct MCV MCH 26 L RDW 12.9 L Lymph % (Auto) [place] % (Auto) Eos % (Auto) Lymph # [place] # Seg Neutrophils % Seg Neuts % (Manual) 90.0 H Lymphocytes % (Manual) 1.0 L Nucleated RBC % 1.0 H Seg Neutrophils # Seg Neutrophils # Man 14.8 H Lymphocytes # (Manual) 0.2 L PT INR D-Dimer 2624.11 H ABG pH ABG pO2 ABG HCO3 ABG O2 Saturation ABG Base Excess ABG Hemoglobin Oxyhemoglobin Sodium 135 L Potassium 2.7 L* Chloride Carbon Dioxide 21 L BUN Creatinine Glucose 132 H POC Glucose Hemoglobin A1c Lactic Acid Calcium 8.0 L Magnesium Ferritin AST ALT Alkaline Phosphatase Lactate Dehydrogenase C-Reactive Protein Total Protein Albumin Vancomycin Trough Random Vancomycin Miscellaneous Test 01/26/20 01/26/20 01/26/20 05:40 05:40 08:58 WBC RBC Hgb Hct MCV MCH RDW Lymph % (Auto) [place] % (Auto) Eos % (Auto) Lymph # [place] # Seg Neutrophils % Seg Neuts % (Manual) Lymphocytes % (Manual) Nucleated RBC % Seg Neutrophils # Seg Neutrophils # Man Lymphocytes # (Manual) PT INR D-Dimer ABG pH ABG pO2 ABG HCO3 ABG O2 Saturation ABG Base Excess ABG Hemoglobin Oxyhemoglobin Sodium Potassium Chloride Carbon Dioxide BUN Creatinine Glucose POC Glucose 131 H Hemoglobin A1c Lactic Acid Calcium Magnesium Ferritin 2758.0 H AST ALT Alkaline Phosphatase Lactate Dehydrogenase C-Reactive Protein 26.90 H Total Protein Albumin Vancomycin Trough Random Vancomycin Miscellaneous Test 01/26/20 01/26/20 01/26/20 13:00 16:30 21:22 WBC RBC Hgb Hct MCV MCH RDW Lymph % (Auto) [place] % (Auto) Eos % (Auto) Lymph # [place] # Seg Neutrophils % Seg Neuts % (Manual) Lymphocytes % (Manual) Nucleated RBC % Seg Neutrophils # Seg Neutrophils # Man Lymphocytes # (Manual) PT INR D-Dimer ABG pH ABG pO2 ABG HCO3 ABG O2 Saturation ABG Base Excess ABG Hemoglobin Oxyhemoglobin Sodium Potassium Chloride Carbon Dioxide BUN Creatinine Glucose POC Glucose 136 H 146 H 139 H Hemoglobin A1c Lactic Acid Calcium Magnesium Ferritin AST ALT Alkaline Phosphatase Lactate Dehydrogenase C-Reactive Protein Total Protein Albumin Vancomycin Trough Random Vancomycin Miscellaneous Test 01/27/20 01/27/20 01/27/20 05:14 07:37 12:05 WBC RBC Hgb Hct MCV MCH RDW Lymph % (Auto) [place] % (Auto) Eos % (Auto) Lymph # [place] # Seg Neutrophils % Seg Neuts % (Manual) Lymphocytes % (Manual) Nucleated RBC % Seg Neutrophils # Seg Neutrophils # Man Lymphocytes # (Manual) PT INR D-Dimer ABG pH ABG pO2 ABG HCO3 ABG O2 Saturation ABG Base Excess ABG Hemoglobin Oxyhemoglobin Sodium 135 L Potassium 3.4 L D Chloride Carbon Dioxide 17 L BUN 24 H Creatinine 1.4 H D Glucose 143 H POC Glucose 133 H 141 H Hemoglobin A1c Lactic Acid Calcium 7.6 L Magnesium Ferritin AST ALT Alkaline Phosphatase Lactate Dehydrogenase C-Reactive Protein Total Protein Albumin Vancomycin Trough Random Vancomycin Miscellaneous Test 01/27/20 01/27/20 01/27/20 17:37 22:14 23:53 WBC RBC Hgb Hct MCV MCH RDW Lymph % (Auto) [place] % (Auto) Eos % (Auto) Lymph # [place] # Seg Neutrophils % Seg Neuts % (Manual) Lymphocytes % (Manual) Nucleated RBC % Seg Neutrophils # Seg Neutrophils # Man Lymphocytes # (Manual) PT INR D-Dimer 2675.43 H ABG pH ABG pO2 ABG HCO3 ABG O2 Saturation ABG Base Excess ABG Hemoglobin Oxyhemoglobin Sodium Potassium Chloride Carbon Dioxide BUN Creatinine Glucose POC Glucose 153 H 124 H Hemoglobin A1c Lactic Acid Calcium Magnesium Ferritin AST ALT Alkaline Phosphatase Lactate Dehydrogenase C-Reactive Protein Total Protein Albumin Vancomycin Trough Random Vancomycin Miscellaneous Test 01/27/20 01/27/20 01/28/20 23:53 23:53 08:36 WBC RBC Hgb Hct MCV MCH RDW Lymph % (Auto) [place] % (Auto) Eos % (Auto) Lymph # [place] # Seg Neutrophils % Seg Neuts % (Manual) Lymphocytes % (Manual) Nucleated RBC % Seg Neutrophils # Seg Neutrophils # Man Lymphocytes # (Manual) PT INR D-Dimer ABG pH ABG pO2 ABG HCO3 ABG O2 Saturation ABG Base Excess ABG Hemoglobin Oxyhemoglobin Sodium Potassium Chloride Carbon Dioxide BUN Creatinine Glucose POC Glucose 165 H Hemoglobin A1c Lactic Acid Calcium Magnesium Ferritin 3523.0 H AST ALT Alkaline Phosphatase Lactate Dehydrogenase 1132 H C-Reactive Protein 15.60 H Total Protein Albumin Vancomycin Trough Random Vancomycin Miscellaneous Test 01/28/20 01/28/20 01/28/20 10:00 10:00 10:00 WBC RBC Hgb Hct MCV MCH RDW Lymph % (Auto) [place] % (Auto) Eos % (Auto) Lymph # [place] # Seg Neutrophils % Seg Neuts % (Manual) Lymphocytes % (Manual) Nucleated RBC % Seg Neutrophils # Seg Neutrophils # Man Lymphocytes # (Manual) PT INR D-Dimer ABG pH ABG pO2 ABG HCO3 ABG O2 Saturation ABG Base Excess ABG Hemoglobin Oxyhemoglobin Sodium 131 L Potassium 3.5 L Chloride Carbon Dioxide 16 L BUN 51 H Creatinine 3.5 H D Glucose 180 H POC Glucose Hemoglobin A1c Lactic Acid Calcium 7.5 L Magnesium Ferritin AST ALT Alkaline Phosphatase Lactate Dehydrogenase C-Reactive Protein Total Protein Albumin Vancomycin Trough Random Vancomycin 65.8 H Miscellaneous Test Flexitest 1 H 01/28/20 01/28/20 01/28/20 12:42 17:27 22:06 WBC RBC Hgb Hct MCV MCH RDW Lymph % (Auto) [place] % (Auto) Eos % (Auto) Lymph # [place] # Seg Neutrophils % Seg Neuts % (Manual) Lymphocytes % (Manual) Nucleated RBC % Seg Neutrophils # Seg Neutrophils # Man Lymphocytes # (Manual) PT INR D-Dimer ABG pH ABG pO2 ABG HCO3 ABG O2 Saturation ABG Base Excess ABG Hemoglobin Oxyhemoglobin Sodium Potassium Chloride Carbon Dioxide BUN Creatinine Glucose POC Glucose 188 H 161 H 158 H Hemoglobin A1c Lactic Acid Calcium Magnesium Ferritin AST ALT Alkaline Phosphatase Lactate Dehydrogenase C-Reactive Protein Total Protein Albumin Vancomycin Trough Random Vancomycin Miscellaneous Test 01/29/20 01/29/20 01/29/20 07:29 07:29 08:20 WBC 17.0 H RBC Hgb 9.6 L Hct 29.5 L MCV MCH 26 L RDW Lymph % (Auto) [place] % (Auto) Eos % (Auto) Lymph # [place] # Seg Neutrophils % Seg Neuts % (Manual) Lymphocytes % (Manual) Nucleated RBC % Seg Neutrophils # Seg Neutrophils # Man Lymphocytes # (Manual) PT INR D-Dimer ABG pH ABG pO2 ABG HCO3 ABG O2 Saturation ABG Base Excess ABG Hemoglobin Oxyhemoglobin Sodium 133 L Potassium Chloride Carbon Dioxide 15 L BUN 69 H Creatinine 4.1 H Glucose 161 H POC Glucose 170 H Hemoglobin A1c Lactic Acid Calcium 7.6 L Magnesium Ferritin AST ALT Alkaline Phosphatase Lactate Dehydrogenase C-Reactive Protein Total Protein Albumin Vancomycin Trough Random Vancomycin Miscellaneous Test 01/29/20 01/29/20 01/29/20 11:54 11:54 11:54 WBC RBC Hgb Hct MCV MCH RDW Lymph % (Auto) [place] % (Auto) Eos % (Auto) Lymph # [place] # Seg Neutrophils % Seg Neuts % (Manual) Lymphocytes % (Manual) Nucleated RBC % Seg Neutrophils # Seg Neutrophils # Man Lymphocytes # (Manual) PT INR D-Dimer 1499 H ABG pH ABG pO2 ABG HCO3 ABG O2 Saturation ABG Base Excess ABG Hemoglobin Oxyhemoglobin Sodium Potassium Chloride Carbon Dioxide BUN Creatinine Glucose POC Glucose Hemoglobin A1c Lactic Acid Calcium Magnesium Ferritin > 2000.0 H AST ALT Alkaline Phosphatase Lactate Dehydrogenase 946 H C-Reactive Protein 13.30 H Total Protein Albumin Vancomycin Trough Random Vancomycin Miscellaneous Test 01/29/20 01/29/20 01/29/20 12:55 16:19 22:13 WBC RBC Hgb Hct MCV MCH RDW Lymph % (Auto) [place] % (Auto) Eos % (Auto) Lymph # [place] # Seg Neutrophils % Seg Neuts % (Manual) Lymphocytes % (Manual) Nucleated RBC % Seg Neutrophils # Seg Neutrophils # Man Lymphocytes # (Manual) PT INR D-Dimer ABG pH ABG pO2 ABG HCO3 ABG O2 Saturation ABG Base Excess ABG Hemoglobin Oxyhemoglobin Sodium Potassium Chloride Carbon Dioxide BUN Creatinine Glucose POC Glucose 142 H 146 H 142 H Hemoglobin A1c Lactic Acid Calcium Magnesium Ferritin AST ALT Alkaline Phosphatase Lactate Dehydrogenase C-Reactive Protein Total Protein Albumin Vancomycin Trough Random Vancomycin Miscellaneous Test 01/30/20 01/30/20 01/30/20 05:19 05:19 08:04 WBC RBC Hgb Hct MCV MCH RDW Lymph % (Auto) [place] % (Auto) Eos % (Auto) Lymph # [place] # Seg Neutrophils % Seg Neuts % (Manual) Lymphocytes % (Manual) Nucleated RBC % Seg Neutrophils # Seg Neutrophils # Man Lymphocytes # (Manual) PT INR D-Dimer ABG pH ABG pO2 ABG HCO3 ABG O2 Saturation ABG Base Excess ABG Hemoglobin Oxyhemoglobin Sodium 134 L Potassium Chloride Carbon Dioxide 14 L BUN 87 H Creatinine 4.4 H Glucose 172 H POC Glucose 153 H Hemoglobin A1c Lactic Acid Calcium 7.6 L Magnesium Ferritin AST 152 H ALT 124 H Alkaline Phosphatase Lactate Dehydrogenase C-Reactive Protein Total Protein 5.5 L Albumin 1.8 L Vancomycin Trough 45.4 H Random Vancomycin Miscellaneous Test 01/30/20 01/30/20 01/30/20 12:21 16:51 22:54 WBC RBC Hgb Hct MCV MCH RDW Lymph % (Auto) [place] % (Auto) Eos % (Auto) Lymph # [place] # Seg Neutrophils % Seg Neuts % (Manual) Lymphocytes % (Manual) Nucleated RBC % Seg Neutrophils # Seg Neutrophils # Man Lymphocytes # (Manual) PT INR D-Dimer ABG pH ABG pO2 ABG HCO3 ABG O2 Saturation ABG Base Excess ABG Hemoglobin Oxyhemoglobin Sodium Potassium Chloride Carbon Dioxide BUN Creatinine Glucose POC Glucose 147 H 119 H 129 H Hemoglobin A1c Lactic Acid Calcium Magnesium Ferritin AST ALT Alkaline Phosphatase Lactate Dehydrogenase C-Reactive Protein Total Protein Albumin Vancomycin Trough Random Vancomycin Miscellaneous Test 01/31/20 01/31/20 01/31/20 03:49 03:49 03:49 WBC RBC Hgb Hct MCV MCH RDW Lymph % (Auto) [place] % (Auto) Eos % (Auto) Lymph # [place] # Seg Neutrophils % Seg Neuts % (Manual) Lymphocytes % (Manual) Nucleated RBC % Seg Neutrophils # Seg Neutrophils # Man Lymphocytes # (Manual) PT INR D-Dimer 801.37 H ABG pH ABG pO2 ABG HCO3 ABG O2 Saturation ABG Base Excess ABG Hemoglobin Oxyhemoglobin Sodium 134 L Potassium Chloride Carbon Dioxide 13 L BUN 97 H Creatinine 4.8 H Glucose 123 H POC Glucose Hemoglobin A1c Lactic Acid Calcium 7.6 L Magnesium Ferritin 3101.0 H AST 112 H ALT 112 H Alkaline Phosphatase 145 H Lactate Dehydrogenase 896 H C-Reactive Protein 11.10 H Total Protein 5.5 L Albumin 1.7 L Vancomycin Trough Random Vancomycin Miscellaneous Test 01/31/20 01/31/20 01/31/20 03:49 08:00 11:48 WBC 16.1 H RBC Hgb Hct MCV MCH 25 L RDW Lymph % (Auto) [place] % (Auto) Eos % (Auto) Lymph # [place] # Seg Neutrophils % Seg Neuts % (Manual) Lymphocytes % (Manual) Nucleated RBC % Seg Neutrophils # Seg Neutrophils # Man Lymphocytes # (Manual) PT INR D-Dimer ABG pH ABG pO2 ABG HCO3 ABG O2 Saturation ABG Base Excess ABG Hemoglobin Oxyhemoglobin Sodium Potassium Chloride Carbon Dioxide BUN Creatinine Glucose POC Glucose 133 H 136 H Hemoglobin A1c Lactic Acid Calcium Magnesium Ferritin AST ALT Alkaline Phosphatase Lactate Dehydrogenase C-Reactive Protein Total Protein Albumin Vancomycin Trough Random Vancomycin Miscellaneous Test 01/31/20 01/31/20 01/31/20 16:14 21:37 22:35 WBC RBC Hgb Hct MCV MCH RDW Lymph % (Auto) [place] % (Auto) Eos % (Auto) Lymph # [place] # Seg Neutrophils % Seg Neuts % (Manual) Lymphocytes % (Manual) Nucleated RBC % Seg Neutrophils # Seg Neutrophils # Man Lymphocytes # (Manual) PT INR D-Dimer ABG pH 7.226 L ABG pO2 77.9 L ABG HCO3 15.2 L ABG O2 Saturation 93.5 L ABG Base Excess -11.6 L ABG Hemoglobin Oxyhemoglobin 91.5 L Sodium Potassium Chloride Carbon Dioxide BUN Creatinine Glucose POC Glucose 151 H 179 H Hemoglobin A1c Lactic Acid Calcium Magnesium Ferritin AST ALT Alkaline Phosphatase Lactate Dehydrogenase C-Reactive Protein Total Protein Albumin Vancomycin Trough Random Vancomycin Miscellaneous Test 02/01/20 02/01/20 02/01/20 03:49 03:49 04:30 WBC 19.3 H RBC 3.53 L Hgb 9.0 L Hct 28.1 L MCV MCH 26 L RDW Lymph % (Auto) [place] % (Auto) Eos % (Auto) Lymph # [place] # Seg Neutrophils % Seg Neuts % (Manual) Lymphocytes % (Manual) Nucleated RBC % Seg Neutrophils # Seg Neutrophils # Man Lymphocytes # (Manual) PT INR D-Dimer ABG pH 7.290 L ABG pO2 120.0 H ABG HCO3 14.2 L ABG O2 Saturation ABG Base Excess -11.2 L ABG Hemoglobin 9.3 L Oxyhemoglobin Sodium 135 L Potassium Chloride Carbon Dioxide 13 L BUN 79 H Creatinine 4.1 H Glucose 198 H POC Glucose Hemoglobin A1c Lactic Acid Calcium 7.0 L Magnesium Ferritin AST ALT Alkaline Phosphatase Lactate Dehydrogenase C-Reactive Protein Total Protein Albumin Vancomycin Trough Random Vancomycin Miscellaneous Test 02/01/20 02/01/20 02/02/20 08:13 11:29 00:05 WBC RBC Hgb Hct MCV MCH RDW Lymph % (Auto) [place] % (Auto) Eos % (Auto) Lymph # [place] # Seg Neutrophils % Seg Neuts % (Manual) Lymphocytes % (Manual) Nucleated RBC % Seg Neutrophils # Seg Neutrophils # Man Lymphocytes # (Manual) PT INR D-Dimer ABG pH ABG pO2 ABG HCO3 ABG O2 Saturation ABG Base Excess ABG Hemoglobin Oxyhemoglobin Sodium Potassium Chloride Carbon Dioxide BUN Creatinine Glucose POC Glucose 153 H 181 H 214 H Hemoglobin A1c Lactic Acid Calcium Magnesium Ferritin AST ALT Alkaline Phosphatase Lactate Dehydrogenase C-Reactive Protein Total Protein Albumin Vancomycin Trough Random Vancomycin Miscellaneous Test 02/02/20 02/02/20 02/02/20 04:17 04:30 04:30 WBC RBC Hgb Hct MCV MCH RDW Lymph % (Auto) [place] % (Auto) Eos % (Auto) Lymph # [place] # Seg Neutrophils % Seg Neuts % (Manual) Lymphocytes % (Manual) Nucleated RBC % Seg Neutrophils # Seg Neutrophils # Man Lymphocytes # (Manual) PT INR D-Dimer 795.93 H ABG pH ABG pO2 ABG HCO3 ABG O2 Saturation ABG Base Excess -3.0 L ABG Hemoglobin 8.5 L Oxyhemoglobin Sodium Potassium Chloride Carbon Dioxide BUN Creatinine Glucose POC Glucose Hemoglobin A1c Lactic Acid Calcium Magnesium Ferritin 1978.0 H AST ALT Alkaline Phosphatase Lactate Dehydrogenase C-Reactive Protein Total Protein Albumin Vancomycin Trough Random Vancomycin Miscellaneous Test 02/02/20 02/02/20 02/02/20 04:30 04:30 05:34 WBC 17.3 H RBC 3.24 L Hgb 8.4 L Hct 24.9 L MCV 77 L MCH 26 L RDW Lymph % (Auto) [place] % (Auto) Eos % (Auto) Lymph # [place] # Seg Neutrophils % Seg Neuts % (Manual) Lymphocytes % (Manual) Nucleated RBC % Seg Neutrophils # Seg Neutrophils # Man Lymphocytes # (Manual) PT INR D-Dimer ABG pH ABG pO2 ABG HCO3 ABG O2 Saturation ABG Base Excess ABG Hemoglobin Oxyhemoglobin Sodium Potassium Chloride Carbon Dioxide 17 L BUN 61 H Creatinine 4.1 H Glucose 244 H POC Glucose 274 H Hemoglobin A1c Lactic Acid Calcium 7.2 L Magnesium Ferritin AST ALT Alkaline Phosphatase Lactate Dehydrogenase 841 H C-Reactive Protein 11.50 H Total Protein Albumin Vancomycin Trough Random Vancomycin Miscellaneous Test 02/02/20 02/02/20 02/02/20 12:26 18:06 23:37 WBC RBC Hgb Hct MCV MCH RDW Lymph % (Auto) [place] % (Auto) Eos % (Auto) Lymph # [place] # Seg Neutrophils % Seg Neuts % (Manual) Lymphocytes % (Manual) Nucleated RBC % Seg Neutrophils # Seg Neutrophils # Man Lymphocytes # (Manual) PT INR D-Dimer ABG pH ABG pO2 ABG HCO3 ABG O2 Saturation ABG Base Excess ABG Hemoglobin Oxyhemoglobin Sodium Potassium Chloride Carbon Dioxide BUN Creatinine Glucose POC Glucose 254 H 285 H 239 H Hemoglobin A1c Lactic Acid Calcium Magnesium Ferritin AST ALT Alkaline Phosphatase Lactate Dehydrogenase C-Reactive Protein Total Protein Albumin Vancomycin Trough Random Vancomycin Miscellaneous Test 02/03/20 02/03/20 02/03/20 04:40 04:56 10:41 WBC RBC Hgb Hct MCV MCH RDW Lymph % (Auto) [place] % (Auto) Eos % (Auto) Lymph # [place] # Seg Neutrophils % Seg Neuts % (Manual) Lymphocytes % (Manual) Nucleated RBC % Seg Neutrophils # Seg Neutrophils # Man Lymphocytes # (Manual) PT INR D-Dimer ABG pH 7.520 H ABG pO2 73.8 L 92.5 H ABG HCO3 ABG O2 Saturation ABG Base Excess ABG Hemoglobin 8.6 L 7.9 L Oxyhemoglobin Sodium Potassium Chloride Carbon Dioxide BUN Creatinine Glucose POC Glucose 227 H Hemoglobin A1c Lactic Acid Calcium Magnesium Ferritin AST ALT Alkaline Phosphatase Lactate Dehydrogenase C-Reactive Protein Total Protein Albumin Vancomycin Trough Random Vancomycin Miscellaneous Test 02/03/20 02/03/20 02/03/20 12:09 17:23 23:41 WBC RBC Hgb Hct MCV MCH RDW Lymph % (Auto) [place] % (Auto) Eos % (Auto) Lymph # [place] # Seg Neutrophils % Seg Neuts % (Manual) Lymphocytes % (Manual) Nucleated RBC % Seg Neutrophils # Seg Neutrophils # Man Lymphocytes # (Manual) PT INR D-Dimer ABG pH ABG pO2 ABG HCO3 ABG O2 Saturation ABG Base Excess ABG Hemoglobin Oxyhemoglobin Sodium Potassium Chloride Carbon Dioxide BUN Creatinine Glucose POC Glucose 268 H 255 H 239 H Hemoglobin A1c Lactic Acid Calcium Magnesium Ferritin AST ALT Alkaline Phosphatase Lactate Dehydrogenase C-Reactive Protein Total Protein Albumin Vancomycin Trough Random Vancomycin Miscellaneous Test 02/04/20 02/04/20 02/04/20 04:31 04:42 04:42 WBC RBC Hgb Hct MCV MCH RDW Lymph % (Auto) [place] % (Auto) Eos % (Auto) Lymph # [place] # Seg Neutrophils % Seg Neuts % (Manual) Lymphocytes % (Manual) Nucleated RBC % Seg Neutrophils # Seg Neutrophils # Man Lymphocytes # (Manual) PT INR D-Dimer 694.19 H ABG pH ABG pO2 ABG HCO3 ABG O2 Saturation ABG Base Excess ABG Hemoglobin Oxyhemoglobin Sodium Potassium Chloride Carbon Dioxide BUN Creatinine Glucose POC Glucose 216 H Hemoglobin A1c Lactic Acid Calcium Magnesium Ferritin 1660.0 H AST ALT Alkaline Phosphatase Lactate Dehydrogenase C-Reactive Protein Total Protein Albumin Vancomycin Trough Random Vancomycin Miscellaneous Test 02/04/20 02/04/20 02/04/20 04:42 04:42 12:03 WBC 13.7 H RBC 2.92 L Hgb 7.4 L Hct 23.0 L MCV MCH 25 L RDW Lymph % (Auto) [place] % (Auto) Eos % (Auto) Lymph # [place] # Seg Neutrophils % Seg Neuts % (Manual) Lymphocytes % (Manual) Nucleated RBC % Seg Neutrophils # Seg Neutrophils # Man Lymphocytes # (Manual) PT INR D-Dimer ABG pH ABG pO2 ABG HCO3 ABG O2 Saturation ABG Base Excess ABG Hemoglobin Oxyhemoglobin Sodium Potassium Chloride Carbon Dioxide 17 L BUN 80 H Creatinine 5.8 H Glucose 209 H POC Glucose 248 H Hemoglobin A1c Lactic Acid Calcium 8.3 L D Magnesium Ferritin AST ALT Alkaline Phosphatase Lactate Dehydrogenase 972 H C-Reactive Protein 6.20 H Total Protein Albumin Vancomycin Trough Random Vancomycin Miscellaneous Test 02/04/20 02/04/20 02/04/20 17:42 23:48 Unknown WBC RBC Hgb Hct MCV MCH RDW Lymph % (Auto) [place] % (Auto) Eos % (Auto) Lymph # [place] # Seg Neutrophils % Seg Neuts % (Manual) Lymphocytes % (Manual) Nucleated RBC % Seg Neutrophils # Seg Neutrophils # Man Lymphocytes # (Manual) PT INR D-Dimer ABG pH 7.484 H ABG pO2 104.8 H ABG HCO3 ABG O2 Saturation ABG Base Excess ABG Hemoglobin 9.5 L Oxyhemoglobin Sodium Potassium Chloride Carbon Dioxide BUN Creatinine Glucose POC Glucose 209 H 166 H Hemoglobin A1c Lactic Acid Calcium Magnesium Ferritin AST ALT Alkaline Phosphatase Lactate Dehydrogenase C-Reactive Protein Total Protein Albumin Vancomycin Trough Random Vancomycin Miscellaneous Test 02/05/20 02/05/20 02/05/20 03:51 03:51 05:43 WBC 13.9 H RBC 2.98 L Hgb 7.6 L Hct 23.4 L MCV MCH 26 L RDW Lymph % (Auto) [place] % (Auto) Eos % (Auto) Lymph # [place] # Seg Neutrophils % Seg Neuts % (Manual) Lymphocytes % (Manual) Nucleated RBC % Seg Neutrophils # Seg Neutrophils # Man Lymphocytes # (Manual) PT INR D-Dimer ABG pH ABG pO2 ABG HCO3 ABG O2 Saturation ABG Base Excess ABG Hemoglobin Oxyhemoglobin Sodium Potassium Chloride Carbon Dioxide 19 L BUN 65 H Creatinine 5.9 H Glucose 167 H POC Glucose 148 H Hemoglobin A1c Lactic Acid Calcium 8.3 L Magnesium Ferritin AST ALT Alkaline Phosphatase Lactate Dehydrogenase C-Reactive Protein Total Protein Albumin Vancomycin Trough Random Vancomycin Miscellaneous Test 02/05/20 02/05/20 02/05/20 12:34 18:55 23:48 WBC RBC Hgb Hct MCV MCH RDW Lymph % (Auto) [place] % (Auto) Eos % (Auto) Lymph # [place] # Seg Neutrophils % Seg Neuts % (Manual) Lymphocytes % (Manual) Nucleated RBC % Seg Neutrophils # Seg Neutrophils # Man Lymphocytes # (Manual) PT INR D-Dimer ABG pH ABG pO2 ABG HCO3 ABG O2 Saturation ABG Base Excess ABG Hemoglobin Oxyhemoglobin Sodium Potassium Chloride Carbon Dioxide BUN Creatinine Glucose POC Glucose 267 H 166 H 241 H Hemoglobin A1c Lactic Acid Calcium Magnesium Ferritin AST ALT Alkaline Phosphatase Lactate Dehydrogenase C-Reactive Protein Total Protein Albumin Vancomycin Trough Random Vancomycin Miscellaneous Test 02/05/20 02/06/20 02/06/20 Unknown 03:38 03:38 WBC RBC Hgb Hct MCV MCH RDW Lymph % (Auto) [place] % (Auto) Eos % (Auto) Lymph # [place] # Seg Neutrophils % Seg Neuts % (Manual) Lymphocytes % (Manual) Nucleated RBC % Seg Neutrophils # Seg Neutrophils # Man Lymphocytes # (Manual) PT INR D-Dimer 1067.61 H ABG pH 7.497 H ABG pO2 111.6 H ABG HCO3 ABG O2 Saturation ABG Base Excess ABG Hemoglobin 7.4 L Oxyhemoglobin Sodium Potassium Chloride Carbon Dioxide BUN Creatinine Glucose POC Glucose Hemoglobin A1c Lactic Acid Calcium Magnesium Ferritin 1277.0 H AST ALT Alkaline Phosphatase Lactate Dehydrogenase C-Reactive Protein Total Protein Albumin Vancomycin Trough Random Vancomycin Miscellaneous Test 02/06/20 02/06/20 02/06/20 03:38 03:38 06:04 WBC 13.8 H RBC 3.16 L Hgb 8.0 L Hct 25.7 L MCV MCH 25 L RDW Lymph % (Auto) [place] % (Auto) Eos % (Auto) Lymph # [place] # Seg Neutrophils % Seg Neuts % (Manual) Lymphocytes % (Manual) Nucleated RBC % Seg Neutrophils # Seg Neutrophils # Man Lymphocytes # (Manual) PT INR D-Dimer ABG pH ABG pO2 ABG HCO3 ABG O2 Saturation ABG Base Excess ABG Hemoglobin Oxyhemoglobin Sodium Potassium Chloride Carbon Dioxide 21 L BUN 66 H Creatinine 6.0 H Glucose 213 H POC Glucose 232 H Hemoglobin A1c Lactic Acid Calcium Magnesium Ferritin AST ALT Alkaline Phosphatase Lactate Dehydrogenase 48 L C-Reactive Protein Total Protein Albumin Vancomycin Trough Random Vancomycin Miscellaneous Test 02/06/20 02/06/20 02/06/20 11:54 17:34 22:20 WBC RBC Hgb Hct MCV MCH RDW Lymph % (Auto) [place] % (Auto) Eos % (Auto) Lymph # [place] # Seg Neutrophils % Seg Neuts % (Manual) Lymphocytes % (Manual) Nucleated RBC % Seg Neutrophils # Seg Neutrophils # Man Lymphocytes # (Manual) PT INR D-Dimer ABG pH ABG pO2 ABG HCO3 ABG O2 Saturation ABG Base Excess ABG Hemoglobin Oxyhemoglobin Sodium Potassium Chloride Carbon Dioxide BUN Creatinine Glucose POC Glucose 230 H 220 H 262 H Hemoglobin A1c Lactic Acid Calcium Magnesium Ferritin AST ALT Alkaline Phosphatase Lactate Dehydrogenase C-Reactive Protein Total Protein Albumin Vancomycin Trough Random Vancomycin Miscellaneous Test 02/07/20 02/07/20 02/07/20 05:05 05:05 05:24 WBC 15.0 H RBC 3.30 L Hgb 8.3 L Hct 26.6 L MCV MCH 25 L RDW Lymph % (Auto) [place] % (Auto) Eos % (Auto) Lymph # [place] # Seg Neutrophils % Seg Neuts % (Manual) Lymphocytes % (Manual) Nucleated RBC % Seg Neutrophils # Seg Neutrophils # Man Lymphocytes # (Manual) PT INR D-Dimer ABG pH ABG pO2 ABG HCO3 ABG O2 Saturation ABG Base Excess ABG Hemoglobin Oxyhemoglobin Sodium Potassium Chloride Carbon Dioxide BUN 63 H Creatinine 6.1 H Glucose 231 H POC Glucose 192 H Hemoglobin A1c Lactic Acid Calcium Magnesium Ferritin AST ALT Alkaline Phosphatase Lactate Dehydrogenase C-Reactive Protein Total Protein Albumin Vancomycin Trough Random Vancomycin Miscellaneous Test 02/07/20 02/07/20 02/07/20 12:07 16:45 22:44 WBC RBC Hgb Hct MCV MCH RDW Lymph % (Auto) [place] % (Auto) Eos % (Auto) Lymph # [place] # Seg Neutrophils % Seg Neuts % (Manual) Lymphocytes % (Manual) Nucleated RBC % Seg Neutrophils # Seg Neutrophils # Man Lymphocytes # (Manual) PT INR D-Dimer ABG pH ABG pO2 ABG HCO3 ABG O2 Saturation ABG Base Excess ABG Hemoglobin Oxyhemoglobin Sodium Potassium Chloride Carbon Dioxide BUN Creatinine Glucose POC Glucose 218 H 191 H 172 H Hemoglobin A1c Lactic Acid Calcium Magnesium Ferritin AST ALT Alkaline Phosphatase Lactate Dehydrogenase C-Reactive Protein Total Protein Albumin Vancomycin Trough Random Vancomycin Miscellaneous Test 02/08/20 02/08/20 02/08/20 04:57 04:57 04:57 WBC RBC Hgb Hct MCV MCH RDW Lymph % (Auto) [place] % (Auto) Eos % (Auto) Lymph # [place] # Seg Neutrophils % Seg Neuts % (Manual) Lymphocytes % (Manual) Nucleated RBC % Seg Neutrophils # Seg Neutrophils # Man Lymphocytes # (Manual) PT INR D-Dimer 1210.49 H ABG pH ABG pO2 ABG HCO3 ABG O2 Saturation ABG Base Excess ABG Hemoglobin Oxyhemoglobin Sodium Potassium Chloride Carbon Dioxide BUN Creatinine Glucose POC Glucose Hemoglobin A1c Lactic Acid Calcium Magnesium Ferritin 850.8 H AST ALT Alkaline Phosphatase Lactate Dehydrogenase 864 H C-Reactive Protein 5.50 H Total Protein Albumin Vancomycin Trough Random Vancomycin Miscellaneous Test 02/08/20 02/08/20 02/08/20 06:33 11:50 17:06 WBC RBC Hgb Hct MCV MCH RDW Lymph % (Auto) [place] % (Auto) Eos % (Auto) Lymph # [place] # Seg Neutrophils % Seg Neuts % (Manual) Lymphocytes % (Manual) Nucleated RBC % Seg Neutrophils # Seg Neutrophils # Man Lymphocytes # (Manual) PT INR D-Dimer ABG pH ABG pO2 ABG HCO3 ABG O2 Saturation ABG Base Excess ABG Hemoglobin Oxyhemoglobin Sodium Potassium Chloride Carbon Dioxide BUN Creatinine Glucose POC Glucose 178 H 166 H 170 H Hemoglobin A1c Lactic Acid Calcium Magnesium Ferritin AST ALT Alkaline Phosphatase Lactate Dehydrogenase C-Reactive Protein Total Protein Albumin Vancomycin Trough Random Vancomycin Miscellaneous Test 02/08/20 02/09/20 02/09/20 23:43 04:47 05:27 WBC RBC 3.20 L Hgb 8.4 L Hct 25.6 L MCV MCH 26 L RDW Lymph % (Auto) 13.0 L [place] % (Auto) 11.8 H Eos % (Auto) 4.5 H Lymph # 1.1 L [place] # 1.0 H Seg Neutrophils % 70.2 H Seg Neuts % (Manual) Lymphocytes % (Manual) Nucleated RBC % Seg Neutrophils # Seg Neutrophils # Man Lymphocytes # (Manual) PT INR D-Dimer ABG pH ABG pO2 ABG HCO3 ABG O2 Saturation ABG Base Excess ABG Hemoglobin Oxyhemoglobin Sodium Potassium Chloride Carbon Dioxide BUN Creatinine Glucose POC Glucose 110 H 154 H Hemoglobin A1c Lactic Acid Calcium Magnesium Ferritin AST ALT Alkaline Phosphatase Lactate Dehydrogenase C-Reactive Protein Total Protein Albumin Vancomycin Trough Random Vancomycin Miscellaneous Test 02/09/20 02/09/20 02/09/20 05:27 11:23 17:33 WBC RBC Hgb Hct MCV MCH RDW Lymph % (Auto) [place] % (Auto) Eos % (Auto) Lymph # [place] # Seg Neutrophils % Seg Neuts % (Manual) Lymphocytes % (Manual) Nucleated RBC % Seg Neutrophils # Seg Neutrophils # Man Lymphocytes # (Manual) PT INR D-Dimer ABG pH ABG pO2 ABG HCO3 ABG O2 Saturation ABG Base Excess ABG Hemoglobin Oxyhemoglobin Sodium Potassium Chloride 96.9 L Carbon Dioxide BUN 57 H Creatinine 5.9 H Glucose 165 H POC Glucose 177 H 130 H Hemoglobin A1c Lactic Acid Calcium Magnesium Ferritin AST ALT Alkaline Phosphatase Lactate Dehydrogenase C-Reactive Protein Total Protein Albumin Vancomycin Trough Random Vancomycin Miscellaneous Test 02/10/20 02/10/20 02/10/20 07:42 12:01 16:53 WBC RBC Hgb Hct MCV MCH RDW Lymph % (Auto) [place] % (Auto) Eos % (Auto) Lymph # [place] # Seg Neutrophils % Seg Neuts % (Manual) Lymphocytes % (Manual) Nucleated RBC % Seg Neutrophils # Seg Neutrophils # Man Lymphocytes # (Manual) PT INR D-Dimer ABG pH ABG pO2 ABG HCO3 ABG O2 Saturation ABG Base Excess ABG Hemoglobin Oxyhemoglobin Sodium Potassium Chloride Carbon Dioxide BUN Creatinine Glucose POC Glucose 115 H 127 H 122 H Hemoglobin A1c Lactic Acid Calcium Magnesium Ferritin AST ALT Alkaline Phosphatase Lactate Dehydrogenase C-Reactive Protein Total Protein Albumin Vancomycin Trough Random Vancomycin Miscellaneous Test 02/11/20 08:23 WBC RBC Hgb Hct MCV MCH RDW Lymph % (Auto) [place] % (Auto) Eos % (Auto) Lymph # [place] # Seg Neutrophils % Seg Neuts % (Manual) Lymphocytes % (Manual) Nucleated RBC % Seg Neutrophils # Seg Neutrophils # Man Lymphocytes # (Manual) PT INR D-Dimer ABG pH ABG pO2 ABG HCO3 ABG O2 Saturation ABG Base Excess ABG Hemoglobin Oxyhemoglobin Sodium Potassium Chloride Carbon Dioxide BUN Creatinine Glucose POC Glucose 112 H Hemoglobin A1c Lactic Acid Calcium Magnesium Ferritin AST ALT Alkaline Phosphatase Lactate Dehydrogenase C-Reactive Protein Total Protein Albumin Vancomycin Trough Random Vancomycin Miscellaneous Test Allied health notes reviewed: nursing
[2020-02-12] MEDS: ACETAMINOPHEN 325 MG TAB PO PRN (22:17)
[2020-02-13] MEDS ORDERED: ALPRAZolam 0.5 MG TAB PO PRN (00:31)
[2020-02-13] MEDS: MORPHINE 2 MG/1 ML INJ IV PRN (02:29)
[2020-02-13] MEDS: HEPARIN 5,000 UNIT/1 ML VIAL SUB-Q SCH ×3 (06:29→21:46)
[2020-02-13] MEDS: INSULIN REGULAR, HUMAN 100 UNITS/1 ML SUB-Q SCH ×8 (08:01→21:35)
[2020-02-13] MEDS ORDERED: SODIUM CHLORIDE*PRIMING MACHINE ONLY FOR DIALYSIS MC ONE ×2 (08:50→12:22)
[2020-02-13] MEDS: FAMOTIDINE 20 MG TAB PO SCH (10:30)
[2020-02-13] MEDS: NYSTATIN POWDER 15 GM TP SCH ×2 (10:31→21:46)
--- NOTE | 2020-02-13 13:45 | Progress Note ---
Assessment and Plan Acute Hypoxemic Respiratory failure Severe Sepsis COVID-19 infection Left upper lobe pneumonia Diabetes II Morbid obesity Febrile illness Diabetic foot ulcer Hyponatremia Lactic acidosis - Increase PT/OT as tolerated / possible re: COVIOD - no new issues otherwisew; continue care as below - continue to wean supplemental oxygen to keep O2 sats > 90% - COVID-19 precautions per [facility] protocol - continue contact, droplet and airborne precautions - off Plaquenil - Follow IL-6 (sent out) to evaluate cytokine release syndrome due to COVID and consider IV tocilizumab (Actemra) (off-label use)- per ID recommendations - Very high inflammatory markers - ferritin 2758; CRP/LDH trending down (At risk for cytokine storm secondary to COVID and high risk for ARDS) - Conservative fluid management (use vasopressors including midodrine to support blood pressure). - Accuchecks with glycemic control, keep blood glucose < 180 mg/dL (Avoid hypoglycemia) - Avoid nephrotoxins, adjust and dose all medications fro GFR and CrCL - continue GI & VTE prophylaxis - continue wound care per RN / WCT - continue surgical evaluation - prn analgesia per pain score - mobility protocols to prevent pressure ulcers - continued smoking abstinence strongly counseled at the bedside prior to decompensation - GI & VTE prophylaxis - Flu & pneumovax per protocol - continue other care per attending / other consultants ... re-evaluate in am & prn CONDITION: FAIR PROGNOSIS: IMPROVED CODE STATUS: FULL CODE Subjective Date of service: 02/13/20 Principal diagnosis: Severe Sepsis; LEV PNA; DM II; COVID-19 infection; CIPRIANO Interval history: Patient is seen today for: Acute Hypoxemic Respiratory failure; Severe Sepsis; LEV pneumonia; Diabetes II; Morbid obesity; COVID-19 infection; Diabetic foot ulcer; Hyponatremia; Lactic acidosis Seen and examined at bedside; 24hour events reviewed; nursing and respiratory care staff consulted; no adverse overnight events reported to me; resting peacefully in bed; PUI?: No COVID19: Positive Objective Vital Signs - 12hr 02/13/20 02/13/20 02/13/20 02:29 05:47 09:15 Temperature 98.1 F 98.1 F Pulse Rate 67 81 Respiratory 20 20 20 Rate Blood Pressure 164/86 158/84 O2 Sat by Pulse 100 Oximetry 02/13/20 02/13/20 02/13/20 09:23 09:30 09:45 Temperature Pulse Rate 78 81 75 Respiratory Rate Blood Pressure 162/93 153/89 171/93 O2 Sat by Pulse Oximetry 02/13/20 02/13/20 02/13/20 10:00 10:15 10:30 Temperature Pulse Rate 78 81 78 Respiratory 20 Rate Blood Pressure 167/95 159/98 158/88 O2 Sat by Pulse Oximetry 02/13/20 02/13/20 02/13/20 10:45 11:00 11:15 Temperature Pulse Rate 89 104 H 92 H Respiratory Rate Blood Pressure 152/91 156/94 189/100 O2 Sat by Pulse Oximetry 02/13/20 02/13/20 02/13/20 11:30 11:45 12:00 Temperature Pulse Rate 87 107 H 98 H Respiratory Rate Blood Pressure 177/104 195/84 144/86 O2 Sat by Pulse Oximetry 02/13/20 12:16 Temperature Pulse Rate 100 H Respiratory Rate Blood Pressure 143/86 O2 Sat by Pulse Oximetry Constitutional: alert, other (young obese AAF, normocephalic with mildly increased resp effort at rest) Eyes: non-icteric ENT: oropharynx moist, other (extubated) Neck: supple, no lymphadenopathy, no JVD Effort: normal Ascultation: Bilateral: diminished breath sounds, rales (scant in bases) Percussion: Bilateral: not dull Cardiovascular: regular rate and rhythm Gastrointestinal: normoactive bowel sounds, soft, non-tender, non-distended Integumentary: other (left thigh abscess; R. Foot wound) Extremities: no cyanosis, no edema, pulses normal, no ischemia or petechiae, other Neurologic: normal mental status, non-focal exam, pupils equal and round, CN II- XII normal Psychiatric: mood appropriate, affect normal CBC and BMP: 02/09/20 05:27 02/09/20 05:27 ABG, PT/INR, D-dimer: ABG ABG pH 7.497 pH Units (7.350-7.450) H 02/05/20 Unknown ABG pCO2 30.2 mm Hg 02/05/20 Unknown ABG pO2 111.6 mm Hg (80.0-90.0) H 02/05/20 Unknown ABG O2 Saturation 98.3 % (95.0-99.0) 02/05/20 Unknown PT/INR, D-dimer PT 15.6 Sec. (12.2-14.9) H 01/17/20 18:28 INR 1.22 (0.87-1.13) H 01/17/20 18:28 D-Dimer 1210.49 ng/mlDDU (0-234) H 02/08/20 04:57 Abnormal lab findings: Abnormal Labs 01/17/20 01/17/20 01/17/20 18:28 18:28 18:28 WBC RBC Hgb Hct MCV MCH 26 L RDW Lymph % (Auto) 9.3 L [place] % (Auto) Eos % (Auto) Lymph # 1.0 L [place] # Seg Neutrophils % 86.7 H Seg Neuts % (Manual) Lymphocytes % (Manual) Nucleated RBC % Seg Neutrophils # 9.6 H Seg Neutrophils # Man Lymphocytes # (Manual) PT 15.6 H INR 1.22 H D-Dimer ABG pH ABG pO2 ABG HCO3 ABG O2 Saturation ABG Base Excess ABG Hemoglobin Oxyhemoglobin Sodium 126 L Potassium Chloride 89.3 L Carbon Dioxide 19 L BUN Creatinine Glucose 397 H POC Glucose Hemoglobin A1c Lactic Acid Calcium Magnesium Ferritin AST ALT Alkaline Phosphatase Lactate Dehydrogenase C-Reactive Protein Total Protein 9.0 H Albumin Vancomycin Trough Random Vancomycin Miscellaneous Test 01/17/20 01/17/20 01/17/20 18:28 22:58 22:58 WBC RBC Hgb Hct MCV MCH RDW Lymph % (Auto) [place] % (Auto) Eos % (Auto) Lymph # [place] # Seg Neutrophils % Seg Neuts % (Manual) Lymphocytes % (Manual) Nucleated RBC % Seg Neutrophils # Seg Neutrophils # Man Lymphocytes # (Manual) PT INR D-Dimer ABG pH ABG pO2 ABG HCO3 ABG O2 Saturation ABG Base Excess ABG Hemoglobin Oxyhemoglobin Sodium Potassium Chloride Carbon Dioxide BUN Creatinine Glucose POC Glucose Hemoglobin A1c Lactic Acid 3.40 H* 2.30 H* Calcium Magnesium 1.50 L Ferritin AST ALT Alkaline Phosphatase Lactate Dehydrogenase C-Reactive Protein 16.60 H Total Protein Albumin Vancomycin Trough Random Vancomycin Miscellaneous Test 01/18/20 01/18/20 01/18/20 00:46 06:34 08:30 WBC RBC Hgb Hct MCV MCH 26 L RDW 12.7 L Lymph % (Auto) [place] % (Auto) Eos % (Auto) Lymph # [place] # Seg Neutrophils % 80.1 H Seg Neuts % (Manual) Lymphocytes % (Manual) Nucleated RBC % Seg Neutrophils # Seg Neutrophils # Man Lymphocytes # (Manual) PT INR D-Dimer ABG pH ABG pO2 ABG HCO3 ABG O2 Saturation ABG Base Excess ABG Hemoglobin Oxyhemoglobin Sodium Potassium Chloride Carbon Dioxide BUN Creatinine Glucose POC Glucose 338 H 266 H Hemoglobin A1c Lactic Acid Calcium Magnesium Ferritin AST ALT Alkaline Phosphatase Lactate Dehydrogenase C-Reactive Protein Total Protein Albumin Vancomycin Trough Random Vancomycin Miscellaneous Test 01/18/20 01/18/20 01/18/20 08:30 08:35 12:30 WBC RBC Hgb Hct MCV MCH RDW Lymph % (Auto) [place] % (Auto) Eos % (Auto) Lymph # [place] # Seg Neutrophils % Seg Neuts % (Manual) Lymphocytes % (Manual) Nucleated RBC % Seg Neutrophils # Seg Neutrophils # Man Lymphocytes # (Manual) PT INR D-Dimer ABG pH ABG pO2 ABG HCO3 ABG O2 Saturation ABG Base Excess ABG Hemoglobin Oxyhemoglobin Sodium 135 L D Potassium Chloride Carbon Dioxide BUN Creatinine Glucose 250 H POC Glucose 224 H 213 H Hemoglobin A1c Lactic Acid Calcium Magnesium Ferritin AST ALT Alkaline Phosphatase Lactate Dehydrogenase C-Reactive Protein Total Protein Albumin Vancomycin Trough Random Vancomycin Miscellaneous Test 01/18/20 01/18/20 01/18/20 12:47 16:56 22:03 WBC RBC Hgb Hct MCV MCH RDW Lymph % (Auto) [place] % (Auto) Eos % (Auto) Lymph # [place] # Seg Neutrophils % Seg Neuts % (Manual) Lymphocytes % (Manual) Nucleated RBC % Seg Neutrophils # Seg Neutrophils # Man Lymphocytes # (Manual) PT INR D-Dimer ABG pH ABG pO2 ABG HCO3 ABG O2 Saturation ABG Base Excess ABG Hemoglobin Oxyhemoglobin Sodium Potassium Chloride Carbon Dioxide BUN Creatinine Glucose POC Glucose 270 H 239 H Hemoglobin A1c 11.6 H Lactic Acid Calcium Magnesium Ferritin AST ALT Alkaline Phosphatase Lactate Dehydrogenase C-Reactive Protein Total Protein Albumin Vancomycin Trough Random Vancomycin Miscellaneous Test 01/19/20 01/19/20 01/19/20 06:15 11:48 13:09 WBC RBC Hgb Hct MCV MCH 26 L RDW Lymph % (Auto) [place] % (Auto) Eos % (Auto) Lymph # [place] # Seg Neutrophils % Seg Neuts % (Manual) Lymphocytes % (Manual) Nucleated RBC % Seg Neutrophils # Seg Neutrophils # Man Lymphocytes # (Manual) PT INR D-Dimer ABG pH ABG pO2 ABG HCO3 ABG O2 Saturation ABG Base Excess ABG Hemoglobin Oxyhemoglobin Sodium Potassium Chloride Carbon Dioxide BUN Creatinine Glucose POC Glucose 248 H 268 H Hemoglobin A1c Lactic Acid Calcium Magnesium Ferritin AST ALT Alkaline Phosphatase Lactate Dehydrogenase C-Reactive Protein Total Protein Albumin Vancomycin Trough Random Vancomycin Miscellaneous Test 01/19/20 01/19/20 01/20/20 17:44 21:09 09:03 WBC RBC Hgb Hct MCV MCH RDW Lymph % (Auto) [place] % (Auto) Eos % (Auto) Lymph # [place] # Seg Neutrophils % Seg Neuts % (Manual) Lymphocytes % (Manual) Nucleated RBC % Seg Neutrophils # Seg Neutrophils # Man Lymphocytes # (Manual) PT INR D-Dimer ABG pH ABG pO2 ABG HCO3 ABG O2 Saturation ABG Base Excess ABG Hemoglobin Oxyhemoglobin Sodium Potassium Chloride Carbon Dioxide BUN Creatinine Glucose POC Glucose 214 H 261 H 241 H Hemoglobin A1c Lactic Acid Calcium Magnesium Ferritin AST ALT Alkaline Phosphatase Lactate Dehydrogenase C-Reactive Protein Total Protein Albumin Vancomycin Trough Random Vancomycin Miscellaneous Test 01/20/20 01/20/20 01/20/20 12:10 17:00 19:43 WBC RBC Hgb Hct MCV MCH RDW Lymph % (Auto) [place] % (Auto) Eos % (Auto) Lymph # [place] # Seg Neutrophils % Seg Neuts % (Manual) Lymphocytes % (Manual) Nucleated RBC % Seg Neutrophils # Seg Neutrophils # Man Lymphocytes # (Manual) PT INR D-Dimer ABG pH ABG pO2 ABG HCO3 ABG O2 Saturation ABG Base Excess ABG Hemoglobin Oxyhemoglobin Sodium Potassium Chloride Carbon Dioxide BUN Creatinine Glucose POC Glucose 284 H 272 H Hemoglobin A1c Lactic Acid Calcium Magnesium Ferritin AST ALT Alkaline Phosphatase Lactate Dehydrogenase C-Reactive Protein Total Protein Albumin Vancomycin Trough 4.0 L Random Vancomycin Miscellaneous Test 01/20/20 01/21/20 01/21/20 22:39 09:29 11:41 WBC RBC Hgb Hct MCV MCH 26 L RDW Lymph % (Auto) [place] % (Auto) Eos % (Auto) Lymph # [place] # Seg Neutrophils % Seg Neuts % (Manual) Lymphocytes % (Manual) Nucleated RBC % Seg Neutrophils # Seg Neutrophils # Man Lymphocytes # (Manual) PT INR D-Dimer ABG pH ABG pO2 ABG HCO3 ABG O2 Saturation ABG Base Excess ABG Hemoglobin Oxyhemoglobin Sodium Potassium Chloride Carbon Dioxide BUN Creatinine Glucose POC Glucose 248 H 238 H Hemoglobin A1c Lactic Acid Calcium Magnesium Ferritin AST ALT Alkaline Phosphatase Lactate Dehydrogenase C-Reactive Protein Total Protein Albumin Vancomycin Trough Random Vancomycin Miscellaneous Test 01/21/20 01/21/20 01/21/20 11:41 12:27 16:55 WBC RBC Hgb Hct MCV MCH RDW Lymph % (Auto) [place] % (Auto) Eos % (Auto) Lymph # [place] # Seg Neutrophils % Seg Neuts % (Manual) Lymphocytes % (Manual) Nucleated RBC % Seg Neutrophils # Seg Neutrophils # Man Lymphocytes # (Manual) PT INR D-Dimer ABG pH ABG pO2 ABG HCO3 ABG O2 Saturation ABG Base Excess ABG Hemoglobin Oxyhemoglobin Sodium 132 L Potassium 3.5 L Chloride 97.0 L Carbon Dioxide 19 L BUN Creatinine Glucose 274 H POC Glucose 264 H 261 H Hemoglobin A1c Lactic Acid Calcium Magnesium Ferritin AST ALT Alkaline Phosphatase Lactate Dehydrogenase C-Reactive Protein Total Protein Albumin Vancomycin Trough Random Vancomycin Miscellaneous Test 01/21/20 01/22/20 01/22/20 22:39 09:05 12:57 WBC RBC Hgb Hct MCV MCH RDW Lymph % (Auto) [place] % (Auto) Eos % (Auto) Lymph # [place] # Seg Neutrophils % Seg Neuts % (Manual) Lymphocytes % (Manual) Nucleated RBC % Seg Neutrophils # Seg Neutrophils # Man Lymphocytes # (Manual) PT INR D-Dimer ABG pH ABG pO2 ABG HCO3 ABG O2 Saturation ABG Base Excess ABG Hemoglobin Oxyhemoglobin Sodium Potassium Chloride Carbon Dioxide BUN Creatinine Glucose POC Glucose 243 H 258 H 252 H Hemoglobin A1c Lactic Acid Calcium Magnesium Ferritin AST ALT Alkaline Phosphatase Lactate Dehydrogenase C-Reactive Protein Total Protein Albumin Vancomycin Trough Random Vancomycin Miscellaneous Test 01/22/20 01/22/20 01/23/20 17:14 21:30 09:03 WBC RBC Hgb Hct MCV MCH RDW Lymph % (Auto) [place] % (Auto) Eos % (Auto) Lymph # [place] # Seg Neutrophils % Seg Neuts % (Manual) Lymphocytes % (Manual) Nucleated RBC % Seg Neutrophils # Seg Neutrophils # Man Lymphocytes # (Manual) PT INR D-Dimer ABG pH ABG pO2 ABG HCO3 ABG O2 Saturation ABG Base Excess ABG Hemoglobin Oxyhemoglobin Sodium Potassium Chloride Carbon Dioxide BUN Creatinine Glucose POC Glucose 306 H 217 H 156 H Hemoglobin A1c Lactic Acid Calcium Magnesium Ferritin AST ALT Alkaline Phosphatase Lactate Dehydrogenase C-Reactive Protein Total Protein Albumin Vancomycin Trough Random Vancomycin Miscellaneous Test 01/23/20 01/23/20 01/23/20 10:36 11:12 17:11 WBC RBC Hgb Hct MCV MCH RDW Lymph % (Auto) [place] % (Auto) Eos % (Auto) Lymph # [place] # Seg Neutrophils % Seg Neuts % (Manual) Lymphocytes % (Manual) Nucleated RBC % Seg Neutrophils # Seg Neutrophils # Man Lymphocytes # (Manual) PT INR D-Dimer ABG pH ABG pO2 ABG HCO3 ABG O2 Saturation ABG Base Excess ABG Hemoglobin Oxyhemoglobin Sodium Potassium 3.0 L Chloride Carbon Dioxide 21 L BUN Creatinine Glucose 266 H POC Glucose 244 H 238 H Hemoglobin A1c Lactic Acid Calcium 8.3 L Magnesium Ferritin AST ALT Alkaline Phosphatase Lactate Dehydrogenase C-Reactive Protein Total Protein Albumin Vancomycin Trough Random Vancomycin Miscellaneous Test 01/23/20 01/24/20 01/24/20 22:57 06:03 12:12 WBC RBC Hgb Hct MCV MCH RDW Lymph % (Auto) [place] % (Auto) Eos % (Auto) Lymph # [place] # Seg Neutrophils % Seg Neuts % (Manual) Lymphocytes % (Manual) Nucleated RBC % Seg Neutrophils # Seg Neutrophils # Man Lymphocytes # (Manual) PT INR D-Dimer ABG pH ABG pO2 ABG HCO3 ABG O2 Saturation ABG Base Excess ABG Hemoglobin Oxyhemoglobin Sodium Potassium 3.2 L Chloride Carbon Dioxide 19 L BUN Creatinine Glucose 231 H POC Glucose 228 H 210 H Hemoglobin A1c Lactic Acid Calcium 8.2 L Magnesium Ferritin AST ALT Alkaline Phosphatase Lactate Dehydrogenase C-Reactive Protein Total Protein Albumin Vancomycin Trough Random Vancomycin Miscellaneous Test 01/24/20 01/24/20 01/24/20 12:50 19:01 21:49 WBC RBC Hgb Hct MCV MCH RDW Lymph % (Auto) [place] % (Auto) Eos % (Auto) Lymph # [place] # Seg Neutrophils % Seg Neuts % (Manual) Lymphocytes % (Manual) Nucleated RBC % Seg Neutrophils # Seg Neutrophils # Man Lymphocytes # (Manual) PT INR D-Dimer ABG pH 7.485 H ABG pO2 63.4 L ABG HCO3 ABG O2 Saturation ABG Base Excess ABG Hemoglobin 5.0 L Oxyhemoglobin Sodium Potassium Chloride Carbon Dioxide BUN Creatinine Glucose POC Glucose 183 H 193 H Hemoglobin A1c Lactic Acid Calcium Magnesium Ferritin AST ALT Alkaline Phosphatase Lactate Dehydrogenase C-Reactive Protein Total Protein Albumin Vancomycin Trough Random Vancomycin Miscellaneous Test 01/25/20 01/25/20 01/25/20 09:13 16:58 22:23 WBC RBC Hgb Hct MCV MCH RDW Lymph % (Auto) [place] % (Auto) Eos % (Auto) Lymph # [place] # Seg Neutrophils % Seg Neuts % (Manual) Lymphocytes % (Manual) Nucleated RBC % Seg Neutrophils # Seg Neutrophils # Man Lymphocytes # (Manual) PT INR D-Dimer ABG pH ABG pO2 ABG HCO3 ABG O2 Saturation ABG Base Excess ABG Hemoglobin Oxyhemoglobin Sodium Potassium Chloride Carbon Dioxide BUN Creatinine Glucose POC Glucose 196 H 231 H 159 H Hemoglobin A1c Lactic Acid Calcium Magnesium Ferritin AST ALT Alkaline Phosphatase Lactate Dehydrogenase C-Reactive Protein Total Protein Albumin Vancomycin Trough Random Vancomycin Miscellaneous Test 01/26/20 01/26/20 01/26/20 05:40 05:40 05:40 WBC 16.4 H RBC Hgb Hct MCV MCH 26 L RDW 12.9 L Lymph % (Auto) [place] % (Auto) Eos % (Auto) Lymph # [place] # Seg Neutrophils % Seg Neuts % (Manual) 90.0 H Lymphocytes % (Manual) 1.0 L Nucleated RBC % 1.0 H Seg Neutrophils # Seg Neutrophils # Man 14.8 H Lymphocytes # (Manual) 0.2 L PT INR D-Dimer 2624.11 H ABG pH ABG pO2 ABG HCO3 ABG O2 Saturation ABG Base Excess ABG Hemoglobin Oxyhemoglobin Sodium 135 L Potassium 2.7 L* Chloride Carbon Dioxide 21 L BUN Creatinine Glucose 132 H POC Glucose Hemoglobin A1c Lactic Acid Calcium 8.0 L Magnesium Ferritin AST ALT Alkaline Phosphatase Lactate Dehydrogenase C-Reactive Protein Total Protein Albumin Vancomycin Trough Random Vancomycin Miscellaneous Test 01/26/20 01/26/20 01/26/20 05:40 05:40 08:58 WBC RBC Hgb Hct MCV MCH RDW Lymph % (Auto) [place] % (Auto) Eos % (Auto) Lymph # [place] # Seg Neutrophils % Seg Neuts % (Manual) Lymphocytes % (Manual) Nucleated RBC % Seg Neutrophils # Seg Neutrophils # Man Lymphocytes # (Manual) PT INR D-Dimer ABG pH ABG pO2 ABG HCO3 ABG O2 Saturation ABG Base Excess ABG Hemoglobin Oxyhemoglobin Sodium Potassium Chloride Carbon Dioxide BUN Creatinine Glucose POC Glucose 131 H Hemoglobin A1c Lactic Acid Calcium Magnesium Ferritin 2758.0 H AST ALT Alkaline Phosphatase Lactate Dehydrogenase C-Reactive Protein 26.90 H Total Protein Albumin Vancomycin Trough Random Vancomycin Miscellaneous Test 01/26/20 01/26/20 01/26/20 13:00 16:30 21:22 WBC RBC Hgb Hct MCV MCH RDW Lymph % (Auto) [place] % (Auto) Eos % (Auto) Lymph # [place] # Seg Neutrophils % Seg Neuts % (Manual) Lymphocytes % (Manual) Nucleated RBC % Seg Neutrophils # Seg Neutrophils # Man Lymphocytes # (Manual) PT INR D-Dimer ABG pH ABG pO2 ABG HCO3 ABG O2 Saturation ABG Base Excess ABG Hemoglobin Oxyhemoglobin Sodium Potassium Chloride Carbon Dioxide BUN Creatinine Glucose POC Glucose 136 H 146 H 139 H Hemoglobin A1c Lactic Acid Calcium Magnesium Ferritin AST ALT Alkaline Phosphatase Lactate Dehydrogenase C-Reactive Protein Total Protein Albumin Vancomycin Trough Random Vancomycin Miscellaneous Test 01/27/20 01/27/20 01/27/20 05:14 07:37 12:05 WBC RBC Hgb Hct MCV MCH RDW Lymph % (Auto) [place] % (Auto) Eos % (Auto) Lymph # [place] # Seg Neutrophils % Seg Neuts % (Manual) Lymphocytes % (Manual) Nucleated RBC % Seg Neutrophils # Seg Neutrophils # Man Lymphocytes # (Manual) PT INR D-Dimer ABG pH ABG pO2 ABG HCO3 ABG O2 Saturation ABG Base Excess ABG Hemoglobin Oxyhemoglobin Sodium 135 L Potassium 3.4 L D Chloride Carbon Dioxide 17 L BUN 24 H Creatinine 1.4 H D Glucose 143 H POC Glucose 133 H 141 H Hemoglobin A1c Lactic Acid Calcium 7.6 L Magnesium Ferritin AST ALT Alkaline Phosphatase Lactate Dehydrogenase C-Reactive Protein Total Protein Albumin Vancomycin Trough Random Vancomycin Miscellaneous Test 01/27/20 01/27/20 01/27/20 17:37 22:14 23:53 WBC RBC Hgb Hct MCV MCH RDW Lymph % (Auto) [place] % (Auto) Eos % (Auto) Lymph # [place] # Seg Neutrophils % Seg Neuts % (Manual) Lymphocytes % (Manual) Nucleated RBC % Seg Neutrophils # Seg Neutrophils # Man Lymphocytes # (Manual) PT INR D-Dimer 2675.43 H ABG pH ABG pO2 ABG HCO3 ABG O2 Saturation ABG Base Excess ABG Hemoglobin Oxyhemoglobin Sodium Potassium Chloride Carbon Dioxide BUN Creatinine Glucose POC Glucose 153 H 124 H Hemoglobin A1c Lactic Acid Calcium Magnesium Ferritin AST ALT Alkaline Phosphatase Lactate Dehydrogenase C-Reactive Protein Total Protein Albumin Vancomycin Trough Random Vancomycin Miscellaneous Test 01/27/20 01/27/20 01/28/20 23:53 23:53 08:36 WBC RBC Hgb Hct MCV MCH RDW Lymph % (Auto) [place] % (Auto) Eos % (Auto) Lymph # [place] # Seg Neutrophils % Seg Neuts % (Manual) Lymphocytes % (Manual) Nucleated RBC % Seg Neutrophils # Seg Neutrophils # Man Lymphocytes # (Manual) PT INR D-Dimer ABG pH ABG pO2 ABG HCO3 ABG O2 Saturation ABG Base Excess ABG Hemoglobin Oxyhemoglobin Sodium Potassium Chloride Carbon Dioxide BUN Creatinine Glucose POC Glucose 165 H Hemoglobin A1c Lactic Acid Calcium Magnesium Ferritin 3523.0 H AST ALT Alkaline Phosphatase Lactate Dehydrogenase 1132 H C-Reactive Protein 15.60 H Total Protein Albumin Vancomycin Trough Random Vancomycin Miscellaneous Test 01/28/20 01/28/20 01/28/20 10:00 10:00 10:00 WBC RBC Hgb Hct MCV MCH RDW Lymph % (Auto) [place] % (Auto) Eos % (Auto) Lymph # [place] # Seg Neutrophils % Seg Neuts % (Manual) Lymphocytes % (Manual) Nucleated RBC % Seg Neutrophils # Seg Neutrophils # Man Lymphocytes # (Manual) PT INR D-Dimer ABG pH ABG pO2 ABG HCO3 ABG O2 Saturation ABG Base Excess ABG Hemoglobin Oxyhemoglobin Sodium 131 L Potassium 3.5 L Chloride Carbon Dioxide 16 L BUN 51 H Creatinine 3.5 H D Glucose 180 H POC Glucose Hemoglobin A1c Lactic Acid Calcium 7.5 L Magnesium Ferritin AST ALT Alkaline Phosphatase Lactate Dehydrogenase C-Reactive Protein Total Protein Albumin Vancomycin Trough Random Vancomycin 65.8 H Miscellaneous Test Flexitest 1 H 01/28/20 01/28/20 01/28/20 12:42 17:27 22:06 WBC RBC Hgb Hct MCV MCH RDW Lymph % (Auto) [place] % (Auto) Eos % (Auto) Lymph # [place] # Seg Neutrophils % Seg Neuts % (Manual) Lymphocytes % (Manual) Nucleated RBC % Seg Neutrophils # Seg Neutrophils # Man Lymphocytes # (Manual) PT INR D-Dimer ABG pH ABG pO2 ABG HCO3 ABG O2 Saturation ABG Base Excess ABG Hemoglobin Oxyhemoglobin Sodium Potassium Chloride Carbon Dioxide BUN Creatinine Glucose POC Glucose 188 H 161 H 158 H Hemoglobin A1c Lactic Acid Calcium Magnesium Ferritin AST ALT Alkaline Phosphatase Lactate Dehydrogenase C-Reactive Protein Total Protein Albumin Vancomycin Trough Random Vancomycin Miscellaneous Test 01/29/20 01/29/20 01/29/20 07:29 07:29 08:20 WBC 17.0 H RBC Hgb 9.6 L Hct 29.5 L MCV MCH 26 L RDW Lymph % (Auto) [place] % (Auto) Eos % (Auto) Lymph # [place] # Seg Neutrophils % Seg Neuts % (Manual) Lymphocytes % (Manual) Nucleated RBC % Seg Neutrophils # Seg Neutrophils # Man Lymphocytes # (Manual) PT INR D-Dimer ABG pH ABG pO2 ABG HCO3 ABG O2 Saturation ABG Base Excess ABG Hemoglobin Oxyhemoglobin Sodium 133 L Potassium Chloride Carbon Dioxide 15 L BUN 69 H Creatinine 4.1 H Glucose 161 H POC Glucose 170 H Hemoglobin A1c Lactic Acid Calcium 7.6 L Magnesium Ferritin AST ALT Alkaline Phosphatase Lactate Dehydrogenase C-Reactive Protein Total Protein Albumin Vancomycin Trough Random Vancomycin Miscellaneous Test 01/29/20 01/29/20 01/29/20 11:54 11:54 11:54 WBC RBC Hgb Hct MCV MCH RDW Lymph % (Auto) [place] % (Auto) Eos % (Auto) Lymph # [place] # Seg Neutrophils % Seg Neuts % (Manual) Lymphocytes % (Manual) Nucleated RBC % Seg Neutrophils # Seg Neutrophils # Man Lymphocytes # (Manual) PT INR D-Dimer 1499 H ABG pH ABG pO2 ABG HCO3 ABG O2 Saturation ABG Base Excess ABG Hemoglobin Oxyhemoglobin Sodium Potassium Chloride Carbon Dioxide BUN Creatinine Glucose POC Glucose Hemoglobin A1c Lactic Acid Calcium Magnesium Ferritin > 2000.0 H AST ALT Alkaline Phosphatase Lactate Dehydrogenase 946 H C-Reactive Protein 13.30 H Total Protein Albumin Vancomycin Trough Random Vancomycin Miscellaneous Test 01/29/20 01/29/20 01/29/20 12:55 16:19 22:13 WBC RBC Hgb Hct MCV MCH RDW Lymph % (Auto) [place] % (Auto) Eos % (Auto) Lymph # [place] # Seg Neutrophils % Seg Neuts % (Manual) Lymphocytes % (Manual) Nucleated RBC % Seg Neutrophils # Seg Neutrophils # Man Lymphocytes # (Manual) PT INR D-Dimer ABG pH ABG pO2 ABG HCO3 ABG O2 Saturation ABG Base Excess ABG Hemoglobin Oxyhemoglobin Sodium Potassium Chloride Carbon Dioxide BUN Creatinine Glucose POC Glucose 142 H 146 H 142 H Hemoglobin A1c Lactic Acid Calcium Magnesium Ferritin AST ALT Alkaline Phosphatase Lactate Dehydrogenase C-Reactive Protein Total Protein Albumin Vancomycin Trough Random Vancomycin Miscellaneous Test 01/30/20 01/30/20 01/30/20 05:19 05:19 08:04 WBC RBC Hgb Hct MCV MCH RDW Lymph % (Auto) [place] % (Auto) Eos % (Auto) Lymph # [place] # Seg Neutrophils % Seg Neuts % (Manual) Lymphocytes % (Manual) Nucleated RBC % Seg Neutrophils # Seg Neutrophils # Man Lymphocytes # (Manual) PT INR D-Dimer ABG pH ABG pO2 ABG HCO3 ABG O2 Saturation ABG Base Excess ABG Hemoglobin Oxyhemoglobin Sodium 134 L Potassium Chloride Carbon Dioxide 14 L BUN 87 H Creatinine 4.4 H Glucose 172 H POC Glucose 153 H Hemoglobin A1c Lactic Acid Calcium 7.6 L Magnesium Ferritin AST 152 H ALT 124 H Alkaline Phosphatase Lactate Dehydrogenase C-Reactive Protein Total Protein 5.5 L Albumin 1.8 L Vancomycin Trough 45.4 H Random Vancomycin Miscellaneous Test 01/30/20 01/30/20 01/30/20 12:21 16:51 22:54 WBC RBC Hgb Hct MCV MCH RDW Lymph % (Auto) [place] % (Auto) Eos % (Auto) Lymph # [place] # Seg Neutrophils % Seg Neuts % (Manual) Lymphocytes % (Manual) Nucleated RBC % Seg Neutrophils # Seg Neutrophils # Man Lymphocytes # (Manual) PT INR D-Dimer ABG pH ABG pO2 ABG HCO3 ABG O2 Saturation ABG Base Excess ABG Hemoglobin Oxyhemoglobin Sodium Potassium Chloride Carbon Dioxide BUN Creatinine Glucose POC Glucose 147 H 119 H 129 H Hemoglobin A1c Lactic Acid Calcium Magnesium Ferritin AST ALT Alkaline Phosphatase Lactate Dehydrogenase C-Reactive Protein Total Protein Albumin Vancomycin Trough Random Vancomycin Miscellaneous Test 01/31/20 01/31/20 01/31/20 03:49 03:49 03:49 WBC RBC Hgb Hct MCV MCH RDW Lymph % (Auto) [place] % (Auto) Eos % (Auto) Lymph # [place] # Seg Neutrophils % Seg Neuts % (Manual) Lymphocytes % (Manual) Nucleated RBC % Seg Neutrophils # Seg Neutrophils # Man Lymphocytes # (Manual) PT INR D-Dimer 801.37 H ABG pH ABG pO2 ABG HCO3 ABG O2 Saturation ABG Base Excess ABG Hemoglobin Oxyhemoglobin Sodium 134 L Potassium Chloride Carbon Dioxide 13 L BUN 97 H Creatinine 4.8 H Glucose 123 H POC Glucose Hemoglobin A1c Lactic Acid Calcium 7.6 L Magnesium Ferritin 3101.0 H AST 112 H ALT 112 H Alkaline Phosphatase 145 H Lactate Dehydrogenase 896 H C-Reactive Protein 11.10 H Total Protein 5.5 L Albumin 1.7 L Vancomycin Trough Random Vancomycin Miscellaneous Test 01/31/20 01/31/20 01/31/20 03:49 08:00 11:48 WBC 16.1 H RBC Hgb Hct MCV MCH 25 L RDW Lymph % (Auto) [place] % (Auto) Eos % (Auto) Lymph # [place] # Seg Neutrophils % Seg Neuts % (Manual) Lymphocytes % (Manual) Nucleated RBC % Seg Neutrophils # Seg Neutrophils # Man Lymphocytes # (Manual) PT INR D-Dimer ABG pH ABG pO2 ABG HCO3 ABG O2 Saturation ABG Base Excess ABG Hemoglobin Oxyhemoglobin Sodium Potassium Chloride Carbon Dioxide BUN Creatinine Glucose POC Glucose 133 H 136 H Hemoglobin A1c Lactic Acid Calcium Magnesium Ferritin AST ALT Alkaline Phosphatase Lactate Dehydrogenase C-Reactive Protein Total Protein Albumin Vancomycin Trough Random Vancomycin Miscellaneous Test 01/31/20 01/31/20 01/31/20 16:14 21:37 22:35 WBC RBC Hgb Hct MCV MCH RDW Lymph % (Auto) [place] % (Auto) Eos % (Auto) Lymph # [place] # Seg Neutrophils % Seg Neuts % (Manual) Lymphocytes % (Manual) Nucleated RBC % Seg Neutrophils # Seg Neutrophils # Man Lymphocytes # (Manual) PT INR D-Dimer ABG pH 7.226 L ABG pO2 77.9 L ABG HCO3 15.2 L ABG O2 Saturation 93.5 L ABG Base Excess -11.6 L ABG Hemoglobin Oxyhemoglobin 91.5 L Sodium Potassium Chloride Carbon Dioxide BUN Creatinine Glucose POC Glucose 151 H 179 H Hemoglobin A1c Lactic Acid Calcium Magnesium Ferritin AST ALT Alkaline Phosphatase Lactate Dehydrogenase C-Reactive Protein Total Protein Albumin Vancomycin Trough Random Vancomycin Miscellaneous Test 02/01/20 02/01/20 02/01/20 03:49 03:49 04:30 WBC 19.3 H RBC 3.53 L Hgb 9.0 L Hct 28.1 L MCV MCH 26 L RDW Lymph % (Auto) [place] % (Auto) Eos % (Auto) Lymph # [place] # Seg Neutrophils % Seg Neuts % (Manual) Lymphocytes % (Manual) Nucleated RBC % Seg Neutrophils # Seg Neutrophils # Man Lymphocytes # (Manual) PT INR D-Dimer ABG pH 7.290 L ABG pO2 120.0 H ABG HCO3 14.2 L ABG O2 Saturation ABG Base Excess -11.2 L ABG Hemoglobin 9.3 L Oxyhemoglobin Sodium 135 L Potassium Chloride Carbon Dioxide 13 L BUN 79 H Creatinine 4.1 H Glucose 198 H POC Glucose Hemoglobin A1c Lactic Acid Calcium 7.0 L Magnesium Ferritin AST ALT Alkaline Phosphatase Lactate Dehydrogenase C-Reactive Protein Total Protein Albumin Vancomycin Trough Random Vancomycin Miscellaneous Test 02/01/20 02/01/20 02/02/20 08:13 11:29 00:05 WBC RBC Hgb Hct MCV MCH RDW Lymph % (Auto) [place] % (Auto) Eos % (Auto) Lymph # [place] # Seg Neutrophils % Seg Neuts % (Manual) Lymphocytes % (Manual) Nucleated RBC % Seg Neutrophils # Seg Neutrophils # Man Lymphocytes # (Manual) PT INR D-Dimer ABG pH ABG pO2 ABG HCO3 ABG O2 Saturation ABG Base Excess ABG Hemoglobin Oxyhemoglobin Sodium Potassium Chloride Carbon Dioxide BUN Creatinine Glucose POC Glucose 153 H 181 H 214 H Hemoglobin A1c Lactic Acid Calcium Magnesium Ferritin AST ALT Alkaline Phosphatase Lactate Dehydrogenase C-Reactive Protein Total Protein Albumin Vancomycin Trough Random Vancomycin Miscellaneous Test 02/02/20 02/02/20 02/02/20 04:17 04:30 04:30 WBC RBC Hgb Hct MCV MCH RDW Lymph % (Auto) [place] % (Auto) Eos % (Auto) Lymph # [place] # Seg Neutrophils % Seg Neuts % (Manual) Lymphocytes % (Manual) Nucleated RBC % Seg Neutrophils # Seg Neutrophils # Man Lymphocytes # (Manual) PT INR D-Dimer 795.93 H ABG pH ABG pO2 ABG HCO3 ABG O2 Saturation ABG Base Excess -3.0 L ABG Hemoglobin 8.5 L Oxyhemoglobin Sodium Potassium Chloride Carbon Dioxide BUN Creatinine Glucose POC Glucose Hemoglobin A1c Lactic Acid Calcium Magnesium Ferritin 1978.0 H AST ALT Alkaline Phosphatase Lactate Dehydrogenase C-Reactive Protein Total Protein Albumin Vancomycin Trough Random Vancomycin Miscellaneous Test 02/02/20 02/02/20 02/02/20 04:30 04:30 05:34 WBC 17.3 H RBC 3.24 L Hgb 8.4 L Hct 24.9 L MCV 77 L MCH 26 L RDW Lymph % (Auto) [place] % (Auto) Eos % (Auto) Lymph # [place] # Seg Neutrophils % Seg Neuts % (Manual) Lymphocytes % (Manual) Nucleated RBC % Seg Neutrophils # Seg Neutrophils # Man Lymphocytes # (Manual) PT INR D-Dimer ABG pH ABG pO2 ABG HCO3 ABG O2 Saturation ABG Base Excess ABG Hemoglobin Oxyhemoglobin Sodium Potassium Chloride Carbon Dioxide 17 L BUN 61 H Creatinine 4.1 H Glucose 244 H POC Glucose 274 H Hemoglobin A1c Lactic Acid Calcium 7.2 L Magnesium Ferritin AST ALT Alkaline Phosphatase Lactate Dehydrogenase 841 H C-Reactive Protein 11.50 H Total Protein Albumin Vancomycin Trough Random Vancomycin Miscellaneous Test 02/02/20 02/02/20 02/02/20 12:26 18:06 23:37 WBC RBC Hgb Hct MCV MCH RDW Lymph % (Auto) [place] % (Auto) Eos % (Auto) Lymph # [place] # Seg Neutrophils % Seg Neuts % (Manual) Lymphocytes % (Manual) Nucleated RBC % Seg Neutrophils # Seg Neutrophils # Man Lymphocytes # (Manual) PT INR D-Dimer ABG pH ABG pO2 ABG HCO3 ABG O2 Saturation ABG Base Excess ABG Hemoglobin Oxyhemoglobin Sodium Potassium Chloride Carbon Dioxide BUN Creatinine Glucose POC Glucose 254 H 285 H 239 H Hemoglobin A1c Lactic Acid Calcium Magnesium Ferritin AST ALT Alkaline Phosphatase Lactate Dehydrogenase C-Reactive Protein Total Protein Albumin Vancomycin Trough Random Vancomycin Miscellaneous Test 02/03/20 02/03/20 02/03/20 04:40 04:56 10:41 WBC RBC Hgb Hct MCV MCH RDW Lymph % (Auto) [place] % (Auto) Eos % (Auto) Lymph # [place] # Seg Neutrophils % Seg Neuts % (Manual) Lymphocytes % (Manual) Nucleated RBC % Seg Neutrophils # Seg Neutrophils # Man Lymphocytes # (Manual) PT INR D-Dimer ABG pH 7.520 H ABG pO2 73.8 L 92.5 H ABG HCO3 ABG O2 Saturation ABG Base Excess ABG Hemoglobin 8.6 L 7.9 L Oxyhemoglobin Sodium Potassium Chloride Carbon Dioxide BUN Creatinine Glucose POC Glucose 227 H Hemoglobin A1c Lactic Acid Calcium Magnesium Ferritin AST ALT Alkaline Phosphatase Lactate Dehydrogenase C-Reactive Protein Total Protein Albumin Vancomycin Trough Random Vancomycin Miscellaneous Test 02/03/20 02/03/20 02/03/20 12:09 17:23 23:41 WBC RBC Hgb Hct MCV MCH RDW Lymph % (Auto) [place] % (Auto) Eos % (Auto) Lymph # [place] # Seg Neutrophils % Seg Neuts % (Manual) Lymphocytes % (Manual) Nucleated RBC % Seg Neutrophils # Seg Neutrophils # Man Lymphocytes # (Manual) PT INR D-Dimer ABG pH ABG pO2 ABG HCO3 ABG O2 Saturation ABG Base Excess ABG Hemoglobin Oxyhemoglobin Sodium Potassium Chloride Carbon Dioxide BUN Creatinine Glucose POC Glucose 268 H 255 H 239 H Hemoglobin A1c Lactic Acid Calcium Magnesium Ferritin AST ALT Alkaline Phosphatase Lactate Dehydrogenase C-Reactive Protein Total Protein Albumin Vancomycin Trough Random Vancomycin Miscellaneous Test 02/04/20 02/04/20 02/04/20 04:31 04:42 04:42 WBC RBC Hgb Hct MCV MCH RDW Lymph % (Auto) [place] % (Auto) Eos % (Auto) Lymph # [place] # Seg Neutrophils % Seg Neuts % (Manual) Lymphocytes % (Manual) Nucleated RBC % Seg Neutrophils # Seg Neutrophils # Man Lymphocytes # (Manual) PT INR D-Dimer 694.19 H ABG pH ABG pO2 ABG HCO3 ABG O2 Saturation ABG Base Excess ABG Hemoglobin Oxyhemoglobin Sodium Potassium Chloride Carbon Dioxide BUN Creatinine Glucose POC Glucose 216 H Hemoglobin A1c Lactic Acid Calcium Magnesium Ferritin 1660.0 H AST ALT Alkaline Phosphatase Lactate Dehydrogenase C-Reactive Protein Total Protein Albumin Vancomycin Trough Random Vancomycin Miscellaneous Test 02/04/20 02/04/20 02/04/20 04:42 04:42 12:03 WBC 13.7 H RBC 2.92 L Hgb 7.4 L Hct 23.0 L MCV MCH 25 L RDW Lymph % (Auto) [place] % (Auto) Eos % (Auto) Lymph # [place] # Seg Neutrophils % Seg Neuts % (Manual) Lymphocytes % (Manual) Nucleated RBC % Seg Neutrophils # Seg Neutrophils # Man Lymphocytes # (Manual) PT INR D-Dimer ABG pH ABG pO2 ABG HCO3 ABG O2 Saturation ABG Base Excess ABG Hemoglobin Oxyhemoglobin Sodium Potassium Chloride Carbon Dioxide 17 L BUN 80 H Creatinine 5.8 H Glucose 209 H POC Glucose 248 H Hemoglobin A1c Lactic Acid Calcium 8.3 L D Magnesium Ferritin AST ALT Alkaline Phosphatase Lactate Dehydrogenase 972 H C-Reactive Protein 6.20 H Total Protein Albumin Vancomycin Trough Random Vancomycin Miscellaneous Test 02/04/20 02/04/20 02/04/20 17:42 23:48 Unknown WBC RBC Hgb Hct MCV MCH RDW Lymph % (Auto) [place] % (Auto) Eos % (Auto) Lymph # [place] # Seg Neutrophils % Seg Neuts % (Manual) Lymphocytes % (Manual) Nucleated RBC % Seg Neutrophils # Seg Neutrophils # Man Lymphocytes # (Manual) PT INR D-Dimer ABG pH 7.484 H ABG pO2 104.8 H ABG HCO3 ABG O2 Saturation ABG Base Excess ABG Hemoglobin 9.5 L Oxyhemoglobin Sodium Potassium Chloride Carbon Dioxide BUN Creatinine Glucose POC Glucose 209 H 166 H Hemoglobin A1c Lactic Acid Calcium Magnesium Ferritin AST ALT Alkaline Phosphatase Lactate Dehydrogenase C-Reactive Protein Total Protein Albumin Vancomycin Trough Random Vancomycin Miscellaneous Test 02/05/20 02/05/20 02/05/20 03:51 03:51 05:43 WBC 13.9 H RBC 2.98 L Hgb 7.6 L Hct 23.4 L MCV MCH 26 L RDW Lymph % (Auto) [place] % (Auto) Eos % (Auto) Lymph # [place] # Seg Neutrophils % Seg Neuts % (Manual) Lymphocytes % (Manual) Nucleated RBC % Seg Neutrophils # Seg Neutrophils # Man Lymphocytes # (Manual) PT INR D-Dimer ABG pH ABG pO2 ABG HCO3 ABG O2 Saturation ABG Base Excess ABG Hemoglobin Oxyhemoglobin Sodium Potassium Chloride Carbon Dioxide 19 L BUN 65 H Creatinine 5.9 H Glucose 167 H POC Glucose 148 H Hemoglobin A1c Lactic Acid Calcium 8.3 L Magnesium Ferritin AST ALT Alkaline Phosphatase Lactate Dehydrogenase C-Reactive Protein Total Protein Albumin Vancomycin Trough Random Vancomycin Miscellaneous Test 02/05/20 02/05/20 02/05/20 12:34 18:55 23:48 WBC RBC Hgb Hct MCV MCH RDW Lymph % (Auto) [place] % (Auto) Eos % (Auto) Lymph # [place] # Seg Neutrophils % Seg Neuts % (Manual) Lymphocytes % (Manual) Nucleated RBC % Seg Neutrophils # Seg Neutrophils # Man Lymphocytes # (Manual) PT INR D-Dimer ABG pH ABG pO2 ABG HCO3 ABG O2 Saturation ABG Base Excess ABG Hemoglobin Oxyhemoglobin Sodium Potassium Chloride Carbon Dioxide BUN Creatinine Glucose POC Glucose 267 H 166 H 241 H Hemoglobin A1c Lactic Acid Calcium Magnesium Ferritin AST ALT Alkaline Phosphatase Lactate Dehydrogenase C-Reactive Protein Total Protein Albumin Vancomycin Trough Random Vancomycin Miscellaneous Test 02/05/20 02/06/20 02/06/20 Unknown 03:38 03:38 WBC RBC Hgb Hct MCV MCH RDW Lymph % (Auto) [place] % (Auto) Eos % (Auto) Lymph # [place] # Seg Neutrophils % Seg Neuts % (Manual) Lymphocytes % (Manual) Nucleated RBC % Seg Neutrophils # Seg Neutrophils # Man Lymphocytes # (Manual) PT INR D-Dimer 1067.61 H ABG pH 7.497 H ABG pO2 111.6 H ABG HCO3 ABG O2 Saturation ABG Base Excess ABG Hemoglobin 7.4 L Oxyhemoglobin Sodium Potassium Chloride Carbon Dioxide BUN Creatinine Glucose POC Glucose Hemoglobin A1c Lactic Acid Calcium Magnesium Ferritin 1277.0 H AST ALT Alkaline Phosphatase Lactate Dehydrogenase C-Reactive Protein Total Protein Albumin Vancomycin Trough Random Vancomycin Miscellaneous Test 02/06/20 02/06/20 02/06/20 03:38 03:38 06:04 WBC 13.8 H RBC 3.16 L Hgb 8.0 L Hct 25.7 L MCV MCH 25 L RDW Lymph % (Auto) [place] % (Auto) Eos % (Auto) Lymph # [place] # Seg Neutrophils % Seg Neuts % (Manual) Lymphocytes % (Manual) Nucleated RBC % Seg Neutrophils # Seg Neutrophils # Man Lymphocytes # (Manual) PT INR D-Dimer ABG pH ABG pO2 ABG HCO3 ABG O2 Saturation ABG Base Excess ABG Hemoglobin Oxyhemoglobin Sodium Potassium Chloride Carbon Dioxide 21 L BUN 66 H Creatinine 6.0 H Glucose 213 H POC Glucose 232 H Hemoglobin A1c Lactic Acid Calcium Magnesium Ferritin AST ALT Alkaline Phosphatase Lactate Dehydrogenase 48 L C-Reactive Protein Total Protein Albumin Vancomycin Trough Random Vancomycin Miscellaneous Test 02/06/20 02/06/20 02/06/20 11:54 17:34 22:20 WBC RBC Hgb Hct MCV MCH RDW Lymph % (Auto) [place] % (Auto) Eos % (Auto) Lymph # [place] # Seg Neutrophils % Seg Neuts % (Manual) Lymphocytes % (Manual) Nucleated RBC % Seg Neutrophils # Seg Neutrophils # Man Lymphocytes # (Manual) PT INR D-Dimer ABG pH ABG pO2 ABG HCO3 ABG O2 Saturation ABG Base Excess ABG Hemoglobin Oxyhemoglobin Sodium Potassium Chloride Carbon Dioxide BUN Creatinine Glucose POC Glucose 230 H 220 H 262 H Hemoglobin A1c Lactic Acid Calcium Magnesium Ferritin AST ALT Alkaline Phosphatase Lactate Dehydrogenase C-Reactive Protein Total Protein Albumin Vancomycin Trough Random Vancomycin Miscellaneous Test 02/07/20 02/07/20 02/07/20 05:05 05:05 05:24 WBC 15.0 H RBC 3.30 L Hgb 8.3 L Hct 26.6 L MCV MCH 25 L RDW Lymph % (Auto) [place] % (Auto) Eos % (Auto) Lymph # [place] # Seg Neutrophils % Seg Neuts % (Manual) Lymphocytes % (Manual) Nucleated RBC % Seg Neutrophils # Seg Neutrophils # Man Lymphocytes # (Manual) PT INR D-Dimer ABG pH ABG pO2 ABG HCO3 ABG O2 Saturation ABG Base Excess ABG Hemoglobin Oxyhemoglobin Sodium Potassium Chloride Carbon Dioxide BUN 63 H Creatinine 6.1 H Glucose 231 H POC Glucose 192 H Hemoglobin A1c Lactic Acid Calcium Magnesium Ferritin AST ALT Alkaline Phosphatase Lactate Dehydrogenase C-Reactive Protein Total Protein Albumin Vancomycin Trough Random Vancomycin Miscellaneous Test 02/07/20 02/07/20 02/07/20 12:07 16:45 22:44 WBC RBC Hgb Hct MCV MCH RDW Lymph % (Auto) [place] % (Auto) Eos % (Auto) Lymph # [place] # Seg Neutrophils % Seg Neuts % (Manual) Lymphocytes % (Manual) Nucleated RBC % Seg Neutrophils # Seg Neutrophils # Man Lymphocytes # (Manual) PT INR D-Dimer ABG pH ABG pO2 ABG HCO3 ABG O2 Saturation ABG Base Excess ABG Hemoglobin Oxyhemoglobin Sodium Potassium Chloride Carbon Dioxide BUN Creatinine Glucose POC Glucose 218 H 191 H 172 H Hemoglobin A1c Lactic Acid Calcium Magnesium Ferritin AST ALT Alkaline Phosphatase Lactate Dehydrogenase C-Reactive Protein Total Protein Albumin Vancomycin Trough Random Vancomycin Miscellaneous Test 02/08/20 02/08/20 02/08/20 04:57 04:57 04:57 WBC RBC Hgb Hct MCV MCH RDW Lymph % (Auto) [place] % (Auto) Eos % (Auto) Lymph # [place] # Seg Neutrophils % Seg Neuts % (Manual) Lymphocytes % (Manual) Nucleated RBC % Seg Neutrophils # Seg Neutrophils # Man Lymphocytes # (Manual) PT INR D-Dimer 1210.49 H ABG pH ABG pO2 ABG HCO3 ABG O2 Saturation ABG Base Excess ABG Hemoglobin Oxyhemoglobin Sodium Potassium Chloride Carbon Dioxide BUN Creatinine Glucose POC Glucose Hemoglobin A1c Lactic Acid Calcium Magnesium Ferritin 850.8 H AST ALT Alkaline Phosphatase Lactate Dehydrogenase 864 H C-Reactive Protein 5.50 H Total Protein Albumin Vancomycin Trough Random Vancomycin Miscellaneous Test 02/08/20 02/08/20 02/08/20 06:33 11:50 17:06 WBC RBC Hgb Hct MCV MCH RDW Lymph % (Auto) [place] % (Auto) Eos % (Auto) Lymph # [place] # Seg Neutrophils % Seg Neuts % (Manual) Lymphocytes % (Manual) Nucleated RBC % Seg Neutrophils # Seg Neutrophils # Man Lymphocytes # (Manual) PT INR D-Dimer ABG pH ABG pO2 ABG HCO3 ABG O2 Saturation ABG Base Excess ABG Hemoglobin Oxyhemoglobin Sodium Potassium Chloride Carbon Dioxide BUN Creatinine Glucose POC Glucose 178 H 166 H 170 H Hemoglobin A1c Lactic Acid Calcium Magnesium Ferritin AST ALT Alkaline Phosphatase Lactate Dehydrogenase C-Reactive Protein Total Protein Albumin Vancomycin Trough Random Vancomycin Miscellaneous Test 02/08/20 02/09/20 02/09/20 23:43 04:47 05:27 WBC RBC 3.20 L Hgb 8.4 L Hct 25.6 L MCV MCH 26 L RDW Lymph % (Auto) 13.0 L [place] % (Auto) 11.8 H Eos % (Auto) 4.5 H Lymph # 1.1 L [place] # 1.0 H Seg Neutrophils % 70.2 H Seg Neuts % (Manual) Lymphocytes % (Manual) Nucleated RBC % Seg Neutrophils # Seg Neutrophils # Man Lymphocytes # (Manual) PT INR D-Dimer ABG pH ABG pO2 ABG HCO3 ABG O2 Saturation ABG Base Excess ABG Hemoglobin Oxyhemoglobin Sodium Potassium Chloride Carbon Dioxide BUN Creatinine Glucose POC Glucose 110 H 154 H Hemoglobin A1c Lactic Acid Calcium Magnesium Ferritin AST ALT Alkaline Phosphatase Lactate Dehydrogenase C-Reactive Protein Total Protein Albumin Vancomycin Trough Random Vancomycin Miscellaneous Test 02/09/20 02/09/20 02/09/20 05:27 11:23 17:33 WBC RBC Hgb Hct MCV MCH RDW Lymph % (Auto) [place] % (Auto) Eos % (Auto) Lymph # [place] # Seg Neutrophils % Seg Neuts % (Manual) Lymphocytes % (Manual) Nucleated RBC % Seg Neutrophils # Seg Neutrophils # Man Lymphocytes # (Manual) PT INR D-Dimer ABG pH ABG pO2 ABG HCO3 ABG O2 Saturation ABG Base Excess ABG Hemoglobin Oxyhemoglobin Sodium Potassium Chloride 96.9 L Carbon Dioxide BUN 57 H Creatinine 5.9 H Glucose 165 H POC Glucose 177 H 130 H Hemoglobin A1c Lactic Acid Calcium Magnesium Ferritin AST ALT Alkaline Phosphatase Lactate Dehydrogenase C-Reactive Protein Total Protein Albumin Vancomycin Trough Random Vancomycin Miscellaneous Test 02/10/20 02/10/20 02/10/20 07:42 12:01 16:53 WBC RBC Hgb Hct MCV MCH RDW Lymph % (Auto) [place] % (Auto) Eos % (Auto) Lymph # [place] # Seg Neutrophils % Seg Neuts % (Manual) Lymphocytes % (Manual) Nucleated RBC % Seg Neutrophils # Seg Neutrophils # Man Lymphocytes # (Manual) PT INR D-Dimer ABG pH ABG pO2 ABG HCO3 ABG O2 Saturation ABG Base Excess ABG Hemoglobin Oxyhemoglobin Sodium Potassium Chloride Carbon Dioxide BUN Creatinine Glucose POC Glucose 115 H 127 H 122 H Hemoglobin A1c Lactic Acid Calcium Magnesium Ferritin AST ALT Alkaline Phosphatase Lactate Dehydrogenase C-Reactive Protein Total Protein Albumin Vancomycin Trough Random Vancomycin Miscellaneous Test 02/11/20 02/12/20 08:23 12:37 WBC RBC Hgb Hct MCV MCH RDW Lymph % (Auto) [place] % (Auto) Eos % (Auto) Lymph # [place] # Seg Neutrophils % Seg Neuts % (Manual) Lymphocytes % (Manual) Nucleated RBC % Seg Neutrophils # Seg Neutrophils # Man Lymphocytes # (Manual) PT INR D-Dimer ABG pH ABG pO2 ABG HCO3 ABG O2 Saturation ABG Base Excess ABG Hemoglobin Oxyhemoglobin Sodium Potassium Chloride Carbon Dioxide BUN Creatinine Glucose POC Glucose 112 H 114 H Hemoglobin A1c Lactic Acid Calcium Magnesium Ferritin AST ALT Alkaline Phosphatase Lactate Dehydrogenase C-Reactive Protein Total Protein Albumin Vancomycin Trough Random Vancomycin Miscellaneous Test Allied health notes reviewed: nursing
--- NOTE | 2020-02-13 17:36 | Progress Note ---
Assessment and Plan Assessment and plan: --Awaiting LTAC placement; Awaiting outpatient HD chair scheduling, Case management Assisting with discharge planning --Severe sepsis due to COVID 19 induced pneumonia Acute on chronic respiratory failure requiring mechanical ventilation s/p extubation, continue nasal cannula oxygen --Acute metabolic encephalopathy; Multifactorial, supportive care mild improvement --Multiple Organ involvement/poor prognosis --Left medial thigh abscess status post I&D --status post surgical debridement Wound VAC in place, DC with wound VAC and follow-up wound care clinic, in network per insurance --Diabetic foot wound nonhealing, continue wound care --Morbid obesity hypoventilation syndrome --Acute kidney injury secondary to vasomotor nephropathy Received HD MWF, now HD as needed basis per nephrology Last HD was on 02/08/2020 --Anemia; of chronic kidney disease Closely monitor H&H and transfuse as needed --Hyponatremia-resolved, monitor electrolytes --Type II diabetes mellitus with uncontrolled blood sugar Accu-Chek sliding scale coverage ADA diet and insulin --Morbid obesity; BMI 44.8 --Hypertension monitor closely for septic shock --Severe protein calorie malnutrition: Secondary to underlying disease process Nutrition supplements nutrition consult --Dysphagia; resolved Patient is tolerating oral food --DC planning; per case management -Outpatient HD chair scheduling -Possible LTAC placement -Wound care wound VAC at discharge Disposition per nephrology Monitor closely and adjust the management as needed History Interval history: Patient seen and examined in her room in third floor this morning Patient is in contact and droplet isolation, full PPE used throughout the time of evaluation Patient feels slightly better No new complaints Afebrile vital signs reviewed PUI?: No COVID19: Positive Hospitalist Physical - Constitutional Vitals: Temp Pulse Resp BP Pulse Ox 98.8 F 98 H 18 122/68 100 02/13/20 16:48 02/13/20 16:48 02/13/20 16:48 02/13/20 16:48 02/13/20 16:48 General appearance: Present: mild distress, well-nourished, obese (Morbidly obese) - EENT Eyes: Present: PERRL, EOM intact - Neck Neck: Present: supple, normal ROM - Respiratory Respiratory effort: normal Respiratory: bilateral: diminished, rhonchi, negative: rales, wheezing - Cardiovascular Rhythm: regular Heart Sounds: Present: S1 & S2 - Extremities Extremities: no ischemia, No edema - Abdominal General gastrointestinal: soft, non-tender, non-distended, normal bowel sounds - Integumentary Integumentary: Present: clear, warm - Psychiatric Psychiatric: appropriate mood/affect, cooperative - Neurologic Neurologic: moves all extremities Results - Labs CBC & Chem 7: 02/09/20 05:27 02/09/20 05:27 Labs: Laboratory Last Values WBC 8.6 K/mm3 (4.5-11.0) 02/09/20 05:27 RBC 3.20 M/mm3 (3.65-5.03) L 02/09/20 05:27 Hgb 8.4 gm/dl (10.1-14.3) L 02/09/20 05:27 Hct 25.6 % (30.3-42.9) L 02/09/20 05:27 MCV 80 fl (79-97) 02/09/20 05:27 MCH 26 pg (28-32) L 02/09/20 05:27 MCHC 33 % (30-34) 02/09/20 05:27 RDW 13.7 % (13.2-15.2) 02/09/20 05:27 Plt Count 186 K/mm3 (140-440) 02/09/20 05:27 Lymph % (Auto) 13.0 % (13.4-35.0) L 02/09/20 05:27 [place] % (Auto) 11.8 % (0.0-7.3) H 02/09/20 05:27 Eos % (Auto) 4.5 % (0.0-4.3) H 02/09/20 05:27 Baso % (Auto) 0.5 % (0.0-1.8) 02/09/20 05:27 Lymph # 1.1 K/mm3 (1.2-5.4) L 02/09/20 05:27 [place] # 1.0 K/mm3 (0.0-0.8) H 02/09/20 05:27 Eos # 0.4 K/mm3 (0.0-0.4) 02/09/20 05:27 Baso # 0.0 K/mm3 (0.0-0.1) 02/09/20 05:27 Add Manual Diff Complete 01/26/20 05:40 Total Counted 100 01/26/20 05:40 Seg Neutrophils % 70.2 % (40.0-70.0) H 02/09/20 05:27 Seg Neuts % (Manual) 90.0 % (40.0-70.0) H 01/26/20 05:40 Band Neutrophils % 5.0 % 01/26/20 05:40 Lymphocytes % (Manual) 1.0 % (13.4-35.0) L 01/26/20 05:40 Reactive Lymphs % (Man) 0 % 01/26/20 05:40 Monocytes % (Manual) 2.0 % (0.0-7.3) 01/26/20 05:40 Eosinophils % (Manual) 2.0 % (0.0-4.3) 01/26/20 05:40 Basophils % (Manual) 0 % (0.0-1.8) 01/26/20 05:40 Metamyelocytes % 0 % 01/26/20 05:40 Myelocytes % 0 % 01/26/20 05:40 Promyelocytes % 0 % 01/26/20 05:40 Blast Cells % 0 % 01/26/20 05:40 Nucleated RBC % 1.0 % (0.0-0.9) H 01/26/20 05:40 Seg Neutrophils # 6.0 K/mm3 (1.8-7.7) 02/09/20 05:27 Seg Neutrophils # Man 14.8 K/mm3 (1.8-7.7) H 01/26/20 05:40 Band Neutrophils # 0.8 K/mm3 01/26/20 05:40 Lymphocytes # (Manual) 0.2 K/mm3 (1.2-5.4) L 01/26/20 05:40 Abs React Lymphs (Man) 0.0 K/mm3 01/26/20 05:40 Monocytes # (Manual) 0.3 K/mm3 (0.0-0.8) 01/26/20 05:40 Eosinophils # (Manual) 0.3 K/mm3 (0.0-0.4) 01/26/20 05:40 Basophils # (Manual) 0.0 K/mm3 (0.0-0.1) 01/26/20 05:40 Metamyelocytes # 0.0 K/mm3 01/26/20 05:40 Myelocytes # 0.0 K/mm3 01/26/20 05:40 Promyelocytes # 0.0 K/mm3 01/26/20 05:40 Blast Cells # 0.0 K/mm3 01/26/20 05:40 WBC Morphology Not Reportable 01/26/20 05:40 Hypersegmented Neuts Not Reportable 01/26/20 05:40 Hyposegmented Neuts Not Reportable 01/26/20 05:40 Hypogranular Neuts Not Reportable 01/26/20 05:40 Smudge Cells Not Reportable 01/26/20 05:40 Toxic Granulation Not Reportable 01/26/20 05:40 Toxic Vacuolation Not Reportable 01/26/20 05:40 Dohle Bodies Not Reportable 01/26/20 05:40 Pelger-Huet Anomaly Not Reportable 01/26/20 05:40 Barbie Rods Not Reportable 01/26/20 05:40 Platelet Estimate Consistent w auto 01/26/20 05:40 Clumped Platelets Not Reportable 01/26/20 05:40 Plt Clumps, EDTA Not Reportable 01/26/20 05:40 Large Platelets Not Reportable 01/26/20 05:40 Giant Platelets Not Reportable 01/26/20 05:40 Platelet Satelliting Not Reportable 01/26/20 05:40 Plt Morphology Comment Not Reportable 01/26/20 05:40 RBC Morphology Normal 01/26/20 05:40 Dimorphic RBCs Not Reportable 01/26/20 05:40 Polychromasia Not Reportable 01/26/20 05:40 Hypochromasia Not Reportable 01/26/20 05:40 Poikilocytosis Not Reportable 01/26/20 05:40 Anisocytosis Not Reportable 01/26/20 05:40 Microcytosis Not Reportable 01/26/20 05:40 Macrocytosis Not Reportable 01/26/20 05:40 Spherocytes Not Reportable 01/26/20 05:40 Pappenheimer Bodies Not Reportable 01/26/20 05:40 Sickle Cells Not Reportable 01/26/20 05:40 Target Cells Not Reportable 01/26/20 05:40 Tear Drop Cells Not Reportable 01/26/20 05:40 Ovalocytes Not Reportable 01/26/20 05:40 Helmet Cells Not Reportable 01/26/20 05:40 [place] Bodies Not Reportable 01/26/20 05:40 [place] Rings Not Reportable 01/26/20 05:40 [place] Cells Not Reportable 01/26/20 05:40 Bite Cells Not Reportable 01/26/20 05:40 Crenated Cell Not Reportable 01/26/20 05:40 Elliptocytes Not Reportable 01/26/20 05:40 Acanthocytes (Spur) Not Reportable 01/26/20 05:40 Rouleaux Not Reportable 01/26/20 05:40 Hemoglobin C Crystals Not Reportable 01/26/20 05:40 Schistocytes Not Reportable 01/26/20 05:40 Malaria parasites Not Reportable 01/26/20 05:40 ESR 70 mm/Hr (0-20) 01/17/20 22:58 Ras Bodies Not Reportable 01/26/20 05:40 Hem Pathologist Commnt No 01/26/20 05:40 PT 15.6 Sec. (12.2-14.9) H 01/17/20 18:28 INR 1.22 (0.87-1.13) H 01/17/20 18:28 D-Dimer 1210.49 ng/mlDDU (0-234) H 02/08/20 04:57 ABG pH 7.497 pH Units (7.350-7.450) H 02/05/20 Unknown ABG pCO2 30.2 mm Hg 02/05/20 Unknown ABG pO2 111.6 mm Hg (80.0-90.0) H 02/05/20 Unknown ABG HCO3 22.9 mmol/L (20.0-26.0) 02/05/20 Unknown ABG O2 Saturation 98.3 % (95.0-99.0) 02/05/20 Unknown ABG O2 Content 10.3 (0.0-44) 02/05/20 Unknown ABG Base Excess -0.1 mmol/L (-2.0-3.0) 02/05/20 Unknown ABG Hemoglobin 7.4 gm/dl (12.0-16.0) L 02/05/20 Unknown ABG Carboxyhemoglobin 1.3 % (0.0-5.0) 02/05/20 Unknown ABG Methemoglobin 0.4 % (0.0-1.5) 02/05/20 Unknown VBG pH 7.409 (7.320-7.420) 01/17/20 18:28 Oxyhemoglobin 96.7 % (95.0-99.0) 02/05/20 Unknown FiO2 40 % 02/05/20 Unknown Sodium 139 mmol/L (137-145) 02/09/20 05:27 Potassium 4.4 mmol/L (3.6-5.0) 02/09/20 05:27 Chloride 96.9 mmol/L (98-107) L 02/09/20 05:27 Carbon Dioxide 22 mmol/L (22-30) 02/09/20 05:27 Anion Gap 25 mmol/L 02/09/20 05:27 BUN 57 mg/dL (7-17) H 02/09/20 05:27 Creatinine 5.9 mg/dL (0.7-1.2) H 02/09/20 05:27 Estimated GFR 10 ml/min 02/09/20 05:27 BUN/Creatinine Ratio 10 % 02/09/20 05:27 Glucose 165 mg/dL (65-100) H 02/09/20 05:27 POC Glucose 72 (70-105) 02/13/20 16:58 Hemoglobin A1c 11.6 % (4-6) H 01/18/20 12:47 Lactic Acid 1.30 mmol/L (0.7-2.0) 01/18/20 08:30 Calcium 8.6 mg/dL (8.4-10.2) 02/09/20 05:27 Magnesium 1.50 mg/dL (1.7-2.3) L 01/17/20 22:58 Ferritin 850.8 ng/mL (13.0-400.0) H 02/08/20 04:57 Total Bilirubin 0.50 mg/dL (0.1-1.2) 01/31/20 03:49 AST 112 units/L (5-40) H 01/31/20 03:49 ALT 112 units/L (7-56) H 01/31/20 03:49 Alkaline Phosphatase 145 units/L (35-129) H 01/31/20 03:49 Lactate Dehydrogenase 864 units/L (91-180) H 02/08/20 04:57 Total Creatine Kinase 122 units/L (30-135) 01/17/20 22:58 C-Reactive Protein 5.50 mg/dL (0.00-1.30) H 02/08/20 04:57 Total Protein 5.5 g/dL (6.3-8.2) L 01/31/20 03:49 Albumin 1.7 g/dL (3.9-5) L 01/31/20 03:49 Albumin/Globulin Ratio 0.4 % 01/31/20 03:49 Procalcitonin 0.27 ng/mL (<0.15) 01/23/20 10:36 HCG, Qual Negative (Negative) 01/31/20 03:49 Urine Color Yellow (Yellow) 01/18/20 00:32 Urine Turbidity Slightly-cloudy (Clear) 01/18/20 00:32 Urine pH 5.0 (5.0-7.0) 01/18/20 00:32 Ur Specific [place] 1.011 (1.003-1.030) 01/18/20 00:32 Urine Protein 100 mg/dl mg/dL (Negative) 01/18/20 00:32 Urine Glucose (UA) >=500 mg/dL (Negative) 01/18/20 00:32 Urine Ketones Tr mg/dL (Negative) 01/18/20 00:32 Urine Blood Neg (Negative) 01/18/20 00:32 Urine Nitrite Neg (Negative) 01/18/20 00:32 Urine Bilirubin Neg (Negative) 01/18/20 00:32 Urine Urobilinogen < 2.0 mg/dL (<2.0) 01/18/20 00:32 Ur Leukocyte Esterase Neg (Negative) 01/18/20 00:32 Urine WBC (Auto) 2.0 /HPF (0.0-6.0) 01/18/20 00:32 Urine RBC (Auto) 4.0 /HPF (0.0-6.0) 01/18/20 00:32 U Epithel Cells (Auto) 2.0 /HPF (0-13.0) 01/18/20 00:32 Hyaline Casts 1 /LPF 01/18/20 00:32 Urine Mucus Few /HPF 01/18/20 00:32 Urine Yeast (Budding) Few /HPF 01/18/20 00:32 Vancomycin Trough 45.4 ug/mL (5.0-20.0) H 01/30/20 05:19 Random Vancomycin 30.6 ug/mL (0-40.0) 02/01/20 03:49 Hepatitis A IgM Ab Non-reactive (NonReactive) 02/01/20 10:57 Hep Bs Antigen Non-reactive (Negative) 02/01/20 10:57 Hep B Core IgM Ab Non-reactive (NonReactive) 02/01/20 10:57 Hepatitis C Antibody Non-reactive (NonReactive) 02/01/20 10:57 Influenza A (Rapid) Negative (Negative) 01/19/20 01:10 Influenza B (Rapid) Negative (Negative) 01/19/20 01:10 AFB Identification 01/20/20 04:00 Miscellaneous Test Flexitest 1 H 01/28/20 10:00 Goldstein/IV: Voiding Method Diaper IV Catheter Type [right ac] INT / Saline Lock IV Catheter Type [Right trialysis Femoral] IV Catheter Type [Right Peripheral IV Forearm] IV Catheter Type [Right Wrist] INT / Saline Lock IV Catheter Type [Right Hand] RIGHT THUMB INT IV Catheter Type [Right Upper INT / Saline Lock arm] IV Catheter Type [Left Hand] INT / Saline Lock Active Medications - Current Medications Current Medications: Generic Name Dose Route Start Last Admin Trade Name Freq PRN Reason Stop Dose Admin Acetaminophen 650 mg 01/17/20 23:06 02/12/20 22:17 Tylenol PO 650 mg Q4H PRN Administration Pain MILD(1-3)/Fever >100.5/COLLINS Al Hydrox/Mg Hydrox/Simethicone 15 ml 02/12/20 14:28 Alum-Mag Hydrox-Simeth 310-159-72dl/5ml PO Q4H PRN Indigestion Alprazolam 0.5 mg 02/13/20 00:31 02/13/20 00:56 Xanax PO 0.5 mg QHS PRN Administration Anxiety Lipase/Protease/Amylase 1 each 02/01/20 09:53 Pancreaze 10,500 Unit FEEDTUBE PRN PRN For Clogged Feeding Tube Dextrose 0 ml 01/17/20 23:06 D50w (25gm) Syringe IV Q30MIN PRN Hypoglycemia Protocol Famotidine 20 mg 01/24/20 10:00 02/13/20 10:30 Pepcid PO 20 mg QDAY COBY Administration Heparin Sodium (Porcine) 5,000 unit 01/18/20 06:00 02/13/20 14:47 Heparin SUB-Q 5,000 unit Q8HR COBY Administration Hydralazine HCl 10 mg 01/18/20 22:14 02/12/20 07:50 Apresoline IV 10 mg Q6H PRN Administration Hypertension Hydrophilic Ointment 1 applic 01/31/20 21:48 02/12/20 16:32 Vaseline Lip Therapy TP 1 applic Q2HR PRN Administration Dry Lips Hydrophilic Ointment 1 applic 02/12/20 13:31 Vaseline Lip Therapy TP DIRECT PRN Dry Lips Sodium Chloride 100 mls @ 999 mls/hr 02/05/20 11:31 Nacl 0.9% IV KIRSTEN PRN Hypotension Insulin Human Regular 5 units 02/09/20 22:00 02/13/20 12:30 Humulin R SUB-Q Not Given ACHS [facility] Insulin Human Regular 0 units 02/09/20 22:00 02/13/20 12:31 Humulin R SUB-Q Not Given ACHS [facility] Protocol Magnesium Hydroxide 30 ml 01/17/20 23:06 Milk Of Magnesia PO Q4H PRN Constipation Morphine Sulfate 2 mg 01/17/20 23:06 02/13/20 02:29 Morphine IV 2 mg Q4H PRN Administration Pain, Moderate (4-6) Multi-Ingred Cream/Lotion/Oil/Oint 1 applic 01/31/20 21:48 Artificial Tears Ophth Oint OU Q4HR PRN Dry Eye(s) Nystatin 1 applic 01/29/20 14:00 02/13/20 10:31 Nystop TP 1 applic BID COBY Administration Ondansetron HCl 4 mg 02/12/20 14:29 02/12/20 16:31 Zofran IV 4 mg Q4H PRN Administration Nausea And Vomiting Simple Syrup 15 ml 02/01/20 09:53 Simple Syrup FEEDTUBE PRN PRN Hypoglycemia Simple Syrup 30 ml 02/01/20 09:53 Simple Syrup FEEDTUBE PRN PRN Hypoglycemia Sodium Bicarbonate 325 mg 02/01/20 09:53 Sodium Bicarbonate FEEDTUBE PRN PRN For Clogged Feeding Tube Sodium Chloride 10 ml 01/18/20 10:00 02/13/20 10:30 Sodium Chloride Flush Syringe 10 Ml IV 10 ml BID COBY Administration Sodium Chloride 10 ml 01/17/20 23:06 02/04/20 05:07 Sodium Chloride Flush Syringe 10 Ml IV 10 ml PRN PRN Administration LINE FLUSH Nutrition/Malnutrition Assess - Dietary Evaluation Nutrition/Malnutrition Findings: Nutrition Notes Start: 01/18/20 13:13 Freq: Status: Active Protocol: Document 02/13/20 12:18 [email or web address] (Rec: 02/13/20 12:34 CAHUBER [email or web address]) Nutrition Notes Initial or Follow up Reassessment Current Diagnosis CKD (stage V CKD),Diabetes, Sepsis,Hypertension Other Pertinent Diagnosis LEV pneu, COVID-19, (L) thigh abscess, (R) foot wound Current Diet Mech soft with chopped meats + Nepro TID Labs/Tests A1C 11.6 Pertinent Medications reviewed Height 6 ft Weight 138 kg Clive Body Weight (kg) 72.72 BMI 41.2 Weight change and time frame Wt fluctuations likely sec to HD and hx of HTN Weight Status Morbidly Obese Subjective/Other Information Pt has consumed <10% of meals per documentation in chart. Per RN note this am, pt c/o generalized body pain. Pt also with increased anxiety, restlessness and difficulty sleeping. Pt s/p surgical debridement of (L) thigh wound ; has wound vac. Pt refused dinner last pm. She is receiving HD at time of phone call from RD (12:02). Pt awaiting LTAC placement. Burn Absent Trauma Absent #3 Nutrition Diagnosis Inadequate oral intake Diagnosis Progress(for reassessment Continues documentation) #2 Nutrition Diagnosis Inadequate protein-energy intake Diagnosis Progress(for reassessment Continues documentation) #1 Nutrition Diagnosis Increased nutrient needs ( specify in comment below) Diagnosis Progress(for reassessment Continues documentation) Is patient on ventilator? No Is Patient Ambulatory and/or Out of Bed No REE-([facility]-confined to bed) 2655.624 Kcal/Kg value to use for calculation 14 Approximate Energy Requirements Using 1932 kcal/Kg Calculation Used for Recommendations Kcal/kg Additional Notes Pro need >1.2g/kg adjBW: >126g /day Fluid needs 1-1.5L/day Nutrition Intervention Change Diet Order: Add Consistent CHO modifier to current diet order Add Supplement/Snack (indicate name/kcal Nepro TID /protein ) Provides kCal: 1,275 Provides Protein (gm) 57 Goal #1 PO intake of meals plus ONS to meet at least 75% energy and pro needs Goal #2 Wound healing Follow-Up By: 02/15/20 Additional Comments F/U: intakes (meals/ONS)
--- NOTE | 2020-02-13 18:07 | Progress Note ---
Assessment and Plan - Patient Problems (1) Acute kidney injury (CIPRIANO) with acute tubular necrosis (ATN) Current Visit: Yes Status: Acute Plan to address problem: Patient dialysis dependent. kidney indices stable. Arrange outpatient dialysis since no renal recovery yet.spoke with trimming caser. Due to Covid status,Patient will need to go to [facility] clinic in [facility] or [facility] if she is accepted. We will continue to reevaluate on a daily basis (2) Type 2 diabetes mellitus with hyperglycemia Current Visit: Yes Status: Acute Plan to address problem: Blood sugar control by primary attending (3) Pneumonia due to COVID-19 virus Current Visit: Yes Status: Acute Plan to address problem: patient has improved. (4) Abscess of left thigh Current Visit: Yes Status: Acute Plan to address problem: sepsis secondary to left thigh abscess. Status post drainage. Improved with antibiotics (5) Hypertension Current Visit: Yes Status: Acute Qualifiers: Qualified Code(s): I10 - Essential (primary) hypertension Plan to address problem: follow-up blood pressure on current medications Subjective Date of service: 02/13/20 Principal diagnosis: Severe Sepsis; LEV PNA; DM II; COVID-19 infection; CIPRIANO Interval history: Patient seen sitting on the chair. She had dialysis earlier. she complains of nausea when she eats PUI?: No COVID19: Positive Objective - Exam Narrative Exam: obese young -[place] female sitting on the chairin no acute distress HEENT: Normocephalic atraumatic, pupils equal round reactive to light ETT intact Neck: Supple, no venous distention, no goiter CVS: S1S2 RRR No murmur, rub or gallop Lungs: Clear to auscultation, Abdomen: Obese soft, nontender, no organomegaly no bruit, bowel sounds are present Extremities: Mild edema, no cyanosis or clubbing Urinary: Deferred Musculo-skeletal: No joint deformities or swelling, dressing right 1st toe Neuro: Awake, alert, no focal deficits - Vital Signs Vital signs: Vital Signs - 12hr 02/13/20 02/13/20 02/13/20 09:15 09:23 09:30 Temperature 98.1 F Pulse Rate 81 78 81 Respiratory 20 Rate Blood Pressure 158/84 162/93 153/89 O2 Sat by Pulse Oximetry 02/13/20 02/13/20 02/13/20 09:45 10:00 10:15 Temperature Pulse Rate 75 78 81 Respiratory 20 Rate Blood Pressure 171/93 167/95 159/98 O2 Sat by Pulse Oximetry 02/13/20 02/13/20 02/13/20 10:30 10:45 11:00 Temperature Pulse Rate 78 89 104 H Respiratory Rate Blood Pressure 158/88 152/91 156/94 O2 Sat by Pulse Oximetry 02/13/20 02/13/20 02/13/20 11:15 11:30 11:45 Temperature Pulse Rate 92 H 87 107 H Respiratory Rate Blood Pressure 189/100 177/104 195/84 O2 Sat by Pulse Oximetry 02/13/20 02/13/20 02/13/20 12:00 12:16 12:30 Temperature 98.1 F Pulse Rate 98 H 100 H 95 H Respiratory 20 Rate Blood Pressure 144/86 143/86 154/87 O2 Sat by Pulse Oximetry 02/13/20 16:48 Temperature 98.8 F Pulse Rate 98 H Respiratory 18 Rate Blood Pressure 122/68 O2 Sat by Pulse 100 Oximetry - Lab 02/09/20 05:27 02/09/20 05:27 Most recent lab results ABG pH 7.497 pH Units (7.350-7.450) H 02/05/20 Unknown ABG pCO2 30.2 mm Hg 02/05/20 Unknown ABG pO2 111.6 mm Hg (80.0-90.0) H 02/05/20 Unknown ABG HCO3 22.9 mmol/L (20.0-26.0) 02/05/20 Unknown ABG O2 Saturation 98.3 % (95.0-99.0) 02/05/20 Unknown Calcium 8.6 mg/dL (8.4-10.2) 02/09/20 05:27 Magnesium 1.50 mg/dL (1.7-2.3) L 01/17/20 22:58 Medications & Allergies - Medications Allergies/Adverse Reactions: Allergies No Known Allergies Allergy (Verified 09/12/18 00:37) Home Medications: Home Medications Medication Instructions Recorded Confirmed Last Taken Type glipiZIDE-Metformin 5-500 mg 500 mg PO BID 01/17/20 01/17/20 Unknown History Active Medications: Generic Name Dose Route Start Last Admin Trade Name Freq PRN Reason Stop Dose Admin Acetaminophen 650 mg 01/17/20 23:06 02/12/20 22:17 Tylenol PO 650 mg Q4H PRN Administration Pain MILD(1-3)/Fever >100.5/COLLINS Al Hydrox/Mg Hydrox/Simethicone 15 ml 02/12/20 14:28 Alum-Mag Hydrox-Simeth [id number]/5ml PO Q4H PRN Indigestion Alprazolam 0.5 mg 02/13/20 00:31 02/13/20 00:56 Xanax PO 0.5 mg QHS PRN Administration Anxiety Lipase/Protease/Amylase 1 each 02/01/20 09:[address] 10,500 Unit FEEDTUBE PRN PRN For Clogged Feeding Tube Dextrose 0 ml 01/17/20 23:06 D50w (25gm) Syringe IV Q30MIN PRN Hypoglycemia Protocol Famotidine 20 mg 01/24/20 10:00 02/13/20 10:30 Pepcid PO 20 mg QDAY COBY Administration Heparin Sodium (Porcine) 5,000 unit 01/18/20 06:00 02/13/20 14:47 Heparin SUB-Q 5,000 unit Q8HR COBY Administration Hydralazine HCl 10 mg 01/18/20 22:14 02/12/20 07:50 Apresoline IV 10 mg Q6H PRN Administration Hypertension Hydrophilic Ointment 1 applic 01/31/20 21:48 02/12/20 16:32 Vaseline Lip Therapy TP 1 applic Q2HR PRN Administration Dry Lips Hydrophilic Ointment 1 applic 02/12/20 13:31 Vaseline Lip Therapy TP DIRECT PRN Dry Lips Sodium Chloride 100 mls @ 999 mls/hr 02/05/20 11:31 Nacl 0.9% IV KIRSTEN PRN Hypotension Insulin Human Regular 5 units 02/09/20 22:00 02/13/20 12:30 Humulin R SUB-Q Not Given ACHS [facility] Insulin Human Regular 0 units 02/09/20 22:00 02/13/20 12:31 Humulin R SUB-Q Not Given ACHS [facility] Protocol Magnesium Hydroxide 30 ml 01/17/20 23:06 Milk Of Magnesia PO Q4H PRN Constipation Morphine Sulfate 2 mg 01/17/20 23:06 02/13/20 02:29 Morphine IV 2 mg Q4H PRN Administration Pain, Moderate (4-6) Multi-Ingred Cream/Lotion/Oil/Oint 1 applic 01/31/20 21:48 Artificial Tears Ophth Oint OU Q4HR PRN Dry Eye(s) Nystatin 1 applic 01/29/20 14:00 02/13/20 10:31 Nystop TP 1 applic BID COBY Administration Ondansetron HCl 4 mg 02/12/20 14:29 02/12/20 16:31 Zofran IV 4 mg Q4H PRN Administration Nausea And Vomiting Simple Syrup 15 ml 02/01/20 09:53 Simple Syrup FEEDTUBE PRN PRN Hypoglycemia Simple Syrup 30 ml 02/01/20 09:53 Simple Syrup FEEDTUBE PRN PRN Hypoglycemia Sodium Bicarbonate 325 mg 02/01/20 09:53 Sodium Bicarbonate FEEDTUBE PRN PRN For Clogged Feeding Tube Sodium Chloride 10 ml 01/18/20 10:00 02/13/20 10:30 Sodium Chloride Flush Syringe 10 Ml IV 10 ml BID COBY Administration Sodium Chloride 10 ml 01/17/20 23:06 02/04/20 05:07 Sodium Chloride Flush Syringe 10 Ml IV 10 ml PRN PRN Administration LINE FLUSH
[2020-02-14 03:27] LABS: Calcium 8.3 mg/dL (8.4-10.2)
[2020-02-14] MEDS: HEPARIN 5,000 UNIT/1 ML VIAL SUB-Q SCH ×3 (05:14→23:00)
[2020-02-14] MEDS: INSULIN REGULAR, HUMAN 100 UNITS/1 ML SUB-Q SCH ×8 (07:30→23:03)
--- NOTE | 2020-02-14 08:46 | Progress Note ---
Assessment and Plan - Patient Problems (1) Acute kidney injury (CIPRIANO) with acute tubular necrosis (ATN) Current Visit: Yes Status: Acute Plan to address problem: Patient dialysis dependent. kidney indices stable. Arrange outpatient dialysis since no renal recovery yet. I spoke with casework specialist yesterday. Due to Covid status, Patient will need to go to [facility] [place] or [facility] if she is accepted. we will follow-up today. We will continue to reevaluate on a daily basis (2) Type 2 diabetes mellitus with hyperglycemia Current Visit: Yes Status: Acute Plan to address problem: Blood sugar control by primary attending (3) Pneumonia due to COVID-19 virus Current Visit: Yes Status: Acute Plan to address problem: patient has improved. (4) Abscess of left thigh Current Visit: Yes Status: Acute Plan to address problem: sepsis secondary to left thigh abscess. Status post drainage. Improved with antibiotics (5) Hypertension Current Visit: Yes Status: Acute Qualifiers: Qualified Code(s): I10 - Essential (primary) hypertension Plan to address problem: follow-up blood pressure on current medications Subjective Date of service: 02/14/20 Principal diagnosis: Severe Sepsis; LEV PNA; DM II; COVID-19 infection; CIPRIANO Interval history: Patient was not examined today due to PPE conservation with the Covid 19 pandemic. Chart reviewed PUI?: No COVID19: Positive Objective - Exam Narrative Exam: Patient not examined today due to PPE conservation - Vital Signs Vital signs: Vital Signs - 12hr 02/13/20 02/14/20 21:00 04:58 Temperature 98.7 F 98.5 F Pulse Rate 88 85 Respiratory 18 16 Rate Blood Pressure 122/80 151/75 O2 Sat by Pulse 100 98 Oximetry - Lab 02/09/20 05:27 02/14/20 03:00 Most recent lab results ABG pH 7.497 pH Units (7.350-7.450) H 02/05/20 Unknown ABG pCO2 30.2 mm Hg 02/05/20 Unknown ABG pO2 111.6 mm Hg (80.0-90.0) H 02/05/20 Unknown ABG HCO3 22.9 mmol/L (20.0-26.0) 02/05/20 Unknown ABG O2 Saturation 98.3 % (95.0-99.0) 02/05/20 Unknown Calcium 8.3 mg/dL (8.4-10.2) L 02/14/20 03:00 Magnesium 1.50 mg/dL (1.7-2.3) L 01/17/20 22:58 Medications & Allergies - Medications Allergies/Adverse Reactions: Allergies No Known Allergies Allergy (Verified 09/12/18 00:37) Home Medications: Home Medications Medication Instructions Recorded Confirmed Last Taken Type glipiZIDE-Metformin 5-500 mg 500 mg PO BID 01/17/20 01/17/20 Unknown History Active Medications: Generic Name Dose Route Start Last Admin Trade Name Freq PRN Reason Stop Dose Admin Acetaminophen 650 mg 01/17/20 23:06 02/12/20 22:17 Tylenol PO 650 mg Q4H PRN Administration Pain MILD(1-3)/Fever >100.5/COLLINS Al Hydrox/Mg Hydrox/Simethicone 15 ml 02/12/20 14:28 Alum-Mag Hydrox-Simeth [id number]/5ml PO Q4H PRN Indigestion Alprazolam 0.5 mg 02/13/20 00:31 02/13/20 00:56 Xanax PO 0.5 mg QHS PRN Administration Anxiety Lipase/Protease/Amylase 1 each 02/01/20 09:53 Pancreaze 10,500 Unit FEEDTUBE PRN PRN For Clogged Feeding Tube Dextrose 0 ml 01/17/20 23:06 D50w (25gm) Syringe IV Q30MIN PRN Hypoglycemia Protocol Famotidine 20 mg 01/24/20 10:00 02/13/20 10:30 Pepcid PO 20 mg QDAY COBY Administration Heparin Sodium (Porcine) 5,000 unit 01/18/20 06:00 02/14/20 05:14 Heparin SUB-Q 5,000 unit Q8HR COBY Administration Hydralazine HCl 10 mg 01/18/20 22:14 02/12/20 07:50 Apresoline IV 10 mg Q6H PRN Administration Hypertension Hydrophilic Ointment 1 applic 01/31/20 21:48 02/12/20 16:32 Vaseline Lip Therapy TP 1 applic Q2HR PRN Administration Dry Lips Hydrophilic Ointment 1 applic 02/12/20 13:31 Vaseline Lip Therapy TP DIRECT PRN Dry Lips Sodium Chloride 100 mls @ 999 mls/hr 02/05/20 11:31 Nacl 0.9% IV KIRSTEN PRN Hypotension Insulin Human Regular 5 units 02/09/20 22:00 02/13/20 21:35 Humulin R SUB-Q Not Given ACHS [facility] Insulin Human Regular 0 units 02/09/20 22:00 02/13/20 21:35 Humulin R SUB-Q Not Given ACHS [facility] Protocol Magnesium Hydroxide 30 ml 01/17/20 23:06 Milk Of Magnesia PO Q4H PRN Constipation Morphine Sulfate 2 mg 01/17/20 23:06 02/13/20 02:29 Morphine IV 2 mg Q4H PRN Administration Pain, Moderate (4-6) Multi-Ingred Cream/Lotion/Oil/Oint 1 applic 01/31/20 21:48 Artificial Tears Ophth Oint OU Q4HR PRN Dry Eye(s) Nystatin 1 applic 01/29/20 14:00 02/13/20 21:46 Nystop TP Not Given BID [facility] Ondansetron HCl 4 mg 02/12/20 14:29 02/12/20 16:31 Zofran IV 4 mg Q4H PRN Administration Nausea And Vomiting Simple Syrup 15 ml 02/01/20 09:53 Simple Syrup FEEDTUBE PRN PRN Hypoglycemia Simple Syrup 30 ml 02/01/20 09:53 Simple Syrup FEEDTUBE PRN PRN Hypoglycemia Sodium Bicarbonate 325 mg 02/01/20 09:53 Sodium Bicarbonate FEEDTUBE PRN PRN For Clogged Feeding Tube Sodium Chloride 10 ml 01/18/20 10:00 02/13/20 21:47 Sodium Chloride Flush Syringe 10 Ml IV 10 ml BID COBY Administration Sodium Chloride 10 ml 01/17/20 23:06 02/04/20 05:07 Sodium Chloride Flush Syringe 10 Ml IV 10 ml PRN PRN Administration LINE FLUSH
[2020-02-14] MEDS: MORPHINE 2 MG/1 ML INJ IV PRN (09:18)
[2020-02-14] MEDS: FAMOTIDINE 20 MG TAB PO SCH (09:21)
[2020-02-14] MEDS: NYSTATIN POWDER 15 GM TP SCH ×2 (09:21→23:01)
--- NOTE | 2020-02-14 10:02 | Progress Note ---
Assessment and Plan Acute Hypoxemic Respiratory failure Severe Sepsis COVID-19 infection Left upper lobe pneumonia Diabetes II Morbid obesity Febrile illness Diabetic foot ulcer Hyponatremia Lactic acidosis - continue to wean supplemental oxygen to keep O2 sats > 90% - COVID-19 precautions per [facility] protocol - continue contact, droplet and airborne precautions -Wound vac and wound care -Complete antibiotics per ID -Discharge planning -Aspiration precautions -Nutrtional support - Accuchecks with glycemic control, keep blood glucose < 180 mg/dL (Avoid hypoglycemia) - Avoid nephrotoxins, adjust and dose all medications fro GFR and CrCL - continue GI & VTE prophylaxis - continue wound care per RN / WCT, wound vac - prn analgesia per pain score - mobility protocols to prevent pressure ulcers - GI & VTE prophylaxis - Flu & pneumovax per protocol - continue other care per attending / other consultants CONDITION: FAIR PROGNOSIS: IMPROVED CODE STATUS: FULL CODE Subjective Date of service: 02/14/20 Principal diagnosis: Severe Sepsis; LEV PNA; DM II; COVID-19 infection; CIPRIANO Interval history: Patient is seen today for: Severe Sepsis with septic shock ; LEV pneumonia; Acute hypoxemic respiratory failures/p MVS; Diabetes II; Morbid obesity; Febrile illness; POSITIVE COVID-19 infection; Diabetic foot ulcer; Hyponatremia; Lactic acidosis Seen and examined at bedside; 24hour events reviewed; nursing and respiratory care staff consulted; no adverse overnight events reported to me; No new issues. No shortness of breath, no fevers, no diarrhea or vomiting PUI?: No COVID19: Positive Objective - Exam Narrative Exam: young Afro-[place] female lying in bedin no acute distress HEENT: Normocephalic atraumatic, pupils equal round reactive to light Normal oropharynx, Neck: Supple, no venous distention, no goiter CVS: S1S2 RRR no murmur, rub or gallop Lungs: Clear to auscultation, no use of accessory muscles of respiration Abdomen: Full, soft, nontender, no organomegaly no bruit, bowel sounds are present Extremities: No edema, dressing intact,no cyanosis or clubbing Urinary: Deferred Musculo-skeletal: No joint deformities or swelling Neuro: Awake, alert, no focal deficits Vital Signs - 12hr 02/14/20 02/14/20 04:58 09:18 Temperature 98.5 F Pulse Rate 85 Respiratory 16 20 Rate Blood Pressure 151/75 O2 Sat by Pulse 98 Oximetry Constitutional: alert, other (young obese AAF, normocephalic with normal resp ef fort at rest) Eyes: non-icteric ENT: oropharynx moist, other Neck: supple, no lymphadenopathy, no JVD Effort: normal Ascultation: Bilateral: diminished breath sounds, rales (scant in bases) Percussion: Bilateral: not dull Cardiovascular: regular rate and rhythm Gastrointestinal: normoactive bowel sounds, soft, non-tender, non-distended Integumentary: other (left thigh abscess; R. Foot wound) Extremities: no cyanosis, no edema, pulses normal, no ischemia or petechiae, other Neurologic: normal mental status, non-focal exam, pupils equal and round, CN II- XII normal Psychiatric: mood appropriate, affect normal CBC and BMP: 02/09/20 05:27 02/14/20 03:00 ABG, PT/INR, D-dimer: ABG ABG pH 7.497 pH Units (7.350-7.450) H 02/05/20 Unknown ABG pCO2 30.2 mm Hg 02/05/20 Unknown ABG pO2 111.6 mm Hg (80.0-90.0) H 02/05/20 Unknown ABG O2 Saturation 98.3 % (95.0-99.0) 02/05/20 Unknown PT/INR, D-dimer PT 15.6 Sec. (12.2-14.9) H 01/17/20 18:28 INR 1.22 (0.87-1.13) H 01/17/20 18:28 D-Dimer 1210.49 ng/mlDDU (0-234) H 02/08/20 04:57 Abnormal lab findings: Abnormal Labs 01/17/20 01/17/20 01/17/20 18:28 18:28 18:28 WBC RBC Hgb Hct MCV MCH 26 L RDW Lymph % (Auto) 9.3 L Wood % (Auto) Eos % (Auto) Lymph # 1.0 L Wood # Seg Neutrophils % 86.7 H Seg Neuts % (Manual) Lymphocytes % (Manual) Nucleated RBC % Seg Neutrophils # 9.6 H Seg Neutrophils # Man Lymphocytes # (Manual) PT 15.6 H INR 1.22 H D-Dimer ABG pH ABG pO2 ABG HCO3 ABG O2 Saturation ABG Base Excess ABG Hemoglobin Oxyhemoglobin Sodium 126 L Potassium Chloride 89.3 L Carbon Dioxide 19 L BUN Creatinine Glucose 397 H POC Glucose Hemoglobin A1c Lactic Acid Calcium Magnesium Ferritin AST ALT Alkaline Phosphatase Lactate Dehydrogenase C-Reactive Protein Total Protein 9.0 H Albumin Vancomycin Trough Random Vancomycin Miscellaneous Test 01/17/20 01/17/20 01/17/20 18:28 22:58 22:58 WBC RBC Hgb Hct MCV MCH RDW Lymph % (Auto) Wood % (Auto) Eos % (Auto) Lymph # Wood # Seg Neutrophils % Seg Neuts % (Manual) Lymphocytes % (Manual) Nucleated RBC % Seg Neutrophils # Seg Neutrophils # Man Lymphocytes # (Manual) PT INR D-Dimer ABG pH ABG pO2 ABG HCO3 ABG O2 Saturation ABG Base Excess ABG Hemoglobin Oxyhemoglobin Sodium Potassium Chloride Carbon Dioxide BUN Creatinine Glucose POC Glucose Hemoglobin A1c Lactic Acid 3.40 H* 2.30 H* Calcium Magnesium 1.50 L Ferritin AST ALT Alkaline Phosphatase Lactate Dehydrogenase C-Reactive Protein 16.60 H Total Protein Albumin Vancomycin Trough Random Vancomycin Miscellaneous Test 01/18/20 01/18/20 01/18/20 00:46 06:34 08:30 WBC RBC Hgb Hct MCV MCH 26 L RDW 12.7 L Lymph % (Auto) Wood % (Auto) Eos % (Auto) Lymph # Wood # Seg Neutrophils % 80.1 H Seg Neuts % (Manual) Lymphocytes % (Manual) Nucleated RBC % Seg Neutrophils # Seg Neutrophils # Man Lymphocytes # (Manual) PT INR D-Dimer ABG pH ABG pO2 ABG HCO3 ABG O2 Saturation ABG Base Excess ABG Hemoglobin Oxyhemoglobin Sodium Potassium Chloride Carbon Dioxide BUN Creatinine Glucose POC Glucose 338 H 266 H Hemoglobin A1c Lactic Acid Calcium Magnesium Ferritin AST ALT Alkaline Phosphatase Lactate Dehydrogenase C-Reactive Protein Total Protein Albumin Vancomycin Trough Random Vancomycin Miscellaneous Test 01/18/20 01/18/20 01/18/20 08:30 08:35 12:30 WBC RBC Hgb Hct MCV MCH RDW Lymph % (Auto) Wood % (Auto) Eos % (Auto) Lymph # Wood # Seg Neutrophils % Seg Neuts % (Manual) Lymphocytes % (Manual) Nucleated RBC % Seg Neutrophils # Seg Neutrophils # Man Lymphocytes # (Manual) PT INR D-Dimer ABG pH ABG pO2 ABG HCO3 ABG O2 Saturation ABG Base Excess ABG Hemoglobin Oxyhemoglobin Sodium 135 L D Potassium Chloride Carbon Dioxide BUN Creatinine Glucose 250 H POC Glucose 224 H 213 H Hemoglobin A1c Lactic Acid Calcium Magnesium Ferritin AST ALT Alkaline Phosphatase Lactate Dehydrogenase C-Reactive Protein Total Protein Albumin Vancomycin Trough Random Vancomycin Miscellaneous Test 01/18/20 01/18/20 01/18/20 12:47 16:56 22:03 WBC RBC Hgb Hct MCV MCH RDW Lymph % (Auto) Wood % (Auto) Eos % (Auto) Lymph # Wood # Seg Neutrophils % Seg Neuts % (Manual) Lymphocytes % (Manual) Nucleated RBC % Seg Neutrophils # Seg Neutrophils # Man Lymphocytes # (Manual) PT INR D-Dimer ABG pH ABG pO2 ABG HCO3 ABG O2 Saturation ABG Base Excess ABG Hemoglobin Oxyhemoglobin Sodium Potassium Chloride Carbon Dioxide BUN Creatinine Glucose POC Glucose 270 H 239 H Hemoglobin A1c 11.6 H Lactic Acid Calcium Magnesium Ferritin AST ALT Alkaline Phosphatase Lactate Dehydrogenase C-Reactive Protein Total Protein Albumin Vancomycin Trough Random Vancomycin Miscellaneous Test 01/19/20 01/19/20 01/19/20 06:15 11:48 13:09 WBC RBC Hgb Hct MCV MCH 26 L RDW Lymph % (Auto) Wood % (Auto) Eos % (Auto) Lymph # Wood # Seg Neutrophils % Seg Neuts % (Manual) Lymphocytes % (Manual) Nucleated RBC % Seg Neutrophils # Seg Neutrophils # Man Lymphocytes # (Manual) PT INR D-Dimer ABG pH ABG pO2 ABG HCO3 ABG O2 Saturation ABG Base Excess ABG Hemoglobin Oxyhemoglobin Sodium Potassium Chloride Carbon Dioxide BUN Creatinine Glucose POC Glucose 248 H 268 H Hemoglobin A1c Lactic Acid Calcium Magnesium Ferritin AST ALT Alkaline Phosphatase Lactate Dehydrogenase C-Reactive Protein Total Protein Albumin Vancomycin Trough Random Vancomycin Miscellaneous Test 01/19/20 01/19/20 01/20/20 17:44 21:09 09:03 WBC RBC Hgb Hct MCV MCH RDW Lymph % (Auto) Wood % (Auto) Eos % (Auto) Lymph # Wood # Seg Neutrophils % Seg Neuts % (Manual) Lymphocytes % (Manual) Nucleated RBC % Seg Neutrophils # Seg Neutrophils # Man Lymphocytes # (Manual) PT INR D-Dimer ABG pH ABG pO2 ABG HCO3 ABG O2 Saturation ABG Base Excess ABG Hemoglobin Oxyhemoglobin Sodium Potassium Chloride Carbon Dioxide BUN Creatinine Glucose POC Glucose 214 H 261 H 241 H Hemoglobin A1c Lactic Acid Calcium Magnesium Ferritin AST ALT Alkaline Phosphatase Lactate Dehydrogenase C-Reactive Protein Total Protein Albumin Vancomycin Trough Random Vancomycin Miscellaneous Test 01/20/20 01/20/20 01/20/20 12:10 17:00 19:43 WBC RBC Hgb Hct MCV MCH RDW Lymph % (Auto) Wood % (Auto) Eos % (Auto) Lymph # Wood # Seg Neutrophils % Seg Neuts % (Manual) Lymphocytes % (Manual) Nucleated RBC % Seg Neutrophils # Seg Neutrophils # Man Lymphocytes # (Manual) PT INR D-Dimer ABG pH ABG pO2 ABG HCO3 ABG O2 Saturation ABG Base Excess ABG Hemoglobin Oxyhemoglobin Sodium Potassium Chloride Carbon Dioxide BUN Creatinine Glucose POC Glucose 284 H 272 H Hemoglobin A1c Lactic Acid Calcium Magnesium Ferritin AST ALT Alkaline Phosphatase Lactate Dehydrogenase C-Reactive Protein Total Protein Albumin Vancomycin Trough 4.0 L Random Vancomycin Miscellaneous Test 01/20/20 01/21/20 01/21/20 22:39 09:29 11:41 WBC RBC Hgb Hct MCV MCH 26 L RDW Lymph % (Auto) Wood % (Auto) Eos % (Auto) Lymph # Wood # Seg Neutrophils % Seg Neuts % (Manual) Lymphocytes % (Manual) Nucleated RBC % Seg Neutrophils # Seg Neutrophils # Man Lymphocytes # (Manual) PT INR D-Dimer ABG pH ABG pO2 ABG HCO3 ABG O2 Saturation ABG Base Excess ABG Hemoglobin Oxyhemoglobin Sodium Potassium Chloride Carbon Dioxide BUN Creatinine Glucose POC Glucose 248 H 238 H Hemoglobin A1c Lactic Acid Calcium Magnesium Ferritin AST ALT Alkaline Phosphatase Lactate Dehydrogenase C-Reactive Protein Total Protein Albumin Vancomycin Trough Random Vancomycin Miscellaneous Test 01/21/20 01/21/20 01/21/20 11:41 12:27 16:55 WBC RBC Hgb Hct MCV MCH RDW Lymph % (Auto) Wood % (Auto) Eos % (Auto) Lymph # Wood # Seg Neutrophils % Seg Neuts % (Manual) Lymphocytes % (Manual) Nucleated RBC % Seg Neutrophils # Seg Neutrophils # Man Lymphocytes # (Manual) PT INR D-Dimer ABG pH ABG pO2 ABG HCO3 ABG O2 Saturation ABG Base Excess ABG Hemoglobin Oxyhemoglobin Sodium 132 L Potassium 3.5 L Chloride 97.0 L Carbon Dioxide 19 L BUN Creatinine Glucose 274 H POC Glucose 264 H 261 H Hemoglobin A1c Lactic Acid Calcium Magnesium Ferritin AST ALT Alkaline Phosphatase Lactate Dehydrogenase C-Reactive Protein Total Protein Albumin Vancomycin Trough Random Vancomycin Miscellaneous Test 01/21/20 01/22/20 01/22/20 22:39 09:05 12:57 WBC RBC Hgb Hct MCV MCH RDW Lymph % (Auto) Wood % (Auto) Eos % (Auto) Lymph # Wood # Seg Neutrophils % Seg Neuts % (Manual) Lymphocytes % (Manual) Nucleated RBC % Seg Neutrophils # Seg Neutrophils # Man Lymphocytes # (Manual) PT INR D-Dimer ABG pH ABG pO2 ABG HCO3 ABG O2 Saturation ABG Base Excess ABG Hemoglobin Oxyhemoglobin Sodium Potassium Chloride Carbon Dioxide BUN Creatinine Glucose POC Glucose 243 H 258 H 252 H Hemoglobin A1c Lactic Acid Calcium Magnesium Ferritin AST ALT Alkaline Phosphatase Lactate Dehydrogenase C-Reactive Protein Total Protein Albumin Vancomycin Trough Random Vancomycin Miscellaneous Test 01/22/20 01/22/20 01/23/20 17:14 21:30 09:03 WBC RBC Hgb Hct MCV MCH RDW Lymph % (Auto) Wood % (Auto) Eos % (Auto) Lymph # [place] # Seg Neutrophils % Seg Neuts % (Manual) Lymphocytes % (Manual) Nucleated RBC % Seg Neutrophils # Seg Neutrophils # Man Lymphocytes # (Manual) PT INR D-Dimer ABG pH ABG pO2 ABG HCO3 ABG O2 Saturation ABG Base Excess ABG Hemoglobin Oxyhemoglobin Sodium Potassium Chloride Carbon Dioxide BUN Creatinine Glucose POC Glucose 306 H 217 H 156 H Hemoglobin A1c Lactic Acid Calcium Magnesium Ferritin AST ALT Alkaline Phosphatase Lactate Dehydrogenase C-Reactive Protein Total Protein Albumin Vancomycin Trough Random Vancomycin Miscellaneous Test 01/23/20 01/23/20 01/23/20 10:36 11:12 17:11 WBC RBC Hgb Hct MCV MCH RDW Lymph % (Auto) Wood % (Auto) Eos % (Auto) Lymph # [place] # Seg Neutrophils % Seg Neuts % (Manual) Lymphocytes % (Manual) Nucleated RBC % Seg Neutrophils # Seg Neutrophils # Man Lymphocytes # (Manual) PT INR D-Dimer ABG pH ABG pO2 ABG HCO3 ABG O2 Saturation ABG Base Excess ABG Hemoglobin Oxyhemoglobin Sodium Potassium 3.0 L Chloride Carbon Dioxide 21 L BUN Creatinine Glucose 266 H POC Glucose 244 H 238 H Hemoglobin A1c Lactic Acid Calcium 8.3 L Magnesium Ferritin AST ALT Alkaline Phosphatase Lactate Dehydrogenase C-Reactive Protein Total Protein Albumin Vancomycin Trough Random Vancomycin Miscellaneous Test 01/23/20 01/24/20 01/24/20 22:57 06:03 12:12 WBC RBC Hgb Hct MCV MCH RDW Lymph % (Auto) Wood % (Auto) Eos % (Auto) Lymph # Wood # Seg Neutrophils % Seg Neuts % (Manual) Lymphocytes % (Manual) Nucleated RBC % Seg Neutrophils # Seg Neutrophils # Man Lymphocytes # (Manual) PT INR D-Dimer ABG pH ABG pO2 ABG HCO3 ABG O2 Saturation ABG Base Excess ABG Hemoglobin Oxyhemoglobin Sodium Potassium 3.2 L Chloride Carbon Dioxide 19 L BUN Creatinine Glucose 231 H POC Glucose 228 H 210 H Hemoglobin A1c Lactic Acid Calcium 8.2 L Magnesium Ferritin AST ALT Alkaline Phosphatase Lactate Dehydrogenase C-Reactive Protein Total Protein Albumin Vancomycin Trough Random Vancomycin Miscellaneous Test 01/24/20 01/24/20 01/24/20 12:50 19:01 21:49 WBC RBC Hgb Hct MCV MCH RDW Lymph % (Auto) Wood % (Auto) Eos % (Auto) Lymph # Wood # Seg Neutrophils % Seg Neuts % (Manual) Lymphocytes % (Manual) Nucleated RBC % Seg Neutrophils # Seg Neutrophils # Man Lymphocytes # (Manual) PT INR D-Dimer ABG pH 7.485 H ABG pO2 63.4 L ABG HCO3 ABG O2 Saturation ABG Base Excess ABG Hemoglobin 5.0 L Oxyhemoglobin Sodium Potassium Chloride Carbon Dioxide BUN Creatinine Glucose POC Glucose 183 H 193 H Hemoglobin A1c Lactic Acid Calcium Magnesium Ferritin AST ALT Alkaline Phosphatase Lactate Dehydrogenase C-Reactive Protein Total Protein Albumin Vancomycin Trough Random Vancomycin Miscellaneous Test 01/25/20 01/25/20 01/25/20 09:13 16:58 22:23 WBC RBC Hgb Hct MCV MCH RDW Lymph % (Auto) Wood % (Auto) Eos % (Auto) Lymph # [place] # Seg Neutrophils % Seg Neuts % (Manual) Lymphocytes % (Manual) Nucleated RBC % Seg Neutrophils # Seg Neutrophils # Man Lymphocytes # (Manual) PT INR D-Dimer ABG pH ABG pO2 ABG HCO3 ABG O2 Saturation ABG Base Excess ABG Hemoglobin Oxyhemoglobin Sodium Potassium Chloride Carbon Dioxide BUN Creatinine Glucose POC Glucose 196 H 231 H 159 H Hemoglobin A1c Lactic Acid Calcium Magnesium Ferritin AST ALT Alkaline Phosphatase Lactate Dehydrogenase C-Reactive Protein Total Protein Albumin Vancomycin Trough Random Vancomycin Miscellaneous Test 01/26/20 01/26/20 01/26/20 05:40 05:40 05:40 WBC 16.4 H RBC Hgb Hct MCV MCH 26 L RDW 12.9 L Lymph % (Auto) Wood % (Auto) Eos % (Auto) Lymph # Wood # Seg Neutrophils % Seg Neuts % (Manual) 90.0 H Lymphocytes % (Manual) 1.0 L Nucleated RBC % 1.0 H Seg Neutrophils # Seg Neutrophils # Man 14.8 H Lymphocytes # (Manual) 0.2 L PT INR D-Dimer 2624.11 H ABG pH ABG pO2 ABG HCO3 ABG O2 Saturation ABG Base Excess ABG Hemoglobin Oxyhemoglobin Sodium 135 L Potassium 2.7 L* Chloride Carbon Dioxide 21 L BUN Creatinine Glucose 132 H POC Glucose Hemoglobin A1c Lactic Acid Calcium 8.0 L Magnesium Ferritin AST ALT Alkaline Phosphatase Lactate Dehydrogenase C-Reactive Protein Total Protein Albumin Vancomycin Trough Random Vancomycin Miscellaneous Test 01/26/20 01/26/20 01/26/20 05:40 05:40 08:58 WBC RBC Hgb Hct MCV MCH RDW Lymph % (Auto) Wood % (Auto) Eos % (Auto) Lymph # [place] # Seg Neutrophils % Seg Neuts % (Manual) Lymphocytes % (Manual) Nucleated RBC % Seg Neutrophils # Seg Neutrophils # Man Lymphocytes # (Manual) PT INR D-Dimer ABG pH ABG pO2 ABG HCO3 ABG O2 Saturation ABG Base Excess ABG Hemoglobin Oxyhemoglobin Sodium Potassium Chloride Carbon Dioxide BUN Creatinine Glucose POC Glucose 131 H Hemoglobin A1c Lactic Acid Calcium Magnesium Ferritin 2758.0 H AST ALT Alkaline Phosphatase Lactate Dehydrogenase C-Reactive Protein 26.90 H Total Protein Albumin Vancomycin Trough Random Vancomycin Miscellaneous Test 01/26/20 01/26/20 01/26/20 13:00 16:30 21:22 WBC RBC Hgb Hct MCV MCH RDW Lymph % (Auto) Wood % (Auto) Eos % (Auto) Lymph # [place] # Seg Neutrophils % Seg Neuts % (Manual) Lymphocytes % (Manual) Nucleated RBC % Seg Neutrophils # Seg Neutrophils # Man Lymphocytes # (Manual) PT INR D-Dimer ABG pH ABG pO2 ABG HCO3 ABG O2 Saturation ABG Base Excess ABG Hemoglobin Oxyhemoglobin Sodium Potassium Chloride Carbon Dioxide BUN Creatinine Glucose POC Glucose 136 H 146 H 139 H Hemoglobin A1c Lactic Acid Calcium Magnesium Ferritin AST ALT Alkaline Phosphatase Lactate Dehydrogenase C-Reactive Protein Total Protein Albumin Vancomycin Trough Random Vancomycin Miscellaneous Test 01/27/20 01/27/20 01/27/20 05:14 07:37 12:05 WBC RBC Hgb Hct MCV MCH RDW Lymph % (Auto) Wood % (Auto) Eos % (Auto) Lymph # [place] # Seg Neutrophils % Seg Neuts % (Manual) Lymphocytes % (Manual) Nucleated RBC % Seg Neutrophils # Seg Neutrophils # Man Lymphocytes # (Manual) PT INR D-Dimer ABG pH ABG pO2 ABG HCO3 ABG O2 Saturation ABG Base Excess ABG Hemoglobin Oxyhemoglobin Sodium 135 L Potassium 3.4 L D Chloride Carbon Dioxide 17 L BUN 24 H Creatinine 1.4 H D Glucose 143 H POC Glucose 133 H 141 H Hemoglobin A1c Lactic Acid Calcium 7.6 L Magnesium Ferritin AST ALT Alkaline Phosphatase Lactate Dehydrogenase C-Reactive Protein Total Protein Albumin Vancomycin Trough Random Vancomycin Miscellaneous Test 01/27/20 01/27/20 01/27/20 17:37 22:14 23:53 WBC RBC Hgb Hct MCV MCH RDW Lymph % (Auto) Wood % (Auto) Eos % (Auto) Lymph # Wood # Seg Neutrophils % Seg Neuts % (Manual) Lymphocytes % (Manual) Nucleated RBC % Seg Neutrophils # Seg Neutrophils # Man Lymphocytes # (Manual) PT INR D-Dimer 2675.43 H ABG pH ABG pO2 ABG HCO3 ABG O2 Saturation ABG Base Excess ABG Hemoglobin Oxyhemoglobin Sodium Potassium Chloride Carbon Dioxide BUN Creatinine Glucose POC Glucose 153 H 124 H Hemoglobin A1c Lactic Acid Calcium Magnesium Ferritin AST ALT Alkaline Phosphatase Lactate Dehydrogenase C-Reactive Protein Total Protein Albumin Vancomycin Trough Random Vancomycin Miscellaneous Test 01/27/20 01/27/20 01/28/20 23:53 23:53 08:36 WBC RBC Hgb Hct MCV MCH RDW Lymph % (Auto) Wood % (Auto) Eos % (Auto) Lymph # Wood # Seg Neutrophils % Seg Neuts % (Manual) Lymphocytes % (Manual) Nucleated RBC % Seg Neutrophils # Seg Neutrophils # Man Lymphocytes # (Manual) PT INR D-Dimer ABG pH ABG pO2 ABG HCO3 ABG O2 Saturation ABG Base Excess ABG Hemoglobin Oxyhemoglobin Sodium Potassium Chloride Carbon Dioxide BUN Creatinine Glucose POC Glucose 165 H Hemoglobin A1c Lactic Acid Calcium Magnesium Ferritin 3523.0 H AST ALT Alkaline Phosphatase Lactate Dehydrogenase 1132 H C-Reactive Protein 15.60 H Total Protein Albumin Vancomycin Trough Random Vancomycin Miscellaneous Test 01/28/20 01/28/20 01/28/20 10:00 10:00 10:00 WBC RBC Hgb Hct MCV MCH RDW Lymph % (Auto) Wood % (Auto) Eos % (Auto) Lymph # Wood # Seg Neutrophils % Seg Neuts % (Manual) Lymphocytes % (Manual) Nucleated RBC % Seg Neutrophils # Seg Neutrophils # Man Lymphocytes # (Manual) PT INR D-Dimer ABG pH ABG pO2 ABG HCO3 ABG O2 Saturation ABG Base Excess ABG Hemoglobin Oxyhemoglobin Sodium 131 L Potassium 3.5 L Chloride Carbon Dioxide 16 L BUN 51 H Creatinine 3.5 H D Glucose 180 H POC Glucose Hemoglobin A1c Lactic Acid Calcium 7.5 L Magnesium Ferritin AST ALT Alkaline Phosphatase Lactate Dehydrogenase C-Reactive Protein Total Protein Albumin Vancomycin Trough Random Vancomycin 65.8 H Miscellaneous Test Flexitest 1 H 01/28/20 01/28/20 01/28/20 12:42 17:27 22:06 WBC RBC Hgb Hct MCV MCH RDW Lymph % (Auto) Wood % (Auto) Eos % (Auto) Lymph # Wood # Seg Neutrophils % Seg Neuts % (Manual) Lymphocytes % (Manual) Nucleated RBC % Seg Neutrophils # Seg Neutrophils # Man Lymphocytes # (Manual) PT INR D-Dimer ABG pH ABG pO2 ABG HCO3 ABG O2 Saturation ABG Base Excess ABG Hemoglobin Oxyhemoglobin Sodium Potassium Chloride Carbon Dioxide BUN Creatinine Glucose POC Glucose 188 H 161 H 158 H Hemoglobin A1c Lactic Acid Calcium Magnesium Ferritin AST ALT Alkaline Phosphatase Lactate Dehydrogenase C-Reactive Protein Total Protein Albumin Vancomycin Trough Random Vancomycin Miscellaneous Test 01/29/20 01/29/20 01/29/20 07:29 07:29 08:20 WBC 17.0 H RBC Hgb 9.6 L Hct 29.5 L MCV MCH 26 L RDW Lymph % (Auto) Wood % (Auto) Eos % (Auto) Lymph # Wood # Seg Neutrophils % Seg Neuts % (Manual) Lymphocytes % (Manual) Nucleated RBC % Seg Neutrophils # Seg Neutrophils # Man Lymphocytes # (Manual) PT INR D-Dimer ABG pH ABG pO2 ABG HCO3 ABG O2 Saturation ABG Base Excess ABG Hemoglobin Oxyhemoglobin Sodium 133 L Potassium Chloride Carbon Dioxide 15 L BUN 69 H Creatinine 4.1 H Glucose 161 H POC Glucose 170 H Hemoglobin A1c Lactic Acid Calcium 7.6 L Magnesium Ferritin AST ALT Alkaline Phosphatase Lactate Dehydrogenase C-Reactive Protein Total Protein Albumin Vancomycin Trough Random Vancomycin Miscellaneous Test 01/29/20 01/29/20 01/29/20 11:54 11:54 11:54 WBC RBC Hgb Hct MCV MCH RDW Lymph % (Auto) Wood % (Auto) Eos % (Auto) Lymph # Wood # Seg Neutrophils % Seg Neuts % (Manual) Lymphocytes % (Manual) Nucleated RBC % Seg Neutrophils # Seg Neutrophils # Man Lymphocytes # (Manual) PT INR D-Dimer 1499 H ABG pH ABG pO2 ABG HCO3 ABG O2 Saturation ABG Base Excess ABG Hemoglobin Oxyhemoglobin Sodium Potassium Chloride Carbon Dioxide BUN Creatinine Glucose POC Glucose Hemoglobin A1c Lactic Acid Calcium Magnesium Ferritin > 2000.0 H AST ALT Alkaline Phosphatase Lactate Dehydrogenase 946 H C-Reactive Protein 13.30 H Total Protein Albumin Vancomycin Trough Random Vancomycin Miscellaneous Test 01/29/20 01/29/20 01/29/20 12:55 16:19 22:13 WBC RBC Hgb Hct MCV MCH RDW Lymph % (Auto) Wood % (Auto) Eos % (Auto) Lymph # Wood # Seg Neutrophils % Seg Neuts % (Manual) Lymphocytes % (Manual) Nucleated RBC % Seg Neutrophils # Seg Neutrophils # Man Lymphocytes # (Manual) PT INR D-Dimer ABG pH ABG pO2 ABG HCO3 ABG O2 Saturation ABG Base Excess ABG Hemoglobin Oxyhemoglobin Sodium Potassium Chloride Carbon Dioxide BUN Creatinine Glucose POC Glucose 142 H 146 H 142 H Hemoglobin A1c Lactic Acid Calcium Magnesium Ferritin AST ALT Alkaline Phosphatase Lactate Dehydrogenase C-Reactive Protein Total Protein Albumin Vancomycin Trough Random Vancomycin Miscellaneous Test 01/30/20 01/30/20 01/30/20 05:19 05:19 08:04 WBC RBC Hgb Hct MCV MCH RDW Lymph % (Auto) Wood % (Auto) Eos % (Auto) Lymph # Wood # Seg Neutrophils % Seg Neuts % (Manual) Lymphocytes % (Manual) Nucleated RBC % Seg Neutrophils # Seg Neutrophils # Man Lymphocytes # (Manual) PT INR D-Dimer ABG pH ABG pO2 ABG HCO3 ABG O2 Saturation ABG Base Excess ABG Hemoglobin Oxyhemoglobin Sodium 134 L Potassium Chloride Carbon Dioxide 14 L BUN 87 H Creatinine 4.4 H Glucose 172 H POC Glucose 153 H Hemoglobin A1c Lactic Acid Calcium 7.6 L Magnesium Ferritin AST 152 H ALT 124 H Alkaline Phosphatase Lactate Dehydrogenase C-Reactive Protein Total Protein 5.5 L Albumin 1.8 L Vancomycin Trough 45.4 H Random Vancomycin Miscellaneous Test 01/30/20 01/30/20 01/30/20 12:21 16:51 22:54 WBC RBC Hgb Hct MCV MCH RDW Lymph % (Auto) Wood % (Auto) Eos % (Auto) Lymph # Wood # Seg Neutrophils % Seg Neuts % (Manual) Lymphocytes % (Manual) Nucleated RBC % Seg Neutrophils # Seg Neutrophils # Man Lymphocytes # (Manual) PT INR D-Dimer ABG pH ABG pO2 ABG HCO3 ABG O2 Saturation ABG Base Excess ABG Hemoglobin Oxyhemoglobin Sodium Potassium Chloride Carbon Dioxide BUN Creatinine Glucose POC Glucose 147 H 119 H 129 H Hemoglobin A1c Lactic Acid Calcium Magnesium Ferritin AST ALT Alkaline Phosphatase Lactate Dehydrogenase C-Reactive Protein Total Protein Albumin Vancomycin Trough Random Vancomycin Miscellaneous Test 01/31/20 01/31/20 01/31/20 03:49 03:49 03:49 WBC RBC Hgb Hct MCV MCH RDW Lymph % (Auto) Wood % (Auto) Eos % (Auto) Lymph # Wood # Seg Neutrophils % Seg Neuts % (Manual) Lymphocytes % (Manual) Nucleated RBC % Seg Neutrophils # Seg Neutrophils # Man Lymphocytes # (Manual) PT INR D-Dimer 801.37 H ABG pH ABG pO2 ABG HCO3 ABG O2 Saturation ABG Base Excess ABG Hemoglobin Oxyhemoglobin Sodium 134 L Potassium Chloride Carbon Dioxide 13 L BUN 97 H Creatinine 4.8 H Glucose 123 H POC Glucose Hemoglobin A1c Lactic Acid Calcium 7.6 L Magnesium Ferritin 3101.0 H AST 112 H ALT 112 H Alkaline Phosphatase 145 H Lactate Dehydrogenase 896 H C-Reactive Protein 11.10 H Total Protein 5.5 L Albumin 1.7 L Vancomycin Trough Random Vancomycin Miscellaneous Test 01/31/20 01/31/20 01/31/20 03:49 08:00 11:48 WBC 16.1 H RBC Hgb Hct MCV MCH 25 L RDW Lymph % (Auto) Wood % (Auto) Eos % (Auto) Lymph # Wood # Seg Neutrophils % Seg Neuts % (Manual) Lymphocytes % (Manual) Nucleated RBC % Seg Neutrophils # Seg Neutrophils # Man Lymphocytes # (Manual) PT INR D-Dimer ABG pH ABG pO2 ABG HCO3 ABG O2 Saturation ABG Base Excess ABG Hemoglobin Oxyhemoglobin Sodium Potassium Chloride Carbon Dioxide BUN Creatinine Glucose POC Glucose 133 H 136 H Hemoglobin A1c Lactic Acid Calcium Magnesium Ferritin AST ALT Alkaline Phosphatase Lactate Dehydrogenase C-Reactive Protein Total Protein Albumin Vancomycin Trough Random Vancomycin Miscellaneous Test 01/31/20 01/31/20 01/31/20 16:14 21:37 22:35 WBC RBC Hgb Hct MCV MCH RDW Lymph % (Auto) Wood % (Auto) Eos % (Auto) Lymph # Wood # Seg Neutrophils % Seg Neuts % (Manual) Lymphocytes % (Manual) Nucleated RBC % Seg Neutrophils # Seg Neutrophils # Man Lymphocytes # (Manual) PT INR D-Dimer ABG pH 7.226 L ABG pO2 77.9 L ABG HCO3 15.2 L ABG O2 Saturation 93.5 L ABG Base Excess -11.6 L ABG Hemoglobin Oxyhemoglobin 91.5 L Sodium Potassium Chloride Carbon Dioxide BUN Creatinine Glucose POC Glucose 151 H 179 H Hemoglobin A1c Lactic Acid Calcium Magnesium Ferritin AST ALT Alkaline Phosphatase Lactate Dehydrogenase C-Reactive Protein Total Protein Albumin Vancomycin Trough Random Vancomycin Miscellaneous Test 02/01/20 02/01/20 02/01/20 03:49 03:49 04:30 WBC 19.3 H RBC 3.53 L Hgb 9.0 L Hct 28.1 L MCV MCH 26 L RDW Lymph % (Auto) Wood % (Auto) Eos % (Auto) Lymph # Wood # Seg Neutrophils % Seg Neuts % (Manual) Lymphocytes % (Manual) Nucleated RBC % Seg Neutrophils # Seg Neutrophils # Man Lymphocytes # (Manual) PT INR D-Dimer ABG pH 7.290 L ABG pO2 120.0 H ABG HCO3 14.2 L ABG O2 Saturation ABG Base Excess -11.2 L ABG Hemoglobin 9.3 L Oxyhemoglobin Sodium 135 L Potassium Chloride Carbon Dioxide 13 L BUN 79 H Creatinine 4.1 H Glucose 198 H POC Glucose Hemoglobin A1c Lactic Acid Calcium 7.0 L Magnesium Ferritin AST ALT Alkaline Phosphatase Lactate Dehydrogenase C-Reactive Protein Total Protein Albumin Vancomycin Trough Random Vancomycin Miscellaneous Test 02/01/20 02/01/20 02/02/20 08:13 11:29 00:05 WBC RBC Hgb Hct MCV MCH RDW Lymph % (Auto) Wood % (Auto) Eos % (Auto) Lymph # Wood # Seg Neutrophils % Seg Neuts % (Manual) Lymphocytes % (Manual) Nucleated RBC % Seg Neutrophils # Seg Neutrophils # Man Lymphocytes # (Manual) PT INR D-Dimer ABG pH ABG pO2 ABG HCO3 ABG O2 Saturation ABG Base Excess ABG Hemoglobin Oxyhemoglobin Sodium Potassium Chloride Carbon Dioxide BUN Creatinine Glucose POC Glucose 153 H 181 H 214 H Hemoglobin A1c Lactic Acid Calcium Magnesium Ferritin AST ALT Alkaline Phosphatase Lactate Dehydrogenase C-Reactive Protein Total Protein Albumin Vancomycin Trough Random Vancomycin Miscellaneous Test 02/02/20 02/02/20 02/02/20 04:17 04:30 04:30 WBC RBC Hgb Hct MCV MCH RDW Lymph % (Auto) Wood % (Auto) Eos % (Auto) Lymph # Wood # Seg Neutrophils % Seg Neuts % (Manual) Lymphocytes % (Manual) Nucleated RBC % Seg Neutrophils # Seg Neutrophils # Man Lymphocytes # (Manual) PT INR D-Dimer 795.93 H ABG pH ABG pO2 ABG HCO3 ABG O2 Saturation ABG Base Excess -3.0 L ABG Hemoglobin 8.5 L Oxyhemoglobin Sodium Potassium Chloride Carbon Dioxide BUN Creatinine Glucose POC Glucose Hemoglobin A1c Lactic Acid Calcium Magnesium Ferritin 1978.0 H AST ALT Alkaline Phosphatase Lactate Dehydrogenase C-Reactive Protein Total Protein Albumin Vancomycin Trough Random Vancomycin Miscellaneous Test 02/02/20 02/02/20 02/02/20 04:30 04:30 05:34 WBC 17.3 H RBC 3.24 L Hgb 8.4 L Hct 24.9 L MCV 77 L MCH 26 L RDW Lymph % (Auto) Wood % (Auto) Eos % (Auto) Lymph # Wood # Seg Neutrophils % Seg Neuts % (Manual) Lymphocytes % (Manual) Nucleated RBC % Seg Neutrophils # Seg Neutrophils # Man Lymphocytes # (Manual) PT INR D-Dimer ABG pH ABG pO2 ABG HCO3 ABG O2 Saturation ABG Base Excess ABG Hemoglobin Oxyhemoglobin Sodium Potassium Chloride Carbon Dioxide 17 L BUN 61 H Creatinine 4.1 H Glucose 244 H POC Glucose 274 H Hemoglobin A1c Lactic Acid Calcium 7.2 L Magnesium Ferritin AST ALT Alkaline Phosphatase Lactate Dehydrogenase 841 H C-Reactive Protein 11.50 H Total Protein Albumin Vancomycin Trough Random Vancomycin Miscellaneous Test 02/02/20 02/02/20 02/02/20 12:26 18:06 23:37 WBC RBC Hgb Hct MCV MCH RDW Lymph % (Auto) Wood % (Auto) Eos % (Auto) Lymph # [place] # Seg Neutrophils % Seg Neuts % (Manual) Lymphocytes % (Manual) Nucleated RBC % Seg Neutrophils # Seg Neutrophils # Man Lymphocytes # (Manual) PT INR D-Dimer ABG pH ABG pO2 ABG HCO3 ABG O2 Saturation ABG Base Excess ABG Hemoglobin Oxyhemoglobin Sodium Potassium Chloride Carbon Dioxide BUN Creatinine Glucose POC Glucose 254 H 285 H 239 H Hemoglobin A1c Lactic Acid Calcium Magnesium Ferritin AST ALT Alkaline Phosphatase Lactate Dehydrogenase C-Reactive Protein Total Protein Albumin Vancomycin Trough Random Vancomycin Miscellaneous Test 02/03/20 02/03/20 02/03/20 04:40 04:56 10:41 WBC RBC Hgb Hct MCV MCH RDW Lymph % (Auto) Wood % (Auto) Eos % (Auto) Lymph # [place] # Seg Neutrophils % Seg Neuts % (Manual) Lymphocytes % (Manual) Nucleated RBC % Seg Neutrophils # Seg Neutrophils # Man Lymphocytes # (Manual) PT INR D-Dimer ABG pH 7.520 H ABG pO2 73.8 L 92.5 H ABG HCO3 ABG O2 Saturation ABG Base Excess ABG Hemoglobin 8.6 L 7.9 L Oxyhemoglobin Sodium Potassium Chloride Carbon Dioxide BUN Creatinine Glucose POC Glucose 227 H Hemoglobin A1c Lactic Acid Calcium Magnesium Ferritin AST ALT Alkaline Phosphatase Lactate Dehydrogenase C-Reactive Protein Total Protein Albumin Vancomycin Trough Random Vancomycin Miscellaneous Test 02/03/20 02/03/20 02/03/20 12:09 17:23 23:41 WBC RBC Hgb Hct MCV MCH RDW Lymph % (Auto) Wood % (Auto) Eos % (Auto) Lymph # [place] # Seg Neutrophils % Seg Neuts % (Manual) Lymphocytes % (Manual) Nucleated RBC % Seg Neutrophils # Seg Neutrophils # Man Lymphocytes # (Manual) PT INR D-Dimer ABG pH ABG pO2 ABG HCO3 ABG O2 Saturation ABG Base Excess ABG Hemoglobin Oxyhemoglobin Sodium Potassium Chloride Carbon Dioxide BUN Creatinine Glucose POC Glucose 268 H 255 H 239 H Hemoglobin A1c Lactic Acid Calcium Magnesium Ferritin AST ALT Alkaline Phosphatase Lactate Dehydrogenase C-Reactive Protein Total Protein Albumin Vancomycin Trough Random Vancomycin Miscellaneous Test 02/04/20 02/04/20 02/04/20 04:31 04:42 04:42 WBC RBC Hgb Hct MCV MCH RDW Lymph % (Auto) Wood % (Auto) Eos % (Auto) Lymph # [place] # Seg Neutrophils % Seg Neuts % (Manual) Lymphocytes % (Manual) Nucleated RBC % Seg Neutrophils # Seg Neutrophils # Man Lymphocytes # (Manual) PT INR D-Dimer 694.19 H ABG pH ABG pO2 ABG HCO3 ABG O2 Saturation ABG Base Excess ABG Hemoglobin Oxyhemoglobin Sodium Potassium Chloride Carbon Dioxide BUN Creatinine Glucose POC Glucose 216 H Hemoglobin A1c Lactic Acid Calcium Magnesium Ferritin 1660.0 H AST ALT Alkaline Phosphatase Lactate Dehydrogenase C-Reactive Protein Total Protein Albumin Vancomycin Trough Random Vancomycin Miscellaneous Test 02/04/20 02/04/2020 04:42 04:42 12:03 WBC 13.7 H RBC 2.92 L Hgb 7.4 L Hct 23.0 L MCV MCH 25 L RDW Lymph % (Auto) Wood % (Auto) Eos % (Auto) Lymph # [place] # Seg Neutrophils % Seg Neuts % (Manual) Lymphocytes % (Manual) Nucleated RBC % Seg Neutrophils # Seg Neutrophils # Man Lymphocytes # (Manual) PT INR D-Dimer ABG pH ABG pO2 ABG HCO3 ABG O2 Saturation ABG Base Excess ABG Hemoglobin Oxyhemoglobin Sodium Potassium Chloride Carbon Dioxide 17 L BUN 80 H Creatinine 5.8 H Glucose 209 H POC Glucose 248 H Hemoglobin A1c Lactic Acid Calcium 8.3 L D Magnesium Ferritin AST ALT Alkaline Phosphatase Lactate Dehydrogenase 972 H C-Reactive Protein 6.20 H Total Protein Albumin Vancomycin Trough Random Vancomycin Miscellaneous Test 02/04/20 02/04/20 02/04/20 17:42 23:48 Unknown WBC RBC Hgb Hct MCV MCH RDW Lymph % (Auto) Wood % (Auto) Eos % (Auto) Lymph # [place] # Seg Neutrophils % Seg Neuts % (Manual) Lymphocytes % (Manual) Nucleated RBC % Seg Neutrophils # Seg Neutrophils # Man Lymphocytes # (Manual) PT INR D-Dimer ABG pH 7.484 H ABG pO2 104.8 H ABG HCO3 ABG O2 Saturation ABG Base Excess ABG Hemoglobin 9.5 L Oxyhemoglobin Sodium Potassium Chloride Carbon Dioxide BUN Creatinine Glucose POC Glucose 209 H 166 H Hemoglobin A1c Lactic Acid Calcium Magnesium Ferritin AST ALT Alkaline Phosphatase Lactate Dehydrogenase C-Reactive Protein Total Protein Albumin Vancomycin Trough Random Vancomycin Miscellaneous Test 02/05/20 02/05/20 02/05/20 03:51 03:51 05:43 WBC 13.9 H RBC 2.98 L Hgb 7.6 L Hct 23.4 L MCV MCH 26 L RDW Lymph % (Auto) Wood % (Auto) Eos % (Auto) Lymph # [place] # Seg Neutrophils % Seg Neuts % (Manual) Lymphocytes % (Manual) Nucleated RBC % Seg Neutrophils # Seg Neutrophils # Man Lymphocytes # (Manual) PT INR D-Dimer ABG pH ABG pO2 ABG HCO3 ABG O2 Saturation ABG Base Excess ABG Hemoglobin Oxyhemoglobin Sodium Potassium Chloride Carbon Dioxide 19 L BUN 65 H Creatinine 5.9 H Glucose 167 H POC Glucose 148 H Hemoglobin A1c Lactic Acid Calcium 8.3 L Magnesium Ferritin AST ALT Alkaline Phosphatase Lactate Dehydrogenase C-Reactive Protein Total Protein Albumin Vancomycin Trough Random Vancomycin Miscellaneous Test 02/05/20 02/05/20 02/05/20 12:34 18:55 23:48 WBC RBC Hgb Hct MCV MCH RDW Lymph % (Auto) Wood % (Auto) Eos % (Auto) Lymph # [place] # Seg Neutrophils % Seg Neuts % (Manual) Lymphocytes % (Manual) Nucleated RBC % Seg Neutrophils # Seg Neutrophils # Man Lymphocytes # (Manual) PT INR D-Dimer ABG pH ABG pO2 ABG HCO3 ABG O2 Saturation ABG Base Excess ABG Hemoglobin Oxyhemoglobin Sodium Potassium Chloride Carbon Dioxide BUN Creatinine Glucose POC Glucose 267 H 166 H 241 H Hemoglobin A1c Lactic Acid Calcium Magnesium Ferritin AST ALT Alkaline Phosphatase Lactate Dehydrogenase C-Reactive Protein Total Protein Albumin Vancomycin Trough Random Vancomycin Miscellaneous Test 02/05/20 02/06/20 02/06/20 Unknown 03:38 03:38 WBC RBC Hgb Hct MCV MCH RDW Lymph % (Auto) Wood % (Auto) Eos % (Auto) Lymph # [place] # Seg Neutrophils % Seg Neuts % (Manual) Lymphocytes % (Manual) Nucleated RBC % Seg Neutrophils # Seg Neutrophils # Man Lymphocytes # (Manual) PT INR D-Dimer 1067.61 H ABG pH 7.497 H ABG pO2 111.6 H ABG HCO3 ABG O2 Saturation ABG Base Excess ABG Hemoglobin 7.4 L Oxyhemoglobin Sodium Potassium Chloride Carbon Dioxide BUN Creatinine Glucose POC Glucose Hemoglobin A1c Lactic Acid Calcium Magnesium Ferritin 1277.0 H AST ALT Alkaline Phosphatase Lactate Dehydrogenase C-Reactive Protein Total Protein Albumin Vancomycin Trough Random Vancomycin Miscellaneous Test 02/06/20 02/06/20 02/06/20 03:38 03:38 06:04 WBC 13.8 H RBC 3.16 L Hgb 8.0 L Hct 25.7 L MCV MCH 25 L RDW Lymph % (Auto) Wood % (Auto) Eos % (Auto) Lymph # [place] # Seg Neutrophils % Seg Neuts % (Manual) Lymphocytes % (Manual) Nucleated RBC % Seg Neutrophils # Seg Neutrophils # Man Lymphocytes # (Manual) PT INR D-Dimer ABG pH ABG pO2 ABG HCO3 ABG O2 Saturation ABG Base Excess ABG Hemoglobin Oxyhemoglobin Sodium Potassium Chloride Carbon Dioxide 21 L BUN 66 H Creatinine 6.0 H Glucose 213 H POC Glucose 232 H Hemoglobin A1c Lactic Acid Calcium Magnesium Ferritin AST ALT Alkaline Phosphatase Lactate Dehydrogenase 48 L C-Reactive Protein Total Protein Albumin Vancomycin Trough Random Vancomycin Miscellaneous Test 02/06/20 02/06/20 02/06/20 11:54 17:34 22:20 WBC RBC Hgb Hct MCV MCH RDW Lymph % (Auto) Wood % (Auto) Eos % (Auto) Lymph # [place] # Seg Neutrophils % Seg Neuts % (Manual) Lymphocytes % (Manual) Nucleated RBC % Seg Neutrophils # Seg Neutrophils # Man Lymphocytes # (Manual) PT INR D-Dimer ABG pH ABG pO2 ABG HCO3 ABG O2 Saturation ABG Base Excess ABG Hemoglobin Oxyhemoglobin Sodium Potassium Chloride Carbon Dioxide BUN Creatinine Glucose POC Glucose 230 H 220 H 262 H Hemoglobin A1c Lactic Acid Calcium Magnesium Ferritin AST ALT Alkaline Phosphatase Lactate Dehydrogenase C-Reactive Protein Total Protein Albumin Vancomycin Trough Random Vancomycin Miscellaneous Test 02/07/20 02/07/20 02/07/20 05:05 05:05 05:24 WBC 15.0 H RBC 3.30 L Hgb 8.3 L Hct 26.6 L MCV MCH 25 L RDW Lymph % (Auto) Wood % (Auto) Eos % (Auto) Lymph # [place] # Seg Neutrophils % Seg Neuts % (Manual) Lymphocytes % (Manual) Nucleated RBC % Seg Neutrophils # Seg Neutrophils # Man Lymphocytes # (Manual) PT INR D-Dimer ABG pH ABG pO2 ABG HCO3 ABG O2 Saturation ABG Base Excess ABG Hemoglobin Oxyhemoglobin Sodium Potassium Chloride Carbon Dioxide BUN 63 H Creatinine 6.1 H Glucose 231 H POC Glucose 192 H Hemoglobin A1c Lactic Acid Calcium Magnesium Ferritin AST ALT Alkaline Phosphatase Lactate Dehydrogenase C-Reactive Protein Total Protein Albumin Vancomycin Trough Random Vancomycin Miscellaneous Test 02/07/20 02/07/20 02/07/20 12:07 16:45 22:44 WBC RBC Hgb Hct MCV MCH RDW Lymph % (Auto) Wood % (Auto) Eos % (Auto) Lymph # [place] # Seg Neutrophils % Seg Neuts % (Manual) Lymphocytes % (Manual) Nucleated RBC % Seg Neutrophils # Seg Neutrophils # Man Lymphocytes # (Manual) PT INR D-Dimer ABG pH ABG pO2 ABG HCO3 ABG O2 Saturation ABG Base Excess ABG Hemoglobin Oxyhemoglobin Sodium Potassium Chloride Carbon Dioxide BUN Creatinine Glucose POC Glucose 218 H 191 H 172 H Hemoglobin A1c Lactic Acid Calcium Magnesium Ferritin AST ALT Alkaline Phosphatase Lactate Dehydrogenase C-Reactive Protein Total Protein Albumin Vancomycin Trough Random Vancomycin Miscellaneous Test 02/08/20 02/08/20 02/08/20 04:57 04:57 04:57 WBC RBC Hgb Hct MCV MCH RDW Lymph % (Auto) Wood % (Auto) Eos % (Auto) Lymph # [place] # Seg Neutrophils % Seg Neuts % (Manual) Lymphocytes % (Manual) Nucleated RBC % Seg Neutrophils # Seg Neutrophils # Man Lymphocytes # (Manual) PT INR D-Dimer 1210.49 H ABG pH ABG pO2 ABG HCO3 ABG O2 Saturation ABG Base Excess ABG Hemoglobin Oxyhemoglobin Sodium Potassium Chloride Carbon Dioxide BUN Creatinine Glucose POC Glucose Hemoglobin A1c Lactic Acid Calcium Magnesium Ferritin 850.8 H AST ALT Alkaline Phosphatase Lactate Dehydrogenase 864 H C-Reactive Protein 5.50 H Total Protein Albumin Vancomycin Trough Random Vancomycin Miscellaneous Test 02/08/20 02/08/20 02/08/20 06:33 11:50 17:06 WBC RBC Hgb Hct MCV MCH RDW Lymph % (Auto) [place] % (Auto) Eos % (Auto) Lymph # [place] # Seg Neutrophils % Seg Neuts % (Manual) Lymphocytes % (Manual) Nucleated RBC % Seg Neutrophils # Seg Neutrophils # Man Lymphocytes # (Manual) PT INR D-Dimer ABG pH ABG pO2 ABG HCO3 ABG O2 Saturation ABG Base Excess ABG Hemoglobin Oxyhemoglobin Sodium Potassium Chloride Carbon Dioxide BUN Creatinine Glucose POC Glucose 178 H 166 H 170 H Hemoglobin A1c Lactic Acid Calcium Magnesium Ferritin AST ALT Alkaline Phosphatase Lactate Dehydrogenase C-Reactive Protein Total Protein Albumin Vancomycin Trough Random Vancomycin Miscellaneous Test 02/08/20 02/09/20 02/09/20 23:43 04:47 05:27 WBC RBC 3.20 L Hgb 8.4 L Hct 25.6 L MCV MCH 26 L RDW Lymph % (Auto) 13.0 L [place] % (Auto) 11.8 H Eos % (Auto) 4.5 H Lymph # 1.1 L [place] # 1.0 H Seg Neutrophils % 70.2 H Seg Neuts % (Manual) Lymphocytes % (Manual) Nucleated RBC % Seg Neutrophils # Seg Neutrophils # Man Lymphocytes # (Manual) PT INR D-Dimer ABG pH ABG pO2 ABG HCO3 ABG O2 Saturation ABG Base Excess ABG Hemoglobin Oxyhemoglobin Sodium Potassium Chloride Carbon Dioxide BUN Creatinine Glucose POC Glucose 110 H 154 H Hemoglobin A1c Lactic Acid Calcium Magnesium Ferritin AST ALT Alkaline Phosphatase Lactate Dehydrogenase C-Reactive Protein Total Protein Albumin Vancomycin Trough Random Vancomycin Miscellaneous Test 02/09/20 02/09/20 02/09/20 05:27 11:23 17:33 WBC RBC Hgb Hct MCV MCH RDW Lymph % (Auto) Wood % (Auto) Eos % (Auto) Lymph # [place] # Seg Neutrophils % Seg Neuts % (Manual) Lymphocytes % (Manual) Nucleated RBC % Seg Neutrophils # Seg Neutrophils # Man Lymphocytes # (Manual) PT INR D-Dimer ABG pH ABG pO2 ABG HCO3 ABG O2 Saturation ABG Base Excess ABG Hemoglobin Oxyhemoglobin Sodium Potassium Chloride 96.9 L Carbon Dioxide BUN 57 H Creatinine 5.9 H Glucose 165 H POC Glucose 177 H 130 H Hemoglobin A1c Lactic Acid Calcium Magnesium Ferritin AST ALT Alkaline Phosphatase Lactate Dehydrogenase C-Reactive Protein Total Protein Albumin Vancomycin Trough Random Vancomycin Miscellaneous Test 02/10/20 02/10/20 02/10/20 07:42 12:01 16:53 WBC RBC Hgb Hct MCV MCH RDW Lymph % (Auto) [place] % (Auto) Eos % (Auto) Lymph # [place] # Seg Neutrophils % Seg Neuts % (Manual) Lymphocytes % (Manual) Nucleated RBC % Seg Neutrophils # Seg Neutrophils # Man Lymphocytes # (Manual) PT INR D-Dimer ABG pH ABG pO2 ABG HCO3 ABG O2 Saturation ABG Base Excess ABG Hemoglobin Oxyhemoglobin Sodium Potassium Chloride Carbon Dioxide BUN Creatinine Glucose POC Glucose 115 H 127 H 122 H Hemoglobin A1c Lactic Acid Calcium Magnesium Ferritin AST ALT Alkaline Phosphatase Lactate Dehydrogenase C-Reactive Protein Total Protein Albumin Vancomycin Trough Random Vancomycin Miscellaneous Test 02/11/20 02/12/20 02/14/20 08:23 12:37 03:00 WBC RBC Hgb Hct MCV MCH RDW Lymph % (Auto) [place] % (Auto) Eos % (Auto) Lymph # [place] # Seg Neutrophils % Seg Neuts % (Manual) Lymphocytes % (Manual) Nucleated RBC % Seg Neutrophils # Seg Neutrophils # Man Lymphocytes # (Manual) PT INR D-Dimer ABG pH ABG pO2 ABG HCO3 ABG O2 Saturation ABG Base Excess ABG Hemoglobin Oxyhemoglobin Sodium 135 L Potassium Chloride 96.1 L Carbon Dioxide BUN 39 H Creatinine 7.9 H Glucose POC Glucose 112 H 114 H Hemoglobin A1c Lactic Acid Calcium 8.3 L Magnesium Ferritin AST ALT Alkaline Phosphatase Lactate Dehydrogenase C-Reactive Protein Total Protein Albumin Vancomycin Trough Random Vancomycin Miscellaneous Test Allied health notes reviewed: nursing
--- NOTE | 2020-02-14 10:49 | Progress Note ---
Assessment and Plan Assessment and plan: --Awaiting outpatient HD chair scheduling, Case management Assisting with discharge planning --Severe sepsis due to COVID 19 induced pneumonia Acute on chronic respiratory failure requiring mechanical ventilation s/p extubation, continue nasal cannula oxygen --Acute metabolic encephalopathy; Multifactorial, supportive care mild improvement --Multiple Organ involvement/poor prognosis --Left medial thigh abscess status post I&D status post surgical debridement s/p Wound VAC removed today follow-up wound care clinic, in network per insurance --Diabetic foot wound nonhealing, continue wound care --Morbid obesity hypoventilation syndrome --Acute kidney injury secondary to vasomotor nephropathy Received HD MWF, now HD as needed basis per nephrology Last HD was on 02/08/2020 --Anemia; of chronic kidney disease Closely monitor H&H and transfuse as needed --Hyponatremia-resolved, monitor electrolytes --Type II diabetes mellitus with uncontrolled blood sugar Accu-Chek sliding scale coverage ADA diet and insulin --Morbid obesity; BMI 44.8 --Hypertension monitor closely for septic shock --Severe protein calorie malnutrition: Secondary to underlying disease process Nutrition supplements nutrition consult --Dysphagia; resolved Patient is tolerating oral food --DC planning; per case management -Outpatient HD chair scheduling -Wound care wound VAC at discharge Disposition per nephrology Monitor closely and adjust the management as needed Disposition; follow repeat COVID test ,home with home health, outpatient HD chair pending, CM assisting with home wound VAC , outpatient versus home wound care Today 02/14/2020 I called the Anh at [phone] and discussed patient's condition Treatment and discharge plan, Answered all her questions Brief history; 29-year-old female with known history of diabetes mellitus presenting to the emergency room today complaining of pain on the right big toe. Patient had an injury to the right big toe about 2 to 3 weeks ago when an object fell on the toe. She has gone to an urgent care facility where she was given some antibiotics namely Bactrim to the right big toe wound. She has noticed that the wound has not improved and she has been having progressive pain. She denies any fever or chills, no nausea vomiting, no cough or shortness of breath, no chest pain. She denies any sick contacts and no recent travel. Work-up in the emergency room reveals hyperglycemia chest x-ray also reveals a left-sided pneumonia with accompanying sepsis. Patient started on empiric IV antibiotics. She is also given a tetanus vaccination. Per the ED doctor the wound itself did not appear overtly superinfected. Although however the patient was tachycardic and febrile and as part of sepsis work-up as her labs indicated hyperglycemia with pseudohyponatremia, minimal anion gap acidosis, and a left-sided pulmonary infiltrate. Given the magnitude of her abnormal vital signs, concomitant diabetes, metabolic derangement, patient meets criteria for hospitalization. We will treat her empirically for community-acquired pneumonia. She does not endorse any sick contacts or exposur es to individuals with coronavirus. Nevertheless her test was sent and patient returned COVID positive. ID evaluated, patient is in isolation, end-stage renal disease on hemodialysis, awaiting outpatient HD chair scheduling, patient also had thigh abscess status post surgical debridement On wound VAC History Interval history: Isolation protocols followed PPE protocols followed Patient seen and examined in her room at the bedside Patient's chart, medications, tests reviewed Patient complains of generalized weakness Afebrile vital signs reviewed PUI?: No COVID19: Positive Hospitalist Physical - Constitutional Vitals: Temp Pulse Resp BP Pulse Ox 98.5 F 85 20 151/75 98 02/14/20 04:58 02/14/20 04:58 02/14/20 09:18 02/14/20 04:58 02/14/20 04:58 General appearance: Present: mild distress, well-nourished, obese (Morbidly obese) - EENT Eyes: Present: PERRL, EOM intact - Neck Neck: Present: supple, normal ROM - Respiratory Respiratory effort: normal Respiratory: bilateral: diminished, rhonchi, negative: rales, wheezing - Cardiovascular Rhythm: regular Heart Sounds: Present: S1 & S2 - Extremities Extremities: no ischemia, No edema, abnormal (Wound VAC in place) - Abdominal General gastrointestinal: soft, non-tender, non-distended, normal bowel sounds - Integumentary Integumentary: Present: clear, warm - Psychiatric Psychiatric: appropriate mood/affect, cooperative - Neurologic Neurologic: CNII-XII intact, moves all extremities Results - Labs CBC & Chem 7: 02/09/20 05:27 02/14/20 03:00 Labs: Laboratory Last Values WBC 8.6 K/mm3 (4.5-11.0) 02/09/20 05:27 RBC 3.20 M/mm3 (3.65-5.03) L 02/09/20 05:27 Hgb 8.4 gm/dl (10.1-14.3) L 02/09/20 05:27 Hct 25.6 % (30.3-42.9) L 02/09/20 05:27 MCV 80 fl (79-97) 02/09/20 05:27 MCH 26 pg (28-32) L 02/09/20 05:27 MCHC 33 % (30-34) 02/09/20 05:27 RDW 13.7 % (13.2-15.2) 02/09/20 05:27 Plt Count 186 K/mm3 (140-440) 02/09/20 05:27 Lymph % (Auto) 13.0 % (13.4-35.0) L 02/09/20 05:27 [place] % (Auto) 11.8 % (0.0-7.3) H 02/09/20 05:27 Eos % (Auto) 4.5 % (0.0-4.3) H 02/09/20 05:27 Baso % (Auto) 0.5 % (0.0-1.8) 02/09/20 05:27 Lymph # 1.1 K/mm3 (1.2-5.4) L 02/09/20 05:27 [place] # 1.0 K/mm3 (0.0-0.8) H 02/09/20 05:27 Eos # 0.4 K/mm3 (0.0-0.4) 02/09/20 05:27 Baso # 0.0 K/mm3 (0.0-0.1) 02/09/20 05:27 Add Manual Diff Complete 01/26/20 05:40 Total Counted 100 01/26/20 05:40 Seg Neutrophils % 70.2 % (40.0-70.0) H 02/09/20 05:27 Seg Neuts % (Manual) 90.0 % (40.0-70.0) H 01/26/20 05:40 Band Neutrophils % 5.0 % 01/26/20 05:40 Lymphocytes % (Manual) 1.0 % (13.4-35.0) L 01/26/20 05:40 Reactive Lymphs % (Man) 0 % 01/26/20 05:40 Monocytes % (Manual) 2.0 % (0.0-7.3) 01/26/20 05:40 Eosinophils % (Manual) 2.0 % (0.0-4.3) 01/26/20 05:40 Basophils % (Manual) 0 % (0.0-1.8) 01/26/20 05:40 Metamyelocytes % 0 % 01/26/20 05:40 Myelocytes % 0 % 01/26/20 05:40 Promyelocytes % 0 % 01/26/20 05:40 Blast Cells % 0 % 01/26/20 05:40 Nucleated RBC % 1.0 % (0.0-0.9) H 01/26/20 05:40 Seg Neutrophils # 6.0 K/mm3 (1.8-7.7) 02/09/20 05:27 Seg Neutrophils # Man 14.8 K/mm3 (1.8-7.7) H 01/26/20 05:40 Band Neutrophils # 0.8 K/mm3 01/26/20 05:40 Lymphocytes # (Manual) 0.2 K/mm3 (1.2-5.4) L 01/26/20 05:40 Abs React Lymphs (Man) 0.0 K/mm3 01/26/20 05:40 Monocytes # (Manual) 0.3 K/mm3 (0.0-0.8) 01/26/20 05:40 Eosinophils # (Manual) 0.3 K/mm3 (0.0-0.4) 01/26/20 05:40 Basophils # (Manual) 0.0 K/mm3 (0.0-0.1) 01/26/20 05:40 Metamyelocytes # 0.0 K/mm3 01/26/20 05:40 Myelocytes # 0.0 K/mm3 01/26/20 05:40 Promyelocytes # 0.0 K/mm3 01/26/20 05:40 Blast Cells # 0.0 K/mm3 01/26/20 05:40 WBC Morphology Not Reportable 01/26/20 05:40 Hypersegmented Neuts Not Reportable 01/26/20 05:40 Hyposegmented Neuts Not Reportable 01/26/20 05:40 Hypogranular Neuts Not Reportable 01/26/20 05:40 Smudge Cells Not Reportable 01/26/20 05:40 Toxic Granulation Not Reportable 01/26/20 05:40 Toxic Vacuolation Not Reportable 01/26/20 05:40 Dohle Bodies Not Reportable 01/26/20 05:40 Pelger-Huet Anomaly Not Reportable 01/26/20 05:40 Barbie Rods Not Reportable 01/26/20 05:40 Platelet Estimate Consistent w auto 01/26/20 05:40 Clumped Platelets Not Reportable 01/26/20 05:40 Plt Clumps, EDTA Not Reportable 01/26/20 05:40 Large Platelets Not Reportable 01/26/20 05:40 Giant Platelets Not Reportable 01/26/20 05:40 Platelet Satelliting Not Reportable 01/26/20 05:40 Plt Morphology Comment Not Reportable 01/26/20 05:40 RBC Morphology Normal 01/26/20 05:40 Dimorphic RBCs Not Reportable 01/26/20 05:40 Polychromasia Not Reportable 01/26/20 05:40 Hypochromasia Not Reportable 01/26/20 05:40 Poikilocytosis Not Reportable 01/26/20 05:40 Anisocytosis Not Reportable 01/26/20 05:40 Microcytosis Not Reportable 01/26/20 05:40 Macrocytosis Not Reportable 01/26/20 05:40 Spherocytes Not Reportable 01/26/20 05:40 Pappenheimer Bodies Not Reportable 01/26/20 05:40 Sickle Cells Not Reportable 01/26/20 05:40 Target Cells Not Reportable 01/26/20 05:40 Tear Drop Cells Not Reportable 01/26/20 05:40 Ovalocytes Not Reportable 01/26/20 05:40 Helmet Cells Not Reportable 01/26/20 05:40 [employer] Bodies Not Reportable 01/26/20 05:40 [place] Rings Not Reportable 01/26/20 05:40 [place] Cells Not Reportable 01/26/20 05:40 Bite Cells Not Reportable 01/26/20 05:40 Crenated Cell Not Reportable 01/26/20 05:40 Elliptocytes Not Reportable 01/26/20 05:40 Acanthocytes (Spur) Not Reportable 01/26/20 05:40 Rouleaux Not Reportable 01/26/20 05:40 Hemoglobin C Crystals Not Reportable 01/26/20 05:40 Schistocytes Not Reportable 01/26/20 05:40 Malaria parasites Not Reportable 01/26/20 05:40 ESR 70 mm/Hr (0-20) 01/17/20 22:58 Ras Bodies Not Reportable 01/26/20 05:40 Hem Pathologist Commnt No 01/26/20 05:40 PT 15.6 Sec. (12.2-14.9) H 01/17/20 18:28 INR 1.22 (0.87-1.13) H 01/17/20 18:28 D-Dimer 1210.49 ng/mlDDU (0-234) H 02/08/20 04:57 ABG pH 7.497 pH Units (7.350-7.450) H 02/05/20 Unknown ABG pCO2 30.2 mm Hg 02/05/20 Unknown ABG pO2 111.6 mm Hg (80.0-90.0) H 02/05/20 Unknown ABG HCO3 22.9 mmol/L (20.0-26.0) 02/05/20 Unknown ABG O2 Saturation 98.3 % (95.0-99.0) 02/05/20 Unknown ABG O2 Content 10.3 (0.0-44) 02/05/20 Unknown ABG Base Excess -0.1 mmol/L (-2.0-3.0) 02/05/20 Unknown ABG Hemoglobin 7.4 gm/dl (12.0-16.0) L 02/05/20 Unknown ABG Carboxyhemoglobin 1.3 % (0.0-5.0) 02/05/20 Unknown ABG Methemoglobin 0.4 % (0.0-1.5) 02/05/20 Unknown VBG pH 7.409 (7.320-7.420) 01/17/20 18:28 Oxyhemoglobin 96.7 % (95.0-99.0) 02/05/20 Unknown FiO2 40 % 02/05/20 Unknown Sodium 135 mmol/L (137-145) L 02/14/20 03:00 Potassium 4.4 mmol/L (3.6-5.0) 02/14/20 03:00 Chloride 96.1 mmol/L (98-107) L 02/14/20 03:00 Carbon Dioxide 25 mmol/L (22-30) 02/14/20 03:00 Anion Gap 18 mmol/L 02/14/20 03:00 BUN 39 mg/dL (7-17) H 02/14/20 03:00 Creatinine 7.9 mg/dL (0.7-1.2) H 02/14/20 03:00 Estimated GFR 7 ml/min 02/14/20 03:00 BUN/Creatinine Ratio 5 % 02/14/20 03:00 Glucose 95 mg/dL (65-100) 02/14/20 03:00 POC Glucose 93 (70-105) 02/14/20 07:57 Hemoglobin A1c 11.6 % (4-6) H 01/18/20 12:47 Lactic Acid 1.00 mmol/L (0.7-2.0) 02/14/20 03:00 Calcium 8.3 mg/dL (8.4-10.2) L 02/14/20 03:00 Magnesium 1.50 mg/dL (1.7-2.3) L 01/17/20 22:58 Ferritin 850.8 ng/mL (13.0-400.0) H 02/08/20 04:57 Total Bilirubin 0.50 mg/dL (0.1-1.2) 01/31/20 03:49 AST 112 units/L (5-40) H 01/31/20 03:49 ALT 112 units/L (7-56) H 01/31/20 03:49 Alkaline Phosphatase 145 units/L (35-129) H 01/31/20 03:49 Lactate Dehydrogenase 864 units/L (91-180) H 02/08/20 04:57 Total Creatine Kinase 122 units/L (30-135) 01/17/20 22:58 C-Reactive Protein 5.50 mg/dL (0.00-1.30) H 02/08/20 04:57 Total Protein 5.5 g/dL (6.3-8.2) L 01/31/20 03:49 Albumin 1.7 g/dL (3.9-5) L 01/31/20 03:49 Albumin/Globulin Ratio 0.4 % 01/31/20 03:49 Procalcitonin 0.27 ng/mL (<0.15) 01/23/20 10:36 HCG, Qual Negative (Negative) 01/31/20 03:49 Urine Color Yellow (Yellow) 01/18/20 00:32 Urine Turbidity Slightly-cloudy (Clear) 01/18/20 00:32 Urine pH 5.0 (5.0-7.0) 01/18/20 00:32 Ur Specific [place] 1.011 (1.003-1.030) 01/18/20 00:32 Urine Protein 100 mg/dl mg/dL (Negative) 01/18/20 00:32 Urine Glucose (UA) >=500 mg/dL (Negative) 01/18/20 00:32 Urine Ketones Tr mg/dL (Negative) 01/18/20 00:32 Urine Blood Neg (Negative) 01/18/20 00:32 Urine Nitrite Neg (Negative) 01/18/20 00:32 Urine Bilirubin Neg (Negative) 01/18/20 00:32 Urine Urobilinogen < 2.0 mg/dL (<2.0) 01/18/20 00:32 Ur Leukocyte Esterase Neg (Negative) 01/18/20 00:32 Urine WBC (Auto) 2.0 /HPF (0.0-6.0) 01/18/20 00:32 Urine RBC (Auto) 4.0 /HPF (0.0-6.0) 01/18/20 00:32 U Epithel Cells (Auto) 2.0 /HPF (0-13.0) 01/18/20 00:32 Hyaline Casts 1 /LPF 01/18/20 00:32 Urine Mucus Few /HPF 01/18/20 00:32 Urine Yeast (Budding) Few /HPF 01/18/20 00:32 Vancomycin Trough 45.4 ug/mL (5.0-20.0) H 01/30/20 05:19 Random Vancomycin 30.6 ug/mL (0-40.0) 02/01/20 03:49 Hepatitis A IgM Ab Non-reactive (NonReactive) 02/01/20 10:57 Hep Bs Antigen Non-reactive (Negative) 02/01/20 10:57 Hep B Core IgM Ab Non-reactive (NonReactive) 02/01/20 10:57 Hepatitis C Antibody Non-reactive (NonReactive) 02/01/20 10:57 Influenza A (Rapid) Negative (Negative) 01/19/20 01:10 Influenza B (Rapid) Negative (Negative) 01/19/20 01:10 AFB Identification 01/20/20 04:00 Miscellaneous Test Flexitest 1 H 01/28/20 10:00 Microbiology: Microbiology 02/14/20 Unknown Peripheral/Venous Blood Culture - Preliminary Culture in Progress 02/14/20 03:00 Peripheral/Venous Blood Culture - Preliminary Culture in Progress Goldstein/IV: Voiding Method Diaper IV Catheter Type [right ac] INT / Saline Lock IV Catheter Type [Right trialysis Femoral] IV Catheter Type [Right Peripheral IV Forearm] IV Catheter Type [Right Wrist] INT / Saline Lock IV Catheter Type [Right Hand] RIGHT THUMB INT IV Catheter Type [Right Upper INT / Saline Lock arm] IV Catheter Type [Left Hand] INT / Saline Lock Active Medications - Current Medications Current Medications: Generic Name Dose Route Start Last Admin Trade Name Freq PRN Reason Stop Dose Admin Acetaminophen 650 mg 01/17/20 23:06 02/12/20 22:17 Tylenol PO 650 mg Q4H PRN Administration Pain MILD(1-3)/Fever >100.5/COLLINS Al Hydrox/Mg Hydrox/Simethicone 15 ml 02/12/20 14:28 Alum-Mag Hydrox-Simeth 463-905-70tk/5ml PO Q4H PRN Indigestion Alprazolam 0.5 mg 02/13/20 00:31 02/13/20 00:56 Xanax PO 0.5 mg QHS PRN Administration Anxiety Lipase/Protease/Amylase 1 each 02/01/20 09:53 Pancretita Saldivar 10,500 Unit FEEDTUBE PRN PRN For Clogged Feeding Tube Dextrose 0 ml 01/17/20 23:06 D50w (25gm) Syringe IV Q30MIN PRN Hypoglycemia Protocol Famotidine 20 mg 01/24/20 10:00 02/14/20 09:21 Pepcid PO 20 mg QDAY COBY Administration Heparin Sodium (Porcine) 5,000 unit 01/18/20 06:00 02/14/20 05:14 Heparin SUB-Q 5,000 unit Q8HR COBY Administration Hydralazine HCl 10 mg 01/18/20 22:14 02/12/20 07:50 Apresoline IV 10 mg Q6H PRN Administration Hypertension Hydrophilic Ointment 1 applic 01/31/20 21:48 02/12/20 16:32 Vaseline Lip Therapy TP 1 applic Q2HR PRN Administration Dry Lips Sodium Chloride 100 mls @ 999 mls/hr 02/05/20 11:31 Nacl 0.9% IV KIRSTEN PRN Hypotension Insulin Human Regular 5 units 02/09/20 22:00 02/13/20 21:35 Humulin R SUB-Q Not Given ACHS [facility] Insulin Human Regular 0 units 02/09/20 22:00 02/13/20 21:35 Humulin R SUB-Q Not Given ACHS [facility] Protocol Magnesium Hydroxide 30 ml 01/17/20 23:06 Milk Of Magnesia PO Q4H PRN Constipation Morphine Sulfate 2 mg 01/17/20 23:06 02/14/20 09:18 Morphine IV 2 mg Q4H PRN Administration Pain, Moderate (4-6) Multi-Ingred Cream/Lotion/Oil/Oint 1 applic 01/31/20 21:48 Artificial Tears Ophth Oint OU Q4HR PRN Dry Eye(s) Nystatin 1 applic 01/29/20 14:00 02/14/20 09:21 Nystop TP 1 applic BID COBY Administration Ondansetron HCl 4 mg 02/12/20 14:29 02/12/20 16:31 Zofran IV 4 mg Q4H PRN Administration Nausea And Vomiting Simple Syrup 15 ml 02/01/20 09:53 Simple Syrup FEEDTUBE PRN PRN Hypoglycemia Simple Syrup 30 ml 02/01/20 09:53 Simple Syrup FEEDTUBE PRN PRN Hypoglycemia Sodium Bicarbonate 325 mg 02/01/20 09:53 Sodium Bicarbonate FEEDTUBE PRN PRN For Clogged Feeding Tube Sodium Chloride 10 ml 01/18/20 10:00 02/14/20 09:21 Sodium Chloride Flush Syringe 10 Ml IV 10 ml BID COBY Administration Sodium Chloride 10 ml 01/17/20 23:06 02/04/20 05:07 Sodium Chloride Flush Syringe 10 Ml IV 10 ml PRN PRN Administration LINE FLUSH Nutrition/Malnutrition Assess - Dietary Evaluation Nutrition/Malnutrition Findings: Nutrition Notes Start: 01/18/20 13:13 Freq: Status: Active Protocol: Document 02/13/20 12:18 DEBRA (Rec: 04/15/20 12:34 NHALL SRW- [email or web address]) Nutrition Notes Initial or Follow up Reassessment Current Diagnosis CKD (stage V CKD),Diabetes, Sepsis,Hypertension Other Pertinent Diagnosis LEV pneu, COVID-19, (L) thigh abscess, (R) foot wound Current Diet Mech soft with chopped meats + Nepro TID Labs/Tests A1C 11.6 Pertinent Medications reviewed Height 6 ft Weight 138 kg [place] Body Weight (kg) 72.72 BMI 41.2 Weight change and time frame Wt fluctuations likely sec to HD and hx of HTN Weight Status Morbidly Obese Subjective/Other Information Pt has consumed <10% of meals per documentation in chart. Per RN note this am, pt c/o generalized body pain. Pt also with increased anxiety, restlessness and difficulty sleeping. Pt s/p surgical debridement of (L) thigh wound ; has wound vac. Pt refused dinner last pm. She is receiving HD at time of phone call from RD (12:02). Pt awaiting LTAC placement. Burn Absent Trauma Absent #3 Nutrition Diagnosis Inadequate oral intake Diagnosis Progress(for reassessment Continues documentation) #2 Nutrition Diagnosis Inadequate protein-energy intake Diagnosis Progress(for reassessment Continues documentation) #1 Nutrition Diagnosis Increased nutrient needs ( specify in comment below) Diagnosis Progress(for reassessment Continues documentation) Is patient on ventilator? No Is Patient Ambulatory and/or Out of Bed No REE-([facility]-confined to bed) 2655.624 Kcal/Kg value to use for calculation 14 Approximate Energy Requirements Using 1932 kcal/Kg Calculation Used for Recommendations Kcal/kg Additional Notes Pro need >1.2g/kg adjBW: >126g /day Fluid needs 1-1.5L/day Nutrition Intervention Change Diet Order: Add Consistent CHO modifier to current diet order Add Supplement/Snack (indicate name/kcal Nepro TID /protein ) Provides kCal: 1,275 Provides Protein (gm) 57 Goal #1 PO intake of meals plus ONS to meet at least 75% energy and pro needs Goal #2 Wound healing Follow-Up By: 02/15/20 Additional Comments F/U: intakes (meals/ONS)
[2020-02-15] MEDS: MORPHINE 2 MG/1 ML INJ IV PRN ×2 (03:53→11:34)
[2020-02-15] MEDS: HEPARIN 5,000 UNIT/1 ML VIAL SUB-Q SCH ×2 (05:30→13:15)
[2020-02-15] MEDS: INSULIN REGULAR, HUMAN 100 UNITS/1 ML SUB-Q SCH ×4 (08:35→12:05)
[2020-02-15] MEDS: FAMOTIDINE 20 MG TAB PO SCH (09:54)
[2020-02-15] MEDS: NYSTATIN POWDER 15 GM TP SCH (09:56)
--- NOTE | 2020-02-15 11:09 | Progress Note ---
Assessment and Plan - Patient Problems (1) Acute kidney injury (CIPRIANO) with acute tubular necrosis (ATN) Current Visit: Yes Status: Acute Plan to address problem: Patient dialysis dependent. kidney indices stable. Arrange outpatient dialysis since no renal recovery yet. Due to Covid status, Patient will need to go to [facility] clinic in [facility] or [facility] if she is accepted. I am reaching out to central intake to find out status. Awaiting response . We will continue to reevaluate on a daily basis.vascular consulted to change Vas- Cath to permacath (2) Type 2 diabetes mellitus with hyperglycemia Current Visit: Yes Status: Acute Plan to address problem: Blood sugar control by primary attending (3) Pneumonia due to COVID-19 virus Current Visit: Yes Status: Acute Plan to address problem: patient has improved. (4) Abscess of left thigh Current Visit: Yes Status: Acute Plan to address problem: sepsis secondary to left thigh abscess. Status post drainage. Improved with antibiotics (5) Hypertension Current Visit: Yes Status: Acute Qualifiers: Qualified Code(s): I10 - Essential (primary) hypertension Plan to address problem: follow-up blood pressure on current medications Subjective Date of service: 02/15/20 Principal diagnosis: Severe Sepsis; LEV PNA; DM II; COVID-19 infection; CIPRIANO Interval history: patient seen lying in bed. she was receiving dialysis.tolerating fluid removal so far. She has no complaints. She denies any chest pain or shortness of breath PUI?: No COVID19: Positive Objective - Exam Narrative Exam: young [place] female lying in bedin no acute distress HEENT: Normocephalic atraumatic, pupils equal round reactive to light Normal oropharynx, Neck: Supple, no venous distention, no goiter CVS: S1S2 RRR no murmur, rub or gallop Lungs: Clear to auscultation, no use of accessory muscles of respiration Abdomen: Full, soft, nontender, no organomegaly no bruit, bowel sounds are present Extremities: No edema, dressing intact,no cyanosis or clubbing Urinary: Deferred Musculo-skeletal: No joint deformities or swelling Neuro: Awake, alert, no focal deficits - Vital Signs Vital signs: Vital Signs - 12hr 02/15/20 04:07 Temperature 98.7 F Pulse Rate 71 Respiratory 18 Rate Blood Pressure 173/86 O2 Sat by Pulse 100 Oximetry - Lab 02/09/20 05:27 02/14/20 03:00 Most recent lab results ABG pH 7.497 pH Units (7.350-7.450) H 02/05/20 Unknown ABG pCO2 30.2 mm Hg 02/05/20 Unknown ABG pO2 111.6 mm Hg (80.0-90.0) H 02/05/20 Unknown ABG HCO3 22.9 mmol/L (20.0-26.0) 02/05/20 Unknown ABG O2 Saturation 98.3 % (95.0-99.0) 02/05/20 Unknown Calcium 8.3 mg/dL (8.4-10.2) L 02/14/20 03:00 Magnesium 1.50 mg/dL (1.7-2.3) L 01/17/20 22:58 Medications & Allergies - Medications Allergies/Adverse Reactions: Allergies No Known Allergies Allergy (Verified 09/12/18 00:37) Home Medications: Home Medications Medication Instructions Recorded Confirmed Last Taken Type glipiZIDE-Metformin 5-500 mg 500 mg PO BID 01/17/20 01/17/20 Unknown History Active Medications: Generic Name Dose Route Start Last Admin Trade Name Freq PRN Reason Stop Dose Admin Acetaminophen 650 mg 01/17/20 23:06 02/12/20 22:17 Tylenol PO 650 mg Q4H PRN Administration Pain MILD(1-3)/Fever >100.5/COLLINS Al Hydrox/Mg Hydrox/Simethicone 15 ml 02/12/20 14:28 Alum-Mag Hydrox-Simeth 522-352-49sq/5ml PO Q4H PRN Indigestion Alprazolam 0.5 mg 02/13/20 00:31 02/13/20 00:56 Xanax PO 0.5 mg QHS PRN Administration Anxiety Lipase/Protease/Amylase 1 each 02/01/20 09:53 Pancreaze 10,500 Unit FEEDTUBE PRN PRN For Clogged Feeding Tube Dextrose 0 ml 01/17/20 23:06 D50w (25gm) Syringe IV Q30MIN PRN Hypoglycemia Protocol Famotidine 20 mg 01/24/20 10:00 02/15/20 09:54 Pepcid PO 20 mg QDAY COBY Administration Heparin Sodium (Porcine) 5,000 unit 01/18/20 06:00 02/15/20 05:30 Heparin SUB-Q 5,000 unit Q8HR COBY Administration Hydralazine HCl 10 mg 01/18/20 22:14 02/12/20 07:50 Apresoline IV 10 mg Q6H PRN Administration Hypertension Hydrophilic Ointment 1 applic 01/31/20 21:48 02/12/20 16:32 Vaseline Lip Therapy TP 1 applic Q2HR PRN Administration Dry Lips Sodium Chloride 100 mls @ 999 mls/hr 02/05/20 11:31 Nacl 0.9% IV KIRSTEN PRN Hypotension Insulin Human Regular 5 units 02/09/20 22:00 02/15/20 08:35 Humulin R SUB-Q Not Given ACHS [facility] Insulin Human Regular 0 units 02/09/20 22:00 02/15/20 08:35 Humulin R SUB-Q Not Given ACHS [facility] Protocol Magnesium Hydroxide 30 ml 01/17/20 23:06 Milk Of Magnesia PO Q4H PRN Constipation Morphine Sulfate 2 mg 01/17/20 23:06 02/15/20 03:53 Morphine IV 2 mg Q4H PRN Administration Pain, Moderate (4-6) Multi-Ingred Cream/Lotion/Oil/Oint 1 applic 01/31/20 21:48 Artificial Tears Ophth Oint OU Q4HR PRN Dry Eye(s) Nystatin 1 applic 01/29/20 14:00 02/15/20 09:56 Nystop TP 1 applic BID COBY Administration Ondansetron HCl 4 mg 02/12/20 14:29 02/12/20 16:31 Zofran IV 4 mg Q4H PRN Administration Nausea And Vomiting Simple Syrup 15 ml 02/01/20 09:53 Simple Syrup FEEDTUBE PRN PRN Hypoglycemia Simple Syrup 30 ml 02/01/20 09:53 Simple Syrup FEEDTUBE PRN PRN Hypoglycemia Sodium Bicarbonate 325 mg 02/01/20 09:53 Sodium Bicarbonate FEEDTUBE PRN PRN For Clogged Feeding Tube Sodium Chloride 10 ml 01/18/20 10:00 02/15/20 09:54 Sodium Chloride Flush Syringe 10 Ml IV 10 ml BID COBY Administration Sodium Chloride 10 ml 01/17/20 23:06 02/04/20 05:07 Sodium Chloride Flush Syringe 10 Ml IV 10 ml PRN PRN Administration LINE FLUSH
--- NOTE | 2020-02-15 11:55 | Discharge Summary ---
Providers - Providers Date of Admission: 01/17/20 22:41 Date of discharge: 02/15/20 Attending physician: MARSHAL PATEL 01/17/20 23:07 Consult to Dietitian/Nutrition [CONS] Routine Physician Instructions: Reason For Exam: Reason for Consult: Diet education 01/17/20 23:13 Consult to Wound/ET Nurse [CONS] Routine Reason For Exam: wound eval on right great toe 01/19/20 11:16 Consult to Physician [CONS] Routine Comment: Consulting Provider: LUCY JUSTIN Physician Instructions: Reason For Exam: LEV PNA with fever 01/22/20 15:35 Consult to Physician [CONS] Routine Comment: Consulting Provider: HANG MITCHELL Physician Instructions: Reason For Exam: acute respiratory failure 01/28/20 17:22 Consult to Physician [CONS] Routine Comment: Consulting Provider: JACKIE ELI Physician Instructions: Reason For Exam: deborah 01/30/20 09:17 Consult to Physician [CONS] Routine Comment: Consulting Provider: SHAUNNA ROLLINS Physician Instructions: Reason For Exam: LEFT THIGH ABSCESS 01/31/20 07:12 Consult to Interventional Radiology [CONS] Routine Consulting Provider: MUNIR ROWLEY Reason For Exam: DEBORAH vascasth for HD initiation Place consult to:: DR. ROWLEY Notified:: DR. ROWLEY Phone number called:: IN HOUSE Was contact made?: Yes If yes, spoke with:: DR. ROWLEY Time called:: 09:00 01/31/20 21:48 Consult to Dietitian/Nutrition [CONS] Routine Physician Instructions: Reason For Exam: Reason for Consult: Evaluate nutritional intake 02/01/20 09:49 Consult to Dietitian/Nutrition [CONS] Routine Physician Instructions: Reason For Exam: Reason for Consult: Write/Manage Tube Feeding 02/06/20 10:23 Speech Therapy Evaluation and Treat [CONS] Urgent Reason For Exam: Self extubation. Pt need swallow eval. 02/07/20 11:37 Occupational Therapy Evaluate and Treat [CONS] Routine Comment: Reason For Exam: generalized weakness Physical Therapy Evaluation and Treat [CONS] Routine Comment: Reason For Exam: generalized weakness 02/13/20 18:08 Consult to Physician [CONS] Routine Comment: Consulting Provider: MUNIR COREA Physician Instructions: Reason For Exam: DEBORAH needs Permacath for Dialysis on DC Primary care physician: COMPOSITION PROFESSOR Hospitalization Condition: Serious Hospital course: 29-year-old female with a long protracted course of hospital stay originally admitted for diabetic nonhealing foot wound. Patient was found after that to have left medial thigh abscesses well both nonhealing requiring surgical debridement. Patient was also diagnosed with severe sepsis from COVID-19 infection. Hospital course was complicated by renal failure which progressed to end-stage renal disease requiring hemodialysis. Disposition: DC-30 STILL A PATIENT - Discharge Diagnoses (1) Pneumonia Status: Acute Comment: Patient treated for bilateral pneumonia with cefepime has since resolved. Patient has finished extensive course of antibiotics and currently afebrile. (2) SIRS (systemic inflammatory response syndrome) Status: Resolved (3) Open wound of great toe Status: Acute Comment: Patient toe wound will still require local wound care. Home health wound care. (4) Hypertension Status: Acute Qualifiers: Qualified Code(s): I10 - Essential (primary) hypertension Comment: Patient has not required any antihypertensives now. Patient is on hemodialysis should be okay to start ELADIA inhibitor if needed. Will follow and observe the patient's blood pressure becomes problematic will restart antihypertensive. Most likely was low because of severe sepsis. (5) Uncontrolled diabetes mellitus Status: Acute Comment: Patient had significantly uncontrolled diabetes. Now after 29 days much better control. We will continue present insulin dosage. Can follow-up with primary care for telemedicine for any dose titration. Family aware Ms. Jiménez that patient should monitor blood sugars at least twice daily and have a log for primary care physician. Should be able to change to p.o. oral hypoglycemics as an outpatient. (6) Hypokalemia Status: Resolved (7) COVID-19 virus detected Status: Acute (8) Severe sepsis Status: Acute Comment: Patient with severe sepsis secondary to COVID-19 pneumonia. Now stable for discharge after 29-day hospital stay. Patient will be going home with home health physical therapy. (9) Abscess of left thigh Status: Acute Comment: Awaiting wound VAC. To be present will need follow-up with wound treatment center as well. (10) Acute kidney injury (DEBORAH) with acute tubular necrosis (ATN) Status: Acute Comment: Acute on chronic kidney disease. Patient does have a chair time. Has permacath to be placed today. Patient stable for discharge after permacath follow hemodialysis on Tuesday. (11) Acute respiratory failure with hypoxia Status: Acute (12) Pneumonia due to COVID-19 virus Status: Acute Core Measure Documentation - Palliative Care Palliative Care/ Comfort Measures: Not Applicable - Core Measures Any of the following diagnoses?: none Exam - Constitutional Vitals: Temp Pulse Resp BP Pulse Ox 98.7 F 71 18 173/86 100 02/15/20 04:07 02/15/20 04:07 02/15/20 04:07 02/15/20 04:07 02/15/20 04:07 General appearance: Present: no acute distress - EENT Eyes: Present: PERRL ENT: hearing intact, clear oral mucosa - Neck Neck: Present: supple, normal ROM - Respiratory Respiratory effort: normal - Cardiovascular Heart Sounds: Present: S1 & S2. Absent: rub, click - Extremities Extremity abnormal: other (Decreased pulses left foot debility neuropathy. Left thigh wound bandaged.) - Abdominal General gastrointestinal: Present: soft, non-tender, non-distended, normal bowel sounds - Musculoskeletal Musculoskeletal: generalized weakness - Psychiatric Psychiatric: appropriate mood/affect, intact judgment & insight Plan Activity: up only with assistance Weight Bearing Status: Touch Down Weight Bearing Diet: diabetic Special Instructions: home health RN Follow up with: PRIMARY CARE, [Primary Care Provider] - 3-5 Days Prescriptions: glipiZIDE-Metformin 5-500 mg 500 mg PO BID #60 Lipase/Protease/Amylase [Pancreaze Dr 10,500 Unit] 1 each FEEDTUBE PRN PRN #7 capsule PRN Reason: For Clogged Feeding Tube Famotidine [Pepcid] 20 mg PO QDAY #30 tablet ALPRAZolam [Xanax TAB] 0.5 mg PO QHS PRN #60 tablet PRN Reason: Anxiety
--- NOTE | 2020-02-15 13:36 | Progress Note ---
Assessment and Plan s/p extensive incision and drainage of left thigh abscess. wound is controlled and clean with wound vac therapy. no further surgical intervention warranted. pt said she is waiting on her mother to call back with her appointment to outpatie nt wound care at facility that takes her insurance. Subjective Date of service: 02/15/20 Patient Reports: Positive: no new complaints (pt wound vac was dislodged yesterday. no acute events. ) Objective Vital Signs - 12hr 02/15/20 04:07 Temperature 98.7 F Pulse Rate 71 Respiratory 18 Rate Blood Pressure 173/86 O2 Sat by Pulse 100 Oximetry - General physical appearance well developed, no distress - Respiratory normal expansion, normal respiratory effort - Integumentary other (wound clean with good granulation tissue. no drainage. vac changed to portable vac for discharge to home.) - Labs 02/09/20 05:27 02/14/20 03:00
[2020-02-15 14:29] VITALS: BP 125/68
[2020-02-15] MEDS ORDERED: fentaNYL 100 MCG/2 ML INJ ONE (15:12)
[2020-02-15] MEDS ORDERED: MIDAZOLAM 2 MG/2 ML INJ ONE (15:12)
[2020-02-15] MEDS ORDERED: HEPARIN/NS 5000 UNIT/500ML 500 ML IR ONE (15:14)
[2020-02-15] MEDS ORDERED: SODIUM CHLORIDE 0.9% 250ML 250 ML ONE (16:00)
[2020-02-15] MEDS: LIDOCAINE (2%) 20 MG/1 ML VIAL 20 ML MDV INFILTRATI ONE ×2 (16:08→16:09)
[2020-02-15] MEDS: HEPARIN 10,000 UNITS/10 ML VIAL ONE ×4 (16:15→16:32)
--- NOTE | 2020-02-15 16:59 | Operative Report ---
Operative Report Operative Report: Date of procedure: 02/15/2020 Pre-operative diagnosis: End-Stage Renal Disease Post-operative diagnosis: Same Procedure(s): 1. Ultrasound-Guided Access Right Internal Vein 2. Placement of 23 cm GlidePath Permacath 3. Radiologic Supervision with Interpretation Surgeon: Manuelito Garcia MD Front Office Director: None Anesthesia: Local EBL: Minimal Counts: Correct Complications: None Condition: Stable Findings: Successful placement of right IJ permacath. Specimen: None Indication: The patient is a 29-year-old female with a history of renal failure that developed when she presented with sepsis from pneumonia secondary to COVID-19 infection. She initially was on hemodialysis through a right femoral Vas-Cath however she requires placement of a permacath prior to discharge. She was given the risk, benefits, and alternative procedures and consented to the procedure. Description of Procedure: The patient was brought to the cardiac catheterization technician and laid in supine position and his right neck and chest were prepped and draped in normal sterile fashion. Ultrasound was used to identify the right internal jugular vein and the overlying skin and soft tissue was anesthetized with lidocaine. A small stab incision was made and then the access needle was used ultrasound guidance in the right internal jugular vein. An 035 J-wire was advanced to the central venous system under fluoroscopic guidance. The tract was serially dilated up to a 16 Norwegian peel-away safety sheath and the inner cannula and wire removed. An exit site on the chest was then chosen and the presumed tunnel was anesthetized with lidocaine. A small stab incision was made on the chest and then the permacath was connected to the tunneler and pulled antegrade through the tunnel. The catheter was inserted into the safe sheath and safety sheath was pulled away. The catheter was positioned under fluoroscopy. Once in adequate position both ports were aspirated and flushed and then primed with the appropriate amount heparin. The neck incision was then closed with 4-0 Monocryl in interrupted subcuticular fashion and dressed with Surgicel. The catheters was dressed sterilely. Final fluoroscopy demonstrated the catheter was in excellent position without any evidence of pneumothorax. The patient tolerated the pr ocedure well, all sponge needle and instrument counts were correct, the patient was taken to recovery in stable condition.
[2020-02-15] MEDS ORDERED: NEOMY 3.5 MG/BACIT 400 UNITS/POLY B 5000 UNITS/GM OINT PACKET TP STA (17:20)
[2020-02-15] MEDS ORDERED: SODIUM CHLORIDE*PRIMING MACHINE ONLY FOR DIALYSIS MC ONE (20:51)
== END 2020-02-15 18:45 | disposition home health service (06) | DRG 853 ==
LOC: ED 17:58 → 3A 22:41 → CC1 01-31 20:07 → 3A 02-06 11:19
PROVIDERS: ADMIT Internal Medicine Geriatric Medicine; ATTEND Internal Medicine
PROC: 4A033R1 Measurement of Arterial Saturation, Peripheral, Percutaneous Approach (ICD-10-PCS; 2020-01-24)
PROC: 0JDM0ZZ Extraction of Left Upper Leg Subcutaneous Tissue and Fascia, Open Approach (ICD-10-PCS; principal; 2020-01-31)
PROC: 0BH17EZ Insertion of Endotracheal Airway into Trachea, Via Natural or Artificial Opening (ICD-10-PCS; 2020-01-31)
PROC: 5A1955Z Respiratory Ventilation, Greater than 96 Consecutive Hours (ICD-10-PCS; 2020-01-31)
PROC: 5A1D70Z Performance of Urinary Filtration, Intermittent, Less than 6 Hours Per Day (ICD-10-PCS; 2020-01-31)
PROC: 06HY33Z Insertion of Infusion Device into Lower Vein, Percutaneous Approach (ICD-10-PCS; 2020-01-31)
PROC: B54CZZA Ultrasonography of Left Lower Extremity Veins, Guidance (ICD-10-PCS; 2020-01-31)
PROC: 5A1D70Z Performance of Urinary Filtration, Intermittent, Less than 6 Hours Per Day (ICD-10-PCS; 2020-02-01)
PROC: 5A1D70Z Performance of Urinary Filtration, Intermittent, Less than 6 Hours Per Day (ICD-10-PCS; 2020-02-02)
PROC: 5A1D70Z Performance of Urinary Filtration, Intermittent, Less than 6 Hours Per Day (ICD-10-PCS; 2020-02-04)
PROC: 5A1D70Z Performance of Urinary Filtration, Intermittent, Less than 6 Hours Per Day (ICD-10-PCS; 2020-02-05)
PROC: 5A1D70Z Performance of Urinary Filtration, Intermittent, Less than 6 Hours Per Day (ICD-10-PCS; 2020-02-06)
PROC: 5A1D70Z Performance of Urinary Filtration, Intermittent, Less than 6 Hours Per Day (ICD-10-PCS; 2020-02-08)
PROC: 5A1D70Z Performance of Urinary Filtration, Intermittent, Less than 6 Hours Per Day (ICD-10-PCS; 2020-02-11)
PROC: 5A1D70Z Performance of Urinary Filtration, Intermittent, Less than 6 Hours Per Day (ICD-10-PCS; 2020-02-13)
PROC: 5A1D70Z Performance of Urinary Filtration, Intermittent, Less than 6 Hours Per Day (ICD-10-PCS; 2020-02-15)
PROC: 0JH63XZ Insertion of Tunneled Vascular Access Device into Chest Subcutaneous Tissue and Fascia, Percutaneous Approach (ICD-10-PCS; 2020-02-15)
PROC: 05HY33Z Insertion of Infusion Device into Upper Vein, Percutaneous Approach (ICD-10-PCS; 2020-02-15)
PROC: B51V1ZA Fluoroscopy of Other Veins using Low Osmolar Contrast, Guidance (ICD-10-PCS; 2020-02-15)
DX: A41.89 Other specified sepsis (principal); U07.1 COVID-19; J12.89 Other viral pneumonia; N17.0 Acute kidney failure with tubular necrosis; E43 Unspecified severe protein-calorie malnutrition; G93.41 Metabolic encephalopathy; J96.21 Acute and chronic respiratory failure with hypoxia; N18.6 End stage renal disease; E87.1 Hypo-osmolality and hyponatremia; E87.2 Acidosis; L02.416 Cutaneous abscess of left lower limb; E66.2 Morbid (severe) obesity with alveolar hypoventilation; I12.0 Hypertensive chronic kidney disease with stage 5 chronic kidney disease or end stage renal disease; R65.20 Severe sepsis without septic shock; Z71.3 Dietary counseling and surveillance; E11.65 Type 2 diabetes mellitus with hyperglycemia; Z82.49 Family history of ischemic heart disease and other diseases of the circulatory system; E11.621 Type 2 diabetes mellitus with foot ulcer; I95.9 Hypotension, unspecified; D63.1 Anemia in chronic kidney disease; S91.103A Unspecified open wound of unspecified great toe without damage to nail, initial encounter; E11.22 Type 2 diabetes mellitus with diabetic chronic kidney disease; Z99.2 Dependence on renal dialysis; Z79.4 Long term (current) use of insulin; X58.XXXA Exposure to other specified factors, initial encounter; Y93.89 Activity, other specified; Y92.89 Other specified places as the place of occurrence of the external cause; Y99.8 Other external cause status; Z68.37 Body mass index [BMI] 37.0-37.9, adult
CPT/HCPCS: 36415; 36556; 36558; 36600; 71045; 71046; 74018; 76937; 77001; 80048; 80053; 80074; 80202; 81001; 82140; 82550; 82728; 82803; 82805; 82962; 83036; 83615; 83735; 84145; 84703; 85007; 85025; 85027; 85379; 85610; 85652; 86140; 87040; 87070; 87086; 87116; 87205; 87400; 87635; 88112; 88312; 90715; 93005; 93010; 94002; 94003; 94760; 96365; 96367; 96375; G0378; A6250; C1750; C1752; C1769; J0171; J0330; J0360; J0456; J0692; J0696; J1644; J1815; J1956; J2250; J2270; J2370; J2405; J2543; J2704; J3010; J3370; J3475; J3480; J7030; J7040; J7050

== ENCOUNTER 2020-02-17 21:08 | Inpatient (IN) | payer OTHER ==
--- NOTE | 2020-02-17 21:47 | Emergency Department Report ---
ED General Adult HPI - General Chief complaint: Hypoglycemia Stated complaint: HIGH BLOOD SUGAR Time Seen by Provider: 02/17/20 21:23 Source: EMS Mode of arrival: Stretcher Limitations: No Limitations - History of Present Illness Initial comments: Patient is 29 years old female with a recent diagnosis of diabetes. Patient was admitted to this hospital on January 17, 2020 infection of her toe and then also found to have thigh abscess for which she had incision and drainage. Patient was admitted for severe sepsis and also found to have pneumonia. Patient tested positive for COVID-19. Patient also developed acute renal failure and started on dialysis. Patient was discharged from the hospital 2 days ago. Patient brought to the emergency room via EMS from home after patient found to be hypoglycemic with a blood sugar of 40. Patient received dextrose 5% by EMS. Patient reported that she has been having several episodes of hypoglycemia today. Patient was discharged with glipizide/metformin. Patient currently denying any fever, cough, nausea or vomiting. She also denied any chest pain or shortness of breath. During my encounters with this patient I was wearing my PPE including N 95 mask. - Related Data Previous Rx's Medication Instructions Recorded Last Taken Type ALPRAZolam [Xanax TAB] 0.5 mg PO QHS PRN #60 tablet 02/15/20 Unknown Rx Acetaminophen [Acetaminophen TAB] 650 mg PO Q4H PRN tablet 02/15/20 Unknown Rx Antacid [Alum-Mag Hydrox-Simeth 15 ml PO Q4H PRN oral.liqd 02/15/20 Unknown Rx [id number]/5Ml] Famotidine [Pepcid] 20 mg PO QDAY #30 tablet 02/15/20 Unknown Rx Lipase/Protease/Amylase [Pancreaze 1 each FEEDTUBE PRN PRN #7 capsule 02/15/20 Unknown Rx 10,500 Unit] Magnesium Hydroxide [Milk of 30 ml PO Q4H PRN oral.liqd 02/15/20 Unknown Rx Magnesia] glipiZIDE-Metformin 5-500 mg 500 mg PO BID #60 02/15/20 Unknown Rx Allergies Allergy/AdvReac Type Severity Reaction Status Date / Time No Known Allergies Allergy Verified 09/12/18 00:37 ED Review of Systems ROS: Stated complaint: HIGH BLOOD SUGAR Other details as noted in HPI Comment: All other systems reviewed and negative Constitutional: denies: chills, fever Respiratory: denies: cough, shortness of breath, SOB with exertion, wheezing Cardiovascular: denies: chest pain Gastrointestinal: denies: abdominal pain, nausea, vomiting Genitourinary: denies: urgency, dysuria ED Past Medical Hx - Past Medical History Hx Hypertension: Yes Hx Heart Attack/AMI: No Hx Diabetes: Yes Hx Renal Disease: Yes (acute renal failure not yet on HD but expected in near future) Hx Asthma: No Hx COPD: No Hx HIV: No Additional medical history: Obesity. Sinusitis - Social History Smoking Status: Never Smoker Substance Use Type: None - Medications Home Medications: Home Medications Medication Instructions Recorded Confirmed Last Taken Type ALPRAZolam [Xanax TAB] 0.5 mg PO QHS PRN #60 tablet 02/15/20 Unknown Rx Acetaminophen [Acetaminophen TAB] 650 mg PO Q4H PRN tablet 02/15/20 Unknown Rx Antacid [Alum-Mag Hydrox-Simeth 15 ml PO Q4H PRN oral.liqd 02/15/20 Unknown Rx [id number]/5Ml] Famotidine [Pepcid] 20 mg PO QDAY #30 tablet 02/15/20 Unknown Rx Lipase/Protease/Amylase [Pancreaze 1 each FEEDTUBE PRN PRN #7 capsule 02/15/[address] 10,500 Unit] Magnesium Hydroxide [Milk of 30 ml PO Q4H PRN oral.liqd 02/15/20 Unknown Rx Magnesia] glipiZIDE-Metformin 5-500 mg 500 mg PO BID #60 02/15/20 Unknown Rx ED Physical Exam - General Limitations: No Limitations General appearance: alert, in no apparent distress - Head Head exam: Present: atraumatic, normocephalic, normal inspection - Eye Eye exam: Present: normal appearance - ENT ENT exam: Present: normal exam, normal orophraynx, mucous membranes moist - Neck Neck exam: Present: normal inspection, full ROM. Absent: tenderness, meningismus, lymphadenopathy, thyromegaly - Respiratory Respiratory exam: Present: normal lung sounds bilaterally - Cardiovascular Cardiovascular Exam: Present: regular rate, normal rhythm, normal heart sounds - GI/Abdominal GI/Abdominal exam: Present: soft, normal bowel sounds. Absent: distended, tenderness, guarding, rebound, rigid, organomegaly, mass, bruit, pulsatile mass, hernia - Back Exam Back exam: Present: normal inspection. Absent: CVA tenderness (R), CVA tenderness (L) - Neurological Exam Neurological exam: Present: alert, oriented X3, CN II-XII intact - Skin Skin exam: Present: warm ED Course Vital Signs 02/17/20 21:49 Temperature 98.2 F Pulse Rate 98 H Respiratory 14 Rate Blood Pressure 168/107 [Right] ED Medical Decision Making - Lab Data Result diagrams: 02/17/20 21:55 02/17/20 21:55 - Medical Decision Making Patient is 29 years old female with a recent diagnosis of diabetes. Patient was admitted to this hospital on January 17, 2020 infection of her toe and then also found to have thigh abscess for which she had incision and drainage. Patient was admitted for severe sepsis and also found to have pneumonia. Patient tested positive for COVID-19. Patient also developed acute renal failure and started on dialysis. Patient was discharged from the hospital 2 days ago. Patient brought to the emergency room via EMS from home after patient found to be hypoglycemic with a blood sugar of 40. Patient received dextrose 5% by EMS. Patient reported that she has been having several episodes of hypoglycemia today. Patient was discharged with glipizide/metformin. Patient currently denying any fever, cough, nausea or vomiting. She also denied any chest pain or shortness of breath. Patient received a meal tray, dextrose 50 and continued on D5 water in the emergency room however patient continued to have a low blood sugar. Patient given another dextrose 50 and started on D10. I discussed the patient with Dr. Moore, he agreed to admit the patient to medical service for further management. Critical Care Time: Yes Critical care time in (mins) excluding proc time.: 30 Critical care attestation.: If time is entered above; I have spent that time in minutes in the direct care of this critically ill patient, excluding procedure time. ED Disposition Clinical Impression: Hypoglycemia associated with type 2 diabetes mellitus Disposition: OP ADMIT IP TO THIS HOSP Is pt being admited?: Yes Condition: Stable Instructions: Diabetes Mellitus Type 2 in Adults (ED) Referrals: PRIMARY CARE, [Primary Care Provider] - 3-5 Days
[2020-02-17] MEDS ORDERED: DEXTROSE 5% IN WATER 1,000 ML IV SCH (22:00)
[2020-02-17 22:18] LABS: Basophils # (Auto) 0.2 K/mm3 (0.0-0.1); Basophils % (Auto) 2.4 % (0.0-1.8); Eosinophils # (Auto) 0.8 K/mm3 (0.0-0.4); Eosinophils % (Auto) 13.6 % (0.0-4.3); Hematocrit 27.4 % (30.3-42.9); Hemoglobin 8.9 gm/dl (10.1-14.3); Lymphocytes # (Auto) 1.3 K/mm3 (1.2-5.4); Lymphocytes % (Auto) 21.4 % (13.4-35.0); Mean Corpuscular HGB Conc 33 % (30-34); Mean Corpuscular Volume 81 fl (79-97); Monocytes # (Auto) 0.9 K/mm3 (0.0-0.8); Monocytes % (Auto) 14.5 % (0.0-7.3); Platelet Count 259 K/mm3 (140-440); Red Blood Count 3.37 M/mm3 (3.65-5.03); Red Cell Distribution Width 15.4 % (13.2-15.2)
[2020-02-17 22:38] LABS: Calcium 8.4 mg/dL (8.4-10.2)
[2020-02-17] MEDS ORDERED: DEXTROSE 50% IN WATER (25GM) 50 ML SYRINGE IV ONE ×2 (23:14→23:17)
[2020-02-17] MEDS ORDERED: MAGNESIUM HYDROXIDE (MOM) ORAL LIQD UDC PO PRN (23:35)
[2020-02-17] MEDS ORDERED: ACETAMINOPHEN 325 MG TAB PO PRN (23:35)
[2020-02-17] MEDS ORDERED: DEXTROSE 50% IN WATER (25GM) 50 ML SYRINGE IV PRN (23:35)
[2020-02-17] MEDS ORDERED: D5W/0.9% NACL 1,000 ML IV SCH (23:45)
[2020-02-17] MEDS ORDERED: DEXTROSE 10% IN WATER 1,000 ML IV SCH (23:45)
--- NOTE | 2020-02-18 | History and Physical Report ---
History of Present Illness Date of examination: 02/17/20 Date of admission: 02/17/2020 Chief complaint: Low blood glucose History of present illness: 49 year old female seen in the ER c/o hypoglycemia. She was recently diagnosed with D/Mellitus. She was discharged from the hospital 2 days ago after spending almost a month in the hospital. She was recently admitted in the hospital for thigh abscess and had incision and drainage. She had a pneumonia and was also diagnosed with COVID 19 during the course of her stay in the hospital. She was said to have tested negative prior to discharge. She had a blood glucose of 40 today and received dextrose 5% by EMS. She has had multiple episodes of hypoglycemia within the last 24 hours. She was discharged home on Glipizide/Metformin . She denies any fever or chills, no nausea vomiting, no abdominal pain no headache or dizziness. Denies any chest pain or shortness of breath. Work-up in the emergency room was remarkable for the low blood sugar. She was subsequently started on IV dextrose. Past History Past Medical History: diabetes, hypertension Past Surgical History: No surgical history Social history: no significant social history Family history: no significant family history Medications and Allergies Allergies Allergy/AdvReac Type Severity Reaction Status Date / Time No Known Allergies Allergy Verified 09/12/18 00:37 Home Medications Medication Instructions Recorded Confirmed Last Taken Type ALPRAZolam [Xanax TAB] 0.5 mg PO QHS PRN #60 tablet 02/15/20 Unknown Rx Acetaminophen [Acetaminophen TAB] 650 mg PO Q4H PRN tablet 02/15/20 Unknown Rx Antacid [Alum-Mag Hydrox-Simeth 15 ml PO Q4H PRN oral.liqd 02/15/20 Unknown Rx [id number]/5Ml] Famotidine [Pepcid] 20 mg PO QDAY #30 tablet 02/15/20 Unknown Rx Lipase/Protease/Amylase [Pancreaze 1 each FEEDTUBE PRN PRN #7 capsule 02/15/[address] 10,500 Unit] Magnesium Hydroxide [Milk of 30 ml PO Q4H PRN oral.liqd 02/15/20 Unknown Rx Magnesia] glipiZIDE-Metformin 5-500 mg 500 mg PO BID #60 02/15/20 Unknown Rx Active Meds: Active Medications Acetaminophen (Tylenol) 650 mg PO Q4H PRN PRN Reason: Pain MILD(1-3)/Fever >100.5/COLLINS Dextrose (D50w (25gm) Syringe) 0 ml IV Q30MIN PRN; Protocol PRN Reason: Hypoglycemia Dextrose/Sodium Chloride (D5ns) 1,000 mls @ 100 mls/hr IV DIRECT COBY Magnesium Hydroxide (Milk Of Magnesia) 30 ml PO Q4H PRN PRN Reason: Constipation Morphine Sulfate (Morphine) 2 mg IV Q4H PRN PRN Reason: Pain, Moderate (4-6) Ondansetron HCl (Zofran) 4 mg IV Q8H PRN PRN Reason: Nausea And Vomiting Sodium Chloride (Sodium Chloride Flush Syringe 10 Ml) 10 ml IV BID COBY Sodium Chloride (Sodium Chloride Flush Syringe 10 Ml) 10 ml IV PRN PRN PRN Reason: LINE FLUSH Review of Systems Constitutional: no fever, no chills, no fatigue, no poor appetite Cardiovascular: no chest pain, no palpitations Respiratory: no cough, no shortness of breath Gastrointestinal: no abdominal pain, no nausea, no vomiting, no diarrhea Genitourinary Female: no dysuria, no hematuria Musculoskeletal: no neck pain, no low back pain Integumentary: no rash, no pruritis Neurological: no headaches, no change in mentation Exam - Constitutional Vitals: Temp Pulse Resp BP Pulse Ox 98.2 F 98 H 14 168/107 02/17/20 21:49 02/17/20 21:49 02/17/20 21:49 02/17/20 21:49 General appearance: Present: no acute distress, well-nourished, obese - EENT Eyes: Present: PERRL, EOM intact ENT: hearing intact, clear oral mucosa, dentition normal - Neck Neck: Present: supple, normal ROM - Respiratory Respiratory effort: normal Respiratory: bilateral: CTA - Cardiovascular Rhythm: regular Heart Sounds: Present: S1 & S2 - Extremities Extremities: no ischemia, No edema, Full ROM Peripheral Pulses: within normal limits - Abdominal General gastrointestinal: Present: soft, non-tender, non-distended - Integumentary Integumentary: Present: clear, warm, dry - Musculoskeletal Musculoskeletal: strength equal bilaterally - Psychiatric Psychiatric: appropriate mood/affect, intact judgment & insight, cooperative - Neurologic Neurologic: CNII-XII intact, moves all extremities Results - Labs CBC & Chem 7: 04/19/20 21:55 02/17/20 21:55 Labs: Abnormal lab results 02/17/20 02/17/20 02/17/20 Range/Units 21:38 21:55 21:55 RBC 3.37 L (3.65-5.03) M/mm3 Hgb 8.9 L (10.1-14.3) gm/dl Hct 27.4 L (30.3-42.9) % MCH 27 L (28-32) pg RDW 15.4 H (13.2-15.2) % Jay % (Auto) 14.5 H (0.0-7.3) % Eos % (Auto) 13.6 H (0.0-4.3) % Baso % (Auto) 2.4 H (0.0-1.8) % Jay # 0.9 H (0.0-0.8) K/mm3 Eos # 0.8 H (0.0-0.4) K/mm3 Baso # 0.2 H (0.0-0.1) K/mm3 Sodium 134 L (137-145) mmol/L Chloride 91.6 L (98-107) mmol/L BUN 48 H (7-17) mg/dL Creatinine 10.2 H (0.7-1.2) mg/dL Glucose 33 L* (65-100) mg/dL POC Glucose 64 L (70-105) 02/17/20 Range/Units 23:18 RBC (3.65-5.03) M/mm3 Hgb (10.1-14.3) gm/dl Hct (30.3-42.9) % MCH (28-32) pg RDW (13.2-15.2) % Jay % (Auto) (0.0-7.3) % Eos % (Auto) (0.0-4.3) % Baso % (Auto) (0.0-1.8) % Jay # (0.0-0.8) K/mm3 Eos # (0.0-0.4) K/mm3 Baso # (0.0-0.1) K/mm3 Sodium (137-145) mmol/L Chloride (98-107) mmol/L BUN (7-17) mg/dL Creatinine (0.7-1.2) mg/dL Glucose (65-100) mg/dL POC Glucose 55 L (70-105) Assessment and Plan - Patient Problems (1) Hypoglycemia associated with type 2 diabetes mellitus Current Visit: Yes Status: Acute Plan to address problem: Patient has been started on IV dextrose. Will monitor Accu-Cheks closely. We will hold off on oral hypoglycemic agents at this time. (2) Anemia Current Visit: Yes Status: Acute Plan to address problem: Probably chronic. Will monitor CBC. (3) DVT prophylaxis Current Visit: No Status: Acute Plan to address problem: Patient has been placed on subcutaneous heparin. (4) Full code status Current Visit: No Status: Acute
[2020-02-18] MEDS: DEXTROSE 50% IN WATER (25GM) 50 ML SYRINGE IV PRN ×9 (02:50→23:14)
[2020-02-18 04:27] LABS: Bacteria,Urine 2+ /HPF (Negative); Bilirubin,Urine NEG (Negative); Blood,Urine SM (Negative); Color,Urine Yellow (Yellow); Mucus,Urine FEW /HPF; Urobilinogen,Urine < 2.0 mg/dL (<2.0)
[2020-02-18 04:28] LABS: Protein,Urine 300 mg/dL mg/dL (Negative)
[2020-02-18 04:50] LABS: Hematocrit 26.5 % (30.3-42.9); Hemoglobin 8.4 gm/dl (10.1-14.3); Mean Corpuscular HGB Conc 32 % (30-34); Mean Corpuscular Volume 82 fl (79-97); Platelet Count 225 K/mm3 (140-440); Red Blood Count 3.22 M/mm3 (3.65-5.03); Red Cell Distribution Width 15.5 % (13.2-15.2)
[2020-02-18 05:00] LABS: INR 1.01 (0.87-1.13)
[2020-02-18 05:01] LABS: Partial Thromboplastin Time 33.7 Sec. (24.2-36.6)
[2020-02-18 05:02] LABS: Calcium 8.1 mg/dL (8.4-10.2)
[2020-02-18 05:55] LABS: Band Neutrophils # (Manual) 0.2 K/mm3; Platelet Estimate Consistent w Auto; RBC Morphology Normal; Total Cells Counted 100
[2020-02-18] MEDS: DEXTROSE 10% IN WATER 1,000 ML IV SCH ×2 (07:30→20:03)
--- NOTE | 2020-02-18 09:28 | Progress Note ---
Subjective Date of service: 02/18/20 Principal diagnosis: Hypoglycemia Interval history: Patient 29 years old recently diagnosed with diabetic foot wound. Patient also had acute to chronic kidney disease now requiring hemodialysis. Patient also recently treated for COVID-19 sepsis. Discharged in stable condition now presents with persistent hypoglycemia taking oral hypoglycemic glipizide and metformin. Objective - Constitutional Vitals: Vital Signs - 12hr 02/17/20 02/17/20 02/17/20 21:30 21:45 21:49 Temperature 98.2 F Pulse Rate 97 H 94 H 98 H Respiratory 21 26 H 14 Rate Blood Pressure 153/100 168/107 Blood Pressure 168/107 [Right] O2 Sat by Pulse 100 Oximetry 02/17/20 02/17/20 02/17/20 22:00 22:15 22:30 Temperature Pulse Rate 105 H 90 102 H Respiratory 15 25 H 20 Rate Blood Pressure 166/104 135/75 135/75 Blood Pressure [Right] O2 Sat by Pulse 100 100 100 Oximetry 02/17/20 02/17/20 02/17/20 22:46 23:00 23:16 Temperature Pulse Rate 99 H 96 H Respiratory 17 13 Rate Blood Pressure 150/78 159/80 154/76 Blood Pressure [Right] O2 Sat by Pulse 100 100 100 Oximetry 02/17/20 02/17/20 02/18/20 23:30 23:46 00:00 Temperature Pulse Rate Respiratory Rate Blood Pressure 134/84 184/106 181/106 Blood Pressure [Right] O2 Sat by Pulse 100 100 100 Oximetry 02/18/20 02/18/20 02/18/20 00:16 00:30 00:46 Temperature Pulse Rate Respiratory Rate Blood Pressure 170/90 170/90 176/83 Blood Pressure [Right] O2 Sat by Pulse 100 99 100 Oximetry 02/18/20 02/18/20 02/18/20 01:00 01:10 01:20 Temperature Pulse Rate Respiratory Rate Blood Pressure 177/99 177/99 145/79 Blood Pressure [Right] O2 Sat by Pulse 100 100 100 Oximetry 02/18/20 02/18/20 02/18/20 01:30 01:40 01:50 Temperature Pulse Rate Respiratory Rate Blood Pressure 166/81 166/81 161/86 Blood Pressure [Right] O2 Sat by Pulse 100 100 100 Oximetry 02/18/20 02/18/20 02/18/20 02:00 02:10 02:20 Temperature Pulse Rate Respiratory Rate Blood Pressure 174/101 166/81 183/103 Blood Pressure [Right] O2 Sat by Pulse 100 100 100 Oximetry 02/18/20 02/18/20 02/18/20 02:52 03:03 03:11 Temperature 98.6 F 98.2 F Pulse Rate 105 H 96 H 96 H Respiratory 18 13 Rate Blood Pressure 135/82 Blood Pressure 168/107 [Right] O2 Sat by Pulse 99 100 Oximetry 02/18/20 08:11 Temperature 98.4 F Pulse Rate 97 H Respiratory 18 Rate Blood Pressure 164/76 Blood Pressure [Right] O2 Sat by Pulse 99 Oximetry - Labs CBC & Chem 7: 02/18/20 04:23 02/18/20 06:49 Labs: Abnormal lab results 02/17/20 02/17/20 02/17/20 Range/Units 21:38 21:55 21:55 RBC 3.37 L (3.65-5.03) M/mm3 Hgb 8.9 L (10.1-14.3) gm/dl Hct 27.4 L (30.3-42.9) % MCH 27 L (28-32) pg RDW 15.4 H (13.2-15.2) % Atkinson % (Auto) 14.5 H (0.0-7.3) % Eos % (Auto) 13.6 H (0.0-4.3) % Baso % (Auto) 2.4 H (0.0-1.8) % Atkinson # 0.9 H (0.0-0.8) K/mm3 Eos # 0.8 H (0.0-0.4) K/mm3 Baso # 0.2 H (0.0-0.1) K/mm3 Lymphocytes % (Manual) (13.4-35.0) % Monocytes % (Manual) (0.0-7.3) % Eosinophils % (Manual) (0.0-4.3) % Lymphocytes # (Manual) (1.2-5.4) K/mm3 Eosinophils # (Manual) (0.0-0.4) K/mm3 Sodium 134 L (137-145) mmol/L Chloride 91.6 L (98-107) mmol/L BUN 48 H (7-17) mg/dL Creatinine 10.2 H (0.7-1.2) mg/dL Glucose 33 L* (65-100) mg/dL POC Glucose 64 L (70-105) Hemoglobin A1c (4-6) % Calcium (8.4-10.2) mg/dL Urine pH (5.0-7.0) Urine WBC (Auto) (0.0-6.0) /HPF 02/17/20 02/17/20 02/18/20 Range/Units 23:18 Unknown 02:47 RBC (3.65-5.03) M/mm3 Hgb (10.1-14.3) gm/dl Hct (30.3-42.9) % MCH (28-32) pg RDW (13.2-15.2) % Atkinson % (Auto) (0.0-7.3) % Eos % (Auto) (0.0-4.3) % Baso % (Auto) (0.0-1.8) % Atkinson # (0.0-0.8) K/mm3 Eos # (0.0-0.4) K/mm3 Baso # (0.0-0.1) K/mm3 Lymphocytes % (Manual) (13.4-35.0) % Monocytes % (Manual) (0.0-7.3) % Eosinophils % (Manual) (0.0-4.3) % Lymphocytes # (Manual) (1.2-5.4) K/mm3 Eosinophils # (Manual) (0.0-0.4) K/mm3 Sodium (137-145) mmol/L Chloride (98-107) mmol/L BUN (7-17) mg/dL Creatinine (0.7-1.2) mg/dL Glucose (65-100) mg/dL POC Glucose 55 L < 40 L (70-105) Hemoglobin A1c 9.1 H (4-6) % Calcium (8.4-10.2) mg/dL Urine pH (5.0-7.0) Urine WBC (Auto) (0.0-6.0) /HPF 02/18/20 02/18/20 02/18/20 Range/Units 03:02 04:00 04:23 RBC 3.22 L (3.65-5.03) M/mm3 Hgb 8.4 L (10.1-14.3) gm/dl Hct 26.5 L (30.3-42.9) % MCH 26 L (28-32) pg RDW 15.5 H (13.2-15.2) % Atkinson % (Auto) (0.0-7.3) % Eos % (Auto) (0.0-4.3) % Baso % (Auto) (0.0-1.8) % Atkinson # (0.0-0.8) K/mm3 Eos # (0.0-0.4) K/mm3 Baso # (0.0-0.1) K/mm3 Lymphocytes % (Manual) 11.0 L (13.4-35.0) % Monocytes % (Manual) 8.0 H (0.0-7.3) % Eosinophils % (Manual) 11.0 H (0.0-4.3) % Lymphocytes # (Manual) 0.7 L (1.2-5.4) K/mm3 Eosinophils # (Manual) 0.7 H (0.0-0.4) K/mm3 Sodium (137-145) mmol/L Chloride (98-107) mmol/L BUN (7-17) mg/dL Creatinine (0.7-1.2) mg/dL Glucose (65-100) mg/dL POC Glucose 115 H (70-105) Hemoglobin A1c (4-6) % Calcium (8.4-10.2) mg/dL Urine pH 8.0 H (5.0-7.0) Urine WBC (Auto) 35.0 H (0.0-6.0) /HPF 02/18/20 02/18/20 02/18/20 Range/Units 04:23 05:25 06:49 RBC (3.65-5.03) M/mm3 Hgb (10.1-14.3) gm/dl Hct (30.3-42.9) % MCH (28-32) pg RDW (13.2-15.2) % Atkinson % (Auto) (0.0-7.3) % Eos % (Auto) (0.0-4.3) % Baso % (Auto) (0.0-1.8) % Atkinson # (0.0-0.8) K/mm3 Eos # (0.0-0.4) K/mm3 Baso # (0.0-0.1) K/mm3 Lymphocytes % (Manual) (13.4-35.0) % Monocytes % (Manual) (0.0-7.3) % Eosinophils % (Manual) (0.0-4.3) % Lymphocytes # (Manual) (1.2-5.4) K/mm3 Eosinophils # (Manual) (0.0-0.4) K/mm3 Sodium 135 L (137-145) mmol/L Chloride 97.2 L (98-107) mmol/L BUN 50 H (7-17) mg/dL Creatinine 10.5 H (0.7-1.2) mg/dL Glucose 35 L* 45 L (65-100) mg/dL POC Glucose < 40 L (70-105) Hemoglobin A1c (4-6) % Calcium 8.1 L (8.4-10.2) mg/dL Urine pH (5.0-7.0) Urine WBC (Auto) (0.0-6.0) /HPF 02/18/20 Range/Units 09:12 RBC (3.65-5.03) M/mm3 Hgb (10.1-14.3) gm/dl Hct (30.3-42.9) % MCH (28-32) pg RDW (13.2-15.2) % Atkinson % (Auto) (0.0-7.3) % Eos % (Auto) (0.0-4.3) % Baso % (Auto) (0.0-1.8) % Atkinson # (0.0-0.8) K/mm3 Eos # (0.0-0.4) K/mm3 Baso # (0.0-0.1) K/mm3 Lymphocytes % (Manual) (13.4-35.0) % Monocytes % (Manual) (0.0-7.3) % Eosinophils % (Manual) (0.0-4.3) % Lymphocytes # (Manual) (1.2-5.4) K/mm3 Eosinophils # (Manual) (0.0-0.4) K/mm3 Sodium (137-145) mmol/L Chloride (98-107) mmol/L BUN (7-17) mg/dL Creatinine (0.7-1.2) mg/dL Glucose (65-100) mg/dL POC Glucose 44 L (70-105) Hemoglobin A1c (4-6) % Calcium (8.4-10.2) mg/dL Urine pH (5.0-7.0) Urine WBC (Auto) (0.0-6.0) /HPF
--- NOTE | 2020-02-18 12:14 | Progress Note ---
Assessment and Plan - Patient Problems (1) Anemia Current Visit: Yes Status: Acute Plan to address problem: Anemia secondary to chronic disease both recent infection and chronic kidney disease. (2) Hypoglycemia associated with type 2 diabetes mellitus Current Visit: Yes Status: Acute Plan to address problem: Patient hypoglycemia directly related to decreased p.o. intake and continued use of oral hypoglycemic agent more likely than not glyburide. Will place patient back on D10 given additional amp of D50 now. Treat with sliding scale only and discontinue oral hypoglycemic medicine. (3) Abscess of left thigh Current Visit: No Status: Acute Plan to address problem: Abscess left thigh actually looks good patient has wound VAC to the area. Just continue present local wound care and wound VAC at this time. (4) Acute kidney injury (CIPRIANO) with acute tubular necrosis (ATN) Current Visit: No Status: Acute Plan to address problem: Patient has now chronic kidney disease will most likely require hemodialysis. This may be why patient's appetite has gone down. (5) Full code status Current Visit: No Status: Acute (6) Open wound of great toe Current Visit: No Status: Acute Plan to address problem: Local wound care. (7) Pneumonia due to COVID-19 virus Current Visit: No Status: Acute Plan to address problem: Was positive for COVID-19 on last visit we will follow-up chest x-ray. No symptoms now no fever chills no nausea vomiting no cough. Subjective Date of service: 02/18/20 Principal diagnosis: Hypoglycemia Interval history: Patient presents with a new complaint of hypoglycemia. Patient confused d iaphoretic Accu-Cheks had gone down into the 40s. Patient states at home she lost her appetite and continued to take her oral hypoglycemic medications. Patient therefore had episode of hypoglycemia. At present she still has a poor appetite however receiving D10 current Accu-Chek 89. Objective - Constitutional Vitals: Vital Signs - 12hr 02/18/20 02/18/20 02/18/20 00:16 00:30 00:46 Temperature Pulse Rate Respiratory Rate Blood Pressure 170/90 170/90 176/83 Blood Pressure [Right] O2 Sat by Pulse 100 99 100 Oximetry 02/18/20 02/18/20 02/18/20 01:00 01:10 01:20 Temperature Pulse Rate Respiratory Rate Blood Pressure 177/99 177/99 145/79 Blood Pressure [Right] O2 Sat by Pulse 100 100 100 Oximetry 02/18/20 02/18/20 02/18/20 01:30 01:40 01:50 Temperature Pulse Rate Respiratory Rate Blood Pressure 166/81 166/81 161/86 Blood Pressure [Right] O2 Sat by Pulse 100 100 100 Oximetry 02/18/20 02/18/20 02/18/20 02:00 02:10 02:20 Temperature Pulse Rate Respiratory Rate Blood Pressure 174/101 166/81 183/103 Blood Pressure [Right] O2 Sat by Pulse 100 100 100 Oximetry 02/18/20 02/18/20 02/18/20 02:52 03:03 03:11 Temperature 98.6 F 98.2 F Pulse Rate 105 H 96 H 96 H Respiratory 18 13 Rate Blood Pressure 135/82 Blood Pressure 168/107 [Right] O2 Sat by Pulse 99 100 Oximetry 02/18/20 02/18/20 08:11 10:00 Temperature 98.4 F Pulse Rate 97 H 97 H Respiratory 18 Rate Blood Pressure 164/76 Blood Pressure [Right] O2 Sat by Pulse 99 Oximetry General appearance: Present: no acute distress, other (Generalized weakness but alert) - EENT Eyes: PERRL, EOM intact ENT: hearing intact, clear oral mucosa - Neck Neck: supple, normal ROM - Respiratory Respiratory effort: normal Respiratory: bilateral: CTA - Cardiovascular Rhythm: regular Heart Sounds: Present: S1 & S2. Absent: gallop, rub Extremity abnormal: other (Thigh wound. Patient has wound VAC to the area. No acute infection noted.) - Gastrointestinal General gastrointestinal: Present: soft, non-tender, non-distended, normal bowel sounds - Musculoskeletal Musculoskeletal: generalized weakness - Neurologic Neurologic: moves all extremities - Psychiatric Psychiatric: memory intact, appropriate mood/affect, intact judgment & insight - Labs CBC & Chem 7: 02/18/20 04:23 02/18/20 06:49 Labs: Abnormal lab results 02/17/20 02/17/20 02/17/20 Range/Units 21:38 21:55 21:55 RBC 3.37 L (3.65-5.03) M/mm3 Hgb 8.9 L (10.1-14.3) gm/dl Hct 27.4 L (30.3-42.9) % MCH 27 L (28-32) pg RDW 15.4 H (13.2-15.2) % Winkler % (Auto) 14.5 H (0.0-7.3) % Eos % (Auto) 13.6 H (0.0-4.3) % Baso % (Auto) 2.4 H (0.0-1.8) % Winkler # 0.9 H (0.0-0.8) K/mm3 Eos # 0.8 H (0.0-0.4) K/mm3 Baso # 0.2 H (0.0-0.1) K/mm3 Lymphocytes % (Manual) (13.4-35.0) % Monocytes % (Manual) (0.0-7.3) % Eosinophils % (Manual) (0.0-4.3) % Lymphocytes # (Manual) (1.2-5.4) K/mm3 Eosinophils # (Manual) (0.0-0.4) K/mm3 Sodium 134 L (137-145) mmol/L Chloride 91.6 L (98-107) mmol/L BUN 48 H (7-17) mg/dL Creatinine 10.2 H (0.7-1.2) mg/dL Glucose 33 L* (65-100) mg/dL POC Glucose 64 L (70-105) Hemoglobin A1c (4-6) % Calcium (8.4-10.2) mg/dL Urine pH (5.0-7.0) Urine WBC (Auto) (0.0-6.0) /HPF 02/17/20 02/17/20 02/18/20 Range/Units 23:18 Unknown 02:47 RBC (3.65-5.03) M/mm3 Hgb (10.1-14.3) gm/dl Hct (30.3-42.9) % MCH (28-32) pg RDW (13.2-15.2) % Winkler % (Auto) (0.0-7.3) % Eos % (Auto) (0.0-4.3) % Baso % (Auto) (0.0-1.8) % Winkler # (0.0-0.8) K/mm3 Eos # (0.0-0.4) K/mm3 Baso # (0.0-0.1) K/mm3 Lymphocytes % (Manual) (13.4-35.0) % Monocytes % (Manual) (0.0-7.3) % Eosinophils % (Manual) (0.0-4.3) % Lymphocytes # (Manual) (1.2-5.4) K/mm3 Eosinophils # (Manual) (0.0-0.4) K/mm3 Sodium (137-145) mmol/L Chloride (98-107) mmol/L BUN (7-17) mg/dL Creatinine (0.7-1.2) mg/dL Glucose (65-100) mg/dL POC Glucose 55 L < 40 L (70-105) Hemoglobin A1c 9.1 H (4-6) % Calcium (8.4-10.2) mg/dL Urine pH (5.0-7.0) Urine WBC (Auto) (0.0-6.0) /HPF 02/18/20 02/18/20 02/18/20 Range/Units 03:02 04:00 04:23 RBC 3.22 L (3.65-5.03) M/mm3 Hgb 8.4 L (10.1-14.3) gm/dl Hct 26.5 L (30.3-42.9) % MCH 26 L (28-32) pg RDW 15.5 H (13.2-15.2) % Winkler % (Auto) (0.0-7.3) % Eos % (Auto) (0.0-4.3) % Baso % (Auto) (0.0-1.8) % Winkler # (0.0-0.8) K/mm3 Eos # (0.0-0.4) K/mm3 Baso # (0.0-0.1) K/mm3 Lymphocytes % (Manual) 11.0 L (13.4-35.0) % Monocytes % (Manual) 8.0 H (0.0-7.3) % Eosinophils % (Manual) 11.0 H (0.0-4.3) % Lymphocytes # (Manual) 0.7 L (1.2-5.4) K/mm3 Eosinophils # (Manual) 0.7 H (0.0-0.4) K/mm3 Sodium (137-145) mmol/L Chloride (98-107) mmol/L BUN (7-17) mg/dL Creatinine (0.7-1.2) mg/dL Glucose (65-100) mg/dL POC Glucose 115 H (70-105) Hemoglobin A1c (4-6) % Calcium (8.4-10.2) mg/dL Urine pH 8.0 H (5.0-7.0) Urine WBC (Auto) 35.0 H (0.0-6.0) /HPF 02/18/20 02/18/20 02/18/20 Range/Units 04:23 05:25 06:49 RBC (3.65-5.03) M/mm3 Hgb (10.1-14.3) gm/dl Hct (30.3-42.9) % MCH (28-32) pg RDW (13.2-15.2) % Winkler % (Auto) (0.0-7.3) % Eos % (Auto) (0.0-4.3) % Baso % (Auto) (0.0-1.8) % Winkler # (0.0-0.8) K/mm3 Eos # (0.0-0.4) K/mm3 Baso # (0.0-0.1) K/mm3 Lymphocytes % (Manual) (13.4-35.0) % Monocytes % (Manual) (0.0-7.3) % Eosinophils % (Manual) (0.0-4.3) % Lymphocytes # (Manual) (1.2-5.4) K/mm3 Eosinophils # (Manual) (0.0-0.4) K/mm3 Sodium 135 L (137-145) mmol/L Chloride 97.2 L (98-107) mmol/L BUN 50 H (7-17) mg/dL Creatinine 10.5 H (0.7-1.2) mg/dL Glucose 35 L* 45 L (65-100) mg/dL POC Glucose < 40 L (70-105) Hemoglobin A1c (4-6) % Calcium 8.1 L (8.4-10.2) mg/dL Urine pH (5.0-7.0) Urine WBC (Auto) (0.0-6.0) /HPF 02/18/20 Range/Units 09:12 RBC (3.65-5.03) M/mm3 Hgb (10.1-14.3) gm/dl Hct (30.3-42.9) % MCH (28-32) pg RDW (13.2-15.2) % Winkler % (Auto) (0.0-7.3) % Eos % (Auto) (0.0-4.3) % Baso % (Auto) (0.0-1.8) % Winkler # (0.0-0.8) K/mm3 Eos # (0.0-0.4) K/mm3 Baso # (0.0-0.1) K/mm3 Lymphocytes % (Manual) (13.4-35.0) % Monocytes % (Manual) (0.0-7.3) % Eosinophils % (Manual) (0.0-4.3) % Lymphocytes # (Manual) (1.2-5.4) K/mm3 Eosinophils # (Manual) (0.0-0.4) K/mm3 Sodium (137-145) mmol/L Chloride (98-107) mmol/L BUN (7-17) mg/dL Creatinine (0.7-1.2) mg/dL Glucose (65-100) mg/dL POC Glucose 44 L (70-105) Hemoglobin A1c (4-6) % Calcium (8.4-10.2) mg/dL Urine pH (5.0-7.0) Urine WBC (Auto) (0.0-6.0) /HPF
[2020-02-18] MEDS: MORPHINE 2 MG/1 ML INJ IV PRN (12:20)
--- NOTE | 2020-02-18 12:58 | Event Note ---
Date: 02/18/20 I was informed this morning that the patient who was discharged on Tuesday returned this morning for symptomatic hypoglycemia. She was discharged home with a wound vac and home nursing of which she did receive a visit and a vac change. I spoke with the patient's mother this morning who had questions about aftercare. I reminded her per the last discussion we had with the patient that her insurance ([employer]) is not covered here at our out patient wound care center and she would need to call the [facility] system to make an appointment. She expressed understanding. She also said she did not understand how she was sent home with the diabetes medication she was sent home on because she was not a diabetic before he last admission. I informed her that her daughter was a diabetic, but it may have been undiagnosed or suboptimally treated as her HbA1c was>11. I explained she needs to get a primary care doctor to closely follow her diabetes management to avoid her hypoglycemic episodes, and keep her sugars controlled as she is already suffering from complications of diabetes such as non healing peripheral wounds. The mother expressed understanding and said she was scheduled to see a PCP today, but is now in the hospital and will have to reschedule. Wound vac was changed today with the wound care nurse. Wound looks good with healthy granulation tissue and no drainage, tenderness or odor. The edges of the wound also appear to be darrick a bit. A new vac was changed without complication.
[2020-02-19] MEDS: DEXTROSE 50% IN WATER (25GM) 50 ML SYRINGE IV PRN (03:21)
[2020-02-19] MEDS ORDERED: DEXTROSE 50% IN WATER (25GM) 50 ML SYRINGE IV ONE ×2 (03:37→03:48)
[2020-02-19] MEDS ORDERED: hydrALAZINE 20 MG/1 ML INJ IV PRN (03:38)
[2020-02-19] MEDS: DEXTROSE 10% IN WATER 1,000 ML IV SCH ×3 (05:52→22:43)
[2020-02-19] MEDS ORDERED: SODIUM CHLORIDE 0.9% 100 ML IV PRN (07:56)
--- NOTE | 2020-02-19 08:39 | Progress Note ---
Assessment and Plan Assessment and plan: --Anemia Current Visit: Yes Status: Acute Anemia secondary to chronic disease both recent infection and chronic kidney disease. -- Hypoglycemia associated with type 2 diabetes mellitus Current Visit: Yes Status: Acute Patient hypoglycemia directly related to decreased p.o. intake and continued use of oral hypoglycemic agent more likely than not glyburide. Will place patient back on D10 given additional amp of D50 now. Treat with sliding scale only and discontinue oral hypoglycemic medicine. --Pneumonia due to COVID-19 virus Current Visit: No Status: Acute Was positive for COVID-19 on last visit we will follow-up chest x-ray. No symptoms now no fever chills no nausea vomiting no cough. --Abscess of left thigh Current Visit: No Status: Acute Abscess left thigh actually looks good patient has wound VAC to the area. Just continue present local wound care and wound VAC at this time. -- Open wound of great toe Current Visit: No Status: Acute Local wound care. -- Acute kidney injury (CIPRIANO) with acute tubular necrosis (ATN) Current Visit: No Status: Acute Patient has now chronic kidney disease will most likely require hemodialysis. This may be why patient's appetite has gone down. --Full code status Current Visit: No Status: Acute Monitor closely and adjust management as needed History Interval history: Patient seen and examined in in her room Patient's chart medications consultants recommendations reviewed Patient feels slightly better no new complaints Vital signs reviewed Hospitalist Physical - Constitutional Vitals: Temp Pulse Resp BP Pulse Ox 98.0 F 90 18 172/98 100 02/19/20 02:50 02/19/20 03:45 02/19/20 02:50 02/19/20 03:45 02/19/20 02:50 General appearance: Present: no acute distress, well-nourished, obese, other (Generalized weakness but alert) - EENT Eyes: Present: PERRL, EOM intact - Neck Neck: Present: supple, normal ROM - Respiratory Respiratory effort: normal Respiratory: bilateral: diminished, negative: rales, rhonchi, wheezing - Cardiovascular Rhythm: regular Heart Sounds: Present: S1 & S2 - Extremities Extremities: no ischemia, No edema - Abdominal General gastrointestinal: soft, non-tender, non-distended, normal bowel sounds - Integumentary Integumentary: Present: clear, warm - Psychiatric Psychiatric: appropriate mood/affect, cooperative - Neurologic Neurologic: CNII-XII intact, moves all extremities Results - Labs CBC & Chem 7: 02/18/20 04:23 02/18/20 21:02 Labs: Laboratory Last Values WBC 6.2 K/mm3 (4.5-11.0) 02/18/20 04:23 RBC 3.22 M/mm3 (3.65-5.03) L 02/18/20 04:23 Hgb 8.4 gm/dl (10.1-14.3) L 02/18/20 04:23 Hct 26.5 % (30.3-42.9) L 02/18/20 04:23 MCV 82 fl (79-97) 02/18/20 04:23 MCH 26 pg (28-32) L 02/18/20 04:23 MCHC 32 % (30-34) 02/18/20 04:23 RDW 15.5 % (13.2-15.2) H 02/18/20 04:23 Plt Count 225 K/mm3 (140-440) 02/18/20 04:23 Lymph % (Auto) 21.4 % (13.4-35.0) 02/17/20 21:55 Chase % (Auto) Securities And Real Estate Director 02/18/20 04:23 Eos % (Auto) 13.6 % (0.0-4.3) H 02/17/20 21:55 Baso % (Auto) 2.4 % (0.0-1.8) H 02/17/20 21:55 Lymph # 1.3 K/mm3 (1.2-5.4) 02/17/20 21:55 Chase # 0.9 K/mm3 (0.0-0.8) H 02/17/20 21:55 Eos # 0.8 K/mm3 (0.0-0.4) H 02/17/20 21:55 Baso # 0.2 K/mm3 (0.0-0.1) H 02/17/20 21:55 Add Manual Diff Complete 02/18/20 04:23 Total Counted 100 02/18/20 04:23 Seg Neutrophils % 48.1 % (40.0-70.0) 02/17/20 21:55 Seg Neuts % (Manual) 66.0 % (40.0-70.0) 02/18/20 04:23 Band Neutrophils % 3.0 % 02/18/20 04:23 Lymphocytes % (Manual) 11.0 % (13.4-35.0) L 02/18/20 04:23 Reactive Lymphs % (Man) 0 % 02/18/20 04:23 Monocytes % (Manual) 8.0 % (0.0-7.3) H 02/18/20 04:23 Eosinophils % (Manual) 11.0 % (0.0-4.3) H 02/18/20 04:23 Basophils % (Manual) 1.0 % (0.0-1.8) 02/18/20 04:23 Metamyelocytes % 0 % 02/18/20 04:23 Myelocytes % 0 % 02/18/20 04:23 Promyelocytes % 0 % 02/18/20 04:23 Blast Cells % 0 % 02/18/20 04:23 Nucleated RBC % Not Reportable 02/18/20 04:23 Seg Neutrophils # 3.0 K/mm3 (1.8-7.7) 02/17/20 21:55 Seg Neutrophils # Man 4.1 K/mm3 (1.8-7.7) 02/18/20 04:23 Band Neutrophils # 0.2 K/mm3 02/18/20 04:23 Lymphocytes # (Manual) 0.7 K/mm3 (1.2-5.4) L 02/18/20 04:23 Abs React Lymphs (Man) 0.0 K/mm3 02/18/20 04:23 Monocytes # (Manual) 0.5 K/mm3 (0.0-0.8) 02/18/20 04:23 Eosinophils # (Manual) 0.7 K/mm3 (0.0-0.4) H 02/18/20 04:23 Basophils # (Manual) 0.1 K/mm3 (0.0-0.1) 02/18/20 04:23 Metamyelocytes # 0.0 K/mm3 02/18/20 04:23 Myelocytes # 0.0 K/mm3 02/18/20 04:23 Promyelocytes # 0.0 K/mm3 02/18/20 04:23 Blast Cells # 0.0 K/mm3 02/18/20 04:23 WBC Morphology Not Reportable 02/18/20 04:23 Hypersegmented Neuts Not Reportable 02/18/20 04:23 Hyposegmented Neuts Not Reportable 02/18/20 04:23 Hypogranular Neuts Not Reportable 02/18/20 04:23 Smudge Cells Not Reportable 02/18/20 04:23 Toxic Granulation Not Reportable 02/18/20 04:23 Toxic Vacuolation Not Reportable 02/18/20 04:23 Dohle Bodies Not Reportable 02/18/20 04:23 Pelger-Huet Anomaly Not Reportable 02/18/20 04:23 Barbie Rods Not Reportable 02/18/20 04:23 Platelet Estimate Consistent w auto 02/18/20 04:23 Clumped Platelets Not Reportable 02/18/20 04:23 Plt Clumps, EDTA Not Reportable 02/18/20 04:23 Large Platelets Not Reportable 02/18/20 04:23 Giant Platelets Not Reportable 02/18/20 04:23 Platelet Satelliting Not Reportable 02/18/20 04:23 Plt Morphology Comment Not Reportable 02/18/20 04:23 RBC Morphology Normal 02/18/20 04:23 Dimorphic RBCs Not Reportable 02/18/20 04:23 Polychromasia Not Reportable 02/18/20 04:23 Hypochromasia Not Reportable 02/18/20 04:23 Poikilocytosis Not Reportable 02/18/20 04:23 Anisocytosis Not Reportable 02/18/20 04:23 Microcytosis Not Reportable 02/18/20 04:23 Macrocytosis Not Reportable 02/18/20 04:23 Spherocytes Not Reportable 02/18/20 04:23 Pappenheimer Bodies Not Reportable 02/18/20 04:23 Sickle Cells Not Reportable 02/18/20 04:23 Target Cells Not Reportable 02/18/20 04:23 Tear Drop Cells Not Reportable 02/18/20 04:23 Ovalocytes Not Reportable 02/18/20 04:23 Helmet Cells Not Reportable 02/18/20 04:23 [place] Bodies Not Reportable 02/18/20 04:23 [place] Rings Not Reportable 02/18/20 04:23 [place] Cells Not Reportable 02/18/20 04:23 Bite Cells Not Reportable 02/18/20 04:23 Crenated Cell Not Reportable 02/18/20 04:23 Elliptocytes Not Reportable 02/18/20 04:23 Acanthocytes (Spur) Not Reportable 02/18/20 04:23 Rouleaux Not Reportable 02/18/20 04:23 Hemoglobin C Crystals Not Reportable 02/18/20 04:23 Schistocytes Not Reportable 02/18/20 04:23 Malaria parasites Not Reportable 02/18/20 04:23 Ras Bodies Not Reportable 02/18/20 04:23 Hem Pathologist Commnt No 02/18/20 04:23 PT 13.4 Sec. (12.2-14.9) 02/18/20 04:23 INR 1.01 (0.87-1.13) 02/18/20 04:23 APTT 33.7 Sec. (24.2-36.6) 02/18/20 04:23 Sodium 135 mmol/L (137-145) L 02/18/20 04:23 Potassium 4.4 mmol/L (3.6-5.0) 02/18/20 04:23 Chloride 97.2 mmol/L (98-107) L 02/18/20 04:23 Carbon Dioxide 22 mmol/L (22-30) 02/18/20 04:23 Anion Gap 20 mmol/L 02/18/20 04:23 BUN 50 mg/dL (7-17) H 02/18/20 04:23 Creatinine 10.5 mg/dL (0.7-1.2) H 02/18/20 04:23 Estimated GFR 5 ml/min 02/18/20 04:23 BUN/Creatinine Ratio 5 % 02/18/20 04:23 Glucose 66 mg/dL (65-100) 02/18/20 21:02 POC Glucose 105 (70-105) 02/19/20 06:07 Hemoglobin A1c 9.1 % (4-6) H 02/17/20 Unknown Calcium 8.1 mg/dL (8.4-10.2) L 02/18/20 04:23 Urine Color Yellow (Yellow) 02/18/20 04:00 Urine Turbidity Slightly-cloudy (Clear) 02/18/20 04:00 Urine pH 8.0 (5.0-7.0) H 02/18/20 04:00 Ur Specific [place] 1.011 (1.003-1.030) 02/18/20 04:00 Urine Protein 300 mg/dl mg/dL (Negative) 02/18/20 04:00 Urine Glucose (UA) 50 mg/dL (Negative) 02/18/20 04:00 Urine Ketones Neg mg/dL (Negative) 02/18/20 04:00 Urine Blood Sm (Negative) 02/18/20 04:00 Urine Nitrite Neg (Negative) 02/18/20 04:00 Urine Bilirubin Neg (Negative) 02/18/20 04:00 Urine Urobilinogen < 2.0 mg/dL (<2.0) 02/18/20 04:00 Ur Leukocyte Esterase Mod (Negative) 02/18/20 04:00 Urine WBC (Auto) 35.0 /HPF (0.0-6.0) H 02/18/20 04:00 Urine RBC (Auto) 19.0 /HPF (0.0-6.0) 02/18/20 04:00 U Epithel Cells (Auto) 9.0 /HPF (0-13.0) 02/18/20 04:00 Urine Bacteria (Auto) 2+ /HPF (Negative) 02/18/20 04:00 Urine Mucus Few /HPF 02/18/20 04:00 Goldstein/IV: Voiding Method External Female Catheter IV Catheter Type [Right INT / Saline Lock Forearm] IV Catheter Type [Right INT / Saline Lock Femoral] Active Medications - Current Medications Current Medications: Generic Name Dose Route Start Last Admin Trade Name Freq PRN Reason Stop Dose Admin Acetaminophen 650 mg 02/17/20 23:35 Tylenol PO Q4H PRN Pain MILD(1-3)/Fever >100.5/COLLINS Alprazolam 0.5 mg 02/19/20 22:00 Xanax PO QHS PRN Anxiety Dextrose 50 ml 02/18/20 13:00 02/19/20 03:21 D50w (25gm) Syringe IV 15 ml Q30MIN PRN Administration Hypoglycemia Protocol Hydralazine HCl 5 mg 02/19/20 03:38 02/19/20 03:45 Apresoline IV 5 mg Q6H PRN Administration Hypertension Dextrose 1,000 mls @ 100 mls/hr 02/18/20 07:00 02/19/20 05:52 D10w IV 100 mls/hr DIRECT COBY Administration Sodium Chloride 100 mls @ 999 mls/hr 02/19/20 07:56 Nacl 0.9% IV KIRSTEN PRN Hypotension Magnesium Hydroxide 30 ml 02/17/20 23:35 Milk Of Magnesia PO Q4H PRN Constipation Morphine Sulfate 2 mg 02/17/20 23:35 02/18/20 12:20 Morphine IV 2 mg Q4H PRN Administration Pain, Moderate (4-6) Ondansetron HCl 4 mg 02/17/20 23:35 Zofran IV Q8H PRN Nausea And Vomiting Sodium Chloride 10 ml 02/18/20 10:00 02/18/20 22:02 Sodium Chloride Flush Syringe 10 Ml IV 10 ml BID COBY Administration Sodium Chloride 10 ml 02/17/20 23:35 Sodium Chloride Flush Syringe 10 Ml IV PRN PRN LINE FLUSH Nutrition/Malnutrition Assess - Dietary Evaluation Nutrition/Malnutrition Findings: Nutrition Notes Start: 02/18/20 11:18 Freq: Status: Active Protocol: Document 02/18/20 11:18 LM (Rec: 02/18/20 11:34 LM [id number]) Nutrition Notes Need for Assessment generated from: MD Order,frame nailer,MST, Education Initial or Follow up Assessment Current Diagnosis Diabetes,Hypertension Other Pertinent Diagnosis L groin and great toe wound, anemia Current Diet cardiac/consistent CHO Labs/Tests Na 135 BUN 50 Cr 10.5 BG 45 Pertinent Medications D10w at 75ml/hr Height 6 ft Weight 102.058 kg [place] Body Weight (kg) 72.72 BMI 30.5 Weight Status Obese Subjective/Other Information MD consult for diet education; RN screen for MST, new DM, and skin risk. Pt with recent dx of DM and has hypoglycemia. Unable to reach pt. Pt was d/ c 2 days ago and was dx with COVID-19 but tested negative before d/c'd. Last wt from that visit was 126kg. Unsure of accurate wt of pt. Pt currently with weak director of religious activities strength. Burn Absent Trauma Absent Minimum of two criteria No Reduced Fruit I Farmworker Strength Measurably Reduced (severe) #1 Nutrition Diagnosis Increased nutrient needs ( specify in comment below) Comments: Protein Etiology Wound healing As Evidenced by Signs and Symptoms Pt with L groin and great toe wounds Is patient on ventilator? No Is Patient Ambulatory and/or Out of Bed No REE-(Harris-St. Jeor-confined to bed) 2224.752 Kcal/Kg value to use for calculation 19 Approximate Energy Requirements Using 1939 kcal/Kg Calculation Used for Recommendations Kcal/kg Additional Notes Protein: 109-131g (1.25-1.5g/ kg using AdjBW 87kg) Fluid: 1 ml/kcal Nutrition Intervention Change Diet Order: continue current diet Goal #1 Meet at least 80% of energy and protein needs Goal #2 Wound healing Anticipated Discharge Needs: cardiac/consistent CHO Follow-Up By: 02/20/20 Additional Comments F/U for intakes, ONS needs, wt
--- NOTE | 2020-02-19 10:37 | Consultation ---
History of Present Illness - Reason for Consult Consult date: 02/19/20 acute renal failure Requesting physician: MARSHAL PATEL - History of Present Illness This is a 29 yo AAF with a recent hospitalization secondary to infection of her toe and thigh abscess for which she had incision and drainage. Course was complicated by severe sepsis and pneumonia in the setting of confirmed COVID-19 infection. Patient also developed acute renal failure secondary to ATN and was initiated on hemodialysis. Patient was discharged from the hospital 2 days ago. Patient brought to the emergency room via EMS from home after patient found to be hypoglycemic with a blood sugar of 40. Patient received dextrose 5% by EMS. Patient was discharged with glipizide/metformin. Renal consult is requested for management of HD dependent CIPRIANO. Pt's receives outpatient HD at [facility] on TTS schedule. Past History Past Medical History: diabetes, hypertension Past Surgical History: No surgical history Social history: no significant social history Family history: no significant family history Medications and Allergies Allergies Allergy/AdvReac Type Severity Reaction Status Date / Time No Known Allergies Allergy Verified 09/12/18 00:37 Home Medications Medication Instructions Recorded Confirmed Last Taken Type ALPRAZolam [Xanax TAB] 0.5 mg PO QHS PRN #60 tablet 02/15/20 02/18/20 Unknown Rx Acetaminophen [Acetaminophen TAB] 650 mg PO Q4H PRN tablet 02/15/20 02/18/20 Unknown Rx Antacid [Alum-Mag Hydrox-Simeth 15 ml PO Q4H PRN oral.liqd 02/15/20 02/18/20 Unknown Rx [id number]/[id number]] Famotidine [Pepcid] 20 mg PO QDAY #30 tablet 02/15/20 02/18/20 Unknown Rx Lipase/Protease/Amylase [Pancreaze 1 each FEEDTUBE PRN PRN #7 capsule 02/15/20 02/18/[address] 10,500 Unit] Magnesium Hydroxide [Milk of 30 ml PO Q4H PRN oral.liqd 02/15/20 02/18/20 Unkn own Rx Magnesia] glipiZIDE-Metformin 5-500 mg 500 mg PO BID #60 02/15/20 02/18/20 Unknown Rx oxyCODONE /ACETAMINOPHEN [Percocet 1 tab PO Q4HR PRN #20 tab 02/18/20 Unknown Rx 5/325] Active Meds: Active Medications Acetaminophen (Tylenol) 650 mg PO Q4H PRN PRN Reason: Pain MILD(1-3)/Fever >100.5/COLLINS Alprazolam (Xanax) 0.5 mg PO QHS PRN PRN Reason: Anxiety Dextrose (D50w (25gm) Syringe) 50 ml IV Q30MIN PRN; Protocol PRN Reason: Hypoglycemia Last Admin: 02/19/20 03:21 Dose: 15 ml Documented by: Hydralazine HCl (Apresoline) 5 mg IV Q6H PRN PRN Reason: Hypertension Last Admin: 02/19/20 03:45 Dose: 5 mg Documented by: Dextrose (D10w) 1,000 mls @ 100 mls/hr IV DIRECT COUNT INCLUDES THE [facility] Last Admin: 02/19/20 05:52 Dose: 100 mls/hr Documented by: Sodium Chloride (Nacl 0.9%) 100 mls @ 999 mls/hr IV KIRSTEN PRN PRN Reason: Hypotension Magnesium Hydroxide (Milk Of Magnesia) 30 ml PO Q4H PRN PRN Reason: Constipation Morphine Sulfate (Morphine) 2 mg IV Q4H PRN PRN Reason: Pain, Moderate (4-6) Last Admin: 02/18/20 12:20 Dose: 2 mg Documented by: Ondansetron HCl (Zofran) 4 mg IV Q8H PRN PRN Reason: Nausea And Vomiting Sodium Chloride (Sodium Chloride Flush Syringe 10 Ml) 10 ml IV BID COUNT INCLUDES THE [facility] Last Admin: 02/18/20 22:02 Dose: 10 ml Documented by: Sodium Chloride (Sodium Chloride Flush Syringe 10 Ml) 10 ml IV PRN PRN PRN Reason: LINE FLUSH Review of Systems All systems: negative Constitutional: fatigue, weakness Neurological: weakness Exam - Vital Signs Vital signs: Vital Signs BP 161/102 02/17/20 21:14 - General Appearance General appearance: well-developed, well-nourished, appears stated age, obese EENT: ATNC, PERRL, mucous membranes moist Neck: Present: neck supple Respiratory: Clear to Ascultation Heart: regular, S1S2 Gastrointestinal: Present: normoactive bowel sounds, obese Integumentary: no rash, other (no edema ) Neurologic: no focal deficit, alert and oriented x3, strength 5/5, CN 3-12 intact Psychiatric: mood/affect appropriate, cooperative Results - Lab Results 02/18/20 04:23 02/18/20 21:02 Most recent lab results Calcium 8.1 mg/dL (8.4-10.2) L 02/18/20 04:23 Laboratory Tests 02/17/20 02/17/20 02/18/20 21:55 Unknown 04:00 Sodium Potassium Chloride Carbon Dioxide Anion Gap BUN Creatinine Estimated GFR BUN/Creatinine Ratio Glucose 33 L* Hemoglobin A1c 9.1 H Calcium Urine Color Yellow Urine Turbidity Slightly-cloudy Urine pH 8.0 H Ur Specific [place] 1.011 Urine Protein 300 mg/dl Urine Glucose (UA) 50 Urine Ketones Neg Urine Blood Sm Urine Nitrite Neg Urine Bilirubin Neg Urine Urobilinogen < 2.0 Ur Leukocyte Esterase Mod Urine WBC (Auto) 35.0 H Urine RBC (Auto) 19.0 U Epithel Cells (Auto) 9.0 Urine Bacteria (Auto) 2+ Urine Mucus Few 02/18/20 04:23 Sodium 135 L Potassium 4.4 Chloride 97.2 L Carbon Dioxide 22 Anion Gap 20 BUN 50 H Creatinine 10.5 H Estimated GFR 5 BUN/Creatinine Ratio 5 Glucose 35 L* Hemoglobin A1c Calcium 8.1 L Urine Color Urine Turbidity Urine pH Ur Specific [place] Urine Protein Urine Glucose (UA) Urine Ketones Urine Blood Urine Nitrite Urine Bilirubin Urine Urobilinogen Ur Leukocyte Esterase Urine WBC (Auto) Urine RBC (Auto) U Epithel Cells (Auto) Urine Bacteria (Auto) Urine Mucus Assessment and Plan - Patient Problems (1) Acute kidney injury (CIPRIANO) with acute tubular necrosis (ATN) Current Visit: No Status: Acute Plan to address problem: no signs of renal recovery, will continues HD on TTS schedule with target UF 2- 3L as tolerated. Will monitor lytes/renal parameters and make further recommendations. avoid nephrotoxins, NSAIDS, IV contrast (2) Hypoglycemia associated with type 2 diabetes mellitus Current Visit: Yes Status: Acute Plan to address problem: cont D10, management as per primary attending (3) Hypertension Current Visit: No Status: Acute Qualifiers: Qualified Code(s): I10 - Essential (primary) hypertension Plan to address problem: monitor BP on current meds (4) Anemia in chronic illness Current Visit: Yes Status: Acute Plan to address problem: cont EPO with HD
[2020-02-19] MEDS: ONDANSETRON 4 MG/2 ML INJ IV PRN ×2 (15:08→23:37)
[2020-02-19] MEDS ORDERED: EPOETIN ALFA 10,000 UNIT/1 ML INJ SUB-Q SCH (18:00)
[2020-02-19] MEDS ORDERED: SODIUM CHLORIDE*PRIMING MACHINE ONLY FOR DIALYSIS MC ONE (19:32)
[2020-02-19] MEDS ORDERED: ALPRAZolam 0.5 MG TAB PO PRN (22:00)
--- NOTE | 2020-02-20 10:20 | Progress Note ---
Assessment and Plan - Patient Problems (1) Acute kidney injury (CIPRIANO) with acute tubular necrosis (ATN) Current Visit: No Status: Acute Plan to address problem: no signs of renal recovery, continue HD on TTS schedule with target UF 2-3L as tolerated. Will monitor lytes/renal parameters and make further recommendations. avoid nephrotoxins, NSAIDS, IV contrast (2) Hypoglycemia associated with type 2 diabetes mellitus Current Visit: Yes Status: Acute Plan to address problem: cont D10, management as per primary attending. glipizide/metformin stopped. (3) Hypertension Current Visit: No Status: Acute Qualifiers: Qualified Code(s): I10 - Essential (primary) hypertension Plan to address problem: monitor BP on current meds (4) Anemia in chronic illness Current Visit: Yes Status: Acute Plan to address problem: cont EPO with HD Subjective Date of service: 02/20/20 Principal diagnosis: Hypoglycemia Interval history: Patient awake, alert, in no acute distress Objective - Vital Signs Vital signs: Vital Signs - 12hr 02/19/20 02/19/20 02/20/20 22:25 22:57 03:33 Temperature 98.6 F 98.4 F Pulse Rate 114 H 97 H Pulse Rate [ 95 H Apical] Respiratory 20 18 18 Rate Blood Pressure 107/64 114/72 O2 Sat by Pulse 100 98 100 Oximetry 02/20/20 08:23 Temperature 98.3 F Pulse Rate 96 H Pulse Rate [ Apical] Respiratory 18 Rate Blood Pressure 109/72 O2 Sat by Pulse 100 Oximetry - General Appearance General appearance: well-developed, well-nourished, appears stated age, obese EENT: ATNC, PERRL, mucous membranes moist Neck: no JVD Respiratory: Present: Decreased Breath Sounds Cardiology: regular, S1S2 Gastrointestinal: normoactive bowel sounds, obese Integumentary: no rash, other (no pitting edema ) Neurologic: no focal deficit, alert and oriented x3, strength 5/5, CN 3-12 intact Psychiatric: mood/affect appropriate, cooperative - Lab 02/18/20 04:23 02/18/20 21:02 Most recent lab results Calcium 8.1 mg/dL (8.4-10.2) L 02/18/20 04:23 Medications & Allergies - Medications Allergies/Adverse Reactions: Allergies No Known Allergies Allergy (Verified 09/12/18 00:37) Home Medications: Home Medications Medication Instructions Recorded Confirmed Last Taken Type ALPRAZolam [Xanax TAB] 0.5 mg PO QHS PRN #60 tablet 02/15/20 02/18/20 Unknown Rx Acetaminophen [Acetaminophen TAB] 650 mg PO Q4H PRN tablet 02/15/20 02/18/20 Unknown Rx Antacid [Alum-Mag Hydrox-Simeth 15 ml PO Q4H PRN oral.liqd 02/15/20 02/18/20 Unknown Rx [id number]/[id number]] Famotidine [Pepcid] 20 mg PO QDAY #30 tablet 02/15/20 02/18/20 Unknown Rx Lipase/Protease/Amylase [Pancreaze 1 each FEEDTUBE PRN PRN #7 capsule 02/15/20 02/18/[address] 10,500 Unit] Magnesium Hydroxide [Milk of 30 ml PO Q4H PRN oral.liqd 02/15/20 02/18/20 Unknown Rx Magnesia] glipiZIDE-Metformin 5-500 mg 500 mg PO BID #60 02/15/20 02/18/20 Unknown Rx oxyCODONE /ACETAMINOPHEN [Percocet 1 tab PO Q4HR PRN #20 tab 02/18/20 Unknown Rx 5/325] Active Medications: Generic Name Dose Route Start Last Admin Trade Name Freq PRN Reason Stop Dose Admin Acetaminophen 650 mg 02/17/20 23:35 Tylenol PO Q4H PRN Pain MILD(1-3)/Fever >100.5/COLLINS Alprazolam 0.5 mg 02/19/20 22:00 Xanax PO QHS PRN Anxiety Dextrose 50 ml 02/18/20 13:00 02/19/20 03:21 D50w (25gm) Syringe IV 15 ml Q30MIN PRN Administration Hypoglycemia Protocol Epoetin Iam 10,000 unit 02/19/20 18:00 Procrit SUB-Q 02/26/20 17:59 KIRSTEN COBY Hydralazine HCl 5 mg 02/19/20 03:38 02/19/20 03:45 Apresoline IV 5 mg Q6H PRN Administration Hypertension Dextrose 1,000 mls @ 100 mls/hr 02/18/20 07:00 02/19/20 22:43 D10w IV 75 mls/hr DIRECT COBY Administration Sodium Chloride 100 mls @ 999 mls/hr 02/19/20 07:56 Nacl 0.9% IV KIRSTEN PRN Hypotension Magnesium Hydroxide 30 ml 02/17/20 23:35 Milk Of Magnesia PO Q4H PRN Constipation Morphine Sulfate 2 mg 02/17/20 23:35 02/18/20 12:20 Morphine IV 2 mg Q4H PRN Administration Pain, Moderate (4-6) Ondansetron HCl 4 mg 02/17/20 23:35 02/19/20 23:37 Zofran IV 4 mg Q8H PRN Administration Nausea And Vomiting Sodium Chloride 10 ml 02/18/20 10:00 02/20/20 09:27 Sodium Chloride Flush Syringe 10 Ml IV 10 ml BID COBY Administration Sodium Chloride 10 ml 02/17/20 23:35 Sodium Chloride Flush Syringe 10 Ml IV PRN PRN LINE FLUSH
[2020-02-20] MEDS: INSULIN LISPRO 100 UNIT/ML SUB-Q SCH ×3 (12:00→22:56)
[2020-02-20] MEDS: DEXTROSE 10% IN WATER 1,000 ML IV SCH (12:00)
--- NOTE | 2020-02-20 14:44 | Progress Note ---
Assessment and Plan Assessment and plan: --Abscess of left thigh Current Visit: No Status: Acute Abscess left thigh actually looks good patient has wound VAC to the area. Continue wound care, continue wound VAC at DC in 1 to 2 days. -- Open wound of great toe Current Visit: No Status: Acute Local wound care. -- Acute kidney injury (CIPRIANO) with acute tubular necrosis (ATN) Current Visit: No Status: Acute Acute kidney injury turned into chronic kidney disease initiated hemodialysis. Continue hemodialysis TTS , nephrology following --Anemia Current Visit: Yes Status: Acute Anemia secondary to chronic disease Monitor H&H and transfuse as needed -- Hypoglycemia associated with type 2 diabetes mellitus Current Visit: Yes Status: Acute Hypoglycemia resolved, Accu-Chek sliding scale coverage ADA diet Insulin as needed --Pneumonia due to COVID-19 virus Current Visit: No Status: Acute Was positive for COVID-19 on last visit we will follow-up chest x-ray. No symptoms now no fever chills no nausea vomiting no cough. Supportive care --Full code status Current Visit: No Status: Acute Monitor closely and adjust management as needed Follow wound care/wound surgeon recommendations Possible discharge in 1 to 2 days if stable Try to call patient's mother at [phone] to discuss about patient's condition treatment and discharge planning, left a message asked to call back. History Interval history: Patient seen and examined at the bedside by me Patient's chart , medications tests and reports reviewed Patient feels slightly better, anxious to go home No new complaints Vital signs reviewed Hospitalist Physical - Constitutional Vitals: Temp Pulse Resp BP Pulse Ox 98.3 F 81 19 116/75 100 02/20/20 11:58 02/20/20 13:02 02/20/20 11:58 02/20/20 11:58 02/20/20 11:58 General appearance: Present: no acute distress, well-nourished, obese, other (Generalized weakness but alert) - EENT Eyes: Present: PERRL, EOM intact - Neck Neck: Present: supple, normal ROM - Respiratory Respiratory effort: normal Respiratory: bilateral: diminished, negative: rales, rhonchi, wheezing - Cardiovascular Rhythm: regular Heart Sounds: Present: S1 & S2 - Extremities Extremities: no ischemia, No edema, abnormal (Wound with wound VAC in place) - Abdominal General gastrointestinal: soft, non-tender, non-distended, normal bowel sounds - Integumentary Integumentary: Present: clear, warm - Psychiatric Psychiatric: appropriate mood/affect, cooperative - Neurologic Neurologic: CNII-XII intact, moves all extremities Results - Labs CBC & Chem 7: 02/18/20 04:23 02/18/20 21:02 Labs: Laboratory Last Values WBC 6.2 K/mm3 (4.5-11.0) 02/18/20 04:23 RBC 3.22 M/mm3 (3.65-5.03) L 02/18/20 04:23 Hgb 8.4 gm/dl (10.1-14.3) L 02/18/20 04:23 Hct 26.5 % (30.3-42.9) L 02/18/20 04:23 MCV 82 fl (79-97) 02/18/20 04:23 MCH 26 pg (28-32) L 02/18/20 04:23 MCHC 32 % (30-34) 02/18/20 04:23 RDW 15.5 % (13.2-15.2) H 02/18/20 04:23 Plt Count 225 K/mm3 (140-440) 02/18/20 04:23 Lymph % (Auto) 21.4 % (13.4-35.0) 02/17/20 21:55 [place] % (Auto) Drum Drier 02/18/20 04:23 Eos % (Auto) 13.6 % (0.0-4.3) H 02/17/20 21:55 Baso % (Auto) 2.4 % (0.0-1.8) H 02/17/20 21:55 Lymph # 1.3 K/mm3 (1.2-5.4) 02/17/20 21:55 [place] # 0.9 K/mm3 (0.0-0.8) H 02/17/20 21:55 Eos # 0.8 K/mm3 (0.0-0.4) H 02/17/20 21:55 Baso # 0.2 K/mm3 (0.0-0.1) H 02/17/20 21:55 Add Manual Diff Complete 02/18/20 04:23 Total Counted 100 02/18/20 04:23 Seg Neutrophils % 48.1 % (40.0-70.0) 02/17/20 21:55 Seg Neuts % (Manual) 66.0 % (40.0-70.0) 02/18/20 04:23 Band Neutrophils % 3.0 % 02/18/20 04:23 Lymphocytes % (Manual) 11.0 % (13.4-35.0) L 02/18/20 04:23 Reactive Lymphs % (Man) 0 % 02/18/20 04:23 Monocytes % (Manual) 8.0 % (0.0-7.3) H 02/18/20 04:23 Eosinophils % (Manual) 11.0 % (0.0-4.3) H 02/18/20 04:23 Basophils % (Manual) 1.0 % (0.0-1.8) 02/18/20 04:23 Metamyelocytes % 0 % 02/18/20 04:23 Myelocytes % 0 % 02/18/20 04:23 Promyelocytes % 0 % 02/18/20 04:23 Blast Cells % 0 % 02/18/20 04:23 Nucleated RBC % Not Reportable 02/18/20 04:23 Seg Neutrophils # 3.0 K/mm3 (1.8-7.7) 02/17/20 21:55 Seg Neutrophils # Man 4.1 K/mm3 (1.8-7.7) 02/18/20 04:23 Band Neutrophils # 0.2 K/mm3 02/18/20 04:23 Lymphocytes # (Manual) 0.7 K/mm3 (1.2-5.4) L 02/18/20 04:23 Abs React Lymphs (Man) 0.0 K/mm3 02/18/20 04:23 Monocytes # (Manual) 0.5 K/mm3 (0.0-0.8) 02/18/20 04:23 Eosinophils # (Manual) 0.7 K/mm3 (0.0-0.4) H 02/18/20 04:23 Basophils # (Manual) 0.1 K/mm3 (0.0-0.1) 02/18/20 04:23 Metamyelocytes # 0.0 K/mm3 02/18/20 04:23 Myelocytes # 0.0 K/mm3 02/18/20 04:23 Promyelocytes # 0.0 K/mm3 02/18/20 04:23 Blast Cells # 0.0 K/mm3 02/18/20 04:23 WBC Morphology Not Reportable 02/18/20 04:23 Hypersegmented Neuts Not Reportable 02/18/20 04:23 Hyposegmented Neuts Not Reportable 02/18/20 04:23 Hypogranular Neuts Not Reportable 02/18/20 04:23 Smudge Cells Not Reportable 02/18/20 04:23 Toxic Granulation Not Reportable 02/18/20 04:23 Toxic Vacuolation Not Reportable 02/18/20 04:23 Dohle Bodies Not Reportable 02/18/20 04:23 Pelger-Huet Anomaly Not Reportable 02/18/20 04:23 Barbie Rods Not Reportable 02/18/20 04:23 Platelet Estimate Consistent w auto 02/18/20 04:23 Clumped Platelets Not Reportable 02/18/20 04:23 Plt Clumps, EDTA Not Reportable 02/18/20 04:23 Large Platelets Not Reportable 02/18/20 04:23 Giant Platelets Not Reportable 02/18/20 04:23 Platelet Satelliting Not Reportable 02/18/20 04:23 Plt Morphology Comment Not Reportable 02/18/20 04:23 RBC Morphology Normal 02/18/20 04:23 Dimorphic RBCs Not Reportable 02/18/20 04:23 Polychromasia Not Reportable 02/18/20 04:23 Hypochromasia Not Reportable 02/18/20 04:23 Poikilocytosis Not Reportable 02/18/20 04:23 Anisocytosis Not Reportable 02/18/20 04:23 Microcytosis Not Reportable 02/18/20 04:23 Macrocytosis Not Reportable 02/18/20 04:23 Spherocytes Not Reportable 02/18/20 04:23 Pappenheimer Bodies Not Reportable 02/18/20 04:23 Sickle Cells Not Reportable 02/18/20 04:23 Target Cells Not Reportable 02/18/20 04:23 Tear Drop Cells Not Reportable 02/18/20 04:23 Ovalocytes Not Reportable 02/18/20 04:23 Helmet Cells Not Reportable 02/18/20 04:23 [place] Bodies Not Reportable 02/18/20 04:23 Roby Rings Not Reportable 02/18/20 04:23 [place] Cells Not Reportable 02/18/20 04:23 Bite Cells Not Reportable 02/18/20 04:23 Crenated Cell Not Reportable 02/18/20 04:23 Elliptocytes Not Reportable 02/18/20 04:23 Acanthocytes (Spur) Not Reportable 02/18/20 04:23 Rouleaux Not Reportable 02/18/20 04:23 Hemoglobin C Crystals Not Reportable 02/18/20 04:23 Schistocytes Not Reportable 02/18/20 04:23 Malaria parasites Not Reportable 02/18/20 04:23 Ras Bodies Not Reportable 02/18/20 04:23 Hem Pathologist Commnt No 02/18/20 04:23 PT 13.4 Sec. (12.2-14.9) 02/18/20 04:23 INR 1.01 (0.87-1.13) 02/18/20 04:23 APTT 33.7 Sec. (24.2-36.6) 02/18/20 04:23 Sodium 135 mmol/L (137-145) L 02/18/20 04:23 Potassium 4.4 mmol/L (3.6-5.0) 02/18/20 04:23 Chloride 97.2 mmol/L (98-107) L 02/18/20 04:23 Carbon Dioxide 22 mmol/L (22-30) 02/18/20 04:23 Anion Gap 20 mmol/L 02/18/20 04:23 BUN 50 mg/dL (7-17) H 02/18/20 04:23 Creatinine 10.5 mg/dL (0.7-1.2) H 02/18/20 04:23 Estimated GFR 5 ml/min 02/18/20 04:23 BUN/Creatinine Ratio 5 % 02/18/20 04:23 Glucose 66 mg/dL (65-100) 02/18/20 21:02 POC Glucose 156 (70-105) H 02/20/20 10:04 Hemoglobin A1c 9.1 % (4-6) H 02/17/20 Unknown Calcium 8.1 mg/dL (8.4-10.2) L 02/18/20 04:23 Urine Color Yellow (Yellow) 02/18/20 04:00 Urine Turbidity Slightly-cloudy (Clear) 02/18/20 04:00 Urine pH 8.0 (5.0-7.0) H 02/18/20 04:00 Ur Specific Axis 1.011 (1.003-1.030) 02/18/20 04:00 Urine Protein 300 mg/dl mg/dL (Negative) 02/18/20 04:00 Urine Glucose (UA) 50 mg/dL (Negative) 02/18/20 04:00 Urine Ketones Neg mg/dL (Negative) 02/18/20 04:00 Urine Blood Sm (Negative) 02/18/20 04:00 Urine Nitrite Neg (Negative) 02/18/20 04:00 Urine Bilirubin Neg (Negative) 02/18/20 04:00 Urine Urobilinogen < 2.0 mg/dL (<2.0) 02/18/20 04:00 Ur Leukocyte Esterase Mod (Negative) 02/18/20 04:00 Urine WBC (Auto) 35.0 /HPF (0.0-6.0) H 02/18/20 04:00 Urine RBC (Auto) 19.0 /HPF (0.0-6.0) 02/18/20 04:00 U Epithel Cells (Auto) 9.0 /HPF (0-13.0) 02/18/20 04:00 Urine Bacteria (Auto) 2+ /HPF (Negative) 02/18/20 04:00 Urine Mucus Few /HPF 02/18/20 04:00 Nasal Screen MRSA (PCR) Negative (Negative) 02/18/20 11:07 Microbiology: Microbiology 02/18/20 04:00 Urine,Clean Catch Urine Culture - Final Goldstein/IV: Voiding Method External Female Catheter IV Catheter Type [Left Forearm Peripheral IV ] IV Catheter Type [Right Chest] VAS Cath IV Catheter Type [Right INT / Saline Lock Forearm] IV Catheter Type [Right INT / Saline Lock Femoral] Active Medications - Current Medications Current Medications: Generic Name Dose Route Start Last Admin Trade Name Freq PRN Reason Stop Dose Admin Acetaminophen 650 mg 02/17/20 23:35 Tylenol PO Q4H PRN Pain MILD(1-3)/Fever >100.5/COLLINS Alprazolam 0.5 mg 02/19/20 22:00 Xanax PO QHS PRN Anxiety Dextrose 50 ml 02/18/20 13:00 02/19/20 03:21 D50w (25gm) Syringe IV 15 ml Q30MIN PRN Administration Hypoglycemia Protocol Epoetin Iam 10,000 unit 02/19/20 18:00 Procrit SUB-Q 02/26/20 17:59 KIRSTEN COBY Hydralazine HCl 5 mg 02/19/20 03:38 02/19/20 03:45 Apresoline IV 5 mg Q6H PRN Administration Hypertension Dextrose 1,000 mls @ 100 mls/hr 02/18/20 07:00 02/20/20 12:00 D10w IV 75 mls/hr DIRECT COBY Administration Sodium Chloride 100 mls @ 999 mls/hr 02/19/20 07:56 Nacl 0.9% IV KIRSTEN PRN Hypotension Insulin Human Lispro 0 unit 02/20/20 11:30 02/20/20 12:00 Humalog SUB-Q 2 unit ACHS COBY Administration Protocol Magnesium Hydroxide 30 ml 02/17/20 23:35 Milk Of Magnesia PO Q4H PRN Constipation Morphine Sulfate 2 mg 02/17/20 23:35 02/18/20 12:20 Morphine IV 2 mg Q4H PRN Administration Pain, Moderate (4-6) Ondansetron HCl 4 mg 02/17/20 23:35 02/19/20 23:37 Zofran IV 4 mg Q8H PRN Administration Nausea And Vomiting Sodium Chloride 10 ml 02/18/20 10:00 02/20/20 09:27 Sodium Chloride Flush Syringe 10 Ml IV 10 ml BID COBY Administration Sodium Chloride 10 ml 02/17/20 23:35 Sodium Chloride Flush Syringe 10 Ml IV PRN PRN LINE FLUSH Nutrition/Malnutrition Assess - Dietary Evaluation Nutrition/Malnutrition Findings: Nutrition Notes Start: 02/18/20 11:18 Freq: Status: Active Protocol: Document 02/20/20 13:14 LM (Rec: 02/20/20 13:18 LM [id number]) Nutrition Notes Initial or Follow up Reassessment Current Diagnosis Diabetes,Hypertension Other Pertinent Diagnosis L groin and great toe wound, anemia Current Diet cardiac/consistent CHO Labs/Tests POC glu 156 Pertinent Medications Reviewed Height 6 ft Weight 102.058 kg Duff Body Weight (kg) 72.72 BMI 30.5 Weight Status Obese Subjective/Other Information Pt not answering phone. 50% intakes documented for breakfast and lunch. Percent of energy/protein needs met: 51%/38% Burn Absent Trauma Absent Current % PO Fair (50-74%) Minimum of two criteria No Reduced Customer Support Consultant Strength Measurably Reduced (severe) #1 Nutrition Diagnosis Increased nutrient needs ( specify in comment below) Diagnosis Progress(for reassessment Continues documentation) Is patient on ventilator? No Is Patient Ambulatory and/or Out of Bed No REE-(Vilas-St. Jeor-confined to bed) 2224.752 Kcal/Kg value to use for calculation 19 Approximate Energy Requirements Using 1939 kcal/Kg Calculation Used for Recommendations Kcal/kg Additional Notes Protein: 109-131g (1.25-1.5g/ kg using AdjBW 87kg) Fluid: 1 ml/kcal Nutrition Intervention Change Diet Order: continue current diet Add Supplement/Snack (indicate name/kcal Ensure High Protein /protein ) Provides kCal: 320 Provides Protein (gm) 32 Goal #1 Meet at least 80% of energy and protein needs Goal #2 Wound healing Anticipated Discharge Needs: cardiac/consistent CHO Follow-Up By: 02/22/20 Additional Comments F/U for intakes, DM diet ed needs
--- NOTE | 2020-02-20 14:57 | Event Note ---
Date: 02/20/20 Is reported that patient's mother wants to talk to the doctor I called the number given to me by the nurse [phone] Unable to reach the mother, left a voicemail asked to call back to discuss.
[2020-02-21] MEDS: DEXTROSE 10% IN WATER 1,000 ML IV SCH (03:34)
[2020-02-21] MEDS: INSULIN LISPRO 100 UNIT/ML SUB-Q SCH (08:00)
[2020-02-21] MEDS: MORPHINE 2 MG/1 ML INJ IV PRN (10:50)
[2020-02-21 12:38] VITALS: BP 120/62
--- NOTE | 2020-02-21 12:54 | Progress Note ---
Assessment and Plan - Patient Problems (1) Acute kidney injury (CIPRIANO) with acute tubular necrosis (ATN) Current Visit: No Status: Acute Plan to address problem: no signs of renal recovery, continue HD on TTS schedule. Will monitor lytes/renal parameters and make further recommendations. avoid nephrotoxins, NSAIDS, IV contrast (2) Hypoglycemia associated with type 2 diabetes mellitus Current Visit: Yes Status: Acute Plan to address problem: cont D10, management as per primary attending. glipizide/metformin stopped. (3) Hypertension Current Visit: No Status: Acute Qualifiers: Qualified Code(s): I10 - Essential (primary) hypertension Plan to address problem: monitor BP on current meds (4) Anemia in chronic illness Current Visit: Yes Status: Acute Plan to address problem: cont EPO with HD Subjective Date of service: 02/21/20 Principal diagnosis: Hypoglycemia Interval history: Patient awake, alert, in no acute distress Objective - Vital Signs Vital signs: Vital Signs - 12hr 02/21/20 02/21/20 02/21/20 04:15 08:08 08:10 Temperature 98.0 F 97.9 F Pulse Rate 81 89 Pulse Rate [ 78 Apical] Pulse Rate [ 78 Left Radial] Respiratory 18 18 18 Rate Blood Pressure 151/76 135/86 Blood Pressure [Right] O2 Sat by Pulse 100 100 99 Oximetry 02/21/20 02/21/20 02/21/20 09:15 09:30 09:45 Temperature 97.9 F Pulse Rate 85 80 87 Pulse Rate [ Apical] Pulse Rate [ Left Radial] Respiratory 18 Rate Blood Pressure 128/73 135/64 134/81 Blood Pressure [Right] O2 Sat by Pulse Oximetry 02/21/20 02/21/20 02/21/20 10:00 10:15 10:30 Temperature Pulse Rate 87 92 H 93 H Pulse Rate [ Apical] Pulse Rate [ Left Radial] Respiratory Rate Blood Pressure 149/91 121/75 143/85 Blood Pressure [Right] O2 Sat by Pulse Oximetry 02/21/20 02/21/20 02/21/20 10:45 10:50 11:00 Temperature Pulse Rate 97 H 93 H Pulse Rate [ Apical] Pulse Rate [ Left Radial] Respiratory 16 Rate Blood Pressure 125/74 115/63 Blood Pressure [Right] O2 Sat by Pulse Oximetry 02/21/20 02/21/20 02/21/20 11:15 11:30 11:45 Temperature Pulse Rate 99 H 100 H 102 H Pulse Rate [ Apical] Pulse Rate [ Left Radial] Respiratory Rate Blood Pressure 104/57 105/58 116/77 Blood Pressure [Right] O2 Sat by Pulse Oximetry 02/21/20 02/21/20 02/21/20 12:00 12:15 12:36 Temperature 97.9 F Pulse Rate 98 H 104 H 98 H Pulse Rate [ Apical] Pulse Rate [ Left Radial] Respiratory 18 Rate Blood Pressure 128/77 121/74 Blood Pressure 128/77 [Right] O2 Sat by Pulse Oximetry 02/21/20 12:37 Temperature Pulse Rate 100 H Pulse Rate [ Apical] Pulse Rate [ Left Radial] Respiratory Rate Blood Pressure 120/62 Blood Pressure [Right] O2 Sat by Pulse Oximetry - General Appearance General appearance: well-developed, well-nourished, appears stated age, obese EENT: ATNC, PERRL, mucous membranes moist Neck: no JVD Respiratory: Present: Clear to Ascultation Cardiology: regular, S1S2 Gastrointestinal: normoactive bowel sounds, obese Integumentary: no rash, other (no edema ) Neurologic: no focal deficit, alert and oriented x3, strength 5/5, CN 3-12 intact Psychiatric: mood/affect appropriate, cooperative - Lab 02/18/20 04:23 02/18/20 21:02 Most recent lab results Calcium 8.1 mg/dL (8.4-10.2) L 02/18/20 04:23 Medications & Allergies - Medications Allergies/Adverse Reactions: Allergies No Known Allergies Allergy (Verified 09/12/18 00:37) Home Medications: Home Medications Medication Instructions Recorded Confirmed Last Taken Type ALPRAZolam [Xanax TAB] 0.5 mg PO QHS PRN #60 tablet 02/15/20 02/18/20 Unknown Rx Acetaminophen [Acetaminophen TAB] 650 mg PO Q4H PRN tablet 02/15/20 02/18/20 Unknown Rx Antacid [Alum-Mag Hydrox-Simeth 15 ml PO Q4H PRN oral.liqd 02/15/20 02/18/20 Unknown Rx [id number]] Famotidine [Pepcid] 20 mg PO QDAY #30 tablet 02/15/20 02/18/20 Unknown Rx Lipase/Protease/Amylase [Pancreaze 1 each FEEDTUBE PRN PRN #7 capsule 02/15/20 02/18/[address] 10,500 Unit] Magnesium Hydroxide [Milk of 30 ml PO Q4H PRN oral.liqd 02/15/20 02/18/20 Unknown Rx Magnesia] glipiZIDE-Metformin 5-500 mg 500 mg PO BID #60 02/15/20 02/18/20 Unknown Rx oxyCODONE /ACETAMINOPHEN [Percocet 1 tab PO Q4HR PRN #20 tab 02/18/20 Unknown Rx 5/325] Active Medications: Generic Name Dose Route Start Last Admin Trade Name Freq PRN Reason Stop Dose Admin Acetaminophen 650 mg 02/17/20 23:35 Tylenol PO Q4H PRN Pain MILD(1-3)/Fever >100.5/COLLINS Alprazolam 0.5 mg 02/19/20 22:00 Xanax PO QHS PRN Anxiety Dextrose 50 ml 02/18/20 13:00 02/19/20 03:21 D50w (25gm) Syringe IV 15 ml Q30MIN PRN Administration Hypoglycemia Protocol Epoetin Iam 10,000 unit 02/19/20 18:00 Procrit SUB-Q 02/26/20 17:59 KIRSTEN COBY Hydralazine HCl 5 mg 02/19/20 03:38 02/19/20 03:45 Apresoline IV 5 mg Q6H PRN Administration Hypertension Dextrose 1,000 mls @ 50 mls/hr 02/18/20 07:00 02/21/20 03:34 D10w IV 75 mls/hr DIRECT COBY Administration Sodium Chloride 100 mls @ 999 mls/hr 02/19/20 07:56 Nacl 0.9% IV KIRSTEN PRN Hypotension Insulin Human Lispro 0 unit 02/20/20 11:30 02/21/20 08:00 Humalog SUB-Q 3 unit ACHS COBY Administration Protocol Magnesium Hydroxide 30 ml 02/17/20 23:35 Milk Of Magnesia PO Q4H PRN Constipation Morphine Sulfate 2 mg 02/17/20 23:35 02/21/20 10:50 Morphine IV 2 mg Q4H PRN Administration Pain, Moderate (4-6) Ondansetron HCl 4 mg 02/17/20 23:35 02/19/20 23:37 Zofran IV 4 mg Q8H PRN Administration Nausea And Vomiting Sodium Chloride 10 ml 02/18/20 10:00 02/20/20 21:01 Sodium Chloride Flush Syringe 10 Ml IV 10 ml BID COBY Administration Sodium Chloride 10 ml 02/17/20 23:35 Sodium Chloride Flush Syringe 10 Ml IV PRN PRN LINE FLUSH
--- NOTE | 2020-02-21 13:35 | Discharge Summary ---
Providers - Providers Date of Admission: 02/17/20 23:08 Date of discharge: 02/21/20 Attending physician: ANDRE SINGLETON 02/17/20 23:37 Consult to Dietitian/Nutrition [CONS] Routine Physician Instructions: Reason For Exam: Reason for Consult: Diet education 02/18/20 08:34 Consult to Wound/ET Nurse [CONS] Routine Reason For Exam: wound eval sacrum, left groin and right great toe 02/18/20 12:16 Consult to Physician [CONS] Routine Comment: Consulting Provider: JOCELYN BECKER Physician Instructions: Reason For Exam: renal fail Hospitalization Condition: Stable Disposition: DC/[place]-06 HOME UNDER HOME HL[facility] Time spent for discharge: 32 min Core Measure Documentation - Palliative Care Palliative Care/ Comfort Measures: Not Applicable - Core Measures Any of the following diagnoses?: none Exam - Constitutional Vitals: Temp Pulse Resp BP Pulse Ox 97.9 F 100 H 18 120/62 99 02/21/20 12:36 02/21/20 12:37 02/21/20 12:36 02/21/20 12:37 02/21/20 08:10 General appearance: Present: no acute distress, well-nourished, obese - EENT Eyes: Present: PERRL, EOM intact - Neck Neck: Present: supple, normal ROM - Respiratory Respiratory effort: normal Respiratory: bilateral: diminished, negative: rales, rhonchi, wheezing - Cardiovascular Rhythm: regular Heart Sounds: Present: S1 & S2 - Extremities Extremities: no ischemia, No edema - Abdominal General gastrointestinal: Present: soft, non-tender, non-distended, normal bowel sounds - Integumentary Integumentary: Present: clear, warm - Musculoskeletal Musculoskeletal: generalized weakness, other (Wound VAC in place) - Psychiatric Psychiatric: appropriate mood/affect, cooperative - Neurologic Neurologic: moves all extremities Plan Activity: advance as tolerated, fall precautions Diet: diabetic, renal Wound: per wound nurse instructions Additional Instructions: Outpatient wound clinic at [facility] per schedule. Follow renal/hemodialysis per schedule TTS. Home health/home wound VAC. Advised follow primary care physician for diabetes management Follow up with: PRIMARY CARE, [Referring] - 3-5 Days SHAUNNA ROLLINS MD [Staff Physician] - 7 Days Prescriptions: Lispro Insulin [HumaLOG] 5 unit SUB-Q ACHS #1 vial oxyCODONE /ACETAMINOPHEN [Percocet 5325] 1 tab PO Q4HR PRN #20 tab PRN Reason: wound vac changes
--- NOTE | 2020-02-21 14:40 | Event Note ---
Date: 02/21/20 There are no acute needed from a surgical perspective for the thigh wound. She was discharged last week with a wound vac and home health. She was readmitted for hypoglycemia. I examined the wound on Tuesday with the wound care nurse and it looks like it is healing very well and is now a wound care issue. Since her insurance does not cover out patient wound care at this facility she will need to follow up at another local facility that takes [employer]. The patient and her mother were explained this again and I am happy to fill out any referral p aperwork to make that happen if need be. I received a call yesterday from home health to fill out some forms for the patient. They said they will fax the paper work this week.
== END 2020-02-21 16:45 | disposition home health service (06) | DRG 638 ==
LOC: ED 21:08 → 4A 23:08
PROVIDERS: ADMIT Internal Medicine Geriatric Medicine; ATTEND Internal Medicine
PROC: 5A1D70Z Performance of Urinary Filtration, Intermittent, Less than 6 Hours Per Day (ICD-10-PCS; principal; 2020-02-19)
PROC: 5A1D70Z Performance of Urinary Filtration, Intermittent, Less than 6 Hours Per Day (ICD-10-PCS; 2020-02-21)
DX: E11.649 Type 2 diabetes mellitus with hypoglycemia without coma (principal); I12.0 Hypertensive chronic kidney disease with stage 5 chronic kidney disease or end stage renal disease; N17.0 Acute kidney failure with tubular necrosis; N18.6 End stage renal disease; E11.22 Type 2 diabetes mellitus with diabetic chronic kidney disease; E66.9 Obesity, unspecified; D63.1 Anemia in chronic kidney disease; Z99.2 Dependence on renal dialysis; Z79.4 Long term (current) use of insulin; Z68.30 Body mass index [BMI] 30.0-30.9, adult
CPT/HCPCS: 36415; 80048; 81001; 82947; 82962; 83036; 85007; 85025; 85610; 85730; 87086; 87641; G0378; J0360; J1815; J2270; J2405; J7030; J7042; J7070